=== PATIENT | male | born 1990 | race Caucasian/White ===

== ENCOUNTER 2023-09-09 19:48 | Emergency (ER) | payer MEDICAID, SELFPAY ==
[2023-09-09 19:47] VITALS: BP 135/81; PULSE 106; RESP 20; TEMP 36.6; O2SAT 95; BMI 39.8
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
[2023-09-09] MEDS: MORPHINE 4MG/ML SYRINGE 4 MG IV (19:57)
--- NOTE | 2023-09-09 19:58 | PC.NURSE ---
pt placed in traction splint per verbal order of ER MD, placed per ems and nursing staff. PMS positive and intact post application and pt notes marked pain relief.
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
--- NOTE | 2023-09-09 20:36 | PC.NURSE ---
Called report to raul REGAN at ED
--- NOTE | 2023-09-09 20:46 | PC.NURSE ---
glucose 121 upon arrival
[2023-09-09 20:51] VITALS: BP 135/79; PULSE 110; RESP 20; TEMP 36.7; O2SAT 94
== END 2023-09-09 20:54 | disposition other institution (70) ==
PROVIDERS: Emergency Provider Student in an Organized Health Care Education/Training Program
DX: S72.352A Displaced comminuted fracture of shaft of left femur, initial encounter for closed fracture (principal); S01.81XA Laceration without foreign body of other part of head, initial encounter; V49.50XA Passenger injured in collision with unspecified motor vehicles in traffic accident, initial encounter
CPT/HCPCS: 71045; 72170; 73551; 96374; 99291

== ENCOUNTER 2024-12-31 17:29 | Emergency (ER) | payer MEDICAID, SELFPAY ==
[2024-12-31 17:41] VITALS: BP 125/95; PULSE 109; O2SAT 99
[2024-12-31 17:44] VITALS: BP 125/95; PULSE 93; RESP 20; TEMP 37; O2SAT 97; BMI 43.6
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
[2024-12-31] MEDS: IBUPROFEN 600 MG TABLET PO (17:59)
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
[2024-12-31 18:24] LABS: Basophils % 0.2 % (0.1-2.0); Eosinophils # 0.2 Kmm3 (0.0-0.4); Eosinophils % 2.3 % (0.1-12.0); Hematocrit 43.1 % (42.0-52.0); Hemoglobin 14.1 g/dL (14.1-18.0); Immature Granulocytes # 0.03 10^3uL; Immature Granulocytes % 0.3 %; Lymphocytes # 2.2 K/mm3 (0.7-4.5); Lymphocytes % 22.7 % (10-50); Mean Corpuscular HGB Conc 32.7 g/dL (31.8-35.4); Mean Corpuscular Hemoglobin 30.1 pg (27.0-31.2); Mean Corpuscular Volume 92.1 fl (80-94); Monocytes # 1.2 K/mm3 (0.1-1.0); Monocytes % 12.2 % (1.7-9.3); Neutrophils # 6.2 K/mm3 (1.8-7.8); Neutrophils % 62.3 % (37.0-80.0); Nucleated Red Blood Cells # 0 10^3/uL; Nucleated Red Blood Cells % 0 %; Platelet Count 248 K/mm3 (142-424); Red Blood Count 4.68 M/mm3 (4.60-6.20); Red Cell Distribution Width 13.2 % (11.5-17.5); White Blood Count 9.9 K/mm3 (4.8-10.8)
[2024-12-31 18:46] LABS: Alanine Aminotransferase 35 U/L (12-78); Albumin Level 3.8 g/dl (3.5-5.0); Albumin/Globulin Ratio 1.6 (1.1-1.8); Alkaline Phosphatase 86 U/L (38-126); Anion Gap 10.1 mEq/L (5-15); Aspartate Amino Transferase 26 U/L (17-59); Bilirubin,Total 0.6 mg/dl (0.2-1.3); Blood Urea Nitrogen 8 mg/dl (9-20); Calcium 8.9 mg/dl (8.4-10.2); Carbon Dioxide 26 mmol/L (22.0-30.0); Chloride 103 mmol/L (98-107); Creatinine Clearance Estimated 171 mL/min (50-200); Estimated Glomerular Filt Rate 128 ml/min (>60); GFR (African American) 155 ML/MIN (>60); Globulin 2.4 g/dL (1.3-3.2); Glucose 95 mg/dl (74-100); Potassium 4.1 mmoL/L (3.5-5.1); Sodium 135 mmol/L (136-145); Total Protein,Serum 6.2 g/dl (6.3-8.2)
[2024-12-31] MEDS: SODIUM CHLORIDE 0.9% 10ML SYR (RAD ONLY) 10 ML IV (19:03)
[2024-12-31] MEDS: 0.9 % SODIUM CHLORIDE 50 ML VIAL 100 ML IV (19:03)
[2024-12-31] MEDS: IOPAMIDOL-370 (76%);100ML BOTTLE 120 ML IV (19:03)
[2024-12-31 19:07] LABS: HIV Combo NEGATIVE (Negative)
[2024-12-31 19:15] LABS: Hepatitis C Ab Qual. W/ RFX NEGATIVE (Negative)
[2024-12-31 19:31] VITALS: BP 133/74; PULSE 79; O2SAT 99
[2024-12-31 21:30] VITALS: PULSE 102; O2SAT 100
--- NOTE | 2024-12-31 21:36 | PC.NURSE ---
Spoke with transfer center to get an update. they have not got to our case just yet. Dr. Beck notified at this time.
[2024-12-31] MEDS: MORPHINE 4MG/ML SYRINGE 4 MG IV (21:46)
[2024-12-31] MEDS: ONDANSETRON 4MG/2ML VIAL 4 MG IV (21:46)
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
[2024-12-31 21:58] VITALS: BP 146/87; PULSE 98; O2SAT 98
--- NOTE | 2024-12-31 22:01 | PC.NURSE ---
Report given to Michelle REGAN at [facility]
[2024-12-31 22:05] VITALS: BP 146/87; PULSE 76; RESP 18; TEMP 36.7; O2SAT 98
--- NOTE | 2024-12-31 22:05 | PC.NURSE ---
Called EMS about transfer at this time.
== END 2024-12-31 22:59 | disposition short-term general hospital (02) ==
PROVIDERS: Physician Assistant; Emergency Provider Emergency Medicine
DX: S82.131A Displaced fracture of medial condyle of right tibia, initial encounter for closed fracture (principal); M79.605 Pain in left leg; Z96.7 Presence of other bone and tendon implants; V29.99XA Rider (driver) (passenger) of other motorcycle injured in unspecified traffic accident, initial encounter
CPT/HCPCS: 72170; 73552; 73562; 73590; 73706; 80053; 85025; 86803; 87389; 96374; 96375; 99285; J2270; J2405; Q9967

== ENCOUNTER 2025-01-15 18:23 | Emergency (ER) | payer MEDICAID, SELFPAY ==
[2025-01-15 18:43] VITALS: BP 121/70; PULSE 130; RESP 20; TEMP 37.1; O2SAT 97; BMI 42.3
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
--- NOTE | 2025-01-15 18:54 | XR_ITS ---
PROCEDURE INFORMATION: Exam: XR Left Tibia and Fibula Exam date and time: 01/15/2025 7:06 PM Age: 34 years old Clinical indication: Other: Postop infection; Additional info: Postop wound infection tibial plateau TECHNIQUE: Imaging protocol: Radiologic exam of the left tibia and fibula. Views: 2 views. COMPARISON: CT ANGIO LE LT 12/31/2024 7:02 PM FINDINGS: Bones/joints: Partially visualized antegrade intramedullary femoral karmen with 2 distal interlocking screws. Medial and lateral plate and screw fixation of the proximal tibia and tibial plateau, with minimally-displaced fracture lucencies in the proximal tibia and tibial plateau. Pin tract within the distal tibial diaphysis. Soft tissues: Increased density and swelling of the medial knee and medial proximal leg subcutaneous tissues, likely edema and/or cellulitis. No soft tissue gas or radiopaque foreign body. IMPRESSION: 1. Increased density and swelling of the medial knee and medial proximal leg subcutaneous tissues, likely edema and/or cellulitis. No soft tissue gas or radiopaque foreign body. 2. Medial and lateral plate and screw fixation of the proximal tibia and tibial plateau, with minimally-displaced fracture lucencies in the proximal tibia and tibial plateau.
[2025-01-15 19:00] VITALS: BP 118/77; PULSE 117; O2SAT 96
--- NOTE | 2025-01-15 19:12 | PC.NURSE ---
Called [facility] for a transfer to , said they would call back
[2025-01-15 19:13] LABS: Basophils % 0.2 % (0.1-2.0); Eosinophils # 0.1 Kmm3 (0.0-0.4); Eosinophils % 0.7 % (0.1-12.0); Hematocrit 42.3 % (42.0-52.0); Immature Granulocytes # 0.14 10^3uL; Immature Granulocytes % 0.7 %; Lymphocytes # 1.9 K/mm3 (0.7-4.5); Lymphocytes % 9.5 % (10-50); Mean Corpuscular HGB Conc 33.1 g/dL (31.8-35.4); Mean Corpuscular Hemoglobin 30.1 pg (27.0-31.2); Mean Platelet Volume 9.6 fl (7.4-10.4); Monocytes # 1.2 K/mm3 (0.1-1.0); Neutrophils # 16.6 K/mm3 (1.8-7.8); Neutrophils % 82.9 % (37.0-80.0); Nucleated Red Blood Cells # 0 10^3/uL; Nucleated Red Blood Cells % 0 %; Platelet Count 442 K/mm3 (142-424); Red Blood Count 4.65 M/mm3 (4.60-6.20); Red Cell Distribution Width 13.1 % (11.5-17.5); Red Cell Distribution Width-SD 43.8 fL
[2025-01-15 19:21] LABS: Lactic Acid 1.5 mmol/L (0.7-2.1)
[2025-01-15] MEDS: PIPERCILLIN/TAZO 3.375 GM in 0.9 % SODIUM CHLORIDE 50 ML IV (19:21)
[2025-01-15] MEDS: KETOROLAC 30MG/ML VIAL 15 MG IV (19:21)
[2025-01-15 19:22] LABS: Alanine Aminotransferase 61 U/L (12-78); Albumin Level 4.1 g/dl (3.5-5.0); Albumin/Globulin Ratio 1.3 (1.1-1.8); Alkaline Phosphatase 117 U/L (38-126); Anion Gap 12.7 mEq/L (5-15); Aspartate Amino Transferase 35 U/L (17-59); Bilirubin,Total 0.6 mg/dl (0.2-1.3); Blood Urea Nitrogen 14 mg/dl (9-20); Calcium 9.1 mg/dl (8.4-10.2); Carbon Dioxide 27 mmol/L (22.0-30.0); Chloride 98 mmol/L (98-107); Creatinine Clearance Estimated 171 mL/min (50-200); Estimated Glomerular Filt Rate 128 ml/min (>60); GFR (African American) 155 ML/MIN (>60); Globulin 3.2 g/dL (1.3-3.2); Glucose 143 mg/dl (74-100); Potassium 4.7 mmoL/L (3.5-5.1); Sodium 133 mmol/L (136-145); Total Protein,Serum 7.3 g/dl (6.3-8.2)
[2025-01-15] MEDS: ACETAMINOPHEN 500MG TAB 1000 MG PO (19:22)
[2025-01-15 19:23] LABS: White Blood Count 20.1 K/mm3 (4.8-10.8)
[2025-01-15 19:27] LABS: C-Reactive Protein 67.9 mg/L (0-4)
[2025-01-15 19:31] VITALS: BP 115/76; PULSE 121; O2SAT 97
[2025-01-15 19:41] LABS: Procalcitonin 0.107 ng/mL (0.0-2.0)
[2025-01-15 19:45] LABS: Erythrocyte Sedimentation Rate 17 mm/hr (0-15)
[2025-01-15] MEDS: VANCOMYCIN HCL 2,250 MG in 0.9 % SODIUM CHLORIDE 250 ML 125 MG IV (19:56)
--- NOTE | 2025-01-15 19:56 | PC.NURSE ---
Transport Ambulance called.
[2025-01-15 20:00] VITALS: BP 134/80; PULSE 118; O2SAT 97
[2025-01-15 20:15] VITALS: PULSE 107; O2SAT 97
[2025-01-15 20:21] VITALS: BP 118/74; PULSE 108; RESP 16; TEMP 38.5; O2SAT 98
== END 2025-01-15 20:23 | disposition short-term general hospital (02) ==
PROVIDERS: Physician Assistant; Emergency Provider Student in an Organized Health Care Education/Training Program
DX: L97.929 Non-pressure chronic ulcer of unspecified part of left lower leg with unspecified severity (principal); T81.49XA Infection following a procedure, other surgical site, initial encounter; F17.210 Nicotine dependence, cigarettes, uncomplicated
CPT/HCPCS: 73590; 80053; 83605; 84145; 85025; 85651; 86140; 87040; 96361; 96365; 96366; 96375; 99291; J1885; J2543; J3370; J7030; J7050

== ENCOUNTER 2025-01-27 10:46 | Outpatient (CLI) | payer MEDICAID, SELFPAY ==
--- OUTSIDE RECORDS SUMMARY | 2024-12-31 23:53 | XMS_ITS | Encounter Summary ---
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 AM EDT OPTIMAL INR RANGES FOR PATIENT ON ORAL ANTICOAGULANT THERAPY Prevention of venous thromboembolism INR 2.0 to 3.0 In patients with heart disease: Atrial fibrillation INR 2.0 to 3.0 Valvular heart disease INR 2.0 to 3.0 Tissue heart valves INR 2.0 to 3.0 Mechanical prosthetic valves INR 2.5 to 3.5 Prevention of recurrent ME INR 2.5 to 3.5 us Miguel Perera MD LAB BLOOD ORDERABLES Final Resu lt [facility] [address] [place] [address] * (ABNORMAL) CMP (01/01/2025 12:35 AM EDT) Glucose, Plasma 110(H) 74 - 99 mg/dL 01/01/2025 1:07 AM EDT [facility] BUN, Plasma 6(L) 7 - 21 mg/dL 01/01/2025 1:07 AM EDT [facility] Creatinine, Plasma 0.72 0.70 - 1.20 mg/dL 01/01/2025 1:07 AM EDT [facility] BUN/Creatinine Ratio 8 01/01/2025 1:07 AM EDT [facility] Sodium, Plasma 136 136 - 145 mmol/L 01/01/2025 1:07 AM EDT [facility] Potassium, Plasma 3.7 3.6 - 4.9 mmol/L 01/01/2025 1:07 AM EDT [facility] Chloride, Plasma 101 97 - 107 mmol/L 01/01/2025 1:07 AM EDT [facility] CO2, Plasma 24 22 - 29 mmol/L 01/01/2025 1:07 AM EDT [facility] Anion Gap 11 6 - 16 mmol/L 01/01/2025 1:07 AM EDT [facility] Total Calcium, Plasma 8.6(L) 8.9 - 10.2 mg/dL 01/01/2025 1:07 AM EDT [facility] Total Protein 6.7 6.3 - 7.9 g/dL 01/01/2025 1:07 AM EDT [facility] Albumin, Plasma 3.8 3.5 - 5.2 g/dL 01/01/2025 1:07 AM EDT [facility] AST, Plasma 17 10 - 50 U/L 01/01/2025 1:07 AM EDT [facility] ALT, Plasma 33 10 - 50 U/L 01/01/2025 1:07 AM EDT [facility] Alkaline Phosphatase, Plasma 98 40 - 115 U/L 01/01/2025 1:07 AM EDT [facility] Total Bilirubin, Plasma 0.4 0.2 - 1.1 mg/dL 01/01/2025 1:07 AM EDT [facility] eGFRcr 122.2 mL/min/1.7 3m*2 01/01/2025 1:07 AM EDT [facility] Comment:Reported eGFRcr in m L/min/1.73m2 is based the CKD-EPI 2020 equation that does not use a race coefficient. Blood Venous blood specimen / Unknown Venipuncture / Unknown 01/01/2025 12:35 AM EDT 01/01/2025 12:41 AM EDT us Miguel Perera MD LAB BLOOD ORDERABLES Final Resu lt [facility] [address] [place] [address] * (ABNORMAL) CBC w/diff (01/01/2025 12:35 AM EDT) WBC Count 9.24 3.70 - 10.30 10*3/uL LAB HEMATOLOGY METHOD 01/01/2025 12:45 AM EDT [facility] RBC Count 4.75 4.60 - 6.10 10*6/uL LAB HEMATOLOGY METHOD 01/01/2025 12:45 AM EDT [facility] HGB 14.2 13.7 - 17.5 g/dL LAB HEMATOLOGY METHOD 01/01/2025 12:45 AM EDT [facility] HCT 43.1 40.0 - 51.0 % LAB HEMATOLOGY METHOD 01/01/2025 12:45 AM EDT [facility] Platelet Count 229 155 - 369 10*3/uL LAB HEMATOLOGY METHOD 01/01/2025 12:45 AM EDT [facility] MCV 91 79 - 98 fL LAB HEMATOLOGY METHOD 01/01/2025 12:45 AM EDT [facility] MCH 29.9 26.0 - 32.0 pg LAB HEMATOLOGY METHOD 01/01/2025 12:45 AM EDT [facility] MCHC 32.9 30.7 - 35.5 g/dL LAB HEMATOLOGY METHOD 01/01/2025 12:45 AM EDT [facility] RDW 13.2 11.5 - 14.5 % LAB HEMATOLOGY METHOD 01/01/2025 12:45 AM EDT [facility] MPV 10.8 8.8 - 12.5 fL LAB HEMATOLOGY METHOD 01/01/2025 12:45 AM EDT [facility] nRBC 0.0 <=0.0 per 100 WBCs LAB HEMATOLOGY METHOD 01/01/2025 12:45 AM EDT [facility] Differential Type Automated LAB HEMATOLOGY METHOD 01/01/2025 12:45 AM EDT [facility] Neutrophils % 66 % LAB HEMATOLOGY METHOD 01/01/2025 12:45 AM EDT [facility] Lymphocytes % 21 % LAB HEMATOLOGY METHOD 01/01/2025 12:45 AM EDT [facility] Monocytes % 10 % LAB HEMATOLOGY METHOD 01/01/2025 12:45 AM EDT [facility] Eosinophils % 3 % LAB HEMATOLOGY METHOD 01/01/2025 12:45 AM EDT [facility] Basophils % 0 % LAB HEMATOLOGY METHOD 01/01/2025 12:45 AM EDT [facility] Immature Granulocytes % 0 % LAB HEMATOLOGY METHOD 01/01/2025 12:45 AM EDT [facility] Neutrophils Absolute 6.03 1.60 - 6.10 10*3/uL LAB HEMATOLOGY METHOD 01/01/2025 12:45 AM EDT [facility] Lymphocytes Absolute 1.95 1.20 - 3.90 10*3/uL LAB HEMATOLOGY METHOD 01/01/2025 12:45 AM EDT [facility] Monocytes Absolute 0.95(H) 0.30 - 0.90 10*3/uL LAB HEMATOLOGY METHOD 01/01/2025 12:45 AM EDT [facility] Eosinophils Absolute 0.25 0.00 - 0.50 10*3/uL LAB HEMATOLOGY METHOD 01/01/2025 12:45 AM EDT [facility] Basophils Absolute 0.03 0.00 - 0.10 10*3/uL LAB HEMATOLOGY METHOD 01/01/2025 12:45 AM EDT [facility] Immature Granulocytes Absolute 0.03 0.00 - 0.06 10*3/uL LAB HEMATOLOGY METHOD 01/01/2025 12:45 AM EDT [facility] Blood Venous blood specimen / Unknown Venipuncture / Unknown 01/01/2025 12:35 AM EDT 01/01/2025 12:41 AM EDT Narrative [facility] - 01/01/2025 12:45 AM EDT Therapeutic decision making should be based on absolute values, rather than percentages. us Miguel Perera MD LAB BLOOD ORDERABLES Final Resu lt Performing Organization Address [facility]/ZIP Co de Phone Number [facility] [address] [place] [address] * Light Green Top (01/01/2025 12:27 AM EDT) Extra Hold for add-ons 01/01/2025 3:02 AM EDT [facility] Comment:Auto resulted. Blood Venous blood specimen / Unknown 01/01/2025 12:27 AM EDT 01/01/2025 12:42 AM EDT us Miguel Perera MD LAB BLOOD ORDERABLES Final Resu lt Performing Organization Address City/[facility]/ZIP Co de Phone Number [facility] [address] [place] [address] * EKG now - STAT (adult) (01/01/2025 12:26 AM EDT) EKG DIAGNOSIS CLASS Normal MUSE ECG Ventricular Rate 81 BPM MUSE ECG Atrial Rate 81 BPM MUSE ECG WY Interval 118 ms MUSE ECG QRSD Interval 106 ms MUSE ECG QT Interval 372 ms MUSE ECG QTC Interval 432 ms MUSE ECG P Gill 55 degrees MUSE ECG R Gill 54 degrees MUSE ECG T Wave Gill 48 degrees MUSE ECG Diagnosis Normal sinus rhythm MUSE ECG Diagnosis Normal ECG MUSE ECG Diagnosis MUSE ECG Diagnosis Confirmed by Johnathan Black ([id number]) on 01/01/2025 9:03:10 AM MUSE ECG 01/01/2025 [...] needed, Starting on Mon01/01/25 at 0652, Until Mon01/02/25 at 1409, Routine, respiratory depression, every 2 [...] PRN, Starting on Mon01/01/25 at 0652, Until Nseha 01/02/25 at 1409, Routine, severe pain, pain [...] 0025, STAT 0037 (Given - Provider: Benedict Castillo RN)0042 (Override Pull - Provider: Benedict Castillo RN) acetaminophen (Tylenol) tablet 1,000 mg 1,000 mg, Oral, Every 6 hours, First dose on Mon01/01/25 at 0655, Until Discontinued, Routine 0711 (Given - Provider: Loreta Marvin RN)1119 (OCT Hold - Provider: Automatic Transfer Provider - Reason: Patient in procedure)1255 (Dose Auto Held - Provider: Automatic Transfer Provider)1342 (MAR Unhold - Provider: Naty Castellanos RN)1345 (Given - Provider: Naty Castellanos [...] 3 g, Intravenous, Once, 1 dose, On Mon01/02/25 at 1200, Routine 1200 (Canceled Entry - [...] Castillo RN)0042 (Override Pull - Provider: Benedict Castillo RN) nicotine (Nicoderm CQ) 21 MG/24HR patch 1 patch 1 patch, Transdermal, Daily, First dose on Mon01/01/25 at 0230, Until Discontinued, Routine 0218 (Medication Applied - Provider: Benedict Castillo, SHEREEN)111 (OCT Hold - Provider: Automatic Transfer Provider - Reason: Patient in procedure)1342 ([facility] Unhold - Provider: Naty Castellanos, SHEREEN) 022 (Medication Applied - Provider: Josefina Castaneda, SHEREEN) [...] Routine 0826 (Not Given - Provider: Loreta Marvin, SHEREEN - Reason: NPO)111 ([facility] Hold - Provider: Automatic Transfer Provider - Reason: Patient in procedure)134 ([facility] Unhold - Provider: Naty Castellanos, SHEREEN) 0800 (Given - Provider: Constance Castañeda, SHEREEN) Povidone-Iodine 5 % swab solution 1 Application (COMPLETED) Nasal, Once, 1 dose, On Mon01/01/25 at 0910, Routine 0918 (Given - Provider: Genoveva Branham, SHEREEN) senna-docusate (Hailey-Colace) 8.6-50 MG per tablet 1 tablet 1 tablet, Oral, 2 times daily, First dose on Mon01/01/25 at 0900, Until Discontinued, Routine 0822 (Given - Provider: Loreta Marvin, SHEREEN)111 ([facility] Hold - Provider: Automatic Transfer Provider - Reason: Patient in procedure)1342 ([facility] Unhold - Provider: Naty Castellanos, SHEREEN)2027 (Given - Provider: Josefina Castaneda, SHEREEN) 0800 (Given - Provider: Constance Castañeda, SHEREEN) sodium chloride 0.9 % flush 10 mL (CANCELED)(Linked Group 1) 10 mL, Intravenous, Every 12 hours, First dose on Mon01/01/25 at 0910, Until Discontinued, Routine, Holding - Preprocedure 0918 (Given - Provider: Genoveva Branham, SHEREEN)1119 ([facility] Hold - Provider: Automatic Transfer Provider - Reason: Patient in procedure)1342 ([facility] Unhold - Provider: Naty Castellanos RN) sodium chloride 0.9 % flush 10 mL(Linked Group 2) 10 mL, Intravenous, Every 12 hours, First dose on Mon01/01/25 at 0655, Until Discontinued, Routine 0712 (Given - Provider: Loreta Marvin, SHEREEN)1119 ([facility] Hold - Provider: Automatic Transfer Provider - Reason: Patient in procedure)1342 ([facility] Unhold - Provider: Naty Castellanos, SHEREEN)1805 (Given - Provider: Teri Mares, SHEREEN) 0638 (Given - Provider: Josefina Castaneda RN) PRN Medication Order 12/31/2024 01/01/2025 01/02/2025 bisacodyl (Dulcolax) suppository 10 mg 10 mg, Rectal, Daily PRN, Starting on Mon01/01/25 at 0650, Until Sneha 01/02/25 at 1409, Routine, constipation, if no bowel movement for 72 hours and no response to magnesium hydroxide 1119 ([facility] Hold - Provider: Automatic Transfer Provider - Reason: Patient in procedure)1342 ([facility] Unhold - Provider: Naty Castellanos, SHEREEN) fentaNYL [...] Naty Castellanos RN)1410 (Given - Provider: Naty Castellanos, SHEREEN)1804 (Given - Provider: Teri Mares RN) labetalol [...] Transfer Provider - Reason: Patient in procedure)1342 ([facility] Unhold - Provider: Naty Castellanos RN) naloxone [...] 10 1345 (Given - Provider: Naty Castellanos RN) oxyCODONE (Roxicodone) immediate release tablet 5 mg 5 mg, Oral, Every 4 hours PRN, Starting on Mon01/01/25 at 0652, Until Sneha 01/02/25 at 1409, Routine, moderate pain 0822 (Given - Provider: Loreta Marvin RN)1119 (OCT Hold - Provider: Automatic Transfer Provider - Reason: Patient in procedure)1342 ([facility] Unhold - Provider: Naty Castellanos RN)1804 (Given [...] Transfer Provider - Reason: Patient in procedure)1342 ([facility] Unhold - Provider: Naty Castellanos, SHEREEN) traMADol (Ultram) tablet 50 mg 50 mg, Oral, Every 6 hours PRN, Starting on Mon01/01/25 at 0652, Until Sneha 01/02/25 at 1409, Routine, severe pain, pain not responsive to non-opioid analgesics 1119 ([facility] Hold - Provider: Automatic Transfer Provider - Reason: Patient in procedure)1342 ([facility] Unhold - Provider: Naty Castellanos RN)1345 (Given - Provider: Naty Castellanos, SHEREEN)2028 (Given - Provider: Josefina Castaneda, SHEREEN) Linked [...] doses, Starting on Mon01/01/25 at 1241, Until 01/01/25 at 1601, Routine, Recovery (Phase I only), pain score of 6-8 out of 10 documented in this encounter Additional Health Concerns Assessment Noted Time A fall risk assessment has been complete d for the patient 10/04/2023 8:38 AM EST A Body Mass Index follow-up plan has been documented for the patient 01/02/2025 10:48 AM EDT documented as of this encounter Care Teams Prize Coordinator Relationship Specialty Start Date End Date Renetta Pardo, DOBIE MAN [address] [place] [address] [place] [address] PCP - General 09/09/23 documented as of this encounter
--- OUTSIDE RECORDS SUMMARY | 2025-01-01 10:30 | XMS_ITS | Encounter Summary ---
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 Result Performing Organization Address City/[facility]/ZIP Co de Phone Number [facility] [address] [place] [address] * CT Knee Left wo IV Contrast [...] signing this report, I, the attending physician, [email or web address] I have personally reviewed the images/data for the aboveexamination(s) and agree with the final edited report. Drafted by Richard Head MD on 01/01/2025 6:05 AM Final report signed by Jeff Georges MD on 01/01/2025 6:19 AM Lawrence Hayes MD IMG CT PROCEDURES Final Resul t * Lactate, venous (01/01/2025 4:02 AM EDT) Pathologist [facility] Lactate, Venous, Whole Blood 0.7 0.5 - 2.2 mmol/L LAB HEMATOLOGY METHOD 01/01/2025 4:11 AM EDT [facility] Blood Venous blood specimen / Unknown Venipuncture / Unknown 01/01/2025 4:02 AM EDT 01/01/2025 4:10 AM EDT Dwaine HoweM.Setek LAB BLOOD ORDERABLES Final Result [facility] [address] [place] [address] * ECG Adult (01/01/2025 2:34 AM EDT) Pathologist [facility] EKG DIAGNOSIS CLASS Normal MUSE ECG Ventricular Rate 85 BPM MUSE ECG Atrial Rate 85 BPM MUSE ECG WI Interval 122 ms MUSE ECG QRSD Interval 110 ms MUSE ECG QT Interval 368 ms MUSE ECG QTC Interval 437 ms MUSE ECG P [place] 64 degrees MUSE ECG R [place] 53 degrees MUSE ECG T Wave [place] 56 degrees MUSE ECG Diagnosis Normal sinus rhythm with sinus arrhythmia MUSE ECG Diagnosis Normal ECG MUSE ECG Diagnosis MUSE ECG Diagnosis Confirmed by Johnathan Black ([id number]) on 01/01/2025 9:03:38 AM MUSE ECG 01/01/2025 2:34 AM EDT 01/01/2025 9:03 AM EDT Dwaine Howeshivani DO ECG ORDERABLES Final Resul t MUSE ECG * Lactate, venous (01/01/2025 2:33 AM EDT) Lactate, Venous, Whole Blood 0.7 0.5 - 2.2 mmol/L LAB HEMATOLOGY METHOD 01/01/2025 2:45 AM EDT [facility] Blood Venous blood specimen / Unknown Venipuncture / Unknown 01/01/2025 2:33 AM EDT 01/01/2025 2:44 AM EDT [facility] Final Result [facility] [address] [place] [address] * Type and Screen (01/01/2025 2:33 AM EDT) Pathologist [facility] ABO/Rh A Positive 01/01/2025 2:27 AM EDT BLOOD BANK Antibody Screen Negative 01/01/2025 2:27 AM EDT BLOOD BANK Specimen Expiration 01/04/2025 23:59 01/01/2025 2:27 AM EDT BLOOD BANK Blood Venous blood specimen / Unknown Venipuncture / Unknown 01/01/2025 2:33 AM EDT 01/01/2025 2:37 AM EDT [facility] TEST ORDERAB LES Final Result Performing Organization Address [facility] de Phone Number BLOOD BANK [address] [place] [address], * Prothrombin Time/INR (01/01/2025 2:33 AM EDT) Prothrombin Time 13.8 12.0 - 14.3 sec LAB COAGULATION METHOD 01/01/2025 3:07 AM EDT [facility] INR 1.1 0.9 - 1.1 LAB COAGULATION METHOD 01/01/2025 3:07 AM EDT [facility] Blood Venous blood specimen / Unknown Venipuncture / Unknown 01/01/2025 2:33 AM EDT 01/01/2025 2:40 AM EDT Narrative [facility] - 01/01/2025 3:07 AM EDT OPTIMAL INR RANGES FOR PATIENT ON ORAL ANTICOAGULANT THERAPY Prevention of venous thromboembolism INR 2.0 to 3.0 In patients with heart disease: Atrial fibrillation INR 2.0 to 3.0 Valvular heart disease INR 2.0 to 3.0 Tissue heart valves INR 2.0 to 3.0 Mechanical prosthetic valves INR 2.5 to 3.5 Prevention of recurrent AR INR 2.5 to 3.5 Dwaine Das LAB BLOOD ORDERABLES Final Result [facility] [address] [place] [address] * (ABNORMAL) Basic Metabolic Panel, Plasma (01/01/2025 2:33 AM EDT) Glucose, Plasma 124(H) 74 - 99 mg/dL 01/01/2025 3:11 AM EDT [facility] BUN, Plasma 6(L) 7 - 21 mg/dL 01/01/2025 3:11 AM EDT [facility] Creatinine, Plasma 0.65(L) 0.70 - 1.20 mg/dL 01/01/2025 3:11 AM EDT [facility] BUN/Creatinine Ratio 9 01/01/2025 3:11 AM EDT [facility] Sodium, Plasma 136 136 - 145 mmol/L 01/01/2025 3:11 AM EDT [facility] Potassium, Plasma 3.7 3.6 - 4.9 mmol/L 01/01/2025 3:11 AM EDT [facility] Chloride, Plasma 103 97 - 107 mmol/L 01/01/2025 3:11 AM EDT [facility] CO2, Plasma 25 22 - 29 mmol/L 01/01/2025 3:11 AM EDT [facility] Anion Gap 8 6 - 16 mmol/L 01/01/2025 3:11 AM EDT [facility] Total Calcium, Plasma 8.7(L) 8.9 - 10.2 mg/dL 01/01/2025 3:11 AM EDT [facility] eGFRcr 126.0 mL/min/1.7 3m*2 01/01/2025 3:11 AM EDT [facility] Comment:Reported eGFRcr in m L/min/1.73m2 is based the CKD-EPI 2020 equation that does not use a race coefficient. Blood Venous blood specimen / Unknown Venipuncture / Unknown 01/01/2025 2:33 AM EDT 01/01/2025 2:44 AM EDT Dwaine Das LAB BLOOD ORDERABLES Final Result [facility] [address] [place] [address] * (ABNORMAL) CBC W/O Differential (01/01/2025 2:33 AM EDT) WBC Count 8.98 3.70 - 10.30 10*3/uL LAB HEMATOLOGY METHOD 01/01/2025 2:42 AM EDT [facility] RBC Count 4.56(L) 4.60 - 6.10 10*6/uL LAB HEMATOLOGY METHOD 01/01/2025 2:42 AM EDT [facility] HGB 13.6(L) 13.7 - 17.5 g/dL LAB HEMATOLOGY METHOD 01/01/2025 2:42 AM EDT [facility] HCT 41.2 40.0 - 51.0 % LAB HEMATOLOGY METHOD 01/01/2025 2:42 AM EDT [facility] Platelet Count 223 155 - 369 10*3/uL LAB HEMATOLOGY METHOD 01/01/2025 2:42 AM EDT [facility] MCV 90 79 - 98 fL LAB HEMATOLOGY METHOD 01/01/2025 2:42 AM EDT [facility] MCH 29.8 26.0 - 32.0 pg LAB HEMATOLOGY METHOD 01/01/2025 2:42 AM EDT [facility] MCHC 33.0 30.7 - 35.5 g/dL LAB HEMATOLOGY METHOD 01/01/2025 2:42 AM EDT [facility] RDW 13.2 11.5 - 14.5 % LAB HEMATOLOGY METHOD 01/01/2025 2:42 AM EDT [facility] MPV 10.5 8.8 - 12.5 fL LAB HEMATOLOGY METHOD 01/01/2025 2:42 AM EDT [facility] nRBC 0.0 <=0.0 per 100 WBCs LAB HEMATOLOGY METHOD 01/01/2025 2:42 AM EDT [facility] Blood Venous blood specimen / Unknown Venipuncture / Unknown 01/01/2025 2:33 AM EDT 01/01/2025 2:40 AM EDT Dwaine Das DO LAB BLOOD ORDERABLES Final Result [facility] [address] [place] [address] * XR Hip Left 2 or 3 [...] signing this report, I, the attending physician, [email or web address] I have personally reviewed the images/data for the aboveexamination(s) and agree with the final edited report. Drafted by Richard Head MD on 01/01/2025 2:10 AM Final report signed by Jeff Georges MD on 01/01/2025 2:47 AM Miguel Das MD IMG XR PROCEDURES Final Result * Creatine Kinase (CK), Total (01/01/2025 12:35 AM EDT) Creatine Kinase, Plasma 65 49 - 320 U/L 01/01/2025 2:56 AM EDT [facility] Blood Venous blood specimen / Unknown Venipuncture / Unknown 01/01/2025 12:35 AM EDT 01/01/2025 12:41 AM EDT Miguel Das MD LAB BLOOD ORDERABLES Final Resu lt [facility] [address] [place] [address] * ED HIV 1/2 Antibody/Antigen Screen w/Reflex to HIV 1/2 Differentiation (01/01/2025 12:35 AM EDT) HIV 1 & 2 Antibody/Antigen Screen Non Reactive Non Reactive 01/01/2025 1:33 AM EDT [facility] Comment:Screening for HIV 1 & 2 antibodies, and P24 antigen is NONREACTIVE. No confirmatory testing is required. Blood Venous blood specimen / Unknown Venipuncture / Unknown 01/01/2025 12:35 AM EDT 01/01/2025 12:52 AM EDT us Miguel Das MD LAB BLOOD ORDERABLES Final Resu lt Performing Organization Address City/[facility]/[place] [address] * Hepatitis C Antibody - ED (01/01/2025 12:35 AM EDT) Hepatitis C Antibody Negative Negative 01/01/2025 1:33 AM EDT [facility] Blood Venous blood specimen / Unknown Venipuncture / Unknown 01/01/2025 12:35 AM EDT 01/01/2025 12:52 AM EDT Result Tobias Das MD LAB BLOOD ORDERABLES Final Resu lt Performing Organization Address [facility] [place] [address] * PT-INR (01/01/2025 12:35 AM EDT) Prothrombin Time 14.1 12.0 - 14.3 sec 01/01/2025 1:00 AM EDT [facility] INR 1.1 0.9 - 1.1 01/01/2025 1:00 AM EDT [facility] Blood Venous blood specimen / Unknown Venipuncture / Unknown 01/01/2025 12:35 AM EDT 01/01/2025 12:41 AM EDT Narrative [facility] - 01/01/2025 1:00 AM EDT OPTIMAL INR RANGES FOR PATIENT ON ORAL ANTICOAGULANT THERAPY Prevention of venous thromboembolism INR 2.0 to 3.0 In patients with heart disease: Atrial fibrillation INR 2.0 to 3.0 Valvular heart disease INR 2.0 to 3.0 Tissue heart valves INR 2.0 to 3.0 Mechanical prosthetic valves INR 2.5 to 3.5 Prevention of recurrent AR INR 2.5 to 3.5 Result Tobias Das MD LAB BLOOD ORDERABLES Final Resu lt Performing Organization Address City/[facility]/ZIP Co de Phone Number [address] [address] * (ABNORMAL) CMP (01/01/2025 12:35 AM EDT) Glucose, Plasma 110(H) 74 - 99 mg/dL 01/01/2025 1:07 AM EDT [facility] BUN, Plasma 6(L) 7 - 21 mg/dL 01/01/2025 1:07 AM EDT [facility] Creatinine, Plasma 0.72 0.70 - 1.20 mg/dL 01/01/2025 1:07 AM EDT [facility] BUN/Creatinine Ratio 8 01/01/2025 1:07 AM EDT [facility] Sodium, Plasma 136 136 - 145 mmol/L 01/01/2025 1:07 AM EDT [facility] Potassium, Plasma 3.7 3.6 - 4.9 mmol/L 01/01/2025 1:07 AM EDT [facility] Chloride, Plasma 101 97 - 107 mmol/L 01/01/2025 1:07 AM EDT [facility] CO2, Plasma 24 22 - 29 mmol/L 01/01/2025 1:07 AM EDT [facility] Anion Gap 11 6 - 16 mmol/L 01/01/2025 1:07 AM EDT [facility] Total Calcium, Plasma 8.6(L) 8.9 - 10.2 mg/dL 01/01/2025 1:07 AM EDT [facility] Total Protein 6.7 6.3 - 7.9 g/dL 01/01/2025 1:07 AM EDT [facility] Albumin, Plasma 3.8 3.5 - 5.2 g/dL 01/01/2025 1:07 AM EDT [facility] AST, Plasma 17 10 - 50 U/L 01/01/2025 1:07 AM EDT [facility] ALT, Plasma 33 10 - 50 U/L 01/01/2025 1:07 AM EDT [facility] Alkaline Phosphatase, Plasma 98 40 - 115 U/L 01/01/2025 1:07 AM EDT [facility] Total Bilirubin, Plasma 0.4 0.2 - 1.1 mg/dL 01/01/2025 1:07 AM EDT [facility] eGFRcr 122.2 mL/min/1.7 3m*2 01/01/2025 1:07 AM EDT [facility] Comment:Reported eGFRcr in m L/min/1.73m2 is based the CKD-EPI 2020 equation that does not use a race coefficient. Blood Venous blood specimen / Unknown Venipuncture / Unknown 01/01/2025 12:35 AM EDT 01/01/2025 12:41 AM EDT us Miguel Das MD LAB BLOOD ORDERABLES Final Resu lt [facility] [address] [place] [address] * (ABNORMAL) CBC w/diff (01/01/2025 12:35 AM EDT) WBC Count 9.24 3.70 - 10.30 10*3/uL LAB HEMATOLOGY METHOD 01/01/2025 12:45 AM EDT [facility] RBC Count 4.75 4.60 - 6.10 10*6/uL LAB HEMATOLOGY METHOD 01/01/2025 12:45 AM EDT [facility] HGB 14.2 13.7 - 17.5 g/dL LAB HEMATOLOGY METHOD 01/01/2025 12:45 AM EDT [facility] HCT 43.1 40.0 - 51.0 % LAB HEMATOLOGY METHOD 01/01/2025 12:45 AM EDT [facility] Platelet Count 229 155 - 369 10*3/uL LAB HEMATOLOGY METHOD 01/01/2025 12:45 AM EDT [facility] MCV 91 79 - 98 fL LAB HEMATOLOGY METHOD 01/01/2025 12:45 AM EDT [facility] MCH 29.9 26.0 - 32.0 pg LAB HEMATOLOGY METHOD 01/01/2025 12:45 AM EDT [facility] MCHC 32.9 30.7 - 35.5 g/dL LAB HEMATOLOGY METHOD 01/01/2025 12:45 AM EDT [facility] RDW 13.2 11.5 - 14.5 % LAB HEMATOLOGY METHOD 01/01/2025 12:45 AM EDT [facility] MPV 10.8 8.8 - 12.5 fL LAB HEMATOLOGY METHOD 01/01/2025 12:45 AM EDT [facility] nRBC 0.0 <=0.0 per 100 WBCs LAB HEMATOLOGY METHOD 01/01/2025 12:45 AM EDT [facility] Differential Type Automated LAB HEMATOLOGY METHOD 01/01/2025 12:45 AM EDT [facility] Neutrophils % 66 % LAB HEMATOLOGY METHOD 01/01/2025 12:45 AM EDT [facility] Lymphocytes % 21 % LAB HEMATOLOGY METHOD 01/01/2025 12:45 AM EDT [facility] Monocytes % 10 % LAB HEMATOLOGY METHOD 01/01/2025 12:45 AM EDT [facility] Eosinophils % 3 % LAB HEMATOLOGY METHOD 01/01/2025 12:45 AM EDT [facility] Basophils % 0 % LAB HEMATOLOGY METHOD 01/01/2025 12:45 AM EDT [facility] Immature Granulocytes % 0 % LAB HEMATOLOGY METHOD 01/01/2025 12:45 AM EDT [facility] Neutrophils Absolute 6.03 1.60 - 6.10 10*3/uL LAB HEMATOLOGY METHOD 01/01/2025 12:45 AM EDT [facility] Lymphocytes Absolute 1.95 1.20 - 3.90 10*3/uL LAB HEMATOLOGY METHOD 01/01/2025 12:45 AM EDT [facility] Monocytes Absolute 0.95(H) 0.30 - 0.90 10*3/uL LAB HEMATOLOGY METHOD 01/01/2025 12:45 AM EDT [facility] Eosinophils Absolute 0.25 0.00 - 0.50 10*3/uL LAB HEMATOLOGY METHOD 01/01/2025 12:45 AM EDT [facility] Basophils Absolute 0.03 0.00 - 0.10 10*3/uL LAB HEMATOLOGY METHOD 01/01/2025 12:45 AM EDT [facility] Immature Granulocytes Absolute 0.03 0.00 - 0.06 10*3/uL LAB HEMATOLOGY METHOD 01/01/2025 12:45 AM EDT [facility] Blood Venous blood specimen / Unknown Venipuncture / Unknown 01/01/2025 12:35 AM EDT 01/01/2025 12:41 AM EDT Narrative [facility] - 01/01/2025 12:45 AM EDT Therapeutic decision making should be based on absolute values, rather than percentages. us Miguel Das MD LAB BLOOD ORDERABLES Final Resu lt Performing Organization Address [facility]/ZIP Co de Phone Number [facility] [address] [place] [address] * Light Green Top (01/01/2025 12:27 AM EDT) Extra Hold for add-ons 01/01/2025 3:02 AM EDT [facility] Comment:Auto resulted. Blood Venous blood specimen / Unknown 01/01/2025 12:27 AM EDT 01/01/2025 12:42 AM EDT us Miguel Das MD LAB BLOOD ORDERABLES Final Resu lt Performing Organization Address [facility] Co de Phone Number [facility] [address] [place] [address] * EKG now - STAT (adult) (01/01/2025 12:26 AM EDT) EKG DIAGNOSIS CLASS Normal MUSE ECG Ventricular Rate 81 BPM MUSE ECG Atrial Rate 81 BPM MUSE ECG WI Interval 118 ms MUSE ECG QRSD Interval 106 ms MUSE ECG QT Interval 372 ms MUSE ECG QTC Interval 432 ms MUSE ECG P [place] 55 degrees MUSE ECG R [place] 54 degrees MUSE ECG T Wave [place] 48 degrees MUSE ECG Diagnosis Normal sinus rhythm MUSE ECG Diagnosis Normal ECG MUSE ECG Diagnosis MUSE ECG Diagnosis Confirmed by Johnathan Black ([id number]) on 01/01/2025 9:03:10 AM MUSE ECG 01/01/2025 12:2 6 AM EDT 01/01/2025 9:03 AM EDT us Miguel Das MD ECG ORDERABLES Final Result Performing Organization Address [facility] Co de Phone Number MUSE ECG documented in this encounter Visit [...] Sneha 01/02/25 at 1409, Routine, mild pain Given 01/01/2025 [...] Discontinued, Routine, Holding - Preprocedure Given 01/01/2025 9:1 8 AM EDT 10 mL sodium chloride 0.9 [...] Castellanos RN)1804 (Given - Provider: Teri Mares, SHEREEN)2306 (Given - Provider: Josefina Castaneda RN) 0637 (Given - Provider: Josefina Castaneda RN)1255 [...] Routine 0218 (Medication Applied - Provider: Benedict Castillo RN)1119 (MAR Hold - Provider: Automatic Transfer Provider - Reason: Patient in procedure)1342 (OCT Unhold - Provider: Naty Castellanos RN) 0229 (Medication Applied - Provider: Josefina Castaneda RN) oxyCODONE (Roxicodone) immediate release tablet 5 mg (COMPLETED) 5 mg, Oral, Once, 1 dose, On Mon01/01/25 at 0025, STAT 0038 (Given - Provider: Benedict Castillo, SHEREEN)0042 (Override Pull - Provider: Benedict Castillo RN) polyethylene glycol (Miralax) packet 17 g 17 g, Oral, Daily, First dose on Mon01/01/25 at 0900, Until Discontinued, Routine 0826 (Not Given - Provider: Loreta Marvin RN - Reason: NPO)1119 (OCT Hold - Provider: Automatic Transfer Provider - Reason: Patient in procedure)1342 (OCT Unhold - Provider: Naty Castellanos, SHEREEN) 0800 (Given - Provider: Constance Castañeda, SHEREEN) Povidone-Iodine 5 % swab solution 1 Application (COMPLETED) Nasal, Once, 1 dose, On Mon01/01/25 at 0910, Routine 0918 (Given - Provider: Genoveva Branham RN) senna-docusate (Hailey-Colace) 8.6-50 MG per tablet 1 tablet 1 tablet, Oral, 2 times daily, First dose on Mon01/01/25 at 0900, Until Discontinued, Routine 0822 (Given - Provider: Loreta Marvin RN)1119 (OCT Hold - Provider: Automatic Transfer Provider - Reason: Patient in procedure)1342 ([facility] Unhold - Provider: Naty Castellanos, SHEREEN)2028 (Given - Provider: Josefina Castaneda RN) 0800 (Given - Provider: Constance Castañeda, SHEREEN) sodium chloride 0.9 % flush 10 mL (CANCELED)(Linked Group 1) 10 mL, Intravenous, Every 12 hours, First dose on Mon01/01/25 at 0910, Until Discontinued, Routine, Holding - Preprocedure 0918 (Given - Provider: Genoveva Branham RN)1119 (OCT Hold - Provider: Automatic Transfer Provider - Reason: Patient in procedure)1342 ([facility] Unhold - Provider: Naty Castellanos, SHEREEN) sodium chloride 0.9 % flush 10 mL(Linked Group 2) 10 mL, Intravenous, Every 12 hours, First dose on Mon01/01/25 at 0655, Until Discontinued, Routine 0712 (Given - Provider: Loreta Marvin, SHEREEN)1119 (OCT Hold - Provider: Automatic Transfer Provider - Reason: Patient in procedure)1342 (OCT Unhold - Provider: Naty Castellanos RN)1805 (Given - Provider: Teri Mares, SHEREEN) 0638 (Given - Provider: Josefina Castaneda, SHEREEN) PRN Medication Order 12/31/2024 01/01/2025 01/02/2025 bisacodyl (Dulcolax) suppository 10 mg 10 mg, Rectal, Daily PRN, Starting on Mon01/01/25 at 0650, Until Sneha 01/02/25 at 1409, Routine, constipation, if no bowel movement for 72 hours and no response to magnesium hydroxide 1119 (OCT Hold - Provider: Automatic Transfer Provider - Reason: Patient in procedure)1342 (OCT Unhold - Provider: Naty Castellanos RN) fentaNYL (Sublimaze) injection 50 mcg (COMPLETED) 50 mcg, Intravenous, Every 5 min PRN, 2 doses, Starting on Mon01/01/25 at 1241, Until 01/01/25 at 1415, Routine, Recovery (Phase I only), pain score of 5-8 out of 10 1410 (Given - Provider: Naty Castellanos RN)1415 (Given - Provider: Naty Castellanos RN) gabapentin (Neurontin) capsule 200 mg (COMPLETED) 200 mg, Oral, Once as needed, 1 dose, Starting on Mon01/01/25 at 1527, Until 01/01/25 at 1530, Routine, Recovery (Phase I only), neuropathic pain 1530 (Given - Provider: Naty Castellanos RN) HYDROmorphone (Dilaudid) injection 0.5 mg (COMPLETED) 0.5 mg, Intravenous, Every 10 min PRN, 2 doses, Starting on Mon01/01/25 at 1241, Until 01/01/25 at 1410, Routine, Recovery (Phase I only), pain score of 9-10 out of 10 1345 (Given - Provider: Naty Castellanos RN)1410 (Given - Provider: Naty Castellanos, SHEREEN) ibuprofen tablet 400 mg 400 mg, Oral, [...] 30 min PRN, 2 doses, Starting on 01/01/25 at 1406, Until 01/01/25 at 1601, Routine, Recovery (Phase I only), high blood pressure, SBP > 160, hold if HR < 65 1440 (Given - Provider: Naty Castellanos RN) magnesium hydroxide (Milk of Magnesia) 400 MG/5ML suspension 30 mL 30 mL, Oral, Daily PRN, Starting on 01/01/25 at 0650, Until Sneha 01/02/25 at 1409, Routine, constipation, if no bowel movement for 48 hours 1119 ([facility] Hold - Provider: Automatic Transfer Provider - Reason: Patient in procedure)1342 ([facility] Unhold - Provider: Naty Castellanos RN) naloxone (Narcan) injection 0.08 mg 0.08 mg, Intravenous, As needed, Starting on Mon01/01/25 at 0652, Until Sneha 01/02/25 at 1409, Routine, respiratory depression, every 2 minutes 1119 ([facility] Hold - Provider: Automatic Transfer Provider - Reason: Patient in procedure)1342 ([facility] Unhold - Provider: Naty Castellanos RN) oxyCODONE [...] Oral, Every 4 hours PRN, Starting on 01/01/25 at 0652, Until Sneha 01/02/25 at 1409, [...] (OCT Unhold - Provider: Naty Castellanos RN) traMADol [...] SHEREEN)202 (Given - Provider: Josefina Castaneda, SHEREEN) Linked [...] needed, Starting on Mon01/01/25 at 0909, Until 01/01/25 at 1601, Routine, Holding - Preprocedure, line [...] documented as of this encounter 

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
--- OUTSIDE RECORDS SUMMARY | 2025-01-15 21:32 | XMS_ITS | Encounter Summary ---
Author Organization Healthcare Address [address] [place] [address] Care Team Providers Care Learning Center Coordinator Name Role Phone Renetta Pardo APRN Primary Care Provider [phone] Reason for Visit * Reason Comments Post-op Problem * Auth/Cert (Routine) Specialty Diagnoses / Procedures Referred By Adalid t Referred To Contact Diagnoses Acute postoperative pain Cellulitis of leg, left Cellulitis of left lower extremity Sepsis following procedure, initial encounter ([facility]) recent LLE surgery @ now with cellulitis Sachin Garza MD [id number] [place] [address] Phone: tel: fax: [facility] [address] [place] [address] Phone: tel: Referral ID Status Reason Start Date Expiration Date Visits Re quested Visits Authorized [id number] 1 1 Encounter Details Date Type Department Care Team (Latest Contact Info) Description 01/15/2025 9:32 PM EDT - 01/22/2025 5:16 PM EDT Hospital Encounter [facility] In[facility] [address] [place] [address] Philippe Mann MD [address] [place] [address] Jeffrey Matute MD [address] [place] [address] Danny Ly MD [address] [place] [address] Sachin Garza MD [address] [place] [address] Cellulitis of leg, left (Primary Dx); Sepsis following procedure, initial encounter ([facility]); Cellulitis of left lower extremity; Acute [...] place to sleep or slept in a long-term (including now)? No 09/12/2023 Humiliation, Afraid, Rape, [...] any time in the past 12 m [facility], were you homeless or living in a long-term (including now)? No 01/17/2025 CAGE ASSESSMENT Answer [...] drink first t traci in the morning (EYE-BRIDGE REPAIRER) to steady your nerves or to get rid of a hangover? 0 09/10/2023 CAGE Questionnaire Score 0 024 Utilities Answer Date Recorded In the past 12 months has th e [employer], gas, oil, or water company threatened to [...] from the original note were not included. [address]5933 Flushing Your PICC Line at Home Your [...] soap and water, use an alcohol-based hand director of early childhood. The gel should have at least 60% [...] PICC. Last Reviewed Date: 2024 00:00:00 ?? 7480-1643 [employer]. All rights reserved. This information is not intended as a substitute for professional medical care. Always follow your healthcare professional's instructions. * [facility] - Leigh Rg RN - 01/22/2025 4:21 PM EDT Images from the original note were not included. 41960 Discharge Instructions: Changing the Dressing on Your [...] damage Last Reviewed Date: 2024 00:00:00 ?? 4013-5451 [employer]. All rights reserved. This information is not [...] the video go to this web address: [email or web address] Or, scan this QR code with your smart phone ?? [facility] * Leigh Muller RN - 01/22/2025 4:20 PM EDT Images from the original note were not included. 54827 Understanding Post Sepsis Syndrome (PSS) Sepsis is [...] infections Last Reviewed Date: 2022 00:00:00 ?? 7777-9334 [employer]. All rights reserved. This information is not intended as a substitute for professional medical care. Always follow your healthcare professional's instructions. * Rosaura RushDILLON - Leigh Rg RN - 01/22/2025 4:20 PM EDT Images from the original note were not included. 024693fu Buckle (Torus) Fracture of a Leg Your [...] you can dry it with a chair car driver on the cool setting. ? Put an [...] doctor Last Reviewed Date: 2024 00:00:00 ?? 3011-0012 [employer]. All rights reserved. This information is not intended as a substitute for professional medical care. Always follow your healthcare professional's instructions. * Rosaura RushDILLON - Leigh Rg RN - 01/22/2025 4:20 PM EDT Images from the original note were not included. 05362 Discharge Instructions for Cellulitis You have been [...] are in pain. Ask what kind of flxb-ykt-stuxsvq medicine you can take for pain. ? [...] Vomiting. Last Reviewed Date: 2024 00:00:00 ?? 2757-4934 [employer]. All rights reserved. This information is not intended as a substitute for professional medical care. Always follow your healthcare professional's instructions. * Discharge Summary - Mauricio Mondragon MD - 01/22/2025 4:16 PM EDT Hospitalization Admit Date/Time: 01/15/2025 9:32 PM Admitting Attending: Sachin Garza Discharge Date: 01/22/25 Discharge Attending Physician: Sachin Garza MD PCP name and Address: Renetta Pardo, TAR DISTRIBUTOR OPERATOR [address] [place] [address] [address] / [facility] [address] Referring provider name and address: Maldonado Luciano PA [address] [place] [address] [place] [address] Chief Concern, Brief History of Present Illness, and Hospital Course Patient arrived to [facility] 01[facility]25 with concern for [...] Your Medications These medications were sent to [facility] - [place], [place] - [address] [place], [facility] [address] DAPTOmycin injection These medications [facility] sent to [facility] [place], [place] - [address] [facility] [address] oxyCODONE 5 MG immediate release capsule Discharge Diagnosis Medical Problems Active and Resolved Hospital Problems Hospital Closed fracture of left tibial plateau Overview Addendum 09/16/2023 1:42 PM by Rolanda Adams APRN, KALYANI ORT consulted TROM in place WB per ORT 09/15: ORIF L tibial plateau fx Follow up with Dr. Nava on 10/04 * (Principal) Cellulitis of leg, left Sepsis following procedure ([facility]) Cellulitis of left lower extremity Post [...] Provider Department Center 01/27/2025 11:00 AM [facility] ORTHOPAED[facility] 02/03/2025 8:10 AM Lawrence Hayes MD [facility] 02/11/2025 1:00 PM Ary Santiago APRN [facility] [place] 03/03/2025 1:00 PM Ary Santiago APRN IDBCC[facility] [...] General: Spoke with: Patient, Family, and Bedside high frequency mill operator and Interventions: Assessed: Dressing Dressing Interventions: CDI [...] please contact the Orthopedic Transition Nurse at [phone] Monday through Monday 8:00 am to 2:30 pm. If you feel your concern is a medical emergency please call 911 immediately * Progress Notes - Anna Elam RN - 01/22/2025 9:28 AM EDT Case Management Discharge Note Ravin Ribeiro 34 y.o. male CSN: [id number] Admission: 01/15/2025 9:32 PM Primary Problem: Cellulitis of leg, left Primary Lift Mechanic: Primary Caregiver: Self Assistance Available at Discharge: Current Outpatient/Agency/Support Group: DME Availability of Care Givers (#Hours): 24 hours Family/Lift Mechanic(s) Willingness Assessed to care for patient at home: Yes Family/Lift Mechanic(s) Readiness Assessed to care for patient at [...] Community Agency(s): Patient's Choice of Community Agency(s): [facility] Patient/Family Anticipated Services at Transition: Patient/Family Anticipated Services at Transition: outpatient care DME/Equipment Needed after Discharge: Equipment Currently Used at Home: walker, rolling, commode chair, wheelchair, manual Equipment Needed After Discharge: walker, rolling, commode chair Readmission Within the Last 30 Days: Readmission Within the Last 30 Days: other (see comments) (cellulitis) Medicare Documentation: Medicare Second Notice?: No (pt has [place] medicaid) Follow-up: No follow-up provider specified. Discharge Transportation: Transportation Anticipated: family or friend will provide Transportation Home at Discharge: Family/Friend will Provide Has discharge transport been arranged?: No Follow Up Transport: Transportation Needed to Follow up Appoinments: Family/Friend will Provide Additional Comments: Per primary provider, pt is medically ready to discharge home with standard OPAT. PICC in place. [facility] and [facility]. First appointment is scheduled for 01/27 at 11 AM. Pt's family will be able to provide assistance and transportation. [employer] will complete teaching today and deliver IV ABX to bedside around 3 PM. Pt and S/O is aware and agreeable to discharge POC. [facility] [phone] Anna Elam RN * Progress Notes - [...] required Ayden Canseco MD PGY-1, Orthopaedic Surgery [facility] Orthopaedic Trauma Service Pager: [phone] Orthopaedic Recon/Spine/Foot and Ankle Service Pager: [phone] Cosigned by Lawrence Hayes MD at 01/22/2025 [...] required Red Mondragon MD Orthopaedic Surgery PGY-1 [facility] Orthopaedic Trauma Service Pager: [phone] Orthopaedic Recon/Spine/Foot and Ankle Service Pager: [phone] Personal Pager: [phone] Cosigned by Lawrence Hayes MD at 01/22/2025 1:06 PM EDT * Procedures - Norma Miranda RN - 01/21/2025 7:01 PM EDTAssociated Order(s): Insert PICC line Insert PICC line Date/Time: 01/21/2025 7:01 PM Performed by: Norma Miranda RN Authorized by: Sachin Garza MD [place] Protocol: Verbal consent obtained?: Yes Written consent [...] preference Patient position: Supine Catheter Lot #: [id number] Catheter line decorator: RxEyeC Solo Catheter placed: Single lumen Catheter size: [...] PACS. * Query Clarification Note - Bob Naav MD - 01/21/2025 5:34 PM EDT Physician [...] 01/21/2025 3:28 PM EDT Referrals sent to [facility] and for for possible home IV antibiotic infusion. There was no accepting companies in patient's area. CM spoke with patient and he is agreeable to either go to his local hospital [facility] or come to [facility] in [place] for his weekly PICC care/labs if needed. * Nursing Note - Camden Vital RN - 01/21/2025 1:45 PM EDT Orthopedic Transition Nurse Note General: Spoke with: Patient, Family, and Bedside high frequency mill operator and Interventions: Assessed: Dressing Dressing Interventions: CDI [...] please contact the Orthopedic Transition Nurse at [phone] Monday through Monday 8:00 am to 2:30 pm. If you feel your concern is a medical emergency please call 911 immediately * Steff Odell RN - 01/21/2025 11:57 AM EDT Images from the original note were not included. [id number] PICC Line Care PICC stands for peripherally [...] arm Last Reviewed Date: 2024 00:00:00 ?? 5449-7417 [employer]. All rights reserved. This information is not intended as a substitute for professional medical care. Always follow your healthcare professional's instructions. * Steff Odell RN - 01/21/2025 11:56 AM EDT Images from the original note were not included. [id number] * Steff Odell RN - 01/21/2025 11:56 AM EDT Images from the original note were not included. 54570 * Steff Odell RN - 01/21/2025 11:56 [...] your house or a medical facility. The case mgr/social secretary will setthat up based on your insurance. [...] or during weekends/[place] holidays, call the paging embossing unit operator at . Ask for the infectious disease fellow donor floor technician. Call the clinic if you have any [...] from the original note were not included. 32015 Flushing Your PICC Line at Home Your [...] soap and water, use an alcohol-based hand director of early childhood. The gel should have at least 60% [...] PICC. Last Reviewed Date: 2024 00:00:00 ?? 6266-0413 [employer]. All rights reserved. This information is not intended as a substitute for professional medical care. Always follow your healthcare professional's instructions. * [facility] - Steff Paz RN - 01/21/2025 11:56 AM EDT Images from the original note were not included. [id number] Daptomycin Injection Brand Name(s): Cubicin??, Cubicin RF??; [...] be awakened, immediately call emergency services at 172. What OTHER INFORMATION should I know? Keep [...] of all of the prescription and nonprescription (xjla-cce-axcqqhm) medicines you are taking, as well as [...] or pharmacist about specific clinical use. The [place] [employer] represents that the information provided hereunder was formulated with a reasonable standard of care, and in conformity with professional standards in the field. The [employer] [employer] makes no representations or warranties, express or implied, including, but not limited to, any implied warranty of merchantability and/or fitness for a particular purpose, with respect to such information and specifically disclaims all such warranties. Users are advised that decisions regarding drug therapy are complex medical decisions requiring the independent, informed decision of an appropriate health hearing care professional, and the information is provided for informational purposes only. The entire monograph for a drug should be reviewed for a thorough understanding of the drug's actions, uses and side effects. The [employer] [employer] does not endorse or recommend the use of any drug.The information is not a substitute for medical care. AHFS?? Patient Medication Information?. ?? Copyright, 2023. The [employer] [employer] Pharmacists??, [address], [address], [place], [place]. All Rights Reserved. Duplication for commercial use must be authorized by [facility]. Selected Revisions: July 28, 2019. AHFS?? Patient Medication Information?. ?? Copyright, 2024 * Rosaura Acosta - Steff Paz RN - 01/21/2025 11:56 AM EDT Images from the original note were not included. 00953 Discharge Instructions: Caring for Your Peripherally Inserted [...] damage. Last Reviewed Date: 2024 00:00:00 ?? 5873-8057 [employer]. All rights reserved. This information is not intended as a substitute for professional medical care. Always follow your healthcare professional's instructions. * [facility] - Steff Paz RN - 01/21/2025 11:56 AM EDT Images from the original note were not included. [address]5541 Central Line Infections You need a central [...] water. Or they use an alcohol-based hand director of early childhood containing at least 60% alcohol. ? Using [...] (warm or cold), and use alcohol-based hand director of early childhood with at least 60% alcohol as directed. To clean your hands well,follow the guidelines on this sheet. Visitors should wash their hands well when they arrive and when they leave. ? Make sure healthcare staff and your visitors clean their hands. They should use soap and clean, running water or an alcohol-based hand director of early childhood before and after checking the line. Don?t [...] good choice for cleaning your hands. The director of early childhood should have at least 60% alcohol. Note that some germs can't be killed by alcohol. Your healthcare team can answer any questions you have about when to use a hand director of early childhood, or when it?s better to wash with soap and water. Follow these steps: ? Spread the hand director of early childhood in the palm of one hand. (Check the package for specific guidelines.) ? Rub your hands together briskly. Clean the backs of your hands, the palms, between your fingers, and up your wrists. ? Rub until the director of early childhood is gone and your hands are completely [...] skin Last Reviewed Date: 2023 00:00:00 ?? 5914-6567 [employer]. All rights reserved. This information is not [...] Single Lumen PICC Patient Specific Outpatient Circumstances: [address] [place] [address] Family Support: Extended Emergency Contact Information Primary Emergency Contact: Hayley Buenrostro Address: [address] [place] [address] Mobile Relation: Significant Other Preferred language: Filipino Stencil Cutter Machine needed? No Secondary Emergency Contact: Jenny Buenrostro Address: [address] [place] [address] of [place] Mobile Relation: Mother Contact information: Ravin Ribeiro [phone] (home) Outpatient services (including home infusion, home health, facility referral: See recent [facility] case management/social work note for finalization of services ID follow up appointment: Future Appointments Date Time Provider Department Center 02/03/2025 8:10 AM Lawrence Hayes MD [facility] 02/11/2025 1:00 PM Ary Santiago APRN [facility] [place] 03/03/2025 1:00 PM Ary Santiago APRN IDBCCLX [...] via secure chat or staff messaging in [employer]. Patient and family will need to be [...] days prior to presentation. He presented to [facility] wherehe was febrile to 101.3F. [...] PA-C Division of Infectious Diseases Available on [employer] Chat History, assessment, and plan discussed with [...] labs to: ID OPAT Team Fax #: [phone] Appointments: Ary Santiago APRN on 02/11 at 1PM and 03/03 at 1PM [facility]: [address] [place] [address] (Select Option 3 for IV Antibiotic / PICC line related issues) For questions regarding OPAT prior to discharge, reach out to the OPAT team via [employer] Secure Chat (Group: OPAT Referral Team). For all questions regarding OPAT after discharge should be directed to the OPAT Team at (Select Option 3 for IV Antibiotics/PICC Issues) between 8am-5pm. After 5 pm, or during weekends/[place] holidays, please call the paging embossing unit operator at to reach the on-call ID [...] at 01/18/25 1133 [2] Allergies Allergen Reactions [place] Hives * Consults - Delma Ortiz - 01/21/2025 10:00 AM EDT Pastoral Care Note: Patient was appreciative of press technician's visit and expressed gratitude to the care team. he said family is on their way to him. Referral From: Career Technical Counselor Initiated Pastoral Care Provided For: Patient Patient Profile: Spiritual Assessment: Support Systems/ Spiritual Resources: Treasure, Sense of Peace, Trust, Gratitude Spiritual Needs: Emotional support, Spiritual ritual Spiritual Issues: Discharge Interventions: Pastoral Care Outcomes: Patient Outcomes: Appreciative of Career Technical Counselor Support, Expresses acceptance, Gratitude Cosigned by Macrina Dumont at 01/21/2025 6:24 PM EDT Associated attestation - Macrina Dumont - 01/21/2025 6:24 PM EDT This is to attest press technician internal affairs investigator chart note has been reviewed and okayed. [...] ambulate in room/hallway with family and staff design engineer while remains inpatient. Patient demonstrates no further [...] Prevent or Manage Infection Flowsheets (Taken 01/20/2025 6122) Infection Management: aseptic technique maintained Fever Reduction/Comfort [...] Agree with above assessment and evaluation from resident/LACE CUTTER. * Progress Notes - Anna Elam RN - 01/20/2025 10:48 AM EDT Case Management Adult Progress Note Ravin Ribeiro 34 y.o. male CSN: [id number] Admission: 01/15/2025 9:32 PM Primary Problem: Cellulitis of leg, left Anticipated Discharge Date: TBD Pt to OR today for repeat I&D on left knee. Pt has worsening NORMAN and team wants to repeat AM labs. Final ID recs and OPAT eval are pending. [facility]. Pt's medicaid may be a potential barrier to HH. CM will continue to assist with discharge POC. Anna Elam RN * Op Note - Bob Nava MD - 01/20/2025 10:26 AM EDT Operative Note Date: 01/20/25 Location: [place] [facility] Name: Ravin Ribeiro, : 1990, Diagnoses: Pre-op Diagnosis Closed fracture of left tibial plateau with routine healing, subsequent encounter Left proximal tibia (knee region) deep abscess Post-op Diagnosis Closed fracture of left tibial plateau with routine healing, subsequent encounter Left proximal tibia (knee region) deep abscess Procedure(s): Incision and drainage of left knee deep abscess Attending Surgeon(s): * Bob Nava - Primary Biogeographer(s): * Emely Giron MD - Resident - [...] days prior to presentation. He presented to [facility] wherehe was febrile to 101.3F. [...] PA-C Division of Infectious Diseases Available on [employer] Chat History, assessment, and plan discussed with [...] Gustavo Hightower MD [2] Allergies Allergen Reactions [place] Hives * Consults - Ricco Howard RN [...] required Ayden Canseco MD PGY-1, Orthopaedic Surgery [facility] Orthopaedic Trauma Service Pager: [phone] Orthopaedic Recon/Spine/Foot and Ankle Service Pager: [phone] Cosigned by Sachin Garza MD at 01/20/2025 4:55 PM EDT * Progress Notes - aJqueline Thompson PharmD - 01/19/2025 1:15 PM EDT [...] Course 1. Sepsis following procedure, initial encounter ([facility]) 2. Cellulitis of left lower extremity [...] admission Level of Mobility: Ambulatory- community Mobility Thornton: Independent gait without device (intermittne use of [...] Mobility Bed Mobility Exam: Scooting/Bridging Level of Thornton: Independent Bed Mobility Exam: Supine to Sit Level of Thornton: Independent Transfers Transfer Exam: Sit to stand Level of Thornton: Stand-by assist Physical/Nonphysical Assist: Verbal Cues Assistive Device: Walker, rolling Transfer Exam: Stand to Sit Level of Thornton: Stand-by assist Physical/Nonphysical Assist: Verbal Cues Assistive Device: Walker, rolling Toilet Transfer Level of Thornton: Stand-by assist Physical/Nonphysical Assist: Verbal Cues Type of Transfer: Ambulation, To toilet Assistive Device: Walker, rolling, Grab bar Functional Mobility Device: Rolling walker Assistance: Standby assist <Household distance, cuing for safety, pacing activity, RW management, and encouraged L LE WBAT-as permitted per chart (pt reports being used to NWB for pain management ELECTRICAL EQUIPMENT 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) Balance Postural Appearance Posture: Within Functional Limits [...] admission Level of Mobility: Ambulatory- community Mobility Thornton: Independent gait without device (intermittne use of [...] Mobility Bed Mobility Exam: Scooting/Bridging Level of Thornton: Independent Bed Mobility Exam: Supine to Sit Level of Thornton: Independent Transfers Transfer Exam: Sit to stand Level of Thornton: Stand-by assist Physical/Nonphysical Assist: Verbal Cues Assistive Device: Walker, rolling Transfer Exam: Stand to Sit Level of Thornton: Stand-by assist Physical/Nonphysical Assist: Verbal Cues Assistive [...] required Red Mondragon MD Orthopaedic Surgery PGY-1 [facility] Orthopaedic Trauma Service Pager: [phone] Orthopaedic Recon/Spine/Foot and Ankle Service Pager: [phone] Personal Pager: [phone] Cosigned by Ye Navarro MD at 01/21/2025 [...] Attending Surgeon(s): * Ye Navarro - Primary Biogeographer(s): * Harvey Swift MD - Resident - 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 high frequency mill operator and Interventions: Assessed: Wound 01/01/25 Surgical Open [...] please contact the Orthopedic Transition Nurse at [phone] Monday through Monday 8:00 am to 2:30 [...] ] Family [ ] Friend [ ] Stencil Cutter Machine [X] Medical records HISTORY OF PRESENT ILLNESS: [...] medial pretibial incision so he presented to [facility] for evaluation. He was febrile [...] on day of presentation. He lives in [place] with his , CONSTANZA, and 2 young [...] as needed for muscle spasms. 01/02/25 Suhail uDeñas MD multivitamin (Theragran-M) tablet Take 1 tablet [...] days prior to presentation. He presented to [facility] wherehe was febrile to 101.3F. [...] PA-C Division of Infectious Diseases Available on [employer] Chat History, assessment, and plan discussed with ID attending, Dr. Azucena Collado The following complex inpatient infectious disease services were performed today: Complex antimicrobial therapy counseling and treatment [1] History reviewed. No pertinent past medical history. [2] Past Surgical History: Procedure Laterality Date LEG SURGERY Left [3] Allergies Allergen Reactions [place] Hives [4] Current Facility-Administered Medications Medication Dose Route Frequency Provider Last Rate Last Admin acetaminophen (Tylenol) tablet 1,000 mg 1,000 mg Oral q6h CONE [facility] Tyrone Howard MD 1,000 mg at 01/17/25 [...] Note Ravin Ribeiro 34 y.o. male CSN: [id number] Admission: 01/15/2025 9:32 PM Primary Problem: Cellulitis of leg, left System Support Developer reviewed chart and spoke with patient to complete this Initial Case Management Assessment. PCP: Renetta Pardo APRN Emergency Contact: Extended Emergency Contact Information Primary Emergency Contact: Hayley Buenrostro Address: [address] [place] [address] Mobile Relation: Significant Other Preferred language: Filipino Stencil Cutter Machine needed? No Secondary Emergency Contact: Jenny Buenrostro Address: [address] [place] [address] Mobile Relation: Mother Insurance: Primary Visit Coverage Payer Plan Sponsor Code Group Number Group Name [facility] MEDICAID MOLINA [place] M[place] MEDICAID Primary Visit Coverage Subscriber Subscriber ID Subscriber Name Subscriber N Subscriber Address [id number] RAVIN RIBEIRO [id number] [place] [address] Patient information: Primary Caregiver: Self Support System: Immediate family Daily Living Activities: Functional Status: Independent Living Arrangements: Spouse/Significant other, Family Type of Residence: Private residence, Single Level [address] [place] [address] Current DME: Equipment Currently Used at Home: [...] Outpatient Dialysis Services: Living Will/Advance Directive/Power of Division Manager /Guardian: Have you reviewed your Advance Directive [...] Pt states he lives at home in [place] with his , MIL, and two small 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 Mitch Giron MD PGY-3, Orthopaedic Surgery [facility] Orthopaedic Trauma Service Pager: [phone] Orthopaedic Recon/Spine/Foot and Ankle Service Pager: [phone] Cosigned by Sachin Garza MD at 01/18/2025 [...] your wound. Based upon recent changes to [place] law related to prescribing opioid pain medications, [...] please contact the Orthopedic Transition Nurse at [phone] Monday through Monday 8:00 am to 2:30 [...] examinations Tabitha Howard MD PGY-2, Orthopaedic Surgery [facility] Cosigned by Sachin Garza MD [...] fracture WRadha Howard MD PGY-2, Orthopaedic Surgery [facility] Orthopaedic Trauma Service Pager: [phone] Orthopaedic Recon/Spine/Foot and Ankle Service Pager: [phone] [1] History reviewed. No pertinent past medical [...] 25 tablet 0 [4] Allergies Allergen Reactions [place] Hives Cosigned by Sachin Garza MD at [...] 01/16/25 0657 Sepsis following procedure, initial encounter ([facility]) Cellulitis of left lower extremity Acute [...] diagnosis was Sepsis following procedure, initial encounter ([facility]). Diagnoses of Cellulitis of left lower [...] Drug use: Never [5] Allergies Allergen Reactions [place] Hives Gus Vigil APRN 01/16/25 06 Cosigned [...] 01/16/25 0733 Sepsis following procedure, initial encounter ([facility]) Cellulitis of left lower extremity Acute postoperative pain Ultimately, this patient Was admitted (Admission) The primary encounter diagnosis was Sepsis following procedure, initial encounter ([facility]). Diagnoses of Cellulitis of left lower [...] 11:00 AM EDT Clinical Support [facility] Orthopaedic Surgery & Sports Medicine [address] [place] [address] 02/03/2025 8:10 AM EDT Office Visit [facility] Orthopaedic Surgery & Sports Medicine [address] [place] [address] Lawrence Hayes MD [address] [place] [address] 02/11/2025 1:00 PM EDT Office Visit [facility] [address] [place] [address] Ary Santiago, TAR DISTRIBUTOR OPERATOR [address] [facility] [address] [place] [address] 03/03/2025 1:00 PM EDT Office Visit [facility] [address] [place] [address] Ary Santiago, TAR DISTRIBUTOR OPERATOR [address] [facility] [address] [place] [address] Pending Results Name Type Priority [...] Stain Microbiology Routine 01/18/2025 3:28 PM EDT Anaerobic Culture Microbiology Routine Closed fracture of left tibial plateau with routine healing, subsequent encounter 01/20/2025 10:27 AM EDT Anaerobic Culture Microbiology Routine Closed fracture of left tibial plateau with routine healing, subsequent encounter 01/20/2025 10:30 AM EDT AFB Culture, Non Respiratory Source [...] healing, subsequent encounter 01/20/2025 10:30 AM EDT Anaerobic Culture Microbiology Routine Closed fracture of left tibial plateau with routine healing, subsequent encounter 01/20/2025 10:42 AM EDT Fungal Culture, Routine Microbiology Routine Closed fracture of left tibial plateau with routine healing, subsequent encounter 01/20/2025 10:42 AM EDT Scheduled Orders Name Type Priority Associated Diagnoses Orde r Schedule Bacteria, Broad range PCR (SO) Lab Routine Cellulitis of left lower extremity Release Upon Ordering for 1 Occurrences starting 01/18/2025 Fungal Culture, Routine Microbiology Routine Closed fracture of left tibial plateau with routine healing, subsequent encounter Release Upon Ordering for 1 Occurrences starting 01/20/2025 documented as of this encounter Procedures Procedure [...] (ABNORMAL) C-reactive protein (01/22/2025 5:04 AM EDT) [facility] CRP, Plasma 44.4(H) <=8.0 mg/L 01/22/2025 9:25 AM EDT [facility] Blood Venous blood specimen / Unknown Venipuncture / Unknown 01/22/2025 5:04 AM EDT 01/22/2025 5:31 AM EDT Narrative [facility] - 01/22/2025 9:25 AM EDT This CRP test is appropriate for assessment of infection, systemic inflammation and/or tissue injury. To assess cardiovascular disease risk order high sensitivity CRP (CRPH). us Michelle ZULUAGA LAB BLOOD ORDERABLES Final Res ult [facility] [address] [place] [address] * Lavender Top (01/22/2025 5:04 AM EDT) [facility] Extra Hold for add-ons 01/22/2025 8:02 AM EDT [facility] Comment:Auto resulted. Blood Venous blood specimen / Unknown 01/22/2025 5:04 AM EDT 01/22/2025 5:30 AM EDT us Sachin Garza MD LAB BLOOD ORDERABLES Final R esult [facility] [address] [place] [address] * (ABNORMAL) Basic metabolic panel (01/22/2025 5:04 AM EDT) [facility] Glucose, Plasma 91 74 - 99 mg/dL 01/22/2025 6:01 AM EDT [facility] BUN, Plasma 33(H) 7 - 21 mg/dL 01/22/2025 6:01 AM EDT [facility] Creatinine, Plasma 1.47(H) 0.70 - 1.20 mg/dL 01/22/2025 6:01 AM EDT [facility] BUN/Creatinine Ratio 22 01/22/2025 6:01 AM EDT [facility] Sodium, Plasma 137 136 - 145 mmol/L 01/22/2025 6:01 AM EDT [facility] Potassium, Plasma 5.3(H) 3.6 - 4.9 mmol/L 01/22/2025 6:01 AM EDT [facility] Chloride, Plasma 100 97 - 107 mmol/L 01/22/2025 6:01 AM EDT [facility] CO2, Plasma 28 22 - 29 mmol/L 01/22/2025 6:01 AM EDT [facility] Anion Gap 9 6 - 16 mmol/L 01/22/2025 6:01 AM EDT [facility] Total Calcium, Plasma 9.6 8.9 - 10.2 mg/dL 01/22/2025 6:01 AM EDT [facility] eGFRcr 63.4 mL/min/1.7 3m*2 01/22/2025 6:01 AM EDT [facility] Comment:Reported eGFRcr in m L/min/1.73m2 is based the CKD-EPI 2020 equation that does not use a race coefficient. Blood Venous blood specimen / Unknown Venipuncture / Unknown 01/22/2025 5:04 AM EDT 01/22/2025 5:31 AM EDT us Sachin Garza MD LAB BLOOD ORDERABLES Final R esult [facility] [address] [place] [address] * (ABNORMAL) CBC (01/21/2025 7:29 PM EDT) WBC Count 10.10 3.70 - 10.30 10*3/uL LAB HEMATOLOGY METHOD 01/21/2025 7:42 PM EDT [facility] RBC Count 3.82(L) 4.60 - 6.10 10*6/uL LAB HEMATOLOGY METHOD 01/21/2025 7:42 PM EDT [facility] HGB 11.5(L) 13.7 - 17.5 g/dL LAB HEMATOLOGY METHOD 01/21/2025 7:42 PM EDT [facility] HCT 35.2(L) 40.0 - 51.0 % LAB HEMATOLOGY METHOD 01/21/2025 7:42 PM EDT [facility] Platelet Count 446(H) 155 - 369 10*3/uL LAB HEMATOLOGY METHOD 01/21/2025 7:42 PM EDT [facility] MCV 92 79 - 98 fL LAB HEMATOLOGY METHOD 01/21/2025 7:42 PM EDT [facility] MCH 30.1 26.0 - 32.0 pg LAB HEMATOLOGY METHOD 01/21/2025 7:42 PM EDT [facility] MCHC 32.7 30.7 - 35.5 g/dL LAB HEMATOLOGY METHOD 01/21/2025 7:42 PM EDT [facility] RDW 13.1 11.5 - 14.5 % LAB HEMATOLOGY METHOD 01/21/2025 7:42 PM EDT [facility] MPV 9.1 8.8 - 12.5 fL LAB HEMATOLOGY METHOD 01/21/2025 7:42 PM EDT [facility] nRBC 0.0 <=0.0 per 100 WBCs LAB HEMATOLOGY METHOD 01/21/2025 7:42 PM EDT [facility] Blood Venous blood specimen / Unknown Venipuncture / Unknown 01/21/2025 7:29 PM EDT 01/21/2025 7:35 PM EDT us Sachin Garza MD LAB BLOOD ORDERABLES Final R esult [facility] [address] [place] [address] * (ABNORMAL) Basic metabolic panel (01/21/2025 7:29 PM EDT) Glucose, Plasma 122(H) 74 - 99 mg/dL 01/21/2025 8:03 PM EDT [facility] BUN, Plasma 31(H) 7 - 21 mg/dL 01/21/2025 8:03 PM EDT [facility] Creatinine, Plasma 1.64(H) 0.70 - 1.20 mg/dL 01/21/2025 8:03 PM EDT [facility] BUN/Creatinine Ratio 19 01/21/2025 8:03 PM EDT [facility] Sodium, Plasma 139 136 - 145 mmol/L 01/21/2025 8:03 PM EDT [facility] Potassium, Plasma 4.6 3.6 - 4.9 mmol/L 01/21/2025 8:03 PM EDT [facility] Chloride, Plasma 101 97 - 107 mmol/L 01/21/2025 8:03 PM EDT [facility] CO2, Plasma 26 22 - 29 mmol/L 01/21/2025 8:03 PM EDT [facility] Anion Gap 12 6 - 16 mmol/L 01/21/2025 8:03 PM EDT [facility] Total Calcium, Plasma 9.1 8.9 - 10.2 mg/dL 01/21/2025 8:03 PM EDT [facility] eGFRcr 55.6 mL/min/1.7 3m*2 01/21/2025 8:03 PM EDT [facility] Comment:Reported eGFRcr in m L/min/1.73m2 is based the CKD-EPI 2020 equation that does not use a race coefficient. Blood Venous blood specimen / Unknown Venipuncture / Unknown 01/21/2025 7:29 PM EDT 01/21/2025 7:35 PM EDT us Sachin Garza MD LAB BLOOD ORDERABLES Final R esult [facility] [address] [place] [address] * PICC SINGLE LUMEN (SMARTFORM LINK) (01/21/2025 7:01 PM EDT) Narrative Norma Miranda RN - 01/21/2025 7:01 PM EDT Norma Miranda RN 01/21/2025 7:19 PM Insert PICC line Date/Time: 01/21/2025 7:01 PM Performed by: Norma Miranda RN Authorized by: Sachin Garza MD [place] Protocol: Verbal consent obtained?: Yes Written consent [...] preference Patient position: Supine Catheter Lot #: [id number] Catheter line decorator: Bard PowerPICC Solo Catheter placed: Single lumen Catheter size: 4 Fr Catheter trimmed length: 52 Catheter threaded length: 52 Vein placed in: SVC Catheter cm indwellin Catheter cm outside: 52 Placement confirmed by: Amanda Huff DBA SecuRecovery 3CG technology Pre-procedure: Landmarks identified Ultrasound guidance: [...] at day 4 2024 7:15 AM EDT [facility] Gram Stain Result No polymorphonuclear leukocytes seen 01/25/2025 7:15 AM EDT [facility] Gram Stain Result No organisms seen 01/25/2025 7:15 AM EDT [facility] Swab Structure of left knee region / Unknown 01/20/2025 10:42 AM EDT 01/20/2025 11:25 AM EDT Comment:Pre-op diagnosis: Closed fracture of left tibial plateau with routine healing, subsequent encounter [S82.142D] Bob Nava MD LAB MICROBIOLOGY - GENERAL O RDERABLES Final Result Performing Organization Address City/[facility]/ZIP Co de Phone Number [facility] [address] [place] [address] * Tissue Culture and Gram Stain (01/20/2025 10:30 AM EDT) Culture No growth at day 4 2024 7:15 AM EDT [facility] Gram Stain Result No polymorphonuclear leukocytes seen 01/25/2025 7:15 AM EDT [facility] Gram Stain Result No organisms seen 01/25/2025 7:15 AM EDT [facility] Tissue Structure of left knee region / Unknown 01/20/2025 10:30 AM EDT 01/20/2025 11:23 AM EDT Comment:Pre-op diagnosis: Closed fracture of left tibial plateau with routine healing, subsequent encounter [S82.142D] us Bob Nava MD LAB MICROBIOLOGY - GENERAL O RDERABLES Final Result Performing Organization Address City/[facility]/ZIP Co de Phone Number [facility] [address] [place] [address] * Tissue Culture and Gram Stain (01/20/2025 10:27 AM EDT) Culture No growth at day 4 2024 7:15 AM EDT [facility] Gram Stain Result No organisms seen 01/25/2025 7:15 AM EDT [facility] Gram Stain Result No polymorphonuclear leukocytes seen 01/25/2025 7:15 AM EDT [facility] Tissue Structure of left knee region / Unknown 01/20/2025 10:27 AM EDT 01/20/2025 11:24 AM EDT Comment:Pre-op diagnosis: Closed fracture of left tibial plateau with routine healing, subsequent encounter [F52.142J] Bob Nava MD LAB MICROBIOLOGY - GENERAL O RDERABLES Final Result Performing Organization Address [facility]/ZIP Co de Phone Number [facility] [address] [place] [address] * (ABNORMAL) Creatine Kinase (CK), Total (01/20/2025 3:40 AM EDT) Creatine Kinase, Plasma 18(L) 49 - 320 U/L 01/21/2025 12:17 PM EDT [facility] Blood Venous blood specimen / Unknown Venipuncture / Unknown 01/20/2025 3:40 AM EDT 01/20/2025 3:57 AM EDT Sachin Garza MD LAB BLOOD ORDERABLES Final R esult Performing Organization Address [facility] Co de Phone Number [facility] [address] [place] [address] * Vancomycin, random (01/20/2025 3:40 AM EDT) Vancomycin, Random, Plasma 20.1 ug/mL 01/20/2025 4:51 AM EDT [facility] Blood Venous blood specimen / Unknown Venipuncture / Unknown 01/20/2025 3:40 AM EDT 01/20/2025 3:57 AM EDT Sachin Garza MD LAB BLOOD ORDERABLES Final R esult Performing Organization Address City/[facility] Co de Phone Number [facility] [address] [place] [address] * Protime-INR (01/20/2025 3:40 AM EDT) Prothrombin Time 13.5 12.0 - 14.3 sec LAB COAGULATION METHOD 01/20/2025 4:17 AM EDT [facility] INR 1.0 0.9 - 1.1 LAB COAGULATION METHOD 01/20/2025 4:17 AM EDT [facility] Blood Venous blood specimen / Unknown Venipuncture / Unknown 01/20/2025 3:40 AM EDT 01/20/2025 3:56 AM EDT Narrative [facility] - 01/20/2025 4:17 AM [...] of recurrent AR INR 2.5 to 3.5 us Sachin Garza MD LAB BLOOD ORDERABLES Final R esult [facility] [address] [place] [address] * (ABNORMAL) Basic metabolic panel (01/20/2025 3:40 AM EDT) Glucose, Plasma 87 74 - 99 mg/dL 01/20/2025 4:51 AM EDT [facility] BUN, Plasma 30(H) 7 - 21 mg/dL 01/20/2025 4:51 AM EDT [facility] Creatinine, Plasma 1.59(H) 0.70 - 1.20 mg/dL 01/20/2025 4:51 AM EDT [facility] BUN/Creatinine Ratio 19 01/20/2025 4:51 AM EDT [facility] Sodium, Plasma 142 136 - 145 mmol/L 01/20/2025 4:51 AM EDT [facility] Potassium, Plasma 4.7 3.6 - 4.9 mmol/L 01/20/2025 4:51 AM EDT [facility] Chloride, Plasma 104 97 - 107 mmol/L 01/20/2025 4:51 AM EDT [facility] CO2, Plasma 26 22 - 29 mmol/L 01/20/2025 4:51 AM EDT [facility] Anion Gap 12 6 - 16 mmol/L 01/20/2025 4:51 AM EDT [facility] Total Calcium, Plasma 8.9 8.9 - 10.2 mg/dL 01/20/2025 4:51 AM EDT [facility] eGFRcr 57.7 mL/min/1.7 3m*2 01/20/2025 4:51 AM EDT [facility] Comment:Reported eGFRcr in m L/min/1.73m2 is based the CKD-EPI 2020 equation that does not use a race coefficient. Blood Venous blood specimen / Unknown Venipuncture / Unknown 01/20/2025 3:40 AM EDT 01/20/2025 3:57 AM EDT us Sachin Garza MD LAB BLOOD ORDERABLES Final R esult [facility] [address] [place] [address] * (ABNORMAL) CBC W/O Differential (01/20/2025 3:40 AM EDT) WBC Count 8.11 3.70 - 10.30 10*3/uL LAB HEMATOLOGY METHOD 01/20/2025 4:04 AM EDT [facility] RBC Count 3.64(L) 4.60 - 6.10 10*6/uL LAB HEMATOLOGY METHOD 01/20/2025 4:04 AM EDT [facility] HGB 10.7(L) 13.7 - 17.5 g/dL LAB HEMATOLOGY METHOD 01/20/2025 4:04 AM EDT [facility] HCT 34.5(L) 40.0 - 51.0 % LAB HEMATOLOGY METHOD 01/20/2025 4:04 AM EDT [facility] Platelet Count 399(H) 155 - 369 10*3/uL LAB HEMATOLOGY METHOD 01/20/2025 4:04 AM EDT [facility] MCV 95 79 - 98 fL LAB HEMATOLOGY METHOD 01/20/2025 4:04 AM EDT [facility] MCH 29.4 26.0 - 32.0 pg LAB HEMATOLOGY METHOD 01/20/2025 4:04 AM EDT [facility] MCHC 31.0 30.7 - 35.5 g/dL LAB HEMATOLOGY METHOD 01/20/2025 4:04 AM EDT [facility] RDW 13.1 11.5 - 14.5 % LAB HEMATOLOGY METHOD 01/20/2025 4:04 AM EDT [facility] MPV 9.5 8.8 - 12.5 fL LAB HEMATOLOGY METHOD 01/20/2025 4:04 AM EDT [facility] nRBC 0.0 <=0.0 per 100 WBCs LAB HEMATOLOGY METHOD 01/20/2025 4:04 AM EDT [facility] Blood Venous blood specimen / Unknown Venipuncture / Unknown 01/20/2025 3:40 AM EDT 01/20/2025 3:56 AM EDT us Sachin Garza MD LAB BLOOD ORDERABLES Final R esult Performing Organization Address City/[facility]/ZIP Co de Phone Number [facility] [address] [place] [address] * Vancomycin, random (01/19/2025 11:48 AM EDT) Vancomycin, Random, Plasma 22.9 ug/mL 01/19/2025 1:05 PM EDT [facility] Blood Venous blood specimen / Unknown Venipuncture / Unknown 01/19/2025 11:48 AM EDT 01/19/2025 11:50 AM EDT us Sachin Garza MD LAB BLOOD ORDERABLES Final R esult [facility] [address] [place] [address] * (ABNORMAL) Basic Metabolic Panel, Plasma (01/18/2025 11:54 PM EDT) Glucose, Plasma 134(H) 74 - 99 mg/dL 01/19/2025 12:45 AM EDT [facility] BUN, Plasma 24(H) 7 - 21 mg/dL 01/19/2025 12:45 AM EDT [facility] Creatinine, Plasma 1.34(H) 0.70 - 1.20 mg/dL 01/19/2025 12:45 AM EDT [facility] BUN/Creatinine Ratio 18 01/19/2025 12:45 AM EDT [facility] Sodium, Plasma 137 136 - 145 mmol/L 01/19/2025 12:45 AM EDT [facility] Potassium, Plasma 4.7 3.6 - 4.9 mmol/L 01/19/2025 12:45 AM EDT [facility] Chloride, Plasma 100 97 - 107 mmol/L 01/19/2025 12:45 AM EDT [facility] CO2, Plasma 24 22 - 29 mmol/L 01/19/2025 12:45 AM EDT [facility] Anion Gap 13 6 - 16 mmol/L 01/19/2025 12:45 AM EDT [facility] Total Calcium, Plasma 9.3 8.9 - 10.2 mg/dL 01/19/2025 12:45 AM EDT [facility] eGFRcr 70.8 mL/min/1.7 3m*2 01/19/2025 12:45 AM EDT [facility] Comment:Reported eGFRcr in m L/min/1.73m2 is based the CKD-EPI 2020 equation that does not use a race coefficient. Blood Venous blood specimen / Unknown Venipuncture / Unknown 01/18/2025 11:54 PM EDT 01/19/2025 12:16 AM EDT Sachin Garza MD LAB BLOOD ORDERABLES Final R esult [facility] [address] [place] [address] * (ABNORMAL) CBC W/O Differential (01/18/2025 11:54 PM EDT) WBC Count 11.85(H) 3.70 - 10.30 10*3/uL LAB HEMATOLOGY METHOD 01/19/2025 12:20 AM EDT [facility] RBC Count 3.76(L) 4.60 - 6.10 10*6/uL LAB HEMATOLOGY METHOD 01/19/2025 12:20 AM EDT [facility] HGB 11.3(L) 13.7 - 17.5 g/dL LAB HEMATOLOGY METHOD 01/19/2025 12:20 AM EDT [facility] HCT 34.2(L) 40.0 - 51.0 % LAB HEMATOLOGY METHOD 01/19/2025 12:20 AM EDT [facility] Platelet Count 394(H) 155 - 369 10*3/uL LAB HEMATOLOGY METHOD 01/19/2025 12:20 AM EDT [facility] MCV 91 79 - 98 fL LAB HEMATOLOGY METHOD 01/19/2025 12:20 AM EDT [facility] MCH 30.1 26.0 - 32.0 pg LAB HEMATOLOGY METHOD 01/19/2025 12:20 AM EDT [facility] MCHC 33.0 30.7 - 35.5 g/dL LAB HEMATOLOGY METHOD 01/19/2025 12:20 AM EDT [facility] RDW 12.9 11.5 - 14.5 % LAB HEMATOLOGY METHOD 01/19/2025 12:20 AM EDT [facility] MPV 9.5 8.8 - 12.5 fL LAB HEMATOLOGY METHOD 01/19/2025 12:20 AM EDT [facility] nRBC 0.0 <=0.0 per 100 WBCs LAB HEMATOLOGY METHOD 01/19/2025 12:20 AM EDT [facility] Blood Venous blood specimen / Unknown Venipuncture / Unknown 01/18/2025 11:54 PM EDT 01/19/2025 12:13 AM EDT us Sachin Garza MD LAB BLOOD ORDERABLES Final R esult [facility] [address] [place] [address] * Anaerobic Culture (01/18/2025 3:28 PM EDT) Culture No anaerobes isolated 01/23/2025 7:50 AM EDT [facility] Joint Fluid Topography unknown / Unknown Non-blood Collection / Unknown 01/18/2025 3:28 PM EDT 01/18/2025 3:28 PM EDT us Sachin Garza MD LAB MICROBIOLOGY - GENERAL O RDERABLES Final Result Performing Organization Address [facility] Co de Phone Number [facility] [address] [place] [address] * (ABNORMAL) Body Fluid Culture and Gram Stain (01/18/2025 3:28 PM EDT) Culture Heavy Growth 01/20/2025 8:34 AM EDT [facility] Culture Methicillin-Resista nt Staphylococcus aureus(AA) 01/20/2025 8:34 AM EDT [facility] Comment: For susceptibility results refer to: - [facility]-[id number] The organism value for this result has been updated. These results have been appended to the previously preliminary verified report. Edited result: Previously reported as Staphylococcus aureus on 01/19/2025 at 0933 EDT. Staphylococcus aureus has been updated to reportable. Gram Stain Result Numerous Polymorphonuclear leukocytes 01/20/2025 8:34 AM EDT [facility] Gram Stain Result No organisms seen 01/20/2025 8:34 AM EDT [facility] Joint Fluid Topography unknown / Unknown Non-blood Collection / Unknown 01/18/2025 3:28 PM EDT 01/18/2025 3:28 PM EDT us Sachin Garza MD LAB MICROBIOLOGY - GENERAL O RDERABLES Final Result Performing Organization Address [facility] Co de Phone Number [facility] [address] [place] [address] * Body fluid, cytospin, pathologist interpretation (01/18/2025 3:01 PM EDT) Specimen Type Joint Fluid LAB HEMATOLOGY METHOD 01/20/2025 4:29 PM EDT [facility] Specimen Source, Body Fluid Knee, Left LAB HEMATOLOGY METHOD 01/20/2025 4:29 PM EDT [facility] Clinical Diagnosis, Body Fluid Left lower extremity cellulitis LAB HEMATOLOGY METHOD 01/20/2025 4:29 PM EDT [facility] Interpretation , Body Fluid Bloody specimen Acute and chronic inflammatory cells Correlation with microbiology studies recommended A resident was involved in the service. I attest I examined the relevant preparations for the specimens and confirmed the diagnosis or interpretation. 01/20/2025 4:29 PM EDT [facility] Pathologist Signature, Body Fluid 01/20/2025 4:29 PM EDT [facility] Comment:Reviewed by: Stephanie conti MD LAB CP ASR DISCLAIMER Yes 01/20/2025 4:29 PM EDT [facility] Joint Fluid Structure of left knee region / Unknown 01/18/2025 3:01 PM EDT 01/18/2025 3:28 PM EDT us Sachin Garza MD LAB BODY FLUIDS AND STOOLS O RDERABLES Final Result Performing Organization Address [facility] Co de Phone Number [facility] [address] [place] [address] * Joint Fluid Crystals (01/18/2025 3:01 PM EDT) Crystals, Joint Fluid No Crystals Seen No Crystals Present 01/18/2025 5:28 PM EDT [facility] Joint Fluid Structure of left knee region / Unknown 01/18/2025 3:01 PM EDT 01/18/2025 3:28 PM EDT us Sachin Garza MD LAB BODY FLUIDS AND STOOLS O RDERABLES Final Result Performing Organization Address City/[facility] Co de Phone Number [facility] [address] [place] [address] * (ABNORMAL) Body Fluid Cell Count w/ Diff (01/18/2025 3:01 PM EDT) Color, Body fluid Red LAB HEMATOLOGY METHOD 01/18/2025 11:05 PM EDT [facility] Appearance, Body fluid Cloudy(A) LAB HEMATOLOGY METHOD 01/18/2025 11:05 PM EDT [facility] Volume, Body fluid 3.5 cc LAB HEMATOLOGY METHOD 01/18/2025 11:05 PM EDT [facility] Fluid Container Specimen received in EDTA tube LAB HEMATOLOGY METHOD 01/18/2025 11:05 PM EDT [facility] Red Blood Cell Count, Body fluid 299,000 uL LAB HEMATOLOGY METHOD 01/18/2025 11:05 PM EDT [facility] Total Nucleated Cell Count, Body fluid 873 uL LAB HEMATOLOGY METHOD 01/18/2025 11:05 PM EDT [facility] Neutrophils %, Body fluid 17 % LAB HEMATOLOGY METHOD 01/18/2025 11:05 PM EDT [facility] Lymphocytes %, Body fluid 55 % LAB HEMATOLOGY METHOD 01/18/2025 11:05 PM EDT [facility] Monocytes/Macro phages %, Body fluid 27 % LAB HEMATOLOGY METHOD 01/18/2025 11:05 PM EDT [facility] Eosinophils %, Body fluid 1 % LAB HEMATOLOGY METHOD 01/18/2025 11:05 PM EDT [facility] Lining/Mesothel ial Cells %, Body fluid 0 % LAB HEMATOLOGY METHOD 01/18/2025 11:05 PM EDT [facility] Neutrophils Absolute (PMN), Body fluid 148 uL LAB HEMATOLOGY METHOD 01/18/2025 11:05 PM EDT [facility] Lymphocytes Absolute, Body fluid 480 uL LAB HEMATOLOGY METHOD 01/18/2025 11:05 PM EDT [facility] Monocytes/Macro phages Absolute, Body fluid 236 uL LAB HEMATOLOGY METHOD 01/18/2025 11:05 PM EDT [facility] Eosinophils Absolute, Body fluid 9 uL LAB HEMATOLOGY METHOD 01/18/2025 11:05 PM EDT [facility] Basophils Absolute, Body fluid 0 uL LAB HEMATOLOGY METHOD 01/18/2025 11:05 PM EDT [facility] Lining/Mesothel ial Cells Absolute, Body fluid 0 uL LAB HEMATOLOGY METHOD 01/18/2025 11:05 PM EDT [facility] Comment, Body fluid None LAB HEMATOLOGY METHOD 01/18/2025 11:05 PM EDT [facility] Comment:This is an appended report. These results have been appended to a previously preliminary verified report. Basophils %, Body fluid 0 % LAB HEMATOLOGY METHOD 01/18/2025 11:05 PM EDT [facility] Joint Fluid Structure of left knee region / Unknown 01/18/2025 3:01 PM EDT 01/18/2025 3:28 PM EDT us Sachin Garza MD LAB BODY FLUIDS AND STOOLS ORDERABLES NO SPECIMEN TYPE/SOURCE Final Result [facility] [address] [place] [address] * Body Fluid Culture and Gram Stain (01/18/2025 12:17 PM EDT) Culture No growth at day 4 2024 11:06 AM EDT [facility] Gram Stain Result No polymorphonuclear leukocytes seen 01/21/2025 11:06 AM EDT [facility] Gram Stain Result No organisms seen 01/21/2025 11:06 AM EDT [facility] Joint Fluid Synovial fluid specimen / Unknown Non-blood Collection / Unknown 01/18/2025 12:17 PM EDT 01/18/2025 3:24 PM EDT Comment:Pre-op diagnosis: Cellulitis of left lower extremity [L03.116] Dwaine Das DO LAB MICROBIOLOGY - GENERAL ORDERABLES Final Result Performing Organization Address City/[facility]/ZIP Co de Phone Number [facility] [address] [place] [address] * Joint Infection Panel by PCR (01/18/2025 12:17 PM EDT) Anaerococcus prevotii/vaginalis PCR Result Not Detected Not Detected 01/18/2025 5:28 PM EDT [facility] Clostridium perfringens PCR Result Not Detected Not Detected 01/18/2025 5:28 PM EDT [facility] Cutibacterium avidum/granulosum PCR Result Not Detected Not Detected 01/18/2025 5:28 PM EDT [facility] Enterococcus faecalis PCR Result Not Detected Not Detected 01/18/2025 5:28 PM EDT [facility] Enterococcus faecium PCR Result Not Detected Not Detected 01/18/2025 5:28 PM EDT [facility] Finegoldia magna PCR Result Not Detected Not Detected 01/18/2025 5:28 PM EDT [facility] Parvimonas micra PCR Result Not Detected Not Detected 01/18/2025 5:28 PM EDT [facility] Peptoniphilus PCR Result Not Detected Not Detected 01/18/2025 5:28 PM EDT [facility] Peptostreptococcus anaerobius PCR Result Not Detected Not Detected 01/18/2025 5:28 PM EDT [facility] Staphylococcus aureus PCR Result Not Detected Not Detected 01/18/2025 5:28 PM EDT [facility] Staphylococcus lugdunensis PCR Result Not Detected Not Detected 01/18/2025 5:28 PM EDT [facility] Streptococcus spp PCR Result Not Detected Not Detected 01/18/2025 5:28 PM EDT [facility] Streptococcus agalactiae PCR Result Not Detected Not Detected 01/18/2025 5:28 PM EDT [facility] Streptococcus pneumoniae PCR Result Not Detected Not Detected 01/18/2025 5:28 PM EDT [facility] Streptococcus pyogenes PCR Result Not Detected Not Detected 01/18/2025 5:28 PM EDT [facility] Bacteroides fragilis PCR Result Not Detected Not Detected 01/18/2025 5:28 PM EDT [facility] Citrobacter PCR Result Not Detected Not Detected 01/18/2025 5:28 PM EDT [facility] Enterobacter cloacae complex PCR Result Not Detected Not Detected 01/18/2025 5:28 PM EDT [facility] Escherichia coli PCR Result Not Detected Not Detected 01/18/2025 5:28 PM EDT [facility] Haemophilus influenzae PCR Result Not Detected Not Detected 01/18/2025 5:28 PM EDT [facility] Kingella kingae PCR Result Not Detected Not Detected 01/18/2025 5:28 PM EDT [facility] Klebsiella aerogenes PCR Result Not Detected Not Detected 01/18/2025 5:28 PM EDT [facility] Klebsiella pneumoniae group PCR Result Not Detected Not Detected 01/18/2025 5:28 PM EDT [facility] Morganella morganii PCR Result Not Detected Not Detected 01/18/2025 5:28 PM EDT [facility] Neisseria gonorrhoeae PCR Result Not Detected Not Detected 01/18/2025 5:28 PM EDT [facility] Proteus spp PCR Result Not Detected Not Detected 01/18/2025 5:28 PM EDT [facility] Pseudomonas aeruginosa PCR Result Not Detected Not Detected 01/18/2025 5:28 PM EDT [facility] Salmonella spp PCR Result Not Detected Not Detected 01/18/2025 5:28 PM EDT [facility] Serratia marcescens PCR Result Not Detected Not Detected 01/18/2025 5:28 PM EDT [facility] Nelda PCR Result Not Detected Not Detected 01/18/2025 5:28 PM EDT [facility] Nelda albicans PCR Result Not Detected Not Detected 01/18/2025 5:28 PM EDT [facility] CTXM PCR Result Not Detected Not Detected 01/18/2025 5:28 PM EDT [facility] IMP PCR Result Not Detected Not Detected 01/18/2025 5:28 PM EDT [facility] KPC PCR Result Not Detected Not Detected 01/18/2025 5:28 PM EDT [facility] mecA/C and MREJ (MRSA) PCR Result Not Detected Not Detected 01/18/2025 5:28 PM EDT [facility] NDM PCR Result Not Detected Not Detected 01/18/2025 5:28 PM EDT [facility] OXA-48-like PCR Result Not Detected Not Detected 01/18/2025 5:28 PM EDT [facility] Jarret/B PCR Result Not Detected Not Detected 01/18/2025 5:28 PM EDT [facility] VIM PCR Result Not Detected Not Detected 01/18/2025 5:28 PM EDT [facility] Joint Fluid Synovial fluid specimen / Unknown Non-blood Collection / Unknown 01/18/2025 12:17 PM EDT 01/18/2025 3:24 PM EDT Narrative [facility] - 01/18/2025 5:28 PM [...] MICROBIOLOGY - GENERAL O RDERABLES Final Result [facility] [address] [place] [address] * (ABNORMAL) Tissue Culture and Gram Stain (01/18/2025 10:00 AM EDT) Culture Heavy Growth 01/20/2025 8:34 AM EDT [facility] Culture Methicillin-Resista nt Staphylococcus aureus(AA) JOVANI 01/20/2025 8:34 AM EDT [facility] Comment: The organism value for this result has been updated. These results have been appended to the previously preliminary verified report. Edited result: Previously reported as Staphylococcus aureus on 01/19/2025 at 0914 EDT. Staphylococcus aureus has been updated to reportable. Gram Stain Result Numerous Polymorphonuclear leukocytes(A) 01/20/2025 8:34 AM EDT [facility] Gram Stain Result Rare Gram positive cocci in clusters(A) 01/20/2025 8:34 AM EDT [facility] Tissue Topography unknown / [...] Staphylococcus aureus Vancomycin JOVANI 1 ug/ml: [facility] MICRO[facility]OLOGY - GENERAL ORDERABLES Final Result [facility] [address] [place] [address] * Anaerobic Culture (01/18/2025 10:00 AM EDT) Culture No anaerobes isolated 01/23/2025 7:50 AM EDT [facility] Tissue Topography unknown / Unknown 01/18/2025 10:00 AM EDT 01/18/2025 3:26 PM EDT Comment:Pre-op diagnosis: Cellulitis of left lower extremity [L03.116] [employer] LAB MICROBIOLOGY - GENERAL ORDERABLES Final Result Performing Organization Address City/[facility]/ZIP Co de Phone Number [facility] [address] [place] [address] * Body fluid, cytospin, pathologist interpretation (01/18/2025 9:57 AM EDT) Specimen Type Cyst Fluid LAB HEMATOLOGY METHOD 01/20/2025 4:28 PM EDT [facility] Specimen Source, Body Fluid Other (specify site) LAB HEMATOLOGY METHOD 01/20/2025 4:28 PM EDT [facility] Clinical Diagnosis, Body Fluid Left lower extremity cyst fluid LAB HEMATOLOGY METHOD 01/20/2025 4:28 PM EDT [facility] Interpretation , Body Fluid No evidence of malignancy Bloody specimen Acute inflammatory cells Correlation with microbiology studies recommended A resident was involved in the service. I attest I examined the relevant preparations for the specimens and confirmed the diagnosis or interpretation. 01/20/2025 4:28 PM EDT [facility] Pathologist Signature, Body Fluid 01/20/2025 4:28 PM EDT [facility] Comment:Reviewed by: Stephanie conti MD LAB CP ASR DISCLAIMER Yes 01/20/2025 4:28 PM EDT [facility] Cyst Fluid Topography unknown / Unknown 01/18/2025 9:57 AM EDT 01/18/2025 3:19 PM EDT Dwaine Das DO LAB BODY FLUIDS AND STOOLS ORDERABLES Final Result [facility] [address] [place] [address] * (ABNORMAL) Body Fluid Cell Count w/ Diff (01/18/2025 9:57 AM EDT) Color, Body fluid Red LAB HEMATOLOGY METHOD 01/18/2025 7:13 PM EDT [facility] Appearance, Body fluid Cloudy(A) LAB HEMATOLOGY METHOD 01/18/2025 7:13 PM EDT [facility] Volume, Body fluid 10.0 cc LAB HEMATOLOGY METHOD 01/18/2025 7:13 PM EDT [facility] Fluid Container Specimen received in miscellaneous container LAB HEMATOLOGY METHOD 01/18/2025 7:13 PM EDT [facility] Red Blood Cell Count, Body fluid 240,000 uL LAB HEMATOLOGY METHOD 01/18/2025 7:13 PM EDT [facility] Comment:Clot present, may af fect results. Test performed by manual method. Total Nucleated Cell Count, Body fluid 83,500 uL LAB HEMATOLOGY METHOD 01/18/2025 7:13 PM EDT [facility] Comment:Clot present, may af fect results. Test performed by manual method. Neutrophils %, Body fluid 98 % LAB HEMATOLOGY METHOD 01/18/2025 7:13 PM EDT [facility] Lymphocytes %, Body fluid 2 % LAB HEMATOLOGY METHOD 01/18/2025 7:13 PM EDT [facility] Monocytes/Macr ophages %, Body fluid 0 % LAB HEMATOLOGY METHOD 01/18/2025 7:13 PM EDT [facility] Eosinophils %, Body fluid 0 % LAB HEMATOLOGY METHOD 01/18/2025 7:13 PM EDT [facility] Lining/Mesothe lial Cells %, Body fluid 0 % LAB HEMATOLOGY METHOD 01/18/2025 7:13 PM EDT [facility] Neutrophils Absolute (PMN), Body fluid 81,830 uL LAB HEMATOLOGY METHOD 01/18/2025 7:13 PM EDT [facility] Lymphocytes Absolute, Body fluid 1,670 uL LAB HEMATOLOGY METHOD 01/18/2025 7:13 PM EDT [facility] Monocytes/Macr ophages Absolute, Body fluid 0 uL LAB HEMATOLOGY METHOD 01/18/2025 7:13 PM EDT [facility] Eosinophils Absolute, Body fluid 0 uL LAB HEMATOLOGY METHOD 01/18/2025 7:13 PM EDT [facility] Basophils Absolute, Body fluid 0 uL LAB HEMATOLOGY METHOD 01/18/2025 7:13 PM EDT [facility] Lining/Mesothe lial Cells Absolute, Body fluid 0 uL LAB HEMATOLOGY METHOD 01/18/2025 7:13 PM EDT [facility] Comment, Body fluid Bacteria seen. LAB HEMATOLOGY METHOD 01/18/2025 7:13 PM EDT [facility] Basophils %, Body fluid 0 % LAB HEMATOLOGY METHOD 01/18/2025 7:13 PM EDT [facility] Cyst Fluid Topography unknown / Unknown 01/18/2025 9:57 AM EDT 01/18/2025 3:19 PM EDT Comment:Pre-op diagnosis: Cellulitis of left lower extremity [L03.116] Dwaine Das DO LAB BODY FLUIDS AND STOOLS ORDERABLES NO SPECIMEN TYPE/SOURCE Final Result [facility] [address] [place] [address] * (ABNORMAL) Body Fluid Culture and Gram Stain (01/18/2025 9:57 AM EDT) Culture Heavy Growth 01/20/2025 8:34 AM EDT [facility] Culture Methicillin-Resista nt Staphylococcus aureus(AA) 01/20/2025 8:34 AM EDT [facility] Comment: For susceptibility results refer to: - [id number] The organism value for this result has been updated. These results have been appended to the previously preliminary verified report. Edited result: Previously reported as Staphylococcus aureus on 01/19/2025 at 0916 EDT. Staphylococcus aureus has been updated to reportable. Gram Stain Result Numerous Polymorphonuclear leukocytes(A) 01/20/2025 8:34 AM EDT [facility] Gram Stain Result Moderate Gram positive cocci in clusters(A) 01/20/2025 8:34 AM EDT [facility] Cyst Fluid Topography unknown / Unknown 01/18/2025 9:57 AM EDT 01/18/2025 3:26 PM EDT Comment:Pre-op diagnosis: Cellulitis of left lower extremity [L03.116] Dwaine [facility]Love [facility] LAB MICROBIOLOGY - GENERAL ORDERABLES Final Result Performing Organization Address [facility] de Phone Number [facility] [address] [place] [address] * Anaerobic Culture (01/18/2025 9:57 AM EDT) Culture No anaerobes isolated 01/23/2025 7:50 AM EDT [facility] Cyst Fluid Topography unknown / Unknown 01/18/2025 9:57 AM EDT 01/18/2025 3:26 PM EDT Comment:Pre-op diagnosis: Cellulitis of left lower extremity [L03.116] Dwaine [employer] LAB MICROBIOLOGY - GENERAL ORDERABLES Final Result Performing Organization Address [facility] de Phone Number [facility] [address] [place] [address] * Methicillin Resistant Staphylococcus aureus (MRSA) by PCR (01/18/2025 7:43 AM EDT) Methicillin Resistant Staphylococcus aureus (MRSA) by PCR Not Detected Not Detected 01/18/2025 9:36 AM EDT [facility] Swab Both anterior nares / Unknown Non-blood Collection / Unknown 01/18/2025 7:43 AM EDT 01/18/2025 8:19 AM EDT Narrative [facility] - 01/18/2025 9:36 AM [...] MICROBIOLOGY - GENERAL O RDERABLES Final Result [facility] [address] [place] [address] * (ABNORMAL) Basic metabolic panel (01/18/2025 12:18 AM EDT) Pathologist [facility] Glucose, Plasma 105(H) 74 - 99 mg/dL 01/18/2025 1:30 AM EDT [facility] BUN, Plasma 14 7 - 21 mg/dL 01/18/2025 1:30 AM EDT [facility] Creatinine, Plasma 0.80 0.70 - 1.20 mg/dL 01/18/2025 1:30 AM EDT [facility] BUN/Creatinine Ratio 18 01/18/2025 1:30 AM EDT [facility] Sodium, Plasma 137 136 - 145 mmol/L 01/18/2025 1:30 AM EDT [facility] Potassium, Plasma 4.3 3.6 - 4.9 mmol/L 01/18/2025 1:30 AM EDT [facility] Chloride, Plasma 100 97 - 107 mmol/L 01/18/2025 1:30 AM EDT [facility] CO2, Plasma 26 22 - 29 mmol/L 01/18/2025 1:30 AM EDT [facility] Anion Gap 11 6 - 16 mmol/L 01/18/2025 1:30 AM EDT [facility] Total Calcium, Plasma 9.0 8.9 - 10.2 mg/dL 01/18/2025 1:30 AM EDT [facility] eGFRcr 118.4 mL/min/1.7 3m*2 01/18/2025 1:30 AM EDT [facility] Comment:Reported eGFRcr in m L/min/1.73m2 is based the CKD-EPI 2020 equation that does not use a race coefficient. Blood Venous blood specimen / Unknown Venipuncture / Unknown 01/18/2025 12:18 AM EDT 01/18/2025 12:27 AM EDT us Sachin Garza MD LAB BLOOD ORDERABLES Final R esult [facility] [address] [place] [address] * (ABNORMAL) CBC W/O Differential (01/18/2025 12:18 AM EDT) WBC Count 8.77 3.70 - 10.30 10*3/uL LAB HEMATOLOGY METHOD 01/18/2025 12:36 AM EDT [facility] RBC Count 3.94(L) 4.60 - 6.10 10*6/uL LAB HEMATOLOGY METHOD 01/18/2025 12:36 AM EDT [facility] HGB 11.7(L) 13.7 - 17.5 g/dL LAB HEMATOLOGY METHOD 01/18/2025 12:36 AM EDT [facility] HCT 37.1(L) 40.0 - 51.0 % LAB HEMATOLOGY METHOD 01/18/2025 12:36 AM EDT [facility] Platelet Count 347 155 - 369 10*3/uL LAB HEMATOLOGY METHOD 01/18/2025 12:36 AM EDT [facility] MCV 94 79 - 98 fL LAB HEMATOLOGY METHOD 01/18/2025 12:36 AM EDT [facility] MCH 29.7 26.0 - 32.0 pg LAB HEMATOLOGY METHOD 01/18/2025 12:36 AM EDT [facility] MCHC 31.5 30.7 - 35.5 g/dL LAB HEMATOLOGY METHOD 01/18/2025 12:36 AM EDT [facility] RDW 13.1 11.5 - 14.5 % LAB HEMATOLOGY METHOD 01/18/2025 12:36 AM EDT [facility] MPV 9.5 8.8 - 12.5 fL LAB HEMATOLOGY METHOD 01/18/2025 12:36 AM EDT [facility] nRBC 0.0 <=0.0 per 100 WBCs LAB HEMATOLOGY METHOD 01/18/2025 12:36 AM EDT [facility] Blood Venous blood specimen / Unknown Venipuncture / Unknown 01/18/2025 12:18 AM EDT 01/18/2025 12:29 AM EDT us Sachin Garza MD LAB BLOOD ORDERABLES Final R esult Performing Organization Address City/[facility] Co de Phone Number [facility] [address] [place] [address] * Vancomycin, Peak, Plasma Please draw ~2 hours after 1000 dose of vancomycin on Monday finishes infusing. Consider obtaining level via peripheral stick. If peripheral stick is not feasible, please ensure that line is flushed well prior to drawing l... (01/17/2025 2:03 PM EDT) Vancomycin, Peak, Plasma 22.0 20.0 - 40.0 ug/mL 01/17/2025 3:01 PM EDT [facility] Blood Venous blood specimen / Unknown Venipuncture / Unknown 01/17/2025 2:03 PM EDT 01/17/2025 2:32 PM EDT Narrative [facility] - 01/17/2025 3:01 PM EDT Therapeutic Peak level: 20-40ug/mL Supra-therapeutic Peak level: >40 ug/mL us Sachin Garza MD LAB BLOOD ORDERABLES Final R esult Performing Organization Address City/[facility]/ZIP Co de Phone Number [facility] [address] [place] [address] * Vancomycin, Trough, Plasma Please draw ~30 minutes prior to dose due at 1000 on Monday. Please do NOT hold dose awaiting level to return. Consider obtaining level via peripheral stick. If peripheral stick is not feasible, please ensure that line ... (01/17/2025 9:53 AM EDT) Vancomycin, Trough, Plasma 12.5 10.0 - 20.0 ug/mL 01/17/2025 10:24 AM EDT [facility] Blood Venous blood specimen / Unknown Venipuncture / Unknown 01/17/2025 9:53 AM EDT 01/17/2025 9:57 AM EDT Narrative [facility] - 01/17/2025 10:24 AM EDT Therapeutic Trough level: 10-20ug/mL Supra-therapeutic Trough level: >20 ug/mL Sachin Garza MD LAB BLOOD ORDERABLES Final R esult [facility] [address] [place] [address] * (ABNORMAL) Basic metabolic panel (01/17/2025 4:05 AM EDT) Glucose, Plasma 117(H) 74 - 99 mg/dL 01/17/2025 5:16 AM EDT [facility] BUN, Plasma 13 7 - 21 mg/dL 01/17/2025 5:16 AM EDT [facility] Creatinine, Plasma 0.75 0.70 - 1.20 mg/dL 01/17/2025 5:16 AM EDT [facility] BUN/Creatinine Ratio 17 01/17/2025 5:16 AM EDT [facility] Sodium, Plasma 135(L) 136 - 145 mmol/L 01/17/2025 5:16 AM EDT [facility] Potassium, Plasma 4.5 3.6 - 4.9 mmol/L 01/17/2025 5:16 AM EDT [facility] Chloride, Plasma 100 97 - 107 mmol/L 01/17/2025 5:16 AM EDT [facility] CO2, Plasma 25 22 - 29 mmol/L 01/17/2025 5:16 AM EDT [facility] Anion Gap 10 6 - 16 mmol/L 01/17/2025 5:16 AM EDT [facility] Total Calcium, Plasma 9.1 8.9 - 10.2 mg/dL 01/17/2025 5:16 AM EDT [facility] eGFRcr 120.7 mL/min/1.7 3m*2 01/17/2025 5:16 AM EDT [facility] Comment:Reported eGFRcr in m L/min/1.73m2 is based the CKD-EPI 2020 equation that does not use a race coefficient. Blood Venous blood specimen / Unknown Venipuncture / Unknown 01/17/2025 4:05 AM EDT 01/17/2025 4:35 AM EDT us Sachin Garza MD LAB BLOOD ORDERABLES Final R esult [facility] [address] [place] [address] * [place] Extremity Limited MSK or Soft [...] - 99 mg/dL 01/16/2025 5:15 AM EDT [facility] BUN, Plasma 12 7 - 21 mg/dL 01/16/2025 5:15 AM EDT [facility] Creatinine, Plasma 0.66(L) 0.70 - 1.20 mg/dL 01/16/2025 5:15 AM EDT [facility] BUN/Creatinine Ratio 18 01/16/2025 5:15 AM EDT [facility] Sodium, Plasma 136 136 - 145 mmol/L 01/16/2025 5:15 AM EDT [facility] Potassium, Plasma 4.5 3.6 - 4.9 mmol/L 01/16/2025 5:15 AM EDT [facility] Chloride, Plasma 100 97 - 107 mmol/L 01/16/2025 5:15 AM EDT [facility] CO2, Plasma 26 22 - 29 mmol/L 01/16/2025 5:15 AM EDT [facility] Anion Gap 10 6 - 16 mmol/L 01/16/2025 5:15 AM EDT [facility] Total Calcium, Plasma 8.8(L) 8.9 - 10.2 mg/dL 01/16/2025 5:15 AM EDT [facility] eGFRcr 125.4 mL/min/1.7 3m*2 01/16/2025 5:15 AM EDT [facility] Comment:Reported eGFRcr in m L/min/1.73m2 is based the CKD-EPI 2020 equation that does not use a race coefficient. Blood Venous blood specimen / Unknown Venipuncture / Unknown 01/16/2025 4:31 AM EDT 01/16/2025 4:46 AM EDT Jeffrey Matute MD LAB BLOOD ORDERABLES Final Re sult [facility] [address] [place] [address] * Prothrombin Time/INR (01/16/2025 4:31 AM EDT) Prothrombin Time 12.9 12.0 - 14.3 sec 01/16/2025 4:46 AM EDT [facility] INR 1.0 0.9 - 1.1 01/16/2025 4:46 AM EDT [facility] LAB Blood Venous blood specimen / Unknown Venipuncture / Unknown 01/16/2025 4:31 AM EDT 01/16/2025 4:33 AM EDT Narrative [facility] - 01/16/2025 4:46 AM [...] of recurrent AR INR 2.5 to 3.5 us Jeffrey Matute MD LAB BLOOD ORDERABLES Final Re sult [facility] [address] [place] [address] * (ABNORMAL) CBC W/O Differential (01/16/2025 4:31 AM EDT) WBC Count 17.78(H) 3.70 - 10.30 10*3/uL LAB HEMATOLOGY METHOD 01/16/2025 4:36 AM EDT [facility] RBC Count 4.14(L) 4.60 - 6.10 10*6/uL LAB HEMATOLOGY METHOD 01/16/2025 4:36 AM EDT [facility] HGB 12.4(L) 13.7 - 17.5 g/dL LAB HEMATOLOGY METHOD 01/16/2025 4:36 AM EDT [facility] HCT 37.6(L) 40.0 - 51.0 % LAB HEMATOLOGY METHOD 01/16/2025 4:36 AM EDT [facility] Platelet Count 359 155 - 369 10*3/uL LAB HEMATOLOGY METHOD 01/16/2025 4:36 AM EDT [facility] MCV 91 79 - 98 fL LAB HEMATOLOGY METHOD 01/16/2025 4:36 AM EDT [facility] MCH 30.0 26.0 - 32.0 pg LAB HEMATOLOGY METHOD 01/16/2025 4:36 AM EDT [facility] MCHC 33.0 30.7 - 35.5 g/dL LAB HEMATOLOGY METHOD 01/16/2025 4:36 AM EDT [facility] RDW 13.2 11.5 - 14.5 % LAB HEMATOLOGY METHOD 01/16/2025 4:36 AM EDT [facility] MPV 9.3 8.8 - 12.5 fL LAB HEMATOLOGY METHOD 01/16/2025 4:36 AM EDT [facility] nRBC 0.0 <=0.0 per 100 WBCs LAB HEMATOLOGY METHOD 01/16/2025 4:36 AM EDT [facility] Blood Venous blood specimen / Unknown Venipuncture / Unknown 01/16/2025 4:31 AM EDT 01/16/2025 4:33 AM EDT us Jeffrey Matute MD LAB BLOOD ORDERABLES Final Re sult [facility] [address] [place] [address] * CT Tibia Fibula Left w IV [...] at day 5 01/21/2025 2:02 AM EDT [facility] Blood Venous blood specimen / Unknown Venipuncture / Unknown 01/16/2025 12:24 AM EDT 01/16/2025 1:12 AM EDT Narrative [facility] - 01/21/2025 2:02 AM EDT Low blood volume submitted, results may be compromised Gus Vigil APRN LAB MICROBIOLOGY - GENER AL ORDERABLES Final Result [facility] [address] [place] [address] * XR Chest 1 View (01/15/2025 11:21 [...] MD on 01/15/2025 11:40 PM Gus Vigil TAR DISTRIBUTOR OPERATOR IMG XR PROCEDURES Final Result * XR [...] MD on 01/15/2025 11:40 PM Gus Rodger Niall TAR DISTRIBUTOR OPERATOR IMG XR PROCEDURES Final Result * Type [...] ORDERA BLES Final Result Performing Organization Address City/[facility]/ZIP Co de Phone Number BLOOD BANK [address] [place] [address], * ECG Adult (01/15/2025 10:46 PM EDT) EKG DIAGNOSIS CLASS Normal MUSE ECG Ventricular Rate 92 BPM MUSE ECG Atrial Rate 92 BPM MUSE ECG UT Interval 122 ms MUSE ECG QRSD Interval 102 ms MUSE ECG QT Interval 350 ms MUSE ECG QTC Interval 432 ms MUSE ECG P Deep Water 56 degrees MUSE ECG R Deep Water 44 degrees MUSE ECG T Wave Deep Water 57 degrees MUSE ECG Diagnosis Normal sinus [...] at day 5 01/20/2025 11:01 PM EDT [facility] Blood Structure of antecubital vein / Unknown Venipuncture / Unknown 01/15/2025 10:11 PM EDT 01/15/2025 10:19 PM EDT Narrative [facility] - 01/20/2025 11:01 PM EDT Low blood volume submitted, results may be compromised [facility] P [facility] InstituteN LAB MICROBIOLOGY - GENER AL ORDERABLES Final Result Performing Organization Address City/[facility]/ZIP Co de Phone Number [facility] [address] [place] [address] * (ABNORMAL) Sed rate, automated (01/15/2025 10:11 PM EDT) Sedimentation Rate 46(H) <15 mm/hr 2024 10:34 PM EDT [facility] Blood Venous blood specimen / Unknown Venipuncture / Unknown 01/15/2025 10:11 PM EDT 01/15/2025 10:12 PM EDT [facility] P Niall TAR DISTRIBUTOR OPERATOR LAB BLOOD ORDERABLES Fin al Result Performing Organization Address [facility] [place] [address] * (ABNORMAL) C-Reactive protein (01/15/2025 10:11 PM EDT) CRP, Plasma 91.9(H) <=8.0 mg/L 01/15/2025 10:32 PM EDT [facility] Blood Venous blood specimen / Unknown Venipuncture / Unknown 01/15/2025 10:11 PM EDT 01/15/2025 10:12 PM EDT Narrative [facility] - 01/15/2025 10:32 PM EDT This CRP test is appropriate for assessment of infection, systemic inflammation and/or tissue injury. To assess cardiovascular disease risk order high sensitivity CRP (CRPH). [facility] Niall TAR DISTRIBUTOR OPERATOR LAB BLOOD ORDERABLES Fin al Result Performing Organization Address City/[facility]/ZIP Co de Phone Number [facility] [address] [place] [address] * (ABNORMAL) Blood gas panel, venous (01/15/2025 10:11 PM EDT) pH, Venous 7.39 7.32 - 7.43 LAB HEMATOLOGY METHOD 01/15/2025 10:14 PM EDT [facility] pCO2, Venous 47 40 - 55 mmHg LAB HEMATOLOGY METHOD 01/15/2025 10:14 PM EDT [facility] pO2, Venous 34 25 - 40 mmHg LAB HEMATOLOGY METHOD 01/15/2025 10:14 PM EDT [facility] SO2, Measured, Venous 68 65 - 80 % LAB HEMATOLOGY METHOD 01/15/2025 10:14 PM EDT [facility] Base Excess, Venous 2.8 -2.0 - 3.0 mmol/L LAB HEMATOLOGY METHOD 01/15/2025 10:14 PM EDT [facility] Bicarbonate, Calculated, Venous 29(H) 22 - 26 mmol/L LAB HEMATOLOGY METHOD 01/15/2025 10:14 PM EDT [facility] Hematocrit, Whole Blood 40.4 40.0 - 51.0 % LAB HEMATOLOGY METHOD 01/15/2025 10:14 PM EDT [facility] Sodium, Whole Blood 135(L) 136 - 145 mmol/L LAB HEMATOLOGY METHOD 01/15/2025 10:14 PM EDT [facility] Potassium, Whole Blood 4.3 3.6 - 4.9 mmol/L LAB HEMATOLOGY METHOD 01/15/2025 10:14 PM EDT [facility] Chloride, Whole Blood 99 97 - 107 mmol/L LAB HEMATOLOGY METHOD 01/15/2025 10:14 PM EDT [facility] Glucose, Whole Blood 110(H) 74 - 99 mg/dL LAB HEMATOLOGY METHOD 01/15/2025 10:14 PM EDT [facility] Lactate, Venous, Whole Blood 1.1 0.5 - 2.2 mmol/L LAB HEMATOLOGY METHOD 01/15/2025 10:14 PM EDT [facility] Ionized Calcium, Whole Blood 4.6 4.6 - 5.1 mg/dL LAB HEMATOLOGY METHOD 01/15/2025 10:14 PM EDT [facility] Blood Venous blood specimen / Unknown Venipuncture / Unknown 01/15/2025 10:11 PM EDT 01/15/2025 10:12 PM EDT Gus Soares Niall YUN LAB BLOOD ORDERABLES Fin al Result [facility] [address] [place] [address] * (ABNORMAL) CMP (01/15/2025 10:11 PM EDT) Glucose, Plasma 116(H) 74 - 99 mg/dL 01/15/2025 10:32 PM EDT [facility] BUN, Plasma 14 7 - 21 mg/dL 01/15/2025 10:32 PM EDT [facility] Creatinine, Plasma 0.78 0.70 - 1.20 mg/dL 01/15/2025 10:32 PM EDT [facility] BUN/Creatinine Ratio 18 01/15/2025 10:32 PM EDT [facility] Sodium, Plasma 134(L) 136 - 145 mmol/L 01/15/2025 10:32 PM EDT [facility] Potassium, Plasma 4.6 3.6 - 4.9 mmol/L 01/15/2025 10:32 PM EDT [facility] Chloride, Plasma 97 97 - 107 mmol/L 01/15/2025 10:32 PM EDT [facility] CO2, Plasma 24 22 - 29 mmol/L 01/15/2025 10:32 PM EDT [facility] Anion Gap 13 6 - 16 mmol/L 01/15/2025 10:32 PM EDT [facility] Total Calcium, Plasma 8.7(L) 8.9 - 10.2 mg/dL 01/15/2025 10:32 PM EDT [facility] Total Protein 6.5 6.3 - 7.9 g/dL 01/15/2025 10:32 PM EDT [facility] Albumin, Plasma 3.7 3.5 - 5.2 g/dL 01/15/2025 10:32 PM EDT [facility] AST, Plasma 23 10 - 50 U/L 01/15/2025 10:32 PM EDT [facility] ALT, Plasma 52(H) 10 - 50 U/L 01/15/2025 10:32 PM EDT [facility] Alkaline Phosphatase, Plasma 124(H) 40 - 115 U/L 01/15/2025 10:32 PM EDT [facility] Total Bilirubin, Plasma 0.3 0.2 - 1.1 mg/dL 01/15/2025 10:32 PM EDT [facility] eGFRcr 119.3 mL/min/1.7 3m*2 01/15/2025 10:32 PM EDT [facility] Comment:Reported eGFRcr in m L/min/1.73m2 is based the CKD-EPI 2020 equation that does not use a race coefficient. Blood Venous blood specimen / Unknown Venipuncture / Unknown 01/15/2025 10:11 PM EDT 01/15/2025 10:12 PM EDT Gus Vigil TAR DISTRIBUTOR OPERATOR LAB BLOOD ORDERABLES Fin al Result [facility] [address] [place] [address] * PT-INR (01/15/2025 10:11 PM EDT) Prothrombin Time 12.5 12.0 - 14.3 sec 01/15/2025 10:28 PM EDT [facility] INR 1.0 0.9 - 1.1 01/15/2025 10:28 PM EDT [facility] Blood Venous blood specimen / Unknown Venipuncture / Unknown 01/15/2025 10:11 PM EDT 01/15/2025 10:12 PM EDT Narrative [facility] - 01/15/2025 10:28 PM [...] of recurrent AR INR 2.5 to 3.5 Gus Vigil APRN LAB BLOOD ORDERABLES Fin al Result [facility] [address] [place] [address] * (ABNORMAL) CBC w/diff (01/15/2025 10:11 PM EDT) WBC Count 19.24(H) 3.70 - 10.30 10*3/uL LAB HEMATOLOGY METHOD 01/15/2025 10:14 PM EDT [facility] RBC Count 4.33(L) 4.60 - 6.10 10*6/uL LAB HEMATOLOGY METHOD 01/15/2025 10:14 PM EDT [facility] HGB 13.0(L) 13.7 - 17.5 g/dL LAB HEMATOLOGY METHOD 01/15/2025 10:14 PM EDT [facility] HCT 39.3(L) 40.0 - 51.0 % LAB HEMATOLOGY METHOD 01/15/2025 10:14 PM EDT [facility] Platelet Count 383(H) 155 - 369 10*3/uL LAB HEMATOLOGY METHOD 01/15/2025 10:14 PM EDT [facility] MCV 91 79 - 98 fL LAB HEMATOLOGY METHOD 01/15/2025 10:14 PM EDT [facility] MCH 30.0 26.0 - 32.0 pg LAB HEMATOLOGY METHOD 01/15/2025 10:14 PM EDT [facility] MCHC 33.1 30.7 - 35.5 g/dL LAB HEMATOLOGY METHOD 01/15/2025 10:14 PM EDT [facility] RDW 13.2 11.5 - 14.5 % LAB HEMATOLOGY METHOD 01/15/2025 10:14 PM EDT [facility] MPV 9.2 8.8 - 12.5 fL LAB HEMATOLOGY METHOD 01/15/2025 10:14 PM EDT [facility] nRBC 0.0 <=0.0 per 100 WBCs LAB HEMATOLOGY METHOD 01/15/2025 10:14 PM EDT [facility] Differential Type Automated LAB HEMATOLOGY METHOD 01/15/2025 10:14 PM EDT [facility] Neutrophils % 78 % LAB HEMATOLOGY METHOD 01/15/2025 10:14 PM EDT [facility] Lymphocytes % 12 % LAB HEMATOLOGY METHOD 01/15/2025 10:14 PM EDT [facility] Monocytes % 8 % LAB HEMATOLOGY METHOD 01/15/2025 10:14 PM EDT [facility] Eosinophils % 1 % LAB HEMATOLOGY METHOD 01/15/2025 10:14 PM EDT [facility] Basophils % 0 % LAB HEMATOLOGY METHOD 01/15/2025 10:14 PM EDT [facility] Immature Granulocytes % 1 % LAB HEMATOLOGY METHOD 01/15/2025 10:14 PM EDT [facility] Neutrophils Absolute 15.11(H) 1.60 - 6.10 10*3/uL LAB HEMATOLOGY METHOD 01/15/2025 10:14 PM EDT [facility] Lymphocytes Absolute 2.34 1.20 - 3.90 10*3/uL LAB HEMATOLOGY METHOD 01/15/2025 10:14 PM EDT [facility] Monocytes Absolute 1.46(H) 0.30 - 0.90 10*3/uL LAB HEMATOLOGY METHOD 01/15/2025 10:14 PM EDT [facility] Eosinophils Absolute 0.13 0.00 - 0.50 10*3/uL LAB HEMATOLOGY METHOD 01/15/2025 10:14 PM EDT [facility] Basophils Absolute 0.06 0.00 - 0.10 10*3/uL LAB HEMATOLOGY METHOD 01/15/2025 10:14 PM EDT [facility] Immature Granulocytes Absolute 0.14(H) 0.00 - 0.06 10*3/uL LAB HEMATOLOGY METHOD 01/15/2025 10:14 PM EDT [facility] Blood Venous blood specimen / Unknown Venipuncture / Unknown 01/15/2025 10:11 PM EDT 01/15/2025 10:12 PM EDT [facility] - 01/15/2025 10:14 PM EDT Therapeutic decision making should be based on absolute values, rather than percentages. Gus Vigil APRN LAB BLOOD ORDERABLES Fin al Result [facility] [address] [place] [address] documented in this encounter Visit Diagnoses Diagnosis Cellulitis of leg, left- Primary Sepsis following procedure, initial encounter ([facility] Cellulitis of left lower extremity Acute postoperative pain Other acute postoperative pain Closed fracture of left tibial plateau with routine healing, subsequent encounter Cellulitis of leg, left Cellulitis of left lower extremity Sepsis following procedure ([facility]) Closed fracture of left tibial plateau documented in this encounter Admitting Diagnoses Diagnosis Cellulitis of leg, left Cellulitis of left lower extremity Sepsis following procedure ([facility]) Closed fracture of left tibial plateau [...] 8 hours, 3 doses, First dose on 01/20/25 at 2000, Last dose on Mon01/21/25 at [...] at 0753, Until 01/22/25 at 1922, Routine, mild pain Given 01/21/2025 [...] Every 6 hours scheduled, First dose on Mon01/16/25 at 0755, Until Discontinued, Routine 0004 (Given [...] procedure)121 (OCT Unhold - Provider: Automatic Transfer Provider)2001 (Given - Provider: Taryn Miranda RN) 900 (Given - Provider: Katalina Martinez RN)2106 (Given - Provider: Taryn Miranda RN) 0848 [...] Miranda RN) 900 (Given - Provider: Katalina Martinez RN)2107 (Given - Provider: Taryn Miranda RN) 0847 [...] shoulder) 09 (Medication Applied - Provider: Katalina Martinez RN) 0847 (Medication Applied - Provider: Leigh Rg RN) piperacillin-tazobact am (Zosyn) 4.5 g in sodium chloride 0.9% 100 mL IVPB (vial adapter required) (CANCELED) 4.5 g, Intravenous, Every 6 hours, First dose on Mon01/16/25 at 1300, Until Discontinued, Routine 0004 (New Bag - Provider: Taryn Miranda RN)0613 (New Bag - Provider: Taryn Mrianda RN)1556 (New Bag - Provider: Alem Witt [...] (OCT Unhold - Provider: Automatic Transfer Provider) 0901 (Not Given - Provider: Katalina Martinez RN [...] RN)2124 (Given - Provider: Taryn Miranda RN) 619 (Given - Provider: Taryn Miranda, RN) vancomycin in NS (Vancocin) IVPB 1,500 [...] Transfer Provider - Reason: Patient in procedure)121 ([facility] Unhold - Provider: Automatic Transfer Provider)1630 (Not Given - Provider: Alem Witt, SHEREEN - Reason: Patient/family refused)2002 (Given - Provider: Taryn Miranda RN) 431 (Given - Provider: Taryn Miranda RN)2107 (Given - Provider: Taryn Miranda RN) magnesium hydroxide (Milk of Magnesia) 400 MG/5ML suspension 30 mL 30 mL, Oral, Daily PRN, Starting on Sneha 01/16/25 at 0750, Until Mon01/22/25 at 1922, Routine, constipation, if no bowel movement for 48 hours 0924 (OCT Hold - Provider: Automatic Transfer Provider - Reason: Patient in procedure)1217 ([facility] Unhold - Provider: Automatic Transfer Provider) naloxone (Narcan) injection 0.08 mg 0.08 mg, Intravenous, As needed, Starting on Sneha 01/16/25 at 0753, Until Mon01/22/25 at 1922, Routine, respiratory depression, every 2 minutes 0924 ([facility] Hold - Provider: Automatic Transfer Provider - Reason: Patient in procedure)1217 ([facility] Unhold - Provider: Automatic Transfer Provider) ondansetron [...] Mon01/22/25 at 1922, Routine, nausea, vomiting 0924 ([facility] Hold - Provider: Automatic Transfer Provider - Reason: Patient in procedure)121 ([facility] Unhold - Provider: Automatic Transfer Provider) oxyCODONE (Roxicodone) immediate release tablet 10 mg (CANCELED)(Linked Group 3) 10 mg, Oral, Once as needed, 2 doses, Starting on 01/20/25 at 1047, Until Mon01/20/25 at 1217, Routine, Recovery (Phase I only), pain score of 6-8 out of 10 1136 (Given - Provider: Nanda Salas, SHEREEN) oxyCODONE (Roxicodone) immediate release tablet 5 mg (CANCELED) 5 mg, Oral, Every 4 hours PRN, Starting on Sneha 01/16/25 at 0753, Until Mon01/21/25 at 0847, Routine, moderate pain 0004 (Given - Provider: Taryn Miranda, RN)0411 (Given - Provider: Taryn Miranda RN)0924 ([facility] Hold - Provider: Automatic Transfer Provider - Reason: Patient in procedure)1217 ([facility] Unhold - Provider: Automatic Transfer Provider)1556 (Given - Provider: Alem Witt RN)2002 (Given - Provider: Taryn Miranda, RN) 002 (Given - Provider: Taryn Miranda, RN)0433 (Given - Provider: Taryn Miranda RN) oxyCODONE (Roxicodone) immediate release tablet 5 mg 5 mg, Oral, Every 6 hours PRN, Starting on Mon01/21/25 at 0847, Until Mon01/22/25 at 1922, Routine, severe pain 0903 (Given - Provider: Katalina Martinez, SHEREEN)1857 (Given - Provider: Katalina Martinez, RN)2320 (Given - Provider: Taryn Miranda, SHEREEN) 0501 (Given - Provider: Taryn Miranda RN)0924 [...] Transfer Provider - Reason: Patient in procedure)1217 ([facility] Unhold - Provider: Automatic Transfer Provider) 0926 [...] documented as of this encounter Care Teams Learning Center Coordinator Relationship Specialty Start Date End Date Renetta Pardo APRN [address] [place] [address] [place] [address] PCP - General 09/09/23 documented as of this encounter
--- OUTSIDE RECORDS SUMMARY | 2025-01-18 09:01 | XMS_ITS | Encounter Summary ---
Author Organization Healthcare Address [address] [place] [address] Care Team Providers Care Dry Kiln Operator Helper Name Role Phone Renetta Pardo APRN Primary Care Provider [phone] Reason for Visit * Reason Comments Post-op Problem * Auth/Cert (Routine) Specialty Diagnoses / Procedures Referred By Adalid t Referred To Contact Diagnoses Acute postoperative pain Cellulitis of leg, left Cellulitis of left lower extremity Sepsis following procedure, initial encounter ([facility]) recent LLE surgery @ now with cellulitis Sachin Garza MD [address] [address] Phone: tel: fax: PAV H Inpatient [address] [place] [address] Phone: tel: Referral ID Status Reason Start Date Expiration Date Visits Re quested Visits Authorized [id number] 1 1 Encounter Details Date Type Department Care Team (Late st Contact Info) Description 01/18/2025 9:01 AM EDT - 01/18/2025 11:06 AM EDT Surgery P[facility] A OPERATING ROOM [address] [place] [address] Ye Navarro MD [id number] [place] [address] INCISION AND DRAINAGE, LOWER EXTREMITY [...] place to sleep or slept in a chcf (including now)? No 09/12/2023 Humiliation, Afraid, Rape, [...] any time in the past 12 m [facility], were you homeless or living in a chcf (including now)? No 01/17/2025 CAGE ASSESSMENT Answer [...] drink first t traci in the morning (EYE-SPEECH CORRECTION ASSISTANT) to steady your nerves or to get rid of a hangover? 0 09/10/2023 CAGE Questionnaire Score 0 024 Utilities Answer Date Recorded In the past 12 months has th e efw-suhl, gas, oil, or water company threatened to [...] the video go to this web address: https://[email or web address] Or, scan this QR code with your smart phone ?? [facility] * Rosaura Chirinosr, Leigh Ybarra RN - 01/22/2025 4:21 PM EDT Images from the original note were not included. [address]11 Flushing Your PICC Line at Home Your [...] soap and water, use an alcohol-based hand bonding machine tender. The gel should have at least 60% [...] PICC. Last Reviewed Date: 2024 00:00:00 ?? 1016-4002 [employer]. All rights reserved. This information is not intended as a substitute for professional medical care. Always follow your healthcare professional's instructions. * [facility] Leigh Rg RN - 01/22/2025 4:21 PM EDT Images from the original note were not included. 16349 Discharge Instructions: Changing the Dressing on Your [...] damage Last Reviewed Date: 2024 00:00:00 ?? 5475-0199 [employer]. All rights reserved. This information is not [...] the video go to this web address: [email or web address] Or, scan this QR code with your smart phone ?? [facility] * Leigh Muller RN - 01/22/2025 4:20 PM EDT Images from the original note were not included. 84610 Understanding Post Sepsis Syndrome (PSS) Sepsis is [...] infections Last Reviewed Date: 2022 00:00:00 ?? 1145-1542 [employer]. All rights reserved. This information is not intended as a substitute for professional medical care. Always follow your healthcare professional's instructions. * [facility] Leigh Rg RN - 01/22/2025 4:20 PM EDT Images from the original note were not included. [id number] Buckle (Torus) Fracture of a Leg Your [...] wet, you can dry it with a business department chair on the cool setting. ? [...] doctor Last Reviewed Date: 2024 00:00:00 ?? 9677-7044 [employer]. All rights reserved. This information is not intended as a substitute for professional medical care. Always follow your healthcare professional's instructions. * Rosaura Eason - Leigh Rg RN - 01/22/2025 4:20 PM EDT Images from the original note were not included. 04791 Discharge Instructions for Cellulitis You have been [...] are in pain. Ask what kind of bvbc-lox-oltrzbi medicine you can take for pain. ? [...] Vomiting. Last Reviewed Date: 2024 00:00:00 ?? 3052-9192 [employer]. All rights reserved. This information is not intended as a substitute for professional medical care. Always follow your healthcare professional's instructions. * Discharge Summary - Mauricio Mondragon MD - 01/22/2025 4:16 PM EDT Hospitalization Admit Date/Time: 01/15/2025 9:32 PM Admitting Attending: Sachin Garza Discharge Date: 01/22/25 Discharge Attending Physician: Sachin Garza MD PCP name and Address: Renetta Pardo, NEEDLE POLISHER [address] [place] [address] [address] / [facility] [address] Referring provider name and address: Maldonado Luciano PA [address] [place] [address] [place] [address] Chief Concern, Brief History of Present Illness, and Hospital Course Patient arrived to [facility] on 01/15/25 with concern for surgical [...] medications were sent to [facility] -[place], [place] - [address], [facility] [address] DAPTOmycin injection These medications were sent to [facility] - [place], [place] - [address] [facility] [address] oxyCODONE 5 MG immediate release capsule Discharge [...] Sepsis following procedure ([facility]) Cellulitis of left lower [...] Time Provider Department Center 01/27/2025 11:00 AM [facility] ORTHOPAEDICS CHEMICAL ANALYST [facility] 02/03/2025 8:10 AM [...] General: Spoke with: Patient, Family, and Bedside trench digger helper and Interventions: Assessed: Dressing Dressing Interventions: CDI [...] please contact the Orthopedic Transition Nurse at [phone] Monday through Monday 8:00 am to 2:30 pm. If you feel your concern is a medical emergency please call 911 immediately * Progress Notes - Anna Elam RN - 01/22/2025 9:28 AM EDT Case Management Discharge Note Ravin Ribeiro 34 y.o. male CSN: [id number] Admission: 01/15/2025 9:32 PM Primary Problem: Cellulitis of leg, left Primary Taker Off Braker Machine: Primary Caregiver: Self Assistance Available at Discharge: Current Outpatient/Agency/Support Group: DME Availability of Care Givers (#Hours): 24 hours Family/Taker Off Braker Machine(s) Willingness Assessed to care for patient at home: Yes Family/Taker Off Braker Machine(s) Readiness Assessed to care for patient at [...] Community Agency(s): Patient's Choice of Community Agency(s): [facility] Patient/Family Anticipated Services at Transition: Patient/Family Anticipated Services at Transition: outpatient care DME/Equipment Needed after Discharge: Equipment Currently Used at Home: walker, rolling, commode chair, wheelchair, manual Equipment Needed After Discharge: walker, rolling, commode chair Readmission Within the Last 30 Days: Readmission Within the Last 30 Days: other (see comments) (cellulitis) Medicare Documentation: Medicare Second Notice?: No (pt has [place] medicaid) Follow-up: No follow-up provider specified. Discharge Transportation: Transportation Anticipated: family or friend will provide Transportation Home at Discharge: Family/Friend will Provide Has discharge transport been arranged?: No Follow Up Transport: Transportation Needed to Follow up Appoinments: Family/Friend will Provide Additional Comments: Per primary provider, pt is medically ready to discharge home with standard OPAT. PICC in place. Pt will follow up at [facility] for weekly PICC care and labs. First appointment is scheduled for 01/27 at 11 AM. Pt's family will be able to provide assistance and transportation. [facility] will complete teaching today and deliver IV ABX to bedside around 3 PM. Pt and S/O is aware and agreeable to discharge POC. [facility] [phone]-[phone] [phone] Anna Elam RN * Progress Notes - [...] required Ayden Canseco MD PGY-1, Orthopaedic Surgery [facility] Orthopaedic Trauma Service Pager: [phone] Orthopaedic Recon/Spine/Foot and Ankle Service Pager: [phone] Cosigned by Lawrence Hayes MD at 01/22/2025 [...] required Red Mondragon MD Orthopaedic Surgery PGY-1 [facility] Orthopaedic Trauma Service Pager: [phone] Orthopaedic Recon/Spine/Foot and Ankle Service Pager: [phone] Personal Pager: [phone] Cosigned by Lawrence Hayes MD at 01/22/2025 1:06 PM EDT * Procedures - Norma Miranda RN - 01/21/2025 7:01 PM EDTAssociated Order(s): Insert PICC line Insert PICC line Date/Time: 01/21/2025 7:01 PM Performed by: Norma Miranda RN Authorized by: Sachin Garza MD Victoria Protocol: Verbal consent obtained?: Yes Written consent [...] preference Patient position: Supine Catheter Lot #: [id number] Catheter tape maker: HelidyneC Solo Catheter placed: Single lumen Catheter size: 4 Fr Catheter trimmed length: 52 Catheter threaded length: 52 Vein placed in: SVC Catheter cm indwellin Catheter cm outside: 52 Placement confirmed by: KevenSimpleOrder 3CG technology Pre-procedure: Landmarks identified Ultrasound guidance: [...] 01/21/2025 3:28 PM EDT Referrals sent to [facility] and for for possible home IV antibiotic infusion. There was no accepting companies in patient's area. CM spoke with patient and he is agreeable to either go to his local hospital [facility] or come to [facility] in [place] for his weekly PICC care/labs if needed. * Nursing Note - Camden Vital RN - 01/21/2025 1:45 PM EDT Orthopedic Transition Nurse Note General: Spoke with: Patient, Family, and Bedside trench digger helper and Interventions: Assessed: Dressing Dressing Interventions: CDI [...] please contact the Orthopedic Transition Nurse at [phone] Monday through Monday 8:00 am to 2:30 pm. If you feel your concern is a medical emergency please call 911 immediately * Steff Odell RN - 01/21/2025 11:57 AM EDT Images from the original note were not included. [id number] PICC Line Care PICC stands for peripherally [...] arm Last Reviewed Date: 2024 00:00:00 ?? 7264-3732 [employer]. All rights reserved. This information is not intended as a substitute for professional medical care. Always follow your healthcare professional's instructions. * Steff Odell RN - 01/21/2025 11:56 AM EDT Images from the original note were not included. 92985 * Steff Odell RN - 01/21/2025 11:56 AM EDT Images from the original note were not included. 57139 * Steff Odell RN - 01/21/2025 11:56 [...] your house or a medical facility. The director case management/director of social media marketing will setthat up based on your insurance. [...] or during weekends/[place] holidays, call the paging stock crane operator at . Ask for the infectious disease fellow aviation metalsmith. Call the clinic if you have any [...] from the original note were not included. 95428 Flushing Your PICC Line at Home Your [...] soap and water, use an alcohol-based hand bonding machine tender. The gel should have at least 60% [...] PICC. Last Reviewed Date: 2024 00:00:00 ?? 4357-6841 [employer]. All rights reserved. This information is not intended as a substitute for professional medical care. Always follow your healthcare professional's instructions. * Rosaura [facility] - Steff Paz RN - 01/21/2025 11:56 AM EDT Images from the original note were not included. [id number] Daptomycin Injection Brand Name(s): Cubicin??, Cubicin RF??; [...] to the Food and Drug Administration's (FDA) MedGlad to Have Youtch Adverse Event Reporting program online (https://www.fda.gov/Safety/MedWatch) or by phone ( ). What should I do in case of OVERDOSE? In case of overdose, call the poison control helpline at . Information is also available online at https://www.poisonhelp.org/help. If the victim has collapsed, had a seizure, has trouble breathing, or can't be awakened, immediately call emergency services at 263. What OTHER INFORMATION should I know? Keep [...] of all of the prescription and nonprescription (pixr-anf-bwiltfn) medicines you are taking, as well as [...] or pharmacist about specific clinical use. The [place] [employer] represents that the information provided hereunder was formulated with a reasonable standard of care, and in conformity with professional standards in the field. The [place] [employer] makes no [...] drug's actions, uses and side effects. The [place] [employer] does not endorse or recommend the use of any drug.The information is not a substitute for medical care. AHFS?? Patient Medication Information?. ?? Copyright, 2023. The [place] [employer]-System Pharmacists??, [address], [address], [place], [place]. All Rights Reserved. Duplication for commercial use must be authorized by [facility]. Selected Revisions: July 28, 2019. AHFS?? Patient Medication Information?. ?? Copyright, 2024 * Rosaura Eason - Steff Paz RN - 01/21/2025 11:56 AM EDT Images from the original note were not included. 46872 Discharge Instructions: Caring for Your Peripherally Inserted [...] damage. Last Reviewed Date: 2024 00:00:00 ?? 1344-2007 [employer]. All rights reserved. This information is not intended as a substitute for professional medical care. Always follow your healthcare professional's instructions. * Rosaura [facility] - Steff Paz RN - 01/21/2025 11:56 AM EDT Images from the original note were not included. 80763 Central Line Infections You need a central [...] water. Or they use an alcohol-based hand bonding machine tender containing at least 60% alcohol. ? Using [...] (warm or cold), and use alcohol-based hand bonding machine tender with at least 60% alcohol as directed. To clean your hands well,follow the guidelines on this sheet. Visitors should wash their hands well when they arrive and when they leave. ? Make sure healthcare staff and your visitors clean their hands. They should use soap and clean, running water or an alcohol-based hand bonding machine tender before and after checking the line. Don?t [...] good choice for cleaning your hands. The bonding machine tender should have at least 60% alcohol. Note that some germs can't be killed by alcohol. Your healthcare team can answer any questions you have about when to use a hand bonding machine tender, or when it?s better to wash with soap and water. Follow these steps: ? Spread the hand bonding machine tender in the palm of one hand. (Check the package for specific guidelines.) ? Rub your hands together briskly. Clean the backs of your hands, the palms, between your fingers, and up your wrists. ? Rub until the bonding machine tender is gone and your hands are completely [...] skin Last Reviewed Date: 2023 00:00:00 ?? 4296-4045 [employer]. All rights reserved. This information is not [...] Single Lumen PICC Patient Specific Outpatient Circumstances: [address] [place] [address] Family Support: Extended Emergency Contact Information Primary Emergency Contact: Hayley Buenrostro Address: [address] [place] [address] Mobile Relation: Significant Other Preferred language: Mozambican Meat Grader needed? No Secondary Emergency Contact: Jenny Buenrostro Address: [address] [place] [address] Mobile Relation: Mother Contact information: Ravin Ribeiro [phone] (home) Outpatient services (including home infusion, home health, facility referral: See recent [place] case management/social work note for finalization of services ID follow up appointment: Future Appointments Date Time Provider Department Center 02/03/2025 8:10 AM Lawrence Hayes MD [facility] 02/11/2025 1:00 PM Ary Santiago [...] via secure chat or staff messaging in SnapLayout. Patient and family will need to be [...] days prior to presentation. He presented to [facility] wherehe was febrile to 101.3F. Upon transfer [...] PA-C Division of Infectious Diseases Available on SnapLayout Chat History, assessment, and plan discussed with [...] labs to: ID OPAT Team Fax #: [phone] Appointments: Ary Santiago APRN on 02/11 at 1PM and 03/03 at 1PM [facility]: [address] [place] [address] (Select Option 3 for IV Antibiotic / PICC line related issues) For questions regarding OPAT prior to discharge, reach out to the OPAT team via SnapLayout Secure Chat (Group: OPAT Referral Team). For all questions regarding OPAT after discharge should be directed to the OPAT Team at (Select Option 3 for IV Antibiotics/PICC Issues) between 8am-5pm. After 5 pm, or during weekends/[place] holidays, please call the paging stock crane operator at to reach the on-call ID [...] at 01/18/25 1133 [2] Allergies Allergen Reactions [place] Hives * Consults - Delma Ortiz - 01/21/2025 10:00 AM EDT Pastoral Care Note: Patient was appreciative of jd edwards consultant's visit and expressed gratitude to the care team. he said family is on their way to him. Referral From: Breakdown Worker Initiated Pastoral Care Provided For: Patient Patient Profile: Spiritual Assessment: Support Systems/ Spiritual Resources: Treasure, Sense of Peace, Trust, Gratitude Spiritual Needs: Emotional support, Spiritual ritual Spiritual Issues: Discharge Interventions: Pastoral Care Outcomes: Patient Outcomes: Appreciative of Breakdown Worker Support, Expresses acceptance, Gratitude Cosigned by Macrina Dumont at 01/21/2025 6:24 PM EDT Associated attestation - Macrina Dumont - 01/21/2025 6:24 PM EDT This is to attest jd edwards consultant corporate communications intern chart note has been reviewed and [...] ambulate in room/hallway with family and staffing and scheduling coordinator while remains inpatient. Patient demonstrates no further [...] Prevent or Manage Infection Flowsheets (Taken 01/20/2025 9174) Infection Management: aseptic technique maintained Fever Reduction/Comfort [...] Agree with above assessment and evaluation from resident/FORENSIC INVESTIGATOR. * Progress Notes - Anna Elam RN - 01/20/2025 10:48 AM EDT Case Management Adult Progress Note Ravin Ribeiro 34 y.o. male CSN: [id number] Admission: 01/15/2025 9:32 PM Primary Problem: Cellulitis of leg, left Anticipated Discharge Date: TBD Pt to OR today for repeat I&D on left knee. Pt has worsening NORMAN and team wants to repeat AM labs. Final ID recs and OPAT eval are pending. [facility]erral [facility] to [facility] and HH today. Pt's medicaid may be a potential barrier to HH. CM will continue to assist with discharge POC. Anna Elam RN * Op Note - Bob Nava MD - 01/20/2025 10:26 AM EDT Operative Note Date: 01/20/25 Location: [place] Name: Ravin Ribeiro, : 1990, Diagnoses: Pre-op Diagnosis Closed fracture of left tibial plateau with routine healing, subsequent encounter Left proximal tibia (knee region) deep abscess Post-op Diagnosis Closed fracture of left tibial plateau with routine healing, subsequent encounter Left proximal tibia (knee region) deep abscess Procedure(s): Incision and drainage of left knee deep abscess Attending Surgeon(s): * Bob Nava - Primary Rolloff Truck Driver(s): * Emely Giron MD - Resident - [...] days prior to presentation. He presented to [facility] wherehe was febrile to 101.3F. Upon transfer [...] PA-C Division of Infectious Diseases Available on SnapLayout Chat History, assessment, and plan discussed with [...] Gustavo Hightower MD [2] Allergies Allergen Reactions [place] Hives * Consults - Ricco Howard RN [...] required Ayden Canseco MD PGY-1, Orthopaedic Surgery [facility] Orthopaedic Trauma Service Pager: [phone] Orthopaedic Recon/Spine/Foot and Ankle Service Pager: [phone] Cosigned by Sachin Garza MD at 01/20/2025 [...] procedure, initial encounter ([facility]) 2. Cellulitis of left [...] admission Level of Mobility: Ambulatory- community Mobility Cob[place]: Independent gait without device (intermittne use of [...] Mobility Bed Mobility Exam: Scooting/Bridging Level of Coburn: Independent Bed Mobility Exam: Supine to Sit Level of Coburn: Independent Transfers Transfer Exam: Sit to stand Level of Coburn: Stand-by assist Physical/Nonphysical Assist: Verbal Cues Assistive Device: Walker, rolling Transfer Exam: Stand to Sit Level of Coburn: Stand-by assist Physical/Nonphysical Assist: Verbal Cues Assistive Device: Walker, rolling Toilet Transfer Level of Coburn: Stand-by assist Physical/Nonphysical Assist: Verbal Cues Type of Transfer: Ambulation, To toilet Assistive Device: Walker, rolling, Grab bar Functional Mobility Device: Rolling walker Assistance: Standby assist <Household distance, cuing for safety, pacing activity, RW management, and encouraged L LE WBAT-as permitted per chart (pt reports being used to NWB for pain management COURT REPORTER) Balance Postural Appearance Posture: Within Functional Limits [...] at 1:48 PM. * Progress Notes - Svitalna Tena - 01/19/2025 9:02 AM EDT Physical [...] admission Level of Mobility: Ambulatory- community Mobility Cob[place]: Independent gait without device (intermittne use of [...] Mobility Bed Mobility Exam: Scooting/Bridging Level of Coburn: Independent Bed Mobility Exam: Supine to Sit Level of Coburn: Independent Transfers Transfer Exam: Sit to stand Level of Coburn: Stand-by assist Physical/Nonphysical Assist: Verbal Cues Assistive Device: Walker, rolling Transfer Exam: Stand to Sit Level of Coburn: Stand-by assist Physical/Nonphysical Assist: Verbal Cues Assistive [...] 3-5 steps with a railing?: A little [facility] 6-Clicks Mobility Assessment Total : 23 [...] required Red Mondragon MD Orthopaedic Surgery PGY-1 [facility] Orthopaedic Trauma Service Pager: [phone] Orthopaedic Recon/Spine/Foot and Ankle Service Pager: [phone] Personal Pager: [phone] Cosigned by Ye Navarro MD at 01/21/2025 [...] Attending Surgeon(s): * Ye Navarro - Primary Rolloff Truck Driver(s): * Harvey Swift MD - Resident - 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 trench digger helper and Interventions: Assessed: Wound 01/01/25 Surgical Open Surgical Incision Pretibial Left;Proximal (Active) Wound Assessment Red 01/15/25 2150 Margins Well-defined edges;Attached edges 01/15/252149 Janeth-Wound Assessment Red 01/15/25 2150 Closure [place] 01/15/252149 Wound 01/01/25 Face Left;Upper (Active) Education: Education provided on: Pain protocol/management Plan of Care: Follow up with TBD. Op-Plan: Awaiting to see how patient responds to IV abx. Contact Card Given: no Comments: Team is waiting to see if patient improves on IV abx. Awaiting ID recs. For medical questions or concerns after discharge, please contact the Orthopedic Transition Nurse at [phone] Monday through Monday 8:00 am to 2:30 [...] ] Family [ ] Friend [ ] Meat Grader [X] Medical records HISTORY OF PRESENT ILLNESS: [...] medial pretibial incision so he presented to [facility] for evaluation. He was febrile to101.3F at [...] on day of presentation. He lives in [place] with his , CONSTANZA, and 2 young [...] days prior to presentation. He presented to [facility] wherehe was febrile to 101.3F. Upon transfer [...] PA-C Division of Infectious Diseases Available on SnapLayout Chat History, assessment, and plan discussed with ID attending, Dr. Azucena Collado The following complex inpatient infectious disease services were performed today: Complex antimicrobial therapy counseling and treatment [1] History reviewed. No pertinent past medical history. [2] Past Surgical History: Procedure Laterality Date LEG SURGERY Left [3] Allergies Allergen Reactions [place] Hives [4] Current Facility-Administered Medications Medication Dose [...] Note Ravin Ribeiro 34 y.o. male CSN: [id number] Admission: 01/15/2025 9:32 PM Primary Problem: Cellulitis of leg, left Control And Recovery Special Tactics reviewed chart and spoke with patient to complete this Initial Case Management Assessment. PCP: Renetta Pardo APRN Emergency Contact: Extended Emergency Contact Information Primary Emergency Contact: Hayley Buenrostro Address: [address] [place] [address] Mobile Relation: Significant Other Preferred language: Mozambican Meat Grader needed? No Secondary Emergency Contact: Jenny Buenrostro Address: [address] [place] [address] Mobile Relation: Mother Insurance: Primary Visit Coverage Payer Plan Sponsor Code Group Number Group Name PASSPORT MEDICAID MOLINA PASSPORT MOLINA MEDICAID Primary Visit Coverage Subscriber Subscriber ID Subscriber Name Subscriber N Subscriber Address [id number] RAVIN RIBEIRO [id number] [place] [address] Patient information: Primary Caregiver: Self Support System: Immediate family Daily Living Activities: Functional Status: Independent Living Arrangements: Spouse/Significant other, Family Type of Residence: Private residence, Single Level [address] [place] [address] Current DME: Equipment Currently Used at Home: [...] Outpatient Dialysis Services: Living Will/Advance Directive/Power of Construction Materials Tester /Guardian: Have you reviewed your Advance [...] Pt states he lives at home in [place] with his , MIL, and two small 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 Mitch Giron MD PGY-3, Orthopaedic Surgery [facility] Orthopaedic Trauma Service Pager: [phone] Orthopaedic Recon/Spine/Foot and Ankle Service Pager: [phone] Cosigned by Sachin Garza MD at 01/18/2025 [...] your wound. Based upon recent changes to [place] law related to prescribing opioid pain medications, [...] please contact the Orthopedic Transition Nurse at [phone] Monday through Monday 8:00 am to 2:30 [...] examinations Tabitha Howard MD PGY-2, Orthopaedic Surgery [facility] Cosigned by Sachin Garza MD at [...] fracture WRadha Howard MD PGY-2, Orthopaedic Surgery [facility] Orthopaedic Trauma Service Pager: [phone] Orthopaedic Recon/Spine/Foot and Ankle Service Pager: [phone] [1] History reviewed. No pertinent past medical [...] 25 tablet 0 [4] Allergies Allergen Reactions [place] Hives Cosigned by Sachin Garza MD at [...] procedure, initial encounter ([facility]) Cellulitis of left lower [...] procedure, initial encounter ([facility]). Diagnoses of Cellulitis of [...] Drug use: Never [5] Allergies Allergen Reactions [place] Hives Gus Vigil APRN 01/16/25 0657 Cosigned [...] procedure, initial encounter ([facility]) Cellulitis of left lower extremity Acute postoperative pain Ultimately, this patient Was admitted (Admission) The primary encounter diagnosis was Sepsis following procedure, initial encounter ([facility]). Diagnoses of Cellulitis of [...] Description 02/03/2025 8:10 AM EDT Office Visit [facility] Orthopaedic Surgery & Sports Medicine [address] [place] [address] Lawrence Hayes MD [address] [facility] [address] [place] [id number] 02/11/2025 1:00 PM EDT Office Visit [facility] [address] [place] [address] Ary Santiago, NEEDLE POLISHER [address] [facility] [address] [place] [address] 03/03/2025 1:00 PM EDT Office Visit [facility] [address] [place] [address] Ary Santiago, NEEDLE POLISHER [address] [address] Pending Results Name Type Priority Associated [...] left lower extremity ANAEROBIC CULTURE Routine 01/18/2025 9: 57 AM EDT Cellulitis of left lower extremity [...] ORDERABLES Final Res ult Performing Organization Address City/[facility]/ZIP Co de Phone Number [facility] [address] [place] [address] * Lavender Top (01/22/2025 5:04 AM EDT) Extra Hold for add-ons 01/22/2025 8:02 AM EDT [facility] Comment:Auto resulted. Blood Venous blood specimen / Unknown 01/22/2025 5:04 AM EDT 01/22/2025 5:30 AM EDT us Sachin Garza MD LAB BLOOD ORDERABLES Final R esult Performing Organization Address [facility]/ZIP Co de Phone Number [facility] [address] [place] [address] * (ABNORMAL) Basic metabolic panel (01/22/2025 5:04 [...] [facility] [address] [place] [address] * (ABNORMAL) CBC (01/21/2025 7:29 PM EDT) [...] [facility] [address] [place] [address] * (ABNORMAL) Basic metabolic panel (01/21/2025 7:29 [...] [facility] [address] [place] [address] * PICC SINGLE LUMEN (SMARTFORM LINK) (01/21/2025 7:01 PM EDT) Narrative Norma Miranda RN - 01/21/2025 7:01 PM EDT Norma Miranda RN 01/21/2025 7:19 PM Insert PICC line Date/Time: 01/21/2025 7:01 PM Performed by: Norma Miranda RN Authorized by: Sachin Garza MD Victoria Protocol: Verbal consent obtained?: Yes Written consent [...] preference Patient position: Supine Catheter Lot #: [id number] Catheter tape maker: [email or web address] Solo Catheter placed: Single lumen Catheter size: [...] tibial plateau with routine healing, subsequent encounter [S85.142D] us Bob Nava MD LAB MICROBIOLOGY - GENERAL O RDERABLES Final Result [facility] [address] [place] [address] * Tissue Culture and Gram Stain (01/20/2025 [...] O RDERABLES Final Result Performing Organization Address City/[facility]/ZIP Co de Phone Number [facility] [address] [place] [address] * Tissue Culture and Gram Stain (01/20/2025 [...] [facility] [address] [place] [address] * (ABNORMAL) Creatine Kinase (CK), Total (01/20/2025 3:40 AM EDT) Creatine Kinase, Plasma 18(L) 49 - 320 U/L 01/21/2025 12:17 PM EDT [facility] Blood Venous blood specimen / Unknown Venipuncture / Unknown 01/20/2025 3:40 AM EDT 01/20/2025 3:57 AM EDT Sachin Garza MD LAB BLOOD ORDERABLES Final R esult [facility] [address] [place] [address] * Vancomycin, random (01/20/2025 3:40 AM EDT) Pathologist [facility] Vancomycin, Random, Plasma 20.1 ug/mL 01/20/2025 4:51 AM EDT [facility] Blood Venous blood specimen / Unknown Venipuncture / Unknown 01/20/2025 3:40 AM EDT 01/20/2025 3:57 AM EDT Sachin Garza MD LAB BLOOD ORDERABLES Final R esult [facility] [address] [place] [address] * Protime-INR (01/20/2025 3:40 AM EDT) Pathologist [facility] Prothrombin Time 13.5 12.0 - 14.3 sec [...] INR 2.5 to 3.5 Prevention of recurrent TX INR 2.5 to 3.5 us Sachin Garza MD LAB BLOOD ORDERABLES Final R esult [facility] [address] [place] [address] * (ABNORMAL) Basic metabolic panel (01/20/2025 3:40 AM EDT) [facility] Glucose, Plasma 87 74 - 99 mg/dL [...] [facility] [address] [place] [address] * (ABNORMAL) CBC W/O Differential (01/20/2025 3:40 [...] ORDERABLES Final R esult Performing Organization Address City/[facility]/ZIP Co de Phone Number [facility] [address] [place] [address] * Vancomycin, random (01/19/2025 11:48 AM EDT) Vancomycin, Random, Plasma 22.9 ug/mL 01/19/2025 1:05 PM EDT [facility] Blood Venous blood specimen / Unknown Venipuncture / Unknown 01/19/2025 11:48 AM EDT 01/19/2025 11:50 AM EDT Sachin Garza MD LAB BLOOD ORDERABLES Final R esult [facility] [address] [place] [address] * (ABNORMAL) Basic Metabolic Panel, Plasma (01/18/2025 [...] [facility] [address] [place] [address] * (ABNORMAL) CBC W/O Differential (01/18/2025 11:54 [...] [facility] [address] [place] [address] * Anaerobic Culture (01/18/2025 3:28 PM EDT) Culture No anaerobes isolated 01/23/2025 7:50 AM EDT [facility] Joint Fluid Topography unknown / Unknown Non-blood Collection / Unknown 01/18/2025 3:28 PM EDT 01/18/2025 3:28 PM EDT us Sachin Garza MD LAB MICROBIOLOGY - GENERAL O RDERABLES Final Result [facility] [address] [place] [address] * (ABNORMAL) Body Fluid Culture and Gram Stain (01/18/2025 3:28 PM EDT) Culture Heavy Growth 01/20/2025 8:34 AM EDT [facility] Culture Methicillin-Resista nt Staphylococcus aureus(AA) 01/20/2025 8:34 AM EDT [facility] Comment: For susceptibility results refer to: - [id number] The organism value for this result has [...] [facility] [address] [place] [address] * Body fluid, cytospin, pathologist interpretation (01/18/2025 [...] Final Result Performing Organization Address [facility]/ZIP Co de Phone Number [facility] [address] [place] [address] * Joint Fluid Crystals (01/18/2025 3:01 PM EDT) Crystals, Joint Fluid No Crystals Seen No Crystals Present 01/18/2025 5:28 PM EDT [facility] Joint Fluid Structure of left knee region / Unknown 01/18/2025 3:01 PM EDT 01/18/2025 3:28 PM EDT us Sachin Garza MD LAB BODY FLUIDS AND STOOLS O RDERABLES Final Result Performing Organization Address [facility] Co de Phone Number [facility] [address] [place] [address] * (ABNORMAL) Body Fluid Cell Count w/ [...] [facility] [address] [place] [address] * Body Fluid Culture and Gram Stain [...] diagnosis: Cellulitis of left lower extremity [L03.116] Dwanie Yevtukh DO LAB MICROBIOLOGY - GENERAL ORDERABLES Final Result [facility] [address] [place] [address] * Joint Infection Panel by PCR (01/18/2025 [...] Detected Not Detected 01/18/2025 5:28 PM EDT [facility] Streptococcus spp PCR Result Not Detected Not Detected 01/18/2025 5:28 PM EDT [facility] Streptococcus agalactiae PCR Result Not Detected Not Detected 01/18/2025 5:28 PM EDT [facility] Streptococcus pneumoniae PCR Result Not Detected Not Detected 01/18/2025 5:28 PM EDT [facility] Streptococcus pyogenes PCR Result Not Detected Not Detected 01/18/2025 5:28 PM EDT [facility] Bacteroides fragilis PCR Result Not [...] Detected Not Detected 01/18/2025 5:28 PM EDT [facility] Neisseria gonorrhoeae PCR Result Not Detected Not Detected 01/18/2025 5:28 PM EDT [facility] Proteus spp PCR Result Not Detected Not Detected 01/18/2025 5:28 PM EDT [facility] Pseudomonas aeruginosa PCR Result Not Detected [...] [facility] [address] [place] [address] * (ABNORMAL) Tissue Culture and Gram Stain [...] ug/ml: Susceptible Methicillin-Resistant Staphylococcus aureus Trimethoprim/Sulfamethoxa zole OJVANI <=0.5/9.5 ug/ml: Susceptible Methicillin-Resistant Staphylococcus aureus Vancomycin JOVANI 1 ug/ml: Susceptible [facility] MICROBIOLOGY - GENERAL ORDERABLES Final Result Performing Organization Address [facility]/ZIP Co de Phone Number [facility] [address] [place] [address] * Anaerobic Culture (01/18/2025 10:00 AM EDT) Culture No anaerobes isolated 01/23/2025 7:50 AM EDT [facility] Tissue Topography unknown / Unknown 01/18/2025 10:00 AM EDT 01/18/2025 3:26 PM EDT Comment:Pre-op diagnosis: Cellulitis of left lower extremity [L03.116] [facility] MICROBIOLOGY - GENERAL ORDERABLES Final Result Performing Organization Address [facility] Co de Phone Number [facility] [address] [place] [address] * Body fluid, cytospin, pathologist interpretation (01/18/2025 [...] EDT 01/18/2025 3:19 PM EDT Dwaine Das LAB BODY FLUIDS AND STOOLS ORDERABLES Final Result [facility] [address] [place] [address] * (ABNORMAL) Body Fluid Cell Count w/ [...] [facility] [address] [place] [address] * (ABNORMAL) Body Fluid Culture and Gram Stain (01/18/2025 9:57 AM EDT) Culture Heavy Growth 01/20/2025 8:34 AM EDT [facility] Culture Methicillin-Resista nt Staphylococcus aureus(AA) 01/20/2025 8:34 AM EDT [facility] Comment: For susceptibility results refer to: - [id number] The organism value for this result has [...] Cellulitis of left lower extremity [L03.116] Dwaine [facility] LAB MICROBIOLOGY - GENERAL ORDERABLES Final Result Performing Organization Address City/[facility]/ZIP Co de Phone Number [facility] [address] [place] [address] * Anaerobic Culture (01/18/2025 9:57 AM EDT) Culture No anaerobes isolated 01/23/2025 7:50 AM EDT [facility] Cyst Fluid Topography unknown / Unknown 01/18/2025 9:57 AM EDT 01/18/2025 3:26 PM EDT Comment:Pre-op diagnosis: Cellulitis of left lower extremity [L03.116] [facility] LAB MICROBIOLOGY - GENERAL ORDERABLES Final Result Performing Organization Address City/[facility]/ZIP Co de Phone Number [facility] [address] [place] [address] * Methicillin Resistant Staphylococcus aureus (MRSA) by [...] [facility] [address] [place] [address] * (ABNORMAL) Basic metabolic panel (01/18/2025 12:18 [...] [facility] [address] [place] [address] * (ABNORMAL) CBC W/O Differential (01/18/2025 12:18 [...] R esult Performing Organization Address [facility] de Phone Number [facility] [address] [place] [address] * Vancomycin, Peak, Plasma Please draw ~2 [...] R esult Performing Organization Address [facility] de Phone Number [facility] [address] [place] [address] * Vancomycin, Trough, Plasma Please draw ~30 [...] [facility] [address] [place] [address] * (ABNORMAL) Basic metabolic panel (01/17/2025 4:05 [...] [facility] [address] [place] [address] * [place] Extremity Limited MSK or Soft [...] ORDERABLES Final Re sult Performing Organization Address City/State/[facility] Co de Phone Number [facility] [address] [place] [address] * Prothrombin Time/INR (01/16/2025 4:31 AM EDT) [...] INR 2.5 to 3.5 Prevention of recurrent TX INR 2.5 to 3.5 us Jeffrey Matute MD LAB BLOOD ORDERABLES Final Re sult [facility] [address] [place] [address] * (ABNORMAL) CBC W/O Differential (01/16/2025 4:31 [...] [facility] [address] [place] [address] * CT Tibia Fibula Left w IV [...] [facility] [address] [place] [address] * XR Chest 1 View (01/15/2025 11:21 [...] ORDERA BLES Final Result Performing Organization Address [facility] Co de Phone Number BLOOD BANK [address] [place] [address], [place] * ECG Adult (01/15/2025 10:46 PM EDT) EKG DIAGNOSIS CLASS Normal MUSE ECG Ventricular Rate 92 BPM MUSE ECG Atrial Rate 92 BPM MUSE ECG TN Interval 122 ms MUSE ECG QRSD Interval 102 ms MUSE ECG QT Interval 350 ms MUSE ECG QTC Interval 432 ms MUSE ECG P [place] 56 degrees MUSE ECG R [place] 44 degrees MUSE ECG T Wave [place] 57 degrees MUSE ECG Diagnosis Normal sinus rhythm MUSE ECG Diagnosis Normal ECG MUSE ECG Diagnosis MUSE ECG Diagnosis Confirmed by Richard Mccracken ([id number]) on 01/16/2025 8:55:10 PM MUSE ECG 01/15/2025 10:4 6 PM EDT 01/16/2025 8:55 PM EDT Ye Navarro MD ECG ORDERABLES Final Resu lt Performing Organization Address [facility] Co de Phone Number MUSE [...] AL ORDERABLES Final Result Performing Organization Address [facility]/ZIP Co de Phone Number [facility] [address] [place] [address] * (ABNORMAL) Sed rate, automated (01/15/2025 10:11 PM EDT) Pathologist [facility] Sedimentation Rate 46(H) <15 mm/hr 2024 10:34 PM EDT [facility] Blood Venous blood specimen / Unknown Venipuncture / Unknown 01/15/2025 10:11 PM EDT 01/15/2025 10:12 PM EDT [facility] BLOOD ORDERABLES Fin al Result Performing Organization Address [facility] Co de Phone Number [facility] [address] [place] [address] * (ABNORMAL) C-Reactive protein (01/15/2025 10:11 PM EDT) [facility] CRP, Plasma 91.9(H) <=8.0 mg/L 01/15/2025 [...] disease risk order high sensitivity CRP (CRPH). [facility] LAB BLOOD ORDERABLES Fin al Result Performing Organization Address City/[facility]/ZIP Co de Phone Number [facility] [address] [place] [address] * (ABNORMAL) Blood gas panel, venous (01/15/2025 [...] [facility] [address] [place] [address] * (ABNORMAL) CMP (01/15/2025 10:11 PM EDT) [facility] Signature Glucose, Plasma 116(H) 74 - 99 mg/dL [...] 10:11 PM EDT 01/15/2025 10:12 PM EDT [facility] BLOOD ORDERABLES Fin al Result Performing Organization Address City/[facility] Co de Phone Number [facility] [address] [place] [address] * PT-INR (01/15/2025 10:11 PM EDT) Prothrombin Time 12.5 12.0 - 14.3 sec 01/15/2025 10:28 PM EDT [facility] INR 1.0 0.9 - 1.1 01/15/2025 10:28 PM EDT [facility] Blood Venous blood specimen / Unknown Venipuncture [...] INR 2.5 to 3.5 Prevention of recurrent TX INR 2.5 to 3.5 [facility] NEEDLE POLISHER LAB BLOOD ORDERABLES Fin al Result Performing Organization Address City/[facility] Co de Phone Number [facility] [address] [place] [address] * (ABNORMAL) CBC w/diff (01/15/2025 10:11 PM [...] absolute values, rather than percentages. Gus Vigil NEEDLE POLISHER LAB BLOOD ORDERABLES Fin al Result [facility] [address] [place] [address] documented in this encounter Visit Diagnoses Diagnosis [...] 0900, Routine 0847 (New Bag - Provider: eLigh Rg RN) DAPTOmycin (Cubicin) 1,100 mg in [...] Taryn Miranda RN)2124 (Given - Provider: Taryn Miranda, SHEREEN) 06 (Given - Provider: Taryn Miranda RN) vancomycin in NS (Vancocin) IVPB 1,500 mg (COMPLETED) 1,500 mg, Intravenous, Once, 1 dose, On Mon01/20/25 at 1200, at 166.7 mL/hr, Routine 1400 (New Bag - Provider: Alem Witt SHEREEN) PRN Medication Order 01/20/2025 01/21/2025 01/22/2025 bisacodyl (Dulcolax) suppository 10 mg 10 mg, Rectal, Daily PRN, Starting on Sneha 01/16/25 at 0750, Until Mon01/22/25 at 1922, Routine, constipation, if no bowel movement for 72 hours and no response to magnesium hydroxide 0924 ([facility] Hold - Provider: Automatic Transfer Provider - Reason: Patient in procedure)1216 ([facility] Unhold - Provider: Automatic Transfer Provider) [...] 0411 (Given - Provider: Taryn Miranda RN)09 ([facility] Hold - Provider: Automatic Transfer Provider - Reason: Patient in procedure)1216 ([facility] Unhold - Provider: Automatic Transfer Provider)1630 [...] no bowel movement for 48 hours 0924 ([facility] Hold - Provider: Automatic Transfer Provider - Reason: Patient in procedure)121 ([facility] Unhold - Provider: Automatic Transfer Provider) [...] documented as of this encounter 

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
--- OUTSIDE RECORDS SUMMARY | 2025-01-20 09:49 | XMS_ITS | Encounter Summary ---
Author Organization Healthcare Address [address] [place] [address] Care Team Providers Care Mold Designer Name Role Phone Renetta Pardo APRN Primary Care Provider [phone] Reason for Visit * Auth/Cert (Routine) Specialty Diagnoses / Procedures Referred By Raymondac t Referred To Contact Diagnoses Acute postoperative pain Cellulitis of leg, left Cellulitis of left lower extremity Sepsis following procedure, initial encounter ([facility]) recent LLE surgery @ now with cellulitis Sachin Garza MD [address] [facility] [address] [place] [address] Phone: tel: fax: P[facility] H Inpatient [address] [place] [address] Phone: tel: Referral ID Status Reason Start Date Expiration Date Visits Re quested Visits Authorized [id number] 1 1 Encounter Details Date Type Department Care Team (Late st Contact Info) Description 01/20/2025 9:49 AM EDT Anesthesia Event [facility] A OPERATING ROOM [address] [place] [address] Filemon Matute MD [address] [place] [address] Gladis Tejada APRN [address] [place] [address] Anesthesia Record Procedure Summary Procedure Name Responsible Anesthesiologist Anesthesia Start Time Anesthesia Stop Time INCISION AND DRAINAGE, LOWER EXTREMITY (Left: Leg Lower) Filemon Matute MD 01/20/25 0949 01/20/25 1132 Events Date Time Event Comment 01/20/2025 0828 0949 In Room 0949 An Start The patient was reevaluated immediately before sedation and remains eligible for anesthesia plan. 0949 An Start Data 0955 An Induction The patient was reevaluated immediately before moderate or deep sedation use and before anesthesia induction. 0956 An Intubation 0957 Anesthesia Ready 1026 Proc Start 1107 Proc Fin 1121 An Extubation 1124 an stop data 1128 Out of Room 1132 Handoff to Receiving I compl eted my handoff to the receiving clinician during which we: 1. Identified the patient 2. Identified the responsible provider 3. Reviewed the pertinent medical history 4. Discussed the surgical course 5. Reviewed intra-op anesthesia management and issues during anesthesia 6. Set expectations for post-procedure period 7. Allowed opportunity for questions and acknowledgement of understanding. 1132 An Stop Meds Name Total fentaNYL (Sublimaze) injection 50 mcg/mL 100 mcg lidocaine PF (Xylocaine-MPF) 2% 100 mg propofol (Diprivan) injection 10 mg/mL 2 50 mg rocuronium (ZeMuron) injection 10 mg/mL 80 mg dexamethasone (Decadron) injection 4 mg/ mL 4 mg ePHEDrine injection prefilled syringe 5 mg/mL 10 mg phenylephrine (Evan-Synephrine) prefilled syringe 1 mg/10 mL 600 mcg ondansetron (Zofran) injection 2 mg/mL 4 mg dexmedetomidine (Precedex) injection 100 mcg/mL 16 mcg ceFAZolin (Ancef) injection 3 g 0 g lactated Ringer's infusion 500 mL * Agents No agents on file. * Blood No blood administrations on file. Lines, Drains, and Airways Type Details Placement Removal Wound 01/01/25; Surgical; Open Surg; Pretibial; Left, Proximal 01/01/25 0000 by Christiana Nolan RN Wound 01/01/25; 1611; (abrasion); Face; Left, Upper 01/01/25 1611 by Teri Mares RN Negative Pressure Wound Therapy 01/20/25; 1100; N; MD Beltran; Leg; Anterior, Left, Lower, Proximal 01/20/25 1100 by Shell Barney RN Peripheral IV Placement Date: 01/18/25; Placement Time: 0650; Catheter Size: 20 G; Orientation: Right; Location: Antecubital; Site Prep: Alcohol; Local Anesth: None; Inserted by: Kaleb REGAN; Insertion Attempts: 1; Removal Date: 01/21/25; Removal Time: 220; Removal Reason: Other (Comment) 01/18/25 0650 by Luisito Herr RN 01/21/25 2206 by Taryn Miranda RN Peripheral IV Placement Date: 01/18/25; Placement Time: 0913 (created via procedure documentation); Catheter Size: 18 G; Orientation: Left; Location: Forearm; Local Anesth: None; Technique: Anatomical landmarks; Inserted by: Mark Little MD; Insertion Attempts: 1; Removal Date: 01/21/25; Removal Time: 0430; Removal Reason: Leaking 01/18/25 0913 by Sterling Arriaga DO 01/21/25 0430 by Taryn Miranda RN Negative Pressure Wound Therapy 01/18/25; 1100; N; Dr. Recio; Yes; Leg; Anterior, Left, Lower, Proximal; 01/20/25; 1008; Per order 01/18/25 1100 by Silvia Andersen RN 01/20/25 1008 by Shell Barney RN ETT Placement Date: 01/20/25; Placement Time: 0956 (created via procedure documentation); Mask Ventilation: 1; Technique: Direct laryngoscopy; Type: ETT - single; Single Lumen Tube Size: 7.5 mm; Cuffed: Yes; Laryngoscope: Anna; Blade Size: 3; Location: Oral; Grade View: Grade IIa; Insertion Attempts: 1; Placement Verification: Auscultation, Capnometry; Airway Comments: Bilateral Breath Sounds, (+) ETCO2, Atraumatic, No change to dentition. Large tongue, cricoid pressure used to obtain view.; Placed by: Anesthesiologist; Removal Date: 01/20/25; Removal Time: 1121 01/20/25 0956 by Cooper Owen DO 01/20/25 1121 by Cooper Owen DO Peripheral IV Placement Date: 01/20/25; Placement Time: 1010 (created via procedure documentation); Catheter Size: 18 G; Orientation: Left; Location: Hand; Technique: Anatomical landmarks; Insertion Attempts: 1; Removal Date: 01/21/25; Removal Time: 0430; Removal Reason: Occluded 01/20/25 1010 by Cooper Owen, DO 01/21/25 0430 by Taryn Miranda RN Closed/Suction Drain 01/20/25; 1051; Lef t, Anterior; Knee; Accordion; 10 Fr.; Other (Comment) (per provider) 01/20/25 1051 by Shell Barney RN 01/22/25 0000 by Leigh Rg RN documented in this encounter Social History [...] place to sleep or slept in a fci (including now)? No 09/12/2023 Humiliation, Afraid, Rape, [...] [facility] you [facility] or living in a fci (including now)? No 01/17/2025 CAGE ASSESSMENT Answer [...] drink first t traci in the morning (EYE-VACUUM CLEANER REPAIR PERSON) to steady your nerves or to get rid of a hangover? 0 09/10/2023 CAGE Questionnaire Score 0 024 Utilities Answer Date Recorded In the past 12 months has th e [employer], [employer], oil, or water [employer] threatened to shut off services in your [...] Assessment Author No Risk Indicated 01/21/2025 8:00 AM EDT Katalina Valle RN * Question Answer Date of Assessment Author 1. Wish to be (Past 1 Month) No 01/21/2025 8:00 AM EDT Rachna Martinez RN 2. Non-Specific Active Suicidal Thoughts (Past 1 Month) No 01/21/2025 8:00 AM EDT Rachna Martinez RN 6. Suicidal Behavior (Lifetime) No 01/21/2025 8:00 AM EDT Rachna Martinez RN documented as of this encounter Miscellaneous Notes * Anesthesia Postprocedure Evaluation - Cooper Owen DO - 01/20/2025 11:33 AM EDT Patient: Panda Machado Anesthesia Type: general Vitals Value Taken Time BP 131/51 01/20/25 11:33 Temp 36.7 01/20/25 11:33 Pulse 92 01/20/25 11:31 Resp 13 01/20/25 11:31 SpO2 96 % 01/20/25 11:31 Vitals shown include unfiled device data. Anesthesia Post Evaluation Patient location during evaluation: PACU Patient participation: complete - patient participated Level of consciousness: awake Pain management: adequate (pain score 0-3) Airway patency: natural airway Cardiovascular status: acceptable and hemodynamically stable Respiratory status: acceptable and face mask Hydration status: acceptable Nausea/Vomiting: No No notable events documented. Cosigned by Filemon Matute MD at 01/20/2025 11:53 AM EDT Associated attestation - Filemon Matute MD - 01/20/2025 11:53 AM EDT I agree with the findings and care plan documented in the postprocedure evaluation note. * Anesthesia Procedure Notes - Cooper Owen DO - 01/20/2025 10:20 AM EDT Associated Order(s): Peripheral IV Peripheral IV Date/Time: 01/20/2025 10:10 AM Placement Needle size: 18 G Location: hand Site prep: alcohol Technique: anatomical landmarks Attempts: 1 Cosigned by Filemon Matute MD at 01/20/2025 10:25 AM EDT Associated attestation - Filemon Matute MD - 01/20/2025 10:25 AM EDT I was present during all critical and dover portions of the procedure(s) and immediately available [facility] services the entire duration. See resident note for details. * Anesthesia Procedure Notes - Cooper Owen DO - 01/20/2025 10:18 AM EDT Associated Order(s): Intubation Intubation Date/Time: 01/20/2025 9:56 AM Reason: elective Airway not difficult General Information and Staff Patient location during procedure: OR Anesthesiologist: Filemon Matute MD Resident: Cooper Owen DO Performed: Anesthesiologist Patient Condition Indications for airway management: anesthesia Patient position: sniffing Final Airway Details Final airway type: endotracheal airway Successful airway: ETT Cuffed: yes Successful intubation technique: direct laryngoscopy Adjuncts used in placement: intubating stylet Endotracheal tube insertion site: oral Blade: Anna Blade size: #3 ETT size (mm): 7.5 Cormack-Lehane Classification: grade IIa - partial view of glottis Placement verified by: chest auscultation and capnometry Measured from: teeth ETT to teeth (cm): 24 Ventilation between attempts: 2 hand mask Additional Comments Bilateral Breath Sounds, (+) ETCO2, Atraumatic, No change to dentition. Large tongue, cricoid pressure used to obtain view. Cosigned by Filemon Matute MD at 01/20/2025 10:25 AM EDT Associated attestation - Filemon Matute MD - 01/20/2025 10:25 AM EDT I was present during all critical and dover portions of the procedure(s) and [facility]. See resident note for details. * Anesthesia Preprocedure Evaluation - Filemon Matute MD - 01/20/2025 7:12 AM EDT Patient: Panda Machado Procedure Information Date/Time: 01/20/25 1020 Procedure: INCISION AND DRAINAGE, LOWER EXTREMITY (Left: Leg Lower) Location: [facility] / [facility] OR Surgeons: Ye Navarro MD HPI Panda Machado is a 34 y.o. male with PMHx of hiatal hernia, KAMRON, obesity, and recent LLE tibial ORIF presents with Cellulitis of leg, left Date Difficult Airway Blade Size ETT Size C-L Class Final Type Intubation Method 01/18/25 No 3 7.5 grade I - full view of glottis endotracheal airway direct laryngoscopy 01/01/25 No 4 7.5 grade I - full view of glottis endotracheal airway direct laryngoscopy 09/15/23 No 4 8.0 grade I - full view of glottis endotracheal airway direct laryngoscopy 09/10/23 No 3, 3 7.5, 7.5 grade I - full view of glottis, grade I - full view of glottis endotracheal airway, endotracheal airway direct laryngoscopy, direct laryngoscopy NPO STATUS Activity Level/METS Relevant Problems GI (+) Hiatal hernia SOCIAL HX Tobacco Use History[1] Social History Substance and Sexual Activity Alcohol Use Never Social History Substance and Sexual Activity Drug Use Never SURGICAL HX Surgical History[2] ALLERGIES Allergies[3] MEDICATIONS Scheduled Current Scheduled Medications[4] LABS Labs in last 18 hours CBC [...] ?? Bili ?? Alb ?? D.Bili ?? EKG, ECHO, Cath, Imaging, PFTs EKG Encounter Date: 01/15/25 ECG Adult Result Value EKG DIAGNOSIS CLASS Normal Ventricular Rate 92 Atrial Rate 92 [place] Interval 122 QRSD Interval 102 QT Interval 350 QTC Interval 432 P [place] 56 R [place] 44 T Wave [place] 57 Diagnosis Normal sinus rhythm Diagnosis Normal ECG Diagnosis Diagnosis Confirmed by Richard Mccracken ([id number]) on 01/16/2025 8:55:10 PM *Note: Due to a large number of results and/or encounters for the requested time period, some results have not been displayed. A complete set of results can be found in Results Review. ECHO No echocardiogram results found for the past 12 months CXR 01/15: Prominent cardiac silhouette, which may be secondary to technique. Unchanged mediastinal contours. Mild asymmetric elevation of the right hemidiaphragm. No pleural effusion. No airspace consolidation. No pneumothorax. No acute osseous abnormality. Body mass index is 40.67 kg/m??. Vitals: 01/20/25 0424 BP: (!) 143/95 Pulse: 86 Resp: 16 Temp: 36.7 ??C (98.1 ??F) SpO2: 99% ROS Anesthesia: history of [...] Hemoglobin 11.7 today Endocrine/Metabolic: Negative endocrine ROS. Physical Exam Airway Mallampati: II Mouth opening: normal TM distance: >3 FB Neck ROM: full Cardiovascular Rhythm: regular Rate: normal Dental - normal exam Pulmonary Breath sounds clear to auscultation Neurological Oriented: normal to time, normal to place and normal to person and oriented to person, place and time Skin - normal exam Musculoskeletal Extremities Anesthesia Plan ASA 3 Anesthesia technique(s) discussed with the patient/family: general Anesthesia plan agreed upon was: general Anesthetic plan and risks discussed with patient. Use of blood products discussed with patient who consented to blood products. Additional Equipment Requests [1] Social History Tobacco Use Smoking Status Every Day Current packs/day: 1.00 Average packs/day: 1 pack/day for 15.0 years (15.0 ttl pk-yrs) Types: Cigarettes Smokeless Tobacco Never [2] Past Surgical History: Procedure Laterality Date LEG SURGERY Left [3] Allergies Allergen Reactions [place] Hives [4] acetaminophen, 1,000 mg, Oral, q6h ALIYA enoxaparin, 60 mg, Subcutaneous, BID nicotine, 1 patch, Transdermal, Daily piperacillin-tazobactam, 4.5 g, Intravenous, q6h polyethylene glycol, 17 g, Oral, Daily senna-docusate, 1 tablet, Oral, Nightly Insert peripheral IV, , , Once AND Saline lock IV, , , Once AND sodium chloride, 10 mL, Intravenous, q12h AND sodium chloride, 10 mL, Intravenous, PRN vancomycin (Vancocin) intermittent dosing, 1 each, Intravenous, See admin instructions vancomycin, 1,500 mg, Intravenous, Once documented in this encounter Plan of Treatment Upcoming Encounters Date Type Department Care Team (Late st Contact Info) Description 01/27/2025 11:00 AM EDT Clinical Support [facility] [address] [place] [id number] 02/03/2025 8:10 AM EDT Office Visit [facility] [address] [place] [address] Lawrence Hayes MD [address] [place] [address] 02/11/2025 1:00 PM EDT Office Visit [facility] [address] [place] [address] Ary Santiago, RACK PRODUCTION WORKER [address] [facility] [address] [place] [address] 03/03/2025 1:00 PM EDT Office Visit [facility] [address] [place] [address] Ary Santiago, RACK PRODUCTION WORKER [address] [facility] [address] [place] [address] documented as of this encounter Procedures Procedure Name Priority Date/Time Associated Diagnosis Comments ANESTHESIA PERIPHERAL IV PLACEMENT Routine 01/20/2025 10:10 AM EDT PB ANESTHESIA PLACEHOLDER Routine 01/20/2025 9:56 AM EDT WI AN ELECTIVE ENDOTRACHEAL AIRWAY Routine 01/20/2025 9:56 AM EDT documented in this encounter Results * Peripheral IV (01/20/2025 10:10 AM EDT) Narrative Filemon Matute MD - 01/20/2025 10:10 AM EDT Filemon Matute MD 01/20/2025 10:25 AM Peripheral IV Date/Time: 01/20/2025 10:10 AM Placement Needle size: 18 G Location: hand Site prep: alcohol Technique: anatomical landmarks Attempts: 1 us Filemon Matute MD ANESTHESIA ORDERABLES Final Res ult * WI AN ELECTIVE ENDOTRACHEAL AIRWAY, PB ANESTHESIA PLACEHOLDER (01/20/2025 9:56 AM EDT) Narrative Filemon Matute MD - 01/20/2025 9:56 AM EDT Filemon Matute MD 01/20/2025 10:25 AM Intubation Date/Time: 01/20/2025 9:56 AM Reason: elective Airway not difficult General Information and Staff Patient location during procedure: OR Anesthesiologist: Filemon Matute MD Resident: Cooper Owen DO Performed: Anesthesiologist Patient Condition Indications for airway management: anesthesia Patient position: sniffing Final Airway Details Final airway type: endotracheal airway Successful airway: ETT Cuffed: yes Successful intubation technique: direct laryngoscopy Adjuncts used in placement: intubating stylet Endotracheal tube insertion site: oral Blade: Anna Blade size: #3 ETT size (mm): 7.5 Cormack-Lehane Classification: grade IIa - partial view of glottis Placement verified by: chest auscultation and capnometry Measured from: teeth ETT to teeth (cm): 24 Ventilation between attempts: 2 hand mask Additional Comments Bilateral Breath Sounds, (+) ETCO2, Atraumatic, No change to dentition. Large tongue, cricoid pressure used to obtain view. Filemon Matute MD ANESTHESIA ORDERABLES Final Res ult documented in this encounter Visit Diagnoses Not on filedocumented in this encounter Administered Medications Inactive Administered Medications - up to 3 most recent administrations Medication Order MAR Action Action Date Dose Rate Site dexamethasone (Decadron) injection Intravenous, As needed, Starting on Mon01/20/25 at 1021, Until Mon01/20/25 at 1132, Routine, Anesthesia Intraprocedure Given 01/20/2025 10:21 AM EDT 4 mg dexmedetomidine (Precedex) 100 MCG/ML concentrated solution Intravenous, As needed, Starting on Mon01/20/25 at 0955, Until Mon01/20/25 at 1132, Routine, Anesthesia Intraprocedure Given 01/20/2025 11:04 AM EDT 4 mcg Given 01/20/2025 10:56 AM EDT 4 mcg Given 01/20/2025 9:55 AM EDT 8 mcg ePHEDrine Sulfate (Akovaz) injection Intravenous, As needed, Starting on Mon01/20/25 at 1027, Until Mon01/20/25 at 1132, Routine, Anesthesia Intraprocedure Given 01/20/2025 10:27 AM EDT 10 mg fentaNYL (Sublimaze) injection Intravenous, As needed, Starting on Mon01/20/25 at 0955, Until Mon01/20/25 at 1132, Routine, Anesthesia Intraprocedure Given 01/20/2025 9:55 AM EDT 100 mcg lactated Ringer's infusion Intravenous, Continuous PRN, Starting on Mon01/20/25 at 0955, Until Mon01/20/25 at 1132, Routine New Bag 01/20/2025 9:55 AM EDT lidocaine PF (Xylocaine) 2 % injection Intravenous, As needed, Starting on Mon01/20/25 at 0955, Until Mon01/20/25 at 1132, Routine, Anesthesia Intraprocedure Given 01/20/2025 9:55 AM EDT 100 mg ondansetron (Zofran) injection Intravenous, As needed, Starting on Mon01/20/25 at 1037, Until Mon01/20/25 at 1132, Routine, Anesthesia Intraprocedure Given 01/20/2025 10:37 AM EDT 4 mg phenylephrine in NS (Evan-Synephrine) 100 mcg/mL prefilled syringe Intravenous, As needed, Starting on Mon01/20/25 at 1023, Until Mon01/20/25 at 1132, Routine, Anesthesia Intraprocedure Given 01/20/2025 10:29 AM EDT 200 mcg Given 01/20/2025 10:23 AM EDT 200 mcg Given 01/20/2025 10:16 AM EDT 200 mcg propofol (Diprivan) injection Intravenous, As needed, Starting on Mon01/20/25 at 0955, Until Mon01/20/25 at 1132, Routine, Anesthesia Intraprocedure Given 01/20/2025 9:56 AM EDT 50 mg Given 01/20/2025 9:55 AM EDT 200 mg rocuronium (ZeMuron) injection Intravenous, As needed, Starting on Mon01/20/25 at 0955, Until Mon01/20/25 at 1132, Routine, Anesthesia Intraprocedure Given 01/20/2025 9:55 AM EDT 80 mg documented in this encounter Additional Health Concerns Infection Onset Date Last Indicated Resolved Time 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
--- OUTSIDE RECORDS SUMMARY | 2025-01-20 09:52 | XMS_ITS | Encounter Summary ---
Author Organization Healthcare Address [address] [place] [address] Care Team Providers Care Adjunct Spanish Instructor Name Role Phone Renetta Pardo APRN Primary Care Provider [phone] Reason for Visit * Reason Comments Post-op Problem * Auth/Cert (Routine) Specialty Diagnoses / Procedures Referred By Adalid t Referred To Contact Diagnoses Acute postoperative pain Cellulitis of leg, left Cellulitis of left lower extremity Sepsis following procedure, initial encounter (CMS/[facility]) recent LLE surgery @ now with cellulitis Sachin Garza MD [address] [address] Phone: tel: fax: [facility] H Inpatient [address] [place] [address] Phone: tel: Referral ID Status Reason Start Date Expiration Date Visits Re quested Visits Authorized [id number] 1 1 Encounter Details Date Type Department Care Team (Late st Contact Info) Description 01/20/2025 9:52 AM EDT - 01/20/2025 11:57 AM EDT Surgery [facility] A OPERATING ROOM [address] [place] [address] Bob Nava MD [address] [place] [address] INCISION AND DRAINAGE, LOWER EXTREMITY [...] any time in the past 12 m [facility], were you homeless or living in a [...] drink first t traci in the morning (EYE-ARC WELDING MACHINE OPERATOR) to steady your nerves or to get rid of a hangover? 0 09/10/2023 CAGE Questionnaire Score 0 024 Utilities Answer Date Recorded In the past 12 months has th e Niche, gas, oil, or water company threatened to [...] per institution/faci lity policy. 1 each 01/22/2025 enoxaparin (Lovenox) 60 MG/0.6ML solution prefilled syringe [...] from the original note were not included. 28027 Flushing Your PICC Line at Home Your [...] soap and water, use an alcohol-based hand jewel stringer. The gel should have at least 60% [...] PICC. Last Reviewed Date: 2024 00:00:00 ?? 0186-0215 The [employer]. All rights reserved. This information is not intended as a substitute for professional medical care. Always follow your healthcare professional's instructions. * Rosaura RushDILLON - Leigh Rg RN - 01/22/2025 4:21 PM EDT Images from the original note were not included. 00066 Discharge Instructions: Changing the Dressing on Your [...] damage Last Reviewed Date: 2024 00:00:00 ?? 4730-7453 [employer]. All rights reserved. This information is not [...] the video go to this web address: [email or web address] Or, scan this QR code with your smart phone ?? [facility] * Rosaura Eason - Leigh Rg RN - 01/22/2025 4:20 PM EDT Images from the original note were not included. 57767 Understanding Post Sepsis Syndrome (PSS) Sepsis is [...] infections Last Reviewed Date: 2022 00:00:00 ?? [id number] [employer]. All rights reserved. This information is not intended as a substitute for professional medical care. Always follow your healthcare professional's instructions. * Rosaura RushDILLON - Leigh Rg RN - 01/22/2025 4:20 PM EDT Images from the original note were not included. [id number] Buckle (Torus) Fracture of a Leg Your [...] wet, you can dry it with a division chair on the cool setting. ? Put [...] doctor Last Reviewed Date: 2024 00:00:00 ?? 1057-1241 [employer]. All rights reserved. This information is not intended as a substitute for professional medical care. Always follow your healthcare professional's instructions. * Rosaura Eason - Leigh Rg RN - 01/22/2025 4:20 PM EDT Images from the original note were not included. 07901 Discharge Instructions for Cellulitis You have been [...] are in pain. Ask what kind of mbob-can-ovxrvxo medicine you can take for pain. ? [...] Vomiting. Last Reviewed Date: 2024 00:00:00 ?? 9444-1385 [employer]. All rights reserved. This information is not intended as a substitute for professional medical care. Always follow your healthcare professional's instructions. * Discharge Summary - Mauricio Mondragon MD - 01/22/2025 4:16 PM EDT Hospitalization Admit Date/Time: 01/15/2025 9:32 PM Admitting Attending: Sachin Garza Discharge Date: 01/22/25 Discharge Attending Physician: Sachin Garza MD PCP name and Address: Renetta Pardo, WIG STYLIST [address] [place] [address] [address] / [facility] [address] Referring provider name and address: Maldonado Luciano PA [address] [place] [address] Chief Concern, Brief History of Present Illness, [...] Your Medications These medications were sent to [facility] -[place], [place] - [address], [facility] [address] DAPTOmycin injection These medications were sent to [facility] - [place], [place] - [address] [facility] [address] oxyCODONE 5 MG immediate release capsule Discharge [...] Time Provider Department Center 01/27/2025 11:00 AM [facility] 02/03/2025 8:10 AM Lawrence Hayes MD [facility] 02/11/2025 1:00 PM Ary Santiago APRN IDBCCL[facility] [place] 03/03/2025 1:00 PM Ary Santiago APRN [facility] [place] Test Results Pending At Discharge Pending Labs [...] AM EDT * Nursing Note - Camden Viatl RN - 01/22/2025 12:00 PM EDT Orthopedic Transition Nurse Note General: Spoke with: Patient, Family, and Bedside weigher operator and Interventions: Assessed: Dressing Dressing Interventions: [...] please contact the Orthopedic Transition Nurse at [phone] Monday through Monday 8:00 am to 2:30 pm. If you feel your concern is a medical emergency please call 911 immediately * Progress Notes - Anna Elam RN - 01/22/2025 9:28 AM EDT Case Management Discharge Note Ravin Ribeiro 34 y.o. male CSN: [id number] Admission: 01/15/2025 9:32 PM Primary Problem: Cellulitis of leg, left Primary Assistant Operations Manager: Primary Caregiver: Self Assistance Available at Discharge: Current Outpatient/Agency/Support Group: DME Availability of Care Givers (#Hours): 24 hours Family/Assistant Operations Manager(s) Willingness Assessed to care for patient at home: Yes Family/Assistant Operations Manager(s) Readiness Assessed to care for patient at [...] Community Agency(s): Patient's Choice of Community Agency(s): [facility] Patient/Family Anticipated Services at Transition: Patient/Family [...] in place. Pt will follow up at [facility] for weekly PICC care and labs. First appointment is scheduled for 01/27 at 11 AM. Pt's family will be able to provide assistance and transportation. [employer] will complete teaching today and deliver IV ABX to bedside around 3 PM. Pt and S/O is aware and agreeable to discharge POC. [facility] [phone] [id number] Anna Elam RN * Progress Notes - [...] Ayden Canseco MD PGY-1, Orthopaedic Surgery [facility] Orthopaedic Trauma Service Pager: [phone] Orthopaedic Recon/Spine/Foot and Ankle Service Pager: [phone] Cosigned by Lawrence Hayes MD at 01/22/2025 [...] Red Mondragon MD Orthopaedic Surgery PGY-1 [facility] Orthopaedic Trauma Service Pager: [phone] Orthopaedic Recon/Spine/Foot and Ankle Service Pager: [phone] Personal Pager: [phone] Cosigned by Lawrence Hayes MD at 01/22/2025 1:06 PM EDT * Procedures - Norma Miranda RN - 01/21/2025 7:01 PM EDTAssociated Order(s): Insert PICC line Insert PICC line Date/Time: 01/21/2025 7:01 PM Performed by: Norma Miranda RN Authorized by: Sachin Garza MD [place] Protocol: Verbal consent obtained?: Yes Written consent [...] preference Patient position: Supine Catheter Lot #: [id number] Catheter gear room keeper: [employer] PowerPICC Solo Catheter placed: Single lumen Catheter [...] 01/21/2025 3:28 PM EDT Referrals sent to [facility] and for for possible home IV antibiotic infusion. There was no accepting companies in patient's area. CM spoke with patient and he is agreeable to either go to his local hospital [facility] or come to [facility] in [place] for his weekly PICC care/labs if needed. * Nursing Note - Camden Vital RN - 01/21/2025 1:45 PM EDT Orthopedic Transition Nurse Note General: Spoke with: Patient, Family, and Bedside weigher operator and Interventions: Assessed: Dressing Dressing Interventions: [...] please contact the Orthopedic Transition Nurse at [phone] Monday through Monday 8:00 am to 2:30 pm. If you feel your concern is a medical emergency please call 911 immediately * Steff Odell RN - 01/21/2025 11:57 AM EDT Images from the original note were not included. [id number] PICC Line Care PICC stands for peripherally [...] arm Last Reviewed Date: 2024 00:00:00 ?? 3888-0440 [employer]. All rights reserved. This information is not intended as a substitute for professional medical care. Always follow your healthcare professional's instructions. * Steff Odell RN - 01/21/2025 11:56 AM EDT Images from the original note were not included. [id number] * Steff Odell RN - 01/21/2025 11:56 AM EDT Images from the original note were not included. 50185 * Steff Odell RN - 01/21/2025 11:56 [...] your house or a medical facility. The upper caser/dialysis social worker will setthat up based on [...] or during weekends/[place] holidays, call the paging bandage wrapping machine operator at . Ask for the infectious disease fellow ruby on rails developer. Call the clinic if you have any [...] from the original note were not included. 97147 Flushing Your PICC Line at Home Your [...] soap and water, use an alcohol-based hand jewel stringer. The gel should have at least 60% [...] PICC. Last Reviewed Date: 2024 00:00:00 ?? 8750-2045 [employer]. All rights reserved. This information is not intended as a substitute for professional medical care. Always follow your healthcare professional's instructions. * [facility] - Steff Paz RN - 01/21/2025 11:56 AM EDT Images from the original note were not included. [id number] Daptomycin Injection Brand Name(s): Cubicin??, Cubicin RF??; [...] be awakened, immediately call emergency services at 061. What OTHER INFORMATION should I know? Keep [...] of all of the prescription and nonprescription (xfln-vnq-ouusyxm) medicines you are taking, as well as [...] or pharmacist about specific clinical use. The [employer] represents that the information provided hereunder was formulated with a reasonable standard of care, and in conformity with professional standards in the field. The [employer] makes no representations or warranties, express or implied, including, but not limited to, any implied warranty of merchantability and/or fitness for a particular purpose, with respect to such information and specifically disclaims all such warranties. Users are advised that decisions regarding drug therapy are complex medical decisions requiring the independent, informed decision of an appropriate health acute care assistant, and the information is provided for informational purposes only. The entire monograph for a drug should be reviewed for a thorough understanding of the drug's actions, uses and side effects. The [employer] does not endorse or recommend the use of any drug.The information is not a substitute for medical care. AHFS?? Patient Medication Information?. ?? Copyright, 2023. The [employer]??, [address], [address], [place], [place]. All Rights Reserved. Duplication for commercial use must be authorized by [facility]. Selected Revisions: July 28, 2019. AHFS?? Patient Medication Information?. ?? Copyright, 2024 * Rosaura OnIR - Steff Paz RN - 01/21/2025 11:56 AM EDT Images from the original note were not included. 48617 Discharge Instructions: Caring for Your Peripherally Inserted [...] damage. Last Reviewed Date: 2024 00:00:00 ?? 5303-5831 [employer]. All rights reserved. This information is not intended as a substitute for professional medical care. Always follow your healthcare professional's instructions. * Rosaura RushDILLON - Steff Paz RN - 01/21/2025 11:56 AM EDT Images from the original note were not included. 67345 Central Line Infections You need a central [...] water. Or they use an alcohol-based hand jewel stringer containing at least 60% alcohol. ? Using [...] (warm or cold), and use alcohol-based hand jewel stringer with at least 60% alcohol as directed. To clean your hands well,follow the guidelines on this sheet. Visitors should wash their hands well when they arrive and when they leave. ? Make sure healthcare staff and your visitors clean their hands. They should use soap and clean, running water or an alcohol-based hand jewel stringer before and after checking the line. Don?t [...] good choice for cleaning your hands. The jewel stringer should have at least 60% alcohol. Note that some germs can't be killed by alcohol. Your healthcare team can answer any questions you have about when to use a hand jewel stringer, or when it?s better to wash with soap and water. Follow these steps: ? Spread the hand jewel stringer in the palm of one hand. (Check the package for specific guidelines.) ? Rub your hands together briskly. Clean the backs of your hands, the palms, between your fingers, and up your wrists. ? Rub until the jewel stringer is gone and your hands are completely [...] skin Last Reviewed Date: 2023 00:00:00 ?? 5859-2104 The [employer]. All rights reserved. This information is not [...] Single Lumen PICC Patient Specific Outpatient Circumstances: [address] [place] [address] Family Support: Extended Emergency Contact Information Primary Emergency Contact: Hayley Buenrostro Address: [address] [place] [address] Mobile Relation: Significant Other Preferred language: Nicaraguan Tax Manager needed? No Secondary Emergency Contact: Jenny Buenrostro Address: [address] [place] [address] [place] Relation: Mother Contact information: Ravin Ribeiro [phone] (home) Outpatient services (including home infusion, home health, facility referral: See recent [facility] case management/social work note for finalization of services ID follow up appointment: Future Appointments Date Time Provider Department Center 02/03/2025 8:10 AM Lawrence Hayes MD [facility] 02/11/2025 1:00 PM Ary Santiago APRN IDBCCLX [place] 03/03/2025 1:00 PM Ary Santiago APRN [facility]CC[facility] [place] Patient Assessment I spoke with patient at [...] via secure chat or staff messaging in Pageflakes. Patient and family will need to be [...] days prior to presentation. He presented to [facility] wherehe was febrile to 101.3F. Upon [...] PA-C Division of Infectious Diseases Available on [employer] Chat History, assessment, and plan discussed with [...] labs to: ID OPAT Team Fax #: [phone] Appointments: Ary Santiago APRN on 02/11 at 1PM and 03/[address] [facility]: [address] [place] [address] (Select Option 3 for IV Antibiotic / PICC line related issues) For questions regarding OPAT prior to discharge, reach out to the OPAT team via Page[employer]akes Secure Chat (Group: OPAT Referral Team). For all questions regarding OPAT after discharge should be directed to the OPAT Team at (Select Option 3 for IV Antibiotics/PICC Issues) between 8am-5pm. After 5 pm, or during weekends/ holidays, please call the paging bandage wrapping machine operator at to reach the on-call [...] at 01/18/25 1133 [2] Allergies Allergen Reactions [place] Hives * Consults - Delma Ortiz - 01/21/2025 10:00 AM EDT Pastoral Care Note: Patient was appreciative of applied researcher's visit and expressed gratitude to the care team. he said family is on their way to him. Referral From: Development Geologist Initiated Pastoral Care Provided For: Patient Patient Profile: Spiritual Assessment: Support Systems/ Spiritual Resources: Treasure, Sense of Peace, Trust, Gratitude Spiritual Needs: Emotional support, Spiritual ritual Spiritual Issues: Discharge Interventions: Pastoral Care Outcomes: Patient Outcomes: Appreciative of Development Geologist Support, Expresses acceptance, Gratitude Cosigned by Macrina Dumont at 01/21/2025 6:24 PM EDT Associated attestation - Macrina Dumont - 01/21/2025 6:24 PM EDT This is to attest applied researcher risk management internship chart note has been reviewed and [...] Prevent or Manage Infection Flowsheets (Taken 01/20/2025 1411) Infection Management: aseptic technique maintained Fever Reduction/Comfort [...] Agree with above assessment and evaluation from resident/GOLD MINER. * Progress Notes - Anna Elam RN - 01/20/2025 10:48 AM EDT Case Management Adult Progress Note Ravin Ribeiro 34 y.o. male CSN: [id number] Admission: 01/15/2025 9:32 PM Primary Problem: Cellulitis of leg, left Anticipated Discharge Date: TBD Pt to OR today for repeat I&D on left knee. Pt has worsening NORMAN and team wants to repeat AM labs. Final ID recs and OPAT eval are pending. [facility]. Pt's medicaid may be a potential barrier to HH. CM will continue to assist with discharge POC. Anna Elam RN * Op Note - Bob Nava MD - 01/20/2025 10:26 AM EDT Operative Note Date: 01/20/25 Location: [place] OR Name: Ravin Ribeiro, : 1990, Diagnoses: Pre-op Diagnosis Closed fracture of left tibial plateau with routine healing, subsequent encounter Left proximal tibia (knee region) deep abscess Post-op Diagnosis Closed fracture of left tibial plateau with routine healing, subsequent encounter Left proximal tibia (knee region) deep abscess Procedure(s): Incision and drainage of left knee deep abscess Attending Surgeon(s): * Bob Nava - Primary Landscape Nurseryman(s): * Emely Giron MD - Resident - [...] days prior to presentation. He presented to [facility] wherehe was febrile to 101.3F. Upon [...] PA-C Division of Infectious Diseases Available on [facility] Chat History, assessment, and plan discussed with [...] Gustavo Hightower MD [2] Allergies Allergen Reactions [place] Hives * Consults - Ricco Howard RN [...] Ayden Canseco MD PGY-1, Orthopaedic Surgery [facility] Orthopaedic Trauma Service Pager: [phone] Orthopaedic Recon/Spine/Foot and Ankle Service Pager: [phone] Cosigned by Sachin Garza MD at 01/20/2025 [...] Sepsis following procedure, initial encounter ([facility]) 2. Cellulitis of left lower extremity 3. [...] admission Level of Mobility: Ambulatory- community Mobility [place]: Independent gait without device (intermittne use of [...] Mobility Bed Mobility Exam: Scooting/Bridging Level of [place]: Independent Bed Mobility Exam: Supine to Sit Level of [place]: Independent Transfers Transfer Exam: Sit to stand Level of [place]: Stand-by assist Physical/Nonphysical Assist: Verbal Cues Assistive Device: Walker, rolling Transfer Exam: Stand to Sit Level of [place]: Stand-by assist Physical/Nonphysical Assist: Verbal Cues Assistive Device: Walker, rolling Toilet Transfer Level of [place]: Stand-by assist Physical/Nonphysical Assist: Verbal Cues Type of Transfer: Ambulation, To toilet Assistive Device: Walker, rolling, Grab bar Functional Mobility Device: Rolling walker Assistance: Standby assist <Household distance, cuing for safety, pacing activity, RW management, and encouraged L LE WBAT-as permitted per chart (pt reports being used to NWB for pain management PSYCH ARNP) Balance Postural Appearance Posture: Within Functional Limits [...] admission Level of Mobility: Ambulatory- community Mobility [place]: Independent gait without device (intermittne use of [...] Mobility Bed Mobility Exam: Scooting/Bridging Level of [place]: Independent Bed Mobility Exam: Supine to Sit Level of [place]: Independent Transfers Transfer Exam: Sit to stand Level of [place]: Stand-by assist Physical/Nonphysical Assist: Verbal Cues Assistive Device: Walker, rolling Transfer Exam: Stand to Sit Level of [place]: Stand-by assist Physical/Nonphysical Assist: Verbal Cues Assistive [...] Assessments Standardized Assessments: AMPA 6-Clicks Mobility Assessment [facility] 6-Clicks Mobility Assessment Difficulty patient [...] 3-5 steps with a railing?: A little [facility] 6-Clicks Mobility Assessment Total : 23 [...] Cont IV abx per ID - Mild NOMRAN this AM, 1L LR MIVF - Marked [...] Red Mondragon MD Orthopaedic Surgery PGY-1 [facility] Orthopaedic Trauma Service Pager: [phone] Orthopaedic Recon/Spine/Foot and Ankle Service Pager: [phone] Personal Pager: [phone] Cosigned by Ye Navarro MD at 01/21/2025 [...] AM EDT Operative Note Date: 01/18/25 Location: [place] OR Name: Ravin Ribeiro, : 1990, Diagnoses: Pre-op Diagnosis Cellulitis of left lower extremity Post-op Diagnosis Cellulitis of left lower extremity Procedure(s): Irrigation and debridement of left medial tibial plateau deep abscess Attending Surgeon(s): * Ye Navarro - Primary Landscape Nurseryman(s): * Harvey Swift MD - Resident - 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 weigher operator and Interventions: Assessed: Wound 01/01/25 Surgical [...] please contact the Orthopedic Transition Nurse at [phone] Monday through Monday 8:00 am to 2:30 [...] ] Family [ ] Friend [ ] Tax Manager [X] Medical records HISTORY OF PRESENT [...] medial pretibial incision so he presented to [facility] for evaluation. He was febrile to101.3F [...] on day of presentation. He lives in [place] with his , CONSTANZA, and 2 young [...] days prior to presentation. He presented to [facility] wherehe was febrile to 101.3F. Upon [...] PA-C Division of Infectious Diseases Available on [employer]akes Chat History, assessment, and plan discussed with ID attending, Dr. Azucena Collado The following complex inpatient infectious disease services were performed today: Complex antimicrobial therapy counseling and treatment [1] History reviewed. No pertinent past medical history. [2] Past Surgical History: Procedure Laterality Date LEG SURGERY Left [3] Allergies Allergen Reactions [place] Hives [4] Current Facility-Administered Medications Medication Dose [...] Note Ravin Ribeiro 34 y.o. male CSN: [id number] Admission: 01/15/2025 9:32 PM Primary Problem: Cellulitis of leg, left Inspector Floor reviewed chart and spoke with patient to complete this Initial Case Management Assessment. PCP: Renetta Pardo APRN Emergency Contact: Extended Emergency Contact Information Primary Emergency Contact: Hayley Buenrostro Address: [address] [place] [address] Mobile Relation: Significant Other Preferred language: Nicaraguan Tax Manager needed? No Secondary Emergency Contact: Jenny Buenrostro Address: [address] [place] [address] Mobile Relation: Mother Insurance: Primary Visit Coverage Payer Plan Sponsor Code Group Number Group Name [employer] [place] [employer] Primary Visit Coverage Subscriber Subscriber ID Subscriber Name Subscriber N Subscriber Address [id number] RAVIN RIBEIRO [id number] [place] [address] Patient information: Primary Caregiver: Self Support System: Immediate family Daily Living Activities: Functional Status: Independent Living Arrangements: Spouse/Significant other, Family Type of Residence: Private residence, Single Level [address] [place] [address] Current DME: Equipment Currently Used at Home: [...] Outpatient Dialysis Services: Living Will/Advance Directive/Power of Convertible Power Shovel Operator /Guardian: Have you reviewed your Advance [...] Pt states he lives at home in [place] with his , MIL, and two small 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 weigher operator and Interventions: Assessed: Wound 01/01/25 Surgical [...] please contact the Orthopedic Transition Nurse at [phone] Monday through Monday 8:00 am to 2:30 [...] (excluding known injuries). ASSESSMENT AND PLAN Ravin Ribeior is a 34 y.o. male patient with L knee cellulitis s/p ORIF tibial plateau fx (01/01) -Plan for admission for IVAbx -No plan for OR currently. Will continue to perform serial exams. Mitch Giron MD PGY-3, Orthopaedic Surgery [facility] Orthopaedic Trauma Service Pager: [phone] Orthopaedic Recon/Spine/Foot and Ankle Service Pager: [phone] Cosigned by Sachin Garza MD at 01/18/2025 [...] your wound. Based upon recent changes to [place] law related to prescribing opioid pain medications, [...] please contact the Orthopedic Transition Nurse at [phone] Monday through Monday 8:00 am to 2:30 [...] Tabitha Howard MD PGY-2, Orthopaedic Surgery [facility] Cosigned by Sachin Garza MD [...] W. Shawn Howard MD PGY-2, Orthopaedic Surgery [facility] Orthopaedic Trauma Service Pager: [phone] Orthopaedic Recon/Spine/Foot and Ankle Service Pager: [phone] [1] History reviewed. No pertinent past medical [...] 25 tablet 0 [4] Allergies Allergen Reactions [place] [facility] Cosigned by Sachin Garza MD at [...] Sepsis following procedure, initial encounter ([facility]) Cellulitis of left lower extremity Acute postoperative [...] Sepsis following procedure, initial encounter ([facility]). Diagnoses of Cellulitis of left lower extremity [...] Drug use: Never [5] Allergies Allergen Reactions [place] Hives Gus Vigil APRN 01/16/25 0657 Cosigned [...] Sepsis following procedure, initial encounter ([facility]) Cellulitis of left lower extremity Acute postoperative pain Ultimately, this patient Was admitted (Admission) The primary encounter diagnosis was Sepsis following procedure, initial encounter ([facility]). Diagnoses of Cellulitis of left lower extremity [...] Description 01/27/2025 11:00 AM EDT Clinical Support [facility] Orthopaedic Surgery & Sports Medicine [address] [place] [address] 02/03/2025 8:10 AM EDT Office Visit [facility] Orthopaedic Surgery & Sports Medicine [address] [place] [address] Lawrence Hayes MD [address] [facility] [address] [place] [id number] 02/11/2025 1:00 PM EDT Office Visit [facility] [address] [place] [address] Ary Santiago, WIG STYLIST [address] [facility] [address] [place] [address] 03/03/2025 1:00 PM EDT Office Visit [facility] [address] [place] [address] Ary Santiago, WIG STYLIST [address] [facility] [address] [place] [address] Pending Results Name Type Priority [...] (ABNORMAL) C-reactive protein (01/22/2025 5:04 AM EDT) [facility] CRP, Plasma 44.4(H) <=8.0 mg/L 01/22/2025 9:25 AM EDT [facility] Blood Venous blood specimen / Unknown Venipuncture / Unknown 01/22/2025 5:04 AM EDT 01/22/2025 5:31 AM EDT Narrative [facility] - 01/22/2025 9:25 AM EDT This CRP test is appropriate for assessment of infection, systemic inflammation and/or tissue injury. To assess cardiovascular disease risk order high sensitivity CRP (CRPH). us Michelle ZULUAGA LAB BLOOD ORDERABLES Final Res ult Performing Organization Address City/[facility]/ZIP Co de Phone Number [facility] [address] [place] [address] * Lavender Top (01/22/2025 5:04 AM EDT) Extra Hold for add-ons 01/22/2025 8:02 AM EDT [facility] Comment:Auto resulted. Blood Venous blood specimen / Unknown 01/22/2025 5:04 AM EDT 01/22/2025 5:30 AM EDT us Sachin Garza MD LAB BLOOD ORDERABLES Final R esult Performing Organization Address [facility]/ZIP Co de Phone Number [facility] [address] [place] [address] * (ABNORMAL) Basic metabolic panel (01/22/2025 5:04 AM EDT) Glucose, Plasma 91 74 - 99 mg/dL 01/22/2025 6:01 AM EDT [facility] BUN, Plasma 33(H) 7 - 21 mg/dL 01/22/2025 6:01 AM EDT [facility] Creatinine, Plasma 1.47(H) 0.70 - 1.20 mg/dL 01/22/2025 6:01 AM EDT [facility] BUN/Creatinine Ratio 22 01/22/2025 6:01 AM EDT [facility] Sodium, Plasma 137 136 - 145 mmol/L 01/22/2025 6:01 AM EDT [facility] Potassium, Plasma 5.3(H) 3.6 - 4.9 mmol/L 01/22/2025 6:01 AM EDT [facility] Chloride, Plasma 100 97 - 107 mmol/L 01/22/2025 6:01 AM EDT [facility] CO2, Plasma 28 22 - 29 mmol/L 01/22/2025 6:01 AM EDT [facility] Anion Gap 9 6 - 16 mmol/L 01/22/2025 6:01 AM EDT [facility] Total Calcium, Plasma 9.6 8.9 - 10.2 mg/dL 01/22/2025 6:01 AM EDT [facility] eGFRcr 63.4 mL/min/1.7 3m*2 01/22/2025 6:01 AM EDT [facility] Comment:Reported eGFRcr in m L/min/1.73m2 is based the CKD-EPI 2020 equation that does not use a race coefficient. Blood Venous blood specimen / Unknown Venipuncture / Unknown 01/22/2025 5:04 AM EDT 01/22/2025 5:31 AM EDT us Sachin Garza MD LAB BLOOD ORDERABLES Final R esult [facility] [address] [place] [address] * (ABNORMAL) CBC (01/21/2025 7:29 PM EDT) WBC Count 10.10 3.70 - 10.30 10*3/uL LAB HEMATOLOGY METHOD 01/21/2025 7:42 PM EDT [facility] RBC Count 3.82(L) 4.60 - 6.10 10*6/uL LAB HEMATOLOGY METHOD 01/21/2025 7:42 PM EDT [facility] HGB 11.5(L) 13.7 - 17.5 g/dL LAB HEMATOLOGY METHOD 01/21/2025 7:42 PM EDT [facility] HCT 35.2(L) 40.0 - 51.0 % LAB HEMATOLOGY METHOD 01/21/2025 7:42 PM EDT [facility] Platelet Count 446(H) 155 - 369 10*3/uL LAB HEMATOLOGY METHOD 01/21/2025 7:42 PM EDT [facility] MCV 92 79 - 98 fL LAB HEMATOLOGY METHOD 01/21/2025 7:42 PM EDT [facility] MCH 30.1 26.0 - 32.0 pg LAB HEMATOLOGY METHOD 01/21/2025 7:42 PM EDT [facility] MCHC 32.7 30.7 - 35.5 g/dL LAB HEMATOLOGY METHOD 01/21/2025 7:42 PM EDT [facility] RDW 13.1 11.5 - 14.5 % LAB HEMATOLOGY METHOD 01/21/2025 7:42 PM EDT [facility] MPV 9.1 8.8 - 12.5 fL LAB HEMATOLOGY METHOD 01/21/2025 7:42 PM EDT [facility] nRBC 0.0 <=0.0 per 100 WBCs LAB HEMATOLOGY METHOD 01/21/2025 7:42 PM EDT [facility] Blood Venous blood specimen / Unknown Venipuncture / Unknown 01/21/2025 7:29 PM EDT 01/21/2025 7:35 PM EDT us Sachin Garza MD LAB BLOOD ORDERABLES Final R esult [facility] [address] [place] [address] * (ABNORMAL) Basic metabolic panel (01/21/2025 7:29 PM EDT) Glucose, Plasma 122(H) 74 - 99 mg/dL 01/21/2025 8:03 PM EDT [facility] BUN, Plasma 31(H) 7 - 21 mg/dL 01/21/2025 8:03 PM EDT [facility] Creatinine, Plasma 1.64(H) 0.70 - 1.20 mg/dL 01/21/2025 8:03 PM EDT [facility] BUN/Creatinine Ratio 19 01/21/2025 8:03 PM EDT [facility] Sodium, Plasma 139 136 - 145 mmol/L 01/21/2025 8:03 PM EDT [facility] Potassium, Plasma 4.6 3.6 - 4.9 mmol/L 01/21/2025 8:03 PM EDT [facility] Chloride, Plasma 101 97 - 107 mmol/L 01/21/2025 8:03 PM EDT [facility] CO2, Plasma 26 22 - 29 mmol/L 01/21/2025 8:03 PM EDT [facility] Anion Gap 12 6 - 16 mmol/L 01/21/2025 8:03 PM EDT [facility] Total Calcium, Plasma 9.1 8.9 - 10.2 mg/dL 01/21/2025 8:03 PM EDT [facility] eGFRcr 55.6 mL/min/1.7 3m*2 01/21/2025 8:03 PM EDT [facility] Comment:Reported eGFRcr in m L/min/1.73m2 is based the CKD-EPI 2020 equation that does not use a race coefficient. Blood Venous blood specimen / Unknown Venipuncture / Unknown 01/21/2025 7:29 PM EDT 01/21/2025 7:35 PM EDT us Sachin Garza MD LAB BLOOD ORDERABLES Final R esult [facility] [address] [place] [address] * PICC SINGLE LUMEN ([employer]) (01/21/2025 7:01 PM EDT) Narrative Norma Miranda RN - 01/21/2025 7:01 PM EDT Norma Miranda RN 01/21/2025 7:19 PM Insert PICC line Date/Time: 01/21/2025 7:01 PM Performed by: Norma Miranda RN Authorized by: Sachin Garza MD [place] Protocol: Verbal consent obtained?: Yes Written consent [...] preference Patient position: Supine Catheter Lot #: [id number] Catheter gear room keeper: [employer] PowerPICC Solo Catheter placed: Single lumen Catheter size: 4 Fr Catheter trimmed length: 52 Catheter threaded length: 52 Vein placed in: SVC Catheter cm indwellin Catheter cm outside: 52 Placement confirmed by: [employer] 3CG technology Pre-procedure: Landmarks identified Ultrasound guidance: [...] at day 4 2024 7:15 AM EDT [facility] Gram Stain Result No polymorphonuclear leukocytes seen 01/25/2025 7:15 AM EDT [facility] Gram Stain Result No organisms seen 01/25/2025 7:15 AM EDT [facility] Swab Structure of left knee region / Unknown 01/20/2025 10:42 AM EDT 01/20/2025 11:25 AM EDT Comment:Pre-op diagnosis: Closed fracture of left tibial plateau with routine healing, subsequent encounter [E54.411U] us Bob Nava MD LAB MICROBIOLOGY - GENERAL O RDERABLES Final Result [facility] [address] [place] [address] * Tissue Culture and Gram Stain (01/20/2025 10:30 AM EDT) Culture No growth at day 4 2024 7:15 AM EDT [facility] Gram Stain Result No polymorphonuclear leukocytes seen 01/25/2025 7:15 AM EDT [facility] Gram Stain Result No organisms seen 01/25/2025 7:15 AM EDT [facility] Tissue Structure of left knee region / Unknown 01/20/2025 10:30 AM EDT 01/20/2025 11:23 AM EDT Comment:Pre-op diagnosis: Closed fracture of left tibial plateau with routine healing, subsequent encounter [S82.142D] us Bob Nava MD LAB MICROBIOLOGY - GENERAL O RDERABLES Final Result Performing Organization Address City/[facility]/ZIP Co de Phone Number [facility] [address] [place] [address] * Tissue Culture and Gram Stain (01/20/2025 10:27 AM EDT) Culture No growth at day 4 2024 7:15 AM EDT [facility] Gram Stain Result No organisms seen 01/25/2025 7:15 AM EDT [facility] Gram Stain Result No polymorphonuclear leukocytes seen 01/25/2025 7:15 AM EDT [facility] Tissue Structure of left knee region / Unknown 01/20/2025 10:27 AM EDT 01/20/2025 11:24 AM EDT Comment:Pre-op diagnosis: Closed fracture of left tibial plateau with routine healing, subsequent encounter [S82.142D] us Bob Nava MD LAB MICROBIOLOGY - GENERAL O RDERABLES Final Result [facility] [address] [place] [address] * (ABNORMAL) Creatine Kinase (CK), Total (01/20/2025 3:40 AM EDT) [facility] Creatine Kinase, Plasma 18(L) 49 - 320 U/L 01/21/2025 12:17 PM EDT [facility] Blood Venous blood specimen / Unknown Venipuncture / Unknown 01/20/2025 3:40 AM EDT 01/20/2025 3:57 AM EDT Sachin Garza MD LAB BLOOD ORDERABLES Final R esult [facility] [address] [place] [address] * Vancomycin, random (01/20/2025 3:40 AM EDT) [facility] Vancomycin, Random, Plasma 20.1 ug/mL 01/20/2025 4:51 AM EDT [facility] Blood Venous blood specimen / Unknown Venipuncture / Unknown 01/20/2025 3:40 AM EDT 01/20/2025 3:57 AM EDT Sachin Garza MD LAB BLOOD ORDERABLES Final R esult [facility] [address] [place] [address] * Protime-INR (01/20/2025 3:40 AM EDT) [facility] Prothrombin Time 13.5 12.0 - 14.3 sec LAB COAGULATION METHOD 01/20/2025 4:17 AM EDT [facility] INR 1.0 0.9 - 1.1 LAB COAGULATION METHOD 01/20/2025 4:17 AM EDT [facility] Blood Venous blood specimen / Unknown Venipuncture / Unknown 01/20/2025 3:40 AM EDT 01/20/2025 3:56 AM EDT Narrative [facility] - 01/20/2025 4:17 AM [...] MD LAB BLOOD ORDERABLES Final R esult [facility] [address] [place] [address] * (ABNORMAL) Basic metabolic panel (01/20/2025 3:40 AM EDT) [facility] Glucose, Plasma 87 74 - 99 mg/dL 01/20/2025 4:51 AM EDT [facility] BUN, Plasma 30(H) 7 - 21 mg/dL 01/20/2025 4:51 AM EDT [facility] Creatinine, Plasma 1.59(H) 0.70 - 1.20 mg/dL 01/20/2025 4:51 AM EDT [facility] BUN/Creatinine Ratio 19 01/20/2025 4:51 AM EDT [facility] Sodium, Plasma 142 136 - 145 mmol/L 01/20/2025 4:51 AM EDT [facility] Potassium, Plasma 4.7 3.6 - 4.9 mmol/L 01/20/2025 4:51 AM EDT [facility] Chloride, Plasma 104 97 - 107 mmol/L 01/20/2025 4:51 AM EDT [facility] CO2, Plasma 26 22 - 29 mmol/L 01/20/2025 4:51 AM EDT [facility] Anion Gap 12 6 - 16 mmol/L 01/20/2025 4:51 AM EDT [facility] Total Calcium, Plasma 8.9 8.9 - 10.2 mg/dL 01/20/2025 4:51 AM EDT [facility] eGFRcr 57.7 mL/min/1.7 3m*2 01/20/2025 4:51 AM EDT [facility] Comment:Reported eGFRcr in m L/min/1.73m2 is based the CKD-EPI 2020 equation that does not use a race coefficient. Blood Venous blood specimen / Unknown Venipuncture / Unknown 01/20/2025 3:40 AM EDT 01/20/2025 3:57 AM EDT us Sachin Garza MD LAB BLOOD ORDERABLES Final R esult [facility] [address] [place] [address] * (ABNORMAL) CBC W/O Differential (01/20/2025 3:40 AM EDT) WBC Count 8.11 3.70 - 10.30 10*3/uL LAB HEMATOLOGY METHOD 01/20/2025 4:04 AM EDT [facility] RBC Count 3.64(L) 4.60 - 6.10 10*6/uL LAB HEMATOLOGY METHOD 01/20/2025 4:04 AM EDT [facility] HGB 10.7(L) 13.7 - 17.5 g/dL LAB HEMATOLOGY METHOD 01/20/2025 4:04 AM EDT [facility] HCT 34.5(L) 40.0 - 51.0 % LAB HEMATOLOGY METHOD 01/20/2025 4:04 AM EDT [facility] Platelet Count 399(H) 155 - 369 10*3/uL LAB HEMATOLOGY METHOD 01/20/2025 4:04 AM EDT [facility] MCV 95 79 - 98 fL LAB HEMATOLOGY METHOD 01/20/2025 4:04 AM EDT [facility] MCH 29.4 26.0 - 32.0 pg LAB HEMATOLOGY METHOD 01/20/2025 4:04 AM EDT [facility] MCHC 31.0 30.7 - 35.5 g/dL LAB HEMATOLOGY METHOD 01/20/2025 4:04 AM EDT [facility] RDW 13.1 11.5 - 14.5 % LAB HEMATOLOGY METHOD 01/20/2025 4:04 AM EDT [facility] MPV 9.5 8.8 - 12.5 fL LAB HEMATOLOGY METHOD 01/20/2025 4:04 AM EDT [facility] nRBC 0.0 <=0.0 per 100 WBCs LAB HEMATOLOGY METHOD 01/20/2025 4:04 AM EDT [facility] Blood Venous blood specimen / Unknown Venipuncture / Unknown 01/20/2025 3:40 AM EDT 01/20/2025 3:56 AM EDT Sachin Garza MD LAB BLOOD ORDERABLES Final R esult Performing Organization Address City/[facility]/ZIP Co de Phone Number [facility] [address] [place] [address] * Vancomycin, random (01/19/2025 11:48 AM EDT) Vancomycin, Random, Plasma 22.9 ug/mL 01/19/2025 1:05 PM EDT [facility] Blood Venous blood specimen / Unknown Venipuncture / Unknown 01/19/2025 11:48 AM EDT 01/19/2025 11:50 AM EDT Sachin Garza MD LAB BLOOD ORDERABLES Final R esult [facility] [address] [place] [address] * (ABNORMAL) Basic Metabolic Panel, Plasma (01/18/2025 11:54 PM EDT) Glucose, Plasma 134(H) 74 - 99 mg/dL 01/19/2025 12:45 AM EDT [facility] BUN, Plasma 24(H) 7 - 21 mg/dL 01/19/2025 12:45 AM EDT [facility] Creatinine, Plasma 1.34(H) 0.70 - 1.20 mg/dL 01/19/2025 12:45 AM EDT [facility] BUN/Creatinine Ratio 18 01/19/2025 12:45 AM EDT [facility] Sodium, Plasma 137 136 - 145 mmol/L 01/19/2025 12:45 AM EDT [facility] Potassium, Plasma 4.7 3.6 - 4.9 mmol/L 01/19/2025 12:45 AM EDT [facility] Chloride, Plasma 100 97 - 107 mmol/L 01/19/2025 12:45 AM EDT [facility] CO2, Plasma 24 22 - 29 mmol/L 01/19/2025 12:45 AM EDT [facility] Anion Gap 13 6 - 16 mmol/L 01/19/2025 12:45 AM EDT [facility] Total Calcium, Plasma 9.3 8.9 - 10.2 mg/dL 01/19/2025 12:45 AM EDT [facility] eGFRcr 70.8 mL/min/1.7 3m*2 01/19/2025 12:45 AM EDT [facility] Comment:Reported eGFRcr in m L/min/1.73m2 is based the CKD-EPI 2020 equation that does not use a race coefficient. Blood Venous blood specimen / Unknown Venipuncture / Unknown 01/18/2025 11:54 PM EDT 01/19/2025 12:16 AM EDT Sachin Garza MD LAB BLOOD ORDERABLES Final R esult [facility] [address] [place] [address] * (ABNORMAL) CBC W/O Differential (01/18/2025 11:54 PM EDT) WBC Count 11.85(H) 3.70 - 10.30 10*3/uL LAB HEMATOLOGY METHOD 01/19/2025 12:20 AM EDT [facility] RBC Count 3.76(L) 4.60 - 6.10 10*6/uL LAB HEMATOLOGY METHOD 01/19/2025 12:20 AM EDT [facility] HGB 11.3(L) 13.7 - 17.5 g/dL LAB HEMATOLOGY METHOD 01/19/2025 12:20 AM EDT [facility] HCT 34.2(L) 40.0 - 51.0 % LAB HEMATOLOGY METHOD 01/19/2025 12:20 AM EDT [facility] Platelet Count 394(H) 155 - 369 10*3/uL LAB HEMATOLOGY METHOD 01/19/2025 12:20 AM EDT [facility] MCV 91 79 - 98 fL LAB HEMATOLOGY METHOD 01/19/2025 12:20 AM EDT [facility] MCH 30.1 26.0 - 32.0 pg LAB HEMATOLOGY METHOD 01/19/2025 12:20 AM EDT [facility] MCHC 33.0 30.7 - 35.5 g/dL LAB HEMATOLOGY METHOD 01/19/2025 12:20 AM EDT [facility] RDW 12.9 11.5 - 14.5 % LAB HEMATOLOGY METHOD 01/19/2025 12:20 AM EDT [facility] MPV 9.5 8.8 - 12.5 fL LAB HEMATOLOGY METHOD 01/19/2025 12:20 AM EDT [facility] nRBC 0.0 <=0.0 per 100 WBCs LAB HEMATOLOGY METHOD 01/19/2025 12:20 AM EDT [facility] Blood Venous blood specimen / Unknown Venipuncture / Unknown 01/18/2025 11:54 PM EDT 01/19/2025 12:13 AM EDT us Sachin Garza MD LAB BLOOD ORDERABLES Final R esult [facility] [address] [place] [address] * Anaerobic Culture (01/18/2025 3:28 PM EDT) Culture No anaerobes isolated 01/23/2025 7:50 AM EDT [facility] Joint Fluid Topography unknown / Unknown Non-blood Collection / Unknown 01/18/2025 3:28 PM EDT 01/18/2025 3:28 PM EDT us Sachin Garza MD LAB MICROBIOLOGY - GENERAL O RDERABLES Final Result [facility] [address] [place] [address] * (ABNORMAL) Body Fluid Culture and Gram Stain (01/18/2025 3:28 PM EDT) Culture Heavy Growth 01/20/2025 8:34 AM EDT [facility] Culture Methicillin-Resista nt Staphylococcus aureus(AA) 01/20/2025 8:34 AM EDT [facility] Comment: For susceptibility results refer to: - [facility]-[id number] The organism value for this result has been updated. These results have been appended to the previously preliminary verified report. Edited result: Previously reported as Staphylococcus aureus on 01/19/2025 at 0933 EDT. Staphylococcus aureus has been updated to reportable. Gram Stain Result Numerous Polymorphonuclear leukocytes 01/20/2025 8:34 AM EDT [facility] Gram Stain Result No organisms seen 01/20/2025 8:34 AM EDT [facility] Joint Fluid Topography unknown / Unknown Non-blood Collection / Unknown 01/18/2025 3:28 PM EDT 01/18/2025 3:28 PM EDT us Sachin Garza MD LAB MICROBIOLOGY - GENERAL O RDERABLES Final Result [facility] [address] [place] [address] * Body fluid, cytospin, pathologist interpretation (01/18/2025 3:01 PM EDT) Specimen Type Joint Fluid LAB HEMATOLOGY METHOD 01/20/2025 4:29 PM EDT [facility] Specimen Source, Body Fluid Knee, Left LAB HEMATOLOGY METHOD 01/20/2025 4:29 PM EDT [facility] Clinical Diagnosis, Body Fluid Left lower extremity cellulitis LAB HEMATOLOGY METHOD 01/20/2025 4:29 PM EDT [facility] Interpretation , Body Fluid Bloody specimen Acute and chronic inflammatory cells Correlation with microbiology studies recommended A resident was involved in the service. I attest I examined the relevant preparations for the specimens and confirmed the diagnosis or interpretation. 01/20/2025 4:29 PM EDT [facility] Pathologist Signature, Body Fluid 01/20/2025 4:29 PM EDT [facility] Comment:Reviewed by: Stephanie conti MD LAB CP ASR DISCLAIMER Yes 01/20/2025 4:29 PM EDT [facility] Joint Fluid Structure of left knee region / Unknown 01/18/2025 3:01 PM EDT 01/18/2025 3:28 PM EDT us Sachin Garza MD LAB BODY FLUIDS AND STOOLS O RDERABLES Final Result Performing Organization Address [facility]/ZIP Co de Phone Number [facility] [address] [place] [address] * Joint Fluid Crystals (01/18/2025 3:01 PM EDT) Crystals, Joint Fluid No Crystals Seen No Crystals Present 01/18/2025 5:28 PM EDT [facility] Joint Fluid Structure of left knee region / Unknown 01/18/2025 3:01 PM EDT 01/18/2025 3:28 PM EDT us Sachin Garza MD LAB BODY FLUIDS AND STOOLS O RDERABLES Final Result Performing Organization Address [facility] Co de Phone Number [facility] [address] [place] [address] * (ABNORMAL) Body Fluid Cell Count w/ Diff (01/18/2025 3:01 PM EDT) Color, Body fluid Red LAB HEMATOLOGY METHOD 01/18/2025 11:05 PM EDT [facility] Appearance, Body fluid Cloudy(A) LAB HEMATOLOGY METHOD 01/18/2025 11:05 PM EDT [facility] Volume, Body fluid 3.5 cc LAB HEMATOLOGY METHOD 01/18/2025 11:05 PM EDT [facility] Fluid Container Specimen received in EDTA tube LAB HEMATOLOGY METHOD 01/18/2025 11:05 PM EDT [facility] Red Blood Cell Count, Body fluid 299,000 uL LAB HEMATOLOGY METHOD 01/18/2025 11:05 PM EDT [facility] Total Nucleated Cell Count, Body fluid 873 uL LAB HEMATOLOGY METHOD 01/18/2025 11:05 PM EDT [facility] Neutrophils %, Body fluid 17 % LAB HEMATOLOGY METHOD 01/18/2025 11:05 PM EDT [facility] Lymphocytes %, Body fluid 55 % LAB HEMATOLOGY METHOD 01/18/2025 11:05 PM EDT [facility] Monocytes/Macro phages %, Body fluid 27 % LAB HEMATOLOGY METHOD 01/18/2025 11:05 PM EDT [facility] Eosinophils %, Body fluid 1 % LAB HEMATOLOGY METHOD 01/18/2025 11:05 PM EDT [facility] Lining/[place] ial Cells %, Body fluid 0 % LAB HEMATOLOGY METHOD 01/18/2025 11:05 PM EDT [facility] Neutrophils Absolute (PMN), Body fluid 148 uL LAB HEMATOLOGY METHOD 01/18/2025 11:05 PM EDT [facility] Lymphocytes Absolute, Body fluid 480 uL LAB HEMATOLOGY METHOD 01/18/2025 11:05 PM EDT [facility] Monocytes/Macro phages Absolute, Body fluid 236 uL LAB HEMATOLOGY METHOD 01/18/2025 11:05 PM EDT [facility] Eosinophils Absolute, Body fluid 9 uL LAB HEMATOLOGY METHOD 01/18/2025 11:05 PM EDT [facility] Basophils Absolute, Body fluid 0 uL LAB HEMATOLOGY METHOD 01/18/2025 11:05 PM EDT [facility] Lining/Mesothel ial Cells Absolute, Body fluid 0 uL LAB HEMATOLOGY METHOD 01/18/2025 11:05 PM EDT [facility] Comment, Body fluid None LAB HEMATOLOGY METHOD 01/18/2025 11:05 PM EDT [facility] Comment:This is an appended report. These results have been appended to a previously preliminary verified report. Basophils %, Body fluid 0 % LAB HEMATOLOGY METHOD 01/18/2025 11:05 PM EDT [facility] Joint Fluid Structure of left knee region / Unknown 01/18/2025 3:01 PM EDT 01/18/2025 3:28 PM EDT us Sachin Garza MD LAB BODY FLUIDS AND STOOLS ORDERABLES NO SPECIMEN TYPE/SOURCE Final Result [facility] [address] [place] [address] * Body Fluid Culture and Gram Stain (01/18/2025 12:17 PM EDT) Culture No growth at day 4 2024 11:06 AM EDT [facility] Gram Stain Result No polymorphonuclear leukocytes seen 01/21/2025 11:06 AM EDT [facility] Gram Stain Result No organisms seen 01/21/2025 11:06 AM EDT [facility] Joint Fluid Synovial fluid specimen / Unknown Non-blood Collection / Unknown 01/18/2025 12:17 PM EDT 01/18/2025 3:24 PM EDT Comment:Pre-op diagnosis: Cellulitis of left lower extremity [L03.116] [facility] LAB MICROBIOLOGY - GENERAL ORDERABLES Final Result [facility] [address] [place] [address] * Joint Infection Panel by PCR (01/18/2025 12:17 PM EDT) Anaerococcus prevotii/vaginalis PCR Result Not Detected Not Detected 01/18/2025 5:28 PM EDT [facility] Clostridium perfringens PCR Result Not Detected Not Detected 01/18/2025 5:28 PM EDT [facility] Cutibacterium avidum/granulosum PCR Result Not Detected Not Detected 01/18/2025 5:28 PM EDT [facility] Enterococcus faecalis PCR Result Not Detected Not Detected 01/18/2025 5:28 PM EDT [facility] Enterococcus faecium PCR Result Not Detected Not Detected 01/18/2025 5:28 PM EDT [facility] Finegoldia magna PCR Result Not Detected Not Detected 01/18/2025 5:28 PM EDT [facility] Parvimonas micra PCR Result Not Detected Not Detected 01/18/2025 5:28 PM EDT [facility] Peptoniphilus PCR Result Not Detected Not Detected 01/18/2025 5:28 PM EDT [facility] Peptostreptococcus anaerobius PCR Result Not Detected Not Detected 01/18/2025 5:28 PM EDT [facility] Staphylococcus aureus PCR Result Not Detected Not Detected 01/18/2025 5:28 PM EDT [facility] Staphylococcus lugdunensis PCR Result Not Detected Not Detected 01/18/2025 5:28 PM EDT [facility] Streptococcus spp PCR Result Not Detected Not Detected 01/18/2025 5:28 PM EDT [facility] Streptococcus agalactiae PCR Result Not Detected Not Detected 01/18/2025 5:28 PM EDT [facility] Streptococcus pneumoniae PCR Result Not Detected Not Detected 01/18/2025 5:28 PM EDT [facility] Streptococcus pyogenes PCR Result Not Detected Not Detected 01/18/2025 5:28 PM EDT [facility] Bacteroides fragilis PCR Result Not Detected Not Detected 01/18/2025 5:28 PM EDT [facility] Citrobacter PCR Result Not Detected Not Detected 01/18/2025 5:28 PM EDT [facility] Enterobacter cloacae complex PCR Result Not Detected Not Detected 01/18/2025 5:28 PM EDT [facility] Escherichia coli PCR Result Not Detected Not Detected 01/18/2025 5:28 PM EDT [facility] Haemophilus influenzae PCR Result Not Detected Not Detected 01/18/2025 5:28 PM EDT [facility] Kingella kingae PCR Result Not Detected Not Detected 01/18/2025 5:28 PM EDT [facility] Klebsiella aerogenes PCR Result Not Detected Not Detected 01/18/2025 5:28 PM EDT [facility] Klebsiella pneumoniae group PCR Result Not Detected Not Detected 01/18/2025 5:28 PM EDT [facility] Morganella morganii PCR Result Not Detected Not Detected 01/18/2025 5:28 PM EDT [facility] Neisseria gonorrhoeae PCR Result Not Detected Not Detected 01/18/2025 5:28 PM EDT [facility] Proteus spp PCR Result Not Detected Not Detected 01/18/2025 5:28 PM EDT [facility] Pseudomonas aeruginosa PCR Result Not Detected Not Detected 01/18/2025 5:28 PM EDT [facility] Salmonella spp PCR Result Not Detected Not Detected 01/18/2025 5:28 PM EDT [facility] Serratia marcescens PCR Result Not Detected Not Detected 01/18/2025 5:28 PM EDT [facility] Nelda PCR Result Not Detected Not Detected 01/18/2025 5:28 PM EDT [facility] Nelda albicans PCR Result Not Detected Not Detected 01/18/2025 5:28 PM EDT [facility] CTXM PCR Result Not Detected Not Detected 01/18/2025 5:28 PM EDT [facility] IMP PCR Result Not Detected Not Detected 01/18/2025 5:28 PM EDT [facility] KPC PCR Result Not Detected Not Detected 01/18/2025 5:28 PM EDT [facility] mecA/C and MREJ (MRSA) PCR Result Not Detected Not Detected 01/18/2025 5:28 PM EDT [facility] NDM PCR Result Not Detected Not Detected 01/18/2025 5:28 PM EDT [facility] OXA-48-like PCR Result Not Detected Not Detected 01/18/2025 5:28 PM EDT [facility] Jarret/B PCR Result Not Detected Not Detected 01/18/2025 5:28 PM EDT [facility] VIM PCR Result Not Detected Not Detected 01/18/2025 5:28 PM EDT [facility] Joint Fluid Synovial fluid specimen / Unknown Non-blood Collection / Unknown 01/18/2025 12:17 PM EDT 01/18/2025 3:24 PM EDT Narrative [facility] - 01/18/2025 5:28 PM [...] MICROBIOLOGY - GENERAL O RDERABLES Final Result [facility] [address] [place] [address] * (ABNORMAL) Tissue Culture and Gram Stain (01/18/2025 10:00 AM EDT) Culture Heavy Growth 01/20/2025 8:34 AM EDT [facility] Culture Methicillin-Resista nt Staphylococcus aureus(AA) JOVANI 01/20/2025 8:34 AM EDT [facility] Comment: The organism value for this result has been updated. These results have been appended to the previously preliminary verified report. Edited result: Previously reported as Staphylococcus aureus on 01/19/2025 at 0914 EDT. Staphylococcus aureus has been updated to reportable. Gram Stain Result Numerous Polymorphonuclear leukocytes(A) 01/20/2025 8:34 AM EDT [facility] Gram Stain Result Rare Gram positive cocci in clusters(A) 01/20/2025 8:34 AM EDT [facility] Tissue Topography unknown / [...] aureus Vancomycin JOVANI 1 ug/ml: [facility] - GENERAL ORDERABLES Final Result Performing Organization Address City/[facility]/ZIP Co de Phone Number [facility] [address] [place] [address] * Anaerobic Culture (01/18/2025 10:00 AM EDT) Culture No anaerobes isolated 01/23/2025 7:50 AM EDT [facility] Tissue Topography unknown / Unknown 01/18/2025 10:00 AM EDT 01/18/2025 3:26 PM EDT Comment:Pre-op diagnosis: Cellulitis of left lower extremity [L03.116] [facility] - GENERAL ORDERABLES Final Result Performing Organization Address [facility] Co de Phone Number [facility] [address] [place] [address] * Body fluid, cytospin, pathologist interpretation (01/18/2025 9:57 AM EDT) Specimen Type Cyst Fluid LAB HEMATOLOGY METHOD 01/20/2025 4:28 PM EDT [facility] Specimen Source, Body Fluid Other (specify site) LAB HEMATOLOGY METHOD 01/20/2025 4:28 PM EDT [facility] Clinical Diagnosis, Body Fluid Left lower extremity cyst fluid LAB HEMATOLOGY METHOD 01/20/2025 4:28 PM EDT [facility] Interpretation , Body Fluid No evidence of malignancy Bloody specimen Acute inflammatory cells Correlation with microbiology studies recommended A resident was involved in the service. I attest I examined the relevant preparations for the specimens and confirmed the diagnosis or interpretation. 01/20/2025 4:28 PM EDT [facility] Pathologist Signature, Body Fluid 01/20/2025 4:28 PM EDT [facility] Comment:Reviewed by: Stephanie conti MD LAB CP ASR DISCLAIMER Yes 01/20/2025 4:28 PM EDT [facility] Cyst Fluid Topography unknown / Unknown 01/18/2025 9:57 AM EDT 01/18/2025 3:19 PM EDT Dwaine Das DO LAB BODY FLUIDS AND STOOLS ORDERABLES Final Result [facility] [address] [place] [address] * (ABNORMAL) Body Fluid Cell Count w/ Diff (01/18/2025 9:57 AM EDT) Color, Body fluid Red LAB HEMATOLOGY METHOD 01/18/2025 7:13 PM EDT [facility] Appearance, Body fluid Cloudy(A) LAB HEMATOLOGY METHOD 01/18/2025 7:13 PM EDT [facility] Volume, Body fluid 10.0 cc LAB HEMATOLOGY METHOD 01/18/2025 7:13 PM EDT [facility] Fluid Container Specimen received in miscellaneous container LAB HEMATOLOGY METHOD 01/18/2025 7:13 PM EDT [facility] Red Blood Cell Count, Body fluid 240,000 uL LAB HEMATOLOGY METHOD 01/18/2025 7:13 PM EDT [facility] Comment:Clot present, may af fect results. Test performed by manual method. Total Nucleated Cell Count, Body fluid 83,500 uL LAB HEMATOLOGY METHOD 01/18/2025 7:13 PM EDT [facility] Comment:Clot present, may af fect results. Test performed by manual method. Neutrophils %, Body fluid 98 % LAB HEMATOLOGY METHOD 01/18/2025 7:13 PM EDT [facility] Lymphocytes %, Body fluid 2 % LAB HEMATOLOGY METHOD 01/18/2025 7:13 PM EDT [facility] Monocytes/Macr ophages %, Body fluid 0 % LAB HEMATOLOGY METHOD 01/18/2025 7:13 PM EDT [facility] Eosinophils %, Body fluid 0 % LAB HEMATOLOGY METHOD 01/18/2025 7:13 PM EDT [facility] Lining/Mesothe lial Cells %, Body fluid 0 % LAB HEMATOLOGY METHOD 01/18/2025 7:13 PM EDT [facility] Neutrophils Absolute (PMN), Body fluid 81,830 uL LAB HEMATOLOGY METHOD 01/18/2025 7:13 PM EDT [facility] Lymphocytes Absolute, Body fluid 1,670 uL LAB HEMATOLOGY METHOD 01/18/2025 7:13 PM EDT [facility] Monocytes/Macr ophages Absolute, Body fluid 0 uL LAB HEMATOLOGY METHOD 01/18/2025 7:13 PM EDT [facility] Eosinophils Absolute, Body fluid 0 uL LAB HEMATOLOGY METHOD 01/18/2025 7:13 PM EDT [facility] Basophils Absolute, Body fluid 0 uL LAB HEMATOLOGY METHOD 01/18/2025 7:13 PM EDT [facility] Lining/Mesothe lial Cells Absolute, Body fluid 0 uL LAB HEMATOLOGY METHOD 01/18/2025 7:13 PM EDT [facility] Comment, Body fluid Bacteria seen. LAB HEMATOLOGY METHOD 01/18/2025 7:13 PM EDT [facility] Basophils %, Body fluid 0 % LAB HEMATOLOGY METHOD 01/18/2025 7:13 PM EDT [facility] Cyst Fluid Topography unknown / Unknown 01/18/2025 9:57 AM EDT 01/18/2025 3:19 PM EDT Comment:Pre-op diagnosis: Cellulitis of left lower extremity [L03.116] Dwaine Das DO LAB BODY FLUIDS AND STOOLS ORDERABLES NO SPECIMEN TYPE/SOURCE Final Result [facility] [address] [place] [place] [address] * (ABNORMAL) Body Fluid Culture and Gram Stain (01/18/2025 9:57 AM EDT) Culture Heavy Growth 01/20/2025 8:34 AM EDT [facility] Culture Methicillin-Resista nt Staphylococcus aureus(AA) 01/20/2025 8:34 AM EDT [facility] Comment: For susceptibility results refer to: - [id number] The organism value for this result has been updated. These results have been appended to the previously preliminary verified report. Edited result: Previously reported as Staphylococcus aureus on 01/19/2025 at 0916 EDT. Staphylococcus aureus has been updated to reportable. Gram Stain Result Numerous Polymorphonuclear leukocytes(A) 01/20/2025 8:34 AM EDT [facility] Gram Stain Result Moderate Gram positive cocci in clusters(A) 01/20/2025 8:34 AM EDT [facility] Cyst Fluid Topography unknown / Unknown 01/18/2025 9:57 AM EDT 01/18/2025 3:26 PM EDT Comment:Pre-op diagnosis: Cellulitis of left lower extremity [L03.116] [facility] - GENERAL ORDERABLES Final Result Performing Organization Address [facility] de Phone Number [facility] [address] [place] [address] * Anaerobic Culture (01/18/2025 9:57 AM EDT) Culture No anaerobes isolated 01/23/2025 7:50 AM EDT [facility] Cyst Fluid Topography unknown / Unknown 01/18/2025 9:57 AM EDT 01/18/2025 3:26 PM EDT Comment:Pre-op diagnosis: Cellulitis of left lower extremity [L03.116] [facility] LAB MICROBIOLOGY - GENERAL ORDERABLES Final Result Performing Organization Address City/[facility] Co de Phone Number [facility] [address] [place] [address] * Methicillin Resistant Staphylococcus aureus (MRSA) by PCR (01/18/2025 7:43 AM EDT) Methicillin Resistant Staphylococcus aureus (MRSA) by PCR Not Detected Not Detected 01/18/2025 9:36 AM EDT [facility] Swab Both anterior nares / Unknown Non-blood Collection / Unknown 01/18/2025 7:43 AM EDT 01/18/2025 8:19 AM EDT Narrative [facility] - 01/18/2025 9:36 AM [...] MICROBIOLOGY - GENERAL O RDERABLES Final Result [facility] [address] [place] [id number] * (ABNORMAL) Basic metabolic panel (01/18/2025 12:18 AM EDT) Glucose, Plasma 105(H) 74 - 99 mg/dL 01/18/2025 1:30 AM EDT [facility] BUN, Plasma 14 7 - 21 mg/dL 01/18/2025 1:30 AM EDT [facility] Creatinine, Plasma 0.80 0.70 - 1.20 mg/dL 01/18/2025 1:30 AM EDT [facility] BUN/Creatinine Ratio 18 01/18/2025 1:30 AM EDT [facility] Sodium, Plasma 137 136 - 145 mmol/L 01/18/2025 1:30 AM EDT [facility] Potassium, Plasma 4.3 3.6 - 4.9 mmol/L 01/18/2025 1:30 AM EDT [facility] Chloride, Plasma 100 97 - 107 mmol/L 01/18/2025 1:30 AM EDT [facility] CO2, Plasma 26 22 - 29 mmol/L 01/18/2025 1:30 AM EDT [facility] Anion Gap 11 6 - 16 mmol/L 01/18/2025 1:30 AM EDT [facility] Total Calcium, Plasma 9.0 8.9 - 10.2 mg/dL 01/18/2025 1:30 AM EDT [facility] eGFRcr 118.4 mL/min/1.7 3m*2 01/18/2025 1:30 AM EDT [facility] Comment:Reported eGFRcr in m L/min/1.73m2 is based the CKD-EPI 2020 equation that does not use a race coefficient. Blood Venous blood specimen / Unknown Venipuncture / Unknown 01/18/2025 12:18 AM EDT 01/18/2025 12:27 AM EDT us Sachin Garza MD LAB BLOOD ORDERABLES Final R esult [facility] [address] [place] [address] * (ABNORMAL) CBC W/O Differential (01/18/2025 12:18 AM EDT) WBC Count 8.77 3.70 - 10.30 10*3/uL LAB HEMATOLOGY METHOD 01/18/2025 12:36 AM EDT [facility] RBC Count 3.94(L) 4.60 - 6.10 10*6/uL LAB HEMATOLOGY METHOD 01/18/2025 12:36 AM EDT [facility] HGB 11.7(L) 13.7 - 17.5 g/dL LAB HEMATOLOGY METHOD 01/18/2025 12:36 AM EDT [facility] HCT 37.1(L) 40.0 - 51.0 % LAB HEMATOLOGY METHOD 01/18/2025 12:36 AM EDT [facility] Platelet Count 347 155 - 369 10*3/uL LAB HEMATOLOGY METHOD 01/18/2025 12:36 AM EDT [facility] MCV 94 79 - 98 fL LAB HEMATOLOGY METHOD 01/18/2025 12:36 AM EDT [facility] MCH 29.7 26.0 - 32.0 pg LAB HEMATOLOGY METHOD 01/18/2025 12:36 AM EDT [facility] MCHC 31.5 30.7 - 35.5 g/dL LAB HEMATOLOGY METHOD 01/18/2025 12:36 AM EDT [facility] RDW 13.1 11.5 - 14.5 % LAB HEMATOLOGY METHOD 01/18/2025 12:36 AM EDT [facility] MPV 9.5 8.8 - 12.5 fL LAB HEMATOLOGY METHOD 01/18/2025 12:36 AM EDT [facility] nRBC 0.0 <=0.0 per 100 WBCs LAB HEMATOLOGY METHOD 01/18/2025 12:36 AM EDT [facility] Blood Venous blood specimen / Unknown Venipuncture / Unknown 01/18/2025 12:18 AM EDT 01/18/2025 12:29 AM EDT Sachin Garza MD LAB BLOOD ORDERABLES Final R esult Performing Organization Address [facility] Co de Phone Number [facility] [address] [place] [address] * Vancomycin, Peak, Plasma Please draw ~2 hours after 1000 dose of vancomycin on Monday finishes infusing. Consider obtaining level via peripheral stick. If peripheral stick is not feasible, please ensure that line is flushed well prior to drawing l... (01/17/2025 2:03 PM EDT) Vancomycin, Peak, Plasma 22.0 20.0 - 40.0 ug/mL 01/17/2025 3:01 PM EDT [facility] Blood Venous blood specimen / Unknown Venipuncture / Unknown 01/17/2025 2:03 PM EDT 01/17/2025 2:32 PM EDT Narrative [facility] - 01/17/2025 3:01 PM EDT Therapeutic Peak level: 20-40ug/mL Supra-therapeutic Peak level: >40 ug/mL Sachin Garza MD LAB BLOOD ORDERABLES Final R esult Performing Organization Address [facility] Co de Phone Number [facility] [address] [place] [address] * Vancomycin, Trough, Plasma Please draw ~30 minutes prior to dose due at 1000 on Monday. Please do NOT hold dose awaiting level to return. Consider obtaining level via peripheral stick. If peripheral stick is not feasible, please ensure that line ... (01/17/2025 9:53 AM EDT) Vancomycin, Trough, Plasma 12.5 10.0 - 20.0 ug/mL 01/17/2025 10:24 AM EDT [facility] Blood Venous blood specimen / Unknown Venipuncture / Unknown 01/17/2025 9:53 AM EDT 01/17/2025 9:57 AM EDT Narrative [facility] - 01/17/2025 10:24 AM EDT Therapeutic Trough level: 10-20ug/mL Supra-therapeutic Trough level: >20 ug/mL us Sachin Garza MD LAB BLOOD ORDERABLES Final R esult [facility] [address] [place] [address] * (ABNORMAL) Basic metabolic panel (01/17/2025 4:05 AM EDT) Glucose, Plasma 117(H) 74 - 99 mg/dL 01/17/2025 5:16 AM EDT [facility] BUN, Plasma 13 7 - 21 mg/dL 01/17/2025 5:16 AM EDT [facility] Creatinine, Plasma 0.75 0.70 - 1.20 mg/dL 01/17/2025 5:16 AM EDT [facility] BUN/Creatinine Ratio 17 01/17/2025 5:16 AM EDT [facility] Sodium, Plasma 135(L) 136 - 145 mmol/L 01/17/2025 5:16 AM EDT [facility] Potassium, Plasma 4.5 3.6 - 4.9 mmol/L 01/17/2025 5:16 AM EDT [facility] Chloride, Plasma 100 97 - 107 mmol/L 01/17/2025 5:16 AM EDT [facility] CO2, Plasma 25 22 - 29 mmol/L 01/17/2025 5:16 AM EDT [facility] Anion Gap 10 6 - 16 mmol/L 01/17/2025 5:16 AM EDT [facility] Total Calcium, Plasma 9.1 8.9 - 10.2 mg/dL 01/17/2025 5:16 AM EDT [facility] eGFRcr 120.7 mL/min/1.7 3m*2 01/17/2025 5:16 AM EDT [facility] Comment:Reported eGFRcr in m L/min/1.73m2 is based the CKD-EPI 2020 equation that does not use a race coefficient. Blood Venous blood specimen / Unknown Venipuncture / Unknown 01/17/2025 4:05 AM EDT 01/17/2025 4:35 AM EDT us Sachin Garza MD LAB BLOOD ORDERABLES Final R esult [facility] [address] [place] [address] * [place] Extremity Limited MSK or Soft [...] - 99 mg/dL 01/16/2025 5:15 AM EDT [facility] BUN, Plasma 12 7 - 21 mg/dL 01/16/2025 5:15 AM EDT [facility] Creatinine, Plasma 0.66(L) 0.70 - 1.20 mg/dL 01/16/2025 5:15 AM EDT [facility] BUN/Creatinine Ratio 18 01/16/2025 5:15 AM EDT [facility] Sodium, Plasma 136 136 - 145 mmol/L 01/16/2025 5:15 AM EDT [facility] Potassium, Plasma 4.5 3.6 - 4.9 mmol/L 01/16/2025 5:15 AM EDT [facility] Chloride, Plasma 100 97 - 107 mmol/L 01/16/2025 5:15 AM EDT [facility] CO2, Plasma 26 22 - 29 mmol/L 01/16/2025 5:15 AM EDT [facility] Anion Gap 10 6 - 16 mmol/L 01/16/2025 5:15 AM EDT [facility] Total Calcium, Plasma 8.8(L) 8.9 - 10.2 mg/dL 01/16/2025 5:15 AM EDT [facility] eGFRcr 125.4 mL/min/1.7 3m*2 01/16/2025 5:15 AM EDT [facility] Comment:Reported eGFRcr in m L/min/1.73m2 is based the CKD-EPI 2020 equation that does not use a race coefficient. Blood Venous blood specimen / Unknown Venipuncture / Unknown 01/16/2025 4:31 AM EDT 01/16/2025 4:46 AM EDT us Jeffrey Matute MD LAB BLOOD ORDERABLES Final Re sult [facility] [address] [place] [address] * Prothrombin Time/INR (01/16/2025 4:31 AM EDT) Prothrombin Time 12.9 12.0 - 14.3 sec 01/16/2025 4:46 AM EDT [facility] INR 1.0 0.9 - 1.1 01/16/2025 4:46 AM EDT [facility] Blood Venous blood specimen / Unknown Venipuncture / Unknown 01/16/2025 4:31 AM EDT 01/16/2025 4:33 AM EDT Narrative [facility] - 01/16/2025 4:46 AM [...] MD LAB BLOOD ORDERABLES Final Re sult [facility] [address] [place] [address] * (ABNORMAL) CBC W/O Differential (01/16/2025 4:31 AM EDT) WBC Count 17.78(H) 3.70 - 10.30 10*3/uL LAB HEMATOLOGY METHOD 01/16/2025 4:36 AM EDT [facility] RBC Count 4.14(L) 4.60 - 6.10 10*6/uL LAB HEMATOLOGY METHOD 01/16/2025 4:36 AM EDT [facility] HGB 12.4(L) 13.7 - 17.5 g/dL LAB HEMATOLOGY METHOD 01/16/2025 4:36 AM EDT [facility] HCT 37.6(L) 40.0 - 51.0 % LAB HEMATOLOGY METHOD 01/16/2025 4:36 AM EDT [facility] Platelet Count 359 155 - 369 10*3/uL LAB HEMATOLOGY METHOD 01/16/2025 4:36 AM EDT [facility] MCV 91 79 - 98 fL LAB HEMATOLOGY METHOD 01/16/2025 4:36 AM EDT [facility] MCH 30.0 26.0 - 32.0 pg LAB HEMATOLOGY METHOD 01/16/2025 4:36 AM EDT [facility] MCHC 33.0 30.7 - 35.5 g/dL LAB HEMATOLOGY METHOD 01/16/2025 4:36 AM EDT [facility] RDW 13.2 11.5 - 14.5 % LAB HEMATOLOGY METHOD 01/16/2025 4:36 AM EDT [facility] MPV 9.3 8.8 - 12.5 fL LAB HEMATOLOGY METHOD 01/16/2025 4:36 AM EDT [facility] nRBC 0.0 <=0.0 per 100 WBCs LAB HEMATOLOGY METHOD 01/16/2025 4:36 AM EDT [facility] Blood Venous blood specimen / Unknown Venipuncture / Unknown 01/16/2025 4:31 AM EDT 01/16/2025 4:33 AM EDT us Jeffrey Matute MD LAB BLOOD ORDERABLES Final Re sult [facility] [address] [place] [address] * CT Tibia Fibula Left w IV [...] at day 5 01/21/2025 2:02 AM EDT [facility] Blood Venous blood specimen / Unknown Venipuncture / Unknown 01/16/2025 12:24 AM EDT 01/16/2025 1:12 AM EDT Narrative [facility] - 01/21/2025 2:02 AM EDT Low blood volume submitted, results may be compromised Gus Vigil APRN LAB MICROBIOLOGY - GENER AL ORDERABLES Final Result [facility] [address] [place] [address] * XR Chest 1 View (01/15/2025 11:21 [...] MD on 01/15/2025 11:40 PM Gus Vigil WIG STYLIST IMG XR PROCEDURES Final Result * XR [...] MD on 01/15/2025 11:40 PM Gus Vigil WIG STYLIST IMG XR PROCEDURES Final Result * Type [...] ORDERA BLES Final Result Performing Organization Address City/[facility]/ZIP Co de Phone Number BLOOD BANK [address] [place] [address], [place] * ECG Adult (01/15/2025 10:46 PM EDT) EKG DIAGNOSIS CLASS Normal MUSE ECG Ventricular Rate 92 BPM MUSE ECG Atrial Rate 92 BPM MUSE ECG VT Interval 122 ms MUSE ECG QRSD Interval 102 ms MUSE ECG QT Interval 350 ms MUSE ECG QTC Interval 432 ms MUSE ECG P [place] 56 degrees MUSE ECG R [place] 44 degrees MUSE ECG T Wave [place] 57 degrees MUSE ECG Diagnosis Normal sinus rhythm MUSE ECG Diagnosis Normal ECG MUSE ECG Diagnosis MUSE ECG Diagnosis Confirmed by Richard Mccracken ([id number]) on 01/16/2025 8:55:10 PM MUSE ECG 01/15/2025 10:4 6 PM EDT 01/16/2025 8:55 PM EDT Ye Navarro MD ECG ORDERABLES Final Resu lt Performing Organization Address City/[facility] Co de Phone Number MUSE ECG * Blood Culture (Aerobic/Anaerobet Set) (01/15/2025 10:11 PM EDT) Culture No growth at day 5 01/20/2025 11:01 PM EDT [facility] Blood Structure of antecubital vein / Unknown Venipuncture / Unknown 01/15/2025 10:11 PM EDT 01/15/2025 10:19 PM EDT Narrative [facility] - 01/20/2025 11:01 PM EDT Low blood volume submitted, results may be compromised Gus Vigil APRN LAB MICROBIOLOGY - GENER AL ORDERABLES Final Result Performing Organization Address City/[facility]/ZIP Co de Phone Number [facility] [address] [place] [address] * (ABNORMAL) Sed rate, automated (01/15/2025 10:11 PM EDT) Sedimentation Rate 46(H) <15 mm/hr 2024 10:34 PM EDT [facility] Blood Venous blood specimen / Unknown Venipuncture / Unknown 01/15/2025 10:11 PM EDT 01/15/2025 10:12 PM EDT [facility] [place]N LAB BLOOD ORDERABLES Fin al Result Performing Organization Address [facility] Co de Phone Number [facility] [address] [place] [address] * (ABNORMAL) C-Reactive protein (01/15/2025 10:11 PM EDT) [facility] CRP, Plasma 91.9(H) <=8.0 mg/L 01/15/2025 10:32 PM EDT [facility] Blood Venous blood specimen / Unknown Venipuncture / Unknown 01/15/2025 10:11 PM EDT 01/15/2025 10:12 PM EDT Narrative [facility] - 01/15/2025 10:32 PM EDT This CRP test is appropriate for assessment of infection, systemic inflammation and/or tissue injury. To assess cardiovascular disease risk order high sensitivity CRP (CRPH). Gus Vigil APRN LAB BLOOD ORDERABLES Fin al Result Performing Organization Address City/[facility]/ZIP Co de Phone Number [facility] [address] [place] [address] * (ABNORMAL) Blood gas panel, venous (01/15/2025 10:11 PM EDT) pH, Venous 7.39 7.32 - 7.43 LAB HEMATOLOGY METHOD 01/15/2025 10:14 PM EDT [facility] pCO2, Venous 47 40 - 55 mmHg LAB HEMATOLOGY METHOD 01/15/2025 10:14 PM EDT [facility] pO2, Venous 34 25 - 40 mmHg LAB HEMATOLOGY METHOD 01/15/2025 10:14 PM EDT [facility] SO2, Measured, Venous 68 65 - 80 % LAB HEMATOLOGY METHOD 01/15/2025 10:14 PM EDT [facility] Base Excess, Venous 2.8 -2.0 - 3.0 mmol/L LAB HEMATOLOGY METHOD 01/15/2025 10:14 PM EDT [facility] Bicarbonate, Calculated, Venous 29(H) 22 - 26 mmol/L LAB HEMATOLOGY METHOD 01/15/2025 10:14 PM EDT [facility] Hematocrit, Whole Blood 40.4 40.0 - 51.0 % LAB HEMATOLOGY METHOD 01/15/2025 10:14 PM EDT [facility] Sodium, Whole Blood 135(L) 136 - 145 mmol/L LAB HEMATOLOGY METHOD 01/15/2025 10:14 PM EDT [facility] Potassium, Whole Blood 4.3 3.6 - 4.9 mmol/L LAB HEMATOLOGY METHOD 01/15/2025 10:14 PM EDT [facility] Chloride, Whole Blood 99 97 - 107 mmol/L LAB HEMATOLOGY METHOD 01/15/2025 10:14 PM EDT [facility] Glucose, Whole Blood 110(H) 74 - 99 mg/dL LAB HEMATOLOGY METHOD 01/15/2025 10:14 PM EDT [facility] Lactate, Venous, Whole Blood 1.1 0.5 - 2.2 mmol/L LAB HEMATOLOGY METHOD 01/15/2025 10:14 PM EDT [facility] Ionized Calcium, Whole Blood 4.6 4.6 - 5.1 mg/dL LAB HEMATOLOGY METHOD 01/15/2025 10:14 PM EDT [facility] Blood Venous blood specimen / Unknown Venipuncture / Unknown 01/15/2025 10:11 PM EDT 01/15/2025 10:12 PM EDT us Gus Vgiil [employer] LAB BLOOD ORDERABLES Fin al Result [facility] [address] [place] [address] * (ABNORMAL) CMP (01/15/2025 10:11 PM EDT) Glucose, Plasma 116(H) 74 - 99 mg/dL 01/15/2025 10:32 PM EDT [facility] BUN, Plasma 14 7 - 21 mg/dL 01/15/2025 10:32 PM EDT [facility] Creatinine, Plasma 0.78 0.70 - 1.20 mg/dL 01/15/2025 10:32 PM EDT [facility] BUN/Creatinine Ratio 18 01/15/2025 10:32 PM EDT [facility] Sodium, Plasma 134(L) 136 - 145 mmol/L 01/15/2025 10:32 PM EDT [facility] Potassium, Plasma 4.6 3.6 - 4.9 mmol/L 01/15/2025 10:32 PM EDT [facility] Chloride, Plasma 97 97 - 107 mmol/L 01/15/2025 10:32 PM EDT [facility] CO2, Plasma 24 22 - 29 mmol/L 01/15/2025 10:32 PM EDT [facility] Anion Gap 13 6 - 16 mmol/L 01/15/2025 10:32 PM EDT [facility] Total Calcium, Plasma 8.7(L) 8.9 - 10.2 mg/dL 01/15/2025 10:32 PM EDT [facility] Total Protein 6.5 6.3 - 7.9 g/dL 01/15/2025 10:32 PM EDT [facility] Albumin, Plasma 3.7 3.5 - 5.2 g/dL 01/15/2025 10:32 PM EDT [facility] AST, Plasma 23 10 - 50 U/L 01/15/2025 10:32 PM EDT [facility] ALT, Plasma 52(H) 10 - 50 U/L 01/15/2025 10:32 PM EDT [facility] Alkaline Phosphatase, Plasma 124(H) 40 - 115 U/L 01/15/2025 10:32 PM EDT [facility] Total Bilirubin, Plasma 0.3 0.2 - 1.1 mg/dL 01/15/2025 10:32 PM EDT [facility] eGFRcr 119.3 mL/min/1.7 3m*2 01/15/2025 10:32 PM EDT [facility] Comment:Reported eGFRcr in m L/min/1.73m2 is based the CKD-EPI 2020 equation that does not use a race coefficient. Blood Venous blood specimen / Unknown Venipuncture / Unknown 01/15/2025 10:11 PM EDT 01/15/2025 10:12 PM EDT [facility] [place] [facility]N LAB BLOOD ORDERABLES Fin al Result Performing Organization Address City/[facility]/ZIP Co de Phone Number [facility] [address] [place] [address] * PT-INR (01/15/2025 10:11 PM EDT) Prothrombin Time 12.5 12.0 - 14.3 sec 01/15/2025 10:28 PM EDT [facility] INR 1.0 0.9 - 1.1 01/15/2025 10:28 PM EDT [facility] Blood Venous blood specimen / Unknown Venipuncture / Unknown 01/15/2025 10:11 PM EDT 01/15/2025 10:12 PM EDT Narrative [facility] - 01/15/2025 10:28 PM [...] of recurrent [place] INR 2.5 to 3.5 [facility] [place] Vigil [employer] LAB BLOOD ORDERABLES Fin al Result [facility] [address] [place] [address] * (ABNORMAL) CBC w/diff (01/15/2025 10:11 PM EDT) WBC Count 19.24(H) 3.70 - 10.30 10*3/uL LAB HEMATOLOGY METHOD 01/15/2025 10:14 PM EDT [facility] RBC Count 4.33(L) 4.60 - 6.10 10*6/uL LAB HEMATOLOGY METHOD 01/15/2025 10:14 PM EDT [facility] HGB 13.0(L) 13.7 - 17.5 g/dL LAB HEMATOLOGY METHOD 01/15/2025 10:14 PM EDT [facility] HCT 39.3(L) 40.0 - 51.0 % LAB HEMATOLOGY METHOD 01/15/2025 10:14 PM EDT [facility] Platelet Count 383(H) 155 - 369 10*3/uL LAB HEMATOLOGY METHOD 01/15/2025 10:14 PM EDT [facility] MCV 91 79 - 98 fL LAB HEMATOLOGY METHOD 01/15/2025 10:14 PM EDT [facility] MCH 30.0 26.0 - 32.0 pg LAB HEMATOLOGY METHOD 01/15/2025 10:14 PM EDT [facility] MCHC 33.1 30.7 - 35.5 g/dL LAB HEMATOLOGY METHOD 01/15/2025 10:14 PM EDT [facility] RDW 13.2 11.5 - 14.5 % LAB HEMATOLOGY METHOD 01/15/2025 10:14 PM EDT [facility] MPV 9.2 8.8 - 12.5 fL LAB HEMATOLOGY METHOD 01/15/2025 10:14 PM EDT [facility] nRBC 0.0 <=0.0 per 100 WBCs LAB HEMATOLOGY METHOD 01/15/2025 10:14 PM EDT [facility] Differential Type Automated LAB HEMATOLOGY METHOD 01/15/2025 10:14 PM EDT [facility] Neutrophils % 78 % LAB HEMATOLOGY METHOD 01/15/2025 10:14 PM EDT [facility] Lymphocytes % 12 % LAB HEMATOLOGY METHOD 01/15/2025 10:14 PM EDT [facility] Monocytes % 8 % LAB HEMATOLOGY METHOD 01/15/2025 10:14 PM EDT [facility] Eosinophils % 1 % LAB HEMATOLOGY METHOD 01/15/2025 10:14 PM EDT [facility] Basophils % 0 % LAB HEMATOLOGY METHOD 01/15/2025 10:14 PM EDT [facility] Immature Granulocytes % 1 % LAB HEMATOLOGY METHOD 01/15/2025 10:14 PM EDT [facility] Neutrophils Absolute 15.11(H) 1.60 - 6.10 10*3/uL LAB HEMATOLOGY METHOD 01/15/2025 10:14 PM EDT [facility] Lymphocytes Absolute 2.34 1.20 - 3.90 10*3/uL LAB HEMATOLOGY METHOD 01/15/2025 10:14 PM EDT [facility] Monocytes Absolute 1.46(H) 0.30 - 0.90 10*3/uL LAB HEMATOLOGY METHOD 01/15/2025 10:14 PM EDT [facility] Eosinophils Absolute 0.13 0.00 - 0.50 10*3/uL LAB HEMATOLOGY METHOD 01/15/2025 10:14 PM EDT [facility] Basophils Absolute 0.06 0.00 - 0.10 10*3/uL LAB HEMATOLOGY METHOD 01/15/2025 10:14 PM EDT [facility] Immature Granulocytes Absolute 0.14(H) 0.00 - 0.06 10*3/uL LAB HEMATOLOGY METHOD 01/15/2025 10:14 PM EDT [facility] Blood Venous blood specimen / Unknown Venipuncture / Unknown 01/15/2025 10:11 PM EDT 01/15/2025 10:12 PM EDT Narrative [facility] - 01/15/2025 10:14 PM EDT Therapeutic decision making should be based on absolute values, rather than percentages. Gus Vigil APRN LAB BLOOD ORDERABLES Fin al Result [facility] [address] [place] [address] documented in this encounter Visit Diagnoses Diagnosis [...] lower extremity Sepsis following procedure ([facility]) Closed fracture of left tibial plateau documented [...] Provider: Alem Witt RN - Comment: priority conflict)224 (New Bag - Provider: Taryn Miranda RN) 043 (New Bag - Provider: Taryn Miranda RN) [...] and no response to magnesium hydroxide 0924 ([facility] Hold - Provider: Automatic Transfer Provider - Reason: Patient in procedure)1216 ([facility] Unhold - Provider: Automatic Transfer [...] 0411 (Given - Provider: Taryn Miranda RN)923 ([facility] Hold - Provider: Automatic Transfer Provider - Reason: Patient in procedure)1216 ([facility] Unhold - Provider: Automatic Transfer [...] no bowel movement for 48 hours 0924 ([facility] Hold - Provider: Automatic Transfer Provider - Reason: Patient in procedure)121 ([facility] Unhold - Provider: Automatic Transfer [...] Provider - Reason: Patient in procedure)1217 ([facility] Unhold - Provider: Automatic Transfer [...] documented as of this encounter Care Teams Adjunct Spanish Instructor Relationship Specialty Start Date End Date Renetta Pardo APRN [address] [place] [address] [place] [address] PCP - General 09/09/23 documented as of this encounter
[2025-01-27 10:49] VITALS: BMI 42.3
--- OUTSIDE RECORDS SUMMARY | 2025-01-27 10:58 | XMS_ITS | Encounter Summary ---
Author Organization Healthcare Address [address] [place] [address] Care Team Providers Care Band Bias Machine Operator Name Role Phone EdvinCheloRenettagerald Dhaliwal APRN Primary Care Provider +1 -[phone] Encounter Details Date Type Department Care Team ([facility] st Contact Info) Description 12/31/2024 Orders Only External Location [address] [place] [address] Mitchell Mosley PA [address] [place], [place] [id number] Social History Tobacco Use Types Packs/Day Years Used Date Smoking Tobacco: Every Day Cigarettes 0.5 15 Smokeless Tobacco: Never Alcohol Use Standard [...] in a detention (including now)? 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 0 09/10/2023 CAGE Questionnaire Score 0 024 Utilities Answer Date Recorded In the past 12 months has th e [employer], gas, oil, or water company threatened to [...] Month) No 025 9:05 AM EDT Genoveva Branham, RN 2. Non-Specific Active Suici mike Thoughts (Past 1 Month) No 01/01/2025 9:05 AM EDT Genoveva Branham, RN 6. Suicidal Behavior (Lifetime) No 9:05 AM EDT Genoveva Branham, RN documented as of this encounter Plan of Treatment Upcoming Encounters Date Type Department Care Team (Late st Contact Info) Description 01/27/2025 11:00 AM EDT Clinical Support [facility] Medicine [address], [address] [place] [address] 02/03/2025 8:10 AM EDT Office Visit [facility] [address], 1[address] [place] [address] Lawrence Hayes MD [address] [place] [address] 02/11/2025 1:00 PM EDT Office Visit [address] [phone] Ary Santiago, RISK MANAGEMENT INTERN [address] [address] 03/03/2025 1:00 PM EDT Office Visit [address] [phone] Ary Santiago, RISK MANAGEMENT INTERN [address] [address] documented as of this encounter Procedures Procedure Name Priority Date/Time Associated Diagnosis Comments XR MSK OUTSIDE IMAGES 12/31/2024 5:54 PM EDT documented in this encounter Results * XR MSK OUTSIDE IMAGES (12/31/2024 5:54 PM EDT) Anatomical Region Laterality Modality Radiographic Patsy ging 12/31/2024 5:54 PM EDT Mitchell ZULUAGA IMG XR PROCEDURES Final Result documented in this encounter Visit Diagnoses Not on filedocumented in this encounter Additional Health Concerns Assessment Noted Time A fall risk assessment has been complete d for the patient 10/04/2023 8:38 AM EST A Body Mass Index follow-up plan has been documented for the patient 01/02/2025 10:48 AM EDT documented as of this encounter Care Teams Band Bias Machine Operator Relationship Specialty Start Date End Date Renetta Pardo, YUN [address] [place] [address] [place] [address] PCP - General 09/09/23 documented as of this encounter
--- OUTSIDE RECORDS SUMMARY | 2025-01-27 10:58 | XMS_ITS | Encounter Summary ---
Author Organization Healthcare Address [address] [place] [address] Care Team Providers Care Sports Management Internship Name Role Phone EdvinCheloRenettagerald Dhaliwal APRN Primary Care Provider +1 -[phone] Encounter Details Date Type Department Care Team ([facility] st Contact Info) Description 12/31/2024 Orders Only External Location [address] [place] [address] Mitchell Mosley PA [address] [place], [place] [id number] Social History Tobacco Use Types Packs/Day Years [...] a senior living (including now)? No 09/12/2023 CAGE ASSESSMENT Answer [...] drink first t traci in the morning (EYE-ASSISTANT PROFESSOR OF CRIMINAL JUSTICE) to steady your nerves or to get rid of a hangover? 0 09/10/2023 CAGE Questionnaire Score 0 024 Utilities Answer Date Recorded In the past 12 months has th e [employer], gas, oil, or water company threatened to [...] Description 01/27/2025 11:00 AM EDT Clinical Support [facility] Orthopaedic Surgery & Sports Medicine [address], 1st Floor [address] [place] [address] 02/03/2025 8:10 AM EDT Office Visit [facility] Orthopaedic Surgery & Sports [facility] [address], 1[address] Floor [address] [place] [address] Lawrence Hayes MD [address] [place] [address] 02/11/2025 1:00 PM EDT Office Visit [address] [phone] Ary Santiago, PIPELINE MAINTENANCE SUPERVISOR [address] [address] 03/03/2025 1:00 PM EDT Office Visit [address] [phone] Ary Santiago, PIPELINE MAINTENANCE SUPERVISOR [address] [address] documented as of this encounter Procedures Procedure [...] documented as of this encounter Care Teams Sports Management Internship Relationship Specialty Start Date End Date Renetta Pardo, YUN [address] [place] [address] [place] [address] PCP - General 09/09/23 documented as of this encounter
--- OUTSIDE RECORDS SUMMARY | 2025-01-27 10:59 | XMS_ITS | Encounter Summary ---
Author Organization Healthcare Address [address] [place] [id number] Care Team Providers Care Roll Contour Grinder Name Role Phone Renetta Pardo APRN Primary Care Provider +1 [phone] Encounter Details Date Type Department Care Team (Latest Contact Info) Description 01/20/2025 Travel Social History Tobacco Use Types Packs/Day Years [...] time in the past 12 m [facility], were you homeless or living in [...] drink first t traci in the morning (EYE-EQUIPMENT SALES SPECIALIST) to steady your nerves or to get [...] of Assessment Author No Risk Indicated 01/20/2025 8:00 PM EDT Taryn Miranda RN * Question Answer Date of Assessment Author 1. Wish to be (Past 1 Month) No 025 8:00 PM EDT Taryn Miranda, SHEREEN 2. Non-Specific Active Suici mike Thoughts (Past 1 Month) No 01/20/2025 8:00 PM EDT Forrest Miranda RN 6. Suicidal Behavior (Lifetime) No 8:00 PM EDT Taryn Miranda, SHEREEN documented as of this encounter Plan of Treatment Upcoming Encounters Date Type Department Care Team (Late st Contact Info) Description 01/27/2025 11:00 AM EDT Clinical Support [facility] Orthopaedic Surgery & Sports Medicine [address], 1st Floor [address] [place] [address] 02/03/2025 8:10 AM EDT Office Visit [facility] Orthopaedic Surgery & Sports Medicine [address], 1st Floor [address] [place] [address] Lawrence Hayes MD [address] [facility] [address] [place] [address] 02/11/2025 1:00 PM EDT Office Visit [facility] [address] [place] [address] Ary Santiago SUBSCRIPTION CREW LEADER 3101 [facility] 100 [place] [address] 03/03/2025 1:00 PM EDT Office Visit [facility] [address] [place] [address] Ary Santiago, SUBSCRIPTION CREW LEADER 3101 [facility] [address] [place] [address] documented as of this encounter Visit Diagnoses Not on filedocumented in this encounter Additional Health Concerns Infection Onset Date Last Indicated Resolved Time 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
--- OUTSIDE RECORDS SUMMARY | 2025-01-27 11:00 | XMS_ITS | Encounter Summary ---
Author Organization Healthcare Address [address] [place] [id number] Care Team Providers Care Chief Engineer Name Role Phone Renetta Pardo APRN Primary Care Provider [phone] [phone] Encounter Details Date Type Department Care Team ([facility] st Contact Info) Description 12/31/2024 Orders Only External Location [address] [place] [address] Provider, External Social History Tobacco Use Types Packs/Day Years [...] drink first t traci in the morning (EYE-DIE DRAWING CHECKER) to steady your nerves or to get [...] Branham RN documented as of this encounter Plan of Treatment Upcoming Encounters Date Type Department Care Team (Late st Contact Info) Description 01/27/2025 11:00 AM EDT Clinical Support [facility] Orthopaedic Surgery & Sports Medicine [address], 1st Floor [address] [place] [address] 02/03/2025 8:10 AM EDT Office Visit [facility] Orthopaedic Surgery & Sports Medicine [address], 1st Floor [address] [place] [address] Lawrence Hayes MD [address] [place] [address] 02/11/2025 1:00 PM EDT Office Visit [facility] [address] [place], [place] [phone] Ary Santiago, FAMILY SUPPORT SPECIALIST [address] [facility] [address] [place] 03/03/2025 1:00 PM EDT Office Visit [facility] [address] [place] [phone] Ary aSntiago, FAMILY SUPPORT SPECIALIST [address] [facility] [address] [place] [address] documented as of this encounter Procedures Procedure Name Priority Date/Time Associated Diagnosis Comments CT OUTSIDE IMAGES 12/31/2024 7:02 PM EDT documented in this encounter Results * CT OUTSIDE IMAGES (12/31/2024 7:02 PM EDT) Anatomical Region Laterality Modality Computed Tomogra phy 12/31/2024 7:02 PM EDT us External Provider IMG CT PROCEDURES Final Result documented in this encounter Visit Diagnoses Not on filedocumented in this encounter Additional Health Concerns Assessment Noted Time A fall risk assessment has been complete d for the patient 10/04/2023 8:38 AM EST A Body Mass Index follow-up plan has been documented for the patient 01/02/2025 10:48 AM EDT documented as of this encounter Care Teams Chief Engineer Relationship Specialty Start Date End Date Renetta Pardo APRN [address] [place] [address] [place] [address] PCP - General 09/09/23 documented as of this encounter
--- OUTSIDE RECORDS SUMMARY | 2025-01-27 11:00 | XMS_ITS | Encounter Summary ---
Author Organization Healthcare Address [address] [place] [address] Care Team Providers Care Cotton Bag Sewer Name Role Phone EdvinCheloRenettagerald Dhaliwal APRN Primary Care Provider [phone] [phone] Encounter Details Date Type Department Care Team ([facility] st Contact Info) Description 12/31/2024 Orders Only External Location [address] [place] [address] Mitchell Mosley PA [address] [place], [place] [id number] Social History Tobacco Use Types Packs/Day Years [...] a skilled nursing (including now)? No 09/12/2023 CAGE ASSESSMENT Answer [...] drink first t traci in the morning (EYE-PHARMACIST ASSISTANT) to steady your nerves or to get rid of a hangover? 0 09/10/2023 CAGE Questionnaire Score 0 024 Utilities Answer Date Recorded In the past 12 months has th e [employer], gas, oil, or water company threatened to [...] Description 01/27/2025 11:00 AM EDT Clinical Support [facility] Orthopaedic Surgery & Sports Medicine [address], 1st Floor [address] [place] [address] 02/03/2025 8:10 AM EDT Office Visit [facility] Orthopaedic Surgery & Sports [facility] [address], 1st Floor [address] [place] [address] Lawrence Hayes MD [address] [place] [address] 02/11/2025 1:00 PM EDT Office Visit [address] [phone] Ary Santiago, SENIOR SYSTEMS ANALYST [address] [address] 03/03/2025 1:00 PM EDT Office Visit [address] [phone] Ary Santiago, SENIOR SYSTEMS ANALYST [address] [address] documented as of this encounter Procedures Procedure [...] documented as of this encounter Care Teams Cotton Bag Sewer Relationship Specialty Start Date End Date Renetta Pardo, YUN [address] [place] [address] [place] [address] PCP - General 09/09/23 documented as of this encounter
--- OUTSIDE RECORDS SUMMARY | 2025-01-27 11:00 | XMS_ITS | Encounter Summary ---
Author Organization Healthcare Address [address] [place] [address] Care Team Providers Care Enzyme Chemist Name Role Phone EdvinCheloRenettagerald Dhaliwal APRN Primary Care Provider [phone] -[phone] Encounter Details Date Type Department Care Team ([facility] st Contact Info) Description 12/31/2024 Orders Only External Location [address] [place] [address] Mitchell Mosley PA [address] [place], [place] [id number] Social History Tobacco Use Types Packs/Day Years [...] place to sleep or slept in a half-way (including now)? No 09/12/2023 CAGE ASSESSMENT Answer [...] drink first t traci in the morning (EYE-CUTTING MACHINE OFFBEARER) to steady your nerves or to get rid of a hangover? 0 09/10/2023 CAGE Questionnaire Score 0 024 Utilities Answer Date Recorded In the past 12 months has th e [employer], gas, oil, or water company threatened to [...] Description 01/27/2025 11:00 AM EDT Clinical Support [facility] Orthopa[facility] Surgery & Sports Medicine [address], 1st Floor [address] [place] [address] 02/03/2025 8:10 AM EDT Office Visit [facility] Sports [facility] [address], 1st Floor [address] [place] [address] Lawrence Hayes MD [address] [place] [address] 02/11/2025 1:00 PM EDT Office Visit [address] [phone] Ary Santiago, PAVING RAMMER [address] [address] 03/03/2025 1:00 PM EDT Office Visit [address] [phone] Ary Santiago, PAVING RAMMER [address] [address] documented as of this encounter Procedures Procedure [...] documented as of this encounter Care Teams Enzyme Chemist Relationship Specialty Start Date End Date Renetta Pardo, YUN [address] [place] [address] [place] [address] PCP - General 09/09/23 documented as of this encounter
--- OUTSIDE RECORDS SUMMARY | 2025-01-27 11:00 | XMS_ITS | Encounter Summary ---
Author Organization Healthcare Address [address] [place] [address] Care Team Providers Care Director Government Name Role Phone Renetta Pardo APRN Primary Care Provider +1 -[phone] Encounter Details Date Type Department Care Team (Late st Contact Info) Description 01/23/2025 Clinical Support [facility] [address] [place] [address] Sonia Meyer, PharmD Social History Tobacco Use Types Packs/Day Years [...] any time in the past 12 m [facility], were you homeless or living in [...] drink first t traci in the morning (EYE-CARE COORDINATOR) to steady your nerves or to get rid of a hangover? 0 09/10/2023 CAGE Questionnaire Score 0 024 Utilities Answer Date Recorded In the past 12 months has e electric, gas, oil, or water company threatened to shut off services in your home? No 01/17/2025 Sex and Gender Information Value Date Recorded Sex Assigned at Male 09/10/2023 4:09 AM EST Legal Sex Male 7:58 PM EST Gender Identity Male 09/10/2023 4:09 AM EST Sexual Orientation Straight 09/10/2023 4: 09 AM EST documented as of this encounter Miscellaneous Notes * Progress Notes - Sonia Meyer PharmD - 01/23/2025 9:05 AM EDT Infectious Disease OPAT Follow-Up: [facility] Documentation Patient: Panda Machado : 1990 Patient Post Discharge Communication: Confirmation of IV Antimicrobials Home Health Services [facility], [facility]fusion [facility]; Comments ID / OPAT pharmacist called and spoke with chon Vega at [facility] to confirm orders for daptomycin 1100 mg IV every 24 hours until 03/03/25. Sonia Meyer PharmD, [facility] Clinical Pharmacist Infectious Diseases, OPAT Available via [employer] Secure Chat documented in this encounter Plan of Treatment Upcoming Encounters Date Type Department Care Team (Late st Contact Info) Description 01/27/2025 11:00 AM EDT Clinical Support [facility] Orthopaedic Surgery & Sports Medicine [address] 1st Floor [address] [place] [address] 02/03/2025 8:10 AM EDT Office Visit [facility] Orthopaedic Surgery & Sports Medicine [address], 1[address] [place] [address] Lawrence Hayes MD [address] [place] [address] 02/11/2025 1:00 PM EDT Office Visit [facility] [address] [place] [address] Ary Santiago, OUTBOUND SUPERVISOR 3101 [facility] 100 [place] [address] 03/03/2025 1:00 PM EDT Office Visit [facility] [address] [place] [address] Ary Santiago, OUTBOUND SUPERVISOR [address] [address] documented as of this encounter Visit Diagnoses Not on filedocumented in this encounter Additional Health Concerns Infection Onset Date Last Indicated Resolved Time 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
--- OUTSIDE RECORDS SUMMARY | 2025-01-27 11:00 | XMS_ITS | Encounter Summary ---
Author Organization Healthcare Address [address] [place] [address] Care Team Providers Care Program Support Clerk Name Role Phone EdvinCheloRenettagerald Dhaliwal APRN Primary Care Provider [phone] -[phone] Encounter Details Date Type Department Care Team (Late st Contact Info) Description 01/24/2025 Telephone [facility] Orthopaedic Surgery & Sports Medicine [address], 1st Floor [address] [place] [address] Camden Vital, PHYSICAL THERAPY TEACHER & ACUTE CARE SURG [employer] ADMIN Social History Tobacco Use Types Packs/Day Years [...] any time in the past 12 m [facility], were you homeless or living in [...] drink first t traci in the morning (EYE-PIPED BUTTONHOLE MACHINE OPERATOR) to steady your nerves or [...] as of this encounter Miscellaneous Notes * Telephone Encounter - Camden Vital, RN - 01/24/2025 11:34 AM EDT General call back performed. Significant other states patient's pain is controlled with current pain regimen. Significant other states Prevena is still in place and IV abx are going well. Significantother has all clinic numbers and f/u appointment info. No apparent issues at this time. documented in this encounter Plan of Treatment Upcoming Encounters Date Type Department Care Team (Late st Contact Info) Description 01/27/2025 11:00 AM EDT Clinical Support [facility] Orthopaedic Surgery & Sports Medicine [address], 1st Floor [address] [place] [address] 02/03/2025 8:10 AM EDT Office Visit [facility] Orthopaedic Surgery & Sports Medicine [address], 1st Floor [address] [place] [address] Lawrence Hayes MD [address] [facility] [address] [place] [address] 02/11/2025 1:00 PM EDT Office Visit [place] [address] [address] Ary Santiago, ATMOSPHERIC DRIER TENDER 3101 [facility] 100 [place] [address] 03/03/2025 1:00 PM EDT Office Visit [address] [address] Ary Santiago, ATMOSPHERIC DRIER TENDER [address] [address] documented as of this encounter [...] documented as of this encounter Care Teams Program Support Clerk Relationship Specialty Start Date End Date Renetta Pardo, ATMOSPHERIC DRIER TENDER [address] [place] [address] [place] [address] PCP - General 09/09/23 documented as of this encounter
--- OUTSIDE RECORDS SUMMARY | 2025-01-27 11:00 | XMS_ITS | Encounter Summary ---
Author Organization [facility] Address [address] [place] [id number] Care Team Providers Care Account Support Rep Name Role Phone Renetta Pardo APRN Primary Care Provider +1 -[phone] Encounter Details Date Type Department Care Team (Latest Contact Info) Description 01/01/2025 Travel Social History Tobacco Use Types Packs/Day [...] drink first t traci in the morning (EYE-CAR CLERK PULLMAN) to steady your nerves or to get [...] Author No Risk Indicated 01/01/2025 9:05 AM EDGenoveva Bradshaw RN * Question Answer Date of Assessment Author 1. Wish to be (Past 1 Month) No 025 9:05 AM Genoveva Burch RN 2. Non-Specific Active Suici mike Thoughts (Past 1 Month) No 01/01/2025 9:05 AM EDT Dials, Genoveva M, RN 6. Suicidal Behavior (Lifetime) No 9:05 AM EDT Genoveva Branham RN documented as of this encounter Plan of Treatment Upcoming Encounters Date Type Department Care Team (Late st Contact Info) Description 01/27/2025 11:00 AM EDT Clinical Support [facility] Orthopaedic Surgery & Sports Medicine [address], 1st Floor [address] [place] [address] 02/03/2025 8:10 AM EDT Office Visit [facility] Orthopaedic Surgery & Sports [facility] [address], 1st Floor [address] [place] [address] Lawrence Hayes MD [address] [facility] [address] [place] [address] 02/11/2025 1:00 PM EDT Office Visit [address] [phone] Ary Santiago, CONFECTIONERY DROPS MACHINE OPERATOR [address] [address] 03/03/2025 1:00 PM EDT Office Visit [address] [address] Ary Santiago, CONFECTIONERY DROPS MACHINE OPERATOR [address] [address] documented as of this encounter Visit Diagnoses Not on filedocumented in this encounter Additional Health Concerns Assessment Noted Time A fall risk assessment has been complete d for the patient 10/04/2023 8:38 AM EST A Body Mass Index follow-up plan has been documented for the patient 01/02/2025 10:48 AM EDT documented as of this encounter Care Teams Account Support Rep Relationship Specialty Start Date End Date Renetta Pardo, CONFECTIONERY DROPS MACHINE OPERATOR [address] [place] [address] [place] [address] PCP - General 09/09/23 documented as of this encounter
--- OUTSIDE RECORDS SUMMARY | 2025-01-27 11:00 | XMS_ITS | Encounter Summary ---
Author Organization Healthcare Address [address] [place] [address] Care Team Providers Care Production Control Coordinator Name Role Phone EdvinCheloRenettagerald Dhaliwal APRN Primary Care Provider [phone] Encounter Details Date Type Department Care Team (Late st Contact Info) Description 01/23/2025 Clinical Support [facility] [address] [place] [address] Gume Ibarra, PharmD [address] [place] [address] Social History Tobacco Use Types Packs/Day Years [...] place to sleep or slept in a [facility] (including now)? No 09/12/2023 Humiliation, Afraid, Rape, [...] any time in the past 12 m [facility], were you homeless or living in a m[facility] (including now)? No 01/17/2025 CAGE ASSESSMENT Answer [...] drink first t traci in the morning (EYE-FIRE EXTINGUISHER INSTALLER) to steady your nerves or to get [...] AM EST documented as of this encounter Plan of Treatment Upcoming Encounters Date Type Department Care Team (Late st Contact Info) Description 01/27/2025 11:00 AM EDT Clinical Support [facility] [address] [place] [address] 02/03/2025 8:10 AM EDT Office Visit [facility] [address] [place] [address] Lawrence Hayes MD [address] [place] [address] 02/11/2025 1:00 PM EDT Office Visit [facility] [address] [place] [address] Ary Santiago, PRESS SUPERVISOR [address] [facility] [address] [place] [address] 03/03/2025 1:00 PM EDT Office Visit [facility] [address] [place] [address] Ary Santiago, PRESS SUPERVISOR [address] [facility] [address] [place] [address] documented as of this encounter Visit Diagnoses [...] documented as of this encounter Care Teams Production Control Coordinator Relationship Specialty Start Date End Date Renetta Pardo, PRESS SUPERVISOR [address] [place] [address] Dr [address] [place] [address] PCP - General 09/09/23 documented as of this encounter
--- OUTSIDE RECORDS SUMMARY | 2025-01-27 11:00 | XMS_ITS | Clinical Summary ---
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 day 4 2024 7:15 AM EDT [facility] Gram Stain Result No polymorphonuclear leukocytes seen 01/25/2025 7:15 AM EDT [facility] Gram Stain Result No organisms seen 01/25/2025 7:15 AM EDT [facility] Tissue Structure of left knee region / Unknown 01/20/2025 10:30 AM EDT 01/20/2025 11:23 AM EDT Comment:Pre-op diagnosis: Closed fracture of left tibial plateau with routine healing, subsequent encounter [S82.142D] us Bob Nava MD LAB MICROBIOLOGY - GENERAL O RDERABLES Final Result Performing Organization Address City/[facility]/ZIP Co de Phone Number [facility] [address] [place] [address] * Peripheral IV (01/20/2025 10:10 AM EDT) Narrative Filemon Matute MD - 01/20/2025 10:10 AM EDT Filemon Matute MD 01/20/2025 10:25 AM Peripheral IV Date/Time: 01/20/2025 10:10 AM Placement Needle size: 18 G Location: hand Site prep: alcohol Technique: anatomical landmarks Attempts: 1 Filemon Matute MD ANESTHESIA ORDERABLES Final Res ult * IA AN ELECTIVE ENDOTRACHEAL AIRWAY, PB ANESTHESIA PLACEHOLDER [...] MD ANESTHESIA ORDERABLES Final Res ult * (ABNORMAL) Creatine Kinase (CK), Total (01/20/2025 3:40 AM EDT) Only the most recent of2 resultswithin the time period is included. Creatine Kinase, Plasma 18(L) 49 - 320 U/L 01/21/2025 12:17 PM EDT [facility] Blood Venous blood specimen / Unknown Venipuncture / Unknown 01/20/2025 3:40 AM EDT 01/20/2025 3:57 AM EDT Sachin Garza MD LAB BLOOD ORDERABLES Final R esult Performing Organization Address City/[facility]/ZIP Co de Phone Number [facility] [address] [place] [address] * Protime-INR (01/20/2025 3:40 AM EDT) Only the most recent of5 resultswithin the time period is included. Prothrombin Time 13.5 12.0 - 14.3 sec LAB COAGULATION METHOD 01/20/2025 4:17 AM EDT [facility] INR 1.0 0.9 - 1.1 LAB COAGULATION METHOD 01/20/2025 4:17 AM EDT [facility] Blood Venous blood specimen / Unknown Venipuncture / Unknown 01/20/2025 3:40 AM EDT 01/20/2025 3:56 AM EDT Narrative [facility] - 01/20/2025 4:17 AM [...] Final R esult Performing Organization Address City/[facility]/ZIP Co de Phone Number [facility] [address] [place] [address] * Vancomycin, random (01/20/2025 3:40 AM EDT) Only the most recent of2 resultswithin the time period is included. Vancomycin, Random, Plasma 20.1 ug/mL 01/20/2025 4:51 AM EDT [facility] Blood Venous blood specimen / Unknown Venipuncture / Unknown 01/20/2025 3:40 AM EDT 01/20/2025 3:57 AM EDT Sachin Garza MD LAB BLOOD ORDERABLES Final R esult Performing Organization Address [facility] Co de Phone Number [facility] [address] [place] [address] * (ABNORMAL) Body Fluid Culture and Gram Stain (01/18/2025 3:28 PM EDT) Only the most recent of3 resultswithin the time period is included. Culture Heavy Growth 01/20/2025 8:34 AM EDT [facility] Culture Methicillin-Resista nt Staphylococcus aureus(AA) 01/20/2025 8:34 AM EDT [facility] Comment: For susceptibility results refer to: - [id number] The organism value for this result has been updated. These results have been appended to the previously preliminary verified report. Edited result: Previously reported as Staphylococcus aureus on 01/19/2025 at 0933 EDT. Staphylococcus aureus has been updated to reportable. Gram Stain Result Numerous Polymorphonuclear leukocytes 01/20/2025 8:34 AM EDT [facility] Gram Stain Result No organisms seen 01/20/2025 8:34 AM EDT [facility] Joint Fluid Topography unknown / Unknown Non-blood Collection / Unknown 01/18/2025 3:28 PM EDT 01/18/2025 3:28 PM EDT Sachin Garza MD LAB MICROBIOLOGY - GENERAL O RDERABLES Final Result Performing Organization Address City/[facility] Co de Phone Number [facility] [address] [place] [address] * Anaerobic Culture (01/18/2025 3:28 PM EDT) Only the most recent of3 resultswithin the time period is included. Culture No anaerobes isolated 01/23/2025 7:50 AM EDT [facility] Joint Fluid Topography unknown / Unknown Non-blood Collection / Unknown 01/18/2025 3:28 PM EDT 01/18/2025 3:28 PM EDT us Sachin Garza MD LAB MICROBIOLOGY - GENERAL O RDERABLES Final Result [facility] [address] [place] [address] * (ABNORMAL) Body Fluid Cell Count w/ Diff (01/18/2025 3:01 PM EDT) Only the most recent of2 resultswithin the time period is included. Color, Body fluid Red LAB HEMATOLOGY METHOD 01/18/2025 11:05 PM EDT [facility] Appearance, Body fluid Cloudy(A) LAB HEMATOLOGY METHOD 01/18/2025 11:05 PM EDT [facility] Volume, Body fluid 3.5 cc LAB HEMATOLOGY METHOD 01/18/2025 11:05 PM EDT [facility] Fluid Container Specimen received in EDTA tube LAB HEMATOLOGY METHOD 01/18/2025 11:05 PM EDT [facility] Red Blood Cell Count, Body fluid 299,000 uL LAB HEMATOLOGY METHOD 01/18/2025 11:05 PM EDT [facility] Total Nucleated Cell Count, Body fluid 873 uL LAB HEMATOLOGY METHOD 01/18/2025 11:05 PM EDT [facility] Neutrophils %, Body fluid 17 % LAB HEMATOLOGY METHOD 01/18/2025 11:05 PM EDT [facility] Lymphocytes %, Body fluid 55 % LAB HEMATOLOGY METHOD 01/18/2025 11:05 PM EDT [facility] Monocytes/Macro phages %, Body fluid 27 % LAB HEMATOLOGY METHOD 01/18/2025 11:05 PM EDT [facility] Eosinophils %, Body fluid 1 % LAB HEMATOLOGY METHOD 01/18/2025 11:05 PM EDT [facility] Lining/Mesothel ial Cells %, Body fluid 0 % LAB HEMATOLOGY METHOD 01/18/2025 11:05 PM EDT [facility] Neutrophils Absolute (PMN), Body fluid 148 uL LAB HEMATOLOGY METHOD 01/18/2025 11:05 PM EDT [facility] Lymphocytes Absolute, Body fluid 480 uL LAB HEMATOLOGY METHOD 01/18/2025 11:05 PM EDT [facility] Monocytes/Macro phages Absolute, Body fluid 236 uL LAB HEMATOLOGY METHOD 01/18/2025 11:05 PM EDT [facility] Eosinophils Absolute, Body fluid 9 uL LAB HEMATOLOGY METHOD 01/18/2025 11:05 PM EDT [facility] Basophils Absolute, Body fluid 0 uL LAB HEMATOLOGY METHOD 01/18/2025 11:05 PM EDT [facility] Lining/Mesothel ial Cells Absolute, Body fluid 0 uL LAB HEMATOLOGY METHOD 01/18/2025 11:05 PM EDT [facility] Comment, Body fluid None LAB HEMATOLOGY METHOD 01/18/2025 11:05 PM EDT [facility] Comment:This is an appended report. These results have been appended to a previously preliminary verified report. Basophils %, Body fluid 0 % LAB HEMATOLOGY METHOD 01/18/2025 11:05 PM EDT [facility] Joint Fluid Structure of left knee region / Unknown 01/18/2025 3:01 PM EDT 01/18/2025 3:28 PM EDT Sachin Garza MD LAB BODY FLUIDS AND STOOLS ORDERABLES NO SPECIMEN TYPE/SOURCE Final Result [facility] [address] [place] [address] * Body fluid, cytospin, pathologist interpretation (01/18/2025 3:01 PM EDT) Only the most recent of2 resultswithin the time period is included. Specimen Type Joint Fluid LAB HEMATOLOGY METHOD 01/20/2025 4:29 PM EDT [facility] Specimen Source, Body Fluid Knee, Left LAB HEMATOLOGY METHOD 01/20/2025 4:29 PM EDT [facility] Clinical Diagnosis, Body Fluid Left lower extremity cellulitis LAB HEMATOLOGY METHOD 01/20/2025 4:29 PM EDT [facility] Interpretation , Body Fluid Bloody specimen Acute and chronic inflammatory cells Correlation with microbiology studies recommended A resident was involved in the service. I attest I examined the relevant preparations for the specimens and confirmed the diagnosis or interpretation. 01/20/2025 4:29 PM EDT [facility] Pathologist Signature, Body Fluid 01/20/2025 4:29 PM EDT [facility] Comment:Reviewed by: Stephanie conti MD LAB CP ASR DISCLAIMER Yes 01/20/2025 4:29 PM EDT [facility] Joint Fluid Structure of left knee region / Unknown 01/18/2025 3:01 PM EDT 01/18/2025 3:28 PM EDT us Sachin Garza MD LAB BODY FLUIDS AND STOOLS O RDERABLES Final Result Performing Organization Address City/[facility]/ZIP Co de Phone Number [facility] [address] [place] [address] * Joint Fluid Crystals (01/18/2025 3:01 PM EDT) Pathologist [facility] Crystals, Joint Fluid No Crystals Seen No Crystals Present 01/18/2025 5:28 PM EDT [facility] Joint Fluid Structure of left knee region / Unknown 01/18/2025 3:01 PM EDT 01/18/2025 3:28 PM EDT us Sachin Garza MD LAB BODY FLUIDS AND STOOLS O RDERABLES Final Result Performing Organization Address City/[facility] Co de Phone Number [facility] [address] [place] [address] * Joint Infection Panel by PCR (01/18/2025 12:17 PM EDT) Anaerococcus prevotii/vaginalis PCR Result Not Detected Not Detected 01/18/2025 5:28 PM EDT [facility] Clostridium perfringens PCR Result Not Detected Not Detected 01/18/2025 5:28 PM EDT [facility] Cutibacterium avidum/granulosum PCR Result Not Detected Not Detected 01/18/2025 5:28 PM EDT [facility] Enterococcus faecalis PCR Result Not Detected Not Detected 01/18/2025 5:28 PM EDT [facility] Enterococcus faecium PCR Result Not Detected Not Detected 01/18/2025 5:28 PM EDT [facility] Finegoldia magna PCR Result Not Detected Not Detected 01/18/2025 5:28 PM EDT [facility] Parvimonas micra PCR Result Not Detected Not Detected 01/18/2025 5:28 PM EDT [facility] Peptoniphilus PCR Result Not Detected Not Detected 01/18/2025 5:28 PM EDT [facility] Peptostreptococcus anaerobius PCR Result Not Detected Not Detected 01/18/2025 5:28 PM EDT [facility] Staphylococcus aureus PCR Result Not Detected Not Detected 01/18/2025 5:28 PM EDT [facility] Staphylococcus lugdunensis PCR Result Not Detected Not Detected 01/18/2025 5:28 PM EDT [facility] Streptococcus spp PCR Result Not Detected Not Detected 01/18/2025 5:28 PM EDT [facility] Streptococcus agalactiae PCR Result Not Detected Not Detected 01/18/2025 5:28 PM EDT [facility] Streptococcus pneumoniae PCR Result Not Detected Not Detected 01/18/2025 5:28 PM EDT [facility] Streptococcus pyogenes PCR Result Not Detected Not Detected 01/18/2025 5:28 PM EDT [facility] Bacteroides fragilis PCR Result Not Detected Not Detected 01/18/2025 5:28 PM EDT [facility] Citrobacter PCR Result Not Detected Not Detected 01/18/2025 5:28 PM EDT [facility] Enterobacter cloacae complex PCR Result Not Detected Not Detected 01/18/2025 5:28 PM EDT [facility] Escherichia coli PCR Result Not Detected Not Detected 01/18/2025 5:28 PM EDT [facility] Haemophilus influenzae PCR Result Not Detected Not Detected 01/18/2025 5:28 PM EDT [facility] Kingella kingae PCR Result Not Detected Not Detected 01/18/2025 5:28 PM EDT [facility] Klebsiella aerogenes PCR Result Not Detected Not Detected 01/18/2025 5:28 PM EDT [facility] Klebsiella pneumoniae group PCR Result Not Detected Not Detected 01/18/2025 5:28 PM EDT [facility] Morganella morganii PCR Result Not Detected Not Detected 01/18/2025 5:28 PM EDT [facility] Neisseria gonorrhoeae PCR Result Not Detected Not Detected 01/18/2025 5:28 PM EDT [facility] Proteus spp PCR Result Not Detected Not Detected 01/18/2025 5:28 PM EDT [facility] Pseudomonas aeruginosa PCR Result Not Detected Not Detected 01/18/2025 5:28 PM EDT [facility] Salmonella spp PCR Result Not Detected Not Detected 01/18/2025 5:28 PM EDT [facility] Serratia marcescens PCR Result Not Detected Not Detected 01/18/2025 5:28 PM EDT [facility] Nelda PCR Result Not Detected Not Detected 01/18/2025 5:28 PM EDT [facility] Nelda albicans PCR Result Not Detected Not Detected 01/18/2025 5:28 PM EDT [facility] CTXM PCR Result Not Detected Not Detected 01/18/2025 5:28 PM EDT [facility] IMP PCR Result Not Detected Not Detected 01/18/2025 5:28 PM EDT [facility] KPC PCR Result Not Detected Not Detected 01/18/2025 5:28 PM EDT [facility] mecA/C and MREJ (MRSA) PCR Result Not Detected Not Detected 01/18/2025 5:28 PM EDT [facility] NDM PCR Result Not Detected Not Detected 01/18/2025 5:28 PM EDT [facility] OXA-48-like PCR Result Not Detected Not Detected 01/18/2025 5:28 PM EDT [facility] Jarret/B PCR Result Not Detected Not Detected 01/18/2025 5:28 PM EDT [facility] VIM PCR Result Not Detected Not Detected 01/18/2025 5:28 PM EDT [facility] Joint Fluid Synovial fluid specimen / Unknown Non-blood Collection / Unknown 01/18/2025 12:17 PM EDT 01/18/2025 3:24 PM EDT [facility] - 01/18/2025 5:28 PM EDT [...] obtain isolates for antimicrobial susceptibility testing and [employer] Joint Infection Panel results should be used in conjunction with culture results for the determination of susceptibility or resistance. Sachin Garza MD LAB MICROBIOLOGY - GENERAL O RDERABLES Final Result Performing Organization Address City/State/[facility] Co de Phone Number [facility] [address] [place] [address] * IA AN ELECTIVE ENDOTRACHEAL AIRWAY, PB ANESTHESIA PLACEHOLDER [...] MD ANESTHESIA ORDERABLES Final Re sult * Methicillin Resistant Staphylococcus aureus (MRSA) by PCR (01/18/2025 7:43 AM EDT) Only the most recent of2 resultswithin the time period is included. Methicillin Resistant Staphylococcus aureus (MRSA) by PCR Not Detected Not Detected 01/18/2025 9:36 AM EDT [facility] Swab Both anterior nares / Unknown Non-blood Collection / Unknown 01/18/2025 7:43 AM EDT 01/18/2025 8:19 AM EDT Narrative [facility] - 01/18/2025 9:36 AM [...] MICROBIOLOGY - GENERAL O RDERABLES Final Result [facility] [address] [place] [address] * Vancomycin, Peak, Plasma Please draw ~2 hours after 1000 dose of vancomycin on Monday finishes infusing. Consider obtaining level via peripheral stick. If peripheral stick is not feasible, please ensure that line is flushed well prior to drawing l... (01/17/2025 2:03 PM EDT) Vancomycin, Peak, Plasma 22.0 20.0 - 40.0 ug/mL 01/17/2025 3:01 PM EDT [facility] Blood Venous blood specimen / Unknown Venipuncture / Unknown 01/17/2025 2:03 PM EDT 01/17/2025 2:32 PM EDT Narrative [facility] - 01/17/2025 3:01 PM EDT Therapeutic Peak level: 20-40ug/mL Supra-therapeutic Peak level: >40 ug/mL Sachin Garza MD LAB BLOOD ORDERABLES Final R esult Performing Organization Address [facility] Co de Phone Number [facility] [address] [place] [address] * Vancomycin, Trough, Plasma Please draw ~30 minutes prior to dose due at 1000 on Monday. Please do NOT hold dose awaiting level to return. Consider obtaining level via peripheral stick. If peripheral stick is not feasible, please ensure that line ... (01/17/2025 9:53 AM EDT) Vancomycin, Trough, Plasma 12.5 10.0 - 20.0 ug/mL 01/17/2025 10:24 AM EDT [facility] Blood Venous blood specimen / Unknown Venipuncture / Unknown 01/17/2025 9:53 AM EDT 01/17/2025 9:57 AM EDT Narrative [facility] - 01/17/2025 10:24 AM EDT Therapeutic Trough level: 10-20ug/mL Supra-therapeutic Trough level: >20 ug/mL Sachin Garza MD LAB BLOOD ORDERABLES Final R esult Performing Organization Address [facility] [place] [address] * [place] Extremity Limited MSK or Soft [...] David Jacobs MD on 01/16/2025 12:29 PM Sachin Garza MD IMG US PROCEDURES Final Resu lt * CT Tibia Fibula Left w IV [...] Martinez MD on 01/16/2025 2:31 AM Gus Tierney APRN IMG CT PROCEDURES Final Result * Blood Culture (Aerobic/Anaerobet Set) (01/16/2025 12:24 AM EDT) Only the most recent of2 resultswithin the time period is included. Culture No growth at day 5 01/21/2025 2:02 AM EDT [facility] Blood Venous blood specimen / Unknown Venipuncture / Unknown 01/16/2025 12:24 AM EDT 01/16/2025 1:12 AM EDT Narrative [facility] - 01/21/2025 2:02 AM EDT Low blood volume submitted, results may be compromised Gus Tierney APRN LAB MICROBIOLOGY - GENER AL ORDERABLES Final Result [facility] [address] [place] [address] * XR Chest 1 View (01/15/2025 11:21 PM EDT) Only the most recent of2 resultswithin the time period is included. Anatomical Region Laterality Modality Chest Computed Radiogr [...] XR PROCEDURES Final Re sult * XR Tibia Fibula Left 2+ Views (01/15/2025 11:21 PM EDT) Only the most recent of2 resultswithin the time period is included. Anatomical Region Laterality Modality Lower Extremities, Lower [...] Rogers MD on 01/15/2025 11:40 PM Gus Tierney TECHNICAL SUPPORT AGENT IMG XR PROCEDURES Final Result * XR Knee Left 3 Views (01/15/2025 11:21 PM EDT) Only the most recent of3 resultswithin the time period is included. Anatomical Region Laterality Modality Lower Extremities, Knee [...] Rogers MD on 01/15/2025 11:40 PM Gus Tierney TECHNICAL SUPPORT AGENT IMG XR PROCEDURES Final Result * Type and Screen (01/15/2025 10:51 PM EDT) Only the most recent of2 resultswithin the time period is included. ABO/Rh A Positive 01/15/2025 10:26 PM EDT [facility] Antibody Screen Negative 01/15/2025 10:26 PM EDT [facility] Specimen Expiration 01/18/2025 23:59 01/15/2025 10:26 PM EDT [facility] Blood Venous blood specimen / Unknown Venipuncture / Unknown 01/15/2025 10:51 PM EDT 01/15/2025 10:58 PM EDT us Ye Navarro MD LAB BLOOD BANK TEST ORDERA BLES Final Result Performing Organization Address City/[facility] Co de Phone Number BLOOD BANK [address] [place] [address], [place] * ECG Adult (01/15/2025 10:46 PM EDT) Only the most recent of3 resultswithin the time period is included. EKG DIAGNOSIS CLASS Normal MUSE ECG Ventricular Rate 92 BPM MUSE ECG Atrial Rate 92 BPM MUSE ECG IA Interval 122 ms MUSE ECG QRSD Interval 102 ms MUSE ECG QT Interval 350 ms MUSE ECG QTC Interval 432 ms MUSE ECG P [place] 56 degrees MUSE ECG R [place] 44 degrees MUSE ECG T Wave [place] 57 degrees MUSE ECG Diagnosis Normal sinus rhythm MUSE ECG Diagnosis Normal ECG MUSE ECG Diagnosis MUSE ECG Diagnosis Confirmed by Richadr Mccracken ([id number]) on 01/16/2025 8:55:10 PM MUSE ECG 01/15/2025 10:4 6 PM EDT 01/16/2025 8:55 PM EDT us Ye Navarro MD ECG ORDERABLES Final Resu lt MUSE ECG * (ABNORMAL) Sed rate, automated (01/15/2025 10:11 PM EDT) Sedimentation Rate 46(H) <15 mm/hr 2024 10:34 PM EDT [facility] Blood Venous blood specimen / Unknown Venipuncture / Unknown 01/15/2025 10:11 PM EDT 01/15/2025 10:12 PM EDT Gus Tierney APRN LAB BLOOD ORDERABLES Fin al Result [facility] [address] [place] [address] * (ABNORMAL) CBC w/diff (01/15/2025 10:11 PM EDT) Only the most recent of2 resultswithin the time period is included. WBC Count 19.24(H) 3.70 - 10.30 10*3/uL LAB HEMATOLOGY METHOD 01/15/2025 10:14 PM EDT [facility] RBC Count 4.33(L) 4.60 - 6.10 10*6/uL LAB HEMATOLOGY METHOD 01/15/2025 10:14 PM EDT [facility] HGB 13.0(L) 13.7 - 17.5 g/dL LAB HEMATOLOGY METHOD 01/15/2025 10:14 PM EDT [facility] HCT 39.3(L) 40.0 - 51.0 % LAB HEMATOLOGY METHOD 01/15/2025 10:14 PM EDT [facility] Platelet Count 383(H) 155 - 369 10*3/uL LAB HEMATOLOGY METHOD 01/15/2025 10:14 PM EDT [facility] MCV 91 79 - 98 fL LAB HEMATOLOGY METHOD 01/15/2025 10:14 PM EDT [facility] MCH 30.0 26.0 - 32.0 pg LAB HEMATOLOGY METHOD 01/15/2025 10:14 PM EDT [facility] MCHC 33.1 30.7 - 35.5 g/dL LAB HEMATOLOGY METHOD 01/15/2025 10:14 PM EDT [facility] RDW 13.2 11.5 - 14.5 % LAB HEMATOLOGY METHOD 01/15/2025 10:14 PM EDT [facility] MPV 9.2 8.8 - 12.5 fL LAB HEMATOLOGY METHOD 01/15/2025 10:14 PM EDT [facility] nRBC 0.0 <=0.0 per 100 WBCs LAB HEMATOLOGY METHOD 01/15/2025 10:14 PM EDT [facility] Differential Type Automated LAB HEMATOLOGY METHOD 01/15/2025 10:14 PM EDT [facility] Neutrophils % 78 % LAB HEMATOLOGY METHOD 01/15/2025 10:14 PM EDT [facility] Lymphocytes % 12 % LAB HEMATOLOGY METHOD 01/15/2025 10:14 PM EDT [facility] Monocytes % 8 % LAB HEMATOLOGY METHOD 01/15/2025 10:14 PM EDT [facility] Eosinophils % 1 % LAB HEMATOLOGY METHOD 01/15/2025 10:14 PM EDT [facility] Basophils % 0 % LAB HEMATOLOGY METHOD 01/15/2025 10:14 PM EDT [facility] Immature Granulocytes % 1 % LAB HEMATOLOGY METHOD 01/15/2025 10:14 PM EDT [facility] Neutrophils Absolute 15.11(H) 1.60 - 6.10 10*3/uL LAB HEMATOLOGY METHOD 01/15/2025 10:14 PM EDT [facility] Lymphocytes Absolute 2.34 1.20 - 3.90 10*3/uL LAB HEMATOLOGY METHOD 01/15/2025 10:14 PM EDT [facility] Monocytes Absolute 1.46(H) 0.30 - 0.90 10*3/uL LAB HEMATOLOGY METHOD 01/15/2025 10:14 PM EDT [facility] Eosinophils Absolute 0.13 0.00 - 0.50 10*3/uL LAB HEMATOLOGY METHOD 01/15/2025 10:14 PM EDT [facility] Basophils Absolute 0.06 0.00 - 0.10 10*3/uL LAB HEMATOLOGY METHOD 01/15/2025 10:14 PM EDT [facility] Immature Granulocytes Absolute 0.14(H) 0.00 - 0.06 10*3/uL LAB HEMATOLOGY METHOD 01/15/2025 10:14 PM EDT [facility] Blood Venous blood specimen / Unknown Venipuncture / Unknown 01/15/2025 10:11 PM EDT 01/15/2025 10:12 PM EDT Narrative [facility] - 01/15/2025 10:14 PM EDT Therapeutic decision making should be based on absolute values, rather than percentages. Gus Tierney APRN LAB BLOOD ORDERABLES Fin al Result [facility] [address] [place] [address] * (ABNORMAL) Blood gas panel, venous (01/15/2025 10:11 PM EDT) pH, Venous 7.39 7.32 - 7.43 LAB HEMATOLOGY METHOD 01/15/2025 10:14 PM EDT [facility] pCO2, Venous 47 40 - 55 mmHg LAB HEMATOLOGY METHOD 01/15/2025 10:14 PM EDT [facility] [facility] pO2, Venous 34 25 - 40 mmHg LAB HEMATOLOGY METHOD 01/15/2025 10:14 PM EDT [facility] SO2, Measured, Venous 68 65 - 80 % LAB HEMATOLOGY METHOD 01/15/2025 10:14 PM EDT [facility] Base Excess, Venous 2.8 -2.0 - 3.0 mmol/L LAB HEMATOLOGY METHOD 01/15/2025 10:14 PM EDT [facility] Bicarbonate, Calculated, Venous 29(H) 22 - 26 mmol/L LAB HEMATOLOGY METHOD 01/15/2025 10:14 PM EDT [facility] Hematocrit, Whole Blood 40.4 40.0 - 51.0 % LAB HEMATOLOGY METHOD 01/15/2025 10:14 PM EDT [facility] Sodium, Whole Blood 135(L) 136 - 145 mmol/L LAB HEMATOLOGY METHOD 01/15/2025 10:14 PM EDT [facility] Potassium, Whole Blood 4.3 3.6 - 4.9 mmol/L LAB HEMATOLOGY METHOD 01/15/2025 10:14 PM EDT [facility] Chloride, Whole Blood 99 97 - 107 mmol/L LAB HEMATOLOGY METHOD 01/15/2025 10:14 PM EDT [facility] Glucose, Whole Blood 110(H) 74 - 99 mg/dL LAB HEMATOLOGY METHOD 01/15/2025 10:14 PM EDT [facility] Lactate, Venous, Whole Blood 1.1 0.5 - 2.2 mmol/L LAB HEMATOLOGY METHOD 01/15/2025 10:14 PM EDT [facility] Ionized Calcium, Whole Blood 4.6 4.6 - 5.1 mg/dL LAB HEMATOLOGY METHOD 01/15/2025 10:14 PM EDT [facility] Blood Venous blood specimen / Unknown Venipuncture / Unknown 01/15/2025 10:11 PM EDT 01/15/2025 10:12 PM EDT Gus Tierney APRN LAB BLOOD ORDERABLES Fin al Result [facility] [address] [place] [address] * (ABNORMAL) CMP (01/15/2025 10:11 PM EDT) Only the most recent of2 resultswithin the time period is included. Glucose, Plasma 116(H) 74 - 99 mg/dL 01/15/2025 10:32 PM EDT [facility] BUN, Plasma 14 7 - 21 mg/dL 01/15/2025 10:32 PM EDT [facility] Creatinine, Plasma 0.78 0.70 - 1.20 mg/dL 01/15/2025 10:32 PM EDT [facility] BUN/Creatinine Ratio 18 01/15/2025 10:32 PM EDT [facility] Sodium, Plasma 134(L) 136 - 145 mmol/L 01/15/2025 10:32 PM EDT [facility] Potassium, Plasma 4.6 3.6 - 4.9 mmol/L 01/15/2025 10:32 PM EDT [facility] Chloride, Plasma 97 97 - 107 mmol/L 01/15/2025 10:32 PM EDT [facility] CO2, Plasma 24 22 - 29 mmol/L 01/15/2025 10:32 PM EDT [facility] Anion Gap 13 6 - 16 mmol/L 01/15/2025 10:32 PM EDT [facility] Total Calcium, Plasma 8.7(L) 8.9 - 10.2 mg/dL 01/15/2025 10:32 PM EDT [facility] Total Protein 6.5 6.3 - 7.9 g/dL 01/15/2025 10:32 PM EDT [facility] Albumin, Plasma 3.7 3.5 - 5.2 g/dL 01/15/2025 10:32 PM EDT [facility] AST, Plasma 23 10 - 50 U/L 01/15/2025 10:32 PM EDT [facility] ALT, Plasma 52(H) 10 - 50 U/L 01/15/2025 10:32 PM EDT [facility] Alkaline Phosphatase, Plasma 124(H) 40 - 115 U/L 01/15/2025 10:32 PM EDT [facility] Total Bilirubin, Plasma 0.3 0.2 - 1.1 mg/dL 01/15/2025 10:32 PM EDT [facility] eGFRcr 119.3 mL/min/1.7 3m*2 01/15/2025 10:32 PM EDT [facility] Comment:Reported eGFRcr in m L/min/1.73m2 is based the CKD-EPI 2020 equation that does not use a race coefficient. Blood Venous blood specimen / Unknown Venipuncture / Unknown 01/15/2025 10:11 PM EDT 01/15/2025 10:12 PM EDT us Gus Tierney APRN LAB BLOOD ORDERABLES Fin al Result [facility] [address] [place] [address] * Lactate, venous (01/02/2025 2:46 AM EDT) Only the most recent of4 resultswithin the time period is included. Lactate, Venous, Whole Blood 1.8 0.5 - 2.2 mmol/L LAB HEMATOLOGY METHOD 01/02/2025 2:55 AM EDT [facility] Blood Venous blood specimen / Unknown Venipuncture / Unknown 01/02/2025 2:46 AM EDT 01/02/2025 2:53 AM EDT us Lawrence Hayes MD LAB BLOOD ORDERABLES Final Re sult [facility] [address] [place] [address] * FL Less than 1 Hour Intraoperative (01/01/2025 12:51 PM EDT) Narrative IMAGING - 01/01/2025 12:53 PM EDT Images were obtained for surgical purposes. See Lawrence Hayes's surgical note in the patient's chart for the findings. Lawrence Hayes MD IMG FLUOROSCOPY PROCEDURES Fi nal Result IMAGING * IA AN ELECTIVE ENDOTRACHEAL AIRWAY, PB ANESTHESIA PLACEHOLDER (01/01/2025 11:28 AM EDT) Narrative Rubén Millan CRNA - 01/01/2025 11:28 AM EDT Rubén Millan CRNA 01/01/2025 11:31 AM Airway Date/Time: 01/01/2025 11:28 AM Reason: elective Airway not difficult General Information and Staff Patient location during procedure: OR MINE GEOLOGIST: Rubén Millan CRNA Performed: MINE GEOLOGIST Patient Condition Indications for airway management: anesthesia [...] Additional Comments Atraumatic. No change to dentition. Filemon Matute MD ANESTHESIA ORDERABLES Final Res ult * Hemoglobin A1c (01/01/2025 7:17 AM EDT) Hemoglobin A1c 5.6 <5.7 % 01/01/2025 8:29 AM EDT [facility] Blood Venous blood specimen / Unknown Venipuncture / Unknown 01/01/2025 7:17 AM EDT 01/01/2025 7:23 AM EDT Narrative [facility] - 01/01/2025 8:29 AM EDT HA1C Interpretive Data: Diagnosis of Diabetes: Diabetic > or = 6.5% Pre-diabetic 5.7 to 6.4% Non-diabetic < or = 5.6% Glycemic Targets for Type I and Type II Diabetics: Non- Adults <7.0% Adults <6.0% Children and Adolescents <7.5% Source: [place] [employer]. Standards of medical care in diabetes,2017. Diabetes Care.2017:40 (suppl 1):S1-S135. us Lawrence Hayes MD LAB BLOOD ORDERABLES Final Re sult [facility] [address] [place] [address] * CT Knee Left wo IV Contrast [...] IMG CT PROCEDURES Final Resul t * XR Ankle Left 3+ Views (01/01/2025 [...] Georges MD on 01/01/2025 2:47 AM us Kareem Perera MD IMG XR PROCEDURES Final Result [...] 01/01/2025 2:10 AM Final report signed by eJff Georges MD on 01/01/2025 2:47 AM Narrative [...] with the final edited report. Drafted by Rihcard Head MD on 01/01/2025 2:10 AM Final report signed by Jeff Georges MD on 01/01/2025 2:47 AM us Kareem Perera MD IMG XR PROCEDURES Final Result * XR Hip Left 2 or 3 [...] Jeff Georges MD on 01/01/2025 2:47 AM Kareem Perera MD IMG XR PROCEDURES Final Result * ED HIV 1/2 Antibody/Antigen Screen w/Reflex to HIV 1/2 Differentiation (01/01/2025 12:35 AM EDT) Pathologist [facility] HIV 1 & 2 Antibody/Antigen Screen Non Reactive Non Reactive 01/01/2025 1:33 AM EDT [facility] Comment:Screening for HIV 1 & 2 antibodies, and P24 antigen is NONREACTIVE. No confirmatory testing is required. Blood Venous blood specimen / Unknown Venipuncture / Unknown 01/01/2025 12:35 AM EDT 01/01/2025 12:52 AM EDT us Kareem Perera MD LAB BLOOD ORDERABLES Final Resu lt Performing Organization Address [facility]/ZIP Co de Phone Number [facility] [address] [place] [address] * Hepatitis C Antibody - ED (01/01/2025 12:35 AM EDT) Hepatitis C Antibody Negative Negative 01/01/2025 1:33 AM EDT [facility] Blood Venous blood specimen / Unknown Venipuncture / Unknown 01/01/2025 12:35 AM EDT 01/01/2025 12:52 AM EDT us Kareem Perera MD LAB BLOOD ORDERABLES Final Resu lt Performing Organization Address City/[facility]/ZIP Co de Phone Number [facility] [address] [place] [address] * Light Green Top (01/01/2025 12:27 AM EDT) Extra Hold for add-ons 01/01/2025 3:02 AM EDT [facility] Comment:Auto resulted. Blood Venous blood specimen / Unknown 01/01/2025 12:27 AM EDT 01/01/2025 12:42 AM EDT us Kareem Perera MD LAB BLOOD ORDERABLES Final Resu lt [facility] [address] [place] [address] * CT OUTSIDE IMAGES (12/31/2024 7:02 PM EDT) Anatomical Region Laterality Modality Computed Tomogra phy 12/31/2024 7:02 PM EDT External Provider IMG CT PROCEDURES Final Result * XR MSK OUTSIDE IMAGES (12/31/2024 5:54 PM EDT) Only the most recent of4 resultswithin the time period is included. Anatomical Region Laterality Modality Radiographic Patsy ging 12/31/2024 5:54 PM EDT Mitchell ZULUAGA IMG XR PROCEDURES Final Result from Last 3 Months Additional Health Concerns Infection Onset Date Last Indicated MRSA 01/18/2025 01/18/2025 Insurance [facility] Advance Directives * Full Code (Latest Code Status on File) Date Activated Date Inactivated Comments 01/16/2025 7:53 AM 01/22/2025 7:16 PM Question Answer Comments I have reviewed the capacity from the link above and, if needed, have updated to appropriate status: Yes * Full Code Date Activated Date Inactivated Comments 01/01/2025 6:52 AM 01/02/2025 2:14 PM Question Answer Comments I have reviewed the capacity from the link above and, if needed, have updated to appropriate status: Yes * Full Code Date Activated Date Inactivated Comments 09/10/2023 2:40 AM 09/16/2023 5:45 PM Question Answer Comments Patient has decision-making capacity? Yes Care Teams Drop Wire Hanger Relationship Specialty Start Date End Date Renetta Pardo, YUN [address] [place] [address] [place] [address] PCP - General 09/09/23
--- OUTSIDE RECORDS SUMMARY | 2025-01-27 11:01 | XMS_ITS | Encounter Summary ---
Author Organization [facility] Address [address] [id number] Care Team Providers Care Bullet Slug Casting Machine Operator Name Role Phone Renetta Pardo APRN Primary Care Provider [phone] Encounter Details Date Type Department Care Team (Latest Contact Info) Description 01/15/2025 Travel Social History Tobacco Use Types Packs/Day [...] in a prison (including now)? No 09/12/2023 CAGE ASSESSMENT Answer [...] drink first t traci in the morning (EYE-WIRE COATING MACHINE OPERATOR) to steady your nerves or [...] Date of Assessment Author No Risk Indicated 01/15/2025 9:42 PM Stephy Cronin * Question Answer Date of Assessment Author 1. Wish to be (Past 1 Month) No 025 9:42 PM Magnus Cronin 2. Non-Specific Active Suici mike Thoughts (Past 1 Month) No 01/15/2025 9:42 PM Magnus Cronin 6. Suicidal Behavior (Lifetime) No 9:42 PM EDT Magnus Hernandez documented as of this encounter Plan of Treatment Upcoming Encounters Date Type Department Care Team (Late st Contact Info) Description 02/03/2025 8:10 AM EDT Office Visit [facility] Orthopaedic Surgery & Sports Medicine [address] [place] [address] Lawrence Hayes MD [address] [place] [address] 02/11/2025 1:00 PM EDT Office Visit [facility] [address] [place] [address] Ary Santiago, BRANDS EDITOR [address] [facility] [address] [place] [address] 03/03/2025 1:00 PM EDT Office Visit [facility] [address] [place] [address] Ary Santiago, BRANDS EDITOR [address] [facility] [address] [place] [address] documented as of this encounter Visit Diagnoses Not on filedocumented in this encounter Additional Health Concerns Assessment Noted Time A fall risk assessment has been complete d for the patient 10/04/2023 8:38 AM EST A Body Mass Index follow-up plan has been documented for the patient 01/22/2025 4:22 PM EDT documented as of this encounter Care Teams Bullet Slug Casting Machine Operator Relationship Specialty Start Date End Date Renetta Pardo, BRANDS EDITOR [address] [place] [address] [address] [place] [address] PCP - General 09/09/23 documented as of this encounter
--- OUTSIDE RECORDS SUMMARY | 2025-01-27 11:01 | XMS_ITS | Encounter Summary ---
Author Organization Healthcare Address [address] [id number] Care Team Providers Care Animal Keeper Head Name Role Phone Renetta Pardo APRN Primary Care Provider [phone] Encounter Details Date Type Department Care Team (Latest Contact Info) Description 01/16/2025 Travel Social History Tobacco Use Types Packs/Day [...] time in the past 12 m [facility], were you homeless or living [...] drink first t traci in the morning (EYE-CONTACT LENS INSPECTOR) to steady your nerves or to [...] Date of Assessment Author No Risk Indicated 01/16/2025 9:09 PM EDT Hazel Clayton, RN * Question Answer Date of Assessment Author 1. Wish to be (Past 1 Month) No 025 9:09 PM EDT Grace Clayton, RN 2. Non-Specific Active Suici mike Thoughts (Past 1 Month) No 01/16/2025 9:09 PM EDT Grace Clayton, RN 6. Suicidal Behavior (Lifetime) No 9:09 PM EDT Grace Clayton, RN documented as of this encounter Plan of Treatment Upcoming Encounters Date Type Department Care Team (Late st Contact Info) Description 02/03/2025 8:10 AM EDT Office Visit [facility] Orthopaedic Surgery & Sports Medicine [address] [place] [address] Lawrence Hayes MD [address] [place] [address] 02/11/2025 1:00 PM EDT Office Visit [facility] [address] [place] [address] Ary Santiago APRN [address] [facility] [address] [place] [address] 03/03/2025 1:00 PM EDT Office Visit [facility] [address] [place] [address] Ary Santiago APRN [address] [facility] [place] [address] [place] [address] documented as of this encounter Visit Diagnoses Not on filedocumented in this encounter Additional Health Concerns Assessment Noted Time A fall risk assessment has been complete d for the patient 10/04/2023 8:38 AM EST A Body Mass Index follow-up plan has been documented for the patient 01/22/2025 4:22 PM EDT documented as of this encounter Care Teams Animal Keeper Head Relationship Specialty Start Date End Date Renetta Pardo, MOLD TECHNICIAN [address] [place] [address] Dr [address] [place] [address] PCP - General 09/09/23 documented as of this encounter
--- OUTSIDE RECORDS SUMMARY | 2025-01-27 11:01 | XMS_ITS | Encounter Summary ---
Author Organization Healthcare Address [address] [place] [address] Care Team Providers Care Hammer Driver Name Role Phone EdvinCheloRenettagerald Dhaliwal APRN Primary Care Provider [phone] Encounter Details Date Type Department Care Team (Late st Contact Info) Description 01/07/2025 Telephone [facility] Orthopaedic Surgery & Sports Medicine [address] [place] [address] Camden Vital, TAXI TRUCK DRIVER & ACUTE CARE SURG SVCS ADMIN Social [...] drink first t traci in the morning (EYE-PRESS CLIPPER) to steady your nerves or to get [...] Telephone Encounter - Camden Vital, RN - 01/07/2025 2:46 PM EDT General call back performed. Unable to contact. Not patient's number and the person is not with himright now. documented in this encounter Plan of Treatment Upcoming Encounters Date Type Department Care Team (Late st Contact Info) Description 02/03/2025 8:10 AM EDT Office Visit [facility] Orthopaedic Surgery & Sports Medicine [address] [place] [address] Lawrence Hayes MD [address] [place] [address] 02/11/2025 1:00 PM EDT Office Visit [facility] [address] [place] [address] Ary Santiago, HOSPITAL CORPSMAN [address] [facility] [address] [place] [address] 03/03/2025 1:00 PM EDT Office Visit [facility] [address] [place] [address] Ary Santiago, HOSPITAL CORPSMAN [address] [facility] [address] [place] [address] documented as of this encounter Visit Diagnoses Not on filedocumented in this encounter Additional Health Concerns Assessment Noted Time A fall risk assessment has been complete d for the patient 10/04/2023 8:38 AM EST A Body Mass Index follow-up plan has been documented for the patient 01/02/2025 10:48 AM EDT documented as of this encounter Care Teams Hammer Driver Relationship Specialty Start Date End Date Renetta Pardo, HOSPITAL CORPSMAN [address] [place] [address] Dr [address] [place] [address] PCP - General 09/09/23 documented as of this encounter
[2025-01-27 11:02] LABS: Basophils # 0.1 K/mm3 (0-0.2); Basophils % 0.7 % (0.1-2.0); Eosinophils # 0.3 Kmm3 (0.0-0.4); Eosinophils % 3.2 % (0.1-12.0); Hematocrit 37.3 % (42.0-52.0); Hemoglobin 11.9 g/dL (14.1-18.0); Immature Granulocytes # 0.22 10^3uL; Immature Granulocytes % 2.1 %; Lymphocytes # 2.7 K/mm3 (0.7-4.5); Lymphocytes % 25.4 % (10-50); Mean Corpuscular HGB Conc 31.9 g/dL (31.8-35.4); Mean Corpuscular Hemoglobin 29.7 pg (27.0-31.2); Mean Platelet Volume 9.1 fl (7.4-10.4); Monocytes # 0.7 K/mm3 (0.1-1.0); Neutrophils # 6.5 K/mm3 (1.8-7.8); Neutrophils % 61.6 % (37.0-80.0); Nucleated Red Blood Cells # 0 10^3/uL; Nucleated Red Blood Cells % 0 %; Platelet Count 480 K/mm3 (142-424); Red Blood Count 4.01 M/mm3 (4.60-6.20); Red Cell Distribution Width 12.8 % (11.5-17.5); Red Cell Distribution Width-SD 43.8 fL; White Blood Count 10.6 K/mm3 (4.8-10.8)
[2025-01-27 11:16] LABS: Albumin Level 3.9 g/dl (3.5-5.0)
[2025-01-27 11:18] LABS: Blood Urea Nitrogen 26 mg/dl (9-20); Creatinine Clearance Estimated 109 mL/min (50-200); Estimated Glomerular Filt Rate 76 ml/min (>60); GFR (African American) 92 ML/MIN (>60)
[2025-01-27 11:19] LABS: Alanine Aminotransferase 35 U/L (12-78); Alkaline Phosphatase 104 U/L (38-126); Aspartate Amino Transferase 28 U/L (17-59); Bilirubin,Direct 0.1 mg/dl (0.0-0.4); Bilirubin,Indirect 0.1 mg/dL (0.0-0.9); Bilirubin,Total 0.2 mg/dl (0.2-1.3); Creatine Kinase 46 U/L (55-170); Total Protein,Serum 6.9 g/dl (6.3-8.2)
== END 2025-01-27 11:10 | disposition home or self-care (01) ==
LOC: INF 10:47
PROVIDERS: Student in an Organized Health Care Education/Training Program; PCP Family Medicine; Visit Provider Physician Assistant
DX: L03.116 Cellulitis of left lower limb (principal); Z45.2 Encounter for adjustment and management of vascular access device
CPT/HCPCS: 36592; 80076; 82550; 82565; 84520; 85025; 96523

== ENCOUNTER 2025-02-03 10:36 | Outpatient (CLI) | payer MEDICAID, SELFPAY ==
--- OUTSIDE RECORDS SUMMARY | 2024-12-31 23:53 | XMS_ITS | Encounter Summary ---
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 [facility] Comment:Screening for HIV 1 & 2 antibodies, and P24 antigen is NONREACTIVE. No confirmatory testing is required. Blood Venous blood specimen / Unknown Venipuncture / Unknown 01/01/2025 12:35 AM EDT 01/01/2025 12:52 AM EDT us Miguel Perera MD LAB BLOOD ORDERABLES Final Resu lt Performing Organization Address [facility] Co de Phone Number [facility] [address] [place] [address] * Hepatitis C Antibody - ED (01/01/2025 12:35 AM EDT) Hepatitis C Antibody Negative Negative 01/01/2025 1:33 AM EDT [facility] Blood Venous blood specimen / Unknown Venipuncture / Unknown 01/01/2025 12:35 AM EDT 01/01/2025 12:52 AM EDT us Miguel Perera MD LAB BLOOD ORDERABLES Final Resu lt Performing Organization Address [facility]/ZIP Co de Phone Number [facility] [address] [place] [address] * PT-INR (01/01/2025 12:35 AM EDT) Prothrombin Time 14.1 12.0 - 14.3 sec 01/01/2025 1:00 AM EDT [facility] INR 1.1 0.9 - 1.1 01/01/2025 1:00 AM EDT [facility] Blood Venous blood specimen / Unknown Venipuncture / Unknown 01/01/2025 12:35 AM EDT 01/01/2025 12:41 AM EDT Narrative [facility] - 01/01/2025 1:00 AM EDT OPTIMAL INR RANGES FOR PATIENT ON ORAL ANTICOAGULANT THERAPY Prevention of venous thromboembolism INR 2.0 to 3.0 In patients with heart disease: Atrial fibrillation INR 2.0 to 3.0 Valvular heart disease INR 2.0 to 3.0 Tissue heart valves INR 2.0 to 3.0 Mechanical prosthetic valves INR 2.5 to 3.5 Prevention of recurrent CO INR 2.5 to 3.5 us Miguel Perera MD LAB BLOOD ORDERABLES Final Resu lt [facility] [address] [place] [address] * (ABNORMAL) CMP (01/01/2025 12:35 AM EDT) Glucose, Plasma 110(H) 74 - 99 mg/dL 01/01/2025 1:07 AM EDT [facility] BUN, Plasma 6(L) 7 - 21 mg/dL 01/01/2025 1:07 AM EDT [facility] Creatinine, Plasma 0.72 0.70 - 1.20 mg/dL 01/01/2025 1:07 AM EDT [facility] BUN/Creatinine Ratio 8 01/01/2025 1:07 AM EDT [facility] Sodium, Plasma 136 136 - 145 mmol/L 01/01/2025 1:07 AM EDT [facility] Potassium, Plasma 3.7 3.6 - 4.9 mmol/L 01/01/2025 1:07 AM EDT [facility] Chloride, Plasma 101 97 - 107 mmol/L 01/01/2025 1:07 AM EDT [facility] CO2, Plasma 24 22 - 29 mmol/L 01/01/2025 1:07 AM EDT [facility] Anion Gap 11 6 - 16 mmol/L 01/01/2025 1:07 AM EDT [facility] Total Calcium, Plasma 8.6(L) 8.9 - 10.2 mg/dL 01/01/2025 1:07 AM EDT [facility] Total Protein 6.7 6.3 - 7.9 g/dL 01/01/2025 1:07 AM EDT [facility] Albumin, Plasma 3.8 3.5 - 5.2 g/dL 01/01/2025 1:07 AM EDT [facility] AST, Plasma 17 10 - 50 U/L 01/01/2025 1:07 AM EDT [facility] ALT, Plasma 33 10 - 50 U/L 01/01/2025 1:07 AM EDT [facility] Alkaline Phosphatase, Plasma 98 40 - 115 U/L 01/01/2025 1:07 AM EDT [facility] Total Bilirubin, Plasma 0.4 0.2 - 1.1 mg/dL 01/01/2025 1:07 AM EDT [facility] eGFRcr 122.2 mL/min/1.7 3m*2 01/01/2025 1:07 AM EDT [facility] Comment:Reported eGFRcr in m L/min/1.73m2 is based the CKD-EPI 2020 equation that does not use a race coefficient. Blood Venous blood specimen / Unknown Venipuncture / Unknown 01/01/2025 12:35 AM EDT 01/01/2025 12:41 AM EDT us Miguel Perera MD LAB BLOOD ORDERABLES Final Resu lt [facility] [address] [place] [address] * (ABNORMAL) CBC w/diff (01/01/2025 12:35 AM EDT) WBC Count 9.24 3.70 - 10.30 10*3/uL LAB HEMATOLOGY METHOD 01/01/2025 12:45 AM EDT [facility] RBC Count 4.75 4.60 - 6.10 10*6/uL LAB HEMATOLOGY METHOD 01/01/2025 12:45 AM EDT [facility] HGB 14.2 13.7 - 17.5 g/dL LAB HEMATOLOGY METHOD 01/01/2025 12:45 AM EDT [facility] HCT 43.1 40.0 - 51.0 % LAB HEMATOLOGY METHOD 01/01/2025 12:45 AM EDT [facility] Platelet Count 229 155 - 369 10*3/uL LAB HEMATOLOGY METHOD 01/01/2025 12:45 AM EDT [facility] MCV 91 79 - 98 fL LAB HEMATOLOGY METHOD 01/01/2025 12:45 AM EDT [facility] MCH 29.9 26.0 - 32.0 pg LAB HEMATOLOGY METHOD 01/01/2025 12:45 AM EDT [facility] MCHC 32.9 30.7 - 35.5 g/dL LAB HEMATOLOGY METHOD 01/01/2025 12:45 AM EDT [facility] RDW 13.2 11.5 - 14.5 % LAB HEMATOLOGY METHOD 01/01/2025 12:45 AM EDT [facility] MPV 10.8 8.8 - 12.5 fL LAB HEMATOLOGY METHOD 01/01/2025 12:45 AM EDT [facility] nRBC 0.0 <=0.0 per 100 WBCs LAB HEMATOLOGY METHOD 01/01/2025 12:45 AM EDT [facility] Differential Type Automated LAB HEMATOLOGY METHOD 01/01/2025 12:45 AM EDT [facility] Neutrophils % 66 % LAB HEMATOLOGY METHOD 01/01/2025 12:45 AM EDT [facility] Lymphocytes % 21 % LAB HEMATOLOGY METHOD 01/01/2025 12:45 AM EDT [facility] Monocytes % 10 % LAB HEMATOLOGY METHOD 01/01/2025 12:45 AM EDT [facility] Eosinophils % 3 % LAB HEMATOLOGY METHOD 01/01/2025 12:45 AM EDT [facility] Basophils % 0 % LAB HEMATOLOGY METHOD 01/01/2025 12:45 AM EDT [facility] Immature Granulocytes % 0 % LAB HEMATOLOGY METHOD 01/01/2025 12:45 AM EDT [facility] Neutrophils Absolute 6.03 1.60 - 6.10 10*3/uL LAB HEMATOLOGY METHOD 01/01/2025 12:45 AM EDT [facility] Lymphocytes Absolute 1.95 1.20 - 3.90 10*3/uL LAB HEMATOLOGY METHOD 01/01/2025 12:45 AM EDT [facility] Monocytes Absolute 0.95(H) 0.30 - 0.90 10*3/uL LAB HEMATOLOGY METHOD 01/01/2025 12:45 AM EDT [facility] Eosinophils Absolute 0.25 0.00 - 0.50 10*3/uL LAB HEMATOLOGY METHOD 01/01/2025 12:45 AM EDT [facility] Basophils Absolute 0.03 0.00 - 0.10 10*3/uL LAB HEMATOLOGY METHOD 01/01/2025 12:45 AM EDT [facility] Immature Granulocytes Absolute 0.03 0.00 - 0.06 10*3/uL LAB HEMATOLOGY METHOD 01/01/2025 12:45 AM EDT [facility] Blood Venous blood specimen / Unknown Venipuncture / Unknown 01/01/2025 12:35 AM EDT 01/01/2025 12:41 AM EDT Narrative [facility] - 01/01/2025 12:45 AM EDT Therapeutic decision making should be based on absolute values, rather than percentages. us Miguel Perera MD LAB BLOOD ORDERABLES Final Resu lt Performing Organization Address [facility]/ZIP Co de Phone Number [facility] [address] [place] [address] * Light Green Top (01/01/2025 12:27 AM EDT) Extra Hold for add-ons 01/01/2025 3:02 AM EDT [facility] Comment:Auto resulted. Blood Venous blood specimen / Unknown 01/01/2025 12:27 AM EDT 01/01/2025 12:42 AM EDT us Miguel Perera MD LAB BLOOD ORDERABLES Final Resu lt [facility] [address] [place] [address] * EKG now - STAT (adult) (01/01/2025 12:26 AM EDT) EKG DIAGNOSIS CLASS Normal MUSE ECG Ventricular Rate 81 BPM MUSE ECG Atrial Rate 81 BPM MUSE ECG [place] Interval 118 ms MUSE ECG QRSD Interval 106 ms MUSE ECG QT Interval 372 ms MUSE ECG QTC Interval 432 ms MUSE ECG P [place] 55 degrees MUSE ECG R [place] 54 degrees MUSE ECG T Wave [place] 48 degrees MUSE ECG Diagnosis Normal sinus rhythm MUSE ECG Diagnosis Normal ECG MUSE ECG Diagnosis MUSE ECG Diagnosis Confirmed by Johnathan Black ([id number]) on 01/01/2025 9:03:10 AM MUSE ECG 01/01/2025 [...] 0918 (Given - Provider: Genoveva Branham, SHEREEN)1119 ([facility] Hold - Provider: Automatic Transfer Provider - Reason: Patient in procedure)1342 ([facility] Unhold - Provider: Naty Castellanos, SHEREEN) sodium chloride 0.9 % flush 10 mL(Linked Group 2) 10 mL, Intravenous, Every 12 hours, First dose on Mon01/01/25 at 0655, Until Discontinued, Routine 0712 (Given - Provider: Loreta Marvin, SHEREEN)1119 ([facility] Hold - Provider: Automatic Transfer Provider - Reason: Patient in procedure)1342 ([facility] Unhold - Provider: Naty Castellanos RN)1805 (Given - Provider: Teri Mares, SHEREEN) 0638 (Given - Provider: Josefina Castaneda, SHEREEN) PRN Medication Order 12/31/2024 01/01/2025 01/02/2025 bisacodyl (Dulcolax) suppository 10 mg 10 mg, Rectal, Daily PRN, Starting on Mon01/01/25 at 0650, Until Sneha 01/02/25 at 1409, Routine, constipation, if no bowel movement for 72 hours and no response to magnesium hydroxide 1119 ([facility] Hold - Provider: Automatic Transfer Provider - Reason: Patient in procedure)1342 ([facility] Unhold - Provider: Naty Castellanos, SHEREEN) [...] Transfer Provider - Reason: Patient in procedure)1342 ([facility] Unhold - Provider: Naty Castellanos, SHEREEN) [...] documented as of this encounter Care Teams Credit Processor Relationship Specialty Start Date End Date Renetta Pardo APRN [address] [place] [address] [place] [address] PCP - General 09/09/23 documented as of this encounter
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
--- OUTSIDE RECORDS SUMMARY | 2025-01-15 21:32 | XMS_ITS | Encounter Summary ---
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 Incision Pretibial Left;Proximal (Active) Wound Assessment Red 01/15/250 Margins Well-defined edges;Attached edges 01/15/252149 Janeth-Wound Assessment Red 01/15/25 215 Closure Martha 01/15/252149 Wound 01/01/25 Face Left;Upper (Active) Education: Education provided on: Pain protocol/management Plan of Care: Follow up with TBD. Op-Plan: Awaiting to see how patient responds to IV abx. Contact Card Given: no Comments: Team is waiting to see if patient improves on IV abx. Awaiting ID recs. 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 He was febrile to101.3F [...] on day of presentation. He lives in [place] with his , CONSTANZA, and 2 young [...] days prior to presentation. He presented to [facility] wherehe was febrile to 101.3F. Upon [...] PA-C Division of Infectious Diseases Available on P[employer] History, assessment, and plan discussed with ID attending, Dr. Azucena Collado The following complex inpatient infectious disease services were performed today: Complex antimicrobial therapy counseling and treatment [1] History reviewed. No pertinent past medical history. [2] Past Surgical History: Procedure Laterality Date LEG SURGERY Left [3] Allergies Allergen Reactions Manning Hives [4] Current Facility-Administered Medications Medication Dose Route Frequency Provider Last Rate Last Admin acetaminophen (Tylenol) tablet 1,000 mg 1,000 mg Oral q6h [facility] Tyrone Howard MD 1,000 mg at [...] Note Ravin Ribeiro 34 y.o. male CSN: [id number] Admission: 01/15/2025 9:32 PM Primary Problem: Cellulitis of leg, left Manager French reviewed chart and spoke with patient to complete this Initial Case Management Assessment. 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 No Secondary Emergency Contact: Jenny Buenrostro Address: [address] [place] [address] Mobile Relation: Mother Insurance: Primary Visit Coverage Payer Plan Sponsor Code Group Number Group Name [facility] MEDICAID MOLINA [employer] MOLINA MEDICAID Primary Visit Coverage Subscriber Subscriber ID Subscriber Name Subscriber N Subscriber Address [id number] RAVIN RIBEIRO [id number] [place] [address] Patient information: Primary Caregiver: Self Support System: Immediate family Daily Living Activities: Functional Status: Independent Living Arrangements: Spouse/Significant other, Family Type of Residence: Private residence, Single Level [address] [place] [address] Current DME: Equipment Currently Used at Home: [...] Outpatient Dialysis Services: Living Will/Advance Directive/Power of Can Vacuum Tester /Guardian: Have you reviewed your Advance Directive [...] Pt states he lives at home in [place] with his , MIL, and two small children. Pt states his and CONSTANZA can provide assistance and transportation to f/u [...] Lao, BELTRAN, LD * Progress Notes - Suhail Dueñas 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 normalizer and Interventions: Assessed: Wound 01/01/25 Surgical Open Surgical Incision Pretibial Left;Proximal (Active) Wound Assessment Red 01/15/25 2150 Margins Well-defined edges;Attached edges 01/15/25 2150 Janeth-Wound Assessment Red 01/15/25 2150 Closure [place] 01/15/25 2150 Wound 01/01/25 Face Left;Upper (Active) [...] please contact the Orthopedic Transition Nurse at [phone] Monday through Monday 8:00 am to 2:30 [...] tibial pulse, cap refill <2 sec, digits [facility] Orthopedic Surgery Tertiary Exam Completed 01/16/25 No [...] exams. Mitch Giron MD PGY-3, Orthopaedic Surgery [facility] Orthopaedic Trauma Service Pager: [phone] Orthopaedic Recon/Spine/Foot and Ankle Service Pager: [phone] Cosigned by Sachin Garza MD at 01/18/2025 12:16 AM EDT Associated attestation - Sachin Garza MD - 01/18/2025 12:16 AM EDT I discussed the case with the resident/fellow and agree with the findings and plan as documented. Sachin Garza MD Orthopaedic Trauma * Discharge Instr - Other Orders - Camden Vital, RN - 01/16/2025 10:28 AM EDT Do [...] wound. Based upon recent changes to [place] law related to prescribing opioid pain medications, [...] please contact the Orthopedic Transition Nurse at [phone] Monday through Monday 8:00 am to 2:30 [...] start broad spectrum IV abx Serial examinations Tabitha Howard MD PGY-2, Orthopaedic Surgery [facility] Cosigned by Sachin Garza MD at [...] spectrum IV abx - admit ORT fracture WRadha Howard MD PGY-2, Orthopaedic Surgery [facility] Orthopaedic Trauma Service Pager: [phone] Orthopaedic Recon/Spine/Foot and Ankle Service Pager: [phone] [1] History reviewed. No pertinent past medical [...] 25 tablet 0 [4] Allergies Allergen Reactions Manning Hives Cosigned by Sachin Garza MD at [...] this ED in conjunction with Dr. Mann. -OSH records were reviewed and used in this [...] Orders Ordered Status Ordering Provider 01/16/25 0651 Extremity Limited MSK or Soft Tissue Left; Knee; Anterior, Posterior, Medial Once Acknowledged EMELY GIRON 01/16/25 0043 CBC W/O Differential STAT Final result TYRONE HOWARD 01/16/25 0043 Prothrombin Time/INR STAT Final result TYRONE HOWARD 01/16/25 0043 Basic Metabolic Panel, Plasma STAT Final result TYRONE HOWARD Miguel 01/15/252224 STAT Canceled TYRONE HOWARD Miguel 01/15/252224 STAT Canceled TYRONE HOWARD Miguel 01/15/252224 STAT Canceled TYRONE HOWARD 01/15/25 222 NPO diet NPO except: Sips with meds Diet effective midnight Comments: To OR with Ortho Acknowledged TYRONE HOWARD Miguel 01/15/25 222 ECG Adult Once Comments: Preop Clearance Preliminary result TYRONE HOWARD Miguel 01/15/252224 XR Chest 1 View One time imaging Comments: Preop Clearance Final result TYRONE HOWARD Miguel 01/15/252224 Type and Screen Once Final result TYRONE HOWARD Miguel 01/15/252224 Once Canceled GUS VIGIL 01/15/252224 Consult to Orthopaedics Surgery Once Specialty: Orthopaedic Surgery Provider: (Not yet assigned) Completed GUS VIGIL 01/15/252224 CT Tibia Fibula Left w IV Contrast Once Final result GUS VIGIL P 01/15/252150 XR Tibia Fibula Left 2+ Views Once Final result GUS VIGIL P 01/15/252150 XR Knee Left 3 Views Once Final result GUS VIGIL P 01/15/252133 Blood gas panel, venous STAT Final result GUS VIGIL P 01/15/252133 C-Reactive protein STAT Final result GUS VIGIL 01/15/252133 Sed rate, automated STAT Final result GUS VIGIL P 01/15/252133 Blood Culture (Aerobic/Anaerobet Set) STAT Preliminary result GUS VIGIL P 01/15/252133 Blood Culture (Aerobic/Anaerobet Set) STAT Preliminary result GUS VIGIL P 01/15/252133 Saline lock IV Once Acknowledged GUS VIGIL P 01/15/252133 CBC w/diff STAT Final result GUS VIGIL P 01/15/252133 PT-INR STAT Final result GUS VIGIL P 01/15/252133 CMP STAT Final result GUS VIGIL Assessment: Clinical Impressions as of 01/16/25 0657 Sepsis following procedure, initial encounter ([facility]) Cellulitis of left lower extremity Acute postoperative [...] diagnosis was Sepsis following procedure, initial encounter ([facility]). Diagnoses of Cellulitis of left lower extremity [...] Drug use: Never [5] Allergies Allergen Reactions Manning Hives Gus Vigil APRN 01/16/25 06 Cosigned by Philippe Mann MD at 01/18/2025 [...] 01/16/2025 0733 Date/Time Order Dose Route Action 01/15/20253 EDT fentaNYL (Sublimaze) injection 50 mcg 50 [...] 01/16/25 0733 Sepsis following procedure, initial encounter ([facility]) Cellulitis of left lower extremity Acute postoperative pain Ultimately, this patient Was admitted (Admission) The primary encounter diagnosis was Sepsis following procedure, initial encounter ([facility]). Diagnoses of Cellulitis of left lower extremity [...] Description 02/11/2025 1:00 PM EDT Office Visit [facility] [address] [place] [address] Ary Santiago, FLIGHT COMMUNICATIONS SPECIALIST [address] [facility] [address] [place] [address] 02/17/2025 8:40 AM EDT Appointment [facility] Radiology [address] [place] [address] 02/17/2025 9:20 AM EDT Office Visit [facility] Orthopaedic Surgery & Sports Medicine [address] [place] [address] Lawrence Hayes MD [address] [place] [address] 03/03/2025 1:00 PM EDT Office Visit [facility] [address] [place] [address] Ary Santiago, FLIGHT COMMUNICATIONS SPECIALIST [address] [facility] [address] [place] [address] Pending Results Name Type Priority Associated Diagnoses Date /Time AFB Culture, Non Respiratory Source and Acid Fast Stain Microbiology Routine Cellulitis of left lower extremity 01/18/2025 9:57 AM EDT AFB Culture, Non Respiratory Source and Acid Fast Stain Microbiology Routine Cellulitis of left lower extremity 01/18/2025 10:00 AM EDT Fungal Culture, Tissue and SYEDA Microbiology Routine Cellulitis of left lower extremity 01/18/2025 10:00 AM EDT Fungal Culture, Sterile Body Fluid (NOT CSF) and SYEDA Microbiology Routine Cellulitis of left lower extremity 01/18/2025 9:57 AM EDT Fungal Culture, Sterile Body Fluid (NOT CSF) and SYEDA Microbiology Routine 01/18/2025 3:2 8 PM EDT AFB Culture, Non Respiratory Source [...] healing, subsequent encounter 01/20/2025 10:30 AM EDT Fungal Culture, Tissue and SYEDA Microbiology Routine Closed fracture of left tibial plateau with routine healing, subsequent encounter 01/20/2025 10:27 AM EDT Fungal Culture, Tissue and SYEDA Microbiology Routine Closed fracture of left tibial [...] 44.4(H) <=8.0 mg/L 01/22/2025 9:25 AM EDT [facility] Blood Venous blood specimen / Unknown Venipuncture / Unknown 01/22/2025 5:04 AM EDT 01/22/2025 5:31 AM EDT Narrative [facility] - 01/22/2025 9:25 AM EDT This CRP test is appropriate for assessment of infection, systemic inflammation and/or tissue injury. To assess cardiovascular disease risk order high sensitivity CRP (CRPH). us Michelle ZULUGAA LAB BLOOD ORDERABLES Final Res ult [facility] [address] [place] [address] * Lavender Top (01/22/2025 5:04 AM EDT) Pathologist [facility] Extra Hold for add-ons 01/22/2025 8:02 AM EDT [facility] Comment:Auto resulted. Blood Venous blood specimen / Unknown 01/22/2025 5:04 AM EDT 01/22/2025 5:30 AM EDT us Sachin Garza MD LAB BLOOD ORDERABLES Final R esult Performing Organization Address City/[facility]/ZIP Co de Phone Number [facility] [address] [place] [address] * (ABNORMAL) Basic metabolic panel (01/22/2025 5:04 AM EDT) Pathologist [facility] Glucose, Plasma 91 74 - 99 mg/dL 01/22/2025 6:01 AM EDT [facility] BUN, Plasma 33(H) 7 - 21 mg/dL 01/22/2025 6:01 AM EDT [facility] Creatinine, Plasma 1.47(H) 0.70 - 1.20 mg/dL 01/22/2025 6:01 AM EDT [facility] BUN/Creatinine Ratio 22 01/22/2025 6:01 AM EDT [facility] Sodium, Plasma 137 136 - 145 mmol/L 01/22/2025 6:01 AM EDT [facility] Potassium, Plasma 5.3(H) 3.6 - 4.9 mmol/L 01/22/2025 6:01 AM EDT [facility] Chloride, Plasma 100 97 - 107 mmol/L 01/22/2025 6:01 AM EDT [facility] CO2, Plasma 28 22 - 29 mmol/L 01/22/2025 6:01 AM EDT [facility] Anion Gap 9 6 - 16 mmol/L 01/22/2025 6:01 AM EDT [facility] Total Calcium, Plasma 9.6 8.9 - 10.2 mg/dL 01/22/2025 6:01 AM EDT [facility] eGFRcr 63.4 mL/min/1.7 3m*2 01/22/2025 6:01 AM EDT [facility] Comment:Reported eGFRcr in m L/min/1.73m2 is based the CKD-EPI 2020 equation that does not use a race coefficient. Blood Venous blood specimen / Unknown Venipuncture / Unknown 01/22/2025 5:04 AM EDT 01/22/2025 5:31 AM EDT us Sachin Garza MD LAB BLOOD ORDERABLES Final R esult [facility] [address] [place] [address] * (ABNORMAL) CBC (01/21/2025 7:29 PM EDT) WBC Count 10.10 3.70 - 10.30 10*3/uL LAB HEMATOLOGY METHOD 01/21/2025 7:42 PM EDT [facility] RBC Count 3.82(L) 4.60 - 6.10 10*6/uL LAB HEMATOLOGY METHOD 01/21/2025 7:42 PM EDT [facility] HGB 11.5(L) 13.7 - 17.5 g/dL LAB HEMATOLOGY METHOD 01/21/2025 7:42 PM EDT [facility] HCT 35.2(L) 40.0 - 51.0 % LAB HEMATOLOGY METHOD 01/21/2025 7:42 PM EDT [facility] Platelet Count 446(H) 155 - 369 10*3/uL LAB HEMATOLOGY METHOD 01/21/2025 7:42 PM EDT [facility] MCV 92 79 - 98 fL LAB HEMATOLOGY METHOD 01/21/2025 7:42 PM EDT [facility] MCH 30.1 26.0 - 32.0 pg LAB HEMATOLOGY METHOD 01/21/2025 7:42 PM EDT [facility] MCHC 32.7 30.7 - 35.5 g/dL LAB HEMATOLOGY METHOD 01/21/2025 7:42 PM EDT [facility] RDW 13.1 11.5 - 14.5 % LAB HEMATOLOGY METHOD 01/21/2025 7:42 PM EDT [facility] MPV 9.1 8.8 - 12.5 fL LAB HEMATOLOGY METHOD 01/21/2025 7:42 PM EDT [facility] nRBC 0.0 <=0.0 per 100 WBCs LAB HEMATOLOGY METHOD 01/21/2025 7:42 PM EDT [facility] Blood Venous blood specimen / Unknown Venipuncture / Unknown 01/21/2025 7:29 PM EDT 01/21/2025 7:35 PM EDT us Sachin Garza MD LAB BLOOD ORDERABLES Final R esult [facility] [address] [place] [address] * (ABNORMAL) Basic metabolic panel (01/21/2025 7:29 PM EDT) Glucose, Plasma 122(H) 74 - 99 mg/dL 01/21/2025 8:03 PM EDT [facility] BUN, Plasma 31(H) 7 - 21 mg/dL 01/21/2025 8:03 PM EDT [facility] Creatinine, Plasma 1.64(H) 0.70 - 1.20 mg/dL 01/21/2025 8:03 PM EDT [facility] BUN/Creatinine Ratio 19 01/21/2025 8:03 PM EDT [facility] Sodium, Plasma 139 136 - 145 mmol/L 01/21/2025 8:03 PM EDT [facility] Potassium, Plasma 4.6 3.6 - 4.9 mmol/L 01/21/2025 8:03 PM EDT [facility] Chloride, Plasma 101 97 - 107 mmol/L 01/21/2025 8:03 PM EDT [facility] CO2, Plasma 26 22 - 29 mmol/L 01/21/2025 8:03 PM EDT [facility] Anion Gap 12 6 - 16 mmol/L 01/21/2025 8:03 PM EDT [facility] Total Calcium, Plasma 9.1 8.9 - 10.2 mg/dL 01/21/2025 8:03 PM EDT [facility] eGFRcr 55.6 mL/min/1.7 3m*2 01/21/2025 8:03 PM EDT [facility] Comment:Reported eGFRcr in m L/min/1.73m2 is based the CKD-EPI 2020 equation that does not use a race coefficient. Blood Venous blood specimen / Unknown Venipuncture / Unknown 01/21/2025 7:29 PM EDT 01/21/2025 7:35 PM EDT Sachin Garza MD LAB BLOOD ORDERABLES Final R esult [facility] [address] [place] [address] * PICC SINGLE LUMEN (SMARTFORM LINK) (01/21/2025 7:01 PM EDT) Narrative Norma Miranda RN - 01/21/2025 7:01 PM EDT Norma Miranda RN 01/21/2025 7:19 PM Insert PICC line Date/Time: 01/21/2025 7:01 PM Performed by: Norma Miranda RN Authorized by: Sachin Garza MD [employer] Protocol: Verbal consent obtained?: Yes Written consent [...] preference Patient position: Supine Catheter Lot #: [id number] 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 helper: The Beauty TribeC Solo Catheter placed: Single lumen Catheter size: 4 Fr Catheter trimmed length: 52 Catheter threaded length: 52 Vein placed in: SVC Catheter cm indwellin Catheter cm outside: 52 Placement confirmed by: Trendrating 3CG technology Pre-procedure: Landmarks identified Ultrasound guidance: [...] at day 4 2024 7:15 AM EDT [facility] Gram Stain Result No polymorphonuclear leukocytes seen 01/25/2025 7:15 AM EDT [facility] Gram Stain Result No organisms seen 01/25/2025 7:15 AM EDT [facility] Swab Structure of left knee region / Unknown 01/20/2025 10:42 AM EDT 01/20/2025 11:25 AM EDT Comment:Pre-op diagnosis: Closed fracture of left tibial plateau with routine healing, subsequent encounter [S82.142D] us Bob Nava MD LAB MICROBIOLOGY - GENERAL O RDERABLES Final Result [facility] [address] [place] [address] * Fungal Culture, Routine (01/20/2025 10:42 AM EDT) Culture No Fungal Growth at 1 Week 01/28/2025 7:34 AM EDT [facility] Swab Structure of left knee region / Unknown 01/20/2025 10:42 AM EDT 01/20/2025 11:25 AM EDT Comment:Pre-op diagnosis: Closed fracture of left tibial plateau with routine healing, subsequent encounter [S82.142D] us Bob Nava MD LAB MICROBIOLOGY - GENERAL O RDERABLES Final Result Performing Organization Address City/[facility]/ZIP Co de Phone Number [facility] [address] [place] [address] * Anaerobic Culture (01/20/2025 10:42 AM EDT) Culture No growth at day 4 01/28/2025 7:09 AM EDT [facility] Swab Structure of left knee region / Unknown 01/20/2025 10:42 AM EDT 01/20/2025 11:25 AM EDT Comment:Pre-op diagnosis: Closed fracture of left tibial plateau with routine healing, subsequent encounter [S82.142D] us Bob Nava MD LAB MICROBIOLOGY - GENERAL O RDERABLES Final Result [facility] [address] [place] [address] * Tissue Culture and Gram Stain (01/20/2025 10:30 AM EDT) Culture No growth at day 4 2024 7:15 AM EDT [facility] Gram Stain Result No polymorphonuclear leukocytes seen 01/25/2025 7:15 AM EDT [facility] Gram Stain Result No organisms seen 01/25/2025 7:15 AM EDT [facility] Tissue Structure of left knee region / Unknown 01/20/2025 10:30 AM EDT 01/20/2025 11:23 AM EDT Comment:Pre-op diagnosis: Closed fracture of left tibial plateau with routine healing, subsequent encounter [S82.142D] us Bob Nava MD LAB MICROBIOLOGY - GENERAL O RDERABLES Final Result Performing Organization Address City/[facility]/ZIP Co de Phone Number [facility] [address] [place] [address] * Anaerobic Culture (01/20/2025 10:30 AM EDT) Culture No growth at day 4 01/28/2025 7:09 AM EDT [facility] Tissue Structure of left knee region / Unknown 01/20/2025 10:30 AM EDT 01/20/2025 11:23 AM EDT Comment:Pre-op diagnosis: Closed fracture of left tibial plateau with routine healing, subsequent encounter [S82.142D] us Bob Nava MD LAB MICROBIOLOGY - GENERAL O RDERABLES Final Result Performing Organization Address City/[facility]/ZIP Co de Phone Number [facility] [address] [place] [address] * Tissue Culture and Gram Stain (01/20/2025 10:27 AM EDT) Culture No growth at day 4 2024 7:15 AM EDT [facility] Gram Stain Result No organisms seen 01/25/2025 7:15 AM EDT [facility] Gram Stain Result No polymorphonuclear leukocytes seen 01/25/2025 7:15 AM EDT [facility] Tissue Structure of left knee region / Unknown 01/20/2025 10:27 AM EDT 01/20/2025 11:24 AM EDT Comment:Pre-op diagnosis: Closed fracture of left tibial plateau with routine healing, subsequent encounter [S82.142D] Bob Nava MD LAB MICROBIOLOGY - GENERAL O RDERABLES Final Result Performing Organization Address [facility] Co de Phone Number [facility] [address] [place] [address] * Anaerobic Culture (01/20/2025 10:27 AM EDT) Culture No growth at day 4 01/28/2025 7:09 AM EDT [facility] Tissue Structure of left knee region / Unknown 01/20/2025 10:27 AM EDT 01/20/2025 11:24 AM EDT Comment:Pre-op diagnosis: Closed fracture of left tibial plateau with routine healing, subsequent encounter [S82.142D] Bob Nava MD LAB MICROBIOLOGY - GENERAL O RDERABLES Final Result Performing Organization Address [facility] Co de Phone Number [facility] [address] [place] [address] * (ABNORMAL) Creatine Kinase (CK), Total (01/20/2025 3:40 AM EDT) Creatine Kinase, Plasma 18(L) 49 - 320 U/L 01/21/2025 12:17 PM EDT [facility] Blood Venous blood specimen / Unknown Venipuncture / Unknown 01/20/2025 3:40 AM EDT 01/20/2025 3:57 AM EDT Sachin Garza MD LAB BLOOD ORDERABLES Final R esult Performing Organization Address City/[facility]/ZIP Co de Phone Number [facility] [address] [place] [address] * Vancomycin, random (01/20/2025 3:40 AM EDT) Vancomycin, Random, Plasma 20.1 ug/mL 01/20/2025 4:51 AM EDT [facility] Blood Venous blood specimen / Unknown Venipuncture / Unknown 01/20/2025 3:40 AM EDT 01/20/2025 3:57 AM EDT us Sachin Garza MD LAB BLOOD ORDERABLES Final R esult Performing Organization Address City/[facility]/ZIP Co de Phone Number [facility] [address] [place] [address] * Protime-INR (01/20/2025 3:40 AM EDT) Prothrombin Time 13.5 12.0 - 14.3 sec LAB COAGULATION METHOD 01/20/2025 4:17 AM EDT [facility] INR 1.0 0.9 - 1.1 LAB COAGULATION METHOD 01/20/2025 4:17 AM EDT [facility] Blood Venous blood specimen / Unknown Venipuncture / Unknown 01/20/2025 3:40 AM EDT 01/20/2025 3:56 AM EDT Narrative [facility] - 01/20/2025 4:17 AM EDT OPTIMAL INR RANGES FOR PATIENT ON ORAL ANTICOAGULANT THERAPY Prevention of venous thromboembolism INR 2.0 to 3.0 In patients with heart disease: Atrial fibrillation INR 2.0 to 3.0 Valvular heart disease INR 2.0 to 3.0 Tissue heart valves INR 2.0 to 3.0 Mechanical prosthetic valves INR 2.5 to 3.5 Prevention of recurrent NH INR 2.5 to 3.5 us Sachin Garza MD LAB BLOOD ORDERABLES Final R esult Performing Organization Address City/[facility]/ZIP Co de Phone Number [facility] [address] [place] [address] * (ABNORMAL) Basic metabolic panel (01/20/2025 3:40 AM EDT) Glucose, Plasma 87 74 - 99 mg/dL 01/20/2025 4:51 AM EDT [facility] BUN, Plasma 30(H) 7 - 21 mg/dL 01/20/2025 4:51 AM EDT [facility] Creatinine, Plasma 1.59(H) 0.70 - 1.20 mg/dL 01/20/2025 4:51 AM EDT [facility] BUN/Creatinine Ratio 19 01/20/2025 4:51 AM EDT [facility] Sodium, Plasma 142 136 - 145 mmol/L 01/20/2025 4:51 AM EDT [facility] Potassium, Plasma 4.7 3.6 - 4.9 mmol/L 01/20/2025 4:51 AM EDT [facility] Chloride, Plasma 104 97 - 107 mmol/L 01/20/2025 4:51 AM EDT [facility] [facility] CO2, Plasma 26 22 - 29 mmol/L 01/20/2025 4:51 AM EDT [facility] Anion Gap 12 6 - 16 mmol/L 01/20/2025 4:51 AM EDT [facility] Total Calcium, Plasma 8.9 8.9 - 10.2 mg/dL 01/20/2025 4:51 AM EDT [facility] eGFRcr 57.7 mL/min/1.7 3m*2 01/20/2025 4:51 AM EDT [facility] Comment:Reported eGFRcr in m L/min/1.73m2 is based the CKD-EPI 2020 equation that does not use a race coefficient. Blood Venous blood specimen / Unknown Venipuncture / Unknown 01/20/2025 3:40 AM EDT 01/20/2025 3:57 AM EDT us Sachin Garza MD LAB BLOOD ORDERABLES Final R esult [facility] [address] [place] [address] * (ABNORMAL) CBC W/O Differential (01/20/2025 3:40 AM EDT) WBC Count 8.11 3.70 - 10.30 10*3/uL LAB HEMATOLOGY METHOD 01/20/2025 4:04 AM EDT [facility] RBC Count 3.64(L) 4.60 - 6.10 10*6/uL LAB HEMATOLOGY METHOD 01/20/2025 4:04 AM EDT [facility] HGB 10.7(L) 13.7 - 17.5 g/dL LAB HEMATOLOGY METHOD 01/20/2025 4:04 AM EDT [facility] HCT 34.5(L) 40.0 - 51.0 % LAB HEMATOLOGY METHOD 01/20/2025 4:04 AM EDT [facility] Platelet Count 399(H) 155 - 369 10*3/uL LAB HEMATOLOGY METHOD 01/20/2025 4:04 AM EDT [facility] MCV 95 79 - 98 fL LAB HEMATOLOGY METHOD 01/20/2025 4:04 AM EDT [facility] MCH 29.4 26.0 - 32.0 pg LAB HEMATOLOGY METHOD 01/20/2025 4:04 AM EDT [facility] MCHC 31.0 30.7 - 35.5 g/dL LAB HEMATOLOGY METHOD 01/20/2025 4:04 AM EDT [facility] RDW 13.1 11.5 - 14.5 % LAB HEMATOLOGY METHOD 01/20/2025 4:04 AM EDT [facility] MPV 9.5 8.8 - 12.5 fL LAB HEMATOLOGY METHOD 01/20/2025 4:04 AM EDT [facility] nRBC 0.0 <=0.0 per 100 WBCs LAB HEMATOLOGY METHOD 01/20/2025 4:04 AM EDT [facility] Blood Venous blood specimen / Unknown Venipuncture / Unknown 01/20/2025 3:40 AM EDT 01/20/2025 3:56 AM EDT us Sachin Garza MD LAB BLOOD ORDERABLES Final R esult [facility] [address] [place] [address] * Vancomycin, random (01/19/2025 11:48 AM EDT) Vancomycin, Random, Plasma 22.9 ug/mL 01/19/2025 1:05 PM EDT [facility] Blood Venous blood specimen / Unknown Venipuncture / Unknown 01/19/2025 11:48 AM EDT 01/19/2025 11:50 AM EDT Sachin Garza MD LAB BLOOD ORDERABLES Final R esult [facility] [address] [place] [address] * (ABNORMAL) Basic Metabolic Panel, Plasma (01/18/2025 11:54 PM EDT) Glucose, Plasma 134(H) 74 - 99 mg/dL 01/19/2025 12:45 AM EDT [facility] BUN, Plasma 24(H) 7 - 21 mg/dL 01/19/2025 12:45 AM EDT [facility] Creatinine, Plasma 1.34(H) 0.70 - 1.20 mg/dL 01/19/2025 12:45 AM EDT [facility] BUN/Creatinine Ratio 18 01/19/2025 12:45 AM EDT [facility] Sodium, Plasma 137 136 - 145 mmol/L 01/19/2025 12:45 AM EDT [facility] Potassium, Plasma 4.7 3.6 - 4.9 mmol/L 01/19/2025 12:45 AM EDT [facility] Chloride, Plasma 100 97 - 107 mmol/L 01/19/2025 12:45 AM EDT [facility] CO2, Plasma 24 22 - 29 mmol/L 01/19/2025 12:45 AM EDT [facility] Anion Gap 13 6 - 16 mmol/L 01/19/2025 12:45 AM EDT [facility] Total Calcium, Plasma 9.3 8.9 - 10.2 mg/dL 01/19/2025 12:45 AM EDT [facility] eGFRcr 70.8 mL/min/1.7 3m*2 01/19/2025 12:45 AM EDT [facility] Comment:Reported eGFRcr in m L/min/1.73m2 is based the CKD-EPI 2020 equation that does not use a race coefficient. Blood Venous blood specimen / Unknown Venipuncture / Unknown 01/18/2025 11:54 PM EDT 01/19/2025 12:16 AM EDT Sachin Garza MD LAB BLOOD ORDERABLES Final R esult [facility] [address] [place] [address] * (ABNORMAL) CBC W/O Differential (01/18/2025 11:54 PM EDT) WBC Count 11.85(H) 3.70 - 10.30 10*3/uL LAB HEMATOLOGY METHOD 01/19/2025 12:20 AM EDT [facility] RBC Count 3.76(L) 4.60 - 6.10 10*6/uL LAB HEMATOLOGY METHOD 01/19/2025 12:20 AM EDT [facility] HGB 11.3(L) 13.7 - 17.5 g/dL LAB HEMATOLOGY METHOD 01/19/2025 12:20 AM EDT [facility] HCT 34.2(L) 40.0 - 51.0 % LAB HEMATOLOGY METHOD 01/19/2025 12:20 AM EDT [facility] Platelet Count 394(H) 155 - 369 10*3/uL LAB HEMATOLOGY METHOD 01/19/2025 12:20 AM EDT [facility] MCV 91 79 - 98 fL LAB HEMATOLOGY METHOD 01/19/2025 12:20 AM EDT [facility] MCH 30.1 26.0 - 32.0 pg LAB HEMATOLOGY METHOD 01/19/2025 12:20 AM EDT [facility] MCHC 33.0 30.7 - 35.5 g/dL LAB HEMATOLOGY METHOD 01/19/2025 12:20 AM EDT [facility] RDW 12.9 11.5 - 14.5 % LAB HEMATOLOGY METHOD 01/19/2025 12:20 AM EDT [facility] MPV 9.5 8.8 - 12.5 fL LAB HEMATOLOGY METHOD 01/19/2025 12:20 AM EDT [facility] nRBC 0.0 <=0.0 per 100 WBCs LAB HEMATOLOGY METHOD 01/19/2025 12:20 AM EDT [facility] Blood Venous blood specimen / Unknown Venipuncture / Unknown 01/18/2025 11:54 PM EDT 01/19/2025 12:13 AM EDT us Sachin Garza MD LAB BLOOD ORDERABLES Final R esult Performing Organization Address [facility]/ZIP Co de Phone Number [facility] [address] [place] [address] * Anaerobic Culture (01/18/2025 3:28 PM EDT) Culture No anaerobes isolated 01/23/2025 7:50 AM EDT [facility] Joint Fluid Topography unknown / Unknown Non-blood Collection / Unknown 01/18/2025 3:28 PM EDT 01/18/2025 3:28 PM EDT us Sachin Garza MD LAB MICROBIOLOGY - GENERAL O RDERABLES Final Result Performing Organization Address [facility] de Phone Number [facility] [address] [place] [address] * (ABNORMAL) Body Fluid Culture and Gram Stain (01/18/2025 3:28 PM EDT) Culture Heavy Growth 01/20/2025 8:34 AM EDT [facility] Culture Methicillin-Resista nt Staphylococcus aureus(AA) 01/20/2025 8:34 AM EDT [facility] Comment: For susceptibility results refer to: - [id number] The organism value for this result has been updated. These results have been appended to the previously preliminary verified report. Edited result: Previously reported as Staphylococcus aureus on 01/19/2025 at 0933 EDT. Staphylococcus aureus has been updated to reportable. Gram Stain Result Numerous Polymorphonuclear leukocytes 01/20/2025 8:34 AM EDT [facility] Gram Stain Result No organisms seen 01/20/2025 8:34 AM EDT [facility] Joint Fluid Topography unknown / Unknown Non-blood Collection / Unknown 01/18/2025 3:28 PM EDT 01/18/2025 3:28 PM EDT us Sachin Garza MD LAB MICROBIOLOGY - GENERAL O RDERABLES Final Result Performing Organization Address [facility] Co de Phone Number [facility] [address] [place] [address] * Body fluid, cytospin, pathologist interpretation (01/18/2025 3:01 PM EDT) Specimen Type Joint Fluid LAB HEMATOLOGY METHOD 01/20/2025 4:29 PM EDT [facility] Specimen Source, Body Fluid Knee, Left LAB HEMATOLOGY METHOD 01/20/2025 4:29 PM EDT [facility] Clinical Diagnosis, Body Fluid Left lower extremity cellulitis LAB HEMATOLOGY METHOD 01/20/2025 4:29 PM EDT [facility] Interpretation , Body Fluid Bloody specimen Acute and chronic inflammatory cells Correlation with microbiology studies recommended A resident was involved in the service. I attest I examined the relevant preparations for the specimens and confirmed the diagnosis or interpretation. 01/20/2025 4:29 PM EDT [facility] Pathologist Signature, Body Fluid 01/20/2025 4:29 PM EDT [facility] Comment:Reviewed by: Stephanie conti MD LAB CP ASR DISCLAIMER Yes 01/20/2025 4:29 PM EDT [facility] Joint Fluid Structure of left knee region / Unknown 01/18/2025 3:01 PM EDT 01/18/2025 3:28 PM EDT us Sachin Garza MD LAB BODY FLUIDS AND STOOLS O RDERABLES Final Result Performing Organization Address City/[facility]/ZIP Co de Phone Number [facility] [address] [place] [address] * Joint Fluid Crystals (01/18/2025 3:01 PM EDT) Crystals, Joint Fluid No Crystals Seen No Crystals Present 01/18/2025 5:28 PM EDT [facility] Joint Fluid Structure of left knee region / Unknown 01/18/2025 3:01 PM EDT 01/18/2025 3:28 PM EDT us Sachin Garza MD LAB BODY FLUIDS AND STOOLS O RDERABLES Final Result Performing Organization Address City/[facility]/ZIP Co de Phone Number [facility] [address] [place] [address] * (ABNORMAL) Body Fluid Cell Count w/ Diff (01/18/2025 3:01 PM EDT) Color, Body fluid Red LAB HEMATOLOGY METHOD 01/18/2025 11:05 PM EDT [facility] Appearance, Body fluid Cloudy(A) LAB HEMATOLOGY METHOD 01/18/2025 11:05 PM EDT [facility] Volume, Body fluid 3.5 cc LAB HEMATOLOGY METHOD 01/18/2025 11:05 PM EDT [facility] Fluid Container Specimen received in EDTA tube LAB HEMATOLOGY METHOD 01/18/2025 11:05 PM EDT [facility] Red Blood Cell Count, Body fluid 299,000 uL LAB HEMATOLOGY METHOD 01/18/2025 11:05 PM EDT [facility] Total Nucleated Cell Count, Body fluid 873 uL LAB HEMATOLOGY METHOD 01/18/2025 11:05 PM EDT [facility] Neutrophils %, Body fluid 17 % LAB HEMATOLOGY METHOD 01/18/2025 11:05 PM EDT [facility] Lymphocytes %, Body fluid 55 % LAB HEMATOLOGY METHOD 01/18/2025 11:05 PM EDT [facility] Monocytes/Macro phages %, Body fluid 27 % LAB HEMATOLOGY METHOD 01/18/2025 11:05 PM EDT [facility] Eosinophils %, Body fluid 1 % LAB HEMATOLOGY METHOD 01/18/2025 11:05 PM EDT [facility] Lining/Mesothel ial Cells %, Body fluid 0 % LAB HEMATOLOGY METHOD 01/18/2025 11:05 PM EDT [facility] Neutrophils Absolute (PMN), Body fluid 148 uL LAB HEMATOLOGY METHOD 01/18/2025 11:05 PM EDT [facility] Lymphocytes Absolute, Body fluid 480 uL LAB HEMATOLOGY METHOD 01/18/2025 11:05 PM EDT [facility] Monocytes/Macro phages Absolute, Body fluid 236 uL LAB HEMATOLOGY METHOD 01/18/2025 11:05 PM EDT [facility] Eosinophils Absolute, Body fluid 9 uL LAB HEMATOLOGY METHOD 01/18/2025 11:05 PM EDT [facility] Basophils Absolute, Body fluid 0 uL LAB HEMATOLOGY METHOD 01/18/2025 11:05 PM EDT [facility] Lining/Mesothel ial Cells Absolute, Body fluid 0 uL LAB HEMATOLOGY METHOD 01/18/2025 11:05 PM EDT [facility] Comment, Body fluid None LAB HEMATOLOGY METHOD 01/18/2025 11:05 PM EDT [facility] Comment:This is an appended report. These results have been appended to a previously preliminary verified report. Basophils %, Body fluid 0 % LAB HEMATOLOGY METHOD 01/18/2025 11:05 PM EDT [facility] Joint Fluid Structure of left knee region / Unknown 01/18/2025 3:01 PM EDT 01/18/2025 3:28 PM EDT us Sachin Garza MD LAB BODY FLUIDS AND STOOLS ORDERABLES NO SPECIMEN TYPE/SOURCE Final Result Performing Organization Address [facility] Co de Phone Number [facility] [address] [place] [address] * Body Fluid Culture and Gram Stain (01/18/2025 12:17 PM EDT) Culture No growth at day 4 2024 11:06 AM EDT [facility] Gram Stain Result No polymorphonuclear leukocytes seen 01/21/2025 11:06 AM EDT [facility] Gram Stain Result No organisms seen 01/21/2025 11:06 AM EDT [facility] Joint Fluid Synovial fluid specimen / Unknown Non-blood Collection / Unknown 01/18/2025 12:17 PM EDT 01/18/2025 3:24 PM EDT Comment:Pre-op diagnosis: Cellulitis of left lower extremity [L03.116] us Dwaine Das DO LAB MICROBIOLOGY - GENERAL ORDERABLES Final Result [facility] [address] [place] [address] * Joint Infection Panel by PCR (01/18/2025 12:17 PM EDT) Anaerococcus prevotii/vaginalis PCR Result Not Detected Not Detected 01/18/2025 5:28 PM EDT [facility] Clostridium perfringens PCR Result Not Detected Not Detected 01/18/2025 5:28 PM EDT [facility] Cutibacterium avidum/granulosum PCR Result Not Detected Not Detected 01/18/2025 5:28 PM EDT [facility] Enterococcus faecalis PCR Result Not Detected Not Detected 01/18/2025 5:28 PM EDT [facility] Enterococcus faecium PCR Result Not Detected Not Detected 01/18/2025 5:28 PM EDT [facility] Finegoldia magna PCR Result Not Detected Not Detected 01/18/2025 5:28 PM EDT [facility] Parvimonas micra PCR Result Not Detected Not Detected 01/18/2025 5:28 PM EDT [facility] Peptoniphilus PCR Result Not Detected Not Detected 01/18/2025 5:28 PM EDT [facility] Peptostreptococcus anaerobius PCR Result Not Detected Not Detected 01/18/2025 5:28 PM EDT [facility] Staphylococcus aureus PCR Result Not Detected Not Detected 01/18/2025 5:28 PM EDT [facility] Staphylococcus lugdunensis PCR Result Not Detected Not Detected 01/18/2025 5:28 PM EDT [facility] Streptococcus spp PCR Result Not Detected Not Detected 01/18/2025 5:28 PM EDT [facility] Streptococcus agalactiae PCR Result Not Detected Not Detected 01/18/2025 5:28 PM EDT [facility] Streptococcus pneumoniae PCR Result Not Detected Not Detected 01/18/2025 5:28 PM EDT [facility] Streptococcus pyogenes PCR Result Not Detected Not Detected 01/18/2025 5:28 PM EDT [facility] Bacteroides fragilis PCR Result Not Detected Not Detected 01/18/2025 5:28 PM EDT [facility] Citrobacter PCR Result Not Detected Not Detected 01/18/2025 5:28 PM EDT [facility] Enterobacter cloacae complex PCR Result Not Detected Not Detected 01/18/2025 5:28 PM EDT [facility] Escherichia coli PCR Result Not Detected Not Detected 01/18/2025 5:28 PM EDT [facility] Haemophilus influenzae PCR Result Not Detected Not Detected 01/18/2025 5:28 PM EDT [facility] Kingella kingae PCR Result Not Detected Not Detected 01/18/2025 5:28 PM EDT [facility] Klebsiella aerogenes PCR Result Not Detected Not Detected 01/18/2025 5:28 PM EDT [facility] Klebsiella pneumoniae group PCR Result Not Detected Not Detected 01/18/2025 5:28 PM EDT [facility] Morganella morganii PCR Result Not Detected Not Detected 01/18/2025 5:28 PM EDT [facility] Neisseria gonorrhoeae PCR Result Not Detected Not Detected 01/18/2025 5:28 PM EDT [facility] Proteus spp PCR Result Not Detected Not Detected 01/18/2025 5:28 PM EDT [facility] Pseudomonas aeruginosa PCR Result Not Detected Not Detected 01/18/2025 5:28 PM EDT [facility] Salmonella spp PCR Result Not Detected Not Detected 01/18/2025 5:28 PM EDT [facility] Serratia marcescens PCR Result Not Detected Not Detected 01/18/2025 5:28 PM EDT [facility] Nelda PCR Result Not Detected Not Detected 01/18/2025 5:28 PM EDT [facility] Nelda albicans PCR Result Not Detected Not Detected 01/18/2025 5:28 PM EDT [facility] CTXM PCR Result Not Detected Not Detected 01/18/2025 5:28 PM EDT [facility] IMP PCR Result Not Detected Not Detected 01/18/2025 5:28 PM EDT [facility] KPC PCR Result Not Detected Not Detected 01/18/2025 5:28 PM EDT [facility] mecA/C and MREJ (MRSA) PCR Result Not Detected Not Detected 01/18/2025 5:28 PM EDT [facility] NDM PCR Result Not Detected Not Detected 01/18/2025 5:28 PM EDT [facility] OXA-48-like PCR Result Not Detected Not Detected 01/18/2025 5:28 PM EDT [facility] Jarret/B PCR Result Not Detected Not Detected 01/18/2025 5:28 PM EDT [facility] VIM PCR Result Not Detected Not Detected 01/18/2025 5:28 PM EDT [facility] Joint Fluid Synovial fluid specimen / Unknown Non-blood Collection / Unknown 01/18/2025 12:17 PM EDT 01/18/2025 3:24 PM EDT Narrative [facility] - 01/18/2025 5:28 PM EDT [...] for the determination of susceptibility or resistance. Sachin Garza MD LAB MICROBIOLOGY - GENERAL O RDERABLES Final Result [facility] [address] [place] [address] * (ABNORMAL) Tissue Culture and Gram Stain (01/18/2025 10:00 AM EDT) Culture Heavy Growth 01/20/2025 8:34 AM EDT [facility] Culture Methicillin-Resista nt Staphylococcus aureus(AA) JOVANI 01/20/2025 8:34 AM EDT [facility] Comment: The organism value for this result has been updated. These results have been appended to the previously preliminary verified report. Edited result: Previously reported as Staphylococcus aureus on 01/19/2025 at 0914 EDT. Staphylococcus aureus has been updated to reportable. Gram Stain Result Numerous Polymorphonuclear leukocytes(A) 01/20/2025 8:34 AM EDT [facility] Gram Stain Result Rare Gram positive cocci in clusters(A) 01/20/2025 8:34 AM EDT [facility] Tissue Topography unknown / Unknown [...] Staphylococcus aureus Vancomycin JOVANI 1 ug/ml: Susceptible [facility] LAB MICROBIOLOGY - GENERAL ORDERABLES Final Result [facility] [address] [place] [address] * Anaerobic Culture (01/18/2025 10:00 AM EDT) Culture No anaerobes isolated 01/23/2025 7:50 AM EDT [facility] Tissue Topography unknown / Unknown 01/18/2025 10:00 AM EDT 01/18/2025 3:26 PM EDT Comment:Pre-op diagnosis: Cellulitis of left lower extremity [L03.116] us Dwaine Das DO LAB MICROBIOLOGY - GENERAL ORDERABLES Final Result Performing Organization Address [facility] Co de Phone Number [facility] [address] [place] [address] * Body fluid, cytospin, pathologist interpretation (01/18/2025 9:57 AM EDT) Specimen Type Cyst Fluid LAB HEMATOLOGY METHOD 01/20/2025 4:28 PM EDT [facility] Specimen Source, Body Fluid Other (specify site) LAB HEMATOLOGY METHOD 01/20/2025 4:28 PM EDT [facility] Clinical Diagnosis, Body Fluid Left lower extremity cyst fluid LAB HEMATOLOGY METHOD 01/20/2025 4:28 PM EDT [facility] Interpretation , Body Fluid No evidence of malignancy Bloody specimen Acute inflammatory cells Correlation with microbiology studies recommended A resident was involved in the service. I attest I examined the relevant preparations for the specimens and confirmed the diagnosis or interpretation. 01/20/2025 4:28 PM EDT [facility] Pathologist Signature, Body Fluid 01/20/2025 4:28 PM EDT [facility] Comment:Reviewed by: Stephanie conti MD LAB CP ASR DISCLAIMER Yes 01/20/2025 4:28 PM EDT [facility] Cyst Fluid Topography unknown / Unknown 01/18/2025 9:57 AM EDT 01/18/2025 3:19 PM EDT us Dwaine Das DO LAB BODY FLUIDS AND STOOLS ORDERABLES Final Result Performing Organization Address City/[facility]/ZIP Co de Phone Number [facility] [address] [place] [address] * (ABNORMAL) Body Fluid Cell Count w/ Diff (01/18/2025 9:57 AM EDT) Color, Body fluid Red LAB HEMATOLOGY METHOD 01/18/2025 7:13 PM EDT [facility] Appearance, Body fluid Cloudy(A) LAB HEMATOLOGY METHOD 01/18/2025 7:13 PM EDT [facility] Volume, Body fluid 10.0 cc LAB HEMATOLOGY METHOD 01/18/2025 7:13 PM EDT [facility] Fluid Container Specimen received in miscellaneous container LAB HEMATOLOGY METHOD 01/18/2025 7:13 PM EDT [facility] Red Blood Cell Count, Body fluid 240,000 uL LAB HEMATOLOGY METHOD 01/18/2025 7:13 PM EDT [facility] Comment:Clot present, may af fect results. Test performed by manual method. Total Nucleated Cell Count, Body fluid 83,500 uL LAB HEMATOLOGY METHOD 01/18/2025 7:13 PM EDT [facility] Comment:Clot present, may af fect results. Test performed by manual method. Neutrophils %, Body fluid 98 % LAB HEMATOLOGY METHOD 01/18/2025 7:13 PM EDT [facility] Lymphocytes %, Body fluid 2 % LAB HEMATOLOGY METHOD 01/18/2025 7:13 PM EDT [facility] Monocytes/Macr ophages %, Body fluid 0 % LAB HEMATOLOGY METHOD 01/18/2025 7:13 PM EDT [facility] Eosinophils %, Body fluid 0 % LAB HEMATOLOGY METHOD 01/18/2025 7:13 PM EDT [facility] Lining/Mesothe lial Cells %, Body fluid 0 % LAB HEMATOLOGY METHOD 01/18/2025 7:13 PM EDT [facility] Neutrophils Absolute (PMN), Body fluid 81,830 uL LAB HEMATOLOGY METHOD 01/18/2025 7:13 PM EDT [facility] Lymphocytes Absolute, Body fluid 1,670 uL LAB HEMATOLOGY METHOD 01/18/2025 7:13 PM EDT [facility] Monocytes/Macr ophages Absolute, Body fluid 0 uL LAB HEMATOLOGY METHOD 01/18/2025 7:13 PM EDT [facility] Eosinophils Absolute, Body fluid 0 uL LAB HEMATOLOGY METHOD 01/18/2025 7:13 PM EDT [facility] Basophils Absolute, Body fluid 0 uL LAB HEMATOLOGY METHOD 01/18/2025 7:13 PM EDT [facility] Lining/Mesothe lial Cells Absolute, Body fluid 0 uL LAB HEMATOLOGY METHOD 01/18/2025 7:13 PM EDT [facility] Comment, Body fluid Bacteria seen. LAB HEMATOLOGY METHOD 01/18/2025 7:13 PM EDT [facility] Basophils %, Body fluid 0 % LAB HEMATOLOGY METHOD 01/18/2025 7:13 PM EDT [facility] Cyst Fluid Topography unknown / Unknown 01/18/2025 9:57 AM EDT 01/18/2025 3:19 PM EDT Comment:Pre-op diagnosis: Cellulitis of left lower extremity [L03.116] Dwaine Crow LAB BODY FLUIDS AND STOOLS ORDERABLES NO SPECIMEN TYPE/SOURCE Final Result Performing Organization Address City/[facility]/ZIP Co de Phone Number [facility] [address] [place] [address] * (ABNORMAL) Body Fluid Culture and Gram Stain (01/18/2025 9:57 AM EDT) Culture Heavy Growth 01/20/2025 8:34 AM EDT [facility] Culture Methicillin-Resista nt Staphylococcus aureus(AA) 01/20/2025 8:34 AM EDT [facility] Comment: For susceptibility results refer to: - [id number] The organism value for this result has been updated. These results have been appended to the previously preliminary verified report. Edited result: Previously reported as Staphylococcus aureus on 01/19/2025 at 0916 EDT. Staphylococcus aureus has been updated to reportable. Gram Stain Result Numerous Polymorphonuclear leukocytes(A) 01/20/2025 8:34 AM EDT [facility] Gram Stain Result Moderate Gram positive cocci in clusters(A) 01/20/2025 8:34 AM EDT [facility] Cyst Fluid Topography unknown / Unknown 01/18/2025 9:57 AM EDT 01/18/2025 3:26 PM EDT Comment:Pre-op diagnosis: Cellulitis of left lower extremity [L03.116] Dwaine Das DO LAB MICROBIOLOGY - GENERAL ORDERABLES Final Result Performing Organization Address City/[facility]/ZIP Co de Phone Number [facility] [address] [place] [address] * Anaerobic Culture (01/18/2025 9:57 AM EDT) Culture No anaerobes isolated 01/23/2025 7:50 AM EDT [facility] Cyst Fluid Topography unknown / Unknown 01/18/2025 9:57 AM EDT 01/18/2025 3:26 PM EDT Comment:Pre-op diagnosis: Cellulitis of left lower extremity [L03.116] Dwaine Das DO LAB MICROBIOLOGY - GENERAL ORDERABLES Final Result Performing Organization Address [facility] Co de Phone Number [facility] [address] [place] [address] * Methicillin Resistant Staphylococcus aureus (MRSA) by PCR (01/18/2025 7:43 AM EDT) [facility] Methicillin Resistant Staphylococcus aureus (MRSA) by PCR Not Detected Not Detected 01/18/2025 9:36 AM EDT [facility] Swab Both anterior nares / Unknown Non-blood Collection / Unknown 01/18/2025 7:43 AM EDT 01/18/2025 8:19 AM EDT Narrative [facility] - 01/18/2025 9:36 AM EDT [...] O RDERABLES Final Result Performing Organization Address [facility] de Phone Number [facility] [address] [place] [address] * (ABNORMAL) Basic metabolic panel (01/18/2025 12:18 AM EDT) [facility] Glucose, Plasma 105(H) 74 - 99 mg/dL 01/18/2025 1:30 AM EDT [facility] BUN, Plasma 14 7 - 21 mg/dL 01/18/2025 1:30 AM EDT [facility] Creatinine, Plasma 0.80 0.70 - 1.20 mg/dL 01/18/2025 1:30 AM EDT [facility] BUN/Creatinine Ratio 18 01/18/2025 1:30 AM EDT [facility] Sodium, Plasma 137 136 - 145 mmol/L 01/18/2025 1:30 AM EDT [facility] Potassium, Plasma 4.3 3.6 - 4.9 mmol/L 01/18/2025 1:30 AM EDT [facility] Chloride, Plasma 100 97 - 107 mmol/L 01/18/2025 1:30 AM EDT [facility] CO2, Plasma 26 22 - 29 mmol/L 01/18/2025 1:30 AM EDT [facility] Anion Gap 11 6 - 16 mmol/L 01/18/2025 1:30 AM EDT [facility] Total Calcium, Plasma 9.0 8.9 - 10.2 mg/dL 01/18/2025 1:30 AM EDT [facility] eGFRcr 118.4 mL/min/1.7 3m*2 01/18/2025 1:30 AM EDT [facility] Comment:Reported eGFRcr in m L/min/1.73m2 is based the CKD-EPI 2020 equation that does not use a race coefficient. Blood Venous blood specimen / Unknown Venipuncture / Unknown 01/18/2025 12:18 AM EDT 01/18/2025 12:27 AM EDT us Sachin Garza MD LAB BLOOD ORDERABLES Final R esult [facility] [address] [place] [address] * (ABNORMAL) CBC W/O Differential (01/18/2025 12:18 AM EDT) WBC Count 8.77 3.70 - 10.30 10*3/uL LAB HEMATOLOGY METHOD 01/18/2025 12:36 AM EDT [facility] RBC Count 3.94(L) 4.60 - 6.10 10*6/uL LAB HEMATOLOGY METHOD 01/18/2025 12:36 AM EDT [facility] HGB 11.7(L) 13.7 - 17.5 g/dL LAB HEMATOLOGY METHOD 01/18/2025 12:36 AM EDT [facility] HCT 37.1(L) 40.0 - 51.0 % LAB HEMATOLOGY METHOD 01/18/2025 12:36 AM EDT [facility] Platelet Count 347 155 - 369 10*3/uL LAB HEMATOLOGY METHOD 01/18/2025 12:36 AM EDT [facility] MCV 94 79 - 98 fL LAB HEMATOLOGY METHOD 01/18/2025 12:36 AM EDT [facility] MCH 29.7 26.0 - 32.0 pg LAB HEMATOLOGY METHOD 01/18/2025 12:36 AM EDT [facility] MCHC 31.5 30.7 - 35.5 g/dL LAB HEMATOLOGY METHOD 01/18/2025 12:36 AM EDT [facility] RDW 13.1 11.5 - 14.5 % LAB HEMATOLOGY METHOD 01/18/2025 12:36 AM EDT [facility] MPV 9.5 8.8 - 12.5 fL LAB HEMATOLOGY METHOD 01/18/2025 12:36 AM EDT [facility] nRBC 0.0 <=0.0 per 100 WBCs LAB HEMATOLOGY METHOD 01/18/2025 12:36 AM EDT [facility] Blood Venous blood specimen / Unknown Venipuncture / Unknown 01/18/2025 12:18 AM EDT 01/18/2025 12:29 AM EDT us Sachin Garza MD LAB BLOOD ORDERABLES Final R esult [facility] [address] [place] [address] * Vancomycin, Peak, Plasma Please draw ~2 hours after 1000 dose of vancomycin on Monday finishes infusing. Consider obtaining level via peripheral stick. If peripheral stick is not feasible, please ensure that line is flushed well prior to drawing l... (01/17/2025 2:03 PM EDT) Vancomycin, Peak, Plasma 22.0 20.0 - 40.0 ug/mL 01/17/2025 3:01 PM EDT [facility] Blood Venous blood specimen / Unknown Venipuncture / Unknown 01/17/2025 2:03 PM EDT 01/17/2025 2:32 PM EDT Narrative [facility] - 01/17/2025 3:01 PM EDT Therapeutic Peak level: 20-40ug/mL Supra-therapeutic Peak level: >40 ug/mL Sachin Garza MD LAB BLOOD ORDERABLES Final R esult Performing Organization Address [facility] Co de Phone Number [facility] [address] [place] [address] * Vancomycin, Trough, Plasma Please draw ~30 minutes prior to dose due at 1000 on Monday. Please do NOT hold dose awaiting level to return. Consider obtaining level via peripheral stick. If peripheral stick is not feasible, please ensure that line ... (01/17/2025 9:53 AM EDT) Vancomycin, Trough, Plasma 12.5 10.0 - 20.0 ug/mL 01/17/2025 10:24 AM EDT [facility] Blood Venous blood specimen / Unknown Venipuncture / Unknown 01/17/2025 9:53 AM EDT 01/17/2025 9:57 AM EDT Narrative [facility] - 01/17/2025 10:24 AM EDT Therapeutic Trough level: 10-20ug/mL Supra-therapeutic Trough level: >20 ug/mL Sachin Garza MD LAB BLOOD ORDERABLES Final R esult Performing Organization Address [facility] Co de Phone Number [facility] [address] [place] [address] * (ABNORMAL) Basic metabolic panel (01/17/2025 4:05 AM EDT) Glucose, Plasma 117(H) 74 - 99 mg/dL 01/17/2025 5:16 AM EDT [facility] BUN, Plasma 13 7 - 21 mg/dL 01/17/2025 5:16 AM EDT [facility] Creatinine, Plasma 0.75 0.70 - 1.20 mg/dL 01/17/2025 5:16 AM EDT [facility] BUN/Creatinine Ratio 17 01/17/2025 5:16 AM EDT [facility] Sodium, Plasma 135(L) 136 - 145 mmol/L 01/17/2025 5:16 AM EDT [facility] Potassium, Plasma 4.5 3.6 - 4.9 mmol/L 01/17/2025 5:16 AM EDT [facility] Chloride, Plasma 100 97 - 107 mmol/L 01/17/2025 5:16 AM EDT [facility] CO2, Plasma 25 22 - 29 mmol/L 01/17/2025 5:16 AM EDT [facility] Anion Gap 10 6 - 16 mmol/L 01/17/2025 5:16 AM EDT [facility] Total Calcium, Plasma 9.1 8.9 - 10.2 mg/dL 01/17/2025 5:16 AM EDT [facility] eGFRcr 120.7 mL/min/1.7 3m*2 01/17/2025 5:16 AM EDT [facility] Comment:Reported eGFRcr in m L/min/1.73m2 is based the CKD-EPI 2020 equation that does not use a race coefficient. Blood Venous blood specimen / Unknown Venipuncture / Unknown 01/17/2025 4:05 AM EDT 01/17/2025 4:35 AM EDT us Sachin Garza MD LAB BLOOD ORDERABLES Final R esult [facility] [address] [place] [address] * [place] Extremity Limited MSK or Soft [...] - 99 mg/dL 01/16/2025 5:15 AM EDT [facility] BUN, Plasma 12 7 - 21 mg/dL 01/16/2025 5:15 AM EDT [facility] Creatinine, Plasma 0.66(L) 0.70 - 1.20 mg/dL 01/16/2025 5:15 AM EDT [facility] BUN/Creatinine Ratio 18 01/16/2025 5:15 AM EDT [facility] Sodium, Plasma 136 136 - 145 mmol/L 01/16/2025 5:15 AM EDT [facility] Potassium, Plasma 4.5 3.6 - 4.9 mmol/L 01/16/2025 5:15 AM EDT [facility] Chloride, Plasma 100 97 - 107 mmol/L 01/16/2025 5:15 AM EDT [facility] CO2, Plasma 26 22 - 29 mmol/L 01/16/2025 5:15 AM EDT [facility] Anion Gap 10 6 - 16 mmol/L 01/16/2025 5:15 AM EDT [facility] Total Calcium, Plasma 8.8(L) 8.9 - 10.2 mg/dL 01/16/2025 5:15 AM EDT [facility] eGFRcr 125.4 mL/min/1.7 3m*2 01/16/2025 5:15 AM EDT [facility] Comment:Reported eGFRcr in m L/min/1.73m2 is based the CKD-EPI 2020 equation that does not use a race coefficient. Blood Venous blood specimen / Unknown Venipuncture / Unknown 01/16/2025 4:31 AM EDT 01/16/2025 4:46 AM EDT us Jeffrey Matute MD LAB BLOOD ORDERABLES Final Re sult [facility] [address] [place] [address] * Prothrombin Time/INR (01/16/2025 4:31 AM EDT) Prothrombin Time 12.9 12.0 - 14.3 sec 01/16/2025 4:46 AM EDT [facility] INR 1.0 0.9 - 1.1 01/16/2025 4:46 AM EDT [facility] Blood Venous blood specimen / Unknown Venipuncture / Unknown 01/16/2025 4:31 AM EDT 01/16/2025 4:33 AM EDT Narrative [facility] - 01/16/2025 4:46 AM EDT OPTIMAL INR RANGES FOR PATIENT ON ORAL ANTICOAGULANT THERAPY Prevention of venous thromboembolism INR 2.0 to 3.0 In patients with heart disease: Atrial fibrillation INR 2.0 to 3.0 Valvular heart disease INR 2.0 to 3.0 Tissue heart valves INR 2.0 to 3.0 Mechanical prosthetic valves INR 2.5 to 3.5 Prevention of recurrent NH INR 2.5 to 3.5 us Jeffrey Matute MD LAB BLOOD ORDERABLES Final Re sult [facility] [address] [place] [address] * (ABNORMAL) CBC W/O Differential (01/16/2025 4:31 AM EDT) WBC Count 17.78(H) 3.70 - 10.30 10*3/uL LAB HEMATOLOGY METHOD 01/16/2025 4:36 AM EDT [facility] RBC Count 4.14(L) 4.60 - 6.10 10*6/uL LAB HEMATOLOGY METHOD 01/16/2025 4:36 AM EDT [facility] HGB 12.4(L) 13.7 - 17.5 g/dL LAB HEMATOLOGY METHOD 01/16/2025 4:36 AM EDT [facility] HCT 37.6(L) 40.0 - 51.0 % LAB HEMATOLOGY METHOD 01/16/2025 4:36 AM EDT [facility] Platelet Count 359 155 - 369 10*3/uL LAB HEMATOLOGY METHOD 01/16/2025 4:36 AM EDT [facility] MCV 91 79 - 98 fL LAB HEMATOLOGY METHOD 01/16/2025 4:36 AM EDT [facility] MCH 30.0 26.0 - 32.0 pg LAB HEMATOLOGY METHOD 01/16/2025 4:36 AM EDT [facility] MCHC 33.0 30.7 - 35.5 g/dL LAB HEMATOLOGY METHOD 01/16/2025 4:36 AM EDT [facility] RDW 13.2 11.5 - 14.5 % LAB HEMATOLOGY METHOD 01/16/2025 4:36 AM EDT [facility] MPV 9.3 8.8 - 12.5 fL LAB HEMATOLOGY METHOD 01/16/2025 4:36 AM EDT [facility] nRBC 0.0 <=0.0 per 100 WBCs LAB HEMATOLOGY METHOD 01/16/2025 4:36 AM EDT [facility] Blood Venous blood specimen / Unknown Venipuncture / Unknown 01/16/2025 4:31 AM EDT 01/16/2025 4:33 AM EDT us Jeffrey Matute MD LAB BLOOD ORDERABLES Final Re sult [facility] [address] [place] [address] * CT Tibia Fibula Left w IV [...] at day 5 01/21/2025 2:02 AM EDT [facility] Blood Venous blood specimen / Unknown Venipuncture / Unknown 01/16/2025 12:24 AM EDT 01/16/2025 1:12 AM EDT Narrative [facility] - 01/21/2025 2:02 AM EDT Low blood volume submitted, results may be compromised Gus Vigil [employer]IST LAB MICROBIOLOGY - GENER AL ORDERABLES Final Result [facility] [address] [place] [address] * XR Chest 1 View (01/15/2025 11:21 [...] MD on 01/15/2025 11:40 PM Gus Vigil [employer] SPECIALIST IMG XR PROCEDURES Final Result * XR [...] MD on 01/15/2025 11:40 PM Gus Vigil [employer] COMM[employer]ICATION[employer] SPECIALIST IMG XR PROCEDURES Final Result * Type [...] ORDERA BLES Final Result BLOOD BANK [address] [place] [address], * ECG Adult (01/15/2025 10:46 PM EDT) EKG DIAGNOSIS CLASS Normal MUSE ECG Ventricular Rate 92 BPM MUSE ECG Atrial Rate 92 BPM MUSE ECG [place] Interval 122 ms MUSE ECG QRSD Interval 102 ms MUSE ECG QT Interval 350 ms MUSE ECG QTC Interval 432 ms MUSE ECG P [place] 56 degrees MUSE ECG R [place] 44 degrees MUSE ECG T Wave [place] 57 degrees MUSE ECG Diagnosis Normal sinus [...] at day 5 01/20/2025 11:01 PM EDT [facility] Blood Structure of antecubital vein / Unknown Venipuncture / Unknown 01/15/2025 10:11 PM EDT 01/15/2025 10:19 PM EDT Narrative [facility] - 01/20/2025 11:01 PM EDT Low blood volume submitted, results may be compromised Gus Vigil APRN LAB MICROBIOLOGY - GENER AL ORDERABLES Final Result Performing Organization Address [facility]/ZIP Co de Phone Number [facility] [address] [place] [address] * (ABNORMAL) Sed rate, automated (01/15/2025 10:11 PM EDT) Pathologist [facility] Sedimentation Rate 46(H) <15 mm/hr 2024 10:34 PM EDT [facility] Blood Venous blood specimen / Unknown Venipuncture / Unknown 01/15/2025 10:11 PM EDT 01/15/2025 10:12 PM EDT [facility] LAB BLOOD ORDERABLES Fin al Result Performing Organization Address City/[facility]/ZIP Co de Phone Number [facility] [address] [place] [address] * (ABNORMAL) C-Reactive protein (01/15/2025 10:11 PM EDT) CRP, Plasma 91.9(H) <=8.0 mg/L 01/15/2025 10:32 PM EDT [facility] Blood Venous blood specimen / Unknown Venipuncture / Unknown 01/15/2025 10:11 PM EDT 01/15/2025 10:12 PM EDT Narrative [facility] - 01/15/2025 10:32 PM EDT This CRP test is appropriate for assessment of infection, systemic inflammation and/or tissue injury. To assess cardiovascular disease risk order high sensitivity CRP (CRPH). Gus Vigil APRN LAB BLOOD ORDERABLES Fin al Result [facility] [address] [place] [address] * (ABNORMAL) Blood gas panel, venous (01/15/2025 10:11 PM EDT) pH, Venous 7.39 7.32 - 7.43 LAB HEMATOLOGY METHOD 01/15/2025 10:14 PM EDT [facility] pCO2, Venous 47 40 - 55 mmHg LAB HEMATOLOGY METHOD 01/15/2025 10:14 PM EDT [facility] pO2, Venous 34 25 - 40 mmHg LAB HEMATOLOGY METHOD 01/15/2025 10:14 PM EDT [facility] SO2, Measured, Venous 68 65 - 80 % LAB HEMATOLOGY METHOD 01/15/2025 10:14 PM EDT [facility] Base Excess, Venous 2.8 -2.0 - 3.0 mmol/L LAB HEMATOLOGY METHOD 01/15/2025 10:14 PM EDT [facility] Bicarbonate, Calculated, Venous 29(H) 22 - 26 mmol/L LAB HEMATOLOGY METHOD 01/15/2025 10:14 PM EDT [facility] Hematocrit, Whole Blood 40.4 40.0 - 51.0 % LAB HEMATOLOGY METHOD 01/15/2025 10:14 PM EDT [facility] Sodium, Whole Blood 135(L) 136 - 145 mmol/L LAB HEMATOLOGY METHOD 01/15/2025 10:14 PM EDT [facility] Potassium, Whole Blood 4.3 3.6 - 4.9 mmol/L LAB HEMATOLOGY METHOD 01/15/2025 10:14 PM EDT [facility] Chloride, Whole Blood 99 97 - 107 mmol/L LAB HEMATOLOGY METHOD 01/15/2025 10:14 PM EDT [facility] Glucose, Whole Blood 110(H) 74 - 99 mg/dL LAB HEMATOLOGY METHOD 01/15/2025 10:14 PM EDT [facility] Lactate, Venous, Whole Blood 1.1 0.5 - 2.2 mmol/L LAB HEMATOLOGY METHOD 01/15/2025 10:14 PM EDT [facility] Ionized Calcium, Whole Blood 4.6 4.6 - 5.1 mg/dL LAB HEMATOLOGY METHOD 01/15/2025 10:14 PM EDT [facility] Blood Venous blood specimen / Unknown Venipuncture / Unknown 01/15/2025 10:11 PM EDT 01/15/2025 10:12 PM EDT Gus Vigil [employer] SPECIALIST LAB BLOOD ORDERABLES Fin al Result [facility] [address] [place] [address] * (ABNORMAL) CMP (01/15/2025 10:11 PM EDT) Glucose, Plasma 116(H) 74 - 99 mg/dL 01/15/2025 10:32 PM EDT [facility] BUN, Plasma 14 7 - 21 mg/dL 01/15/2025 10:32 PM EDT [facility] Creatinine, Plasma 0.78 0.70 - 1.20 mg/dL 01/15/2025 10:32 PM EDT [facility] BUN/Creatinine Ratio 18 01/15/2025 10:32 PM EDT [facility] Sodium, Plasma 134(L) 136 - 145 mmol/L 01/15/2025 10:32 PM EDT [facility] Potassium, Plasma 4.6 3.6 - 4.9 mmol/L 01/15/2025 10:32 PM EDT [facility] Chloride, Plasma 97 97 - 107 mmol/L 01/15/2025 10:32 PM EDT [facility] CO2, Plasma 24 22 - 29 mmol/L 01/15/2025 10:32 PM EDT [facility] Anion Gap 13 6 - 16 mmol/L 01/15/2025 10:32 PM EDT [facility] Total Calcium, Plasma 8.7(L) 8.9 - 10.2 mg/dL 01/15/2025 10:32 PM EDT [facility] Total Protein 6.5 6.3 - 7.9 g/dL 01/15/2025 10:32 PM EDT [facility] Albumin, Plasma 3.7 3.5 - 5.2 g/dL 01/15/2025 10:32 PM EDT [facility] AST, Plasma 23 10 - 50 U/L 01/15/2025 10:32 PM EDT [facility] ALT, Plasma 52(H) 10 - 50 U/L 01/15/2025 10:32 PM EDT [facility] Alkaline Phosphatase, Plasma 124(H) 40 - 115 U/L 01/15/2025 10:32 PM EDT [facility] Total Bilirubin, Plasma 0.3 0.2 - 1.1 mg/dL 01/15/2025 10:32 PM EDT [facility] eGFRcr 119.3 mL/min/1.7 3m*2 01/15/2025 10:32 PM EDT [facility] Comment:Reported eGFRcr in m L/min/1.73m2 is based the CKD-EPI 2020 equation that does not use a race coefficient. Blood Venous blood specimen / Unknown Venipuncture / Unknown 01/15/2025 10:11 PM EDT 01/15/2025 10:12 PM EDT Gus Vigil [employer] SPECIALIST LAB BLOOD ORDERABLES Fin al Result [facility] [address] [place] [address] * PT-INR (01/15/2025 10:11 PM EDT) Prothrombin Time 12.5 12.0 - 14.3 sec 01/15/2025 10:28 PM EDT [facility] INR 1.0 0.9 - 1.1 01/15/2025 10:28 PM EDT [facility] Blood Venous blood specimen / Unknown Venipuncture / Unknown 01/15/2025 10:11 PM EDT 01/15/2025 10:12 PM EDT Narrative [facility] - 01/15/2025 10:28 PM EDT OPTIMAL INR RANGES FOR PATIENT ON ORAL ANTICOAGULANT THERAPY Prevention of venous thromboembolism INR 2.0 to 3.0 In patients with heart disease: Atrial fibrillation INR 2.0 to 3.0 Valvular heart disease INR 2.0 to 3.0 Tissue heart valves INR 2.0 to 3.0 Mechanical prosthetic valves INR 2.5 to 3.5 Prevention of recurrent NH INR 2.5 to 3.5 Gus Vigil APRN LAB BLOOD ORDERABLES Fin al Result [facility] [address] [place] [address] * (ABNORMAL) CBC w/diff (01/15/2025 10:11 PM EDT) WBC Count 19.24(H) 3.70 - 10.30 10*3/uL LAB HEMATOLOGY METHOD 01/15/2025 10:14 PM EDT [facility] RBC Count 4.33(L) 4.60 - 6.10 10*6/uL LAB HEMATOLOGY METHOD 01/15/2025 10:14 PM EDT [facility] HGB 13.0(L) 13.7 - 17.5 g/dL LAB HEMATOLOGY METHOD 01/15/2025 10:14 PM EDT [facility] HCT 39.3(L) 40.0 - 51.0 % LAB HEMATOLOGY METHOD 01/15/2025 10:14 PM EDT [facility] Platelet Count 383(H) 155 - 369 10*3/uL LAB HEMATOLOGY METHOD 01/15/2025 10:14 PM EDT [facility] MCV 91 79 - 98 fL LAB HEMATOLOGY METHOD 01/15/2025 10:14 PM EDT [facility] MCH 30.0 26.0 - 32.0 pg LAB HEMATOLOGY METHOD 01/15/2025 10:14 PM EDT [facility] MCHC 33.1 30.7 - 35.5 g/dL LAB HEMATOLOGY METHOD 01/15/2025 10:14 PM EDT [facility] RDW 13.2 11.5 - 14.5 % LAB HEMATOLOGY METHOD 01/15/2025 10:14 PM EDT [facility] MPV 9.2 8.8 - 12.5 fL LAB HEMATOLOGY METHOD 01/15/2025 10:14 PM EDT [facility] nRBC 0.0 <=0.0 per 100 WBCs LAB HEMATOLOGY METHOD 01/15/2025 10:14 PM EDT [facility] Differential Type Automated LAB HEMATOLOGY METHOD 01/15/2025 10:14 PM EDT [facility] Neutrophils % 78 % LAB HEMATOLOGY METHOD 01/15/2025 10:14 PM EDT [facility] Lymphocytes % 12 % LAB HEMATOLOGY METHOD 01/15/2025 10:14 PM EDT [facility] Monocytes % 8 % LAB HEMATOLOGY METHOD 01/15/2025 10:14 PM EDT [facility] Eosinophils % 1 % LAB HEMATOLOGY METHOD 01/15/2025 10:14 PM EDT [facility] Basophils % 0 % LAB HEMATOLOGY METHOD 01/15/2025 10:14 PM EDT [facility] Immature Granulocytes % 1 % LAB HEMATOLOGY METHOD 01/15/2025 10:14 PM EDT [facility] Neutrophils Absolute 15.11(H) 1.60 - 6.10 10*3/uL LAB HEMATOLOGY METHOD 01/15/2025 10:14 PM EDT [facility] Lymphocytes Absolute 2.34 1.20 - 3.90 10*3/uL LAB HEMATOLOGY METHOD 01/15/2025 10:14 PM EDT [facility] Monocytes Absolute 1.46(H) 0.30 - 0.90 10*3/uL LAB HEMATOLOGY METHOD 01/15/2025 10:14 PM EDT [facility] Eosinophils Absolute 0.13 0.00 - 0.50 10*3/uL LAB HEMATOLOGY METHOD 01/15/2025 10:14 PM EDT [facility] Basophils Absolute 0.06 0.00 - 0.10 10*3/uL LAB HEMATOLOGY METHOD 01/15/2025 10:14 PM EDT [facility] Immature Granulocytes Absolute 0.14(H) 0.00 - 0.06 10*3/uL LAB HEMATOLOGY METHOD 01/15/2025 10:14 PM EDT [facility] Blood Venous blood specimen / Unknown Venipuncture / Unknown 01/15/2025 10:11 PM EDT 01/15/2025 10:12 PM EDT Narrative [facility] - 01/15/2025 10:14 PM EDT Therapeutic decision making should be based on absolute values, rather than percentages. Gus Vigil APRN LAB BLOOD ORDERABLES Fin al Result [facility] [address] [place] [address] documented in this encounter Visit Diagnoses Diagnosis Cellulitis of leg, left- Primary Sepsis following procedure, initial encounter ([facility]) Cellulitis of left lower extremity Acute postoperative pain Other acute postoperative pain Closed fracture of left tibial plateau with routine healing, subsequent encounter Cellulitis of leg, left Cellulitis of left lower extremity Sepsis following procedure ([facility]) Closed fracture of left tibial plateau documented in this encounter Admitting Diagnoses Diagnosis Cellulitis of leg, left Cellulitis of left lower extremity Sepsis following procedure ([facility]) Closed fracture of left tibial plateau documented [...] 0.25 mg, Intravenous, Once, 1 dose, On Sneha 01/16/25 at 0445, STAT Given 01/16/2025 4:52 AM [...] Once in imaging, 1 dose, Starting on Sneha 01/16/25 at 0102, Until Sneha 01/16/25 at 0103, Routine, Imaging Protocol Orders Given 01/16/2025 1:03 AM EDT 100 mL lactated Ringer's infusion 75 mL/hr, Intravenous, Continuous, Starting on Sneha 01/16/25 at 0755, Until Mon01/17/25 at 0606, Routine [...] on Mon01/16/25 at 0755, Until Discontinued, Routine Given 01/22/2025 [...] Intravenous, Every 12 hours, First dose on Mon01/18/25 at 0930, Until Discontinued, Routine, Holding - [...] Provider: Automatic Transfer Provider)1853 (Given - Provider: Aelm Witt RN) 0021 (Given - Provider: Taryn Miranda RN)0617 (Given - Provider: Taryn Miranda RN)1221 (Given - Provider: Katailna Martinez, SHEREEN)1709 (Not Given - Provider: Katalina [...] 1011 (New Bag - Provider: Katalina Martinez, RN) enoxaparin (Lovenox) syringe 60 mg 60 mg, [...] Katalina Martinez, SHEREEN)2106 (Given - Provider: Taryn Miranda, SHEREEN) 0848 (Given - Provider: Leigh Rg, SHEREEN) mupirocin (Bactroban) 2 % ointment 1 Application Each Nostril, 2 times daily, 10 doses, First dose on Mon01/20/25 at 0945, Last dose on Mon01/24/25 at 2100, Routine 0924 (OCT Hold - Provider: Automatic Transfer Provider - Reason: Patient in procedure)0945 (Dose Auto Held - Provider: Automatic Transfer Provider)1217 (OCT Unhold - Provider: Automatic Transfer Provider)2002 (Given - Provider: Taryn Miranda RN) 900 (Given - Provider: Katalina Martinez, SHEREEN)2107 (Given - Provider: Taryn Miranda RN) 0847 (Given - Provider: Leigh Rg, SHEREEN) nicotine (Nicoderm CQ) 21 MG/24HR patch 1 patch 1 patch, Transdermal, Daily, First dose on Mon01/17/25 at 1215, Until Discontinued, Routine 0924 (OCT Hold - Provider: Automatic Transfer Provider - Reason: Patient in procedure)1217 (OCT Unhold - Provider: Automatic Transfer Provider)1603 (Medication Applied - Provider: Alem Witt RN - Comment: left shoulder) 0901 (Medication Applied - Provider: Katalina Martinez, SHEREEN) 0847 (Medication Applied - Provider: Leigh Rg RN) piperacillin-tazobact am (Zosyn) 4.5 g in sodium chloride 0.9% 100 mL IVPB (vial adapter required) (CANCELED) 4.5 g, Intravenous, Every 6 hours, First dose on Sneha 01/16/25 at 1300, Until Discontinued, Routine 0004 (New [...] Sneha 01/16/25 at 0900, Until Discontinued, Routine 0819 (Not Given - Provider: Alem Witt RN - Reason: Hold for condition: must add comment - Comment: patient had multiple bowel movements yesterday)09 (OCT Hold - Provider: Automatic Transfer Provider [...] procedure)1217 (OCT Unhold - Provider: Automatic Transfer Provider)2000 (Not Given - Provider: Taryn Miranda RN - Reason: Patient/family refused) 2124 (Not Given - Provider: Taryn Miranda RN - Reason: Patient/family refused) sodium chloride 0.9 % flush 10 mL(Linked Group 2) 10 mL, Intravenous, Every 12 hours, First dose on Sneha 01/16/25 at 0755, Until Discontinued, Routine 0650 (Given - Provider: Taryn Miranda RN)0924 (OCT Hold - Provider: Automatic Transfer Provider - Reason: Patient in procedure)121 (OCT Unhold - Provider: Automatic Transfer Provider)192 (Given - Provider: Taryn Miranda RN) 0650 (Given - Provider: Taryn Miranda RN)2125 (Given - Provider: Taryn Miranda RN) 0620 [...] hours and no response to magnesium hydroxide 09 (OCT Hold - Provider: Automatic Transfer Provider - Reason: Patient in procedure)1216 (OCT Unhold - Provider: Automatic Transfer Provider) HYDROmorphone (Dilaudid) injection 0.5 mg (CANCELED) 0.5 mg, Intravenous, Every 10 min PRN, 2 doses, Starting on Mon01/20/25 at 1047, Until Mon01/20/25 at 1217, Routine, Recovery (Phase I only), pain score of 9-10 out of 10 1136 (Given - Provider: Nanda Salas RN) ibuprofen tablet 400 mg 400 mg, Oral, Every 4 hours PRN, Starting on Sneha 01/16/25 at 0753, Until Mon01/22/25 at 1922, Routine, mild pain 0411 (Given - Provider: Taryn Miranda RN)0924 (OCT Hold - Provider: Automatic Transfer Provider - Reason: Patient in procedure)121 (OCT Unhold - Provider: Automatic Transfer Provider)1630 (Not Given - Provider: Alem Witt RN - Reason: Patient/family refused)2002 (Given - Provider: Taryn Miranda, RN) 431 (Given - Provider: Taryn Miranda, RN)2107 (Given - Provider: Taryn Miranda, RN) magnesium hydroxide (Milk of Magnesia) 400 MG/5ML suspension 30 mL 30 mL, Oral, Daily PRN, Starting on Sneha 01/16/25 at 0750, Until Mon01/22/25 at 1922, Routine, constipation, if no bowel movement for 48 hours 0924 ([facility] Hold - Provider: Automatic Transfer Provider - Reason: Patient in procedure)1216 ([facility] Unhold - Provider: Automatic Transfer Provider) naloxone (Narcan) injection 0.08 mg 0.08 mg, Intravenous, As needed, Starting on Sneha 01/16/25 at 0753, Until Mon01/22/25 at 1922, Routine, respiratory depression, every 2 minutes 0924 ([facility] Hold - Provider: Automatic Transfer Provider - Reason: Patient in procedure)1216 ([facility] Unhold - Provider: Automatic Transfer Provider) ondansetron (Zofran) injection 4 mg (COMPLETED) 4 mg, Intravenous, Once as needed, 1 dose, Starting on 01/20/25 at 1047, Until Mon01/20/25 at 1142, Routine, Recovery (Phase I only), nausea, vomiting 1142 (Given - Provider: Nanda Salas, RN) ondansetron ODT (Zofran-ODT) disintegrating tablet 4 mg 4 mg, Oral, Every 6 hours PRN, Starting on Sneha 01/16/25 at 0753, Until Mon01/22/25 at 1922, Routine, nausea, vomiting 0924 ([facility] Hold - Provider: Automatic Transfer Provider - Reason: Patient in procedure)121 ([facility] Unhold - Provider: Automatic Transfer Provider) oxyCODONE (Roxicodone) immediate release tablet 10 mg (CANCELED)(Linked Group 3) 10 mg, Oral, Once as needed, 2 doses, Starting on 01/20/25 at 1047, Until 01/20/25 at 1217, Routine, Recovery (Phase I only), pain score of 6-8 out of 10 1136 (Given - Provider: Nanda Salas RN) oxyCODONE (Roxicodone) immediate release tablet 5 [...] Oral, Every 6 hours PRN, Starting on e 01/21/25 at 0847, Until Mon01/22/25 at 1922, [...] documented as of this encounter Care Teams Larriman Helper Relationship Specialty Start Date End Date Renetta Pardo APRN [address] [place] [address] [address] [place] [address] PCP - General 09/09/23 documented as of this encounter
--- OUTSIDE RECORDS SUMMARY | 2025-01-18 09:01 | XMS_ITS | Encounter Summary ---
Author Organization Healthcare Address [address] [place] [address] Care Team Providers Care Skeet Operator Name Role Phone Renetta Pardo APRN Primary Care Provider [phone] Reason for Visit * Reason Comments Post-op Problem * Auth/Cert (Routine) Specialty Diagnoses / Procedures Referred By Adalid t Referred To Contact Diagnoses Acute postoperative pain Cellulitis of leg, left Cellulitis of left lower extremity Sepsis following procedure, initial encounter ([facility]) recent LLE surgery @ now with cellulitis Sachin Garza MD [address] [address] Phone: tel: fax: PAV H Inpatient [address] [place] [address] Phone: tel: Referral ID Status Reason Start Date Expiration Date Visits Re quested Visits Authorized [id number] 1 1 Encounter Details Date Type Department Care Team (Late st Contact Info) Description 01/18/2025 9:01 AM EDT - 01/18/2025 11:06 AM EDT Surgery PAV A OPERATING ROOM [address] [place] [address] Ye Navarro MD [id number] [place] [address] INCISION AND DRAINAGE, LOWER EXTREMITY [...] in the past 12 m [facility], were you homeless or [...] drink first t traci in the morning (EYE-CRIMINAL LEGAL ASSISTANT) to steady your nerves or to get rid of a hangover? 0 09/10/2023 CAGE Questionnaire Score 0 024 Utilities Answer Date Recorded In the past 12 months has th e [employer], gas, oil, or water company threatened to [...] the video go to this web address: https://[email or web address] Or, scan this QR code with your smart phone ?? [facility] * Rosaura Chirinosr, Leigh Ybarra RN - 01/22/2025 4:21 PM EDT Images from the original note were not included. 39246 Flushing Your PICC Line at Home Your [...] soap and water, use an alcohol-based hand convex grinder operator. The gel should have at least [...] PICC. Last Reviewed Date: 2024 00:00:00 ?? 9593-4189 [employer]. All rights reserved. This information is not intended as a substitute for professional medical care. Always follow your healthcare professional's instructions. * [facility] Leigh Rg RN - 01/22/2025 4:21 PM EDT Images from the original note were not included. [id number] Discharge Instructions: Changing the Dressing on Your [...] damage Last Reviewed Date: 2024 00:00:00 ?? 5786-6247 [employer]. All rights reserved. This information is not [...] the video go to this web address: [email or web address] Or, scan this QR code with your smart phone ?? [facility] * Leigh Muller RN - 01/22/2025 4:20 PM EDT Images from the original note were not included. 76332 Understanding Post Sepsis Syndrome (PSS) Sepsis is [...] infections Last Reviewed Date: 2022 00:00:00 ?? 6963-5813 [employer]. All rights reserved. This information is not intended as a substitute for professional medical care. Always follow your healthcare professional's instructions. * [facility] - Leigh Rg RN - 01/22/2025 4:20 PM EDT Images from the original note were not included. [id number] Buckle (Torus) Fracture of a Leg Your [...] wet, you can dry it with a hair colorist on the cool setting. ? Put an [...] doctor Last Reviewed Date: 2024 00:00:00 ?? 2915-9038 [employer]. All rights reserved. This information is not intended as a substitute for professional medical care. Always follow your healthcare professional's instructions. * Rosaura Eason - Leigh Rg RN - 01/22/2025 4:20 PM EDT Images from the original note were not included. 76608 Discharge Instructions for Cellulitis You have been [...] are in pain. Ask what kind of kgqx-gme-cvqwgml medicine you can take for pain. ? [...] Vomiting. Last Reviewed Date: 2024 00:00:00 ?? 3658-8523 [employer]. All rights reserved. This information is not intended as a substitute for professional medical care. Always follow your healthcare professional's instructions. * Discharge Summary - Mauricio Mondragon MD - 01/22/2025 4:16 PM EDT Hospitalization Admit Date/Time: 01/15/2025 9:32 PM Admitting Attending: Sachin Garza Discharge Date: 01/22/25 Discharge Attending Physician: Sachin Garza MD PCP name and Address: Renetta Pardo, CLOTHING ROOM SUPERVISOR [address] [place] [address] [address] / [facility] [address] Referring provider name and address: Maldonado Luciano PA [address] [place] [address] [place] [address] Chief Concern, Brief History of Present Illness, and Hospital Course Patient arrived to [facility] on 01/15/25 with concern for [...] medications were sent to [facility] -[place], [place] - [address], [facility] [address] DAPTOmycin injection These medications were sent to [facility] - [place], [place] - [address] [facility] [address] oxyCODONE 5 MG immediate release capsule Discharge Diagnosis Medical Problems Active and Resolved Hospital Problems Hospital Closed fracture of left tibial plateau Overview Addendum 09/16/2023 1:42 PM by Rolanda Adams APRN, DNP ORT consulted TROM in place WB per ORT 09/15: ORIF L tibial plateau fx Follow up with Dr. Nava on 10/04 * (Principal) Cellulitis of leg, left Sepsis following procedure ([facility]) Cellulitis of left lower extremity [...] Time Provider Department Center 01/27/2025 11:[address] [facility] ORTHOPAEDICS PHYSICAL OPTICS TEACHER [facility] 02/03/2025 8:10 AM Lawrence Hayes MD [facility] 02/11/2025 1:00 PM Ary Santiago [...] General: Spoke with: Patient, Family, and Bedside ross carrier driver and Interventions: Assessed: Dressing Dressing Interventions: CDI [...] please contact the Orthopedic Transition Nurse at [phone] Monday through Monday 8:00 am to 2:30 pm. If you feel your concern is a medical emergency please call 911 immediately * Progress Notes - Anna Elam RN - 01/22/2025 9:28 AM EDT Case Management Discharge Note Ravin Ribeiro 34 y.o. male CSN: [id number] Admission: 01/15/2025 9:32 PM Primary Problem: Cellulitis of leg, left Primary Senior Accounting Clerk: Primary Caregiver: Self Assistance Available at Discharge: Current Outpatient/Agency/Support Group: DME Availability of Care Givers (#Hours): 24 hours Family/Senior Accounting Clerk(s) Willingness Assessed to care for patient at home: Yes Family/Senior Accounting Clerk(s) Readiness Assessed to care for patient at [...] Community Agency(s): Patient's Choice of Community Agency(s): [facility] Patient/Family Anticipated Services at Transition: Patient/Family Anticipated Services at Transition: outpatient care DME/Equipment Needed after Discharge: Equipment Currently Used at Home: walker, rolling, commode chair, wheelchair, manual Equipment Needed After Discharge: walker, rolling, commode chair Readmission Within the Last 30 Days: Readmission Within the Last 30 Days: other (see comments) (cellulitis) Medicare Documentation: Medicare Second Notice?: No (pt has [place] medicaid) Follow-up: No follow-up provider specified. Discharge Transportation: Transportation Anticipated: family or friend will provide Transportation Home at Discharge: Family/Friend will Provide Has discharge transport been arranged?: No Follow Up Transport: Transportation Needed to Follow up Appoinments: Family/Friend will Provide Additional Comments: Per primary provider, pt is medically ready to discharge home with standard OPAT. PICC in place. Pt [facility] at [facility] for [facility] PICC care and labs. First appointment is scheduled for 01/27 at 11 AM. Pt's family will be able to provide assistance and transportation. [facility] will complete teaching today and deliver IV ABX to bedside around 3 PM. Pt and S/O is aware and agreeable to discharge POC. [facility] [phone] Anna Elam RN * Progress Notes - [...] required Ayden Canseco MD PGY-1, Orthopaedic Surgery [facility] Orthopaedic Trauma Service Pager: [phone] Orthopaedic Recon/Spine/Foot and Ankle Service Pager: [phone] Cosigned by Lawrence Hayes MD at 01/22/2025 [...] required Red Mondragon MD Orthopaedic Surgery PGY-1 [facility] Orthopaedic Trauma Service Pager: [phone] Orthopaedic Recon/Spine/Foot and Ankle Service Pager: [phone] Personal Pager: [phone] Cosigned by Lawrence Hayes MD at 01/22/2025 1:06 PM EDT * Procedures - Norma Miranda RN - 01/21/2025 7:01 PM EDTAssociated Order(s): Insert PICC line Insert PICC line Date/Time: 01/21/2025 7:01 PM Performed by: Norma Miranda RN Authorized by: Sachin Garza MD Asher Protocol: Verbal consent obtained?: Yes Written consent [...] preference Patient position: Supine Catheter Lot #: [id number] Catheter count team clerk: VeodiaC Solo Catheter placed: Single lumen Catheter size: 4 Fr Catheter trimmed length: 52 Catheter threaded length: 52 Vein placed in: SVC Catheter cm indwellin Catheter cm outside: 52 Placement confirmed by: Kevenhike 3CG technology Pre-procedure: Landmarks identified Ultrasound guidance: [...] 01/21/2025 3:28 PM EDT Referrals sent to [facility] and for for possible home IV antibiotic infusion. There was no accepting companies in patient's area. CM spoke with patient and he is agreeable to either go to his local hospital [facility] or come to [facility] in [place] for his weekly PICC care/labs if needed. * Nursing Note - Camden Vital RN - 01/21/2025 1:45 PM EDT Orthopedic Transition Nurse Note General: Spoke with: Patient, Family, and Bedside ross carrier driver and Interventions: Assessed: Dressing Dressing Interventions: CDI [...] please contact the Orthopedic Transition Nurse at [phone] Monday through Monday 8:00 am to 2:30 pm. If you feel your concern is a medical emergency please call 911 immediately * Steff Odell RN - 01/21/2025 11:57 AM EDT Images from the original note were not included. [id number] PICC Line Care PICC stands for peripherally [...] arm Last Reviewed Date: 2024 00:00:00 ?? 1182-5271 The [employer]. All rights reserved. This information is not intended as a substitute for professional medical care. Always follow your healthcare professional's instructions. * Steff Odell RN - 01/21/2025 11:56 AM EDT Images from the original note were not included. 73165 * Steff Odell RN - 01/21/2025 11:56 AM EDT Images from the original note were not included. 31836 * Steff Odell RN - 01/21/2025 11:56 [...] your house or a medical facility. The block and case maker/social work job titles will setthat up based on your insurance. [...] or during weekends/[place] holidays, call the paging tarring machine operator at . Ask for the infectious disease fellow hooker on. Call the clinic if you have any [...] from the original note were not included. 78357 Flushing Your PICC Line at Home Your [...] soap and water, use an alcohol-based hand convex grinder operator. The gel should have at least [...] PICC. Last Reviewed Date: 2024 00:00:00 ?? 6765-9674 The [employer]. All rights reserved. This information is not intended as a substitute for professional medical care. Always follow your healthcare professional's instructions. * Rosaura [facility] - Steff Paz RN - 01/21/2025 11:56 AM EDT Images from the original note were not included. [id number] Daptomycin Injection Brand Name(s): Cubicin??, Cubicin RF??; [...] to the Food and Drug Administration's (FDA) MedCausestch Adverse Event Reporting program online (https://www.fda.gov/Safety/MedWatch) or by phone ( ). What should I do in case of OVERDOSE? In case of overdose, call the poison control helpline at . Information is also available online at https://www.poisonhelp.org/help. If the victim has collapsed, had a seizure, has trouble breathing, or can't be awakened, immediately call emergency services at 582. What OTHER INFORMATION should I know? Keep [...] of all of the prescription and nonprescription (zktm-jda-nclmrbe) medicines you are taking, as well as [...] or pharmacist about specific clinical use. The [place] [employer] represents that the information provided hereunder was formulated with a reasonable standard of care, and in conformity with professional standards in the field. The [place] [employer] makes no representations or warranties, express or implied, including, but not limited to, any implied warranty of merchantability and/or fitness for a particular purpose, with respect to such information and specifically disclaims all such warranties. Users are advised that decisions regarding drug therapy are complex medical decisions requiring the independent, informed decision of an appropriate health home health care respiratory therapist, and the information is provided for informational purposes only. The entire monograph for a drug should be reviewed for a thorough understanding of the drug's actions, uses and side effects. The [place] [employer] does not endorse or recommend the use of any drug.The information is not a substitute for medical care. AHFS?? Patient Medication Information?. ?? Copyright, 2023. The [place] [employer]-System Pharmacists??, [address], [address], [place], [place]. All Rights Reserved. Duplication for commercial use must be authorized by [facility]. Selected Revisions: July 28, 2019. AHFS?? Patient Medication Information?. ?? Copyright, 2024 * Rosaura Eason - Steff Paz RN - 01/21/2025 11:56 AM EDT Images from the original note were not included. 07323 Discharge Instructions: Caring for Your Peripherally Inserted [...] damage. Last Reviewed Date: 2024 00:00:00 ?? 2251-0803 The [employer]. All rights reserved. This information is not intended as a substitute for professional medical care. Always follow your healthcare professional's instructions. * Rosaura [facility] - Steff Paz RN - 01/21/2025 11:56 AM EDT Images from the original note were not included. 91117 Central Line Infections You need a central [...] water. Or they use an alcohol-based hand convex grinder operator containing at least 60% alcohol. ? [...] (warm or cold), and use alcohol-based hand convex grinder operator with at least 60% alcohol as directed. To clean your hands well,follow the guidelines on this sheet. Visitors should wash their hands well when they arrive and when they leave. ? Make sure healthcare staff and your visitors clean their hands. They should use soap and clean, running water or an alcohol-based hand convex grinder operator before and after checking the line. [...] good choice for cleaning your hands. The convex grinder operator should have at least 60% alcohol. Note that some germs can't be killed by alcohol. Your healthcare team can answer any questions you have about when to use a hand convex grinder operator, or when it?s better to wash with soap and water. Follow these steps: ? Spread the hand convex grinder operator in the palm of one hand. (Check the package for specific guidelines.) ? Rub your hands together briskly. Clean the backs of your hands, the palms, between your fingers, and up your wrists. ? Rub until the convex grinder operator is gone and your hands are [...] skin Last Reviewed Date: 2023 00:00:00 ?? 4606-7069 The [employer]. All rights reserved. This information is not [...] Single Lumen PICC Patient Specific Outpatient Circumstances: [address] [place] [address] Family Support: Extended Emergency Contact Information Primary Emergency Contact: Hayley Buenrostro Address: [address] [place] [address] Mobile Relation: Significant Other Preferred language: [place] Game Moderator needed? No Secondary Emergency Contact: Jenny Buenrostro Address: [address] [place] [address] Mobile Relation: Mother Contact information: Ravin Ribeiro [phone] (home) Outpatient services (including home infusion, home health, facility referral: See recent [place] case management/social work note for finalization of services ID follow up appointment: Future Appointments Date Time Provider Department Center 02/03/2025 8:10 AM Lawrence Hayes MD [facility] 02/11/2025 1:00 PM Ary Santiago [...] via secure chat or staff messaging in VenueSpot. Patient and family will need to be [...] days prior to presentation. He presented to [facility] wherehe was febrile to 101.3F. [...] PA-C Division of Infectious Diseases Available on VenueSpot Chat History, assessment, and plan discussed with [...] labs to: ID OPAT Team Fax #: [phone] Appointments: Ary Santiago APRN on 02/11 at 1PM and 03/03 at 1PM [facility]: [address] [place] [address] (Select Option 3 for IV Antibiotic / PICC line related issues) For questions regarding OPAT prior to discharge, reach out to the OPAT team via VenueSpot Secure Chat (Group: OPAT Referral Team). For all questions regarding OPAT after discharge should be directed to the OPAT Team at (Select Option 3 for IV Antibiotics/PICC Issues) between 8am-5pm. After 5 pm, or during weekends/[place] holidays, please call the paging tarring machine operator at to reach the on-call [...] at 01/18/25 1133 [2] Allergies Allergen Reactions Norton Hives * Consults - Delma Ortiz - 01/21/2025 10:00 AM EDT Pastoral Care Note: Patient was appreciative of development rep's visit and expressed gratitude to the care team. he said family is on their way to him. Referral From: Director Of Investigations Initiated Pastoral Care Provided For: Patient Patient Profile: Spiritual Assessment: Support Systems/ Spiritual Resources: Treasure, Sense of Peace, Trust, Gratitude Spiritual Needs: Emotional support, Spiritual ritual Spiritual Issues: Discharge Interventions: Pastoral Care Outcomes: Patient Outcomes: Appreciative of Director Of Investigations Support, Expresses acceptance, Gratitude Cosigned by Macrina Dumont at 01/21/2025 6:24 PM EDT Associated attestation - Macrina Dumont - 01/21/2025 6:24 PM EDT This is to attest development rep summer intern chart note has been reviewed and [...] ambulate in room/hallway with family and staff rn while remains inpatient. Patient demonstrates no [...] Prevent or Manage Infection Flowsheets (Taken 01/20/2025 4575) Infection Management: aseptic technique maintained Fever Reduction/Comfort [...] Agree with above assessment and evaluation from resident/PROCESS SAFETY ENGINEERING TECHNOLOGIST. * Progress Notes - Anna Elam RN - 01/20/2025 10:48 AM EDT Case Management Adult Progress Note Ravin Ribeiro 34 y.o. male CSN: [id number] Admission: 01/15/2025 9:32 PM Primary Problem: Cellulitis of leg, left Anticipated Discharge Date: TBD Pt to OR today for repeat I&D on left knee. Pt has worsening NORMAN and team wants to repeat AM labs. Final ID recs and OPAT eval are pending. [facility]erral [facility] and HH today. Pt's medicaid may be a potential barrier to HH. CM will continue to assist with discharge POC. Anna Elam RN * Op Note - Bob Nava MD - 01/20/2025 10:26 AM EDT Operative Note Date: 01/20/25 Location: [facility] OR Name: Ravin Ribeiro, : 1990, Diagnoses: Pre-op Diagnosis Closed fracture of left tibial plateau with routine healing, subsequent encounter Left proximal tibia (knee region) deep abscess Post-op Diagnosis Closed fracture of left tibial plateau with routine healing, subsequent encounter Left proximal tibia (knee region) deep abscess Procedure(s): Incision and drainage of left knee deep abscess Attending Surgeon(s): * Bob Nava - Primary Computator(s): * Emely Giron MD - Resident - [...] days prior to presentation. He presented to [facility] wherehe was febrile to 101.3F. [...] PA-C Division of Infectious Diseases Available on VenueSpot Chat History, assessment, and plan discussed with [...] mg 60 mg Subcutaneous BID Gustavo Hightower MD60 mg at 01/19/252000 [Transfer Hold] ibuprofen tablet [...] Gustavo Hightower MD [2] Allergies Allergen Reactions Norton Hives * Consults - Ricco Howard RN [...] required Ayden Canseco MD PGY-1, Orthopaedic Surgery [facility] Orthopaedic Trauma Service Pager: [phone] Orthopaedic Recon/Spine/Foot and Ankle Service Pager: [phone] Cosigned by Sachin Garza MD at 01/20/2025 [...] Course 1. Sepsis following procedure, initial encounter ([facility]) 2. Cellulitis of left lower [...] admission Level of Mobility: Ambulatory- community Mobility [place]: Independent gait without device (intermittne use of [...] Mobility Bed Mobility Exam: Scooting/Bridging Level of [place]: Independent Bed Mobility Exam: Supine to Sit Level of [place]: Independent Transfers Transfer Exam: Sit to stand Level of [place]: Stand-by assist Physical/Nonphysical Assist: Verbal Cues Assistive Device: Walker, rolling Transfer Exam: Stand to Sit Level of [place]: Stand-by assist Physical/Nonphysical Assist: Verbal Cues Assistive Device: Walker, rolling Toilet Transfer Level of [place]: Stand-by assist Physical/Nonphysical Assist: Verbal Cues Type of Transfer: Ambulation, To toilet Assistive Device: Walker, rolling, Grab bar Functional Mobility Device: Rolling walker Assistance: Standby assist <Household distance, cuing for safety, pacing activity, RW management, and encouraged L LE WBAT-as permitted per chart (pt reports being used to NWB for pain management MOPHEAD SEWER) Balance Postural Appearance Posture: Within Functional Limits [...] admission Level of Mobility: Ambulatory- community Mobility [place]: Independent gait without device (intermittne use of [...] Mobility Bed Mobility Exam: Scooting/Bridging Level of [place]: Independent Bed Mobility Exam: Supine to Sit Level of [place]: Independent Transfers Transfer Exam: Sit to stand Level of [place]: Stand-by assist Physical/Nonphysical Assist: Verbal Cues Assistive Device: Walker, rolling Transfer Exam: Stand to Sit Level of [place]: Stand-by assist Physical/Nonphysical Assist: Verbal Cues Assistive [...] 3-5 steps with a railing?: A little [facility] 6-Clicks Mobility Assessment Total : 23 No [...] required Red Mondragon MD Orthopaedic Surgery PGY-1 [facility] Orthopaedic Trauma Service Pager: [phone] Orthopaedic Recon/Spine/Foot and Ankle Service Pager: [phone] Personal Pager: [phone] Cosigned by Ye Navarro MD at 01/21/2025 [...] Attending Surgeon(s): * Ye Navarro - Primary Computator(s): * Harvey Swift MD - Resident - [...] Suhail Dueñas MD * Progress Notes - eJannette Daly, PharmD - 01/17/2025 3:07 PM EDT 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 ross carrier driver and Interventions: Assessed: Wound 01/01/25 Surgical Open Surgical Incision Pretibial Left;Proximal (Active) Wound Assessment Red 01/15/25 2150 Margins Well-defined edges;Attached edges 01/15/252149 Janeth-Wound Assessment Red 01/15/25 2150 Closure Orange 01/15/252149 Wound 01/01/25 Face Left;Upper (Active) Education: Education provided on: Pain protocol/management Plan of Care: Follow up with TBD. Op-Plan: Awaiting to see how patient responds to IV abx. Contact Card Given: no Comments: Team is waiting to see if patient improves on IV abx. Awaiting ID recs. For medical questions or concerns after discharge, please contact the Orthopedic Transition Nurse at [phone] Monday through Monday 8:00 am to 2:30 [...] ] Family [ ] Friend [ ] Game Moderator [X] Medical records HISTORY OF PRESENT ILLNESS: [...] medial pretibial incision so he presented to [facility] for evaluation. He was febrile [...] on day of presentation. He lives in [place] with his , CONSTANZA, and 2 young [...] days prior to presentation. He presented to [facility] wherehe was febrile to 101.3F. [...] PA-C Division of Infectious Diseases Available on VenueSpot Chat History, assessment, and plan discussed with ID attending, Dr. Azucena Collado The following complex inpatient infectious disease services were performed today: Complex antimicrobial therapy counseling and treatment [1] History reviewed. No pertinent past medical history. [2] Past Surgical History: Procedure Laterality Date LEG SURGERY Left [3] Allergies Allergen Reactions Norton Hives [4] Current Facility-Administered Medications Medication Dose [...] Note Ravin Ribeiro 34 y.o. male CSN: [id number] Admission: 01/15/2025 9:32 PM Primary Problem: Cellulitis of leg, left Transcription Typist reviewed chart and spoke with patient to complete this Initial Case Management Assessment. PCP: Renetta Pardo APRN Emergency Contact: Extended Emergency Contact Information Primary Emergency Contact: Hayley Buenrostro Address: [address] [place] [address] Mobile Relation: Significant Other Preferred language: [place] Game Moderator needed? No Secondary Emergency Contact: Jenny Buenrostro Address: [address] [place] [address] Mobile Relation: Mother Insurance: Primary Visit Coverage Payer Plan Sponsor Code Group Number Group Name PAS[employer]ORT MEDICAID MOLINA PAS[employer]ORT MOLINA MEDICAID Primary Visit Coverage Subscriber Subscriber ID Subscriber Name Subscriber N Subscriber Address [id number] RAVIN RIBEIRO [id number] [place] [address] Patient information: Primary Caregiver: Self Support System: Immediate family Daily Living Activities: Functional Status: Independent Living Arrangements: Spouse/Significant other, Family Type of Residence: Private residence, Single Level [address] [place] [address] Current DME: Equipment Currently Used at Home: [...] Outpatient Dialysis Services: Living Will/Advance Directive/Power of Heel Packer /Guardian: Have you reviewed your Advance Directive [...] Pt states he lives at home in [place] with his , MIL, and two small 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 Mitch Giron MD PGY-3, Orthopaedic Surgery [facility] Orthopaedic Trauma Service Pager: [phone] Orthopaedic Recon/Spine/Foot and Ankle Service Pager: [phone] Cosigned by Sachin Garza MD at 01/18/2025 [...] your wound. Based upon recent changes to [place] law related to prescribing opioid pain medications, [...] please contact the Orthopedic Transition Nurse at [phone] Monday through Monday 8:00 am to 2:30 [...] examinations Tabitha Howard MD PGY-2, Orthopaedic Surgery [facility] Cosigned by Sachin Garza MD [...] fracture WRadha Howard MD PGY-2, Orthopaedic Surgery [facility] Orthopaedic Trauma Service Pager: [phone] Orthopaedic Recon/Spine/Foot and Ankle Service Pager: [phone] [1] History reviewed. No pertinent past medical [...] 25 tablet 0 [4] Allergies Allergen Reactions Norton Hives Cosigned by Sachin Garza MD at [...] 01/16/25 0657 Sepsis following procedure, initial encounter ([facility]) Cellulitis of left lower extremity [...] diagnosis was Sepsis following procedure, initial encounter ([facility]). Diagnoses of Cellulitis of left [...] Drug use: Never [5] Allergies Allergen Reactions Norton Hives Gus Vigil APRN 01/16/25 0657 Cosigned [...] a medial rim enhancing fluid collection concerning forabscess. Administered 2nd round of antibiotics Zosyn and [...] 01/16/25 0733 Sepsis following procedure, initial encounter ([facility]) Cellulitis of left lower extremity Acute postoperative pain Ultimately, this patient Was admitted (Admission) The primary encounter diagnosis was Sepsis following procedure, initial encounter ([facility]). Diagnoses of Cellulitis of left [...] Description 02/11/2025 1:00 PM EDT Office Visit [facility] [address] [place] [address] Ary Santiago, CLOTHING ROOM SUPERVISOR [address] [facility] [address] [place] [phone] 02/17/2025 8:40 AM EDT Appointment [facility] Radiology [address] [place] [address] 02/17/2025 9:20 AM EDT Office Visit [facility] Orthopaedic Surgery & Sports Medicine [address] [place] [address] Lawrence Hayes MD [address] [place] [address] 03/03/2025 1:00 PM EDT Office Visit [facility] [address] [place] [id number] Ary Santiago, CLOTHING ROOM SUPERVISOR [address] [facility] [address] [place] [address] Pending Results Name Type Priority Associated Diagnoses [...] (ABNORMAL) C-reactive protein (01/22/2025 5:04 AM EDT) [facility] CRP, Plasma 44.4(H) <=8.0 mg/L 01/22/2025 [...] ORDERABLES Final Res ult Performing Organization Address City/[facility]/ZIP Co de Phone Number [facility] [address] [place] [address] * Lavender Top (01/22/2025 5:04 AM EDT) Extra Hold for add-ons 01/22/2025 8:02 AM EDT [facility] Comment:Auto resulted. Blood Venous blood specimen / Unknown 01/22/2025 5:04 AM EDT 01/22/2025 5:30 AM EDT us Sachin Garza MD LAB BLOOD ORDERABLES Final R esult Performing Organization Address [facility] Co de Phone Number [facility] [address] [place] [address] * (ABNORMAL) Basic metabolic panel (01/22/2025 5:04 [...] [facility] [address] [place] [address] * (ABNORMAL) CBC (01/21/2025 7:29 PM EDT) [...] [facility] [address] [place] [address] * (ABNORMAL) Basic metabolic panel (01/21/2025 7:29 [...] [facility] [address] [place] [address] * PICC SINGLE LUMEN (SMARTFORM LINK) (01/21/2025 7:01 PM EDT) Narrative Norma Miranda RN - 01/21/2025 7:01 PM EDT Norma Miranda RN 01/21/2025 7:19 PM Insert PICC line Date/Time: 01/21/2025 7:01 PM Performed by: Norma Miranda RN Authorized by: Sachin Garza MD Asher Protocol: Verbal consent obtained?: Yes Written consent [...] preference Patient position: Supine Catheter Lot #: [id number] Catheter count team clerk: [email or web address] Solo Catheter placed: Single lumen Catheter size: [...] tibial plateau with routine healing, subsequent encounter [J70.474D] Bob Nava MD LAB MICROBIOLOGY - GENERAL O RDERABLES Final Result [facility] [address] [place] [address] * Fungal Culture, Routine (01/20/2025 10:42 AM [...] O RDERABLES Final Result Performing Organization Address [facility] Co de Phone Number [facility] [address] [place] [address] * Anaerobic Culture (01/20/2025 10:42 AM EDT) [...] O RDERABLES Final Result Performing Organization Address City/[facility] Co de Phone Number [facility] [address] [place] [address] * Tissue Culture and Gram Stain (01/20/2025 [...] [facility] [address] [place] [address] * Anaerobic Culture (01/20/2025 10:30 AM EDT) [...] O RDERABLES Final Result Performing Organization Address City/[facility] Co de Phone Number [facility] [address] [place] [address] * Tissue Culture and Gram Stain (01/20/2025 [...] O RDERABLES Final Result Performing Organization Address City/[facility]/ZIP Co de Phone Number [facility] [address] [place] [address] * Anaerobic Culture (01/20/2025 10:27 AM EDT) Culture No growth at day 4 01/28/2025 7:09 AM EDT [facility] Tissue Structure of left knee region / Unknown 01/20/2025 10:27 AM EDT 01/20/2025 11:24 AM EDT Comment:Pre-op diagnosis: Closed fracture of left tibial plateau with routine healing, subsequent encounter [S82.142D] us Bob Nava MD LAB MICROBIOLOGY - GENERAL O RDERABLES Final Result Performing Organization Address City/[facility]/[place] [address] * (ABNORMAL) Creatine Kinase (CK), Total (01/20/2025 3:40 AM EDT) Creatine Kinase, Plasma 18(L) 49 - 320 U/L 01/21/2025 12:17 PM EDT [facility] Blood Venous blood specimen / Unknown Venipuncture / Unknown 01/20/2025 3:40 AM EDT 01/20/2025 3:57 AM EDT Sachin Garza MD LAB BLOOD ORDERABLES Final R esult Performing Organization Address City/[facility]/[place] [address] * Vancomycin, random (01/20/2025 3:40 AM EDT) Vancomycin, Random, Plasma 20.1 ug/mL 01/20/2025 4:51 AM EDT [facility] Blood Venous blood specimen / Unknown Venipuncture / Unknown 01/20/2025 3:40 AM EDT 01/20/2025 3:57 AM EDT us Sachin Garza MD LAB BLOOD ORDERABLES Final R esult [facility] [address] [place] [address] * Protime-INR (01/20/2025 3:40 AM EDT) Prothrombin [...] INR 2.5 to 3.5 Prevention of recurrent LA INR 2.5 to 3.5 us Sachin Garza MD LAB BLOOD ORDERABLES Final R esult [facility] [address] [place] [address] * (ABNORMAL) Basic metabolic panel (01/20/2025 3:40 [...] [facility] [address] [place] [address] * (ABNORMAL) CBC W/O Differential (01/20/2025 3:40 [...] [facility] [address] [place] [address] * Vancomycin, random (01/19/2025 11:48 AM EDT) Vancomycin, Random, Plasma 22.9 ug/mL 01/19/2025 1:05 PM EDT [facility] Blood Venous blood specimen / Unknown Venipuncture / Unknown 01/19/2025 11:48 AM EDT 01/19/2025 11:50 AM EDT us Sachin Garza MD LAB BLOOD ORDERABLES Final R esult [facility] [address] [place] [address] * (ABNORMAL) Basic Metabolic Panel, Plasma (01/18/2025 [...] [facility] [address] [place] [address] * (ABNORMAL) CBC W/O Differential (01/18/2025 11:54 [...] [facility] [address] [place] [address] * Anaerobic Culture (01/18/2025 3:28 PM EDT) Culture No anaerobes isolated 01/23/2025 7:50 AM EDT [facility] Joint Fluid Topography unknown / Unknown Non-blood Collection / Unknown 01/18/2025 3:28 PM EDT 01/18/2025 3:28 PM EDT us Sachin Garza MD LAB MICROBIOLOGY - GENERAL O RDERABLES Final Result Performing Organization Address City/[facility]/ZIP Co de Phone Number [facility] [address] [place] [address] * (ABNORMAL) Body Fluid Culture and Gram Stain (01/18/2025 3:28 PM EDT) Culture Heavy Growth 01/20/2025 8:34 AM EDT [facility] Culture Methicillin-Resista nt Staphylococcus aureus(AA) 01/20/2025 8:34 AM EDT [facility] Comment: For susceptibility results refer to: - [id number] The organism value for this result has [...] O RDERABLES Final Result Performing Organization Address City/[facility]/ZIP Co de Phone Number [facility] [address] [place] [address] * Body fluid, cytospin, pathologist interpretation (01/18/2025 [...] O RDERABLES Final Result Performing Organization Address City/[facility]/ZIP Co de Phone Number [facility] [address] [place] [address] * Joint Fluid Crystals (01/18/2025 3:01 PM EDT) Crystals, Joint Fluid No Crystals Seen No Crystals Present 01/18/2025 5:28 PM EDT [facility] Joint Fluid Structure of left knee region / Unknown 01/18/2025 3:01 PM EDT 01/18/2025 3:28 PM EDT us Sachin Garza MD LAB BODY FLUIDS AND STOOLS O RDERABLES Final Result Performing Organization Address City/[facility]/ZIP Co de Phone Number [facility] [address] [place] [address] * (ABNORMAL) Body Fluid Cell Count w/ [...] [facility] Lymphocytes Absolute, Body fluid 480 uL [...] [facility] Comment, Body fluid None LAB HEMATOLOGY [...] SPECIMEN TYPE/SOURCE Final Result Performing Organization Address [facility]/ZIP Co de Phone Number [facility] [address] [place] [address] * Body Fluid Culture and Gram Stain [...] GENERAL ORDERABLES Final Result Performing Organization Address City/[facility]/ZIP Co de Phone Number [facility] [address] [place] [address] * Joint Infection Panel by PCR (01/18/2025 [...] 12:17 PM EDT 01/18/2025 3:24 PM EDT [facility] - 01/18/2025 5:28 PM EDT This [...] [facility] [address] [place] [address] * (ABNORMAL) Tissue Culture and Gram Stain [...] aureus Vancomycin JOVANI 1 ug/ml: Susceptible [facility] LAB MICROBIOLOGY - GENERAL ORDERABLES Final Result Performing Organization Address City/[facility] Co de Phone Number [facility] [address] [place] [address] * Anaerobic Culture (01/18/2025 10:00 AM EDT) Culture No anaerobes isolated 01/23/2025 7:50 AM EDT [facility] Tissue Topography unknown / Unknown 01/18/2025 10:00 AM EDT 01/18/2025 3:26 PM EDT Comment:Pre-op diagnosis: Cellulitis of left lower extremity [L03.116] [employer] LAB MICROBIOLOGY - GENERAL ORDERABLES Final Result Performing Organization Address City/[facility] Co de Phone Number [facility] [address] [place] [address] * Body fluid, cytospin, pathologist interpretation (01/18/2025 [...] [facility] [address] [place] [address] * (ABNORMAL) Body Fluid Cell Count w/ [...] SPECIMEN TYPE/SOURCE Final Result Performing Organization Address [facility] Co de Phone Number [facility] [address] [place] [address] * (ABNORMAL) Body Fluid Culture and Gram Stain (01/18/2025 9:57 AM EDT) Culture Heavy Growth 01/20/2025 8:34 AM EDT [facility] Culture Methicillin-Resista nt Staphylococcus aureus(AA) 01/20/2025 8:34 AM EDT [facility] Comment: For susceptibility results refer to: - [id number] The organism value for this result has [...] GENERAL ORDERABLES Final Result Performing Organization Address City/[facility]/ZIP Co de Phone Number [facility] [address] [place] [address] * Anaerobic Culture (01/18/2025 9:57 AM EDT) Culture No anaerobes isolated 01/23/2025 7:50 AM EDT [facility] Cyst Fluid Topography unknown / Unknown 01/18/2025 9:57 AM EDT 01/18/2025 3:26 PM EDT Comment:Pre-op diagnosis: Cellulitis of left lower extremity [L03.116] Dwaine Das DO LAB MICROBIOLOGY - GENERAL ORDERABLES Final Result Performing Organization Address [facility] Co de Phone Number [facility] [address] [place] [address] * Methicillin Resistant Staphylococcus aureus (MRSA) by [...] O RDERABLES Final Result Performing Organization Address [facility] de Phone Number [facility] [address] [place] [address] * (ABNORMAL) Basic metabolic panel (01/18/2025 12:18 AM EDT) Pathologist [facility] Glucose, Plasma 105(H) 74 - 99 mg/dL [...] [facility] [address] [place] [address] * (ABNORMAL) CBC W/O Differential (01/18/2025 12:18 [...] [facility] [address] [place] [address] * Vancomycin, Peak, Plasma Please draw ~2 hours after 1000 dose of vancomycin on Monday finishes infusing. Consider obtaining level via peripheral stick. If peripheral stick is not feasible, please ensure that line is flushed well prior to drawing l... (01/17/2025 2:03 PM EDT) Pathologist [facility] Vancomycin, Peak, Plasma 22.0 20.0 - 40.0 [...] ORDERABLES Final R esult Performing Organization Address [facility] Co de Phone Number [facility] [address] [place] [address] * Vancomycin, Trough, Plasma Please draw ~30 [...] Garza MD LAB BLOOD ORDERABLES Final R ult Performing Organization Address [facility] de Phone Number [facility] [address] [place] [address] * (ABNORMAL) Basic metabolic panel (01/17/2025 4:05 [...] [facility] [address] [place] [address] * [place] Extremity Limited MSK or Soft [...] [facility] [address] [place] [address] * Prothrombin Time/INR (01/16/2025 4:31 AM EDT) [...] INR 2.5 to 3.5 Prevention of recurrent LA INR 2.5 to 3.5 us Jeffrey Matute MD LAB BLOOD ORDERABLES Final Re sult [facility] [address] [place] [address] * (ABNORMAL) CBC W/O Differential (01/16/2025 4:31 [...] [facility] [address] [place] [address] * CT Tibia Fibula Left w IV [...] [facility] [address] [place] [address] * XR Chest 1 View (01/15/2025 11:21 [...] MD on 01/15/2025 11:40 PM Gus Vigil CLOTHING ROOM SUPERVISOR IMG XR PROCEDURES Final Result * XR [...] MD on 01/15/2025 11:40 PM Gus Rodger Vigil CLOTHING ROOM SUPERVISOR IMG XR PROCEDURES Final Result * Type [...] ORDERA BLES Final Result Performing Organization Address City/State/[facility] Co de Phone Number BLOOD BANK [address] [place] [address], * ECG Adult (01/15/2025 10:46 PM EDT) EKG DIAGNOSIS CLASS Normal MUSE ECG Ventricular Rate 92 BPM MUSE ECG Atrial Rate 92 BPM MUSE ECG IN Interval 122 ms MUSE ECG QRSD Interval 102 ms MUSE ECG QT Interval 350 ms MUSE ECG QTC Interval 432 ms MUSE ECG P [place] 56 degrees MUSE ECG R [place] 44 degrees MUSE ECG T Wave [place] 57 degrees MUSE ECG Diagnosis Normal sinus [...] may be compromised [facility] Vig[facility] APRN LAB MICROBIOLOGY - GENER AL ORDERABLES Final Result Performing Organization Address City/[facility]/ZIP Co de Phone Number [facility] [address] [place] [address] * (ABNORMAL) Sed rate, automated (01/15/2025 10:11 PM EDT) Sedimentation Rate 46(H) <15 mm/hr 2024 10:34 PM EDT [facility] Blood Venous blood specimen / Unknown Venipuncture / Unknown 01/15/2025 10:11 PM EDT 01/15/2025 10:12 PM EDT [facility] APRN LAB BLOOD ORDERABLES Fin al Result Performing Organization Address City/[facility]/ZIP Co de Phone Number [facility] [address] [place] [address] * (ABNORMAL) C-Reactive protein (01/15/2025 10:11 PM EDT) CRP, Plasma 91.9(H) <=8.0 mg/L 01/15/2025 10:32 PM EDT [facility] Blood Venous blood specimen / Unknown Venipuncture / Unknown 01/15/2025 10:11 PM EDT 01/15/2025 10:12 PM EDT Narrative [facility] - 01/15/2025 10:32 PM EDT This CRP test is appropriate for assessment of infection, systemic inflammation and/or tissue injury. To assess cardiovascular disease risk order high sensitivity CRP (CRPH). Gus P Niall CLOTHING ROOM SUPERVISOR LAB BLOOD ORDERABLES Fin al Result [facility] [address] [place] [address] * (ABNORMAL) Blood gas panel, venous (01/15/2025 [...] [facility] [address] [place] [address] * (ABNORMAL) CMP (01/15/2025 10:11 PM EDT) [...] EDT 01/15/2025 10:12 PM EDT Gus Vigil CLOTHING ROOM SUPERVISOR LAB BLOOD ORDERABLES Fin al Result [facility] [address] [place] [address] * PT-INR (01/15/2025 10:11 PM EDT) Prothrombin Time 12.5 12.0 - 14.3 sec 01/15/2025 10:28 PM EDT [facility] INR 1.0 0.9 - 1.1 01/15/2025 10:28 PM EDT [facility] [...] INR 2.5 to 3.5 Prevention of recurrent LA INR 2.5 to 3.5 Gus Vigil APRN LAB BLOOD ORDERABLES Fin al Result [facility] [address] [place] [address] * (ABNORMAL) CBC w/diff (01/15/2025 10:11 PM [...] [facility] [address] [place] [address] documented in this encounter Visit Diagnoses Diagnosis Cellulitis of leg, left- Primary Sepsis following procedure, initial encounter ([facility]) Cellulitis of left lower extremity Acute postoperative pain Other acute postoperative pain Closed fracture of left tibial plateau with routine healing, subsequent encounter Cellulitis of leg, left Cellulitis of left lower extremity Cellulitis of left lower extremity documented in this encounter Admitting Diagnoses Diagnosis Cellulitis of leg, left Cellulitis of left lower extremity Sepsis following procedure ([facility]) Closed fracture of left tibial [...] Miranda RN)[id number] (New Bag - Provider: Taryn Miranda, RN)1556 (New Bag - Provider: Alem Witt [...] procedure)1217 (OCT Unhold - Provider: Automatic Transfer Provider)1630 [...] (OCT Unhold - Provider: Automatic Transfer Provider) naloxone [...] CENTER Unhold - Provider: Automatic Transfer Provider) [email or web address] [...] documented as of this encounter Care Teams Skeet Operator Relationship Specialty Start Date End Date Renetta Pardo APRN [address] [place] [address] [place] [address] PCP - General 09/09/23 documented as of this encounter
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
--- OUTSIDE RECORDS SUMMARY | 2025-01-20 09:49 | XMS_ITS | Encounter Summary ---
Author Organization Healthcare Address [address] [place] [address] Care Team Providers Care Telecommunication Systems Designer Name Role Phone Renetta Pardo APRN Primary Care Provider [phone] [phone] Reason for Visit * Auth/Cert (Routine) Specialty Diagnoses / Procedures Referred By Raymondac t Referred To Contact Diagnoses Acute postoperative pain Cellulitis of leg, left Cellulitis of left lower extremity Sepsis following procedure, initial encounter ([facility]) recent LLE surgery @ now with cellulitis Sachin Garza MD [address] [facility] [address] [place] [address] Phone: tel: fax: PAV H Inpatient [address] [place] [address] Phone: tel: Referral ID Status Reason Start Date Expiration Date Visits Re quested Visits Authorized [id number] 1 1 Encounter Details Date Type Department Care Team (Late st Contact Info) Description 01/20/2025 9:49 AM EDT Anesthesia Event [facility]ATING RO[facility] [address] [place] [address] Filemon Matute MD [address] [place] [address] Gladis Tejada APRN [address] [place] [address] Anesthesia Record Procedure Summary Procedure [...] drink first t traci in the morning (EYE-LOADING DOCK HAND) to steady your nerves or to get rid of a hangover? 0 09/10/2023 CAGE Questionnaire Score 0 024 Utilities Answer Date Recorded In the past 12 months has th e [employer], oil, or water [employer] threatened to shut off services in your [...] portions of the procedure(s) and immediately available [facility] services the entire duration. See resident [...] portions of the procedure(s) and immediately [facility] the entire duration. See resident note for details. * Anesthesia Preprocedure Evaluation - Filemon Matute MD - 01/20/2025 7:12 AM EDT Patient: Panda Machado Procedure Information Date/Time: 01/20/25 1020 Procedure: INCISION AND DRAINAGE, LOWER EXTREMITY (Left: Leg Lower) Location: [facility] 1 / [place] Surgeons: Ye [...] Normal Ventricular Rate 92 Atrial Rate 92 [place] Interval 122 QRSD Interval 102 QT Interval 350 QTC Interval 432 P [place] 56 R [place] 44 T Wave [place] 57 Diagnosis Normal sinus rhythm Diagnosis Normal [...] LEG SURGERY Left [3] Allergies Allergen Reactions [place] Hives [4] acetaminophen, 1,000 mg, Oral, q6h [...] Description 02/11/2025 1:00 PM EDT Office Visit [address] [address] Ary Santiago, MEDICAL CLINIC MANAGER [address] [facility] [address] [place] [address] 02/17/2025 8:40 AM EDT Appointment [facility] Radiology [address], 1st [place] [address] 02/17/2025 9:20 AM EDT Office Visit [facility] Orthopaedic Surgery & Sports Medicine [address], 1[address] [place] [address] Lawrence Hayes MD [address] [place] [address] 03/03/2025 1:00 PM EDT Office Visit [facility] [address] [place] [address] Ary Santiago, MEDICAL CLINIC MANAGER [address] [facility] [address] [place] [address] documented as of this encounter Procedures Procedure Name Priority Date/Time Associated Diagnosis Comments ANESTHESIA PERIPHERAL IV PLACEMENT Routine 01/20/2025 10:10 AM EDT PB ANESTHESIA PLACEHOLDER Routine 01/20/2025 9:56 AM EDT MA AN ELECTIVE ENDOTRACHEAL AIRWAY Routine 01/20/2025 9:56 [...] MD ANESTHESIA ORDERABLES Final Res ult * [place] AN ELECTIVE ENDOTRACHEAL AIRWAY, PB [...] documented as of this encounter Care Teams Telecommunication Systems Designer Relationship Specialty Start Date End Date Renetta Pardo, MEDICAL CLINIC MANAGER [address] [place] [address] Dr [address] [place] [address] PCP - General 09/09/23 documented as of this encounter
--- OUTSIDE RECORDS SUMMARY | 2025-01-20 09:52 | XMS_ITS | Encounter Summary ---
Author Organization Healthcare Address [address] [place] [address] Care Team Providers Care Administrative Director Name Role Phone Renetta Pardo APRN Primary Care Provider [phone] Reason for Visit * Reason Comments Post-op Problem * Auth/Cert (Routine) Specialty Diagnoses / Procedures Referred By Adalid t Referred To Contact Diagnoses Acute postoperative pain Cellulitis of leg, left Cellulitis of left lower extremity Sepsis following procedure, initial encounter (CMS/[facility]) recent LLE surgery @ now with cellulitis Sachin Garza MD [address] [address] Phone: tel: fax: P[facility] H Inpatient [address] [place] [address] Phone: tel: Referral ID Status Reason Start Date Expiration Date Visits Re quested Visits Authorized [id number] 1 1 Encounter Details Date Type Department Care Team (Late st Contact Info) Description 01/20/2025 9:52 AM EDT - 01/20/2025 11:57 AM EDT Surgery [facility] A OPERATING ROOM [address] [place] [address] Bob Nava MD [id number] [place] [address] INCISION AND DRAINAGE, LOWER EXTREMITY [...] place to sleep or slept in a nursing home (including now)? No 09/12/2023 Humiliation, Afraid, [...] were you homeless or living in a nursing home (including now)? No 01/17/2025 CAGE ASSESSMENT [...] drink first t traci in the morning (EYE-PRINCIPAL ARCHITECTURAL FIRM) to steady your nerves or to get rid of a hangover? 0 09/10/2023 CAGE Questionnaire Score 0 024 Utilities Answer Date Recorded In the past 12 months has th e J[employer], gas, oil, or water company threatened to [...] from the original note were not included. 21994 Flushing Your PICC Line at Home Your [...] soap and water, use an alcohol-based hand geospatial information technologist. The gel should have at least 60% [...] PICC. Last Reviewed Date: 2024 00:00:00 ?? 7674-3978 [employer]. All rights reserved. This information is not intended as a substitute for professional medical care. Always follow your healthcare professional's instructions. * Rosaura RushDILLON - Leigh Rg RN - 01/22/2025 4:21 PM EDT Images from the original note were not included. 59758 Discharge Instructions: Changing the Dressing on Your [...] damage Last Reviewed Date: 2024 00:00:00 ?? 6715-3740 [employer]. All rights reserved. This information is not [...] the video go to this web address: [email or web address] Or, scan this QR code with your smart phone ?? [facility] * Rosaura Eason - Leigh Rg RN - 01/22/2025 4:20 PM EDT Images from the original note were not included. 71492 Understanding Post Sepsis Syndrome (PSS) Sepsis is [...] infections Last Reviewed Date: 2022 00:00:00 ?? 7206-8630 [employer]. All rights reserved. This information is not intended as a substitute for professional medical care. Always follow your healthcare professional's instructions. * Rosaura RushDILLON - Leigh Rg RN - 01/22/2025 4:20 PM EDT Images from the original note were not included. [id number] Buckle (Torus) Fracture of a Leg Your [...] wet, you can dry it with a repairer hairspring on the cool setting. ? Put an [...] doctor Last Reviewed Date: 2024 00:00:00 ?? 8021-3161 [employer]. All rights reserved. This information is not intended as a substitute for professional medical care. Always follow your healthcare professional's instructions. * Rosaura Eason - Leigh Rg RN - 01/22/2025 4:20 PM EDT Images from the original note were not included. 68129 Discharge Instructions for Cellulitis You have been [...] are in pain. Ask what kind of yssf-daj-cdadgmi medicine you can take for pain. ? [...] Vomiting. Last Reviewed Date: 2024 00:00:00 ?? 0606-9749 [employer]. All rights reserved. This information is not intended as a substitute for professional medical care. Always follow your healthcare professional's instructions. * Discharge Summary - Mauricio Mondragon MD - 01/22/2025 4:16 PM EDT Hospitalization Admit Date/Time: 01/15/2025 9:32 PM Admitting Attending: Sachin Garza Discharge Date: 01/22/25 Discharge Attending Physician: Sachin Garza MD PCP name and Address: Renetta Pardo, LUGGER [address] [place] [address] [address] / [facility] [address] Referring provider name and address: Maldonado Luciano PA [address] [facility] [address] [place] [address] Chief Concern, Brief History of Present Illness, [...] Your Medications These medications were sent to [facility], [place] - [address], [facility] [address] DAPTOmycin injection These medications were sent to [facility] - [place], [place] - [address] [facility] [address] oxyCODONE 5 MG immediate release capsule Discharge [...] Provider Department Center 01/27/2025 11:00 AM [facility] ORTHOPAEDICS LEG ASSEMBLER [facility] 02/03/2025 8:10 AM Lawrence Hayes MD ORTHCHKYC [facility] 02/11/2025 1:00 PM Ary Santiago APRN IDBCCLX [place] 03/03/2025 1:00 PM Ary Santiago APRN IDBCCLX [place] Test Results Pending At Discharge Pending Labs [...] Spoke with: Patient, Family, and Bedside cloth sander and Interventions: Assessed: Dressing Dressing Interventions: CDI [...] please contact the Orthopedic Transition Nurse at [phone] Monday through Monday 8:00 am to 2:30 pm. If you feel your concern is a medical emergency please call 911 immediately * Progress Notes - Anna Elam RN - 01/22/2025 9:28 AM EDT Case Management Discharge Note Ravin Ribeiro 34 y.o. male CSN: [id number] Admission: 01/15/2025 9:32 PM Primary Problem: Cellulitis of leg, left Primary Sound Cutter: Primary Caregiver: Self Assistance Available at Discharge: Current Outpatient/Agency/Support Group: DME Availability of Care Givers (#Hours): 24 hours Family/Sound Cutter(s) Willingness Assessed to care for patient at home: Yes Family/Sound Cutter(s) Readiness Assessed to care for patient at [...] Community Agency(s): Patient's Choice of Community Agency(s): [facility] Patient/Family Anticipated Services at Transition: Patient/Family [...] agreeable to discharge POC. [facility] [phone] [phone] Anna Elam RN * Progress Notes - [...] Ayden Canseco MD PGY-1, Orthopaedic Surgery [facility] Orthopaedic Trauma Service Pager: [phone] Orthopaedic Recon/Spine/Foot and Ankle Service Pager: [phone] Cosigned by Lawrence Hayes MD at 01/22/2025 [...] required Red Mondragon MD Orthopaedic Surgery PGY-1 [facility] Orthopaedic Trauma Service Pager: [phone] Orthopaedic Recon/Spine/Foot and Ankle Service Pager: [phone] Personal Pager: [phone] Cosigned by Lawrence Hayes MD at 01/22/2025 1:06 PM EDT * Procedures - Norma Miranda RN - 01/21/2025 7:01 PM EDTAssociated Order(s): Insert PICC line Insert PICC line Date/Time: 01/21/2025 7:01 PM Performed by: Norma Miranda RN Authorized by: Sachin Garza MD [place] Protocol: Verbal consent obtained?: Yes Written consent [...] preference Patient position: Supine Catheter Lot #: [id number] Catheter highway traffic control technician: [employer] PowerPICC Solo Catheter placed: Single lumen [...] 01/21/2025 3:28 PM EDT [facility] and for for possible home IV antibiotic infusion. There was no accepting companies in patient's area. CM spoke with patient and he is agreeable to either go to his local hospital [facility] or come to [facility] in [place] for his weekly PICC care/labs if needed. * Nursing Note - Camden Vital RN - 01/21/2025 1:45 PM EDT Orthopedic Transition Nurse Note General: Spoke with: Patient, Family, and Bedside cloth sander and Interventions: Assessed: Dressing Dressing Interventions: CDI [...] please contact the Orthopedic Transition Nurse at [phone] Monday through Monday 8:00 am to 2:30 pm. If you feel your concern is a medical emergency please call 911 immediately * Steff Odell RN - 01/21/2025 11:57 AM EDT Images from the original note were not included. [id number] PICC Line Care PICC stands for peripherally [...] arm Last Reviewed Date: 2024 00:00:00 ?? 4098-9741 [employer]. All rights reserved. This information is not intended as a substitute for professional medical care. Always follow your healthcare professional's instructions. * Steff Odell RN - 01/21/2025 11:56 AM EDT Images from the original note were not included. [id number] * Steff Odell RN - 01/21/2025 11:56 AM EDT Images from the original note were not included. [id number] * Steff Odell RN - 01/21/2025 11:56 [...] house or a medical facility. The case fitter/social worker palliative care will setthat up based on your [...] or during weekends/[place] holidays, call the paging dowel sander operator at . Ask for the infectious disease fellow fire prevention forester. Call the clinic if you have any [...] from the original note were not included. 13374 Flushing Your PICC Line at Home Your [...] soap and water, use an alcohol-based hand geospatial information technologist. The gel should have at least 60% [...] PICC. Last Reviewed Date: 2024 00:00:00 ?? 1176-2874 [employer]. All rights reserved. This information is not intended as a substitute for professional medical care. Always follow your healthcare professional's instructions. * [facility] - Steff Paz RN - 01/21/2025 11:56 AM EDT Images from the original note were not included. [id number] Daptomycin Injection Brand Name(s): Cubicin??, Cubicin RF??; [...] be awakened, immediately call emergency services at 681. What OTHER INFORMATION should I know? Keep [...] of all of the prescription and nonprescription (pgoc-bkg-nvowupl) medicines you are taking, as well as [...] or pharmacist about specific clinical use. The [place] [employer] represents that the information provided hereunder was formulated with a reasonable standard of care, and in conformity with professional standards in the field. The [place] [employer] makes no representations or warranties, express or implied, including, but not limited to, any implied warranty of merchantability and/or fitness for a particular purpose, with respect to such information and specifically disclaims all such warranties. Users are advised that decisions regarding drug therapy are complex medical decisions requiring the independent, informed decision of an appropriate health home care giver, and the information is provided for informational purposes only. The entire monograph for a drug should be reviewed for a thorough understanding of the drug's actions, uses and side effects. The [place] [employer] does not endorse or recommend the use of any drug.The information is not a substitute for medical care. AHFS?? Patient Medication Information?. ?? Copyright, 2023. The [place] [employer] Pharmacists??, [address] [facility], [address], [place], [place]. All Rights Reserved. Duplication for commercial use must be authorized by [facility]. Selected Revisions: July 28, 2019. AHFS?? Patient Medication Information?. ?? Copyright, 2024 * Rosaura OnIR - Steff Paz RN - 01/21/2025 11:56 AM EDT Images from the original note were not included. 43772 Discharge Instructions: Caring for Your Peripherally Inserted [...] damage. Last Reviewed Date: 2024 00:00:00 ?? 0456-9772 [employer]. All rights reserved. This information is not intended as a substitute for professional medical care. Always follow your healthcare professional's instructions. * Rosaura RushDILLON - Steff Paz RN - 01/21/2025 11:56 AM EDT Images from the original note were not included. 47577 Central Line Infections You need a central [...] water. Or they use an alcohol-based hand geospatial information technologist containing at least 60% alcohol. ? Using [...] (warm or cold), and use alcohol-based hand geospatial information technologist with at least 60% alcohol as directed. To clean your hands well,follow the guidelines on this sheet. Visitors should wash their hands well when they arrive and when they leave. ? Make sure healthcare staff and your visitors clean their hands. They should use soap and clean, running water or an alcohol-based hand geospatial information technologist before and after checking the line. Don?t [...] good choice for cleaning your hands. The geospatial information technologist should have at least 60% alcohol. Note that some germs can't be killed by alcohol. Your healthcare team can answer any questions you have about when to use a hand geospatial information technologist, or when it?s better to wash with soap and water. Follow these steps: ? Spread the hand geospatial information technologist in the palm of one hand. (Check the package for specific guidelines.) ? Rub your hands together briskly. Clean the backs of your hands, the palms, between your fingers, and up your wrists. ? Rub until the geospatial information technologist is gone and your hands are completely [...] skin Last Reviewed Date: 2023 00:00:00 ?? 3929-8633 [employer]. All rights reserved. This information is not [...] Lumen PICC Patient Specific Outpatient Circumstances: [address] [place] [address] Family Support: Extended Emergency Contact Information Primary Emergency Contact: Hayley Buenrostro Address: [address] [place] [address] Mobile Relation: Significant Other Preferred language: American Plate Drying Machine Tender needed? No Secondary Emergency Contact: Jenny Buenrostro Address: [address] [place] [address] [place] Relation: Mother Contact information: Ravin Ribeiro [phone] (home) Outpatient services (including home infusion, home health, facility referral: See recent [facility] case management/social work note for finalization of services ID follow up appointment: Future Appointments Date Time Provider Department Center 02/03/2025 8:10 AM Lawrence Hayes MD [facility] 02/11/2025 1:00 PM Ary Santiago APRN IDBCCLX [place] 03/03/2025 1:00 PM Ary Santiago APRN IDBCCLX [place] Patient Assessment I spoke with patient at [...] via secure chat or staff messaging in [employer]. Patient and family will need to [...] days prior to presentation. He presented to [facility] wherehe was febrile to 101.3F. Upon [...] PA-C Division of Infectious Diseases Available on [employer] Chat History, assessment, and plan discussed [...] labs to: ID OPAT Team Fax #: [phone] Appointments: Ary Santiago APRN on 02/11 at 1PM and 03/03 at 1PM [facility]: [address] [place] [address] (Select Option 3 for IV Antibiotic / PICC line related issues) For questions regarding OPAT prior to discharge, reach out to the OPAT team via [employer] Secure Chat (Group: OPAT Referral Team). For all questions regarding OPAT after discharge should be directed to the OPAT Team at (Select Option 3 for IV Antibiotics/PICC Issues) between 8am-5pm. After 5 pm, or during weekends/ holidays, please call the paging dowel sander operator at to reach the on-call ID [...] at 01/18/25 1133 [2] Allergies Allergen Reactions [place] Hives * Consults - Delma Ortiz - 01/21/2025 10:00 AM EDT Pastoral Care Note: Patient was appreciative of clinical review nurse's visit and expressed gratitude to the care team. he said family is on their way to him. Referral From: Ramp Agent Initiated Pastoral Care Provided For: Patient Patient Profile: Spiritual Assessment: Support Systems/ Spiritual Resources: Treasure, Sense of Peace, Trust, Gratitude Spiritual Needs: Emotional support, Spiritual ritual Spiritual Issues: Discharge Interventions: Pastoral Care Outcomes: Patient Outcomes: Appreciative of Ramp Agent Support, Expresses acceptance, Gratitude Cosigned by Macrina Dumont at 01/21/2025 6:24 PM EDT Associated attestation - Macrina Dumont - 01/21/2025 6:24 PM EDT This is to attest clinical review nurse nutrition intern chart note has been reviewed and okayed. * Care Plan - Katalian Martinez RN - 01/21/2025 9:56 AM EDT [...] in room/hallway with family and senior staff psychologist while remains inpatient. Patient demonstrates [...] Prevent or Manage Infection Flowsheets (Taken 01/20/2025 6546) Infection Management: aseptic technique maintained Fever Reduction/Comfort [...] Agree with above assessment and evaluation from resident/FORM SETTER. * Progress Notes - Anna Elam RN - 01/20/2025 10:48 AM EDT Case Management Adult Progress Note Ravin Ribeiro 34 y.o. male CSN: [id number] Admission: 01/15/2025 9:32 PM Primary Problem: Cellulitis of leg, left Anticipated Discharge Date: TBD Pt to OR today for repeat I&D on left knee. Pt has worsening NORMAN and team wants to repeat AM labs. Final ID recs and OPAT eval are pending. Referral sent to [facility] and HH today. Pt's medicaid may be a potential barrier to HH. CM will continue to assist with discharge POC. Anna Elam RN * Op Note - Bob Nava MD - 01/20/2025 10:26 AM EDT Operative Note Date: 01/20/25 Location: [facility] Name: Ravin Ribeiro, : 1990, Diagnoses: Pre-op Diagnosis Closed fracture of left tibial plateau with routine healing, subsequent encounter Left proximal tibia (knee region) deep abscess Post-op Diagnosis Closed fracture of left tibial plateau with routine healing, subsequent encounter Left proximal tibia (knee region) deep abscess Procedure(s): Incision and drainage of left knee deep abscess Attending Surgeon(s): * Bob Nava - Primary Plug Shaper Hand(s): * Emely Giron MD - Resident - [...] days prior to presentation. He presented to [facility] wherehe was febrile to 101.3F. Upon [...] PA-C Division of Infectious Diseases Available on [facility] Chat History, assessment, and plan discussed with [...] 10 mL 10 mL Intravenous PRN Filemon Mautte MD [Transfer Hold] traMADol (Ultram) tablet 50 mg 50 mg Oral q6h PRN Tyrone Howard MD 50 mg at 01/18/25 1133 [Transfer Hold] vancomycin (Vancocin) intermittent dosing 1 each 1 each Intravenous See admin instructions Mauricio Mondragon MD vancomycin in NS (Vancocin) IVPB 1,500 mg 1,500 mg Intravenous Once Gustavo Hightower MD [2] Allergies Allergen Reactions [place] Hives * Consults - Ricco Howard RN [...] Ayden Canseco MD PGY-1, Orthopaedic Surgery [facility] Orthopaedic Trauma Service Pager: [phone] Orthopaedic Recon/Spine/Foot and Ankle Service Pager: [phone] Cosigned by Sachin Garza MD at 01/20/2025 [...] Course 1. Sepsis following procedure, initial encounter ([facility]) 2. Cellulitis of [...] admission Level of Mobility: Ambulatory- community Mobility [place]: Independent gait without device (intermittne use of [...] Mobility Bed Mobility Exam: Scooting/Bridging Level of [place]: Independent Bed Mobility Exam: Supine to Sit Level of [place]: Independent Transfers Transfer Exam: Sit to stand Level of [place]: Stand-by assist Physical/Nonphysical Assist: Verbal Cues Assistive Device: Walker, rolling Transfer Exam: Stand to Sit Level of [place]: Stand-by assist Physical/Nonphysical Assist: Verbal Cues Assistive Device: Walker, rolling Toilet Transfer Level of [place]: Stand-by assist Physical/Nonphysical Assist: Verbal Cues Type of Transfer: Ambulation, To toilet Assistive Device: Walker, rolling, Grab bar Functional Mobility Device: Rolling walker Assistance: Standby assist <Household distance, cuing for safety, pacing activity, RW management, and encouraged L LE WBAT-as permitted per chart (pt reports being used to NWB for pain management STREET VENDOR) Balance Postural Appearance Posture: Within Functional Limits [...] admission Level of Mobility: Ambulatory- community Mobility [place]: Independent gait without device (intermittne use of [...] Mobility Bed Mobility Exam: Scooting/Bridging Level of [place]: Independent Bed Mobility Exam: Supine to Sit Level of [place]: Independent Transfers Transfer Exam: Sit to stand Level of [place]: Stand-by assist Physical/Nonphysical Assist: Verbal Cues Assistive Device: Walker, rolling Transfer Exam: Stand to Sit Level of [place]: Stand-by assist Physical/Nonphysical Assist: Verbal Cues Assistive [...] Assessments Standardized Assessments: AMPA 6-Clicks Mobility Assessment [facility] 6-Clicks Mobility Assessment Difficulty patient has [...] 3-5 steps with a railing?: A little [facility] 6-Clicks Mobility Assessment Total : 23 [...] required Red Mondragon MD Orthopaedic Surgery PGY-1 [facility] Orthopaedic Trauma Service Pager: [phone] Orthopaedic Recon/Spine/Foot and Ankle Service Pager: [phone] Personal Pager: [phone] Cosigned by Ye Navarro MD at 01/21/2025 [...] AM EDT Operative Note Date: 01/18/25 Location: [facility] Name: Ravin Ribeiro, : 1990, Diagnoses: Pre-op Diagnosis Cellulitis of left lower extremity Post-op Diagnosis Cellulitis of left lower extremity Procedure(s): Irrigation and debridement of left medial tibial plateau deep abscess Attending Surgeon(s): * Ye Navarro - Primary Plug Shaper Hand(s): * Harvey Swift MD - Resident - [...] General: Spoke with: Patient and Bedside cloth sander and Interventions: Assessed: Wound 01/01/25 Surgical Open [...] please contact the Orthopedic Transition Nurse at [phone] Monday through Monday 8:00 am to 2:30 [...] ] Family [ ] Friend [ ] Plate Drying Machine Tender [X] Medical records HISTORY OF PRESENT ILLNESS: [...] medial pretibial incision so he presented to [facility] for evaluation. He was febrile to101.3F [...] on day of presentation. He lives in [place] with his , CONSTANZA, and 2 young [...] days prior to presentation. He presented to [facility] wherehe was febrile to 101.3F. Upon [...] PA-C Division of Infectious Diseases Available on [employer] Chat History, assessment, and plan discussed with ID attending, Dr. Azucena Collado The following complex inpatient infectious disease services were performed today: Complex antimicrobial therapy counseling and treatment [1] History reviewed. No pertinent past medical history. [2] Past Surgical History: Procedure Laterality Date LEG SURGERY Left [3] Allergies Allergen Reactions [place] Hives [4] Current Facility-Administered Medications Medication Dose [...] flush 10 mL 10 mL Intravenous q12h yTrone Howard MD 10 mL at 01/16/252058 And [...] Note Ravin Ribeiro 34 y.o. male CSN: [id number] Admission: 01/15/2025 9:32 PM Primary Problem: Cellulitis of leg, left Mathematical Statistician reviewed chart and spoke with patient to complete this Initial Case Management Assessment. PCP: Renetta Pardo APRN Emergency Contact: Extended Emergency Contact Information Primary Emergency Contact: Hayley Buenrostro Address: [address] [place] [address] Mobile Relation: Significant Other Preferred language: American Plate Drying Machine Tender needed? No Secondary Emergency Contact: Jenny Buenrostro Address: [address] [place] [address] Mobile Relation: Mother Insurance: Primary Visit Coverage Payer Plan Sponsor Code Group Number Group Name [employer]ICAID M[place] [employer] [place]ID Primary Visit Coverage Subscriber Subscriber ID Subscriber Name Subscriber N Subscriber Address [id number] RAVIN RIBEIRO [id number] [place] [address] Patient information: Primary Caregiver: Self Support System: Immediate family Daily Living Activities: Functional Status: Independent Living Arrangements: Spouse/Significant other, Family Type of Residence: Private residence, Single Level [address] [place] [address] Current DME: Equipment Currently Used at Home: [...] Outpatient Dialysis Services: Living Will/Advance Directive/Power of Video Game Programmer /Guardian: Have you reviewed your Advance Directive [...] Pt states he lives at home in [place] with his , MIL, and two small [...] General: Spoke with: Patient and Bedside cloth sander and Interventions: Assessed: Wound 01/01/25 Surgical Open [...] please contact the Orthopedic Transition Nurse at [phone] Monday through Monday 8:00 am to 2:30 [...] exams. Mitch Giron MD PGY-3, Orthopaedic Surgery [facility] Orthopaedic Trauma Service Pager: [phone] Orthopaedic Recon/Spine/Foot and Ankle Service Pager: [phone] Cosigned by Sachin Garza MD at 01/18/2025 12:16 AM EDT Associated attestation - Sachin Garza MD - 01/18/2025 12:16 AM EDT I discussed the case with the resident/fellow and agree with the findings and plan as documented. Sachin Garza MD Orthopaedic Trauma * Discharge Instr - Other Orders - Camden Vital, HSEREEN - 01/16/2025 10:28 AM EDT Do not [...] your wound. Based upon recent changes to [place] law related to prescribing opioid pain medications, [...] please contact the Orthopedic Transition Nurse at [phone] Monday through Monday 8:00 am to 2:30 [...] examinations Tabitha Howard MD PGY-2, Orthopaedic Surgery [facility] Cosigned by Sachin Garza MD at [...] W. Shawn Howard MD PGY-2, Orthopaedic Surgery [facility] Orthopaedic Trauma Service Pager: [phone] Orthopaedic Recon/Spine/Foot and Ankle Service Pager: [phone] [1] History reviewed. No pertinent past medical [...] 25 tablet 0 [4] Allergies Allergen Reactions [place] Hives Cosigned by Sachin Garza MD at [...] 01/16/25 0657 Sepsis following procedure, initial encounter ([facility]) Cellulitis of left [...] diagnosis was Sepsis following procedure, initial encounter ([facility]). Diagnoses of Cellulitis [...] Drug use: Never [5] Allergies Allergen Reactions [place] Hives Gus Vigil APRN 01/16/25 0657 Cosigned [...] 01/16/25 0733 Sepsis following procedure, initial encounter ([facility]) Cellulitis of left lower extremity Acute postoperative pain Ultimately, this patient Was admitted (Admission) The primary encounter diagnosis was Sepsis following procedure, initial encounter ([facility]). Diagnoses of Cellulitis [...] Description 02/11/2025 1:00 PM EDT Office Visit [facility] [address] [place] [address] Ary Santiago, YUN [address] [facility] [address] [place] [address] 02/17/2025 8:40 AM EDT Appointment [facility] Radiology [address] [place] [address] 02/17/2025 9:20 AM EDT Office Visit [facility] Orthopaedic Surgery & Sports Medicine [address] [place] [address] Lawrence Hayes MD [address] [place] [address] 03/03/2025 1:00 PM EDT Office Visit [facility] [address] [facility] [place] [address] Ary Santiago, YUN [address] [facility] [address] [place] [address] Pending Results Name Type Priority [...] (ABNORMAL) C-reactive protein (01/22/2025 5:04 AM EDT) [facility] CRP, Plasma 44.4(H) <=8.0 mg/L 01/22/2025 9:25 AM EDT [facility] Blood Venous blood specimen / Unknown Venipuncture / Unknown 01/22/2025 5:04 AM EDT 01/22/2025 5:31 AM EDT Narrative [facility] - 01/22/2025 9:25 AM EDT This CRP test is appropriate for assessment of infection, systemic inflammation and/or tissue injury. To assess cardiovascular disease risk order high sensitivity CRP (CRPH). us Michelle ZULUAGA LAB BLOOD ORDERABLES Final Res ult Performing Organization Address [facility]/ZIP Co de Phone Number [facility] [address] [place] [address] * Lavender Top (01/22/2025 5:04 AM EDT) Extra Hold for add-ons 01/22/2025 8:02 AM EDT [facility] Comment:Auto resulted. Blood Venous blood specimen / Unknown 01/22/2025 5:04 AM EDT 01/22/2025 5:30 AM EDT us Sachin Garza MD LAB BLOOD ORDERABLES Final R esult Performing Organization Address [facility] Co de Phone Number [facility] [address] [place] [address] * (ABNORMAL) Basic metabolic panel (01/22/2025 5:04 AM EDT) Glucose, Plasma 91 74 - 99 mg/dL 01/22/2025 6:01 AM EDT [facility] BUN, Plasma 33(H) 7 - 21 mg/dL 01/22/2025 6:01 AM EDT [facility] Creatinine, Plasma 1.47(H) 0.70 - 1.20 mg/dL 01/22/2025 6:01 AM EDT [facility] BUN/Creatinine Ratio 22 01/22/2025 6:01 AM EDT [facility] Sodium, Plasma 137 136 - 145 mmol/L 01/22/2025 6:01 AM EDT [facility] Potassium, Plasma 5.3(H) 3.6 - 4.9 mmol/L 01/22/2025 6:01 AM EDT [facility] Chloride, Plasma 100 97 - 107 mmol/L 01/22/2025 6:01 AM EDT [facility] CO2, Plasma 28 22 - 29 mmol/L 01/22/2025 6:01 AM EDT [facility] Anion Gap 9 6 - 16 mmol/L 01/22/2025 6:01 AM EDT [facility] Total Calcium, Plasma 9.6 8.9 - 10.2 mg/dL 01/22/2025 6:01 AM EDT [facility] eGFRcr 63.4 mL/min/1.7 3m*2 01/22/2025 6:01 AM EDT [facility] Comment:Reported eGFRcr in m L/min/1.73m2 is based the CKD-EPI 2020 equation that does not use a race coefficient. Blood Venous blood specimen / Unknown Venipuncture / Unknown 01/22/2025 5:04 AM EDT 01/22/2025 5:31 AM EDT us Sachin Garza MD LAB BLOOD ORDERABLES Final R esult [facility] [address] [place] [address] * (ABNORMAL) CBC (01/21/2025 7:29 PM EDT) WBC Count 10.10 3.70 - 10.30 10*3/uL LAB HEMATOLOGY METHOD 01/21/2025 7:42 PM EDT [facility] RBC Count 3.82(L) 4.60 - 6.10 10*6/uL LAB HEMATOLOGY METHOD 01/21/2025 7:42 PM EDT [facility] HGB 11.5(L) 13.7 - 17.5 g/dL LAB HEMATOLOGY METHOD 01/21/2025 7:42 PM EDT [facility] HCT 35.2(L) 40.0 - 51.0 % LAB HEMATOLOGY METHOD 01/21/2025 7:42 PM EDT [facility] Platelet Count 446(H) 155 - 369 10*3/uL LAB HEMATOLOGY METHOD 01/21/2025 7:42 PM EDT [facility] MCV 92 79 - 98 fL LAB HEMATOLOGY METHOD 01/21/2025 7:42 PM EDT [facility] MCH 30.1 26.0 - 32.0 pg LAB HEMATOLOGY METHOD 01/21/2025 7:42 PM EDT [facility] MCHC 32.7 30.7 - 35.5 g/dL LAB HEMATOLOGY METHOD 01/21/2025 7:42 PM EDT [facility] RDW 13.1 11.5 - 14.5 % LAB HEMATOLOGY METHOD 01/21/2025 7:42 PM EDT [facility] MPV 9.1 8.8 - 12.5 fL LAB HEMATOLOGY METHOD 01/21/2025 7:42 PM EDT [facility] nRBC 0.0 <=0.0 per 100 WBCs LAB HEMATOLOGY METHOD 01/21/2025 7:42 PM EDT [facility] Blood Venous blood specimen / Unknown Venipuncture / Unknown 01/21/2025 7:29 PM EDT 01/21/2025 7:35 PM EDT us Sachin Garza MD LAB BLOOD ORDERABLES Final R esult [facility] [address] [place] [address] * (ABNORMAL) Basic metabolic panel (01/21/2025 7:29 PM EDT) Glucose, Plasma 122(H) 74 - 99 mg/dL 01/21/2025 8:03 PM EDT [facility] BUN, Plasma 31(H) 7 - 21 mg/dL 01/21/2025 8:03 PM EDT [facility] Creatinine, Plasma 1.64(H) 0.70 - 1.20 mg/dL 01/21/2025 8:03 PM EDT [facility] BUN/Creatinine Ratio 19 01/21/2025 8:03 PM EDT [facility] Sodium, Plasma 139 136 - 145 mmol/L 01/21/2025 8:03 PM EDT [facility] Potassium, Plasma 4.6 3.6 - 4.9 mmol/L 01/21/2025 8:03 PM EDT [facility] Chloride, Plasma 101 97 - 107 mmol/L 01/21/2025 8:03 PM EDT [facility] CO2, Plasma 26 22 - 29 mmol/L 01/21/2025 8:03 PM EDT [facility] Anion Gap 12 6 - 16 mmol/L 01/21/2025 8:03 PM EDT [facility] Total Calcium, Plasma 9.1 8.9 - 10.2 mg/dL 01/21/2025 8:03 PM EDT [facility] eGFRcr 55.6 mL/min/1.7 3m*2 01/21/2025 8:03 PM EDT [facility] Comment:Reported eGFRcr in m L/min/1.73m2 is based the CKD-EPI 2020 equation that does not use a race coefficient. Blood Venous blood specimen / Unknown Venipuncture / Unknown 01/21/2025 7:29 PM EDT 01/21/2025 7:35 PM EDT us Sachin Garza MD LAB BLOOD ORDERABLES Final R esult [facility] [address] [place] [address] * PICC SINGLE LUMEN (SMARTFORM LINK) (01/21/2025 7:01 PM EDT) Narrative Norma Miranda RN - 01/21/2025 7:01 PM EDT Norma Miranda RN 01/21/2025 7:19 PM Insert PICC line Date/Time: 01/21/2025 7:01 PM Performed by: Norma Miranda RN Authorized by: Sachni Garza MD [place] Protocol: Verbal consent obtained?: Yes Written consent [...] preference Patient position: Supine Catheter Lot #: [id number] Catheter highway traffic control technician: Bard PowerPICC Solo Catheter placed: Single lumen [...] at day 4 2024 7:15 AM EDT [facility] Gram Stain Result No polymorphonuclear leukocytes seen 01/25/2025 7:15 AM EDT [facility] Gram Stain Result No organisms seen 01/25/2025 7:15 AM EDT [facility] Swab Structure of left knee region / Unknown 01/20/2025 10:42 AM EDT 01/20/2025 11:25 AM EDT Comment:Pre-op diagnosis: Closed fracture of left tibial plateau with routine healing, subsequent encounter [Y14.130H] Bob Nava MD LAB MICROBIOLOGY - GENERAL O RDERABLES Final Result [facility] [address] [place] [address] * Fungal Culture, Routine (01/20/2025 10:42 AM EDT) Culture No Fungal Growth at 1 Week 01/28/2025 7:34 AM EDT [facility] Swab Structure of left knee region / Unknown 01/20/2025 10:42 AM EDT 01/20/2025 11:25 AM EDT Comment:Pre-op diagnosis: Closed fracture of left tibial plateau with routine healing, subsequent encounter [S82.142D] us Bob Nava MD LAB MICROBIOLOGY - GENERAL O RDERABLES Final Result Performing Organization Address [facility]/ZIP Co de Phone Number [facility] [address] [place] [address] * Anaerobic Culture (01/20/2025 10:42 AM EDT) Culture No growth at day 4 01/28/2025 7:09 AM EDT [facility] Swab Structure of left knee region / Unknown 01/20/2025 10:42 AM EDT 01/20/2025 11:25 AM EDT Comment:Pre-op diagnosis: Closed fracture of left tibial plateau with routine healing, subsequent encounter [S82.142D] us Bob Nava MD LAB MICROBIOLOGY - GENERAL O RDERABLES Final Result Performing Organization Address [facility] Co de Phone Number [facility] [address] [place] [address] * Tissue Culture and Gram Stain (01/20/2025 10:30 AM EDT) Culture No growth at day 4 2024 7:15 AM EDT [facility] Gram Stain Result No polymorphonuclear leukocytes seen 01/25/2025 7:15 AM EDT [facility] Gram Stain Result No organisms seen 01/25/2025 7:15 AM EDT [facility] Tissue Structure of left knee region / Unknown 01/20/2025 10:30 AM EDT 01/20/2025 11:23 AM EDT Comment:Pre-op diagnosis: Closed fracture of left tibial plateau with routine healing, subsequent encounter [S82.142D] us Bob Nava MD LAB MICROBIOLOGY - GENERAL O RDERABLES Final Result Performing Organization Address [facility]/ZIP Co de Phone Number [facility] [address] [place] [address] * Anaerobic Culture (01/20/2025 10:30 AM EDT) Culture No growth at day 4 01/28/2025 7:09 AM EDT [facility] Tissue Structure of left knee region / Unknown 01/20/2025 10:30 AM EDT 01/20/2025 11:23 AM EDT Comment:Pre-op diagnosis: Closed fracture of left tibial plateau with routine healing, subsequent encounter [S82.142D] us Bob Nava MD LAB MICROBIOLOGY - GENERAL O RDERABLES Final Result Performing Organization Address [facility] Co de Phone Number [facility] [address] [place] [address] * Tissue Culture and Gram Stain (01/20/2025 10:27 AM EDT) Culture No growth at day 4 2024 7:15 AM EDT [facility] Gram Stain Result No organisms seen 01/25/2025 7:15 AM EDT [facility] Gram Stain Result No polymorphonuclear leukocytes seen 01/25/2025 7:15 AM EDT [facility] Tissue Structure of left knee region / Unknown 01/20/2025 10:27 AM EDT 01/20/2025 11:24 AM EDT Comment:Pre-op diagnosis: Closed fracture of left tibial plateau with routine healing, subsequent encounter [S82.142D] us Bob Nava MD LAB MICROBIOLOGY - GENERAL O RDERABLES Final Result Performing Organization Address [facility]/ZIP Co de Phone Number [facility] [address] [place] [address] * Anaerobic Culture (01/20/2025 10:27 AM EDT) Culture No growth at day 4 01/28/2025 7:09 AM EDT [facility] Tissue Structure of left knee region / Unknown 01/20/2025 10:27 AM EDT 01/20/2025 11:24 AM EDT Comment:Pre-op diagnosis: Closed fracture of left tibial plateau with routine healing, subsequent encounter [S86.257J] us Bob Nava MD LAB MICROBIOLOGY - GENERAL O RDERABLES Final Result Performing Organization Address [facility]/ZIP Co de Phone Number [facility] [address] [place] [address] * (ABNORMAL) Creatine Kinase (CK), Total (01/20/2025 3:40 AM EDT) Creatine Kinase, Plasma 18(L) 49 - 320 U/L 01/21/2025 12:17 PM EDT [facility] Blood Venous blood specimen / Unknown Venipuncture / Unknown 01/20/2025 3:40 AM EDT 01/20/2025 3:57 AM EDT us Sachin Garza MD LAB BLOOD ORDERABLES Final R esult Performing Organization Address [facility] [place] [place] [address] * Vancomycin, random (01/20/2025 3:40 AM EDT) Vancomycin, Random, Plasma 20.1 ug/mL 01/20/2025 4:51 AM EDT [facility] Blood Venous blood specimen / Unknown Venipuncture / Unknown 01/20/2025 3:40 AM EDT 01/20/2025 3:57 AM EDT us Sachin Garza MD LAB BLOOD ORDERABLES Final R esult Performing Organization Address [facility] Co de Phone Number [facility] [address] [place] [address] * Protime-INR (01/20/2025 3:40 AM EDT) Prothrombin Time 13.5 12.0 - 14.3 sec LAB COAGULATION METHOD 01/20/2025 4:17 AM EDT [facility] INR 1.0 0.9 - 1.1 LAB COAGULATION METHOD 01/20/2025 4:17 AM EDT [facility] Blood Venous blood specimen / Unknown Venipuncture / Unknown 01/20/2025 3:40 AM EDT 01/20/2025 3:56 AM EDT Narrative [facility] - 01/20/2025 4:17 [...] recurrent [place] INR 2.5 to 3.5 us Sahcin Garza MD LAB BLOOD ORDERABLES Final R esult [facility] [address] [place] [address] * (ABNORMAL) Basic metabolic panel (01/20/2025 3:40 AM EDT) Pathologist [facility] Glucose, Plasma 87 74 - 99 mg/dL 01/20/2025 4:51 AM EDT [facility] BUN, Plasma 30(H) 7 - 21 mg/dL 01/20/2025 4:51 AM EDT [facility] Creatinine, Plasma 1.59(H) 0.70 - 1.20 mg/dL 01/20/2025 4:51 AM EDT [facility] BUN/Creatinine Ratio 19 01/20/2025 4:51 AM EDT [facility] Sodium, Plasma 142 136 - 145 mmol/L 01/20/2025 4:51 AM EDT [facility] Potassium, Plasma 4.7 3.6 - 4.9 mmol/L 01/20/2025 4:51 AM EDT [facility] Chloride, Plasma 104 97 - 107 mmol/L 01/20/2025 4:51 AM EDT [facility] CO2, Plasma 26 22 - 29 mmol/L 01/20/2025 4:51 AM EDT [facility] Anion Gap 12 6 - 16 mmol/L 01/20/2025 4:51 AM EDT [facility] Total Calcium, Plasma 8.9 8.9 - 10.2 mg/dL 01/20/2025 4:51 AM EDT [facility] eGFRcr 57.7 mL/min/1.7 3m*2 01/20/2025 4:51 AM EDT [facility] Comment:Reported eGFRcr in m L/min/1.73m2 is based the CKD-EPI 2020 equation that does not use a race coefficient. Blood Venous blood specimen / Unknown Venipuncture / Unknown 01/20/2025 3:40 AM EDT 01/20/2025 3:57 AM EDT us Sachin Garza MD LAB BLOOD ORDERABLES Final R esult [facility] [address] [place] [address] * (ABNORMAL) CBC W/O Differential (01/20/2025 3:40 AM EDT) WBC Count 8.11 3.70 - 10.30 10*3/uL LAB HEMATOLOGY METHOD 01/20/2025 4:04 AM EDT [facility] RBC Count 3.64(L) 4.60 - 6.10 10*6/uL LAB HEMATOLOGY METHOD 01/20/2025 4:04 AM EDT [facility] HGB 10.7(L) 13.7 - 17.5 g/dL LAB HEMATOLOGY METHOD 01/20/2025 4:04 AM EDT [facility] HCT 34.5(L) 40.0 - 51.0 % LAB HEMATOLOGY METHOD 01/20/2025 4:04 AM EDT [facility] Platelet Count 399(H) 155 - 369 10*3/uL LAB HEMATOLOGY METHOD 01/20/2025 4:04 AM EDT [facility] MCV 95 79 - 98 fL LAB HEMATOLOGY METHOD 01/20/2025 4:04 AM EDT [facility] MCH 29.4 26.0 - 32.0 pg LAB HEMATOLOGY METHOD 01/20/2025 4:04 AM EDT [facility] MCHC 31.0 30.7 - 35.5 g/dL LAB HEMATOLOGY METHOD 01/20/2025 4:04 AM EDT [facility] RDW 13.1 11.5 - 14.5 % LAB HEMATOLOGY METHOD 01/20/2025 4:04 AM EDT [facility] MPV 9.5 8.8 - 12.5 fL LAB HEMATOLOGY METHOD 01/20/2025 4:04 AM EDT [facility] nRBC 0.0 <=0.0 per 100 WBCs LAB HEMATOLOGY METHOD 01/20/2025 4:04 AM EDT [facility] Blood Venous blood specimen / Unknown Venipuncture / Unknown 01/20/2025 3:40 AM EDT 01/20/2025 3:56 AM EDT us Sachin Garza MD LAB BLOOD ORDERABLES Final R esult Performing Organization Address [facility]/ZIP Co de Phone Number [facility] [address] [place] [address] * Vancomycin, random (01/19/2025 11:48 AM EDT) Vancomycin, Random, Plasma 22.9 ug/mL 01/19/2025 1:05 PM EDT [facility] Blood Venous blood specimen / Unknown Venipuncture / Unknown 01/19/2025 11:48 AM EDT 01/19/2025 11:50 AM EDT us Sachin Garza MD LAB BLOOD ORDERABLES Final R esult [facility] [address] [place] [address] * (ABNORMAL) Basic Metabolic Panel, Plasma (01/18/2025 11:54 PM EDT) Glucose, Plasma 134(H) 74 - 99 mg/dL 01/19/2025 12:45 AM EDT [facility] BUN, Plasma 24(H) 7 - 21 mg/dL 01/19/2025 12:45 AM EDT [facility] Creatinine, Plasma 1.34(H) 0.70 - 1.20 mg/dL 01/19/2025 12:45 AM EDT [facility] BUN/Creatinine Ratio 18 01/19/2025 12:45 AM EDT [facility] Sodium, Plasma 137 136 - 145 mmol/L 01/19/2025 12:45 AM EDT [facility] Potassium, Plasma 4.7 3.6 - 4.9 mmol/L 01/19/2025 12:45 AM EDT [facility] Chloride, Plasma 100 97 - 107 mmol/L 01/19/2025 12:45 AM EDT [facility] CO2, Plasma 24 22 - 29 mmol/L 01/19/2025 12:45 AM EDT [facility] Anion Gap 13 6 - 16 mmol/L 01/19/2025 12:45 AM EDT [facility] Total Calcium, Plasma 9.3 8.9 - 10.2 mg/dL 01/19/2025 12:45 AM EDT [facility] eGFRcr 70.8 mL/min/1.7 3m*2 01/19/2025 12:45 AM EDT [facility] Comment:Reported eGFRcr in m L/min/1.73m2 is based the CKD-EPI 2020 equation that does not use a race coefficient. Blood Venous blood specimen / Unknown Venipuncture / Unknown 01/18/2025 11:54 PM EDT 01/19/2025 12:16 AM EDT us Sachin Garza MD LAB BLOOD ORDERABLES Final R esult [facility] [address] [place] [address] * (ABNORMAL) CBC W/O Differential (01/18/2025 11:54 PM EDT) WBC Count 11.85(H) 3.70 - 10.30 10*3/uL LAB HEMATOLOGY METHOD 01/19/2025 12:20 AM EDT [facility] RBC Count 3.76(L) 4.60 - 6.10 10*6/uL LAB HEMATOLOGY METHOD 01/19/2025 12:20 AM EDT [facility] HGB 11.3(L) 13.7 - 17.5 g/dL LAB HEMATOLOGY METHOD 01/19/2025 12:20 AM EDT [facility] HCT 34.2(L) 40.0 - 51.0 % LAB HEMATOLOGY METHOD 01/19/2025 12:20 AM EDT [facility] Platelet Count 394(H) 155 - 369 10*3/uL LAB HEMATOLOGY METHOD 01/19/2025 12:20 AM EDT [facility] MCV 91 79 - 98 fL LAB HEMATOLOGY METHOD 01/19/2025 12:20 AM EDT [facility] MCH 30.1 26.0 - 32.0 pg LAB HEMATOLOGY METHOD 01/19/2025 12:20 AM EDT [facility] MCHC 33.0 30.7 - 35.5 g/dL LAB HEMATOLOGY METHOD 01/19/2025 12:20 AM EDT [facility] RDW 12.9 11.5 - 14.5 % LAB HEMATOLOGY METHOD 01/19/2025 12:20 AM EDT [facility] MPV 9.5 8.8 - 12.5 fL LAB HEMATOLOGY METHOD 01/19/2025 12:20 AM EDT [facility] nRBC 0.0 <=0.0 per 100 WBCs LAB HEMATOLOGY METHOD 01/19/2025 12:20 AM EDT [facility] Blood Venous blood specimen / Unknown Venipuncture / Unknown 01/18/2025 11:54 PM EDT 01/19/2025 12:13 AM EDT us Sachin Garza MD LAB BLOOD ORDERABLES Final R esult [facility] [address] [place] [address] * Anaerobic Culture (01/18/2025 3:28 PM EDT) Culture No anaerobes isolated 01/23/2025 7:50 AM EDT [facility] Joint Fluid Topography unknown / Unknown Non-blood Collection / Unknown 01/18/2025 3:28 PM EDT 01/18/2025 3:28 PM EDT us Sachin Garza MD LAB MICROBIOLOGY - GENERAL O RDERABLES Final Result Performing Organization Address [facility] Co de Phone Number [facility] [address] [place] [address] * (ABNORMAL) Body Fluid Culture and Gram Stain (01/18/2025 3:28 PM EDT) Culture Heavy Growth 01/20/2025 8:34 AM EDT [facility] Culture Methicillin-Resista nt Staphylococcus aureus(AA) 01/20/2025 8:34 AM EDT [facility] Comment: For susceptibility results refer to: - [id number] The organism value for this result has been updated. These results have been appended to the previously preliminary verified report. Edited result: Previously reported as Staphylococcus aureus on 01/19/2025 at 0933 EDT. Staphylococcus aureus has been updated to reportable. Gram Stain Result Numerous Polymorphonuclear leukocytes 01/20/2025 8:34 AM EDT [facility] Gram Stain Result No organisms seen 01/20/2025 8:34 AM EDT [facility] Joint Fluid Topography unknown / Unknown Non-blood Collection / Unknown 01/18/2025 3:28 PM EDT 01/18/2025 3:28 PM EDT us Sachin Garza MD LAB MICROBIOLOGY - GENERAL O RDERABLES Final Result Performing Organization Address [facility] Co de Phone Number [facility] [address] [place] [address] * Body fluid, cytospin, pathologist interpretation (01/18/2025 3:01 PM EDT) Specimen Type Joint Fluid LAB HEMATOLOGY METHOD 01/20/2025 4:29 PM EDT [facility] Specimen Source, Body Fluid Knee, Left LAB HEMATOLOGY METHOD 01/20/2025 4:29 PM EDT [facility] Clinical Diagnosis, Body Fluid Left lower extremity cellulitis LAB HEMATOLOGY METHOD 01/20/2025 4:29 PM EDT [facility] Interpretation , Body Fluid Bloody specimen Acute and chronic inflammatory cells Correlation with microbiology studies recommended A resident was involved in the service. I attest I examined the relevant preparations for the specimens and confirmed the diagnosis or interpretation. 01/20/2025 4:29 PM EDT [facility] Pathologist Signature, Body Fluid 01/20/2025 4:29 PM EDT [facility] Comment:Reviewed by: Stephanie conti MD LAB CP ASR DISCLAIMER Yes 01/20/2025 4:29 PM EDT [facility] Joint Fluid Structure of left knee region / Unknown 01/18/2025 3:01 PM EDT 01/18/2025 3:28 PM EDT us Sachin Garza MD LAB BODY FLUIDS AND STOOLS O RDERABLES Final Result Performing Organization Address [facility] Co de Phone Number [facility] [address] [place] [address] * Joint Fluid Crystals (01/18/2025 3:01 PM EDT) Crystals, Joint Fluid No Crystals Seen No Crystals Present 01/18/2025 5:28 PM EDT [facility] Joint Fluid Structure of left knee region / Unknown 01/18/2025 3:01 PM EDT 01/18/2025 3:28 PM EDT us Sachin Garza MD LAB BODY FLUIDS AND STOOLS O RDERABLES Final Result Performing Organization Address [facility]/ZIP Co de Phone Number [facility] [address] [place] [address] * (ABNORMAL) Body Fluid Cell Count w/ Diff (01/18/2025 3:01 PM EDT) Color, Body fluid Red LAB HEMATOLOGY METHOD 01/18/2025 11:05 PM EDT [facility] Appearance, Body fluid Cloudy(A) LAB HEMATOLOGY METHOD 01/18/2025 11:05 PM EDT [facility] Volume, Body fluid 3.5 cc LAB HEMATOLOGY METHOD 01/18/2025 11:05 PM EDT [facility] Fluid Container Specimen received in EDTA tube LAB HEMATOLOGY METHOD 01/18/2025 11:05 PM EDT [facility] Red Blood Cell Count, Body fluid 299,000 uL LAB HEMATOLOGY METHOD 01/18/2025 11:05 PM EDT [facility] Total Nucleated Cell Count, Body fluid 873 uL LAB HEMATOLOGY METHOD 01/18/2025 11:05 PM EDT [facility] Neutrophils %, Body fluid 17 % LAB HEMATOLOGY METHOD 01/18/2025 11:05 PM EDT [facility] Lymphocytes %, Body fluid 55 % LAB HEMATOLOGY METHOD 01/18/2025 11:05 PM EDT [facility] Monocytes/Macro phages %, Body fluid 27 % LAB HEMATOLOGY METHOD 01/18/2025 11:05 PM EDT [facility] Eosinophils %, Body fluid 1 % LAB HEMATOLOGY METHOD 01/18/2025 11:05 PM EDT [facility] Lining/Mesothel ial Cells %, Body fluid 0 % LAB HEMATOLOGY METHOD 01/18/2025 11:05 PM EDT [facility] Neutrophils Absolute (PMN), Body fluid 148 uL LAB HEMATOLOGY METHOD 01/18/2025 11:05 PM EDT [facility] Lymphocytes Absolute, Body fluid 480 uL LAB HEMATOLOGY METHOD 01/18/2025 11:05 PM EDT [facility] Monocytes/Macro phages Absolute, Body fluid 236 uL LAB HEMATOLOGY METHOD 01/18/2025 11:05 PM EDT [facility] Eosinophils Absolute, Body fluid 9 uL LAB HEMATOLOGY METHOD 01/18/2025 11:05 PM EDT [facility] Basophils Absolute, Body fluid 0 uL LAB HEMATOLOGY METHOD 01/18/2025 11:05 PM EDT [facility] Lining/Mesothel ial Cells Absolute, Body fluid 0 uL LAB HEMATOLOGY METHOD 01/18/2025 11:05 PM EDT [facility] Comment, Body fluid None LAB HEMATOLOGY METHOD 01/18/2025 11:05 PM EDT [facility] Comment:This is an appended report. These results have been appended to a previously preliminary verified report. Basophils %, Body fluid 0 % LAB HEMATOLOGY METHOD 01/18/2025 11:05 PM EDT [facility] Joint Fluid Structure of left knee region / Unknown 01/18/2025 3:01 PM EDT 01/18/2025 3:28 PM EDT us Sachin Garza MD LAB BODY FLUIDS AND STOOLS ORDERABLES NO SPECIMEN TYPE/SOURCE Final Result Performing Organization Address [facility]/ZIP Co de Phone Number [facility] [address] [place] [address] * Body Fluid Culture and Gram Stain (01/18/2025 12:17 PM EDT) Culture No growth at day 4 2024 11:06 AM EDT [facility] Gram Stain Result No polymorphonuclear leukocytes seen 01/21/2025 11:06 AM EDT [facility] Gram Stain Result No organisms seen 01/21/2025 11:06 AM EDT [facility] Joint Fluid Synovial fluid specimen / Unknown Non-blood Collection / Unknown 01/18/2025 12:17 PM EDT 01/18/2025 3:24 PM EDT Comment:Pre-op diagnosis: Cellulitis of left lower extremity [L03.116] us Dwaine Das DO LAB MICROBIOLOGY - GENERAL ORDERABLES Final Result Performing Organization Address [facility]/ZIP Co de Phone Number [facility] [address] [place] [address] * Joint Infection Panel by PCR (01/18/2025 12:17 PM EDT) Anaerococcus prevotii/vaginalis PCR Result Not Detected Not Detected 01/18/2025 5:28 PM EDT [facility] Clostridium perfringens PCR Result Not Detected Not Detected 01/18/2025 5:28 PM EDT [facility] Cutibacterium avidum/granulosum PCR Result Not Detected Not Detected 01/18/2025 5:28 PM EDT [facility] Enterococcus faecalis PCR Result Not Detected Not Detected 01/18/2025 5:28 PM EDT [facility] Enterococcus faecium PCR Result Not Detected Not Detected 01/18/2025 5:28 PM EDT [facility] Finegoldia magna PCR Result Not Detected Not Detected 01/18/2025 5:28 PM EDT [facility] Parvimonas micra PCR Result Not Detected Not Detected 01/18/2025 5:28 PM EDT [facility] Peptoniphilus PCR Result Not Detected Not Detected 01/18/2025 5:28 PM EDT [facility] Peptostreptococcus anaerobius PCR Result Not Detected Not Detected 01/18/2025 5:28 PM EDT [facility] Staphylococcus aureus PCR Result Not Detected Not Detected 01/18/2025 5:28 PM EDT [facility] Staphylococcus lugdunensis PCR Result Not Detected Not Detected 01/18/2025 5:28 PM EDT [facility] Streptococcus spp PCR Result Not Detected Not Detected 01/18/2025 5:28 PM EDT [facility] Streptococcus agalactiae PCR Result Not Detected Not Detected 01/18/2025 5:28 PM EDT [facility] Streptococcus pneumoniae PCR Result Not Detected Not Detected 01/18/2025 5:28 PM EDT [facility] Streptococcus pyogenes PCR Result Not Detected Not Detected 01/18/2025 5:28 PM EDT [facility] Bacteroides fragilis PCR Result Not Detected Not Detected 01/18/2025 5:28 PM EDT [facility] Citrobacter PCR Result Not Detected Not Detected 01/18/2025 5:28 PM EDT [facility] Enterobacter cloacae complex PCR Result Not Detected Not Detected 01/18/2025 5:28 PM EDT [facility] Escherichia coli PCR Result Not Detected Not Detected 01/18/2025 5:28 PM EDT [facility] Haemophilus influenzae PCR Result Not Detected Not Detected 01/18/2025 5:28 PM EDT [facility] Kingella kingae PCR Result Not Detected Not Detected 01/18/2025 5:28 PM EDT [facility] Klebsiella aerogenes PCR Result Not Detected Not Detected 01/18/2025 5:28 PM EDT [facility] Klebsiella pneumoniae group PCR Result Not Detected Not Detected 01/18/2025 5:28 PM EDT [facility] Morganella morganii PCR Result Not Detected Not Detected 01/18/2025 5:28 PM EDT [facility] Neisseria gonorrhoeae PCR Result Not Detected Not Detected 01/18/2025 5:28 PM EDT [facility] Proteus spp PCR Result Not Detected Not Detected 01/18/2025 5:28 PM EDT [facility] Pseudomonas aeruginosa PCR Result Not Detected Not Detected 01/18/2025 5:28 PM EDT [facility] Salmonella spp PCR Result Not Detected Not Detected 01/18/2025 5:28 PM EDT [facility] Serratia marcescens PCR Result Not Detected Not Detected 01/18/2025 5:28 PM EDT [facility] Nelda PCR Result Not Detected Not Detected 01/18/2025 5:28 PM EDT [facility] Nelda albicans PCR Result Not Detected Not Detected 01/18/2025 5:28 PM EDT [facility] CTXM PCR Result Not Detected Not Detected 01/18/2025 5:28 PM EDT [facility] IMP PCR Result Not Detected Not Detected 01/18/2025 5:28 PM EDT [facility] KPC PCR Result Not Detected Not Detected 01/18/2025 5:28 PM EDT [facility] mecA/C and MREJ (MRSA) PCR Result Not Detected Not Detected 01/18/2025 5:28 PM EDT [facility] NDM PCR Result Not Detected Not Detected 01/18/2025 5:28 PM EDT [facility] OXA-48-like PCR Result Not Detected Not Detected 01/18/2025 5:28 PM EDT [facility] Jarret/B PCR Result Not Detected Not Detected 01/18/2025 5:28 PM EDT [facility] VIM PCR Result Not Detected Not Detected 01/18/2025 5:28 PM EDT [facility] Joint Fluid Synovial fluid specimen / Unknown Non-blood Collection / Unknown 01/18/2025 12:17 PM EDT 01/18/2025 3:24 PM EDT [facility] - 01/18/2025 5:28 PM EDT This [...] MICROBIOLOGY - GENERAL O RDERABLES Final Result [facility] [address] [place] [address] * (ABNORMAL) Tissue Culture and Gram Stain (01/18/2025 10:00 AM EDT) Culture Heavy Growth 01/20/2025 8:34 AM EDT [facility] Culture Methicillin-Resista nt Staphylococcus aureus(AA) JOVANI 01/20/2025 8:34 AM EDT [facility] Comment: The organism value for this result has been updated. These results have been appended to the previously preliminary verified report. Edited result: Previously reported as Staphylococcus aureus on 01/19/2025 at 0914 EDT. Staphylococcus aureus has been updated to reportable. Gram Stain Result Numerous Polymorphonuclear leukocytes(A) 01/20/2025 8:34 AM EDT [facility] Gram Stain Result Rare Gram positive cocci in clusters(A) 01/20/2025 8:34 AM EDT [facility] Tissue Topography unknown [...] aureus Vancomycin JOVANI 1 ug/ml: Susceptible Dwaine [employer] [facility] LAB MICROBIOLOGY - GENERAL ORDERABLES Final Result [facility] [address] [place] [address] * Anaerobic Culture (01/18/2025 10:00 AM EDT) Culture No anaerobes isolated 01/23/2025 7:50 AM EDT [facility] Tissue Topography unknown / Unknown 01/18/2025 10:00 AM EDT 01/18/2025 3:26 PM EDT Comment:Pre-op diagnosis: Cellulitis of left lower extremity [L03.116] [employer] [facility] LAB MICROBIOLOGY - GENERAL ORDERABLES Final Result [facility] [address] [place] [address] * Body fluid, cytospin, pathologist interpretation (01/18/2025 9:57 AM EDT) Specimen Type Cyst Fluid LAB HEMATOLOGY METHOD 01/20/2025 4:28 PM EDT [facility] Specimen Source, Body Fluid Other (specify site) LAB HEMATOLOGY METHOD 01/20/2025 4:28 PM EDT [facility] Clinical Diagnosis, Body Fluid Left lower extremity cyst fluid LAB HEMATOLOGY METHOD 01/20/2025 4:28 PM EDT [facility] Interpretation , Body Fluid No evidence of malignancy Bloody specimen Acute inflammatory cells Correlation with microbiology studies recommended A resident was involved in the service. I attest I examined the relevant preparations for the specimens and confirmed the diagnosis or interpretation. 01/20/2025 4:28 PM EDT [facility] Pathologist Signature, Body Fluid 01/20/2025 4:28 PM EDT [facility] Comment:Reviewed by: Stephanie conti MD LAB CP ASR DISCLAIMER Yes 01/20/2025 4:28 PM EDT [facility] Cyst Fluid Topography unknown / Unknown 01/18/2025 9:57 AM EDT 01/18/2025 3:19 PM EDT Dwaine Nicholsad[facility]iv[facility] LAB BODY FLUIDS AND STOOLS ORDERABLES Final Result [facility] [address] [place] [address] * (ABNORMAL) Body Fluid Cell Count w/ Diff (01/18/2025 9:57 AM EDT) Color, Body fluid Red LAB HEMATOLOGY METHOD 01/18/2025 7:13 PM EDT [facility] Appearance, Body fluid Cloudy(A) LAB HEMATOLOGY METHOD 01/18/2025 7:13 PM EDT [facility] Volume, Body fluid 10.0 cc LAB HEMATOLOGY METHOD 01/18/2025 7:13 PM EDT [facility] Fluid Container Specimen received in miscellaneous container LAB HEMATOLOGY METHOD 01/18/2025 7:13 PM EDT [facility] Red Blood Cell Count, Body fluid 240,000 uL LAB HEMATOLOGY METHOD 01/18/2025 7:13 PM EDT [facility] Comment:Clot present, may af fect results. Test performed by manual method. Total Nucleated Cell Count, Body fluid 83,500 uL LAB HEMATOLOGY METHOD 01/18/2025 7:13 PM EDT [facility] Comment:Clot present, may af fect results. Test performed by manual method. Neutrophils %, Body fluid 98 % LAB HEMATOLOGY METHOD 01/18/2025 7:13 PM EDT [facility] Lymphocytes %, Body fluid 2 % LAB HEMATOLOGY METHOD 01/18/2025 7:13 PM EDT [facility] Monocytes/Macr ophages %, Body fluid 0 % LAB HEMATOLOGY METHOD 01/18/2025 7:13 PM EDT [facility] Eosinophils %, Body fluid 0 % LAB HEMATOLOGY METHOD 01/18/2025 7:13 PM EDT [facility] Lining/Mesothe lial Cells %, Body fluid 0 % LAB HEMATOLOGY METHOD 01/18/2025 7:13 PM EDT [facility] Neutrophils Absolute (PMN), Body fluid 81,830 uL LAB HEMATOLOGY METHOD 01/18/2025 7:13 PM EDT [facility] Lymphocytes Absolute, Body fluid 1,670 uL LAB HEMATOLOGY METHOD 01/18/2025 7:13 PM EDT [facility] Monocytes/Macr ophages Absolute, Body fluid 0 uL LAB HEMATOLOGY METHOD 01/18/2025 7:13 PM EDT [facility] Eosinophils Absolute, Body fluid 0 uL LAB HEMATOLOGY METHOD 01/18/2025 7:13 PM EDT [facility] Basophils Absolute, Body fluid 0 uL LAB HEMATOLOGY METHOD 01/18/2025 7:13 PM EDT [facility] Lining/Mesothe lial Cells Absolute, Body fluid 0 uL LAB HEMATOLOGY METHOD 01/18/2025 7:13 PM EDT [facility] Comment, Body fluid Bacteria seen. LAB HEMATOLOGY METHOD 01/18/2025 7:13 PM EDT [facility] Basophils %, Body fluid 0 % LAB HEMATOLOGY METHOD 01/18/2025 7:13 PM EDT [facility] Cyst Fluid Topography unknown / Unknown 01/18/2025 9:57 AM EDT 01/18/2025 3:19 PM EDT Comment:Pre-op diagnosis: Cellulitis of left lower extremity [L03.116] Dwaine Das DO LAB BODY FLUIDS AND STOOLS ORDERABLES NO SPECIMEN TYPE/SOURCE Final Result Performing Organization Address [facility] Co de Phone Number [facility] [address] [place] [address] * (ABNORMAL) Body Fluid Culture and Gram Stain (01/18/2025 9:57 AM EDT) Culture Heavy Growth 01/20/2025 8:34 AM EDT [facility] Culture Methicillin-Resista nt Staphylococcus aureus(AA) 01/20/2025 8:34 AM EDT [facility] Comment: For susceptibility results refer to: - [id number] The organism value for this result has been updated. These results have been appended to the previously preliminary verified report. Edited result: Previously reported as Staphylococcus aureus on 01/19/2025 at 0916 EDT. Staphylococcus aureus has been updated to reportable. Gram Stain Result Numerous Polymorphonuclear leukocytes(A) 01/20/2025 8:34 AM EDT [facility] Gram Stain Result Moderate Gram positive cocci in clusters(A) 01/20/2025 8:34 AM EDT [facility] Cyst Fluid Topography unknown / Unknown 01/18/2025 9:57 AM EDT 01/18/2025 3:26 PM EDT Comment:Pre-op diagnosis: Cellulitis of left lower extremity [L03.116] [facility] LAB MICROBIOLOGY - GENERAL ORDERABLES Final Result Performing Organization Address [facility] Co de Phone Number [facility] [address] [place] [address] * Anaerobic Culture (01/18/2025 9:57 AM EDT) Culture No anaerobes isolated 01/23/2025 7:50 AM EDT [facility] Cyst Fluid Topography unknown / Unknown 01/18/2025 9:57 AM EDT 01/18/2025 3:26 PM EDT Comment:Pre-op diagnosis: Cellulitis of left lower extremity [L03.116] [facility] [employer] LAB MICROBIOLOGY - GENERAL ORDERABLES Final Result Performing Organization Address [facility]/ZIP Co de Phone Number [facility] [address] [place] [address] * Methicillin Resistant Staphylococcus aureus (MRSA) by PCR (01/18/2025 7:43 AM EDT) Pathologist [facility] Methicillin Resistant Staphylococcus aureus (MRSA) by PCR Not Detected Not Detected 01/18/2025 9:36 AM EDT [facility] Swab Both anterior nares / Unknown Non-blood Collection / Unknown 01/18/2025 7:43 AM EDT 01/18/2025 8:19 AM EDT Narrative [facility] - 01/18/2025 9:36 [...] RDERABLES Final Result Performing Organization Address [facility] Co de Phone Number [facility] [address] [place] [address] * (ABNORMAL) Basic metabolic panel (01/18/2025 12:18 AM EDT) Pathologist [facility] Glucose, Plasma 105(H) 74 - 99 mg/dL 01/18/2025 1:30 AM EDT [facility] BUN, Plasma 14 7 - 21 mg/dL 01/18/2025 1:30 AM EDT [facility] Creatinine, Plasma 0.80 0.70 - 1.20 mg/dL 01/18/2025 1:30 AM EDT [facility] BUN/Creatinine Ratio 18 01/18/2025 1:30 AM EDT [facility] Sodium, Plasma 137 136 - 145 mmol/L 01/18/2025 1:30 AM EDT [facility] Potassium, Plasma 4.3 3.6 - 4.9 mmol/L 01/18/2025 1:30 AM EDT [facility] Chloride, Plasma 100 97 - 107 mmol/L 01/18/2025 1:30 AM EDT [facility] CO2, Plasma 26 22 - 29 mmol/L 01/18/2025 1:30 AM EDT [facility] Anion Gap 11 6 - 16 mmol/L 01/18/2025 1:30 AM EDT [facility] Total Calcium, Plasma 9.0 8.9 - 10.2 mg/dL 01/18/2025 1:30 AM EDT [facility] eGFRcr 118.4 mL/min/1.7 3m*2 01/18/2025 1:30 AM EDT [facility] Comment:Reported eGFRcr in m L/min/1.73m2 is based the CKD-EPI 2020 equation that does not use a race coefficient. Blood Venous blood specimen / Unknown Venipuncture / Unknown 01/18/2025 12:18 AM EDT 01/18/2025 12:27 AM EDT us Sachin Garza MD LAB BLOOD ORDERABLES Final R esult [facility] [address] [place] [address] * (ABNORMAL) CBC W/O Differential (01/18/2025 12:18 AM EDT) WBC Count 8.77 3.70 - 10.30 10*3/uL LAB HEMATOLOGY METHOD 01/18/2025 12:36 AM EDT [facility] RBC Count 3.94(L) 4.60 - 6.10 10*6/uL LAB HEMATOLOGY METHOD 01/18/2025 12:36 AM EDT [facility] HGB 11.7(L) 13.7 - 17.5 g/dL LAB HEMATOLOGY METHOD 01/18/2025 12:36 AM EDT [facility] HCT 37.1(L) 40.0 - 51.0 % LAB HEMATOLOGY METHOD 01/18/2025 12:36 AM EDT [facility] Platelet Count 347 155 - 369 10*3/uL LAB HEMATOLOGY METHOD 01/18/2025 12:36 AM EDT [facility] MCV 94 79 - 98 fL LAB HEMATOLOGY METHOD 01/18/2025 12:36 AM EDT [facility] MCH 29.7 26.0 - 32.0 pg LAB HEMATOLOGY METHOD 01/18/2025 12:36 AM EDT [facility] MCHC 31.5 30.7 - 35.5 g/dL LAB HEMATOLOGY METHOD 01/18/2025 12:36 AM EDT [facility] RDW 13.1 11.5 - 14.5 % LAB HEMATOLOGY METHOD 01/18/2025 12:36 AM EDT [facility] MPV 9.5 8.8 - 12.5 fL LAB HEMATOLOGY METHOD 01/18/2025 12:36 AM EDT [facility] nRBC 0.0 <=0.0 per 100 WBCs LAB HEMATOLOGY METHOD 01/18/2025 12:36 AM EDT [facility] Blood Venous blood specimen / Unknown Venipuncture / Unknown 01/18/2025 12:18 AM EDT 01/18/2025 12:29 AM EDT us Sachin Garza MD LAB BLOOD ORDERABLES Final R esult [facility] [address] [place] [address] * Vancomycin, Peak, Plasma Please draw ~2 hours after 1000 dose of vancomycin on Monday finishes infusing. Consider obtaining level via peripheral stick. If peripheral stick is not feasible, please ensure that line is flushed well prior to drawing l... (01/17/2025 2:03 PM EDT) Vancomycin, Peak, Plasma 22.0 20.0 - 40.0 ug/mL 01/17/2025 3:01 PM EDT [facility] Blood Venous blood specimen / Unknown Venipuncture / Unknown 01/17/2025 2:03 PM EDT 01/17/2025 2:32 PM EDT Narrative [facility] - 01/17/2025 3:01 PM EDT Therapeutic Peak level: 20-40ug/mL Supra-therapeutic Peak level: >40 ug/mL us Sachin Garza MD LAB BLOOD ORDERABLES Final R esult Performing Organization Address [facility] Co de Phone Number [facility] [address] [place] [address] * Vancomycin, Trough, Plasma Please draw ~30 minutes prior to dose due at 1000 on Monday. Please do NOT hold dose awaiting level to return. Consider obtaining level via peripheral stick. If peripheral stick is not feasible, please ensure that line ... (01/17/2025 9:53 AM EDT) Vancomycin, Trough, Plasma 12.5 10.0 - 20.0 ug/mL 01/17/2025 10:24 AM EDT [facility] Blood Venous blood specimen / Unknown Venipuncture / Unknown 01/17/2025 9:53 AM EDT 01/17/2025 9:57 AM EDT Narrative [facility] - 01/17/2025 10:24 AM EDT Therapeutic Trough level: 10-20ug/mL Supra-therapeutic Trough level: >20 ug/mL Sachin Garza MD LAB BLOOD ORDERABLES Final R esult Performing Organization Address [facility] Co de Phone Number [facility] [address] [place] [address] * (ABNORMAL) Basic metabolic panel (01/17/2025 4:05 AM EDT) Glucose, Plasma 117(H) 74 - 99 mg/dL 01/17/2025 5:16 AM EDT [facility] BUN, Plasma 13 7 - 21 mg/dL 01/17/2025 5:16 AM EDT [facility] Creatinine, Plasma 0.75 0.70 - 1.20 mg/dL 01/17/2025 5:16 AM EDT [facility] BUN/Creatinine Ratio 17 01/17/2025 5:16 AM EDT [facility] Sodium, Plasma 135(L) 136 - 145 mmol/L 01/17/2025 5:16 AM EDT [facility] Potassium, Plasma 4.5 3.6 - 4.9 mmol/L 01/17/2025 5:16 AM EDT [facility] Chloride, Plasma 100 97 - 107 mmol/L 01/17/2025 5:16 AM EDT [facility] CO2, Plasma 25 22 - 29 mmol/L 01/17/2025 5:16 AM EDT [facility] Anion Gap 10 6 - 16 mmol/L 01/17/2025 5:16 AM EDT [facility] Total Calcium, Plasma 9.1 8.9 - 10.2 mg/dL 01/17/2025 5:16 AM EDT [facility] eGFRcr 120.7 mL/min/1.7 3m*2 01/17/2025 5:16 AM EDT [facility] Comment:Reported eGFRcr in m L/min/1.73m2 is based the CKD-EPI 2020 equation that does not use a race coefficient. Blood Venous blood specimen / Unknown Venipuncture / Unknown 01/17/2025 4:05 AM EDT 01/17/2025 4:35 AM EDT us Sachin Garza MD LAB BLOOD ORDERABLES Final R esult [facility] [address] [place] [address] * [place] Extremity Limited MSK or Soft [...] - 99 mg/dL 01/16/2025 5:15 AM EDT [facility] BUN, Plasma 12 7 - 21 mg/dL 01/16/2025 5:15 AM EDT [facility] Creatinine, Plasma 0.66(L) 0.70 - 1.20 mg/dL 01/16/2025 5:15 AM EDT [facility] BUN/Creatinine Ratio 18 01/16/2025 5:15 AM EDT [facility] Sodium, Plasma 136 136 - 145 mmol/L 01/16/2025 5:15 AM EDT [facility] Potassium, Plasma 4.5 3.6 - 4.9 mmol/L 01/16/2025 5:15 AM EDT [facility] Chloride, Plasma 100 97 - 107 mmol/L 01/16/2025 5:15 AM EDT [facility] CO2, Plasma 26 22 - 29 mmol/L 01/16/2025 5:15 AM EDT [facility] Anion Gap 10 6 - 16 mmol/L 01/16/2025 5:15 AM EDT [facility] Total Calcium, Plasma 8.8(L) 8.9 - 10.2 mg/dL 01/16/2025 5:15 AM EDT [facility] eGFRcr 125.4 mL/min/1.7 3m*2 01/16/2025 5:15 AM EDT [facility] Comment:Reported eGFRcr in m L/min/1.73m2 is based the CKD-EPI 2020 equation that does not use a race coefficient. Blood Venous blood specimen / Unknown Venipuncture / Unknown 01/16/2025 4:31 AM EDT 01/16/2025 4:46 AM EDT us Jeffrey Matute MD LAB BLOOD ORDERABLES Final Re sult [facility] [address] [place] [address] * Prothrombin Time/INR (01/16/2025 4:31 AM EDT) Prothrombin Time 12.9 12.0 - 14.3 sec 01/16/2025 4:46 AM EDT [facility] INR 1.0 0.9 - 1.1 01/16/2025 4:46 AM EDT [facility] Blood Venous blood specimen / Unknown Venipuncture / Unknown 01/16/2025 4:31 AM EDT 01/16/2025 4:33 AM EDT Narrative [facility] - 01/16/2025 4:46 AM EDT [...] MD LAB BLOOD ORDERABLES Final Re sult [facility] [address] [place] [address] * (ABNORMAL) CBC W/O Differential (01/16/2025 4:31 AM EDT) WBC Count 17.78(H) 3.70 - 10.30 10*3/uL LAB HEMATOLOGY METHOD 01/16/2025 4:36 AM EDT [facility] RBC Count 4.14(L) 4.60 - 6.10 10*6/uL LAB HEMATOLOGY METHOD 01/16/2025 4:36 AM EDT [facility] HGB 12.4(L) 13.7 - 17.5 g/dL LAB HEMATOLOGY METHOD 01/16/2025 4:36 AM EDT [facility] HCT 37.6(L) 40.0 - 51.0 % LAB HEMATOLOGY METHOD 01/16/2025 4:36 AM EDT [facility] Platelet Count 359 155 - 369 10*3/uL LAB HEMATOLOGY METHOD 01/16/2025 4:36 AM EDT [facility] MCV 91 79 - 98 fL LAB HEMATOLOGY METHOD 01/16/2025 4:36 AM EDT [facility] MCH 30.0 26.0 - 32.0 pg LAB HEMATOLOGY METHOD 01/16/2025 4:36 AM EDT [facility] MCHC 33.0 30.7 - 35.5 g/dL LAB HEMATOLOGY METHOD 01/16/2025 4:36 AM EDT [facility] RDW 13.2 11.5 - 14.5 % LAB HEMATOLOGY METHOD 01/16/2025 4:36 AM EDT [facility] MPV 9.3 8.8 - 12.5 fL LAB HEMATOLOGY METHOD 01/16/2025 4:36 AM EDT [facility] nRBC 0.0 <=0.0 per 100 WBCs LAB HEMATOLOGY METHOD 01/16/2025 4:36 AM EDT [facility] Blood Venous blood specimen / Unknown Venipuncture / Unknown 01/16/2025 4:31 AM EDT 01/16/2025 4:33 AM EDT us Jeffrey Matute MD LAB BLOOD ORDERABLES Final Re sult [facility] [address] [place] [address] * CT Tibia Fibula Left w IV [...] 01/16/2025 1:47 AM Final report signed by Tnio Martinez MD on 01/16/2025 2:31 AM Narrative [...] at day 5 01/21/2025 2:02 AM EDT [facility] Blood Venous blood specimen / Unknown Venipuncture / Unknown 01/16/2025 12:24 AM EDT 01/16/2025 1:12 AM EDT Narrative [facility] - 01/21/2025 2:02 AM EDT Low blood volume submitted, results may be compromised Gus Vigil APRN LAB MICROBIOLOGY - GENER AL ORDERABLES Final Result [facility] [address] [place] [address] * XR Chest 1 View (01/15/2025 11:21 [...] MD on 01/15/2025 11:40 PM Gus Vigil LUGGER IMG XR PROCEDURES Final Result * XR [...] on 01/15/2025 11:40 PM Gus Soares Niall LUGGER IMG XR PROCEDURES Final Result * Type [...] ORDERA BLES Final Result [facility] [address] [place] [address], * ECG Adult (01/15/2025 10:46 PM EDT) EKG DIAGNOSIS CLASS Normal MUSE ECG Ventricular Rate 92 BPM MUSE ECG Atrial Rate 92 BPM MUSE ECG DE Interval 122 ms MUSE ECG QRSD Interval 102 ms MUSE ECG QT Interval 350 ms MUSE ECG QTC Interval 432 ms MUSE ECG P [place] 56 degrees MUSE ECG R [place] 44 degrees MUSE ECG T Wave [place] 57 degrees MUSE ECG Diagnosis Normal sinus [...] at day 5 01/20/2025 11:01 PM EDT [facility] Blood Structure of antecubital vein / Unknown Venipuncture / Unknown 01/15/2025 10:11 PM EDT 01/15/2025 10:19 PM EDT Narrative [facility] - 01/20/2025 11:01 PM EDT Low blood volume submitted, results may be compromised [facility] APRN LAB MICROBIOLOGY - GENER AL ORDERABLES Final Result [facility] [address] [place] [address] * (ABNORMAL) Sed rate, automated (01/15/2025 10:11 PM EDT) Pathologist [facility] Sedimentation Rate 46(H) <15 mm/hr 2024 10:34 PM EDT [facility] Blood Venous blood specimen / Unknown Venipuncture / Unknown 01/15/2025 10:11 PM EDT 01/15/2025 10:12 PM EDT [facility] Niall LUGGER LAB BLOOD ORDERABLES Fin al Result Performing Organization Address City/[facility]/ZIP Co de Phone Number [facility] [address] [place] [address] * (ABNORMAL) C-Reactive protein (01/15/2025 10:11 PM EDT) CRP, Plasma 91.9(H) <=8.0 mg/L 01/15/2025 10:32 PM EDT [facility] Blood Venous blood specimen / Unknown Venipuncture / Unknown 01/15/2025 10:11 PM EDT 01/15/2025 10:12 PM EDT Narrative [facility] - 01/15/2025 10:32 PM EDT This CRP test is appropriate for assessment of infection, systemic inflammation and/or tissue injury. To assess cardiovascular disease risk order high sensitivity CRP (CRPH). Gus Vigil LUGGER LAB BLOOD ORDERABLES Fin al Result [facility] [address] [place] [address] * (ABNORMAL) Blood gas panel, venous (01/15/2025 10:11 PM EDT) pH, Venous 7.39 7.32 - 7.43 LAB HEMATOLOGY METHOD 01/15/2025 10:14 PM EDT [facility] pCO2, Venous 47 40 - 55 mmHg LAB HEMATOLOGY METHOD 01/15/2025 10:14 PM EDT [facility] pO2, Venous 34 25 - 40 mmHg LAB HEMATOLOGY METHOD 01/15/2025 10:14 PM EDT [facility] SO2, Measured, Venous 68 65 - 80 % LAB HEMATOLOGY METHOD 01/15/2025 10:14 PM EDT [facility] Base Excess, Venous 2.8 -2.0 - 3.0 mmol/L LAB HEMATOLOGY METHOD 01/15/2025 10:14 PM EDT [facility] Bicarbonate, Calculated, Venous 29(H) 22 - 26 mmol/L LAB HEMATOLOGY METHOD 01/15/2025 10:14 PM EDT [facility] Hematocrit, Whole Blood 40.4 40.0 - 51.0 % LAB HEMATOLOGY METHOD 01/15/2025 10:14 PM EDT [facility] Sodium, Whole Blood 135(L) 136 - 145 mmol/L LAB HEMATOLOGY METHOD 01/15/2025 10:14 PM EDT [facility] Potassium, Whole Blood 4.3 3.6 - 4.9 mmol/L LAB HEMATOLOGY METHOD 01/15/2025 10:14 PM EDT [facility] Chloride, Whole Blood 99 97 - 107 mmol/L LAB HEMATOLOGY METHOD 01/15/2025 10:14 PM EDT [facility] Glucose, Whole Blood 110(H) 74 - 99 mg/dL LAB HEMATOLOGY METHOD 01/15/2025 10:14 PM EDT [facility] Lactate, Venous, Whole Blood 1.1 0.5 - 2.2 mmol/L LAB HEMATOLOGY METHOD 01/15/2025 10:14 PM EDT [facility] Ionized Calcium, Whole Blood 4.6 4.6 - 5.1 mg/dL LAB HEMATOLOGY METHOD 01/15/2025 10:14 PM EDT [facility] Blood Venous blood specimen / Unknown Venipuncture / Unknown 01/15/2025 10:11 PM EDT 01/15/2025 10:12 PM EDT Gus Vigil APRN LAB BLOOD ORDERABLES Fin al Result [facility] [address] [place] [address] * (ABNORMAL) CMP (01/15/2025 10:11 PM EDT) Glucose, Plasma 116(H) 74 - 99 mg/dL 01/15/2025 10:32 PM EDT [facility] BUN, Plasma 14 7 - 21 mg/dL 01/15/2025 10:32 PM EDT [facility] Creatinine, Plasma 0.78 0.70 - 1.20 mg/dL 01/15/2025 10:32 PM EDT [facility] BUN/Creatinine Ratio 18 01/15/2025 10:32 PM EDT [facility] Sodium, Plasma 134(L) 136 - 145 mmol/L 01/15/2025 10:32 PM EDT [facility] Potassium, Plasma 4.6 3.6 - 4.9 mmol/L 01/15/2025 10:32 PM EDT [facility] Chloride, Plasma 97 97 - 107 mmol/L 01/15/2025 10:32 PM EDT [facility] CO2, Plasma 24 22 - 29 mmol/L 01/15/2025 10:32 PM EDT [facility] Anion Gap 13 6 - 16 mmol/L 01/15/2025 10:32 PM EDT [facility] Total Calcium, Plasma 8.7(L) 8.9 - 10.2 mg/dL 01/15/2025 10:32 PM EDT [facility] Total Protein 6.5 6.3 - 7.9 g/dL 01/15/2025 10:32 PM EDT [facility] Albumin, Plasma 3.7 3.5 - 5.2 g/dL 01/15/2025 10:32 PM EDT [facility] AST, Plasma 23 10 - 50 U/L 01/15/2025 10:32 PM EDT [facility] ALT, Plasma 52(H) 10 - 50 U/L 01/15/2025 10:32 PM EDT [facility] Alkaline Phosphatase, Plasma 124(H) 40 - 115 U/L 01/15/2025 10:32 PM EDT [facility] Total Bilirubin, Plasma 0.3 0.2 - 1.1 mg/dL 01/15/2025 10:32 PM EDT [facility] eGFRcr 119.3 mL/min/1.7 3m*2 01/15/2025 10:32 PM EDT [facility] Comment:Reported eGFRcr in m L/min/1.73m2 is based the CKD-EPI 2020 equation that does not use a race coefficient. Blood Venous blood specimen / Unknown Venipuncture / Unknown 01/15/2025 10:11 PM EDT 01/15/2025 10:12 PM EDT Gus Vigil LUGGER LAB BLOOD ORDERABLES Fin al Result [facility] [address] [place] [address] * PT-INR (01/15/2025 10:11 PM EDT) Prothrombin Time 12.5 12.0 - 14.3 sec 01/15/2025 10:28 PM EDT [facility] INR 1.0 0.9 - 1.1 01/15/2025 10:28 PM EDT [facility] Blood Venous blood specimen / Unknown Venipuncture / Unknown 01/15/2025 10:11 PM EDT 01/15/2025 10:12 PM EDT Narrative [facility] - 01/15/2025 10:28 [...] of recurrent [place] INR 2.5 to 3.5 Gus Vigil LUGGER LAB BLOOD ORDERABLES Fin al Result [facility] [address] [place] [address] * (ABNORMAL) CBC w/diff (01/15/2025 10:11 PM EDT) WBC Count 19.24(H) 3.70 - 10.30 10*3/uL LAB HEMATOLOGY METHOD 01/15/2025 10:14 PM EDT [facility] RBC Count 4.33(L) 4.60 - 6.10 10*6/uL LAB HEMATOLOGY METHOD 01/15/2025 10:14 PM EDT [facility] HGB 13.0(L) 13.7 - 17.5 g/dL LAB HEMATOLOGY METHOD 01/15/2025 10:14 PM EDT [facility] HCT 39.3(L) 40.0 - 51.0 % LAB HEMATOLOGY METHOD 01/15/2025 10:14 PM EDT [facility] Platelet Count 383(H) 155 - 369 10*3/uL LAB HEMATOLOGY METHOD 01/15/2025 10:14 PM EDT [facility] MCV 91 79 - 98 fL LAB HEMATOLOGY METHOD 01/15/2025 10:14 PM EDT [facility] MCH 30.0 26.0 - 32.0 pg LAB HEMATOLOGY METHOD 01/15/2025 10:14 PM EDT [facility] MCHC 33.1 30.7 - 35.5 g/dL LAB HEMATOLOGY METHOD 01/15/2025 10:14 PM EDT [facility] RDW 13.2 11.5 - 14.5 % LAB HEMATOLOGY METHOD 01/15/2025 10:14 PM EDT [facility] MPV 9.2 8.8 - 12.5 fL LAB HEMATOLOGY METHOD 01/15/2025 10:14 PM EDT [facility] nRBC 0.0 <=0.0 per 100 WBCs LAB HEMATOLOGY METHOD 01/15/2025 10:14 PM EDT [facility] Differential Type Automated LAB HEMATOLOGY METHOD 01/15/2025 10:14 PM EDT [facility] Neutrophils % 78 % LAB HEMATOLOGY METHOD 01/15/2025 10:14 PM EDT [facility] Lymphocytes % 12 % LAB HEMATOLOGY METHOD 01/15/2025 10:14 PM EDT [facility] Monocytes % 8 % LAB HEMATOLOGY METHOD 01/15/2025 10:14 PM EDT [facility] Eosinophils % 1 % LAB HEMATOLOGY METHOD 01/15/2025 10:14 PM EDT [facility] Basophils % 0 % LAB HEMATOLOGY METHOD 01/15/2025 10:14 PM EDT [facility] Immature Granulocytes % 1 % LAB HEMATOLOGY METHOD 01/15/2025 10:14 PM EDT [facility] Neutrophils Absolute 15.11(H) 1.60 - 6.10 10*3/uL LAB HEMATOLOGY METHOD 01/15/2025 10:14 PM EDT [facility] Lymphocytes Absolute 2.34 1.20 - 3.90 10*3/uL LAB HEMATOLOGY METHOD 01/15/2025 10:14 PM EDT [facility] Monocytes Absolute 1.46(H) 0.30 - 0.90 10*3/uL LAB HEMATOLOGY METHOD 01/15/2025 10:14 PM EDT [facility] Eosinophils Absolute 0.13 0.00 - 0.50 10*3/uL LAB HEMATOLOGY METHOD 01/15/2025 10:14 PM EDT [facility] Basophils Absolute 0.06 0.00 - 0.10 10*3/uL LAB HEMATOLOGY METHOD 01/15/2025 10:14 PM EDT [facility] Immature Granulocytes Absolute 0.14(H) 0.00 - 0.06 10*3/uL LAB HEMATOLOGY METHOD 01/15/2025 10:14 PM EDT [facility] Blood Venous blood specimen / Unknown Venipuncture / Unknown 01/15/2025 10:11 PM EDT 01/15/2025 10:12 PM EDT [facility] - 01/15/2025 10:14 PM EDT Therapeutic decision making should be based on absolute values, rather than percentages. Gus Vigil YUN LAB BLOOD ORDERABLES Buck al Result [facility] [address] [place] [address] documented in this encounter Visit Diagnoses Diagnosis Cellulitis of leg, left- Primary Sepsis following procedure, initial encounter ([facility]) Cellulitis of left lower extremity Acute postoperative pain Other acute postoperative pain Closed fracture of left tibial plateau with routine healing, subsequent encounter Cellulitis of leg, left Cellulitis of left lower extremity Sepsis following procedure ([facility]) Closed fracture of left tibial plateau Closed fracture of left tibial plateau with routine healing, subsequent encounter documented in this encounter Admitting Diagnoses Diagnosis Cellulitis of leg, left Cellulitis of left lower extremity Sepsis following procedure ([facility]) Closed fracture of [...] Routine 0820 (Not Given - Provider: Alem Witt, SHEREEN - Reason: Hold for condition: must add comment - Comment: patient going to OR today)0924 (OCT Hold - Provider: Automatic Transfer Provider - Reason: Patient in procedure)121 ([facility] Unhold - Provider: Automatic Transfer Provider)2001 (Given - Provider: Taryn Miranda RN) 900 (Given - Provider: Katalina Martinez, SHEREEN)2106 (Given - Provider: Taryn Miranda RN) 0848 (Given - Provider: Leigh Rg, SHEREEN) mupirocin (Bactroban) 2 % ointment 1 Application Each Nostril, 2 times daily, 10 doses, First dose on Mon01/20/25 at 0945, Last dose on Mon01/24/25 at 2100, Routine 0924 ([facility] Hold - Provider: Automatic Transfer Provider - Reason: Patient in procedure)0945 (Dose Auto Held - Provider: Automatic Transfer Provider)121 ([facility] Unhold - Provider: Automatic Transfer Provider)2002 (Given - Provider: Taryn Miranda RN) 900 (Given - Provider: Katalina Martinez, SHEREEN)2107 (Given - Provider: Taryn Miranda RN) 0847 (Given - Provider: Leigh Rg, SHEREEN) nicotine (Nicoderm CQ) 21 MG/24HR patch 1 patch 1 patch, Transdermal, Daily, First dose on Mon01/17/25 at 1215, Until Discontinued, Routine 0924 ([facility] Hold - Provider: Automatic Transfer Provider - Reason: Patient in procedure)121 ([facility] Unhold - Provider: Automatic Transfer Provider)1603 (Medication Applied - Provider: Alem Witt RN - Comment: left shoulder) 0901 (Medication Applied - Provider: Katalina Martinez RN) [...] procedure)1216 ([facility] Unhold - Provider: Automatic Transfer Provider)1630 [...] no bowel movement for 48 hours 0924 ([facility] Hold - Provider: Automatic Transfer Provider - Reason: Patient in procedure)1216 ([facility] Unhold - Provider: Automatic Transfer Provider) naloxone (Narcan) injection 0.08 mg 0.08 mg, Intravenous, As needed, Starting on Sneha 01/16/25 at 0753, Until Mon01/22/25 at 1922, Routine, respiratory depression, every 2 minutes 0924 ([facility] Hold - Provider: Automatic Transfer Provider - Reason: Patient in procedure)1216 ([facility] Unhold - Provider: Automatic Transfer Provider) [...] Mon01/22/25 at 1922, Routine, nausea, vomiting 0924 ([facility] Hold - Provider: Automatic Transfer Provider - Reason: Patient in procedure)121 ([facility] Unhold - Provider: Automatic Transfer Provider) [...] documented as of this encounter Care Teams Administrative Director Relationship Specialty Start Date End Date Renetta Pardo APRN [address] [place] [address] [place] [address] PCP - General 09/09/23 documented as of this encounter
--- OUTSIDE RECORDS SUMMARY | 2025-02-03 08:10 | XMS_ITS | Encounter Summary ---
Author Organization Healthcare Address [address] [place] [address] Care Team Providers Care Market Garden Worker Name Role Phone EdvinRenetta Madhuri MALCOLM Primary Care Provider +1 -[phone] Reason for Visit * Reason Comments Post-op Encounter Details Date Type Department Care Team (Late st Contact Info) Description 02/03/2025 8:10 AM EDT Office Visit [facility] Orthopaedic Surgery & Sports Medicine [address], 1[address] [place] [address] Lawrence Hayes MD [address] [place] [address] Closed fracture of left tibial [...] drink first t traci in the morning (EYE-BRONZE PLATER) to steady your nerves or to get rid of a hangover? 0 09/10/2023 CAGE Questionnaire Score 0 024 Utilities Answer Date Recorded In the past 12 months has th [employer], gas, oil, or water [employer] threatened to shut off services in your [...] 7:41 AM EDT documented in this encounter Plan of Treatment Upcoming Encounters Date Type Department Care Team (Late st Contact Info) Description 02/11/2025 1:00 PM EDT Office Visit [facility] [address] [place] [address] Ary Santiago, IT GENERALIST [address] [facility] [address] [place] [address] 02/17/2025 8:40 AM EDT Appointment [facility] Radiology [address], 1st [place] [address] 02/17/2025 9:20 AM EDT Office Visit [facility] Orthopaedic Surgery & Sports Medicine [address], 1[address] [place] [address] Lawrence Hayes MD [address] [place] [address] 03/03/2025 1:00 PM EDT Office Visit [facility] [address] [place] [address] Ary Santiago, IT GENERALIST [address] [facility] 100 [place] [address] Scheduled Orders Name Type Priority [...] documented as of this encounter Care Teams Market Garden Worker Relationship Specialty Start Date End Date Renetta Pardo, IT GENERALIST [address] [place] [address] Dr Garcia [address] [place] [address] PCP - General 09/09/23 documented as of this encounter
[2025-02-03 10:38] VITALS: BMI 42.7
[2025-02-03 10:47] LABS: Basophils # 0.1 K/mm3 (0-0.2); Basophils % 0.8 % (0.1-2.0); Eosinophils # 0.2 Kmm3 (0.0-0.4); Eosinophils % 2.1 % (0.1-12.0); Hematocrit 38.1 % (42.0-52.0); Hemoglobin 12.5 g/dL (14.1-18.0); Immature Granulocytes # 0.08 10^3uL; Immature Granulocytes % 0.8 %; Lymphocytes # 2.6 K/mm3 (0.7-4.5); Lymphocytes % 25.1 % (10-50); Mean Corpuscular HGB Conc 32.8 g/dL (31.8-35.4); Mean Corpuscular Hemoglobin 30.3 pg (27.0-31.2); Mean Corpuscular Volume 92.3 fl (80-94); Mean Platelet Volume 9.3 fl (7.4-10.4); Monocytes # 0.7 K/mm3 (0.1-1.0); Monocytes % 6.5 % (1.7-9.3); Neutrophils # 6.8 K/mm3 (1.8-7.8); Neutrophils % 64.7 % (37.0-80.0); Nucleated Red Blood Cells # 0 10^3/uL; Nucleated Red Blood Cells % 0 %; Platelet Count 374 K/mm3 (142-424); Red Blood Count 4.13 M/mm3 (4.60-6.20); Red Cell Distribution Width 12.8 % (11.5-17.5); Red Cell Distribution Width-SD 43.2 fL; White Blood Count 10.5 K/mm3 (4.8-10.8)
[2025-02-03 10:53] LABS: Albumin Level 4.1 g/dl (3.5-5.0)
[2025-02-03 10:55] LABS: Blood Urea Nitrogen 19 mg/dl (9-20); Creatinine Clearance Estimated 120 mL/min (50-200); Estimated Glomerular Filt Rate 85 ml/min (>60); GFR (African American) 103 ML/MIN (>60); Total Protein,Serum 7.5 g/dl (6.3-8.2)
[2025-02-03 10:56] LABS: Alanine Aminotransferase 44 U/L (12-78); Alkaline Phosphatase 114 U/L (38-126); Aspartate Amino Transferase 34 U/L (17-59); Bilirubin,Direct 0.1 mg/dl (0.0-0.4); Bilirubin,Indirect 0.1 mg/dL (0.0-0.9); Bilirubin,Total 0.2 mg/dl (0.2-1.3); Creatine Kinase 92 U/L (55-170)
[2025-02-03 11:02] VITALS: BP 145/63; PULSE 72; RESP 20; O2SAT 97
--- OUTSIDE RECORDS SUMMARY | 2025-02-03 11:09 | XMS_ITS | Encounter Summary ---
Author Organization Healthcare Address [address] [place] [address] Care Team Providers Care Forge Press Operator Name Role Phone EdvinCheloRenettagerald Dhaliwal APRN Primary Care Provider +1 -[phone] Encounter Details Date Type Department Care Team ([facility] st Contact Info) Description 12/31/2024 Orders Only External Location [address] [place] [address] Mitchell Mosley PA [address] [place], [place] [id number] Social History Tobacco Use Types Packs/Day Years [...] in a fci (including now)? No 09/12/2023 CAGE ASSESSMENT Answer [...] drink first t traci in the morning (EYE-DESTINATION IMAGINATION COORDINATOR) to steady your nerves or to get rid of a hangover? 0 09/10/2023 CAGE Questionnaire Score 0 024 Utilities Answer Date Recorded In the past 12 months has th e [employer], gas, oil, or water company threatened to [...] Description 02/11/2025 1:00 PM EDT Office Visit [facility] [address] [place] [address] Ary Santiago, YUN [address] [facility] 100 [place] [address] 02/17/2025 8:40 AM EDT Appointment [facility] Radiology [address], 1st [place] [address] 02/17/2025 9:20 AM EDT Office Visit [facility] Orthopaedic Surgery & Sports Medicine [address], 1[address] [place] [address] Lawrence Hayes MD [address] [place] [address] 03/03/2025 1:00 PM EDT Office Visit [address] [address] Ary Santiago, YUN [address] [facility] 100 [place] [address] documented as of this encounter [...] documented as of this encounter Care Teams Forge Press Operator Relationship Specialty Start Date End Date Renetta Pardo, YUN [address] [place] [address] [place] [address] PCP - General 09/09/23 documented as of this encounter
--- OUTSIDE RECORDS SUMMARY | 2025-02-03 11:09 | XMS_ITS | Encounter Summary ---
Author Organization Healthcare Address [address] [place] [address] Care Team Providers Care Systems Mechanic Name Role Phone EdvinCheloRenettagerald Dhaliwal APRN Primary Care Provider +1 -[phone] Encounter Details Date Type Department Care Team ([facility] st Contact Info) Description 12/31/2024 Orders Only External Location 800 [place] [address] Mitchell Mosley PA [address] [place], [place] [id number] Social History Tobacco Use Types Packs/Day Years [...] a nursing home (including now)? No 09/12/2023 CAGE ASSESSMENT [...] drink first t traci in the morning (EYE-MONOGRAM MAKER) to steady your nerves or to get rid of a hangover? 0 09/10/2023 CAGE Questionnaire Score 0 024 Utilities Answer Date Recorded In the past 12 months has th e [employer], gas, oil, or water company threatened to [...] Description 02/11/2025 1:00 PM EDT Office Visit [facility] [address] [place] [address] Ary Santiago, YUN 310 [facility] 100 [place] [address] 02/17/2025 8:40 AM EDT Appointment [facility] Radiology [address], 1st [place] [address] 02/17/2025 9:20 AM EDT Office Visit [facility] Orthopaedic Surgery & Sports Medicine [address], 1[address] Floor [address] [place] [address] Lawrence Hayes MD [address] [place] [address] 03/03/2025 1:00 PM EDT Office Visit [address] [address] Ary Santiago, YUN [address] [facility] 100 [place] [address] documented as of this encounter [...] documented as of this encounter Care Teams Systems Mechanic Relationship Specialty Start Date End Date Renetta Pardo, YUN [address] [place] [address] [place] [address] PCP - General 09/09/23 documented as of this encounter
--- OUTSIDE RECORDS SUMMARY | 2025-02-03 11:10 | XMS_ITS | Encounter Summary ---
Author Organization Healthcare Address [address] [place] [address] Care Team Providers Care Financial Compliance Officer Name Role Phone Renetta Pardo APRN Primary Care Provider +1 -[phone] Encounter Details Date Type Department Care Team (Late st Contact Info) Description 01/23/2025 Clinical Support [facility] [address] [place] [address] Sonia Meyer, PharmD Social History Tobacco Use [...] any time in the past [address] [facility], were you homeless or living [...] drink first t traci in the morning (EYE-EMBROIDERY FINISHER) to steady your nerves or to get rid of a hangover? 0 09/10/2023 CAGE Questionnaire Score 0 024 Utilities Answer Date Recorded In the past 12 months has [employer], gas, oil, or water company threatened [...] Confirmation of IV Antimicrobials [facility]; Comments ID / OPAT pharmacist called and spoke with chon Vega at [facility] to confirm orders for daptomycin 1100 mg IV every 24 hours until 03/03/25. Sonia Meyer PharmD, [facility] Clinical Pharmacist Infectious Diseases, OPAT Available via i[employer] Secure Chat documented in this encounter Plan of Treatment Upcoming Encounters Date Type Department Care Team (Late st Contact Info) Description 02/11/2025 1:00 PM EDT Office Visit [facility] [address] [place] [address] Ary Santiago, AUCTION CLERK [address] [facility] 100 [place] [address] 02/17/2025 8:[address] [facility] Radiology [address], 1st [place] [address] 02/17/2025 9:20 AM EDT Office [facility] Orthopaedic Surgery & Sports Medicine [address], 1[address] [place] [address] Lawrence Hayes MD [address] [place] [address] 03/03/2025 1:00 PM EDT Office Visit [facility] [address] [place] [address] Ary Santiago APRN [address] [facility] [address] [place] [address] documented as of this encounter [...] documented as of this encounter Care Teams Financial Compliance Officer Relationship Specialty Start Date End Date Renetta Pardo, AUCTION CLERK [address] [place] [address] Dr Garcia [address] [place] [address] PCP - General 09/09/23 documented as of this encounter
--- OUTSIDE RECORDS SUMMARY | 2025-02-03 11:10 | XMS_ITS | Encounter Summary ---
Author Organization Healthcare Address [address] [place] [address] Care Team Providers Care Dump Attendant Name Role Phone EdvinCheloRenettagerald Dhaliwal APRN Primary Care Provider +1 -[phone] Encounter Details Date Type Department Care Team (Late st Contact Info) Description 01/23/2025 Clinical Support [facility] [address] [place] [address] Gume Ibarra, PharmD [address] [place] [address] Social History Tobacco Use Types Packs/Day Years [...] any time in the past 12 m [facility], were you homeless or [...] drink first t traci in the morning (EYE-HEAVY DUTY CUSTODIAN) to steady your nerves or to get [...] Description 02/11/2025 1:00 PM EDT Office Visit [facility] [address] [place] [address] Ary Santiago, ELECTROLYTIC ETCHER [address] [facility] [address] [place] [address] 02/17/2025 8:40 AM EDT Appointment [facility] Radiology [address], 1st [place] [address] 02/17/2025 9:20 AM EDT Office Visit [facility] Orthopaedic Surgery & Sports Medicine [address], 1[address] [place] [address] Lawrence Hayes MD [address] [place] [address] 03/03/2025 1:00 PM EDT Office Visit [facility] [address] [place] [address] Ary Santiago, ELECTROLYTIC ETCHER [address] [facility] 100 [place] [address] documented as of this encounter Visit Diagnoses [...] documented as of this encounter Care Teams Dump Attendant Relationship Specialty Start Date End Date Renetta Pardo APRN [address] [place] [address] Dr Garcia [address] [place] [address] PCP - General 09/09/23 documented as of this encounter
--- OUTSIDE RECORDS SUMMARY | 2025-02-03 11:10 | XMS_ITS | Encounter Summary ---
Author Organization Healthcare Address [address] [place] [id number] Care Team Providers Care Mortgage Loan Counselor Name Role Phone Renetta Pardo APRN Primary Care Provider +1 -[phone] Encounter Details Date Type Department Care Team [...] time in the past 12 m [facility], were you homeless or living in a [...] Description 02/11/2025 1:00 PM EDT Office Visit [facility] [address] [place] [address] Ary Santiago, LPTA [address] [facility] [address] [place] [address] 02/17/2025 8:40 AM EDT Appointment [facility] Radiology [address], 1st [place] [address] 02/17/2025 9:20 AM EDT Office Visit [facility] Orthopaedic Surgery & Sports Medicine [address], 1[address] [place] [address] Lawrence Hayes MD [address] [place] [address] 03/03/2025 1:00 PM EDT Office Visit [facility] [address] [place] [address] Ary Santiago APRN [address] [facility] [address] [place] [address] documented as of this encounter [...] documented as of this encounter Care Teams Mortgage Loan Counselor Relationship Specialty Start Date End Date Renetta Pardo, LPTA [address] [place] [address] Dr Garcia [address] [place] [address] PCP - General 09/09/23 documented as of this encounter
--- OUTSIDE RECORDS SUMMARY | 2025-02-03 11:10 | XMS_ITS | Encounter Summary ---
Author Organization Healthcare Address [address] [place] [address] Care Team Providers Care Motion Picture Film Examiner Name Role Phone EdvinCheloRenettagerald Dhaliwal APRN Primary Care Provider [phone] Encounter Details Date Type Department Care Team (Late st Contact Info) Description 01/24/2025 Telephone [facility] Orthopaedic Surgery & Sports Medicine [address], [address] [place] [address] [place] [facility], [facility] RO[facility] SUR[facility] ADMIN Social [...] drink first t traci in the morning (EYE-HVAC MECHANIC) to steady your nerves or to [...] Description 02/11/2025 1:00 PM EDT Office Visit [facility] [address] [place] [address] Ary Santiago, MACHINE STUFFER AUTOMATIC [address] [facility] [address] [place] [address] 02/17/2025 8:40 AM EDT Appointment [facility] Radiology [address], [address] [place] [address] 02/17/2025 9:20 AM EDT Office Visit [facility] Orthopaedic Surgery & Sports Medicine [address], [address] [place] [address] Lawrence Hayes MD [address] [facility] [address] [place] [address] 03/03/2025 1:00 PM EDT Office Visit [facility] [address] [facility] [place] [address] Ary Santiago APRN [address] [facility] [address] [place] [address] documented as of this encounter [...] documented as of this encounter Care Teams Motion Picture Film Examiner Relationship Specialty Start Date End Date Renetta Pardo, MACHINE STUFFER AUTOMATIC [address] [place] [address] Dr [address] [place] [address] PCP - General 09/09/23 documented as of this encounter
--- OUTSIDE RECORDS SUMMARY | 2025-02-03 11:11 | XMS_ITS | Encounter Summary ---
Author Organization [facility] Address [address] [id number] Care Team Providers Care Sewer Name Role Phone Renetta Pardo APRN Primary Care Provider [phone] Encounter Details Date Type Department Care Team [...] drink first t traci in the morning (EYE-RETAIL CUSTODIAL ASSOCIATE) to steady your nerves or to get [...] Description 02/11/2025 1:00 PM EDT Office Visit [facility] [address] [place] [address] Ary Santiago, YUN [address] [facility] [address] [place] [address] 02/17/2025 8:40 AM EDT Appointment [facility] Radiology [address] [place] [address] 02/17/2025 9:20 AM EDT Office Visit [facility] Orthopaedic Surgery & Sports Medicine [address], [address] [place] [address] Lawrence Hayes MD [address] [place] [address] 03/03/2025 1:00 PM EDT Office Visit [facility] [address] [place] [address] Ary Santiago, YUN [address] [facility] [address] [place] [address] documented as of this encounter Visit Diagnoses Not on filedocumented in this encounter Additional Health Concerns Assessment Noted Time A fall risk assessment has been complete d for the patient 10/04/2023 8:38 AM EST A Body Mass Index follow-up plan has been documented for the patient 01/02/2025 10:48 AM EDT documented as of this encounter Care Teams Sewer Relationship Specialty Start Date End Date Renetta Pardo APRN [address] [place] [address] Dr [address] [place] [address] PCP - General 09/09/23 documented as of this encounter
--- OUTSIDE RECORDS SUMMARY | 2025-02-03 11:11 | XMS_ITS | Clinical Summary ---
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 chronic inflammatory cells Correlation with microbiology studies recommended A resident was involved in the service. I attest I examined the relevant preparations for the specimens and confirmed the diagnosis or interpretation. 01/20/2025 4:29 PM EDT [facility] Pathologist Signature, Body Fluid 01/20/2025 4:29 PM EDT [facility] Comment:Reviewed by: Stephanie conti MD LAB CP ASR DISCLAIMER Yes 01/20/2025 4:29 PM EDT [facility] Joint Fluid Structure of left knee region / Unknown 01/18/2025 3:01 PM EDT 01/18/2025 3:28 PM EDT us Sachin Garza MD LAB BODY FLUIDS AND STOOLS O RDERABLES Final Result Performing Organization Address [facility]/ZIP Co de Phone Number [facility] [address] [place] [address] * Joint Fluid Crystals (01/18/2025 3:01 PM EDT) Crystals, Joint Fluid No Crystals Seen No Crystals Present 01/18/2025 5:28 PM EDT [facility] Joint Fluid Structure of left knee region / Unknown 01/18/2025 3:01 PM EDT 01/18/2025 3:28 PM EDT us Sachin Garza MD LAB BODY FLUIDS AND STOOLS O RDERABLES Final Result [facility] [address] [place] [address] * Joint Infection Panel by PCR (01/18/2025 12:17 PM EDT) Anaerococcus prevotii/vaginalis PCR Result Not Detected Not Detected 01/18/2025 5:28 PM EDT [facility] Clostridium perfringens PCR Result Not Detected Not Detected 01/18/2025 5:28 PM EDT [facility] Cutibacterium avidum/granulosum PCR Result Not Detected Not Detected 01/18/2025 5:28 PM EDT [facility] Enterococcus faecalis PCR Result Not Detected Not Detected 01/18/2025 5:28 PM EDT [facility] Enterococcus faecium PCR Result Not Detected Not Detected 01/18/2025 5:28 PM EDT [facility] Finegoldia magna PCR Result Not Detected Not Detected 01/18/2025 5:28 PM EDT [facility] Parvimonas micra PCR Result Not Detected Not Detected 01/18/2025 5:28 PM EDT [facility] Peptoniphilus PCR Result Not Detected Not Detected 01/18/2025 5:28 PM EDT [facility] Peptostreptococcus anaerobius PCR Result Not Detected Not Detected 01/18/2025 5:28 PM EDT [facility] Staphylococcus aureus PCR Result Not Detected Not Detected 01/18/2025 5:28 PM EDT [facility] Staphylococcus lugdunensis PCR Result Not Detected Not Detected 01/18/2025 5:28 PM EDT [facility] Streptococcus spp PCR Result Not Detected Not Detected 01/18/2025 5:28 PM EDT [facility] Streptococcus agalactiae PCR Result Not Detected Not Detected 01/18/2025 5:28 PM EDT [facility] Streptococcus pneumoniae PCR Result Not Detected Not Detected 01/18/2025 5:28 PM EDT [facility] Streptococcus pyogenes PCR Result Not Detected Not Detected 01/18/2025 5:28 PM EDT [facility] Bacteroides fragilis PCR Result Not Detected Not Detected 01/18/2025 5:28 PM EDT [facility] Citrobacter PCR Result Not Detected Not Detected 01/18/2025 5:28 PM EDT [facility] Enterobacter cloacae complex PCR Result Not Detected Not Detected 01/18/2025 5:28 PM EDT [facility] Escherichia coli PCR Result Not Detected Not Detected 01/18/2025 5:28 PM EDT [facility] Haemophilus influenzae PCR Result Not Detected Not Detected 01/18/2025 5:28 PM EDT [facility] Kingella kingae PCR Result Not Detected Not Detected 01/18/2025 5:28 PM EDT [facility] Klebsiella aerogenes PCR Result Not Detected Not Detected 01/18/2025 5:28 PM EDT [facility] Klebsiella pneumoniae group PCR Result Not Detected Not Detected 01/18/2025 5:28 PM EDT [facility] Morganella morganii PCR Result Not Detected Not Detected 01/18/2025 5:28 PM EDT [facility] Neisseria gonorrhoeae PCR Result Not Detected Not Detected 01/18/2025 5:28 PM EDT [facility] Proteus spp PCR Result Not Detected Not Detected 01/18/2025 5:28 PM EDT [facility] Pseudomonas aeruginosa PCR Result Not Detected Not Detected 01/18/2025 5:28 PM EDT [facility] Salmonella spp PCR Result Not Detected Not Detected 01/18/2025 5:28 PM EDT [facility] Serratia marcescens PCR Result Not Detected Not Detected 01/18/2025 5:28 PM EDT [facility] Nelda PCR Result Not Detected Not Detected 01/18/2025 5:28 PM EDT [facility] Nelda albicans PCR Result Not Detected Not Detected 01/18/2025 5:28 PM EDT [facility] CTXM PCR Result Not Detected Not Detected 01/18/2025 5:28 PM EDT [facility] IMP PCR Result Not Detected Not Detected 01/18/2025 5:28 PM EDT [facility] KPC PCR Result Not Detected Not Detected 01/18/2025 5:28 PM EDT [facility] mecA/C and MREJ (MRSA) PCR Result Not Detected Not Detected 01/18/2025 5:28 PM EDT [facility] NDM PCR Result Not Detected Not Detected 01/18/2025 5:28 PM EDT [facility] OXA-48-like PCR Result Not Detected Not Detected 01/18/2025 5:28 PM EDT [facility] Jarret/B PCR Result Not Detected Not Detected 01/18/2025 5:28 PM EDT [facility] VIM PCR Result Not Detected Not Detected 01/18/2025 5:28 PM EDT [facility] Joint Fluid Synovial fluid specimen / Unknown Non-blood Collection / Unknown 01/18/2025 12:17 PM EDT 01/18/2025 3:24 PM EDT Narrative [facility] - 01/18/2025 5:28 PM EDT [...] MICROBIOLOGY - GENERAL O RDERABLES Final Result [facility] [address] [id number] * NV AN ELECTIVE ENDOTRACHEAL AIRWAY, PB ANESTHESIA PLACEHOLDER [...] Detected Not Detected 01/18/2025 9:36 AM EDT [facility] Swab Both anterior nares / Unknown Non-blood Collection / Unknown 01/18/2025 7:43 AM EDT 01/18/2025 8:19 AM EDT Narrative [facility] - 01/18/2025 9:36 AM EDT [...] MICROBIOLOGY - GENERAL O RDERABLES Final Result [facility] [address] [place] [address] * Vancomycin, Peak, Plasma Please draw ~2 hours after 1000 dose of vancomycin on Monday finishes infusing. Consider obtaining level via peripheral stick. If peripheral stick is not feasible, please ensure that line is flushed well prior to drawing l... (01/17/2025 2:03 PM EDT) Vancomycin, Peak, Plasma 22.0 20.0 - 40.0 ug/mL 01/17/2025 3:01 PM EDT [facility] Blood Venous blood specimen / Unknown Venipuncture / Unknown 01/17/2025 2:03 PM EDT 01/17/2025 2:32 PM EDT Narrative [facility] - 01/17/2025 3:01 PM EDT Therapeutic Peak level: 20-40ug/mL Supra-therapeutic Peak level: >40 ug/mL Sachin Garza MD LAB BLOOD ORDERABLES Final R esult Performing Organization Address [facility] Co de Phone Number [facility] [address] [place] [address] * Vancomycin, Trough, Plasma Please draw ~30 minutes prior to dose due at 1000 on Monday. Please do NOT hold dose awaiting level to return. Consider obtaining level via peripheral stick. If peripheral stick is not feasible, please ensure that line ... (01/17/2025 9:53 AM EDT) Vancomycin, Trough, Plasma 12.5 10.0 - 20.0 ug/mL 01/17/2025 10:24 AM EDT [facility] Blood Venous blood specimen / Unknown Venipuncture / Unknown 01/17/2025 9:53 AM EDT 01/17/2025 9:57 AM EDT Narrative [facility] - 01/17/2025 10:24 AM EDT Therapeutic Trough level: 10-20ug/mL Supra-therapeutic Trough level: >20 ug/mL Sachin Garza MD LAB BLOOD ORDERABLES Final R esult Performing Organization Address [facility] de Phone Number [facility] [address] [place] [address] * [place] Extremity Limited MSK or Soft [...] at day 5 01/21/2025 2:02 AM EDT [facility] Blood Venous blood specimen / Unknown Venipuncture / Unknown 01/16/2025 12:24 AM EDT 01/16/2025 1:12 AM EDT Narrative [facility] - 01/21/2025 2:02 AM EDT Low blood volume submitted, results may be compromised Gus Tierney APRN LAB MICROBIOLOGY - GENER AL ORDERABLES Final Result [facility] [address] [place] [address] * XR Chest 1 View (01/15/2025 11:21 [...] MD on 01/15/2025 11:40 PM Gus Tierney BLACK LEATHER TRIMMER IMG XR PROCEDURES Final Result * XR [...] MD on 01/15/2025 11:40 PM Gus Tierney BLACK LEATHER TRIMMER IMG XR PROCEDURES Final Result * Type [...] ORDERA BLES Final Result Performing Organization Address City/[facility]/ZIP Co de Phone Number [facility] [address] [place] [address], [place] * ECG Adult (01/15/2025 10:46 PM EDT) Only the most recent of3 resultswithin the time period is included. EKG DIAGNOSIS CLASS Normal MUSE ECG Ventricular Rate 92 BPM MUSE ECG Atrial Rate 92 BPM MUSE ECG NV Interval 122 ms MUSE ECG QRSD Interval 102 ms MUSE ECG QT Interval 350 ms MUSE ECG QTC Interval 432 ms MUSE ECG P Newcomb 56 degrees MUSE ECG R Newcomb 44 degrees MUSE ECG T Wave Newcomb 57 degrees MUSE ECG Diagnosis Normal sinus rhythm MUSE ECG Diagnosis Normal ECG MUSE ECG Diagnosis MUSE ECG Diagnosis Confirmed by Richard Mccracken ([id number]) on 01/16/2025 8:55:10 PM MUSE ECG 01/15/2025 10:4 6 PM EDT 01/16/2025 8:55 PM EDT Ye Navarro MD ECG ORDERABLES Final Resu lt Performing Organization Address [facility] Co de Phone Number MUSE ECG * (ABNORMAL) Sed rate, automated (01/15/2025 10:11 PM EDT) Sedimentation Rate 46(H) <15 mm/hr 2024 10:34 PM EDT [facility] Blood Venous blood specimen / Unknown Venipuncture / Unknown 01/15/2025 10:11 PM EDT 01/15/2025 10:12 PM EDT Gus Tierney APRN LAB BLOOD ORDERABLES Fin al Result Performing Organization Address City/[facility]/ZIP Co de Phone Number [facility] [address] [place] [address] * (ABNORMAL) Blood gas panel, venous (01/15/2025 10:11 PM EDT) pH, Venous 7.39 7.32 - 7.43 LAB HEMATOLOGY METHOD 01/15/2025 10:14 PM EDT [facility] pCO2, Venous 47 40 - 55 mmHg LAB HEMATOLOGY METHOD 01/15/2025 10:14 PM EDT [facility] pO2, Venous 34 25 - 40 mmHg LAB HEMATOLOGY METHOD 01/15/2025 10:14 PM EDT [facility] SO2, Measured, Venous 68 65 - 80 % LAB HEMATOLOGY METHOD 01/15/2025 10:14 PM EDT [facility] Base Excess, Venous 2.8 -2.0 - 3.0 mmol/L LAB HEMATOLOGY METHOD 01/15/2025 10:14 PM EDT [facility] Bicarbonate, Calculated, Venous 29(H) 22 - 26 mmol/L LAB HEMATOLOGY METHOD 01/15/2025 10:14 PM EDT [facility] Hematocrit, Whole Blood 40.4 40.0 - 51.0 % LAB HEMATOLOGY METHOD 01/15/2025 10:14 PM EDT [facility] Sodium, Whole Blood 135(L) 136 - 145 mmol/L LAB HEMATOLOGY METHOD 01/15/2025 10:14 PM EDT [facility] Potassium, Whole Blood 4.3 3.6 - 4.9 mmol/L LAB HEMATOLOGY METHOD 01/15/2025 10:14 PM EDT [facility] Chloride, Whole Blood 99 97 - 107 mmol/L LAB HEMATOLOGY METHOD 01/15/2025 10:14 PM EDT [facility] Glucose, Whole Blood 110(H) 74 - 99 mg/dL LAB HEMATOLOGY METHOD 01/15/2025 10:14 PM EDT [facility] Lactate, Venous, Whole Blood 1.1 0.5 - 2.2 mmol/L LAB HEMATOLOGY METHOD 01/15/2025 10:14 PM EDT [facility] Ionized Calcium, Whole Blood 4.6 4.6 - 5.1 mg/dL LAB HEMATOLOGY METHOD 01/15/2025 10:14 PM EDT [facility] Blood Venous blood specimen / Unknown Venipuncture / Unknown 01/15/2025 10:11 PM EDT 01/15/2025 10:12 PM EDT Gus Tierney BLACK LEATHER TRIMMER LAB BLOOD ORDERABLES Fin al Result [facility] [address] [place] [address] * (ABNORMAL) CMP (01/15/2025 10:11 PM EDT) Only the most recent of2 resultswithin the time period is included. Glucose, Plasma 116(H) 74 - 99 mg/dL 01/15/2025 10:32 PM EDT [facility] BUN, Plasma 14 7 - 21 mg/dL 01/15/2025 10:32 PM EDT [facility] Creatinine, Plasma 0.78 0.70 - 1.20 mg/dL 01/15/2025 10:32 PM EDT [facility] BUN/Creatinine Ratio 18 01/15/2025 10:32 PM EDT [facility] Sodium, Plasma 134(L) 136 - 145 mmol/L 01/15/2025 10:32 PM EDT [facility] Potassium, Plasma 4.6 3.6 - 4.9 mmol/L 01/15/2025 10:32 PM EDT [facility] Chloride, Plasma 97 97 - 107 mmol/L 01/15/2025 10:32 PM EDT [facility] CO2, Plasma 24 22 - 29 mmol/L 01/15/2025 10:32 PM EDT [facility] Anion Gap 13 6 - 16 mmol/L 01/15/2025 10:32 PM EDT [facility] Total Calcium, Plasma 8.7(L) 8.9 - 10.2 mg/dL 01/15/2025 10:32 PM EDT [facility] Total Protein 6.5 6.3 - 7.9 g/dL 01/15/2025 10:32 PM EDT [facility] Albumin, Plasma 3.7 3.5 - 5.2 g/dL 01/15/2025 10:32 PM EDT [facility] AST, Plasma 23 10 - 50 U/L 01/15/2025 10:32 PM EDT [facility] ALT, Plasma 52(H) 10 - 50 U/L 01/15/2025 10:32 PM EDT [facility] Alkaline Phosphatase, Plasma 124(H) 40 - 115 U/L 01/15/2025 10:32 PM EDT [facility] Total Bilirubin, Plasma 0.3 0.2 - 1.1 mg/dL 01/15/2025 10:32 PM EDT [facility] eGFRcr 119.3 mL/min/1.7 3m*2 01/15/2025 10:32 PM EDT [facility] Comment:Reported eGFRcr in m L/min/1.73m2 is based the CKD-EPI 2020 equation that does not use a race coefficient. Blood Venous blood specimen / Unknown Venipuncture / Unknown 01/15/2025 10:11 PM EDT 01/15/2025 10:12 PM EDT Gus Tierney APRN LAB BLOOD ORDERABLES Fin al Result Performing Organization Address City/[facility]/ZIP Co de Phone Number [facility] [address] [place] [address] * Lactate, venous (01/02/2025 2:46 AM EDT) [...] ORDERABLES Final Re sult Performing Organization Address City/[facility]/ZIP Co de Phone Number [facility] [address] [place] [address] * [place] Less than 1 Hour Intraoperative (01/01/2025 12:51 PM EDT) Narrative IMAGING - 01/01/2025 12:53 PM EDT Images were obtained for surgical purposes. See Lawrence Hayes's surgical note in the patient's chart for the findings. us Lawrence Hayes MD IMG FLUOROSCOPY PROCEDURES Fi nal Result IMAGING * NV AN ELECTIVE ENDOTRACHEAL AIRWAY, PB ANESTHESIA PLACEHOLDER (01/01/2025 11:28 AM EDT) Rubén Cooper CRNA - 01/01/2025 11:28 AM EDT Rubén Millan CRNA 01/01/2025 11:31 AM Airway Date/Time: 01/01/2025 11:28 AM Reason: elective Airway not difficult General Information and Staff Patient location during procedure: OR CASTING SUPERVISOR: Rubén Millan CRNA Performed: CASTING SUPERVISOR Patient Condition Indications for airway management: anesthesia [...] 7:17 AM EDT 01/01/2025 7:23 AM EDT [facility] - 01/01/2025 8:29 AM EDT HA1C Interpretive Data: Diagnosis of Diabetes: Diabetic > or = 6.5% Pre-diabetic 5.7 to 6.4% Non-diabetic < or = 5.6% Glycemic Targets for Type I and Type II Diabetics: Non- Adults <7.0% Adults <6.0% Children and Adolescents <7.5% Source: [place] [employer]. Standards of medical care in diabetes,2017. Diabetes Care.2017:40 (suppl 1):S1-S135. us Lawrence Hayes MD LAB BLOOD ORDERABLES Final Re sult [facility] [address] [place] [address] * CT Knee Left wo IV Contrast [...] Jeff Georges MD on 01/01/2025 2:47 AM Result Tobias Perera MD IMG XR PROCEDURES Final Result [...] EDT 01/01/2025 12:52 AM EDT Result Tobias Perera MD LAB BLOOD ORDERABLES Final Resu lt Performing Organization Address [facility] Co de Phone Number [facility] [address] [place] [address] * Hepatitis C Antibody - ED (01/01/2025 12:35 AM EDT) Hepatitis C Antibody Negative Negative 01/01/2025 1:33 AM EDT [facility] Blood Venous blood specimen / Unknown Venipuncture / Unknown 01/01/2025 12:35 AM EDT 01/01/2025 12:52 AM EDT us Kareem Perera MD LAB BLOOD ORDERABLES Final Resu lt [facility] [address] [place] [address] * Light Green Top (01/01/2025 12:27 AM EDT) Pathologist [facility] Extra Hold for add-ons 01/01/2025 3:02 AM EDT [facility] Comment:Auto resulted. Blood Venous blood specimen / Unknown 01/01/2025 12:27 AM EDT 01/01/2025 12:42 AM EDT Result Tobias Perera MD LAB BLOOD ORDERABLES Final Resu lt [facility] [address] [place] [address] * CT OUTSIDE IMAGES (12/31/2024 7:02 PM [...] Date Last Indicated MRSA 01/18/2025 01/18/2025 Insurance [employer] MEDICAID [place] Advance Directives * Full Code (Latest Code [...] Patient has decision-making capacity? Yes Care Teams Transition Lead Relationship Specialty Start Date End Date Renetta Pardo APRN [address] [place] [address] [place] [address] PCP - General 09/09/23
--- OUTSIDE RECORDS SUMMARY | 2025-02-03 11:11 | XMS_ITS | Encounter Summary ---
Author Organization Healthcare Address [address] [id number] Care Team Providers Care Community Health Advisor Name Role Phone Renetta Pardo APRN Primary Care Provider [phone] Encounter Details Date Type Department Care Team (Latest Contact Info) Description 01/27/2025 Travel Social History Tobacco Use Types Packs/Day [...] time in the past 12 m [facility], were you homeless or living [...] drink first t traci in the morning (EYE-WEIGH TANK OPERATOR) to steady your nerves or to [...] 02/11/2025 1:00 PM EDT Office Visit [facility] [address] [place] [phone] Ary Santiago, HAND SILVERING SUPERVISOR [address] [facility] [address] [place] [address] 02/17/2025 8:40 AM EDT Appointment [facility] Radiology [address] [place] [address] 02/17/2025 9:20 AM EDT Office Visit [facility] [address] [place] [address] Lawrence Hayes MD [address] [place] [phone] 03/03/2025 1:00 PM EDT Office Visit [facility] [address] [place] [address] Ary Santiago, HAND SILVERING SUPERVISOR [address] [facility] [address] [place] [address] documented as of this encounter [...] documented as of this encounter Care Teams Community Health Advisor Relationship Specialty Start Date End Date Renetta Pardo APRN [address] [place] [address] Dr [address] [place] [address] PCP - General 09/09/23 documented as of this encounter
--- OUTSIDE RECORDS SUMMARY | 2025-02-03 11:11 | XMS_ITS | Encounter Summary ---
Author Organization Healthcare Address [address] [place] [address] Care Team Providers Care Brand Communications Manager Name Role Phone EdvinCheloRenettagerald Dhaliwal APRN Primary Care Provider [phone] Encounter Details Date Type Department Care Team ([facility] st Contact Info) Description 12/31/2024 Orders Only External Location [address] [place] [address] Mitchell Mosley PA [address] [place], [place] [id number] Social History Tobacco Use Types Packs/Day Years [...] drink first t traci in the morning (EYE-FARMWORKER MACHINE) to steady your nerves or to get rid of a hangover? 0 09/10/2023 CAGE Questionnaire Score 0 024 Utilities Answer Date Recorded In the past 12 months has th e [employer], gas, oil, or water company threatened to [...] Description 02/11/2025 1:00 PM EDT Office Visit [facility] [address] [place] [phone] Ary Santiago, YUN [address] [facility] [address] [place] [address] 02/17/2025 8:40 AM EDT Appointment [facility] Radiology [address] [place] [phone] 02/17/2025 9:20 AM EDT Office Visit [facility] Orthopaedic Surgery & Sports Medicine [address] [place] [phone] Lawrence Hayes MD [address] [place] [phone] 03/03/2025 1:00 PM EDT Office Visit [address] [phone] Ary Santiago, YUN [address] [facility] [address] [place] [address] documented as of this encounter [...] documented as of this encounter Care Teams Brand Communications Manager Relationship Specialty Start Date End Date Renetta Pardo, YUN [address] [place] [address] [place] [address] PCP - General 09/09/23 documented as of this encounter
--- OUTSIDE RECORDS SUMMARY | 2025-02-03 11:11 | XMS_ITS | Encounter Summary ---
Author Organization Healthcare Address [address] [place] [address] Care Team Providers Care Cpc Coder Name Role Phone EdvinCheloRenettagerald Dhaliwal APRN Primary Care Provider +1 -[phone] Encounter Details Date Type Department Care Team ([facility] st Contact Info) Description 12/31/2024 Orders Only External Location [address] [place] [address] Mitchell Mosley PA [address] [place], [place] [id number] Social History Tobacco Use Types Packs/Day Years [...] drink first t traci in the morning (EYE-TEMPLATE REPRODUCTION TECHNICIAN) to steady your nerves or to get rid of a hangover? 0 09/10/2023 CAGE Questionnaire Score 0 024 Utilities Answer Date Recorded In the past 12 months has th e [employer], gas, oil, or water company threatened to [...] Description 02/11/2025 1:00 PM EDT Office Visit [facility] [address] [place] [address] Ary Santiago, YUN 310 [facility] 100 [place] [address] 02/17/2025 8:40 AM EDT Appointment [facility] Radiology [address], 1st [place] [address] 02/17/2025 9:20 AM EDT Office Visit [facility] Orthopaedic Surgery & Sports Medicine [address], 1[address] [place] [address] Lawrence Hayes MD [address] [place] [address] 03/03/2025 1:00 PM EDT Office Visit [address] [address] Ary Santiago, YUN 310 [facility] 100 [place] [address] documented as of this encounter [...] documented as of this encounter Care Teams Cpc Coder Relationship Specialty Start Date End Date Renetta Pardo, YUN [address] [place] [address] [place] [address] PCP - General 09/09/23 documented as of this encounter
--- OUTSIDE RECORDS SUMMARY | 2025-02-03 11:11 | XMS_ITS | Encounter Summary ---
Author Organization Healthcare Address [address] [place] [address] Care Team Providers Care Profiling Machine Setup Operator Name Role Phone EdvinCarissateetee Dhaliwal APRN Primary Care Provider +1 -[phone] Reason for Visit * Reason Onset Date Comments HCN - Patient Message 01/27/2025 Encounter Details Date Type Department Care Team (Late st Contact Info) Description 01/27/2025 Telephone [facility] Orthopaedic Surgery & Sports Medicine [address], 1[address] Floor [address] [place] [address] Lawrence Hayes MD [address] [place] [address] HCN - Patient Message Social History Tobacco Use Types Packs/Day Years [...] place to sleep or slept in a retirement (including now)? No 09/12/2023 Humiliation, Afraid, Rape, [...] any time in the past 12 m onths, were you homeless or living in a retirement (including now)? No 01/17/2025 CAGE ASSESSMENT Answer [...] drink first t traci in the morning (EYE-LEAD SOFTWARE QA ENGINEER) to steady your nerves or to get [...] encounter Miscellaneous Notes * Telephone Encounter - Raymond Lemos RN - 01/29/2025 9:37 AM EDT Called and told them to take the woundvac off but they already had and wrapped it up. Told them to keep it wrapped and fu with us on 02/03, and to update us with any changes. * Telephone Encounter - Roseanne Traylor - 01/27/2025 11:34 AM EDT Clinical Concern/Question Reason for Call: shanel, Patient is calling stating that she didn't know about his appt today and wer/s to next week. She would like to know if he is supposed to wear the wound vac device until next week or stop wear it. Please call to advise Best contact number: [phone] (mobile) Optimal time of day to reach caller: ANYTIME Additional comments/information from caller: None Note: Please do not reply to this message. Follow-up communication and further actions as a result of this message need to be communicated with the patient directly, if the patient is not active onMyChart. If the patient is active on MyChart, they will receive notification of the communication/outcome via MyChart. documented in this encounter Plan of Treatment Upcoming Encounters Date Type Department Care Team (Late st Contact Info) Description 02/11/2025 1:00 PM EDT Office Visit [address] [address] Ary Santiago APRN [address] [place] [address] [address] [place] [address] 02/17/2025 8:40 AM EDT Appointment [facility] Radiology [address], 1st [place] [address] 02/17/2025 9:20 AM EDT Office Visit [facility] Orthopaedic Surgery & Sports Medicine [address], 1[address] Floor [address] [place] [address] Lawrence Hayes MD [address] [place] [address] 03/03/2025 1:00 PM EDT Office Visit [address] [address] Ary Santiago APRN [address] [facility] [address] [place] [address] documented as of this encounter Visit Diagnoses [...] documented as of this encounter Care Teams Profiling Machine Setup Operator Relationship Specialty Start Date End Date Renetta Pardo, YUN [address] [place] [address] [place] [address] PCP - General 09/09/23 documented as of this encounter
--- OUTSIDE RECORDS SUMMARY | 2025-02-03 11:11 | XMS_ITS | Encounter Summary ---
Author Organization Healthcare Address [address] [place] [id number] Care Team Providers Care Park Superintendent Name Role Phone Renetta Pardo APRN Primary Care Provider +1 -[phone] Encounter Details Date Type Department Care Team (Latest Contact Info) Description 02/03/2025 Travel Social History Tobacco Use Types Packs/Day [...] any time in the past 12 m [facility], were you homeless or living [...] first t traci in the morning (EYE-MANAGER POWER) to steady your nerves or to get [...] Description 02/11/2025 1:00 PM EDT Office Visit [facility] [address] [place] [address] Ary Santiago, [place] SCRUB TECH 3101 [facility] [address] [place] [address] 02/17/2025 8:[address] [facility] Radiology [address], 1st [place] [address] 02/17/2025 9:20 AM EDT Office [facility] Orthopaedic Surgery & Sports Medicine [address], 1st Floor [address] [place] [address] Lawrence Hayes MD [address] [place] [address] 03/03/2025 1:00 PM EDT Office Visit [facility] [address] [place] [address] Ary Santiago, [place] SCRUB TECH 3101 [facility] [address] [place] [address] documented as of this encounter [...] documented as of this encounter Care Teams Park Superintendent Relationship Specialty Start Date End Date Renetta Pardo APRN [address] [place] [address] Dr Garcia [address] [place] [address] PCP - General 09/09/23 documented as of this encounter
--- OUTSIDE RECORDS SUMMARY | 2025-02-03 11:11 | XMS_ITS | Encounter Summary ---
Author Organization Healthcare Address [address] [id number] Care Team Providers Care Drilling Manager Name Role Phone Renetta Pardo APRN Primary Care Provider +1 -[phone] Encounter Details Date Type Department Care Team ([facility] st Contact Info) Description 12/31/2024 Orders Only External Location [address] [place] [address] Provider, External Social History Tobacco Use Types [...] drink first t traci in the morning (EYE-ADJUNCT INSTRUCTOR IN ECONOMICS) to steady your nerves or to get [...] Description 02/11/2025 1:00 PM EDT Office Visit [facility] [address] [place] [address] Ary Santiago, GREENHOUSE WORKER [address] [facility] [address] [place] [address] 02/17/2025 8:40 AM EDT Appointment [facility] Radiology [address], 1st [place] [address] 02/17/2025 9:20 AM EDT Office Visit [facility] Orthopaedic Surgery & Sports Medicine [address], 1[address] Floor [address] [place] [address] Lawrence Hayes MD [address] [place] [address] 03/03/2025 1:00 PM EDT Office Visit [facility] [address] [place], [place] [phone] Ary Santiago, GREENHOUSE WORKER [address] [facility] [address] [place] [address] documented as of this encounter [...] documented as of this encounter Care Teams Drilling Manager Relationship Specialty Start Date End Date Renetta Pardo, YUN [address] [place] [address] Dr Garcia [address] [place] [address] PCP - General 09/09/23 documented as of this encounter
--- OUTSIDE RECORDS SUMMARY | 2025-02-03 11:12 | XMS_ITS | Encounter Summary ---
Author Organization Healthcare Address [address] [id number] Care Team Providers Care Oversize Load Pilot Escort Name Role Phone Renetta Pardo APRN Primary Care Provider +1 -[phone] Encounter Details Date Type Department Care Team [...] any time in the past 12 m [facility], were you homeless or living [...] drink first t traci in the morning (EYE-REFUELING RAMP ATTENDANT) to steady your nerves or to get [...] Description 02/11/2025 1:00 PM EDT Office Visit [facility] [address] [place] [address] Ary Santiago, YUN [address] [facility] [address] [place] [address] 02/17/2025 8:40 AM EDT Appointment [facility] Radiology [address], 1st [place] [address] 02/17/2025 9:20 AM EDT Office Visit [facility] Orthopaedic Surgery & Sports Medicine [address], 1[address] Floor [address] [place] [address] Lawrence Hayes MD [address] [facility] [address] [place] [address] 03/03/2025 1:00 PM EDT Office Visit [facility] [address] [place] [address] Ary Santiago APRN 3101 [facility] [address] [place] [address] documented as of this encounter Visit Diagnoses Not on filedocumented in this encounter Additional Health Concerns Assessment Noted Time A fall risk assessment has been complete d for the patient 10/04/2023 8:38 AM EST A Body Mass Index follow-up plan has been documented for the patient 01/22/2025 4:22 PM EDT documented as of this encounter Care Teams Oversize Load Pilot Escort Relationship Specialty Start Date End Date Renetta Pardo APRN [address] [place] [address] Dr Garcia [address] [place] [address] PCP - General 09/09/23 documented as of this encounter
--- OUTSIDE RECORDS SUMMARY | 2025-02-03 11:12 | XMS_ITS | Encounter Summary ---
Author Organization Healthcare Address [address] [place] [address] Care Team Providers Care Portable Track Line Marker Name Role Phone EdvinCheloRenettagerald Dhaliwal APRN Primary Care Provider +1 -[phone] Encounter Details Date Type Department Care Team (Late st Contact Info) Description 01/07/2025 Telephone [facility] Orthopaedic Surgery & Sports Medicine [address], 1st Floor [address] [place] [address] Cam[place] Vital, METAL OFF BEARER & ACUTE CARE SURG SVCS ADMIN Social [...] in a usp (including now)? No 09/12/2023 CAGE ASSESSMENT Answer [...] drink first t traci in the morning (EYE-MARKETING SUPPORT ASSISTANT) to steady your nerves or to [...] Description 02/11/2025 1:00 PM EDT Office Visit [facility] [address] [place] [address] Ary Santiago, HUMAN SERVICES ASSISTANT 3101 [facility] 100 [place] [address] 02/17/2025 8:40 AM EDT Appointment [facility] Radiology [address], 1st [place] [address] 02/17/2025 9:20 AM EDT Office Visit [facility] Orthopaedic Surgery & Sports Medicine [address], 1st Floor [address] [place] [address] Lawrence Hayes MD [address] [facility] [address] [place] [address] 03/03/2025 1:00 PM EDT Office Visit [facility] [address] [place] [address] Ary Santiago, HUMAN SERVICES ASSISTANT 3101 [facility] 100 [place] [address] documented as of this encounter Visit Diagnoses Not on filedocumented in this encounter Additional Health Concerns Assessment Noted Time A fall risk assessment has been complete d for the patient 10/04/2023 8:38 AM EST A Body Mass Index follow-up plan has been documented for the patient 01/02/2025 10:48 AM EDT documented as of this encounter Care Teams Portable Track Line Marker Relationship Specialty Start Date End Date Renetta Pardo APRN [address] [place] [address] [place] [address] PCP - General 09/09/23 documented as of this encounter
--- OUTSIDE RECORDS SUMMARY | 2025-02-03 11:12 | XMS_ITS | Encounter Summary ---
Author Organization [facility] Address [address] [id number] Care Team Providers Care Porter Head Name Role Phone Renetta Pardo APRN Primary Care Provider +1 -[phone] Encounter Details Date Type Department Care Team [...] in a halfway (including now)? No 09/12/2023 CAGE ASSESSMENT Answer [...] drink first t traci in the morning (EYE-TALENT ACQUISITION RELATIONSHIP MANAGER) to steady your nerves or to [...] Suicidal Behavior (Lifetime) No 9:42 PM EDT Mary Magnus documented as of this encounter Plan of Treatment Upcoming Encounters Date Type Department Care Team (Late st Contact Info) Description 02/11/2025 1:00 PM EDT Office Visit [facility] [address] [place] [address] Ary Santiago, SENIOR CYBER INTELLIGENCE ANALYST 3101 [facility] 100 [place] [address] 02/17/2025 8:40 AM EDT Appointment [facility] Radiology [address], 1st [place] [address] 02/17/2025 9:20 AM EDT Office Visit [facility] Orthopaedic Surgery & Sports Medicine [address], 1st Floor [address] [place] [address] Lawrence Hayes MD [address] [place] [address] 03/03/2025 1:00 PM EDT Office Visit [facility] [address] [place] [address] Ary Santiago, SENIOR CYBER INTELLIGENCE ANALYST 3101 [facility] 100 [place] [address] documented as of this encounter Visit Diagnoses Not on filedocumented in this encounter Additional Health Concerns Assessment Noted Time A fall risk assessment has been complete d for the patient 10/04/2023 8:38 AM EST A Body Mass Index follow-up plan has been documented for the patient 01/22/2025 4:22 PM EDT documented as of this encounter Care Teams Porter Head Relationship Specialty Start Date End Date Renetta Pardo APRN [address] [place] [address] Dr [address] [place] [address] PCP - General 09/09/23 documented as of this encounter
== END 2025-02-03 23:59 | disposition home or self-care (01) ==
LOC: INF 10:37
PROVIDERS: Visit Provider Student in an Organized Health Care Education/Training Program
DX: L03.116 Cellulitis of left lower limb (principal); Z45.2 Encounter for adjustment and management of vascular access device
CPT/HCPCS: 36592; 80076; 82550; 82565; 84520; 85025; 96523

== ENCOUNTER 2025-02-10 14:07 | Outpatient (CLI) | payer MEDICAID, SELFPAY ==
--- OUTSIDE RECORDS SUMMARY | 2024-12-31 23:53 | XMS_ITS | Encounter Summary ---
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 entire needle into theskin and then press down on the syringe plunger to inject the drug. Hold onto the skin the entire time you give the shot. Do not rub the site after you give the shot. Are there OTHER USES for this medicine? This medication may be prescribed for other uses; ask your doctor or pharmacist for more information. What SPECIAL PRECAUTIONS should I follow? Before taking enoxaparin, ?? tell your doctor and pharmacist if you are allergic to enoxaparin, heparin, any other drugs, or pork products. ?? tell your doctor and pharmacist what prescription and nonprescription medications, vitamins, nutritional supplements, and herbal products you are taking or plan to take while receiving enoxaparin.Your doctor may need to change the doses of your medications or monitor you carefully for side effects. ?? the following nonprescription products may interact with enoxaparin: aspirin and nonsteroidal anti-inflammatory drugs (NSAIDs) such as ibuprofen (Advil, Motrin, others) and naproxen (Aleve, Naprosyn, others). Be sure to let your doctor and pharmacist know that you are taking these medications before you start receiving enoxaparin. Do not start any of these medications while receiving enoxaparin without discussing with your healthcare provider. ?? tell your doctor if you have an artificial heart valve and if you have or have ever had kidney disease, an infection in your heart, a stroke, a bleeding disorder, ulcers, or a low platelet count. ?? tell your doctor if you are , plan to become , or are breast- feeding. If you become while taking enoxaparin, call your doctor. ?? if you are having surgery, including dental surgery, tell the doctor or dentist that you are taking enoxaparin. What should I do IF I FORGET to take a dose? Inject the missed dose as soon as you remember it. However, if it is almost time for the next dose,skip the missed dose and continue your regular dosing schedule. Do not inject a double dose to makeup for a missed one. What SIDE EFFECTS can this medicine cause? If you experience any of the following symptoms or those listed in the IMPORTANT WARNING section, call your doctor immediately: ?? unusual bleeding or bruising ?? black or bloody stools ?? blood in urine ?? swollen ankles and/or feet If you experience a serious side effect, you or your doctor may send a report to the Food and Drug Administration's (FDA) MedWatch Adverse Event Reporting program online (https://www.fda.gov/Safety/MedWatch) or by phone ( ). What should I know about STORAGE and DISPOSAL of this medication? Keep this medication out of reach of children. Store the syringes at room temperature and away fromexcess heat and moisture (not in the bathroom). Do not use the syringe if it leaks or if the fluid is dark or contains particles. Unneeded medications should be disposed of in special ways to ensure that pets, children, and otherpeople cannot consume them. However, you should not flush this medication down the toilet. Instead,the best way to dispose of your medication is through a medicine take-back program. Talk to your pharmacist or contact your local garbage/recycling department to learn about take-back programs in your community. See the FDA's Safe Disposal of Medicines website (https://goo.gl/c4Rm4p) for more information if you do not have access to a take-back program. It is important to keep all medication out of sight and reach of children as many containers (such as weekly pill minders and those for eye drops, creams, patches, and inhalers) are not child-resistant and young children can open them easily. To protect young children from poisoning, always lock safety caps and immediately place the medication in a safe location - one that is up and away and out of their sight and reach. https://www.upandaway.org What should I do in case of OVERDOSE? In case of overdose, call the poison control helpline at . Information is also available online at https://www.poisonhelp.org/help. If the victim has collapsed, had a seizure, has trouble breathing, or can't be awakened, immediately call emergency services at 911. What OTHER INFORMATION should I know? Keep all appointments with your doctor and the laboratory. Your doctor will order certain lab teststo monitor your enoxaparin therapy. Enoxaparin prevents blood from clotting so it may take longer than usual for you to stop bleeding if you are cut or injured. Avoid activities that have a high risk of causing injury. Call your doctorif bleeding is unusual. Do not let anyone else use your medication. Your prescription is probably not refillable. It is important for you to keep a written list of all of the prescription and nonprescription (kqas-bve-dlugcpg) medicines you are taking, as well as any products such as vitamins, minerals, or otherdietary supplements. You should bring this list with you each time you visit a doctor or if you areadmitted to a hospital. It is also important information to carry with you in case of emergencies. This report on medications is for your information only, and is not considered individual patient advice. Because of the changing nature of drug information, please consult your physician or pharmacist about specific clinical use. The [employer] represents that the information provided hereunder was formulated with a reasonable standard of care, and in conformity with professional standards in the field. The [employer] makes no representations or warranties, express or implied, including, but not limited to, any implied warranty of merchantability and/or fitness for a particular purpose, with respect to such information and specifically disclaims all such warranties. Users are advised that decisions regarding drug therapy are complex medical decisions requiring the independent, informed decision of an appropriate health field care manager, and the information is provided for informational purposes only. The entire monograph for a drug should be reviewed for a thorough understanding of the drug's actions, uses and side effects. The [employer] does not endorse or recommend the use of any drug.The information is not a substitute for medical care. AHFS?? Patient Medication Information?. ?? Copyright, 2023. The [employer]??, [address], [address], [place], [place]. All Rights Reserved. Duplication for commercial use must be authorized by [facility]. Selected Revisions: March 02, 2024. AHFS?? Patient Medication Information?. ?? Copyright, 2024 * Rosaura RushFORMERLY [facility] - Constance Castañeda RN - 01/02/2025 10:46 AM EDT Images from the original note were not included. 217 Giving a Subcutaneous (Sub-Q) Enoxaparin (Lovenox) Injection (UK) Giving yourself a subcutaneous injection (also called a sub-Q injection) means inserting medicine into the fat just under your skin. The needle used for a sub- Q injection is very small and doesn?t cause much pain. Many medicines are given in this way. Enoxaparin (Lovenox) is a blood thinner used to prevent or treat blood clots. Why you take enoxaparin (Lovenox): Keep taking this medicine for this time period: Injections can be given once or twice a day. Your doctor has prescribed the amount and times to inject. The prescription will also say how long you need to take it. Amount per injection: Times each day: Preparing a Work Area ?? Put any pets in another room. ?? Wash your hands for 1 to 2 minutes with liquid soap. ?? Clean your area with soap and water. ?? Collect the following items: o Your medication o Alcohol wipes or swabs o A puncture-proof plastic container to dispose of your used needles and syringes. Use a sharps container or an empty laundry detergent bottle. ?? Wash your hands again. Selecting Your Injection Site ?? Inject this medicine in your abdomen at least 2 inches from the belly button. ?? Avoid areas that are red, swollen, or bruised. ?? Rotate your injection sites. Choose a site that is at least 2 inches away from your last injection site. ?? Sit or lie in a comfortable position. Preparing the Medicine ?? Check the medicine in the syringe for changes in color, debris, or cloudiness. ?? Don?t use the medicine if you notice anything different about the contents of the syringe. ?? Call your doctor or pharmacist if you question whether the medicine is safe to use. ?? Remove the syringe from its package. Don?t use the syringe if the package is already open or hasholes in it. Giving the Injection ?? Using an alcohol swab, clean the injection site. Make sure the cleaned area is about 2 inches indiameter. ?? Let the injection site dry. ?? Take the cap off the needle. ?? There is an air bubble in the syringe. If the air bubble is not at the top of the syringe near the plunger, flick the syringe with your other fingers. The air bubble should be injected last to help prevent skin irritation and make sure you receive all of the medicine. ?? Hold the syringe like a pencil. ?? With your other hand, place your thumb and forefinger on either side of the clean injection site. Pinch up about an inch of skin. ?? Insert the needle at a 90?? angle into the pinched-up skin. Do this quickly; it will hurt less. ?? Be sure to insert the needle with the bevel up and insert all the way to the end of the needle. This will help you inject the medicine correctly. ?? Keep the skin pinched up. ?? To inject the medicine , slowly push the plunger all the way down with your finger. After the Injection ?? Pull the needle from the skin and release the pinched-up skin. ?? Hold the alcohol swab on the injection site for a few seconds. Don?t rub the injection site. ?? If you see blood or clear fluid, press on the injection site with the gauze or cotton ball for 5to 8 minutes. Don?t rub while pressing. Apply a bandage if you wish. ?? Don?t recap the needle. ?? Put the empty syringe in the disposal container. Never put loose needles in the trash. ?? Call your local waste company or public health department to find out the proper way to dispose of used syringes. * Discharge Summary - Rubén Phelan DO - 01/02/2025 8:31 AM EDT Hospitalization Admit Date/Time: 12/31/2024 11:53 PM Admitting Attending: Lawrence Hayes Discharge Date: 01/02/25 Discharge Attending Physician: Lawrence Hayes MD PCP name and Address: Renetta Pardo [address] / [place] [address] Referring provider name and address: Tyrone Beck MD [address] [place] [address] Chief Concern, Brief History of Present Illness, and Hospital Course Panda Machado is a 34 y.o. male with a past medical history of left knee tibial plateau operative fixation on 09/15/[address] Nava , presented to [facility] complaining of left knee pain.Patient was subsequently admitted on 12/31/2024 for further evaluation, and treatment. On 12/31/2024 - 01/01/2025, the patient underwent ORIF L tibia plateau fx by Dr. Hayes. The procedure was toleratedwell with no intraoperative complications. The patient was successfully extubated post-operatively and taken to the PACU for immediate postoperative care per protocol. Patient subsequently recovered well on the floor. On the day of discharge, the patient was ambulating with appropriate weightbearing restrictions andwith adequate pain control, tolerating a regular diet, voiding adequately, and passing flatus and stool. Patient was discharged to home in stable condition without pending results. Follow-up appointments: - The patient will follow-up with Dr. Hayes in clinic on 01/21. Surgeries and Procedures Procedures performed in this encounter Procedures Case Request Operating Room: ORIF, FRACTURE, TIBIA, PLATEAU ORIF, FRACTURE, TIBIA, PLATEAU (Left) Medication List .. acetaminophen 500 MG tablet Commonly known as: Tylenol Take 2 tablets by mouth every 6 hours as needed for pain. enoxaparin 60 MG/0.6ML solution prefilled syringe Commonly known as: Lovenox Inject 0.6 mL under the skin 2 times a day for 53 doses. ibuprofen 400 MG tablet Take 1 tablet by mouth every 6 hours as needed for mild pain. Paul pack Take 1 packet by mouth 2 times a day. methocarbamol 750 MG tablet Commonly known as: Robaxin Take 1 tablet by mouth every 6 hours as needed for muscle spasms. multivitamin tablet Take 1 tablet by mouth 1 (one) time each day. naloxone 0.4 MG/ML injection Commonly known as: Narcan Infuse 0.2 mL into a venous catheter as needed for respiratory depression (every 2 minutes). oxyCODONE 5 MG immediate release tablet Commonly known as: Roxicodone Take 1 tablet by mouth every 6 hours as needed for moderate pain. senna-docusate 8.6-50 MG tablet Commonly known as: Hailey-Colace Take 1 tablet by mouth 2 times a day. traMADol 50 MG tablet Commonly known as: Ultram Take 1 tablet by mouth every 8 hours as needed for severe pain (pain not responsive to non-opioid analgesics). Where to Get Your Medications These medications were sent to [facility] - [place], [place] - [address], [facility] [id number] acetaminophen 500 MG tablet enoxaparin 60 MG/0.6ML solution prefilled syringe ibuprofen 400 MG tablet Paul pack methocarbamol 750 MG tablet naloxone 0.4 MG/ML injection oxyCODONE 5 MG immediate release tablet senna-docusate 8.6-50 MG tablet traMADol 50 MG tablet Discharge Diagnosis Medical Problems Active and Resolved Hospital Problems Hospital Closed fracture of lateral portion of left tibial plateau, initial encounter * (Principal) Closed fracture of lateral portion of left tibial plateau Post Discharge Instructions Diet: Regular Diet Activity: Remain non weight-bearing to the left lower extremity Wound/Incision Care: You may shower , No soaking or submerging wound in pool/tub/bath/body of wateruntil return to clinic for wound check , Do not remove martha/sutures without clinician approval ,and Call if any redness, swelling, foul-smelling or bloody drainage from the wound RYAN Wrap - RYAN wrap may be removed 72 hours following surgery, and then reapplied daily for swelling as needed, taking care not to remove the sterile OR dressing underneath. If they are becoming rolled up and are creating strictures or tourniquet like pressure areas, they can be removed earlier and re-wrapped as needed. Surgical Dressings - Surgical bandage should remain clean, dry, and intact and should not be removed until follow-up appointment. If bandage becomes wet, soiled, or falls off it may be replaced with a clean dry gauze or covaderm dressing as needed. Reasons to Call: Fevers > 100.4, persistent or worsening pain not controlled with oral medications, wound care issues Follow-up Instructions: Please keep scheduled follow-up Outpatient Follow-Up Future Appointments Date Time Provider Department Center 01/21/2025 8:30 AM Stella Brown APRN [facility] Test Results Pending At Discharge Pertinent Physical Exam At Time of Discharge Physical Exam Discharge Disposition/Condition Disposition: Home Condition: Stable (s/sx potential problems absent or manageable) I spent >30 minutes of patient care and instruction time in preparation for this discharge. Cosigned by Lawrence Hayes MD at 01/03/2025 7:55 AM EDT * Consults - Teri Lao - 01/02/2025 8:28 AM EDT Noted allergy to strawberries in nursing screen. Allergies noted in EMR and also in my dining. RD will continue to follow per protocol and remains available for consult as needed. Teri Lao, BELTRAN, LD * Progress Notes - Sole Zepeda - 01/02/2025 8:15 AM EDT Occupational Therapy Evaluation & Discharge Patient Name: Panda Machado Today's Date: 01/02/2025 OT Discharge Recommendations: Home with assistance Equipment Recommended: Patient owns appropriate equipment, None History Panda Machado is 34 y.o. male admitted 12/31/2024 for work-up of Closed fracture of lateral portion of left tibial plateau. Problem List Active Hospital Problems Diagnosis Date Noted Closed fracture of lateral portion of left tibial plateau, initial encounter 01/01/2025 Closed fracture of lateral portion of left tibial plateau 12/31/2024 Procedures 01/01/2025 Procedure(s): ORIF, FRACTURE, TIBIA, PLATEAU Past Medical History Patient has no past medical history on file. Past Surgical History Patient has a past surgical history that includes Leg Surgery (Left). Precautions Left Lower Extremity Weight Bearing Status: Non-Weight Bearing Medical Precautions: Fall precautions Subjective Pt reported, I feel pretty good about going home. I have been through this and been worse. Participants in Care Family/Caregiver Present: No Heel Packer: Not Applicable Presentation Oxygen Therapy: None (Room air) Lines and Tubes: Intravenous access Pre-Session: Supine Post-Session: Sitting in chair, Chair alarm, Lines intact, RN notified, Call light in reach Home Living/Set-up Lives With: Spouse, Family (x2 kids, and mother) Home Type: Apartment Home Adaptive Equipment: shower chair, Rolling walker, Wheelchair-manual, Bedside commode Home Layout: One level, Stairs to enter without rails Number of Stairs: 1 Bathroom: Tub/Shower: Tub/Shower combo Bathroom: Toilet: Standard (has bsc frame to place over toilet if needed) Bathroom: Accessibility: Accessible Home Living Comments: Patient lives with family, one step to enter to home. Prior Level of Function Receives Help From: No assist required prior to admission Level of Mobility: Ambulatory- community Mobility Major: Independent gait without device History of Falls: Yes ADL Performance: Independent Patient/Family Goals Statement Pt agreeable to OT evaluation. Objective Pain Pt with 2/10 pain to Bandar PANDEY RN aware, positioned for comfort at end of session. Delirium Screening Vera Agitation Sedation Scale (RASS): Alert and calm Confusion Assessment Method-ICU (CAM-ICU/PCAM-ICU) Feature 3: Altered Level of Consciousness: Negative Cognition Overall Cognitive Status: Within Functional Limits Arousal/Alertness: Appropriate responses to stimuli Mood/Behavior: Alert Orientation Level: Oriented X4 Single Step Commands: Consistently Method of Communication: Verbal Vision - Basic Assessment Current Vision: Intact Right Upper Extremity Examination RUE ROM Assessment RUE Assessment: Within Functional Limits Manual Muscle Testing - RUE: Within functional limits Sensation Light Touch: Right Upper Extremity: Intact Left Upper Extremity Examination LUE ROM Assessment LUE Assessment: Within Functional Limits Manual Muscle Testing - LUE: Within functional limits Sensation Light Touch: Left Upper Extremity: Intact Right Lower Extremity Examination RLE ROM Assessment RLE Assessment: Within Functional Limits Manual Muscle Testing - RLE: Within functional limits Sensation Light Touch: Right Lower Extremity: Intact Left Lower Extremity Examination LLE ROM Assessment LLE Assessment: (AROM decreased) Manual Muscle Testing: (Grossly 2+/5) Sensation Light Touch: Left Lower Extremity: Intact Bed Mobility Bed Mobility Exam: Rolling/Turning Level of Major: Modified independence Physical/Nonphysical Assist: Verbal Cues Assistive Device: Bed rails Bed Mobility Exam: Scooting/Bridging Level of Major: Modified independence Physical/Nonphysical Assist: Verbal Cues Assistive Device: Bed rails Bed Mobility Exam: Supine to Sit Level of Major: Modified Major Physical/Nonphysical Assist: Verbal Cues Assistive Device: Bed rails Bed Mobility Exam: Sit to Supine Level of Major: (Patient left OOBTC.) Transfers Transfer Exam: Sit to stand Level of Major: Modified independence Physical/Nonphysical Assist: Verbal Cues Assistive Device: Walker, rolling Transfer Exam: Stand to Sit Level of Major: Modified independence Physical/Nonphysical Assist: Verbal Cues Assistive Device: Walker, rolling Toilet Transfer Level of Major: Modified independence Physical/Nonphysical Assist: Verbal Cues Type of Transfer: Ambulation Assistive Device: Walker, rolling Balance Dynamic Standing Balance Dynamic Standing-Balance Support: Right upper extremity support, Left upper extremity support Dynamic Standing Level of Assistance: Supervision Participation in Functional Tasks: Distant supervision Self-Care Interventions Self Care/Home Management (ADLs) Time Entry: 8 Self-Care Interventions: Pt. participated in functional endurance tasks in preparation for high level ADL routines. Pt. completed supine>sit EOB Mod(I), followed by sit>stand from EOB Mod(I) with RW. Pt. completed navigation task to/from bathroom to complete ADL's in home environment Mod(I) with RW. Pt. tolerated task well with no safety concerns noted. Grooming Grooming Level of Assistance: Modified independent Grooming Where Assessed: Standing sinkside Grooming Interventions: Pt completed the following grooming tasks in standing at sink Mod(I) with RW: washing face, brushing teeth, washing hands, and brushing hair. Bathing UE Bathing Level of Assistance: Modified independent LE Bathing Level of Assistance: Modified independent Bathing: Where Assessed: Chair level Bathing Interventions: Pt completed sponge bathing seated in recliner Mod(I). UE Dressing UE Dressing Level of Assistance: Independent UE Dressing Where Assessed: Chair level Lower Extremity Dressing Pants Level of Assistance: Independent Sock Level of Assistance: Independent LE Dressing Where Assessed: Chair level Toileting Toileting Level of Assistance: Modified independent Where Assessed: Toilet Standardized Assessments [facility] 6-Click Daily Activities Help from Other: Don/Doff Regular Lower Body Clothings: None Help From Other: Bathing: None Help From Other: Toileting: None Help From Other: Don/Doff Upper Body Clothings: None Help From Other: Grooming: None Help From Other: Eating Meals: None [facility] 6 Click - Daily Activities Score: 24 Assessment Pt. with no skilled OT needs identified at this time. OT signing off. OT Findings: All appropriate OT goals met at this time. No skilled OT needs identified. OT signing off. Eval Complexity Occupational Profile: Brief history including review of medical/therapy records relating to presenting problem Clinical Decision Making: Low Overall Eval complexity: Low OT Recommendations Discharge Destination: Home with assistance Discharge Equipment: Patient owns appropriate equipment, None Plan Patient no longer demonstrates need for inpatient occupational therapy services. Patient to be discharged from occupational therapy. Written by Sole Zepeda on 01/02/25 * Progress Notes - Katalina Madison - 01/02/2025 8:14 AM EDT Physical Therapy Evaluation Patient Name: Panda Machado Today's Date: 01/02/2025 PT Discharge Recommendations: Home with assistance Equipment Recommended: Patient owns appropriate equipment Discharge Transportation Recommendations: Car History Panda Machado is 34 y.o. male admitted 12/31/2024 for work-up of Closed fracture of lateral portion of left tibial plateau. Problem List Active Hospital Problems Diagnosis Date Noted Closed fracture of lateral portion of left tibial plateau, initial encounter 01/01/2025 Closed fracture of lateral portion of left tibial plateau 12/31/2024 Procedures Procedure(s): ORIF, FRACTURE, TIBIA, PLATEAU Past Medical History Patient has no past medical history on file. Past Surgical History Patient has a past surgical history that includes Leg Surgery (Left). Precautions Mobility Protocol: General - Mobility Guidelines Extremity Precautions: Extremity Precautions Extremity: LLE Mobility Restrictions (LLE): Non-weight bear (NWB) Range of motion as tolerated Type of Brace (LLE): None Other mobility precautions: No other precautions required Medical Precautions: Fall precautions Subjective Patient agreeable to PT evaluation this date. Participants in Care Family/Caregiver Present: No Presentation Oxygen Therapy: None (Room air) Lines and Tubes: Intravenous access Pre-Session: Supine Post-Session: Sitting in chair, Chair alarm, Lines intact, RN notified, Call light in reach Home Living/Set-up Lives With: Spouse, Family (x2 kids, and mother) Home Type: Apartment Home Adaptive Equipment: shower chair, Rolling walker, Wheelchair-manual, Bedside commode Home Layout: One level, Stairs to enter without rails Number of Stairs: 1 Bathroom: Tub/Shower: Tub/Shower combo Bathroom: Toilet: Standard (has [facility] frame to place over toilet if needed) Bathroom: Accessibility: Accessible Home Living Comments: Patient lives with family, one step to enter to home. Prior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 lesion. There is no soft tissue fluid collectionor foreign body. Moderate suprapatellar knee joint effusion. IMPRESSION: Redemonstrated comminuted fracture of the left tibial plateau. Moderateleft suprapatellar knee joint effusion. CRITICAL RESULT: No. COMMUNICATION: Per this written report. Preliminary report signed by Richard Head MD on 01/01/2025 6:12 AM By electronically signing this report, I, the attending physician, attestthat I have personally reviewed the images/data for the aboveexamination(s) and agree with the final edited report. Drafted by Richard Head MD on 01/01/2025 6:05 AM Final report signed by Jeff Georges MD on 01/01/2025 6:19 AM us Lawrence Hayes MD IMG CT PROCEDURES Final Resul t * Lactate, venous (01/01/2025 4:02 AM EDT) [facility] Lactate, Venous, Whole Blood 0.7 0.5 - 2.2 mmol/L LAB HEMATOLOGY METHOD 01/01/2025 4:11 AM EDT [facility] Blood Venous blood specimen / Unknown Venipuncture / Unknown 01/01/2025 4:02 AM EDT 01/01/2025 4:10 AM EDT us Dwaine Das DO LAB BLOOD ORDERABLES Final Result [facility] [address] [place] [address] * ECG Adult (01/01/2025 2:34 AM EDT) Pathologist [facility] EKG DIAGNOSIS CLASS Normal MUSE ECG Ventricular Rate 85 BPM MUSE ECG Atrial Rate [address] Interval 122 ms MUSE ECG QRSD Interval 110 ms MUSE ECG QT Interval 368 ms MUSE ECG QTC Interval 437 ms MUSE ECG P Cushing 64 degrees MUSE ECG R Cushing 53 degrees MUSE ECG T Wave Cushing 56 degrees MUSE ECG Diagnosis Normal sinus rhythm with sinus arrhythmia MUSE ECG Diagnosis Normal ECG MUSE ECG Diagnosis MUSE ECG Diagnosis Confirmed by Johnathan Black ([id number]) on 01/01/2025 9:03:38 AM MUSE ECG 01/01/2025 2:34 AM EDT 01/01/2025 9:03 AM EDT Dwaine [employer] DO ECG ORDERABLES Final Resul t MUSE ECG * Lactate, venous (01/01/2025 2:33 AM EDT) Lactate, Venous, Whole Blood 0.7 0.5 - 2.2 mmol/L LAB HEMATOLOGY METHOD 01/01/2025 2:45 AM EDT [facility] Blood Venous blood specimen / Unknown Venipuncture / Unknown 01/01/2025 2:33 AM EDT 01/01/2025 2:44 AM EDT Dwaine [employer] LAB BLOOD ORDERABLES Final Result Performing Organization Address [facility] de Phone Number [facility] [address] [place] [address] * Type and Screen (01/01/2025 2:33 AM EDT) ABO/Rh A Positive 01/01/2025 2:27 AM EDT BLOOD BANK Antibody Screen Negative 01/01/2025 2:27 AM EDT BLOOD BANK Specimen Expiration 01/04/2025 23:59 01/01/2025 2:27 AM EDT BLOOD BANK Blood Venous blood specimen / Unknown Venipuncture / Unknown 01/01/2025 2:33 AM EDT 01/01/2025 2:37 AM EDT Dwaine [employer] LAB BLOOD BANK TEST ORDERAB LES Final Result Performing Organization Address [facility] Co de Phone Number BLOOD BANK [address] [place] [address], * Prothrombin Time/INR (01/01/2025 2:33 AM EDT) Prothrombin Time 13.8 12.0 - 14.3 sec LAB COAGULATION METHOD 01/01/2025 3:07 AM EDT [facility] INR 1.1 0.9 - 1.1 LAB COAGULATION METHOD 01/01/2025 3:07 AM EDT [facility] Blood Venous blood specimen / Unknown Venipuncture / Unknown 01/01/2025 2:33 AM EDT 01/01/2025 2:40 AM EDT Narrative [facility] - 01/01/2025 3:07 AM EDT OPTIMAL INR RANGES FOR PATIENT ON ORAL ANTICOAGULANT THERAPY Prevention of venous thromboembolism INR 2.0 to 3.0 In patients with heart disease: Atrial fibrillation INR 2.0 to 3.0 Valvular heart disease INR 2.0 to 3.0 Tissue heart valves INR 2.0 to 3.0 Mechanical prosthetic valves INR 2.5 to 3.5 Prevention of recurrent [place] INR 2.5 to 3.5 Dwaine Das DO LAB BLOOD ORDERABLES Final Result [facility] [address] [place] [address] * (ABNORMAL) Basic Metabolic Panel, Plasma (01/01/2025 2:33 AM EDT) Glucose, Plasma 124(H) 74 - 99 mg/dL 01/01/2025 3:11 AM EDT [facility] BUN, Plasma 6(L) 7 - 21 mg/dL 01/01/2025 3:11 AM EDT [facility] Creatinine, Plasma 0.65(L) 0.70 - 1.20 mg/dL 01/01/2025 3:11 AM EDT [facility] BUN/Creatinine Ratio 9 01/01/2025 3:11 AM EDT [facility] Sodium, Plasma 136 136 - 145 mmol/L 01/01/2025 3:11 AM EDT [facility] Potassium, Plasma 3.7 3.6 - 4.9 mmol/L 01/01/2025 3:11 AM EDT [facility] Chloride, Plasma 103 97 - 107 mmol/L 01/01/2025 3:11 AM EDT [facility] CO2, Plasma 25 22 - 29 mmol/L 01/01/2025 3:11 AM EDT [facility] Anion Gap 8 6 - 16 mmol/L 01/01/2025 3:11 AM EDT [facility] Total Calcium, Plasma 8.7(L) 8.9 - 10.2 mg/dL 01/01/2025 3:11 AM EDT [facility] eGFRcr 126.0 mL/min/1.7 3m*2 01/01/2025 3:11 AM EDT [facility] Comment:Reported eGFRcr in m L/min/1.73m2 is based the CKD-EPI 2020 equation that does not use a race coefficient. Blood Venous blood specimen / Unknown Venipuncture / Unknown 01/01/2025 2:33 AM EDT 01/01/2025 2:44 AM EDT Dwaine Das DO LAB BLOOD ORDERABLES Final Result [facility] [address] [place] [address] * (ABNORMAL) CBC W/O Differential (01/01/2025 2:33 AM EDT) WBC Count 8.98 3.70 - 10.30 10*3/uL LAB HEMATOLOGY METHOD 01/01/2025 2:42 AM EDT [facility] RBC Count 4.56(L) 4.60 - 6.10 10*6/uL LAB HEMATOLOGY METHOD 01/01/2025 2:42 AM EDT [facility] HGB 13.6(L) 13.7 - 17.5 g/dL LAB HEMATOLOGY METHOD 01/01/2025 2:42 AM EDT [facility] HCT 41.2 40.0 - 51.0 % LAB HEMATOLOGY METHOD 01/01/2025 2:42 AM EDT [facility] Platelet Count 223 155 - 369 10*3/uL LAB HEMATOLOGY METHOD 01/01/2025 2:42 AM EDT [facility] MCV 90 79 - 98 fL LAB HEMATOLOGY METHOD 01/01/2025 2:42 AM EDT [facility] MCH 29.8 26.0 - 32.0 pg LAB HEMATOLOGY METHOD 01/01/2025 2:42 AM EDT [facility] MCHC 33.0 30.7 - 35.5 g/dL LAB HEMATOLOGY METHOD 01/01/2025 2:42 AM EDT [facility] RDW 13.2 11.5 - 14.5 % LAB HEMATOLOGY METHOD 01/01/2025 2:42 AM EDT [facility] MPV 10.5 8.8 - 12.5 fL LAB HEMATOLOGY METHOD 01/01/2025 2:42 AM EDT [facility] nRBC 0.0 <=0.0 per 100 WBCs LAB HEMATOLOGY METHOD 01/01/2025 2:42 AM EDT [facility] Blood Venous blood specimen / Unknown Venipuncture / Unknown 01/01/2025 2:33 AM EDT 01/01/2025 2:40 AM EDT Dwaine [employer] LAB BLOOD ORDERABLES Final Result [facility] [address] [place] [address] * XR Hip Left 2 or 3 Views (01/01/2025 1:43 AM EDT) Anatomical Region Laterality Modality Lower Extremities, Hip Left Digital R adiography Impressions 01/01/2025 2:47 AM EDT Additional fracture of the proximal left tibia primarily involving the posterior aspect of the medial tibial plateau. CRITICAL RESULT: No. COMMUNICATION: Per this written report. Preliminary report signed by Richard Head MD on 01/01/2025 2:33 AM By electronically signing this report, I, the attending physician, attest that I have personally reviewed the images/data for the above examination(s) and agree with the final edited report. Drafted by Richard Head MD on 01/01/2025 2:10 AM Final report signed by Jeff Georges MD on 01/01/2025 2:47 AM Narrative 01/01/2025 2:47 AM EDT CLINICAL INDICATION: tibial plateau frx TECHNIQUE: XR TIBIA FIBULA LEFT 2+ VIEWS, XR KNEE LEFT 3 VIEWS, XR CHEST 1 VIEW, XR HIP LEFT 2 OR 3 VIEWS, XR FEMUR LEFT 2+ VIEWS, XR ANKLE LEFT 3+ VIEWS COMPARISON: Left lower extremity CT from 12/31/2024 Left tibia fibula and knee radiographs from 09/15/2023, left femur radiographs from 09/10/2023 chest radiograph 09/11/2023 FINDINGS: Chest: The mediastinal and cardiac contours are normal and stable. No consolidation, pleural effusion, pulmonary edema or pneumothorax. No acute osseous abnormality. Left hip: Postsurgical changes of left intramedullary nail. No acute fracture or malalignment. Left femur: Post surgical changes of left intramedullary nail. No acute fracture or malalignment. Interval increased callus formation/healing about the previous proximal femur fracture. Left knee: Redemonstrated are postsurgical changes of lateral plate and screw fixation with lateral tibial pins. There appears to be from early origin is fracture through the posterior aspect of the proximal left tibia reveal involving the medial tibial plateau. Moderate suprapatellar effusion. Soft tissue swelling about the soft tissues of the left knee. Left tib-fib: No acute fracture or malalignment in the distal tibia or fibula. Joint spaces are intact. Left ankle: No acute fracture or malalignment. The ankle mortise is symmetric. Diffuse soft tissue swelling about the lower extremity/ankle. Procedure Note Jeff Georges MD - 01/01/2025 CLINICAL INDICATION: tibial plateau frx TECHNIQUE: XR TIBIA FIBULA LEFT 2+ VIEWS, XR KNEE LEFT 3 VIEWS, XR CHEST 1 VIEW, XRHIP LEFT 2 OR 3 VIEWS, XR FEMUR LEFT 2+ VIEWS, XR ANKLE LEFT 3+ VIEWS COMPARISON: Left lower extremity CT from 12/31/2024 Left tibia fibula and kneeradiographs from 09/15/2023, left femur radiographs from 09/10/2023 chestradiograph 09/11/2023 FINDINGS: Chest: The mediastinal and cardiac contours are normal and stable. Noconsolidation, pleural effusion, pulmonary edema or pneumothorax. No acuteosseous abnormality. Left hip: Postsurgical changes of left intramedullary nail. No acute fracture ormalalignment. Left femur: Post surgical changes of left intramedullary nail. No acute fracture ormalalignment. Interval increased callus formation/healing about theprevious proximal femur fracture. Left knee: Redemonstrated are postsurgical changes of lateral plate and screwfixation with lateral tibial pins. There appears to be from early originis fracture through the posterior aspect of the proximal left tibia revealinvolving the medial tibial plateau. Moderate suprapatellar effusion. Softtissue swelling about the soft tissues of the left knee. Left tib-fib: No acute fracture or malalignment in the distal tibia or fibula. Jointspaces are intact. Left ankle: No acute fracture or malalignment. The ankle mortise is symmetric. Diffusesoft tissue swelling about the lower extremity/ankle. IMPRESSION: Additional fracture of the proximal left tibia primarily involving theposterior aspect of the medial tibial plateau. CRITICAL RESULT: No. COMMUNICATION: Per this written report. Preliminary report signed by Richard Head MD on 01/01/2025 2:33 AM By electronically signing this report, I, the attending physician, attestthat I have personally reviewed the images/data for the aboveexamination(s) and agree with the final edited report. Drafted by Richard Head MD on 01/01/2025 2:10 AM Final report signed by Jeff Georges MD on 01/01/2025 2:47 AM us Miguel Perera MD IMG XR PROCEDURES Final Result * XR Femur Left 2+ Views (01/01/2025 1:43 AM EDT) Anatomical Region Laterality Modality Lower Extremities, Femur Left Digital Radiography Impressions 01/01/2025 2:47 AM EDT Additional fracture of the proximal left tibia primarily involving the posterior aspect of the medial tibial plateau. CRITICAL RESULT: No. COMMUNICATION: Per this written report. Preliminary report signed by Richard Head MD on 01/01/2025 2:33 AM By electronically signing this report, I, the attending physician, attest that I have personally reviewed the images/data for the above examination(s) and agree with the final edited report. Drafted by Richard Head MD on 01/01/2025 2:10 AM Final report signed by Jeff Georges MD on 01/01/2025 2:47 AM Narrative 01/01/2025 2:47 AM EDT CLINICAL INDICATION: tibial plateau frx TECHNIQUE: XR TIBIA FIBULA LEFT 2+ VIEWS, XR KNEE LEFT 3 VIEWS, XR CHEST 1 VIEW, XR HIP LEFT 2 OR 3 VIEWS, XR FEMUR LEFT 2+ VIEWS, XR ANKLE LEFT 3+ VIEWS COMPARISON: Left lower extremity CT from 12/31/2024 Left tibia fibula and knee radiographs from 09/15/2023, left femur radiographs from 09/10/2023 chest radiograph 09/11/2023 FINDINGS: Chest: The mediastinal and cardiac contours are normal and stable. No consolidation, pleural effusion, pulmonary edema or pneumothorax. No acute osseous abnormality. Left hip: Postsurgical changes of left intramedullary nail. No acute fracture or malalignment. Left femur: Post surgical changes of left intramedullary nail. No acute fracture or malalignment. Interval increased callus formation/healing about the previous proximal femur fracture. Left knee: Redemonstrated are postsurgical changes of lateral plate and screw fixation with lateral tibial pins. There appears to be from early origin is fracture through the posterior aspect of the proximal left tibia reveal involving the medial tibial plateau. Moderate suprapatellar effusion. Soft tissue swelling about the soft tissues of the left knee. Left tib-fib: No acute fracture or malalignment in the distal tibia or fibula. Joint spaces are intact. Left ankle: No acute fracture or malalignment. The ankle mortise is symmetric. Diffuse soft tissue swelling about the lower extremity/ankle. Procedure Note Jeff Georges MD - 01/01/2025 CLINICAL INDICATION: tibial plateau frx TECHNIQUE: XR TIBIA FIBULA LEFT 2+ VIEWS, XR KNEE LEFT 3 VIEWS, XR CHEST 1 VIEW, XRHIP LEFT 2 OR 3 VIEWS, XR FEMUR LEFT 2+ VIEWS, XR ANKLE LEFT 3+ VIEWS COMPARISON: Left lower extremity CT from 12/31/2024 Left tibia fibula and kneeradiographs from 09/15/2023, left femur radiographs from 09/10/2023 chestradiograph 09/11/2023 FINDINGS: Chest: The mediastinal and cardiac contours are normal and stable. Noconsolidation, pleural effusion, pulmonary edema or pneumothorax. No acuteosseous abnormality. Left hip: Postsurgical changes of left intramedullary nail. No acute fracture ormalalignment. Left femur: Post surgical changes of left intramedullary nail. No acute fracture ormalalignment. Interval increased callus formation/healing about theprevious proximal femur fracture. Left knee: Redemonstrated are postsurgical changes of lateral plate and screwfixation with lateral tibial pins. There appears to be from early originis fracture through the posterior aspect of the proximal left tibia revealinvolving the medial tibial plateau. Moderate suprapatellar effusion. Softtissue swelling about the soft tissues of the left knee. Left tib-fib: No acute fracture or malalignment in the distal tibia or fibula. Jointspaces are intact. Left ankle: No acute fracture or malalignment. The ankle mortise is symmetric. Diffusesoft tissue swelling about the lower extremity/ankle. IMPRESSION: Additional fracture of the proximal left tibia primarily involving theposterior aspect of the medial tibial plateau. CRITICAL RESULT: No. COMMUNICATION: Per this written report. Preliminary report signed by Richard Head MD on 01/01/2025 2:33 AM By electronically signing this report, I, the attending physician, attestthat I have personally reviewed the images/data for the aboveexamination(s) and agree with the final edited report. Drafted by Richard Head MD on 01/01/2025 2:10 AM Final report signed by Jeff Georges MD on 01/01/2025 2:47 AM us Miguel Perera MD IMG XR PROCEDURES Final Result * XR Chest 1 View (01/01/2025 1:43 AM EDT) Anatomical Region Laterality Modality Chest Digital Radiogra phy Impressions 01/01/2025 2:47 AM EDT Additional fracture of the proximal left tibia primarily involving the posterior aspect of the medial tibial plateau. CRITICAL RESULT: No. COMMUNICATION: Per this written report. Preliminary report signed by Richard Head MD on 01/01/2025 2:33 AM By electronically signing this report, I, the attending physician, attest that I have personally reviewed the images/data for the above examination(s) and agree with the final edited report. Drafted by Richard Head MD on 01/01/2025 2:10 AM Final report signed by Jeff Georges MD on 01/01/2025 2:47 AM Narrative 01/01/2025 2:47 AM EDT CLINICAL INDICATION: tibial plateau frx TECHNIQUE: XR TIBIA FIBULA LEFT 2+ VIEWS, XR KNEE LEFT 3 VIEWS, XR CHEST 1 VIEW, XR HIP LEFT 2 OR 3 VIEWS, XR FEMUR LEFT 2+ VIEWS, XR ANKLE LEFT 3+ VIEWS COMPARISON: Left lower extremity CT from 12/31/2024 Left tibia fibula and knee radiographs from 09/15/2023, left femur radiographs from 09/10/2023 chest radiograph 09/11/2023 FINDINGS: Chest: The mediastinal and cardiac contours are normal and stable. No consolidation, pleural effusion, pulmonary edema or pneumothorax. No acute osseous abnormality. Left hip: Postsurgical changes of left intramedullary nail. No acute fracture or malalignment. Left femur: Post surgical changes of left intramedullary nail. No acute fracture or malalignment. Interval increased callus formation/healing about the previous proximal femur fracture. Left knee: Redemonstrated are postsurgical changes of lateral plate and screw fixation with lateral tibial pins. There appears to be from early origin is fracture through the posterior aspect of the proximal left tibia reveal involving the medial tibial plateau. Moderate suprapatellar effusion. Soft tissue swelling about the soft tissues of the left knee. Left tib-fib: No acute fracture or malalignment in the distal tibia or fibula. Joint spaces are intact. Left ankle: No acute fracture or malalignment. The ankle mortise is symmetric. Diffuse soft tissue swelling about the lower extremity/ankle. Procedure Note Jeff Georges MD - 01/01/2025 CLINICAL INDICATION: tibial plateau frx TECHNIQUE: XR TIBIA FIBULA LEFT 2+ VIEWS, XR KNEE LEFT 3 VIEWS, XR CHEST 1 VIEW, XRHIP LEFT 2 OR 3 VIEWS, XR FEMUR LEFT 2+ VIEWS, XR ANKLE LEFT 3+ VIEWS COMPARISON: Left lower extremity CT from 12/31/2024 Left tibia fibula and kneeradiographs from 09/15/2023, left femur radiographs from 09/10/2023 chestradiograph 09/11/2023 FINDINGS: Chest: The mediastinal and cardiac contours are normal and stable. Noconsolidation, pleural effusion, pulmonary edema or pneumothorax. No acuteosseous abnormality. Left hip: Postsurgical changes of left intramedullary nail. No acute fracture ormalalignment. Left femur: Post surgical changes of left intramedullary nail. No acute fracture ormalalignment. Interval increased callus formation/healing about theprevious proximal femur fracture. Left knee: Redemonstrated are postsurgical changes of lateral plate and screwfixation with lateral tibial pins. There appears to be from early originis fracture through the posterior aspect of the proximal left tibia revealinvolving the medial tibial plateau. Moderate suprapatellar effusion. Softtissue swelling about the soft tissues of the left knee. Left tib-fib: No acute fracture or malalignment in the distal tibia or fibula. Jointspaces are intact. Left ankle: No acute fracture or malalignment. The ankle mortise is symmetric. Diffusesoft tissue swelling about the lower extremity/ankle. IMPRESSION: Additional fracture of the proximal left tibia primarily involving theposterior aspect of the medial tibial plateau. CRITICAL RESULT: No. COMMUNICATION: Per this written report. Preliminary report signed by Richard Head MD on 01/01/2025 2:33 AM By electronically signing this report, I, the attending physician, attestthat I have personally reviewed the images/data for the aboveexamination(s) and agree with the final edited report. Drafted by Richard Head MD on 01/01/2025 2:10 AM Final report signed by Jeff Georges MD on 01/01/2025 2:47 AM us Miguel Perera MD IMG XR PROCEDURES Final Result * XR Ankle Left 3+ Views (01/01/2025 1:43 AM EDT) Anatomical Region Laterality Modality Lower Extremities, Ankle Left Digital Radiography Impressions 01/01/2025 2:47 AM EDT Additional fracture of the proximal left tibia primarily involving the posterior aspect of the medial tibial plateau. CRITICAL RESULT: No. COMMUNICATION: Per this written report. Preliminary report signed by Richard Head MD on 01/01/2025 2:33 AM By electronically signing this report, I, the attending physician, attest that I have personally reviewed the images/data for the above examination(s) and agree with the final edited report. Drafted by Richard Head MD on 01/01/2025 2:10 AM Final report signed by Jeff Georges MD on 01/01/2025 2:47 AM Narrative 01/01/2025 2:47 AM EDT CLINICAL INDICATION: tibial plateau frx TECHNIQUE: XR TIBIA FIBULA LEFT 2+ VIEWS, XR KNEE LEFT 3 VIEWS, XR CHEST 1 VIEW, XR HIP LEFT 2 OR 3 VIEWS, XR FEMUR LEFT 2+ VIEWS, XR ANKLE LEFT 3+ VIEWS COMPARISON: Left lower extremity CT from 12/31/2024 Left tibia fibula and knee radiographs from 09/15/2023, left femur radiographs from 09/10/2023 chest radiograph 09/11/2023 FINDINGS: Chest: The mediastinal and cardiac contours are normal and stable. No consolidation, pleural effusion, pulmonary edema or pneumothorax. No acute osseous abnormality. Left hip: Postsurgical changes of left intramedullary nail. No acute fracture or malalignment. Left femur: Post surgical changes of left intramedullary nail. No acute fracture or malalignment. Interval increased callus formation/healing about the previous proximal femur fracture. Left knee: Redemonstrated are postsurgical changes of lateral plate and screw fixation with lateral tibial pins. There appears to be from early origin is fracture through the posterior aspect of the proximal left tibia reveal involving the medial tibial plateau. Moderate suprapatellar effusion. Soft tissue swelling about the soft tissues of the left knee. Left tib-fib: No acute fracture or malalignment in the distal tibia or fibula. Joint spaces are intact. Left ankle: No acute fracture or malalignment. The ankle mortise is symmetric. Diffuse soft tissue swelling about the lower extremity/ankle. Procedure Note Jeff Georges MD - 01/01/2025 CLINICAL INDICATION: tibial plateau frx TECHNIQUE: XR TIBIA FIBULA LEFT 2+ VIEWS, XR KNEE LEFT 3 VIEWS, XR CHEST 1 VIEW, XRHIP LEFT 2 OR 3 VIEWS, XR FEMUR LEFT 2+ VIEWS, XR ANKLE LEFT 3+ VIEWS COMPARISON: Left lower extremity CT from 12/31/2024 Left tibia fibula and kneeradiographs from 09/15/2023, left femur radiographs from 09/10/2023 chestradiograph 09/11/2023 FINDINGS: Chest: The mediastinal and cardiac contours are normal and stable. Noconsolidation, pleural effusion, pulmonary edema or pneumothorax. No acuteosseous abnormality. Left hip: Postsurgical changes of left intramedullary nail. No acute fracture ormalalignment. Left femur: Post surgical changes of left intramedullary nail. No acute fracture ormalalignment. Interval increased callus formation/healing about theprevious proximal femur fracture. Left knee: Redemonstrated are postsurgical changes of lateral plate and screwfixation with lateral tibial pins. There appears to be from early originis fracture through the posterior aspect of the proximal left tibia revealinvolving the medial tibial plateau. Moderate suprapatellar effusion. Softtissue swelling about the soft tissues of the left knee. Left tib-fib: No acute fracture or malalignment in the distal tibia or fibula. Jointspaces are intact. Left ankle: No acute fracture or malalignment. The ankle mortise is symmetric. Diffusesoft tissue swelling about the lower extremity/ankle. IMPRESSION: Additional fracture of the proximal left tibia primarily involving theposterior aspect of the medial tibial plateau. CRITICAL RESULT: No. COMMUNICATION: Per this written report. Preliminary report signed by Richard Head MD on 01/01/2025 2:33 AM By electronically signing this report, I, the attending physician, attestthat I have personally reviewed the images/data for the aboveexamination(s) and agree with the final edited report. Drafted by Richard Head MD on 01/01/2025 2:10 AM Final report signed by Jeff Georges MD on 01/01/2025 2:47 AM us Miguel Perera MD IMG XR PROCEDURES Final Result * XR Tibia Fibula Left 2+ Views (01/01/2025 1:43 AM EDT) Anatomical Region Laterality Modality Lower Extremities, Lower Leg Left Dig ital Radiography Impressions 01/01/2025 2:47 AM EDT Additional fracture of the proximal left tibia primarily involving the posterior aspect of the medial tibial plateau. CRITICAL RESULT: No. COMMUNICATION: Per this written report. Preliminary report signed by Richard Head MD on 01/01/2025 2:33 AM By electronically signing this report, I, the attending physician, attest that I have personally reviewed the images/data for the above examination(s) and agree with the final edited report. Drafted by Richard Head MD on 01/01/2025 2:10 AM Final report signed by Jeff Georges MD on 01/01/2025 2:47 AM Narrative 01/01/2025 2:47 AM EDT CLINICAL INDICATION: tibial plateau frx TECHNIQUE: XR TIBIA FIBULA LEFT 2+ VIEWS, XR KNEE LEFT 3 VIEWS, XR CHEST 1 VIEW, XR HIP LEFT 2 OR 3 VIEWS, XR FEMUR LEFT 2+ VIEWS, XR ANKLE LEFT 3+ VIEWS COMPARISON: Left lower extremity CT from 12/31/2024 Left tibia fibula and knee radiographs from 09/15/2023, left femur radiographs from 09/10/2023 chest radiograph 09/11/2023 FINDINGS: Chest: The mediastinal and cardiac contours are normal and stable. No consolidation, pleural effusion, pulmonary edema or pneumothorax. No acute osseous abnormality. Left hip: Postsurgical changes of left intramedullary nail. No acute fracture or malalignment. Left femur: Post surgical changes of left intramedullary nail. No acute fracture or malalignment. Interval increased callus formation/healing about the previous proximal femur fracture. Left knee: Redemonstrated are postsurgical changes of lateral plate and screw fixation with lateral tibial pins. There appears to be from early origin is fracture through the posterior aspect of the proximal left tibia reveal involving the medial tibial plateau. Moderate suprapatellar effusion. Soft tissue swelling about the soft tissues of the left knee. Left tib-fib: No acute fracture or malalignment in the distal tibia or fibula. Joint spaces are intact. Left ankle: No acute fracture or malalignment. The ankle mortise is symmetric. Diffuse soft tissue swelling about the lower extremity/ankle. Procedure Note Jeff Georges MD - 01/01/2025 CLINICAL INDICATION: tibial plateau frx TECHNIQUE: XR TIBIA FIBULA LEFT 2+ VIEWS, XR KNEE LEFT 3 VIEWS, XR CHEST 1 VIEW, XRHIP LEFT 2 OR 3 VIEWS, XR FEMUR LEFT 2+ VIEWS, XR ANKLE LEFT 3+ VIEWS COMPARISON: Left lower extremity CT from 12/31/2024 Left tibia fibula and kneeradiographs from 09/15/2023, left femur radiographs from 09/10/2023 chestradiograph 09/11/2023 FINDINGS: Chest: The mediastinal and cardiac contours are normal and stable. Noconsolidation, pleural effusion, pulmonary edema or pneumothorax. No acuteosseous abnormality. Left hip: Postsurgical changes of left intramedullary nail. No acute fracture ormalalignment. Left femur: Post surgical changes of left intramedullary nail. No acute fracture ormalalignment. Interval increased callus formation/healing about theprevious proximal femur fracture. Left knee: Redemonstrated are postsurgical changes of lateral plate and screwfixation with lateral tibial pins. There appears to be from early originis fracture through the posterior aspect of the proximal left tibia revealinvolving the medial tibial plateau. Moderate suprapatellar effusion. Softtissue swelling about the soft tissues of the left knee. Left tib-fib: No acute fracture or malalignment in the distal tibia or fibula. Jointspaces are intact. Left ankle: No acute fracture or malalignment. The ankle mortise is symmetric. Diffusesoft tissue swelling about the lower extremity/ankle. IMPRESSION: Additional fracture of the proximal left tibia primarily involving theposterior aspect of the medial tibial plateau. CRITICAL RESULT: No. COMMUNICATION: Per this written report. Preliminary report signed by Richard Head MD on 01/01/2025 2:33 AM By electronically signing this report, I, the attending physician, attestthat I have personally reviewed the images/data for the aboveexamination(s) and agree with the final edited report. Drafted by Richard Head MD on 01/01/2025 2:10 AM Final report signed by Jeff Georges MD on 01/01/2025 2:47 AM us Miguel Perera MD IMG XR PROCEDURES Final Result * XR Knee Left 3 Views (01/01/2025 1:43 AM EDT) Anatomical Region Laterality Modality Lower Extremities, Knee Left Digital Radiography Impressions 01/01/2025 2:47 AM EDT Additional fracture of the proximal left tibia primarily involving the posterior aspect of the medial tibial plateau. CRITICAL RESULT: No. COMMUNICATION: Per this written report. Preliminary report signed by Richard Head MD on 01/01/2025 2:33 AM By electronically signing this report, I, the attending physician, attest that I have personally reviewed the images/data for the above examination(s) and agree with the final edited report. Drafted by Richard Head MD on 01/01/2025 2:10 AM Final report signed by Jeff Georges MD on 01/01/2025 2:47 AM Narrative 01/01/2025 2:47 AM EDT CLINICAL INDICATION: tibial plateau frx TECHNIQUE: XR TIBIA FIBULA LEFT 2+ VIEWS, XR KNEE LEFT 3 VIEWS, XR CHEST 1 VIEW, XR HIP LEFT 2 OR 3 VIEWS, XR FEMUR LEFT 2+ VIEWS, XR ANKLE LEFT 3+ VIEWS COMPARISON: Left lower extremity CT from 12/31/2024 Left tibia fibula and knee radiographs from 09/15/2023, left femur radiographs from 09/10/2023 chest radiograph 09/11/2023 FINDINGS: Chest: The mediastinal and cardiac contours are normal and stable. No consolidation, pleural effusion, pulmonary edema or pneumothorax. No acute osseous abnormality. Left hip: Postsurgical changes of left intramedullary nail. No acute fracture or malalignment. Left femur: Post surgical changes of left intramedullary nail. No acute fracture or malalignment. Interval increased callus formation/healing about the previous proximal femur fracture. Left knee: Redemonstrated are postsurgical changes of lateral plate and screw fixation with lateral tibial pins. There appears to be from early origin is fracture through the posterior aspect of the proximal left tibia reveal involving the medial tibial plateau. Moderate suprapatellar effusion. Soft tissue swelling about the soft tissues of the left knee. Left tib-fib: No acute fracture or malalignment in the distal tibia or fibula. Joint spaces are intact. Left ankle: No acute fracture or malalignment. The ankle mortise is symmetric. Diffuse soft tissue swelling about the lower extremity/ankle. Procedure Note Jeff Georges MD - 01/01/2025 CLINICAL INDICATION: tibial plateau frx TECHNIQUE: XR TIBIA FIBULA LEFT 2+ VIEWS, XR KNEE LEFT 3 VIEWS, XR CHEST 1 VIEW, XRHIP LEFT 2 OR 3 VIEWS, XR FEMUR LEFT 2+ VIEWS, XR ANKLE LEFT 3+ VIEWS COMPARISON: Left lower extremity CT from 12/31/2024 Left tibia fibula and kneeradiographs from 09/15/2023, left femur radiographs from 09/10/2023 chestradiograph 09/11/2023 FINDINGS: Chest: The mediastinal and cardiac contours are normal and stable. Noconsolidation, pleural effusion, pulmonary edema or pneumothorax. No acuteosseous abnormality. Left hip: Postsurgical changes of left intramedullary nail. No acute fracture ormalalignment. Left femur: Post surgical changes of left intramedullary nail. No acute fracture ormalalignment. Interval increased callus formation/healing about theprevious proximal femur fracture. Left knee: Redemonstrated are postsurgical changes of lateral plate and screwfixation with lateral tibial pins. There appears to be from early originis fracture through the posterior aspect of the proximal left tibia revealinvolving the medial tibial plateau. Moderate suprapatellar effusion. Softtissue swelling about the soft tissues of the left knee. Left tib-fib: No acute fracture or malalignment in the distal tibia or fibula. Jointspaces are intact. Left ankle: No acute fracture or malalignment. The ankle mortise is symmetric. Diffusesoft tissue swelling about the lower extremity/ankle. IMPRESSION: Additional fracture of the proximal left tibia primarily involving theposterior aspect of the medial tibial plateau. CRITICAL RESULT: No. COMMUNICATION: Per this written report. Preliminary report signed by Richard Head MD on 01/01/2025 2:33 AM By electronically signing this report, I, the attending physician, attestthat I have personally reviewed the images/data for the aboveexamination(s) and agree with the final edited report. Drafted by Richard Head MD on 01/01/2025 2:10 AM Final report signed by Jeff Georges MD on 01/01/2025 2:47 AM Miguel Perera MD IMG XR PROCEDURES Final Result * Creatine Kinase (CK), Total (01/01/2025 12:35 AM EDT) Creatine Kinase, Plasma 65 49 - 320 U/L 01/01/2025 2:56 AM EDT [facility] Blood Venous blood specimen / Unknown Venipuncture / Unknown 01/01/2025 12:35 AM EDT 01/01/2025 12:41 AM EDT Miguel Perera MD LAB BLOOD ORDERABLES Final Resu lt [facility] [address] [place] [address] * ED HIV 1/2 Antibody/Antigen Screen w/Reflex to HIV 1/2 Differentiation (01/01/2025 12:35 AM EDT) HIV 1 & 2 Antibody/Antigen Screen Non Reactive Non Reactive 01/01/2025 1:33 AM EDT [facility] Comment:Screening for HIV 1 & 2 antibodies, and P24 antigen is NONREACTIVE. No confirmatory testing is required. Blood Venous blood specimen / Unknown Venipuncture / Unknown 01/01/2025 12:35 AM EDT 01/01/2025 12:52 AM EDT us Miguel Perera MD LAB BLOOD ORDERABLES Final Resu lt Performing Organization Address [facility] Co de Phone Number [facility] [address] [place] [address] * Hepatitis C Antibody - ED (01/01/2025 12:35 AM EDT) Hepatitis C Antibody Negative Negative 01/01/2025 1:33 AM EDT [facility] Blood Venous blood specimen / Unknown Venipuncture / Unknown 01/01/2025 12:35 AM EDT 01/01/2025 12:52 AM EDT us Miguel Perera MD LAB BLOOD ORDERABLES Final Resu lt Performing Organization Address [facility]/ZIP Co de Phone Number [facility] [address] [place] [address] * PT-INR (01/01/2025 12:35 AM EDT) Prothrombin Time 14.1 12.0 - 14.3 sec 01/01/2025 1:00 AM EDT [facility] INR 1.1 0.9 - 1.1 01/01/2025 1:00 AM EDT [facility] Blood Venous blood specimen / Unknown Venipuncture / Unknown 01/01/2025 12:35 AM EDT 01/01/2025 12:41 AM EDT Narrative [facility] - 01/01/2025 1:00 AM EDT OPTIMAL INR RANGES FOR PATIENT ON ORAL ANTICOAGULANT THERAPY Prevention of venous thromboembolism INR 2.0 to 3.0 In patients with heart disease: Atrial fibrillation INR 2.0 to 3.0 Valvular heart disease INR 2.0 to 3.0 Tissue heart valves INR 2.0 to 3.0 Mechanical prosthetic valves INR 2.5 to 3.5 Prevention of recurrent [place] INR 2.5 to 3.5 us Miguel Perera MD LAB BLOOD ORDERABLES Final Resu lt [facility] [address] [place] [address] * (ABNORMAL) CMP (01/01/2025 12:35 AM EDT) Glucose, Plasma 110(H) 74 - 99 mg/dL 01/01/2025 1:07 AM EDT [facility] BUN, Plasma 6(L) 7 - 21 mg/dL 01/01/2025 1:07 AM EDT [facility] Creatinine, Plasma 0.72 0.70 - 1.20 mg/dL 01/01/2025 1:07 AM EDT [facility] BUN/Creatinine Ratio 8 01/01/2025 1:07 AM EDT [facility] Sodium, Plasma 136 136 - 145 mmol/L 01/01/2025 1:07 AM EDT [facility] Potassium, Plasma 3.7 3.6 - 4.9 mmol/L 01/01/2025 1:07 AM EDT [facility] Chloride, Plasma 101 97 - 107 mmol/L 01/01/2025 1:07 AM EDT [facility] CO2, Plasma 24 22 - 29 mmol/L 01/01/2025 1:07 AM EDT [facility] Anion Gap 11 6 - 16 mmol/L 01/01/2025 1:07 AM EDT [facility] Total Calcium, Plasma 8.6(L) 8.9 - 10.2 mg/dL 01/01/2025 1:07 AM EDT [facility] Total Protein 6.7 6.3 - 7.9 g/dL 01/01/2025 1:07 AM EDT [facility] Albumin, Plasma 3.8 3.5 - 5.2 g/dL 01/01/2025 1:07 AM EDT [facility] AST, Plasma 17 10 - 50 U/L 01/01/2025 1:07 AM EDT [facility] ALT, Plasma 33 10 - 50 U/L 01/01/2025 1:07 AM EDT [facility] Alkaline Phosphatase, Plasma 98 40 - 115 U/L 01/01/2025 1:07 AM EDT [facility] Total Bilirubin, Plasma 0.4 0.2 - 1.1 mg/dL 01/01/2025 1:07 AM EDT [facility] eGFRcr 122.2 mL/min/1.7 3m*2 01/01/2025 1:07 AM EDT [facility] Comment:Reported eGFRcr in m L/min/1.73m2 is based the CKD-EPI 2020 equation that does not use a race coefficient. Blood Venous blood specimen / Unknown Venipuncture / Unknown 01/01/2025 12:35 AM EDT 01/01/2025 12:41 AM EDT us Miguel Perera MD LAB BLOOD ORDERABLES Final Resu lt [facility] [address] [place] [address] * (ABNORMAL) CBC w/diff (01/01/2025 12:35 AM EDT) WBC Count 9.24 3.70 - 10.30 10*3/uL LAB HEMATOLOGY METHOD 01/01/2025 12:45 AM EDT [facility] RBC Count 4.75 4.60 - 6.10 10*6/uL LAB HEMATOLOGY METHOD 01/01/2025 12:45 AM EDT [facility] HGB 14.2 13.7 - 17.5 g/dL LAB HEMATOLOGY METHOD 01/01/2025 12:45 AM EDT [facility] HCT 43.1 40.0 - 51.0 % LAB HEMATOLOGY METHOD 01/01/2025 12:45 AM EDT [facility] Platelet Count 229 155 - 369 10*3/uL LAB HEMATOLOGY METHOD 01/01/2025 12:45 AM EDT [facility] MCV 91 79 - 98 fL LAB HEMATOLOGY METHOD 01/01/2025 12:45 AM EDT [facility] MCH 29.9 26.0 - 32.0 pg LAB HEMATOLOGY METHOD 01/01/2025 12:45 AM EDT [facility] MCHC 32.9 30.7 - 35.5 g/dL LAB HEMATOLOGY METHOD 01/01/2025 12:45 AM EDT [facility] RDW 13.2 11.5 - 14.5 % LAB HEMATOLOGY METHOD 01/01/2025 12:45 AM EDT [facility] MPV 10.8 8.8 - 12.5 fL LAB HEMATOLOGY METHOD 01/01/2025 12:45 AM EDT [facility] nRBC 0.0 <=0.0 per 100 WBCs LAB HEMATOLOGY METHOD 01/01/2025 12:45 AM EDT [facility] Differential Type Automated LAB HEMATOLOGY METHOD 01/01/2025 12:45 AM EDT [facility] Neutrophils % 66 % LAB HEMATOLOGY METHOD 01/01/2025 12:45 AM EDT [facility] Lymphocytes % 21 % LAB HEMATOLOGY METHOD 01/01/2025 12:45 AM EDT [facility] Monocytes % 10 % LAB HEMATOLOGY METHOD 01/01/2025 12:45 AM EDT [facility] Eosinophils % 3 % LAB HEMATOLOGY METHOD 01/01/2025 12:45 AM EDT [facility] Basophils % 0 % LAB HEMATOLOGY METHOD 01/01/2025 12:45 AM EDT [facility] Immature Granulocytes % 0 % LAB HEMATOLOGY METHOD 01/01/2025 12:45 AM EDT [facility] Neutrophils Absolute 6.03 1.60 - 6.10 10*3/uL LAB HEMATOLOGY METHOD 01/01/2025 12:45 AM EDT [facility] Lymphocytes Absolute 1.95 1.20 - 3.90 10*3/uL LAB HEMATOLOGY METHOD 01/01/2025 12:45 AM EDT [facility] Monocytes Absolute 0.95(H) 0.30 - 0.90 10*3/uL LAB HEMATOLOGY METHOD 01/01/2025 12:45 AM EDT [facility] Eosinophils Absolute 0.25 0.00 - 0.50 10*3/uL LAB HEMATOLOGY METHOD 01/01/2025 12:45 AM EDT [facility] Basophils Absolute 0.03 0.00 - 0.10 10*3/uL LAB HEMATOLOGY METHOD 01/01/2025 12:45 AM EDT [facility] Immature Granulocytes Absolute 0.03 0.00 - 0.06 10*3/uL LAB HEMATOLOGY METHOD 01/01/2025 12:45 AM EDT [facility] Blood Venous blood specimen / Unknown Venipuncture / Unknown 01/01/2025 12:35 AM EDT 01/01/2025 12:41 AM EDT Narrative [facility] - 01/01/2025 12:45 AM EDT Therapeutic decision making should be based on absolute values, rather than percentages. us Miguel Perera MD LAB BLOOD ORDERABLES Final Resu lt Performing Organization Address [facility]/ZIP Co de Phone Number [facility] [address] [place] [address] * Light Green Top (01/01/2025 12:27 AM EDT) Extra Hold for add-ons 01/01/2025 3:02 AM EDT [facility] Comment:Auto resulted. Blood Venous blood specimen / Unknown 01/01/2025 12:27 AM EDT 01/01/2025 12:42 AM EDT us Miguel Perera MD LAB BLOOD ORDERABLES Final Resu lt [facility] [address] [place] [address] * EKG now - STAT (adult) (01/01/2025 12:26 AM EDT) EKG DIAGNOSIS CLASS Normal MUSE ECG Ventricular Rate 81 BPM MUSE ECG Atrial Rate [address] Interval 118 ms MUSE ECG QRSD Interval 106 ms MUSE ECG QT Interval 372 ms MUSE ECG QTC Interval 432 ms MUSE ECG P Cushing 55 degrees MUSE ECG R C[place] 54 degrees MUSE ECG T Wave C[place] 48 degrees MUSE ECG Diagnosis Normal sinus rhythm MUSE ECG Diagnosis Normal ECG MUSE ECG Diagnosis MUSE ECG Diagnosis Confirmed by Johnathan Black ([id number]) on 01/01/2025 9:03:10 AM MUSE ECG 01/01/2025 12:2 6 AM EDT 01/01/2025 9:03 AM EDT us Miguel Perera MD ECG ORDERABLES Final Result MUSE ECG documented in this encounter Visit Diagnoses Diagnosis Closed fracture of lateral portion of left tibial plateau, initial encounter Closed fracture of lateral portion of left tibial plateau, initial encounter documented in this encounter Admitting Diagnoses Diagnosis Closed fracture of lateral portion of left tibial plateau Closed fracture of lateral portion of left tibial plateau, initial encounter documented in this encounter Administered Medications Inactive Administered Medications - up to 3 most recent administrations Medication Order MAR Action Action Date Dose Rate Site acetaminophen (Tylenol) tablet 1,000 mg 1,000 mg, Oral, Once, 1 dose, On Mon01/01/25 at 0025, STAT Given 01/01/2025 12:37 AM EDT 1,000 mg acetaminophen (Tylenol) tablet 1,000 mg 1,000 mg, Oral, Every 6 hours, First dose on Mon01/01/25 at 0655, Until Discontinued, Routine Given 01/02/2025 6:37 AM EDT 1,000 mg Given 01/01/2025 11:06 PM EDT 1,000 mg Given 01/01/2025 6:04 PM EDT 1,000 mg bisacodyl (Dulcolax) suppository 10 mg 10 mg, Rectal, Daily PRN, Starting on Mon01/01/25 at 0650, Until Sneha 01/02/25 at 1409, Routine, constipation, if no bowel movement for 72 hours and no response to magnesium hydroxide ceFAZolin (Ancef) injection 2 g 2 g, Intravenous, Every 8 hours, 3 doses, First dose on Mon01/01/25 at 1945, Last dose on Sneha 01/02/25 at 1145, Routine, Recovery(Phase II-Outpatient)/On Unit(Inpatient) Given 01/02/2025 2:46 AM EDT 2 g Given 01/01/2025 8:27 PM EDT 2 g enoxaparin (Lovenox) syringe 60 mg 60 mg, Subcutaneous, 2 times daily, 54 doses, First dose (after last modification) on Mon01/02/25 at 0945, Last dose on Mon01/28/25 at 2100, Routine Given 01/02/2025 9:03 AM EDT 60 mg Right Lower Abdomen fentaNYL (Sublimaze) injection 50 mcg 50 mcg, Intravenous, Every 5 min PRN, 2 doses, Starting on Mon01/01/25 at 1241, Until Mon01/01/25 at 1415, Routine, Recovery (Phase I only), pain score of 5-8 out of 10 Given 01/01/2025 2:15 PM EDT 50 mcg Given 01/01/2025 2:10 PM EDT 50 mcg gabapentin (Neurontin) capsule 200 mg 200 mg, Oral, Once as needed, 1 dose, Starting on Mon01/01/25 at 1527, Until Mon01/01/25 at 1530, Routine, Recovery (Phase I only), neuropathic pain Given 01/01/2025 3:30 PM EDT 200 mg HYDROmorphone (Dilaudid) injection 0.5 mg 0.5 mg, Intravenous, Every 10 min PRN, 2 doses, Starting on Mon01/01/25 at 1241, Until Mon01/01/25 at 1410, Routine, Recovery (Phase I only), pain score of 9-10 out of 10 Given 01/01/2025 2:10 PM EDT 0.5 mg Given 01/01/2025 1:45 PM EDT 0.5 mg ibuprofen tablet 400 mg 400 mg, Oral, Every 4 hours PRN, Starting on Mon01/01/25 at 0652, Until Mon01/02/25 at 1409, Routine, mild pain Given 01/01/2025 6:04 PM EDT 400 mg Given 01/01/2025 2:10 PM EDT 400 mg ibuprofen tablet 600 mg 600 mg, Oral, Once, 1 dose, On Mon01/01/25 at 0025, STAT Given 01/01/2025 12:38 AM EDT 600 mg labetalol (Normodyne,Trandate) injection 10 mg 10 mg, Intravenous, Every 30 min PRN, 2 doses, Starting on Mon01/01/25 at 1406, Until Mon01/01/25 at 1601, Routine, Recovery (Phase I only), high blood pressure, SBP > 160, hold if HR < 65 Given 01/01/2025 2:40 PM EDT 10 mg magnesium hydroxide (Milk of Magnesia) 400 MG/5ML suspension 30 mL 30 mL, Oral, Daily PRN, Starting on Mon01/01/25 at 0650, Until Sneha 01/02/25 at 1409, Routine, constipation, if no bowel movement for 48 hours naloxone (Narcan) injection 0.08 mg 0.08 mg, Intravenous, As needed, Starting on Mon01/01/25 at 0652, Until Sneha 01/02/25 at 1409, Routine, respiratory depression, every 2 minutes nicotine (Nicoderm CQ) 21 MG/24HR patch 1 patch 1 patch, Transdermal, Daily, First dose on Mon01/01/25 at 0230, Until Discontinued, Routine Medication Applied 01/02/2025 2:29 AM EDT 1 patch Right Arm Medication Applied 01/01/2025 2:18 AM EDT 1 patch Right Arm oxyCODONE (Roxicodone) immediate release tablet 10 mg 10 mg, Oral, Once as needed, 2 doses, Starting on Mon01/01/25 at 1241, Until Mon01/01/25 at 1601, Routine, Recovery (Phase I only), pain score of 6-8 out of 10 Given 01/01/2025 1:45 PM EDT 10 mg oxyCODONE (Roxicodone) immediate release tablet 5 mg 5 mg, Oral, Once, 1 dose, On Mon01/01/25 at 0025, STAT Given 01/01/2025 12:38 AM EDT 5 mg oxyCODONE (Roxicodone) immediate release tablet 5 mg 5 mg, Oral, Every 4 hours PRN, Starting on Mon01/01/25 at 0652, Until Mon01/02/25 at 1409, Routine, moderate pain Given 01/02/2025 6:37 AM EDT 5 mg Given 01/01/2025 11:05 PM EDT 5 mg Given 01/01/2025 6:04 PM EDT 5 mg polyethylene glycol (Miralax) packet 17 g 17 g, Oral, Daily, First dose on Mon01/01/25 at 0900, Until Discontinued, Routine Given 01/02/2025 8:00 AM EDT 17 g Povidone-Iodine 5 % swab solution 1 Application Nasal, Once, 1 dose, On Mon01/01/25 at 0910, Routine Given 01/01/2025 9:18 AM EDT 1 Application senna-docusate (Hailey-Colace) 8.6-50 MG per tablet 1 tablet 1 tablet, Oral, 2 times daily, First dose on Mon01/01/25 at 0900, Until Discontinued, Routine Given 01/02/2025 8:00 AM EDT 1 tablet Given 01/01/2025 8:28 PM EDT 1 tablet Given 01/01/2025 8:22 AM EDT 1 tablet sodium chloride 0.9 % flush 10 mL 10 mL, Intravenous, Every 12 hours, First dose on Mon01/01/25 at 0910, Until Discontinued, Routine, Holding - Preprocedure Given 01/01/2025 9:18 AM EDT 10 mL sodium chloride 0.9 % flush 10 mL 10 mL, Intravenous, Every 12 hours, First dose on Mon01/01/25 at 0655, Until Discontinued, Routine Given 01/02/2025 6:38 AM EDT 10 mL Given 01/01/2025 6:05 PM EDT 10 mL Given 01/01/2025 7:12 AM EDT 10 mL sodium chloride 0.9 % flush 10 mL 10 mL, Intravenous, As needed, Starting on Mon01/01/25 at 0650, Until Sneha 01/02/25 at 1409, Routine, line care traMADol (Ultram) tablet 50 mg 50 mg, Oral, Every 6 hours PRN, Starting on Mon01/01/25 at 0652, Until Sneha 01/02/25 at 1409, Routine, severe pain, pain not responsive to non-opioid analgesics Given 01/01/2025 8:28 PM EDT 50 mg Given 01/01/2025 1:45 PM EDT 50 mg documented in this encounter Active and Recently Administered Medications Times are shown in EDT. Scheduled Medication Order 12/31/2024 01/01/2025 01/02/2025 acetaminophen (Tylenol) tablet 1,000 mg (COMPLETED) 1,000 mg, Oral, Once, 1 dose, On Mon01/01/25 at 0025, STAT 0037 (Given - Provider: Benedict Castillo, SHEREEN)0042 (Override Pull - Provider: Benedict Castillo RN) acetaminophen (Tylenol) tablet 1,000 mg 1,000 mg, Oral, Every 6 hours, First dose on Mon01/01/25 at 0655, Until Discontinued, Routine 0711 (Given - Provider: Loreta Marvin RN)1119 (OCT Hold - Provider: Automatic Transfer Provider - Reason: Patient in procedure)1255 (Dose Auto Held - Provider: Automatic Transfer Provider)1342 (MAR Unhold - Provider: Naty Castellanos, SHEREEN)1345 (Given - Provider: Naty Castellanos, SHEREEN)1804 (Given - Provider: Teri Mares RN)2306 (Given - Provider: Josefina Castaneda, SHEREEN) 0637 (Given - Provider: Josefina Castaneda RN)1255 (Canceled Entry - Provider: Automatic Discharge Provider - Comment: Automatically canceled at discontinue of medication order) ceFAZolin (Ancef) injection 2 g (CANCELED) 2 g, Intravenous, Every 8 hours, 3 doses, First dose on Mon01/01/25 at 1945, Last dose on Mon01/02/25 at 1145, Routine, Recovery(Phase II-Outpatient)/On Unit(Inpatient) 2026 (Given - Provider: Josefina Castaneda RN) 0246 (Given - Provider: Josefina Castaneda RN) ceFAZolin (Ancef) injection 3 g 3 g, Intravenous, Once, 1 dose, On Sneha 01/02/25 at 1200, Routine 1200 (Canceled Entry - Provider: Automatic Discharge Provider - Comment: Automatically canceled at discontinue of medication order) enoxaparin (Lovenox) syringe 60 mg 60 mg, Subcutaneous, 2 times daily, 54 doses, First dose (after last modification) on Sneha 01/02/25 at 0945, Last dose on Mon01/28/25 at 2100, Routine 0903 (Given - Provid er: Constance Castañeda RN) ibuprofen tablet 600 mg (COMPLETED) 600 mg, Oral, Once, 1 dose, On Mon01/01/25 at 0025, STAT 0038 (Given - Provider: Benedict Castillo, SHEREEN)0042 (Override Pull - Provider: Benedict Castillo, SHEREEN) nicotine (Nicoderm CQ) 21 MG/24HR patch 1 patch 1 patch, Transdermal, Daily, First dose on Mon01/01/25 at 0230, Until Discontinued, Routine 0218 (Medication Applied - Provider: Benedict Castillo, SHEREEN)1119 (OCT Hold - Provider: Automatic Transfer Provider - Reason: Patient in procedure)1342 (OCT Unhold - Provider: Naty Castellanos RN) 0229 (Medication Applied - Provider: Josefina Castaneda, SHEREEN) oxyCODONE (Roxicodone) immediate release tablet 5 mg (COMPLETED) 5 mg, Oral, Once, 1 dose, On Mon01/01/25 at 0025, STAT 0038 (Given - Provider: Benedict Castillo RN)0042 (Override Pull - Provider: Benedict Castillo, SHEREEN) polyethylene glycol (Miralax) packet 17 g 17 g, Oral, Daily, First dose on Mon01/01/25 at 0900, Until Discontinued, Routine 0826 (Not Given - Provider: Loreta Marvin RN - Reason: NPO)1119 (OCT Hold - Provider: Automatic Transfer Provider - Reason: Patient in procedure)1342 (OCT Unhold - Provider: Naty Castellanos RN) 0800 (Given - Provider: Constance Castañeda, SHEREEN) Povidone-Iodine 5 % swab solution 1 Application (COMPLETED) Nasal, Once, 1 dose, On Mon01/01/25 at 0910, Routine 0918 (Given - Provider: Genoveva Branham, SHEREEN) senna-docusate (Hailey-Colace) 8.6-50 MG per tablet 1 tablet 1 tablet, Oral, 2 times daily, First dose on Mon01/01/25 at 0900, Until Discontinued, Routine 0822 (Given - Provider: Loreta Marvin RN)1119 (OCT Hold - Provider: Automatic Transfer Provider - Reason: Patient in procedure)1342 (OCT Unhold - Provider: Naty Castellanos, SHEREEN)202 (Given - Provider: Josefina Castaneda, SHEREEN) 0800 (Given - Provider: Constance Castañeda RN) sodium chloride 0.9 % flush 10 mL (CANCELED)(Linked Group 1) 10 mL, Intravenous, Every 12 hours, First dose on Mon01/01/25 at 0910, Until Discontinued, Routine, Holding - Preprocedure 0918 (Given - Provider: Genoveva Branham, SHEREEN)1119 ([facility] Hold - Provider: Automatic Transfer Provider - Reason: Patient in procedure)1342 ([facility] Unhold - Provider: Naty Castellanos, SHEREEN) sodium chloride 0.9 % flush 10 mL(Linked Group 2) 10 mL, Intravenous, Every 12 hours, First dose on Mon01/01/25 at 0655, Until Discontinued, Routine 0712 (Given - Provider: Loreta Marvin, SHEREEN)1119 ([facility] Hold - Provider: Automatic Transfer Provider - Reason: Patient in procedure)1342 ([facility] Unhold - Provider: Naty Castellanos RN)1805 (Given - Provider: Teri Mares, SHEREEN) 0638 (Given - Provider: Josefina Castaneda, SHEREEN) PRN Medication Order 12/31/2024 01/01/2025 01/02/2025 bisacodyl (Dulcolax) suppository 10 mg 10 mg, Rectal, Daily PRN, Starting on Mon01/01/25 at 0650, Until Sneha 01/02/25 at 1409, Routine, constipation, if no bowel movement for 72 hours and no response to magnesium hydroxide 1119 ([facility] Hold - Provider: Automatic Transfer Provider - Reason: Patient in procedure)1342 ([facility] Unhold - Provider: Naty Castellanos, SHEREEN) fentaNYL (Sublimaze) injection 50 mcg (COMPLETED) 50 mcg, Intravenous, Every 5 min PRN, 2 doses, Starting on Mon01/01/25 at 1241, Until Mon01/01/25 at 1415, Routine, Recovery (Phase I only), pain score of 5-8 out of 10 1410 (Given - Provider: Naty Castellanos, SHEREEN)1415 (Given - Provider: Naty Castellanos, SHEREEN) gabapentin (Neurontin) capsule 200 mg (COMPLETED) 200 mg, Oral, Once as needed, 1 dose, Starting on Mon01/01/25 at 1527, Until Mon01/01/25 at 1530, Routine, Recovery (Phase I only), neuropathic pain 1530 (Given - Provider: Naty Castellanos, SHEREEN) HYDROmorphone (Dilaudid) injection 0.5 mg (COMPLETED) 0.5 mg, Intravenous, Every 10 min PRN, 2 doses, Starting on Mon01/01/25 at 1241, Until Mon01/01/25 at 1410, Routine, Recovery (Phase I only), pain score of 9-10 out of 10 1345 (Given - Provider: Naty Castellanos RN)1410 (Given - Provider: Naty Castellanos RN) ibuprofen tablet 400 mg 400 mg, Oral, Every 4 hours PRN, Starting on Mon01/01/25 at 0652, Until Sneha 01/02/25 at 1409, Routine, mild pain 1119 (OCT Hold - Provider: Automatic Transfer Provider - Reason: Patient in procedure)1342 (MAR Unhold - Provider: Naty Castellanos RN)1410 (Given - Provider: Naty Castellanos RN)1804 (Given - Provider: Teri Mares RN) labetalol (Normodyne,Trandate) injection 10 mg (CANCELED)(Linked Group 3) 10 mg, Intravenous, Every 30 min PRN, 2 doses, Starting on Mon01/01/25 at 1406, Until Mon01/01/25 at 1601, Routine, Recovery (Phase I only), high blood pressure, SBP > 160, hold if HR < 65 1440 (Given - Provider: Naty Castellanos RN) magnesium hydroxide (Milk of Magnesia) 400 MG/5ML suspension 30 mL 30 mL, Oral, Daily PRN, Starting on Mon01/01/25 at 0650, Until Sneha 01/02/25 at 1409, Routine, constipation, if no bowel movement for 48 hours 1119 (OCT Hold - Provider: Automatic Transfer Provider - Reason: Patient in procedure)1342 (MAR Unhold - Provider: Naty Castellanos RN) naloxone (Narcan) injection 0.08 mg 0.08 mg, Intravenous, As needed, Starting on Mon01/01/25 at 0652, Until Sneha 01/02/25 at 1409, Routine, respiratory depression, every 2 minutes 1119 (OCT Hold - Provider: Automatic Transfer Provider - Reason: Patient in procedure)1342 (MAR Unhold - Provider: Naty Castellanos RN) oxyCODONE (Roxicodone) immediate release tablet 10 mg (CANCELED)(Linked Group 4) 10 mg, Oral, Once as needed, 2 doses, Starting on Mon01/01/25 at 1241, Until Mon01/01/25 at 1601, Routine, Recovery (Phase I only), pain score of 6-8 out of 10 1345 (Given - Provider: Naty Castellanos, SHEREEN) oxyCODONE (Roxicodone) immediate release tablet 5 mg 5 mg, Oral, Every 4 hours PRN, Starting on Mon01/01/25 at 0652, Until Sneha 01/02/25 at 1409, Routine, moderate pain 0822 (Given - Provider: Loreta Marvin, SHEREEN)1119 (OCT Hold - Provider: Automatic Transfer Provider - Reason: Patient in procedure)1342 (OCT Unhold - Provider: Naty Castellanos RN)1804 (Given - Provider: Teri Mares, SHEREEN)2305 (Given - Provider: Josefina Castaneda, SHEREEN) 0637 (Given - Provider: Josefina Castaneda, SHEREEN) sodium chloride 0.9 % flush 10 mL(Linked Group 2) 10 mL, Intravenous, As needed, Starting on Mon01/01/25 at 0650, Until Sneha 01/02/25 at 1409, Routine, line care 1119 (OCT Hold - Provider: Automatic Transfer Provider - Reason: Patient in procedure)1342 ([facility] Unhold - Provider: Naty Castellanos, SHEREEN) traMADol (Ultram) tablet 50 mg 50 mg, Oral, Every 6 hours PRN, Starting on Mon01/01/25 at 0652, Until Sneha 01/02/25 at 1409, Routine, severe pain, pain not responsive to non-opioid analgesics 1119 (OCT Hold - Provider: Automatic Transfer Provider - Reason: Patient in procedure)1342 (OCT Unhold - Provider: Naty Castellanos, SHEREEN)1345 (Given - Provider: Naty Castellanos, SHEREEN)202 (Given - Provider: Josefina Castaneda RN) Linked Groups Order Group 1: Insert peripheral IV (CANCELED) Once, On Mon01/01/25 at 0909, For 1 occurrence, Holding - Preprocedure And Saline lock IV (CANCELED) Once, On Mon01/01/25 at 0909, For 1 occurrence, Holding - Preprocedure And sodium chloride 0.9 % flush 10 mL (CANCELED)Jump to med 10 mL, Intravenous, Every 12 hours, First dose on Mon01/01/25 at 0910, Until Discontinued, Routine, Holding - Preprocedure And sodium chloride 0.9 % flush 10 mL (CANCELED) 10 mL, Intravenous, As needed, Starting on Mon01/01/25 at 0909, Until Mon01/01/25 at 1601, Routine, Holding - Preprocedure, line care Group 2: Insert peripheral IV (COMPLETED) Once, On Mon01/01/25 at 0651, For 1 occurrence And Saline lock IV (COMPLETED) Once, On Mon01/01/25 at 0651, For 1 occurrence And sodium chloride 0.9 % flush 10 mLJump to med 10 mL, Intravenous, Every 12 hours, First dose on Mon01/01/25 at 0655, Until Discontinued, Routine And sodium chloride 0.9 % flush 10 mLJump to med 10 mL, Intravenous, As needed, Starting on Mon01/01/25 at 0650, Until Sneha 01/02/25 at 1409, Routine, line care Group 3: labetalol (Normodyne,Trandate) injection 10 mg (CANCELED)Jump to med 10 mg, Intravenous, Every 30 min PRN, 2 doses, Starting on Mon01/01/25 at 1406, Until Mon01/01/25 at 1601, Routine, Recovery (Phase I only), high blood pressure, SBP > 160, hold if HR < 65 Or labetalol (Normodyne,Trandate) injection 20 mg (CANCELED) 20 mg, Intravenous, Every 30 min PRN, 2 doses, Starting on Mon01/01/25 at 1406, Until Mon01/01/25 at 1601, Routine, Recovery (Phase I only), high blood pressure, SBP > 160, hold if HR < 65 Group 4: oxyCODONE (Roxicodone) immediate release tablet 5 mg (CANCELED) 5 mg, Oral, Once as needed, 2 doses, Starting on Mon01/01/25 at 1241, Until Mon01/01/25 at 1601, Routine, Recovery (Phase I only), pain score of 3-5 out of 10 Or oxyCODONE (Roxicodone) immediate release tablet 10 mg (CANCELED)Jump to med 10 mg, Oral, Once as needed, 2 doses, Starting on Mon01/01/25 at 1241, Until Mon01/01/25 at 1601, Routine, Recovery (Phase I only), pain score of 6-8 out of 10 documented in this encounter Additional Health Concerns Assessment Noted Time A fall risk assessment has been complete d for the patient 10/04/2023 8:38 AM EST A Body Mass Index follow-up plan has been documented for the patient 01/02/2025 10:48 AM EDT documented as of this encounter Care Teams Welfare Adviser Relationship Specialty Start Date End Date Renetta Pardo APRN [address] [place] [address] [place] [address] PCP - General 09/09/23 documented as of this encounter
--- OUTSIDE RECORDS SUMMARY | 2025-01-01 10:30 | XMS_ITS | Encounter Summary ---
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 INR 2.0 to 3.0 Valvular heart disease INR 2.0 to 3.0 Tissue heart valves INR 2.0 to 3.0 Mechanical prosthetic valves INR 2.5 to 3.5 Prevention of recurrent DE INR 2.5 to 3.5 Result Tobias Das MD LAB BLOOD ORDERABLES Final Resu lt Performing Organization Address City/[facility] [address]/[place] [address] * (ABNORMAL) CMP (01/01/2025 12:35 AM EDT) Glucose, Plasma 110(H) 74 - 99 mg/dL 01/01/2025 1:07 AM EDT [facility] BUN, Plasma 6(L) 7 - 21 mg/dL 01/01/2025 1:07 AM EDT [facility] Creatinine, Plasma 0.72 0.70 - 1.20 mg/dL 01/01/2025 1:07 AM EDT [facility] BUN/Creatinine Ratio 8 01/01/2025 1:07 AM EDT [facility] Sodium, Plasma 136 136 - 145 mmol/L 01/01/2025 1:07 AM EDT [facility] Potassium, Plasma 3.7 3.6 - 4.9 mmol/L 01/01/2025 1:07 AM EDT [facility] Chloride, Plasma 101 97 - 107 mmol/L 01/01/2025 1:07 AM EDT [facility] CO2, Plasma 24 22 - 29 mmol/L 01/01/2025 1:07 AM EDT [facility] Anion Gap 11 6 - 16 mmol/L 01/01/2025 1:07 AM EDT [facility] Total Calcium, Plasma 8.6(L) 8.9 - 10.2 mg/dL 01/01/2025 1:07 AM EDT [facility] Total Protein 6.7 6.3 - 7.9 g/dL 01/01/2025 1:07 AM EDT [facility] Albumin, Plasma 3.8 3.5 - 5.2 g/dL 01/01/2025 1:07 AM EDT [facility] AST, Plasma 17 10 - 50 U/L 01/01/2025 1:07 AM EDT [facility] ALT, Plasma 33 10 - 50 U/L 01/01/2025 1:07 AM EDT [facility] Alkaline Phosphatase, Plasma 98 40 - 115 U/L 01/01/2025 1:07 AM EDT [facility] Total Bilirubin, Plasma 0.4 0.2 - 1.1 mg/dL 01/01/2025 1:07 AM EDT [facility] eGFRcr 122.2 mL/min/1.7 3m*2 01/01/2025 1:07 AM EDT [facility] Comment:Reported eGFRcr in m L/min/1.73m2 is based the CKD-EPI 2020 equation that does not use a race coefficient. Blood Venous blood specimen / Unknown Venipuncture / Unknown 01/01/2025 12:35 AM EDT 01/01/2025 12:41 AM EDT us Miguel Das MD LAB BLOOD ORDERABLES Final Resu lt [facility] [address] [place] [address] * (ABNORMAL) CBC w/diff (01/01/2025 12:35 AM EDT) WBC Count 9.24 3.70 - 10.30 10*3/uL LAB HEMATOLOGY METHOD 01/01/2025 12:45 AM EDT [facility] RBC Count 4.75 4.60 - 6.10 10*6/uL LAB HEMATOLOGY METHOD 01/01/2025 12:45 AM EDT [facility] HGB 14.2 13.7 - 17.5 g/dL LAB HEMATOLOGY METHOD 01/01/2025 12:45 AM EDT [facility] HCT 43.1 40.0 - 51.0 % LAB HEMATOLOGY METHOD 01/01/2025 12:45 AM EDT [facility] Platelet Count 229 155 - 369 10*3/uL LAB HEMATOLOGY METHOD 01/01/2025 12:45 AM EDT [facility] MCV 91 79 - 98 fL LAB HEMATOLOGY METHOD 01/01/2025 12:45 AM EDT [facility] MCH 29.9 26.0 - 32.0 pg LAB HEMATOLOGY METHOD 01/01/2025 12:45 AM EDT [facility] MCHC 32.9 30.7 - 35.5 g/dL LAB HEMATOLOGY METHOD 01/01/2025 12:45 AM EDT [facility] RDW 13.2 11.5 - 14.5 % LAB HEMATOLOGY METHOD 01/01/2025 12:45 AM EDT [facility] MPV 10.8 8.8 - 12.5 fL LAB HEMATOLOGY METHOD 01/01/2025 12:45 AM EDT [facility] nRBC 0.0 <=0.0 per 100 WBCs LAB HEMATOLOGY METHOD 01/01/2025 12:45 AM EDT [facility] Differential Type Automated LAB HEMATOLOGY METHOD 01/01/2025 12:45 AM EDT [facility] Neutrophils % 66 % LAB HEMATOLOGY METHOD 01/01/2025 12:45 AM EDT [facility] Lymphocytes % 21 % LAB HEMATOLOGY METHOD 01/01/2025 12:45 AM EDT [facility] Monocytes % 10 % LAB HEMATOLOGY METHOD 01/01/2025 12:45 AM EDT [facility] Eosinophils % 3 % LAB HEMATOLOGY METHOD 01/01/2025 12:45 AM EDT [facility] Basophils % 0 % LAB HEMATOLOGY METHOD 01/01/2025 12:45 AM EDT [facility] Immature Granulocytes % 0 % LAB HEMATOLOGY METHOD 01/01/2025 12:45 AM EDT [facility] Neutrophils Absolute 6.03 1.60 - 6.10 10*3/uL LAB HEMATOLOGY METHOD 01/01/2025 12:45 AM EDT [facility] Lymphocytes Absolute 1.95 1.20 - 3.90 10*3/uL LAB HEMATOLOGY METHOD 01/01/2025 12:45 AM EDT [facility] Monocytes Absolute 0.95(H) 0.30 - 0.90 10*3/uL LAB HEMATOLOGY METHOD 01/01/2025 12:45 AM EDT [facility] Eosinophils Absolute 0.25 0.00 - 0.50 10*3/uL LAB HEMATOLOGY METHOD 01/01/2025 12:45 AM EDT [facility] Basophils Absolute 0.03 0.00 - 0.10 10*3/uL LAB HEMATOLOGY METHOD 01/01/2025 12:45 AM EDT [facility] Immature Granulocytes Absolute 0.03 0.00 - 0.06 10*3/uL LAB HEMATOLOGY METHOD 01/01/2025 12:45 AM EDT [facility] Blood Venous blood specimen / Unknown Venipuncture / Unknown 01/01/2025 12:35 AM EDT 01/01/2025 12:41 AM EDT Narrative [facility] - 01/01/2025 12:45 AM EDT Therapeutic decision making should be based on absolute values, rather than percentages. us Miguel Das MD LAB BLOOD ORDERABLES Final Resu lt Performing Organization Address [facility] [address]/ZIP Co de Phone Number [facility] [address] [place] [address] * Light Green Top (01/01/2025 12:27 AM EDT) Extra Hold for add-ons 01/01/2025 3:[address] [facility] Comment:Auto resulted. Blood Venous blood specimen / Unknown 01/01/2025 12:27 AM EDT 01/01/2025 12:42 AM EDT us Miguel Das MD LAB BLOOD ORDERABLES Final Resu lt Performing Organization Address [facility] Co de Phone Number [facility] [address] [place] [address] * EKG now - STAT (adult) (01/01/2025 12:26 AM EDT) EKG DIAGNOSIS CLASS Normal MUSE ECG Ventricular Rate 81 BPM MUSE ECG Atrial Rate 81 BPM MUSE ECG CA Interval 118 ms MUSE ECG QRSD Interval 106 ms MUSE ECG QT Interval 372 ms MUSE ECG QTC Interval 432 ms MUSE ECG P [place] 55 degrees MUSE ECG R [place] 54 degrees MUSE ECG T Wave [place] 48 degrees MUSE ECG Diagnosis Normal sinus rhythm MUSE ECG Diagnosis Normal ECG MUSE ECG Diagnosis MUSE ECG Diagnosis Confirmed by Johnathan Black ([id number]) on 01/01/2025 9:03:10 AM MUSE ECG 01/01/2025 12:2 6 AM EDT 01/01/2025 9:03 AM EDT us Miguel Das MD ECG ORDERABLES Final Result Performing Organization Address [facility] [address]/[facility] Co de Phone Number MUSE ECG [...] Transfer Provider - Reason: Patient in procedure)1342 ([facility] Unhold - Provider: Naty aCstellanos, SHEREEN)202 (Given - Provider: Josefina Castaneda RN) 0800 (Given - Provider: Constance Castañeda, SHEREEN) sodium chloride 0.9 % flush 10 mL (CANCELED)(Linked Group 1) 10 mL, Intravenous, Every 12 hours, First dose on Mon01/01/25 at 0910, Until Discontinued, Routine, Holding - Preprocedure 0918 (Given - Provider: Genoveva Branham RN)1119 ([facility] Hold - Provider: Automatic Transfer Provider - Reason: Patient in procedure)1342 ([facility] Unhold - Provider: Naty Castellanos RN) sodium [...] 01/02/25 at 1409, Routine, mild pain 1119 ([facility] Hold - Provider: Automatic Transfer [...] Transfer Provider - Reason: Patient in procedure)1342 ([facility] Unhold - Provider: Naty Castellanos RN) naloxone (Narcan) injection 0.08 mg 0.08 mg, Intravenous, As needed, Starting on Mon01/01/25 at 0652, Until Sneha 01/02/25 at 1409, Routine, respiratory depression, every 2 minutes 1119 ([facility] Hold - Provider: Automatic Transfer Provider - Reason: Patient in procedure)1342 ([facility] Unhold - Provider: Naty Castellanos [...] Transfer Provider - Reason: Patient in procedure)1342 ([facility] Unhold - Provider: Naty Castellanos RN)1345 [...] documented as of this encounter Care Teams [employer] Relationship Specialty Start Date End Date Renetta Pardo, YUN [address] [place] [address] [place] [address] PCP - General 09/09/23 documented as of this encounter
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
--- OUTSIDE RECORDS SUMMARY | 2025-01-15 21:32 | XMS_ITS | Encounter Summary ---
Author Organization Healthcare Address [address] [place] [address] Care Team Providers Care Oil Sales And Service Rep Name Role Phone Renetta Pardo APRN Primary Care Provider [phone] Reason for Visit * Reason Comments Post-op Problem * Auth/Cert (Routine) Specialty Diagnoses / Procedures Referred By Adalid t Referred To Contact Diagnoses Acute postoperative pain Cellulitis of leg, left Cellulitis of left lower extremity Sepsis following procedure, initial encounter ([facility]) recent LLE surgery @ now with cellulitis Sachin Garza MD [id number] [place] [address] Phone: tel: fax: [facility] [address] [place] [address] Phone: tel: Referral ID Status Reason Start Date Expiration Date Visits Re quested Visits Authorized [id number] 1 1 Encounter Details Date Type Department Care Team (Latest Contact Info) Description 01/15/2025 9:32 PM EDT - 01/22/2025 5:16 PM EDT Hospital Encounter [facility] [address] [place] [address] Philippe Mann MD [address] [place] [address] Jeffrey Matute MD [address] [place] [address] Danny Ly MD [address] [place] [address] Sachin Garza MD [address] [place] [address] Cellulitis of leg, left (Primary Dx); Sepsis following procedure, initial encounter ([facility]); Cellulitis of left lower extremity; Acute [...] place to sleep or slept in a halfway (including now)? No 09/12/2023 Humiliation, Afraid, Rape, [...] any time in the past 12 m [facility], were you homeless or living in a halfway (including now)? No 01/17/2025 CAGE ASSESSMENT Answer [...] drink first t traci in the morning ([employer]) to steady your nerves or to get rid of a hangover? 0 09/10/2023 CAGE Questionnaire Score 0 024 Utilities Answer Date Recorded In the past 12 months has th e De[employer], gas, oil, or water company threatened to [...] from the original note were not included. [address]108 Flushing Your PICC Line at Home Your [...] soap and water, use an alcohol-based hand deck steward. The gel should have at least 60% [...] PICC. Last Reviewed Date: 2024 00:00:00 ?? 6125-5825 [employer]. All rights reserved. This information is not intended as a substitute for professional medical care. Always follow your healthcare professional's instructions. * Rosaura RushFORMERLY [facility] - Leigh Rg RN - 01/22/2025 4:21 PM EDT Images from the original note were not included. 84243 Discharge Instructions: Changing the Dressing on Your [...] damage Last Reviewed Date: 2024 00:00:00 ?? 1240-4912 [employer]. All rights reserved. This information is not [...] the video go to this web address: [email or web address], scan this QR code with your smart phone ?? [employer] * Leigh Muller RN - 01/22/2025 4:20 PM EDT Images from the original note were not included. 46453 Understanding Post Sepsis Syndrome (PSS) Sepsis is [...] infections Last Reviewed Date: 2022 00:00:00 ?? 7231-2734 [employer]. All rights reserved. This information is not intended as a substitute for professional medical care. Always follow your healthcare professional's instructions. * Rosaura RushDILLON - Leigh Rg RN - 01/22/2025 4:20 PM EDT Images from the original note were not included. 200801tu Buckle (Torus) Fracture of a Leg Your [...] wet, you can dry it with a dental chair assembler on the cool setting. ? Put an [...] doctor Last Reviewed Date: 2024 00:00:00 ?? 4228-4548 [employer]. All rights reserved. This information is not intended as a substitute for professional medical care. Always follow your healthcare professional's instructions. * Rosaura RushDILLON - Leigh Rg RN - 01/22/2025 4:20 PM EDT Images from the original note were not included. 50825 Discharge Instructions for Cellulitis You have been [...] are in pain. Ask what kind of fmts-fyq-msqwxuh medicine you can take for pain. ? [...] Vomiting. Last Reviewed Date: 2024 00:00:00 ?? 1242-2455 [employer]. All rights reserved. This information is not intended as a substitute for professional medical care. Always follow your healthcare professional's instructions. * Discharge Summary - Mauricio Mondragon MD - 01/22/2025 4:16 PM EDT Hospitalization Admit Date/Time: 01/15/2025 9:32 PM Admitting Attending: Sachin Garza Discharge Date: 01/22/25 Discharge Attending Physician: Sachin Garza MD PCP name and Address: Renetta Pardo, BALE STACKER [address] [place] [address] [address] / [facility] [address] Referring provider name and address: Maldonado Luciano PA [address] [place] [address] [place] [address] Chief Concern, Brief History of Present Illness, and Hospital Course Patient arrived to [facility] on 01/15[facility]25 with concern for surgical [...] Your Medications These medications were sent to [facility] - [place], [place] - [address] [place], [facility] [address] DAPTOmycin injection These medications were sent to [facility] [place], [place] - [address] [facility] [address] oxyCODONE 5 MG immediate release capsule Discharge Diagnosis Medical Problems Active and Resolved Hospital Problems Hospital Closed fracture of left tibial plateau Overview Addendum 09/16/2023 1:42 PM by Rolanda Adams APRN, KALYANI ORT consulted TROM in place WB per ORT 09/15: ORIF L tibial plateau fx Follow up with Dr. Nava on 10/04 * (Principal) Cellulitis of leg, left Sepsis following procedure ([facility]) Cellulitis of left lower extremity Post [...] Time Provider Department Center 01/27/2025 11:[address] [facility] ORTHOPAEDICS ELECTRICIAN HELPER [facility] 02/03/2025 8:10 AM Lawrence Hayes MD [facility] 02/11/2025 1:00 PM Ary Santiago APRN [facility] [place] 03/03/2025 1:00 PM Ary Santiago APRN [facility]CCLX [...] General: Spoke with: Patient, Family, and Bedside nurse consultant and Interventions: Assessed: Dressing Dressing Interventions: CDI [...] please contact the Orthopedic Transition Nurse at [phone] Monday through Monday 8:00 am to 2:30 pm. If you feel your concern is a medical emergency please call 911 immediately * Progress Notes - Anna Elam RN - 01/22/2025 9:28 AM EDT Case Management Discharge Note Ravin Ribeiro 34 y.o. male CSN: [id number] Admission: 01/15/2025 9:32 PM Primary Problem: Cellulitis of leg, left Primary Home Advisor: Primary Caregiver: Self Assistance Available at Discharge: Current Outpatient/Agency/Support Group: DME Availability of Care Givers (#Hours): 24 hours Family/Home Advisor(s) Willingness Assessed to care for patient at home: Yes Family/Home Advisor(s) Readiness Assessed to care for patient at [...] Community Agency(s): Patient's Choice of Community Agency(s): [facility] Patient/Family Anticipated Services at Transition: Patient/Family Anticipated Services at Transition: outpatient care DME/Equipment Needed after Discharge: Equipment Currently Used at Home: walker, rolling, commode chair, wheelchair, manual Equipment Needed After Discharge: walker, rolling, commode chair Readmission Within the Last 30 Days: Readmission Within the Last 30 Days: other (see comments) (cellulitis) Medicare Documentation: Medicare Second Notice?: No (pt [place]) Follow-up: No follow-up provider specified. Discharge Transportation: Transportation Anticipated: family or friend will provide Transportation Home at Discharge: Family/Friend will Provide Has discharge transport been arranged?: No Follow Up Transport: Transportation Needed to Follow up Appoinments: Family/Friend will Provide Additional Comments: Per primary provider, pt is medically ready to discharge home with standard OPAT. PICC in place. Pt will follow up at [facility] for weekly PICC care and labs. First appointment is scheduled for 01/27 at 11 AM. Pt's family will be able to provide assistance and transportation. [employer] will complete teaching today and deliver IV ABX to bedside around 3 PM. Pt and S/O is aware and agreeable to discharge POC. [facility] [phone] Anna Elam RN * Progress Notes - [...] required Ayden Canseco MD PGY-1, Orthopaedic Surgery [facility] Orthopaedic Trauma Service Pager: [phone] Orthopaedic Recon/Spine/Foot and Ankle Service Pager: [phone] Cosigned by Lawrence Hayes MD at 01/22/2025 [...] required Red Mondragon MD Orthopaedic Surgery PGY-1 [facility] Orthopaedic Trauma Service Pager: [phone] Orthopaedic Recon/Spine/Foot and Ankle Service Pager: [phone] Personal Pager: [phone] Cosigned by Lawrence Hayes MD at 01/22/2025 1:06 PM EDT * Procedures - Norma Miranda RN - 01/21/2025 7:01 PM EDTAssociated Order(s): Insert PICC line Insert PICC line Date/Time: 01/21/2025 7:01 PM Performed by: Norma Miranda RN Authorized by: Sachin Garza MD [place] Protocol: Verbal consent obtained?: Yes Written consent [...] preference Patient position: Supine Catheter Lot #: [id number] Catheter sea captain: EnevateC Solo Catheter placed: Single lumen Catheter size: [...] 01/21/2025 3:28 PM EDT Referrals sent to [facility] and for for possible home IV antibiotic infusion. There was no accepting companies in patient's area. CM spoke with patient and he is agreeable to either go to his local hospital [facility] or come to [facility] in [place] for his weekly PICC care/labs if needed. * Nursing Note - Camden Vital RN - 01/21/2025 1:45 PM EDT Orthopedic Transition Nurse Note General: Spoke with: Patient, Family, and Bedside nurse consultant and Interventions: Assessed: Dressing Dressing Interventions: CDI [...] please contact the Orthopedic Transition Nurse at [phone] Monday through Monday 8:00 am to 2:30 pm. If you feel your concern is a medical emergency please call 911 immediately * Steff Odell RN - 01/21/2025 11:57 AM EDT Images from the original note were not included. [id number] PICC Line Care PICC stands for peripherally [...] arm Last Reviewed Date: 2024 00:00:00 ?? 9271-2488 [employer]. All rights reserved. This information is not intended as a substitute for professional medical care. Always follow your healthcare professional's instructions. * Steff Odell RN - 01/21/2025 11:56 AM EDT Images from the original note were not included. [id number] * Steff Odell RN - 01/21/2025 11:56 AM EDT Images from the original note were not included. [id number] * Steff Odell RN - 01/21/2025 11:56 [...] your house or a medical facility. The rn case mgr/psychosocial rehabilitation counselor will setthat up based on your insurance. [...] or during weekends/[place] holidays, call the paging oil well fishing tool operator at . Ask for the infectious disease fellow post tensioning ironworker helper. Call the clinic if you have any [...] from the original note were not included. 44328 Flushing Your PICC Line at Home Your [...] soap and water, use an alcohol-based hand deck steward. The gel should have at least 60% [...] PICC. Last Reviewed Date: 2024 00:00:00 ?? 1333-1666 [employer]. All rights reserved. This information is not intended as a substitute for professional medical care. Always follow your healthcare professional's instructions. * Rosaura RushFORMERLY [facility] - Steff Paz RN - 01/21/2025 11:56 AM EDT Images from the original note were not included. [id number] Daptomycin Injection Brand Name(s): Cubicin??, Cubicin RF??; [...] be awakened, immediately call emergency services at 749. What OTHER INFORMATION should I know? Keep [...] of all of the prescription and nonprescription (mgmm-hdo-olzkhng) medicines you are taking, as well as [...] or pharmacist about specific clinical use. The [place] [employer] represents that the information provided hereunder was formulated with a reasonable standard of care, and in conformity with professional standards in the field. The [place] [employer] makes no representations or warranties, express or implied, including, but not limited to, any implied warranty of merchantability and/or fitness for a particular purpose, with respect to such information and specifically disclaims all such warranties. Users are advised that decisions regarding drug therapy are complex medical decisions requiring the independent, informed decision of an appropriate health healthcare administration intern, and the information is provided for informational purposes only. The entire monograph for a drug should be reviewed for a thorough understanding of the drug's actions, uses and side effects. The [place] [employer] does not endorse or recommend the use of any drug.The information is not a substitute for medical care. AHFS?? Patient Medication Information?. ?? Copyright, 2023. The [place] [employer]-System Pharmacists??, [address], [address], [place], [place]. All Rights Reserved. Duplication for commercial use must be authorized by [facility]. Selected Revisions: July 28, 2019. AHFS?? Patient Medication Information?. ?? Copyright, 2024 * Rosaura Acosta - Steff Paz RN - 01/21/2025 11:56 AM EDT Images from the original note were not included. 60286 Discharge Instructions: Caring for Your Peripherally Inserted [...] damage. Last Reviewed Date: 2024 00:00:00 ?? 4242-0732 [employer]. All rights reserved. This information is not intended as a substitute for professional medical care. Always follow your healthcare professional's instructions. * Rosaura OnFORMERLY [facility] - tSeff Paz RN - 01/21/2025 11:56 AM EDT Images from the original note were not included. 78005 Central Line Infections You need a central [...] water. Or they use an alcohol-based hand deck steward containing at least 60% alcohol. ? Using [...] (warm or cold), and use alcohol-based hand deck steward with at least 60% alcohol as directed. To clean your hands well,follow the guidelines on this sheet. Visitors should wash their hands well when they arrive and when they leave. ? Make sure healthcare staff and your visitors clean their hands. They should use soap and clean, running water or an alcohol-based hand deck steward before and after checking the line. Don?t [...] good choice for cleaning your hands. The deck steward should have at least 60% alcohol. Note that some germs can't be killed by alcohol. Your healthcare team can answer any questions you have about when to use a hand deck steward, or when it?s better to wash with soap and water. Follow these steps: ? Spread the hand deck steward in the palm of one hand. (Check the package for specific guidelines.) ? Rub your hands together briskly. Clean the backs of your hands, the palms, between your fingers, and up your wrists. ? Rub until the deck steward is gone and your hands are completely [...] skin Last Reviewed Date: 2023 00:00:00 ?? 2209-8106 [employer]. All rights reserved. This information is not [...] Single Lumen PICC Patient Specific Outpatient Circumstances: [address] [place] [address] Family Support: Extended Emergency Contact Information Primary Emergency Contact: Hayley Buenrostro Address: [address] [place] [address] Mobile Relation: Significant Other Preferred language: Samoan Pretzel Twister needed? No Secondary Emergency Contact: Jenny Buenrostro Address: [address] [place] [address] of [place] Mobile Relation: Mother Contact information: Ravin Ribeiro [phone] (home) Outpatient services (including home infusion, home health, facility referral: See recent [facility] case management/social work note for finalization of services ID follow up appointment: Future Appointments Date Time Provider Department Center 02/03/2025 8:10 AM Lawrence Hayes MD [facility] 02/11/2025 1:00 PM Ary Santiago APRN [facility] [place] 03/03/2025 1:00 PM Ary Santiago APRN IDBCCLX [...] via secure chat or staff messaging in [employer]. Patient and family will need to be [...] days prior to presentation. He presented to [facility] wherehe was febrile to 101.3F. Upon [...] PA-C Division of Infectious Diseases Available on [employer] Chat History, assessment, and plan discussed with [...] labs to: ID OPAT Team Fax #: [phone] Appointments: Ary Santiago APRN on 02/11 at 1PM and 03/03 at 1PM [facility]): [address] [place] [address] (Select Option 3 for IV Antibiotic / PICC line related issues) For questions regarding OPAT prior to discharge, reach out to the OPAT team via [employer] Secure Chat (Group: OPAT Referral Team). For all questions regarding OPAT after discharge should be directed to the OPAT Team at (Select Option 3 for IV Antibiotics/PICC Issues) between 8am-5pm. After 5 pm, or during weekends/[place] holidays, please call the paging oil well fishing tool operator at to reach the on-call ID [...] at 01/18/25 1133 [2] Allergies Allergen Reactions [place] Hives * Consults - Delma Ortiz - 01/21/2025 10:00 AM EDT Pastoral Care Note: Patient was appreciative of cable spooler's visit and expressed gratitude to the care team. he said family is on their way to him. Referral From: Stage Electrician Helper Initiated Pastoral Care Provided For: Patient Patient Profile: Spiritual Assessment: Support Systems/ Spiritual Resources: Treasure, Sense of Peace, Trust, Gratitude Spiritual Needs: Emotional support, Spiritual ritual Spiritual Issues: Discharge Interventions: Pastoral Care Outcomes: Patient Outcomes: Appreciative of Stage Electrician Helper Support, Expresses acceptance, Gratitude Cosigned by Macrina Dumont at 01/21/2025 6:24 PM EDT Associated attestation - Macrina Dumont - 01/21/2025 6:24 PM EDT This is to attest cable spooler international marketing executive chart note has been reviewed and okayed. [...] to ambulate in room/hallway with family and staffing rn while remains inpatient. Patient demonstrates no further [...] Prevent or Manage Infection Flowsheets (Taken 01/20/2025 2141) Infection Management: aseptic technique maintained Fever Reduction/Comfort [...] Agree with above assessment and evaluation from resident/CAN PATCHER. * Progress Notes - Anna Elam RN - 01/20/2025 10:48 AM EDT Case Management Adult Progress Note Ravin Ribeiro 34 y.o. male CSN: [id number] Admission: 01/15/2025 9:32 PM Primary Problem: Cellulitis of leg, left Anticipated Discharge Date: TBD Pt to OR today for repeat I&D on left knee. Pt has worsening NORMAN and team wants to repeat AM labs. Final ID recs and OPAT eval are pending. Referral sent to [facility] and HH today. Pt's medicaid may be a potential barrier to HH. CM will continue to assist with discharge POC. Anna Elam RN * Op Note - Bob Nava MD - 01/20/2025 10:26 AM EDT Operative Note Date: 01/20/25 Location: [facility] Name: Ravin Ribeiro, : 1990, Diagnoses: Pre-op Diagnosis Closed fracture of left tibial plateau with routine healing, subsequent encounter Left proximal tibia (knee region) deep abscess Post-op Diagnosis Closed fracture of left tibial plateau with routine healing, subsequent encounter Left proximal tibia (knee region) deep abscess Procedure(s): Incision and drainage of left knee deep abscess Attending Surgeon(s): * Bob Nava - Primary Change Control Coordinator(s): * Emely Giron MD - Resident - [...] days prior to presentation. He presented to [facility] wherehe was febrile to 101.3F. Upon [...] PA-C Division of Infectious Diseases Available on [employer] Chat History, assessment, and plan discussed with [...] Gustavo Hightower MD [2] Allergies Allergen Reactions [place] Hives * Consults - Ricco Howard RN [...] required Ayden Canseco MD PGY-1, Orthopaedic Surgery [facility] Orthopaedic Trauma Service Pager: [phone] Orthopaedic Recon/Spine/Foot and Ankle Service Pager: [phone] Cosigned by Sachin Garza MD at 01/20/2025 [...] Course 1. Sepsis following procedure, initial encounter ([facility]) 2. Cellulitis of left lower extremity [...] admission Level of Mobility: Ambulatory- community Mobility [place]: Independent gait without device (intermittne use of [...] Mobility Bed Mobility Exam: Scooting/Bridging Level of [place]: Independent Bed Mobility Exam: Supine to Sit Level of [place]: Independent Transfers Transfer Exam: Sit to stand Level of [place]: Stand-by assist Physical/Nonphysical Assist: Verbal Cues Assistive Device: Walker, rolling Transfer Exam: Stand to Sit Level of [place]: Stand-by assist Physical/Nonphysical Assist: Verbal Cues Assistive Device: Walker, rolling Toilet Transfer Level of [place]: Stand-by assist Physical/Nonphysical Assist: Verbal Cues Type of Transfer: Ambulation, To toilet Assistive Device: Walker, rolling, Grab bar Functional Mobility Device: Rolling walker Assistance: Standby assist <Household distance, cuing for safety, pacing activity, RW management, and encouraged L LE WBAT-as permitted per chart (pt reports being used to NWB for pain management RFID STRATEGIST) Balance Postural Appearance Posture: Within Functional Limits [...] admission Level of Mobility: Ambulatory- community Mobility [place]: Independent gait without device (intermittne use of [...] Mobility Bed Mobility Exam: Scooting/Bridging Level of [place]: Independent Bed Mobility Exam: Supine to Sit Level of [place]: Independent Transfers Transfer Exam: Sit to stand Level of [place]: Stand-by assist Physical/Nonphysical Assist: Verbal Cues Assistive Device: Walker, rolling Transfer Exam: Stand to Sit Level of [place]: Stand-by assist Physical/Nonphysical Assist: Verbal Cues Assistive [...] required Red Mondragon MD Orthopaedic Surgery PGY-1 [facility] Orthopaedic Trauma Service Pager: [phone] Orthopaedic Recon/Spine/Foot and Ankle Service Pager: [phone] Personal Pager: [phone] Cosigned by Ye Navarro MD at 01/21/2025 [...] Attending Surgeon(s): * Ye Navarro - Primary Change Control Coordinator(s): * Harvey Swift MD - Resident - 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 nurse consultant and Interventions: Assessed: Wound 01/01/25 Surgical Open [...] please contact the Orthopedic Transition Nurse at [phone] Monday through Monday 8:00 am to 2:30 [...] ] Family [ ] Friend [ ] Pretzel Twister [X] Medical records HISTORY OF PRESENT ILLNESS: [...] medial pretibial incision so he presented to [facility] for evaluation. He was febrile to101.3F [...] on day of presentation. He lives in [place] with his , OCNSTANZA, and 2 young children. He smokes 1 [...] days prior to presentation. He presented to [facility] wherehe was febrile to 101.3F. Upon [...] PA-C Division of Infectious Diseases Available on [employer] Chat History, assessment, and plan discussed with ID attending, Dr. Azucena Collado The following complex inpatient infectious disease services were performed today: Complex antimicrobial therapy counseling and treatment [1] History reviewed. No pertinent past medical history. [2] Past Surgical History: Procedure Laterality Date LEG SURGERY Left [3] Allergies Allergen Reactions [place] Hives [4] Current Facility-Administered Medications Medication Dose Route Frequency Provider Last Rate Last Admin acetaminophen (Tylenol) tablet 1,000 mg 1,000 mg Oral q6h [facility] Tyrone Howard MD 1,000 mg at [...] Note Ravin Ribeiro 34 y.o. male CSN: [id number] Admission: 01/15/2025 9:32 PM Primary Problem: Cellulitis of leg, left Ambulatory Care Nurse reviewed chart and spoke with patient to complete this Initial Case Management Assessment. PCP: Renetta Pardo APRN Emergency Contact: Extended Emergency Contact Information Primary Emergency Contact: Hayley Buenrostro Address: [address] [place] [address] Mobile Relation: Significant Other Preferred language: Samoan Pretzel Twister needed? No Secondary Emergency Contact: Jenny Buenrostro Address: [address] [place] [address] Mobile Relation: Mother Insurance: Primary Visit Coverage Payer Plan Sponsor Code Group Number Group Name [facility] MEDICAID [place] [employer] [place] MEDICAID Primary Visit Coverage Subscriber Subscriber ID Subscriber Name Subscriber N Subscriber Address [id number] RAVIN RIBEIRO [id number] [place] [address] Patient information: Primary Caregiver: Self Support System: Immediate family Daily Living Activities: Functional Status: Independent Living Arrangements: Spouse/Significant other, Family Type of Residence: Private residence, Single Level [address] [place] [address] Current DME: Equipment Currently Used at Home: [...] Outpatient Dialysis Services: Living Will/Advance Directive/Power of Coal Cutter /Guardian: Have you reviewed your Advance Directive [...] Pt states he lives at home in [place] with his , MIL, and two small 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 nurse consultant and Interventions: Assessed: Wound 01/01/25 Surgical Open Surgical Incision Pretibial Left;Proximal (Active) Wound Assessment Red 01/15/25 2150 Margins Well-defined edges;Attached edges 01/15/25 2150 Janeth-Wound Assessment Red 01/15/25 2150 Closure [place] 01/15/25 2150 Wound 01/01/25 Face Left;Upper (Active) [...] please contact the Orthopedic Transition Nurse at [phone] Monday through Monday 8:00 am to 2:30 [...] cap refill <2 sec, digits [facility] Orthopedic Surgery Tertiary Exam Completed 01/16/25 No [...] exams. Mitch Giron MD PGY-3, Orthopaedic Surgery [facility] Orthopaedic Trauma Service Pager: [phone] Orthopaedic Recon/Spine/Foot and Ankle Service Pager: [phone] Cosigned by Sachin Garza MD at 01/18/2025 [...] your wound. Based upon recent changes to [place] law related to prescribing opioid pain medications, [...] please contact the Orthopedic Transition Nurse at [phone] Monday through Monday 8:00 am to 2:30 [...] examinations Tabitha Howard MD PGY-2, Orthopaedic Surgery [facility] Cosigned by Sachin Garza MD [...] fracture WRadha Howard MD PGY-2, Orthopaedic Surgery [facility] Orthopaedic Trauma Service Pager: [phone] Orthopaedic Recon/Spine/Foot and Ankle Service Pager: [phone] [1] History reviewed. No pertinent past medical [...] 25 tablet 0 [4] Allergies Allergen Reactions [place] Hives Cosigned by Sachin Garza MD at [...] 01/16/25 0657 Sepsis following procedure, initial encounter ([facility]) Cellulitis of left lower extremity Acute [...] diagnosis was Sepsis following procedure, initial encounter ([facility]). Diagnoses of Cellulitis of left lower [...] Drug use: Never [5] Allergies Allergen Reactions [place] Hives Gus Vigil APRN 01/16/25 06 Cosigned [...] 01/16/25 0733 Sepsis following procedure, initial encounter ([facility]) Cellulitis of left lower extremity Acute postoperative pain Ultimately, this patient Was admitted (Admission) The primary encounter diagnosis was Sepsis following procedure, initial encounter ([facility]). Diagnoses of Cellulitis of left lower extremity and Acute postoperative pain were also pertinent to this visit.. Patient believed to require admission for the listed diagnoses. The Orthopedic surgery service was consulted for admission and was agreeable to admit to Acute Floor (Med/Surg). ED Prescriptions None Disposition Admit - [facility] Pettit Cosigned by Jeffrey Matute MD at [...] EDT Office Visit [facility] [address] [place] [address] Ary Santiago, BALE STACKER [address] [facility] [address] [place] [phone] 02/17/2025 8:40 AM EDT Appointment [facility] Radiology [address] [place] [address] 02/17/2025 9:20 AM EDT Office Visit [facility] Orthopaedic Surgery & Sports Medicine [address] [place] [address] Lawrence Hayes MD [address] [place] [address] 03/03/2025 1:00 PM EDT Office Visit [facility] [address] [place] [address] Ary Santiago, BALE STACKER [address] [facility] [address] [place] [phone] Pending Results Name Type Priority Associated Diagnoses [...] (ABNORMAL) C-reactive protein (01/22/2025 5:04 AM EDT) [facility] CRP, Plasma 44.4(H) <=8.0 mg/L 01/22/2025 9:[address] [facility] Blood Venous blood specimen / Unknown Venipuncture / Unknown 01/22/2025 5:04 AM EDT 01/22/2025 5:[address] [facility] - 01/22/2025 9:25 AM EDT This CRP test is appropriate for assessment of infection, systemic inflammation and/or tissue injury. To assess cardiovascular disease risk order high sensitivity CRP (CRPH). us Michelle ZULUAGA LAB BLOOD ORDERABLES Final Res ult Performing Organization Address City/[facility]/ZIP Co de Phone Number [facility] [address] [place] [address] * Lavender Top (01/22/2025 5:04 AM EDT) Extra Hold for add-ons 01/22/2025 8:[address] [facility] Comment:Auto resulted. Blood Venous blood specimen / Unknown 01/22/2025 5:04 AM EDT 01/22/2025 5:30 AM EDT us Sachin Garza MD LAB BLOOD ORDERABLES Final R esult Performing Organization Address [facility]/ZIP Co de Phone Number [facility] [address] [place] [address] * (ABNORMAL) Basic metabolic panel (01/22/2025 5:04 AM EDT) Glucose, Plasma 91 74 - 99 mg/dL 01/22/2025 6:[address] [facility] BUN, Plasma 33(H) 7 - 21 mg/dL 01/22/2025 6:[address] [facility] Creatinine, Plasma 1.47(H) 0.70 - 1.20 mg/dL 01/22/2025 6:[address] [facility] BUN/Creatinine Ratio 22 01/22/2025 6:[address] [facility] Sodium, Plasma 137 136 - 145 mmol/L 01/22/2025 6:[address] [facility] Potassium, Plasma 5.3(H) 3.6 - 4.9 mmol/L 01/22/2025 6:[address] [facility] Chloride, Plasma 100 97 - 107 mmol/L 01/22/2025 6:[address] [facility] CO2, Plasma 28 22 - 29 mmol/L 01/22/2025 6:[address] [facility] Anion Gap 9 6 - 16 mmol/L 01/22/2025 6:[address] [facility] Total Calcium, Plasma 9.6 8.9 - 10.2 mg/dL 01/22/2025 6:[address] [facility] eGFRcr 63.4 mL/min/1.7 3m*2 01/22/2025 6:[address] [facility] Comment:Reported eGFRcr in m L/min/1.73m2 is based the CKD-EPI 2020 equation that does not use a race coefficient. Blood Venous blood specimen / Unknown Venipuncture / Unknown 01/22/2025 5:04 AM EDT 01/22/2025 5:31 AM EDT us Sachin Garza MD LAB BLOOD ORDERABLES Final R esult [facility] [address] [place] [address] * (ABNORMAL) CBC (01/21/2025 7:29 PM EDT) WBC Count 10.10 3.70 - 10.30 10*3/uL LAB HEMATOLOGY METHOD 01/21/2025 7:[address] [facility] RBC Count 3.82(L) 4.60 - 6.10 10*6/uL LAB HEMATOLOGY METHOD 01/21/2025 7:[address] [facility] HGB 11.5(L) 13.7 - 17.5 g/dL LAB HEMATOLOGY METHOD 01/21/2025 7:[address] [facility] HCT 35.2(L) 40.0 - 51.0 % LAB HEMATOLOGY METHOD 01/21/2025 7:[address] [facility] Platelet Count 446(H) 155 - 369 10*3/uL LAB HEMATOLOGY METHOD 01/21/2025 7:[address] [facility] MCV 92 79 - 98 fL LAB HEMATOLOGY METHOD 01/21/2025 7:[address] [facility] MCH 30.1 26.0 - 32.0 pg LAB HEMATOLOGY METHOD 01/21/2025 7:[address] [facility] MCHC 32.7 30.7 - 35.5 g/dL LAB HEMATOLOGY METHOD 01/21/2025 7:[address] [facility] RDW 13.1 11.5 - 14.5 % LAB HEMATOLOGY METHOD 01/21/2025 7:[address] [facility] MPV 9.1 8.8 - 12.5 fL LAB HEMATOLOGY METHOD 01/21/2025 7:[address] [facility] nRBC 0.0 <=0.0 per 100 WBCs LAB HEMATOLOGY METHOD 01/21/2025 7:[address] [facility] Blood Venous blood specimen / Unknown Venipuncture / Unknown 01/21/2025 7:29 PM EDT 01/21/2025 7:35 PM EDT us Sachin Garza MD LAB BLOOD ORDERABLES Final R esult [facility] [address] [place] [address] * (ABNORMAL) Basic metabolic panel (01/21/2025 7:29 PM EDT) Glucose, Plasma 122(H) 74 - 99 mg/dL 01/21/2025 8:[address] [facility] BUN, Plasma 31(H) 7 - 21 mg/dL 01/21/2025 8:[address] [facility] Creatinine, Plasma 1.64(H) 0.70 - 1.20 mg/dL 01/21/2025 8:[address] [facility] BUN/Creatinine Ratio 19 01/21/2025 8:[address] [facility] Sodium, Plasma 139 136 - 145 mmol/L 01/21/2025 8:[address] [facility] Potassium, Plasma 4.6 3.6 - 4.9 mmol/L 01/21/2025 8:[address] [facility] Chloride, Plasma 101 97 - 107 mmol/L 01/21/2025 8:[address] [facility] CO2, Plasma 26 22 - 29 mmol/L 01/21/2025 8:[address] [facility] Anion Gap 12 6 - 16 mmol/L 01/21/2025 8:[address] [facility] Total Calcium, Plasma 9.1 8.9 - 10.2 mg/dL 01/21/2025 8:[address] [facility] eGFRcr 55.6 mL/min/1.7 3m*2 01/21/2025 8:[address] [facility] Comment:Reported eGFRcr in m L/min/1.73m2 is based the CKD-EPI 2020 equation that does not use a race coefficient. Blood Venous blood specimen / Unknown Venipuncture / Unknown 01/21/2025 7:29 PM EDT 01/21/2025 7:35 PM EDT us Sachin Garza MD LAB BLOOD ORDERABLES Final R esult [facility] [address] [place] [address] * PICC SINGLE LUMEN (SMARTFORM LINK) (01/21/2025 7:01 PM EDT) Narrative Norma Miranda RN - 01/21/2025 7:01 PM EDT Norma Miranda RN 01/21/2025 7:19 PM Insert PICC line Date/Time: 01/21/2025 7:01 PM Performed by: Norma Miranda RN Authorized by: Sachin Garza MD [place] Protocol: Verbal consent obtained?: Yes Written consent [...] preference Patient position: Supine Catheter Lot #: [id number] Catheter sea captain: EnevateC Solo Catheter placed: Single lumen Catheter size: [...] at day 4 2024 7:[address] [facility] Gram Stain Result No polymorphonuclear leukocytes seen 01/25/2025 7:[address] [facility] Gram Stain Result No organisms seen 01/25/2025 7:[address] [facility] Swab Structure of left knee region / Unknown 01/20/2025 10:42 AM EDT 01/20/2025 11:25 AM EDT Comment:Pre-op diagnosis: Closed fracture of left tibial plateau with routine healing, subsequent encounter [S82.142D] us Bob Nava MD LAB MICROBIOLOGY - GENERAL O RDERABLES Final Result Performing Organization Address City/[facility]/ZIP Co de Phone Number [facility] [address] [place] [address] * Fungal Culture, Routine (01/20/2025 10:42 AM EDT) Culture No Fungal Growth at 1 Week 01/28/2025 7:[address] [facility] Swab Structure of left knee region / Unknown 01/20/2025 10:42 AM EDT 01/20/2025 11:25 AM EDT Comment:Pre-op diagnosis: Closed fracture of left tibial plateau with routine healing, subsequent encounter [S82.142D] us Bob Nava MD LAB MICROBIOLOGY - GENERAL O RDERABLES Final Result Performing Organization Address [facility] Co de Phone Number [facility] [address] [place] [address] * Anaerobic Culture (01/20/2025 10:42 AM EDT) Culture No growth at day 4 01/28/2025 7:09 AM EDT [facility] Swab Structure of left knee region / Unknown 01/20/2025 10:42 AM EDT 01/20/2025 11:25 AM EDT Comment:Pre-op diagnosis: Closed fracture of left tibial plateau with routine healing, subsequent encounter [S82.142D] us Bob Nava MD LAB MICROBIOLOGY - GENERAL O RDERABLES Final Result [facility] [address] [place] [address] * Tissue Culture and Gram Stain (01/20/2025 10:30 AM EDT) Culture No growth at day 4 2024 7:[address] [facility] Gram Stain Result No polymorphonuclear leukocytes seen 01/25/2025 7:[address] [facility] Gram Stain Result No organisms seen 01/25/2025 7:[address] [facility] Tissue Structure of left knee region / Unknown 01/20/2025 10:30 AM EDT 01/20/2025 11:23 AM EDT Comment:Pre-op diagnosis: Closed fracture of left tibial plateau with routine healing, subsequent encounter [S82.142D] us Bob Nava MD LAB MICROBIOLOGY - GENERAL O RDERABLES Final Result Performing Organization Address [facility] Co de Phone Number [facility] [address] [place] [address] * Anaerobic Culture (01/20/2025 10:30 AM EDT) Culture No growth at day 4 01/28/2025 7:[address] [facility] Tissue Structure of left knee region / Unknown 01/20/2025 10:30 AM EDT 01/20/2025 11:23 AM EDT Comment:Pre-op diagnosis: Closed fracture of left tibial plateau with routine healing, subsequent encounter [S82.142D] us Bob Nava MD LAB MICROBIOLOGY - GENERAL O RDERABLES Final Result Performing Organization Address City/[facility] Co de Phone Number [facility] [address] [place] [address] * Tissue Culture and Gram Stain (01/20/2025 10:27 AM EDT) Culture No growth at day 4 2024 7:[address] [facility] Gram Stain Result No organisms seen 01/25/2025 7:[address] [facility] Gram Stain Result No polymorphonuclear leukocytes seen 01/25/2025 7:[address] [facility] Tissue Structure of left knee region / Unknown 01/20/2025 10:27 AM EDT 01/20/2025 11:24 AM EDT Comment:Pre-op diagnosis: Closed fracture of left tibial plateau with routine healing, subsequent encounter [S82.142D] us Bob Nava MD LAB MICROBIOLOGY - GENERAL O RDERABLES Final Result Performing Organization Address [facility] Co de Phone Number [facility] [address] [place] [address] * Anaerobic Culture (01/20/2025 10:27 AM EDT) Culture No growth at day 4 01/28/2025 7:[address] [facility] Tissue Structure of left knee region / Unknown 01/20/2025 10:27 AM EDT 01/20/2025 11:24 AM EDT Comment:Pre-op diagnosis: Closed fracture of left tibial plateau with routine healing, subsequent encounter [S82.142D] us Bob Nava MD LAB MICROBIOLOGY - GENERAL O RDERABLES Final Result Performing Organization Address [facility] [place] [address] * (ABNORMAL) Creatine Kinase (CK), Total (01/20/2025 3:40 AM EDT) Creatine Kinase, Plasma 18(L) 49 - 320 U/L 01/21/2025 12:[address] [facility] Blood Venous blood specimen / Unknown Venipuncture / Unknown 01/20/2025 3:40 AM EDT 01/20/2025 3:57 AM EDT us Sachin Garza MD LAB BLOOD ORDERABLES Final R esult Performing Organization Address [facility]/ZIP Co de Phone Number [facility] [address] [place] [address] * Vancomycin, random (01/20/2025 3:40 AM EDT) Vancomycin, Random, Plasma 20.1 ug/mL 01/20/2025 4:[address] [facility] Blood Venous blood specimen / Unknown Venipuncture / Unknown 01/20/2025 3:40 AM EDT 01/20/2025 3:57 AM EDT us Sachin Garza MD LAB BLOOD ORDERABLES Final R esult Performing Organization Address [facility] Co de Phone Number [facility] [address] [place] [address] * Protime-INR (01/20/2025 3:40 AM EDT) Prothrombin Time 13.5 12.0 - 14.3 sec LAB COAGULATION METHOD 01/20/2025 4:[address] [facility] INR 1.0 0.9 - 1.1 LAB COAGULATION METHOD 01/20/2025 4:[address] [facility] Blood Venous blood specimen / Unknown Venipuncture / Unknown 01/20/2025 3:40 AM EDT 01/20/2025 3:[address] [facility] - 01/20/2025 4:17 AM EDT OPTIMAL INR RANGES FOR PATIENT ON ORAL ANTICOAGULANT THERAPY Prevention of venous thromboembolism INR 2.0 to 3.0 In patients with heart disease: Atrial fibrillation INR 2.0 to 3.0 Valvular heart disease INR 2.0 to 3.0 Tissue heart valves INR 2.0 to 3.0 Mechanical prosthetic valves INR 2.5 to 3.5 Prevention of recurrent [place] INR 2.5 to 3.5 us Sachin Garza MD LAB BLOOD ORDERABLES Final R [facility] Performing Organization Address [facility] Co de Phone Number [facility] [address] [place] [address] * (ABNORMAL) Basic metabolic panel (01/20/2025 3:40 AM EDT) Glucose, Plasma 87 74 - 99 mg/dL 01/20/2025 4:[address] [facility] BUN, Plasma 30(H) 7 - 21 mg/dL 01/20/2025 4:[address] [facility] Creatinine, Plasma 1.59(H) 0.70 - 1.20 mg/dL 01/20/2025 4:[address] [facility] BUN/Creatinine Ratio 19 01/20/2025 4:[address] [facility] Sodium, Plasma 142 136 - 145 mmol/L 01/20/2025 4:[address] [facility] Potassium, Plasma 4.7 3.6 - 4.9 mmol/L 01/20/2025 4:[address] [facility] Chloride, Plasma 104 97 - 107 mmol/L 01/20/2025 4:[address] [facility] CO2, Plasma 26 22 - 29 mmol/L 01/20/2025 4:[address] [facility] Anion Gap 12 6 - 16 mmol/L 01/20/2025 4:[address] [facility] Total Calcium, Plasma 8.9 8.9 - 10.2 mg/dL 01/20/2025 4:[address] [facility] eGFRcr 57.7 mL/min/1.7 3m*2 01/20/2025 4:[address] [facility] Comment:Reported eGFRcr in m L/min/1.73m2 is based the CKD-EPI 2020 equation that does not use a race coefficient. Blood Venous blood specimen / Unknown Venipuncture / Unknown 01/20/2025 3:40 AM EDT 01/20/2025 3:57 AM EDT us Sachin Garza MD LAB BLOOD ORDERABLES Final R esult [facility] [address] [place] [address] * (ABNORMAL) CBC W/O Differential (01/20/2025 3:40 AM EDT) WBC Count 8.11 3.70 - 10.30 10*3/uL LAB HEMATOLOGY METHOD 01/20/2025 4:[address] [facility] RBC Count 3.64(L) 4.60 - 6.10 10*6/uL LAB HEMATOLOGY METHOD 01/20/2025 4:[address] [facility] HGB 10.7(L) 13.7 - 17.5 g/dL LAB HEMATOLOGY METHOD 01/20/2025 4:[address] [facility] HCT 34.5(L) 40.0 - 51.0 % LAB HEMATOLOGY METHOD 01/20/2025 4:[address] [facility] Platelet Count 399(H) 155 - 369 10*3/uL LAB HEMATOLOGY METHOD 01/20/2025 4:[address] [facility] MCV 95 79 - 98 fL LAB HEMATOLOGY METHOD 01/20/2025 4:[address] [facility] MCH 29.4 26.0 - 32.0 pg LAB HEMATOLOGY METHOD 01/20/2025 4:[address] [facility] MCHC 31.0 30.7 - 35.5 g/dL LAB HEMATOLOGY METHOD 01/20/2025 4:[address] [facility] RDW 13.1 11.5 - 14.5 % LAB HEMATOLOGY METHOD 01/20/2025 4:[address] [facility] MPV 9.5 8.8 - 12.5 fL LAB HEMATOLOGY METHOD 01/20/2025 4:[address] [facility] nRBC 0.0 <=0.0 per 100 WBCs LAB HEMATOLOGY METHOD 01/20/2025 4:[address] [facility] Blood Venous blood specimen / Unknown Venipuncture / Unknown 01/20/2025 3:40 AM EDT 01/20/2025 3:56 AM EDT us Sachin Garza MD LAB BLOOD ORDERABLES Final R esult [facility] [address] [place] [address] * Vancomycin, random (01/19/2025 11:48 AM EDT) Vancomycin, Random, Plasma 22.9 ug/mL 01/19/2025 1:[address] [facility] Blood Venous blood specimen / Unknown Venipuncture / Unknown 01/19/2025 11:48 AM EDT 01/19/2025 11:50 AM EDT us Sachin Garza MD LAB BLOOD ORDERABLES Final R esult [facility] [address] [place] [address] * (ABNORMAL) Basic Metabolic Panel, Plasma (01/18/2025 11:54 PM EDT) Glucose, Plasma 134(H) 74 - 99 mg/dL 01/19/2025 12:[address] [facility] BUN, Plasma 24(H) 7 - 21 mg/dL 01/19/2025 12:[address] [facility] Creatinine, Plasma 1.34(H) 0.70 - 1.20 mg/dL 01/19/2025 12:[address] [facility] BUN/Creatinine Ratio 18 01/19/2025 12:[address] [facility] Sodium, Plasma 137 136 - 145 mmol/L 01/19/2025 12:[address] [facility] Potassium, Plasma 4.7 3.6 - 4.9 mmol/L 01/19/2025 12:[address] [facility] Chloride, Plasma 100 97 - 107 mmol/L 01/19/2025 12:[address] [facility] CO2, Plasma 24 22 - 29 mmol/L 01/19/2025 12:[address] [facility] Anion Gap 13 6 - 16 mmol/L 01/19/2025 12:[address] [facility] Total Calcium, Plasma 9.3 8.9 - 10.2 mg/dL 01/19/2025 12:[address] [facility] eGFRcr 70.8 mL/min/1.7 3m*2 01/19/2025 12:[address] [facility] Comment:Reported eGFRcr in m L/min/1.73m2 is based the CKD-EPI 2020 equation that does not use a race coefficient. Blood Venous blood specimen / Unknown Venipuncture / Unknown 01/18/2025 11:54 PM EDT 01/19/2025 12:16 AM EDT us Sachin Garza MD LAB BLOOD ORDERABLES Final R esult [facility] [address] [place] [address] * (ABNORMAL) CBC W/O Differential (01/18/2025 11:54 PM EDT) WBC Count 11.85(H) 3.70 - 10.30 10*3/uL LAB HEMATOLOGY METHOD 01/19/2025 12:[address] [facility] RBC Count 3.76(L) 4.60 - 6.10 10*6/uL LAB HEMATOLOGY METHOD 01/19/2025 12:[address] [facility] HGB 11.3(L) 13.7 - 17.5 g/dL LAB HEMATOLOGY METHOD 01/19/2025 12:[address] [facility] HCT 34.2(L) 40.0 - 51.0 % LAB HEMATOLOGY METHOD 01/19/2025 12:[address] [facility] Platelet Count 394(H) 155 - 369 10*3/uL LAB HEMATOLOGY METHOD 01/19/2025 12:[address] [facility] MCV 91 79 - 98 fL LAB HEMATOLOGY METHOD 01/19/2025 12:[address] [facility] MCH 30.1 26.0 - 32.0 pg LAB HEMATOLOGY METHOD 01/19/2025 12:[address] [facility] MCHC 33.0 30.7 - 35.5 g/dL LAB HEMATOLOGY METHOD 01/19/2025 12:[address] [facility] RDW 12.9 11.5 - 14.5 % LAB HEMATOLOGY METHOD 01/19/2025 12:[address] [facility] MPV 9.5 8.8 - 12.5 fL LAB HEMATOLOGY METHOD 01/19/2025 12:[address] [facility] nRBC 0.0 <=0.0 per 100 WBCs LAB HEMATOLOGY METHOD 01/19/2025 12:[address] [facility] Blood Venous blood specimen / Unknown Venipuncture / Unknown 01/18/2025 11:54 PM EDT 01/19/2025 12:13 AM EDT us Sachin Garza MD LAB BLOOD ORDERABLES Final R esult [facility] [address] [place] [address] * Fungal Culture, Sterile Body Fluid (NOT CSF) and SYEDA (01/18/2025 3:28 PM EDT) Culture No Fungal Growth at 3 Weeks 02/10/2025 8:[address] [facility] SYEDA No fungal elements seen 02/10/2025 8:[address] [facility] Joint Fluid Topography unknown / Unknown Non-blood Collection / Unknown 01/18/2025 3:28 PM EDT 01/18/2025 3:28 PM EDT Sachin Garza MD LAB MICROBIOLOGY - GENERAL O RDERABLES Final Result Performing Organization Address City/[facility]/ZIP Co de Phone Number [facility] [address] [place] [address] * Anaerobic Culture (01/18/2025 3:28 PM EDT) Culture No anaerobes isolated 01/23/2025 7:[address] [facility] Joint Fluid Topography unknown / Unknown Non-blood Collection / Unknown 01/18/2025 3:28 PM EDT 01/18/2025 3:28 PM EDT Sachin Garza MD LAB MICROBIOLOGY - GENERAL O RDERABLES Final Result Performing Organization Address City/[facility]/ZIP Co de Phone Number [facility] [address] [place] [address] * (ABNORMAL) Body Fluid Culture and Gram Stain (01/18/2025 3:28 PM EDT) Culture Heavy Growth 01/20/2025 8:[address] [facility] Culture Methicillin-Resista nt Staphylococcus aureus(AA) 01/20/2025 8:[address] [facility] Comment: For susceptibility results refer to: - [id number] The organism value for this result has been updated. These results have been appended to the previously preliminary verified report. Edited result: Previously reported as Staphylococcus aureus on 01/19/2025 at 0933 EDT. Staphylococcus aureus has been updated to reportable. Gram Stain Result Numerous Polymorphonuclear leukocytes 01/20/2025 8:[address] [facility] Gram Stain Result No organisms seen 01/20/2025 8:[address] [facility] Joint Fluid Topography unknown / Unknown Non-blood Collection / Unknown 01/18/2025 3:28 PM EDT 01/18/2025 3:28 PM EDT us Sachin Garza MD LAB MICROBIOLOGY - GENERAL O RDERABLES Final Result Performing Organization Address City/[facility] Co de Phone Number [facility] [address] [place] [address] * Body fluid, cytospin, pathologist interpretation (01/18/2025 3:01 PM EDT) Specimen Type Joint Fluid LAB HEMATOLOGY METHOD 01/20/2025 4:[address] [facility] Specimen Source, Body Fluid Knee, Left LAB HEMATOLOGY METHOD 01/20/2025 4:[address] [facility] Clinical Diagnosis, Body Fluid Left lower extremity cellulitis LAB HEMATOLOGY METHOD 01/20/2025 4:[address] [facility] Interpretation , Body Fluid Bloody specimen Acute and chronic inflammatory cells Correlation with microbiology studies recommended A resident was involved in the service. I attest I examined the relevant preparations for the specimens and confirmed the diagnosis or interpretation. 01/20/2025 4:[address] [facility] Pathologist Signature, Body Fluid 01/20/2025 4:[address] [facility] Comment:Reviewed by: Stephanie conti MD LAB CP ASR DISCLAIMER Yes 01/20/2025 4:[address] [facility] Joint Fluid Structure of left knee region / Unknown 01/18/2025 3:01 PM EDT 01/18/2025 3:28 PM EDT us Sachin Garza MD LAB BODY FLUIDS AND STOOLS O RDERABLES Final Result Performing Organization Address [facility]/ZIP Co de Phone Number [facility] [address] [place] [address] * Joint Fluid Crystals (01/18/2025 3:01 PM EDT) Crystals, Joint Fluid No Crystals Seen No Crystals Present 01/18/2025 5:[address] [facility] Joint Fluid Structure of left knee region / Unknown 01/18/2025 3:01 PM EDT 01/18/2025 3:28 PM EDT us Sachin Garza MD LAB BODY FLUIDS AND STOOLS O RDERABLES Final Result [facility] [address] [place] [address] * (ABNORMAL) Body Fluid Cell Count w/ Diff (01/18/2025 3:01 PM EDT) Color, Body fluid Red LAB HEMATOLOGY METHOD 01/18/2025 11:[address] [facility] Appearance, Body fluid Cloudy(A) LAB HEMATOLOGY METHOD 01/18/2025 11:[address] [facility] Volume, Body fluid 3.5 cc LAB HEMATOLOGY METHOD 01/18/2025 11:[address] [facility] Fluid Container Specimen received in EDTA tube LAB HEMATOLOGY METHOD 01/18/2025 11:[address] [facility] Red Blood Cell Count, Body fluid 299,000 uL LAB HEMATOLOGY METHOD 01/18/2025 11:[address] [facility] Total Nucleated Cell Count, Body fluid 873 uL LAB HEMATOLOGY METHOD 01/18/2025 11:[address] [facility] Neutrophils %, Body fluid 17 % LAB HEMATOLOGY METHOD 01/18/2025 11:[address] [facility] Lymphocytes %, Body fluid 55 % LAB HEMATOLOGY METHOD 01/18/2025 11:[address] [facility] Monocytes/Macro phages %, Body fluid 27 % LAB HEMATOLOGY METHOD 01/18/2025 11:[address] [facility] Eosinophils %, Body fluid 1 % LAB HEMATOLOGY METHOD 01/18/2025 11:[address] [facility] Lining/Mesothel ial Cells %, Body fluid 0 % LAB HEMATOLOGY METHOD 01/18/2025 11:[address] [facility] Neutrophils Absolute (PMN), Body fluid 148 uL LAB HEMATOLOGY METHOD 01/18/2025 11:[address] [facility] Lymphocytes Absolute, Body fluid 480 uL LAB HEMATOLOGY METHOD 01/18/2025 11:[address] [facility] Monocytes/Macro phages Absolute, Body fluid 236 uL LAB HEMATOLOGY METHOD 01/18/2025 11:[address] [facility] Eosinophils Absolute, Body fluid 9 uL LAB HEMATOLOGY METHOD 01/18/2025 11:[address] [facility] Basophils Absolute, Body fluid 0 uL LAB HEMATOLOGY METHOD 01/18/2025 11:[address] [facility] Lining/Mesothel ial Cells Absolute, Body fluid 0 uL LAB HEMATOLOGY METHOD 01/18/2025 11:[address] [facility] Comment, Body fluid None LAB HEMATOLOGY METHOD 01/18/2025 11:[address] [facility] Comment:This is an appended report. These results have been appended to a previously preliminary verified report. Basophils %, Body fluid 0 % LAB HEMATOLOGY METHOD 01/18/2025 11:[address] [facility] Joint Fluid Structure of left knee region / Unknown 01/18/2025 3:01 PM EDT 01/18/2025 3:28 PM EDT Sachin Garza MD LAB BODY FLUIDS AND STOOLS ORDERABLES NO SPECIMEN TYPE/SOURCE Final Result [facility] [address] [place] [address] * Body Fluid Culture and Gram Stain (01/18/2025 12:17 PM EDT) Culture No growth at day 4 2024 11:[address] [facility] Gram Stain Result No polymorphonuclear leukocytes seen 01/21/2025 11:[address] [facility] Gram Stain Result No organisms seen 01/21/2025 11:[address] [facility] Joint Fluid Synovial fluid specimen / Unknown Non-blood Collection / Unknown 01/18/2025 12:17 PM EDT 01/18/2025 3:24 PM EDT Comment:Pre-op diagnosis: Cellulitis of left lower extremity [L03.116] Dwaine Das DO LAB MICROBIOLOGY - GENERAL ORDERABLES Final Result [facility] [address] [place] [address] * Joint Infection Panel by PCR (01/18/2025 12:17 PM EDT) Anaerococcus prevotii/vaginalis PCR Result Not Detected Not Detected 01/18/2025 5:[address] [facility] Clostridium perfringens PCR Result Not Detected Not Detected 01/18/2025 5:[address] [facility] Cutibacterium avidum/granulosum PCR Result Not Detected Not Detected 01/18/2025 5:[address] [facility] Enterococcus faecalis PCR Result Not Detected Not Detected 01/18/2025 5:[address] [facility] Enterococcus faecium PCR Result Not Detected Not Detected 01/18/2025 5:[address] [facility] Finegoldia magna PCR Result Not Detected Not Detected 01/18/2025 5:[address] [facility] Parvimonas micra PCR Result Not Detected Not Detected 01/18/2025 5:[address] [facility] Peptoniphilus PCR Result Not Detected Not Detected 01/18/2025 5:[address] [facility] Peptostreptococcus anaerobius PCR Result Not Detected Not Detected 01/18/2025 5:[address] [facility] Staphylococcus aureus PCR Result Not Detected Not Detected 01/18/2025 5:[address] [facility] Staphylococcus lugdunensis PCR Result Not Detected Not Detected 01/18/2025 5:[address] [facility] Streptococcus spp PCR Result Not Detected Not Detected 01/18/2025 5:[address] [facility] Streptococcus agalactiae PCR Result Not Detected Not Detected 01/18/2025 5:[address] [facility] Streptococcus pneumoniae PCR Result Not Detected Not Detected 01/18/2025 5:[address] [facility] Streptococcus pyogenes PCR Result Not Detected Not Detected 01/18/2025 5:28 PM EDT [facility] Bacteroides fragilis PCR Result Not Detected Not Detected 01/18/2025 5:28 PM EDT [facility] Citrobacter PCR Result Not Detected Not Detected 01/18/2025 5:[address] [facility] Enterobacter cloacae complex PCR Result Not Detected Not Detected 01/18/2025 5:[address] [facility] Escherichia coli PCR Result Not Detected Not Detected 01/18/2025 5:[address] [facility] Haemophilus influenzae PCR Result Not Detected Not Detected 01/18/2025 5:[address] [facility] Kingella kingae PCR Result Not Detected Not Detected 01/18/2025 5:[address] [facility] Klebsiella aerogenes PCR Result Not Detected Not Detected 01/18/2025 5:[address] [facility] Klebsiella pneumoniae group PCR Result Not Detected Not Detected 01/18/2025 5:[address] [facility] Morganella morganii PCR Result Not Detected Not Detected 01/18/2025 5:[address] [facility] Neisseria gonorrhoeae PCR Result Not Detected Not Detected 01/18/2025 5:[address] [facility] Proteus spp PCR Result Not Detected Not Detected 01/18/2025 5:[address] [facility] Pseudomonas aeruginosa PCR Result Not Detected Not Detected 01/18/2025 5:[address] [facility] Salmonella spp PCR Result Not Detected Not Detected 01/18/2025 5:[address] [facility] Serratia marcescens PCR Result Not Detected Not Detected 01/18/2025 5:[address] [facility] Nelda PCR Result Not Detected Not Detected 01/18/2025 5:[address] [facility] Nelda albicans PCR Result Not Detected Not Detected 01/18/2025 5:[address] [facility] CTXM PCR Result Not Detected Not Detected 01/18/2025 5:[address] [facility] IMP PCR Result Not Detected Not Detected 01/18/2025 5:[address] [facility] KPC PCR Result Not Detected Not Detected 01/18/2025 5:[address] [facility] mecA/C and MREJ (MRSA) PCR Result Not Detected Not Detected 01/18/2025 5:[address] [facility] NDM PCR Result Not Detected Not Detected 01/18/2025 5:[address] [facility] OXA-48-like PCR Result Not Detected Not Detected 01/18/2025 5:[address] [facility] Jarret/B PCR Result Not Detected Not Detected 01/18/2025 5:[address] [facility] VIM PCR Result Not Detected Not Detected 01/18/2025 5:[address] [facility] Joint Fluid Synovial fluid specimen / Unknown Non-blood Collection / Unknown 01/18/2025 12:17 PM EDT 01/18/2025 3:[address] [facility] - 01/18/2025 5:28 PM EDT [...] obtain isolates for antimicrobial susceptibility testing and [employer] Joint Infection Panel results should be used in conjunction with culture results for the determination of susceptibility or resistance. us Sachin Garza MD LAB MICROBIOLOGY - GENERAL O RDERABLES Final Result [facility] [address] [place] [address] * (ABNORMAL) Tissue Culture and Gram Stain (01/18/2025 10:00 AM EDT) Culture Heavy Growth 01/20/2025 8:[address] [facility] Culture Methicillin-Resista nt Staphylococcus aureus(AA) JOVANI 01/20/2025 8:[address] [facility] Comment: The organism value for this result has been updated. These results have been appended to the previously preliminary verified report. Edited result: Previously reported as Staphylococcus aureus on 01/19/2025 at 0914 EDT. Staphylococcus aureus has been updated to reportable. Gram Stain Result Numerous Polymorphonuclear leukocytes(A) 01/20/2025 8:[address] [facility] Gram Stain Result Rare Gram positive cocci in clusters(A) 01/20/2025 8:[address] [facility] Tissue Topography unknown / Unknown [...] aureus Vancomycin JOVANI 1 ug/ml: Sus[facility] - GENERAL ORDERABLES Final Result Performing Organization Address City/[facility]/ZIP Co de Phone Number [facility] [address] [place] [address] * Anaerobic Culture (01/18/2025 10:00 AM EDT) Culture No anaerobes isolated 01/23/2025 7:[address] [facility] Tissue Topography unknown / Unknown 01/18/2025 10:00 AM EDT 01/18/2025 3:26 PM EDT Comment:Pre-op diagnosis: Cellulitis of left lower extremity [L03.116] [facility] MI[facility]OLOGY - GENERAL ORDERABLES Final Result Performing Organization Address City/[facility] Co de Phone Number [facility] [address] [place] [address] * Body fluid, cytospin, pathologist interpretation (01/18/2025 9:57 AM EDT) Specimen Type Cyst Fluid LAB HEMATOLOGY METHOD 01/20/2025 4:[address] [facility] Specimen Source, Body Fluid Other (specify site) LAB HEMATOLOGY METHOD 01/20/2025 4:[address] [facility] Clinical Diagnosis, Body Fluid Left lower extremity cyst fluid LAB HEMATOLOGY METHOD 01/20/2025 4:[address] [facility] Interpretation , Body Fluid No evidence of malignancy Bloody specimen Acute inflammatory cells Correlation with microbiology studies recommended A resident was involved in the service. I attest I examined the relevant preparations for the specimens and confirmed the diagnosis or interpretation. 01/20/2025 4:[address] [facility] Pathologist Signature, Body Fluid 01/20/2025 4:[address] [facility] Comment:Reviewed by: Stephanie conti MD LAB CP ASR DISCLAIMER Yes 01/20/2025 4:[address] [facility] Cyst Fluid Topography unknown / Unknown 01/18/2025 9:57 AM EDT 01/18/2025 3:19 PM EDT Dwaine Das DO LAB BODY FLUIDS AND STOOLS ORDERABLES Final Result [facility] [address] [place] [address] * (ABNORMAL) Body Fluid Cell Count w/ Diff (01/18/2025 9:57 AM EDT) Color, Body fluid Red LAB HEMATOLOGY METHOD 01/18/2025 7:[address] [facility] Appearance, Body fluid Cloudy(A) LAB HEMATOLOGY METHOD 01/18/2025 7:[address] [facility] Volume, Body fluid 10.0 cc LAB HEMATOLOGY METHOD 01/18/2025 7:[address] [facility] Fluid Container Specimen received in miscellaneous container LAB HEMATOLOGY METHOD 01/18/2025 7:[address] [facility] Red Blood Cell Count, Body fluid 240,000 uL LAB HEMATOLOGY METHOD 01/18/2025 7:[address] [facility] Comment:Clot present, may af fect results. Test performed by manual method. Total Nucleated Cell Count, Body fluid 83,500 uL LAB HEMATOLOGY METHOD 01/18/2025 7:[address] [facility] Comment:Clot present, may af fect results. Test performed by manual method. Neutrophils %, Body fluid 98 % LAB HEMATOLOGY METHOD 01/18/2025 7:[address] [facility] Lymphocytes %, Body fluid 2 % LAB HEMATOLOGY METHOD 01/18/2025 7:[address] [facility] Monocytes/Macr ophages %, Body fluid 0 % LAB HEMATOLOGY METHOD 01/18/2025 7:[address] [facility] Eosinophils %, Body fluid 0 % LAB HEMATOLOGY METHOD 01/18/2025 7:[address] [facility] Lining/Mesothe lial Cells %, Body fluid 0 % LAB HEMATOLOGY METHOD 01/18/2025 7:[address] [facility] Neutrophils Absolute (PMN), Body fluid 81,830 uL LAB HEMATOLOGY METHOD 01/18/2025 7:[address] [facility] Lymphocytes Absolute, Body fluid 1,670 uL LAB HEMATOLOGY METHOD 01/18/2025 7:[address] [facility] Monocytes/Macr ophages Absolute, Body fluid 0 uL LAB HEMATOLOGY METHOD 01/18/2025 7:[address] [facility] Eosinophils Absolute, Body fluid 0 uL LAB HEMATOLOGY METHOD 01/18/2025 7:[address] [facility] Basophils Absolute, Body fluid 0 uL LAB HEMATOLOGY METHOD 01/18/2025 7:[address] [facility] Lining/Mesothe lial Cells Absolute, Body fluid 0 uL LAB HEMATOLOGY METHOD 01/18/2025 7:[address] [facility] Comment, Body fluid Bacteria seen. LAB HEMATOLOGY METHOD 01/18/2025 7:[address] [facility] Basophils %, Body fluid 0 % LAB HEMATOLOGY METHOD 01/18/2025 7:[address] [facility] Cyst Fluid Topography unknown / Unknown 01/18/2025 9:57 AM EDT 01/18/2025 3:19 PM EDT Comment:Pre-op diagnosis: Cellulitis of left lower extremity [L03.116] us Dwaine Das DO LAB BODY FLUIDS AND STOOLS ORDERABLES NO SPECIMEN TYPE/SOURCE Final Result [facility] [address] [place] [address] * Fungal Culture, Sterile Body Fluid (NOT CSF) and SYEDA (01/18/2025 9:57 AM EDT) Culture No Fungal Growth at 3 Weeks 02/10/2025 8:[address] [facility] SYEDA No fungal elements seen 02/10/2025 8:[address] [facility] Cyst Fluid Topography unknown / Unknown 01/18/2025 9:57 AM EDT 01/18/2025 3:26 PM EDT Comment:Pre-op diagnosis: Cellulitis of left lower extremity [L03.116] Dwaine Iterableadele LAB MICROBIOLOGY - GENERAL ORDERABLES Final Result [facility] [address] [place] [address] * (ABNORMAL) Body Fluid Culture and Gram Stain (01/18/2025 9:57 AM EDT) Culture Heavy Growth 01/20/2025 8:[address] [facility] Culture Methicillin-Resista nt Staphylococcus aureus(AA) 01/20/2025 8:[address] [facility] Comment: For susceptibility results refer to: - [id number] The organism value for this result has been updated. These results have been appended to the previously preliminary verified report. Edited result: Previously reported as Staphylococcus aureus on 01/19/2025 at 0916 EDT. Staphylococcus aureus has been updated to reportable. Gram Stain Result Numerous Polymorphonuclear leukocytes(A) 01/20/2025 8:[address] [facility] Gram Stain Result Moderate Gram positive cocci in clusters(A) 01/20/2025 8:[address] [facility] Cyst Fluid Topography unknown / Unknown 01/18/2025 9:57 AM EDT 01/18/2025 3:26 PM EDT Comment:Pre-op diagnosis: Cellulitis of left lower extremity [L03.116] Dwaine Crow LAB MICROBIOLOGY - GENERAL ORDERABLES Final Result Performing Organization Address City/[facility]/ZIP Co de Phone Number [facility] [address] [place] [address] * Anaerobic Culture (01/18/2025 9:57 AM EDT) Culture No anaerobes isolated 01/23/2025 7:[address] [facility] Cyst Fluid Topography unknown / Unknown 01/18/2025 9:57 AM EDT 01/18/2025 3:26 PM EDT Comment:Pre-op diagnosis: Cellulitis of left lower extremity [L03.116] Dwaine Iterableadele LAB MICROBIOLOGY - GENERAL ORDERABLES Final Result [facility] [address] [place] [address] * Methicillin Resistant Staphylococcus aureus (MRSA) by PCR (01/18/2025 7:43 AM EDT) Methicillin Resistant Staphylococcus aureus (MRSA) by PCR Not Detected Not Detected 01/18/2025 9:[address] [facility] Swab Both anterior nares / Unknown Non-blood Collection / Unknown 01/18/2025 7:43 AM EDT 01/18/2025 8:[address] [facility] - 01/18/2025 9:36 AM EDT [...] MICROBIOLOGY - GENERAL O RDERABLES Final Result [facility] [address] [place] [address] * (ABNORMAL) Basic metabolic panel (01/18/2025 12:18 AM EDT) Glucose, Plasma 105(H) 74 - 99 mg/dL 01/18/2025 1:[address] [facility] BUN, Plasma 14 7 - 21 mg/dL 01/18/2025 1:[address] [facility] Creatinine, Plasma 0.80 0.70 - 1.20 mg/dL 01/18/2025 1:[address] [facility] BUN/Creatinine Ratio 18 01/18/2025 1:[address] [facility] Sodium, Plasma 137 136 - 145 mmol/L 01/18/2025 1:[address] [facility] Potassium, Plasma 4.3 3.6 - 4.9 mmol/L 01/18/2025 1:[address] [facility] Chloride, Plasma 100 97 - 107 mmol/L 01/18/2025 1:[address] [facility] CO2, Plasma 26 22 - 29 mmol/L 01/18/2025 1:[address] [facility] Anion Gap 11 6 - 16 mmol/L 01/18/2025 1:[address] [facility] Total Calcium, Plasma 9.0 8.9 - 10.2 mg/dL 01/18/2025 1:[address] [facility] eGFRcr 118.4 mL/min/1.7 3m*2 01/18/2025 1:[address] [facility] Comment:Reported eGFRcr in m L/min/1.73m2 is based the CKD-EPI 2020 equation that does not use a race coefficient. Blood Venous blood specimen / Unknown Venipuncture / Unknown 01/18/2025 12:18 AM EDT 01/18/2025 12:27 AM EDT us Sachin Garza MD LAB BLOOD ORDERABLES Final R esult [facility] [address] [place] [address] * (ABNORMAL) CBC W/O Differential (01/18/2025 12:18 AM EDT) WBC Count 8.77 3.70 - 10.30 10*3/uL LAB HEMATOLOGY METHOD 01/18/2025 12:[address] [facility] RBC Count 3.94(L) 4.60 - 6.10 10*6/uL LAB HEMATOLOGY METHOD 01/18/2025 12:[address] [facility] HGB 11.7(L) 13.7 - 17.5 g/dL LAB HEMATOLOGY METHOD 01/18/2025 12:[address] [facility] HCT 37.1(L) 40.0 - 51.0 % LAB HEMATOLOGY METHOD 01/18/2025 12:[address] [facility] Platelet Count 347 155 - 369 10*3/uL LAB HEMATOLOGY METHOD 01/18/2025 12:[address] [facility] MCV 94 79 - 98 fL LAB HEMATOLOGY METHOD 01/18/2025 12:[address] [facility] MCH 29.7 26.0 - 32.0 pg LAB HEMATOLOGY METHOD 01/18/2025 12:[address] [facility] MCHC 31.5 30.7 - 35.5 g/dL LAB HEMATOLOGY METHOD 01/18/2025 12:[address] [facility] RDW 13.1 11.5 - 14.5 % LAB HEMATOLOGY METHOD 01/18/2025 12:[address] [facility] MPV 9.5 8.8 - 12.5 fL LAB HEMATOLOGY METHOD 01/18/2025 12:[address] [facility] nRBC 0.0 <=0.0 per 100 WBCs LAB HEMATOLOGY METHOD 01/18/2025 12:[address] [facility] Blood Venous blood specimen / Unknown Venipuncture / Unknown 01/18/2025 12:18 AM EDT 01/18/2025 12:29 AM EDT us Sachin Garza MD LAB BLOOD ORDERABLES Final R esult Performing Organization Address [facility] Co de Phone Number [facility] [address] [place] [address] * Vancomycin, Peak, Plasma Please draw ~2 hours after 1000 dose of vancomycin on Monday finishes infusing. Consider obtaining level via peripheral stick. If peripheral stick is not feasible, please ensure that line is flushed well prior to drawing l... (01/17/2025 2:03 PM EDT) [facility] Vancomycin, Peak, Plasma 22.0 20.0 - 40.0 ug/mL 01/17/2025 3:[address] [facility] Blood Venous blood specimen / Unknown Venipuncture / Unknown 01/17/2025 2:03 PM EDT 01/17/2025 2:[address] [facility] - 01/17/2025 3:01 PM EDT Therapeutic Peak level: 20-40ug/mL Supra-therapeutic Peak level: >40 ug/mL us Sachin Garza MD LAB BLOOD ORDERABLES Final R esult Performing Organization Address [facility] Co de Phone Number [facility] [address] [place] [address] * Vancomycin, Trough, Plasma Please draw ~30 minutes prior to dose due at 1000 on Monday. Please do NOT hold dose awaiting level to return. Consider obtaining level via peripheral stick. If peripheral stick is not feasible, please ensure that line ... (01/17/2025 9:53 AM EDT) Vancomycin, Trough, Plasma 12.5 10.0 - 20.0 ug/mL 01/17/2025 10:[address] [facility] Blood Venous blood specimen / Unknown Venipuncture / Unknown 01/17/2025 9:53 AM EDT 01/17/2025 9:[address] [facility] - 01/17/2025 10:24 AM EDT Therapeutic Trough level: 10-20ug/mL Supra-therapeutic Trough level: >20 ug/mL us Sachin Garza MD LAB BLOOD ORDERABLES Final R esult [facility] [address] [place] [address] * (ABNORMAL) Basic metabolic panel (01/17/2025 4:05 AM EDT) Glucose, Plasma 117(H) 74 - 99 mg/dL 01/17/2025 5:[address] [facility] BUN, Plasma 13 7 - 21 mg/dL 01/17/2025 5:[address] [facility] Creatinine, Plasma 0.75 0.70 - 1.20 mg/dL 01/17/2025 5:[address] [facility] BUN/Creatinine Ratio 17 01/17/2025 5:[address] [facility] Sodium, Plasma 135(L) 136 - 145 mmol/L 01/17/2025 5:[address] [facility] Potassium, Plasma 4.5 3.6 - 4.9 mmol/L 01/17/2025 5:[address] [facility] Chloride, Plasma 100 97 - 107 mmol/L 01/17/2025 5:[address] [facility] CO2, Plasma 25 22 - 29 mmol/L 01/17/2025 5:[address] [facility] Anion Gap 10 6 - 16 mmol/L 01/17/2025 5:[address] [facility] Total Calcium, Plasma 9.1 8.9 - 10.2 mg/dL 01/17/2025 5:[address] [facility] eGFRcr 120.7 mL/min/1.7 3m*2 01/17/2025 5:[address] [facility] Comment:Reported eGFRcr in m L/min/1.73m2 is based the CKD-EPI 2020 equation that does not use a race coefficient. Blood Venous blood specimen / Unknown Venipuncture / Unknown 01/17/2025 4:05 AM EDT 01/17/2025 4:35 AM EDT us Sachin Garza MD LAB BLOOD ORDERABLES Final R esult [facility] [address] [place] [address] * [place] Extremity Limited MSK or Soft [...] - 99 mg/dL 01/16/2025 5:[address] [facility] BUN, Plasma 12 7 - 21 mg/dL 01/16/2025 5:[address] [facility] Creatinine, Plasma 0.66(L) 0.70 - 1.20 mg/dL 01/16/2025 5:[address] [facility] BUN/Creatinine Ratio 18 01/16/2025 5:[address] [facility] Sodium, Plasma 136 136 - 145 mmol/L 01/16/2025 5:[address] [facility] Potassium, Plasma 4.5 3.6 - 4.9 mmol/L 01/16/2025 5:[address] [facility] Chloride, Plasma 100 97 - 107 mmol/L 01/16/2025 5:[address] [facility] CO2, Plasma 26 22 - 29 mmol/L 01/16/2025 5:[address] [facility] Anion Gap 10 6 - 16 mmol/L 01/16/2025 5:[address] [facility] Total Calcium, Plasma 8.8(L) 8.9 - 10.2 mg/dL 01/16/2025 5:[address] [facility] eGFRcr 125.4 mL/min/1.7 3m*2 01/16/2025 5:[address] [facility] Comment:Reported eGFRcr in m L/min/1.73m2 is based the CKD-EPI 2020 equation that does not use a race coefficient. Blood Venous blood specimen / Unknown Venipuncture / Unknown 01/16/2025 4:31 AM EDT 01/16/2025 4:46 AM EDT Jeffrey Matute MD LAB BLOOD ORDERABLES Final Re sult [facility] [address] [place] [address] * Prothrombin Time/INR (01/16/2025 4:31 AM EDT) Prothrombin Time 12.9 12.0 - 14.3 sec 01/16/2025 4:[address] [facility] INR 1.0 0.9 - 1.1 01/16/2025 4:[address] [facility] Blood Venous blood specimen / Unknown Venipuncture / Unknown 01/16/2025 4:31 AM EDT 01/16/2025 4:[address] [facility] - 01/16/2025 4:46 AM EDT OPTIMAL INR RANGES FOR PATIENT ON ORAL ANTICOAGULANT THERAPY Prevention of venous thromboembolism INR 2.0 to 3.0 In patients with heart disease: Atrial fibrillation INR 2.0 to 3.0 Valvular heart disease INR 2.0 to 3.0 Tissue heart valves INR 2.0 to 3.0 Mechanical prosthetic valves INR 2.5 to 3.5 Prevention of recurrent [place] INR 2.5 to 3.5 Jeffrey Matute MD LAB BLOOD ORDERABLES Final Re sult [facility] [address] [place] [address] * (ABNORMAL) CBC W/O Differential (01/16/2025 4:31 AM EDT) [facility] Signature WBC Count 17.78(H) 3.70 - 10.30 10*3/uL LAB HEMATOLOGY METHOD 01/16/2025 4:[address] [facility] RBC Count 4.14(L) 4.60 - 6.10 10*6/uL LAB HEMATOLOGY METHOD 01/16/2025 4:[address] [facility] HGB 12.4(L) 13.7 - 17.5 g/dL LAB HEMATOLOGY METHOD 01/16/2025 4:[address] [facility] HCT 37.6(L) 40.0 - 51.0 % LAB HEMATOLOGY METHOD 01/16/2025 4:[address] [facility] Platelet Count 359 155 - 369 10*3/uL LAB HEMATOLOGY METHOD 01/16/2025 4:[address] [facility] MCV 91 79 - 98 fL LAB HEMATOLOGY METHOD 01/16/2025 4:[address] [facility] MCH 30.0 26.0 - 32.0 pg LAB HEMATOLOGY METHOD 01/16/2025 4:[address] [facility] MCHC 33.0 30.7 - 35.5 g/dL LAB HEMATOLOGY METHOD 01/16/2025 4:[address] [facility] RDW 13.2 11.5 - 14.5 % LAB HEMATOLOGY METHOD 01/16/2025 4:[address] [facility] MPV 9.3 8.8 - 12.5 fL LAB HEMATOLOGY METHOD 01/16/2025 4:[address] [facility] nRBC 0.0 <=0.0 per 100 WBCs LAB HEMATOLOGY METHOD 01/16/2025 4:[address] [facility] Blood Venous blood specimen / Unknown Venipuncture / Unknown 01/16/2025 4:31 AM EDT 01/16/2025 4:33 AM EDT us Jeffrey Matute MD LAB BLOOD ORDERABLES Final Re sult [facility] [address] [place] [address] * CT Tibia Fibula Left w IV [...] at day 5 01/21/2025 2:[address] [facility] Blood Venous blood specimen / Unknown Venipuncture / Unknown 01/16/2025 12:24 AM EDT 01/16/2025 1:[address] [facility] - 01/21/2025 2:02 AM EDT Low blood volume submitted, results may be compromised Gus Vigil APRN LAB MICROBIOLOGY - GENER AL ORDERABLES Final Result [facility] [address] [place] [address] * XR Chest 1 View (01/15/2025 11:21 [...] MD on 01/15/2025 11:40 PM Gus Vigil [employer] IMG XR PROCEDURES Final Result * XR [...] MD on 01/15/2025 11:40 PM Gus Vigil [employer] IMG XR PROCEDURES Final Result * Type [...] ORDERA BLES Final Result Performing Organization Address City/[facility]/ZIP Co de Phone Number BLOOD BANK [address] [place] [address], * ECG Adult (01/15/2025 10:46 PM EDT) Pathologist [facility] EKG DIAGNOSIS CLASS Normal MUSE ECG Ventricular Rate 92 BPM MUSE ECG Atrial Rate 92 BPM MUSE ECG ID Interval 122 ms MUSE ECG QRSD Interval 102 ms MUSE ECG QT Interval 350 ms MUSE ECG QTC Interval 432 ms MUSE ECG P [place] 56 degrees MUSE ECG R [place] 44 degrees MUSE ECG T Wave [place] 57 degrees MUSE ECG Diagnosis Normal sinus rhythm MUSE ECG Diagnosis Normal ECG MUSE ECG Diagnosis MUSE ECG Diagnosis Confirmed by Richard Mccracken ([id number]) on 01/16/2025 8:55:10 PM MUSE ECG 01/15/2025 10:4 6 PM EDT 01/16/2025 8:55 PM EDT us Ye Navarro MD ECG ORDERABLES Final Resu lt MUSE ECG * Blood Culture (Aerobic/Anaerobet Set) (01/15/2025 10:11 PM EDT) Culture No growth at day 5 01/20/2025 11:[address] [facility] Blood Structure of antecubital vein / Unknown Venipuncture / Unknown 01/15/2025 10:11 PM EDT 01/15/2025 10:[address] [facility] - 01/20/2025 11:01 PM EDT Low blood volume submitted, results may be compromised [facility] LAB MICROBIOLOGY - GENER AL ORDERABLES Final Result [facility] [address] [place] [address] * (ABNORMAL) Sed rate, automated (01/15/2025 10:11 PM EDT) Sedimentation Rate 46(H) <15 mm/hr 2024 10:34 PM EDT [facility] Blood Venous blood specimen / Unknown Venipuncture / Unknown 01/15/2025 10:11 PM EDT 01/15/2025 10:12 PM EDT [facility] LAB BLOOD ORDERABLES Fin al Result Performing Organization Address City/[facility] [place] [address] * (ABNORMAL) C-Reactive protein (01/15/2025 10:11 PM EDT) CRP, Plasma 91.9(H) <=8.0 mg/L 01/15/2025 10:[address] [facility] Blood Venous blood specimen / Unknown Venipuncture / Unknown 01/15/2025 10:11 PM EDT 01/15/2025 10:[address] [facility] - 01/15/2025 10:32 PM EDT This CRP test is appropriate for assessment of infection, systemic inflammation and/or tissue injury. To assess cardiovascular disease risk order high sensitivity CRP (CRPH). [facility] LAB BLOOD ORDERABLES Fin al Result [facility] [address] [place] [address] * (ABNORMAL) Blood gas panel, venous (01/15/2025 10:11 PM EDT) pH, Venous 7.39 7.32 - 7.43 LAB HEMATOLOGY METHOD 01/15/2025 10:[address] [facility] pCO2, Venous 47 40 - 55 mmHg LAB HEMATOLOGY METHOD 01/15/2025 10:[address] [facility] pO2, Venous 34 25 - 40 mmHg LAB HEMATOLOGY METHOD 01/15/2025 10:[address] [facility] SO2, Measured, Venous 68 65 - 80 % LAB HEMATOLOGY METHOD 01/15/2025 10:[address] [facility] Base Excess, Venous 2.8 -2.0 - 3.0 mmol/L LAB HEMATOLOGY METHOD 01/15/2025 10:[address] [facility] Bicarbonate, Calculated, Venous 29(H) 22 - 26 mmol/L LAB HEMATOLOGY METHOD 01/15/2025 10:[address] [facility] Hematocrit, Whole Blood 40.4 40.0 - 51.0 % LAB HEMATOLOGY METHOD 01/15/2025 10:[address] [facility] Sodium, Whole Blood 135(L) 136 - 145 mmol/L LAB HEMATOLOGY METHOD 01/15/2025 10:[address] [facility] Potassium, Whole Blood 4.3 3.6 - 4.9 mmol/L LAB HEMATOLOGY METHOD 01/15/2025 10:[address] [facility] Chloride, Whole Blood 99 97 - 107 mmol/L LAB HEMATOLOGY METHOD 01/15/2025 10:[address] [facility] Glucose, Whole Blood 110(H) 74 - 99 mg/dL LAB HEMATOLOGY METHOD 01/15/2025 10:[address] [facility] Lactate, Venous, Whole Blood 1.1 0.5 - 2.2 mmol/L LAB HEMATOLOGY METHOD 01/15/2025 10:[address] [facility] Ionized Calcium, Whole Blood 4.6 4.6 - 5.1 mg/dL LAB HEMATOLOGY METHOD 01/15/2025 10:[address] [facility] Blood Venous blood specimen / Unknown Venipuncture / Unknown 01/15/2025 10:11 PM EDT 01/15/2025 10:12 PM EDT Gus Vigil APRN LAB BLOOD ORDERABLES Fin al Result [facility] [address] [place] [address] * (ABNORMAL) CMP (01/15/2025 10:11 PM EDT) Pathologist [facility] Glucose, Plasma 116(H) 74 - 99 mg/dL 01/15/2025 10:[address] [facility] BUN, Plasma 14 7 - 21 mg/dL 01/15/2025 10:[address] [facility] Creatinine, Plasma 0.78 0.70 - 1.20 mg/dL 01/15/2025 10:[address] [facility] BUN/Creatinine Ratio 18 01/15/2025 10:[address] [facility] Sodium, Plasma 134(L) 136 - 145 mmol/L 01/15/2025 10:[address] [facility] Potassium, Plasma 4.6 3.6 - 4.9 mmol/L 01/15/2025 10:[address] [facility] Chloride, Plasma 97 97 - 107 mmol/L 01/15/2025 10:[address] [facility] CO2, Plasma 24 22 - 29 mmol/L 01/15/2025 10:[address] [facility] Anion Gap 13 6 - 16 mmol/L 01/15/2025 10:[address] [facility] Total Calcium, Plasma 8.7(L) 8.9 - 10.2 mg/dL 01/15/2025 10:[address] [facility] Total Protein 6.5 6.3 - 7.9 g/dL 01/15/2025 10:[address] [facility] Albumin, Plasma 3.7 3.5 - 5.2 g/dL 01/15/2025 10:[address] [facility] AST, Plasma 23 10 - 50 U/L 01/15/2025 10:[address] [facility] ALT, Plasma 52(H) 10 - 50 U/L 01/15/2025 10:[address] [facility] Alkaline Phosphatase, Plasma 124(H) 40 - 115 U/L 01/15/2025 10:[address] [facility] Total Bilirubin, Plasma 0.3 0.2 - 1.1 mg/dL 01/15/2025 10:[address] [facility] eGFRcr 119.3 mL/min/1.7 3m*2 01/15/2025 10:[address] [facility] Comment:Reported eGFRcr in m L/min/1.73m2 is based the CKD-EPI 2020 equation that does not use a race coefficient. Blood Venous blood specimen / Unknown Venipuncture / Unknown 01/15/2025 10:11 PM EDT 01/15/2025 10:12 PM EDT Gus Vigil [employer] LAB BLOOD ORDERABLES Fin al Result [facility] [address] [place] [address] * PT-INR (01/15/2025 10:11 PM EDT) Prothrombin Time 12.5 12.0 - 14.3 sec 01/15/2025 10:[address] [facility] INR 1.0 0.9 - 1.1 01/15/2025 10:[address] [facility] Blood Venous blood specimen / Unknown Venipuncture / Unknown 01/15/2025 10:11 PM EDT 01/15/2025 10:[address] [facility] - 01/15/2025 10:28 PM EDT OPTIMAL INR RANGES FOR PATIENT ON ORAL ANTICOAGULANT THERAPY Prevention of venous thromboembolism INR 2.0 to 3.0 In patients with heart disease: Atrial fibrillation INR 2.0 to 3.0 Valvular heart disease INR 2.0 to 3.0 Tissue heart valves INR 2.0 to 3.0 Mechanical prosthetic valves INR 2.5 to 3.5 Prevention of recurrent [place] INR 2.5 to 3.5 us Gus Vigil [employer] LAB BLOOD ORDERABLES Fin al Result [facility] [address] [place] [address] * (ABNORMAL) CBC w/diff (01/15/2025 10:11 PM EDT) WBC Count 19.24(H) 3.70 - 10.30 10*3/uL LAB HEMATOLOGY METHOD 01/15/2025 10:[address] [facility] RBC Count 4.33(L) 4.60 - 6.10 10*6/uL LAB HEMATOLOGY METHOD 01/15/2025 10:[address] [facility] HGB 13.0(L) 13.7 - 17.5 g/dL LAB HEMATOLOGY METHOD 01/15/2025 10:[address] [facility] HCT 39.3(L) 40.0 - 51.0 % LAB HEMATOLOGY METHOD 01/15/2025 10:[address] [facility] Platelet Count 383(H) 155 - 369 10*3/uL LAB HEMATOLOGY METHOD 01/15/2025 10:[address] [facility] MCV 91 79 - 98 fL LAB HEMATOLOGY METHOD 01/15/2025 10:[address] [facility] MCH 30.0 26.0 - 32.0 pg LAB HEMATOLOGY METHOD 01/15/2025 10:[address] [facility] MCHC 33.1 30.7 - 35.5 g/dL LAB HEMATOLOGY METHOD 01/15/2025 10:[address] [facility] RDW 13.2 11.5 - 14.5 % LAB HEMATOLOGY METHOD 01/15/2025 10:[address] [facility] MPV 9.2 8.8 - 12.5 fL LAB HEMATOLOGY METHOD 01/15/2025 10:[address] [facility] nRBC 0.0 <=0.0 per 100 WBCs LAB HEMATOLOGY METHOD 01/15/2025 10:[address] [facility] Differential Type Automated LAB HEMATOLOGY METHOD 01/15/2025 10:[address] [facility] Neutrophils % 78 % LAB HEMATOLOGY METHOD 01/15/2025 10:[address] [facility] Lymphocytes % 12 % LAB HEMATOLOGY METHOD 01/15/2025 10:[address] [facility] Monocytes % 8 % LAB HEMATOLOGY METHOD 01/15/2025 10:[address] [facility] Eosinophils % 1 % LAB HEMATOLOGY METHOD 01/15/2025 10:[address] [facility] Basophils % 0 % LAB HEMATOLOGY METHOD 01/15/2025 10:[address] [facility] Immature Granulocytes % 1 % LAB HEMATOLOGY METHOD 01/15/2025 10:[address] [facility] Neutrophils Absolute 15.11(H) 1.60 - 6.10 10*3/uL LAB HEMATOLOGY METHOD 01/15/2025 10:[address] [facility] Lymphocytes Absolute 2.34 1.20 - 3.90 10*3/uL LAB HEMATOLOGY METHOD 01/15/2025 10:[address] [facility] Monocytes Absolute 1.46(H) 0.30 - 0.90 10*3/uL LAB HEMATOLOGY METHOD 01/15/2025 10:[address] [facility] Eosinophils Absolute 0.13 0.00 - 0.50 10*3/uL LAB HEMATOLOGY METHOD 01/15/2025 10:[address] [facility] Basophils Absolute 0.06 0.00 - 0.10 10*3/uL LAB HEMATOLOGY METHOD 01/15/2025 10:[address] [facility] Immature Granulocytes Absolute 0.14(H) 0.00 - 0.06 10*3/uL LAB HEMATOLOGY METHOD 01/15/2025 10:[address] [facility] Blood Venous blood specimen / Unknown Venipuncture / Unknown 01/15/2025 10:11 PM EDT 01/15/2025 10:[address] [facility] - 01/15/2025 10:14 PM EDT Therapeutic decision making should be based on absolute values, rather than percentages. us Gus Vigil APRN LAB BLOOD ORDERABLES Fin al Result [facility] [address] [place] [address] documented in this encounter Visit Diagnoses Diagnosis Cellulitis of leg, left- Primary Sepsis following procedure, initial encounter ([facility]) Cellulitis of left lower extremity Acute postoperative pain Other acute postoperative pain Closed fracture of left tibial plateau with routine healing, subsequent encounter Cellulitis of leg, left Cellulitis of left lower extremity Sepsis following procedure ([facility]) Closed fracture of left tibial plateau documented in this encounter Admitting Diagnoses Diagnosis Cellulitis of leg, left Cellulitis of left lower extremity Sepsis following procedure ([facility]) Closed fracture of left tibial plateau [...] 2,500 mg, Intravenous, Once, 1 dose, On Mon01/16/25 at 0725, at 228 mL/hr, STAT Given 01/16/2025 9:43 AM EDT 2,500 mg 228 mL/hr vancomycin in NS (Vancocin) IVPB 1,500 mg 1,500 mg, Intravenous, Every 8 hours, First dose on Mon01/16/25 at 1800, Until Discontinued, at 166.7 mL/hr, [...] Martinez, SHEREEN)1709 (Not Given - Provider: Katalina Martinez RN [...] comment - Comment: patient going to OR today)09 (OCT Hold - Provider: Automatic Transfer Provider - Reason: Patient in procedure)121 (OCT Unhold - Provider: Automatic Transfer Provider)2001 (Given - Provider: Taryn Miranda RN) 900 (Given - Provider: Katalina Martinez RN)2106 (Given - Provider: Taryn Miranda RN) 0848 (Given - Provider: Leigh Rg, SHEREEN) mupirocin (Bactroban) 2 % ointment 1 Application Each Nostril, 2 times daily, 10 doses, First dose on Mon01/20/25 at 0945, Last dose on Mon01/24/25 at 2100, Routine 0924 (OCT Hold - Provider: Automatic Transfer Provider - Reason: Patient in procedure)0945 (Dose Auto Held - Provider: Automatic Transfer Provider)121 ([facility] Unhold - Provider: Automatic Transfer Provider)2002 (Given [...] Transfer Provider - Reason: Patient in procedure)121 ([facility] Unhold - Provider: Automatic Transfer Provider)1603 (Medication [...] Routine 0650 (Given - Provider: Taryn Miranda RN)923 (OCT Hold - Provider: Automatic Transfer Provider - Reason: Patient in procedure)1216 (OCT Unhold - Provider: Automatic Transfer Provider)1927 (Given - Provider: Taryn Miranda RN) 0650 (Given - Provider: Taryn Miranda RN)2124 (Given - Provider: Taryn Miranda RN) 06 (Given - Provider: Taryn Miranda SHEREEN) vancomycin in NS (Vancocin) IVPB 1,500 mg [...] Transfer Provider - Reason: Patient in procedure)121 (MAR Unhold - Provider: Automatic Transfer Provider)1630 (Not Given - Provider: Alem Witt, SHEREEN - Reason: Patient/family refused)2002 (Given - Provider: Taryn Miranda, SHEREEN) 043 (Given - Provider: Taryn Miranda, SHEREEN)2107 (Given - Provider: Taryn Miranda RN) magnesium hydroxide (Milk of Magnesia) 400 MG/5ML suspension 30 mL 30 mL, Oral, Daily PRN, Starting on Sneha 01/16/25 at 0750, Until Mon01/22/25 at 1922, Routine, constipation, if no bowel movement for 48 hours 0924 (OCT Hold - Provider: Automatic Transfer Provider - Reason: Patient in procedure)1217 ([facility] Unhold - Provider: Automatic Transfer Provider) naloxone (Narcan) injection 0.08 mg 0.08 mg, Intravenous, As needed, Starting on Sneha 01/16/25 at 0753, Until Mon01/22/25 at 1922, Routine, respiratory depression, every 2 minutes 0924 ([facility] Hold - Provider: Automatic Transfer Provider - Reason: Patient in procedure)1217 ([facility] Unhold - Provider: Automatic Transfer [...] Mon01/22/25 at 1922, Routine, nausea, vomiting 0924 ([facility] Hold - Provider: Automatic Transfer Provider - Reason: Patient in procedure)1217 ([facility] Unhold - Provider: Automatic Transfer [...] RN)0411 (Given - Provider: Taryn Miranda RN)0924 ([facility] Hold - Provider: Automatic Transfer Provider - Reason: Patient in procedure)1217 ([facility] Unhold - Provider: Automatic Transfer Provider)1556 (Given - Provider: lAem Witt RN)2002 (Given - Provider: Taryn Miranda RN) 002 (Given - Provider: Taryn Miranda RN)043 (Given - Provider: Taryn Miranda RN) oxyCODONE (Roxicodone) immediate release tablet 5 mg 5 mg, Oral, Every 6 hours PRN, Starting on Mon01/21/25 at 0847, Until Mon01/22/25 at 1922, Routine, severe pain 0903 (Given - Provider: Katalina Martinez RN)1857 (Given - Provider: Katalina Martinez RN)2320 (Given [...] documented as of this encounter Care Teams [employer] Relationship Specialty Start Date End Date Renetta Pardo APRN [address] [place] [address] [place] [address] PCP - General 09/09/23 documented as of this encounter
--- OUTSIDE RECORDS SUMMARY | 2025-01-18 09:01 | XMS_ITS | Encounter Summary ---
Author Organization Healthcare Address [address] [place] [address] Care Team Providers Care Basket Operator Name Role Phone Renetta Pardo APRN Primary Care Provider [phone] Reason for Visit * Reason Comments Post-op Problem * Auth/Cert (Routine) Specialty Diagnoses / Procedures Referred By Adalid t Referred To Contact Diagnoses Acute postoperative pain Cellulitis of leg, left Cellulitis of left lower extremity Sepsis following procedure, initial encounter ([facility] recent LLE surgery @ now with cellulitis Sachin Garza MD [address] [address] Phone: tel: fax: [facility] H Inpatient [address] [place] [address] Phone: tel: Referral ID Status Reason Start Date Expiration Date Visits Re quested Visits Authorized [id number] 1 1 Encounter Details Date Type Department Care Team (Late st Contact Info) Description 01/18/2025 9:01 AM EDT - 01/18/2025 11:06 AM EDT Surgery [facility] A OPERATING ROOM [address] [place] [address] Ye Navarro MD [id number] [place] [address] INCISION AND DRAINAGE, LOWER EXTREMITY Surgery Details Date/Time Status Location OR Service Patient Class Case Class Case Type Trauma Case? 01/18/2025 9:01 AM Posted [facility] OR 11 Orthopedic Surgery Inpatient T-Timed: to be done within 24 hours Panel 1 Procedure LRB Anes Op Region Wound Class Comments INCISION AND DRAINAGE, LOWER EXTREMITY Left Choice Leg Lower Class IV/ Dirty or Infected supine, berch w/ ext, cystotubing, cx cups, soft tissue set, curettes, 6L NS Surgeon Surgeon Role Service Panel Ye Navarro MD Primary Orthopedic Surger y 1 Harvey Swift MD Resident - Assisting 1 Special Needs supine, berch w/ ext, cystotubing, cx cups, soft tissue set, curettes, 6L NS documented in this encounter Social History Tobacco [...] in a jail (including now)? No 09/12/2023 Humiliation, Afraid, Rape, [...] were you homeless or living in a jail (including now)? 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 0 09/10/2023 CAGE Questionnaire Score 0 024 Utilities Answer Date Recorded In the past 12 months has th e [employer], gas, oil, or water company threatened to [...] Sign Reading Time Taken Comments Blood Pressure 113/70 01/18/2025 8:43 AM EDT Pulse 92 01/18/2025 8:43 AM EDT Temperature 37.4 C (99.3 F) 01/18/2025 8:43 AM EDT Respiratory Rate 18 01/18/2025 8:43 AM EDT Oxygen Saturation 93% 01/18/2025 8:45 AM EDT Inhaled Oxygen Concentration - - Weight 148 kg (325 lb 6.4 oz) 01/15/2025 9:33 PM EDT Height 190.5 cm (6' 3 ) 01/15/2025 9:33 PM EDT Body Mass Index 40.67 01/15/2025 9:33 PM EDT documented in this encounter Functional Status * Calculated C-SSRS Risk Score (Lifetime/Recent) Answer Date of Assessment Author No Risk Indicated 01/18/2025 8:00 AM EDT Umu Fu RN * Question Answer Date of Assessment Author 1. Wish to be (Past 1 Month) No 025 8:00 AM EDT Umu Bangura RN 2. Non-Specific Active Suici mike Thoughts (Past 1 Month) No 01/18/2025 8:00 AM EDT Denise Bangura RN 6. Suicidal Behavior (Lifetime) No 8:00 AM EDT Umu Bangura RN documented as of this encounter Medications [...] of this encounter Miscellaneous Notes * Rosaura Eason - Leigh Rg RN - 01/22/2025 4:21 [...] the video go to this web address: [email or web address] Or, scan this QR code with your smart phone ?? [facility] * Rosaura Chirinosr, Leigh Ybarra RN - 01/22/2025 4:21 PM EDT Images from the original note were not included. 21482 Flushing Your PICC Line at Home Your [...] soap and water, use an alcohol-based hand learning operations specialist. The gel should have at least 60% [...] PICC. Last Reviewed Date: 2024 00:00:00 ?? [id number] [employer]. All rights reserved. This information is not intended as a substitute for professional medical care. Always follow your healthcare professional's instructions. * [facility] Leigh Rg [facility] - 01/22/2025 4:21 PM EDT Images from the original note were not included. 395[address] Discharge Instructions: Changing the Dressing on Your [...] damage Last Reviewed Date: 2024 00:00:00 ?? [id number] [employer]. All rights reserved. This information is not [...] the video go to this web address: [email or web address] Or, scan this QR code with your smart phone ?? [facility] * Leigh Muller RN - 01/22/2025 4:20 PM EDT Images from the original note were not included. 96253 Understanding Post Sepsis Syndrome (PSS) Sepsis is [...] infections Last Reviewed Date: 2022 00:00:00 ?? 3390-3220 [employer]. All rights reserved. This information is not intended as a substitute for professional medical care. Always follow your healthcare professional's instructions. * [facility] - Leigh Rg RN - 01/22/2025 4:20 PM EDT Images from the original note were not included. [id number] Buckle (Torus) Fracture of a Leg Your [...] wet, you can dry it with a psychology department chair on the cool setting. ? [...] doctor Last Reviewed Date: 2024 00:00:00 ?? 6397-8560 [employer]. All rights reserved. This information is not intended as a substitute for professional medical care. Always follow your healthcare professional's instructions. * Rosaura Eason - Leigh Rg RN - 01/22/2025 4:20 PM EDT Images from the original note were not included. 58438 Discharge Instructions for Cellulitis You have been [...] are in pain. Ask what kind of yiwz-gav-xnuvgyi medicine you can take for pain. ? [...] Vomiting. Last Reviewed Date: 2024 00:00:00 ?? 3040-0634 [employer]. All rights reserved. This information is not intended as a substitute for professional medical care. Always follow your healthcare professional's instructions. * Discharge Summary - Mauricio Mondragon MD - 01/22/2025 4:16 PM EDT Hospitalization Admit Date/Time: 01/15/2025 9:32 PM Admitting Attending: Sachin Garza Discharge Date: 01/22/25 Discharge Attending Physician: Sachin Garza MD PCP name and Address: Renetta Pardo, WELDER TECH [address] [place] [address] [address] / [facility] [address] Referring provider name and address: Maldonado Luciano PA [address] [place] [address] [place] [address] Chief Concern, Brief History of Present Illness, and Hospital Course Patient arrived to [facility] on 01[facility]15[facility]25 with concern for [...] medications were sent to [facility] -[place], [place] - [address], [facility] [address] DAPTOmycin injection These medications were sent to [facility] - [place], [place] - [address] [facility] [address] oxyCODONE 5 MG immediate release capsule Discharge Diagnosis Medical Problems Active and Resolved Hospital Problems Hospital Closed fracture of left tibial plateau Overview Addendum 09/16/2023 1:42 PM by Rolanda Adams APRN, DNP ORT consulted TROM in place WB per ORT 09/15: ORIF L tibial plateau fx Follow up with Dr. Nava on 10/04 * (Principal) Cellulitis of leg, left Sepsis following procedure ([facility]) Cellulitis of left lower [...] follow up in orthopaedic trauma clinic on 6/23 - Call the office with any questions or concerns Outpatient Follow-Up Future Appointments Date Time Provider Department Center 01/27/2025 11:00 AM [facility] ORTHOPAEDICS [facility] 02/03/2025 8:10 AM Lawrence Hayes MD [facility] 02/11/2025 1:00 PM Ary Santiago APRN [...] General: Spoke with: Patient, Family, and Bedside loan closer and Interventions: Assessed: Dressing Dressing Interventions: CDI [...] please contact the Orthopedic Transition Nurse at [phone] Monday through Monday 8:00 am to 2:30 pm. If you feel your concern is a medical emergency please call 911 immediately * Progress Notes - Anna Elam RN - 01/22/2025 9:28 AM EDT Case Management Discharge Note Ravin Ribeiro 34 y.o. male CSN: [id number] Admission: 01/15/2025 9:32 PM Primary Problem: Cellulitis of leg, left Primary Paper Rewinder Operator: Primary Caregiver: Self Assistance Available at Discharge: Current Outpatient/Agency/Support Group: DME Availability of Care Givers (#Hours): 24 hours Family/Paper Rewinder Operator(s) Willingness Assessed to care for patient at home: Yes Family/Paper Rewinder Operator(s) Readiness Assessed to care for patient [...] Community Agency(s): Patient's Choice of Community Agency(s): [facility] Patient/Family Anticipated Services at Transition: Patient/Family Anticipated Services at Transition: outpatient care DME/Equipment Needed after Discharge: Equipment Currently Used at Home: walker, rolling, commode chair, wheelchair, manual Equipment Needed After Discharge: walker, rolling, commode chair Readmission Within the Last 30 Days: Readmission Within the Last 30 Days: other (see comments) (cellulitis) Medicare Documentation: Medicare Second Notice?: No (pt [place]icaid) Follow-up: No follow-up provider specified. Discharge Transportation: Transportation Anticipated: family or friend will provide Transportation Home at Discharge: Family/Friend will Provide Has discharge transport been arranged?: No Follow Up Transport: Transportation Needed to Follow up Appoinments: Family/Friend will Provide Additional Comments: Per primary provider, pt is medically ready to discharge home with standard OPAT. PICC in place. Pt will follow up at [facility] for weekly PICC care and labs. First appointment is scheduled for 01/27 at 11 AM. Pt's family will be able to provide assistance and transportation. [facility] will complete teaching today and deliver IV ABX to bedside around 3 PM. Pt and S/O is aware and agreeable to discharge POC. [facility] [phone] [phone] Anna Elam RN * Progress Notes - [...] Canseco MD PGY-1, Orthopaedic Surgery [facility] Pager: [phone] Orthopaedic Recon/Spine/Foot and Ankle Service Pager: [phone] Cosigned by Lawrence Hayes MD at 01/22/2025 [...] outpatient antibiotic therapy team. Objective: Vitals: 01/21/25 191 BP: 135/86 Pulse: 83 Resp: Temp: 36.7 [...] required Red Mondragon MD Orthopaedic Surgery PGY-1 [facility] Pager: [phone] Orthopaedic Recon/Spine/Foot and Ankle Service Pager: [phone] Personal Pager: [phone] Cosigned by Lawrence Hayes MD at 01/22/2025 1:06 PM EDT * Procedures - Norma Miranda RN - 01/21/2025 7:01 PM EDTAssociated Order(s): Insert PICC line Insert PICC line Date/Time: 01/21/2025 7:01 PM Performed by: Norma Miranda RN Authorized by: Sachin Garza MD Vevay Protocol: Verbal consent obtained?: Yes Written consent [...] preference Patient position: Supine Catheter Lot #: [id number] Catheter fruit coordinator: [id number] Solo Catheter placed: Single lumen Catheter size: 4 Fr Catheter trimmed length: 52 Catheter threaded length: 52 Vein placed in: SVC Catheter cm indwellin Catheter cm outside: 52 Placement confirmed by: [employer] 3CG technology Pre-procedure: Landmarks identified Ultrasound guidance: [...] 01/21/2025 3:28 PM EDT Referrals sent to [facility] and for for possible home IV antibiotic infusion. There was no accepting companies in patient's area. CM spoke with patient and he is agreeable to either go to his local hospital [facility] or come to [facility] in [place] for his weekly PICC care/labs if needed. * Nursing Note - Camden Vital RN - 01/21/2025 1:45 PM EDT Orthopedic Transition Nurse Note General: Spoke with: Patient, Family, and Bedside loan closer and Interventions: Assessed: Dressing Dressing Interventions: CDI [...] please contact the Orthopedic Transition Nurse at [phone] Monday through Monday 8:00 am to 2:30 pm. If you feel your concern is a medical emergency please call 911 immediately * Steff Odell RN - 01/21/2025 11:57 AM EDT Images from the original note were not included. [id number] PICC Line Care PICC stands for peripherally [...] arm Last Reviewed Date: 2024 00:00:00 ?? [id number] [employer]. All rights reserved. This information is not intended as a substitute for professional medical care. Always follow your healthcare professional's instructions. * Steff Odell RN - 01/21/2025 11:56 AM EDT Images from the original note were not included. [id number] * Steff Odell RN - 01/21/2025 11:56 AM EDT Images from the original note were not included. [id number] * Steff Odell RN - 01/21/2025 11:56 [...] your house or a medical facility. The counter caser/certified social workers in health care will setthat up based on your insurance. [...] or during weekends/[place] holidays, call the paging cold saw operator at . Ask for the infectious disease fellow health and nutrition specialist. Call the clinic if you have any [...] from the original note were not included. 09697 Flushing Your PICC Line at Home Your [...] soap and water, use an alcohol-based hand learning operations specialist. The gel should have at least 60% [...] PICC. Last Reviewed Date: 2024 00:00:00 ?? 7608-6625 [employer]. All rights reserved. This information is not intended as a substitute for professional medical care. Always follow your healthcare professional's instructions. * [facility] - Steff Paz RN - 01/21/2025 11:56 AM EDT Images from the original note were not included. [id number] Daptomycin Injection Brand Name(s): Cubicin??, Cubicin RF??; [...] injected into a vein by a doctor ornmendoza. It is usually given once a day. [...] to the Food and Drug Administration's (FDA) MedAn[employer]atch Adverse Event Reporting program online (https://www.fda.gov/Safety/MedWatch) or by phone ( ). What should I do in case of OVERDOSE? In case of overdose, call the poison control helpline at . Information is also available online at https://www.poisonhelp.org/help. If the victim has collapsed, had a seizure, has trouble breathing, or can't be awakened, immediately call emergency services at 874. What OTHER INFORMATION should I know? Keep [...] of all of the prescription and nonprescription (gevt-ibs-hgctlit) medicines you are taking, as well as [...] or pharmacist about specific clinical use. The [employer] represents that the information provided hereunder was formulated with a reasonable standard of care, and in conformity with professional standards in the field. The [employer] makes no representations or warranties, express or implied, including, but not limited to, any implied warranty of merchantability and/or fitness for a particular purpose, with respect to such information and specifically disclaims all such warranties. Users are advised that decisions regarding drug therapy are complex medical decisions requiring the independent, informed decision of an appropriate health ostomy care nurse, and the information is provided for informational purposes only. The entire monograph for a drug should be reviewed for a thorough understanding of the drug's actions, uses and side effects. The [employer] does not endorse or recommend the use of any drug.The information is not a substitute for medical care. AHFS?? Patient Medication Information?. ?? Copyright, 2023. The [employer] Pharmac[employer]??, [address], [address], [place], [place]. All Rights Reserved. Duplication for commercial use must be authorized by [facility]. Selected Revisions: July 28, 2019. AHFS?? Patient Medication Information?. ?? Copyright, 2024 * Rosaura Eason - Steff Paz RN - 01/21/2025 11:56 AM EDT Images from the original note were not included. [id number] Discharge Instructions: Caring for Your Peripherally Inserted [...] damage. Last Reviewed Date: 2024 00:00:00 ?? 5329-2691 [employer]. All rights reserved. This information is not intended as a substitute for professional medical care. Always follow your healthcare professional's instructions. * [facility] - Steff Paz RN - 01/21/2025 11:56 AM EDT Images from the original note were not included. 10151 Central Line Infections You need a central [...] water. Or they use an alcohol-based hand learning operations specialist containing at least 60% alcohol. ? Using [...] (warm or cold), and use alcohol-based hand learning operations specialist with at least 60% alcohol as directed. To clean your hands well,follow the guidelines on this sheet. Visitors should wash their hands well when they arrive and when they leave. ? Make sure healthcare staff and your visitors clean their hands. They should use soap and clean, running water or an alcohol-based hand learning operations specialist before and after checking the line. Don?t [...] good choice for cleaning your hands. The learning operations specialist should have at least 60% alcohol. Note that some germs can't be killed by alcohol. Your healthcare team can answer any questions you have about when to use a hand learning operations specialist, or when it?s better to wash with soap and water. Follow these steps: ? Spread the hand learning operations specialist in the palm of one hand. (Check the package for specific guidelines.) ? Rub your hands together briskly. Clean the backs of your hands, the palms, between your fingers, and up your wrists. ? Rub until the learning operations specialist is gone and your hands are completely [...] skin Last Reviewed Date: 2023 00:00:00 ?? 6642-5173 [employer]. All rights reserved. This information is not [...] Single Lumen PICC Patient Specific Outpatient Circumstances: [address] [place] [address] Family Support: Extended Emergency Contact Information Primary Emergency Contact: Hayley Buenrostro Address: [address] [place] [address] [place] Relation: Significant Other Preferred language: Albanian Drying Tumbler Operator needed? No Secondary Emergency Contact: Jenny Buenrostro Address: [address] [place] [address] [place] Relation: Mother Contact information: Ravin Ribeiro [phone] (home) Outpatient services (including home infusion, home health, facility referral: See recent [place] case management/social work note for finalization of services ID follow up appointment: Future Appointments Date Time Provider Department Center 02/03/2025 8:10 AM Lawrence Hayes MD [facility] 02/11/2025 1:00 PM Ary Santiago APRN [...] via secure chat or staff messaging in [employer]. Patient and family will need to [...] days prior to presentation. He presented to [facility] wherehe was febrile to 101.3F. Upon [...] PA-C Division of Infectious Diseases Available on [employer] Chat History, assessment, and plan discussed [...] labs to: ID OPAT Team Fax #: [phone] Appointments: Ary Santiago APRN on 02/11 at 1PM and 03/03 at 1PM [facility]: [address] [place] [address] (Select Option 3 for IV Antibiotic / PICC line related issues) For questions regarding OPAT prior to discharge, reach out to the OPAT team via [employer] Secure Chat (Group: OPAT Referral Team). For all questions regarding OPAT after discharge should be directed to the OPAT Team at (Select Option 3 for IV Antibiotics/PICC Issues) between 8am-5pm. After 5 pm, or during weekends/[place] holidays, please call the paging cold saw operator at to reach the on-call ID [...] at 01/18/25 1133 [2] Allergies Allergen Reactions [place] Hives * Consults - Delma Ortiz - 01/21/2025 10:00 AM EDT Pastoral Care Note: Patient was appreciative of mortgage specialist's visit and expressed gratitude to the care team. he said family is on their way to him. Referral From: Apparel Pattern Maker Initiated Pastoral Care Provided For: Patient Patient Profile: Spiritual Assessment: Support Systems/ Spiritual Resources: Treasure, Sense of Peace, Trust, Gratitude Spiritual Needs: Emotional support, Spiritual ritual Spiritual Issues: Discharge Interventions: Pastoral Care Outcomes: Patient Outcomes: Appreciative of Apparel Pattern Maker Support, Expresses acceptance, Gratitude Cosigned by Macrnia Dumont at 01/21/2025 6:24 PM EDT Associated attestation - Macrina Dumont - 01/21/2025 6:24 PM EDT This is to attest mortgage specialist internet sales representative chart note has been reviewed and okayed. [...] ambulate in room/hallway with family and staff cytotechnologist while remains inpatient. Patient demonstrates no further [...] Prevent or Manage Infection Flowsheets (Taken 01/20/2025 0095) Infection Management: aseptic technique maintained Fever Reduction/Comfort [...] Agree with above assessment and evaluation from resident/GROUP ART SUPERVISOR. * Progress Notes - Anna Elam RN - 01/20/2025 10:48 AM EDT Case Management Adult Progress Note Ravin Ribeiro 34 y.o. male CSN: [id number] Admission: 01/15/2025 9:32 PM Primary Problem: Cellulitis of leg, left Anticipated Discharge Date: TBD Pt to OR today for repeat I&D on left knee. Pt has worsening NORMAN and team wants to repeat AM labs. Final ID recs and OPAT eval are pending. [facility] Pt's medicaid may be a potential barrier to HH. CM will continue to assist with discharge POC. Anna Elam RN * Op Note - Bob Nava MD - 01/20/2025 10:26 AM EDT Operative Note Date: 01/20/25 Location: [facility] OR Name: Ravin Ribeiro, : 1990, Diagnoses: Pre-op Diagnosis Closed fracture of left tibial plateau with routine healing, subsequent encounter Left proximal tibia (knee region) deep abscess Post-op Diagnosis Closed fracture of left tibial plateau with routine healing, subsequent encounter Left proximal tibia (knee region) deep abscess Procedure(s): Incision and drainage of left knee deep abscess Attending Surgeon(s): * Bob Nava - Primary Hand Mixer(s): * Emely Giron MD - Resident - [...] days prior to presentation. He presented to [facility] wherehe was febrile to 101.3F. Upon [...] PA-C Division of Infectious Diseases Available on [employer] Chat History, assessment, and plan discussed with ID attending, Dr. Madhuri Collado The following complex inpatient infectious disease services were performed today: Complex antimicrobial therapy counseling and treatment [1] Current Facility-Administered Medications Medication Dose Route Frequency Provider Last Rate Last Admin [Transfer Hold] acetaminophen (Tylenol) tablet 1,000 mg 1,000 mg Oral q6h ALIYA Tyrone Howadr MD1,000 mg at 01/20/25 0614 [Transfer Hold] [...] Gustavo Hightower MD [2] Allergies Allergen Reactions [place]lothian Hives * Consults - Ricco Howard RN [...] Canseco MD PGY-1, Orthopaedic Surgery [facility]opa[facility] Service Pager: [phone] Orthopaedic Recon/Spine/Foot and Ankle Service Pager: [phone] Cosigned by Sachin Garza MD at 01/20/2025 [...] Course 1. Sepsis following procedure, initial encounter ([facility]) 2. Cellulitis of left [...] admission Level of Mobility: Ambulatory- community Mobility Almond: Independent gait without device (intermittne use of [...] Mobility Bed Mobility Exam: Scooting/Bridging Level of Almond: Independent Bed Mobility Exam: Supine to Sit Level of Almond: Independent Transfers Transfer Exam: Sit to stand Level of Almond: Stand-by assist Physical/Nonphysical Assist: Verbal Cues Assistive Device: Walker, rolling Transfer Exam: Stand to Sit Level of Almond: Stand-by assist Physical/Nonphysical Assist: Verbal Cues Assistive Device: Walker, rolling Toilet Transfer Level of Almond: Stand-by assist Physical/Nonphysical Assist: Verbal Cues Type of Transfer: Ambulation, To toilet Assistive Device: Walker, rolling, Grab bar Functional Mobility Device: Rolling walker Assistance: Standby assist <Household distance, cuing for safety, pacing activity, RW management, and encouraged L LE WBAT-as permitted per chart (pt reports being used to [facility] 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 management 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) Balance Postural Appearance Posture: Within Functional Limits [...] admission Level of Mobility: Ambulatory- community Mobility Almond: Independent gait without device (intermittne use of [...] Mobility Bed Mobility Exam: Scooting/Bridging Level of Almond: Independent Bed Mobility Exam: Supine to Sit Level of Almond: Independent Transfers Transfer Exam: Sit to stand Level of Almond: Stand-by assist Physical/Nonphysical Assist: Verbal Cues Assistive Device: Walker, rolling Transfer Exam: Stand to Sit Level of Almond: Stand-by assist Physical/Nonphysical Assist: Verbal Cues Assistive [...] 3-5 steps with a railing?: A little [facility] 6-Clicks Mobility Assessment Total : 23 [...] fx (01/01) s/p I&D (01/18) Edited by: Mauircio Mondragon MD at 01/19/2025 0515 SSI: H/H [...] required Red Mondragon MD Orthopaedic Surgery PGY-1 [facility]opa[facility] Tra[facility] Service Pager: [phone] Orthopaedic Recon/Spine/Foot and Ankle Service Pager: [phone] Personal Pager: [phone] Cosigned by Ye Navarro MD at 01/21/2025 [...] Attending Surgeon(s): * Ye Navarro - Primary Hand Mixer(s): * Hravey Swift MD - Resident - Assisting Anesthesia: [...] this will make NPO @ [place]. Repeat exam67 AM with possible OR. Suhail Dueñas MD 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 loan closer and Interventions: Assessed: Wound 01/01/25 Surgical Open Surgical Incision Pretibial Left;Proximal (Active) Wound Assessment Red 01/15/25 2150 Margins Well-defined edges;Attached edges 01/15/252149 Janeth-Wound Assessment Red 01/15/25 2150 Closure [place] 01/15/252149 Wound 01/01/25 Face Left;Upper (Active) Education: Education provided on: Pain protocol/management Plan of Care: Follow up with TBD. Op-Plan: Awaiting to see how patient responds to IV abx. Contact Card Given: no Comments: Team is waiting to see if patient improves on IV abx. Awaiting ID recs. 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 He was febrile to101.3F [...] on day of presentation. He lives in [place] with his , CONSTANZA, and 2 young [...] time each day. 09/17/23 Rolanda Adams APRN, KALYANI naloxone (Narcan) 4 mg/0.1 mL nasal spray [...] specificity due to marked streak and beam Bertrnad artifact. Hardware internal fixation with proximal tibia [...] days prior to presentation. [facility] presented to [facility] wherehe was febrile to 101.3F. Upon [...] PA-C Division of Infectious Diseases Available on [employer] Chat History, assessment, and plan discussed with ID attending, Dr. Azucena Collado The following complex inpatient infectious disease services were performed today: Complex antimicrobial therapy counseling and treatment [1] History reviewed. No pertinent past medical history. [2] Past Surgical History: Procedure Laterality Date LEG SURGERY Left [3] Allergies Allergen Reactions Midlothian Hives [4] Current Facility-Administered Medications Medication Dose [...] 0.08 mg 0.08 mg Intravenous PRN Tyrone Hwoard MD nicotine (Nicoderm CQ) 21 MG/24HR patch [...] Note Ravin Ribeiro 34 y.o. male CSN: [id number] Admission: 01/15/2025 9:32 PM Primary Problem: Cellulitis of leg, left Solar Sales Consultant reviewed chart and spoke with patient to complete this Initial Case Management Assessment. 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 No Secondary Emergency Contact: Jenny Buenrostro Address: [address] [place] [address] Mobile Relation: Mother Insurance: Primary Visit Coverage Payer Plan Sponsor Code Group Number Group Name [employer]ICAID [place] [employer]ORT [place] MEDICAID Primary Visit Coverage Subscriber Subscriber ID Subscriber Name Subscriber N Subscriber Address [id number] RAVIN RIBEIRO [id number] [place] [address] Patient information: Primary Caregiver: Self Support System: Immediate family Daily Living Activities: Functional Status: Independent Living Arrangements: Spouse/Significant other, Family Type of Residence: Private residence, Single Level [address] [place] [address] Current DME: Equipment Currently Used at Home: [...] Outpatient Dialysis Services: Living Will/Advance Directive/Power of Electric Wirer /Guardian: Have you reviewed your Advance Directive [...] Pt states he lives at home in [place] with his , MIL, and two small 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 loan closer and Interventions: Assessed: Wound 01/01/25 Surgical Open Surgical Incision Pretibial Left;Proximal (Active) Wound Assessment Red 01/15/25 2150 Margins Well-defined edges;Attached edges 01/15/250 Janeth-Wound Assessment Red 01/15/25 2150 Closure [place] 01/15/25 2150 Wound 01/01/25 Face Left;Upper (Active) [...] please contact the Orthopedic Transition Nurse at [phone] Monday through Monday 8:00 am to 2:30 [...] tibial pulse, cap refill <2 sec, digits P Orthopedic Surgery Tertiary Exam Completed 01/16/25 No [...] exams. Mitch Giron MD PGY-3, Orthopaedic Surgery [facility] Tra[facility] Service Pager: [phone] Orthopaedic Recon/Spine/Foot and Ankle Service Pager: [phone] Cosigned by Sachin Garza MD at 01/18/2025 [...] please contact the Orthopedic Transition Nurse at [phone] Monday through Monday 8:00 am to 2:30 pm. If you feel your concern is a medical emergency please call 911 immediately. * Pharmacy note - Jeannette Daly PharmD - 01/16/2025 10:09 AM EDT Pharmacokinetic [...] examinations Tabitha Howard MD PGY-2, Orthopaedic Surgery [facility] Cosigned by Sachin Garza MD at 01/16/2025 [...] fracture WRadha Howard MD PGY-2, Orthopaedic Surgery [facility] Trauma Service Pager: [phone] Orthopaedic Recon/Spine/Foot and Ankle Service Pager: [phone] [1] History reviewed. No pertinent past medical [...] 25 tablet 0 [4] Allergies Allergen Reactions Midlothian Hives Cosigned by Sachin Garza MD at [...] Posterior, Medial Once Acknowledged EMELY GIRON 01/16/25 004 CBC W/O Differential STAT Final result TYRONE HOWARD 01/16/25 004 Prothrombin Time/INR STAT Final result TYRONE HOWARD 01/16/25 0043 Basic Metabolic Panel, Plasma STAT Final result TYRONE HOWARD 01/15/252224 STAT Canceled TYRONE HOWARD Miguel 01/15/252224 STAT Canceled TYRONE HOWARD 01/15/252224 STAT Canceled TYRONE HOWARD 01/15/252224 NPO diet NPO except: Sips with meds Diet effective midnight Comments: To OR with Ortho Acknowledged TYRONE HOWARD Miguel 01/15/25 222 ECG Adult Once Comments: Preop Clearance Preliminary result TYRONE HOWARD Miguel 01/15/252224 XR Chest 1 View One time imaging Comments: Preop Clearance Final result TYRONE HOWARD Miguel 01/15/252224 Type and Screen Once Final result TYRONE HOWARD Miguel 01/15/252224 Once Canceled GUS VIGIL P 01/15/252224 [...] PT-INR STAT Final result GUS VIGIL P 01/15/25 213 CMP STAT Final result GUS VIGIL Assessment: Clinical Impressions as of 01/16/25 0657 Sepsis following procedure, initial encounter ([facility] Cellulitis of left lower [...] diagnosis was Sepsis following procedure, initial encounter ([facility]). Diagnoses of Cellulitis of [...] Drug use: Never [5] Allergies Allergen Reactions Midlothian Hives Gus Vigil APRN 01/16/25 0657 Cosigned by Philippe Mann MD at 01/18/2025 8:50 AM EDT Associated attestation - Philippe Mann MD - 01/18/2025 8:50 AM EDT I attest to being involved in more than half the total time in patient care. * ED Triage Notes - Magnus Hernandez - 01/15/2025 9:21 PM EDT Pt transferred from OSH for cellulitis to LLE s/p recent tibial surgery on 12/31. Pt had surgery to same area on 09/15/23 and re-injured area. Pt has vancomycin infusion on arrival. AAOX4, GCS 15. C/O leg pain 5/10. * Progress Notes - Hayden Weiss, ZNA - 01/15/2025 9:21 PM EDT Images from [...] is a 34 y.o. male with relevant PMH tibial plateau fracture initially repaired September 2023 [...] 01/16/2025 0733 Date/Time Order Dose Route Action 01/15/20252212 EDT fentaNYL (Sublimaze) injection 50 mcg 50 [...] 01/16/25 0733 Sepsis following procedure, initial encounter ([facility]) Cellulitis of left lower extremity Acute postoperative pain Ultimately, this patient Was admitted (Admission) The primary encounter diagnosis was Sepsis following procedure, initial encounter ([facility]). Diagnoses of Cellulitis of [...] Description 02/11/2025 1:00 PM EDT Office Visit [facility] [address] [place] [address] Ary Santiago, WELDER TECH [address] [facility] [address] [place] [phone] 02/17/2025 8:40 AM EDT Appointment [facility] Radiology [address] [place] [phone] 02/17/2025 9:20 AM EDT Office Visit [facility] Orthopaedic Surgery & Sports Medicine [address] [place] [address] Lawrence Hayes MD [address] [place] [address] 03/03/2025 1:00 PM EDT Office Visit [facility] [address] [place] [phone] Ary Santiago, WELDER TECH [address] [facility] [address] [place] [address] Pending Results Name Type Priority Associated Diagnoses [...] tibial plateau with routine healing, subsequent encounter CREATINE KINASE, TOTAL, PLASMA Routine 01/20/2025 3:40 [...] (ABNORMAL) C-reactive protein (01/22/2025 5:04 AM EDT) [facility] CRP, Plasma 44.4(H) <=8.0 mg/L 01/22/2025 9:25 AM EDT [facility] Blood Venous blood specimen / Unknown Venipuncture / Unknown 01/22/2025 5:04 AM EDT 01/22/2025 5:31 AM EDT Narrative [facility] - 01/22/2025 9:25 AM EDT This CRP test is appropriate for assessment of infection, systemic inflammation and/or tissue injury. To assess cardiovascular disease risk order high sensitivity CRP (CRPH). us Michelle ZULUAGA LAB BLOOD ORDERABLES Final Res ult Performing Organization Address [facility]/ZIP Co de Phone Number [facility] [address] [place] [address] * Lavender Top (01/22/2025 5:04 AM EDT) Extra Hold for add-ons 01/22/2025 8:02 AM EDT [facility] Comment:Auto resulted. Blood Venous blood specimen / Unknown 01/22/2025 5:04 AM EDT 01/22/2025 5:30 AM EDT us Sachin Garza MD LAB BLOOD ORDERABLES Final R esult Performing Organization Address [facility] Co de Phone Number [facility] [address] [place] [address] * (ABNORMAL) Basic metabolic panel (01/22/2025 5:04 AM EDT) Glucose, Plasma 91 74 - 99 mg/dL 01/22/2025 6:01 AM EDT [facility] BUN, Plasma 33(H) 7 - 21 mg/dL 01/22/2025 6:01 AM EDT [facility] Creatinine, Plasma 1.47(H) 0.70 - 1.20 mg/dL 01/22/2025 6:01 AM EDT [facility] BUN/Creatinine Ratio 22 01/22/2025 6:01 AM EDT [facility] Sodium, Plasma 137 136 - 145 mmol/L 01/22/2025 6:01 AM EDT [facility] Potassium, Plasma 5.3(H) 3.6 - 4.9 mmol/L 01/22/2025 6:01 AM EDT [facility] Chloride, Plasma 100 97 - 107 mmol/L 01/22/2025 6:01 AM EDT [facility] CO2, Plasma 28 22 - 29 mmol/L 01/22/2025 6:01 AM EDT [facility] Anion Gap 9 6 - 16 mmol/L 01/22/2025 6:01 AM EDT [facility] Total Calcium, Plasma 9.6 8.9 - 10.2 mg/dL 01/22/2025 6:01 AM EDT [facility] eGFRcr 63.4 mL/min/1.7 3m*2 01/22/2025 6:01 AM EDT [facility] Comment:Reported eGFRcr in m L/min/1.73m2 is based the CKD-EPI 2020 equation that does not use a race coefficient. Blood Venous blood specimen / Unknown Venipuncture / Unknown 01/22/2025 5:04 AM EDT 01/22/2025 5:31 AM EDT us Sachin Garza MD LAB BLOOD ORDERABLES Final R esult [facility] [address] [place] [address] * (ABNORMAL) CBC (01/21/2025 7:29 PM EDT) WBC Count 10.10 3.70 - 10.30 10*3/uL LAB HEMATOLOGY METHOD 01/21/2025 7:42 PM EDT [facility] RBC Count 3.82(L) 4.60 - 6.10 10*6/uL LAB HEMATOLOGY METHOD 01/21/2025 7:42 PM EDT [facility] HGB 11.5(L) 13.7 - 17.5 g/dL LAB HEMATOLOGY METHOD 01/21/2025 7:42 PM EDT [facility] HCT 35.2(L) 40.0 - 51.0 % LAB HEMATOLOGY METHOD 01/21/2025 7:42 PM EDT [facility] Platelet Count 446(H) 155 - 369 10*3/uL LAB HEMATOLOGY METHOD 01/21/2025 7:42 PM EDT [facility] MCV 92 79 - 98 fL LAB HEMATOLOGY METHOD 01/21/2025 7:42 PM EDT [facility] MCH 30.1 26.0 - 32.0 pg LAB HEMATOLOGY METHOD 01/21/2025 7:42 PM EDT [facility] MCHC 32.7 30.7 - 35.5 g/dL LAB HEMATOLOGY METHOD 01/21/2025 7:42 PM EDT [facility] RDW 13.1 11.5 - 14.5 % LAB HEMATOLOGY METHOD 01/21/2025 7:42 PM EDT [facility] MPV 9.1 8.8 - 12.5 fL LAB HEMATOLOGY METHOD 01/21/2025 7:42 PM EDT [facility] nRBC 0.0 <=0.0 per 100 WBCs LAB HEMATOLOGY METHOD 01/21/2025 7:42 PM EDT [facility] Blood Venous blood specimen / Unknown Venipuncture / Unknown 01/21/2025 7:29 PM EDT 01/21/2025 7:35 PM EDT us Sacihn Garza MD LAB BLOOD ORDERABLES Final R esult [facility] [address] [place] [id number] * (ABNORMAL) Basic metabolic panel (01/21/2025 7:29 PM EDT) Glucose, Plasma 122(H) 74 - 99 mg/dL 01/21/2025 8:03 PM EDT [facility] BUN, Plasma 31(H) 7 - 21 mg/dL 01/21/2025 8:03 PM EDT [facility] Creatinine, Plasma 1.64(H) 0.70 - 1.20 mg/dL 01/21/2025 8:03 PM EDT [facility] BUN/Creatinine Ratio 19 01/21/2025 8:03 PM EDT [facility] Sodium, Plasma 139 136 - 145 mmol/L 01/21/2025 8:03 PM EDT [facility] Potassium, Plasma 4.6 3.6 - 4.9 mmol/L 01/21/2025 8:03 PM EDT [facility] Chloride, Plasma 101 97 - 107 mmol/L 01/21/2025 8:03 PM EDT [facility] CO2, Plasma 26 22 - 29 mmol/L 01/21/2025 8:03 PM EDT [facility] Anion Gap 12 6 - 16 mmol/L 01/21/2025 8:03 PM EDT [facility] Total Calcium, Plasma 9.1 8.9 - 10.2 mg/dL 01/21/2025 8:03 PM EDT [facility] eGFRcr 55.6 mL/min/1.7 3m*2 01/21/2025 8:03 PM EDT [facility] Comment:Reported eGFRcr in m L/min/1.73m2 is based the CKD-EPI 2020 equation that does not use a race coefficient. Blood Venous blood specimen / Unknown Venipuncture / Unknown 01/21/2025 7:29 PM EDT 01/21/2025 7:35 PM EDT Sachin Garza MD LAB BLOOD ORDERABLES Final R esult Performing Organization Address City/State/[facility] Co de Phone Number [facility] [address] [place] [address] * PICC SINGLE LUMEN (SMARTFORM LINK) (01/21/2025 7:01 PM EDT) Narrative Norma Miranda RN - 01/21/2025 7:01 PM EDT Norma Miranda RN 01/21/2025 7:19 PM Insert PICC line Date/Time: 01/21/2025 7:01 PM Performed by: Norma Miranda RN Authorized by: Sachin Garza MD Vevay Protocol: Verbal consent obtained?: Yes Written consent [...] preference Patient position: Supine Catheter Lot #: [id number] Catheter fruit coordinator: Bard PowerPICC Solo Catheter placed: Single lumen [...] at day 4 2024 7:15 AM EDT [facility] Gram Stain Result No polymorphonuclear leukocytes seen 01/25/2025 7:15 AM EDT [facility] Gram Stain Result No organisms seen 01/25/2025 7:15 AM EDT [facility] Swab Structure of left knee region / Unknown 01/20/2025 10:42 AM EDT 01/20/2025 11:25 AM EDT Comment:Pre-op diagnosis: Closed fracture of left tibial plateau with routine healing, subsequent encounter [A20.479G] Bob Nava MD LAB MICROBIOLOGY - GENERAL O RDERABLES Final Result [facility] [address] [place] [address] * Fungal Culture, Routine (01/20/2025 10:42 AM EDT) Culture No Fungal Growth at 1 Week 01/28/2025 7:34 AM EDT [facility] Swab Structure of left knee region / Unknown 01/20/2025 10:42 AM EDT 01/20/2025 11:25 AM EDT Comment:Pre-op diagnosis: Closed fracture of left tibial plateau with routine healing, subsequent encounter [S82.142D] us Bob Nava MD LAB MICROBIOLOGY - GENERAL O RDERABLES Final Result Performing Organization Address City/[facility]/ZIP Co de Phone Number [facility] [address] [place] [address] * Anaerobic Culture (01/20/2025 10:42 AM EDT) Culture No growth at day 4 01/28/2025 7:09 AM EDT [facility] Swab Structure of left knee region / Unknown 01/20/2025 10:42 AM EDT 01/20/2025 11:25 AM EDT Comment:Pre-op diagnosis: Closed fracture of left tibial plateau with routine healing, subsequent encounter [S82.142D] us Bob Nava MD LAB MICROBIOLOGY - GENERAL O RDERABLES Final Result Performing Organization Address City/[facility]/ZIP Co de Phone Number [facility] [address] [place] [address] * Tissue Culture and Gram Stain (01/20/2025 10:30 AM EDT) Culture No growth at day 4 2024 7:15 AM EDT [facility] Gram Stain Result No polymorphonuclear leukocytes seen 01/25/2025 7:15 AM EDT [facility] Gram Stain Result No organisms seen 01/25/2025 7:15 AM EDT [facility] Tissue Structure of left knee region / Unknown 01/20/2025 10:30 AM EDT 01/20/2025 11:23 AM EDT Comment:Pre-op diagnosis: Closed fracture of left tibial plateau with routine healing, subsequent encounter [S82.142D] us Bob Nava MD LAB MICROBIOLOGY - GENERAL O RDERABLES Final Result Performing Organization Address City/[facility] Co de Phone Number [facility] [address] [place] [address] * Anaerobic Culture (01/20/2025 10:30 AM EDT) Culture No growth at day 4 01/28/2025 7:09 AM EDT [facility] Tissue Structure of left knee region / Unknown 01/20/2025 10:30 AM EDT 01/20/2025 11:23 AM EDT Comment:Pre-op diagnosis: Closed fracture of left tibial plateau with routine healing, subsequent encounter [S82.142D] us Bob Nava MD LAB MICROBIOLOGY - GENERAL O RDERABLES Final Result Performing Organization Address [facility] Co de Phone Number [facility] [address] [place] [address] * Tissue Culture and Gram Stain (01/20/2025 10:27 AM EDT) Culture No growth at day 4 2024 7:15 AM EDT [facility] Gram Stain Result No organisms seen 01/25/2025 7:15 AM EDT [facility] Gram Stain Result No polymorphonuclear leukocytes seen 01/25/2025 7:15 AM EDT [facility] Tissue Structure of left knee region / Unknown 01/20/2025 10:27 AM EDT 01/20/2025 11:24 AM EDT Comment:Pre-op diagnosis: Closed fracture of left tibial plateau with routine healing, subsequent encounter [S82.142D] us Bob Nava MD LAB MICROBIOLOGY - GENERAL O RDERABLES Final Result Performing Organization Address City/[facility] Co de Phone Number [facility] [address] [place] [address] * Anaerobic Culture (01/20/2025 10:27 AM EDT) Culture No growth at day 4 01/28/2025 7:09 AM EDT [facility] Tissue Structure of left knee region / Unknown 01/20/2025 10:27 AM EDT 01/20/2025 11:24 AM EDT Comment:Pre-op diagnosis: Closed fracture of left tibial plateau with routine healing, subsequent encounter [K33.845F] Bob Nava MD LAB MICROBIOLOGY - GENERAL O RDERABLES Final Result Performing Organization Address City/[facility]/ZIP Co de Phone Number [facility] [address] [place] [address] * (ABNORMAL) Creatine Kinase (CK), Total (01/20/2025 3:40 AM EDT) [facility] Creatine Kinase, Plasma 18(L) 49 - 320 U/L 01/21/2025 12:17 PM EDT [facility] Blood Venous blood specimen / Unknown Venipuncture / Unknown 01/20/2025 3:40 AM EDT 01/20/2025 3:57 AM EDT Sachin Garza MD LAB BLOOD ORDERABLES Final R esult Performing Organization Address [facility] [place] [address] * Vancomycin, random (01/20/2025 3:40 AM EDT) [facility] Vancomycin, Random, Plasma 20.1 ug/mL 01/20/2025 4:51 AM EDT [facility] Blood Venous blood specimen / Unknown Venipuncture / Unknown 01/20/2025 3:40 AM EDT 01/20/2025 3:57 AM EDT Sachin Garza MD LAB BLOOD ORDERABLES Final R esult Performing Organization Address City/[facility]/ZIP Co de Phone Number [facility] [address] [place] [address] * Protime-INR (01/20/2025 3:40 AM EDT) [facility] Prothrombin Time 13.5 12.0 - 14.3 sec LAB COAGULATION METHOD 01/20/2025 4:17 AM EDT [facility] INR 1.0 0.9 - 1.1 LAB COAGULATION METHOD 01/20/2025 4:17 AM EDT [facility] Blood Venous blood specimen / Unknown Venipuncture / Unknown 01/20/2025 3:40 AM EDT 01/20/2025 3:56 AM EDT Narrative [facility] - 01/20/2025 4:17 AM EDT OPTIMAL INR RANGES FOR PATIENT ON ORAL ANTICOAGULANT THERAPY Prevention of venous thromboembolism INR 2.0 to 3.0 In patients with heart disease: Atrial fibrillation INR 2.0 to 3.0 Valvular heart disease INR 2.0 to 3.0 Tissue heart valves INR 2.0 to 3.0 Mechanical prosthetic valves INR 2.5 to 3.5 Prevention of recurrent FL INR 2.5 to 3.5 Sachin Garza MD LAB BLOOD ORDERABLES Final R esult [facility] [address] [place] [address] * (ABNORMAL) Basic metabolic panel (01/20/2025 3:40 AM EDT) [facility] Glucose, Plasma 87 74 - 99 mg/dL 01/20/2025 4:51 AM EDT [facility] BUN, Plasma 30(H) 7 - 21 mg/dL 01/20/2025 4:51 AM EDT [facility] Creatinine, Plasma 1.59(H) 0.70 - 1.20 mg/dL 01/20/2025 4:51 AM EDT [facility] BUN/Creatinine Ratio 19 01/20/2025 4:51 AM EDT [facility] Sodium, Plasma 142 136 - 145 mmol/L 01/20/2025 4:51 AM EDT [facility] Potassium, Plasma 4.7 3.6 - 4.9 mmol/L 01/20/2025 4:51 AM EDT [facility] Chloride, Plasma 104 97 - 107 mmol/L 01/20/2025 4:51 AM EDT [facility] CO2, Plasma 26 22 - 29 mmol/L 01/20/2025 4:51 AM EDT [facility] Anion Gap 12 6 - 16 mmol/L 01/20/2025 4:51 AM EDT [facility] Total Calcium, Plasma 8.9 8.9 - 10.2 mg/dL 01/20/2025 4:51 AM EDT [facility] eGFRcr 57.7 mL/min/1.7 3m*2 01/20/2025 4:51 AM EDT [facility] Comment:Reported eGFRcr in m L/min/1.73m2 is based the CKD-EPI 2020 equation that does not use a race coefficient. Blood Venous blood specimen / Unknown Venipuncture / Unknown 01/20/2025 3:40 AM EDT 01/20/2025 3:57 AM EDT us Sachin Garza MD LAB BLOOD ORDERABLES Final R esult [facility] [address] [place] [address] * (ABNORMAL) CBC W/O Differential (01/20/2025 3:40 AM EDT) WBC Count 8.11 3.70 - 10.30 10*3/uL LAB HEMATOLOGY METHOD 01/20/2025 4:04 AM EDT [facility] RBC Count 3.64(L) 4.60 - 6.10 10*6/uL LAB HEMATOLOGY METHOD 01/20/2025 4:04 AM EDT [facility] HGB 10.7(L) 13.7 - 17.5 g/dL LAB HEMATOLOGY METHOD 01/20/2025 4:04 AM EDT [facility] HCT 34.5(L) 40.0 - 51.0 % LAB HEMATOLOGY METHOD 01/20/2025 4:04 AM EDT [facility] Platelet Count 399(H) 155 - 369 10*3/uL LAB HEMATOLOGY METHOD 01/20/2025 4:04 AM EDT [facility] MCV 95 79 - 98 fL LAB HEMATOLOGY METHOD 01/20/2025 4:04 AM EDT [facility] MCH 29.4 26.0 - 32.0 pg LAB HEMATOLOGY METHOD 01/20/2025 4:04 AM EDT [facility] MCHC 31.0 30.7 - 35.5 g/dL LAB HEMATOLOGY METHOD 01/20/2025 4:04 AM EDT [facility] RDW 13.1 11.5 - 14.5 % LAB HEMATOLOGY METHOD 01/20/2025 4:04 AM EDT [facility] MPV 9.5 8.8 - 12.5 fL LAB HEMATOLOGY METHOD 01/20/2025 4:04 AM EDT [facility] nRBC 0.0 <=0.0 per 100 WBCs LAB HEMATOLOGY METHOD 01/20/2025 4:04 AM EDT [facility] Blood Venous blood specimen / Unknown Venipuncture / Unknown 01/20/2025 3:40 AM EDT 01/20/2025 3:56 AM EDT us Sachin Garza MD LAB BLOOD ORDERABLES Final R esult Performing Organization Address City/[facility]/ZIP Co de Phone Number [facility] [address] [place] [address] * Vancomycin, random (01/19/2025 11:48 AM EDT) Vancomycin, Random, Plasma 22.9 ug/mL 01/19/2025 1:05 PM EDT [facility] Blood Venous blood specimen / Unknown Venipuncture / Unknown 01/19/2025 11:48 AM EDT 01/19/2025 11:50 AM EDT us Sachin Garza MD LAB BLOOD ORDERABLES Final R esult [facility] [address] [place] [address] * (ABNORMAL) Basic Metabolic Panel, Plasma (01/18/2025 11:54 PM EDT) Glucose, Plasma 134(H) 74 - 99 mg/dL 01/19/2025 12:45 AM EDT [facility] BUN, Plasma 24(H) 7 - 21 mg/dL 01/19/2025 12:45 AM EDT [facility] Creatinine, Plasma 1.34(H) 0.70 - 1.20 mg/dL 01/19/2025 12:45 AM EDT [facility] BUN/Creatinine Ratio 18 01/19/2025 12:45 AM EDT [facility] Sodium, Plasma 137 136 - 145 mmol/L 01/19/2025 12:45 AM EDT [facility] Potassium, Plasma 4.7 3.6 - 4.9 mmol/L 01/19/2025 12:45 AM EDT [facility] Chloride, Plasma 100 97 - 107 mmol/L 01/19/2025 12:45 AM EDT [facility] CO2, Plasma 24 22 - 29 mmol/L 01/19/2025 12:45 AM EDT [facility] Anion Gap 13 6 - 16 mmol/L 01/19/2025 12:45 AM EDT [facility] Total Calcium, Plasma 9.3 8.9 - 10.2 mg/dL 01/19/2025 12:45 AM EDT [facility] eGFRcr 70.8 mL/min/1.7 3m*2 01/19/2025 12:45 AM EDT [facility] Comment:Reported eGFRcr in m L/min/1.73m2 is based the CKD-EPI 2020 equation that does not use a race coefficient. Blood Venous blood specimen / Unknown Venipuncture / Unknown 01/18/2025 11:54 PM EDT 01/19/2025 12:16 AM EDT us Sachin Garza MD LAB BLOOD ORDERABLES Final R esult [facility] [address] [place] [address] * (ABNORMAL) CBC W/O Differential (01/18/2025 11:54 PM EDT) WBC Count 11.85(H) 3.70 - 10.30 10*3/uL LAB HEMATOLOGY METHOD 01/19/2025 12:20 AM EDT [facility] RBC Count 3.76(L) 4.60 - 6.10 10*6/uL LAB HEMATOLOGY METHOD 01/19/2025 12:20 AM EDT [facility] HGB 11.3(L) 13.7 - 17.5 g/dL LAB HEMATOLOGY METHOD 01/19/2025 12:20 AM EDT [facility] HCT 34.2(L) 40.0 - 51.0 % LAB HEMATOLOGY METHOD 01/19/2025 12:20 AM EDT [facility] Platelet Count 394(H) 155 - 369 10*3/uL LAB HEMATOLOGY METHOD 01/19/2025 12:20 AM EDT [facility] MCV 91 79 - 98 fL LAB HEMATOLOGY METHOD 01/19/2025 12:20 AM EDT [facility] MCH 30.1 26.0 - 32.0 pg LAB HEMATOLOGY METHOD 01/19/2025 12:20 AM EDT [facility] MCHC 33.0 30.7 - 35.5 g/dL LAB HEMATOLOGY METHOD 01/19/2025 12:20 AM EDT [facility] RDW 12.9 11.5 - 14.5 % LAB HEMATOLOGY METHOD 01/19/2025 12:20 AM EDT [facility] MPV 9.5 8.8 - 12.5 fL LAB HEMATOLOGY METHOD 01/19/2025 12:20 AM EDT [facility] nRBC 0.0 <=0.0 per 100 WBCs LAB HEMATOLOGY METHOD 01/19/2025 12:20 AM EDT [facility] Blood Venous blood specimen / Unknown Venipuncture / Unknown 01/18/2025 11:54 PM EDT 01/19/2025 12:13 AM EDT us Sachin Garza MD LAB BLOOD ORDERABLES Final R esult [facility] [address] [place] [address] * Fungal Culture, Sterile Body Fluid (NOT CSF) and SYEDA (01/18/2025 3:28 PM EDT) Culture No Fungal Growth at 3 Weeks 02/10/2025 8:37 AM EDT [facility] SYEDA No fungal elements seen 02/10/2025 8:37 AM EDT [facility] Joint Fluid Topography unknown / Unknown Non-blood Collection / Unknown 01/18/2025 3:28 PM EDT 01/18/2025 3:28 PM EDT Sachin Garza MD LAB MICROBIOLOGY - GENERAL O RDERABLES Final Result Performing Organization Address City/[facility]/ZIP Co de Phone Number [facility] [address] [place] [address] * Anaerobic Culture (01/18/2025 3:28 PM EDT) Culture No anaerobes isolated 01/23/2025 7:50 AM EDT [facility] Joint Fluid Topography unknown / Unknown Non-blood Collection / Unknown 01/18/2025 3:28 PM EDT 01/18/2025 3:28 PM EDT us Sachin Garza MD LAB MICROBIOLOGY - GENERAL O RDERABLES Final Result Performing Organization Address City/[facility] Co de Phone Number [facility] [address] [place] [address] * (ABNORMAL) Body Fluid Culture and Gram Stain (01/18/2025 3:28 PM EDT) Culture Heavy Growth 01/20/2025 8:34 AM EDT [facility] Culture Methicillin-Resista nt Staphylococcus aureus(AA) 01/20/2025 8:34 AM EDT [facility] Comment: For susceptibility results refer to: - [id number] The organism value for this result has been updated. These results have been appended to the previously preliminary verified report. Edited result: Previously reported as Staphylococcus aureus on 01/19/2025 at 0933 EDT. Staphylococcus aureus has been updated to reportable. Gram Stain Result Numerous Polymorphonuclear leukocytes 01/20/2025 8:34 AM EDT [facility] Gram Stain Result No organisms seen 01/20/2025 8:34 AM EDT [facility] Joint Fluid Topography unknown / Unknown Non-blood Collection / Unknown 01/18/2025 3:28 PM EDT 01/18/2025 3:28 PM EDT us Sachin Garza MD LAB MICROBIOLOGY - GENERAL O RDERABLES Final Result Performing Organization Address [facility] Co de Phone Number [facility] [address] [place] [address] * Body fluid, cytospin, pathologist interpretation (01/18/2025 3:01 PM EDT) Specimen Type Joint Fluid LAB HEMATOLOGY METHOD 01/20/2025 4:29 PM EDT [facility] Specimen Source, Body Fluid Knee, Left LAB HEMATOLOGY METHOD 01/20/2025 4:29 PM EDT [facility] Clinical Diagnosis, Body Fluid Left lower extremity cellulitis LAB HEMATOLOGY METHOD 01/20/2025 4:29 PM EDT [facility] Interpretation , Body Fluid Bloody specimen Acute and chronic inflammatory cells Correlation with microbiology studies recommended A resident was involved in the service. I attest I examined the relevant preparations for the specimens and confirmed the diagnosis or interpretation. 01/20/2025 4:29 PM EDT [facility] Pathologist Signature, Body Fluid 01/20/2025 4:29 PM EDT [facility] Comment:Reviewed by: Stephanie conti MD LAB CP ASR DISCLAIMER Yes 01/20/2025 4:29 PM EDT [facility] Joint Fluid Structure of left knee region / Unknown 01/18/2025 3:01 PM EDT 01/18/2025 3:28 PM EDT us Sachin Garza MD LAB BODY FLUIDS AND STOOLS O RDERABLES Final Result Performing Organization Address City/[facility]/ZIP Co de Phone Number [facility] [address] [place] [address] * Joint Fluid Crystals (01/18/2025 3:01 PM EDT) Crystals, Joint Fluid No Crystals Seen No Crystals Present 01/18/2025 5:28 PM EDT [facility] Joint Fluid Structure of left knee region / Unknown 01/18/2025 3:01 PM EDT 01/18/2025 3:28 PM EDT us Sachin Garza MD LAB BODY FLUIDS AND STOOLS O RDERABLES Final Result [facility] [address] [place] [address] * (ABNORMAL) Body Fluid Cell Count w/ Diff (01/18/2025 3:01 PM EDT) Color, Body fluid Red LAB HEMATOLOGY METHOD 01/18/2025 11:05 PM EDT [facility] Appearance, Body fluid Cloudy(A) LAB HEMATOLOGY METHOD 01/18/2025 11:05 PM EDT [facility] Volume, Body fluid 3.5 cc LAB HEMATOLOGY METHOD 01/18/2025 11:05 PM EDT [facility] Fluid Container Specimen received in EDTA tube LAB HEMATOLOGY METHOD 01/18/2025 11:05 PM EDT [facility] Red Blood Cell Count, Body fluid 299,000 uL LAB HEMATOLOGY METHOD 01/18/2025 11:05 PM EDT [facility] Total Nucleated Cell Count, Body fluid 873 uL LAB HEMATOLOGY METHOD 01/18/2025 11:05 PM EDT [facility] Neutrophils %, Body fluid 17 % LAB HEMATOLOGY METHOD 01/18/2025 11:05 PM EDT [facility] Lymphocytes %, Body fluid 55 % LAB HEMATOLOGY METHOD 01/18/2025 11:05 PM EDT [facility] Monocytes/Macro phages %, Body fluid 27 % LAB HEMATOLOGY METHOD 01/18/2025 11:05 PM EDT [facility] Eosinophils %, Body fluid 1 % LAB HEMATOLOGY METHOD 01/18/2025 11:05 PM EDT [facility] Lining/Mesothel ial Cells %, Body fluid 0 % LAB HEMATOLOGY METHOD 01/18/2025 11:05 PM EDT [facility] Neutrophils Absolute (PMN), Body fluid 148 uL LAB HEMATOLOGY METHOD 01/18/2025 11:05 PM EDT [facility] Lymphocytes Absolute, Body fluid 480 uL LAB HEMATOLOGY METHOD 01/18/2025 11:05 PM EDT [facility] Monocytes/Macro phages Absolute, Body fluid 236 uL LAB HEMATOLOGY METHOD 01/18/2025 11:05 PM EDT [facility] Eosinophils Absolute, Body fluid 9 uL LAB HEMATOLOGY METHOD 01/18/2025 11:05 PM EDT [facility] Basophils Absolute, Body fluid 0 uL LAB HEMATOLOGY METHOD 01/18/2025 11:05 PM EDT [facility] Lining/Mesothel ial Cells Absolute, Body fluid 0 uL LAB HEMATOLOGY METHOD 01/18/2025 11:05 PM EDT [facility] Comment, Body fluid None LAB HEMATOLOGY METHOD 01/18/2025 11:05 PM EDT [facility] Comment:This is an appended report. These results have been appended to a previously preliminary verified report. Basophils %, Body fluid 0 % LAB HEMATOLOGY METHOD 01/18/2025 11:05 PM EDT [facility] Joint Fluid Structure of left knee region / Unknown 01/18/2025 3:01 PM EDT 01/18/2025 3:28 PM EDT us Sachin Garza MD LAB BODY FLUIDS AND STOOLS ORDERABLES NO SPECIMEN TYPE/SOURCE Final Result [facility] [address] [place] [address] * Body Fluid Culture and Gram Stain (01/18/2025 12:17 PM EDT) Culture No growth at day 4 2024 11:06 AM EDT [facility] Gram Stain Result No polymorphonuclear leukocytes seen 01/21/2025 11:06 AM EDT [facility] Gram Stain Result No organisms seen 01/21/2025 11:06 AM EDT [facility] Joint Fluid Synovial fluid specimen / Unknown Non-blood Collection / Unknown 01/18/2025 12:17 PM EDT 01/18/2025 3:24 PM EDT Comment:Pre-op diagnosis: Cellulitis of left lower extremity [L03.116] us Dwaine Das DO LAB MICROBIOLOGY - GENERAL ORDERABLES Final Result [facility] [address] [place] [address] * Joint Infection Panel by PCR (01/18/2025 12:17 PM EDT) Anaerococcus prevotii/vaginalis PCR Result Not Detected Not Detected 01/18/2025 5:28 PM EDT [facility] Clostridium perfringens PCR Result Not Detected Not Detected 01/18/2025 5:28 PM EDT [facility] Cutibacterium avidum/granulosum PCR Result Not Detected Not Detected 01/18/2025 5:28 PM EDT [facility] Enterococcus faecalis PCR Result Not Detected Not Detected 01/18/2025 5:28 PM EDT [facility] Enterococcus faecium PCR Result Not Detected Not Detected 01/18/2025 5:28 PM EDT [facility] Finegoldia magna PCR Result Not Detected Not Detected 01/18/2025 5:28 PM EDT [facility] Parvimonas micra PCR Result Not Detected Not Detected 01/18/2025 5:28 PM EDT [facility] Peptoniphilus PCR Result Not Detected Not Detected 01/18/2025 5:28 PM EDT [facility] Peptostreptococcus anaerobius PCR Result Not Detected Not Detected 01/18/2025 5:28 PM EDT [facility] Staphylococcus aureus PCR Result Not Detected Not Detected 01/18/2025 5:28 PM EDT [facility] Staphylococcus lugdunensis PCR Result Not Detected Not Detected 01/18/2025 5:28 PM EDT [facility] Streptococcus spp PCR Result Not Detected Not Detected 01/18/2025 5:28 PM EDT [facility] Streptococcus agalactiae PCR Result Not Detected Not Detected 01/18/2025 5:28 PM EDT [facility] Streptococcus pneumoniae PCR Result Not Detected Not Detected 01/18/2025 5:28 PM EDT [facility] Streptococcus pyogenes PCR Result Not Detected Not Detected 01/18/2025 5:28 PM EDT [facility] Bacteroides fragilis PCR Result Not Detected Not Detected 01/18/2025 5:28 PM EDT [facility] Citrobacter PCR Result Not Detected Not Detected 01/18/2025 5:28 PM EDT [facility] Enterobacter cloacae complex PCR Result Not Detected Not Detected 01/18/2025 5:28 PM EDT [facility] Escherichia coli PCR Result Not Detected Not Detected 01/18/2025 5:28 PM EDT [facility] Haemophilus influenzae PCR Result Not Detected Not Detected 01/18/2025 5:28 PM EDT [facility] Kingella kingae PCR Result Not Detected Not Detected 01/18/2025 5:28 PM EDT [facility] Klebsiella aerogenes PCR Result Not Detected Not Detected 01/18/2025 5:28 PM EDT [facility] Klebsiella pneumoniae group PCR Result Not Detected Not Detected 01/18/2025 5:28 PM EDT [facility] Morganella morganii PCR Result Not Detected Not Detected 01/18/2025 5:28 PM EDT [facility] Neisseria gonorrhoeae PCR Result Not Detected Not Detected 01/18/2025 5:28 PM EDT [facility] Proteus spp PCR Result Not Detected Not Detected 01/18/2025 5:28 PM EDT [facility] Pseudomonas aeruginosa PCR Result Not Detected Not Detected 01/18/2025 5:28 PM EDT [facility] Salmonella spp PCR Result Not Detected Not Detected 01/18/2025 5:28 PM EDT [facility] Serratia marcescens PCR Result Not Detected Not Detected 01/18/2025 5:28 PM EDT [facility] Nelda PCR Result Not Detected Not Detected 01/18/2025 5:28 PM EDT [facility] Nelda albicans PCR Result Not Detected Not Detected 01/18/2025 5:28 PM EDT [facility] CTXM PCR Result Not Detected Not Detected 01/18/2025 5:28 PM EDT [facility] IMP PCR Result Not Detected Not Detected 01/18/2025 5:28 PM EDT [facility] KPC PCR Result Not Detected Not Detected 01/18/2025 5:28 PM EDT [facility] mecA/C and MREJ (MRSA) PCR Result Not Detected Not Detected 01/18/2025 5:28 PM EDT [facility] NDM PCR Result Not Detected Not Detected 01/18/2025 5:28 PM EDT [facility] OXA-48-like PCR Result Not Detected Not Detected 01/18/2025 5:28 PM EDT [facility] Jarret/B PCR Result Not Detected Not Detected 01/18/2025 5:28 PM EDT [facility] VIM PCR Result Not Detected Not Detected 01/18/2025 5:28 PM EDT [facility] Joint Fluid Synovial fluid specimen / Unknown Non-blood Collection / Unknown 01/18/2025 12:17 PM EDT 01/18/2025 3:24 PM EDT Narrative [facility] - 01/18/2025 5:28 PM EDT [...] MICROBIOLOGY - GENERAL O RDERABLES Final Result [facility] [address] [place] [address] * (ABNORMAL) Tissue Culture and Gram Stain (01/18/2025 10:00 AM EDT) Culture Heavy Growth 01/20/2025 8:34 AM EDT [facility] Culture Methicillin-Resista nt Staphylococcus aureus(AA) JOVANI 01/20/2025 8:34 AM EDT [facility] Comment: The organism value for this result has been updated. These results have been appended to the previously preliminary verified report. Edited result: Previously reported as Staphylococcus aureus on 01/19/2025 at 0914 EDT. Staphylococcus aureus has been updated to reportable. Gram Stain Result Numerous Polymorphonuclear leukocytes(A) 01/20/2025 8:34 AM EDT [facility] Gram Stain Result Rare Gram positive cocci in clusters(A) 01/20/2025 8:34 AM EDT [facility] Tissue Topography unknown / Unknown [...] aureus Vancomycin JOVANI 1 ug/ml: Susceptible Dwaine Das DO LAB MICROBIOLOGY - GENERAL ORDERABLES Final Result [facility] [address] [place] [address] * Anaerobic Culture (01/18/2025 10:00 AM EDT) Culture No anaerobes isolated 01/23/2025 7:50 AM EDT [facility] Tissue Topography unknown / Unknown 01/18/2025 10:00 AM EDT 01/18/2025 3:26 PM EDT Comment:Pre-op diagnosis: Cellulitis of left lower extremity [L03.116] us Dwaine Das DO LAB MICROBIOLOGY - GENERAL ORDERABLES Final Result Performing Organization Address City/[facility]/ZIP Co de Phone Number [facility] [address] [place] [address] * Body fluid, cytospin, pathologist interpretation (01/18/2025 9:57 AM EDT) Specimen Type Cyst Fluid LAB HEMATOLOGY METHOD 01/20/2025 4:28 PM EDT [facility] Specimen Source, Body Fluid Other (specify site) LAB HEMATOLOGY METHOD 01/20/2025 4:28 PM EDT [facility] Clinical Diagnosis, Body Fluid Left lower extremity cyst fluid LAB HEMATOLOGY METHOD 01/20/2025 4:28 PM EDT [facility] Interpretation , Body Fluid No evidence of malignancy Bloody specimen Acute inflammatory cells Correlation with microbiology studies recommended A resident was involved in the service. I attest I examined the relevant preparations for the specimens and confirmed the diagnosis or interpretation. 01/20/2025 4:28 PM EDT [facility] Pathologist Signature, Body Fluid 01/20/2025 4:28 PM EDT [facility] Comment:Reviewed by: Stephanie conti MD LAB CP ASR DISCLAIMER Yes 01/20/2025 4:28 PM EDT [facility] Cyst Fluid Topography unknown / Unknown 01/18/2025 9:57 AM EDT 01/18/2025 3:19 PM EDT us Dwaine Das DO LAB BODY FLUIDS AND STOOLS ORDERABLES Final Result Performing Organization Address City/[facility]/ZIP Co de Phone Number [facility] [address] [place] [address] * (ABNORMAL) Body Fluid Cell Count w/ Diff (01/18/2025 9:57 AM EDT) Color, Body fluid Red LAB HEMATOLOGY METHOD 01/18/2025 7:13 PM EDT [facility] Appearance, Body fluid Cloudy(A) LAB HEMATOLOGY METHOD 01/18/2025 7:13 PM EDT [facility] Volume, Body fluid 10.0 cc LAB HEMATOLOGY METHOD 01/18/2025 7:13 PM EDT [facility] Fluid Container Specimen received in miscellaneous container LAB HEMATOLOGY METHOD 01/18/2025 7:13 PM EDT [facility] Red Blood Cell Count, Body fluid 240,000 uL LAB HEMATOLOGY METHOD 01/18/2025 7:13 PM EDT [facility] Comment:Clot present, may af fect results. Test performed by manual method. Total Nucleated Cell Count, Body fluid 83,500 uL LAB HEMATOLOGY METHOD 01/18/2025 7:13 PM EDT [facility] Comment:Clot present, may af fect results. Test performed by manual method. Neutrophils %, Body fluid 98 % LAB HEMATOLOGY METHOD 01/18/2025 7:13 PM EDT [facility] Lymphocytes %, Body fluid 2 % LAB HEMATOLOGY METHOD 01/18/2025 7:13 PM EDT [facility] Monocytes/Macr ophages %, Body fluid 0 % LAB HEMATOLOGY METHOD 01/18/2025 7:13 PM EDT [facility] Eosinophils %, Body fluid 0 % LAB HEMATOLOGY METHOD 01/18/2025 7:13 PM EDT [facility] Lining/Mesothe lial Cells %, Body fluid 0 % LAB HEMATOLOGY METHOD 01/18/2025 7:13 PM EDT [facility] Neutrophils Absolute (PMN), Body fluid 81,830 uL LAB HEMATOLOGY METHOD 01/18/2025 7:13 PM EDT [facility] Lymphocytes Absolute, Body fluid 1,670 uL LAB HEMATOLOGY METHOD 01/18/2025 7:13 PM EDT [facility] Monocytes/Macr ophages Absolute, Body fluid 0 uL LAB HEMATOLOGY METHOD 01/18/2025 7:13 PM EDT [facility] Eosinophils Absolute, Body fluid 0 uL LAB HEMATOLOGY METHOD 01/18/2025 7:13 PM EDT [facility] Basophils Absolute, Body fluid 0 uL LAB HEMATOLOGY METHOD 01/18/2025 7:13 PM EDT [facility] Lining/Mesothe lial Cells Absolute, Body fluid 0 uL LAB HEMATOLOGY METHOD 01/18/2025 7:13 PM EDT [facility] Comment, Body fluid Bacteria seen. LAB HEMATOLOGY METHOD 01/18/2025 7:13 PM EDT [facility] Basophils %, Body fluid 0 % LAB HEMATOLOGY METHOD 01/18/2025 7:13 PM EDT [facility] Cyst Fluid Topography unknown / Unknown 01/18/2025 9:57 AM EDT 01/18/2025 3:19 PM EDT Comment:Pre-op diagnosis: Cellulitis of left lower extremity [L03.116] us Dwaine Das DO LAB BODY FLUIDS AND STOOLS ORDERABLES NO SPECIMEN TYPE/SOURCE Final Result Performing Organization Address City/[facility]/ZIP Co de Phone Number [facility] [address] [place] [address] * Fungal Culture, Sterile Body Fluid (NOT CSF) and SYEDA (01/18/2025 9:57 AM EDT) Culture No Fungal Growth at 3 Weeks 02/10/2025 8:37 AM EDT [facility] SYEDA No fungal elements seen 02/10/2025 8:37 AM EDT [facility] Cyst Fluid Topography unknown / Unknown 01/18/2025 9:57 AM EDT 01/18/2025 3:26 PM EDT Comment:Pre-op diagnosis: Cellulitis of left lower extremity [L03.116] us Dwaine [email or web address] LAB MICROBIOLOGY - GENERAL ORDERABLES Final Result [facility] [address] [place] [address] * (ABNORMAL) Body Fluid Culture and Gram Stain (01/18/2025 9:57 AM EDT) Culture Heavy Growth 01/20/2025 8:34 AM EDT [facility] Culture Methicillin-Resista nt Staphylococcus aureus(AA) 01/20/2025 8:34 AM EDT [facility] Comment: For susceptibility results refer to: - [id number] The organism value for this result has been updated. These results have been appended to the previously preliminary verified report. Edited result: Previously reported as Staphylococcus aureus on 01/19/2025 at 0916 EDT. Staphylococcus aureus has been updated to reportable. Gram Stain Result Numerous Polymorphonuclear leukocytes(A) 01/20/2025 8:34 AM EDT [facility] Gram Stain Result Moderate Gram positive cocci in clusters(A) 01/20/2025 8:34 AM EDT [facility] Cyst Fluid Topography unknown / Unknown 01/18/2025 9:57 AM EDT 01/18/2025 3:26 PM EDT Comment:Pre-op diagnosis: Cellulitis of left lower extremity [L03.116] [email or web address] LAB MICROBIOLOGY - GENERAL ORDERABLES Final Result Performing Organization Address City/[facility] Co de Phone Number [facility] [address] [place] [address] * Anaerobic Culture (01/18/2025 9:57 AM EDT) Culture No anaerobes isolated 01/23/2025 7:50 AM EDT [facility] Cyst Fluid Topography unknown / Unknown 01/18/2025 9:57 AM EDT 01/18/2025 3:26 PM EDT Comment:Pre-op diagnosis: Cellulitis of left lower extremity [L03.116] [facility] MICROBIOLOGY - GENERAL ORDERABLES Final Result [facility] [address] [place] [address] * Methicillin Resistant Staphylococcus aureus (MRSA) by PCR (01/18/2025 7:43 AM EDT) Methicillin Resistant Staphylococcus aureus (MRSA) by PCR Not Detected Not Detected 01/18/2025 9:36 AM EDT [facility] Swab Both anterior nares / Unknown Non-blood Collection / Unknown 01/18/2025 7:43 AM EDT 01/18/2025 8:19 AM EDT Narrative [facility] - 01/18/2025 9:36 AM EDT [...] MICROBIOLOGY - GENERAL O RDERABLES Final Result [facility] [address] [place] [address] * (ABNORMAL) Basic metabolic panel (01/18/2025 12:18 AM EDT) Glucose, Plasma 105(H) 74 - 99 mg/dL 01/18/2025 1:30 AM EDT [facility] BUN, Plasma 14 7 - 21 mg/dL 01/18/2025 1:30 AM EDT [facility] Creatinine, Plasma 0.80 0.70 - 1.20 mg/dL 01/18/2025 1:30 AM EDT [facility] BUN/Creatinine Ratio 18 01/18/2025 1:30 AM EDT [facility] Sodium, Plasma 137 136 - 145 mmol/L 01/18/2025 1:30 AM EDT [facility] Potassium, Plasma 4.3 3.6 - 4.9 mmol/L 01/18/2025 1:30 AM EDT [facility] Chloride, Plasma 100 97 - 107 mmol/L 01/18/2025 1:30 AM EDT [facility] CO2, Plasma 26 22 - 29 mmol/L 01/18/2025 1:30 AM EDT [facility] Anion Gap 11 6 - 16 mmol/L 01/18/2025 1:30 AM EDT [facility] Total Calcium, Plasma 9.0 8.9 - 10.2 mg/dL 01/18/2025 1:30 AM EDT [facility] eGFRcr 118.4 mL/min/1.7 3m*2 01/18/2025 1:30 AM EDT [facility] Comment:Reported eGFRcr in m L/min/1.73m2 is based the CKD-EPI 2020 equation that does not use a race coefficient. Blood Venous blood specimen / Unknown Venipuncture / Unknown 01/18/2025 12:18 AM EDT 01/18/2025 12:27 AM EDT us Sachin Garza MD LAB BLOOD ORDERABLES Final R esult [facility] [address] [place] [address] * (ABNORMAL) CBC W/O Differential (01/18/2025 12:18 AM EDT) WBC Count 8.77 3.70 - 10.30 10*3/uL LAB HEMATOLOGY METHOD 01/18/2025 12:36 AM EDT [facility] RBC Count 3.94(L) 4.60 - 6.10 10*6/uL LAB HEMATOLOGY METHOD 01/18/2025 12:36 AM EDT [facility] HGB 11.7(L) 13.7 - 17.5 g/dL LAB HEMATOLOGY METHOD 01/18/2025 12:36 AM EDT [facility] HCT 37.1(L) 40.0 - 51.0 % LAB HEMATOLOGY METHOD 01/18/2025 12:36 AM EDT [facility] Platelet Count 347 155 - 369 10*3/uL LAB HEMATOLOGY METHOD 01/18/2025 12:36 AM EDT [facility] MCV 94 79 - 98 fL LAB HEMATOLOGY METHOD 01/18/2025 12:36 AM EDT [facility] MCH 29.7 26.0 - 32.0 pg LAB HEMATOLOGY METHOD 01/18/2025 12:36 AM EDT [facility] MCHC 31.5 30.7 - 35.5 g/dL LAB HEMATOLOGY METHOD 01/18/2025 12:36 AM EDT [facility] RDW 13.1 11.5 - 14.5 % LAB HEMATOLOGY METHOD 01/18/2025 12:36 AM EDT [facility] MPV 9.5 8.8 - 12.5 fL LAB HEMATOLOGY METHOD 01/18/2025 12:36 AM EDT [facility] nRBC 0.0 <=0.0 per 100 WBCs LAB HEMATOLOGY METHOD 01/18/2025 12:36 AM EDT [facility] Blood Venous blood specimen / Unknown Venipuncture / Unknown 01/18/2025 12:18 AM EDT 01/18/2025 12:29 AM EDT us Sachin Garza MD LAB BLOOD ORDERABLES Final R esult [facility] [address] [place] [address] * Vancomycin, Peak, Plasma Please draw ~2 hours after 1000 dose of vancomycin on Monday finishes infusing. Consider obtaining level via peripheral stick. If peripheral stick is not feasible, please ensure that line is flushed well prior to drawing l... (01/17/2025 2:03 PM EDT) [facility] Vancomycin, Peak, Plasma 22.0 20.0 - 40.0 ug/mL 01/17/2025 3:01 PM EDT [facility] Blood Venous blood specimen / Unknown Venipuncture / Unknown 01/17/2025 2:03 PM EDT 01/17/2025 2:32 PM EDT Narrative [facility] - 01/17/2025 3:01 PM EDT Therapeutic Peak level: 20-40ug/mL Supra-therapeutic Peak level: >40 ug/mL us Sachin Garza MD LAB BLOOD ORDERABLES Final R esult [facility] [address] [place] [address] * Vancomycin, Trough, Plasma Please draw ~30 minutes prior to dose due at 1000 on Monday. Please do NOT hold dose awaiting level to return. Consider obtaining level via peripheral stick. If peripheral stick is not feasible, please ensure that line ... (01/17/2025 9:53 AM EDT) Vancomycin, Trough, Plasma 12.5 10.0 - 20.0 ug/mL 01/17/2025 10:24 AM EDT [facility] Blood Venous blood specimen / Unknown Venipuncture / Unknown 01/17/2025 9:53 AM EDT 01/17/2025 9:57 AM EDT Narrative [facility] - 01/17/2025 10:24 AM EDT Therapeutic Trough level: 10-20ug/mL Supra-therapeutic Trough level: >20 ug/mL us Sachin Garza MD LAB BLOOD ORDERABLES Final R esult [facility] [address] [place] [address] * (ABNORMAL) Basic metabolic panel (01/17/2025 4:05 AM EDT) Glucose, Plasma 117(H) 74 - 99 mg/dL 01/17/2025 5:16 AM EDT [facility] BUN, Plasma 13 7 - 21 mg/dL 01/17/2025 5:16 AM EDT [facility] Creatinine, Plasma 0.75 0.70 - 1.20 mg/dL 01/17/2025 5:16 AM EDT [facility] BUN/Creatinine Ratio 17 01/17/2025 5:16 AM EDT [facility] Sodium, Plasma 135(L) 136 - 145 mmol/L 01/17/2025 5:16 AM EDT [facility] Potassium, Plasma 4.5 3.6 - 4.9 mmol/L 01/17/2025 5:16 AM EDT [facility] Chloride, Plasma 100 97 - 107 mmol/L 01/17/2025 5:16 AM EDT [facility] CO2, Plasma 25 22 - 29 mmol/L 01/17/2025 5:16 AM EDT [facility] Anion Gap 10 6 - 16 mmol/L 01/17/2025 5:16 AM EDT [facility] Total Calcium, Plasma 9.1 8.9 - 10.2 mg/dL 01/17/2025 5:16 AM EDT [facility] eGFRcr 120.7 mL/min/1.7 3m*2 01/17/2025 5:16 AM EDT [facility] Comment:Reported eGFRcr in m L/min/1.73m2 is based the CKD-EPI 2020 equation that does not use a race coefficient. Blood Venous blood specimen / Unknown Venipuncture / Unknown 01/17/2025 4:05 AM EDT 01/17/2025 4:35 AM EDT us Sachin Garza MD LAB BLOOD ORDERABLES Final R esult [facility] [address] [place] [address] * [place] Extremity Limited MSK or Soft [...] signing this report, I, the attending physician, [email or web address] I have personally reviewed the images/data for [...] - 99 mg/dL 01/16/2025 5:15 AM EDT [facility] BUN, Plasma 12 7 - 21 mg/dL 01/16/2025 5:15 AM EDT [facility] Creatinine, Plasma 0.66(L) 0.70 - 1.20 mg/dL 01/16/2025 5:15 AM EDT [facility] BUN/Creatinine Ratio 18 01/16/2025 5:15 AM EDT [facility] Sodium, Plasma 136 136 - 145 mmol/L 01/16/2025 5:15 AM EDT [facility] Potassium, Plasma 4.5 3.6 - 4.9 mmol/L 01/16/2025 5:15 AM EDT [facility] Chloride, Plasma 100 97 - 107 mmol/L 01/16/2025 5:15 AM EDT [facility] CO2, Plasma 26 22 - 29 mmol/L 01/16/2025 5:15 AM EDT [facility] Anion Gap 10 6 - 16 mmol/L 01/16/2025 5:15 AM EDT [facility] Total Calcium, Plasma 8.8(L) 8.9 - 10.2 mg/dL 01/16/2025 5:15 AM EDT [facility] eGFRcr 125.4 mL/min/1.7 3m*2 01/16/2025 5:15 AM EDT [facility] Comment:Reported eGFRcr in m L/min/1.73m2 is based the CKD-EPI 2020 equation that does not use a race coefficient. Blood Venous blood specimen / Unknown Venipuncture / Unknown 01/16/2025 4:31 AM EDT 01/16/2025 4:46 AM EDT Jeffrey Matute MD LAB BLOOD ORDERABLES Final Re sult [facility] [address] [place] [address] * Prothrombin Time/INR (01/16/2025 4:31 AM EDT) Prothrombin Time 12.9 12.0 - 14.3 sec 01/16/2025 4:46 AM EDT [facility] INR 1.0 0.9 - 1.1 01/16/2025 4:46 AM EDT [facility] Blood Venous blood specimen / Unknown Venipuncture / Unknown 01/16/2025 4:31 AM EDT 01/16/2025 4:33 AM EDT Narrative [facility] - 01/16/2025 4:46 AM EDT OPTIMAL INR RANGES FOR PATIENT ON ORAL ANTICOAGULANT THERAPY Prevention of venous thromboembolism INR 2.0 to 3.0 In patients with heart disease: Atrial fibrillation INR 2.0 to 3.0 Valvular heart disease INR 2.0 to 3.0 Tissue heart valves INR 2.0 to 3.0 Mechanical prosthetic valves INR 2.5 to 3.5 Prevention of recurrent FL INR 2.5 to 3.5 us Jeffrey Matute MD LAB BLOOD ORDERABLES Final Re sult [facility] [address] [place] [address] * (ABNORMAL) CBC W/O Differential (01/16/2025 4:31 AM EDT) WBC Count 17.78(H) 3.70 - 10.30 10*3/uL LAB HEMATOLOGY METHOD 01/16/2025 4:36 AM EDT [facility] RBC Count 4.14(L) 4.60 - 6.10 10*6/uL LAB HEMATOLOGY METHOD 01/16/2025 4:36 AM EDT [facility] HGB 12.4(L) 13.7 - 17.5 g/dL LAB HEMATOLOGY METHOD 01/16/2025 4:36 AM EDT [facility] HCT 37.6(L) 40.0 - 51.0 % LAB HEMATOLOGY METHOD 01/16/2025 4:36 AM EDT [facility] Platelet Count 359 155 - 369 10*3/uL LAB HEMATOLOGY METHOD 01/16/2025 4:36 AM EDT [facility] MCV 91 79 - 98 fL LAB HEMATOLOGY METHOD 01/16/2025 4:36 AM EDT [facility] MCH 30.0 26.0 - 32.0 pg LAB HEMATOLOGY METHOD 01/16/2025 4:36 AM EDT [facility] MCHC 33.0 30.7 - 35.5 g/dL LAB HEMATOLOGY METHOD 01/16/2025 4:36 AM EDT [facility] RDW 13.2 11.5 - 14.5 % LAB HEMATOLOGY METHOD 01/16/2025 4:36 AM EDT [facility] MPV 9.3 8.8 - 12.5 fL LAB HEMATOLOGY METHOD 01/16/2025 4:36 AM EDT [facility] nRBC 0.0 <=0.0 per 100 WBCs LAB HEMATOLOGY METHOD 01/16/2025 4:36 AM EDT [facility] Blood Venous blood specimen / Unknown Venipuncture / Unknown 01/16/2025 4:31 AM EDT 01/16/2025 4:33 AM EDT us Jeffrey Matute MD LAB BLOOD ORDERABLES Final Re sult [facility] [address] [place] [address] * CT Tibia Fibula Left w IV [...] at day 5 01/21/2025 2:02 AM EDT [facility] Blood Venous blood specimen / Unknown Venipuncture / Unknown 01/16/2025 12:24 AM EDT 01/16/2025 1:12 AM EDT Narrative [facility] - 01/21/2025 2:02 AM EDT Low blood volume submitted, results may be compromised Gus Vigil APRN LAB MICROBIOLOGY - GENER AL ORDERABLES Final Result [facility] [address] [place] [address] * XR Chest 1 View (01/15/2025 11:21 [...] Rogers MD on 01/15/2025 11:40 PM us Gus Vigil WELDER TECH IMG XR PROCEDURES Final Result * XR [...] MD on 01/15/2025 11:40 PM Gus Vigil WELDER TECH IMG XR PROCEDURES Final Result * Type [...] ORDERA BLES Final Result Performing Organization Address City/[facility] Co de Phone Number BLOOD BANK [address] [place] [address], [place] * ECG Adult (01/15/2025 10:46 PM EDT) EKG DIAGNOSIS CLASS Normal MUSE ECG Ventricular Rate 92 BPM MUSE ECG Atrial Rate 92 BPM MUSE ECG IL Interval 122 ms MUSE ECG QRSD Interval 102 ms MUSE ECG QT Interval 350 ms MUSE ECG QTC Interval 432 ms MUSE ECG P Savage 56 degrees MUSE ECG R Savage 44 degrees MUSE ECG T Wave Savage 57 degrees MUSE ECG Diagnosis Normal sinus rhythm MUSE ECG Diagnosis Normal ECG MUSE ECG Diagnosis MUSE ECG Diagnosis Confirmed by Richard Mccracken ([id number]) on 01/16/2025 8:55:10 PM MUSE ECG 01/15/2025 10:4 6 PM EDT 01/16/2025 8:55 PM EDT Ye Navarro MD ECG ORDERABLES Final Resu lt Performing Organization Address City/[facility]/ZIP Co de Phone Number MUSE ECG * Blood Culture (Aerobic/Anaerobet Set) (01/15/2025 10:11 PM EDT) Culture No growth at day 5 01/20/2025 11:01 PM EDT [facility] Blood Structure of antecubital vein / Unknown Venipuncture / Unknown 01/15/2025 10:11 PM EDT 01/15/2025 10:19 PM EDT Narrative [facility] - 01/20/2025 11:01 PM EDT Low blood volume submitted, results may be compromised [facility] Rodger Vigil WELDER TECH LAB MICROBIOLOGY - GENER AL ORDERABLES Final Result Performing Organization Address City/[facility]/ZIP Co de Phone Number [facility] [address] [place] [address] * (ABNORMAL) Sed rate, automated (01/15/2025 10:11 PM EDT) Sedimentation Rate 46(H) <15 mm/hr 2024 10:34 PM EDT [facility] Blood Venous blood specimen / Unknown Venipuncture / Unknown 01/15/2025 10:11 PM EDT 01/15/2025 10:12 PM EDT [facility] BLOOD ORDERABLES Fin al Result Performing Organization Address [facility] Co de Phone Number [facility] [address] [place] [address] * (ABNORMAL) C-Reactive protein (01/15/2025 10:11 PM EDT) CRP, Plasma 91.9(H) <=8.0 mg/L 01/15/2025 10:32 PM EDT [facility] Blood Venous blood specimen / Unknown Venipuncture / Unknown 01/15/2025 10:11 PM EDT 01/15/2025 10:12 PM EDT Narrative [facility] - 01/15/2025 10:32 PM EDT This CRP test is appropriate for assessment of infection, systemic inflammation and/or tissue injury. To assess cardiovascular disease risk order high sensitivity CRP (CRPH). [facility] [place]ger Vigil WELDER TECH LAB BLOOD ORDERABLES Fin al Result Performing Organization Address City/[facility]/ZIP Co de Phone Number [facility] [address] [place] [address] * (ABNORMAL) Blood gas panel, venous (01/15/2025 10:11 PM EDT) pH, Venous 7.39 7.32 - 7.43 LAB HEMATOLOGY METHOD 01/15/2025 10:14 PM EDT [facility] pCO2, Venous 47 40 - 55 mmHg LAB HEMATOLOGY METHOD 01/15/2025 10:14 PM EDT [facility] pO2, Venous 34 25 - 40 mmHg LAB HEMATOLOGY METHOD 01/15/2025 10:14 PM EDT [facility] SO2, Measured, Venous 68 65 - 80 % LAB HEMATOLOGY METHOD 01/15/2025 10:14 PM EDT [facility] Base Excess, Venous 2.8 -2.0 - 3.0 mmol/L LAB HEMATOLOGY METHOD 01/15/2025 10:14 PM EDT [facility] Bicarbonate, Calculated, Venous 29(H) 22 - 26 mmol/L LAB HEMATOLOGY METHOD 01/15/2025 10:14 PM EDT [facility] Hematocrit, Whole Blood 40.4 40.0 - 51.0 % LAB HEMATOLOGY METHOD 01/15/2025 10:14 PM EDT [facility] Sodium, Whole Blood 135(L) 136 - 145 mmol/L LAB HEMATOLOGY METHOD 01/15/2025 10:14 PM EDT [facility] Potassium, Whole Blood 4.3 3.6 - 4.9 mmol/L LAB HEMATOLOGY METHOD 01/15/2025 10:14 PM EDT [facility] Chloride, Whole Blood 99 97 - 107 mmol/L LAB HEMATOLOGY METHOD 01/15/2025 10:14 PM EDT [facility] Glucose, Whole Blood 110(H) 74 - 99 mg/dL LAB HEMATOLOGY METHOD 01/15/2025 10:14 PM EDT [facility] Lactate, Venous, Whole Blood 1.1 0.5 - 2.2 mmol/L LAB HEMATOLOGY METHOD 01/15/2025 10:14 PM EDT [facility] Ionized Calcium, Whole Blood 4.6 4.6 - 5.1 mg/dL LAB HEMATOLOGY METHOD 01/15/2025 10:14 PM EDT [facility] Blood Venous blood specimen / Unknown Venipuncture / Unknown 01/15/2025 10:11 PM EDT 01/15/2025 10:12 PM EDT Gus Vigil APRN LAB BLOOD ORDERABLES Fin al Result [facility] [address] [place] [address] * (ABNORMAL) CMP (01/15/2025 10:11 PM EDT) Glucose, Plasma 116(H) 74 - 99 mg/dL 01/15/2025 10:32 PM EDT [facility] BUN, Plasma 14 7 - 21 mg/dL 01/15/2025 10:32 PM EDT [facility] Creatinine, Plasma 0.78 0.70 - 1.20 mg/dL 01/15/2025 10:32 PM EDT [facility] BUN/Creatinine Ratio 18 01/15/2025 10:32 PM EDT [facility] Sodium, Plasma 134(L) 136 - 145 mmol/L 01/15/2025 10:32 PM EDT [facility] Potassium, Plasma 4.6 3.6 - 4.9 mmol/L 01/15/2025 10:32 PM EDT [facility] Chloride, Plasma 97 97 - 107 mmol/L 01/15/2025 10:32 PM EDT [facility] CO2, Plasma 24 22 - 29 mmol/L 01/15/2025 10:32 PM EDT [facility] Anion Gap 13 6 - 16 mmol/L 01/15/2025 10:32 PM EDT [facility] Total Calcium, Plasma 8.7(L) 8.9 - 10.2 mg/dL 01/15/2025 10:32 PM EDT [facility] Total Protein 6.5 6.3 - 7.9 g/dL 01/15/2025 10:32 PM EDT [facility] Albumin, Plasma 3.7 3.5 - 5.2 g/dL 01/15/2025 10:32 PM EDT [facility] AST, Plasma 23 10 - 50 U/L 01/15/2025 10:32 PM EDT [facility] ALT, Plasma 52(H) 10 - 50 U/L 01/15/2025 10:32 PM EDT [facility] Alkaline Phosphatase, Plasma 124(H) 40 - 115 U/L 01/15/2025 10:32 PM EDT [facility] Total Bilirubin, Plasma 0.3 0.2 - 1.1 mg/dL 01/15/2025 10:32 PM EDT [facility] eGFRcr 119.3 mL/min/1.7 3m*2 01/15/2025 10:32 PM EDT [facility] Comment:Reported eGFRcr in m L/min/1.73m2 is based the CKD-EPI 2020 equation that does not use a race coefficient. Blood Venous blood specimen / Unknown Venipuncture / Unknown 01/15/2025 10:11 PM EDT 01/15/2025 10:12 PM EDT [facility] APRN LAB BLOOD ORDERABLES Fin al Result Performing Organization Address City/[facility] Co de Phone Number [facility] [address] [place] [address] * PT-INR (01/15/2025 10:11 PM EDT) Prothrombin Time 12.5 12.0 - 14.3 sec 01/15/2025 10:28 PM EDT [facility] INR 1.0 0.9 - 1.1 01/15/2025 10:28 PM EDT [facility] Blood Venous blood specimen / Unknown Venipuncture / Unknown 01/15/2025 10:11 PM EDT 01/15/2025 10:12 PM EDT Narrative [facility] - 01/15/2025 10:28 PM EDT OPTIMAL INR RANGES FOR PATIENT ON ORAL ANTICOAGULANT THERAPY Prevention of venous thromboembolism INR 2.0 to 3.0 In patients with heart disease: Atrial fibrillation INR 2.0 to 3.0 Valvular heart disease INR 2.0 to 3.0 Tissue heart valves INR 2.0 to 3.0 Mechanical prosthetic valves INR 2.5 to 3.5 Prevention of recurrent FL INR 2.5 to 3.5 [facility] APRN LAB BLOOD ORDERABLES Fin al Result Performing Organization Address City/[facility]/ZIP Co de Phone Number [facility] [address] [place] [address] * (ABNORMAL) CBC w/diff (01/15/2025 10:11 PM EDT) WBC Count 19.24(H) 3.70 - 10.30 10*3/uL LAB HEMATOLOGY METHOD 01/15/2025 10:14 PM EDT [facility] RBC Count 4.33(L) 4.60 - 6.10 10*6/uL LAB HEMATOLOGY METHOD 01/15/2025 10:14 PM EDT [facility] HGB 13.0(L) 13.7 - 17.5 g/dL LAB HEMATOLOGY METHOD 01/15/2025 10:14 PM EDT [facility] HCT 39.3(L) 40.0 - 51.0 % LAB HEMATOLOGY METHOD 01/15/2025 10:14 PM EDT [facility] Platelet Count 383(H) 155 - 369 10*3/uL LAB HEMATOLOGY METHOD 01/15/2025 10:14 PM EDT [facility] MCV 91 79 - 98 fL LAB HEMATOLOGY METHOD 01/15/2025 10:14 PM EDT [facility] MCH 30.0 26.0 - 32.0 pg LAB HEMATOLOGY METHOD 01/15/2025 10:14 PM EDT [facility] MCHC 33.1 30.7 - 35.5 g/dL LAB HEMATOLOGY METHOD 01/15/2025 10:14 PM EDT [facility] RDW 13.2 11.5 - 14.5 % LAB HEMATOLOGY METHOD 01/15/2025 10:14 PM EDT [facility] MPV 9.2 8.8 - 12.5 fL LAB HEMATOLOGY METHOD 01/15/2025 10:14 PM EDT [facility] nRBC 0.0 <=0.0 per 100 WBCs LAB HEMATOLOGY METHOD 01/15/2025 10:14 PM EDT [facility] Differential Type Automated LAB HEMATOLOGY METHOD 01/15/2025 10:14 PM EDT [facility] Neutrophils % 78 % LAB HEMATOLOGY METHOD 01/15/2025 10:14 PM EDT [facility] Lymphocytes % 12 % LAB HEMATOLOGY METHOD 01/15/2025 10:14 PM EDT [facility] Monocytes % 8 % LAB HEMATOLOGY METHOD 01/15/2025 10:14 PM EDT [facility] Eosinophils % 1 % LAB HEMATOLOGY METHOD 01/15/2025 10:14 PM EDT [facility] Basophils % 0 % LAB HEMATOLOGY METHOD 01/15/2025 10:14 PM EDT [facility] Immature Granulocytes % 1 % LAB HEMATOLOGY METHOD 01/15/2025 10:14 PM EDT [facility] Neutrophils Absolute 15.11(H) 1.60 - 6.10 10*3/uL LAB HEMATOLOGY METHOD 01/15/2025 10:14 PM EDT [facility] Lymphocytes Absolute 2.34 1.20 - 3.90 10*3/uL LAB HEMATOLOGY METHOD 01/15/2025 10:14 PM EDT [facility] Monocytes Absolute 1.46(H) 0.30 - 0.90 10*3/uL LAB HEMATOLOGY METHOD 01/15/2025 10:14 PM EDT [facility] Eosinophils Absolute 0.13 0.00 - 0.50 10*3/uL LAB HEMATOLOGY METHOD 01/15/2025 10:14 PM EDT [facility] Basophils Absolute 0.06 0.00 - 0.10 10*3/uL LAB HEMATOLOGY METHOD 01/15/2025 10:14 PM EDT [facility] Immature Granulocytes Absolute 0.14(H) 0.00 - 0.06 10*3/uL LAB HEMATOLOGY METHOD 01/15/2025 10:14 PM EDT [facility] Blood Venous blood specimen / Unknown Venipuncture / Unknown 01/15/2025 10:11 PM EDT 01/15/2025 10:12 PM EDT Narrative [facility] - 01/15/2025 10:14 PM EDT Therapeutic decision making should be based on absolute values, rather than percentages. us Gus Vigil APRN LAB BLOOD ORDERABLES Fin al Result [facility] [address] [place] [address] documented in this encounter Visit Diagnoses Diagnosis Cellulitis of leg, left- Primary Sepsis following procedure, initial encounter ([facility]) Cellulitis of left lower extremity Acute postoperative pain Other acute postoperative pain Closed fracture of left tibial plateau with routine healing, subsequent encounter Cellulitis of leg, left Cellulitis of left lower extremity Cellulitis of left lower extremity documented in this encounter Admitting Diagnoses Diagnosis Cellulitis of leg, left Cellulitis of left lower extremity Sepsis following procedure ([facility]) Closed fracture of left [...] 10 mg, Rectal, Daily PRN, Starting on Mon01/16/25 at 0750, Until Mon01/22/25 at 1922, Routine, constipation, if no bowel movement for 72 hours and no response to magnesium hydroxide DAPTOmycin (Cubicin) 1,100 mg in sodium chloride 0.9 % 100 mL IVPB 1,100 mg, Intravenous, Every 24 hours, First dose (after last modification) on Mon01/22/25 at 2100, Until Discontinued, Routine enoxaparin (Lovenox) syringe 60 mg 60 mg, Subcutaneous, 2 times daily, First dose on Mon01/16/25 at 0900, Until Discontinued, Routine Given 01/22/2025 8:48 AM EDT 60 mg Left Upper Abdomen Given 01/21/2025 9:07 PM EDT 60 mg Le ft Lower Abdomen Given 01/21/2025 9:01 AM EDT 60 mg Le ft Lower Abdomen ibuprofen tablet 400 mg 400 mg, Oral, Every 4 hours PRN, Starting on Mon01/16/25 at 0753, Until Mon01/22/25 at 1922, Routine, mild pain Given 01/21/2025 9:08 PM EDT 400 mg Given 01/21/2025 4:32 AM EDT 400 mg Given 01/20/2025 8:03 PM EDT 400 mg magnesium hydroxide (Milk of Magnesia) 400 [...] Routine Given 01/22/2025 8:47 AM EDT 1 Ap plication Given 01/21/2025 9:08 PM EDT 1 Application [...] 4:03 PM EDT 1 patch Other ondansetron ODT (Zofran-ODT) disintegrating tablet 4 mg 4 mg, Oral, Every 6 hours PRN, Starting on Mon01/16/25 at 0753, Until Mon01/22/25 at 1922, Routine, nausea, vomiting oxyCODONE (Roxicodone) immediate release tablet 5 mg 5 mg, Oral, Every 6 hours PRN, Starting on Mon01/21/25 at 0847, Until Mon01/22/25 at 1922, Routine, severe pain Given 01/22/2025 5:01 AM EDT 5 mg Given 01/21/2025 11:20 PM EDT 5 mg Given 01/21/2025 6:57 PM EDT 5 mg polyethylene glycol (Miralax) [...] Mon01/22/25 at 1922, Routine, line care sodium hypochlorite (Dakin's (QUARTER-Strength)) external solution As needed, Starting on 01/18/25 at 1100, Until 01/18/25 at 1515, Routine Given 01/18/2025 11:00 AM EDT 1 Application Ot her traMADol (Ultram) tablet 50 mg 50 mg, Oral, Every 6 hours PRN, Starting on Sneha 01/16/25 at 0753, Until Mon01/22/25 at 1922, Routine, severe pain, pain not responsive to non-opioid analgesics Given 01/22/2025 9:26 AM EDT 50 mg Given 01/18/2025 11:33 AM EDT 50 mg Given 01/16/2025 12:26 PM EDT 50 mg documented in this [...] Transfer Provider - Reason: Patient in procedure)1217 ([facility] Unhold - Provider: Automatic Transfer Provider)2001 (Given [...] Auto Held - Provider: Automatic Transfer Provider)121 ([facility] Unhold - Provider: Automatic Transfer Provider)2002 (Given - Provider: Taryn Miranda RN) 900 (Given - Provider: Katalina Martinez, SHEREEN)2107 (Given - Provider: Taryn Miranda RN) 0847 (Given - Provider: Leigh Rg RN) nicotine (Nicoderm CQ) 21 MG/24HR patch 1 patch 1 patch, Transdermal, Daily, First dose on Mon01/17/25 at 1215, Until Discontinued, Routine 0924 ([facility] Hold - Provider: Automatic Transfer Provider - Reason: Patient in procedure)121 ([facility] Unhold - Provider: Automatic [...] Katalina Martinez RN - Reason: Patient/family refused) 08 (Not Given - Provider: Leigh Rg RN [...] and no response to magnesium hydroxide 0924 ([facility] Hold - Provider: Automatic Transfer Provider - Reason: Patient in procedure)121 ([facility] Unhold - Provider: Automatic Transfer Provider) HYDROmorphone [...] 0411 (Given - Provider: Taryn Miranda RN)09 ([facility] Hold - Provider: Automatic Transfer Provider - Reason: Patient in procedure)121 ([facility] Unhold - Provider: Automatic Transfer Provider)1630 (Not Given - Provider: Alem Witt, SHEREEN - Reason: Patient/family refused)2002 (Given - Provider: Taryn Miranda RN) 043 (Given - Provider: Taryn Miranda RN)2107 (Given - Provider: Taryn Miranda RN) magnesium hydroxide (Milk of Magnesia) 400 MG/5ML suspension 30 mL 30 mL, Oral, Daily PRN, Starting on Sneha 01/16/25 at 0750, Until Mon01/22/25 at 1922, Routine, constipation, if no bowel movement for 48 hours 0924 ([facility] Hold - Provider: Automatic Transfer Provider - Reason: Patient in procedure)121 ([facility] Unhold - Provider: Automatic Transfer Provider) naloxone (Narcan) injection 0.08 mg 0.08 mg, Intravenous, As needed, Starting on Sneha 01/16/25 at 0753, Until Mon01/22/25 at 1922, Routine, respiratory depression, every 2 minutes 0924 ([facility] Hold - Provider: Automatic Transfer Provider - Reason: Patient in procedure)121 ([facility] Unhold - Provider: Automatic [...] Transfer Provider - Reason: Patient in procedure)1216 ([facility] Unhold - Provider: Automatic [...] RN)0411 (Given - Provider: Taryn Miranda RN)0924 ([facility] Hold - Provider: Automatic Transfer Provider - Reason: Patient in procedure)1217 ([facility] Unhold - Provider: Automatic [...] pain 0903 (Given - Provider: Katalina Martinez, RN)1857 (Given - Provider: Katalina Martinez, RN)2320 (Given - Provider: Taryn Miranda RN) 0501 (Given - Provider: Taryn Miradna RN)0924 (Not Given - Provider: Leigh Rg RN - Reason: Order parameters not met) sodium chloride 0.9 % flush 10 mL(Linked Group 2) 10 mL, Intravenous, As needed, Starting on Sneha 01/16/25 at 0750, Until Mon01/22/25 at 1922, Routine, line care 0924 ([facility] Hold - Provider: Automatic Transfer Provider - Reason: Patient in procedure)1217 ([facility] Unhold - Provider: Automatic Transfer Provider) traMADol (Ultram) tablet 50 mg 50 mg, Oral, Every 6 hours PRN, Starting on Sneha 01/16/25 at 0753, Until Mon01/22/25 at 1922, Routine, severe pain, pain not responsive to non-opioid analgesics 0924 ([facility] Hold - Provider: Automatic Transfer Provider [...] 2: Insert peripheral IV (CANCELED) Once, On Mon01/16/25 at 0751, For 1 occurrence And Saline [...] documented as of this encounter Care 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
--- OUTSIDE RECORDS SUMMARY | 2025-01-18 09:04 | XMS_ITS | Encounter Summary ---
Author Organization Healthcare Address [address] [place] [address] Care Team Providers Care Screw Machine Setter Name Role Phone Renetta Pardo APRN Primary Care Provider [phone] [phone] Reason for Visit * Auth/Cert (Routine) Specialty Diagnoses / Procedures Referred By Contac t Referred To Contact Diagnoses Acute postoperative pain Cellulitis of leg, left Cellulitis of left lower extremity Sepsis following procedure, initial encounter ([facility]) recent LLE surgery @ now with cellulitis Sachin Garza MD [address] [facility] [address] [place] [address] Phone: tel: fax: PAV H Inpatient [address] [place] [address] Phone: tel: Referral ID Status Reason Start Date Expiration Date Visits Re quested Visits Authorized [id number] 1 1 Encounter Details Date Type Department Care Team (Late st Contact Info) Description 01/18/2025 9:04 AM EDT Anesthesia Event PAV A OPERATING ROOM [address] [place] [address] Mark Little MD [address] [place] [address] [place] Arriaga, 800 [place], [place] [phone] Anesthesia Record Procedure Summary Procedure Name Responsible [...] any time in the past 12 m [facility], were you homeless or living in [...] drink first t traci in the morning (EYE-ROLLER SKATES ASSEMBLER) to steady your nerves or to get [...] soft tissue set, curettes, 6L NS [facility] [place] [facility] Surgeons: Ye Navarro MD 35 M [...] Description 02/11/2025 1:00 PM EDT Office Visit [facility] [address] [place] [address] Ary Santiago, CONSERVATION EDUCATOR [address] [facility] [address] [place] [address] 02/17/2025 8:40 AM EDT Appointment [facility] Radiology [address] 1st [place] [address] 02/17/2025 9:20 AM EDT Office Visit [facility] Orthopaedic Surgery & Sports Medicine [address], 1[address] [place] [address] [place] Hayes MD [address] [place] [address] 03/03/2025 1:00 PM EDT Office Visit [facility] [address] [place] [address] Ary Santiago, CONSERVATION EDUCATOR [address] [facility] [address] [place] [address] documented as of this encounter Procedures Procedure Name Priority Date/Time Associated Diagnosis Comments PB ANESTHESIA PLACEHOLDER Routine 01/18/2025 9:14 AM EDT [place] AN ELECTIVE ENDOTRACHEAL AIRWAY Routine 01/18/2025 9:14 AM EDT ANESTHESIA PERIPHERAL IV PLACEMENT Routine 01/18/2025 9:13 AM EDT documented in this encounter Results * [place] AN ELECTIVE ENDOTRACHEAL AIRWAY, PB ANESTHESIA PLACEHOLDER [...] documented as of this encounter Care Teams Screw Machine Setter Relationship Specialty Start Date End Date Renetta Pardo APRN [address] [place] [address] [place] [address] PCP - General 09/09/23 documented as of this encounter
--- OUTSIDE RECORDS SUMMARY | 2025-01-20 09:49 | XMS_ITS | Encounter Summary ---
Author Organization Healthcare Address [address] [place] [address] Care Team Providers Care Data Integration Developer Name Role Phone Renetta Pardo APRN Primary Care Provider +1 [phone] Reason for Visit * Auth/Cert (Routine) Specialty Diagnoses / Procedures Referred By Raymondac t Referred To Contact Diagnoses Acute postoperative pain Cellulitis of leg, left Cellulitis of left lower extremity Sepsis following procedure, initial encounter ([facility]) recent LLE surgery @ now with cellulitis Sachin Garza MD [address] [facility] [address] [place] [address] Phone: tel: fax: PAV H Inpatient [address] [place] [address] Phone: tel: Referral ID Status Reason Start Date Expiration Date Visits Re quested Visits Authorized [id number] 1 1 Encounter Details Date Type Department Care Team (Late st Contact Info) Description 01/20/2025 9:49 AM EDT Anesthesia Event [facility] RO[facility] [address] [place] [address] Filemon Matute MD [address] [place] [address] Gladis Tejada APRN [address] [place] [address] Anesthesia Record Procedure Summary Procedure [...] any time in the past 12 m [facility], were you homeless or [...] Have you had a drink first t trcai in the morning (EYE-PARTS CLASSIFIER) to steady your nerves or to get rid of a hangover? 0 09/10/2023 CAGE Questionnaire Score 0 024 Utilities Answer Date Recorded In the past 12 months has th e [employer], [employer], oil, or water [employer] threatened to shut off services in your [...] portions of the procedure(s) and immediately available [facility] services the entire duration. See [...] portions of the procedure(s) and immediately [facility] the [facility] duration. See resident note for details. * Anesthesia Preprocedure Evaluation - Filemon Matute MD - 01/20/2025 7:12 AM EDT Patient: Panda Machado Procedure Information Date/Time: 01/20/25 1020 Procedure: INCISION AND DRAINAGE, LOWER EXTREMITY (Left: Leg Lower) Location: [facility] 1 / [place] Surgeons: Ye [...] Normal Ventricular Rate 92 Atrial Rate 92 SC Interval 122 QRSD Interval 102 QT Interval 350 QTC Interval 432 P [place] 56 R [place] 44 T Wave [place] 57 Diagnosis Normal sinus rhythm Diagnosis Normal [...] LEG SURGERY Left [3] Allergies Allergen Reactions [place] Hives [4] acetaminophen, 1,000 mg, Oral, q6h [...] Description 02/11/2025 1:00 PM EDT Office Visit [address] [address] Ary Santiago, PLEATER HAND [address] [facility] [address] [place] [address] 02/17/2025 8:40 AM EDT Appointment [facility] Radiology [address], 1[address] [place] [address] 02/17/2025 9:20 AM EDT Office Visit [facility] Orthopaedic Surgery & Sports Medicine [address], 1[address] [place] [address] Lawrence Hayes MD [address] [place] [address] 03/03/2025 1:00 PM EDT Office Visit [facility] [address] [place] [address] Ary Santiago, PLEATER HAND [address] [facility] [address] [place] [address] documented as of this encounter Procedures Procedure Name Priority Date/Time Associated Diagnosis Comments ANESTHESIA PERIPHERAL IV PLACEMENT Routine 01/20/2025 10:10 AM EDT PB ANESTHESIA PLACEHOLDER Routine 01/20/2025 9:56 AM EDT SC AN ELECTIVE ENDOTRACHEAL AIRWAY Routine 01/20/2025 9:56 [...] MD ANESTHESIA ORDERABLES Final Res ult * [place] AN ELECTIVE ENDOTRACHEAL AIRWAY, PB ANESTHESIA PLACEHOLDER [...] needed, Starting on Mon01/20/25 at 0955, Until 01/20/25 at 1132, Routine, Anesthesia Intraprocedure Given 01/20/2025 [...] documented as of this encounter Care Teams Data Integration Developer Relationship Specialty Start Date End Date Renetta Pardo, PLEATER HAND [address] [place] [address] Dr Garcia [address] [place] [address] PCP - General 09/09/23 documented as of this encounter
--- OUTSIDE RECORDS SUMMARY | 2025-01-20 09:52 | XMS_ITS | Encounter Summary ---
Author Organization Healthcare Address [address] [place] [address] Care Team Providers Care Railroad Purchasing Agent Name Role Phone Renetta Pardo APRN Primary Care Provider [phone] Reason for Visit * Reason Comments Post-op Problem * Auth/Cert (Routine) Specialty Diagnoses / Procedures Referred By Adalid t Referred To Contact Diagnoses Acute postoperative pain Cellulitis of leg, left Cellulitis of left lower extremity Sepsis following procedure, initial encounter (CMS/[facility]) recent LLE surgery @ now with cellulitis Sachin Garza MD [address] [address] Phone: tel: fax: PAV H Inpatient [address] [place] [address] Phone: tel: Referral ID Status Reason Start Date Expiration Date Visits Re quested Visits Authorized [id number] 1 1 Encounter Details Date Type Department Care Team (Late st Contact Info) Description 01/20/2025 9:52 AM EDT - 01/20/2025 11:57 AM EDT Surgery PAV A OPERATING ROOM [address] [place] [address] Bob Nava MD [id number] [place] [address] INCISION AND DRAINAGE, LOWER EXTREMITY Surgery Details Date/Time Status Location OR Service Patient Class Case Class Case Type Trauma Case? 01/20/2025 9:52 AM Posted [facility] OR PAVA OR 05 Orthopedic Surgery Inpatient E-Electi ve [...] any time in the past 12 m [facility], were you homeless or living [...] drink first t traci in the morning (EYE-COMMERCIAL REPORTER) to steady your nerves or to get rid of a hangover? 0 09/10/2023 CAGE Questionnaire Score 0 024 Utilities Answer Date Recorded In the past 12 months has th e [employer], gas, oil, or water company threatened to [...] from the original note were not included. 40309 Flushing Your PICC Line at Home Your [...] soap and water, use an alcohol-based hand coastal tug mate. The gel should have at least 60% [...] PICC. Last Reviewed Date: 2024 00:00:00 ?? 5234-1401 [employer]. All rights reserved. This information is not intended as a substitute for professional medical care. Always follow your healthcare professional's instructions. * Rosaura RushDILLON - Leigh Rg RN - 01/22/2025 4:21 PM EDT Images from the original note were not included. 40605 Discharge Instructions: Changing the Dressing on Your [...] damage Last Reviewed Date: 2024 00:00:00 ?? 8844-1852 [employer]. All rights reserved. This information is not [...] the video go to this web address: [email or web address] Or, scan this QR code with your smart phone ?? [facility] * Rosaura Eason - Leigh Rg RN - 01/22/2025 4:20 PM EDT Images from the original note were not included. 87406 Understanding Post Sepsis Syndrome (PSS) Sepsis is [...] infections Last Reviewed Date: 2022 00:00:00 ?? 1160-9137 [employer]. All rights reserved. This information is not intended as a substitute for professional medical care. Always follow your healthcare professional's instructions. * Rosaura RushDILLON - Leigh Rg RN - 01/22/2025 4:20 PM EDT Images from the original note were not included. [id number] Buckle (Torus) Fracture of a Leg Your [...] you can dry it with a hair blender on the cool setting. ? Put an [...] doctor Last Reviewed Date: 2024 00:00:00 ?? 3513-1021 The [employer]. All rights reserved. This information is not intended as a substitute for professional medical care. Always follow your healthcare professional's instructions. * Rosaura Eason - Leigh Rg RN - 01/22/2025 4:20 PM EDT Images from the original note were not included. 15170 Discharge Instructions for Cellulitis You have been [...] are in pain. Ask what kind of helu-ntf-koyuqhb medicine you can take for pain. ? [...] Vomiting. Last Reviewed Date: 2024 00:00:00 ?? 1977-1919 The [employer]. All rights reserved. This information is not intended as a substitute for professional medical care. Always follow your healthcare professional's instructions. * Discharge Summary - Mauricio Mondragon MD - 01/22/2025 4:16 PM EDT Hospitalization Admit Date/Time: 01/15/2025 9:32 PM Admitting Attending: Sachin Garza Discharge Date: 01/22/25 Discharge Attending Physician: Sachin Garza MD PCP name and Address: Renetta Pardo, BOOKKEEPERS SUPERVISOR [address] [place] [address] [address] / [facility] [address] Referring provider name and address: Maldonado Luciano PA [address] [facility] [address] [place] [address] Chief Concern, Brief History of Present Illness, and Hospital Course Patient arrived to [facility] on 01/15/25 with concern for [...] Your Medications These medications were sent to [facility] -[place], [place] - [address], [facility] [address] DAPTOmycin injection These medications were sent to [facility] - [place], [place] - [address] [facility] [address] oxyCODONE 5 MG immediate release capsule Discharge Diagnosis Medical Problems Active and Resolved Hospital Problems Hospital Closed fracture of left tibial plateau Overview Addendum 09/16/2023 1:42 PM by Rolanda Adams APRN, DNP ORT consulted TROM in place WB per ORT 09/15: ORIF L tibial plateau fx Follow up with Dr. Nava on 10/04 * (Principal) Cellulitis of leg, left Sepsis following procedure (CMS/HCC) Cellulitis of left lower extremity Post Discharge [...] 01/27/2025 11:00 AM [facility] ORTHOPAEDICS CAD TECHNICIAN [facility] 02/03/2025 8:10 AM Lawrence Hayes MD [facility] 02/11/2025 1:00 PM Ary Santiago APRN IDBCCLX [place] 03/03/2025 1:00 PM Ary Santiago APRN IDBCCLX [place] Test Results Pending At Discharge Pending Labs [...] General: Spoke with: Patient, Family, and Bedside stove tender and Interventions: Assessed: Dressing Dressing Interventions: CDI [...] please contact the Orthopedic Transition Nurse at [phone] Monday through Monday 8:00 am to 2:30 pm. If you feel your concern is a medical emergency please call 911 immediately * Progress Notes - Anna Elam RN - 01/22/2025 9:28 AM EDT Case Management Discharge Note Ravin Ribeiro 34 y.o. male CSN: [id number] Admission: 01/15/2025 9:32 PM Primary Problem: Cellulitis of leg, left Primary Pyrometer Temperature Regulator: Primary Caregiver: Self Assistance Available at Discharge: Current Outpatient/Agency/Support Group: DME Availability of Care Givers (#Hours): 24 hours Family/Pyrometer Temperature Regulator(s) Willingness Assessed to care for patient at home: Yes Family/Pyrometer Temperature Regulator(s) Readiness Assessed to care for patient at [...] Community Agency(s): Patient's Choice of Community Agency(s): [facility] Patient/Family Anticipated Services at Transition: [...] agreeable to discharge POC. [facility] [phone] Anna Elam RN * Progress Notes - [...] required Ayden Canseco MD PGY-1, Orthopaedic Surgery [facility] Orthopaedic Trauma Service Pager: [phone] Orthopaedic Recon/Spine/Foot and Ankle Service Pager: [phone] Cosigned by Lawrence Hayes MD at 01/22/2025 [...] required Red Mondragon MD Orthopaedic Surgery PGY-1 [facility] Orthopaedic Trauma Service Pager: [phone] Orthopaedic Recon/Spine/Foot and Ankle Service Pager: [phone] Personal Pager: [phone] Cosigned by Lawrence Hayes MD at 01/22/2025 1:06 PM EDT * Procedures - Norma Miranda RN - 01/21/2025 7:01 PM EDTAssociated Order(s): Insert PICC line Insert PICC line Date/Time: 01/21/2025 7:01 PM Performed by: Norma Miranda RN Authorized by: Sachin Garza MD [place]ter Protocol: Verbal consent obtained?: Yes Written consent [...] preference Patient position: Supine Catheter Lot #: [id number] Catheter housing manager: SportSetter PowerPICC Solo Catheter placed: Single lumen Catheter [...] 01/21/2025 3:28 PM EDT [facility] and for for possible home IV antibiotic infusion. There was no accepting companies in patient's area. CM spoke with patient and he is agreeable to either go to his local hospital [facility] or come to [facility] in [place] for his weekly PICC care/labs if needed. * Nursing Note - Camden Vital RN - 01/21/2025 1:45 PM EDT Orthopedic Transition Nurse Note General: Spoke with: Patient, Family, and Bedside stove tender and Interventions: Assessed: Dressing Dressing Interventions: CDI and Prevena dressing in place. Negative Pressure Wound Therapy Leg Anterior;Left;Lower;Proximal (Active) Dressing Type Black foam 01/21/25799 Dressing Status Clean;Dry;Intact 01/21/25 08 Cycle On 01/21/25 08 Output (mL) 0 mL 01/20/25 1600 Wound 01/01/25 Surgical Open Surgical Incision Pretibial Left;Proximal (Active) Wound Assessment Unable to assess 01/21/25799 Margins Unable to assess 01/20/25 1130 Janeth-Wound [...] please contact the Orthopedic Transition Nurse at [phone] Monday through Monday 8:00 am to 2:30 pm. If you feel your concern is a medical emergency please call 911 immediately * Steff Odell RN - 01/21/2025 11:57 AM EDT Images from the original note were not included. [id number] PICC Line Care PICC stands for peripherally [...] arm Last Reviewed Date: 2024 00:00:00 ?? 1770-2065 The [employer]. All rights reserved. This information is not intended as a substitute for professional medical care. Always follow your healthcare professional's instructions. * Steff Odell RN - 01/21/2025 11:56 AM EDT Images from the original note were not included. 97789 * Steff Odell RN - 01/21/2025 11:56 AM EDT Images from the original note were not included. 32190 * Steff Odell RN - 01/21/2025 11:56 [...] house or a medical facility. The case finishing machine adjuster/licensed social worker will setthat up based on [...] or during weekends/[place] holidays, call the paging high pressure operator at . Ask for the infectious disease fellow avionics integration engineer. Call the clinic if you have any of these: ? Fevers greater than 100.5??F ? An allergic reaction, such as rash ? Nausea, vomiting, or diarrhea ? New or returning redness near the IV line ? Redness, pain, swelling, or pus around the IV line * Anthonyjose de jesus Jenaro - Steff Paz, RN - 01/21/2025 11:56 AM EDT Images from the original note were not included. 66148 Flushing Your PICC Line at Home Your [...] soap and water, use an alcohol-based hand coastal tug mate. The gel should have at least 60% [...] PICC. Last Reviewed Date: 2024 00:00:00 ?? 3779-4868 The [employer]. All rights reserved. This information is not intended as a substitute for professional medical care. Always follow your healthcare professional's instructions. * Rosaura RushCOMMUNITY HEALTH - Steff Paz RN - 01/21/2025 11:56 AM EDT Images from the original note were not included. [id number] Daptomycin Injection Brand Name(s): Cubicin??, Cubicin RF??; [...] be awakened, immediately call emergency services at 551. What OTHER INFORMATION should I know? Keep [...] of all of the prescription and nonprescription (rbze-dha-zltuydc) medicines you are taking, as well as [...] independent, informed decision of an appropriate health daytime caregiver, and the information is provided for informational [...] The [employer] [employer]-System Pharmacists??, [address] [facility], [address], [place], [place]. All Rights Reserved. Duplication for commercial use must be authorized by [facility]. Selected Revisions: July 28, 2019. AHFS?? Patient Medication Information?. ?? Copyright, 2024 * Rosaura OnIR - Steff Paz RN - 01/21/2025 11:56 AM EDT Images from the original note were not included. 34100 Discharge Instructions: Caring for Your Peripherally Inserted [...] damage. Last Reviewed Date: 2024 00:00:00 ?? 3550-2603 The [employer]. All rights reserved. This information is not intended as a substitute for professional medical care. Always follow your healthcare professional's instructions. * Rosaura RsuhDILLON - Steff Paz RN - 01/21/2025 11:56 AM EDT Images from the original note were not included. 37585 Central Line Infections You need a central [...] water. Or they use an alcohol-based hand coastal tug mate containing at least 60% alcohol. ? Using [...] (warm or cold), and use alcohol-based hand coastal tug mate with at least 60% alcohol as directed. To clean your hands well,follow the guidelines on this sheet. Visitors should wash their hands well when they arrive and when they leave. ? Make sure healthcare staff and your visitors clean their hands. They should use soap and clean, running water or an alcohol-based hand coastal tug mate before and after checking the line. Don?t [...] good choice for cleaning your hands. The coastal tug mate should have at least 60% alcohol. Note that some germs can't be killed by alcohol. Your healthcare team can answer any questions you have about when to use a hand coastal tug mate, or when it?s better to wash with soap and water. Follow these steps: ? Spread the hand coastal tug mate in the palm of one hand. (Check the package for specific guidelines.) ? Rub your hands together briskly. Clean the backs of your hands, the palms, between your fingers, and up your wrists. ? Rub until the coastal tug mate is gone and your hands are completely [...] skin Last Reviewed Date: 2023 00:00:00 ?? 3895-5749 The [employer]. All rights reserved. This information is not [...] Single Lumen PICC Patient Specific Outpatient Circumstances: [address] [place] [address] Family Support: Extended Emergency Contact Information Primary Emergency Contact: Hayley Buenrostro Address: [address] [place] [address] Mobile Relation: Significant Other Preferred language: Moldovan Bathhouse Attendant needed? No Secondary Emergency Contact: Jenny Buenrostro Address: [address] [place] [address] [place] Mobile Relation: Mother Contact information: Ravin Ribeiro [phone] (home) Outpatient services (including home infusion, home health, facility referral: See recent [facility] case management/social work note for finalization of services ID follow up appointment: Future Appointments Date Time Provider Department Center 02/03/2025 8:10 AM Lawrence Hayes MD [facility] 02/11/2025 1:00 PM Ary Santiago APRN IDBCCLX [place] 03/03/2025 1:00 PM Ary Santiago APRN IDBCCLX [place] Patient Assessment I spoke with patient at [...] via secure chat or staff messaging in [employer]. Patient and family will need to be [...] days prior to presentation. He presented to [facility] wherehe was febrile to 101.3F. [...] PA-C Division of Infectious Diseases Available on [employer] Chat History, assessment, and plan discussed with [...] labs to: ID OPAT Team Fax #: [phone] Appointments: Ary Santiago APRN on 02/11 at 1PM and 03/03 at 1PM [facility] [address] [place] [address] (Select Option 3 for IV Antibiotic / PICC line related issues) For questions regarding OPAT prior to discharge, reach out to the OPAT team via [employer] Secure Chat (Group: OPAT Referral Team). For all questions regarding OPAT after discharge should be directed to the OPAT Team at (Select Option 3 for IV Antibiotics/PICC Issues) between 8am-5pm. After 5 pm, or during weekends/ holidays, please call the paging high pressure operator at to reach the on-call ID [...] Daily Gustavo Hightower MD1 patch at 01/21/25 09 ondansetron ODT (Zofran-ODT) [...] at 01/18/25 1133 [2] Allergies Allergen Reactions Portage Hives * Consults - Delma Ortiz - 01/21/2025 10:00 AM EDT Pastoral Care Note: Patient was appreciative of welder production line gas's visit and expressed gratitude to the care team. he said family is on their way to him. Referral From: Phlebotomist Initiated Pastoral Care Provided For: Patient Patient Profile: Spiritual Assessment: Support Systems/ Spiritual Resources: Treasure, Sense of Peace, Trust, Gratitude Spiritual Needs: Emotional support, Spiritual ritual Spiritual Issues: Discharge Interventions: Pastoral Care Outcomes: Patient Outcomes: Appreciative of Phlebotomist Support, Expresses acceptance, Gratitude Cosigned by Macrina Dumont at 01/21/2025 6:24 PM EDT Associated attestation - Macrina Dumont - 01/21/2025 6:24 PM EDT This is to attest welder production line gas record label internship chart note has been reviewed and [...] to ambulate in room/hallway with family and administrative staff supervisor while remains inpatient. Patient demonstrates no further [...] Prevent or Manage Infection Flowsheets (Taken 01/20/2025 7565) Infection Management: aseptic technique maintained Fever Reduction/Comfort [...] Agree with above assessment and evaluation from resident/JACQUARD LOOM HEDDLES TIER. * Progress Notes - Anna Elam RN - 01/20/2025 10:48 AM EDT Case Management Adult Progress Note Ravin Ribeiro 34 y.o. male CSN: [id number] Admission: 01/15/2025 9:32 PM Primary Problem: Cellulitis of leg, left Anticipated Discharge Date: TBD Pt to OR today for repeat I&D on left knee. Pt has worsening NORMAN and team wants to repeat AM labs. Final ID recs and OPAT eval are pending. Referral sent to [facility] and HH today. Pt's medicaid may be a potential barrier to HH. CM will continue to assist with discharge POC. Anna Elam RN * Op Note - Bob Nava MD - 01/20/2025 10:26 AM EDT Operative Note Date: 01/20/25 Location: [facility] Name: Ravin Ribeiro, : 1990, Diagnoses: Pre-op Diagnosis Closed fracture of left tibial plateau with routine healing, subsequent encounter Left proximal tibia (knee region) deep abscess Post-op Diagnosis Closed fracture of left tibial plateau with routine healing, subsequent encounter Left proximal tibia (knee region) deep abscess Procedure(s): Incision and drainage of left knee deep abscess Attending Surgeon(s): * Bob Nava - Primary Business School Dean(s): * Emely Giron MD - Resident - [...] days prior to presentation. He presented to [facility] wherehe was febrile to 101.3F. [...] PA-C Division of Infectious Diseases Available on [facility] Chat History, assessment, and plan discussed with [...] Gustavo Hightower MD [2] Allergies Allergen Reactions Portage Hives * Consults - Ricco Howard RN [...] required Ayden Canseco MD PGY-1, Orthopaedic Surgery [facility] Orthopaedic Trauma Service Pager: [phone] Orthopaedic Recon/Spine/Foot and Ankle Service Pager: [phone] Cosigned by Sachin Garza MD at 01/20/2025 [...] encounter ([facility]) 2. Cellulitis of left lower [...] admission Level of Mobility: Ambulatory- community Mobility Coolidge: Independent gait without device (intermittne use of [...] Mobility Bed Mobility Exam: Scooting/Bridging Level of Coolidge: Independent Bed Mobility Exam: Supine to Sit Level of Coolidge: Independent Transfers Transfer Exam: Sit to stand Level of Coolidge: Stand-by assist Physical/Nonphysical Assist: Verbal Cues Assistive Device: Walker, rolling Transfer Exam: Stand to Sit Level of Coolidge: Stand-by assist Physical/Nonphysical Assist: Verbal Cues Assistive Device: Walker, rolling Toilet Transfer Level of Coolidge: Stand-by assist Physical/Nonphysical Assist: Verbal Cues Type of Transfer: Ambulation, To toilet Assistive Device: Walker, rolling, Grab bar Functional Mobility Device: Rolling walker Assistance: Standby assist <Household distance, cuing for safety, pacing activity, RW management, and encouraged L LE WBAT-as permitted per chart (pt reports being used to NWB for pain management DRIER TENDER) Balance Postural Appearance Posture: Within Functional Limits [...] admission Level of Mobility: Ambulatory- community Mobility Coolidge: Independent gait without device (intermittne use of [...] Mobility Bed Mobility Exam: Scooting/Bridging Level of Coolidge: Independent Bed Mobility Exam: Supine to Sit Level of Coolidge: Independent Transfers Transfer Exam: Sit to stand Level of Coolidge: Stand-by assist Physical/Nonphysical Assist: Verbal Cues Assistive Device: Walker, rolling Transfer Exam: Stand to Sit Level of Coolidge: Stand-by assist Physical/Nonphysical Assist: Verbal Cues Assistive [...] Assessments Standardized Assessments: AMPA 6-Clicks Mobility Assessment [facility] 6-Clicks Mobility Assessment Difficulty patient has [...] required Red Mondragon MD Orthopaedic Surgery PGY-1 [facility] Orthopaedic Trauma Service Pager: [phone] Orthopaedic Recon/Spine/Foot and Ankle Service Pager: [phone] Personal Pager: [phone] Cosigned by Ye Navarro MD at 01/21/2025 [...] AM EDT Operative Note Date: 01/18/25 Location: [facility] Name: Ravin Ribeiro, : 1990, Diagnoses: Pre-op Diagnosis Cellulitis of left lower extremity Post-op Diagnosis Cellulitis of left lower extremity Procedure(s): Irrigation and debridement of left medial tibial plateau deep abscess Attending Surgeon(s): * Ye Navarro - Primary Business School Dean(s): * Harvey Swift MD - Resident - [...] this will make NPO @ [place]. Repeat exam/7 AM with possible OR. Suhail Dueñas MD * Progress Notes - Jeannette Daly PharmD - 01/17/2025 3:07 PM EDT Pharmacokinetic 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 stove tender and Interventions: Assessed: Wound 01/01/25 Surgical Open Surgical Incision Pretibial Left;Proximal (Active) Wound Assessment Red 01/15/25 215 Margins Well-defined edges;Attached edges 01/15/252149 Janeth-Wound Assessment Red 01/15/25 215 Closure [place] 01/15/252149 Wound 01/01/25 Face Left;Upper (Active) Education: Education provided on: Pain protocol/management Plan of Care: Follow up with TBD. Op-Plan: Awaiting to see how patient responds to IV abx. Contact Card Given: no Comments: Team is waiting to see if patient improves on IV abx. Awaiting ID recs. For medical questions or concerns after discharge, please contact the Orthopedic Transition Nurse at [phone] Monday through Monday 8:00 am to 2:30 [...] ] Family [ ] Friend [ ] Bathhouse Attendant [X] Medical records HISTORY OF PRESENT ILLNESS: [...] medial pretibial incision so he presented to [facility] for evaluation. He was febrile [...] on day of presentation. He lives in [place] with his , CONSTANZA, and 2 young [...] days prior to presentation. He presented to [facility] wherehe was febrile to 101.3F. [...] PA-C Division of Infectious Diseases Available on [employer] Chat History, assessment, and plan discussed with ID attending, Dr. Azucena Collado The following complex inpatient infectious disease services were performed today: Complex antimicrobial therapy counseling and treatment [1] History reviewed. No pertinent past medical history. [2] Past Surgical History: Procedure Laterality Date LEG SURGERY Left [3] Allergies Allergen Reactions Portage Hives [4] Current Facility-Administered Medications Medication Dose [...] Note Ravin Ribeiro 34 y.o. male CSN: [id number] Admission: 01/15/2025 9:32 PM Primary Problem: Cellulitis of leg, left Casino Operations Supervisor reviewed chart and spoke with patient to complete this Initial Case Management Assessment. PCP: Renetta Pardo APRN Emergency Contact: Extended Emergency Contact Information Primary Emergency Contact: Hayley Buenrostro Address: [address] [place] [address] Mobile Relation: Significant Other Preferred language: Moldovan Bathhouse Attendant needed? No Secondary Emergency Contact: Jenny Buenrostro Address: [address] [place] [address] Mobile Relation: Mother Insurance: Primary Visit Coverage Payer Plan Sponsor Code Group Number Group Name [employer]ICA[employer] MOLINA [employer]ICAID Primary Visit Coverage Subscriber Subscriber ID Subscriber Name Subscriber N Subscriber Address [id number] RAVIN RIBEIRO [id number] [place] [address] Patient information: Primary Caregiver: Self Support System: Immediate family Daily Living Activities: Functional Status: Independent Living Arrangements: Spouse/Significant other, Family Type of Residence: Private residence, Single Level [address] [place] [address] Current DME: Equipment Currently Used at Home: [...] Outpatient Dialysis Services: Living Will/Advance Directive/Power of Slackline Operator /Guardian: Have you reviewed your Advance Directive [...] Pt states he lives at home in [place] with his , MIL, and two small 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 stove tender and Interventions: Assessed: Wound 01/01/25 Surgical Open Surgical Incision Pretibial Left;Proximal (Active) Wound Assessment Red 01/15/250 Margins Well-defined edges;Attached edges 01/15/252149 Janeth-Wound Assessment Red 01/15/25 2150 Closure Martha 01/15/252149 Wound 01/01/25 Face Left;Upper [...] please contact the Orthopedic Transition Nurse at [phone] Monday through Monday 8:00 am to 2:30 [...] exams. Mitch Giron MD PGY-3, Orthopaedic Surgery [facility] Orthopaedic Trauma Service Pager: [phone] Orthopaedic Recon/Spine/Foot and Ankle Service Pager: [phone] Cosigned by Sachin Garza MD at 01/18/2025 [...] your wound. Based upon recent changes to [place] law related to prescribing opioid pain medications, [...] please contact the Orthopedic Transition Nurse at [phone] Monday through Monday 8:00 am to 2:30 [...] examinations Tabitha Howard MD PGY-2, Orthopaedic Surgery [facility] Cosigned by Sachin Garza MD at [...] W. Shawn Howard MD PGY-2, Orthopaedic Surgery [facility] Orthopaedic Trauma Service Pager: [phone] Orthopaedic Recon/Spine/Foot and Ankle Service Pager: [phone] [1] History reviewed. No pertinent past medical [...] 25 tablet 0 [4] Allergies Allergen Reactions [place] Hives Cosigned by Sachin Garza MD at [...] workup as below was ordered reviewed by . CBC showed significant leukocytosisat 19k. Blood cultures [...] Time/INR STAT Final result TYRONE HOWARD 01/16/25 004 Basic Metabolic Panel, Plasma STAT Final result [...] 01/15/252224 Type and Screen Once Final result LEE TYRONE Miguel 01/15/252224 Once Canceled GUS VIGIL P [...] 01/15/252133 Sed rate, automated STAT Final result UGS VIGIL P 01/15/252133 Blood Culture (Aerobic/Anaerobet Set) STAT Preliminary result GUS VIGIL P 01/15/252133 Blood Culture (Aerobic/Anaerobet Set) STAT Preliminary result GUS VIGIL P 01/15/252133 Saline lock IV Once Acknowledged GUS VIGIL P 01/15/252133 CBC w/diff STAT Final result GUS VIGIL P 01/15/252133 PT-INR STAT Final result GUS VIGIL P 01/15/252133 CMP STAT Final result GUS VIGIL P Assessment: Clinical Impressions as of 01/16/25 0657 Sepsis following procedure, initial encounter ([facility]) Cellulitis of left lower extremity [...] encounter ([facility]). Diagnoses of Cellulitis of left [...] Drug use: Never [5] Allergies Allergen Reactions [place] Hives Gus Vigil APRN 01/16/25 0657 Cosigned [...] arrival. AAOX4, GCS 15. C/O leg pain 12/21. * Progress Notes - Hayden Weiss PA [...] injection 50 mcg 50 mcg Intravenous Given 01/15/20252212 EDT ondansetron (Zofran) injection 4 mg 4 [...] encounter ([facility]) Cellulitis of left lower extremity Acute postoperative pain Ultimately, this patient Was admitted (Admission) The primary encounter diagnosis was Sepsis following procedure, initial encounter ([facility]). Diagnoses of Cellulitis of left [...] Description 02/11/2025 1:00 PM EDT Office Visit [facility] [address] [place] [address] Ary Santiago, YUN [address] [facility] [place] [address] [place] [address] 02/17/2025 8:40 AM EDT Appointment [facility] Radiology [address] [place] [address] 02/17/2025 9:20 AM EDT Office Visit [facility] Orthopaedic Surgery & Sports Medicine [address] [place] [address] Lawrence Hayes MD [address] [place] [address] 03/03/2025 1:00 PM EDT Office Visit [facility] [address] [facility] [place] [address] Ary Santiago, YUN [address] [facility] [address] [place] [address] Pending Results Name Type Priority [...] (ABNORMAL) C-reactive protein (01/22/2025 5:04 AM EDT) [facility] CRP, Plasma 44.4(H) <=8.0 mg/L 01/22/2025 9:25 AM EDT [facility] Blood Venous blood specimen / Unknown Venipuncture / Unknown 01/22/2025 5:04 AM EDT 01/22/2025 5:31 AM EDT Narrative [facility] - 01/22/2025 9:25 AM EDT This CRP test is appropriate for assessment of infection, systemic inflammation and/or tissue injury. To assess cardiovascular disease risk order high sensitivity CRP (CRPH). us Michelle ZULUAGA LAB BLOOD ORDERABLES Final Res ult [facility] [address] [place] [address] * Lavender Top (01/22/2025 5:04 AM EDT) Extra Hold for add-ons 01/22/2025 8:02 AM EDT [facility] Comment:Auto resulted. Blood Venous blood specimen / Unknown 01/22/2025 5:04 AM EDT 01/22/2025 5:30 AM EDT us Sachin Garza MD LAB BLOOD ORDERABLES Final R esult Performing Organization Address [facility]/ZIP Co de Phone Number [facility] [address] [place] [address] * (ABNORMAL) Basic metabolic panel (01/22/2025 5:04 AM EDT) Glucose, Plasma 91 74 - 99 mg/dL 01/22/2025 6:01 AM EDT [facility] BUN, Plasma 33(H) 7 - 21 mg/dL 01/22/2025 6:01 AM EDT [facility] Creatinine, Plasma 1.47(H) 0.70 - 1.20 mg/dL 01/22/2025 6:01 AM EDT [facility] BUN/Creatinine Ratio 22 01/22/2025 6:01 AM EDT [facility] Sodium, Plasma 137 136 - 145 mmol/L 01/22/2025 6:01 AM EDT [facility] Potassium, Plasma 5.3(H) 3.6 - 4.9 mmol/L 01/22/2025 6:01 AM EDT [facility] Chloride, Plasma 100 97 - 107 mmol/L 01/22/2025 6:01 AM EDT [facility] CO2, Plasma 28 22 - 29 mmol/L 01/22/2025 6:01 AM EDT [facility] Anion Gap 9 6 - 16 mmol/L 01/22/2025 6:01 AM EDT [facility] Total Calcium, Plasma 9.6 8.9 - 10.2 mg/dL 01/22/2025 6:01 AM EDT [facility] eGFRcr 63.4 mL/min/1.7 3m*2 01/22/2025 6:01 AM EDT [facility] Comment:Reported eGFRcr in m L/min/1.73m2 is based the CKD-EPI 2020 equation that does not use a race coefficient. Blood Venous blood specimen / Unknown Venipuncture / Unknown 01/22/2025 5:04 AM EDT 01/22/2025 5:31 AM EDT us Sachin Garza MD LAB BLOOD ORDERABLES Final R esult [facility] [address] [place] [address] * (ABNORMAL) CBC (01/21/2025 7:29 PM EDT) WBC Count 10.10 3.70 - 10.30 10*3/uL LAB HEMATOLOGY METHOD 01/21/2025 7:42 PM EDT [facility] RBC Count 3.82(L) 4.60 - 6.10 10*6/uL LAB HEMATOLOGY METHOD 01/21/2025 7:42 PM EDT [facility] HGB 11.5(L) 13.7 - 17.5 g/dL LAB HEMATOLOGY METHOD 01/21/2025 7:42 PM EDT [facility] HCT 35.2(L) 40.0 - 51.0 % LAB HEMATOLOGY METHOD 01/21/2025 7:42 PM EDT [facility] Platelet Count 446(H) 155 - 369 10*3/uL LAB HEMATOLOGY METHOD 01/21/2025 7:42 PM EDT [facility] MCV 92 79 - 98 fL LAB HEMATOLOGY METHOD 01/21/2025 7:42 PM EDT [facility] MCH 30.1 26.0 - 32.0 pg LAB HEMATOLOGY METHOD 01/21/2025 7:42 PM EDT [facility] MCHC 32.7 30.7 - 35.5 g/dL LAB HEMATOLOGY METHOD 01/21/2025 7:42 PM EDT [facility] RDW 13.1 11.5 - 14.5 % LAB HEMATOLOGY METHOD 01/21/2025 7:42 PM EDT [facility] MPV 9.1 8.8 - 12.5 fL LAB HEMATOLOGY METHOD 01/21/2025 7:42 PM EDT [facility] nRBC 0.0 <=0.0 per 100 WBCs LAB HEMATOLOGY METHOD 01/21/2025 7:42 PM EDT [facility] Blood Venous blood specimen / Unknown Venipuncture / Unknown 01/21/2025 7:29 PM EDT 01/21/2025 7:35 PM EDT us Sachin Garza MD LAB BLOOD ORDERABLES Final R esult [facility] [address] [place] [address] * (ABNORMAL) Basic metabolic panel (01/21/2025 7:29 PM EDT) Glucose, Plasma 122(H) 74 - 99 mg/dL 01/21/2025 8:03 PM EDT [facility] BUN, Plasma 31(H) 7 - 21 mg/dL 01/21/2025 8:03 PM EDT [facility] Creatinine, Plasma 1.64(H) 0.70 - 1.20 mg/dL 01/21/2025 8:03 PM EDT [facility] BUN/Creatinine Ratio 19 01/21/2025 8:03 PM EDT [facility] Sodium, Plasma 139 136 - 145 mmol/L 01/21/2025 8:03 PM EDT [facility] Potassium, Plasma 4.6 3.6 - 4.9 mmol/L 01/21/2025 8:03 PM EDT [facility] Chloride, Plasma 101 97 - 107 mmol/L 01/21/2025 8:03 PM EDT [facility] CO2, Plasma 26 22 - 29 mmol/L 01/21/2025 8:03 PM EDT [facility] Anion Gap 12 6 - 16 mmol/L 01/21/2025 8:03 PM EDT [facility] Total Calcium, Plasma 9.1 8.9 - 10.2 mg/dL 01/21/2025 8:03 PM EDT [facility] eGFRcr 55.6 mL/min/1.7 3m*2 01/21/2025 8:03 PM EDT [facility] Comment:Reported eGFRcr in m L/min/1.73m2 is based the CKD-EPI 2020 equation that does not use a race coefficient. Blood Venous blood specimen / Unknown Venipuncture / Unknown 01/21/2025 7:29 PM EDT 01/21/2025 7:35 PM EDT us Sachin Garza MD LAB BLOOD ORDERABLES Final R esult [facility] [address] [place] [address] * PICC SINGLE LUMEN (SMARTFORM LINK) (01/21/2025 7:01 PM EDT) Narrative Norma Miranda RN - 01/21/2025 7:01 PM EDT Norma Miranda RN 01/21/2025 7:19 PM Insert PICC line Date/Time: 01/21/2025 7:01 PM Performed by: Norma Miranda RN Authorized by: Sachin Garza MD Dexter Protocol: Verbal consent obtained?: Yes Written consent [...] preference Patient position: Supine Catheter Lot #: [id number] Catheter housing manager: Bard PowerPICC Solo Catheter placed: Single [...] at day 4 2024 7:15 AM EDT [facility] Gram Stain Result No polymorphonuclear leukocytes seen 01/25/2025 7:15 AM EDT [facility] Gram Stain Result No organisms seen 01/25/2025 7:15 AM EDT [facility] Swab Structure of left knee region / Unknown 01/20/2025 10:42 AM EDT 01/20/2025 11:25 AM EDT Comment:Pre-op diagnosis: Closed fracture of left tibial plateau with routine healing, subsequent encounter [S80.566Z] us Bob Nava MD LAB MICROBIOLOGY - GENERAL O RDERABLES Final Result [facility] [address] [place] [address] * Fungal Culture, Routine (01/20/2025 10:42 AM EDT) Culture No Fungal Growth at 1 Week 01/28/2025 7:34 AM EDT [facility] Swab Structure of left knee region / Unknown 01/20/2025 10:42 AM EDT 01/20/2025 11:25 AM EDT Comment:Pre-op diagnosis: Closed fracture of left tibial plateau with routine healing, subsequent encounter [S82.142D] us Bob Nava MD LAB MICROBIOLOGY - GENERAL O RDERABLES Final Result Performing Organization Address City/[facility] Co de Phone Number [facility] [address] [place] [address] * Anaerobic Culture (01/20/2025 10:42 AM EDT) Culture No growth at day 4 01/28/2025 7:09 AM EDT [facility] Swab Structure of left knee region / Unknown 01/20/2025 10:42 AM EDT 01/20/2025 11:25 AM EDT Comment:Pre-op diagnosis: Closed fracture of left tibial plateau with routine healing, subsequent encounter [S82.142D] us Bob Nava MD LAB MICROBIOLOGY - GENERAL O RDERABLES Final Result Performing Organization Address [facility] Co de Phone Number [facility] [address] [place] [address] * Tissue Culture and Gram Stain (01/20/2025 10:30 AM EDT) Culture No growth at day 4 2024 7:15 AM EDT [facility] Gram Stain Result No polymorphonuclear leukocytes seen 01/25/2025 7:15 AM EDT [facility] Gram Stain Result No organisms seen 01/25/2025 7:15 AM EDT [facility] Tissue Structure of left knee region / Unknown 01/20/2025 10:30 AM EDT 01/20/2025 11:23 AM EDT Comment:Pre-op diagnosis: Closed fracture of left tibial plateau with routine healing, subsequent encounter [S82.142D] us Bob Nava MD LAB MICROBIOLOGY - GENERAL O RDERABLES Final Result [facility] [address] [place] [address] * Anaerobic Culture (01/20/2025 10:30 AM EDT) Culture No growth at day 4 01/28/2025 7:09 AM EDT [facility] Tissue Structure of left knee region / Unknown 01/20/2025 10:30 AM EDT 01/20/2025 11:23 AM EDT Comment:Pre-op diagnosis: Closed fracture of left tibial plateau with routine healing, subsequent encounter [S82.142D] us Bob Nava MD LAB MICROBIOLOGY - GENERAL O RDERABLES Final Result Performing Organization Address [facility] Co de Phone Number [facility] [address] [place] [address] * Tissue Culture and Gram Stain (01/20/2025 10:27 AM EDT) Culture No growth at day 4 2024 7:15 AM EDT [facility] Gram Stain Result No organisms seen 01/25/2025 7:15 AM EDT [facility] Gram Stain Result No polymorphonuclear leukocytes seen 01/25/2025 7:15 AM EDT [facility] Tissue Structure of left knee region / Unknown 01/20/2025 10:27 AM EDT 01/20/2025 11:24 AM EDT Comment:Pre-op diagnosis: Closed fracture of left tibial plateau with routine healing, subsequent encounter [S82.142D] us Bob Nava MD LAB MICROBIOLOGY - GENERAL O RDERABLES Final Result Performing Organization Address City/[facility]/ZIP Co de Phone Number [facility] [address] [place] [address] * Anaerobic Culture (01/20/2025 10:27 AM EDT) Culture No growth at day 4 01/28/2025 7:09 AM EDT [facility] Tissue Structure of left knee region / Unknown 01/20/2025 10:27 AM EDT 01/20/2025 11:24 AM EDT Comment:Pre-op diagnosis: Closed fracture of left tibial plateau with routine healing, subsequent encounter [S82.142J] Bob Nava MD LAB MICROBIOLOGY - GENERAL O RDERABLES Final Result Performing Organization Address [facility] Co de Phone Number [facility] [address] [place] [address] * (ABNORMAL) Creatine Kinase (CK), Total (01/20/2025 3:40 AM EDT) Creatine Kinase, Plasma 18(L) 49 - 320 U/L 01/21/2025 12:17 PM EDT [facility] Blood Venous blood specimen / Unknown Venipuncture / Unknown 01/20/2025 3:40 AM EDT 01/20/2025 3:57 AM EDT Sachin Garza MD LAB BLOOD ORDERABLES Final R esult Performing Organization Address [facility] Co de Phone Number [facility] [address] [place] [address] * Vancomycin, random (01/20/2025 3:40 AM EDT) Pathologist [facility] Vancomycin, Random, Plasma 20.1 ug/mL 01/20/2025 4:51 AM EDT [facility] Blood Venous blood specimen / Unknown Venipuncture / Unknown 01/20/2025 3:40 AM EDT 01/20/2025 3:57 AM EDT Sachin Garza MD LAB BLOOD ORDERABLES Final R esult Performing Organization Address City/[facility] Co de Phone Number [facility] [address] [place] [address] * Protime-INR (01/20/2025 3:40 AM EDT) Prothrombin Time 13.5 12.0 - 14.3 sec LAB COAGULATION METHOD 01/20/2025 4:17 AM EDT [facility] INR 1.0 0.9 - 1.1 LAB COAGULATION METHOD 01/20/2025 4:17 AM EDT [facility] Blood Venous blood specimen / Unknown Venipuncture / Unknown 01/20/2025 3:40 AM EDT 01/20/2025 3:56 AM EDT Narrative [facility] - 01/20/2025 4:17 AM EDT OPTIMAL INR RANGES FOR PATIENT ON ORAL ANTICOAGULANT THERAPY Prevention of venous thromboembolism INR 2.0 to 3.0 In patients with heart disease: Atrial fibrillation INR 2.0 to 3.0 Valvular heart disease INR 2.0 to 3.0 Tissue heart valves INR 2.0 to 3.0 Mechanical prosthetic valves INR 2.5 to 3.5 Prevention of recurrent CA INR 2.5 to 3.5 us Sachin Garza MD LAB BLOOD ORDERABLES Final R esult [facility] [address] [place] [address] * (ABNORMAL) Basic metabolic panel (01/20/2025 3:40 AM EDT) Pathologist [facility] Glucose, Plasma 87 74 - 99 mg/dL 01/20/2025 4:51 AM EDT [facility] BUN, Plasma 30(H) 7 - 21 mg/dL 01/20/2025 4:51 AM EDT [facility] Creatinine, Plasma 1.59(H) 0.70 - 1.20 mg/dL 01/20/2025 4:51 AM EDT [facility] BUN/Creatinine Ratio 19 01/20/2025 4:51 AM EDT [facility] Sodium, Plasma 142 136 - 145 mmol/L 01/20/2025 4:51 AM EDT [facility] Potassium, Plasma 4.7 3.6 - 4.9 mmol/L 01/20/2025 4:51 AM EDT [facility] Chloride, Plasma 104 97 - 107 mmol/L 01/20/2025 4:51 AM EDT [facility] CO2, Plasma 26 22 - 29 mmol/L 01/20/2025 4:51 AM EDT [facility] Anion Gap 12 6 - 16 mmol/L 01/20/2025 4:51 AM EDT [facility] Total Calcium, Plasma 8.9 8.9 - 10.2 mg/dL 01/20/2025 4:51 AM EDT [facility] eGFRcr 57.7 mL/min/1.7 3m*2 01/20/2025 4:51 AM EDT [facility] Comment:Reported eGFRcr in m L/min/1.73m2 is based the CKD-EPI 2020 equation that does not use a race coefficient. Blood Venous blood specimen / Unknown Venipuncture / Unknown 01/20/2025 3:40 AM EDT 01/20/2025 3:57 AM EDT us Sachin Garza MD LAB BLOOD ORDERABLES Final R esult [facility] [address] [place] [address] * (ABNORMAL) CBC W/O Differential (01/20/2025 3:40 AM EDT) WBC Count 8.11 3.70 - 10.30 10*3/uL LAB HEMATOLOGY METHOD 01/20/2025 4:04 AM EDT [facility] RBC Count 3.64(L) 4.60 - 6.10 10*6/uL LAB HEMATOLOGY METHOD 01/20/2025 4:04 AM EDT [facility] HGB 10.7(L) 13.7 - 17.5 g/dL LAB HEMATOLOGY METHOD 01/20/2025 4:04 AM EDT [facility] HCT 34.5(L) 40.0 - 51.0 % LAB HEMATOLOGY METHOD 01/20/2025 4:04 AM EDT [facility] Platelet Count 399(H) 155 - 369 10*3/uL LAB HEMATOLOGY METHOD 01/20/2025 4:04 AM EDT [facility] MCV 95 79 - 98 fL LAB HEMATOLOGY METHOD 01/20/2025 4:04 AM EDT [facility] MCH 29.4 26.0 - 32.0 pg LAB HEMATOLOGY METHOD 01/20/2025 4:04 AM EDT [facility] MCHC 31.0 30.7 - 35.5 g/dL LAB HEMATOLOGY METHOD 01/20/2025 4:04 AM EDT [facility] RDW 13.1 11.5 - 14.5 % LAB HEMATOLOGY METHOD 01/20/2025 4:04 AM EDT [facility] MPV 9.5 8.8 - 12.5 fL LAB HEMATOLOGY METHOD 01/20/2025 4:04 AM EDT [facility] nRBC 0.0 <=0.0 per 100 WBCs LAB HEMATOLOGY METHOD 01/20/2025 4:04 AM EDT [facility] Blood Venous blood specimen / Unknown Venipuncture / Unknown 01/20/2025 3:40 AM EDT 01/20/2025 3:56 AM EDT Sachin Garza MD LAB BLOOD ORDERABLES Final R esult Performing Organization Address City/[facility]/ZIP Co de Phone Number [facility] [address] [place] [address] * Vancomycin, random (01/19/2025 11:48 AM EDT) Vancomycin, Random, Plasma 22.9 ug/mL 01/19/2025 1:05 PM EDT [facility] Blood Venous blood specimen / Unknown Venipuncture / Unknown 01/19/2025 11:48 AM EDT 01/19/2025 11:50 AM EDT us Sachin Garza MD LAB BLOOD ORDERABLES Final R esult Performing Organization Address City/[facility]/ZIP Co de Phone Number [facility] [address] [place] [address] * (ABNORMAL) Basic Metabolic Panel, Plasma (01/18/2025 11:54 PM EDT) Glucose, Plasma 134(H) 74 - 99 mg/dL 01/19/2025 12:45 AM EDT [facility] BUN, Plasma 24(H) 7 - 21 mg/dL 01/19/2025 12:45 AM EDT [facility] Creatinine, Plasma 1.34(H) 0.70 - 1.20 mg/dL 01/19/2025 12:45 AM EDT [facility] BUN/Creatinine Ratio 18 01/19/2025 12:45 AM EDT [facility] Sodium, Plasma 137 136 - 145 mmol/L 01/19/2025 12:45 AM EDT [facility] Potassium, Plasma 4.7 3.6 - 4.9 mmol/L 01/19/2025 12:45 AM EDT [facility] Chloride, Plasma 100 97 - 107 mmol/L 01/19/2025 12:45 AM EDT [facility] CO2, Plasma 24 22 - 29 mmol/L 01/19/2025 12:45 AM EDT [facility] Anion Gap 13 6 - 16 mmol/L 01/19/2025 12:45 AM EDT [facility] Total Calcium, Plasma 9.3 8.9 - 10.2 mg/dL 01/19/2025 12:45 AM EDT [facility] eGFRcr 70.8 mL/min/1.7 3m*2 01/19/2025 12:45 AM EDT [facility] Comment:Reported eGFRcr in m L/min/1.73m2 is based the CKD-EPI 2020 equation that does not use a race coefficient. Blood Venous blood specimen / Unknown Venipuncture / Unknown 01/18/2025 11:54 PM EDT 01/19/2025 12:16 AM EDT us Sachin Garza MD LAB BLOOD ORDERABLES Final R esult [facility] [address] [place] [address] * (ABNORMAL) CBC W/O Differential (01/18/2025 11:54 PM EDT) WBC Count 11.85(H) 3.70 - 10.30 10*3/uL LAB HEMATOLOGY METHOD 01/19/2025 12:20 AM EDT [facility] RBC Count 3.76(L) 4.60 - 6.10 10*6/uL LAB HEMATOLOGY METHOD 01/19/2025 12:20 AM EDT [facility] HGB 11.3(L) 13.7 - 17.5 g/dL LAB HEMATOLOGY METHOD 01/19/2025 12:20 AM EDT [facility] HCT 34.2(L) 40.0 - 51.0 % LAB HEMATOLOGY METHOD 01/19/2025 12:20 AM EDT [facility] Platelet Count 394(H) 155 - 369 10*3/uL LAB HEMATOLOGY METHOD 01/19/2025 12:20 AM EDT [facility] MCV 91 79 - 98 fL LAB HEMATOLOGY METHOD 01/19/2025 12:20 AM EDT [facility] MCH 30.1 26.0 - 32.0 pg LAB HEMATOLOGY METHOD 01/19/2025 12:20 AM EDT [facility] MCHC 33.0 30.7 - 35.5 g/dL LAB HEMATOLOGY METHOD 01/19/2025 12:20 AM EDT [facility] RDW 12.9 11.5 - 14.5 % LAB HEMATOLOGY METHOD 01/19/2025 12:20 AM EDT [facility] MPV 9.5 8.8 - 12.5 fL LAB HEMATOLOGY METHOD 01/19/2025 12:20 AM EDT [facility] nRBC 0.0 <=0.0 per 100 WBCs LAB HEMATOLOGY METHOD 01/19/2025 12:20 AM EDT [facility] Blood Venous blood specimen / Unknown Venipuncture / Unknown 01/18/2025 11:54 PM EDT 01/19/2025 12:13 AM EDT us Sachin Garza MD LAB BLOOD ORDERABLES Final R esult [facility] [address] [place] [address] * Fungal Culture, Sterile Body Fluid (NOT CSF) and SYEDA (01/18/2025 3:28 PM EDT) Culture No Fungal Growth at 3 Weeks 02/10/2025 8:37 AM EDT [facility] SYEDA No fungal elements seen 02/10/2025 8:37 AM EDT [facility] Joint Fluid Topography unknown / Unknown Non-blood Collection / Unknown 01/18/2025 3:28 PM EDT 01/18/2025 3:28 PM EDT us Sachin Garza MD LAB MICROBIOLOGY - GENERAL O RDERABLES Final Result Performing Organization Address City/[facility]/ZIP Co de Phone Number [facility] [address] [place] [address] * Anaerobic Culture (01/18/2025 3:28 PM EDT) Culture No anaerobes isolated 01/23/2025 7:50 AM EDT [facility] Joint Fluid Topography unknown / Unknown Non-blood Collection / Unknown 01/18/2025 3:28 PM EDT 01/18/2025 3:28 PM EDT us Sachin Garza MD LAB MICROBIOLOGY - GENERAL O RDERABLES Final Result Performing Organization Address [facility] Co de Phone Number [facility] [address] [place] [address] * (ABNORMAL) Body Fluid Culture and Gram Stain (01/18/2025 3:28 PM EDT) Culture Heavy Growth 01/20/2025 8:34 AM EDT [facility] Culture Methicillin-Resista nt Staphylococcus aureus(AA) 01/20/2025 8:34 AM EDT [facility] Comment: For susceptibility results refer to: - [id number] The organism value for this result has been updated. These results have been appended to the previously preliminary verified report. Edited result: Previously reported as Staphylococcus aureus on 01/19/2025 at 0933 EDT. Staphylococcus aureus has been updated to reportable. Gram Stain Result Numerous Polymorphonuclear leukocytes 01/20/2025 8:34 AM EDT [facility] Gram Stain Result No organisms seen 01/20/2025 8:34 AM EDT [facility] Joint Fluid Topography unknown / Unknown Non-blood Collection / Unknown 01/18/2025 3:28 PM EDT 01/18/2025 3:28 PM EDT us Sachin Garza MD LAB MICROBIOLOGY - GENERAL O RDERABLES Final Result Performing Organization Address [facility] Co de Phone Number [facility] [address] [place] [address] * Body fluid, cytospin, pathologist interpretation (01/18/2025 3:01 PM EDT) Specimen Type Joint Fluid LAB HEMATOLOGY METHOD 01/20/2025 4:29 PM EDT [facility] Specimen Source, Body Fluid Knee, Left LAB HEMATOLOGY METHOD 01/20/2025 4:29 PM EDT [facility] Clinical Diagnosis, Body Fluid Left lower extremity cellulitis LAB HEMATOLOGY METHOD 01/20/2025 4:29 PM EDT [facility] Interpretation , Body Fluid Bloody specimen Acute and chronic inflammatory cells Correlation with microbiology studies recommended A resident was involved in the service. I attest I examined the relevant preparations for the specimens and confirmed the diagnosis or interpretation. 01/20/2025 4:29 PM EDT [facility] Pathologist Signature, Body Fluid 01/20/2025 4:29 PM EDT [facility] Comment:Reviewed by: Stephanie conti MD LAB CP ASR DISCLAIMER Yes 01/20/2025 4:29 PM EDT [facility] Joint Fluid Structure of left knee region / Unknown 01/18/2025 3:01 PM EDT 01/18/2025 3:28 PM EDT us Sachin Garza MD LAB BODY FLUIDS AND STOOLS O RDERABLES Final Result Performing Organization Address [facility]/ZIP Co de Phone Number [facility] [address] [place] [address] * Joint Fluid Crystals (01/18/2025 3:01 PM EDT) Crystals, Joint Fluid No Crystals Seen No Crystals Present 01/18/2025 5:28 PM EDT [facility] Joint Fluid Structure of left knee region / Unknown 01/18/2025 3:01 PM EDT 01/18/2025 3:28 PM EDT us Sachin Garza MD LAB BODY FLUIDS AND STOOLS O RDERABLES Final Result [facility] [address] [place] [address] * (ABNORMAL) Body Fluid Cell Count w/ Diff (01/18/2025 3:01 PM EDT) Color, Body fluid Red LAB HEMATOLOGY METHOD 01/18/2025 11:05 PM EDT [facility] Appearance, Body fluid Cloudy(A) LAB HEMATOLOGY METHOD 01/18/2025 11:05 PM EDT [facility] Volume, Body fluid 3.5 cc LAB HEMATOLOGY METHOD 01/18/2025 11:05 PM EDT [facility] Fluid Container Specimen received in EDTA tube LAB HEMATOLOGY METHOD 01/18/2025 11:05 PM EDT [facility] Red Blood Cell Count, Body fluid 299,000 uL LAB HEMATOLOGY METHOD 01/18/2025 11:05 PM EDT [facility] Total Nucleated Cell Count, Body fluid 873 uL LAB HEMATOLOGY METHOD 01/18/2025 11:05 PM EDT [facility] Neutrophils %, Body fluid 17 % LAB HEMATOLOGY METHOD 01/18/2025 11:05 PM EDT [facility] Lymphocytes %, Body fluid 55 % LAB HEMATOLOGY METHOD 01/18/2025 11:05 PM EDT [facility] Monocytes/Macro phages %, Body fluid 27 % LAB HEMATOLOGY METHOD 01/18/2025 11:05 PM EDT [facility] Eosinophils %, Body fluid 1 % LAB HEMATOLOGY METHOD 01/18/2025 11:05 PM EDT [facility] Lining/Mesothel ial Cells %, Body fluid 0 % LAB HEMATOLOGY METHOD 01/18/2025 11:05 PM EDT [facility] Neutrophils Absolute (PMN), Body fluid 148 uL LAB HEMATOLOGY METHOD 01/18/2025 11:05 PM EDT [facility] Lymphocytes Absolute, Body fluid 480 uL LAB HEMATOLOGY METHOD 01/18/2025 11:05 PM EDT [facility] Monocytes/Macro phages Absolute, Body fluid 236 uL LAB HEMATOLOGY METHOD 01/18/2025 11:05 PM EDT [facility] Eosinophils Absolute, Body fluid 9 uL LAB HEMATOLOGY METHOD 01/18/2025 11:05 PM EDT [facility] Basophils Absolute, Body fluid 0 uL LAB HEMATOLOGY METHOD 01/18/2025 11:05 PM EDT [facility] Lining/Mesothel ial Cells Absolute, Body fluid 0 uL LAB HEMATOLOGY METHOD 01/18/2025 11:05 PM EDT [facility] Comment, Body fluid None LAB HEMATOLOGY METHOD 01/18/2025 11:05 PM EDT [facility] Comment:This is an appended report. These results have been appended to a previously preliminary verified report. Basophils %, Body fluid 0 % LAB HEMATOLOGY METHOD 01/18/2025 11:05 PM EDT [facility] Joint Fluid Structure of left knee region / Unknown 01/18/2025 3:01 PM EDT 01/18/2025 3:28 PM EDT us Sachin Garza MD LAB BODY FLUIDS AND STOOLS ORDERABLES NO SPECIMEN TYPE/SOURCE Final Result Performing Organization Address City/[facility] Co de Phone Number [facility] [address] [place] [address] * Body Fluid Culture and Gram Stain (01/18/2025 12:17 PM EDT) Culture No growth at day 4 2024 11:06 AM EDT [facility] Gram Stain Result No polymorphonuclear leukocytes seen 01/21/2025 11:06 AM EDT [facility] Gram Stain Result No organisms seen 01/21/2025 11:06 AM EDT [facility] Joint Fluid Synovial fluid specimen / Unknown Non-blood Collection / Unknown 01/18/2025 12:17 PM EDT 01/18/2025 3:24 PM EDT Comment:Pre-op diagnosis: Cellulitis of left lower extremity [L03.116] us Dwaine Das DO LAB MICROBIOLOGY - GENERAL ORDERABLES Final Result Performing Organization Address City/[facility]/ZIP Co de Phone Number [facility] [address] [place] [address] * Joint Infection Panel by PCR (01/18/2025 12:17 PM EDT) Anaerococcus prevotii/vaginalis PCR Result Not Detected Not Detected 01/18/2025 5:28 PM EDT [facility] Clostridium perfringens PCR Result Not Detected Not Detected 01/18/2025 5:28 PM EDT [facility] Cutibacterium avidum/granulosum PCR Result Not Detected Not Detected 01/18/2025 5:28 PM EDT [facility] Enterococcus faecalis PCR Result Not Detected Not Detected 01/18/2025 5:28 PM EDT [facility] Enterococcus faecium PCR Result Not Detected Not Detected 01/18/2025 5:28 PM EDT [facility] Finegoldia magna PCR Result Not Detected Not Detected 01/18/2025 5:28 PM EDT [facility] Parvimonas micra PCR Result Not Detected Not Detected 01/18/2025 5:28 PM EDT [facility] Peptoniphilus PCR Result Not Detected Not Detected 01/18/2025 5:28 PM EDT [facility] Peptostreptococcus anaerobius PCR Result Not Detected Not Detected 01/18/2025 5:28 PM EDT [facility] Staphylococcus aureus PCR Result Not Detected Not Detected 01/18/2025 5:28 PM EDT [facility] Staphylococcus lugdunensis PCR Result Not Detected Not Detected 01/18/2025 5:28 PM EDT [facility] Streptococcus spp PCR Result Not Detected Not Detected 01/18/2025 5:28 PM EDT [facility] Streptococcus agalactiae PCR Result Not Detected Not Detected 01/18/2025 5:28 PM EDT [facility] Streptococcus pneumoniae PCR Result Not Detected Not Detected 01/18/2025 5:28 PM EDT [facility] Streptococcus pyogenes PCR Result Not Detected Not Detected 01/18/2025 5:28 PM EDT [facility] Bacteroides fragilis PCR Result Not Detected Not Detected 01/18/2025 5:28 PM EDT [facility] Citrobacter PCR Result Not Detected Not Detected 01/18/2025 5:28 PM EDT [facility] Enterobacter cloacae complex PCR Result Not Detected Not Detected 01/18/2025 5:28 PM EDT [facility] Escherichia coli PCR Result Not Detected Not Detected 01/18/2025 5:28 PM EDT [facility] Haemophilus influenzae PCR Result Not Detected Not Detected 01/18/2025 5:28 PM EDT [facility] Kingella kingae PCR Result Not Detected Not Detected 01/18/2025 5:28 PM EDT [facility] Klebsiella aerogenes PCR Result Not Detected Not Detected 01/18/2025 5:28 PM EDT [facility] Klebsiella pneumoniae group PCR Result Not Detected Not Detected 01/18/2025 5:28 PM EDT [facility] Morganella morganii PCR Result Not Detected Not Detected 01/18/2025 5:28 PM EDT [facility] Neisseria gonorrhoeae PCR Result Not Detected Not Detected 01/18/2025 5:28 PM EDT [facility] Proteus spp PCR Result Not Detected Not Detected 01/18/2025 5:28 PM EDT [facility] Pseudomonas aeruginosa PCR Result Not Detected Not Detected 01/18/2025 5:28 PM EDT [facility] Salmonella spp PCR Result Not Detected Not Detected 01/18/2025 5:28 PM EDT [facility] Serratia marcescens PCR Result Not Detected Not Detected 01/18/2025 5:28 PM EDT [facility] Nelda PCR Result Not Detected Not Detected 01/18/2025 5:28 PM EDT [facility] Nelda albicans PCR Result Not Detected Not Detected 01/18/2025 5:28 PM EDT [facility] CTXM PCR Result Not Detected Not Detected 01/18/2025 5:28 PM EDT [facility] IMP PCR Result Not Detected Not Detected 01/18/2025 5:28 PM EDT [facility] KPC PCR Result Not Detected Not Detected 01/18/2025 5:28 PM EDT [facility] mecA/C and MREJ (MRSA) PCR Result Not Detected Not Detected 01/18/2025 5:28 PM EDT [facility] NDM PCR Result Not Detected Not Detected 01/18/2025 5:28 PM EDT [facility] OXA-48-like PCR Result Not Detected Not Detected 01/18/2025 5:28 PM EDT [facility] Jarret/B PCR Result Not Detected Not Detected 01/18/2025 5:28 PM EDT [facility] VIM PCR Result Not Detected Not Detected 01/18/2025 5:28 PM EDT [facility] Joint Fluid Synovial fluid specimen / Unknown Non-blood Collection / Unknown 01/18/2025 12:17 PM EDT 01/18/2025 3:24 PM EDT Narrative [facility] - 01/18/2025 5:28 PM EDT This [...] MICROBIOLOGY - GENERAL O RDERABLES Final Result [facility] [address] [place] [address] * (ABNORMAL) Tissue Culture and Gram Stain (01/18/2025 10:00 AM EDT) Culture Heavy Growth 01/20/2025 8:34 AM EDT [facility] Culture Methicillin-Resista nt Staphylococcus aureus(AA) JOVANI 01/20/2025 8:34 AM EDT [facility] Comment: The organism value for this result has been updated. These results have been appended to the previously preliminary verified report. Edited result: Previously reported as Staphylococcus aureus on 01/19/2025 at 0914 EDT. Staphylococcus aureus has been updated to reportable. Gram Stain Result Numerous Polymorphonuclear leukocytes(A) 01/20/2025 8:34 AM EDT [facility] Gram Stain Result Rare Gram positive cocci in clusters(A) 01/20/2025 8:34 AM EDT [facility] Tissue Topography unknown / Unknown 01/18/2025 [...] LAB MICROBIOLOGY - GENERAL ORDERABLES Final Result [facility] [address] [place] [address] * Anaerobic Culture (01/18/2025 10:00 AM EDT) Culture No anaerobes isolated 01/23/2025 7:50 AM EDT [facility] Tissue Topography unknown / Unknown 01/18/2025 10:00 AM EDT 01/18/2025 3:26 PM EDT Comment:Pre-op diagnosis: Cellulitis of left lower extremity [L03.116] us Dwaine Das DO LAB MICROBIOLOGY - GENERAL ORDERABLES Final Result Performing Organization Address City/[facility]/ZIP Co de Phone Number [facility] [address] [place] [address] * Body fluid, cytospin, pathologist interpretation (01/18/2025 9:57 AM EDT) Specimen Type Cyst Fluid LAB HEMATOLOGY METHOD 01/20/2025 4:28 PM EDT [facility] Specimen Source, Body Fluid Other (specify site) LAB HEMATOLOGY METHOD 01/20/2025 4:28 PM EDT [facility] Clinical Diagnosis, Body Fluid Left lower extremity cyst fluid LAB HEMATOLOGY METHOD 01/20/2025 4:28 PM EDT [facility] Interpretation , Body Fluid No evidence of malignancy Bloody specimen Acute inflammatory cells Correlation with microbiology studies recommended A resident was involved in the service. I attest I examined the relevant preparations for the specimens and confirmed the diagnosis or interpretation. 01/20/2025 4:28 PM EDT [facility] Pathologist Signature, Body Fluid 01/20/2025 4:28 PM EDT [facility] Comment:Reviewed by: Stephanie conti MD LAB CP ASR DISCLAIMER Yes 01/20/2025 4:28 PM EDT [facility] Cyst Fluid Topography unknown / Unknown 01/18/2025 9:57 AM EDT 01/18/2025 3:19 PM EDT us Dwaine Das DO LAB BODY FLUIDS AND STOOLS ORDERABLES Final Result Performing Organization Address City/[facility]/ZIP Co de Phone Number [facility] [address] [place] [address] * (ABNORMAL) Body Fluid Cell Count w/ Diff (01/18/2025 9:57 AM EDT) Color, Body fluid Red LAB HEMATOLOGY METHOD 01/18/2025 7:13 PM EDT [facility] Appearance, Body fluid Cloudy(A) LAB HEMATOLOGY METHOD 01/18/2025 7:13 PM EDT [facility] Volume, Body fluid 10.0 cc LAB HEMATOLOGY METHOD 01/18/2025 7:13 PM EDT [facility] Fluid Container Specimen received in miscellaneous container LAB HEMATOLOGY METHOD 01/18/2025 7:13 PM EDT [facility] Red Blood Cell Count, Body fluid 240,000 uL LAB HEMATOLOGY METHOD 01/18/2025 7:13 PM EDT [facility] Comment:Clot present, may af fect results. Test performed by manual method. Total Nucleated Cell Count, Body fluid 83,500 uL LAB HEMATOLOGY METHOD 01/18/2025 7:13 PM EDT [facility] Comment:Clot present, may af fect results. Test performed by manual method. Neutrophils %, Body fluid 98 % LAB HEMATOLOGY METHOD 01/18/2025 7:13 PM EDT [facility] Lymphocytes %, Body fluid 2 % LAB HEMATOLOGY METHOD 01/18/2025 7:13 PM EDT [facility] Monocytes/Macr ophages %, Body fluid 0 % LAB HEMATOLOGY METHOD 01/18/2025 7:13 PM EDT [facility] Eosinophils %, Body fluid 0 % LAB HEMATOLOGY METHOD 01/18/2025 7:13 PM EDT [facility] Lining/Mesothe lial Cells %, Body fluid 0 % LAB HEMATOLOGY METHOD 01/18/2025 7:13 PM EDT [facility] Neutrophils Absolute (PMN), Body fluid 81,830 uL LAB HEMATOLOGY METHOD 01/18/2025 7:13 PM EDT [facility] Lymphocytes Absolute, Body fluid 1,670 uL LAB HEMATOLOGY METHOD 01/18/2025 7:13 PM EDT [facility] Monocytes/Macr ophages Absolute, Body fluid 0 uL LAB HEMATOLOGY METHOD 01/18/2025 7:13 PM EDT [facility] Eosinophils Absolute, Body fluid 0 uL LAB HEMATOLOGY METHOD 01/18/2025 7:13 PM EDT [facility] Basophils Absolute, Body fluid 0 uL LAB HEMATOLOGY METHOD 01/18/2025 7:13 PM EDT [facility] Lining/Mesothe lial Cells Absolute, Body fluid 0 uL LAB HEMATOLOGY METHOD 01/18/2025 7:13 PM EDT [facility] Comment, Body fluid Bacteria seen. LAB HEMATOLOGY METHOD 01/18/2025 7:13 PM EDT [facility] Basophils %, Body fluid 0 % LAB HEMATOLOGY METHOD 01/18/2025 7:13 PM EDT [facility] Cyst Fluid Topography unknown / Unknown 01/18/2025 9:57 AM EDT 01/18/2025 3:19 PM EDT Comment:Pre-op diagnosis: Cellulitis of left lower extremity [L03.116] Dwaine Crow LAB BODY FLUIDS AND STOOLS ORDERABLES NO SPECIMEN TYPE/SOURCE Final Result Performing Organization Address [facility] Co de Phone Number [facility] [address] [place] [address] * Fungal Culture, Sterile Body Fluid (NOT CSF) and SYEDA (01/18/2025 9:57 AM EDT) Culture No Fungal Growth at 3 Weeks 02/10/2025 8:37 AM EDT [facility] SYEDA No fungal elements seen 02/10/2025 8:37 AM EDT [facility] Cyst Fluid Topography unknown / Unknown 01/18/2025 9:57 AM EDT 01/18/2025 3:26 PM EDT Comment:Pre-op diagnosis: Cellulitis of left lower extremity [L03.116] Dwaine Das DO LAB MICROBIOLOGY - GENERAL ORDERABLES Final Result Performing Organization Address [facility]/ZIP Co de Phone Number [facility] [address] [place] [address] * (ABNORMAL) Body Fluid Culture and Gram Stain (01/18/2025 9:57 AM EDT) Culture Heavy Growth 01/20/2025 8:34 AM EDT [facility] Culture Methicillin-Resista nt Staphylococcus aureus(AA) 01/20/2025 8:34 AM EDT [facility] Comment: For susceptibility results refer to: - [id number] The organism value for this result has been updated. These results have been appended to the previously preliminary verified report. Edited result: Previously reported as Staphylococcus aureus on 01/19/2025 at 0916 EDT. Staphylococcus aureus has been updated to reportable. Gram Stain Result Numerous Polymorphonuclear leukocytes(A) 01/20/2025 8:34 AM EDT [facility] Gram Stain Result Moderate Gram positive cocci in clusters(A) 01/20/2025 8:34 AM EDT [facility] Cyst Fluid Topography unknown / Unknown 01/18/2025 9:57 AM EDT 01/18/2025 3:26 PM EDT Comment:Pre-op diagnosis: Cellulitis of left lower extremity [L03.116] [facility] MICROBIOLOGY - GENERAL ORDERABLES Final Result Performing Organization Address City/[facility] de Phone Number [facility] [address] [place] [address] * Anaerobic Culture (01/18/2025 9:57 AM EDT) Culture No anaerobes isolated 01/23/2025 7:50 AM EDT [facility] Cyst Fluid Topography unknown / Unknown 01/18/2025 9:57 AM EDT 01/18/2025 3:26 PM EDT Comment:Pre-op diagnosis: Cellulitis of left lower extremity [L03.116] [facility] MICROBIOLOGY - GENERAL ORDERABLES Final Result Performing Organization Address City/[facility]/ZIP Co de Phone Number [facility] [address] [place] [address] * Methicillin Resistant Staphylococcus aureus (MRSA) by PCR (01/18/2025 7:43 AM EDT) Methicillin Resistant Staphylococcus aureus (MRSA) by PCR Not Detected Not Detected 01/18/2025 9:36 AM EDT [facility] Swab Both anterior nares / Unknown Non-blood Collection / Unknown 01/18/2025 7:43 AM EDT 01/18/2025 8:19 AM EDT Narrative [facility] - 01/18/2025 9:36 AM EDT This [...] MICROBIOLOGY - GENERAL O RDERABLES Final Result [facility] [address] [place] [address] * (ABNORMAL) Basic metabolic panel (01/18/2025 12:18 AM EDT) Glucose, Plasma 105(H) 74 - 99 mg/dL 01/18/2025 1:30 AM EDT [facility] BUN, Plasma 14 7 - 21 mg/dL 01/18/2025 1:30 AM EDT [facility] Creatinine, Plasma 0.80 0.70 - 1.20 mg/dL 01/18/2025 1:30 AM EDT [facility] BUN/Creatinine Ratio 18 01/18/2025 1:30 AM EDT [facility] Sodium, Plasma 137 136 - 145 mmol/L 01/18/2025 1:30 AM EDT [facility] Potassium, Plasma 4.3 3.6 - 4.9 mmol/L 01/18/2025 1:30 AM EDT [facility] Chloride, Plasma 100 97 - 107 mmol/L 01/18/2025 1:30 AM EDT [facility] CO2, Plasma 26 22 - 29 mmol/L 01/18/2025 1:30 AM EDT [facility] Anion Gap 11 6 - 16 mmol/L 01/18/2025 1:30 AM EDT [facility] Total Calcium, Plasma 9.0 8.9 - 10.2 mg/dL 01/18/2025 1:30 AM EDT [facility] eGFRcr 118.4 mL/min/1.7 3m*2 01/18/2025 1:30 AM EDT [facility] Comment:Reported eGFRcr in m L/min/1.73m2 is based the CKD-EPI 2020 equation that does not use a race coefficient. Blood Venous blood specimen / Unknown Venipuncture / Unknown 01/18/2025 12:18 AM EDT 01/18/2025 12:27 AM EDT us Sachin Garza MD LAB BLOOD ORDERABLES Final R esult [facility] [address] [place] [address] * (ABNORMAL) CBC W/O Differential (01/18/2025 12:18 AM EDT) WBC Count 8.77 3.70 - 10.30 10*3/uL LAB HEMATOLOGY METHOD 01/18/2025 12:36 AM EDT [facility] RBC Count 3.94(L) 4.60 - 6.10 10*6/uL LAB HEMATOLOGY METHOD 01/18/2025 12:36 AM EDT [facility] HGB 11.7(L) 13.7 - 17.5 g/dL LAB HEMATOLOGY METHOD 01/18/2025 12:36 AM EDT [facility] HCT 37.1(L) 40.0 - 51.0 % LAB HEMATOLOGY METHOD 01/18/2025 12:36 AM EDT [facility] Platelet Count 347 155 - 369 10*3/uL LAB HEMATOLOGY METHOD 01/18/2025 12:36 AM EDT [facility] MCV 94 79 - 98 fL LAB HEMATOLOGY METHOD 01/18/2025 12:36 AM EDT [facility] MCH 29.7 26.0 - 32.0 pg LAB HEMATOLOGY METHOD 01/18/2025 12:36 AM EDT [facility] MCHC 31.5 30.7 - 35.5 g/dL LAB HEMATOLOGY METHOD 01/18/2025 12:36 AM EDT [facility] RDW 13.1 11.5 - 14.5 % LAB HEMATOLOGY METHOD 01/18/2025 12:36 AM EDT [facility] MPV 9.5 8.8 - 12.5 fL LAB HEMATOLOGY METHOD 01/18/2025 12:36 AM EDT [facility] nRBC 0.0 <=0.0 per 100 WBCs LAB HEMATOLOGY METHOD 01/18/2025 12:36 AM EDT [facility] Blood Venous blood specimen / Unknown Venipuncture / Unknown 01/18/2025 12:18 AM EDT 01/18/2025 12:29 AM EDT Sachin Garza MD LAB BLOOD ORDERABLES Final R esult Performing Organization Address [facility] Co de Phone Number [facility] [address] [place] [address] * Vancomycin, Peak, Plasma Please draw ~2 hours after 1000 dose of vancomycin on Monday finishes infusing. Consider obtaining level via peripheral stick. If peripheral stick is not feasible, please ensure that line is flushed well prior to drawing l... (01/17/2025 2:03 PM EDT) Vancomycin, Peak, Plasma 22.0 20.0 - 40.0 ug/mL 01/17/2025 3:01 PM EDT [facility] Blood Venous blood specimen / Unknown Venipuncture / Unknown 01/17/2025 2:03 PM EDT 01/17/2025 2:32 PM EDT Narrative [facility] - 01/17/2025 3:01 PM EDT Therapeutic Peak level: 20-40ug/mL Supra-therapeutic Peak level: >40 ug/mL Sachin Garza MD LAB BLOOD ORDERABLES Final R esult Performing Organization Address [facility] de Phone Number [facility] [address] [place] [address] * Vancomycin, Trough, Plasma Please draw ~30 minutes prior to dose due at 1000 on Monday. Please do NOT hold dose awaiting level to return. Consider obtaining level via peripheral stick. If peripheral stick is not feasible, please ensure that line ... (01/17/2025 9:53 AM EDT) Vancomycin, Trough, Plasma 12.5 10.0 - 20.0 ug/mL 01/17/2025 10:24 AM EDT [facility] Blood Venous blood specimen / Unknown Venipuncture / Unknown 01/17/2025 9:53 AM EDT 01/17/2025 9:57 AM EDT Narrative [facility] - 01/17/2025 10:24 AM EDT Therapeutic Trough level: 10-20ug/mL Supra-therapeutic Trough level: >20 ug/mL us Sachin Garza MD LAB BLOOD ORDERABLES Final R esult [facility] [address] [place] [address] * (ABNORMAL) Basic metabolic panel (01/17/2025 4:05 AM EDT) Glucose, Plasma 117(H) 74 - 99 mg/dL 01/17/2025 5:16 AM EDT [facility] BUN, Plasma 13 7 - 21 mg/dL 01/17/2025 5:16 AM EDT [facility] Creatinine, Plasma 0.75 0.70 - 1.20 mg/dL 01/17/2025 5:16 AM EDT [facility] BUN/Creatinine Ratio 17 01/17/2025 5:16 AM EDT [facility] Sodium, Plasma 135(L) 136 - 145 mmol/L 01/17/2025 5:16 AM EDT [facility] Potassium, Plasma 4.5 3.6 - 4.9 mmol/L 01/17/2025 5:16 AM EDT [facility] Chloride, Plasma 100 97 - 107 mmol/L 01/17/2025 5:16 AM EDT [facility] CO2, Plasma 25 22 - 29 mmol/L 01/17/2025 5:16 AM EDT [facility] Anion Gap 10 6 - 16 mmol/L 01/17/2025 5:16 AM EDT [facility] Total Calcium, Plasma 9.1 8.9 - 10.2 mg/dL 01/17/2025 5:16 AM EDT [facility] eGFRcr 120.7 mL/min/1.7 3m*2 01/17/2025 5:16 AM EDT [facility] Comment:Reported eGFRcr in m L/min/1.73m2 is based the CKD-EPI 2020 equation that does not use a race coefficient. Blood Venous blood specimen / Unknown Venipuncture / Unknown 01/17/2025 4:05 AM EDT 01/17/2025 4:35 AM EDT us Sachin Garza MD LAB BLOOD ORDERABLES Final R esult [facility] [address] [place] [address] * [place] Extremity Limited MSK or Soft [...] - 99 mg/dL 01/16/2025 5:15 AM EDT [facility] BUN, Plasma 12 7 - 21 mg/dL 01/16/2025 5:15 AM EDT [facility] Creatinine, Plasma 0.66(L) 0.70 - 1.20 mg/dL 01/16/2025 5:15 AM EDT [facility] BUN/Creatinine Ratio 18 01/16/2025 5:15 AM EDT [facility] Sodium, Plasma 136 136 - 145 mmol/L 01/16/2025 5:15 AM EDT [facility] Potassium, Plasma 4.5 3.6 - 4.9 mmol/L 01/16/2025 5:15 AM EDT [facility] Chloride, Plasma 100 97 - 107 mmol/L 01/16/2025 5:15 AM EDT [facility] CO2, Plasma 26 22 - 29 mmol/L 01/16/2025 5:15 AM EDT [facility] Anion Gap 10 6 - 16 mmol/L 01/16/2025 5:15 AM EDT [facility] Total Calcium, Plasma 8.8(L) 8.9 - 10.2 mg/dL 01/16/2025 5:15 AM EDT [facility] eGFRcr 125.4 mL/min/1.7 3m*2 01/16/2025 5:15 AM EDT [facility] Comment:Reported eGFRcr in m L/min/1.73m2 is based the CKD-EPI 2020 equation that does not use a race coefficient. Blood Venous blood specimen / Unknown Venipuncture / Unknown 01/16/2025 4:31 AM EDT 01/16/2025 4:46 AM EDT us Jeffrey Matute MD LAB BLOOD ORDERABLES Final Re sult Performing Organization Address City/[facility]/ZIP Co de Phone Number [facility] [address] [place] [address] * Prothrombin Time/INR (01/16/2025 4:31 AM EDT) Prothrombin Time 12.9 12.0 - 14.3 sec 01/16/2025 4:46 AM EDT [facility] INR 1.0 0.9 - 1.1 01/16/2025 4:46 AM EDT [facility] Blood Venous blood specimen / Unknown Venipuncture / Unknown 01/16/2025 4:31 AM EDT 01/16/2025 4:33 AM EDT Narrative [facility] - 01/16/2025 4:46 AM EDT OPTIMAL INR RANGES FOR PATIENT ON ORAL ANTICOAGULANT THERAPY Prevention of venous thromboembolism INR 2.0 to 3.0 In patients with heart disease: Atrial fibrillation INR 2.0 to 3.0 Valvular heart disease INR 2.0 to 3.0 Tissue heart valves INR 2.0 to 3.0 Mechanical prosthetic valves INR 2.5 to 3.5 Prevention of recurrent CA INR 2.5 to 3.5 us Jeffrey Matute MD LAB BLOOD ORDERABLES Final Re sult [facility] [address] [place] [address] * (ABNORMAL) CBC W/O Differential (01/16/2025 4:31 AM EDT) WBC Count 17.78(H) 3.70 - 10.30 10*3/uL LAB HEMATOLOGY METHOD 01/16/2025 4:36 AM EDT [facility] RBC Count 4.14(L) 4.60 - 6.10 10*6/uL LAB HEMATOLOGY METHOD 01/16/2025 4:36 AM EDT [facility] HGB 12.4(L) 13.7 - 17.5 g/dL LAB HEMATOLOGY METHOD 01/16/2025 4:36 AM EDT [facility] HCT 37.6(L) 40.0 - 51.0 % LAB HEMATOLOGY METHOD 01/16/2025 4:36 AM EDT [facility] Platelet Count 359 155 - 369 10*3/uL LAB HEMATOLOGY METHOD 01/16/2025 4:36 AM EDT [facility] MCV 91 79 - 98 fL LAB HEMATOLOGY METHOD 01/16/2025 4:36 AM EDT [facility] MCH 30.0 26.0 - 32.0 pg LAB HEMATOLOGY METHOD 01/16/2025 4:36 AM EDT [facility] MCHC 33.0 30.7 - 35.5 g/dL LAB HEMATOLOGY METHOD 01/16/2025 4:36 AM EDT [facility] RDW 13.2 11.5 - 14.5 % LAB HEMATOLOGY METHOD 01/16/2025 4:36 AM EDT [facility] MPV 9.3 8.8 - 12.5 fL LAB HEMATOLOGY METHOD 01/16/2025 4:36 AM EDT [facility] nRBC 0.0 <=0.0 per 100 WBCs LAB HEMATOLOGY METHOD 01/16/2025 4:36 AM EDT [facility] Blood Venous blood specimen / Unknown Venipuncture / Unknown 01/16/2025 4:31 AM EDT 01/16/2025 4:33 AM EDT us Jeffrey Matute MD LAB BLOOD ORDERABLES Final Re sult [facility] [address] [place] [address] * CT Tibia Fibula Left w IV [...] at day 5 01/21/2025 2:02 AM EDT [facility] Blood Venous blood specimen / Unknown Venipuncture / Unknown 01/16/2025 12:24 AM EDT 01/16/2025 1:12 AM EDT Narrative [facility] - 01/21/2025 2:02 AM EDT Low blood volume submitted, results may be compromised Gus Vigil APRN LAB MICROBIOLOGY - GENER AL ORDERABLES Final Result [facility] [address] [place] [address] * XR Chest 1 View (01/15/2025 11:21 [...] MD on 01/15/2025 11:40 PM Gus Vigil [employer]KEEP[employer] SUPERVISOR IMG XR PROCEDURES Final Result * [...] osseous abnormality. Left knee/tib-fib: Partially visualized intramedullary akrmen and screw fixation of the femur,no evidence [...] MD on 01/15/2025 11:40 PM Gus Vigil [employer] SUPERVISOR IMG XR PROCEDURES Final Result * [...] ORDERA BLES Final Result Performing Organization Address City/[facility]/ZIP Co de Phone Number BLOOD BANK [address] [place] [address], [place] * ECG Adult (01/15/2025 10:46 PM EDT) EKG DIAGNOSIS CLASS Normal MUSE ECG Ventricular Rate 92 BPM MUSE ECG Atrial Rate 92 BPM MUSE ECG NC Interval 122 ms MUSE ECG QRSD Interval 102 ms MUSE ECG QT Interval 350 ms MUSE ECG QTC Interval 432 ms MUSE ECG P [place] 56 degrees MUSE ECG R [place] 44 degrees MUSE ECG T Wave [place] 57 degrees MUSE ECG Diagnosis Normal sinus rhythm MUSE ECG Diagnosis Normal ECG MUSE ECG Diagnosis MUSE ECG Diagnosis Confirmed by Richard Mccracken ([id number]) on 01/16/2025 8:55:10 PM MUSE ECG 01/15/2025 10:4 6 PM EDT 01/16/2025 8:55 PM EDT Ye Navarro MD ECG ORDERABLES Final Resu lt Performing Organization Address [facility] Co de Phone Number MUSE ECG * Blood Culture (Aerobic/Anaerobet Set) (01/15/2025 10:11 PM EDT) Culture No growth at day 5 01/20/2025 11:01 PM EDT [facility] Blood Structure of antecubital vein / Unknown Venipuncture / Unknown 01/15/2025 10:11 PM EDT 01/15/2025 10:19 PM EDT Narrative [facility] - 01/20/2025 11:01 PM EDT Low blood volume submitted, results may be compromised Gus Vigil APRN LAB MICROBIOLOGY - GENER AL ORDERABLES Final Result [facility] [address] [place] [address] * (ABNORMAL) Sed rate, automated (01/15/2025 10:11 PM EDT) Pathologist [facility] Sedimentation Rate 46(H) <15 mm/hr 2024 10:34 PM EDT [facility] Blood Venous blood specimen / Unknown Venipuncture / Unknown 01/15/2025 10:11 PM EDT 01/15/2025 10:12 PM EDT [facility] [place]ial[place] BOOKKEEPERS SUPERVISOR LAB BLOOD ORDERABLES Fin al Result Performing Organization Address [facility] Co de Phone Number [facility] [address] [place] [address] * (ABNORMAL) C-Reactive protein (01/15/2025 10:11 PM EDT) [facility] CRP, Plasma 91.9(H) <=8.0 mg/L 01/15/2025 10:32 PM EDT [facility] Blood Venous blood specimen / Unknown Venipuncture / Unknown 01/15/2025 10:11 PM EDT 01/15/2025 10:12 PM EDT Narrative [facility] - 01/15/2025 10:32 PM EDT This CRP test is appropriate for assessment of infection, systemic inflammation and/or tissue injury. To assess cardiovascular disease risk order high sensitivity CRP (CRPH). [facility] [place] Niall [employer]KEEPERS SUPERVISOR LAB BLOOD ORDERABLES Fin al Result Performing Organization Address City/[facility]/ZIP Co de Phone Number [facility] [address] [place] [address] * (ABNORMAL) Blood gas panel, venous (01/15/2025 10:11 PM EDT) pH, Venous 7.39 7.32 - 7.43 LAB HEMATOLOGY METHOD 01/15/2025 10:14 PM EDT [facility] pCO2, Venous 47 40 - 55 mmHg LAB HEMATOLOGY METHOD 01/15/2025 10:14 PM EDT [facility] pO2, Venous 34 25 - 40 mmHg LAB HEMATOLOGY METHOD 01/15/2025 10:14 PM EDT [facility] SO2, Measured, Venous 68 65 - 80 % LAB HEMATOLOGY METHOD 01/15/2025 10:14 PM EDT [facility] Base Excess, Venous 2.8 -2.0 - 3.0 mmol/L LAB HEMATOLOGY METHOD 01/15/2025 10:14 PM EDT [facility] Bicarbonate, Calculated, Venous 29(H) 22 - 26 mmol/L LAB HEMATOLOGY METHOD 01/15/2025 10:14 PM EDT [facility] Hematocrit, Whole Blood 40.4 40.0 - 51.0 % LAB HEMATOLOGY METHOD 01/15/2025 10:14 PM EDT [facility] Sodium, Whole Blood 135(L) 136 - 145 mmol/L LAB HEMATOLOGY METHOD 01/15/2025 10:14 PM EDT [facility] Potassium, Whole Blood 4.3 3.6 - 4.9 mmol/L LAB HEMATOLOGY METHOD 01/15/2025 10:14 PM EDT [facility] Chloride, Whole Blood 99 97 - 107 mmol/L LAB HEMATOLOGY METHOD 01/15/2025 10:14 PM EDT [facility] Glucose, Whole Blood 110(H) 74 - 99 mg/dL LAB HEMATOLOGY METHOD 01/15/2025 10:14 PM EDT [facility] Lactate, Venous, Whole Blood 1.1 0.5 - 2.2 mmol/L LAB HEMATOLOGY METHOD 01/15/2025 10:14 PM EDT [facility] Ionized Calcium, Whole Blood 4.6 4.6 - 5.1 mg/dL LAB HEMATOLOGY METHOD 01/15/2025 10:14 PM EDT [facility] Blood Venous blood specimen / Unknown Venipuncture / Unknown 01/15/2025 10:11 PM EDT 01/15/2025 10:12 PM EDT us Gus Vigil APRN LAB BLOOD ORDERABLES Fin al Result [facility] [address] [place] [address] * (ABNORMAL) CMP (01/15/2025 10:11 PM EDT) [facility] Glucose, Plasma 116(H) 74 - 99 mg/dL 01/15/2025 10:32 PM EDT [facility] BUN, Plasma 14 7 - 21 mg/dL 01/15/2025 10:32 PM EDT [facility] Creatinine, Plasma 0.78 0.70 - 1.20 mg/dL 01/15/2025 10:32 PM EDT [facility] BUN/Creatinine Ratio 18 01/15/2025 10:32 PM EDT [facility] Sodium, Plasma 134(L) 136 - 145 mmol/L 01/15/2025 10:32 PM EDT [facility] Potassium, Plasma 4.6 3.6 - 4.9 mmol/L 01/15/2025 10:32 PM EDT [facility] Chloride, Plasma 97 97 - 107 mmol/L 01/15/2025 10:32 PM EDT [facility] CO2, Plasma 24 22 - 29 mmol/L 01/15/2025 10:32 PM EDT [facility] Anion Gap 13 6 - 16 mmol/L 01/15/2025 10:32 PM EDT [facility] Total Calcium, Plasma 8.7(L) 8.9 - 10.2 mg/dL 01/15/2025 10:32 PM EDT [facility] Total Protein 6.5 6.3 - 7.9 g/dL 01/15/2025 10:32 PM EDT [facility] Albumin, Plasma 3.7 3.5 - 5.2 g/dL 01/15/2025 10:32 PM EDT [facility] AST, Plasma 23 10 - 50 U/L 01/15/2025 10:32 PM EDT [facility] ALT, Plasma 52(H) 10 - 50 U/L 01/15/2025 10:32 PM EDT [facility] Alkaline Phosphatase, Plasma 124(H) 40 - 115 U/L 01/15/2025 10:32 PM EDT [facility] Total Bilirubin, Plasma 0.3 0.2 - 1.1 mg/dL 01/15/2025 10:32 PM EDT [facility] eGFRcr 119.3 mL/min/1.7 3m*2 01/15/2025 10:32 PM EDT [facility] Comment:Reported eGFRcr in m L/min/1.73m2 is based the CKD-EPI 2020 equation that does not use a race coefficient. Blood Venous blood specimen / Unknown Venipuncture / Unknown 01/15/2025 10:11 PM EDT 01/15/2025 10:12 PM EDT [facility]Ad[facility] AvistaN LAB BLOOD ORDERABLES Fin al Result Performing Organization Address City/[facility] Co de Phone Number [facility] [address] [place] [address] * PT-INR (01/15/2025 10:11 PM EDT) Prothrombin Time 12.5 12.0 - 14.3 sec 01/15/2025 10:28 PM EDT [facility] INR 1.0 0.9 - 1.1 01/15/2025 10:28 PM EDT [facility] Blood Venous blood specimen / Unknown Venipuncture / Unknown 01/15/2025 10:11 PM EDT 01/15/2025 10:12 PM EDT Narrative [facility] - 01/15/2025 10:28 PM EDT OPTIMAL INR RANGES FOR PATIENT ON ORAL ANTICOAGULANT THERAPY Prevention of venous thromboembolism INR 2.0 to 3.0 In patients with heart disease: Atrial fibrillation INR 2.0 to 3.0 Valvular heart disease INR 2.0 to 3.0 Tissue heart valves INR 2.0 to 3.0 Mechanical prosthetic valves INR 2.5 to 3.5 Prevention of recurrent CA INR 2.5 to 3.5 [facility] Vigil APRN LAB BLOOD ORDERABLES Fin al Result Performing Organization Address [facility] Co de Phone Number [facility] [address] [place] [address] * (ABNORMAL) CBC w/diff (01/15/2025 10:11 PM EDT) WBC Count 19.24(H) 3.70 - 10.30 10*3/uL LAB HEMATOLOGY METHOD 01/15/2025 10:14 PM EDT [facility] RBC Count 4.33(L) 4.60 - 6.10 10*6/uL LAB HEMATOLOGY METHOD 01/15/2025 10:14 PM EDT [facility] HGB 13.0(L) 13.7 - 17.5 g/dL LAB HEMATOLOGY METHOD 01/15/2025 10:14 PM EDT [facility] HCT 39.3(L) 40.0 - 51.0 % LAB HEMATOLOGY METHOD 01/15/2025 10:14 PM EDT [facility] Platelet Count 383(H) 155 - 369 10*3/uL LAB HEMATOLOGY METHOD 01/15/2025 10:14 PM EDT [facility] MCV 91 79 - 98 fL LAB HEMATOLOGY METHOD 01/15/2025 10:14 PM EDT [facility] MCH 30.0 26.0 - 32.0 pg LAB HEMATOLOGY METHOD 01/15/2025 10:14 PM EDT [facility] MCHC 33.1 30.7 - 35.5 g/dL LAB HEMATOLOGY METHOD 01/15/2025 10:14 PM EDT [facility] RDW 13.2 11.5 - 14.5 % LAB HEMATOLOGY METHOD 01/15/2025 10:14 PM EDT [facility] MPV 9.2 8.8 - 12.5 fL LAB HEMATOLOGY METHOD 01/15/2025 10:14 PM EDT [facility] nRBC 0.0 <=0.0 per 100 WBCs LAB HEMATOLOGY METHOD 01/15/2025 10:14 PM EDT [facility] Differential Type Automated LAB HEMATOLOGY METHOD 01/15/2025 10:14 PM EDT [facility] Neutrophils % 78 % LAB HEMATOLOGY METHOD 01/15/2025 10:14 PM EDT [facility] Lymphocytes % 12 % LAB HEMATOLOGY METHOD 01/15/2025 10:14 PM EDT [facility] Monocytes % 8 % LAB HEMATOLOGY METHOD 01/15/2025 10:14 PM EDT [facility] Eosinophils % 1 % LAB HEMATOLOGY METHOD 01/15/2025 10:14 PM EDT [facility] Basophils % 0 % LAB HEMATOLOGY METHOD 01/15/2025 10:14 PM EDT [facility] Immature Granulocytes % 1 % LAB HEMATOLOGY METHOD 01/15/2025 10:14 PM EDT [facility] Neutrophils Absolute 15.11(H) 1.60 - 6.10 10*3/uL LAB HEMATOLOGY METHOD 01/15/2025 10:14 PM EDT [facility] Lymphocytes Absolute 2.34 1.20 - 3.90 10*3/uL LAB HEMATOLOGY METHOD 01/15/2025 10:14 PM EDT [facility] Monocytes Absolute 1.46(H) 0.30 - 0.90 10*3/uL LAB HEMATOLOGY METHOD 01/15/2025 10:14 PM EDT [facility] Eosinophils Absolute 0.13 0.00 - 0.50 10*3/uL LAB HEMATOLOGY METHOD 01/15/2025 10:14 PM EDT [facility] Basophils Absolute 0.06 0.00 - 0.10 10*3/uL LAB HEMATOLOGY METHOD 01/15/2025 10:14 PM EDT [facility] Immature Granulocytes Absolute 0.14(H) 0.00 - 0.06 10*3/uL LAB HEMATOLOGY METHOD 01/15/2025 10:14 PM EDT [facility] Blood Venous blood specimen / Unknown Venipuncture / Unknown 01/15/2025 10:11 PM EDT 01/15/2025 10:12 PM EDT Narrative [facility] - 01/15/2025 10:14 PM EDT Therapeutic decision making should be based on absolute values, rather than percentages. Gus Vigil APRN LAB BLOOD ORDERABLES Fin al Result [facility] [address] [place] [address] documented in this encounter Visit Diagnoses Diagnosis Cellulitis of leg, left- Primary Sepsis following procedure, initial encounter ([facility]) Cellulitis of left lower extremity Acute postoperative pain Other acute postoperative pain Closed fracture of left tibial plateau with routine healing, subsequent encounter Cellulitis of leg, left Cellulitis of left lower extremity Sepsis following procedure (CMS/HCC) Closed fracture of left tibial plateau Closed fracture of left tibial plateau with routine healing, subsequent encounter documented in this encounter Admitting Diagnoses Diagnosis Cellulitis of leg, left Cellulitis of left lower extremity Sepsis following procedure ([facility]) Closed fracture of left tibial [...] and no response to magnesium hydroxide 09 ([facility] Hold - Provider: Automatic Transfer Provider - Reason: Patient in procedure)1216 ([facility] Unhold - Provider: Automatic Transfer Provider) HYDROmorphone [...] 0411 (Given - Provider: Taryn Miranda RN)09 ([facility] Hold - Provider: Automatic Transfer Provider - Reason: Patient in procedure)1216 ([facility] Unhold - Provider: Automatic Transfer Provider)1630 (Not Given - Provider: Alem Witt, RN - Reason: Patient/family refused)2002 (Given - Provider: Taryn Miranda RN) 431 (Given - Provider: Taryn Miranda RN)2107 (Given - Provider: Taryn Miranda RN) magnesium hydroxide (Milk of Magnesia) 400 MG/5ML suspension 30 mL 30 mL, Oral, Daily PRN, Starting on Sneha 01/16/25 at 0750, Until Mon01/22/25 at 1922, Routine, constipation, if no bowel movement for 48 hours 0924 ([facility] Hold - Provider: Automatic Transfer Provider - Reason: Patient in procedure)121 ([facility] Unhold - Provider: Automatic Transfer Provider) [...] Oral, Every 6 hours PRN, Starting on Tu01/21/25 at 0847, Until Mon01/22/25 at 1922, Routine, [...] documented as of this encounter 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
--- OUTSIDE RECORDS SUMMARY | 2025-02-03 08:10 | XMS_ITS | Encounter Summary ---
Author Organization Healthcare Address [address] [place] [address] Care Team Providers Care Pit Furnace Operator Name Role Phone EdvinRenetta Madhuri MALCOLM Primary Care Provider +1 -[phone] Reason for Visit * Reason Comments Post-op Encounter Details Date Type Department Care Team (Late st Contact Info) Description 02/03/2025 8:10 AM EDT Office Visit [facility] Orthopaedic Surgery & Sports Medicine [address], 1[address] [place] [address] Lawrence Hayes MD [address] [place] [address] Closed fracture of left tibial [...] drink first t traci in the morning (EYE-SUB ACUTE CARE NURSE) to steady your nerves or to get rid of a hangover? 0 09/10/2023 CAGE Questionnaire Score 0 024 Utilities Answer Date Recorded In the past 12 months has th [employer], gas, oil, or water [employer] threatened to shut off services in your [...] Orthopaedic Surgery and Sports Medicine Consult Pager: [phone] Service Pager: [phone] Cosigned by Lawrence Hayes MD at 02/03/2025 [...] Description 02/11/2025 1:00 PM EDT Office Visit [facility] [address] [place], [place] [phone] Ary Santiago, FERRULER [address] [facility] [address] [place] [address] 02/17/2025 8:[address] [facility] Radiology [address], 1[address] [place] [address] 02/17/2025 9:20 AM EDT Office Visit [facility] Orthopaedic Surgery & Sports Medicine [address], 1[address] [place] [address] Lawrence Hayes MD [address] [place] [address] 03/03/2025 1:00 PM EDT Office Visit [facility] [address] [place], [place] [phone] Ary Santiago, FERRULER [address] [facility] [address] [place] [address] Scheduled Orders Name Type Priority Associated Diagnoses Orde r Schedule XR Knee Left 3 Views Imaging Routine Closed fracture of left tibial plateau, initial encounter 1 Occurrences starting 02/03/2025 until 08/07/2026 documented as of this encounter Visit Diagnoses Diagnosis Closed fracture of left tibial plateau, initial encounter- Primary documented in this encounter Additional Health Concerns Infection Onset Date Last Indicated Resolved Time MRSA 01/18/2025 01/18/2025 Assessment Noted Time A fall risk assessment has been complete d for the patient 10/04/2023 8:38 AM EST A Body Mass Index follow-up plan has been documented for the patient 02/03/2025 1:06 PM EDT documented as of this encounter Care Teams Pit Furnace Operator Relationship Specialty Start Date End Date Renetta Pardo APRN [address] [place] [address] Dr Garcia [address] [place] [address] PCP - General 09/09/23 documented as of this encounter
--- OUTSIDE RECORDS SUMMARY | 2025-02-10 14:16 | XMS_ITS | Encounter Summary ---
Author Organization Healthcare Address [address] [id number] Care Team Providers Care Passenger Service Supervisor Name Role Phone Renetta Pardo APRN Primary Care Provider +1 -[phone] Encounter Details Date Type Department Care Team [...] time in the past 12 m [facility], were you homeless or living in [...] drink first t traci in the morning (EYE-STREET RAILWAY LINE INSTALLER) to steady your nerves or to [...] Description 02/11/2025 1:00 PM EDT Office Visit [facility] [address] [place] [address] Ary Santiago, MARKETING INFORMATION MANAGER [address] [facility] [address] [place] [address] 02/17/2025 8:[address] [facility] Radiology [address], 1st [place] [address] 02/17/2025 9:20 AM EDT Office Visit [facility] Orthopaedic Surgery & Sports Medicine [address], 1[address] Floor [address] [place] [address] Lawrence Hayes MD [address] [place] [address] 03/03/2025 1:00 PM EDT Office Visit [facility] [address] [place] [address] Ary Santiago APRN 3101 [facility] [address] [place] [address] documented as of this encounter [...] documented as of this encounter Care Teams Passenger Service Supervisor Relationship Specialty Start Date End Date Renetta Pardo, MARKETING INFORMATION MANAGER [address] [place] [address] Dr Garcia [address] [place] [address] PCP - General 09/09/23 documented as of this encounter
--- OUTSIDE RECORDS SUMMARY | 2025-02-10 14:16 | XMS_ITS | Encounter Summary ---
Author Organization Healthcare Address [address] [place] [address] Care Team Providers Care Glass Rolling Machine Operator Name Role Phone EdvinCheloRenettagerald Dhaliwal APRN Primary Care Provider +1 -[phone] Encounter Details Date Type Department Care Team (Late st Contact Info) Description 12/31/2024 Orders Only External Location [address] [place] [address] Mitchell Mosley PA [address] [place], [place] [id number] Social History Tobacco Use Types Packs/Day Years [...] drink first t traci in the morning (EYE-ORNAMENTAL IRON WORKER HELPER) to steady your nerves or to [...] No 025 9:05 AM EDT Genoveva Branham, SHEREEN 2. Non-Specific Active Suici mike Thoughts (Past 1 Month) No 01/01/2025 9:05 AM EDT Genoveva Branham, SHEREEN 6. Suicidal Behavior (Lifetime) No 9:05 AM EDT Genoveva Branham RN documented as of this encounter Plan of Treatment Upcoming Encounters Date Type Department Care Team (Late st Contact Info) Description 02/11/2025 1:00 PM EDT Office Visit [facility] [address] [place] [address] Ary Santiago, YUN 3101 [facility] [address] [place] [address] 02/17/2025 8:40 AM EDT Appointment [facility] Radiology [address], 1st [place] [address] 02/17/2025 9:20 AM EDT Office Visit [facility] Orthopaedic Surgery & Sports Medicine [address], 1[address] Floor [address] [place] [address] Lawrence Hayes MD [address] [place] [address] 03/03/2025 1:00 PM EDT Office Visit [address] [address] Ary Santiago APRN [address]01 [facility] [address] [place] [address] documented as of this encounter [...] documented as of this encounter Care Teams Glass Rolling Machine Operator Relationship Specialty Start Date End Date Renetta Pardo APRN [address] [place] [address] [place] [address] PCP - General 09/09/23 documented as of this encounter
--- OUTSIDE RECORDS SUMMARY | 2025-02-10 14:16 | XMS_ITS | Encounter Summary ---
Author Organization Healthcare Address [address] [place] [address] Care Team Providers Care Harmonic Analyst Name Role Phone EdvinCheloRenettagerald Dhaliwal APRN Primary Care Provider +1 -[phone] Encounter Details Date Type Department Care Team (Late st Contact Info) Description 12/31/2024 Orders Only External Location [address] [place] [address] Mitchell Mosley PA [address] [place], [place] [id number] Social History Tobacco Use Types Packs/Day Years [...] in a retirement (including now)? No 09/12/2023 CAGE ASSESSMENT Answer [...] first t traci in the morning (EYE-DIRECTOR FIXED INCOME) to steady your nerves or to get [...] Description 02/11/2025 1:00 PM EDT Office Visit [facility] [address] [place] [address] Ary Santiago, YUN 3101 [facility] [address] [place] [address] 02/17/2025 8:40 AM EDT Appointment [facility] Radiology [address], 1st [place] [address] 02/17/2025 9:20 AM EDT Office Visit [facility] Orthopaedic Surgery & Sports Medicine [address], 1[address] Floor [address] [place] [address] Lawrence Hayes MD [address] [place] [address] 03/03/2025 1:00 PM EDT Office Visit [address] [address] Ary Santiago APRN 3101 [facility] [address] [place] [address] documented as of this encounter [...] documented as of this encounter Care Teams Harmonic Analyst Relationship Specialty Start Date End Date Renetta Pardo APRN [address] [place] [address] [place] [address] PCP - General 09/09/23 documented as of this encounter
--- OUTSIDE RECORDS SUMMARY | 2025-02-10 14:17 | XMS_ITS | Encounter Summary ---
Author Organization [facility] Address [address] [id number] Care Team Providers Care Agronomy Manager Name Role Phone Edvin Renetta Dhaliwal APRN Primary Care Provider +1 -[phone] Encounter Details Date Type Department Care Team [...] drink first t traci in the morning (EYE-ENTERPRISE APPLICATION ANALYST) to steady your nerves or to get [...] Description 02/11/2025 1:00 PM EDT Office Visit [facility] [address] [place] [address] Ary Sanitago, YUN 310 [facility] 100 [place] [address] 02/17/2025 8:40 AM EDT Appointment [facility] Radiology [address], 1st [place] [address] 02/17/2025 9:20 AM EDT Office Visit [facility] Orthopaedic Surgery & Sports Medicine [address], 1[address] Floor [address] [place] [address] Lawrence Hayes MD [address] [place] [address] 03/03/2025 1:00 PM EDT Office Visit [facility] [address] [place] [address] Ary Santiago, YUN [address] [facility] [address] [place] [address] documented as of this encounter Visit Diagnoses Not on filedocumented in this encounter Additional Health Concerns Assessment Noted Time A fall risk assessment has been complete d for the patient 10/04/2023 8:38 AM EST A Body Mass Index follow-up plan has been documented for the patient 01/02/2025 10:48 AM EDT documented as of this encounter Care Teams Agronomy Manager Relationship Specialty Start Date End Date Renetta Pardo APRN [address] [place] [address] Dr [address] [place] [address] PCP - General 09/09/23 documented as of this encounter
--- OUTSIDE RECORDS SUMMARY | 2025-02-10 14:17 | XMS_ITS | Encounter Summary ---
Author Organization Healthcare Address [address] [place] [address] Care Team Providers Care Advance Scout Name Role Phone EdvinCheloRenettagerald Dhaliwal APRN Primary Care Provider +1 -[phone] Encounter Details Date Type Department Care Team (Late st Contact Info) Description 12/31/2024 Orders Only External Location [address] [place] [address] Mitchell Mosley PA [address] [place], [place] [id number] Social History Tobacco Use Types Packs/Day Years [...] drink first t traci in the morning (EYE-CRYPTOGRAPHIC MACHINE OPERATOR) to steady your nerves or [...] EDT Office Visit [facility] [address] [place] [address] Ary Santiago, YUN [address] [facility] [address] [place] [address] 02/17/2025 8:40 AM EDT Appointment [facility] Radiology [address], 1st [place] [address] 02/17/2025 9:20 AM EDT Office Visit [facility] Orthopaedic Surgery & Sports Medicine [address], [address] [place] [address] Lawrence Hayes MD [address] [place] [address] 03/03/2025 1:00 PM EDT Office Visit [address] [address] Ary Santiago APRN [address]01 [facility] [address] [place] [address] documented as of this encounter [...] documented as of this encounter Care Teams Advance Scout Relationship Specialty Start Date End Date Renetta Pardo APRN [address] [place] [address] [place] [address] PCP - General 09/09/23 documented as of this encounter
--- OUTSIDE RECORDS SUMMARY | 2025-02-10 14:17 | XMS_ITS | Encounter Summary ---
Author Organization Healthcare Address [address] [place] [address] Care Team Providers Care Stock Dealer Name Role Phone EdvinCarissateetee Dhaliwal APRN Primary Care Provider [phone] Reason for Visit * Reason Onset Date Comments HCN - Patient Message 01/27/2025 Encounter Details Date Type Department Care Team (Late st Contact Info) Description 01/27/[address] [facility] Orthopaedic Surgery & Sports Medicine [address] [place] [address] Lawrence Hayes MD [address] [place] [address] HCN - Patient Message Social [...] drink first t traci in the morning (EYE-GAMING DEALER) to steady your nerves or to get [...] Please call to advise Best contact number: [phone] (mobile) Optimal time of day to reach [...] Description 02/11/2025 1:00 PM EDT Office Visit [address] [address] Ary Santiago APRN [address] [place] [address] [address] [place] [address] 02/17/2025 8:[address] [facility] Radiology [address] [place] [address] 02/17/2025 9:20 AM EDT Office Visit [facility] Orthopaedic Surgery & Sports Medicine [address] [place] [address] Lawrence Hayes MD [address] [place] [address] 03/03/2025 1:00 PM EDT Office Visit [address] [address] Ary Santiago APRN [address] [facility] [address] [place] [address] documented as of this encounter Visit Diagnoses [...] as of this encounter Care Teams Stock Dealer Relationship Specialty Start Date End Date Renetta Pardo, YUN [address] [place] [address] [place] [address] PCP - General 09/09/23 documented as of this encounter
--- OUTSIDE RECORDS SUMMARY | 2025-02-10 14:17 | XMS_ITS | Encounter Summary ---
Author Organization Healthcare Address [address] [place] [address] Care Team Providers Care Assistant Speech Language Pathologist Name Role Phone EdvinCheloRenettagerald Dhaliwal APRN Primary Care Provider [phone] Encounter Details Date Type Department Care Team (Late st Contact Info) Description 01/23/[address] [facility] [address] [place] [address] Gume Ibarra, PharmD [address] [place] [address] Social History Tobacco Use Types Packs/Day Years [...] drink first t traci in the morning (EYE-UPKEEP MECHANIC) to steady your nerves or to [...] 02/11/2025 1:00 PM EDT Office Visit [facility] [address] [place] [address] Ary Santiago, NURSING UNIT MANAGER [address] [facility] [address] [place] [address] 02/17/2025 8:[address] [facility] Radiology [address] [place] [address] 02/17/2025 9:20 AM EDT Office Visit [facility] Orthopaedic Surgery & Sports Medicine [address] [place] [address] Lawrence Hayes MD [address] [place] [address] 03/03/2025 1:00 PM EDT Office Visit [facility] [address] [place] [address] Ary Santiago, NURSING UNIT MANAGER [address] [facility] [address] [place] [address] documented as of this encounter Visit Diagnoses [...] documented as of this encounter Care Teams Assistant Speech Language Pathologist Relationship Specialty Start Date End Date Renetta Pardo APRN [address] [place] [address] Dr [address] [place] [address] PCP - General 09/09/23 documented as of this encounter
--- OUTSIDE RECORDS SUMMARY | 2025-02-10 14:17 | XMS_ITS | Encounter Summary ---
Author Organization Healthcare Address [address] [place] [address] Care Team Providers Care Pole Cutter Name Role Phone EdvinCheloRenettagerald Dhaliwal APRN Primary Care Provider [phone] Encounter Details Date Type Department Care Team (Late st Contact Info) Description 01/24/2025 Telephone [facility] Orthopaedic Surgery & Sports Medicine [address] [place] [address] Camden Vital, ENTERPRISE RESOURCE PLANNING CONSULTANT & ACUTE CARE SURG [facility] ADMIN Social [...] any time in the past 12 m [facility], were you homeless or [...] drink first t traci in the morning (EYE-MINE CAR REPAIRER) to steady your nerves or to [...] 02/11/2025 1:00 PM EDT Office Visit [facility] [address] [place] [address] Ary Santiago, BEAD CUTTER [address] [facility] [address] [place] [address] 02/17/2025 8:40 AM EDT Appointment [facility] Radiology [address] 1[address] [place] [address] 02/17/2025 9:20 AM EDT Office Visit [facility] Orthopaedic Surgery & Sports Medicine [address] [place] [address] Lawrence Hayes MD [address] [facility] [address] [place] [address] 03/03/2025 1:00 PM EDT Office Visit [facility] [address] [facility] [place] [address] Ary Santiago APRN [address] [facility] [address] [place] [address] documented as of this [...] documented as of this encounter Care Teams Pole Cutter Relationship Specialty Start Date End Date Renetta Pardo, BEAD CUTTER [address] [place] [address] [address] [place] [address] PCP - General 09/09/23 documented as of this encounter
--- OUTSIDE RECORDS SUMMARY | 2025-02-10 14:17 | XMS_ITS | Encounter Summary ---
Author Organization Healthcare Address [address] [place] [address] Care Team Providers Care Logging Supervisor Name Role Phone Renetta Pardo APRN Primary Care Provider [phone] Encounter Details Date Type Department Care Team (Late st Contact Info) Description 01/23/2025 Clinical Support [facility] [address] [place] [address] Sonia Meyer, PharmD Social History Tobacco Use [...] a group home (including now)? No 09/12/2023 Humiliation, Afraid, [...] any time in the past 12 m [facility], were you homeless or living in a group home (including now)? No 01/17/2025 CAGE ASSESSMENT [...] drink first t traci in the morning (EYE-PASSENGER CAR INSPECTOR) to steady your nerves or to get rid of a hangover? 0 09/10/2023 CAGE Questionnaire Score 0 024 Utilities Answer Date Recorded In the past 12 months has [employer] electric, gas, oil, or water company threatened [...] Confirmation of IV Antimicrobials Home Health Services [facility], [facility]; Comments ID / OPAT pharmacist called and spoke with chon Vega at [facility] to confirm orders for daptomycin 1100 mg IV every 24 hours until 03/03/25. Sonia Meyer PharmD, [facility] Clinical Pharmacist Infectious Diseases, OPAT Available via [employer] Secure Chat documented in this encounter Plan of Treatment Upcoming Encounters Date Type Department Care Team (Late st Contact Info) Description 02/11/2025 1:00 PM EDT Office Visit [facility] [address] [place] [address] Ary Santiago, MIXING HOUSE OPERATOR [address] [facility] [address] [place] [address] 02/17/2025 8:40 AM EDT Appointment [facility] Radiology [address] [place] [address] 02/17/2025 9:20 AM EDT Office Visit [facility] Orthopaedic Surgery & Sports Medicine [address] [place] [address] Lawrence Hayes MD [address] [place] [address] 03/03/2025 1:00 PM EDT Office Visit [facility] [address] [place] [address] Ary Santiago APRN [address] [facility] [address] [place] [address] documented as of this encounter [...] documented as of this encounter Care Teams Logging Supervisor Relationship Specialty Start Date End Date Renetta Pardo, MIXING HOUSE OPERATOR [address] [place] [address] Dr [address] [place] [address] PCP - General 09/09/23 documented as of this encounter
--- OUTSIDE RECORDS SUMMARY | 2025-02-10 14:17 | XMS_ITS | Clinical Summary ---
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 STOOLS ORDERABLES NO SPECIMEN TYPE/SOURCE Final Result Performing Organization Address [facility] Co de Phone Number [facility] [address] [place] [address] * Body fluid, cytospin, pathologist interpretation (01/18/2025 3:01 PM EDT) Only the most recent of2 resultswithin the time period is included. Specimen Type Joint Fluid LAB HEMATOLOGY METHOD 01/20/2025 4:29 PM EDT [facility] Specimen Source, Body Fluid Knee, Left LAB HEMATOLOGY METHOD 01/20/2025 4:29 PM EDT [facility] Clinical Diagnosis, Body Fluid Left lower extremity cellulitis LAB HEMATOLOGY METHOD 01/20/2025 4:29 PM EDT [facility] Interpretation , Body Fluid Bloody specimen Acute and chronic inflammatory cells Correlation with microbiology studies recommended A resident was involved in the service. I attest I examined the relevant preparations for the specimens and confirmed the diagnosis or interpretation. 01/20/2025 4:29 PM EDT [facility] Pathologist Signature, Body Fluid 01/20/2025 4:29 PM EDT [facility] Comment:Reviewed by: Stephanie conti MD LAB CP ASR DISCLAIMER Yes 01/20/2025 4:29 PM EDT [facility] Joint Fluid Structure of left knee region / Unknown 01/18/2025 3:01 PM EDT 01/18/2025 3:28 PM EDT us Sachin Garza MD LAB BODY FLUIDS AND STOOLS O RDERABLES Final Result [facility] [address] [place] [address] * Joint Fluid Crystals (01/18/2025 3:01 PM EDT) Crystals, Joint Fluid No Crystals Seen No Crystals Present 01/18/2025 5:28 PM EDT [facility] Joint Fluid Structure of left knee region / Unknown 01/18/2025 3:01 PM EDT 01/18/2025 3:28 PM EDT us Sachin Garza MD LAB BODY FLUIDS AND STOOLS O RDERABLES Final Result [facility] [address] [place] [address] * Joint Infection Panel by PCR (01/18/2025 12:17 PM EDT) Anaerococcus prevotii/vaginalis PCR Result Not Detected Not Detected 01/18/2025 5:28 PM EDT [facility] Clostridium perfringens PCR Result Not Detected Not Detected 01/18/2025 5:28 PM EDT [facility] Cutibacterium avidum/granulosum PCR Result Not Detected Not Detected 01/18/2025 5:28 PM EDT [facility] Enterococcus faecalis PCR Result Not Detected Not Detected 01/18/2025 5:28 PM EDT [facility] Enterococcus faecium PCR Result Not Detected Not Detected 01/18/2025 5:28 PM EDT [facility] Finegoldia magna PCR Result Not Detected Not Detected 01/18/2025 5:28 PM EDT [facility] Parvimonas micra PCR Result Not Detected Not Detected 01/18/2025 5:28 PM EDT [facility] Peptoniphilus PCR Result Not Detected Not Detected 01/18/2025 5:28 PM EDT [facility] Peptostreptococcus anaerobius PCR Result Not Detected Not Detected 01/18/2025 5:28 PM EDT [facility] Staphylococcus aureus PCR Result Not Detected Not Detected 01/18/2025 5:28 PM EDT [facility] Staphylococcus lugdunensis PCR Result Not Detected Not Detected 01/18/2025 5:28 PM EDT [facility] Streptococcus spp PCR Result Not Detected Not Detected 01/18/2025 5:28 PM EDT [facility] Streptococcus agalactiae PCR Result Not Detected Not Detected 01/18/2025 5:28 PM EDT [facility] Streptococcus pneumoniae PCR Result Not Detected Not Detected 01/18/2025 5:28 PM EDT [facility] Streptococcus pyogenes PCR Result Not Detected Not Detected 01/18/2025 5:28 PM EDT [facility] Bacteroides fragilis PCR Result Not Detected Not Detected 01/18/2025 5:28 PM EDT [facility] Citrobacter PCR Result Not Detected Not Detected 01/18/2025 5:28 PM EDT [facility] Enterobacter cloacae complex PCR Result Not Detected Not Detected 01/18/2025 5:28 PM EDT [facility] Escherichia coli PCR Result Not Detected Not Detected 01/18/2025 5:28 PM EDT [facility] Haemophilus influenzae PCR Result Not Detected Not Detected 01/18/2025 5:28 PM EDT [facility] Kingella kingae PCR Result Not Detected Not Detected 01/18/2025 5:28 PM EDT [facility] Klebsiella aerogenes PCR Result Not Detected Not Detected 01/18/2025 5:28 PM EDT [facility] Klebsiella pneumoniae group PCR Result Not Detected Not Detected 01/18/2025 5:28 PM EDT [facility] Morganella morganii PCR Result Not Detected Not Detected 01/18/2025 5:28 PM EDT [facility] Neisseria gonorrhoeae PCR Result Not Detected Not Detected 01/18/2025 5:28 PM EDT [facility] Proteus spp PCR Result Not Detected Not Detected 01/18/2025 5:28 PM EDT [facility] Pseudomonas aeruginosa PCR Result Not Detected Not Detected 01/18/2025 5:28 PM EDT [facility] Salmonella spp PCR Result Not Detected Not Detected 01/18/2025 5:28 PM EDT [facility] Serratia marcescens PCR Result Not Detected Not Detected 01/18/2025 5:28 PM EDT [facility] Nelda PCR Result Not Detected Not Detected 01/18/2025 5:28 PM EDT [facility] Nelda albicans PCR Result Not Detected Not Detected 01/18/2025 5:28 PM EDT [facility] CTXM PCR Result Not Detected Not Detected 01/18/2025 5:28 PM EDT [facility] IMP PCR Result Not Detected Not Detected 01/18/2025 5:28 PM EDT [facility] KPC PCR Result Not Detected Not Detected 01/18/2025 5:28 PM EDT [facility] mecA/C and MREJ (MRSA) PCR Result Not Detected Not Detected 01/18/2025 5:28 PM EDT [facility] NDM PCR Result Not Detected Not Detected 01/18/2025 5:28 PM EDT [facility] OXA-48-like PCR Result Not Detected Not Detected 01/18/2025 5:28 PM EDT [facility] Jarret/B PCR Result Not Detected Not Detected 01/18/2025 5:28 PM EDT [facility] VIM PCR Result Not Detected Not Detected 01/18/2025 5:28 PM EDT [facility] Joint Fluid Synovial fluid specimen / Unknown Non-blood Collection / Unknown 01/18/2025 12:17 PM EDT 01/18/2025 3:24 PM EDT Narrative [facility] - 01/18/2025 5:28 PM EDT [...] MICROBIOLOGY - GENERAL O RDERABLES Final Result [facility] [address] [place] [address] * VT AN ELECTIVE ENDOTRACHEAL AIRWAY, PB ANESTHESIA PLACEHOLDER [...] Detected Not Detected 01/18/2025 9:36 AM EDT [facility] Swab Both anterior nares / Unknown Non-blood Collection / Unknown 01/18/2025 7:43 AM EDT 01/18/2025 8:19 AM EDT Narrative [facility] - 01/18/2025 9:36 AM EDT [...] O RDERABLES Final Result Performing Organization Address [facility] [place] [address] * Vancomycin, Peak, Plasma Please draw ~2 hours after 1000 dose of vancomycin on Monday finishes infusing. Consider obtaining level via peripheral stick. If peripheral stick is not feasible, please ensure that line is flushed well prior to drawing l... (01/17/2025 2:03 PM EDT) Vancomycin, Peak, Plasma 22.0 20.0 - 40.0 ug/mL 01/17/2025 3:01 PM EDT [facility] Blood Venous blood specimen / Unknown Venipuncture / Unknown 01/17/2025 2:03 PM EDT 01/17/2025 2:32 PM EDT Narrative [facility] - 01/17/2025 3:01 PM EDT Therapeutic Peak level: 20-40ug/mL Supra-therapeutic Peak level: >40 ug/mL us Sachin Garza MD LAB BLOOD ORDERABLES Final R esult Performing Organization Address [facility] Co de Phone Number [facility] [address] [place] [address] * Vancomycin, Trough, Plasma Please draw ~30 minutes prior to dose due at 1000 on Monday. Please do NOT hold dose awaiting level to return. Consider obtaining level via peripheral stick. If peripheral stick is not feasible, please ensure that line ... (01/17/2025 9:53 AM EDT) Vancomycin, Trough, Plasma 12.5 10.0 - 20.0 ug/mL 01/17/2025 10:24 AM EDT [facility] Blood Venous blood specimen / Unknown Venipuncture / Unknown 01/17/2025 9:53 AM EDT 01/17/2025 9:57 AM EDT Narrative [facility] - 01/17/2025 10:24 AM EDT Therapeutic Trough level: 10-20ug/mL Supra-therapeutic Trough level: >20 ug/mL us Sachin Garza MD LAB BLOOD ORDERABLES Final R esult [facility] [address] [place] [address] * [place] Extremity Limited MSK or Soft [...] at day 5 01/21/2025 2:02 AM EDT [facility] Blood Venous blood specimen / Unknown Venipuncture / Unknown 01/16/2025 12:24 AM EDT 01/16/2025 1:12 AM EDT Narrative [facility] - 01/21/2025 2:02 AM EDT Low blood volume submitted, results may be compromised Gus Tierney APRN LAB MICROBIOLOGY - GENER AL ORDERABLES Final Result [facility] [address] [place] [address] * XR Chest 1 View (01/15/2025 11:21 [...] MD on 01/15/2025 11:40 PM Gus Tierney LABORATORY ENGINEER IMG XR PROCEDURES Final Result * XR [...] MD on 01/15/2025 11:40 PM Gus Tierney LABORATORY ENGINEER IMG XR PROCEDURES Final Result * Type [...] ORDERA BLES Final Result [facility] B[facility] [address] [place] [address], * ECG Adult (01/15/2025 10:46 PM EDT) Only the most recent of3 resultswithin the time period is included. EKG DIAGNOSIS CLASS Normal MUSE ECG Ventricular Rate 92 BPM MUSE ECG Atrial Rate 92 BPM MUSE ECG VT Interval 122 ms MUSE ECG QRSD Interval 102 ms MUSE ECG QT Interval 350 ms MUSE ECG QTC Interval 432 ms MUSE ECG P Payette 56 degrees MUSE ECG R Payette 44 degrees MUSE ECG T Wave Payette 57 degrees MUSE ECG Diagnosis Normal sinus rhythm MUSE ECG Diagnosis Normal ECG MUSE ECG Diagnosis MUSE ECG Diagnosis Confirmed by Richard Mccracken ([id number]) on 01/16/2025 8:55:10 PM MUSE ECG 01/15/2025 10:4 6 PM EDT 01/16/2025 8:55 PM EDT Ye Navarro MD ECG ORDERABLES Final Resu lt MUSE ECG * (ABNORMAL) Sed rate, automated (01/15/2025 10:11 PM EDT) Pathologist [facility] Sedimentation Rate 46(H) <15 mm/hr 2024 10:34 PM EDT [facility] Blood Venous blood specimen / Unknown Venipuncture / Unknown 01/15/2025 10:11 PM EDT 01/15/2025 10:12 PM EDT Gus Tierney APRN LAB BLOOD ORDERABLES Fin al Result [facility] [address] [place] [address] * (ABNORMAL) Blood gas panel, venous (01/15/2025 10:11 PM EDT) pH, Venous 7.39 7.32 - 7.43 LAB HEMATOLOGY METHOD 01/15/2025 10:14 PM EDT [facility] pCO2, Venous 47 40 - 55 mmHg LAB HEMATOLOGY METHOD 01/15/2025 10:14 PM EDT [facility] pO2, Venous 34 25 - 40 mmHg LAB HEMATOLOGY METHOD 01/15/2025 10:14 PM EDT [facility] SO2, Measured, Venous 68 65 - 80 % LAB HEMATOLOGY METHOD 01/15/2025 10:14 PM EDT [facility] Base Excess, Venous 2.8 -2.0 - 3.0 mmol/L LAB HEMATOLOGY METHOD 01/15/2025 10:14 PM EDT [facility] Bicarbonate, Calculated, Venous 29(H) 22 - 26 mmol/L LAB HEMATOLOGY METHOD 01/15/2025 10:14 PM EDT [facility] Hematocrit, Whole Blood 40.4 40.0 - 51.0 % LAB HEMATOLOGY METHOD 01/15/2025 10:14 PM EDT [facility] Sodium, Whole Blood 135(L) 136 - 145 mmol/L LAB HEMATOLOGY METHOD 01/15/2025 10:14 PM EDT [facility] Potassium, Whole Blood 4.3 3.6 - 4.9 mmol/L LAB HEMATOLOGY METHOD 01/15/2025 10:14 PM EDT [facility] Chloride, Whole Blood 99 97 - 107 mmol/L LAB HEMATOLOGY METHOD 01/15/2025 10:14 PM EDT [facility] Glucose, Whole Blood 110(H) 74 - 99 mg/dL LAB HEMATOLOGY METHOD 01/15/2025 10:14 PM EDT [facility] Lactate, Venous, Whole Blood 1.1 0.5 - 2.2 mmol/L LAB HEMATOLOGY METHOD 01/15/2025 10:14 PM EDT [facility] Ionized Calcium, Whole Blood 4.6 4.6 - 5.1 mg/dL LAB HEMATOLOGY METHOD 01/15/2025 10:14 PM EDT [facility] Blood Venous blood specimen / Unknown Venipuncture / Unknown 01/15/2025 10:11 PM EDT 01/15/2025 10:12 PM EDT Gus Tierney APRN LAB BLOOD ORDERABLES Fin al Result [facility] [address] [place] [address] * (ABNORMAL) CMP (01/15/2025 10:11 PM EDT) Only the most recent of2 resultswithin the time period is included. Glucose, Plasma 116(H) 74 - 99 mg/dL 01/15/2025 10:32 PM EDT [facility] BUN, Plasma 14 7 - 21 mg/dL 01/15/2025 10:32 PM EDT [facility] Creatinine, Plasma 0.78 0.70 - 1.20 mg/dL 01/15/2025 10:32 PM EDT [facility] BUN/Creatinine Ratio 18 01/15/2025 10:32 PM EDT [facility] Sodium, Plasma 134(L) 136 - 145 mmol/L 01/15/2025 10:32 PM EDT [facility] Potassium, Plasma 4.6 3.6 - 4.9 mmol/L 01/15/2025 10:32 PM EDT [facility] Chloride, Plasma 97 97 - 107 mmol/L 01/15/2025 10:32 PM EDT [facility] CO2, Plasma 24 22 - 29 mmol/L 01/15/2025 10:32 PM EDT [facility] Anion Gap 13 6 - 16 mmol/L 01/15/2025 10:32 PM EDT [facility] Total Calcium, Plasma 8.7(L) 8.9 - 10.2 mg/dL 01/15/2025 10:32 PM EDT [facility] Total Protein 6.5 6.3 - 7.9 g/dL 01/15/2025 10:32 PM EDT [facility] Albumin, Plasma 3.7 3.5 - 5.2 g/dL 01/15/2025 10:32 PM EDT [facility] AST, Plasma 23 10 - 50 U/L 01/15/2025 10:32 PM EDT [facility] ALT, Plasma 52(H) 10 - 50 U/L 01/15/2025 10:32 PM EDT [facility] Alkaline Phosphatase, Plasma 124(H) 40 - 115 U/L 01/15/2025 10:32 PM EDT [facility] Total Bilirubin, Plasma 0.3 0.2 - 1.1 mg/dL 01/15/2025 10:32 PM EDT [facility] eGFRcr 119.3 mL/min/1.7 3m*2 01/15/2025 10:32 PM EDT [facility] Comment:Reported eGFRcr in m L/min/1.73m2 is based the CKD-EPI 2020 equation that does not use a race coefficient. Blood Venous blood specimen / Unknown Venipuncture / Unknown 01/15/2025 10:11 PM EDT 01/15/2025 10:12 PM EDT Gus Tierney APRN LAB BLOOD ORDERABLES Fin al Result Performing Organization Address [facility] Co de Phone Number [facility] [address] [place] [address] * Lactate, venous (01/02/2025 2:46 AM EDT) Only the most recent of4 resultswithin the time period is included. Lactate, Venous, Whole Blood 1.8 0.5 - 2.2 mmol/L LAB HEMATOLOGY METHOD 01/02/2025 2:55 AM EDT [facility] Blood Venous blood specimen / Unknown Venipuncture / Unknown 01/02/2025 2:46 AM EDT 01/02/2025 2:53 AM EDT Lawrence Hayes MD LAB BLOOD ORDERABLES Final Re sult Performing Organization Address [facility] de Phone Number [facility] [address] [place] [address] * FL Less than 1 Hour Intraoperative (01/01/2025 12:51 PM EDT) Narrative IMAGING - 01/01/2025 12:53 PM EDT Images were obtained for surgical purposes. See Lawrence Hayes's surgical note in the patient's chart for the findings. us Lawrence Hayes MD IMG FLUOROSCOPY PROCEDURES Fi nal Result Performing Organization Address [facility] de Phone Number IMAGING * VT AN ELECTIVE ENDOTRACHEAL AIRWAY, PB ANESTHESIA PLACEHOLDER (01/01/2025 11:28 AM EDT) Narrative Rubén Millan CRNA - 01/01/2025 11:28 AM EDT Rubén Millan CRNA 01/01/2025 11:31 AM Airway Date/Time: 01/01/2025 11:28 AM Reason: elective Airway not difficult General Information and Staff Patient location during procedure: OR ENGINEERING PRODUCTION WORKER: Rubén Millan CRNA Performed: ENGINEERING PRODUCTION WORKER Patient Condition Indications for airway management: anesthesia [...] 5.6 <5.7 % 01/01/2025 8:29 AM EDT [facility] Blood Venous blood specimen / Unknown Venipuncture / Unknown 01/01/2025 7:17 AM EDT 01/01/2025 7:23 AM EDT Narrative [facility] - 01/01/2025 8:29 AM EDT HA1C Interpretive Data: Diagnosis of Diabetes: Diabetic > or = 6.5% Pre-diabetic 5.7 to 6.4% Non-diabetic < or = 5.6% Glycemic Targets for Type I and Type II Diabetics: Non- Adults <7.0% Adults <6.0% Children and Adolescents <7.5% Source: [place] [employer]. Standards of medical care in diabetes,2017. Diabetes Care.2017:40 (suppl 1):S1-S135. us Lawrence Hayes MD LAB BLOOD ORDERABLES Final Re sult [facility] [address] [place] [address] * CT Knee Left wo IV Contrast [...] Reactive Non Reactive 01/01/2025 1:33 AM EDT [facility] Comment:Screening for HIV 1 & 2 antibodies, and P24 antigen is NONREACTIVE. No confirmatory testing is required. Blood Venous blood specimen / Unknown Venipuncture / Unknown 01/01/2025 12:35 AM EDT 01/01/2025 12:52 AM EDT us Kareem Perera MD LAB BLOOD ORDERABLES Final Resu lt Performing Organization Address [facility]/[place] [address] * Hepatitis C Antibody - ED (01/01/2025 12:35 AM EDT) Hepatitis C Antibody Negative Negative 01/01/2025 1:33 AM EDT [facility] Blood Venous blood specimen / Unknown Venipuncture / Unknown 01/01/2025 12:35 AM EDT 01/01/2025 12:52 AM EDT us Kareem Perera MD LAB BLOOD ORDERABLES Final Resu lt Performing Organization Address [facility] Co de Phone Number [facility] [address] [place] [address] * Light Green Top (01/01/2025 12:27 AM EDT) Extra Hold for add-ons 01/01/2025 3:02 AM EDT [facility] Comment:Auto resulted. Blood Venous blood specimen / Unknown 01/01/2025 12:27 AM EDT 01/01/2025 12:42 AM EDT us Kareem Perera MD LAB BLOOD ORDERABLES Final Resu lt Performing Organization Address [facility] [place] [address] * CT OUTSIDE IMAGES (12/31/2024 7:02 PM [...] Date Last Indicated MRSA 01/18/2025 01/18/2025 Insurance Advance Directives * Full Code (Latest Code [...] Patient has decision-making capacity? Yes Care Teams Prior Authorization Nurse Relationship Specialty Start Date End Date Renetta Pardo APRN [address] [place] [address] [place] [address] PCP - General 09/09/23
--- OUTSIDE RECORDS SUMMARY | 2025-02-10 14:17 | XMS_ITS | Encounter Summary ---
Author Organization Healthcare Address [address] [id number] Care Team Providers Care Account Relationship Manager Name Role Phone Renetta Pardo APRN Primary Care Provider [phone] Encounter Details Date Type Department Care Team [...] any time in the past 12 m [facility], were you homeless or living [...] drink first t traci in the morning (EYE-THERMAL INTELLIGENCE ANALYST) to steady your nerves or to [...] Description 02/11/2025 1:00 PM EDT Office Visit [facility] [address] [place] [phone] Ary Santiago, WOOL HAT FLANGER [address] [facility] [address] [place] [address] 02/17/2025 8:40 AM EDT Appointment [facility] Radiology [address] [place] [address] 02/17/2025 9:20 AM EDT Office Visit [facility] Orthopaedic Surgery & Sports Medicine [address] [place] [address] Lawrence Hayes MD [address] [place] [phone] 03/03/2025 1:00 PM EDT Office Visit [facility] [address] [place] [address] Ary Santiago, WOOL HAT FLANGER [address] [facility] [address] [place] [address] documented as of this encounter [...] as of this encounter Care Teams Account Relationship Manager Relationship Specialty Start Date End Date Renetta Pardo APRN [address] [place] [address] Dr [address] [place] [address] PCP - General 09/09/23 documented as of this encounter
--- OUTSIDE RECORDS SUMMARY | 2025-02-10 14:17 | XMS_ITS | Encounter Summary ---
Author Organization Healthcare Address [address] [id number] Care Team Providers Care Direct Service Professional Name Role Phone Renetta Pardo APRN Primary Care Provider [phone] Encounter Details Date Type Department Care Team ([facility] st Contact Info) Description 12/31/2024 Orders Only External Location [address] [place] [address] Provider, External Social History Tobacco Use Types [...] first t traci in the morning (EYE-FIRE CAPTAIN MARINE) to steady your nerves or to get [...] EDT Office Visit [facility] [address] [place] [address] Ary Santiago, DUSTLESS OPERATOR [address] [facility] [address] [place] [address] 02/17/2025 8:40 AM EDT Appointment [facility] Radiology [address] [place] [phone] 02/17/2025 9:20 AM EDT Office Visit [facility] Orthopaedic Surgery & Sports Medicine [address] [place] [address] Lawrence Hayes MD [address] [place] [address] 03/03/2025 1:00 PM EDT Office Visit [facility] [address] [place], [place] [phone] Ary Santiago, DUSTLESS OPERATOR [address] [facility] [address] [place] [address] documented as of this encounter [...] documented as of this encounter Care Teams Direct Service Professional Relationship Specialty Start Date End Date Renetta Pardo, YUN [address] [place] [address] Dr [address] [place] [address] PCP - General 09/09/23 documented as of this encounter
--- OUTSIDE RECORDS SUMMARY | 2025-02-10 14:17 | XMS_ITS | Encounter Summary ---
Author Organization Healthcare Address [address] [place] [address] Care Team Providers Care Fashion Coordinator Name Role Phone EdvinCheloRenettagerald Dhaliwal APRN Primary Care Provider [phone] Encounter Details Date Type Department Care Team (Late st Contact Info) Description 12/31/2024 Orders Only External Location [address] [place] [address] Mitchell Mosley PA [address] [place], [place] [id number] Social History Tobacco Use Types Packs/Day Years [...] a senior care (including now)? No 09/12/2023 CAGE ASSESSMENT Answer [...] drink first t traci in the morning (EYE-DRIVING TEACHER) to steady your nerves or to get [...] PM EDT Office Visit [facility] [address] [place] [address] Ary Santiago, YUN [address] [facility] [address] [place] [address] 02/17/2025 8:40 AM EDT Appointment [facility] Radiology [address], 1st [place] [address] 02/17/2025 9:20 AM EDT Office Visit [facility] Orthopaedic Surgery & Sports Medicine [address], 1[address] [place] [address] Lawrence Hayes MD [address] [place] [address] 03/03/2025 1:00 PM EDT Office Visit [address] [address] Ary Santiago APRN [address] [facility] [address] [place] [address] documented as of this encounter [...] documented as of this encounter Care Teams Fashion Coordinator Relationship Specialty Start Date End Date Renetta Pardo APRN [address] [place] [address] [place] [address] PCP - General 09/09/23 documented as of this encounter
--- OUTSIDE RECORDS SUMMARY | 2025-02-10 14:17 | XMS_ITS | Encounter Summary ---
Author Organization Healthcare Address [address] [id number] Care Team Providers Care Patch Washer Name Role Phone Renetta Pardo APRN Primary Care Provider [phone] Encounter Details Date Type Department Care Team [...] in a half-way (including now)? No 09/12/2023 Humiliation, Afraid, Rape, [...] any time in the past 12 m [facility], were you homeless or living in a half-way (including now)? No 01/17/2025 CAGE ASSESSMENT Answer [...] drink first t traci in the morning (EYE-TRAVEL COUNSELOR AUTOMOBILE CLUB) to steady your nerves or to get [...] Description 02/11/2025 1:00 PM EDT Office Visit [facility] [address] [place] [address] Ary Santiago, CORONER TRANSPORT TECHNICIAN [address] [facility] [address] [place] [address] 02/17/2025 8:40 AM EDT Appointment [facility] Radiology [address], 1st [place] [address] 02/17/2025 9:20 AM EDT Office Visit [facility] Orthopaedic Surgery & Sports Medicine [address], 1[address] [place] [address] Lawrence Hayes MD [address] [place] [address] 03/03/2025 1:00 PM EDT Office Visit [facility] [address] [place] [address] Ary Santiago, CORONER TRANSPORT TECHNICIAN [address] [facility] [address] [place] [address] documented as of this encounter [...] documented as of this encounter Care Teams Patch Washer Relationship Specialty Start Date End Date Renetta Pardo APRN [address] [place] [address] Dr [address] [place] [address] PCP - General 09/09/23 documented as of this encounter
--- OUTSIDE RECORDS SUMMARY | 2025-02-10 14:18 | XMS_ITS | Encounter Summary ---
Author Organization Healthcare Address [address] [id number] Care Team Providers Care Cad Technician Name Role Phone Renetta Pardo APRN Primary Care Provider [phone] Encounter Details Date Type Department Care Team [...] any time in the past 12 m [facility], were you homeless or living [...] drink first t traci in the morning (EYE-HOSIERY BAGGER) to steady your nerves or to get [...] Office Visit [facility] [address] [place] [address] Ary Santiago, YUN [address] [facility] [address] [place] [address] 02/17/2025 8:40 AM EDT Appointment [facility] Radiology [address], 1st [place] [address] 02/17/2025 9:20 AM EDT Office Visit [facility] Orthopaedic Surgery & Sports Medicine [address], 1[address] [place] [address] Lawrence Hayes MD [address] [facility] [address] [place] [address] 03/03/2025 1:00 PM EDT Office Visit [facility] [address] [place] [address] Ary Santiago APRN [address] [facility] [address] [place] [address] documented as of this encounter Visit Diagnoses Not on filedocumented in this encounter Additional Health Concerns Assessment Noted Time A fall risk assessment has been complete d for the patient 10/04/2023 8:38 AM EST A Body Mass Index follow-up plan has been documented for the patient 01/22/2025 4:22 PM EDT documented as of this encounter Care Teams Cad Technician Relationship Specialty Start Date End Date Renetta Pardo APRN [address] [place] [address] Dr [address] [place] [address] PCP - General 09/09/23 documented as of this encounter
--- OUTSIDE RECORDS SUMMARY | 2025-02-10 14:18 | XMS_ITS | Encounter Summary ---
Author Organization Healthcare Address [address] [place] [address] Care Team Providers Care Visiting Nurse Name Role Phone EdvinCheloRenettagerald Dhaliwal APRN Primary Care Provider [phone] Encounter Details Date Type Department Care Team (Late st Contact Info) Description 01/07/2025 Telephone [facility] Orthopaedic Surgery & Sports Medicine [address], 1[address] [place] [address] Camden Vital, SHOTBLAST EQUIPMENT OPERATOR & ACUTE CARE SURG SV[employer] ADMIN Social [...] in a mcfp (including now)? No 09/12/2023 CAGE ASSESSMENT Answer [...] drink first t traci in the morning (EYE-BULLET LUBRICANT MIXER) to steady your nerves or to get [...] Description 02/11/2025 1:00 PM EDT Office Visit [facility] [address] [place] [address] Ary Santiago, PRIMARY CARE NURSE PRACTITIONER 3101 [facility] [address] [place] [address] 02/17/2025 8:40 AM EDT Appointment [facility] Radiology [address], 1st [place] [address] 02/17/2025 9:20 AM EDT Office Visit [facility] Orthopaedic Surgery & Sports Medicine [address], [address] [place] [address] Lawrence Hayes MD [address] [facility] [address] [place] [address] 03/03/2025 1:00 PM EDT Office Visit [facility] [address] [place] [address] Ary Santiago, PRIMARY CARE NURSE PRACTITIONER [address]01 [facility] [address] [place] [address] documented as of this encounter Visit Diagnoses Not on filedocumented in this encounter Additional Health Concerns Assessment Noted Time A fall risk assessment has been complete d for the patient 10/04/2023 8:38 AM EST A Body Mass Index follow-up plan has been documented for the patient 01/02/2025 10:48 AM EDT documented as of this encounter Care Teams Visiting Nurse Relationship Specialty Start Date End Date Renetta Pardo APRN [address] [place] [address] [place] [address] PCP - General 09/09/23 documented as of this encounter
--- OUTSIDE RECORDS SUMMARY | 2025-02-10 14:18 | XMS_ITS | Encounter Summary ---
Author Organization [facility] Address [address] [id number] Care Team Providers Care Assignment Manager Name Role Phone Renetta Pardo APRN Primary Care Provider [phone] Encounter Details Date Type Department Care Team [...] in a mcc (including now)? No 09/12/2023 CAGE ASSESSMENT Answer [...] drink first t traci in the morning (EYE-BODY TECHNICIAN) to steady your nerves or to [...] Description 02/11/2025 1:00 PM EDT Office Visit [facility] [address] [place] [address] Ary Santiago, TECHNICAL PROJECT MANAGER 3101 [facility] [address] [place] [address] 02/17/2025 8:40 AM EDT Appointment [facility] Radiology [address], 1st [place] [address] 02/17/2025 9:20 AM EDT Office Visit [facility] Orthopaedic Surgery & Sports Medicine [address], [address] [place] [address] Lawrence Hayes MD [address] [place] [address] 03/03/2025 1:00 PM EDT Office Visit [facility] [address] [place] [address] Ary Santiago, TECHNICAL PROJECT MANAGER 3101 [facility] [address] [place] [address] documented as of this encounter Visit Diagnoses Not on filedocumented in this encounter Additional Health Concerns Assessment Noted Time A fall risk assessment has been complete d for the patient 10/04/2023 8:38 AM EST A Body Mass Index follow-up plan has been documented for the patient 01/22/2025 4:22 PM EDT documented as of this encounter Care Teams Assignment Manager Relationship Specialty Start Date End Date Renetta Pardo APRN [address] [place] [address] Dr [address] [place] [address] PCP - General 09/09/23 documented as of this encounter
[2025-02-10 14:27] LABS: Basophils # 0.1 K/mm3 (0-0.2); Basophils % 0.7 % (0.1-2.0); Eosinophils # 0.5 Kmm3 (0.0-0.4); Eosinophils % 7.2 % (0.1-12.0); Hemoglobin 11.8 g/dL (14.1-18.0); Immature Granulocytes # 0.03 10^3uL; Immature Granulocytes % 0.4 %; Lymphocytes # 2.1 K/mm3 (0.7-4.5); Lymphocytes % 28.8 % (10-50); Mean Corpuscular HGB Conc 32.8 g/dL (31.8-35.4); Mean Corpuscular Hemoglobin 29.9 pg (27.0-31.2); Mean Corpuscular Volume 91.1 fl (80-94); Mean Platelet Volume 9.6 fl (7.4-10.4); Monocytes # 0.6 K/mm3 (0.1-1.0); Neutrophils % 54.9 % (37.0-80.0); Nucleated Red Blood Cells # 0 10^3/uL; Nucleated Red Blood Cells % 0 %; Platelet Count 303 K/mm3 (142-424); Red Blood Count 3.95 M/mm3 (4.60-6.20); Red Cell Distribution Width-SD 43.2 fL; White Blood Count 7.2 K/mm3 (4.8-10.8)
[2025-02-10 14:33] LABS: Albumin Level 4.2 g/dl (3.5-5.0)
[2025-02-10 14:36] LABS: Alanine Aminotransferase 28 U/L (12-78); Aspartate Amino Transferase 25 U/L (17-59); Bilirubin,Direct 0.2 mg/dl (0.0-0.4); Bilirubin,Total 0.2 mg/dl (0.2-1.3); Blood Urea Nitrogen 21 mg/dl (9-20); Estimated Glomerular Filt Rate 85 ml/min (>60); GFR (African American) 103 ML/MIN (>60); Total Protein,Serum 7.3 g/dl (6.3-8.2)
[2025-02-10 14:37] LABS: Alkaline Phosphatase 95 U/L (38-126); Creatine Kinase 130 U/L (55-170)
== END 2025-02-10 14:25 | disposition home or self-care (01) ==
LOC: INF 14:14
PROVIDERS: Visit Provider Student in an Organized Health Care Education/Training Program
DX: L03.116 Cellulitis of left lower limb (principal)
CPT/HCPCS: 36592; 80076; 82550; 82565; 84520; 85025

== ENCOUNTER 2025-02-18 12:24 | Outpatient (CLI) | payer MEDICAID, SELFPAY ==
--- OUTSIDE RECORDS SUMMARY | 2024-12-31 23:53 | XMS_ITS | Encounter Summary ---
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 (01/01/2025 2:33 AM EDT) ABO/Rh A Positive 01/01/2025 2:27 AM EDT BLOOD BANK Antibody Screen Negative 01/01/2025 2:27 AM EDT BLOOD BANK Specimen Expiration 01/04/2025 23:59 01/01/2025 2:27 AM EDT BLOOD BANK Blood Venous blood specimen / Unknown Venipuncture / Unknown 01/01/2025 2:33 AM EDT 01/01/2025 2:37 AM EDT Dwaine Das [facility] BLOOD BANK TEST ORDERAB LES Final Result Performing Organization Address [facility] Co de Phone Number BLOOD BANK [address] [place] [address], * Prothrombin Time/INR (01/01/2025 2:33 AM EDT) Prothrombin Time 13.8 12.0 - 14.3 sec LAB COAGULATION METHOD 01/01/2025 3:07 AM EDT [facility] INR 1.1 0.9 - 1.1 LAB COAGULATION METHOD 01/01/2025 3:07 AM EDT [facility] Blood Venous blood specimen / Unknown Venipuncture / Unknown 01/01/2025 2:33 AM EDT 01/01/2025 2:40 AM EDT Narrative [facility] - 01/01/2025 3:07 AM EDT OPTIMAL INR RANGES FOR PATIENT ON ORAL ANTICOAGULANT THERAPY Prevention of venous thromboembolism INR 2.0 to 3.0 In patients with heart disease: Atrial fibrillation INR 2.0 to 3.0 Valvular heart disease INR 2.0 to 3.0 Tissue heart valves INR 2.0 to 3.0 Mechanical prosthetic valves INR 2.5 to 3.5 Prevention of recurrent [place] INR 2.5 to 3.5 [facility]LES Final Result Performing Organization Address City/[facility]/ZIP Co de Phone Number [facility] [address] [place] [address] * (ABNORMAL) Basic Metabolic Panel, Plasma (01/01/2025 2:33 AM EDT) Glucose, Plasma 124(H) 74 - 99 mg/dL 01/01/2025 3:11 AM EDT [facility] BUN, Plasma 6(L) 7 - 21 mg/dL 01/01/2025 3:11 AM EDT [facility] Creatinine, Plasma 0.65(L) 0.70 - 1.20 mg/dL 01/01/2025 3:11 AM EDT [facility] BUN/Creatinine Ratio 9 01/01/2025 3:11 AM EDT [facility] Sodium, Plasma 136 136 - 145 mmol/L 01/01/2025 3:11 AM EDT [facility] Potassium, Plasma 3.7 3.6 - 4.9 mmol/L 01/01/2025 3:11 AM EDT [facility] Chloride, Plasma 103 97 - 107 mmol/L 01/01/2025 3:11 AM EDT [facility] CO2, Plasma 25 22 - 29 mmol/L 01/01/2025 3:11 AM EDT [facility] Anion Gap 8 6 - 16 mmol/L 01/01/2025 3:11 AM EDT [facility] Total Calcium, Plasma 8.7(L) 8.9 - 10.2 mg/dL 01/01/2025 3:11 AM EDT [facility] eGFRcr 126.0 mL/min/1.7 3m*2 01/01/2025 3:11 AM EDT [facility] Comment:Reported eGFRcr in m L/min/1.73m2 is based the CKD-EPI 2020 equation that does not use a race coefficient. Blood Venous blood specimen / Unknown Venipuncture / Unknown 01/01/2025 2:33 AM EDT 01/01/2025 2:44 AM EDT Dwaine Das DO LAB BLOOD ORDERABLES Final Result [facility] [address] [place] [address] * (ABNORMAL) CBC W/O Differential (01/01/2025 2:33 AM EDT) WBC Count 8.98 3.70 - 10.30 10*3/uL LAB HEMATOLOGY METHOD 01/01/2025 2:42 AM EDT [facility] RBC Count 4.56(L) 4.60 - 6.10 10*6/uL LAB HEMATOLOGY METHOD 01/01/2025 2:42 AM EDT [facility] HGB 13.6(L) 13.7 - 17.5 g/dL LAB HEMATOLOGY METHOD 01/01/2025 2:42 AM EDT [facility] HCT 41.2 40.0 - 51.0 % LAB HEMATOLOGY METHOD 01/01/2025 2:42 AM EDT [facility] Platelet Count 223 155 - 369 10*3/uL LAB HEMATOLOGY METHOD 01/01/2025 2:42 AM EDT [facility] MCV 90 79 - 98 fL LAB HEMATOLOGY METHOD 01/01/2025 2:42 AM EDT [facility] MCH 29.8 26.0 - 32.0 pg LAB HEMATOLOGY METHOD 01/01/2025 2:42 AM EDT [facility] MCHC 33.0 30.7 - 35.5 g/dL LAB HEMATOLOGY METHOD 01/01/2025 2:42 AM EDT [facility] RDW 13.2 11.5 - 14.5 % LAB HEMATOLOGY METHOD 01/01/2025 2:42 AM EDT [facility] MPV 10.5 8.8 - 12.5 fL LAB HEMATOLOGY METHOD 01/01/2025 2:42 AM EDT [facility] nRBC 0.0 <=0.0 per 100 WBCs LAB HEMATOLOGY METHOD 01/01/2025 2:42 AM EDT [facility] Blood Venous blood specimen / Unknown Venipuncture / Unknown 01/01/2025 2:33 AM EDT 01/01/2025 2:40 AM EDT Dwaine Crowshivani LAB BLOOD ORDERABLES Final Result [facility] [address] [place] [address] * XR Hip Left 2 or 3 [...] MD on 01/01/2025 2:47 AM us Miguel Das MD IMG XR PROCEDURES Final Result * [...] MD on 01/01/2025 2:47 AM us Miguel Das MD IMG XR PROCEDURES Final Result * [...] the final edited report. Drafted by Richard eHad MD on 01/01/2025 2:10 AM Final report [...] MD on 01/01/2025 2:47 AM us Miguel Das MD IMG XR PROCEDURES Final Result * [...] MD on 01/01/2025 2:47 AM us Miguel Das MD IMG XR PROCEDURES Final Result * [...] MD on 01/01/2025 2:47 AM us Miguel Das MD IMG XR PROCEDURES Final Result * [...] MD on 01/01/2025 2:47 AM us Miguel Das MD IMG XR PROCEDURES Final Result * Creatine Kinase (CK), Total (01/01/2025 12:35 AM EDT) Creatine Kinase, Plasma 65 49 - 320 U/L 01/01/2025 2:56 AM EDT [facility] Blood Venous blood specimen / Unknown Venipuncture / Unknown 01/01/2025 12:35 AM EDT 01/01/2025 12:41 AM EDT us Miguel Das MD LAB BLOOD ORDERABLES Final Resu lt Performing Organization Address [facility]/ZIP Co de Phone Number [facility] [address] [place] [address] * ED HIV 1/2 Antibody/Antigen Screen w/Reflex to HIV 1/2 Differentiation (01/01/2025 12:35 AM EDT) HIV 1 & 2 Antibody/Antigen Screen Non Reactive Non Reactive 01/01/2025 1:33 AM EDT [facility] Comment:Screening for HIV 1 & 2 antibodies, and P24 antigen is NONREACTIVE. No confirmatory testing is required. Blood Venous blood specimen / Unknown Venipuncture / Unknown 01/01/2025 12:35 AM EDT 01/01/2025 12:52 AM EDT us Miguel Das MD LAB BLOOD ORDERABLES Final Resu lt Performing Organization Address [facility] [place] [address] * Hepatitis C Antibody - ED (01/01/2025 12:35 AM EDT) Hepatitis C Antibody Negative Negative 01/01/2025 1:33 AM EDT [facility] Blood Venous blood specimen / Unknown Venipuncture / Unknown 01/01/2025 12:35 AM EDT 01/01/2025 12:52 AM EDT us Miguel Das MD LAB BLOOD ORDERABLES Final Resu lt Performing Organization Address [facility]/ZIP Co de Phone Number [facility] [address] [place] [address] * PT-INR (01/01/2025 12:35 AM EDT) Prothrombin Time 14.1 12.0 - 14.3 sec 01/01/2025 1:00 AM EDT [facility] INR 1.1 0.9 - 1.1 01/01/2025 1:00 AM EDT [facility] Blood Venous blood specimen / Unknown Venipuncture / Unknown 01/01/2025 12:35 AM EDT 01/01/2025 12:41 AM EDT Narrative [facility] - 01/01/2025 1:00 AM EDT OPTIMAL INR RANGES FOR PATIENT ON ORAL ANTICOAGULANT THERAPY Prevention of venous thromboembolism INR 2.0 to 3.0 In patients with heart disease: Atrial fibrillation INR 2.0 to 3.0 Valvular heart disease INR 2.0 to 3.0 Tissue heart valves INR 2.0 to 3.0 Mechanical prosthetic valves INR 2.5 to 3.5 Prevention of recurrent [place] INR 2.5 to 3.5 us Miguel Das MD LAB BLOOD ORDERABLES Final Resu lt [facility] [address] [place] [address] * (ABNORMAL) CMP (01/01/2025 12:35 AM EDT) Pathologist [facility] Glucose, Plasma 110(H) 74 - 99 mg/dL 01/01/2025 1:07 AM EDT [facility] BUN, Plasma 6(L) 7 - 21 mg/dL 01/01/2025 1:07 AM EDT [facility] Creatinine, Plasma 0.72 0.70 - 1.20 mg/dL 01/01/2025 1:07 AM EDT [facility] BUN/Creatinine Ratio 8 01/01/2025 1:07 AM EDT [facility] Sodium, Plasma 136 136 - 145 mmol/L 01/01/2025 1:07 AM EDT [facility] Potassium, Plasma 3.7 3.6 - 4.9 mmol/L 01/01/2025 1:07 AM EDT [facility] Chloride, Plasma 101 97 - 107 mmol/L 01/01/2025 1:07 AM EDT [facility] CO2, Plasma 24 22 - 29 mmol/L 01/01/2025 1:07 AM EDT [facility] Anion Gap 11 6 - 16 mmol/L 01/01/2025 1:07 AM EDT [facility] Total Calcium, Plasma 8.6(L) 8.9 - 10.2 mg/dL 01/01/2025 1:07 AM EDT [facility] Total Protein 6.7 6.3 - 7.9 g/dL 01/01/2025 1:07 AM EDT [facility] Albumin, Plasma 3.8 3.5 - 5.2 g/dL 01/01/2025 1:07 AM EDT [facility] AST, Plasma 17 10 - 50 U/L 01/01/2025 1:07 AM EDT [facility] ALT, Plasma 33 10 - 50 U/L 01/01/2025 1:07 AM EDT [facility] Alkaline Phosphatase, Plasma 98 40 - 115 U/L 01/01/2025 1:07 AM EDT [facility] Total Bilirubin, Plasma 0.4 0.2 - 1.1 mg/dL 01/01/2025 1:07 AM EDT [facility] eGFRcr 122.2 mL/min/1.7 3m*2 01/01/2025 1:07 AM EDT [facility] Comment:Reported eGFRcr in m L/min/1.73m2 is based the CKD-EPI 2020 equation that does not use a race coefficient. Blood Venous blood specimen / Unknown Venipuncture / Unknown 01/01/2025 12:35 AM EDT 01/01/2025 12:41 AM EDT us Miguel Das MD LAB BLOOD ORDERABLES Final Resu lt [facility] [address] [place] [address] * (ABNORMAL) CBC w/diff (01/01/2025 12:35 AM EDT) WBC Count 9.24 3.70 - 10.30 10*3/uL LAB HEMATOLOGY METHOD 01/01/2025 12:45 AM EDT [facility] RBC Count 4.75 4.60 - 6.10 10*6/uL LAB HEMATOLOGY METHOD 01/01/2025 12:45 AM EDT [facility] HGB 14.2 13.7 - 17.5 g/dL LAB HEMATOLOGY METHOD 01/01/2025 12:45 AM EDT [facility] HCT 43.1 40.0 - 51.0 % LAB HEMATOLOGY METHOD 01/01/2025 12:45 AM EDT [facility] Platelet Count 229 155 - 369 10*3/uL LAB HEMATOLOGY METHOD 01/01/2025 12:45 AM EDT [facility] MCV 91 79 - 98 fL LAB HEMATOLOGY METHOD 01/01/2025 12:45 AM EDT [facility] MCH 29.9 26.0 - 32.0 pg LAB HEMATOLOGY METHOD 01/01/2025 12:45 AM EDT [facility] MCHC 32.9 30.7 - 35.5 g/dL LAB HEMATOLOGY METHOD 01/01/2025 12:45 AM EDT [facility] RDW 13.2 11.5 - 14.5 % LAB HEMATOLOGY METHOD 01/01/2025 12:45 AM EDT [facility] MPV 10.8 8.8 - 12.5 fL LAB HEMATOLOGY METHOD 01/01/2025 12:45 AM EDT [facility] nRBC 0.0 <=0.0 per 100 WBCs LAB HEMATOLOGY METHOD 01/01/2025 12:45 AM EDT [facility] Differential Type Automated LAB HEMATOLOGY METHOD 01/01/2025 12:45 AM EDT [facility] Neutrophils % 66 % LAB HEMATOLOGY METHOD 01/01/2025 12:45 AM EDT [facility] Lymphocytes % 21 % LAB HEMATOLOGY METHOD 01/01/2025 12:45 AM EDT [facility] Monocytes % 10 % LAB HEMATOLOGY METHOD 01/01/2025 12:45 AM EDT [facility] Eosinophils % 3 % LAB HEMATOLOGY METHOD 01/01/2025 12:45 AM EDT [facility] Basophils % 0 % LAB HEMATOLOGY METHOD 01/01/2025 12:45 AM EDT [facility] Immature Granulocytes % 0 % LAB HEMATOLOGY METHOD 01/01/2025 12:45 AM EDT [facility] Neutrophils Absolute 6.03 1.60 - 6.10 10*3/uL LAB HEMATOLOGY METHOD 01/01/2025 12:45 AM EDT [facility] Lymphocytes Absolute 1.95 1.20 - 3.90 10*3/uL LAB HEMATOLOGY METHOD 01/01/2025 12:45 AM EDT [facility] Monocytes Absolute 0.95(H) 0.30 - 0.90 10*3/uL LAB HEMATOLOGY METHOD 01/01/2025 12:45 AM EDT [facility] Eosinophils Absolute 0.25 0.00 - 0.50 10*3/uL LAB HEMATOLOGY METHOD 01/01/2025 12:45 AM EDT [facility] Basophils Absolute 0.03 0.00 - 0.10 10*3/uL LAB HEMATOLOGY METHOD 01/01/2025 12:45 AM EDT [facility] Immature Granulocytes Absolute 0.03 0.00 - 0.06 10*3/uL LAB HEMATOLOGY METHOD 01/01/2025 12:45 AM EDT [facility] Blood Venous blood specimen / Unknown Venipuncture / Unknown 01/01/2025 12:35 AM EDT 01/01/2025 12:41 AM EDT Narrative [facility] - 01/01/2025 12:45 AM EDT Therapeutic decision making should be based on absolute values, rather than percentages. us Miguel Das MD LAB BLOOD ORDERABLES Final Resu lt Performing Organization Address [facility]/ZIP Co de Phone Number [facility] [address] [place] [address] * Light Green Top (01/01/2025 12:27 AM EDT) Extra Hold for add-ons 01/01/2025 3:02 AM EDT [facility] Comment:Auto resulted. Blood Venous blood specimen / Unknown 01/01/2025 12:27 AM EDT 01/01/2025 12:42 AM EDT us Miguel Das MD LAB BLOOD ORDERABLES Final Resu lt Performing Organization Address City/[facility]/ZIP Co de Phone Number [facility] [address] [place] [address] * EKG now - STAT (adult) (01/01/2025 12:26 AM EDT) EKG DIAGNOSIS CLASS Normal MUSE ECG Ventricular Rate 81 BPM MUSE ECG Atrial Rate 81 BPM MUSE ECG IA Interval 118 ms MUSE ECG QRSD Interval 106 ms MUSE ECG QT Interval 372 ms MUSE ECG QTC Interval 432 ms MUSE ECG P Garwood 55 degrees MUSE ECG R [place] 54 degrees MUSE ECG T Wave [place] 48 degrees MUSE ECG Diagnosis Normal sinus rhythm MUSE ECG Diagnosis Normal ECG MUSE ECG Diagnosis MUSE ECG Diagnosis Confirmed by Johnathan Black ([id number]) on 01/01/2025 9:03:10 AM MUSE ECG 01/01/2025 12:2 6 AM EDT 01/01/2025 9:03 AM EDT us Miguel Das MD ECG ORDERABLES Final Result MUSE ECG documented in this encounter Visit Diagnoses Diagnosis Closed fracture of lateral portion of left tibial plateau, initial encounter Closed fracture of lateral portion of left tibial plateau, initial encounter Tibial plateau fracture, left, closed, initial encounter Surgical site infection documented in this encounter Admitting Diagnoses Diagnosis [...] Starting on Mon01/01/25 at 0650, Until Sneha 22/25 at 1409, Routine, constipation, if no bowel movement for 72 hours and no response to magnesium hydroxide ceFAZolin (Ancef) injection 2 g 2 g, Intravenous, Every 8 hours, 3 doses, First dose on Mon01/01/25 at 1945, Last dose on Mon01/02/25 at 1145, Routine, Recovery(Phase II-Outpatient)/On Unit(Inpatient) Given [...] PRN, Starting on Mon01/01/25 at 0650, Until Mon01/02/25 at 1409, Routine, constipation, if no bowel [...] Sneha 01/02/25 at 1409, Routine, moderate pain Given 01/02/2025 [...] (Override Pull - Provider: Benedict Castillo, SHEREEN) acetaminophen (Tylenol) tablet 1,000 mg 1,000 mg, Oral, Every 6 hours, First dose on Mon01/01/25 at 0655, Until Discontinued, Routine 0711 (Given - Provider: Loreta Marvin, SHEREEN)1119 (MAR Hold - Provider: Automatic Transfer Provider - Reason: Patient in procedure)1255 (Dose Auto Held - Provider: Automatic Transfer Provider)1342 (MAR Unhold - Provider: aNty Castellanos RN)1345 (Given - Provider: Naty Castellanos RN)1804 (Given - Provider: Teri Mares RN)2306 (Given [...] 01/02/25 at 1145, Routine, Recovery(Phase II-Outpatient)/On Unit(Inpatient) 2026 [...] RN) 0229 (Medication Applied - Provider: Josefina Castaneda RN) oxyCODONE (Roxicodone) immediate release tablet 5 mg [...] (MAR Unhold - Provider: Naty Castellanos RN) 0800 [...] Transfer Provider - Reason: Patient in procedure)1342 ([facility] Unhold - Provider: Naty Castellanos, RN)202 (Given - Provider: Josefina Castaneda, RN) 0800 (Given - Provider: Constance Castañeda, SHEREEN) sodium chloride 0.9 % flush 10 mL (CANCELED)(Linked Group 1) 10 mL, Intravenous, Every 12 hours, First dose on Mon01/01/25 at 0910, Until Discontinued, Routine, Holding - Preprocedure 0918 (Given - Provider: Genoveva Branham RN)1119 (OCT Hold - Provider: Automatic Transfer Provider - Reason: Patient in procedure)1342 ([facility] Unhold - Provider: Naty Castellanos, SHEREEN) sodium chloride 0.9 % flush 10 mL(Linked Group 2) 10 mL, Intravenous, Every 12 hours, First dose on Mon01/01/25 at 0655, Until Discontinued, Routine 0712 (Given - Provider: Loreta Marvin, SHEREEN)1119 ([facility] Hold - Provider: Automatic Transfer Provider - Reason: Patient in procedure)1342 ([facility] Unhold - Provider: Naty Castellanos, SHEREEN)1805 (Given - Provider: Teri Mares, SHEREEN) 0638 (Given - Provider: Josefina Castaneda, SHEREEN) PRN Medication Order 12/31/2024 01/01/2025 01/02/2025 bisacodyl (Dulcolax) suppository 10 mg 10 mg, Rectal, Daily PRN, Starting on Mon01/01/25 at 0650, Until Sneha 01/02/25 at 1409, Routine, constipation, if no bowel movement for 72 hours and no response to magnesium hydroxide 111 (OCT Hold - Provider: Automatic Transfer Provider - Reason: Patient in procedure)1342 ([facility] Unhold - Provider: Naty Castellanos, SHEREEN) fentaNYL (Sublimaze) injection 50 mcg (COMPLETED) 50 mcg, Intravenous, Every 5 min PRN, 2 doses, Starting on Mon01/01/25 at 1241, Until Mon01/01/25 at 1415, Routine, Recovery (Phase I only), pain score of 5-8 out of 10 1410 (Given - Provider: Naty Castellanos RN)1415 (Given - Provider: Naty Castellanos RN) gabapentin (Neurontin) capsule 200 mg (COMPLETED) 200 mg, Oral, Once as needed, 1 dose, Starting on Mon01/01/25 at 1527, Until Mon01/01/25 at 1530, Routine, Recovery (Phase I only), neuropathic pain 1530 (Given - Provider: Naty Castellanos RN) HYDROmorphone (Dilaudid) injection 0.5 mg (COMPLETED) 0.5 [...] 01/02/25 at 1409, Routine, mild pain 1119 (MAR Hold - Provider: Automatic Transfer Provider - [...] no bowel movement for 48 hours 1119 (MAR Hold - Provider: Automatic Transfer Provider - Reason: Patient in procedure)1342 (MAR Unhold - Provider: Naty Castellanos, SHEREEN) naloxone (Narcan) injection 0.08 mg 0.08 mg, Intravenous, As needed, Starting on Mon01/01/25 at 0652, Until Sneha 01/02/25 at 1409, Routine, respiratory depression, every 2 minutes 1119 (OCT Hold - Provider: Automatic Transfer Provider - Reason: Patient in procedure)1342 ([facility] Unhold - Provider: Naty Castellanos, SHEREEN) oxyCODONE (Roxicodone) immediate release tablet 10 mg [...] 0822 (Given - Provider: Loreta Marvin, SHEREEN)1119 ([facility] Hold - Provider: Automatic Transfer Provider - Reason: Patient in procedure)1342 ([facility] Unhold - Provider: Naty Castellanos RN)1804 (Given [...] Transfer Provider - Reason: Patient in procedure)1342 ([facility] Unhold - Provider: Naty Castellanos RN) traMADol (Ultram) tablet 50 mg 50 mg, Oral, Every 6 hours PRN, Starting on Mon01/01/25 at 0652, Until Sneha 01/02/25 at 1409, Routine, severe pain, pain not responsive to non-opioid analgesics 1119 (OCT Hold - Provider: Automatic Transfer Provider - Reason: Patient in procedure)1342 (MAR Unhold - Provider: Naty Castellanos, RN)1345 (Given - Provider: Naty Castellanos, RN)2027 (Given - Provider: Josefina Castaneda, SHEREEN) Linked Groups Order Group 1: Insert peripheral [...] documented as of this encounter Care Teams Information Delivery Analyst Relationship Specialty Start Date End Date Renetta Pardo APRN [address] [place] [address] [place] [address] PCP - General 09/09/23 02/16/25 documented as of this encounter
--- OUTSIDE RECORDS SUMMARY | 2025-01-01 10:30 | XMS_ITS | Encounter Summary ---
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 EDT [facility] RDW 13.2 11.5 - 14.5 % LAB HEMATOLOGY METHOD 01/01/2025 2:42 AM EDT [facility] MPV 10.5 8.8 - 12.5 fL LAB HEMATOLOGY METHOD 01/01/2025 2:42 AM EDT [facility] nRBC 0.0 <=0.0 per 100 WBCs LAB HEMATOLOGY METHOD 01/01/2025 2:42 AM EDT [facility] Blood Venous blood specimen / Unknown Venipuncture / Unknown 01/01/2025 2:33 AM EDT 01/01/2025 2:40 AM EDT Dwaine Das DO LAB BLOOD ORDERABLES Final Result Performing Organization Address City/State/[facility] Co de Phone Number [facility] [address] [place] [address] * XR Hip Left 2 or 3 [...] - 320 U/L 01/01/2025 2:56 AM EDT [facility] Blood Venous blood specimen / Unknown Venipuncture / Unknown 01/01/2025 12:35 AM EDT 01/01/2025 12:41 AM EDT us Miguel Das MD LAB BLOOD ORDERABLES Final Resu lt [facility] [address] [place] [address] * ED HIV 1/2 Antibody/Antigen Screen w/Reflex to HIV 1/2 Differentiation (01/01/2025 12:35 AM EDT) Pathologist [facility] HIV 1 & 2 Antibody/Antigen Screen Non Reactive Non Reactive 01/01/2025 1:33 AM EDT [facility] Comment:Screening for HIV 1 & 2 antibodies, and P24 antigen is NONREACTIVE. No confirmatory testing is required. Blood Venous blood specimen / Unknown Venipuncture / Unknown 01/01/2025 12:35 AM EDT 01/01/2025 12:52 AM EDT us Miguel Das MD LAB BLOOD ORDERABLES Final Resu lt Performing Organization Address [facility]/ZIP Co de Phone Number [facility] [address] [place] [address] * Hepatitis C Antibody - ED (01/01/2025 12:35 AM EDT) Pathologist [facility] Hepatitis C Antibody Negative Negative 01/01/2025 1:33 AM EDT [facility] Blood Venous blood specimen / Unknown Venipuncture / Unknown 01/01/2025 12:35 AM EDT 01/01/2025 12:52 AM EDT us Miguel Das MD LAB BLOOD ORDERABLES Final Resu lt Performing Organization Address [facility] [place] [address] * PT-INR (01/01/2025 12:35 AM EDT) [facility] Prothrombin Time 14.1 12.0 - 14.3 sec 01/01/2025 1:00 AM EDT [facility] INR 1.1 0.9 - 1.1 01/01/2025 1:00 AM EDT [facility] Blood Venous blood specimen / Unknown Venipuncture / Unknown 01/01/2025 12:35 AM EDT 01/01/2025 12:41 AM EDT Narrative [facility] - 01/01/2025 1:00 AM EDT OPTIMAL INR RANGES FOR PATIENT ON ORAL ANTICOAGULANT THERAPY Prevention of venous thromboembolism INR 2.0 to 3.0 In patients with heart disease: Atrial fibrillation INR 2.0 to 3.0 Valvular heart disease INR 2.0 to 3.0 Tissue heart valves INR 2.0 to 3.0 Mechanical prosthetic valves INR 2.5 to 3.5 Prevention of recurrent SD INR 2.5 to 3.5 us Miguel Das MD LAB BLOOD ORDERABLES Final Resu lt [facility] [address] [place] [address] * (ABNORMAL) CMP (01/01/2025 12:35 AM EDT) Glucose, Plasma 110(H) 74 - 99 mg/dL 01/01/2025 1:07 AM EDT [facility] BUN, Plasma 6(L) 7 - 21 mg/dL 01/01/2025 1:07 AM EDT [facility] Creatinine, Plasma 0.72 0.70 - 1.20 mg/dL 01/01/2025 1:07 AM EDT [facility] BUN/Creatinine Ratio 8 01/01/2025 1:07 AM EDT [facility] Sodium, Plasma 136 136 - 145 mmol/L 01/01/2025 1:07 AM EDT [facility] Potassium, Plasma 3.7 3.6 - 4.9 mmol/L 01/01/2025 1:07 AM EDT [facility] Chloride, Plasma 101 97 - 107 mmol/L 01/01/2025 1:07 AM EDT [facility] CO2, Plasma 24 22 - 29 mmol/L 01/01/2025 1:07 AM EDT [facility] Anion Gap 11 6 - 16 mmol/L 01/01/2025 1:07 AM EDT [facility] Total Calcium, Plasma 8.6(L) 8.9 - 10.2 mg/dL 01/01/2025 1:07 AM EDT [facility] Total Protein 6.7 6.3 - 7.9 g/dL 01/01/2025 1:07 AM EDT [facility] Albumin, Plasma 3.8 3.5 - 5.2 g/dL 01/01/2025 1:07 AM EDT [facility] AST, Plasma 17 10 - 50 U/L 01/01/2025 1:07 AM EDT [facility] ALT, Plasma 33 10 - 50 U/L 01/01/2025 1:07 AM EDT [facility] Alkaline Phosphatase, Plasma 98 40 - 115 U/L 01/01/2025 1:07 AM EDT [facility] Total Bilirubin, Plasma 0.4 0.2 - 1.1 mg/dL 01/01/2025 1:07 AM EDT [facility] eGFRcr 122.2 mL/min/1.7 3m*2 01/01/2025 1:07 AM EDT [facility] Comment:Reported eGFRcr in m L/min/1.73m2 is based the CKD-EPI 2020 equation that does not use a race coefficient. Blood Venous blood specimen / Unknown Venipuncture / Unknown 01/01/2025 12:35 AM EDT 01/01/2025 12:41 AM EDT us Miguel Das MD LAB BLOOD ORDERABLES Final Resu lt [facility] [address] [place] [address] * (ABNORMAL) CBC w/diff (01/01/2025 12:35 AM EDT) WBC Count 9.24 3.70 - 10.30 10*3/uL LAB HEMATOLOGY METHOD 01/01/2025 12:45 AM EDT [facility] RBC Count 4.75 4.60 - 6.10 10*6/uL LAB HEMATOLOGY METHOD 01/01/2025 12:45 AM EDT [facility] HGB 14.2 13.7 - 17.5 g/dL LAB HEMATOLOGY METHOD 01/01/2025 12:45 AM EDT [facility] HCT 43.1 40.0 - 51.0 % LAB HEMATOLOGY METHOD 01/01/2025 12:45 AM EDT [facility] Platelet Count 229 155 - 369 10*3/uL LAB HEMATOLOGY METHOD 01/01/2025 12:45 AM EDT [facility] MCV 91 79 - 98 fL LAB HEMATOLOGY METHOD 01/01/2025 12:45 AM EDT [facility] MCH 29.9 26.0 - 32.0 pg LAB HEMATOLOGY METHOD 01/01/2025 12:45 AM EDT [facility] MCHC 32.9 30.7 - 35.5 g/dL LAB HEMATOLOGY METHOD 01/01/2025 12:45 AM EDT [facility] RDW 13.2 11.5 - 14.5 % LAB HEMATOLOGY METHOD 01/01/2025 12:45 AM EDT [facility] MPV 10.8 8.8 - 12.5 fL LAB HEMATOLOGY METHOD 01/01/2025 12:45 AM EDT [facility] nRBC 0.0 <=0.0 per 100 WBCs LAB HEMATOLOGY METHOD 01/01/2025 12:45 AM EDT [facility] Differential Type Automated LAB HEMATOLOGY METHOD 01/01/2025 12:45 AM EDT [facility] Neutrophils % 66 % LAB HEMATOLOGY METHOD 01/01/2025 12:45 AM EDT [facility] Lymphocytes % 21 % LAB HEMATOLOGY METHOD 01/01/2025 12:45 AM EDT [facility] Monocytes % 10 % LAB HEMATOLOGY METHOD 01/01/2025 12:45 AM EDT [facility] Eosinophils % 3 % LAB HEMATOLOGY METHOD 01/01/2025 12:45 AM EDT [facility] Basophils % 0 % LAB HEMATOLOGY METHOD 01/01/2025 12:45 AM EDT [facility] Immature Granulocytes % 0 % LAB HEMATOLOGY METHOD 01/01/2025 12:45 AM EDT [facility] Neutrophils Absolute 6.03 1.60 - 6.10 10*3/uL LAB HEMATOLOGY METHOD 01/01/2025 12:45 AM EDT [facility] Lymphocytes Absolute 1.95 1.20 - 3.90 10*3/uL LAB HEMATOLOGY METHOD 01/01/2025 12:45 AM EDT [facility] Monocytes Absolute 0.95(H) 0.30 - 0.90 10*3/uL LAB HEMATOLOGY METHOD 01/01/2025 12:45 AM EDT [facility] Eosinophils Absolute 0.25 0.00 - 0.50 10*3/uL LAB HEMATOLOGY METHOD 01/01/2025 12:45 AM EDT [facility] Basophils Absolute 0.03 0.00 - 0.10 10*3/uL LAB HEMATOLOGY METHOD 01/01/2025 12:45 AM EDT [facility] Immature Granulocytes Absolute 0.03 0.00 - 0.06 10*3/uL LAB HEMATOLOGY METHOD 01/01/2025 12:45 AM EDT [facility] Blood Venous blood specimen / Unknown Venipuncture / Unknown 01/01/2025 12:35 AM EDT 01/01/2025 12:41 AM EDT Narrative [facility] - 01/01/2025 12:45 AM EDT Therapeutic decision making should be based on absolute values, rather than percentages. us Miguel Das MD LAB BLOOD ORDERABLES Final Resu lt Performing Organization Address [facility]/ZIP Co de Phone Number [facility] [address] [place] [address] * Light Green Top (01/01/2025 12:27 AM EDT) Extra Hold for add-ons 01/01/2025 3:02 AM EDT [facility] Comment:Auto resulted. Blood Venous blood specimen / Unknown 01/01/2025 12:27 AM EDT 01/01/2025 12:42 AM EDT us Miguel Das MD LAB BLOOD ORDERABLES Final Resu lt Performing Organization Address City/[facility]/ZIP Co de Phone Number [facility] [address] [place] [address] * EKG now - STAT (adult) (01/01/2025 12:26 AM EDT) EKG DIAGNOSIS CLASS Normal MUSE ECG Ventricular Rate 81 BPM MUSE ECG Atrial Rate 81 BPM MUSE ECG NM Interval 118 ms MUSE ECG QRSD Interval 106 ms MUSE ECG QT Interval 372 ms MUSE ECG QTC Interval 432 ms MUSE ECG P [place] 55 degrees MUSE ECG R [place] 54 degrees MUSE ECG T Wave [place] 48 degrees MUSE ECG Diagnosis Normal sinus [...] Teri Mares, SHEREEN)2306 (Given - Provider: Josefina Castaneda, SHEREEN) 0637 [...] Transfer Provider - Reason: Patient in procedure)1342 ([facility] Unhold - Provider: Naty Castellanos, SHEREEN) 022 [...] - Provider: Loreta Marvin RN - Reason: NPO)111 (OCT Hold - Provider: Automatic Transfer Provider - Reason: Patient in procedure)134 ([facility] Unhold - Provider: Naty Castellanos, SHEREEN) 0800 [...] 0822 (Given - Provider: Loreta Marvin, SHEREEN)111 ([facility] Hold - Provider: Automatic Transfer Provider - Reason: Patient in procedure)1342 ([facility] Unhold - Provider: Naty Castellanos, SHEREEN)202 (Given - Provider: Josefina Castaneda, SHEREEN) 0800 (Given - Provider: Constance Castañeda, SHEREEN) sodium chloride 0.9 % flush 10 mL (CANCELED)(Linked Group 1) 10 mL, Intravenous, Every 12 hours, First dose on Mon01/01/25 at 0910, Until Discontinued, Routine, Holding - Preprocedure 0918 (Given - Provider: Genoveva Branham, RN)1119 (OCT Hold - Provider: Automatic Transfer Provider - Reason: Patient in procedure)1342 ([facility] Unhold - Provider: Naty Castellanos, SHEREEN) sodium chloride 0.9 % flush 10 mL(Linked Group 2) 10 mL, Intravenous, Every 12 hours, First dose on Mon01/01/25 at 0655, Until Discontinued, Routine 0712 (Given - Provider: Loreta Marvin, SHEREEN)1119 (OCT Hold - Provider: Automatic Transfer Provider - Reason: Patient in procedure)1342 ([facility] Unhold - Provider: Naty Castellanos, SHEREEN)1805 (Given - Provider: Teri Mares, SHEREEN) 0638 (Given - Provider: Josefina Castaneda RN) PRN Medication Order 12/31/2024 01/01/2025 01/02/2025 bisacodyl (Dulcolax) suppository 10 mg 10 mg, Rectal, Daily PRN, Starting on Mon01/01/25 at 0650, Until Sneha 01/02/25 at 1409, Routine, constipation, if no bowel movement for 72 hours and no response to magnesium hydroxide 1119 ([facility] Hold - Provider: Automatic Transfer Provider - Reason: Patient in procedure)1342 ([facility] Unhold - Provider: Naty Castellanos, SHEREEN) fentaNYL [...] < 65 1440 (Given - Provider: Naty Castellanos, SHEREEN) magnesium hydroxide (Milk of Magnesia) 400 MG/5ML suspension 30 mL 30 mL, Oral, Daily PRN, Starting on Mon01/01/25 at 0650, Until Sneha 01/02/25 at 1409, Routine, constipation, if no bowel movement for 48 hours 1119 (OCT Hold - Provider: Automatic Transfer Provider - Reason: Patient in procedure)1342 ([facility] Unhold - Provider: Naty Castellanos RN) naloxone (Narcan) injection 0.08 mg 0.08 mg, Intravenous, As needed, Starting on Mon01/01/25 at 0652, Until Sneha 01/02/25 at 1409, Routine, respiratory depression, every 2 minutes 1119 (OCT Hold - Provider: Automatic Transfer Provider - Reason: Patient in procedure)1342 ([facility] Unhold - Provider: Naty Castellanos RN) [...] Transfer Provider - Reason: Patient in procedure)1342 ([facility] Unhold - Provider: Naty Castellanos, SHEREEN)1804 (Given - Provider: Teri Mares, SHEREEN)2305 (Given - Provider: Josefina Castaneda, SHEREEN) 0637 (Given - Provider: Josefina Castaneda, SHEREEN) sodium chloride 0.9 % flush 10 mL(Linked Group 2) 10 mL, Intravenous, As needed, Starting on Mon01/01/25 at 0650, Until Sneha 01/02/25 at 1409, Routine, line care 1119 ([facility] Hold - Provider: Automatic Transfer Provider - Reason: Patient in procedure)1342 ([facility] Unhold - Provider: Naty Castellanos RN) traMADol (Ultram) tablet 50 mg 50 mg, Oral, Every 6 hours PRN, Starting on Mon01/01/25 at 0652, Until Sneha 01/02/25 at 1409, Routine, severe pain, pain not responsive to non-opioid analgesics 1119 ([facility] Hold - Provider: Automatic Transfer Provider - Reason: Patient in procedure)1342 ([facility] Unhold - Provider: Naty Castellanos RN)1345 (Given [...] documented as of this encounter Care Teams Publicity Person Relationship Specialty Start Date End Date Renetta Pardo APRN [address] [place] [address] [place] [address] PCP - General 09/09/23 02/16/25 documented as of this encounter
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
--- OUTSIDE RECORDS SUMMARY | 2025-01-15 21:32 | XMS_ITS | Encounter Summary ---
Author Organization Healthcare Address [address] [place] [address] Care Team Providers Care Truck Guard Name Role Phone Renetta Pardo APRN Primary Care Provider [phone] Reason for Visit * Reason Comments Post-op Problem * Auth/Cert (Routine) Specialty Diagnoses / Procedures Referred By Adalid t Referred To Contact Diagnoses Acute postoperative pain Cellulitis of leg, left Cellulitis of left lower extremity Sepsis following procedure, initial encounter ([facility]) recent LLE surgery @ now with cellulitis Sachin Garza MD [id number] [place] [address] Phone: tel: fax: [facility] [address] [place] [address] Phone: tel: Referral ID Status Reason Start Date Expiration Date Visits Re quested Visits Authorized [id number] 1 1 Encounter Details Date Type Department Care Team (Latest Contact Info) Description 01/15/2025 9:32 PM EDT - 01/22/2025 5:16 PM EDT Hospital Encounter [facility] In[facility] [address] [place] [address] Philippe Mann MD [address] [place] [address] Jeffrey Matute MD [address] [place] [facility] [address] Danny Ly MD [address] [place] [address] Sachin Garza MD [address] [facility] [address] [place] [address] Cellulitis of leg, left (Primary Dx); Sepsis following procedure, initial encounter ([facility]); Cellulitis of left lower extremity; Acute [...] place to sleep or slept in a detention (including now)? No 09/12/2023 Humiliation, Afraid, Rape, [...] any time in the past [facility], were you homeless or living in a detention (including now)? No 01/17/2025 CAGE ASSESSMENT Answer [...] first t traci in the morning (EYE-DIRECTOR OF PROGRAM MANAGEMENT) to steady your nerves or to get rid of a hangover? 0 09/10/2023 CAGE Questionnaire Score 0 024 Utilities Answer Date Recorded In the past 12 months has th e [employer], gas, oil, or water company threatened to [...] (Lifetime) No 8:00 PM EDT Taryn Miranda, SHEREEN documented as of this encounter Medications at Time of Discharge acetaminophen (Tylenol) 500 MG tablet Take 2 tablets by mouth every 6 hours as needed for pain. 100 tablet 01/02/2025 DAPTOmycin (Cubicin) injectionIndicati ons:Cellulitis of leg, left Infuse 22 mL into a venous catheter 1 (one) time each day at the same time over 3 minutes. Inpatient/[place] specific directions only. Mix and deliver per institution/faci lity policy. 1 each 01/22/2025 5 ibuprofen 400 MG tablet Take 1 [...] if symptoms continue 2 each 2 01/02/2025 6 Nutritional Supplements (Paul) pack Take 1 packet by mouth 2 times a day. 30 each 01/02/2025 oxyCODONE (Oxy-IR) 5 MG immediate release capsuleIndication s:Acute Pain Take 1 capsule by mouth every 6 hours as needed for severe pain. 25 capsule 01/22/2025 senna-docusate (Janeth-Colace) 8.6-50 MG tablet Take 1 tablet by mouth 2 times a day. 28 tablet 01/02/2025 enoxaparin (Lovenox) 60 MG/0.6ML solution prefilled syringe Inject 0.6 mL under the skin 2 times a day for 53 doses. 31.8 mL 01/02/2025 5 documented as of this encounter [...] the video go to this web address: https://bit.[email or web address] Or, scan this QR code with your smart phone ?? [facility] * [facility] Leigh Rg RN - 01/22/2025 4:21 PM EDT Images from the original note were not included. 62146 Flushing Your PICC Line at Home Your [...] soap and water, use an alcohol-based hand bottle packing machine cleaner. The gel should have at least 60% [...] Put the syringe into a special container ([employer] container). When to contact your doctor Contact [...] PICC. Last Reviewed Date: 2024 00:00:00 ?? 2233-2883 [employer]. All rights reserved. This information is not intended as a substitute for professional medical care. Always follow your healthcare professional's instructions. * Rosaura OnIR - Leigh Rg RN - 01/22/2025 4:21 PM EDT Images from the original note were not included. 02588 Discharge Instructions: Changing the Dressing on Your [...] damage Last Reviewed Date: 2024 00:00:00 ?? 4838-6212 [employer]. All rights reserved. This information is not [...] the video go to this web address: [email or web address], scan this QR code with your smart phone ?? [facility] * Leigh Muller RN - 01/22/2025 4:20 PM EDT Images from the original note were not included. 55419 Understanding Post Sepsis Syndrome (PSS) Sepsis is [...] infections Last Reviewed Date: 2022 00:00:00 ?? 9916-5353 [employer]. All rights reserved. This information is not intended as a substitute for professional medical care. Always follow your healthcare professional's instructions. * [facility] Leigh Rg RN - 01/22/2025 4:20 PM EDT Images from the original note were not included. [id number] Buckle (Torus) Fracture of a Leg Your [...] wet, you can dry it with a electronics technology department chair on the cool setting. ? Put an [...] doctor Last Reviewed Date: 2024 00:00:00 ?? 1189-6941 [employer]. All rights reserved. This information is not intended as a substitute for professional medical care. Always follow your healthcare professional's instructions. * Rosaura Rush[facility] - Leigh Rg RN - 01/22/2025 4:20 PM EDT Images from the original note were not included. 25602 Discharge Instructions for Cellulitis You have been [...] are in pain. Ask what kind of qavw-nyb-bcsrejw medicine you can take for pain. ? [...] Vomiting. Last Reviewed Date: 2024 00:00:00 ?? 4667-9238 [employer]. All rights reserved. This information is not intended as a substitute for professional medical care. Always follow your healthcare professional's instructions. * Discharge Summary - Mauricio Mondragon MD - 01/22/2025 4:16 PM EDT Hospitalization Admit Date/Time: 01/15/2025 9:32 PM Admitting Attending: Sachin Garza Discharge Date: 01/22/25 Discharge Attending Physician: Sachin Garza MD PCP name and Address: Renetta Pardo, [address] Kang [address] / [facility] [address] Referring provider name and address: Maldonado Luciano PA [address] [place] [address] [place] [address] Chief Concern, Brief History of Present Illness, and Hospital Course Patient arrived to [facility] on 01/15/25 with concern for surgical site [...] for pain. DAPTOmycin injection Commonly known as: Camden Infuse 22 mL into a venous catheter [...] medications were sent to [facility] - [place], [place] - [address], [facility] [address] DAPTOmycin injection These medications were sent to [facility] [place], [place] - [address] [facility] [address] oxyCODONE 5 MG immediate release capsule Discharge Diagnosis Medical Problems Active and Resolved Hospital Problems Hospital Closed fracture of left tibial plateau Overview Addendum 09/16/2023 1:42 PM by Rolanda Adams APRN, KALYANI ORT consulted TROM in place WB per ORT 09/15: ORIF L tibial plateau fx Follow up with Dr. Nava on 10/04 * (Principal) Cellulitis of leg, left Sepsis following procedure ([facility]) Cellulitis of left lower extremity Post [...] Time Provider Department Center 01/27/2025 11:00 AM [facility] ORTHOPAEDICS MAXILLOFACIAL SURGEON [facility] 02/03/2025 8:10 AM Lawrence Hayes MD [facility] 02/11/2025 1:00 PM Ary Santiago APRN [facility] [place] 03/03/2025 1:00 PM Ary Santiago APRN [facility] [place] Test Results Pending At Discharge Pending Labs [...] General: Spoke with: Patient, Family, and Bedside hair blender and Interventions: Assessed: Dressing Dressing Interventions: CDI and Prevena dressing in place. Negative Pressure Wound Therapy Leg Anterior;Left;Lower;Proximal (Active) Dressing Type Black foam 01/21/25 08 Dressing Status Clean;Dry;Intact 01/21/25 0800 Cycle On [...] please contact the Orthopedic Transition Nurse at [phone] Monday through Monday 8:00 am to 2:30 pm. If you feel your concern is a medical emergency please call 911 immediately * Progress Notes - Anna Elam RN - 01/22/2025 9:28 AM EDT Case Management Discharge Note Ravin Ribeiro 34 y.o. male CSN: [id number] Admission: 01/15/2025 9:32 PM Primary Problem: Cellulitis of leg, left Primary Personal Clothing Laundry Aide: Primary Caregiver: Self Assistance Available at Discharge: Current Outpatient/Agency/Support Group: DME Availability of Care Givers (#Hours): 24 hours Family/Personal Clothing Laundry Aide(s) Willingness Assessed to care for patient at home: Yes Family/Personal Clothing Laundry Aide(s) Readiness Assessed to care for patient at [...] Community Agency(s): Patient's Choice of Community Agency(s): [facility] Patient/Family Anticipated Services at Transition: Patient/Family Anticipated Services at Transition: outpatient care DME/Equipment Needed after Discharge: Equipment Currently Used at Home: walker, rolling, commode chair, wheelchair, manual Equipment Needed After Discharge: walker, rolling, commode chair Readmission Within the Last 30 Days: Readmission Within the Last 30 Days: other (see comments) (cellulitis) Medicare Documentation: Medicare Second Notice?: No (pt has [place] medicaid) Follow-up: No follow-up provider specified. Discharge Transportation: Transportation Anticipated: family or friend will provide Transportation Home at Discharge: Family/Friend will Provide Has discharge transport been arranged?: No Follow Up Transport: Transportation Needed to Follow up Appoinments: Family/Friend will Provide Additional Comments: Per primary provider, pt is medically ready to discharge home with standard OPAT. PICC in place. Pt will follow up at [facility] for weekly PICC care and labs. First appointment is scheduled for 01/27 at 11 AM. Pt's family will be able to provide assistance and transportation. [facility] will complete teaching today and deliver IV ABX to bedside around 3 PM. Pt and S/O is aware and agreeable to discharge POC. [facility] [phone] Anna Elam RN * Progress Notes - [...] [facility] Orth[facility] Service Pager: [phone] Orthopaedic Recon/Spine/Foot and Ankle Service Pager: [phone] Cosigned by Lawrence Hayes MD at 01/22/2025 [...] required Red Mondragon MD Orthopaedic Surgery PGY-1 [facility] Orthopaedic Trauma Service Pager: [phone] Orthopaedic Recon/Spine/Foot and Ankle Service Pager: [phone] Personal Pager: [phone] Cosigned by Lawrence Hayes MD at 01/22/2025 1:06 PM EDT * Procedures - Norma Miranda RN - 01/21/2025 7:01 PM EDTAssociated Order(s): Insert PICC line Insert PICC line Date/Time: 01/21/2025 7:01 PM Performed by: Norma Miranda RN Authorized by: Sachin Garza MD [place] Protocol: Verbal consent obtained?: Yes Written consent [...] preference Patient position: Supine Catheter Lot #: [id number] 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 PowerPICC Solo Catheter placed: Single lumen Catheter [...] 01/21/2025 3:28 PM EDT Referrals sent to [facility] and for for possible home IV antibiotic infusion. There was no accepting companies in patient's area. CM spoke with patient and he is agreeable to either go to his local hospital [facility] or come to [facility] [place] for his weekly PICC care/labs if needed. * Nursing Note - Camden Vital RN - 01/21/2025 1:45 PM EDT Orthopedic Transition Nurse Note General: Spoke with: Patient, Family, and Bedside hair blender and Interventions: Assessed: Dressing Dressing Interventions: CDI and Prevena dressing in place. Negative Pressure Wound Therapy Leg Anterior;Left;Lower;Proximal (Active) Dressing Type Black foam 01/21/25 08 Dressing Status Clean;Dry;Intact 01/21/25 0800 Cycle On [...] please contact the Orthopedic Transition Nurse at [phone] Monday through Monday 8:00 am to 2:30 pm. If you feel your concern is a medical emergency please call 911 immediately * Rosaura Eason - Steff Paz RN - 01/21/2025 11:57 AM EDT Images from the original note were not included. [id number] PICC Line Care PICC stands for peripherally [...] arm Last Reviewed Date: 2024 00:00:00 ?? 3695-2449 [employer]. All rights reserved. This information is not intended as a substitute for professional medical care. Always follow your healthcare professional's instructions. * Steff Odell RN - 01/21/2025 11:56 AM EDT Images from the original note were not included. [id number] * Steff Odell RN - 01/21/2025 11:56 AM EDT Images from the original note were not included. [id number] * Steff Odell RN - 01/21/2025 11:56 [...] your house or a medical facility. The rehabilitation caseworker/hospital social worker will setthat up based on your insurance. [...] or during weekends/[place] holidays, call the paging gradall operator at . Ask for the infectious disease fellow bus info consultant. Call the clinic if you have any of these: ? Fevers greater than 100.5??F ? An allergic reaction, such as rash ? Nausea, vomiting, or diarrhea ? New or returning redness near the IV line ? Redness, pain, swelling, or pus around the IV line * Rosaura OnIR - Steff Paz RN - 01/21/2025 11:56 AM EDT Images from the original note were not included. 70758 Flushing Your PICC Line at Home Your [...] soap and water, use an alcohol-based hand bottle packing machine cleaner. The gel should have at least 60% [...] PICC. Last Reviewed Date: 2024 00:00:00 ?? 9729-3230 [employer]. All rights reserved. This information is not intended as a substitute for professional medical care. Always follow your healthcare professional's instructions. * [facility] - Steff Paz RN - 01/21/2025 11:56 AM EDT Images from the original note were not included. [id number] Daptomycin Injection Brand Name(s): Cubicin??, Cubicin RF??; [...] be awakened, immediately call emergency services at 414. What OTHER INFORMATION should I know? Keep [...] of all of the prescription and nonprescription (mjea-xnm-iwbnaxw) medicines you are taking, as well as [...] or pharmacist about specific clinical use. The [place] [employer] represents that the information provided hereunder was formulated with a reasonable standard of care, and in conformity with professional standards in the field. The [place] [employer] makes no representations or warranties, express or implied, including, but not limited to, any implied warranty of merchantability and/or fitness for a particular purpose, with respect to such information and specifically disclaims all such warranties. Users are advised that decisions regarding drug therapy are complex medical decisions requiring the independent, informed decision of an appropriate health director of career resources, and the information is provided for informational purposes only. The entire monograph for a drug should be reviewed for a thorough understanding of the drug's actions, uses and side effects. The [place] [employer] does not endorse or recommend the use of any drug.The information is not a substitute for medical care. AHFS?? Patient Medication Information?. ?? Copyright, 2023. The [place] [employer]??, [address], [address], [place], [place]. All Rights Reserved. Duplication for commercial use must be authorized by [facility]. Selected Revisions: July 28, 2019. AHFS?? Patient Medication Information?. ?? Copyright, 2024 * [facility] - Steff Paz RN - 01/21/2025 11:56 AM EDT Images from the original note were not included. 43164 Discharge Instructions: Caring for Your Peripherally Inserted [...] damage. Last Reviewed Date: 2024 00:00:00 ?? 8196-4210 [employer]. All rights reserved. This information is not intended as a substitute for professional medical care. Always follow your healthcare professional's instructions. * [facility] - Steff Paz RN - 01/21/2025 11:56 AM EDT Images from the original note were not included. 62023 Central Line Infections You need a central [...] water. Or they use an alcohol-based hand bottle packing machine cleaner containing at least 60% alcohol. ? Using [...] (warm or cold), and use alcohol-based hand bottle packing machine cleaner with at least 60% alcohol as directed. To clean your hands well,follow the guidelines on this sheet. Visitors should wash their hands well when they arrive and when they leave. ? Make sure healthcare staff and your visitors clean their hands. They should use soap and clean, running water or an alcohol-based hand bottle packing machine cleaner before and after checking the line. Don?t [...] good choice for cleaning your hands. The bottle packing machine cleaner should have at least 60% alcohol. Note that some germs can't be killed by alcohol. Your healthcare team can answer any questions you have about when to use a hand bottle packing machine cleaner, or when it?s better to wash with soap and water. Follow these steps: ? Spread the hand bottle packing machine cleaner in the palm of one hand. (Check the package for specific guidelines.) ? Rub your hands together briskly. Clean the backs of your hands, the palms, between your fingers, and up your wrists. ? Rub until the bottle packing machine cleaner is gone and your hands are completely [...] skin Last Reviewed Date: 2023 00:00:00 ?? 3852-2534 The [employer]. All rights reserved. This information is not [...] Single Lumen PICC Patient Specific Outpatient Circumstances: [address] [place] [id number] Family Support: Extended Emergency Contact Information Primary Emergency Contact: Hayley Buenrostro Address: [address] [place] [address] [place] Relation: Significant Other Preferred language: Estonian Truck Service Manager needed? No Secondary Emergency Contact: Jenny Buenrostro Address: [address] [place] [address] [place] [address] [place] Relation: Mother Contact information: Ravin Ribeiro [phone] (home) Outpatient services (including home infusion, home health, facility referral: See recent [place] case management/social work note for finalization of services ID follow up appointment: Future Appointments Date Time Provider Department Center 02/03/2025 8:10 AM Lawrence Hayes MD [facility] 02/11/2025 1:00 PM Ary Santiago APRN [...] via secure chat or staff messaging in [employer]. Patient and family will need to be [...] days prior to presentation. He presented to [facility] wherehe was febrile to 101.3F. Upon [...] PA-C Division of Infectious Diseases Available on [employer] Chat History, assessment, and plan discussed with [...] labs to: ID OPAT Team Fax #: [phone] Appointments: Ary Santiago APRN on 02/11 at 1PM and 03/03 at 1PM [facility]: [address] [place] [address] (Select Option 3 for IV Antibiotic / PICC line related issues) For questions regarding OPAT prior to discharge, reach out to the OPAT team via [employer] Secure Chat (Group: OPAT Referral Team). For all questions regarding OPAT after discharge should be directed to the OPAT Team at (Select Option 3 for IV Antibiotics/PICC Issues) between 8am-5pm. After 5 pm, or during weekends/[place] holidays, please call the paging gradall operator at to reach the on-call ID [...] 3 g 3 g Intravenous q8h Emely Giorn MD 3 g at 01/21/25 0432 [START [...] Gustavo Hightower MD 60 mg at 01/21/25 09 ibuprofen tablet 400 mg 400 mg Oral q4h PRN Tyrone Howard MD 400 mg at 01/21/25 0432 magnesium hydroxide (Milk of Magnesia) 400 MG/5ML suspension 30 mL 30 mL Oral Daily PRN Tyrone Howard MD mupirocin (Bactroban) 2 % ointment 1 Application 1 Application Each Nostril BID Gustavo Hightower MD 1 Application at 01/21/25 09 naloxone (Narcan) injection 0.08 mg 0.08 mg Intravenous PRN Tyrone Howard MD nicotine (Nicoderm CQ) 21 MG/24HR patch 1 patch 1 patch Transdermal Daily Gustavo Hightower MD 1 patch at 01/21/25 0901 ondansetron ODT (Zofran-ODT) [...] at 01/18/25 1133 [2] Allergies Allergen Reactions Erwinna Hives * Consults - Delma Ortiz - 01/21/2025 10:00 AM EDT Pastoral Care Note: Patient was appreciative of structural shop helper's visit and expressed gratitude to the care team. he said family is on their way to him. Referral From: Marketing Operations Manager Initiated Pastoral Care Provided For: Patient Patient Profile: Spiritual Assessment: Support Systems/ Spiritual Resources: Treasure, Sense of Peace, Trust, Gratitude Spiritual Needs: Emotional support, Spiritual ritual Spiritual Issues: Discharge Interventions: Pastoral Care Outcomes: Patient Outcomes: Appreciative of Marketing Operations Manager Support, Expresses acceptance, Gratitude Cosigned by Macrina Dumont at 01/21/2025 6:24 PM EDT Associated attestation - Macrina Dumont - 01/21/2025 6:24 PM EDT This is to attest structural shop helper international logistics analyst chart note has been reviewed and okayed. [...] to ambulate in room/hallway with family and staff forester while remains inpatient. Patient demonstrates no further [...] Prevent or Manage Infection Flowsheets (Taken 01/20/2025 7905) Infection Management: aseptic technique maintained Fever Reduction/Comfort [...] Agree with above assessment and evaluation from resident/SET UP / OPERATOR. * Progress Notes - Anna Elam RN - 01/20/2025 10:48 AM EDT Case Management Adult Progress Note Ravin Ribeiro 34 y.o. male CSN: [id number] Admission: 01/15/2025 9:32 PM Primary Problem: Cellulitis of leg, left Anticipated Discharge Date: TBD Pt to OR today for repeat I&D on left knee. Pt has worsening NORMAN and team wants to repeat AM labs. Final ID recs and OPAT eval are pending. [facility] and HH today. Pt's medicaid may be a potential barrier to HH. CM will continue to assist with discharge POC. Anna Elam RN * Op Note - Bob Nava MD - 01/20/2025 10:26 AM EDT Operative Note Date: 01/20/25 Location: [place] Name: Ravin Ribeiro, : 1990, Diagnoses: Pre-op Diagnosis Closed fracture of left tibial plateau with routine healing, subsequent encounter Left proximal tibia (knee region) deep abscess Post-op Diagnosis Closed fracture of left tibial plateau with routine healing, subsequent encounter Left proximal tibia (knee region) deep abscess Procedure(s): Incision and drainage of left knee deep abscess Attending Surgeon(s): * Bob Nava - Primary Home Specialist(s): * Emely Giron MD - Resident - [...] - 01/20/2025 * Pharmacy note - Jeannette Daly PharmD - 01/20/2025 9:59 AM EDT Pharmacokinetic [...] days prior to presentation. He presented to [facility] wherehe was febrile to 101.3F. Upon [...] PA-C Division of Infectious Diseases Available on [employer] Chat History, assessment, and plan discussed with ID attending, Dr. Madhuri Collado The following complex inpatient infectious disease services were performed today: Complex antimicrobial therapy counseling and treatment [1] Current Facility-Administered Medications Medication Dose Route Frequency Provider Last Rate Last Admin [Transfer Hold] acetaminophen (Tylenol) tablet 1,000 mg 1,000 mg Oral q6h ALIYA Tyrone Howard MD1,000 mg at 01/20/25 0614 [Transfer Hold] bisacodyl (Dulcolax) suppository 10 mg [...] Gustavo Hightower MD [2] Allergies Allergen Reactions Erwinna Hives * Consults - Ricco Howard RN [...] [facility] Pager: [phone] Orthopaedic Recon/Spine/Foot and Ankle Service Pager: [phone] Cosigned by Sachin Garza MD at 01/20/2025 4:55 PM EDT * Progress Notes - Jaqueline Thompson PharmD - 01/19/2025 1:15 PM EDT Pharmacokinetic [...] PM * Progress Notes - Oma Zamora - 01/19/2025 9:03 AM EDT Occupational Therapy Evaluation Patient Name: Ravin Ribeiro Today's Date: 01/19/2025 OT Discharge Recommendations: Home with assistance Equipment Recommended: Patient owns appropriate equipment History Ravin Ribeiro is 34 y.o. male admitted 01/15/2025 for work-up of Cellulitis of leg, left. Hospital Course 1. Sepsis following procedure, initial encounter ([facility]) 2. Cellulitis of left lower extremity [...] admission Level of Mobility: Ambulatory- community Mobility [place]: Independent gait without device (intermittne use of [...] Mobility Bed Mobility Exam: Scooting/Bridging Level of [place]: Independent Bed Mobility Exam: Supine to Sit Level of [place]: Independent Transfers Transfer Exam: Sit to stand Level of [place]: Stand-by assist Physical/Nonphysical Assist: Verbal Cues Assistive Device: Walker, rolling Transfer Exam: Stand to Sit Level of [place]: Stand-by assist Physical/Nonphysical Assist: Verbal Cues Assistive Device: Walker, rolling Toilet Transfer Level of 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 male admitted 01/15/2025 for [...] admission Level of Mobility: Ambulatory- community Mobility [place]: Independent gait without device (intermittne use of [...] Mobility Bed Mobility Exam: Scooting/Bridging Level of [place]: Independent Bed Mobility Exam: Supine to Sit Level of [place]: Independent Transfers Transfer Exam: Sit to stand Level of [place]: Stand-by assist Physical/Nonphysical Assist: Verbal Cues Assistive Device: Walker, rolling Transfer Exam: Stand to Sit Level of [place]: Stand-by assist Physical/Nonphysical Assist: Verbal Cues Assistive [...] Assessments Standardized Assessments: AMPA 6-Clicks Mobility Assessment [facility] 6-Clicks Mobility Assessment Difficulty patient has [...] 3-5 steps with a railing?: A little [facility] 6-Clicks Mobility Assessment Total : 23 No [...] required Red Mondragon MD Orthopaedic Surgery PGY-1 [facility] Orthopaedic Trauma Service Pager: [phone] Orthopaedic Recon/Spine/Foot and Ankle Service Pager: [phone] Personal Pager: [phone] Cosigned by Ye Navarro MD at 01/21/2025 7:48 AM EDT * Care Plan - Umu Bangura, RN - 01/18/2025 1:33 PM EDT Problem: [...] AM EDT Operative Note Date: 01/18/25 Location: [facility] OR Name: Ravin Ribeiro, : 1990, Diagnoses: Pre-op Diagnosis Cellulitis of left lower extremity Post-op Diagnosis Cellulitis of left lower extremity Procedure(s): Irrigation and debridement of left medial tibial plateau deep abscess Attending Surgeon(s): * Ye Navarro - Primary Home Specialist(s): * Harvey Swift MD - Resident - [...] well as other factors in accordance with University policy. The left lower extremity was then [...] 3:05 PM * Nursing Note - Camden Vital RN - 01/17/2025 1:15 PM EDT Orthopedic Transition Nurse Note General: Spoke with: Patient and Bedside hair blender and Interventions: Assessed: Wound 01/01/25 Surgical Open Surgical Incision Pretibial Left;Proximal (Active) Wound Assessment Red 01/15/25 2150 Margins Well-defined edges;Attached edges 01/15/252149 Janeth-Wound Assessment Red 01/15/25 2150 Closure [place] 01/15/252149 Wound 01/01/25 Face Left;Upper (Active) Education: Education provided on: Pain protocol/management Plan of Care: Follow up with TBD. Op-Plan: Awaiting to see how patient responds to IV abx. Contact Card Given: no Comments: Team is waiting to see if patient improves on IV abx. Awaiting ID recs. 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 He was febrile to101.3F [...] on day of presentation. He lives in [place] with his , CONSTANZA, and 2 young [...] days prior to presentation. He presented to [facility] wherehe was febrile to 101.3F. Upon [...] PA-C Division of Infectious Diseases Available on [employer] History, assessment, and plan discussed with ID attending, Dr. Azucena Collado The following complex inpatient infectious disease services were performed today: Complex antimicrobial therapy counseling and treatment [1] History reviewed. No pertinent past medical history. [2] Past Surgical History: Procedure Laterality Date LEG SURGERY Left [3] Allergies Allergen Reactions Erwinna Hives [4] Current Facility-Administered Medications Medication Dose Route Frequency Provider Last Rate Last Admin acetaminophen (Tylenol) tablet 1,000 mg 1,000 mg Oral q6h [facility] Tyrone Howard MD 1,000 mg at 01/17/25 [...] 50 mg 50 mg Oral q6h PRN Tyrnoe Howard MD 50 mg at 01/16/25 1226 [...] Note Ravin Ribeiro 34 y.o. male CSN: [id number] Admission: 01/15/2025 9:32 PM Primary Problem: Cellulitis of leg, left Counter Waiter reviewed chart and spoke with patient to complete this Initial Case Management Assessment. 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 No Secondary Emergency Contact: Jenny Buenrostro Address: [address] [place] [address] Mobile Relation: Mother Insurance: Primary Visit Coverage Payer Plan Sponsor Code Group Number Group Name [employer] [place] [employer] [place] Primary Visit Coverage Subscriber Subscriber ID Subscriber Name Subscriber N Subscriber Address [id number] RAVIN RIBEIRO [id number] [place] [address] Patient information: Primary Caregiver: Self Support System: Immediate family Daily Living Activities: Functional Status: Independent Living Arrangements: Spouse/Significant other, Family Type of Residence: Private residence, Single Level [address] [place] [address] Current DME: Equipment Currently Used at Home: [...] Outpatient Dialysis Services: Living Will/Advance Directive/Power of Fashion Supervisor /Guardian: Have you reviewed your Advance Directive [...] Pt states he lives at home in [place] with his , CONSTANZA, and two small [...] Lao RD, LD * Progress Notes - Suhail Dueñas MD [...] plans IV antibiotics ID consult today Suhail Dueñas MD Cosigned by Lawrence Hayes MD at 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 hair blender and Interventions: Assessed: Wound 01/01/25 Surgical Open Surgical Incision Pretibial Left;Proximal (Active) Wound Assessment Red 01/15/25 2150 Margins Well-defined edges;Attached edges 01/15/25 2150 Janeth-Wound Assessment Red 01/15/25 2150 Closure [place] 01/15/25 2150 Wound 01/01/25 Face Left;Upper (Active) [...] please contact the Orthopedic Transition Nurse at [phone] Monday through Monday 8:00 am to 2:30 pm. If you feel your concern is a medical emergency please call 911 immediately. * Progress Notes - Emely Giron MD - 01/16/2025 12:40 PM EDT ORTHOPAEDIC SURGERY PROGRESS NOTE 01/16/25 SUBJECTIVE No acute events overnight. No n/v/f/c. [...] tibial pulse, cap refill <2 sec, digits [facility][1] Orthopedic Surgery Tertiary Exam Completed 01/16/25 No [...] exams. Mitch Giron MD PGY-3, Orthopaedic Surgery [facility] Orthopaedic Trauma Service Pager: [phone] Orthopaedic Recon/Spine/Foot and Ankle Service Pager: [phone] Cosigned by Sachin Garza MD at 01/18/2025 12:16 AM EDT Associated attestation - Sachin Garza MD - 01/18/2025 12:16 AM EDT I discussed the case with the resident/fellow and agree with the findings and plan as documented. Sachin Garza MD Orthopaedic Trauma * Discharge Instr - Other Orders - Camden Vital, SHEREEN - 01/16/2025 10:28 AM EDT Do not [...] your wound. Based upon recent changes to [place] law related to prescribing opioid pain medications, [...] please contact the Orthopedic Transition Nurse at [phone] Monday through Monday 8:00 am to 2:30 pm. If you feel your concern is a medical emergency please call 911 immediately. * Pharmacy note - Jeannette Daly, PharmD - 01/16/2025 10:09 AM EDT Pharmacokinetic Consult [...] examinations WRadha Howard MD PGY-2, Orthopaedic Surgery [facility] Cosigned by Sachin Garza MD at 01/16/2025 [...] spectrum IV abx - admit ORT fracture W. Shawn Howard MD PGY-2, Orthopaedic Surgery [facility] Orthopaedic Trauma Service Pager: [phone] Orthopaedic Recon/Spine/Foot and Ankle Service Pager: [phone] [1] History reviewed. No pertinent past medical [...] 25 tablet 0 [4] Allergies Allergen Reactions Erwinna Hives Cosigned by Sachin Garza MD at [...] with findings as noted per their reports. [facility] was consulted early on in this [...] Anterior, Posterior, Medial Once Acknowledged EMELY GIRON 01/16/25 0043 CBC W/O Differential STAT Final result TYRONE HOWARD 01/16/25 0043 Prothrombin Time/INR STAT Final result TYRONE HOWARD 01/16/25 0043 Basic Metabolic Panel, Plasma STAT Final result TYRONE HOWARD 01/15/252224 STAT Canceled TYRONE HOWARD 01/15/252224 STAT Canceled TYRONE HOWARD 01/15/252224 STAT Canceled TYRONE HOWRAD 01/15/25 222 NPO diet NPO except: Sips with meds Diet effective midnight Comments: To OR with Ortho Acknowledged TYRONE HOWARD 01/15/25 2225 ECG Adult Once Comments: Preop Clearance Preliminary result TYRONE HOWARD 01/15/252224 XR Chest 1 View One time imaging Comments: Preop Clearance Final result TYRONE HOWARD 01/15/252224 Type and Screen Once Final result TYRONE HOWARD 01/15/252224 Once Canceled GUS VIGIL P 01/15/252224 Consult to Orthopaedics Surgery Once Specialty: Orthopaedic Surgery Provider: (Not yet assigned) Completed GUS VIGIL P 01/15/252224 CT Tibia Fibula Left w IV Contrast Once Final result GUS VIGIL P 01/15/25 215 XR Tibia Fibula Left 2+ Views Once Final result GUS VIGIL P 01/15/25 215 XR Knee Left 3 Views Once Final result GUS VIGIL P 01/15/252133 Blood gas panel, venous STAT Final result GUS VIGIL P 01/15/252133 C-Reactive protein STAT Final result GUS VIGIL P 01/15/25 213 Sed rate, automated STAT Final result GUS VIGIL P 01/15/252133 Blood Culture (Aerobic/Anaerobet Set) STAT Preliminary result GUS VIGIL P 01/15/252133 Blood Culture (Aerobic/Anaerobet Set) STAT Preliminary result GUS VIGIL P 01/15/252133 Saline lock IV Once Acknowledged GUS VIGIL P 01/15/252133 CBC w/diff STAT Final result GUS VIGIL P 01/15/252133 PT-INR STAT Final result GUS VIGIL P 06/12/06 2133 CMP STAT Final result GUS VIGIL Assessment: Clinical Impressions as of 01/16/25 0657 Sepsis following procedure, initial encounter ([facility]) Cellulitis of left lower extremity Acute [...] diagnosis was Sepsis following procedure, initial encounter ([facility]). Diagnoses of Cellulitis of left lower [...] Drug use: Never [5] Allergies Allergen Reactions Erwinna Hives Gus Vigil APRN 01/16/25 0657 Cosigned by Philippe Mann MD at 01/18/2025 [...] pain 5/10. * Progress Notes - Hayden Weiss, ZAN - 01/15/2025 9:21 PM EDT Images from the original note were not included. ED TRANSFER OF CARE NOTE Transferring provider: René Birch Transferring attending: Dr. Giovani MEEHAN Time: 06:45 I received sign-out and accepted [...] on 01/01/[address] Hayes who presented tothe ED for evaluation of surrounding the surgical [...] surgery team Service. ED Medication Administration from 01/15/2025 1921 to 01/16/2025 0733 Date/Time Order Dose Route [...] 01/16/25 0733 Sepsis following procedure, initial encounter ([facility]) Cellulitis of left lower extremity Acute postoperative pain Ultimately, this patient Was admitted (Admission) The primary encounter diagnosis was Sepsis following procedure, initial encounter ([facility]). Diagnoses of Cellulitis of left lower [...] Hospital Encounter [facility] [address] [place] [address] Lawrence Hayes MD [id number] [place] [address] 02/21/2025 12:20 PM EDT - 02/21/2025 2:15 PM EDT Surgery [facility] [address] [place] [address] Lawrence Hayes MD [address] [facility] [address] [place] [address] INCISION AND DRAINAGE, LOWER EXTREMITY [79231 (CPT )] 03/03/2025 1:00 PM EDT Office Visit [facility] [place] [address] [place] [id number] Ary Santiago, SPA MANAGER [address] [facility] [address] [place] [address] 2025 7:50 AM EDT Office Visit [facility] Orthopaedic Surgery & Sports Medicine [address] [place] [address] Stella Brown, SPA MANAGER [address] [facility] [address] [place] [address] Pending Results Name Type Priority Associated Diagnoses Date /Time AFB Culture, Non Respiratory Source and Acid Fast Stain Microbiology Routine Cellulitis of left lower extremity 01/18/2025 9:57 AM EDT AFB Culture, Non Respiratory Source and Acid Fast Stain Microbiology Routine Cellulitis of left lower extremity 01/18/2025 10:00 AM EDT AFB Culture, Non Respiratory Source and Acid Fast Stain Microbiology Routine 01/18/2025 3:28 PM EDT AFB Culture, Non Respiratory Source and Acid Fast Stain Microbiology Routine Closed fracture of left tibial plateau with routine healing, subsequent encounter 01/20/2025 10:27 AM EDT AFB Culture, Non Respiratory Source and Acid Fast Stain Microbiology Routine Closed fracture of left tibial plateau with routine healing, subsequent encounter 01/20/2025 10:30 AM EDT Scheduled Orders Name Type Priority Associated Diagnoses Orde r Schedule Bacteria, Broad range PCR (SO) Lab Routine Cellulitis of left lower extremity Release Upon Ordering for 1 Occurrences starting 01/18/2025 Scheduled Procedures Name Priority Associated Diagnoses Date/Ti [...] (ABNORMAL) C-reactive protein (01/22/2025 5:04 AM EDT) Pathologist [facility] CRP, Plasma 44.4(H) <=8.0 mg/L 01/22/2025 9:25 AM EDT [facility] Blood Venous blood specimen / Unknown Venipuncture / Unknown 01/22/2025 5:04 AM EDT 01/22/2025 5:31 AM EDT Narrative [facility] - 01/22/2025 9:25 AM EDT This CRP test is appropriate for assessment of infection, systemic inflammation and/or tissue injury. To assess cardiovascular disease risk order high sensitivity CRP (CRPH). us Michelle ZULUAGA LAB BLOOD ORDERABLES Final Res ult Performing Organization Address City/[facility]/ZIP Co de Phone Number [facility] [address] [place] [address] * Lavender Top (01/22/2025 5:04 AM EDT) Pathologist [facility] Extra Hold for add-ons 01/22/2025 8:02 AM EDT [facility] Comment:Auto resulted. Blood Venous blood specimen / Unknown 01/22/2025 5:04 AM EDT 01/22/2025 5:30 AM EDT us Sachin Garza MD LAB BLOOD ORDERABLES Final R esult Performing Organization Address City/[facility]/ZIP Co de Phone Number [facility] [address] [place] [address] * (ABNORMAL) Basic metabolic panel (01/22/2025 5:04 AM EDT) [facility] Glucose, Plasma 91 74 - 99 mg/dL 01/22/2025 6:01 AM EDT [facility] BUN, Plasma 33(H) 7 - 21 mg/dL 01/22/2025 6:01 AM EDT [facility] Creatinine, Plasma 1.47(H) 0.70 - 1.20 mg/dL 01/22/2025 6:01 AM EDT [facility] BUN/Creatinine Ratio 22 01/22/2025 6:01 AM EDT [facility] Sodium, Plasma 137 136 - 145 mmol/L 01/22/2025 6:01 AM EDT [facility] Potassium, Plasma 5.3(H) 3.6 - 4.9 mmol/L 01/22/2025 6:01 AM EDT [facility] Chloride, Plasma 100 97 - 107 mmol/L 01/22/2025 6:01 AM EDT [facility] CO2, Plasma 28 22 - 29 mmol/L 01/22/2025 6:01 AM EDT [facility] Anion Gap 9 6 - 16 mmol/L 01/22/2025 6:01 AM EDT [facility] Total Calcium, Plasma 9.6 8.9 - 10.2 mg/dL 01/22/2025 6:01 AM EDT [facility] eGFRcr 63.4 mL/min/1.7 3m*2 01/22/2025 6:01 AM EDT [facility] Comment:Reported eGFRcr in m L/min/1.73m2 is based the CKD-EPI 2020 equation that does not use a race coefficient. Blood Venous blood specimen / Unknown Venipuncture / Unknown 01/22/2025 5:04 AM EDT 01/22/2025 5:31 AM EDT us Sachin Garza MD LAB BLOOD ORDERABLES Final R esult [facility] [address] [place] [address] * (ABNORMAL) CBC (01/21/2025 7:29 PM EDT) WBC Count 10.10 3.70 - 10.30 10*3/uL LAB HEMATOLOGY METHOD 01/21/2025 7:42 PM EDT [facility] RBC Count 3.82(L) 4.60 - 6.10 10*6/uL LAB HEMATOLOGY METHOD 01/21/2025 7:42 PM EDT [facility] HGB 11.5(L) 13.7 - 17.5 g/dL LAB HEMATOLOGY METHOD 01/21/2025 7:42 PM EDT [facility] HCT 35.2(L) 40.0 - 51.0 % LAB HEMATOLOGY METHOD 01/21/2025 7:42 PM EDT [facility] Platelet Count 446(H) 155 - 369 10*3/uL LAB HEMATOLOGY METHOD 01/21/2025 7:42 PM EDT [facility] MCV 92 79 - 98 fL LAB HEMATOLOGY METHOD 01/21/2025 7:42 PM EDT [facility] MCH 30.1 26.0 - 32.0 pg LAB HEMATOLOGY METHOD 01/21/2025 7:42 PM EDT [facility] MCHC 32.7 30.7 - 35.5 g/dL LAB HEMATOLOGY METHOD 01/21/2025 7:42 PM EDT [facility] RDW 13.1 11.5 - 14.5 % LAB HEMATOLOGY METHOD 01/21/2025 7:42 PM EDT [facility] MPV 9.1 8.8 - 12.5 fL LAB HEMATOLOGY METHOD 01/21/2025 7:42 PM EDT [facility] nRBC 0.0 <=0.0 per 100 WBCs LAB HEMATOLOGY METHOD 01/21/2025 7:42 PM EDT [facility] Blood Venous blood specimen / Unknown Venipuncture / Unknown 01/21/2025 7:29 PM EDT 01/21/2025 7:35 PM EDT us Sachin Garza MD LAB BLOOD ORDERABLES Final R esult [facility] [address] [place] [address] * (ABNORMAL) Basic metabolic panel (01/21/2025 7:29 PM EDT) Glucose, Plasma 122(H) 74 - 99 mg/dL 01/21/2025 8:03 PM EDT [facility] BUN, Plasma 31(H) 7 - 21 mg/dL 01/21/2025 8:03 PM EDT [facility] Creatinine, Plasma 1.64(H) 0.70 - 1.20 mg/dL 01/21/2025 8:03 PM EDT [facility] BUN/Creatinine Ratio 19 01/21/2025 8:03 PM EDT [facility] Sodium, Plasma 139 136 - 145 mmol/L 01/21/2025 8:03 PM EDT [facility] Potassium, Plasma 4.6 3.6 - 4.9 mmol/L 01/21/2025 8:03 PM EDT [facility] Chloride, Plasma 101 97 - 107 mmol/L 01/21/2025 8:03 PM EDT [facility] CO2, Plasma 26 22 - 29 mmol/L 01/21/2025 8:03 PM EDT [facility] Anion Gap 12 6 - 16 mmol/L 01/21/2025 8:03 PM EDT [facility] Total Calcium, Plasma 9.1 8.9 - 10.2 mg/dL 01/21/2025 8:03 PM EDT [facility] eGFRcr 55.6 mL/min/1.7 3m*2 01/21/2025 8:03 PM EDT [facility] Comment:Reported eGFRcr in m L/min/1.73m2 is based the CKD-EPI 2020 equation that does not use a race coefficient. Blood Venous blood specimen / Unknown Venipuncture / Unknown 01/21/2025 7:29 PM EDT 01/21/2025 7:35 PM EDT us Sachin Garza MD LAB BLOOD ORDERABLES Final R esult [facility] [address] [place] [address] * PICC SINGLE LUMEN (SMARTFORM LINK) (01/21/2025 7:01 PM EDT) Narrative Norma Miranda RN - 01/21/2025 7:01 PM EDT Norma Miranda RN 01/21/2025 7:19 PM Insert PICC line Date/Time: 01/21/2025 7:01 PM Performed by: Norma Miranda RN Authorized by: Sachin Garza MD [facility] Protocol: Verbal consent obtained?: Yes Written consent [...] preference Patient position: Supine Catheter Lot #: [id number] 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 PowerPICC Solo Catheter placed: Single lumen Catheter size: 4 Fr Catheter trimmed length: 52 Catheter threaded length: 52 Vein placed in: SVC Catheter cm indwellin Catheter cm outside: 52 Placement confirmed by: Ini3 Digital 3CG technology Pre-procedure: Landmarks identified Ultrasound guidance: [...] ultrasound and/or 3CG images sent to PACS. Sachin Garza MD IV THERAPY ORDERABLES Final Result * Abscess Culture and Gram Stain (01/20/2025 10:42 AM EDT) Culture No growth at day 4 2024 7:15 AM EDT [facility] Gram Stain Result No polymorphonuclear leukocytes seen 01/25/2025 7:15 AM EDT [facility] Gram Stain Result No organisms seen 01/25/2025 7:15 AM EDT [facility] Swab Structure of left knee region / Unknown 01/20/2025 10:42 AM EDT 01/20/2025 11:25 AM EDT Comment:Pre-op diagnosis: Closed fracture of left tibial plateau with routine healing, subsequent encounter [S82.142D] us Bob Nava MD LAB MICROBIOLOGY - GENERAL O RDERABLES Final Result Performing Organization Address City/[facility]/ZIP Co de Phone Number [facility] [address] [place] [address] * Fungal Culture, Routine (01/20/2025 10:42 AM EDT) Culture No Fungal Growth at 1 Week 01/28/2025 7:34 AM EDT [facility] Swab Structure of left knee region / Unknown 01/20/2025 10:42 AM EDT 01/20/2025 11:25 AM EDT Comment:Pre-op diagnosis: Closed fracture of left tibial plateau with routine healing, subsequent encounter [S82.142D] us Bob Nava MD LAB MICROBIOLOGY - GENERAL O RDERABLES Final Result Performing Organization Address City/[facility] Co de Phone Number [facility] [address] [place] [address] * Anaerobic Culture (01/20/2025 10:42 AM EDT) Culture No growth at day 4 01/28/2025 7:09 AM EDT [facility] Swab Structure of left knee region / Unknown 01/20/2025 10:42 AM EDT 01/20/2025 11:25 AM EDT Comment:Pre-op diagnosis: Closed fracture of left tibial plateau with routine healing, subsequent encounter [S82.142D] us Bob Nava MD LAB MICROBIOLOGY - GENERAL O RDERABLES Final Result Performing Organization Address City/[facility]/ZIP Co de Phone Number [facility] [address] [place] [address] * Fungal Culture, Tissue and SYEDA (01/20/2025 10:30 AM EDT) Culture Reading Mycological 4 Weeks No Fungal Growth at 4 Weeks 02/18/2025 6:03 AM EDT [facility] SYEDA No fungal elements seen 02/18/2025 6:03 AM EDT [facility] Tissue Structure of left knee region / Unknown 01/20/2025 10:30 AM EDT 01/20/2025 11:23 AM EDT Comment:Pre-op diagnosis: Closed fracture of left tibial plateau with routine healing, subsequent encounter [S82.142D] Bob Nava MD LAB MICROBIOLOGY - GENERAL O RDERABLES Final Result Performing Organization Address City/[facility]/ZIP Co de Phone Number [facility] [address] [place] [address] * Tissue Culture and Gram Stain (01/20/2025 10:30 AM EDT) Culture No growth at day 4 2024 7:15 AM EDT [facility] Gram Stain Result No polymorphonuclear leukocytes seen 01/25/2025 7:15 AM EDT [facility] Gram Stain Result No organisms seen 01/25/2025 7:15 AM EDT [facility] Tissue Structure of left knee region / Unknown 01/20/2025 10:30 AM EDT 01/20/2025 11:23 AM EDT Comment:Pre-op diagnosis: Closed fracture of left tibial plateau with routine healing, subsequent encounter [S82.142D] us Bob Nava MD LAB MICROBIOLOGY - GENERAL O RDERABLES Final Result Performing Organization Address City/[facility]/ZIP Co de Phone Number [facility] [address] [place] [address] * Anaerobic Culture (01/20/2025 10:30 AM EDT) Culture No growth at day 4 01/28/2025 7:09 AM EDT [facility] Tissue Structure of left knee region / Unknown 01/20/2025 10:30 AM EDT 01/20/2025 11:23 AM EDT Comment:Pre-op diagnosis: Closed fracture of left tibial plateau with routine healing, subsequent encounter [S82.142D] us Bob Nava MD LAB MICROBIOLOGY - GENERAL O RDERABLES Final Result Performing Organization Address City/[facility]/ZIP Co de Phone Number [facility] [address] [place] [address] * Fungal Culture, Tissue and SYEDA (01/20/2025 10:27 AM EDT) Culture Reading Mycological 4 Weeks No Fungal Growth at 4 Weeks 02/18/2025 6:03 AM EDT [facility] SYEDA No fungal elements seen 02/18/2025 6:03 AM EDT [facility] Tissue Structure of left knee region / Unknown 01/20/2025 10:27 AM EDT 01/20/2025 11:24 AM EDT Comment:Pre-op diagnosis: Closed fracture of left tibial plateau with routine healing, subsequent encounter [S82.142D] us Bob Nava MD LAB MICROBIOLOGY - GENERAL O RDERABLES Final Result Performing Organization Address [facility] Co de Phone Number [facility] [address] [place] [address] * Tissue Culture and Gram Stain (01/20/2025 10:27 AM EDT) Culture No growth at day 4 2024 7:15 AM EDT [facility] Gram Stain Result No organisms seen 01/25/2025 7:15 AM EDT [facility] Gram Stain Result No polymorphonuclear leukocytes seen 01/25/2025 7:15 AM EDT [facility] Tissue Structure of left knee region / Unknown 01/20/2025 10:27 AM EDT 01/20/2025 11:24 AM EDT Comment:Pre-op diagnosis: Closed fracture of left tibial plateau with routine healing, subsequent encounter [S82.142D] us Bob Nava MD LAB MICROBIOLOGY - GENERAL O RDERABLES Final Result Performing Organization Address City/[facility]/ZIP Co de Phone Number [facility] [address] [place] [address] * Anaerobic Culture (01/20/2025 10:27 AM EDT) Culture No growth at day 4 01/28/2025 7:09 AM EDT [facility] Tissue Structure of left knee region / Unknown 01/20/2025 10:27 AM EDT 01/20/2025 11:24 AM EDT Comment:Pre-op diagnosis: Closed fracture of left tibial plateau with routine healing, subsequent encounter [S82.142D] us Bob Nava MD LAB MICROBIOLOGY - GENERAL O RDERABLES Final Result Performing Organization Address City/[facility]/[place] [address] * (ABNORMAL) Creatine Kinase (CK), Total (01/20/2025 3:40 AM EDT) Creatine Kinase, Plasma 18(L) 49 - 320 U/L 01/21/2025 12:17 PM EDT [facility] Blood Venous blood specimen / Unknown Venipuncture / Unknown 01/20/2025 3:40 AM EDT 01/20/2025 3:57 AM EDT Sachin Garza MD LAB BLOOD ORDERABLES Final R esult Performing Organization Address City/[facility]/[place] [address] * Vancomycin, random (01/20/2025 3:40 AM EDT) Vancomycin, Random, Plasma 20.1 ug/mL 01/20/2025 4:51 AM EDT [facility] Blood Venous blood specimen / Unknown Venipuncture / Unknown 01/20/2025 3:40 AM EDT 01/20/2025 3:57 AM EDT Sachin Garza MD LAB BLOOD ORDERABLES Final R esult Performing Organization Address City/[facility]/ZIP Co de Phone Number [facility] [address] [place] [address] * Protime-INR (01/20/2025 3:40 AM EDT) Prothrombin Time 13.5 12.0 - 14.3 sec LAB COAGULATION METHOD 01/20/2025 4:17 AM EDT [facility] INR 1.0 0.9 - 1.1 LAB COAGULATION METHOD 01/20/2025 4:17 AM EDT [facility] Blood Venous blood specimen / Unknown Venipuncture / Unknown 01/20/2025 3:40 AM EDT 01/20/2025 3:56 AM EDT Narrative [facility] - 01/20/2025 4:17 AM EDT OPTIMAL INR RANGES FOR PATIENT ON ORAL ANTICOAGULANT THERAPY Prevention of venous thromboembolism INR 2.0 to 3.0 In patients with heart disease: Atrial fibrillation INR 2.0 to 3.0 Valvular heart disease INR 2.0 to 3.0 Tissue heart valves INR 2.0 to 3.0 Mechanical prosthetic valves INR 2.5 to 3.5 Prevention of recurrent IN INR 2.5 to 3.5 us Sachin Garza MD LAB BLOOD ORDERABLES Final R esult [facility] [address] [place] [address] * (ABNORMAL) Basic metabolic panel (01/20/2025 3:40 AM EDT) Pathologist [facility] Glucose, Plasma 87 74 - 99 mg/dL 01/20/2025 4:51 AM EDT [facility] BUN, Plasma 30(H) 7 - 21 mg/dL 01/20/2025 4:51 AM EDT [facility] Creatinine, Plasma 1.59(H) 0.70 - 1.20 mg/dL 01/20/2025 4:51 AM EDT [facility] BUN/Creatinine Ratio 19 01/20/2025 4:51 AM EDT [facility] Sodium, Plasma 142 136 - 145 mmol/L 01/20/2025 4:51 AM EDT [facility] Potassium, Plasma 4.7 3.6 - 4.9 mmol/L 01/20/2025 4:51 AM EDT [facility] Chloride, Plasma 104 97 - 107 mmol/L 01/20/2025 4:51 AM EDT [facility] CO2, Plasma 26 22 - 29 mmol/L 01/20/2025 4:51 AM EDT [facility] Anion Gap 12 6 - 16 mmol/L 01/20/2025 4:51 AM EDT [facility] Total Calcium, Plasma 8.9 8.9 - 10.2 mg/dL 01/20/2025 4:51 AM EDT [facility] eGFRcr 57.7 mL/min/1.7 3m*2 01/20/2025 4:51 AM EDT [facility] Comment:Reported eGFRcr in m L/min/1.73m2 is based the CKD-EPI 2020 equation that does not use a race coefficient. Blood Venous blood specimen / Unknown Venipuncture / Unknown 01/20/2025 3:40 AM EDT 01/20/2025 3:57 AM EDT Sachin Garza MD LAB BLOOD ORDERABLES Final R esult [facility] [address] [place] [address] * (ABNORMAL) CBC W/O Differential (01/20/2025 3:40 AM EDT) WBC Count 8.11 3.70 - 10.30 10*3/uL LAB HEMATOLOGY METHOD 01/20/2025 4:04 AM EDT [facility] RBC Count 3.64(L) 4.60 - 6.10 10*6/uL LAB HEMATOLOGY METHOD 01/20/2025 4:04 AM EDT [facility] HGB 10.7(L) 13.7 - 17.5 g/dL LAB HEMATOLOGY METHOD 01/20/2025 4:04 AM EDT [facility] HCT 34.5(L) 40.0 - 51.0 % LAB HEMATOLOGY METHOD 01/20/2025 4:04 AM EDT [facility] Platelet Count 399(H) 155 - 369 10*3/uL LAB HEMATOLOGY METHOD 01/20/2025 4:04 AM EDT [facility] MCV 95 79 - 98 fL LAB HEMATOLOGY METHOD 01/20/2025 4:04 AM EDT [facility] MCH 29.4 26.0 - 32.0 pg LAB HEMATOLOGY METHOD 01/20/2025 4:04 AM EDT [facility] MCHC 31.0 30.7 - 35.5 g/dL LAB HEMATOLOGY METHOD 01/20/2025 4:04 AM EDT [facility] RDW 13.1 11.5 - 14.5 % LAB HEMATOLOGY METHOD 01/20/2025 4:04 AM EDT [facility] MPV 9.5 8.8 - 12.5 fL LAB HEMATOLOGY METHOD 01/20/2025 4:04 AM EDT [facility] nRBC 0.0 <=0.0 per 100 WBCs LAB HEMATOLOGY METHOD 01/20/2025 4:04 AM EDT [facility] Blood Venous blood specimen / Unknown Venipuncture / Unknown 01/20/2025 3:40 AM EDT 01/20/2025 3:56 AM EDT us Sachin Garza MD LAB BLOOD ORDERABLES Final R esult Performing Organization Address City/[facility]/ZIP Co de Phone Number [facility] [address] [place] [address] * Vancomycin, random (01/19/2025 11:48 AM EDT) Vancomycin, Random, Plasma 22.9 ug/mL 01/19/2025 1:05 PM EDT [facility] Blood Venous blood specimen / Unknown Venipuncture / Unknown 01/19/2025 11:48 AM EDT 01/19/2025 11:50 AM EDT us Sachin Garza MD LAB BLOOD ORDERABLES Final R esult [facility] [address] [place] [address] * (ABNORMAL) Basic Metabolic Panel, Plasma (01/18/2025 11:54 PM EDT) Glucose, Plasma 134(H) 74 - 99 mg/dL 01/19/2025 12:45 AM EDT [facility] BUN, Plasma 24(H) 7 - 21 mg/dL 01/19/2025 12:45 AM EDT [facility] Creatinine, Plasma 1.34(H) 0.70 - 1.20 mg/dL 01/19/2025 12:45 AM EDT [facility] BUN/Creatinine Ratio 18 01/19/2025 12:45 AM EDT [facility] Sodium, Plasma 137 136 - 145 mmol/L 01/19/2025 12:45 AM EDT [facility] Potassium, Plasma 4.7 3.6 - 4.9 mmol/L 01/19/2025 12:45 AM EDT [facility] Chloride, Plasma 100 97 - 107 mmol/L 01/19/2025 12:45 AM EDT [facility] CO2, Plasma 24 22 - 29 mmol/L 01/19/2025 12:45 AM EDT [facility] Anion Gap 13 6 - 16 mmol/L 01/19/2025 12:45 AM EDT [facility] Total Calcium, Plasma 9.3 8.9 - 10.2 mg/dL 01/19/2025 12:45 AM EDT [facility] eGFRcr 70.8 mL/min/1.7 3m*2 01/19/2025 12:45 AM EDT [facility] Comment:Reported eGFRcr in m L/min/1.73m2 is based the CKD-EPI 2020 equation that does not use a race coefficient. Blood Venous blood specimen / Unknown Venipuncture / Unknown 01/18/2025 11:54 PM EDT 01/19/2025 12:16 AM EDT us Sachin Garza MD LAB BLOOD ORDERABLES Final R esult [facility] [address] [place] [address] * (ABNORMAL) CBC W/O Differential (01/18/2025 11:54 PM EDT) WBC Count 11.85(H) 3.70 - 10.30 10*3/uL LAB HEMATOLOGY METHOD 01/19/2025 12:20 AM EDT [facility] RBC Count 3.76(L) 4.60 - 6.10 10*6/uL LAB HEMATOLOGY METHOD 01/19/2025 12:20 AM EDT [facility] HGB 11.3(L) 13.7 - 17.5 g/dL LAB HEMATOLOGY METHOD 01/19/2025 12:20 AM EDT [facility] HCT 34.2(L) 40.0 - 51.0 % LAB HEMATOLOGY METHOD 01/19/2025 12:20 AM EDT [facility] Platelet Count 394(H) 155 - 369 10*3/uL LAB HEMATOLOGY METHOD 01/19/2025 12:20 AM EDT [facility] MCV 91 79 - 98 fL LAB HEMATOLOGY METHOD 01/19/2025 12:20 AM EDT [facility] MCH 30.1 26.0 - 32.0 pg LAB HEMATOLOGY METHOD 01/19/2025 12:20 AM EDT [facility] MCHC 33.0 30.7 - 35.5 g/dL LAB HEMATOLOGY METHOD 01/19/2025 12:20 AM EDT [facility] RDW 12.9 11.5 - 14.5 % LAB HEMATOLOGY METHOD 01/19/2025 12:20 AM EDT [facility] MPV 9.5 8.8 - 12.5 fL LAB HEMATOLOGY METHOD 01/19/2025 12:20 AM EDT [facility] nRBC 0.0 <=0.0 per 100 WBCs LAB HEMATOLOGY METHOD 01/19/2025 12:20 AM EDT [facility] Blood Venous blood specimen / Unknown Venipuncture / Unknown 01/18/2025 11:54 PM EDT 01/19/2025 12:13 AM EDT us Sachin Garza MD LAB BLOOD ORDERABLES Final R esult [facility] [address] [place] [address] * Fungal Culture, Sterile Body Fluid (NOT CSF) and SYEDA (01/18/2025 3:28 PM EDT) Culture No Fungal Growth at 3 Weeks 02/10/2025 8:37 AM EDT [facility] SYEDA No fungal elements seen 02/10/2025 8:37 AM EDT [facility] Joint Fluid Topography unknown / Unknown Non-blood Collection / Unknown 01/18/2025 3:28 PM EDT 01/18/2025 3:28 PM EDT Sachin Garza MD LAB MICROBIOLOGY - GENERAL O RDERABLES Final Result Performing Organization Address [facility]/ZIP Co de Phone Number [facility] [address] [place] [address] * Anaerobic Culture (01/18/2025 3:28 PM EDT) Culture No anaerobes isolated 01/23/2025 7:50 AM EDT [facility] Joint Fluid Topography unknown / Unknown Non-blood Collection / Unknown 01/18/2025 3:28 PM EDT 01/18/2025 3:28 PM EDT Sachin Garza MD LAB MICROBIOLOGY - GENERAL O RDERABLES Final Result Performing Organization Address [facility] de Phone Number [facility] [address] [place] [address] * (ABNORMAL) Body Fluid Culture and Gram Stain (01/18/2025 3:28 PM EDT) Culture Heavy Growth 01/20/2025 8:34 AM EDT [facility] Culture Methicillin-Resista nt Staphylococcus aureus(AA) 01/20/2025 8:34 AM EDT [facility] Comment: For susceptibility results refer to: - [id number] The organism value for this result has been updated. These results have been appended to the previously preliminary verified report. Edited result: Previously reported as Staphylococcus aureus on 01/19/2025 at 0933 EDT. Staphylococcus aureus has been updated to reportable. Gram Stain Result Numerous Polymorphonuclear leukocytes 01/20/2025 8:34 AM EDT [facility] Gram Stain Result No organisms seen 01/20/2025 8:34 AM EDT [facility] Joint Fluid Topography unknown / Unknown Non-blood Collection / Unknown 01/18/2025 3:28 PM EDT 01/18/2025 3:28 PM EDT us Sachin Garza MD LAB MICROBIOLOGY - GENERAL O RDERABLES Final Result Performing Organization Address City/[facility]/ZIP Co de Phone Number [facility] [address] [place] [address] * Body fluid, cytospin, pathologist interpretation (01/18/2025 3:01 PM EDT) Specimen Type Joint Fluid LAB HEMATOLOGY METHOD 01/20/2025 4:29 PM EDT [facility] Specimen Source, Body Fluid Knee, Left LAB HEMATOLOGY METHOD 01/20/2025 4:29 PM EDT [facility] Clinical Diagnosis, Body Fluid Left lower extremity cellulitis LAB HEMATOLOGY METHOD 01/20/2025 4:29 PM EDT [facility] Interpretation , Body Fluid Bloody specimen Acute and chronic inflammatory cells Correlation with microbiology studies recommended A resident was involved in the service. I attest I examined the relevant preparations for the specimens and confirmed the diagnosis or interpretation. 01/20/2025 4:29 PM EDT [facility] Pathologist Signature, Body Fluid 01/20/2025 4:29 PM EDT [facility] Comment:Reviewed by: Stephanie conti MD LAB CP ASR DISCLAIMER Yes 01/20/2025 4:29 PM EDT [facility] Joint Fluid Structure of left knee region / Unknown 01/18/2025 3:01 PM EDT 01/18/2025 3:28 PM EDT us Sachin Garza MD LAB BODY FLUIDS AND STOOLS O RDERABLES Final Result Performing Organization Address City/[facility]/ZIP Co de Phone Number [facility] [address] [place] [address] * Joint Fluid Crystals (01/18/2025 3:01 PM EDT) Crystals, Joint Fluid No Crystals Seen No Crystals Present 01/18/2025 5:28 PM EDT [facility] Joint Fluid Structure of left knee region / Unknown 01/18/2025 3:01 PM EDT 01/18/2025 3:28 PM EDT us Sachin Garza MD LAB BODY FLUIDS AND STOOLS O RDERABLES Final Result [facility] [address] [place] [address] * (ABNORMAL) Body Fluid Cell Count w/ Diff (01/18/2025 3:01 PM EDT) Color, Body fluid Red LAB HEMATOLOGY METHOD 01/18/2025 11:05 PM EDT [facility] Appearance, Body fluid Cloudy(A) LAB HEMATOLOGY METHOD 01/18/2025 11:05 PM EDT [facility] Volume, Body fluid 3.5 cc LAB HEMATOLOGY METHOD 01/18/2025 11:05 PM EDT [facility] Fluid Container Specimen received in EDTA tube LAB HEMATOLOGY METHOD 01/18/2025 11:05 PM EDT [facility] Red Blood Cell Count, Body fluid 299,000 uL LAB HEMATOLOGY METHOD 01/18/2025 11:05 PM EDT [facility] Total Nucleated Cell Count, Body fluid 873 uL LAB HEMATOLOGY METHOD 01/18/2025 11:05 PM EDT [facility] Neutrophils %, Body fluid 17 % LAB HEMATOLOGY METHOD 01/18/2025 11:05 PM EDT [facility] Lymphocytes %, Body fluid 55 % LAB HEMATOLOGY METHOD 01/18/2025 11:05 PM EDT [facility] Monocytes/Macro phages %, Body fluid 27 % LAB HEMATOLOGY METHOD 01/18/2025 11:05 PM EDT [facility] Eosinophils %, Body fluid 1 % LAB HEMATOLOGY METHOD 01/18/2025 11:05 PM EDT [facility] Lining/Mesothel ial Cells %, Body fluid 0 % LAB HEMATOLOGY METHOD 01/18/2025 11:05 PM EDT [facility] Neutrophils Absolute (PMN), Body fluid 148 uL LAB HEMATOLOGY METHOD 01/18/2025 11:05 PM EDT [facility] Lymphocytes Absolute, Body fluid 480 uL LAB HEMATOLOGY METHOD 01/18/2025 11:05 PM EDT [facility] Monocytes/Macro phages Absolute, Body fluid 236 uL LAB HEMATOLOGY METHOD 01/18/2025 11:05 PM EDT [facility] Eosinophils Absolute, Body fluid 9 uL LAB HEMATOLOGY METHOD 01/18/2025 11:05 PM EDT [facility] Basophils Absolute, Body fluid 0 uL LAB HEMATOLOGY METHOD 01/18/2025 11:05 PM EDT [facility] Lining/Mesothel ial Cells Absolute, Body fluid 0 uL LAB HEMATOLOGY METHOD 01/18/2025 11:05 PM EDT [facility] Comment, Body fluid None LAB HEMATOLOGY METHOD 01/18/2025 11:05 PM EDT [facility] Comment:This is an appended report. These results have been appended to a previously preliminary verified report. Basophils %, Body fluid 0 % LAB HEMATOLOGY METHOD 01/18/2025 11:05 PM EDT [facility] Joint Fluid Structure of left knee region / Unknown 01/18/2025 3:01 PM EDT 01/18/2025 3:28 PM EDT us Sachin Garza MD LAB BODY FLUIDS AND STOOLS ORDERABLES NO SPECIMEN TYPE/SOURCE Final Result [facility] [address] [place] [address] * Body Fluid Culture and Gram Stain (01/18/2025 12:17 PM EDT) Culture No growth at day 4 2024 11:06 AM EDT [facility] Gram Stain Result No polymorphonuclear leukocytes seen 01/21/2025 11:06 AM EDT [facility] Gram Stain Result No organisms seen 01/21/2025 11:06 AM EDT [facility] Joint Fluid Synovial fluid specimen / Unknown Non-blood Collection / Unknown 01/18/2025 12:17 PM EDT 01/18/2025 3:24 PM EDT Comment:Pre-op diagnosis: Cellulitis of left lower extremity [L03.116] us Dwaine Yevtukh DO LAB MICROBIOLOGY - GENERAL ORDERABLES Final Result [facility] [address] [place] [address] * Joint Infection Panel by PCR (01/18/2025 12:17 PM EDT) Anaerococcus prevotii/vaginalis PCR Result Not Detected Not Detected 01/18/2025 5:28 PM EDT [facility] Clostridium perfringens PCR Result Not Detected Not Detected 01/18/2025 5:28 PM EDT [facility] Cutibacterium avidum/granulosum PCR Result Not Detected Not Detected 01/18/2025 5:28 PM EDT [facility] Enterococcus faecalis PCR Result Not Detected Not Detected 01/18/2025 5:28 PM EDT [facility] Enterococcus faecium PCR Result Not Detected Not Detected 01/18/2025 5:28 PM EDT [facility] Finegoldia magna PCR Result Not Detected Not Detected 01/18/2025 5:28 PM EDT [facility] Parvimonas micra PCR Result Not Detected Not Detected 01/18/2025 5:28 PM EDT [facility] Peptoniphilus PCR Result Not Detected Not Detected 01/18/2025 5:28 PM EDT [facility] Peptostreptococcus anaerobius PCR Result Not Detected Not Detected 01/18/2025 5:28 PM EDT [facility] Staphylococcus aureus PCR Result Not Detected Not Detected 01/18/2025 5:28 PM EDT [facility] Staphylococcus lugdunensis PCR Result Not Detected Not Detected 01/18/2025 5:28 PM EDT [facility] Streptococcus spp PCR Result Not Detected Not Detected 01/18/2025 5:28 PM EDT [facility] Streptococcus agalactiae PCR Result Not Detected Not Detected 01/18/2025 5:28 PM EDT [facility] Streptococcus pneumoniae PCR Result Not Detected Not Detected 01/18/2025 5:28 PM EDT [facility] Streptococcus pyogenes PCR Result Not Detected Not Detected 01/18/2025 5:28 PM EDT [facility] Bacteroides fragilis PCR Result Not Detected Not Detected 01/18/2025 5:28 PM EDT [facility] Citrobacter PCR Result Not Detected Not Detected 01/18/2025 5:28 PM EDT [facility] Enterobacter cloacae complex PCR Result Not Detected Not Detected 01/18/2025 5:28 PM EDT [facility] Escherichia coli PCR Result Not Detected Not Detected 01/18/2025 5:28 PM EDT [facility] Haemophilus influenzae PCR Result Not Detected Not Detected 01/18/2025 5:28 PM EDT [facility] Kingella kingae PCR Result Not Detected Not Detected 01/18/2025 5:28 PM EDT [facility] Klebsiella aerogenes PCR Result Not Detected Not Detected 01/18/2025 5:28 PM EDT [facility] Klebsiella pneumoniae group PCR Result Not Detected Not Detected 01/18/2025 5:28 PM EDT [facility] Morganella morganii PCR Result Not Detected Not Detected 01/18/2025 5:28 PM EDT [facility] Neisseria gonorrhoeae PCR Result Not Detected Not Detected 01/18/2025 5:28 PM EDT [facility] Proteus spp PCR Result Not Detected Not Detected 01/18/2025 5:28 PM EDT [facility] Pseudomonas aeruginosa PCR Result Not Detected Not Detected 01/18/2025 5:28 PM EDT [facility] [facility] Salmonella spp PCR Result Not Detected Not Detected 01/18/2025 5:28 PM EDT [facility] Serratia marcescens PCR Result Not Detected Not Detected 01/18/2025 5:28 PM EDT [facility] Nelda PCR Result Not Detected Not Detected 01/18/2025 5:28 PM EDT [facility] Nelda albicans PCR Result Not Detected Not Detected 01/18/2025 5:28 PM EDT [facility] CTXM PCR Result Not Detected Not Detected 01/18/2025 5:28 PM EDT [facility] IMP PCR Result Not Detected Not Detected 01/18/2025 5:28 PM EDT [facility] KPC PCR Result Not Detected Not Detected 01/18/2025 5:28 PM EDT [facility] mecA/C and MREJ (MRSA) PCR Result Not Detected Not Detected 01/18/2025 5:28 PM EDT [facility] NDM PCR Result Not Detected Not Detected 01/18/2025 5:28 PM EDT [facility] OXA-48-like PCR Result Not Detected Not Detected 01/18/2025 5:28 PM EDT [facility] Jarret/B PCR Result Not Detected Not Detected 01/18/2025 5:28 PM EDT [facility] VIM PCR Result Not Detected Not Detected 01/18/2025 5:28 PM EDT [facility] Joint Fluid Synovial fluid specimen / Unknown Non-blood Collection / Unknown 01/18/2025 12:17 PM EDT 01/18/2025 3:24 PM EDT Narrative [facility] - 01/18/2025 5:28 PM EDT This [...] spp. Pseudomonas aeruginosa, Salmonella spp., Serratia marcescens, Nelda, Nelda albicans and CTX-M, IMP, KPC, mecA/C [...] MICROBIOLOGY - GENERAL O RDERABLES Final Result [facility] [address] [place] [address] * Fungal Culture, Tissue and SYEDA (01/18/2025 10:00 AM EDT) Culture Reading Mycological 4 Weeks No Fungal Growth at 4 Weeks 02/16/2025 8:50 AM EDT [facility] SYEDA No fungal elements seen 02/16/2025 8:50 AM EDT [facility] Tissue Topography unknown / Unknown 01/18/2025 10:00 AM EDT 01/18/2025 3:26 PM EDT Comment:Pre-op diagnosis: Cellulitis of left lower extremity [L03.116] [facility] LAB MICROBIOLOGY - GENERAL ORDERABLES Final Result Performing Organization Address [facility] de Phone Number [facility] [address] [place] [address] * (ABNORMAL) Tissue Culture and Gram Stain (01/18/2025 10:00 AM EDT) Culture Heavy Growth 01/20/2025 8:34 AM EDT [facility] Culture Methicillin-Resista nt Staphylococcus aureus(AA) JOVANI 01/20/2025 8:34 AM EDT [facility] Comment: The organism value for this result has been updated. These results have been appended to the previously preliminary verified report. Edited result: Previously reported as Staphylococcus aureus on 01/19/2025 at 0914 EDT. Staphylococcus aureus has been updated to reportable. Gram Stain Result Numerous Polymorphonuclear leukocytes(A) 01/20/2025 8:34 AM EDT [facility] Gram Stain Result Rare Gram positive cocci in clusters(A) 01/20/2025 8:34 AM EDT [facility] Tissue Topography unknown / Unknown 01/18/2025 [...] Staphylococcus aureus Vancomycin JOVANI 1 ug/ml: Susceptible [facility] MICROBIOLOGY - GENERAL ORDERABLES Final Result Performing Organization Address City/[facility]/ZIP Co de Phone Number [facility] [address] [place] [address] * Anaerobic Culture (01/18/2025 10:00 AM EDT) Culture No anaerobes isolated 01/23/2025 7:50 AM EDT [facility] Tissue Topography unknown / Unknown 01/18/2025 10:00 AM EDT 01/18/2025 3:26 PM EDT Comment:Pre-op diagnosis: Cellulitis of left lower extremity [L03.116] [facility] LAB MICROBIOLOGY - GENERAL ORDERABLES Final Result Performing Organization Address City/[facility]/ZIP Co de Phone Number [facility] [address] [place] [address] * Body fluid, cytospin, pathologist interpretation (01/18/2025 9:57 AM EDT) Specimen Type Cyst Fluid LAB HEMATOLOGY METHOD 01/20/2025 4:28 PM EDT [facility] Specimen Source, Body Fluid Other (specify site) LAB HEMATOLOGY METHOD 01/20/2025 4:28 PM EDT [facility] Clinical Diagnosis, Body Fluid Left lower extremity cyst fluid LAB HEMATOLOGY METHOD 01/20/2025 4:28 PM EDT [facility] Interpretation , Body Fluid No evidence of malignancy Bloody specimen Acute inflammatory cells Correlation with microbiology studies recommended A resident was involved in the service. I attest I examined the relevant preparations for the specimens and confirmed the diagnosis or interpretation. 01/20/2025 4:28 PM EDT [facility] Pathologist Signature, Body Fluid 01/20/2025 4:28 PM EDT [facility] Comment:Reviewed by: Stephanie conti MD LAB CP ASR DISCLAIMER Yes 01/20/2025 4:28 PM EDT [facility] Cyst Fluid Topography unknown / Unknown 01/18/2025 9:57 AM EDT 01/18/2025 3:19 PM EDT Dwaine Simonead[facility]hiv[facility] LAB BODY FLUIDS AND STOOLS ORDERABLES Final Result [facility] [address] [place] [address] * (ABNORMAL) Body Fluid Cell Count w/ Diff (01/18/2025 9:57 AM EDT) Color, Body fluid Red LAB HEMATOLOGY METHOD 01/18/2025 7:13 PM EDT [facility] Appearance, Body fluid Cloudy(A) LAB HEMATOLOGY METHOD 01/18/2025 7:13 PM EDT [facility] Volume, Body fluid 10.0 cc LAB HEMATOLOGY METHOD 01/18/2025 7:13 PM EDT [facility] Fluid Container Specimen received in miscellaneous container LAB HEMATOLOGY METHOD 01/18/2025 7:13 PM EDT [facility] Red Blood Cell Count, Body fluid 240,000 uL LAB HEMATOLOGY METHOD 01/18/2025 7:13 PM EDT [facility] Comment:Clot present, may af fect results. Test performed by manual method. Total Nucleated Cell Count, Body fluid 83,500 uL LAB HEMATOLOGY METHOD 01/18/2025 7:13 PM EDT [facility] Comment:Clot present, may af fect results. Test performed by manual method. Neutrophils %, Body fluid 98 % LAB HEMATOLOGY METHOD 01/18/2025 7:13 PM EDT [facility] Lymphocytes %, Body fluid 2 % LAB HEMATOLOGY METHOD 01/18/2025 7:13 PM EDT [facility] Monocytes/Macr ophages %, Body fluid 0 % LAB HEMATOLOGY METHOD 01/18/2025 7:13 PM EDT [facility] Eosinophils %, Body fluid 0 % LAB HEMATOLOGY METHOD 01/18/2025 7:13 PM EDT [facility] Lining/[place]es[place] lial Cells %, Body fluid 0 % LAB HEMATOLOGY METHOD 01/18/2025 7:13 PM EDT [facility] Neutrophils Absolute (PMN), Body fluid 81,830 uL LAB HEMATOLOGY METHOD 01/18/2025 7:13 PM EDT [facility] Lymphocytes Absolute, Body fluid 1,670 uL LAB HEMATOLOGY METHOD 01/18/2025 7:13 PM EDT [facility] Monocytes/Macr ophages Absolute, Body fluid 0 uL LAB HEMATOLOGY METHOD 01/18/2025 7:13 PM EDT [facility] Eosinophils Absolute, Body fluid 0 uL LAB HEMATOLOGY METHOD 01/18/2025 7:13 PM EDT [facility] Basophils Absolute, Body fluid 0 uL LAB HEMATOLOGY METHOD 01/18/2025 7:13 PM EDT [facility] Lining/Mesothe lial Cells Absolute, Body fluid 0 uL LAB HEMATOLOGY METHOD 01/18/2025 7:13 PM EDT [facility] Comment, Body fluid Bacteria seen. LAB HEMATOLOGY METHOD 01/18/2025 7:13 PM EDT [facility] Basophils %, Body fluid 0 % LAB HEMATOLOGY METHOD 01/18/2025 7:13 PM EDT [facility] Cyst Fluid Topography unknown / Unknown 01/18/2025 9:57 AM EDT 01/18/2025 3:19 PM EDT Comment:Pre-op diagnosis: Cellulitis of left lower extremity [L03.116] Dwaine Das DO LAB BODY FLUIDS AND STOOLS ORDERABLES NO SPECIMEN TYPE/SOURCE Final Result [facility] [address] [place] [address] * Fungal Culture, Sterile Body Fluid (NOT CSF) and SYEDA (01/18/2025 9:57 AM EDT) Culture No Fungal Growth at 3 Weeks 02/10/2025 8:37 AM EDT [facility] SYEDA No fungal elements seen 02/10/2025 8:37 AM EDT [facility] Cyst Fluid Topography unknown / Unknown 01/18/2025 9:57 AM EDT 01/18/2025 3:26 PM EDT Comment:Pre-op diagnosis: Cellulitis of left lower extremity [L03.116] [facility] MICROBIOLOGY - GENERAL ORDERABLES Final Result Performing Organization Address City/[facility] Co de Phone Number [facility] [address] [place] [address] * (ABNORMAL) Body Fluid Culture and Gram Stain (01/18/2025 9:57 AM EDT) Culture Heavy Growth 01/20/2025 8:34 AM EDT [facility] Culture Methicillin-Resista nt Staphylococcus aureus(AA) 01/20/2025 8:34 AM EDT [facility] Comment: For susceptibility results refer to: - [id number] The organism value for this result has been updated. These results have been appended to the previously preliminary verified report. Edited result: Previously reported as Staphylococcus aureus on 01/19/2025 at 0916 EDT. Staphylococcus aureus has been updated to reportable. Gram Stain Result Numerous Polymorphonuclear leukocytes(A) 01/20/2025 8:34 AM EDT [facility] Gram Stain Result Moderate Gram positive cocci in clusters(A) 01/20/2025 8:34 AM EDT [facility] Cyst Fluid Topography unknown / Unknown 01/18/2025 9:57 AM EDT 01/18/2025 3:26 PM EDT Comment:Pre-op diagnosis: Cellulitis of left lower extremity [L03.116] [facility] MICROBIOLOGY - GENERAL ORDERABLES Final Result Performing Organization Address City/[facility]/ZIP Co de Phone Number [facility] [address] [place] [address] * Anaerobic Culture (01/18/2025 9:57 AM EDT) Pathologist [facility] Culture No anaerobes isolated 01/23/2025 7:50 AM EDT [facility] Cyst Fluid Topography unknown / Unknown 01/18/2025 9:57 AM EDT 01/18/2025 3:26 PM EDT Comment:Pre-op diagnosis: Cellulitis of left lower extremity [L03.116] Dwaine Das DO LAB MICROBIOLOGY - GENERAL ORDERABLES Final Result Performing Organization Address [facility]/ZIP Co de Phone Number [facility] [address] [place] [address] * Methicillin Resistant Staphylococcus aureus (MRSA) by PCR (01/18/2025 7:43 AM EDT) [facility] Methicillin Resistant Staphylococcus aureus (MRSA) by PCR Not Detected Not Detected 01/18/2025 9:36 AM EDT [facility] Swab Both anterior nares / Unknown Non-blood Collection / Unknown 01/18/2025 7:43 AM EDT 01/18/2025 8:19 AM EDT Narrative [facility] - 01/18/2025 9:36 AM EDT This test is FDA approved for use with nares swab specimens using the eSwabs. This test is used for clinical purposes. It should not be regarded as investigational or for research. This laboratory is certified under the Clinical Laboratory improvement Amendments of 1988 (CLIA-88 as qualified to perform high complexity clinical laboratory testing. Sachin Garza MD LAB MICROBIOLOGY - GENERAL O RDERABLES Final Result Performing Organization Address City/[facility]/ZIP Co de Phone Number [facility] [address] [place] [address] * (ABNORMAL) Basic metabolic panel (01/18/2025 12:18 AM EDT) Pathologist [facility] Glucose, Plasma 105(H) 74 - 99 mg/dL 01/18/2025 1:30 AM EDT [facility] BUN, Plasma 14 7 - 21 mg/dL 01/18/2025 1:30 AM EDT [facility] Creatinine, Plasma 0.80 0.70 - 1.20 mg/dL 01/18/2025 1:30 AM EDT [facility] BUN/Creatinine Ratio 18 01/18/2025 1:30 AM EDT [facility] Sodium, Plasma 137 136 - 145 mmol/L 01/18/2025 1:30 AM EDT [facility] Potassium, Plasma 4.3 3.6 - 4.9 mmol/L 01/18/2025 1:30 AM EDT [facility] Chloride, Plasma 100 97 - 107 mmol/L 01/18/2025 1:30 AM EDT [facility] CO2, Plasma 26 22 - 29 mmol/L 01/18/2025 1:30 AM EDT [facility] Anion Gap 11 6 - 16 mmol/L 01/18/2025 1:30 AM EDT [facility] Total Calcium, Plasma 9.0 8.9 - 10.2 mg/dL 01/18/2025 1:30 AM EDT [facility] eGFRcr 118.4 mL/min/1.7 3m*2 01/18/2025 1:30 AM EDT [facility] Comment:Reported eGFRcr in m L/min/1.73m2 is based the CKD-EPI 2020 equation that does not use a race coefficient. Blood Venous blood specimen / Unknown Venipuncture / Unknown 01/18/2025 12:18 AM EDT 01/18/2025 12:27 AM EDT us Sachin Garza MD LAB BLOOD ORDERABLES Final R esult [facility] [address] [place] [address] * (ABNORMAL) CBC W/O Differential (01/18/2025 12:18 AM EDT) WBC Count 8.77 3.70 - 10.30 10*3/uL LAB HEMATOLOGY METHOD 01/18/2025 12:36 AM EDT [facility] RBC Count 3.94(L) 4.60 - 6.10 10*6/uL LAB HEMATOLOGY METHOD 01/18/2025 12:36 AM EDT [facility] HGB 11.7(L) 13.7 - 17.5 g/dL LAB HEMATOLOGY METHOD 01/18/2025 12:36 AM EDT [facility] HCT 37.1(L) 40.0 - 51.0 % LAB HEMATOLOGY METHOD 01/18/2025 12:36 AM EDT [facility] Platelet Count 347 155 - 369 10*3/uL LAB HEMATOLOGY METHOD 01/18/2025 12:36 AM EDT [facility] MCV 94 79 - 98 fL LAB HEMATOLOGY METHOD 01/18/2025 12:36 AM EDT [facility] MCH 29.7 26.0 - 32.0 pg LAB HEMATOLOGY METHOD 01/18/2025 12:36 AM EDT [facility] MCHC 31.5 30.7 - 35.5 g/dL LAB HEMATOLOGY METHOD 01/18/2025 12:36 AM EDT [facility] RDW 13.1 11.5 - 14.5 % LAB HEMATOLOGY METHOD 01/18/2025 12:36 AM EDT [facility] MPV 9.5 8.8 - 12.5 fL LAB HEMATOLOGY METHOD 01/18/2025 12:36 AM EDT [facility] nRBC 0.0 <=0.0 per 100 WBCs LAB HEMATOLOGY METHOD 01/18/2025 12:36 AM EDT [facility] Blood Venous blood specimen / Unknown Venipuncture / Unknown 01/18/2025 12:18 AM EDT 01/18/2025 12:29 AM EDT us Sachin Garza MD LAB BLOOD ORDERABLES Final R esult [facility] [address] [place] [address] * Vancomycin, Peak, Plasma Please draw ~2 hours after 1000 dose of vancomycin on Monday finishes infusing. Consider obtaining level via peripheral stick. If peripheral stick is not feasible, please ensure that line is flushed well prior to drawing l... (01/17/2025 2:03 PM EDT) Vancomycin, Peak, Plasma 22.0 20.0 - 40.0 ug/mL 01/17/2025 3:01 PM EDT [facility] Blood Venous blood specimen / Unknown Venipuncture / Unknown 01/17/2025 2:03 PM EDT 01/17/2025 2:32 PM EDT Narrative [facility] - 01/17/2025 3:01 PM EDT Therapeutic Peak level: 20-40ug/mL Supra-therapeutic Peak level: >40 ug/mL Sachin Garza MD LAB BLOOD ORDERABLES Final R esult Performing Organization Address [facility]/ZIP Co de Phone Number [facility] [address] [place] [address] * Vancomycin, Trough, Plasma Please draw ~30 minutes prior to dose due at 1000 on Monday. Please do NOT hold dose awaiting level to return. Consider obtaining level via peripheral stick. If peripheral stick is not feasible, please ensure that line ... (01/17/2025 9:53 AM EDT) Vancomycin, Trough, Plasma 12.5 10.0 - 20.0 ug/mL 01/17/2025 10:24 AM EDT [facility] Blood Venous blood specimen / Unknown Venipuncture / Unknown 01/17/2025 9:53 AM EDT 01/17/2025 9:57 AM EDT Narrative [facility] - 01/17/2025 10:24 AM EDT Therapeutic Trough level: 10-20ug/mL Supra-therapeutic Trough level: >20 ug/mL us Sachin Garza MD LAB BLOOD ORDERABLES Final R esult [facility] [address] [place] [address] * (ABNORMAL) Basic metabolic panel (01/17/2025 4:05 AM EDT) Glucose, Plasma 117(H) 74 - 99 mg/dL 01/17/2025 5:16 AM EDT [facility] BUN, Plasma 13 7 - 21 mg/dL 01/17/2025 5:16 AM EDT [facility] Creatinine, Plasma 0.75 0.70 - 1.20 mg/dL 01/17/2025 5:16 AM EDT [facility] BUN/Creatinine Ratio 17 01/17/2025 5:16 AM EDT [facility] Sodium, Plasma 135(L) 136 - 145 mmol/L 01/17/2025 5:16 AM EDT [facility] Potassium, Plasma 4.5 3.6 - 4.9 mmol/L 01/17/2025 5:16 AM EDT [facility] Chloride, Plasma 100 97 - 107 mmol/L 01/17/2025 5:16 AM EDT [facility] CO2, Plasma 25 22 - 29 mmol/L 01/17/2025 5:16 AM EDT [facility] Anion Gap 10 6 - 16 mmol/L 01/17/2025 5:16 AM EDT [facility] Total Calcium, Plasma 9.1 8.9 - 10.2 mg/dL 01/17/2025 5:16 AM EDT [facility] eGFRcr 120.7 mL/min/1.7 3m*2 01/17/2025 5:16 AM EDT [facility] Comment:Reported eGFRcr in m L/min/1.73m2 is based the CKD-EPI 2020 equation that does not use a race coefficient. Blood Venous blood specimen / Unknown Venipuncture / Unknown 01/17/2025 4:05 AM EDT 01/17/2025 4:35 AM EDT us Sachin Garza MD LAB BLOOD ORDERABLES Final R esult [facility] [address] [place] [address] * [place] Extremity Limited MSK or Soft [...] - 99 mg/dL 01/16/2025 5:15 AM EDT [facility] BUN, Plasma 12 7 - 21 mg/dL 01/16/2025 5:15 AM EDT [facility] Creatinine, Plasma 0.66(L) 0.70 - 1.20 mg/dL 01/16/2025 5:15 AM EDT [facility] BUN/Creatinine Ratio 18 01/16/2025 5:15 AM EDT [facility] Sodium, Plasma 136 136 - 145 mmol/L 01/16/2025 5:15 AM EDT [facility] Potassium, Plasma 4.5 3.6 - 4.9 mmol/L 01/16/2025 5:15 AM EDT [facility] Chloride, Plasma 100 97 - 107 mmol/L 01/16/2025 5:15 AM EDT [facility] CO2, Plasma 26 22 - 29 mmol/L 01/16/2025 5:15 AM EDT [facility] Anion Gap 10 6 - 16 mmol/L 01/16/2025 5:15 AM EDT [facility] Total Calcium, Plasma 8.8(L) 8.9 - 10.2 mg/dL 01/16/2025 5:15 AM EDT [facility] eGFRcr 125.4 mL/min/1.7 3m*2 01/16/2025 5:15 AM EDT [facility] Comment:Reported eGFRcr in m L/min/1.73m2 is based the CKD-EPI 2020 equation that does not use a race coefficient. Blood Venous blood specimen / Unknown Venipuncture / Unknown 01/16/2025 4:31 AM EDT 01/16/2025 4:46 AM EDT us Jeffrey Matute MD LAB BLOOD ORDERABLES Final Re sult [facility] [address] [place] [address] * Prothrombin Time/INR (01/16/2025 4:31 AM EDT) Prothrombin Time 12.9 12.0 - 14.3 sec 01/16/2025 4:46 AM EDT [facility] INR 1.0 0.9 - 1.1 01/16/2025 4:46 AM EDT [facility] Blood Venous blood specimen / Unknown Venipuncture / Unknown 01/16/2025 4:31 AM EDT 01/16/2025 4:33 AM EDT [facility] - 01/16/2025 4:46 AM EDT OPTIMAL INR RANGES FOR PATIENT ON ORAL ANTICOAGULANT THERAPY Prevention of venous thromboembolism INR 2.0 to 3.0 In patients with heart disease: Atrial fibrillation INR 2.0 to 3.0 Valvular heart disease INR 2.0 to 3.0 Tissue heart valves INR 2.0 to 3.0 Mechanical prosthetic valves INR 2.5 to 3.5 Prevention of recurrent IN INR 2.5 to 3.5 us Jeffrey Matute MD LAB BLOOD ORDERABLES Final Re sult [facility] [address] [place] [address] * (ABNORMAL) CBC W/O Differential (01/16/2025 4:31 AM EDT) WBC Count 17.78(H) 3.70 - 10.30 10*3/uL LAB HEMATOLOGY METHOD 01/16/2025 4:36 AM EDT [facility] RBC Count 4.14(L) 4.60 - 6.10 10*6/uL LAB HEMATOLOGY METHOD 01/16/2025 4:36 AM EDT [facility] HGB 12.4(L) 13.7 - 17.5 g/dL LAB HEMATOLOGY METHOD 01/16/2025 4:36 AM EDT [facility] HCT 37.6(L) 40.0 - 51.0 % LAB HEMATOLOGY METHOD 01/16/2025 4:36 AM EDT [facility] Platelet Count 359 155 - 369 10*3/uL LAB HEMATOLOGY METHOD 01/16/2025 4:36 AM EDT [facility] MCV 91 79 - 98 fL LAB HEMATOLOGY METHOD 01/16/2025 4:36 AM EDT [facility] MCH 30.0 26.0 - 32.0 pg LAB HEMATOLOGY METHOD 01/16/2025 4:36 AM EDT [facility] MCHC 33.0 30.7 - 35.5 g/dL LAB HEMATOLOGY METHOD 01/16/2025 4:36 AM EDT [facility] RDW 13.2 11.5 - 14.5 % LAB HEMATOLOGY METHOD 01/16/2025 4:36 AM EDT [facility] MPV 9.3 8.8 - 12.5 fL LAB HEMATOLOGY METHOD 01/16/2025 4:36 AM EDT [facility] nRBC 0.0 <=0.0 per 100 WBCs LAB HEMATOLOGY METHOD 01/16/2025 4:36 AM EDT [facility] Blood Venous blood specimen / Unknown Venipuncture / Unknown 01/16/2025 4:31 AM EDT 01/16/2025 4:33 AM EDT us Jeffrey Matute MD LAB BLOOD ORDERABLES Final Re sult [facility] [address] [place] [address] * CT Tibia Fibula Left w IV [...] MD on 01/16/2025 2:31 AM Gus Vigil [facility] IM CT PROCEDURES Final Result * Blood Culture (Aerobic/Anaerobet Set) (01/16/2025 12:24 AM EDT) Culture No growth at day 5 01/21/2025 2:02 AM EDT [facility] Blood Venous blood specimen / Unknown Venipuncture / Unknown 01/16/2025 12:24 AM EDT 01/16/2025 1:12 AM EDT Narrative [facility] - 01/21/2025 2:02 AM EDT Low blood volume submitted, results may be compromised Gus Vigil SPA MANAGER LAB MICROBIOLOGY - GENER AL ORDERABLES Final Result [facility] [address] [place] [address] * XR Chest 1 View (01/15/2025 11:21 [...] Rogers MD on 01/15/2025 11:40 PM Gus Rodger Evansen SPA MANAGER IMG XR PROCEDURES Final Result * XR [...] MD on 01/15/2025 11:40 PM Gus Vigil SPA MANAGER IMG XR PROCEDURES Final Result * Type [...] BLOOD BANK TEST ORDERA BLES Final Result BLOOD BANK [address] [place] [address], * ECG Adult (01/15/2025 10:46 PM EDT) EKG DIAGNOSIS CLASS Normal MUSE ECG Ventricular Rate 92 BPM MUSE ECG Atrial Rate 92 BPM MUSE ECG AL Interval 122 ms MUSE ECG QRSD Interval 102 ms MUSE ECG QT Interval 350 ms MUSE ECG QTC Interval 432 ms MUSE ECG P [place] 56 degrees MUSE ECG R [place] 44 degrees MUSE ECG T Wave [place] 57 degrees MUSE ECG Diagnosis Normal sinus rhythm MUSE ECG Diagnosis Normal ECG MUSE ECG Diagnosis MUSE ECG Diagnosis Confirmed by Richard Mccracken ([id number]) on 01/16/2025 8:55:10 PM MUSE ECG 01/15/2025 10:4 6 PM EDT 01/16/2025 8:55 PM EDT Ye Navarro MD ECG ORDERABLES Final Resu lt MUSE ECG * Blood Culture (Aerobic/Anaerobet Set) (01/15/2025 10:11 PM EDT) Culture No growth at day 5 01/20/2025 11:01 PM EDT [facility] Blood Structure of antecubital vein / Unknown Venipuncture / Unknown 01/15/2025 10:11 PM EDT 01/15/2025 10:19 PM EDT Narrative [facility] - 01/20/2025 11:01 PM EDT Low blood volume submitted, results may be compromised Gus Vigil APRN LAB MICROBIOLOGY - GENER AL ORDERABLES Final Result [facility] [address] [place] [address] * (ABNORMAL) Sed rate, automated (01/15/2025 10:11 PM EDT) Sedimentation Rate 46(H) <15 mm/hr 2024 10:34 PM EDT [facility] Blood Venous blood specimen / Unknown Venipuncture / Unknown 01/15/2025 10:11 PM EDT 01/15/2025 10:12 PM EDT [facility] LAB BLOOD ORDERABLES Fin al Result [facility] [address] [place] [address] * (ABNORMAL) C-Reactive protein (01/15/2025 10:11 PM EDT) CRP, Plasma 91.9(H) <=8.0 mg/L 01/15/2025 10:32 PM EDT [facility] Blood Venous blood specimen / Unknown Venipuncture / Unknown 01/15/2025 10:11 PM EDT 01/15/2025 10:12 PM EDT Narrative [facility] - 01/15/2025 10:32 PM EDT This CRP test is appropriate for assessment of infection, systemic inflammation and/or tissue injury. To assess cardiovascular disease risk order high sensitivity CRP (CRPH). us Gus Vigil APRN LAB BLOOD ORDERABLES Fin al Result [facility] [address] [place] [address] * (ABNORMAL) Blood gas panel, venous (01/15/2025 10:11 PM EDT) pH, Venous 7.39 7.32 - 7.43 LAB HEMATOLOGY METHOD 01/15/2025 10:14 PM EDT [facility] pCO2, Venous 47 40 - 55 mmHg LAB HEMATOLOGY METHOD 01/15/2025 10:14 PM EDT [facility] pO2, Venous 34 25 - 40 mmHg LAB HEMATOLOGY METHOD 01/15/2025 10:14 PM EDT [facility] SO2, Measured, Venous 68 65 - 80 % LAB HEMATOLOGY METHOD 01/15/2025 10:14 PM EDT [facility] Base Excess, Venous 2.8 -2.0 - 3.0 mmol/L LAB HEMATOLOGY METHOD 01/15/2025 10:14 PM EDT [facility] Bicarbonate, Calculated, Venous 29(H) 22 - 26 mmol/L LAB HEMATOLOGY METHOD 01/15/2025 10:14 PM EDT [facility] Hematocrit, Whole Blood 40.4 40.0 - 51.0 % LAB HEMATOLOGY METHOD 01/15/2025 10:14 PM EDT [facility] Sodium, Whole Blood 135(L) 136 - 145 mmol/L LAB HEMATOLOGY METHOD 01/15/2025 10:14 PM EDT [facility] Potassium, Whole Blood 4.3 3.6 - 4.9 mmol/L LAB HEMATOLOGY METHOD 01/15/2025 10:14 PM EDT [facility] Chloride, Whole Blood 99 97 - 107 mmol/L LAB HEMATOLOGY METHOD 01/15/2025 10:14 PM EDT [facility] Glucose, Whole Blood 110(H) 74 - 99 mg/dL LAB HEMATOLOGY METHOD 01/15/2025 10:14 PM EDT [facility] Lactate, Venous, Whole Blood 1.1 0.5 - 2.2 mmol/L LAB HEMATOLOGY METHOD 01/15/2025 10:14 PM EDT [facility] Ionized Calcium, Whole Blood 4.6 4.6 - 5.1 mg/dL LAB HEMATOLOGY METHOD 01/15/2025 10:14 PM EDT [facility] Blood Venous blood specimen / Unknown Venipuncture / Unknown 01/15/2025 10:11 PM EDT 01/15/2025 10:12 PM EDT Gus Vigil APRN LAB BLOOD ORDERABLES Fin al Result Performing Organization Address City/State/[facility] Co de Phone Number [facility] [address] [place] [address] * (ABNORMAL) CMP (01/15/2025 10:11 PM EDT) Glucose, Plasma 116(H) 74 - 99 mg/dL 01/15/2025 10:32 PM EDT [facility] BUN, Plasma 14 7 - 21 mg/dL 01/15/2025 10:32 PM EDT [facility] Creatinine, Plasma 0.78 0.70 - 1.20 mg/dL 01/15/2025 10:32 PM EDT [facility] BUN/Creatinine Ratio 18 01/15/2025 10:32 PM EDT [facility] Sodium, Plasma 134(L) 136 - 145 mmol/L 01/15/2025 10:32 PM EDT [facility] Potassium, Plasma 4.6 3.6 - 4.9 mmol/L 01/15/2025 10:32 PM EDT [facility] Chloride, Plasma 97 97 - 107 mmol/L 01/15/2025 10:32 PM EDT [facility] CO2, Plasma 24 22 - 29 mmol/L 01/15/2025 10:32 PM EDT [facility] Anion Gap 13 6 - 16 mmol/L 01/15/2025 10:32 PM EDT [facility] Total Calcium, Plasma 8.7(L) 8.9 - 10.2 mg/dL 01/15/2025 10:32 PM EDT [facility] Total Protein 6.5 6.3 - 7.9 g/dL 01/15/2025 10:32 PM EDT [facility] Albumin, Plasma 3.7 3.5 - 5.2 g/dL 01/15/2025 10:32 PM EDT [facility] AST, Plasma 23 10 - 50 U/L 01/15/2025 10:32 PM EDT [facility] ALT, Plasma 52(H) 10 - 50 U/L 01/15/2025 10:32 PM EDT [facility] Alkaline Phosphatase, Plasma 124(H) 40 - 115 U/L 01/15/2025 10:32 PM EDT [facility] Total Bilirubin, Plasma 0.3 0.2 - 1.1 mg/dL 01/15/2025 10:32 PM EDT [facility] eGFRcr 119.3 mL/min/1.7 3m*2 01/15/2025 10:32 PM EDT [facility] Comment:Reported eGFRcr in m L/min/1.73m2 is based the CKD-EPI 2020 equation that does not use a race coefficient. Blood Venous blood specimen / Unknown Venipuncture / Unknown 01/15/2025 10:11 PM EDT 01/15/2025 10:12 PM EDT us Gus Vigil SPA MANAGER LAB BLOOD ORDERABLES Fin al Result [facility] [address] [place] [address] * PT-INR (01/15/2025 10:11 PM EDT) Prothrombin Time 12.5 12.0 - 14.3 sec 01/15/2025 10:28 PM EDT [facility] INR 1.0 0.9 - 1.1 01/15/2025 10:28 PM EDT [facility] Blood Venous blood specimen / Unknown Venipuncture / Unknown 01/15/2025 10:11 PM EDT 01/15/2025 10:12 PM EDT Narrative [facility] - 01/15/2025 10:28 PM EDT OPTIMAL INR RANGES FOR PATIENT ON ORAL ANTICOAGULANT THERAPY Prevention of venous thromboembolism INR 2.0 to 3.0 In patients with heart disease: Atrial fibrillation INR 2.0 to 3.0 Valvular heart disease INR 2.0 to 3.0 Tissue heart valves INR 2.0 to 3.0 Mechanical prosthetic valves INR 2.5 to 3.5 Prevention of recurrent IN INR 2.5 to 3.5 Gus Vigil APRN LAB BLOOD ORDERABLES Fin al Result [facility] [address] [place] [address] * (ABNORMAL) CBC w/diff (01/15/2025 10:11 PM EDT) Pathologist [facility] WBC Count 19.24(H) 3.70 - 10.30 10*3/uL LAB HEMATOLOGY METHOD 01/15/2025 10:14 PM EDT [facility] RBC Count 4.33(L) 4.60 - 6.10 10*6/uL LAB HEMATOLOGY METHOD 01/15/2025 10:14 PM EDT [facility] HGB 13.0(L) 13.7 - 17.5 g/dL LAB HEMATOLOGY METHOD 01/15/2025 10:14 PM EDT [facility] HCT 39.3(L) 40.0 - 51.0 % LAB HEMATOLOGY METHOD 01/15/2025 10:14 PM EDT [facility] Platelet Count 383(H) 155 - 369 10*3/uL LAB HEMATOLOGY METHOD 01/15/2025 10:14 PM EDT [facility] MCV 91 79 - 98 fL LAB HEMATOLOGY METHOD 01/15/2025 10:14 PM EDT [facility] MCH 30.0 26.0 - 32.0 pg LAB HEMATOLOGY METHOD 01/15/2025 10:14 PM EDT [facility] MCHC 33.1 30.7 - 35.5 g/dL LAB HEMATOLOGY METHOD 01/15/2025 10:14 PM EDT [facility] RDW 13.2 11.5 - 14.5 % LAB HEMATOLOGY METHOD 01/15/2025 10:14 PM EDT [facility] MPV 9.2 8.8 - 12.5 fL LAB HEMATOLOGY METHOD 01/15/2025 10:14 PM EDT [facility] nRBC 0.0 <=0.0 per 100 WBCs LAB HEMATOLOGY METHOD 01/15/2025 10:14 PM EDT [facility] Differential Type Automated LAB HEMATOLOGY METHOD 01/15/2025 10:14 PM EDT [facility] Neutrophils % 78 % LAB HEMATOLOGY METHOD 01/15/2025 10:14 PM EDT [facility] Lymphocytes % 12 % LAB HEMATOLOGY METHOD 01/15/2025 10:14 PM EDT [facility] Monocytes % 8 % LAB HEMATOLOGY METHOD 01/15/2025 10:14 PM EDT [facility] Eosinophils % 1 % LAB HEMATOLOGY METHOD 01/15/2025 10:14 PM EDT [facility] Basophils % 0 % LAB HEMATOLOGY METHOD 01/15/2025 10:14 PM EDT [facility] Immature Granulocytes % 1 % LAB HEMATOLOGY METHOD 01/15/2025 10:14 PM EDT [facility] Neutrophils Absolute 15.11(H) 1.60 - 6.10 10*3/uL LAB HEMATOLOGY METHOD 01/15/2025 10:14 PM EDT [facility] Lymphocytes Absolute 2.34 1.20 - 3.90 10*3/uL LAB HEMATOLOGY METHOD 01/15/2025 10:14 PM EDT [facility] Monocytes Absolute 1.46(H) 0.30 - 0.90 10*3/uL LAB HEMATOLOGY METHOD 01/15/2025 10:14 PM EDT [facility] Eosinophils Absolute 0.13 0.00 - 0.50 10*3/uL LAB HEMATOLOGY METHOD 01/15/2025 10:14 PM EDT [facility] Basophils Absolute 0.06 0.00 - 0.10 10*3/uL LAB HEMATOLOGY METHOD 01/15/2025 10:14 PM EDT [facility] Immature Granulocytes Absolute 0.14(H) 0.00 - 0.06 10*3/uL LAB HEMATOLOGY METHOD 01/15/2025 10:14 PM EDT [facility] Blood Venous blood specimen / Unknown Venipuncture / Unknown 01/15/2025 10:11 PM EDT 01/15/2025 10:12 PM EDT Narrative [facility] - 01/15/2025 10:14 PM EDT Therapeutic decision making should be based on absolute values, rather than percentages. Gus Vigil APRN LAB BLOOD ORDERABLES [facility] al Result [facility] [address] [place] [address] documented in this encounter Visit Diagnoses Diagnosis Cellulitis of leg, left- Primary Sepsis following procedure, initial encounter ([facility]) Cellulitis of left lower extremity Acute postoperative pain Other acute postoperative pain Closed fracture of left tibial plateau with routine healing, subsequent encounter Cellulitis of leg, left Cellulitis of left lower extremity Sepsis following procedure ([facility]) Closed fracture of left tibial plateau Tibial plateau fracture, left, closed, initial encounter Surgical site infection documented in this encounter Admitting Diagnoses Diagnosis Cellulitis of leg, left Cellulitis of left lower extremity Sepsis following procedure ([facility]) Closed fracture of left tibial plateau [...] Starting on Sneha 01/16/25 at 0750, Until 01/22/25 at 1922, Routine, constipation, if no bowel [...] Subcutaneous, 2 times daily, First dose on Sneha 01/16/25 at 0900, Until Discontinued, Routine Given 01/22/2025 [...] 4.5 g, Intravenous, Once, 1 dose, On Sneha 01/16/25 at 0725, STAT New Bag 01/16/2025 7:40 [...] 17 g, Oral, Daily, First dose on Sneha 01/16/25 at 0900, Until Discontinued, Routine Given 01/17/2025 8:37 AM EDT 17 g senna-docusate (Janeth-Colace) 8.6-50 MG per tablet 1 tablet 1 tablet, Oral, 2 times daily, First dose on [facility] 01/16/25 at 0900, Until Discontinued, Routine Given 01/18/2025 8:21 PM EDT 1 tablet Given 01/17/2025 8:30 PM EDT 1 tablet Given 01/17/2025 8:37 AM EDT 1 tablet senna-docusate (Janeth-Colace) 8.6-50 MG per tablet 1 tablet 1 tablet, Oral, Nightly, First dose (after last modification) on Mon01/20/25 at 2100, Until Discontinued, Routine sodium chloride [...] Intravenous, Every 12 hours, First dose on [facility] 01/18/25 at 0930, Until Discontinued, Routine, Holding [...] Mon01/20/25 at 1200, at 166.7 mL/hr, Routine New [...] RN)0614 (Given - Provider: Taryn Miranda RN)0924 (OCT Hold - Provider: Automatic Transfer Provider - Reason: Patient in procedure)1200 (Dose Auto Held - Provider: Automatic Transfer Provider)1217 (OCT Unhold - Provider: Automatic Transfer Provider)1853 (Given - Provider: Alem Witt RN) 0021 (Given - Provider: Taryn Miranda RN)0617 (Given - Provider: Taryn Miranda RN)1221 (Given - Provider: Katalina Martinez RN)1709 (Not Given - Provider: Katalina Martinez RN - Reason: Hold for condition: must [...] Taryn Miranda RN)1221 (Given - Provider: Katalina Martinez RN) DAPTOmycin (Cubicin) 1,100 mg in sodium [...] procedure)1217 (OCT Unhold - Provider: Automatic Transfer Provider)2001 (Given - Provider: Taryn Miranda RN) 900 (Given - Provider: Katalina Martinez, SHEREEN)2106 (Given [...] Provider)2002 (Given - Provider: Taryn Miranda RN) 900 (Given - Provider: Katalina Martinez, SHEREEN)210 (Given - Provider: Taryn Miranda RN) 0847 [...] Alem Witt RN - Comment: left shoulder) 09 (Medication Applied - Provider: Katalina Martinez, SHEREEN) [...] Provider) 09 (Not Given - Provider: Katalina Martinez, SHEREEN - Reason: Patient/family refused) 0847 (Not Given [...] Sneha 01/16/25 at 0755, Until Discontinued, Routine 0650 (Given - Provider: Taryn Miranda, RN)0924 (OCT Hold - Provider: Automatic Transfer Provider - Reason: Patient in procedure)121 (OCT Unhold - Provider: Automatic Transfer Provider)1927 (Given - Provider: Taryn Miranda RN) 0650 (Given - Provider: Taryn Miranda RN)2124 (Given - Provider: Taryn Miranda RN) 0620 (Given - Provider: Taryn Miranda RN) vancomycin in NS (Vancocin) IVPB 1,500 mg (COMPLETED) 1,500 mg, Intravenous, Once, 1 dose, On Mon01/20/25 at 1200, at 166.7 mL/hr, Routine 1400 (New Bag - Provider: Alem Witt RN) PRN Medication Order 01/20/2025 01/21/2025 01/22/2025 bisacodyl (Dulcolax) suppository 10 mg 10 mg, Rectal, Daily PRN, Starting on Sneha 01/16/25 at 0750, Until Mon01/22/25 at 1922, Routine, constipation, if no bowel movement for 72 hours and no response to magnesium hydroxide 0924 (OCT Hold - Provider: Automatic Transfer Provider - Reason: Patient in procedure)121 (OCT Unhold - Provider: Automatic Transfer Provider) HYDROmorphone (Dilaudid) injection 0.5 mg (CANCELED) 0.5 mg, Intravenous, Every 10 min PRN, 2 doses, Starting on 01/20/25 at 1047, Until Mon01/20/25 at 1217, Routine, Recovery (Phase I only), pain score of 9-10 out of 10 1136 (Given - Provider: Nanda Salas, SHEREEN) ibuprofen tablet 400 mg 400 mg, Oral, Every 4 hours PRN, Starting on Sneha 01/16/25 at 0753, Until Mon01/22/25 at 1922, Routine, mild pain 0411 (Given - Provider: Taryn Miranda RN)09 ([facility] Hold - Provider: Automatic Transfer Provider - Reason: Patient in procedure)1216 ([facility] Unhold - Provider: Automatic Transfer Provider)163 (Not Given - Provider: Alem Witt RN - Reason: Patient/family refused)2002 (Given - Provider: Taryn Miranda RN) 431 (Given - Provider: Taryn Miranda, RN)2107 (Given - Provider: Taryn Miranda RN) magnesium hydroxide (Milk of Magnesia) 400 MG/5ML suspension 30 mL 30 mL, Oral, Daily PRN, Starting on Sneha 01/16/25 at 0750, Until Mon01/22/25 at 1922, Routine, constipation, if no bowel movement for 48 hours 923 ([facility] Hold - Provider: Automatic Transfer Provider - Reason: Patient in procedure)1216 ([facility] Unhold - Provider: Automatic Transfer Provider) naloxone (Narcan) injection 0.08 mg 0.08 mg, Intravenous, As needed, Starting on Sneha 01/16/25 at 0753, Until Mon01/22/25 at 1922, Routine, respiratory depression, every 2 minutes 09 ([facility] Hold - Provider: Automatic Transfer Provider - Reason: Patient in procedure)1216 ([facility] Unhold - Provider: Automatic Transfer Provider) ondansetron (Zofran) injection 4 mg (COMPLETED) 4 mg, Intravenous, Once as needed, 1 dose, Starting on 01/20/25 at 1047, Until Mon01/20/25 at 1142, Routine, Recovery (Phase I only), nausea, vomiting 114 (Given - Provider: Nanda Salas RN) ondansetron ODT (Zofran-ODT) disintegrating tablet 4 mg 4 mg, Oral, Every 6 hours PRN, Starting on Sneha 01/16/25 at 0753, Until Mon01/22/25 at 1922, Routine, nausea, vomiting 09 ([facility] Hold - Provider: Automatic Transfer Provider - Reason: Patient in procedure)1216 ([facility] Unhold - Provider: Automatic Transfer Provider) oxyCODONE [...] Starting on Sneha 01/16/25 at 0753, Until 01/21/25 at 0847, Routine, moderate pain 0004 (Given [...] Oral, Every 6 hours PRN, Starting on 01/21/25 at 0847, Until Mon01/22/25 at 1922, Routine, severe pain 0903 (Given - Provider: Katalina Martinez, SHEREEN)1857 (Given - Provider: Katalina Martinez, SHEREEN)2320 (Given - Provider: Taryn Miranda RN) 0501 [...] procedure)1217 (MAR Unhold - Provider: Automatic Transfer Provider) 0926 [...] And Saline lock IV (CANCELED) Once, On Mon01/16/25 at 0751, For 1 occurrence And sodium chloride 0.9 % flush 10 mLJump to med 10 mL, Intravenous, Every 12 hours, First dose on Mon01/16/25 at 0755, Until Discontinued, Routine And sodium chloride 0.9 % flush 10 mLJump to med 10 mL, Intravenous, As needed, Starting on Mon01/16/25 at 0750, Until Mon01/22/25 [...] documented as of this encounter Care Teams Truck Guard Relationship Specialty Start Date End Date Renetta Pardo, SPA MANAGER [address] [place] [address] [place] [address] PCP - General 09/09/23 02/16/25 documented as of this encounter
--- OUTSIDE RECORDS SUMMARY | 2025-01-18 09:01 | XMS_ITS | Encounter Summary ---
Author Organization Healthcare Address [address] [place] [address] Care Team Providers Care Color Consultant Name Role Phone Renetta Pardo APRN Primary Care Provider [phone] Reason for Visit * Reason Comments Post-op Problem * Auth/Cert (Routine) Specialty Diagnoses / Procedures Referred By Adalid t Referred To Contact Diagnoses Acute postoperative pain Cellulitis of leg, left Cellulitis of left lower extremity Sepsis following procedure, initial encounter ([facility]) recent LLE surgery @ now with cellulitis Sachin Garza MD [address] [address] Phone: tel: fax: PAV H Inpatient [address] [place] [address] Phone: tel: Referral ID Status Reason Start Date Expiration Date Visits Re quested Visits Authorized [id number] 1 1 Encounter Details Date Type Department Care Team (Late st Contact Info) Description 01/18/2025 9:01 AM EDT - 01/18/2025 11:06 AM EDT Surgery P[facility] A OPERATING ROOM [address] [place] [id number] Ye Navarro MD [address] [address] INCISION AND DRAINAGE, LOWER EXTREMITY [...] any time in the past 12 m [facility], were you homeless or living in [...] drink first t traci in the morning (EYE-HEADER MACHINE OPERATOR) to steady your nerves or to get rid of a hangover? 0 09/10/2023 CAGE Questionnaire Score 0 024 Utilities Answer Date Recorded In the past 12 months has th e [employer] [facility], gas, oil, or water company threatened to [...] from the original note were not included. [address]506 Flushing Your PICC Line at Home Your [...] soap and water, use an alcohol-based hand electric organ assembler and checker. The gel should have at least 60% [...] PICC. Last Reviewed Date: 2024 00:00:00 ?? 4977-5803 [employer]. All rights reserved. This information is not intended as a substitute for professional medical care. Always follow your healthcare professional's instructions. * [facility] - Leigh Rg RN - 01/22/2025 4:21 PM EDT Images from the original note were not included. 48367 Discharge Instructions: Changing the Dressing on Your [...] damage Last Reviewed Date: 2024 00:00:00 ?? 0093-6151 [employer]. All rights reserved. This information is not [...] the video go to this web address: [email or web address] Or, scan this QR code with your smart phone ?? [facility] * Leigh Muller RN - 01/22/2025 4:20 PM EDT Images from the original note were not included. 72677 Understanding Post Sepsis Syndrome (PSS) Sepsis is [...] infections Last Reviewed Date: 2022 00:00:00 ?? 4944-1103 [employer]. All rights reserved. This information is not intended as a substitute for professional medical care. Always follow your healthcare professional's instructions. * Rosaura [facility] - Leigh Rg RN - 01/22/2025 4:20 PM EDT Images from the original note were not included. [id number] Buckle (Torus) Fracture of a Leg Your [...] wet, you can dry it with a social sciences department chair on the cool setting. ? [...] doctor Last Reviewed Date: 2024 00:00:00 ?? 1805-8345 [employer]. All rights reserved. This information is not intended as a substitute for professional medical care. Always follow your healthcare professional's instructions. * Rosaura [facility] - Leigh Rg RN - 01/22/2025 4:20 PM EDT Images from the original note were not included. 89542 Discharge Instructions for Cellulitis You have been [...] are in pain. Ask what kind of lrtb-gjs-hdzzuox medicine you can take for pain. ? [...] Vomiting. Last Reviewed Date: 2024 00:00:00 ?? 8556-6321 [employer]. All rights reserved. This information is not intended as a substitute for professional medical care. Always follow your healthcare professional's instructions. * Discharge Summary - Mauricio Mondragon MD - 01/22/2025 4:16 PM EDT Hospitalization Admit Date/Time: 01/15/2025 9:32 PM Admitting Attending: Sachin Garza Discharge Date: 01/22/25 Discharge Attending Physician: Sachin Garza MD PCP name and Address: Renetta Pardo, CHILD DEVELOPMENT INSTRUCTOR [address] [place] [address] [address] / [facility] [address] Referring provider name and address: Maldonado Luciano PA [address] [place] [address] [place] [address] Chief Concern, Brief History of Present Illness, and Hospital Course Patient arrived to [facility] on 01/15/25 with concern for surgical site [...] Your Medications These medications were sent to [facility], [place] - [address] [place], [facility] [address] DAPTOmycin injection These medications were sent to [facility] - [place], [place] - [address] [facility] [address] oxyCODONE 5 MG immediate release capsule Discharge Diagnosis Medical Problems Active and Resolved Hospital Problems Hospital Closed fracture of left tibial plateau Overview Addendum 09/16/2023 1:42 PM by Rolanda Adams APRN, KALYANI ORT consulted TROM in place WB per ORT 09/15: ORIF L tibial plateau fx Follow up with Dr. Nava on 10/04 * (Principal) Cellulitis of leg, left Sepsis following procedure ([facility]) Cellulitis of left lower extremity [...] Time Provider Department Center 01/27/2025 11:00 AM [facility] ORTHOPAEDICS SUIT ATTENDANT [facility] 02/03/2025 8:10 AM Lawrence Hayes MD [facility] 02/11/2025 1:00 PM Ary Santiago APRN [facility] [place] 03/03/2025 1:00 PM Ary Santiago APRN IDBCCLX [...] General: Spoke with: Patient, Family, and Bedside tag press operator and Interventions: Assessed: Dressing Dressing Interventions: [...] please contact the Orthopedic Transition Nurse at [phone] Monday through Monday 8:00 am to 2:30 pm. If you feel your concern is a medical emergency please call 911 immediately * Progress Notes - Papa, Anna L, RN - 01/22/2025 9:28 AM EDT Case Management Discharge Note Ravin Ribeiro 34 y.o. male CSN: [id number] Admission: 01/15/2025 9:32 PM Primary Problem: Cellulitis of leg, left Primary Ship'S Carpenter: Primary Caregiver: Self Assistance Available at Discharge: Current Outpatient/Agency/Support Group: DME Availability of Care Givers (#Hours): 24 hours Family/Ship'S Carpenter(s) Willingness Assessed to care for patient at home: Yes Family/Ship'S Carpenter(s) Readiness Assessed to care for patient at [...] Community Agency(s): Patient's Choice of Community Agency(s): [facility] Patient/Family Anticipated Services at Transition: [...] Pt will follow up at [facility] for weekly PICC care and labs. First appointment is scheduled for 01/27 at 11 AM. Pt's family will be able to provide assistance and transportation. [employer] will complete teaching today and deliver IV ABX to bedside around 3 PM. Pt and S/O is aware and agreeable to discharge POC. [facility] [phone] [phone] Anna Elam RN * Progress Notes - [...] required Ayden Canseco MD PGY-1, Orthopaedic Surgery [facility] Orthopaedic Trauma Service Pager: [phone] Orthopaedic Recon/Spine/Foot and Ankle Service Pager: [phone] Cosigned by Lawrence Hayes MD at 01/22/2025 [...] required Red Mondragon MD Orthopaedic Surgery PGY-1 [facility] Orthopaedic Trauma Service Pager: [phone] Orthopaedic Recon/Spine/Foot and Ankle Service Pager: [phone] Personal Pager: [phone] Cosigned by Lawrence Hayes MD at 01/22/2025 1:06 PM EDT * Procedures - Norma Miranda RN - 01/21/2025 7:01 PM EDTAssociated Order(s): Insert PICC line Insert PICC line Date/Time: 01/21/2025 7:01 PM Performed by: Norma Miranda RN Authorized by: Sachin Garza MD [place] Protocol: Verbal consent obtained?: Yes Written consent [...] preference Patient position: Supine Catheter Lot #: [id number] Catheter superintendent marine: OYE! PowerPICC Solo Catheter placed: Single lumen Catheter [...] 01/21/2025 3:28 PM EDT Referrals sent to [facility] and for HH for possible home IV antibiotic infusion. There was no accepting companies in patient's area. CM spoke with patient and he is agreeable to either go to his local hospital [facility] or come to [facility] in [place] for his weekly PICC care/labs if needed. * Nursing Note - Camden Vital RN - 01/21/2025 1:45 PM EDT Orthopedic Transition Nurse Note General: Spoke with: Patient, Family, and Bedside tag press operator and Interventions: Assessed: Dressing Dressing Interventions: [...] please contact the Orthopedic Transition Nurse at [phone] Monday through Monday 8:00 am to 2:30 pm. If you feel your concern is a medical emergency please call 911 immediately * Steff Odell RN - 01/21/2025 11:57 AM EDT Images from the original note were not included. [id number] PICC Line Care PICC stands for peripherally [...] arm Last Reviewed Date: 2024 00:00:00 ?? 9620-8852 [employer]. All rights reserved. This information is not intended as a substitute for professional medical care. Always follow your healthcare professional's instructions. * Steff Odell RN - 01/21/2025 11:56 AM EDT Images from the original note were not included. 604[address] * Steff Odell RN - 01/21/2025 11:56 AM EDT Images from the original note were not included. [address]1030 * Steff Odell RN - 01/21/2025 11:56 [...] your house or a medical facility. The heel caser/social work nurse will setthat up based on your insurance. [...] or during weekends/[place] holidays, call the paging seed cleaner operator at . Ask for the infectious disease fellow consumer loan processor. Call the clinic if you have any of these: ? Fevers greater than 100.5??F ? An allergic reaction, such as rash ? Nausea, vomiting, or diarrhea ? New or returning redness near the IV line ? Redness, pain, swelling, or pus around the IV line * Rosaura Paz, Steff Soares RN - 01/21/2025 11:56 AM EDT Images from the original note were not included. 26982 Flushing Your PICC Line at Home Your [...] soap and water, use an alcohol-based hand electric organ assembler and checker. The gel should have at least 60% [...] PICC. Last Reviewed Date: 2024 00:00:00 ?? 3162-5119 [employer]. All rights reserved. This information is not intended as a substitute for professional medical care. Always follow your healthcare professional's instructions. * Rosaura [facility] - Steff Paz RN - 01/21/2025 11:56 AM EDT Images from the original note were not included. [id number] Daptomycin Injection Brand Name(s): Cubicin??, Cubicin RF??; [...] be awakened, immediately call emergency services at 259. What OTHER INFORMATION should I know? Keep [...] of all of the prescription and nonprescription (jkuz-njg-ziyiyvz) medicines you are taking, as well as [...] or pharmacist about specific clinical use. The [place] [employer] represents that the information provided hereunder was formulated with a reasonable standard of care, and in conformity with professional standards in the field. The [place] [employer] makes no representations or warranties, express or implied, including, but not limited to, any implied warranty of merchantability and/or fitness for a particular purpose, with respect to such information and specifically disclaims all such warranties. Users are advised that decisions regarding drug therapy are complex medical decisions requiring the independent, informed decision of an appropriate health manager managed care, and the information is provided for informational purposes only. The entire monograph for a drug should be reviewed for a thorough understanding of the drug's actions, uses and side effects. The [place] [employer] does not endorse or recommend the use of any drug.The information is not a substitute for medical care. AHFS?? Patient Medication Information?. ?? Copyright, 2023. The [place] [employer]-System Pharmacists??, [address], [address], [place], [place]. All Rights Reserved. Duplication for commercial use must be authorized by [facility]. Selected Revisions: July 28, 2019. AHFS?? Patient Medication Information?. ?? Copyright, 2024 * [facility] - Steff Paz RN - 01/21/2025 11:56 AM EDT Images from the original note were not included. [address]448 Discharge Instructions: Caring for Your Peripherally Inserted [...] damage. Last Reviewed Date: 2024 00:00:00 ?? 7831-7510 [employer]. All rights reserved. This information is not intended as a substitute for professional medical care. Always follow your healthcare professional's instructions. * Rosaura [facility] - Steff Paz RN - 01/21/2025 11:56 AM EDT Images from the original note were not included. 61508 Central Line Infections You need a central [...] water. Or they use an alcohol-based hand electric organ assembler and checker containing at least 60% alcohol. ? Using [...] (warm or cold), and use alcohol-based hand electric organ assembler and checker with at least 60% alcohol as directed. To clean your hands well,follow the guidelines on this sheet. Visitors should wash their hands well when they arrive and when they leave. ? Make sure healthcare staff and your visitors clean their hands. They should use soap and clean, running water or an alcohol-based hand electric organ assembler and checker before and after checking the line. Don?t [...] good choice for cleaning your hands. The electric organ assembler and checker should have at least 60% alcohol. Note that some germs can't be killed by alcohol. Your healthcare team can answer any questions you have about when to use a hand electric organ assembler and checker, or when it?s better to wash with soap and water. Follow these steps: ? Spread the hand electric organ assembler and checker in the palm of one hand. (Check the package for specific guidelines.) ? Rub your hands together briskly. Clean the backs of your hands, the palms, between your fingers, and up your wrists. ? Rub until the electric organ assembler and checker is gone and your hands are completely [...] skin Last Reviewed Date: 2023 00:00:00 ?? 5873-4050 [employer]. All rights reserved. This information is not [...] Lumen PICC Patient Specific Outpatient Circumstances: [address] [place], [place] [address] [address] Family Support: Extended Emergency Contact Information Primary Emergency Contact: Hayley Buenrostro Address: [address] [place] [address] [place] Relation: Significant Other Preferred language: Cape Verdean Sales Service Route Manager needed? No Secondary Emergency Contact: Jenny Buenrostro Address: [address] [place] [address] [place] Relation: Mother Contact information: Ravin Ribeiro [phone] (home) Outpatient services (including home infusion, home health, facility referral: See recent [facility] case management/social work note for finalization of services ID follow up appointment: Future Appointments Date Time Provider Department Center 02/03/2025 8:10 AM Lawrence Hayes MD [facility] 02/11/2025 1:00 PM Ary Santiago APRN IDBCCLX [...] via secure chat or staff messaging in [employer]. Patient and family will need to be educated by the infusion company before being discharged home. This note is not the final recommendation from the infectious diseases team, please refer to the mostrecent note for this information. Steff Paz, RN 01/21/2025 * Progress Notes - Michelle [...] days prior to presentation. He presented to [facility] wherehe was febrile to 101.3F. [...] PA-C Division of Infectious Diseases Available on [employer] Chat History, assessment, and plan discussed with [...] labs to: ID OPAT Team Fax #: [phone] Appointments: Ary Santiago APRN on 02/11 at 1PM and 03/03 at 1PM [facility]: [address] [place] [address] (Select Option 3 for IV Antibiotic / PICC line related issues) For questions regarding OPAT prior to discharge, reach out to the OPAT team via [employer] Secure Chat (Group: OPAT Referral Team). For all questions regarding OPAT after discharge should be directed to the OPAT Team at (Select Option 3 for IV Antibiotics/PICC Issues) between 8am-5pm. After 5 pm, or during weekends/[place] holidays, please call the paging seed cleaner operator at to reach the on-call ID [...] at 01/18/25 1133 [2] Allergies Allergen Reactions Meddybemps Hives * Consults - Delma Ortiz - 01/21/2025 10:00 AM EDT Pastoral Care Note: Patient was appreciative of clerical aide's visit and expressed gratitude to the care team. he said family is on their way to him. Referral From: Machine Container Washer Initiated Pastoral Care Provided For: Patient Patient Profile: Spiritual Assessment: Support Systems/ Spiritual Resources: Treasure, Sense of Peace, Trust, Gratitude Spiritual Needs: Emotional support, Spiritual ritual Spiritual Issues: Discharge Interventions: Pastoral Care Outcomes: Patient Outcomes: Appreciative of Machine Container Washer Support, Expresses acceptance, Gratitude Cosigned by Macrina Dumont at 01/21/2025 6:24 PM EDT Associated attestation - Macrina Dumont - 01/21/2025 6:24 PM EDT This is to attest clerical aide business intern chart note has been reviewed and [...] to ambulate in room/hallway with family and executive staff assistant while remains inpatient. Patient demonstrates no further [...] Prevent or Manage Infection Flowsheets (Taken 01/20/2025 8714) Infection Management: aseptic technique maintained Fever Reduction/Comfort [...] Agree with above assessment and evaluation from resident/TEST MAN. * Progress Notes - Anna Elam RN - 01/20/2025 10:48 AM EDT Case Management Adult Progress Note Ravin Ribeiro 34 y.o. male CSN: [id number] Admission: 01/15/2025 9:32 PM Primary Problem: Cellulitis of leg, left Anticipated Discharge Date: TBD Pt to OR today for repeat I&D on left knee. Pt has worsening NORMAN and team wants to repeat AM labs. Final ID recs and OPAT eval are pending. [facility]. Pt's medicaid may be a potential barrier to HH. CM will continue to assist with discharge POC. Anna Elam RN * Op Note - Bob Nava MD - 01/20/2025 10:26 AM EDT Operative Note Date: 01/20/25 Location: [facility] Name: Ravin Ribeiro, : 1990, Diagnoses: Pre-op Diagnosis Closed fracture of left tibial plateau with routine healing, subsequent encounter Left proximal tibia (knee region) deep abscess Post-op Diagnosis Closed fracture of left tibial plateau with routine healing, subsequent encounter Left proximal tibia (knee region) deep abscess Procedure(s): Incision and drainage of left knee deep abscess Attending Surgeon(s): * Bob Nava - Primary Machine Leather Trimmer(s): * Emely Giron MD - Resident - [...] days prior to presentation. He presented to [facility] wherehe was febrile to 101.3F. [...] tibial plateau fx X 2 s/p ORIF (2/2/24, 01/01/25) History of proximal left femur fx [...] PA-C Division of Infectious Diseases Available on [employer] Chat History, assessment, and plan discussed with [...] Gustavo Hightower MD [2] Allergies Allergen Reactions Meddybemps Hives * Consults - Ricco Howard RN [...] required Ayden Canseco MD PGY-1, Orthopaedic Surgery [facility] Orthopaedic Trauma Service Pager: [phone] Orthopaedic Recon/Spine/Foot and Ankle Service Pager: [phone] Cosigned by Sachin Garza MD at 01/20/2025 [...] Course 1. Sepsis following procedure, initial encounter ([facility]) 2. Cellulitis of left lower [...] admission Level of Mobility: Ambulatory- community Mobility Bent: Independent gait without device (intermittne use of [...] Mobility Bed Mobility Exam: Scooting/Bridging Level of Bent: Independent Bed Mobility Exam: Supine to Sit Level of Bent: Independent Transfers Transfer Exam: Sit to stand Level of Bent: Stand-by assist Physical/Nonphysical Assist: Verbal Cues Assistive Device: Walker, rolling Transfer Exam: Stand to Sit Level of Bent: Stand-by assist Physical/Nonphysical Assist: Verbal Cues Assistive Device: Walker, rolling Toilet Transfer Level of Bent: Stand-by assist Physical/Nonphysical Assist: Verbal Cues Type of Transfer: Ambulation, To toilet Assistive Device: Walker, rolling, Grab bar Functional Mobility Device: Rolling walker Assistance: Standby assist <Household distance, cuing for safety, pacing activity, RW management, and encouraged L LE WBAT-as permitted per chart (pt reports being used to NWB for pain management SOFTWARE TESTER) Balance Postural Appearance Posture: Within Functional Limits [...] admission Level of Mobility: Ambulatory- community Mobility Bent: Independent gait without device (intermittne use of [...] Mobility Bed Mobility Exam: Scooting/Bridging Level of Bent: Independent Bed Mobility Exam: Supine to Sit Level of Bent: Independent Transfers Transfer Exam: Sit to stand Level of Bent: Stand-by assist Physical/Nonphysical Assist: Verbal Cues Assistive Device: Walker, rolling Transfer Exam: Stand to Sit Level of Bent: Stand-by assist Physical/Nonphysical Assist: Verbal Cues Assistive [...] 3-5 steps with a railing?: A little [facility] 6-Clicks Mobility Assessment Total : 23 [...] Vanc/Zosyn, OR Cx: PMN (01/19) Edited by: aMuricio Mondragon MD at 01/19/2025 0801 - DVT [...] required Red Mondragon MD Orthopaedic Surgery PGY-1 [facility] Orthopaedic Trauma Service Pager: [phone] Orthopaedic Recon/Spine/Foot and Ankle Service Pager: [phone] Personal Pager: [phone] Cosigned by Ye Navarro MD at 01/21/2025 [...] Attending Surgeon(s): * Ye Navarro - Primary Machine Leather Trimmer(s): * Harvey Swift MD - Resident - 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 tag press operator and Interventions: Assessed: Wound 01/01/25 Surgical Open Surgical Incision Pretibial Left;Proximal (Active) Wound Assessment Red 01/15/252149 Margins Well-defined edges;Attached edges 01/15/252149 Janeth-Wound Assessment [...] please contact the Orthopedic Transition Nurse at [phone] Monday through Monday 8:00 am to 2:30 [...] ] Family [ ] Friend [ ] Sales Service Route Manager [X] Medical records HISTORY OF PRESENT [...] medial pretibial incision so he presented to [facility] for evaluation. He was febrile [...] on day of presentation. He lives in [place] with his , CONSTANZA, and 2 young [...] days prior to presentation. He presented to [facility] wherehe was febrile to 101.3F. [...] PA-C Division of Infectious Diseases Available on [employer] Chat History, assessment, and plan discussed with ID attending, Dr. Azucena Collado The following complex inpatient infectious disease services were performed today: Complex antimicrobial therapy counseling and treatment [1] History reviewed. No pertinent past medical history. [2] Past Surgical History: Procedure Laterality Date LEG SURGERY Left [3] Allergies Allergen Reactions Meddybemps Hives [4] Current Facility-Administered Medications Medication Dose Route Frequency Provider Last Rate Last Admin acetaminophen (Tylenol) tablet 1,000 mg 1,000 mg Oral q6h [facility] Tyrone Howard MD 1,000 mg at [...] Note Ravin Ribeiro 34 y.o. male CSN: [id number] Admission: 01/15/2025 9:32 PM Primary Problem: Cellulitis of leg, left Trading Specialist reviewed chart and spoke with patient to complete this Initial Case Management Assessment. PCP: Renetta Pardo APRN Emergency Contact: Extended Emergency Contact Information Primary Emergency Contact: Hayley Buenrostro Address: [address] [place] [address] Mobile Relation: Significant Other Preferred language: Cape Verdean Sales Service Route Manager needed? No Secondary Emergency Contact: Jenny Buenrostro Address: [address] [place] [address] Mobile Relation: Mother Insurance: Primary Visit Coverage Payer Plan Sponsor Code Group Number Group Name PAS[employer] MEDICAID MOLINA PASSPORT MOLINA MEDICAID Primary Visit Coverage Subscriber Subscriber ID Subscriber Name Subscriber N Subscriber Address [id number] RAVIN RIBEIRO [id number] [place] [address] Patient information: Primary Caregiver: Self Support System: Immediate family Daily Living Activities: Functional Status: Independent Living Arrangements: Spouse/Significant other, Family Type of Residence: Private residence, Single Level [address] [place] [address] Current DME: Equipment Currently Used at Home: [...] Outpatient Dialysis Services: Living Will/Advance Directive/Power of Supervisor [place] [employer] /Guardian: Have you reviewed your Advance Directive [...] Pt states he lives at home in [place] with his , CONSTANZA, and two small children. Pt states his and CONSTANZA can provide assistance and transportation to f/u appointments. Pt has all necessary DME from previous hospitalization. CM will continue to follow. Kinabrittany Benitez * Consults - Teri Lao - 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 tag press operator and Interventions: Assessed: Wound 01/01/25 Surgical Open Surgical Incision Pretibial Left;Proximal (Active) Wound Assessment Red 01/15/25 2150 Margins Well-defined edges;Attached edges 01/15/25 2150 Janeth-Wound Assessment Red 01/15/25 2150 Closure Martha 01/15/250 Wound 01/01/25 Face Left;Upper (Active) Education: Education [...] please contact the Orthopedic Transition Nurse at [phone] Monday through Monday 8:00 am to 2:30 [...] tibial pulse, cap refill <2 sec, digits [facility] Orthopedic Surgery Tertiary Exam Completed 01/16/25 [...] exams. Mitch Giron MD PGY-3, Orthopaedic Surgery [facility] Orthopaedic Trauma Service Pager: [phone] Orthopaedic Recon/Spine/Foot and Ankle Service Pager: [phone] Cosigned by Sachin Garza MD at 01/18/2025 [...] please contact the Orthopedic Transition Nurse at [phone] Monday through Monday 8:00 am to 2:30 [...] broad spectrum IV abx Serial examinations WRadha Hwoard MD PGY-2, Orthopaedic Surgery [facility] Cosigned by Sachin Garza MD at [...] fracture WRadha Howard MD PGY-2, Orthopaedic Surgery [facility] Orthopaedic Trauma Service Pager: [phone] Orthopaedic Recon/Spine/Foot and Ankle Service Pager: [phone] [1] History reviewed. No pertinent past medical [...] 25 tablet 0 [4] Allergies Allergen Reactions Meddybemps Hives Cosigned by Sachin Garza MD at [...] Trauma * ED Provider Notes - Gus Vigil, YUN - 01/15/2025 9:21 PM EDT Images from [...] with Ortho Acknowledged TYRONE HOWARD Miguel 01/15/25 2225 ECG Adult Once Comments: Preop Clearance Preliminary result TYRONE HOWARD Miguel 01/15/25 222 XR Chest 1 View One time imaging Comments: Preop Clearance Final result TYRONE HOWARD Miguel 01/15/25 222 Type and Screen Once [...] venous STAT Final result GUS VIGIL P 01/15/25 213 C-Reactive protein STAT Final result GUS VIGIL P 01/15/25 213 Sed rate, automated STAT Final result GUS VIGIL P 01/15/252133 Blood Culture (Aerobic/Anaerobet Set) STAT Preliminary result GUS IVGIL P 01/15/252133 Blood Culture (Aerobic/Anaerobet Set) STAT Preliminary result GUS VIGIL P 01/15/252133 Saline lock IV Once Acknowledged GUS VIGIL P 01/15/252133 CBC w/diff STAT Final result GUS VIGIL P 01/15/252133 PT-INR STAT Final result GUS VIGIL P 01/15/25 213 CMP STAT Final result GUS VIGIL Assessment: Clinical Impressions as of 01/16/25 0657 Sepsis following procedure, initial encounter ([facility]) Cellulitis of left lower extremity [...] diagnosis was Sepsis following procedure, initial encounter ([facility]). Diagnoses of Cellulitis of left [...] Drug use: Never [5] Allergies Allergen Reactions Meddybemps Hives Gus Vigil APRN 01/16/25 0657 Cosigned [...] 01/16/25 0733 Sepsis following procedure, initial encounter ([facility]) Cellulitis of left lower extremity Acute postoperative pain Ultimately, this patient Was admitted (Admission) The primary encounter diagnosis was Sepsis following procedure, initial encounter ([facility]). Diagnoses of Cellulitis of left [...] Hospital Encounter [facility] [address] [place] [address] Lawrence Hayes MD [address] [facility] [address] [place] [address] 02/21/2025 12:20 PM EDT - 02/21/2025 2:15 PM EDT Surgery [facility] [address] [place] [address] Lawrence Hayes MD [address] [facility] [address] [place] [address] INCISION AND DRAINAGE, LOWER EXTREMITY [13855 (CPT )] 03/03/2025 1:00 PM EDT Office Visit [facility] [address] [place] [address] Ary Santiago, CHILD DEVELOPMENT INSTRUCTOR [address] [facility] [address] [place] [address] 2025 7:50 AM EDT Office Visit [facility] Orthopaedic Surgery & Sports Medicine [address] [place] [address] Stella Brown, CHILD DEVELOPMENT INSTRUCTOR [address] [facility] [address] [place] [address] Pending Results Name Type Priority [...] 44.4(H) <=8.0 mg/L 01/22/2025 9:25 AM EDT [facility] Blood Venous blood specimen / Unknown Venipuncture / Unknown 01/22/2025 5:04 AM EDT 01/22/2025 5:31 AM EDT Narrative [facility] - 01/22/2025 9:25 AM EDT This CRP test is appropriate for assessment of infection, systemic inflammation and/or tissue injury. To assess cardiovascular disease risk order high sensitivity CRP (CRPH). us Michelle ZULUAGA LAB BLOOD ORDERABLES Final Res ult Performing Organization Address City/[facility]/ZIP Co de Phone Number [facility] [address] [place] [address] * Lavender Top (01/22/2025 5:04 AM EDT) Extra Hold for add-ons 01/22/2025 8:02 AM EDT [facility] Comment:Auto resulted. Blood Venous blood specimen / Unknown 01/22/2025 5:04 AM EDT 01/22/2025 5:30 AM EDT us Sachin Garza MD LAB BLOOD ORDERABLES Final R esult Performing Organization Address [facility] Co de Phone Number [facility] [address] [place] [address] * (ABNORMAL) Basic metabolic panel (01/22/2025 5:04 AM EDT) Glucose, Plasma 91 74 - 99 mg/dL 01/22/2025 6:01 AM EDT [facility] BUN, Plasma 33(H) 7 - 21 mg/dL 01/22/2025 6:01 AM EDT [facility] Creatinine, Plasma 1.47(H) 0.70 - 1.20 mg/dL 01/22/2025 6:01 AM EDT [facility] BUN/Creatinine Ratio 22 01/22/2025 6:01 AM EDT [facility] Sodium, Plasma 137 136 - 145 mmol/L 01/22/2025 6:01 AM EDT [facility] Potassium, Plasma 5.3(H) 3.6 - 4.9 mmol/L 01/22/2025 6:01 AM EDT [facility] Chloride, Plasma 100 97 - 107 mmol/L 01/22/2025 6:01 AM EDT [facility] CO2, Plasma 28 22 - 29 mmol/L 01/22/2025 6:01 AM EDT [facility] Anion Gap 9 6 - 16 mmol/L 01/22/2025 6:01 AM EDT [facility] Total Calcium, Plasma 9.6 8.9 - 10.2 mg/dL 01/22/2025 6:01 AM EDT [facility] eGFRcr 63.4 mL/min/1.7 3m*2 01/22/2025 6:01 AM EDT [facility] Comment:Reported eGFRcr in m L/min/1.73m2 is based the CKD-EPI 2020 equation that does not use a race coefficient. Blood Venous blood specimen / Unknown Venipuncture / Unknown 01/22/2025 5:04 AM EDT 01/22/2025 5:31 AM EDT us Sachin Garza MD LAB BLOOD ORDERABLES Final R esult [facility] [address] [place] [address] * (ABNORMAL) CBC (01/21/2025 7:29 PM EDT) WBC Count 10.10 3.70 - 10.30 10*3/uL LAB HEMATOLOGY METHOD 01/21/2025 7:42 PM EDT [facility] RBC Count 3.82(L) 4.60 - 6.10 10*6/uL LAB HEMATOLOGY METHOD 01/21/2025 7:42 PM EDT [facility] HGB 11.5(L) 13.7 - 17.5 g/dL LAB HEMATOLOGY METHOD 01/21/2025 7:42 PM EDT [facility] HCT 35.2(L) 40.0 - 51.0 % LAB HEMATOLOGY METHOD 01/21/2025 7:42 PM EDT [facility] Platelet Count 446(H) 155 - 369 10*3/uL LAB HEMATOLOGY METHOD 01/21/2025 7:42 PM EDT [facility] MCV 92 79 - 98 fL LAB HEMATOLOGY METHOD 01/21/2025 7:42 PM EDT [facility] MCH 30.1 26.0 - 32.0 pg LAB HEMATOLOGY METHOD 01/21/2025 7:42 PM EDT [facility] MCHC 32.7 30.7 - 35.5 g/dL LAB HEMATOLOGY METHOD 01/21/2025 7:42 PM EDT [facility] RDW 13.1 11.5 - 14.5 % LAB HEMATOLOGY METHOD 01/21/2025 7:42 PM EDT [facility] MPV 9.1 8.8 - 12.5 fL LAB HEMATOLOGY METHOD 01/21/2025 7:42 PM EDT [facility] nRBC 0.0 <=0.0 per 100 WBCs LAB HEMATOLOGY METHOD 01/21/2025 7:42 PM EDT [facility] Blood Venous blood specimen / Unknown Venipuncture / Unknown 01/21/2025 7:29 PM EDT 01/21/2025 7:35 PM EDT us Sachin Garza MD LAB BLOOD ORDERABLES Final R esult [facility] [address] [place] [address] * (ABNORMAL) Basic metabolic panel (01/21/2025 7:29 PM EDT) Glucose, Plasma 122(H) 74 - 99 mg/dL 01/21/2025 8:03 PM EDT [facility] BUN, Plasma 31(H) 7 - 21 mg/dL 01/21/2025 8:03 PM EDT [facility] Creatinine, Plasma 1.64(H) 0.70 - 1.20 mg/dL 01/21/2025 8:03 PM EDT [facility] BUN/Creatinine Ratio 19 01/21/2025 8:03 PM EDT [facility] Sodium, Plasma 139 136 - 145 mmol/L 01/21/2025 8:03 PM EDT [facility] Potassium, Plasma 4.6 3.6 - 4.9 mmol/L 01/21/2025 8:03 PM EDT [facility] Chloride, Plasma 101 97 - 107 mmol/L 01/21/2025 8:03 PM EDT [facility] CO2, Plasma 26 22 - 29 mmol/L 01/21/2025 8:03 PM EDT [facility] Anion Gap 12 6 - 16 mmol/L 01/21/2025 8:03 PM EDT [facility] Total Calcium, Plasma 9.1 8.9 - 10.2 mg/dL 01/21/2025 8:03 PM EDT [facility] eGFRcr 55.6 mL/min/1.7 3m*2 01/21/2025 8:03 PM EDT [facility] Comment:Reported eGFRcr in m L/min/1.73m2 is based the CKD-EPI 2020 equation that does not use a race coefficient. Blood Venous blood specimen / Unknown Venipuncture / Unknown 01/21/2025 7:29 PM EDT 01/21/2025 7:35 PM EDT us Sachin Garza MD LAB BLOOD ORDERABLES Final R esult [facility] [address] [place] [address] * PICC SINGLE LUMEN (SMARTFORM LINK) (01/21/2025 7:01 PM EDT) Narrative Norma Miranda RN - 01/21/2025 7:01 PM EDT Norma Miranda RN 01/21/2025 7:19 PM Insert PICC line Date/Time: 01/21/2025 7:01 PM Performed by: Norma Miranda RN Authorized by: Sachin Garza MD [place] Protocol: Verbal consent obtained?: Yes Written consent [...] preference Patient position: Supine Catheter Lot #: [id number] Catheter superintendent marine: OYE! PowerPICC Solo Catheter placed: Single lumen Catheter [...] at day 4 2024 7:15 AM EDT [facility] Gram Stain Result No polymorphonuclear leukocytes seen 01/25/2025 7:15 AM EDT [facility] Gram Stain Result No organisms seen 01/25/2025 7:15 AM EDT [facility] Swab Structure of left knee region / Unknown 01/20/2025 10:42 AM EDT 01/20/2025 11:25 AM EDT Comment:Pre-op diagnosis: Closed fracture of left tibial plateau with routine healing, subsequent encounter [I43.324M] Bob Nava MD LAB MICROBIOLOGY - GENERAL O RDERABLES Final Result Performing Organization Address City/[facility] Co de Phone Number [facility] [address] [place] [address] * Fungal Culture, Routine (01/20/2025 10:42 AM EDT) Culture No Fungal Growth at 1 Week 01/28/2025 7:34 AM EDT [facility] Swab Structure of left knee region / Unknown 01/20/2025 10:42 AM EDT 01/20/2025 11:25 AM EDT Comment:Pre-op diagnosis: Closed fracture of left tibial plateau with routine healing, subsequent encounter [S82.142D] Bob Nava MD LAB MICROBIOLOGY - GENERAL O RDERABLES Final Result Performing Organization Address [facility] Co de Phone Number [facility] [address] [place] [address] * Anaerobic Culture (01/20/2025 10:42 AM EDT) Culture No growth at day 4 01/28/2025 7:09 AM EDT [facility] Swab Structure of left knee region / Unknown 01/20/2025 10:42 AM EDT 01/20/2025 11:25 AM EDT Comment:Pre-op diagnosis: Closed fracture of left tibial plateau with routine healing, subsequent encounter [S82.142D] us Bob Nava MD LAB MICROBIOLOGY - GENERAL O RDERABLES Final Result Performing Organization Address City/[facility] Co de Phone Number [facility] [address] [place] [address] * Fungal Culture, Tissue and SYDEA (01/20/2025 10:30 AM EDT) Culture Reading Mycological 4 Weeks No Fungal Growth at 4 Weeks 02/18/2025 6:03 AM EDT [facility] SYEDA No fungal elements seen 02/18/2025 6:03 AM EDT [facility] Tissue Structure of left knee region / Unknown 01/20/2025 10:30 AM EDT 01/20/2025 11:23 AM EDT Comment:Pre-op diagnosis: Closed fracture of left tibial plateau with routine healing, subsequent encounter [S82.142D] us Bob Nava MD LAB MICROBIOLOGY - GENERAL O RDERABLES Final Result Performing Organization Address City/[facility]/ZIP Co de Phone Number [facility] [address] [place] [address] * Tissue Culture and Gram Stain (01/20/2025 10:30 AM EDT) Culture No growth at day 4 2024 7:15 AM EDT [facility] Gram Stain Result No polymorphonuclear leukocytes seen 01/25/2025 7:15 AM EDT [facility] Gram Stain Result No organisms seen 01/25/2025 7:15 AM EDT [facility] Tissue Structure of left knee region / Unknown 01/20/2025 10:30 AM EDT 01/20/2025 11:23 AM EDT Comment:Pre-op diagnosis: Closed fracture of left tibial plateau with routine healing, subsequent encounter [S82.142D] us Bob Nava MD LAB MICROBIOLOGY - GENERAL O RDERABLES Final Result Performing Organization Address [facility] Co de Phone Number [facility] [address] [place] [address] * Anaerobic Culture (01/20/2025 10:30 AM EDT) Culture No growth at day 4 01/28/2025 7:09 AM EDT [facility] Tissue Structure of left knee region / Unknown 01/20/2025 10:30 AM EDT 01/20/2025 11:23 AM EDT Comment:Pre-op diagnosis: Closed fracture of left tibial plateau with routine healing, subsequent encounter [S82.142D] us Bob Nava MD LAB MICROBIOLOGY - GENERAL O RDERABLES Final Result Performing Organization Address City/[facility] Co de Phone Number [facility] [address] [place] [address] * Fungal Culture, Tissue and SYEDA (01/20/2025 10:27 AM EDT) Culture Reading Mycological 4 Weeks No Fungal Growth at 4 Weeks 02/18/2025 6:03 AM EDT [facility] SYEDA No fungal elements seen 02/18/2025 6:03 AM EDT [facility] Tissue Structure of left knee region / Unknown 01/20/2025 10:27 AM EDT 01/20/2025 11:24 AM EDT Comment:Pre-op diagnosis: Closed fracture of left tibial plateau with routine healing, subsequent encounter [S82.142D] us Bob Nava MD LAB MICROBIOLOGY - GENERAL O RDERABLES Final Result [facility] [address] [place] [address] * Tissue Culture and Gram Stain (01/20/2025 10:27 AM EDT) Culture No growth at day 4 2024 7:15 AM EDT [facility] Gram Stain Result No organisms seen 01/25/2025 7:15 AM EDT [facility] Gram Stain Result No polymorphonuclear leukocytes seen 01/25/2025 7:15 AM EDT [facility] Tissue Structure of left knee region / Unknown 01/20/2025 10:27 AM EDT 01/20/2025 11:24 AM EDT Comment:Pre-op diagnosis: Closed fracture of left tibial plateau with routine healing, subsequent encounter [S82.142D] us Bob Nava MD LAB MICROBIOLOGY - GENERAL O RDERABLES Final Result [facility] [address] [place] [address] * Anaerobic Culture (01/20/2025 10:27 AM EDT) Culture No growth at day 4 01/28/2025 7:09 AM EDT [facility] Tissue Structure of left knee region / Unknown 01/20/2025 10:27 AM EDT 01/20/2025 11:24 AM EDT Comment:Pre-op diagnosis: Closed fracture of left tibial plateau with routine healing, subsequent encounter [S82.142W] Bob Nava MD LAB MICROBIOLOGY - GENERAL O RDERABLES Final Result Performing Organization Address [facility]/ZIP Co de Phone Number [facility] [address] [address] * (ABNORMAL) Creatine Kinase (CK), Total (01/20/2025 3:40 AM EDT) Creatine Kinase, Plasma 18(L) 49 - 320 U/L 01/21/2025 12:17 PM EDT [facility] Blood Venous blood specimen / Unknown Venipuncture / Unknown 01/20/2025 3:40 AM EDT 01/20/2025 3:57 AM EDT Sachin Garza MD LAB BLOOD ORDERABLES Final R esult Performing Organization Address [facility] Co de Phone Number [facility] [address] [place] [address] * Vancomycin, random (01/20/2025 3:40 AM EDT) Pathologist [facility] Vancomycin, Random, Plasma 20.1 ug/mL 01/20/2025 4:51 AM EDT [facility] Blood Venous blood specimen / Unknown Venipuncture / Unknown 01/20/2025 3:40 AM EDT 01/20/2025 3:57 AM EDT Sachin Garza MD LAB BLOOD ORDERABLES Final R esult Performing Organization Address City/[facility] Co de Phone Number [facility] [address] [place] [address] * Protime-INR (01/20/2025 3:40 AM EDT) [facility] Prothrombin Time 13.5 12.0 - 14.3 sec LAB COAGULATION METHOD 01/20/2025 4:17 AM EDT [facility] INR 1.0 0.9 - 1.1 LAB COAGULATION METHOD 01/20/2025 4:17 AM EDT [facility] Blood Venous blood specimen / Unknown Venipuncture / Unknown 01/20/2025 3:40 AM EDT 01/20/2025 3:56 AM EDT Narrative [facility] - 01/20/2025 4:17 AM EDT OPTIMAL INR RANGES FOR PATIENT ON ORAL ANTICOAGULANT THERAPY Prevention of venous thromboembolism INR 2.0 to 3.0 In patients with heart disease: Atrial fibrillation INR 2.0 to 3.0 Valvular heart disease INR 2.0 to 3.0 Tissue heart valves INR 2.0 to 3.0 Mechanical prosthetic valves INR 2.5 to 3.5 Prevention of recurrent NV INR 2.5 to 3.5 us Sachin Garza MD LAB BLOOD ORDERABLES Final R esult [facility] [address] [place] [address] * (ABNORMAL) Basic metabolic panel (01/20/2025 3:40 AM EDT) Glucose, Plasma 87 74 - 99 mg/dL 01/20/2025 4:51 AM EDT [facility] BUN, Plasma 30(H) 7 - 21 mg/dL 01/20/2025 4:51 AM EDT [facility] Creatinine, Plasma 1.59(H) 0.70 - 1.20 mg/dL 01/20/2025 4:51 AM EDT [facility] BUN/Creatinine Ratio 19 01/20/2025 4:51 AM EDT [facility] Sodium, Plasma 142 136 - 145 mmol/L 01/20/2025 4:51 AM EDT [facility] Potassium, Plasma 4.7 3.6 - 4.9 mmol/L 01/20/2025 4:51 AM EDT [facility] Chloride, Plasma 104 97 - 107 mmol/L 01/20/2025 4:51 AM EDT [facility] CO2, Plasma 26 22 - 29 mmol/L 01/20/2025 4:51 AM EDT [facility] Anion Gap 12 6 - 16 mmol/L 01/20/2025 4:51 AM EDT [facility] Total Calcium, Plasma 8.9 8.9 - 10.2 mg/dL 01/20/2025 4:51 AM EDT [facility] eGFRcr 57.7 mL/min/1.7 3m*2 01/20/2025 4:51 AM EDT [facility] Comment:Reported eGFRcr in m L/min/1.73m2 is based the CKD-EPI 2020 equation that does not use a race coefficient. Blood Venous blood specimen / Unknown Venipuncture / Unknown 01/20/2025 3:40 AM EDT 01/20/2025 3:57 AM EDT us Sachin Garza MD LAB BLOOD ORDERABLES Final R esult [facility] [address] [place] [address] * (ABNORMAL) CBC W/O Differential (01/20/2025 3:40 AM EDT) WBC Count 8.11 3.70 - 10.30 10*3/uL LAB HEMATOLOGY METHOD 01/20/2025 4:04 AM EDT [facility] RBC Count 3.64(L) 4.60 - 6.10 10*6/uL LAB HEMATOLOGY METHOD 01/20/2025 4:04 AM EDT [facility] HGB 10.7(L) 13.7 - 17.5 g/dL LAB HEMATOLOGY METHOD 01/20/2025 4:04 AM EDT [facility] HCT 34.5(L) 40.0 - 51.0 % LAB HEMATOLOGY METHOD 01/20/2025 4:04 AM EDT [facility] Platelet Count 399(H) 155 - 369 10*3/uL LAB HEMATOLOGY METHOD 01/20/2025 4:04 AM EDT [facility] MCV 95 79 - 98 fL LAB HEMATOLOGY METHOD 01/20/2025 4:04 AM EDT [facility] MCH 29.4 26.0 - 32.0 pg LAB HEMATOLOGY METHOD 01/20/2025 4:04 AM EDT [facility] MCHC 31.0 30.7 - 35.5 g/dL LAB HEMATOLOGY METHOD 01/20/2025 4:04 AM EDT [facility] RDW 13.1 11.5 - 14.5 % LAB HEMATOLOGY METHOD 01/20/2025 4:04 AM EDT [facility] MPV 9.5 8.8 - 12.5 fL LAB HEMATOLOGY METHOD 01/20/2025 4:04 AM EDT [facility] nRBC 0.0 <=0.0 per 100 WBCs LAB HEMATOLOGY METHOD 01/20/2025 4:04 AM EDT [facility] Blood Venous blood specimen / Unknown Venipuncture / Unknown 01/20/2025 3:40 AM EDT 01/20/2025 3:56 AM EDT us Sachin Garza MD LAB BLOOD ORDERABLES Final R esult Performing Organization Address City/[facility]/ZIP Co de Phone Number [facility] [address] [place] [address] * Vancomycin, random (01/19/2025 11:48 AM EDT) Vancomycin, Random, Plasma 22.9 ug/mL 01/19/2025 1:05 PM EDT [facility] Blood Venous blood specimen / Unknown Venipuncture / Unknown 01/19/2025 11:48 AM EDT 01/19/2025 11:50 AM EDT us Sachin Garza MD LAB BLOOD ORDERABLES Final R esult [facility] [address] [place] [address] * (ABNORMAL) Basic Metabolic Panel, Plasma (01/18/2025 11:54 PM EDT) Glucose, Plasma 134(H) 74 - 99 mg/dL 01/19/2025 12:45 AM EDT [facility] BUN, Plasma 24(H) 7 - 21 mg/dL 01/19/2025 12:45 AM EDT [facility] Creatinine, Plasma 1.34(H) 0.70 - 1.20 mg/dL 01/19/2025 12:45 AM EDT [facility] BUN/Creatinine Ratio 18 01/19/2025 12:45 AM EDT [facility] Sodium, Plasma 137 136 - 145 mmol/L 01/19/2025 12:45 AM EDT [facility] Potassium, Plasma 4.7 3.6 - 4.9 mmol/L 01/19/2025 12:45 AM EDT [facility] Chloride, Plasma 100 97 - 107 mmol/L 01/19/2025 12:45 AM EDT [facility] CO2, Plasma 24 22 - 29 mmol/L 01/19/2025 12:45 AM EDT [facility] Anion Gap 13 6 - 16 mmol/L 01/19/2025 12:45 AM [facility] Total Calcium, Plasma 9.3 8.9 - 10.2 mg/dL 01/19/2025 12:45 AM [facility] eGFRcr 70.8 mL/min/1.7 3m*2 01/19/2025 12:45 AM [facility] Comment:Reported eGFRcr in m L/min/1.73m2 is based the CKD-EPI 2020 equation that does not use a race coefficient. Blood Venous blood specimen / Unknown Venipuncture / Unknown 01/18/2025 11:54 PM [facility] 01/19/2025 12:16 AM [facility] Sachin Garza MD LAB BLOOD ORDERABLES Final R esult [facility] [address] [place] [address] * (ABNORMAL) CBC W/O Differential (01/18/2025 11:54 PM EDT) WBC Count 11.85(H) 3.70 - 10.30 10*3/uL LAB HEMATOLOGY METHOD 01/19/2025 12:20 AM EDT [facility] RBC Count 3.76(L) 4.60 - 6.10 10*6/uL LAB HEMATOLOGY METHOD 01/19/2025 12:20 AM EDT [facility] HGB 11.3(L) 13.7 - 17.5 g/dL LAB HEMATOLOGY METHOD 01/19/2025 12:20 AM EDT [facility] HCT 34.2(L) 40.0 - 51.0 % LAB HEMATOLOGY METHOD 01/19/2025 12:20 AM EDT [facility] Platelet Count 394(H) 155 - 369 10*3/uL LAB HEMATOLOGY METHOD 01/19/2025 12:20 AM EDT [facility] MCV 91 79 - 98 fL LAB HEMATOLOGY METHOD 01/19/2025 12:20 AM EDT [facility] MCH 30.1 26.0 - 32.0 pg LAB HEMATOLOGY METHOD 01/19/2025 12:20 AM EDT [facility] MCHC 33.0 30.7 - 35.5 g/dL LAB HEMATOLOGY METHOD 01/19/2025 12:20 AM EDT [facility] RDW 12.9 11.5 - 14.5 % LAB HEMATOLOGY METHOD 01/19/2025 12:20 AM EDT [facility] MPV 9.5 8.8 - 12.5 fL LAB HEMATOLOGY METHOD 01/19/2025 12:20 AM EDT [facility] nRBC 0.0 <=0.0 per 100 WBCs LAB HEMATOLOGY METHOD 01/19/2025 12:20 AM EDT [facility] Blood Venous blood specimen / Unknown Venipuncture / Unknown 01/18/2025 11:54 PM EDT 01/19/2025 12:13 AM EDT us Sachin Garza MD LAB BLOOD ORDERABLES Final R esult [facility] [address] [place] [address] * Fungal Culture, Sterile Body Fluid (NOT CSF) and SYEDA (01/18/2025 3:28 PM EDT) Culture No Fungal Growth at 3 Weeks 02/10/2025 8:37 AM EDT [facility] SYEDA No fungal elements seen 02/10/2025 8:37 AM EDT [facility] Joint Fluid Topography unknown / Unknown Non-blood Collection / Unknown 01/18/2025 3:28 PM EDT 01/18/2025 3:28 PM EDT us Sachin Garza MD LAB MICROBIOLOGY - GENERAL O RDERABLES Final Result Performing Organization Address [facility]/ZIP Co de Phone Number [facility] [address] [place] [address] * Anaerobic Culture (01/18/2025 3:28 PM EDT) Culture No anaerobes isolated 01/23/2025 7:50 AM EDT [facility] Joint Fluid Topography unknown / Unknown Non-blood Collection / Unknown 01/18/2025 3:28 PM EDT 01/18/2025 3:28 PM EDT us Sachin Garza MD LAB MICROBIOLOGY - GENERAL O RDERABLES Final Result Performing Organization Address [facility] Co de Phone Number [facility] [address] [place] [address] * (ABNORMAL) Body Fluid Culture and Gram Stain (01/18/2025 3:28 PM EDT) Culture Heavy Growth 01/20/2025 8:34 AM EDT [facility] Culture Methicillin-Resista nt Staphylococcus aureus(AA) 01/20/2025 8:34 AM EDT [facility] Comment: For susceptibility results refer to: - [id number] The organism value for this result has been updated. These results have been appended to the previously preliminary verified report. Edited result: Previously reported as Staphylococcus aureus on 01/19/2025 at 0933 EDT. Staphylococcus aureus has been updated to reportable. Gram Stain Result Numerous Polymorphonuclear leukocytes 01/20/2025 8:34 AM EDT [facility] Gram Stain Result No organisms seen 01/20/2025 8:34 AM EDT [facility] Joint Fluid Topography unknown / Unknown Non-blood Collection / Unknown 01/18/2025 3:28 PM EDT 01/18/2025 3:28 PM EDT us Sachin Garza MD LAB MICROBIOLOGY - GENERAL O RDERABLES Final Result Performing Organization Address [facility] Co de Phone Number [facility] [address] [place] [address] * Body fluid, cytospin, pathologist interpretation (01/18/2025 3:01 PM EDT) Specimen Type Joint Fluid LAB HEMATOLOGY METHOD 01/20/2025 4:29 PM EDT [facility] Specimen Source, Body Fluid Knee, Left LAB HEMATOLOGY METHOD 01/20/2025 4:29 PM EDT [facility] Clinical Diagnosis, Body Fluid Left lower extremity cellulitis LAB HEMATOLOGY METHOD 01/20/2025 4:29 PM EDT [facility] Interpretation , Body Fluid Bloody specimen Acute and chronic inflammatory cells Correlation with microbiology studies recommended A resident was involved in the service. I attest I examined the relevant preparations for the specimens and confirmed the diagnosis or interpretation. 01/20/2025 4:29 PM EDT [facility] Pathologist Signature, Body Fluid 01/20/2025 4:29 PM EDT [facility] Comment:Reviewed by: Stephanie conti MD LAB CP ASR DISCLAIMER Yes 01/20/2025 4:29 PM EDT [facility] Joint Fluid Structure of left knee region / Unknown 01/18/2025 3:01 PM EDT 01/18/2025 3:28 PM EDT us Sachin Garza MD LAB BODY FLUIDS AND STOOLS O RDERABLES Final Result Performing Organization Address City/[facility]/ZIP Co de Phone Number [facility] [address] [place] [address] * Joint Fluid Crystals (01/18/2025 3:01 PM EDT) Crystals, Joint Fluid No Crystals Seen No Crystals Present 01/18/2025 5:28 PM EDT [facility] Joint Fluid Structure of left knee region / Unknown 01/18/2025 3:01 PM EDT 01/18/2025 3:28 PM EDT us Sachin Garza MD LAB BODY FLUIDS AND STOOLS O RDERABLES Final Result [facility] [address] [place] [address] * (ABNORMAL) Body Fluid Cell Count w/ Diff (01/18/2025 3:01 PM EDT) Color, Body fluid Red LAB HEMATOLOGY METHOD 01/18/2025 11:05 PM EDT [facility] Appearance, Body fluid Cloudy(A) LAB HEMATOLOGY METHOD 01/18/2025 11:05 PM EDT [facility] Volume, Body fluid 3.5 cc LAB HEMATOLOGY METHOD 01/18/2025 11:05 PM EDT [facility] Fluid Container Specimen received in EDTA tube LAB HEMATOLOGY METHOD 01/18/2025 11:05 PM EDT [facility] Red Blood Cell Count, Body fluid 299,000 uL LAB HEMATOLOGY METHOD 01/18/2025 11:05 PM EDT [facility] Total Nucleated Cell Count, Body fluid 873 uL LAB HEMATOLOGY METHOD 01/18/2025 11:05 PM EDT [facility] Neutrophils %, Body fluid 17 % LAB HEMATOLOGY METHOD 01/18/2025 11:05 PM EDT [facility] Lymphocytes %, Body fluid 55 % LAB HEMATOLOGY METHOD 01/18/2025 11:05 PM EDT [facility] Monocytes/Macro phages %, Body fluid 27 % LAB HEMATOLOGY METHOD 01/18/2025 11:05 PM EDT [facility] Eosinophils %, Body fluid 1 % LAB HEMATOLOGY METHOD 01/18/2025 11:05 PM EDT [facility] Lining/Mesothel ial Cells %, Body fluid 0 % LAB HEMATOLOGY METHOD 01/18/2025 11:05 PM EDT [facility] Neutrophils Absolute (PMN), Body fluid 148 uL LAB HEMATOLOGY METHOD 01/18/2025 11:05 PM EDT [facility] Lymphocytes Absolute, Body fluid 480 uL LAB HEMATOLOGY METHOD 01/18/2025 11:05 PM EDT [facility] Monocytes/Macro phages Absolute, Body fluid 236 uL LAB HEMATOLOGY METHOD 01/18/2025 11:05 PM EDT [facility] Eosinophils Absolute, Body fluid 9 uL LAB HEMATOLOGY METHOD 01/18/2025 11:05 PM EDT [facility] Basophils Absolute, Body fluid 0 uL LAB HEMATOLOGY METHOD 01/18/2025 11:05 PM EDT [facility] Lining/Mesothel ial Cells Absolute, Body fluid 0 uL LAB HEMATOLOGY METHOD 01/18/2025 11:05 PM EDT [facility] Comment, Body fluid None LAB HEMATOLOGY METHOD 01/18/2025 11:05 PM EDT [facility] Comment:This is an appended report. These results have been appended to a previously preliminary verified report. Basophils %, Body fluid 0 % LAB HEMATOLOGY METHOD 01/18/2025 11:05 PM EDT [facility] Joint Fluid Structure of left knee region / Unknown 01/18/2025 3:01 PM EDT 01/18/2025 3:28 PM EDT us Sachin Garza MD LAB BODY FLUIDS AND STOOLS ORDERABLES NO SPECIMEN TYPE/SOURCE Final Result Performing Organization Address City/[facility]/ZIP Co de Phone Number [facility] [address] [place] [address] * Body Fluid Culture and Gram Stain (01/18/2025 12:17 PM EDT) Culture No growth at day 4 2024 11:06 AM EDT [facility] Gram Stain Result No polymorphonuclear leukocytes seen 01/21/2025 11:06 AM EDT [facility] Gram Stain Result No organisms seen 01/21/2025 11:06 AM EDT [facility] Joint Fluid Synovial fluid specimen / Unknown Non-blood Collection / Unknown 01/18/2025 12:17 PM EDT 01/18/2025 3:24 PM EDT Comment:Pre-op diagnosis: Cellulitis of left lower extremity [L03.116] us Dawine Das DO LAB MICROBIOLOGY - GENERAL ORDERABLES Final Result Performing Organization Address City/[facility]/ZIP Co de Phone Number [facility] [address] [place] [address] * Joint Infection Panel by PCR (01/18/2025 12:17 PM EDT) Anaerococcus prevotii/vaginalis PCR Result Not Detected Not Detected 01/18/2025 5:28 PM EDT [facility] Clostridium perfringens PCR Result Not Detected Not Detected 01/18/2025 5:28 PM EDT [facility] Cutibacterium avidum/granulosum PCR Result Not Detected Not Detected 01/18/2025 5:28 PM EDT [facility] Enterococcus faecalis PCR Result Not Detected Not Detected 01/18/2025 5:28 PM EDT [facility] Enterococcus faecium PCR Result Not Detected Not Detected 01/18/2025 5:28 PM EDT [facility] Finegoldia magna PCR Result Not Detected Not Detected 01/18/2025 5:28 PM EDT [facility] Parvimonas micra PCR Result Not Detected Not Detected 01/18/2025 5:28 PM EDT [facility] Peptoniphilus PCR Result Not Detected Not Detected 01/18/2025 5:28 PM EDT [facility] Peptostreptococcus anaerobius PCR Result Not Detected Not Detected 01/18/2025 5:28 PM EDT [facility] Staphylococcus aureus PCR Result Not Detected Not Detected 01/18/2025 5:28 PM EDT [facility] Staphylococcus lugdunensis PCR Result Not Detected Not Detected 01/18/2025 5:28 PM EDT [facility] Streptococcus spp PCR Result Not Detected Not Detected 01/18/2025 5:28 PM EDT [facility] Streptococcus agalactiae PCR Result Not Detected Not Detected 01/18/2025 5:28 PM EDT [facility] Streptococcus pneumoniae PCR Result Not Detected Not Detected 01/18/2025 5:28 PM EDT [facility] Streptococcus pyogenes PCR Result Not Detected Not Detected 01/18/2025 5:28 PM EDT [facility] Bacteroides fragilis PCR Result Not Detected Not Detected 01/18/2025 5:28 PM EDT [facility] Citrobacter PCR Result Not Detected Not Detected 01/18/2025 5:28 PM EDT [facility] Enterobacter cloacae complex PCR Result Not Detected Not Detected 01/18/2025 5:28 PM EDT [facility] Escherichia coli PCR Result Not Detected Not Detected 01/18/2025 5:28 PM EDT [facility] Haemophilus influenzae PCR Result Not Detected Not Detected 01/18/2025 5:28 PM EDT [facility] Kingella kingae PCR Result Not Detected Not Detected 01/18/2025 5:28 PM EDT [facility] Klebsiella aerogenes PCR Result Not Detected Not Detected 01/18/2025 5:28 PM EDT [facility] Klebsiella pneumoniae group PCR Result Not Detected Not Detected 01/18/2025 5:28 PM EDT [facility] Morganella morganii PCR Result Not Detected Not Detected 01/18/2025 5:28 PM EDT [facility] Neisseria gonorrhoeae PCR Result Not Detected Not Detected 01/18/2025 5:28 PM EDT [facility] Proteus spp PCR Result Not Detected Not Detected 01/18/2025 5:28 PM EDT [facility] Pseudomonas aeruginosa PCR Result Not Detected Not Detected 01/18/2025 5:28 PM EDT [facility] Salmonella spp PCR Result Not Detected Not Detected 01/18/2025 5:28 PM EDT [facility] Serratia marcescens PCR Result Not Detected Not Detected 01/18/2025 5:28 PM EDT [facility] Nelda PCR Result Not Detected Not Detected 01/18/2025 5:28 PM EDT [facility] Nelda albicans PCR Result Not Detected Not Detected 01/18/2025 5:28 PM EDT [facility] CTXM PCR Result Not Detected Not Detected 01/18/2025 5:28 PM EDT [facility] IMP PCR Result Not Detected Not Detected 01/18/2025 5:28 PM EDT [facility] KPC PCR Result Not Detected Not Detected 01/18/2025 5:28 PM EDT [facility] mecA/C and MREJ (MRSA) PCR Result Not Detected Not Detected 01/18/2025 5:28 PM EDT [facility] NDM PCR Result Not Detected Not Detected 01/18/2025 5:28 PM EDT [facility] OXA-48-like PCR Result Not Detected Not Detected 01/18/2025 5:28 PM EDT [facility] Jarret/B PCR Result Not Detected Not Detected 01/18/2025 5:28 PM EDT [facility] VIM PCR Result Not Detected Not Detected 01/18/2025 5:28 PM EDT [facility] Joint Fluid Synovial fluid specimen / Unknown Non-blood Collection / Unknown 01/18/2025 12:17 PM EDT 01/18/2025 3:24 PM EDT Narrative [facility] - 01/18/2025 5:28 PM EDT [...] MICROBIOLOGY - GENERAL O RDERABLES Final Result [facility] [address] [place] [address] * Fungal Culture, Tissue and SYEDA (01/18/2025 10:00 AM EDT) Culture Reading Mycological 4 Weeks No Fungal Growth at 4 Weeks 02/16/2025 8:50 AM EDT [facility] SYEDA No fungal elements seen 02/16/2025 8:50 AM EDT [facility] Tissue Topography unknown / Unknown 01/18/2025 10:00 AM EDT 01/18/2025 3:26 PM EDT Comment:Pre-op diagnosis: Cellulitis of left lower extremity [L03.116] Dwaine Nicholsvtukshivani DO LAB MICROBIOLOGY - GENERAL ORDERABLES Final Result [facility] [address] [place] [address] * (ABNORMAL) Tissue Culture and Gram Stain (01/18/2025 10:00 AM EDT) Culture Heavy Growth 01/20/2025 8:34 AM EDT [facility] Culture Methicillin-Resista nt Staphylococcus aureus(AA) JOVANI 01/20/2025 8:34 AM EDT [facility] Comment: The organism value for this result has been updated. These results have been appended to the previously preliminary verified report. Edited result: Previously reported as Staphylococcus aureus on 01/19/2025 at 0914 EDT. Staphylococcus aureus has been updated to reportable. Gram Stain Result Numerous Polymorphonuclear leukocytes(A) 01/20/2025 8:34 AM EDT [facility] Gram Stain Result Rare Gram positive cocci in clusters(A) 01/20/2025 8:34 AM EDT [facility] Tissue Topography unknown / Unknown [...] aureus Vancomycin JOVANI 1 ug/ml: Susceptible [facility] MICROBIOLOGY - GENERAL ORDERABLES Final Result Performing Organization Address [facility] Co de Phone Number [facility] [address] [place] [address] * Anaerobic Culture (01/18/2025 10:00 AM EDT) Culture No anaerobes isolated 01/23/2025 7:50 AM EDT [facility] Tissue Topography unknown / Unknown 01/18/2025 10:00 AM EDT 01/18/2025 3:26 PM EDT Comment:Pre-op diagnosis: Cellulitis of left lower extremity [L03.116] Dwaine HoweThe [facility] MICROBIOLOGY - GENERAL ORDERABLES Final Result Performing Organization Address [facility] de Phone Number [facility] [address] [address] * Body fluid, cytospin, pathologist interpretation (01/18/2025 9:57 AM EDT) Specimen Type Cyst Fluid LAB HEMATOLOGY METHOD 01/20/2025 4:28 PM EDT [facility] Specimen Source, Body Fluid Other (specify site) LAB HEMATOLOGY METHOD 01/20/2025 4:28 PM EDT [facility] Clinical Diagnosis, Body Fluid Left lower extremity cyst fluid LAB HEMATOLOGY METHOD 01/20/2025 4:28 PM EDT [facility] Interpretation , Body Fluid No evidence of malignancy Bloody specimen Acute inflammatory cells Correlation with microbiology studies recommended A resident was involved in the service. I attest I examined the relevant preparations for the specimens and confirmed the diagnosis or interpretation. 01/20/2025 4:28 PM EDT [facility] Pathologist Signature, Body Fluid 01/20/2025 4:28 PM EDT [facility] Comment:Reviewed by: Stephanie conti MD LAB CP ASR DISCLAIMER Yes 01/20/2025 4:28 PM EDT [facility] Cyst Fluid Topography unknown / Unknown 01/18/2025 9:57 AM EDT 01/18/2025 3:19 PM EDT Dwaine Nicholsamandadarya LAB BODY FLUIDS AND STOOLS ORDERABLES Final Result [facility] [address] [place] [address] * (ABNORMAL) Body Fluid Cell Count w/ Diff (01/18/2025 9:57 AM EDT) Color, Body fluid Red LAB HEMATOLOGY METHOD 01/18/2025 7:13 PM EDT [facility] Appearance, Body fluid Cloudy(A) LAB HEMATOLOGY METHOD 01/18/2025 7:13 PM EDT [facility] Volume, Body fluid 10.0 cc LAB HEMATOLOGY METHOD 01/18/2025 7:13 PM EDT [facility] Fluid Container Specimen received in miscellaneous container LAB HEMATOLOGY METHOD 01/18/2025 7:13 PM EDT [facility] Red Blood Cell Count, Body fluid 240,000 uL LAB HEMATOLOGY METHOD 01/18/2025 7:13 PM EDT [facility] Comment:Clot present, may af fect results. Test performed by manual method. Total Nucleated Cell Count, Body fluid 83,500 uL LAB HEMATOLOGY METHOD 01/18/2025 7:13 PM EDT [facility] Comment:Clot present, may af fect results. Test performed by manual method. Neutrophils %, Body fluid 98 % LAB HEMATOLOGY METHOD 01/18/2025 7:13 PM EDT [facility] Lymphocytes %, Body fluid 2 % LAB HEMATOLOGY METHOD 01/18/2025 7:13 PM EDT [facility] Monocytes/Macr ophages %, Body fluid 0 % LAB HEMATOLOGY METHOD 01/18/2025 7:13 PM EDT [facility] Eosinophils %, Body fluid 0 % LAB HEMATOLOGY METHOD 01/18/2025 7:13 PM EDT [facility] Lining/Mesothe lial Cells %, Body fluid 0 % LAB HEMATOLOGY METHOD 01/18/2025 7:13 PM EDT [facility] Neutrophils Absolute (PMN), Body fluid 81,830 uL LAB HEMATOLOGY METHOD 01/18/2025 7:13 PM EDT [facility] Lymphocytes Absolute, Body fluid 1,670 uL LAB HEMATOLOGY METHOD 01/18/2025 7:13 PM EDT [facility] Monocytes/Macr ophages Absolute, Body fluid 0 uL LAB HEMATOLOGY METHOD 01/18/2025 7:13 PM EDT [facility] Eosinophils Absolute, Body fluid 0 uL LAB HEMATOLOGY METHOD 01/18/2025 7:13 PM EDT [facility] Basophils Absolute, Body fluid 0 uL LAB HEMATOLOGY METHOD 01/18/2025 7:13 PM EDT [facility] Lining/Mesothe lial Cells Absolute, Body fluid 0 uL LAB HEMATOLOGY METHOD 01/18/2025 7:13 PM EDT [facility] Comment, Body fluid Bacteria seen. LAB HEMATOLOGY METHOD 01/18/2025 7:13 PM EDT [facility] Basophils %, Body fluid 0 % LAB HEMATOLOGY METHOD 01/18/2025 7:13 PM EDT [facility] Cyst Fluid Topography unknown / Unknown 01/18/2025 9:57 AM EDT 01/18/2025 3:19 PM EDT Comment:Pre-op diagnosis: Cellulitis of left lower extremity [L03.116] Dwaine Das DO LAB BODY FLUIDS AND STOOLS ORDERABLES NO SPECIMEN TYPE/SOURCE Final Result [facility] [address] [place] [address] * Fungal Culture, Sterile Body Fluid (NOT CSF) and SYEDA (01/18/2025 9:57 AM EDT) Culture No Fungal Growth at 3 Weeks 02/10/2025 8:37 AM EDT [facility] SYEDA No fungal elements seen 02/10/2025 8:37 AM EDT [facility] Cyst Fluid Topography unknown / Unknown 01/18/2025 9:57 AM EDT 01/18/2025 3:26 PM EDT Comment:Pre-op diagnosis: Cellulitis of left lower extremity [L03.116] Dwaine Das LAB MICROBIOLOGY - GENERAL ORDERABLES Final Result Performing Organization Address [facility] de Phone Number [facility] [address] [place] [address] * (ABNORMAL) Body Fluid Culture and Gram Stain (01/18/2025 9:57 AM EDT) Culture Heavy Growth 01/20/2025 8:34 AM EDT [facility] Culture Methicillin-Resista nt Staphylococcus aureus(AA) 01/20/2025 8:34 AM EDT [facility] Comment: For susceptibility results refer to: - [id number] The organism value for this result has been updated. These results have been appended to the previously preliminary verified report. Edited result: Previously reported as Staphylococcus aureus on 01/19/2025 at 0916 EDT. Staphylococcus aureus has been updated to reportable. Gram Stain Result Numerous Polymorphonuclear leukocytes(A) 01/20/2025 8:34 AM EDT [facility] Gram Stain Result Moderate Gram positive cocci in clusters(A) 01/20/2025 8:34 AM EDT [facility] Cyst Fluid Topography unknown / Unknown 01/18/2025 9:57 AM EDT 01/18/2025 3:26 PM EDT Comment:Pre-op diagnosis: Cellulitis of left lower extremity [L03.116] us Dwaine Das DO LAB MICROBIOLOGY - GENERAL ORDERABLES Final Result Performing Organization Address City/[facility]/ZIP Co de Phone Number [facility] [address] [place] [address] * Anaerobic Culture (01/18/2025 9:57 AM EDT) Culture No anaerobes isolated 01/23/2025 7:50 AM EDT [facility] Cyst Fluid Topography unknown / Unknown 01/18/2025 9:57 AM EDT 01/18/2025 3:26 PM EDT Comment:Pre-op diagnosis: Cellulitis of left lower extremity [L03.116] Dwaine Das DO LAB MICROBIOLOGY - GENERAL ORDERABLES Final Result Performing Organization Address [facility] Co de Phone Number [facility] [address] [place] [address] * Methicillin Resistant Staphylococcus aureus (MRSA) by PCR (01/18/2025 7:43 AM EDT) Methicillin Resistant Staphylococcus aureus (MRSA) by PCR Not Detected Not Detected 01/18/2025 9:36 AM EDT [facility] Swab Both anterior nares / Unknown Non-blood Collection / Unknown 01/18/2025 7:43 AM EDT 01/18/2025 8:19 AM EDT Narrative [facility] - 01/18/2025 9:36 AM EDT [...] O RDERABLES Final Result Performing Organization Address [facility] Corporation de Phone Number [facility] [address] [place] [address] * (ABNORMAL) Basic metabolic panel (01/18/2025 12:18 AM EDT) Glucose, Plasma 105(H) 74 - 99 mg/dL 01/18/2025 1:30 AM EDT [facility] BUN, Plasma 14 7 - 21 mg/dL 01/18/2025 1:30 AM EDT [facility] Creatinine, Plasma 0.80 0.70 - 1.20 mg/dL 01/18/2025 1:30 AM EDT [facility] BUN/Creatinine Ratio 18 01/18/2025 1:30 AM EDT [facility] Sodium, Plasma 137 136 - 145 mmol/L 01/18/2025 1:30 AM EDT [facility] Potassium, Plasma 4.3 3.6 - 4.9 mmol/L 01/18/2025 1:30 AM EDT [facility] Chloride, Plasma 100 97 - 107 mmol/L 01/18/2025 1:30 AM EDT [facility] CO2, Plasma 26 22 - 29 mmol/L 01/18/2025 1:30 AM EDT [facility] Anion Gap 11 6 - 16 mmol/L 01/18/2025 1:30 AM EDT [facility] Total Calcium, Plasma 9.0 8.9 - 10.2 mg/dL 01/18/2025 1:30 AM EDT [facility] eGFRcr 118.4 mL/min/1.7 3m*2 01/18/2025 1:30 AM EDT [facility] Comment:Reported eGFRcr in m L/min/1.73m2 is based the CKD-EPI 2020 equation that does not use a race coefficient. Blood Venous blood specimen / Unknown Venipuncture / Unknown 01/18/2025 12:18 AM EDT 01/18/2025 12:27 AM EDT us Sachin Garza MD LAB BLOOD ORDERABLES Final R esult [facility] [address] [place] [address] * (ABNORMAL) CBC W/O Differential (01/18/2025 12:18 AM EDT) WBC Count 8.77 3.70 - 10.30 10*3/uL LAB HEMATOLOGY METHOD 01/18/2025 12:36 AM EDT [facility] RBC Count 3.94(L) 4.60 - 6.10 10*6/uL LAB HEMATOLOGY METHOD 01/18/2025 12:36 AM EDT [facility] HGB 11.7(L) 13.7 - 17.5 g/dL LAB HEMATOLOGY METHOD 01/18/2025 12:36 AM EDT [facility] HCT 37.1(L) 40.0 - 51.0 % LAB HEMATOLOGY METHOD 01/18/2025 12:36 AM EDT [facility] Platelet Count 347 155 - 369 10*3/uL LAB HEMATOLOGY METHOD 01/18/2025 12:36 AM EDT [facility] MCV 94 79 - 98 fL LAB HEMATOLOGY METHOD 01/18/2025 12:36 AM EDT [facility] MCH 29.7 26.0 - 32.0 pg LAB HEMATOLOGY METHOD 01/18/2025 12:36 AM EDT [facility] MCHC 31.5 30.7 - 35.5 g/dL LAB HEMATOLOGY METHOD 01/18/2025 12:36 AM EDT [facility] RDW 13.1 11.5 - 14.5 % LAB HEMATOLOGY METHOD 01/18/2025 12:36 AM EDT [facility] MPV 9.5 8.8 - 12.5 fL LAB HEMATOLOGY METHOD 01/18/2025 12:36 AM EDT [facility] nRBC 0.0 <=0.0 per 100 WBCs LAB HEMATOLOGY METHOD 01/18/2025 12:36 AM EDT [facility] Blood Venous blood specimen / Unknown Venipuncture / Unknown 01/18/2025 12:18 AM EDT 01/18/2025 12:29 AM EDT Sachin Garza MD LAB BLOOD ORDERABLES Final R esult [facility] [address] [place] [address] * Vancomycin, Peak, Plasma Please draw ~2 hours after 1000 dose of vancomycin on Monday finishes infusing. Consider obtaining level via peripheral stick. If peripheral stick is not feasible, please ensure that line is flushed well prior to drawing l... (01/17/2025 2:03 PM EDT) Vancomycin, Peak, Plasma 22.0 20.0 - 40.0 ug/mL 01/17/2025 3:01 PM EDT [facility] Blood Venous blood specimen / Unknown Venipuncture / Unknown 01/17/2025 2:03 PM EDT 01/17/2025 2:32 PM EDT Narrative [facility] - 01/17/2025 3:01 PM EDT Therapeutic Peak level: 20-40ug/mL Supra-therapeutic Peak level: >40 ug/mL Sachin Garza MD LAB BLOOD ORDERABLES Final R esult Performing Organization Address [facility] Phone Number [facility] [address] [place] [address] * Vancomycin, Trough, Plasma Please draw ~30 minutes prior to dose due at 1000 on Monday. Please do NOT hold dose awaiting level to return. Consider obtaining level via peripheral stick. If peripheral stick is not feasible, please ensure that line ... (01/17/2025 9:53 AM EDT) Vancomycin, Trough, Plasma 12.5 10.0 - 20.0 ug/mL 01/17/2025 10:24 AM EDT [facility] Blood Venous blood specimen / Unknown Venipuncture / Unknown 01/17/2025 9:53 AM EDT 01/17/2025 9:57 AM EDT [facility] - 01/17/2025 10:24 AM EDT Therapeutic Trough level: 10-20ug/mL Supra-therapeutic Trough level: >20 ug/mL Sachin Garza MD LAB BLOOD ORDERABLES Final R esult Performing Organization Address [facility] Phone Number [facility] [address] [place] [address] * (ABNORMAL) Basic metabolic panel (01/17/2025 4:05 AM EDT) Glucose, Plasma 117(H) 74 - 99 mg/dL 01/17/2025 5:16 AM EDT [facility] BUN, Plasma 13 7 - 21 mg/dL 01/17/2025 5:16 AM EDT [facility] Creatinine, Plasma 0.75 0.70 - 1.20 mg/dL 01/17/2025 5:16 AM EDT [facility] BUN/Creatinine Ratio 17 01/17/2025 5:16 AM EDT [facility] Sodium, Plasma 135(L) 136 - 145 mmol/L 01/17/2025 5:16 AM EDT [facility] Potassium, Plasma 4.5 3.6 - 4.9 mmol/L 01/17/2025 5:16 AM EDT [facility] Chloride, Plasma 100 97 - 107 mmol/L 01/17/2025 5:16 AM EDT [facility] CO2, Plasma 25 22 - 29 mmol/L 01/17/2025 5:16 AM EDT [facility] Anion Gap 10 6 - 16 mmol/L 01/17/2025 5:16 AM EDT [facility] Total Calcium, Plasma 9.1 8.9 - 10.2 mg/dL 01/17/2025 5:16 AM EDT [facility] eGFRcr 120.7 mL/min/1.7 3m*2 01/17/2025 5:16 AM EDT [facility] Comment:Reported eGFRcr in m L/min/1.73m2 is based the CKD-EPI 2020 equation that does not use a race coefficient. Blood Venous blood specimen / Unknown Venipuncture / Unknown 01/17/2025 4:05 AM EDT 01/17/2025 4:35 AM EDT us Sachin Garza MD LAB BLOOD ORDERABLES Final R esult [facility] [address] [place] [address] * [place] Extremity Limited MSK or Soft [...] - 99 mg/dL 01/16/2025 5:15 AM EDT [facility] BUN, Plasma 12 7 - 21 mg/dL 01/16/2025 5:15 AM EDT [facility] Creatinine, Plasma 0.66(L) 0.70 - 1.20 mg/dL 01/16/2025 5:15 AM EDT [facility] BUN/Creatinine Ratio 18 01/16/2025 5:15 AM EDT [facility] Sodium, Plasma 136 136 - 145 mmol/L 01/16/2025 5:15 AM EDT [facility] Potassium, Plasma 4.5 3.6 - 4.9 mmol/L 01/16/2025 5:15 AM EDT [facility] Chloride, Plasma 100 97 - 107 mmol/L 01/16/2025 5:15 AM EDT [facility] CO2, Plasma 26 22 - 29 mmol/L 01/16/2025 5:15 AM EDT [facility] Anion Gap 10 6 - 16 mmol/L 01/16/2025 5:15 AM EDT [facility] Total Calcium, Plasma 8.8(L) 8.9 - 10.2 mg/dL 01/16/2025 5:15 AM EDT [facility] eGFRcr 125.4 mL/min/1.7 3m*2 01/16/2025 5:15 AM EDT [facility] Comment:Reported eGFRcr in m L/min/1.73m2 is based the CKD-EPI 2020 equation that does not use a race coefficient. Blood Venous blood specimen / Unknown Venipuncture / Unknown 01/16/2025 4:31 AM EDT 01/16/2025 4:46 AM EDT us Jeffrey Matute MD LAB BLOOD ORDERABLES Final Re sult [facility] [address] [place] [address] * Prothrombin Time/INR (01/16/2025 4:31 AM EDT) Prothrombin Time 12.9 12.0 - 14.3 sec 01/16/2025 4:46 AM EDT [facility] INR 1.0 0.9 - 1.1 01/16/2025 4:46 AM EDT [facility] Blood Venous blood specimen / Unknown Venipuncture / Unknown 01/16/2025 4:31 AM EDT 01/16/2025 4:33 AM EDT Narrative [facility] - 01/16/2025 4:46 AM EDT OPTIMAL INR RANGES FOR PATIENT ON ORAL ANTICOAGULANT THERAPY Prevention of venous thromboembolism INR 2.0 to 3.0 In patients with heart disease: Atrial fibrillation INR 2.0 to 3.0 Valvular heart disease INR 2.0 to 3.0 Tissue heart valves INR 2.0 to 3.0 Mechanical prosthetic valves INR 2.5 to 3.5 Prevention of recurrent NV INR 2.5 to 3.5 us Jeffrey Matute MD LAB BLOOD ORDERABLES Final Re sult [facility] [address] [place] [address] * (ABNORMAL) CBC W/O Differential (01/16/2025 4:31 AM EDT) WBC Count 17.78(H) 3.70 - 10.30 10*3/uL LAB HEMATOLOGY METHOD 01/16/2025 4:36 AM EDT [facility] RBC Count 4.14(L) 4.60 - 6.10 10*6/uL LAB HEMATOLOGY METHOD 01/16/2025 4:36 AM EDT [facility] HGB 12.4(L) 13.7 - 17.5 g/dL LAB HEMATOLOGY METHOD 01/16/2025 4:36 AM EDT [facility] HCT 37.6(L) 40.0 - 51.0 % LAB HEMATOLOGY METHOD 01/16/2025 4:36 AM EDT [facility] Platelet Count 359 155 - 369 10*3/uL LAB HEMATOLOGY METHOD 01/16/2025 4:36 AM EDT [facility] MCV 91 79 - 98 fL LAB HEMATOLOGY METHOD 01/16/2025 4:36 AM EDT [facility] MCH 30.0 26.0 - 32.0 pg LAB HEMATOLOGY METHOD 01/16/2025 4:36 AM EDT [facility] MCHC 33.0 30.7 - 35.5 g/dL LAB HEMATOLOGY METHOD 01/16/2025 4:36 AM EDT [facility] RDW 13.2 11.5 - 14.5 % LAB HEMATOLOGY METHOD 01/16/2025 4:36 AM EDT [facility] MPV 9.3 8.8 - 12.5 fL LAB HEMATOLOGY METHOD 01/16/2025 4:36 AM EDT [facility] nRBC 0.0 <=0.0 per 100 WBCs LAB HEMATOLOGY METHOD 01/16/2025 4:36 AM EDT [facility] Blood Venous blood specimen / Unknown Venipuncture / Unknown 01/16/2025 4:31 AM EDT 01/16/2025 4:33 AM EDT us Jeffrey Matute MD LAB BLOOD ORDERABLES Final Re sult [facility] [address] [place] [address] * CT Tibia Fibula Left w IV [...] MD on 01/16/2025 2:31 AM Gus Vigil CHILD DEVELOPMENT INSTRUCTOR IMG CT PROCEDURES Final Result * Blood Culture (Aerobic/Anaerobet Set) (01/16/2025 12:24 AM EDT) Culture No growth at day 5 01/21/2025 2:02 AM EDT [facility] Blood Venous blood specimen / Unknown Venipuncture / Unknown 01/16/2025 12:24 AM EDT 01/16/2025 1:12 AM EDT Narrative [facility] - 01/21/2025 2:02 AM EDT Low blood volume submitted, results may be compromised Gus Vigil CHILD DEVELOPMENT INSTRUCTOR LAB MICROBIOLOGY - GENER AL ORDERABLES Final Result [facility] [address] [place] [address] * XR Chest 1 View (01/15/2025 11:21 [...] MD on 01/15/2025 11:40 PM Gus Vigil CHILD DEVELOPMENT INSTRUCTOR IMG XR PROCEDURES Final Result * XR [...] MD on 01/15/2025 11:40 PM Gus Vigil CHILD DEVELOPMENT INSTRUCTOR IMG XR PROCEDURES Final Result * Type [...] ORDERA BLES Final Result BLOOD BANK [address] [place] [address], * ECG Adult (01/15/2025 10:46 PM EDT) EKG DIAGNOSIS CLASS Normal MUSE ECG Ventricular Rate 92 BPM MUSE ECG Atrial Rate 92 BPM MUSE ECG TX Interval 122 ms MUSE ECG QRSD Interval 102 ms MUSE ECG QT Interval 350 ms MUSE ECG QTC Interval 432 ms MUSE ECG P [place] 56 degrees MUSE ECG R [place] 44 degrees MUSE ECG T Wave [place] 57 degrees MUSE ECG Diagnosis Normal sinus [...] at day 5 01/20/2025 11:01 PM EDT [facility] Blood Structure of antecubital vein / Unknown Venipuncture / Unknown 01/15/2025 10:11 PM EDT 01/15/2025 10:19 PM EDT Narrative [facility] - 01/20/2025 11:01 PM EDT Low blood volume submitted, results may be compromised Gus Vigil APRN LAB MICROBIOLOGY - GENER AL ORDERABLES Final Result Performing Organization Address [facility]/ZIP Co de Phone Number [facility] [address] [place] [address] * (ABNORMAL) Sed rate, automated (01/15/2025 10:11 PM EDT) Sedimentation Rate 46(H) <15 mm/hr 2024 10:34 PM EDT [facility] Blood Venous blood specimen / Unknown Venipuncture / Unknown 01/15/2025 10:11 PM EDT 01/15/2025 10:12 PM [facility]T [facility] LAB BLOOD ORDERABLES Fin al Result Performing Organization Address City/[facility]/ZIP Co de Phone Number [facility] [address] [place] [address] * (ABNORMAL) C-Reactive protein (01/15/2025 10:11 PM EDT) CRP, Plasma 91.9(H) <=8.0 mg/L 01/15/2025 10:32 PM EDT [facility] Blood Venous blood specimen / Unknown Venipuncture / Unknown 01/15/2025 10:11 PM EDT 01/15/2025 10:12 PM EDT Narrative [facility] - 01/15/2025 10:32 PM EDT This CRP test is appropriate for assessment of infection, systemic inflammation and/or tissue injury. To assess cardiovascular disease risk order high sensitivity CRP (CRPH). Gus Rodger Evansen YUN LAB BLOOD ORDERABLES Fin al Result [facility] [address] [place] [address] * (ABNORMAL) Blood gas panel, venous (01/15/2025 10:11 PM EDT) pH, Venous 7.39 7.32 - 7.43 LAB HEMATOLOGY METHOD 01/15/2025 10:14 PM EDT [facility] pCO2, Venous 47 40 - 55 mmHg LAB HEMATOLOGY METHOD 01/15/2025 10:14 PM EDT [facility] pO2, Venous 34 25 - 40 mmHg LAB HEMATOLOGY METHOD 01/15/2025 10:14 PM EDT [facility] SO2, Measured, Venous 68 65 - 80 % LAB HEMATOLOGY METHOD 01/15/2025 10:14 PM EDT [facility] Base Excess, Venous 2.8 -2.0 - 3.0 mmol/L LAB HEMATOLOGY METHOD 01/15/2025 10:14 PM EDT [facility] Bicarbonate, Calculated, Venous 29(H) 22 - 26 mmol/L LAB HEMATOLOGY METHOD 01/15/2025 10:14 PM EDT [facility] Hematocrit, Whole Blood 40.4 40.0 - 51.0 % LAB HEMATOLOGY METHOD 01/15/2025 10:14 PM EDT [facility] Sodium, Whole Blood 135(L) 136 - 145 mmol/L LAB HEMATOLOGY METHOD 01/15/2025 10:14 PM EDT [facility] Potassium, Whole Blood 4.3 3.6 - 4.9 mmol/L LAB HEMATOLOGY METHOD 01/15/2025 10:14 PM EDT [facility] Chloride, Whole Blood 99 97 - 107 mmol/L LAB HEMATOLOGY METHOD 01/15/2025 10:14 PM EDT [facility] Glucose, Whole Blood 110(H) 74 - 99 mg/dL LAB HEMATOLOGY METHOD 01/15/2025 10:14 PM EDT [facility] Lactate, Venous, Whole Blood 1.1 0.5 - 2.2 mmol/L LAB HEMATOLOGY METHOD 01/15/2025 10:14 PM EDT [facility] Ionized Calcium, Whole Blood 4.6 4.6 - 5.1 mg/dL LAB HEMATOLOGY METHOD 01/15/2025 10:14 PM EDT [facility] Blood Venous blood specimen / Unknown Venipuncture / Unknown 01/15/2025 10:11 PM EDT 01/15/2025 10:12 PM EDT us Gus Vigil APRN LAB BLOOD ORDERABLES Fin al Result [facility] [address] [place] [address] * (ABNORMAL) CMP (01/15/2025 10:11 PM EDT) Glucose, Plasma 116(H) 74 - 99 mg/dL 01/15/2025 10:32 PM EDT [facility] BUN, Plasma 14 7 - 21 mg/dL 01/15/2025 10:32 PM EDT [facility] Creatinine, Plasma 0.78 0.70 - 1.20 mg/dL 01/15/2025 10:32 PM EDT [facility] BUN/Creatinine Ratio 18 01/15/2025 10:32 PM EDT [facility] Sodium, Plasma 134(L) 136 - 145 mmol/L 01/15/2025 10:32 PM EDT [facility] Potassium, Plasma 4.6 3.6 - 4.9 mmol/L 01/15/2025 10:32 PM EDT [facility] Chloride, Plasma 97 97 - 107 mmol/L 01/15/2025 10:32 PM EDT [facility] CO2, Plasma 24 22 - 29 mmol/L 01/15/2025 10:32 PM EDT [facility] Anion Gap 13 6 - 16 mmol/L 01/15/2025 10:32 PM EDT [facility] Total Calcium, Plasma 8.7(L) 8.9 - 10.2 mg/dL 01/15/2025 10:32 PM EDT [facility] Total Protein 6.5 6.3 - 7.9 g/dL 01/15/2025 10:32 PM EDT [facility] Albumin, Plasma 3.7 3.5 - 5.2 g/dL 01/15/2025 10:32 PM EDT [facility] AST, Plasma 23 10 - 50 U/L 01/15/2025 10:32 PM EDT [facility] ALT, Plasma 52(H) 10 - 50 U/L 01/15/2025 10:32 PM EDT [facility] Alkaline Phosphatase, Plasma 124(H) 40 - 115 U/L 01/15/2025 10:32 PM EDT [facility] Total Bilirubin, Plasma 0.3 0.2 - 1.1 mg/dL 01/15/2025 10:32 PM EDT [facility] eGFRcr 119.3 mL/min/1.7 3m*2 01/15/2025 10:32 PM EDT [facility] Comment:Reported eGFRcr in m L/min/1.73m2 is based the CKD-EPI 2020 equation that does not use a race coefficient. Blood Venous blood specimen / Unknown Venipuncture / Unknown 01/15/2025 10:11 PM EDT 01/15/2025 10:12 PM EDT Gus Vigil CHILD DEVELOPMENT INSTRUCTOR LAB BLOOD ORDERABLES Fin al Result [facility] [address] [place] [address] * PT-INR (01/15/2025 10:11 PM EDT) Prothrombin Time 12.5 12.0 - 14.3 sec 01/15/2025 10:28 PM EDT [facility] INR 1.0 0.9 - 1.1 01/15/2025 10:28 PM EDT [facility] Blood Venous blood specimen / Unknown Venipuncture / Unknown 01/15/2025 10:11 PM EDT 01/15/2025 10:12 PM EDT Narrative [facility] - 01/15/2025 10:28 PM EDT OPTIMAL INR RANGES FOR PATIENT ON ORAL ANTICOAGULANT THERAPY Prevention of venous thromboembolism INR 2.0 to 3.0 In patients with heart disease: Atrial fibrillation INR 2.0 to 3.0 Valvular heart disease INR 2.0 to 3.0 Tissue heart valves INR 2.0 to 3.0 Mechanical prosthetic valves INR 2.5 to 3.5 Prevention of recurrent NV INR 2.5 to 3.5 Gus Vigil APRN LAB BLOOD ORDERABLES Fin al Result [facility] [address] [place] [address] * (ABNORMAL) CBC w/diff (01/15/2025 10:11 PM EDT) [facility] WBC Count 19.24(H) 3.70 - 10.30 10*3/uL LAB HEMATOLOGY METHOD 01/15/2025 10:14 PM EDT [facility] RBC Count 4.33(L) 4.60 - 6.10 10*6/uL LAB HEMATOLOGY METHOD 01/15/2025 10:14 PM EDT [facility] HGB 13.0(L) 13.7 - 17.5 g/dL LAB HEMATOLOGY METHOD 01/15/2025 10:14 PM EDT [facility] HCT 39.3(L) 40.0 - 51.0 % LAB HEMATOLOGY METHOD 01/15/2025 10:14 PM EDT [facility] Platelet Count 383(H) 155 - 369 10*3/uL LAB HEMATOLOGY METHOD 01/15/2025 10:14 PM EDT [facility] MCV 91 79 - 98 fL LAB HEMATOLOGY METHOD 01/15/2025 10:14 PM EDT [facility] MCH 30.0 26.0 - 32.0 pg LAB HEMATOLOGY METHOD 01/15/2025 10:14 PM EDT [facility] MCHC 33.1 30.7 - 35.5 g/dL LAB HEMATOLOGY METHOD 01/15/2025 10:14 PM EDT [facility] RDW 13.2 11.5 - 14.5 % LAB HEMATOLOGY METHOD 01/15/2025 10:14 PM EDT [facility] MPV 9.2 8.8 - 12.5 fL LAB HEMATOLOGY METHOD 01/15/2025 10:14 PM EDT [facility] nRBC 0.0 <=0.0 per 100 WBCs LAB HEMATOLOGY METHOD 01/15/2025 10:14 PM EDT [facility] Differential Type Automated LAB HEMATOLOGY METHOD 01/15/2025 10:14 PM EDT [facility] Neutrophils % 78 % LAB HEMATOLOGY METHOD 01/15/2025 10:14 PM EDT [facility] Lymphocytes % 12 % LAB HEMATOLOGY METHOD 01/15/2025 10:14 PM EDT [facility] Monocytes % 8 % LAB HEMATOLOGY METHOD 01/15/2025 10:14 PM EDT [facility] Eosinophils % 1 % LAB HEMATOLOGY METHOD 01/15/2025 10:14 PM EDT [facility] Basophils % 0 % LAB HEMATOLOGY METHOD 01/15/2025 10:14 PM EDT [facility] Immature Granulocytes % 1 % LAB HEMATOLOGY METHOD 01/15/2025 10:14 PM EDT [facility] Neutrophils Absolute 15.11(H) 1.60 - 6.10 10*3/uL LAB HEMATOLOGY METHOD 01/15/2025 10:14 PM EDT [facility] Lymphocytes Absolute 2.34 1.20 - 3.90 10*3/uL LAB HEMATOLOGY METHOD 01/15/2025 10:14 PM EDT [facility] Monocytes Absolute 1.46(H) 0.30 - 0.90 10*3/uL LAB HEMATOLOGY METHOD 01/15/2025 10:14 PM EDT [facility] Eosinophils Absolute 0.13 0.00 - 0.50 10*3/uL LAB HEMATOLOGY METHOD 01/15/2025 10:14 PM EDT [facility] Basophils Absolute 0.06 0.00 - 0.10 10*3/uL LAB HEMATOLOGY METHOD 01/15/2025 10:14 PM EDT [facility] Immature Granulocytes Absolute 0.14(H) 0.00 - 0.06 10*3/uL LAB HEMATOLOGY METHOD 01/15/2025 10:14 PM EDT [facility] Blood Venous blood specimen / Unknown Venipuncture / Unknown 01/15/2025 10:11 PM EDT 01/15/2025 10:12 PM EDT Narrative [facility] - 01/15/2025 10:14 PM EDT Therapeutic decision making should be based on absolute values, rather than percentages. Gus Vigil [employer] LAB BLOOD ORDERABLES Fin matt Result [facility] [address] [place] [address] documented in this encounter Visit Diagnoses Diagnosis Cellulitis of leg, left- Primary Sepsis following procedure, initial encounter ([facility]) Cellulitis of left lower extremity Acute postoperative pain Other acute postoperative pain Closed fracture of left tibial plateau with routine healing, subsequent encounter Cellulitis of leg, left Cellulitis of left lower extremity Cellulitis of left lower extremity Tibial plateau fracture, left, closed, initial encounter Surgical site infection documented in this encounter Admitting Diagnoses Diagnosis Cellulitis of leg, left Cellulitis of left lower extremity Sepsis following procedure ([facility]) Closed fracture of left tibial [...] Transfer Provider - Reason: Patient in procedure)121 ([employer] [facility] Unhold - Provider: Automatic Transfer Provider)192 (Given - Provider: Taryn Miranda RN) 0650 (Given - Provider: Taryn Miranda RN)212 (Given - Provider: Taryn Miranda RN) 0620 [...] Transfer Provider - Reason: Patient in procedure)121 ([facility] Unhold - Provider: Automatic Transfer Provider)1630 (Not [...] no bowel movement for 48 hours 0924 ([facility] Hold - Provider: Automatic Transfer Provider - Reason: Patient in procedure)1216 ([facility] Unhold - Provider: Automatic Transfer Provider) naloxone (Narcan) injection 0.08 mg 0.08 mg, Intravenous, As needed, Starting on Sneha 01/16/25 at 0753, Until Mon01/22/25 at 1922, Routine, respiratory depression, every 2 minutes 0924 ([facility] Hold - Provider: Automatic Transfer Provider - Reason: Patient in procedure)121 ([employer] [facility] Unhold - Provider: Automatic Transfer Provider) ondansetron (Zofran) injection 4 mg (COMPLETED) 4 mg, Intravenous, Once as needed, 1 dose, Starting on 01/20/25 at 1047, Until Mon01/20/25 at 1142, Routine, Recovery (Phase I only), nausea, vomiting 1142 (Given - Provider: Nanda Salas, SHEREEN) ondansetron ODT (Zofran-ODT) disintegrating tablet 4 mg 4 mg, Oral, Every 6 hours PRN, Starting on Sneha 01/16/25 at 0753, Until Mon01/22/25 at 1922, Routine, nausea, vomiting 0924 ([facility] Hold - Provider: Automatic Transfer Provider - Reason: Patient in procedure)121 ([facility] Unhold - Provider: Automatic Transfer Provider) [email or web address] [...] documented as of this encounter Care Teams Color Consultant Relationship Specialty Start Date End Date Renetta Pardo APRN [address] [place] [address] [address] [place] [address] PCP - General 09/09/23 02/16/25 documented as of this encounter
--- OUTSIDE RECORDS SUMMARY | 2025-01-18 09:04 | XMS_ITS | Encounter Summary ---
Author Organization Healthcare Address [address] [place] [address] Care Team Providers Care Erp Analyst Name Role Phone Renetta Pardo APRN Primary Care Provider [phone] [phone] Reason for Visit * Auth/Cert (Routine) Specialty Diagnoses / Procedures Referred By Adalid t Referred To Contact Diagnoses Acute postoperative pain Cellulitis of leg, left Cellulitis of left lower extremity Sepsis following procedure, initial encounter ([facility]) recent LLE surgery @ now with cellulitis Sachin Garza MD [address] [facility] [address] [place] [address] Phone: tel: fax: PAV H Inpatient [address] [place] [address] Phone: tel: Referral ID Status Reason Start Date Expiration Date Visits Re quested Visits Authorized [id number] 1 1 Encounter Details Date Type Department Care Team (Late st Contact Info) Description 01/18/2025 9:04 AM EDT Anesthesia Event PAV A OPERATING ROOM [address] [place] [address] Mark Little MD [address] [place] [address] [place] Arriaga, [address] [place] [phone] Anesthesia Record Procedure Summary Procedure Name Responsible [...] place to sleep or slept in a senior living (including now)? No 09/12/2023 Humiliation, Afraid, Rape, [...] any time in the past 12 m [facility], were you homeless or living in a senior living (including now)? No 01/17/2025 CAGE ASSESSMENT Answer [...] drink first t traci in the morning (EYE-CASE AIDE) to steady your nerves or to get [...] portions of the procedure(s) and immediately available [facility] services the entire duration. See [...] portions of the procedure(s) and immediately available [facility] services the entire duration. See resident note for details. * Anesthesia Preprocedure Evaluation - [place] Arriaga DO - 01/18/2025 8:18 AM EDT Patient: Panda Machado Procedure Information Date/Time: 01/18/25900 Procedure: INCISION AND DRAINAGE, LOWER EXTREMITY (Left: Leg Lower) - supine, berch w/ ext, cystotubing, cx cups, soft tissue set, curettes, 6L NS [facility] / [place] OR Surgeons: Ye Navarro MD 35 M [...] Hospital Encounter PAV A OPERATING ROOM [address] [place] [address] [place] Hayes MD [address] [facility] [address] [place] [address] 02/21/2025 12:20 PM EDT - 02/21/2025 2:15 PM EDT Surgery PAV A OPERATING ROOM [address] [place] [address] [place] Hayes MD [address] [place] [address] INCISION AND DRAINAGE, LOWER EXTREMITY [37301 (CPT )] 03/03/2025 1:00 PM EDT Office Visit [facility] [address] [facility] [place] [address] Ary Santiago, PASTE UP COPY CAMERA OPERATOR [address] [facility] [address] [place] [address] 2025 7:50 AM EDT Office Visit [facility] Orthopaedic Surgery & Sports Medicine [address] [place] [address] Stella Brown, PASTE UP COPY CAMERA OPERATOR [address] [place] [address] Scheduled Procedures Name Priority Associated Diagnoses Date/Ti me INCISION AND DRAINAGE, LOWER EXTREMITY Tibial plateau fracture, left, closed, initial encounter Surgical site infection 02/21/2025 12:20 PM EDT documented as of this encounter Procedures Procedure Name Priority Date/Time Associated Diagnosis Comments PB ANESTHESIA PLACEHOLDER Routine 01/18/2025 9:14 AM EDT [place] AN ELECTIVE ENDOTRACHEAL AIRWAY Routine 01/18/2025 9:14 AM EDT ANESTHESIA PERIPHERAL IV PLACEMENT Routine 01/18/2025 9:13 AM EDT documented in this encounter Results * [place] AN ELECTIVE ENDOTRACHEAL AIRWAY, PB ANESTHESIA PLACEHOLDER [...] * Peripheral IV (01/18/2025 9:13 AM EDT) Narrative Mark Little MD - 01/18/2025 9:13 AM EDT Mark [...] on 01/18/25 at 0901, Until 01/18/25 at 112, Routine, Anesthesia Intraprocedure Given 01/18/2025 9:01 AM EDT 2 mg ondansetron (Zofran) injection Intravenous, As needed, Starting on 01/18/25 at 0939, Until 01/18/25 at 112, Routine, Anesthesia Intraprocedure Given 01/18/2025 9:39 AM [...] documented as of this encounter Care Teams Erp Analyst Relationship Specialty Start Date End Date Renetta Pardo APRN [address] [place] [address] [place] [address] PCP - General 09/09/23 02/16/25 documented as of this encounter
--- OUTSIDE RECORDS SUMMARY | 2025-01-20 09:49 | XMS_ITS | Encounter Summary ---
Author Organization Healthcare Address [address] [place] [place] [address] Care Team Providers Care Regulatory Compliance Engineer Name Role Phone Renetta Pardo APRN Primary Care Provider +1 [phone] Reason for Visit * Auth/Cert (Routine) Specialty Diagnoses / Procedures Referred By Adalid t Referred To Contact Diagnoses Acute postoperative pain Cellulitis of leg, left Cellulitis of left lower extremity Sepsis following procedure, initial encounter (CMS/[facility]) recent LLE surgery @ now with cellulitis Sachin Garza MD [address] [place] [address] Phone: tel: fax: P[facility] H Inpatient [address] [place] [address] Phone: tel: Referral ID Status Reason Start Date Expiration Date Visits Re quested Visits Authorized [id number] 1 1 Encounter Details Date Type Department Care Team (Late st Contact Info) Description 01/20/2025 9:49 AM EDT Anesthesia Event [facility] [address] [place] [address] Filemon Matute MD [address] [place] [address] Gladis Tejada APRN [address] [place] [address] [phone] (work) Anesthesia Record Procedure Summary Procedure Name [...] place to sleep or slept in a assisted (including now)? No 09/12/2023 Humiliation, Afraid, Rape, [...] any time in the past 12 m [facility], were you homeless or living in a assisted (including now)? No 01/17/2025 CAGE ASSESSMENT Answer [...] drink first t traci in the morning (EYE-I&C TECHNICIAN) to steady your nerves or to get rid of a hangover? 0 09/10/2023 CAGE Questionnaire Score 0 024 Utilities Answer Date Recorded In the past 12 months has th e electric, gas, oil, or water [employer] threatened to shut off services in your [...] portions of the procedure(s) and immediately available [facility] services the entire duration. See [...] portions of the procedure(s) and immediately available [facility] services the entire duration. See resident note for details. * Anesthesia Preprocedure Evaluation - Filemon Matute MD - 01/20/2025 7:12 AM EDT Patient: Panda Machado Procedure Information Date/Time: 01/20/25 1020 Procedure: INCISION AND DRAINAGE, LOWER EXTREMITY (Left: Leg Lower) Location: [facility] 1 / [place] Surgeons: Ye Navarro MD [facility] Panda Machado is a 34 [...] Normal Ventricular Rate 92 Atrial Rate 92 [place] Interval 122 QRSD Interval 102 QT Interval 350 QTC Interval 432 P [place] 56 R [place] 44 T Wave [place] 57 Diagnosis Normal sinus rhythm Diagnosis Normal [...] LEG SURGERY Left [3] Allergies Allergen Reactions [place] Hives [4] acetaminophen, 1,000 mg, Oral, q6h [...] EDT Hospital Encounter [facility] [address] [place] [phone] Lawrence Hayes MD [address] [place] [address] 02/21/2025 12:20 PM EDT - 02/21/2025 2:15 PM EDT Surgery [facility] [address] [place] [address] Lawrence Hayes MD [address] [facility] [address] [place] [address] INCISION AND DRAINAGE, LOWER EXTREMITY [28259 (CPT )] 03/03/2025 1:00 PM EDT Office Visit [facility] [address] [place] [id number] Ary Santiago, BARBER INSTRUCTOR [address] [facility] [address] [place] [address] 2025 7:50 AM EDT Office Visit [facility] Orthopaedic Surgery & Sports Medicine [address], [address] [place] [address] Stella Brown, BARBER INSTRUCTOR [address] [place] [address] Scheduled Procedures Name Priority Associated Diagnoses Date/Ti me INCISION AND DRAINAGE, LOWER EXTREMITY Tibial plateau fracture, left, closed, initial encounter Surgical site infection 02/21/2025 12:20 PM EDT documented as of this encounter Procedures Procedure Name Priority Date/Time Associated Diagnosis Comments ANESTHESIA PERIPHERAL IV PLACEMENT Routine 01/20/2025 10:10 AM EDT PB ANESTHESIA PLACEHOLDER Routine 01/20/2025 9:56 AM EDT MN AN ELECTIVE ENDOTRACHEAL AIRWAY Routine 01/20/2025 9:56 AM EDT documented in this encounter Results * Peripheral IV (01/20/2025 10:10 AM EDT) Narrative Filemon Matute MD - 01/20/2025 10:10 AM EDT Filemon Matute MD 01/20/2025 10:25 AM Peripheral IV Date/Time: 01/20/2025 10:10 AM Placement Needle size: 18 G Location: hand Site prep: alcohol Technique: anatomical landmarks Attempts: 1 Filemon Matute MD ANESTHESIA ORDERABLES Final Res ult * MN AN ELECTIVE ENDOTRACHEAL AIRWAY, PB [...] documented as of this encounter Care Teams Regulatory Compliance Engineer Relationship Specialty Start Date End Date Renetta Pardo APRN [address] [place] [address] Dr Garcia [address] [place] [address] PCP - General 09/09/23 02/16/25 documented as of this encounter
--- OUTSIDE RECORDS SUMMARY | 2025-01-20 09:52 | XMS_ITS | Encounter Summary ---
Author Organization Healthcare Address [address] [place] [address] Care Team Providers Care Gis Administrator Name Role Phone Renetta Pardo APRN Primary Care Provider [phone] Reason for Visit * Reason Comments Post-op Problem * Auth/Cert (Routine) Specialty Diagnoses / Procedures Referred By Adalid t Referred To Contact Diagnoses Acute postoperative pain Cellulitis of leg, left Cellulitis of left lower extremity Sepsis following procedure, initial encounter ([facility]) recent LLE surgery @ now with cellulitis Sachin Garza MD [address] [address] Phone: tel: fax: [facility] H Inpatient [address] [place] [address] Phone: tel: Referral ID Status Reason Start Date Expiration Date Visits Re quested Visits Authorized [id number] 1 1 Encounter Details Date Type Department Care Team (Late st Contact Info) Description 01/20/2025 9:52 AM EDT - 01/20/2025 11:57 AM EDT Surgery [facility] A OPERATING ROOM [address] [place] [address] Bob Nava MD [id number] [place] [address] INCISION AND DRAINAGE, LOWER EXTREMITY Surgery Details Date/Time Status Location OR Service Patient Class Case Class Case Type Trauma Case? 01/20/2025 9:52 AM Posted [facility] OR [facility]UMANA OR 05 Orthopedic Surgery Inpatient E-Electi ve Panel 1 Procedure LRB Anes Op Region Wound Class Comments INCISION AND DRAINAGE, LOWER EXTREMITY Left General L eg Lower Surgeon Surgeon Role Service Panel Bob Nava MD Primary Orthopedic Surgery 1 Emely Giron MD Resident - Assisting 1 Special Needs [...] first t traci in the morning (EYE-FISHERIES INSPECTOR) to steady your nerves or to get [...] Sign Reading Time Taken Comments Blood Pressure 112/77 01/20/2025 11:45 AM EDT Pulse 90 01/20/2025 11:45 AM EDT Temperature 36.7 C (98.1 F) 01/20/2025 11:30 AM EDT Respiratory Rate 11 01/20/2025 11:45 AM EDT Oxygen Saturation 98% 01/20/2025 11:45 AM EDT Inhaled Oxygen Concentration - - Weight 148 kg (325 lb 6.4 oz) 01/15/2025 9:33 PM EDT Height 190.5 cm (6' 3 ) 01/15/2025 9:33 PM EDT Body Mass Index 40.67 01/15/2025 9:33 PM EDT documented in this encounter Functional Status * Calculated C-SSRS Risk Score (Lifetime/Recent) Answer Date of Assessment Author No Risk Indicated 01/20/2025 9:26 AM EDT Razia Brambila RN * Question Answer Date of Assessment Author 1. Wish to be (Past 1 Month) No 025 9:26 AM EDT Razia Brambila RN 2. Non-Specific Active Suici mike Thoughts (Past 1 Month) No 01/20/2025 9:26 AM EDT Judy Brambila RN 6. Suicidal Behavior (Lifetime) No 9:26 AM EDT Razia Brambila RN documented as of this encounter Medications [...] per institution/faci lity policy. 1 each 01/22/2025 ibuprofen 400 MG tablet Take 1 tablet [...] Network * Leigh Muller RN - 01/22/2025 4:21 PM EDT Images from the original note were not included. 30441 Flushing Your PICC Line at Home Your [...] soap and water, use an alcohol-based hand production support supervisor. The gel should have at least 60% [...] PICC. Last Reviewed Date: 2024 00:00:00 ?? 6176-9712 [employer]. All rights reserved. This information is not intended as a substitute for professional medical care. Always follow your healthcare professional's instructions. * Rosaura [facility] - Leigh Rg RN - 01/22/2025 4:21 PM EDT Images from the original note were not included. 62256 Discharge Instructions: Changing the Dressing on Your [...] damage Last Reviewed Date: 2024 00:00:00 ?? 8980-6777 [employer]. All rights reserved. This information is not [...] the video go to this web address: [email or web address] Or, scan this QR code with your smart phone ?? [facility] * Rosaura [facility] - Leigh Rg RN - 01/22/2025 4:20 PM EDT Images from the original note were not included. 92141 Understanding Post Sepsis Syndrome (PSS) Sepsis is [...] infections Last Reviewed Date: 2022 00:00:00 ?? 7364-1110 [employer]. All rights reserved. This information is not intended as a substitute for professional medical care. Always follow your healthcare professional's instructions. * Rosaura Eason - Leigh Rg RN - 01/22/2025 4:20 PM EDT Images from the original note were not included. [id number] Buckle (Torus) Fracture of a Leg Your [...] you can dry it with a hair clipper power on the cool setting. ? Put an [...] doctor Last Reviewed Date: 2024 00:00:00 ?? 1303-6578 [employer]. All rights reserved. This information is not intended as a substitute for professional medical care. Always follow your healthcare professional's instructions. * Rosaura [facility] - Leigh Rg RN - 01/22/2025 4:20 PM EDT Images from the original note were not included. 52621 Discharge Instructions for Cellulitis You have been [...] are in pain. Ask what kind of slkg-een-hclsxmy medicine you can take for pain. ? [...] Vomiting. Last Reviewed Date: 2024 00:00:00 ?? 4866-6347 [employer]. All rights reserved. This information is not intended as a substitute for professional medical care. Always follow your healthcare professional's instructions. * Discharge Summary - Mauricio Mondragon MD - 01/22/2025 4:16 PM EDT Hospitalization Admit Date/Time: 01/15/2025 9:32 PM Admitting Attending: Sachin Garza Discharge Date: 01/22/25 Discharge Attending Physician: Sachin Garza MD PCP name and Address: Renetta Pardo CERTIFIED COURT/MEDICAL INTERPRETER [address] [place] [address] Dr [id number] Referring provider name and address: Maldonado Luciano PA [address] [place], [place] [address]y [address] [place] [address] Chief Concern, Brief History of Present Illness, and Hospital Course Patient arrived to [facility] on 01/15/25 with concern for [...] medications were sent to [facility] -[place], [place] - [address], [facility] [address] DAPTOmycin injection These medications were sent to [facility] - [place], [place] - [address] [facility] [address] oxyCODONE 5 MG immediate release capsule Discharge Diagnosis Medical Problems Active and Resolved Hospital Problems Hospital Closed fracture of left tibial plateau Overview Addendum 09/16/2023 1:42 PM by Rolanda Adams APRN, KALYANI ORT consulted TROM in place WB per ORT 09/15: ORIF L tibial plateau fx Follow up with Dr. Nava on 10/04 * (Principal) Cellulitis of leg, left Sepsis following procedure ([facility]) Cellulitis of left lower extremity [...] Time Provider Department Center 01/27/2025 11:00 AM [facility] TURN MACHINE OPERATOR [facility] 02/03/2025 8:10 AM Lawrence Hayes MD [facility] 02/11/2025 1:00 PM Ary Santiago APRN [facility] [place] 03/03/2025 1:00 PM Ary Santiago APRN [facility] [place] Test Results Pending At Discharge Pending Labs [...] AM EDT * Nursing Note - Camden Vital RN - 01/22/2025 12:00 PM EDT Orthopedic Transition Nurse Note General: Spoke with: Patient, Family, and Bedside legal operations manager and Interventions: Assessed: Dressing Dressing Interventions: CDI [...] assess 01/21/25 08 Closure Unable to assess 01/21/25799 Drainage Amount [...] please contact the Orthopedic Transition Nurse at [phone] Monday through Monday 8:00 am to 2:30 pm. If you feel your concern is a medical emergency please call 911 immediately * Progress Notes - Anna Elam RN - 01/22/2025 9:28 AM EDT Case Management Discharge Note Ravin Ribeiro 34 y.o. male CSN: [id number] Admission: 01/15/2025 9:32 PM Primary Problem: Cellulitis of leg, left Primary Consulting Utility Forester: Primary Caregiver: Self Assistance Available at Discharge: Current Outpatient/Agency/Support Group: DME Availability of Care Givers (#Hours): 24 hours Family/Consulting Utility Forester(s) Willingness Assessed to care for patient at home: Yes Family/Consulting Utility Forester(s) Readiness Assessed to care for patient [...] Choice of Community Agency(s): [facility] Patient/Family Anticipated Services at Transition: Patient/Family Anticipated Services at Transition: outpatient care DME/Equipment Needed after Discharge: Equipment Currently Used at Home: walker, rolling, commode chair, wheelchair, manual Equipment Needed After Discharge: walker, rolling, commode chair Readmission Within the Last 30 Days: Readmission Within the Last 30 Days: other (see comments) (cellulitis) Medicare Documentation: Medicare Second Notice?: No (pt has [place] medicaid) Follow-up: No follow-up provider specified. Discharge Transportation: Transportation Anticipated: family or friend will provide Transportation Home at Discharge: Family/Friend will Provide Has discharge transport been arranged?: No Follow Up Transport: Transportation Needed to Follow up Appoinments: Family/Friend will Provide Additional Comments: Per primary provider, pt is medically ready to discharge home with standard OPAT. PICC in place. Pt will follow up at [facility] for weekly PICC care and labs. First appointment is scheduled for 01/27 at 11 AM. Pt's family will be able to provide assistance and transportation. [facility] will complete teaching today and deliver IV ABX to bedside around 3 PM. Pt and S/O is aware and agreeable to discharge POC. [facility] [phone] Anna Elam RN * Progress Notes - [...] Canseco MD PGY-1, Orthopaedic Surgery [facility] Pager: [phone] Orthopaedic Recon/Spine/Foot and Ankle Service Pager: [phone] Cosigned by Lawrence Hayes MD at 01/22/2025 [...] Mondragon MD Orthopaedic Surgery PGY-1 [facility] Pager: [phone] Orthopaedic Recon/Spine/Foot and Ankle Service Pager: [phone] Personal Pager: [phone] Cosigned by Lawrence Hayes MD at 01/22/2025 1:06 PM EDT * Procedures - Norma Miranda RN - 01/21/2025 7:01 PM EDTAssociated Order(s): Insert PICC line Insert PICC line Date/Time: 01/21/2025 7:01 PM Performed by: Norma Miranda RN Authorized by: Sachin Garza MD Riley Protocol: Verbal consent obtained?: Yes Written consent [...] preference Patient position: Supine Catheter Lot #: [id number] Catheter regional business development manager: [employer] PowerPICC Solo Catheter placed: Single lumen Catheter [...] medical record. * Progress Notes - Kina Gillis RN - 01/21/2025 3:28 PM EDT [facility] and for for possible home IV antibiotic infusion. There was no accepting HH companies in patient's area. CM spoke with patient and he is agreeable to either go to his local hospital [facility] or come to [facility] in [place] for his weekly PICC care/labs if needed. * Nursing Note - Camden Vital RN - 01/21/2025 1:45 PM EDT Orthopedic Transition Nurse Note General: Spoke with: Patient, Family, and Bedside legal operations manager and Interventions: Assessed: Dressing Dressing Interventions: CDI [...] 0800 Dressing Status Open to air 01/21/25 08 [...] please contact the Orthopedic Transition Nurse at [phone] Monday through Monday 8:00 am to 2:30 pm. If you feel your concern is a medical emergency please call 911 immediately * Steff Odell RN - 01/21/2025 11:57 AM EDT Images from the original note were not included. [id number] PICC Line Care PICC stands for peripherally [...] arm Last Reviewed Date: 2024 00:00:00 ?? 0439-6800 [employer]. All rights reserved. This information is not intended as a substitute for professional medical care. Always follow your healthcare professional's instructions. * Steff Odell RN - 01/21/2025 11:56 AM EDT Images from the original note were not included. [id number] * Steff Odell RN - 01/21/2025 11:56 AM EDT Images from the original note were not included. [id number] * Steff Odell RN - 01/21/2025 11:56 [...] your house or a medical facility. The caseworker intake/social science professor will setthat up based on your insurance. [...] or during weekends/[place] holidays, call the paging waste water operator at . Ask for the infectious disease fellow loss prevention agent. Call the clinic if you have any of these: ? Fevers greater than 100.5??F ? An allergic reaction, such as rash ? Nausea, vomiting, or diarrhea ? New or returning redness near the IV line ? Redness, pain, swelling, or pus around the IV line * Rosaura RushDILLON - Steff Paz RN - 01/21/2025 11:56 AM EDT Images from the original note were not included. 93862 Flushing Your PICC Line at Home Your [...] soap and water, use an alcohol-based hand production support supervisor. The gel should have at least 60% [...] PICC. Last Reviewed Date: 2024 00:00:00 ?? 7548-9664 [employer]. All rights reserved. This information is not intended as a substitute for professional medical care. Always follow your healthcare professional's instructions. * Anthonyjose de jesus Victor ManuelDILLON - Steff Paz RN - 01/21/2025 11:56 AM EDT Images from the original note were not included. [id number] Daptomycin Injection Brand Name(s): Cubicin??, Cubicin RF??; [...] be awakened, immediately call emergency services at 261. What OTHER INFORMATION should I know? Keep [...] of all of the prescription and nonprescription (rtfl-uht-xagyspn) medicines you are taking, as well as [...] or pharmacist about specific clinical use. The [place] [employer] represents that the information provided hereunder was formulated with a reasonable standard of care, and in conformity with professional standards in the field. The [place] [employer] makes no [...] drug's actions, uses and side effects. The [place] [employer] does not endorse or recommend the use of any drug.The information is not a substitute for medical care. AHFS?? Patient Medication Information?. ?? Copyright, 2023. The [place] [employer]-System Pharmacists??, [address], [address], [place], [place]. All Rights Reserved. Duplication for commercial use must be authorized by [facility]. Selected Revisions: July 28, 2019. AHFS?? Patient Medication Information?. ?? Copyright, 2024 * [facility] - Steff Paz RN - 01/21/2025 11:56 AM EDT Images from the original note were not included. 60402 Discharge Instructions: Caring for Your Peripherally Inserted [...] damage. Last Reviewed Date: 2024 00:00:00 ?? 1432-8576 The [employer]. All rights reserved. This information is not intended as a substitute for professional medical care. Always follow your healthcare professional's instructions. * Anthonyjose de jesus RushDILLON - Steff Paz RN - 01/21/2025 11:56 AM EDT Images from the original note were not included. 89467 Central Line Infections You need a central [...] water. Or they use an alcohol-based hand production support supervisor containing at least 60% alcohol. ? Using [...] (warm or cold), and use alcohol-based hand production support supervisor with at least 60% alcohol as directed. To clean your hands well,follow the guidelines on this sheet. Visitors should wash their hands well when they arrive and when they leave. ? Make sure healthcare staff and your visitors clean their hands. They should use soap and clean, running water or an alcohol-based hand production support supervisor before and after checking the line. Don?t [...] good choice for cleaning your hands. The production support supervisor should have at least 60% alcohol. Note that some germs can't be killed by alcohol. Your healthcare team can answer any questions you have about when to use a hand production support supervisor, or when it?s better to wash with soap and water. Follow these steps: ? Spread the hand production support supervisor in the palm of one hand. (Check the package for specific guidelines.) ? Rub your hands together briskly. Clean the backs of your hands, the palms, between your fingers, and up your wrists. ? Rub until the production support supervisor is gone and your hands are completely [...] skin Last Reviewed Date: 2023 00:00:00 ?? 2666-3723 The [employer]. All rights reserved. This information is not [...] Single Lumen PICC Patient Specific Outpatient Circumstances: [address] [place] [address] Family Support: Extended Emergency Contact Information Primary Emergency Contact: Hayley Buenrostro Address: [address] [place] [address] Mobile Relation: Significant Other Preferred language: [place] Family Readiness Support Assistant needed? No Secondary Emergency Contact: Jenny Buenrostro Address: [address] [place] [address] [place] Relation: Mother Contact information: Ravin Ribeiro [phone] (home) Outpatient services (including home infusion, home health, facility referral: See recent [facility] case management/social work note for finalization of services ID follow up appointment: Future Appointments Date Time Provider Department Center 02/03/2025 8:10 AM [address] MD [address] [...] via secure chat or staff messaging in [facility]. Patient and family will need to be [...] presentation. He presented to [facility] wherehe was febrile to 101.3F. Upon [...] PA-C Division of Infectious Diseases Available on [employer] Chat History, assessment, and plan discussed with [...] labs to: ID OPAT Team Fax #: [phone] Appointments: Ary Santiago APRN on 02/11 at 1PM and 03/03 at 1PM [facility]: [address] [place] [address] (Select Option 3 for IV Antibiotic / PICC line related issues) For questions regarding OPAT prior to discharge, reach out to the OPAT team via [employer] Secure Chat (Group: OPAT Referral Team). For all questions regarding OPAT after discharge should be directed to the OPAT Team at (Select Option 3 for IV Antibiotics/PICC Issues) between 8am-5pm. After 5 pm, or during weekends/ holidays, please call the paging waste water operator at to reach the on-call ID [...] Tyrone Howard MD 1,000 mg at 01/21/25 06 bisacodyl (Dulcolax) suppository 10 mg 10 mg [...] Gustavo Hightower MD 1 patch at 01/21/25 09 ondansetron ODT (Zofran-ODT) disintegrating tablet 4 mg [...] at 01/18/25 1133 [2] Allergies Allergen Reactions [place] Hives * Consults - Delma Ortiz - 01/21/2025 10:00 AM EDT Pastoral Care Note: Patient was appreciative of maintenance data analyst's visit and expressed gratitude to the care team. he said family is on their way to him. Referral From: Account Support Manager Initiated Pastoral Care Provided For: Patient Patient Profile: Spiritual Assessment: Support Systems/ Spiritual Resources: Treasure, Sense of Peace, Trust, Gratitude Spiritual Needs: Emotional support, Spiritual ritual Spiritual Issues: Discharge Interventions: Pastoral Care Outcomes: Patient Outcomes: Appreciative of Account Support Manager Support, Expresses acceptance, Gratitude Cosigned by Macrina Dumont at 01/21/2025 6:24 PM EDT Associated attestation - Macrina Dumont - 01/21/2025 6:24 PM EDT This is to attest maintenance data analyst internship chart note has been reviewed and okayed. [...] to ambulate in room/hallway with family and medical staff director while remains inpatient. Patient demonstrates no further [...] Prevent or Manage Infection Flowsheets (Taken 01/20/2025 1646) Infection Management: aseptic technique maintained Fever Reduction/Comfort [...] Agree with above assessment and evaluation from resident/GAUGER CHIEF DELIVERY. * Progress Notes - Anna Elam RN - 01/20/2025 10:48 AM EDT Case Management Adult Progress Note Ravin Ribeiro 34 y.o. male CSN: [id number] Admission: 01/15/2025 9:32 PM Primary Problem: Cellulitis of leg, left Anticipated Discharge Date: TBD Pt to OR today for repeat I&D on left knee. Pt has worsening NORMAN and team wants to repeat AM labs. Final ID recs and OPAT eval are pending. Referral sent to [facility] and HH today. Pt's medicaid may be a potential barrier to HH. CM will continue to assist with discharge POC. Anna Elam RN * Op Note - Bob Nava MD - 01/20/2025 10:26 AM EDT Operative Note Date: 01/20/25 Location: [facility] OR Name: Ravin Ribeiro, : 1990, Diagnoses: Pre-op Diagnosis Closed fracture of left tibial plateau with routine healing, subsequent encounter Left proximal tibia (knee region) deep abscess Post-op Diagnosis Closed fracture of left tibial plateau with routine healing, subsequent encounter Left proximal tibia (knee region) deep abscess Procedure(s): Incision and drainage of left knee deep abscess Attending Surgeon(s): * Bob Nava - Primary Gift Manager(s): * Emely Giron MD - Resident - [...] presentation. He presented to [facility] was febrile to 101.3F. Upon [...] PA-C Division of Infectious Diseases Available on [employer] Chat History, assessment, and plan discussed with [...] Gustavo Hightower MD [2] Allergies Allergen Reactions [place] Hives * Consults - Ricco Howard RN [...] Canseco MD PGY-1, Orthopaedic Surgery [facility] Pager: [phone] Orthopaedic Recon/Spine/Foot and Ankle Service Pager: [phone] Cosigned by Sachin Garza MD at 01/20/2025 [...] labs on 01/20. Pharmacy will continue to followJaqueline PharmD 01/19/2025 1:14 PM * Progress Notes - Oma Zamora - 01/19/2025 9:03 AM EDT Occupational Therapy Evaluation Patient Name: Ravin Ribeiro Today's Date: 01/19/2025 OT Discharge Recommendations: Home with assistance Equipment Recommended: Patient owns appropriate equipment History Ravin Ribeiro is 34 y.o. male admitted 01/15/2025 for work-up of Cellulitis of leg, left. Hospital Course 1. Sepsis following procedure, initial encounter ([facility]) 2. Cellulitis of left lower [...] admission Level of Mobility: Ambulatory- community Mobility [place]: Independent gait without device (intermittne use of [...] Mobility Bed Mobility Exam: Scooting/Bridging Level of [place]: Independent Bed Mobility Exam: Supine to Sit Level of [place]: Independent Transfers Transfer Exam: Sit to stand Level of [place]: Stand-by assist Physical/Nonphysical Assist: Verbal Cues Assistive Device: Walker, rolling Transfer Exam: Stand to Sit Level of [place]: Stand-by assist Physical/Nonphysical Assist: Verbal Cues Assistive Device: Walker, rolling Toilet Transfer Level of [place]: Stand-by assist Physical/Nonphysical Assist: Verbal Cues Type of Transfer: Ambulation, To toilet Assistive Device: Walker, rolling, Grab bar Functional Mobility Device: Rolling walker Assistance: Standby assist <Household distance, cuing for safety, pacing activity, RW management, and encouraged L LE WBAT-as permitted per chart (pt reports being used to [facility] for pain management FILM COATER) Balance Postural Appearance Posture: Within Functional Limits [...] admission Level of Mobility: Ambulatory- community Mobility [place]: Independent gait without device (intermittne use of [...] Mobility Bed Mobility Exam: Scooting/Bridging Level of [place]: Independent Bed Mobility Exam: Supine to Sit Level of [place]: Independent Transfers Transfer Exam: Sit to stand Level of [place]: Stand-by assist Physical/Nonphysical Assist: Verbal Cues Assistive Device: Walker, rolling Transfer Exam: Stand to Sit Level of [place]: Stand-by assist Physical/Nonphysical Assist: Verbal Cues Assistive [...] . Standardized Assessments Standardized Assessments Standardized Assessments: [facility] 6-Clicks Mobility Assessment [facility] 6-Clicks Mobility Assessment Difficulty patient has turning [...] 3-5 steps with a railing?: A little [facility] 6-Clicks Mobility Assessment Total : 23 [...] Mondragon MD Orthopaedic Surgery PGY-1 [facility] Pager: [phone] Orthopaedic Recon/Spine/Foot and Ankle Service Pager: [phone] Personal Pager: [phone] Cosigned by Ye Navarro MD at 01/21/2025 [...] AM EDT Operative Note Date: 01/18/25 Location: [facility] OR Name: Ravin Ribeiro, : 1990, Diagnoses: Pre-op Diagnosis Cellulitis of left lower extremity Post-op Diagnosis Cellulitis of left lower extremity Procedure(s): Irrigation and debridement of left medial tibial plateau deep abscess Attending Surgeon(s): * Ye Navarro - Primary Gift Manager(s): * Harvey Swift MD - Resident - [...] this will make NPO @ [place]. Repeat exam01/18 AM with possible OR. Suhail Dueñas MD * Progress Notes - Jeannette Daly, RomaineD - 01/17/2025 3:07 PM EDT Pharmacokinetic Consult [...] General: Spoke with: Patient and Bedside legal operations manager and Interventions: Assessed: Wound 01/01/25 Surgical Open Surgical Incision Pretibial Left;Proximal (Active) Wound Assessment Red 01/15/25 215 Margins Well-defined edges;Attached edges 01/15/252149 Janeth-Wound Assessment [...] please contact the Orthopedic Transition Nurse at [phone] Monday through Monday 8:00 am to 2:30 [...] ] Family [ ] Friend [ ] Family Readiness Support Assistant [X] Medical records HISTORY OF PRESENT ILLNESS: [...] so he presented to [facility] for evaluation. He was febrile to101.3F [...] on day of presentation. He lives in [place] with his , CONSTANZA, and 2 young [...] by mouth 2 times a day. 01/02/25 Suhial Dueñas MD traMADol (Ultram) 50 MG tablet [...] presentation. He presented to [facility] wherehe was febrile to 101.3F. Upon [...] PA-C Division of Infectious Diseases Available on [employer] Chat History, assessment, and plan discussed with ID attending, Dr. Azucena Collado The following complex inpatient infectious disease services were performed today: Complex antimicrobial therapy counseling and treatment [1] History reviewed. No pertinent past medical history. [2] Past Surgical History: Procedure Laterality Date LEG SURGERY Left [3] Allergies Allergen Reactions [place] Hives [4] Current Facility-Administered Medications Medication Dose [...] Note Ravin Ribeiro 34 y.o. male CSN: [id number] Admission: 01/15/2025 9:32 PM Primary Problem: Cellulitis of leg, left Director [employer] reviewed chart and spoke with patient to complete this Initial Case Management Assessment. PCP: Renetta Pardo APRN Emergency Contact: Extended Emergency Contact Information Primary Emergency Contact: Hayley Buenrostro Address: [address] [place] [address] Mobile Relation: Significant Other Preferred language: [place] Islander Family Readiness Support Assistant needed? No Secondary Emergency Contact: Jenny Buenrostro Address: [address] [place] [address] Mobile Relation: Mother Insurance: Primary Visit Coverage Payer Plan Sponsor Code Group Number Group Name [employer]ICA[employer] VELAZQUEZ [employer]OLINA MEDICAID Primary Visit Coverage Subscriber Subscriber ID Subscriber Name Subscriber N Subscriber Address [id number] RAVIN RIBEIRO [id number] [place] [address] Patient information: Primary Caregiver: Self Support System: Immediate family Daily Living Activities: Functional Status: Independent Living Arrangements: Spouse/Significant other, Family Type of Residence: Private residence, Single Level [address] [place] [address] Current DME: Equipment Currently Used at Home: [...] Outpatient Dialysis Services: Living Will/Advance Directive/Power of Education Coordinator /Guardian: Have you reviewed your Advance Directive [...] Pt states he lives at home in [place] with his , MIL, and two small [...] General: Spoke with: Patient and Bedside legal operations manager and Interventions: Assessed: Wound 01/01/25 Surgical Open Surgical Incision Pretibial Left;Proximal (Active) Wound Assessment Red 01/15/25 2150 Margins Well-defined edges;Attached edges 01/15/252149 Janeth-Wound Assessment Red 01/15/25 2150 Closure [place] 01/15/252149 Wound 01/01/25 Face Left;Upper (Active) Education: [...] please contact the Orthopedic Transition Nurse at [phone] Monday through Monday 8:00 am to 2:30 [...] tibial pulse, cap refill <2 sec, digits [facility] Orthopedic Surgery Tertiary Exam Completed 01/16/25 No [...] Giron MD PGY-3, Orthopaedic Surgery [facility] Orthopaedic Trauma Service Pager: [phone] Orthopaedic Recon/Spine/Foot and Ankle Service Pager: [phone] Cosigned by Sachin Garza MD at 01/18/2025 [...] your wound. Based upon recent changes to [place] law related to prescribing opioid pain medications, [...] please contact the Orthopedic Transition Nurse at [phone] Monday through Monday 8:00 am to 2:30 [...] Howard MD PGY-2, Orthopaedic Surgery [facility] Cosigned by Sachin Garza MD at 01/16/2025 [...] Howard MD PGY-2, Orthopaedic Surgery [facility] Orthopaedic Trauma Service Pager: [phone] Orthopaedic Recon/Spine/Foot and Ankle Service Pager: [phone] [1] History reviewed. No pertinent past medical [...] 25 tablet 0 [4] Allergies Allergen Reactions [place] Hives Cosigned by Sachin Garza MD at [...] Panel, Plasma STAT Final result TYRONE HOWARD 01/15/25 2225 STAT Canceled TYRONE HOWARD 01/15/252224 STAT Canceled TYRONE HOWARD Miguel 01/15/252224 STAT Canceled TYRONE HOWARD Miguel 01/15/252224 NPO diet NPO except: Sips with [...] lock IV Once Acknowledged GUS VIGIL P 01/15/25 213 CBC w/diff STAT Final result GUS VIGIL P 01/15/252133 PT-INR STAT Final result GUS VIGIL P 01/15/25 213 CMP STAT Final result GUS VIGIL P Assessment: Clinical Impressions as of 01/16/25 0657 Sepsis following procedure, initial encounter ([facility]) Cellulitis of left lower extremity [...] diagnosis was Sepsis following procedure, initial encounter ([facility]). Diagnoses of Cellulitis of left [...] Drug use: Never [5] Allergies Allergen Reactions [place] Hives Gus Vigil APRN 01/16/25 0657 Cosigned [...] 01/16/25 0733 Sepsis following procedure, initial encounter ([facility]) Cellulitis of left lower extremity Acute postoperative pain Ultimately, this patient Was admitted (Admission) The primary encounter diagnosis was Sepsis following procedure, initial encounter ([facility]). Diagnoses of Cellulitis of left [...] Hospital Encounter [facility] [address] [place] [address] Lawrence Hayes MD [address] [place] [address] 02/21/2025 12:20 PM EDT - 02/21/2025 2:15 PM EDT Surgery [facility] [address] [place] [address] Lawrence Hayes MD [address] [place] [address] INCISION AND DRAINAGE, LOWER EXTREMITY [55755 (CPT )] 03/03/2025 1:00 PM EDT Office Visit [facility] [address] [facility] [place] [address] Ary Santiago, CERTIFIED COURT/MEDICAL INTERPRETER [address] [place] [address] 2025 7:50 AM EDT Office Visit [facility] Orth[facility] Surgery [facility] Medicine [address] [place] [address] Stella Brown, CERTIFIED COURT/MEDICAL INTERPRETER [address] [place] [address] Pending Results Name Type Priority [...] AM EDT Cellulitis of left lower extremity 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 [...] (ABNORMAL) C-reactive protein (01/22/2025 5:04 AM EDT) [facility] CRP, Plasma 44.4(H) <=8.0 mg/L 01/22/2025 9:25 [...] ORDERABLES Final Res ult Performing Organization Address [facility]/ZIP Co de Phone Number [facility] [address] [place] [address] * Lavender Top (01/22/2025 5:04 AM EDT) Extra Hold for add-ons 01/22/2025 8:02 AM EDT [facility] Comment:Auto resulted. Blood Venous blood specimen / Unknown 01/22/2025 5:04 AM EDT 01/22/2025 5:30 AM EDT us Sachin Garza MD LAB BLOOD ORDERABLES Final R esult Performing Organization Address [facility]/ZIP Co de Phone Number [facility] [address] [place] [address] * (ABNORMAL) Basic metabolic panel (01/22/2025 5:04 [...] R esult [facility] [address] [place] [address] * (ABNORMAL) CBC (01/21/2025 7:29 PM EDT) [...] R esult [facility] [address] [place] [address] * (ABNORMAL) Basic metabolic panel (01/21/2025 7:29 [...] R esult [facility] [address] [place] [address] * PICC SINGLE LUMEN (SMARTFORM LINK) (01/21/2025 7:01 PM EDT) Narrative Norma Miranda RN - 01/21/2025 7:01 PM EDT Norma Miranda RN 01/21/2025 7:19 PM Insert PICC line Date/Time: 01/21/2025 7:01 PM Performed by: Norma Miranda RN Authorized by: Sachin Garza MD Riley Protocol: Verbal consent obtained?: Yes Written consent [...] preference Patient position: Supine Catheter Lot #: [id number] Catheter regional business development manager: Bard PowerPICC Solo Catheter placed: Single lumen [...] ultrasound and/or 3CG images sent to PACS. us Sachin Garza MD IV THERAPY ORDERABLES Final [...] tibial plateau with routine healing, subsequent encounter [L06.815J] us Bob Nava MD LAB MICROBIOLOGY - GENERAL O RDERABLES Final Result [facility] [address] [place] [address] * Fungal Culture, Routine (01/20/2025 10:42 AM [...] Organization Address City/[facility]/ZIP Co de Phone Number [facility] [address] [place] [address] * Anaerobic Culture (01/20/2025 10:42 AM EDT) [...] Organization Address City/[facility]/ZIP Co de Phone Number [facility] [address] [place] [address] * Fungal Culture, Tissue and SYEDA (01/20/2025 10:30 AM EDT) Culture Reading Mycological 4 Weeks No Fungal Growth at 4 Weeks 02/18/2025 6:03 AM EDT [facility] SYEDA No fungal elements seen 02/18/2025 6:03 AM EDT [facility] Tissue Structure of left knee region / Unknown 01/20/2025 10:30 AM EDT 01/20/2025 11:23 AM EDT Comment:Pre-op diagnosis: Closed fracture of left tibial plateau with routine healing, subsequent encounter [S82.142D] us Bob Nava MD LAB MICROBIOLOGY - GENERAL O RDERABLES Final Result [facility] [address] [place] [address] * Tissue Culture and Gram Stain (01/20/2025 [...] Organization Address City/[facility] Co de Phone Number [facility] [address] [place] [address] * Anaerobic Culture (01/20/2025 10:30 AM EDT) Culture No growth at day 4 01/28/2025 7:09 AM EDT [facility] Tissue Structure of left knee region / Unknown 01/20/2025 10:30 AM EDT 01/20/2025 11:23 AM EDT Comment:Pre-op diagnosis: Closed fracture of left tibial plateau with routine healing, subsequent encounter [S82.142D] us Bob Nava MD LAB MICROBIOLOGY - GENERAL O RDERABLES Final Result Performing Organization Address City/[facility]/ZIP Co de Phone Number [facility] [address] [place] [address] * Fungal Culture, Tissue and SYEDA (01/20/2025 10:27 AM EDT) Culture Reading Mycological 4 Weeks No Fungal Growth at 4 Weeks 02/18/2025 6:03 AM EDT [facility] SYEDA No fungal elements seen 02/18/2025 6:03 AM EDT [facility] Tissue Structure of left knee region / Unknown 01/20/2025 10:27 AM EDT 01/20/2025 11:24 AM EDT Comment:Pre-op diagnosis: Closed fracture of left tibial plateau with routine healing, subsequent encounter [S82.142D] Bob Nava MD LAB MICROBIOLOGY - GENERAL O RDERABLES Final Result Performing Organization Address City/[facility]/ZIP Co de Phone Number [facility] [address] [place] [address] * Tissue Culture and Gram Stain (01/20/2025 [...] Organization Address City/[facility]/ZIP Co de Phone Number [facility] [address] [place] [address] * Anaerobic Culture (01/20/2025 10:27 AM EDT) Culture No growth at day 4 01/28/2025 7:09 AM EDT [facility] Tissue Structure of left knee region / Unknown 01/20/2025 10:27 AM EDT 01/20/2025 11:24 AM EDT Comment:Pre-op diagnosis: Closed fracture of left tibial plateau with routine healing, subsequent encounter [E90.579K] us Bob Nava MD LAB MICROBIOLOGY - GENERAL O RDERABLES Final Result Performing Organization Address [facility]/ZIP Co de Phone Number [facility] [address] [place] [address] * (ABNORMAL) Creatine Kinase (CK), Total (01/20/2025 3:40 AM EDT) Creatine Kinase, Plasma 18(L) 49 - 320 U/L 01/21/2025 12:17 PM EDT [facility] Blood Venous blood specimen / Unknown Venipuncture / Unknown 01/20/2025 3:40 AM EDT 01/20/2025 3:57 AM EDT us Sachin Garza MD LAB BLOOD ORDERABLES Final R esult Performing Organization Address [facility] Co de Phone Number [facility] [address] [place] [address] * Vancomycin, random (01/20/2025 3:40 AM EDT) Vancomycin, Random, Plasma 20.1 ug/mL 01/20/2025 4:51 AM EDT [facility] Blood Venous blood specimen / Unknown Venipuncture / Unknown 01/20/2025 3:40 AM EDT 01/20/2025 3:57 AM EDT Sachin Garza MD LAB BLOOD ORDERABLES Final R esult Performing Organization Address City/[facility]/ZIP Co de Phone Number [facility] [address] [place] [address] * Protime-INR (01/20/2025 3:40 AM EDT) Prothrombin [...] INR 2.5 to 3.5 Prevention of recurrent [place] INR 2.5 to 3.5 us Sachin Garza MD LAB BLOOD ORDERABLES Final R esult [facility] [address] [place] [address] * (ABNORMAL) Basic metabolic panel (01/20/2025 3:40 [...] R esult [facility] [address] [place] [address] * (ABNORMAL) CBC W/O Differential (01/20/2025 3:40 [...] Organization Address City/[facility]/ZIP Co de Phone Number [facility] [address] [place] [address] * Vancomycin, random (01/19/2025 11:48 AM EDT) Vancomycin, Random, Plasma 22.9 ug/mL 01/19/2025 1:05 PM EDT [facility] Blood Venous blood specimen / Unknown Venipuncture / Unknown 01/19/2025 11:48 AM EDT 01/19/2025 11:50 AM EDT Sachin Garza MD LAB BLOOD ORDERABLES Final R esult Performing Organization Address City/[facility]/ZIP Co de Phone Number [facility] [address] [place] [address] * (ABNORMAL) Basic Metabolic Panel, Plasma (01/18/2025 [...] R esult [facility] [address] [place] [address] * (ABNORMAL) CBC W/O Differential (01/18/2025 11:54 [...] R esult [facility] [address] [place] [address] * Fungal Culture, Sterile Body Fluid (NOT [...] Organization Address City/[facility]/ZIP Co de Phone Number [facility] [address] [place] [address] * Anaerobic Culture (01/18/2025 3:28 PM EDT) Culture No anaerobes isolated 01/23/2025 7:50 AM EDT [facility] Joint Fluid Topography unknown / Unknown Non-blood Collection / Unknown 01/18/2025 3:28 PM EDT 01/18/2025 3:28 PM EDT Sachin Garza MD LAB MICROBIOLOGY - GENERAL O RDERABLES Final Result Performing Organization Address [facility] Co de Phone Number [facility] [address] [place] [address] * (ABNORMAL) Body Fluid Culture and Gram Stain (01/18/2025 3:28 PM EDT) Culture Heavy Growth 01/20/2025 8:34 AM EDT [facility] Culture Methicillin-Resista nt Staphylococcus aureus(AA) 01/20/2025 8:34 AM EDT [facility] Comment: For susceptibility results refer to: - [id number] The organism value for this result has [...] Organization Address City/[facility]/ZIP Co de Phone Number [facility] [address] [place] [address] * Body fluid, cytospin, pathologist interpretation (01/18/2025 [...] Organization Address City/[facility]/ZIP Co de Phone Number [facility] [address] [place] [address] * Joint Fluid Crystals (01/18/2025 3:01 PM EDT) Crystals, Joint Fluid No Crystals Seen No Crystals Present 01/18/2025 5:28 PM EDT [facility] Joint Fluid Structure of left knee region / Unknown 01/18/2025 3:01 PM EDT 01/18/2025 3:28 PM EDT us Sachin Garza MD LAB BODY FLUIDS AND STOOLS O RDERABLES Final Result Performing Organization Address City/[facility]/ZIP Co de Phone Number [facility] [address] [place] [address] * (ABNORMAL) Body Fluid Cell Count w/ Diff (01/18/2025 3:01 PM EDT) Color, Body fluid Red LAB HEMATOLOGY METHOD 01/18/2025 11:05 PM EDT [facility] Appearance, Body fluid Cloudy(A) LAB HEMATOLOGY METHOD 01/18/2025 11:05 PM EDT [facility] Volume, Body fluid 3.5 [...] LAB HEMATOLOGY METHOD 01/18/2025 11:05 PM EDT [facility] Neutrophils Absolute (PMN), Body [...] Organization Address City/[facility]/ZIP Co de Phone Number [facility] [address] [place] [address] * Body Fluid Culture and Gram Stain [...] Organization Address City/[facility]/ZIP Co de Phone Number [facility] [address] [place] [address] * Joint Infection Panel by PCR (01/18/2025 [...] 5:28 PM EDT [facility] Escherichia coli PCR Result Not [...] Final Result [facility] [address] [place] [address] * Fungal Culture, Tissue and SYEDA (01/18/2025 10:00 AM EDT) Culture Reading Mycological 4 Weeks No Fungal Growth at 4 Weeks 02/16/2025 8:50 AM EDT [facility] SYEDA No fungal elements seen 02/16/2025 8:50 AM EDT [facility] Tissue Topography unknown / Unknown 01/18/2025 10:00 AM EDT 01/18/2025 3:26 PM EDT Comment:Pre-op diagnosis: Cellulitis of left lower extremity [L03.116] Dwaine Das DO LAB MICROBIOLOGY - GENERAL ORDERABLES Final Result [facility] [address] [place] [address] * (ABNORMAL) Tissue Culture and Gram Stain [...] aureus Vancomycin JOVANI 1 ug/ml: Susceptible Dwaine [email or web address] [facility] LAB MICROBIOLOGY - GENERAL ORDERABLES Final Result Performing Organization Address [facility]/ZIP Co de Phone Number [facility] [address] [place] [address] * Anaerobic Culture (01/18/2025 10:00 AM EDT) Culture No anaerobes isolated 01/23/2025 7:50 AM EDT [facility] Tissue Topography unknown / Unknown 01/18/2025 10:00 AM EDT 01/18/2025 3:26 PM EDT Comment:Pre-op diagnosis: Cellulitis of left lower extremity [L03.116] Dwaine NicholsJol[facility] LAB MICROBIOLOGY - GENERAL ORDERABLES Final Result Performing Organization Address [facility] Co de Phone Number [facility] [address] [place] [address] * Body fluid, cytospin, pathologist interpretation (01/18/2025 [...] BODY FLUIDS AND STOOLS ORDERABLES Final Result [facility] [address] [place] [address] * (ABNORMAL) Body Fluid Cell Count w/ [...] SPECIMEN TYPE/SOURCE Final Result Performing Organization Address City/State/[facility] Co de Phone Number [facility] [address] [place] [address] * Fungal Culture, Sterile Body Fluid (NOT [...] Cellulitis of left lower extremity [L03.116] Dwaine Nicholsadeleshivani [facility] LAB MICROBIOLOGY - GENERAL ORDERABLES Final Result Performing Organization Address [facility] de Phone Number [facility] [address] [place] [address] * (ABNORMAL) Body Fluid Culture and Gram Stain (01/18/2025 9:57 AM EDT) Culture Heavy Growth 01/20/2025 8:34 AM EDT [facility] Culture Methicillin-Resista nt Staphylococcus aureus(AA) 01/20/2025 8:34 AM EDT [facility] Comment: For susceptibility results refer to: - [id number] The organism value for this result has [...] Cellulitis of left lower extremity [L03.116] Dwaine Nicholsadeleshivani LAB MICROBIOLOGY - GENERAL ORDERABLES Final Result Performing Organization Address [facility] Co de Phone Number [facility] [address] [place] [address] * Anaerobic Culture (01/18/2025 9:57 AM EDT) Culture No anaerobes isolated 01/23/2025 7:50 AM EDT [facility] Cyst Fluid Topography unknown / Unknown 01/18/2025 9:57 AM EDT 01/18/2025 3:26 PM EDT Comment:Pre-op diagnosis: Cellulitis of left lower extremity [L03.116] Dwaine Das DO LAB MICROBIOLOGY - GENERAL ORDERABLES Final Result [facility] [address] [place] [address] * Methicillin Resistant Staphylococcus aureus (MRSA) by [...] Organization Address City/[facility] Co de Phone Number [facility] [address] [place] [address] * (ABNORMAL) Basic metabolic panel (01/18/2025 12:18 [...] 12:18 AM EDT 01/18/2025 12:27 AM EDT Sachin Garza MD LAB BLOOD ORDERABLES Final R esult [facility] [address] [place] [address] * (ABNORMAL) CBC W/O Differential (01/18/2025 12:18 [...] R esult [facility] [address] [place] [address] * Vancomycin, Peak, Plasma Please draw ~2 [...] ORDERABLES Final R esult Performing Organization Address [facility] Co de Phone Number [facility] [address] [place] [address] * Vancomycin, Trough, Plasma Please draw ~30 minutes prior to dose due at 1000 on Monday. Please do NOT hold dose awaiting level to return. Consider obtaining level via peripheral stick. If peripheral stick is not feasible, please ensure that line ... (01/17/2025 9:53 AM EDT) Pathologist [facility] Vancomycin, Trough, Plasma 12.5 10.0 - 20.0 [...] ORDERABLES Final R esult Performing Organization Address [facility] Co de Phone Number [facility] [address] [place] [address] * (ABNORMAL) Basic metabolic panel (01/17/2025 4:05 [...] R esult [facility] [address] [place] [address] * [place] Extremity Limited MSK or Soft [...] Re sult [facility] [address] [place] [address] * Prothrombin Time/INR (01/16/2025 4:31 AM EDT) [...] INR 2.5 to 3.5 Prevention of recurrent [place] INR 2.5 to 3.5 us Jeffrey Matute MD LAB BLOOD ORDERABLES Final Re sult [facility] [address] [place] [address] * (ABNORMAL) CBC W/O Differential (01/16/2025 4:31 [...] sult [facility] [address] [place] [address] * CT Tibia Fibula Left w IV [...] Final Result [facility] [address] [place] [address] * XR Chest 1 View (01/15/2025 11:21 [...] MD on 01/15/2025 11:40 PM Gus Vigil CERTIFIED COURT/MEDICAL INTERPRETER IMG XR PROCEDURES Final Result * XR [...] Rogers MD on 01/15/2025 11:40 PM Gus Soares Niall CERTIFIED COURT/MEDICAL INTERPRETER IMG XR PROCEDURES Final Result * Type [...] ORDERA BLES Final Result Performing Organization Address City/[facility]/ZIP Co de Phone Number [facility] [address] [place] [address], [place] * ECG Adult (01/15/2025 10:46 PM EDT) EKG DIAGNOSIS CLASS Normal MUSE ECG Ventricular Rate 92 BPM MUSE ECG Atrial Rate 92 BPM MUSE ECG AL Interval 122 ms MUSE ECG QRSD Interval 102 ms MUSE ECG QT Interval 350 ms MUSE ECG QTC Interval 432 ms MUSE ECG P [place] 56 degrees MUSE ECG R [place] 44 degrees MUSE ECG T Wave [place] 57 degrees MUSE ECG Diagnosis Normal sinus rhythm MUSE ECG Diagnosis Normal ECG MUSE ECG Diagnosis MUSE ECG Diagnosis Confirmed by Richard Mccrakcen ([id number]) on 01/16/2025 8:55:10 PM MUSE ECG [...] AL ORDERABLES Final Result Performing Organization Address City/[facility]/ZIP Co de Phone Number [facility] [address] [place] [address] * (ABNORMAL) Sed rate, automated (01/15/2025 10:11 PM EDT) Sedimentation Rate 46(H) <15 mm/hr 2024 10:34 PM EDT [facility] Blood Venous blood specimen / Unknown Venipuncture / Unknown 01/15/2025 10:11 PM EDT 01/15/2025 10:12 PM EDT [facility]ERT[facility]/MEDICAL INTERPRETER LAB BLOOD ORDERABLES Fin al Result Performing Organization Address City/[facility]/ZIP Co de Phone Number [facility] [address] [place] [address] * (ABNORMAL) C-Reactive protein (01/15/2025 10:11 PM [...] Result [facility] [address] [place] [address] * (ABNORMAL) Blood gas panel, venous (01/15/2025 [...] al Result [facility] [address] [place] [address] * (ABNORMAL) CMP (01/15/2025 10:11 PM EDT) [...] al Result [facility] [address] [place] [address] * PT-INR (01/15/2025 10:11 PM EDT) Prothrombin Time 12.5 12.0 - 14.3 sec 01/15/2025 10:28 PM EDT [facility] INR 1.0 0.9 - 1.1 01/15/2025 10:28 PM EDT [facility] Blood [...] INR 2.5 to 3.5 Prevention of recurrent MT INR 2.5 to 3.[address]/MEDICAL INTERPRETER LAB BLOOD ORDERABLES Fin al Result [facility] [address] [place] [address] * (ABNORMAL) CBC w/diff (01/15/2025 10:11 PM EDT) [facility] WBC Count 19.24(H) 3.70 - 10.30 10*3/uL [...] absolute values, rather than percentages. Gus Vigil CERTIFIED COURT/MEDICAL INTERPRETER LAB BLOOD ORDERABLES Fin al Result [facility] [address] [place] [address] documented in this encounter Visit Diagnoses Diagnosis Cellulitis of leg, left- Primary Sepsis following procedure, initial encounter ([facility]) Cellulitis of left lower extremity Acute postoperative pain Other acute postoperative pain Closed fracture of left tibial plateau with routine healing, subsequent encounter Cellulitis of leg, left Cellulitis of left lower extremity Sepsis following procedure ([facility]) Closed fracture of left tibial plateau Closed fracture of left tibial plateau with routine healing, subsequent encounter Tibial plateau fracture, left, closed, initial encounter Surgical site infection documented in this encounter Admitting Diagnoses Diagnosis Cellulitis of leg, left Cellulitis of left lower extremity Sepsis following procedure ([facility]) Closed fracture of left tibial [...] Until Mon01/22/25 at 1922, Routine, line care traMADol (Ultram) tablet 50 mg 50 mg, Oral, Every 6 hours PRN, Starting on Mon01/16/25 at 0753, Until Mon01/22/25 at 1922, Routine, severe pain, pain not responsive to non-opioid analgesics Given 01/22/2025 9:26 AM EDT 50 mg Given 01/18/2025 11:33 AM EDT 50 mg Given 01/16/2025 12:26 PM EDT 50 mg vancomycin (Vancocin) vial for injection As needed, Starting on Mon01/20/25 at 1048, Until Mon01/20/25 at 1128, Routine, Intraprocedure Given 01/20/2025 10:48 AM EDT 1 g documented in this encounter Active and Recently [...] - Comment: patient going to OR today)09 ([facility] Hold - Provider: Automatic Transfer Provider - Reason: Patient in procedure)1216 ([facility] Unhold - Provider: Automatic Transfer Provider)2001 (Given - Provider: Taryn Miranda RN) 900 (Given - Provider: Katalina Martinez RN)2106 (Given - Provider: Taryn Miranda RN) 0848 (Given - Provider: Leigh Rg, SHEREEN) mupirocin (Bactroban) 2 % ointment 1 Application Each Nostril, 2 times daily, 10 doses, First dose on Mon01/20/25 at 0945, Last dose on Mon01/24/25 at 2100, Routine 0924 ([facility] Hold - Provider: Automatic Transfer Provider - Reason: Patient in procedure)0945 (Dose Auto Held - Provider: Automatic Transfer Provider)1216 ([facility] Unhold - Provider: Automatic Transfer Provider)2002 (Given - Provider: Taryn Miranda RN) 900 (Given - Provider: Katalina Martinez, SHEREEN)2107 (Given - Provider: Taryn Miranda RN) 0847 (Given - Provider: Leigh gR, SHEREEN) nicotine (Nicoderm CQ) 21 MG/24HR patch 1 patch 1 patch, Transdermal, Daily, First dose on Mon01/17/25 at 1215, Until Discontinued, Routine 0924 ([facility] Hold - Provider: Automatic Transfer Provider - Reason: Patient in procedure)121 ([facility] Unhold - Provider: Automatic Transfer Provider)1603 (Medication [...] no bowel movement for 48 hours 09 ([facility] Hold - Provider: Automatic Transfer Provider - Reason: Patient in procedure)1216 ([facility] Unhold - Provider: Automatic Transfer Provider) naloxone (Narcan) injection 0.08 mg 0.08 mg, Intravenous, As needed, Starting on Sneha 01/16/25 at 0753, Until Mon01/22/25 at 1922, Routine, respiratory depression, every 2 minutes 0924 ([facility] Hold - Provider: Automatic Transfer Provider - Reason: Patient in procedure)1216 ([facility] Unhold - Provider: Automatic Transfer Provider) ondansetron [...] Mon01/22/25 at 1922, Routine, nausea, vomiting 0924 ([facility] Hold - Provider: Automatic Transfer Provider - Reason: Patient in procedure)1216 ([facility] Unhold - Provider: Automatic Transfer Provider) oxyCODONE [...] for injection (CANCELED) As needed, Starting on 01/20/25 at 1048, Until Mon01/20/25 at 1128, Routine, [...] documented as of this encounter Care Teams Gis Administrator Relationship Specialty Start Date End Date Renetta Pardo APRN [address] [place] [address] [place] [address] PCP - General 09/09/23 02/16/25 documented as of this encounter
--- OUTSIDE RECORDS SUMMARY | 2025-02-03 08:10 | XMS_ITS | Encounter Summary ---
Author Organization Healthcare Address [address] [place] [address] Care Team Providers Care Maintenance Electrician Name Role Phone Renetta Pardo APRN Primary Care Provider +1 -[phone] Reason for Visit * Reason Comments Post-op Encounter Details Date Type Department Care Team (Late st Contact Info) Description 02/03/2025 8:10 AM EDT Office Visit [facility] Orthopaedic Surgery & Sports Medicine [address], 1[address] [place] [address] Lawrence Hayes MD [address] [place] [address] Closed fracture of left tibial [...] in a longterm (including now)? No 09/12/2023 Humiliation, Afraid, Rape, [...] were you homeless or living in a longterm (including now)? No 01/17/2025 CAGE ASSESSMENT Answer [...] drink first t traci in the morning (EYE-FORKLIFT MECHANIC) to steady your nerves or to get [...] Orthopaedic Surgery and Sports Medicine Consult Pager: [phone] Service Pager: [phone] Cosigned by Lawrence Hayes MD at 02/03/2025 [...] Hospital Encounter [facility] O[facility]ATING RO[facility] [address] [place] [address] Lawrence Hayes MD [address] [facility] [address] [place] [address] 02/21/2025 12:20 PM EDT - 02/21/2025 2:15 PM EDT Surgery [facility]PERATING ROOM [address] [place] [address] Lawrence Hayes MD [address] [facility] [address] [place] [address] INCISION AND DRAINAGE, LOWER EXTREMITY [96288 (CPT )] 03/03/2025 1:00 PM EDT Office Visit [facility] [address] [place] [address] Ary Santiago, HARMONIC ANALYST [address] [facility] [address] [place] [address] 2025 7:50 AM EDT Office Visit [facility] Orthopaedic Surgery & Sports Medicine [address], 1[address] [place] [address] Stella Brown, HARMONIC ANALYST [address] [place] [address] Scheduled Procedures Name Priority Associated Diagnoses Date/Ti me INCISION AND DRAINAGE, LOWER EXTREMITY Tibial plateau fracture, left, closed, initial encounter Surgical site infection 02/21/2025 12:20 PM EDT documented as of this encounter Results * [...] fracture of left tibial plateau, initial encounter Tibial plateau fracture, left, closed, initial encounter Surgical site infection documented in this encounter Additional Health Concerns Infection Onset Date Last Indicated Resolved Time 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
--- OUTSIDE RECORDS SUMMARY | 2025-02-17 08:40 | XMS_ITS | Encounter Summary ---
Author Organization Healthcare Address [address] [place] [address] Care Team Providers Care Tail End Rider Name Role Phone Blaine Nava MD Primary Care Provider [phone] Encounter Details Date Type Department Care Team (Latest Contact Info) Description 02/17/2025 8:40 AM EDT - 02/17/2025 1:27 PM EDT Hospital Encounter [facility]iology [address], 1st [place] [address] Closed fracture of left tibial plateau, initial encounter Discharge Disposition: Home or Self Care [...] drink first t traci in the morning (EYE-REHABILITATION THERAPY TECHNICIAN) to steady your nerves or to get rid of a hangover? 0 09/10/2023 CAGE Questionnaire Score 0 024 Utilities Answer Date Recorded In the past 12 months has e [employer] [place] [employer], gas, oil, or water streamOnce threatened to shut off services in your home? No 01/17/2025 Sex and Gender Information Value Date Recorded Sex Assigned at Male 09/10/2023 4:09 AM EST Legal Sex Male 7:58 PM EST Gender Identity Male 09/10/2023 4:09 AM EST Sexual Orientation Straight 09/10/2023 4: 09 AM EST documented as of this encounter Medications at [...] continue 2 each 2 01/02/2025 Nutritional Supplements (Apul) pack Take 1 packet by mouth 2 times a day. 30 each 01/02/2025 oxyCODONE (Oxy-IR) 5 MG immediate release capsuleIndication s:Acute Pain Take 1 capsule by mouth every 6 hours as needed for severe pain. 25 capsule 01/22/2025 senna-docusate (Janeth-Colace) 8.6-50 MG tablet Take 1 tablet by mouth 2 times a day. 28 tablet 01/02/2025 documented as of this encounter Plan of Treatment Upcoming Encounters Date Type Department Care Team (Latest Contact Info) Description 02/21/2025 12:20 PM EDT Hospital Encounter [facility] [address] [place] [address] Lawrence Hayes MD [address] [place] [address] 02/21/2025 12:20 PM EDT - 02/21/2025 2:15 PM EDT Surgery [facility] [address] [place] [address] Lawrence Hayes MD [address] [facility] [address] [place] [address] INCISION AND DRAINAGE, LOWER EXTREMITY [69860 (CPT )] 03/03/2025 1:00 PM EDT Office Visit [facility] [address] [place] [address] Ary Santiago, BRIM BUSTER [address]01 [facility] [address] [place] [address] 2025 7:50 AM EDT Office Visit [facility] Orthopaedic Surgery & Sports Medicine [address], [address] [place] [address] Stella Brown, BRIM BUSTER [address] [facility] [address] [place] [address] Scheduled Procedures Name Priority Associated Diagnoses Date/Ti me INCISION AND DRAINAGE, LOWER EXTREMITY Tibial plateau fracture, left, closed, initial encounter Surgical site infection 02/21/2025 12:20 PM EDT documented as of this encounter Goals Goal Patient Goal Type Associated Problems Recent Progress Patient-Stated? Author Autogenerat ed Goal Care Plan Autogenerated Problem No Stella Brown, BRIM BUSTER documented as of this encounter Procedures Procedure Name Priority Date/Time Associated Diagnosis Comments XR KNEE LEFT 3 VIEWS Routine 02/17/2025 9:29 AM EDT Closed fracture of left tibial plateau, initial encounter documented in this encounter Results * XR Knee Left [...] Maldonado Remy MD on 02/17/2025 9:53 AM Nidhi ZULUAGA IMG XR PROCEDURES Final Resu lt documented in this encounter Visit Diagnoses Diagnosis Closed fracture of left tibial plateau, initial encounter Tibial plateau fracture, left, closed, initial encounter Surgical site infection Tibial plateau fracture, left, closed, initial encounter Surgical site infection documented in this encounter Additional Health Concerns Active Problems Noted Date Diagnosed Date Autogenerated Problem 02/17/2025 Infection 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
--- OUTSIDE RECORDS SUMMARY | 2025-02-17 09:20 | XMS_ITS | Encounter Summary ---
Author Organization Healthcare Address [address] [place] [address] Care Team Providers Care Composition Weatherboard Installer Name Role Phone Blaine Nava MD Primary Care Provider [phone] Reason for Referral * Imaging (Urgent) - Closed Specialty Diagnoses / Procedures Referred By Adalid wills Referred To Contact Radiology Diagnoses Tibial plateau fracture, left, closed, initial encounter Procedures CT Knee Left wo IV Contrast Stella Lobo APRN [address] [facility] [address] [place] [address] Phone: tel: fax: Referral ID Status Reason Start Date Expiration Date Visits Re quested Visits Authorized [id number] Closed 02/17/2025 08/19/2026 1 1 Reason for Visit * Reason Comments Post-op Encounter Details Date Type Department Care Team (Late st Contact Info) Description 02/17/2025 9:20 AM EDT [facility] Visit [facility] [address], [address] [place] [address] Lawrence Hayes MD [address] [place] [address] Tibial plateau fracture, left, closed, [...] any time in the past 12 m [facility], were you homeless or living in [...] drink first t traci in the morning (EYE-ESCORT PATIENTS) to steady your nerves or to get [...] Hospital Encounter [facility] [address] [place] [address] Lawrence Hayes MD [id number] [place] [address] 02/21/2025 12:20 PM EDT - 02/21/2025 2:15 PM EDT Surgery [facility] [address] [place] [address] Lawrence Hayes MD [address] [facility] [place] [address] INCISION AND DRAINAGE, LOWER EXTREMITY [33850 (CPT )] 03/03/2025 1:00 PM EDT Office Visit [facility] [address] [place] [address] Ary Santiago, ARTS THERAPIST [address] [facility] [address] [place] [address] 2025 7:50 AM EDT Office Visit [facility] [address], [address] [place] [address] Stella Lobo, ARTS THERAPIST [address] [facility] [address] [place] [address] Scheduled Procedures Name Priority Associated Diagnoses Date/Ti me INCISION AND DRAINAGE, LOWER EXTREMITY Tibial plateau fracture, left, closed, initial encounter Surgical site infection 02/21/2025 12:20 PM EDT documented as of this encounter Goals Goal Patient Goal Type Associated Problems Recent Progress Patient-Stated? Author Autogenerat ed Goal Care Plan Autogenerated Problem No Stella Lobo, ARTS THERAPIST documented as of this encounter Results * [...] C-Reactive Protein, Plasma (02/17/2025 11:00 AM EDT) Pathologist [facility] [place] CRP, Plasma 12.7(H) <=8.0 mg/L 02/17/2025 12:40 PM EDT [facility] Blood Venous blood specimen / Unknown Venipuncture / Unknown 02/17/2025 11:00 AM EDT 02/17/2025 11:00 AM EDT Narrative [facility] - 02/17/2025 12:40 PM EDT This CRP test is appropriate for assessment of infection, systemic inflammation and/or tissue injury. To assess cardiovascular disease risk order high sensitivity CRP (CRPH). us Stella Lobo APRN LAB BLOOD ORDERABLES Final Result [facility] [address] [place] [address] * (ABNORMAL) Sedimentation Rate, Automated (02/17/2025 11:00 AM EDT) Pathologist [facility] [place] Sedimentation Rate 20(H) <15 mm/hr 2024 12:47 PM EDT [facility] Blood Venous blood specimen / Unknown Venipuncture / Unknown 02/17/2025 11:00 AM EDT 02/17/2025 11:00 AM EDT us Stella N Lobo ARTS THERAPIST LAB BLOOD ORDERABLES Final Result [facility] [address] [place] [address] * (ABNORMAL) Comprehensive metabolic panel (02/17/2025 11:00 AM EDT) Glucose, Plasma 94 74 - 99 mg/dL 02/17/2025 12:40 PM EDT [facility] BUN, Plasma 13 7 - 21 mg/dL 02/17/2025 12:40 PM EDT [facility] Creatinine, Plasma 0.85 0.70 - 1.20 mg/dL 02/17/2025 12:40 PM EDT [facility] BUN/Creatinine Ratio 15 02/17/2025 12:40 PM EDT [facility] Sodium, Plasma 137 136 - 145 mmol/L 02/17/2025 12:40 PM EDT [facility] Potassium, Plasma 4.6 3.6 - 4.9 mmol/L 02/17/2025 12:40 PM EDT [facility] Chloride, Plasma 101 97 - 107 mmol/L 02/17/2025 12:40 PM EDT [facility] CO2, Plasma 25 22 - 29 mmol/L 02/17/2025 12:40 PM EDT [facility] Anion Gap 11 6 - 16 mmol/L 02/17/2025 12:40 PM EDT [facility] Total Calcium, Plasma 9.3 8.9 - 10.2 mg/dL 02/17/2025 12:40 PM EDT [facility] Total Protein 7.1 6.3 - 7.9 g/dL 02/17/2025 12:40 PM EDT [facility] Albumin, Plasma 4.2 3.5 - 5.2 g/dL 02/17/2025 12:40 PM EDT [facility] AST, Plasma 16 10 - 50 U/L 02/17/2025 12:40 PM EDT [facility] ALT, Plasma 28 10 - 50 U/L 02/17/2025 12:40 PM EDT [facility] Alkaline Phosphatase, Plasma 117(H) 40 - 115 U/L 02/17/2025 12:40 PM EDT [facility] Total Bilirubin, Plasma <0.2(L) 0.2 - 1.1 mg/dL 02/17/2025 12:40 PM EDT [facility] eGFRcr 116.2 mL/min/1.7 3m*2 02/17/2025 12:40 PM EDT [facility] Comment:Reported eGFRcr in m L/min/1.73m2 is based the CKD-EPI 2020 equation that does not use a race coefficient. Blood Venous blood specimen / Unknown Venipuncture / Unknown 02/17/2025 11:00 AM EDT 02/17/2025 11:00 AM EDT us Stella Lobo ARTS THERAPIST LAB BLOOD ORDERABLES Final Result [facility] [address] [place] [address] * (ABNORMAL) CBC with Differential (02/17/2025 11:00 AM EDT) WBC Count 7.61 3.70 - 10.30 10*3/uL LAB HEMATOLOGY METHOD 02/17/2025 12:23 PM EDT [facility] RBC Count 4.26(L) 4.60 - 6.10 10*6/uL LAB HEMATOLOGY METHOD 02/17/2025 12:23 PM EDT [facility] HGB 12.5(L) 13.7 - 17.5 g/dL LAB HEMATOLOGY METHOD 02/17/2025 12:23 PM EDT [facility] HCT 39.1(L) 40.0 - 51.0 % LAB HEMATOLOGY METHOD 02/17/2025 12:23 PM EDT [facility] Platelet Count 330 155 - 369 10*3/uL LAB HEMATOLOGY METHOD 02/17/2025 12:23 PM EDT [facility] MCV 92 79 - 98 fL LAB HEMATOLOGY METHOD 02/17/2025 12:23 PM EDT [facility] MCH 29.3 26.0 - 32.0 pg LAB HEMATOLOGY METHOD 02/17/2025 12:23 PM EDT [facility] MCHC 32.0 30.7 - 35.5 g/dL LAB HEMATOLOGY METHOD 02/17/2025 12:23 PM EDT [facility] RDW 13.0 11.5 - 14.5 % LAB HEMATOLOGY METHOD 02/17/2025 12:23 PM EDT [facility] MPV 9.7 8.8 - 12.5 fL LAB HEMATOLOGY METHOD 02/17/2025 12:23 PM EDT [facility] nRBC 0.0 <=0.0 per 100 WBCs LAB HEMATOLOGY METHOD 02/17/2025 12:23 PM EDT [facility] Differential Type Automated LAB HEMATOLOGY METHOD 02/17/2025 12:23 PM EDT [facility] Neutrophils % 52 % LAB HEMATOLOGY METHOD 02/17/2025 12:23 PM EDT [facility] Lymphocytes % 33 % LAB HEMATOLOGY METHOD 02/17/2025 12:23 PM EDT [facility] Monocytes % 8 % LAB HEMATOLOGY METHOD 02/17/2025 12:23 PM EDT [facility] Eosinophils % 5 % LAB HEMATOLOGY METHOD 02/17/2025 12:23 PM EDT [facility] Basophils % 1 % LAB HEMATOLOGY METHOD 02/17/2025 12:23 PM EDT [facility] Immature Granulocytes % 1 % LAB HEMATOLOGY METHOD 02/17/2025 12:23 PM EDT [facility] Neutrophils Absolute 4.07 1.60 - 6.10 10*3/uL LAB HEMATOLOGY METHOD 02/17/2025 12:23 PM EDT [facility] Lymphocytes Absolute 2.50 1.20 - 3.90 10*3/uL LAB HEMATOLOGY METHOD 02/17/2025 12:23 PM EDT [facility] Monocytes Absolute 0.59 0.30 - 0.90 10*3/uL LAB HEMATOLOGY METHOD 02/17/2025 12:23 PM EDT [facility] Eosinophils Absolute 0.36 0.00 - 0.50 10*3/uL LAB HEMATOLOGY METHOD 02/17/2025 12:23 PM EDT [facility] Basophils Absolute 0.05 0.00 - 0.10 10*3/uL LAB HEMATOLOGY METHOD 02/17/2025 12:23 PM EDT [facility] Immature Granulocytes Absolute 0.04 0.00 - 0.06 10*3/uL LAB HEMATOLOGY METHOD 02/17/2025 12:23 PM EDT [facility] Blood Venous blood specimen / Unknown Venipuncture / Unknown 02/17/2025 11:00 AM EDT 02/17/2025 11:00 AM EDT Narrative [facility] - 02/17/2025 12:23 PM EDT Therapeutic decision making should be based on absolute values, rather than percentages. us Stella Lobo ARTS THERAPIST LAB BLOOD ORDERABLES Final Result [facility] [address] [place] [address] documented in this encounter Visit Diagnoses Diagnosis Tibial plateau fracture, left, closed, initial encounter- Primary Surgical site infection Tibial plateau fracture, left, closed, initial encounter Tibial plateau fracture, left, closed, [...] documented as of this encounter Care Teams Composition Weatherboard Installer Relationship Specialty Start Date End Date Blaine Nava MD [address] [place] [address] #1 #1 [place] [id number] PCP - General 02/17/25 documented as of this encounter
--- OUTSIDE RECORDS SUMMARY | 2025-02-17 13:28 | XMS_ITS | Encounter Summary ---
Author Organization Healthcare Address [address] [place] [address] Care Team Providers Care Direct Mail Clerk Name Role Phone Blaine Nava MD Primary Care Provider [phone] Reason for Referral * Imaging (Urgent) - Closed Specialty Diagnoses / Procedures Referred By Contac t Referred To Contact Radiology Diagnoses Tibial plateau fracture, left, closed, initial encounter Procedures CT Knee Left wo IV Contrast Stella Brown APRN [address] [place] [address] Phone: tel: fax: Referral ID Status Reason Start Date Expiration Date Visits Re quested Visits Authorized [id number] Closed 02/17/2025 08/19/2026 1 1 Reason for Visit * Imaging (Urgent) - Closed Specialty Diagnoses / Procedures Referred By Contac t Referred To Contact Radiology Diagnoses Tibial plateau fracture, left, closed, initial encounter Procedures CT Knee Left wo IV Contrast Stella Brown APRN [address] [place] [address] Phone: tel: fax: Referral ID Status Reason Start Date Expiration Date Visits Re quested Visits Authorized [id number] Closed 02/17/2025 08/19/2026 1 1 Encounter Details Date Type Department Care Team (Latest Contact Info) Description 02/17/2025 1:28 PM EDT - 02/17/2025 11:59 PM EDT Hospital Encounter [facility] [address] [place] [address] Tibial plateau fracture, left, closed, [...] any time in the past 12 m [facility], were you homeless or [...] drink first t traci in the morning (EYE-OCEANOLOGY TEACHER) to steady your nerves or to [...] Encounter [facility] [address] [place] [address] Lawrence Hayes MD [address] [facility] [address] [place] [address] 02/21/2025 12:20 PM EDT - 02/21/2025 2:15 PM EDT Surgery [facility] [address] [place] [address] Lawrence Hayes MD [address] [place] [address] INCISION AND DRAINAGE, LOWER EXTREMITY [68835 (CPT )] 03/03/2025 1:00 PM EDT Office Visit [facility] [address] [facility] [place] [address] Ary Santiago, DOG SHOW JUDGE [address] [facility] [address] [place] [address] 2025 7:50 AM EDT Office Visit [facility] [address] [place] [address] Stella Brown, DOG SHOW JUDGE [address] [place] [address] Scheduled Procedures Name Priority Associated Diagnoses Date/Ti me INCISION AND DRAINAGE, LOWER EXTREMITY Tibial plateau fracture, left, closed, initial encounter Surgical site infection 02/21/2025 12:20 PM EDT documented as of this encounter Goals Goal Patient Goal Type Associated Problems Recent Progress Patient-Stated? Author Autogenerat ed Goal Care Plan Autogenerated Problem No Stella Brown, DOG SHOW JUDGE documented as of this encounter Procedures Procedure [...] on 02/17/2025 2:39 PM us Stella Brown DOG SHOW JUDGE IMG CT PROCEDURES Final Re sult documented [...] as of this encounter Care Teams Direct Mail Clerk Relationship Specialty Start Date End Date Blaine Nava MD [address] [place] [address] #1 #1 JOHN Miller [address] PCP - General 02/17/25 documented as of this encounter
--- OUTSIDE RECORDS SUMMARY | 2025-02-18 12:26 | XMS_ITS | Encounter Summary ---
Author Organization [facility] Address [address] [place] [address] Care Team Providers Care Print Inspector Name Role Phone Renetta Pardo APRN Primary Care Provider [phone] Encounter Details Date Type Department Care Team (Late st Contact Info) Description 12/31/2024 Orders Only External Location [address] [place] [address] Mitchell Mosley PA [address] [place] [address] Social History Tobacco Use Types Packs/Day Years [...] in a fpc (including now)? No 09/12/2023 CAGE ASSESSMENT Answer [...] drink first t traci in the morning (EYE-MARBLE SUPERVISOR) to steady your nerves or to get rid of a hangover? 0 09/10/2023 CAGE Questionnaire Score 0 024 Utilities Answer Date Recorded In the past 12 months has th e [employer], gas, oil, or water company threatened [...] Hospital Encounter [facility] [address] [place] [address] Lawrence Hayes MD [address] [facility] [address] [place] [address] 02/21/2025 12:20 PM EDT - 02/21/2025 2:15 PM EDT Surgery [facility] OPERATING ROOM [address] [place] [address] Lawrence Hayes MD [address] [facility] [address] [place] [address] INCISION AND DRAINAGE, LOWER EXTREMITY [63910 (CPT )] 03/03/2025 1:00 PM EDT Office Visit [facility] [address] [place] [address] Ary Santiago, POTASH FLAKER [address] [facility] [address] [place] [address] 2025 7:50 AM EDT Office Visit [facility] Orthopaedic Surgery & Sports Medicine [address] 1[address] [place] [address] Stella Brown, POTASH FLAKER [address] [place] [address] Scheduled Procedures Name Priority Associated [...] documented as of this encounter Care Teams Print Inspector Relationship Specialty Start Date End Date Renetta Pardo APRN [address] [place] [address] [place] [address] PCP - General 09/09/23 02/16/25 documented as of this encounter
--- OUTSIDE RECORDS SUMMARY | 2025-02-18 12:26 | XMS_ITS | Encounter Summary ---
Author Organization [facility] Address [address] [place] [address] Care Team Providers Care Site Damage Prevention Technician Name Role Phone Renetta Pardo APRN Primary Care Provider [phone] Encounter Details Date Type Department Care Team (Late st Contact Info) Description 12/31/2024 Orders Only External Location [address] [place] [address] Mitchell Mosley PA [address] [place] [address] Social History [...] drink first t traci in the morning (EYE-CASTING ROOM HELPER) to steady your nerves or to get rid of a hangover? 0 09/10/2023 CAGE Questionnaire Score 0 024 Utilities Answer Date Recorded In the past 12 months has th e [employer], gas, oil, or water company threatened to [...] Hospital Encounter [facility] ROOM [address] [place] [address] Lawrence Hayes MD [address] [facility] [address] [place] [address] 02/21/2025 12:20 PM EDT - 02/21/2025 2:15 PM EDT Surgery PAV A OPERATING ROOM [address] [place] [address] Lawrence Hayes MD [address] [facility] [address] [place] [address] INCISION AND DRAINAGE, LOWER EXTREMITY [54626 (CPT )] 03/03/2025 1:00 PM EDT Office Visit [facility] [address] [place] [address] Ary Santiago, BUSINESS SUPPORT ASSOCIATE [address] [facility] [address] [place] [address] 2025 7:50 AM EDT Office Visit [facility] Orthopaedic Surgery & Sports Medicine [address] 1[address] [place] [address] Stella Brown, BUSINESS SUPPORT ASSOCIATE [address] [place] [address] Scheduled Procedures Name Priority Associated [...] documented as of this encounter Care Teams Site Damage Prevention Technician Relationship Specialty Start Date End Date Renetta Pardo APRN [address] [place] [address] [place] [address] PCP - General 09/09/23 02/16/25 documented as of this encounter
--- OUTSIDE RECORDS SUMMARY | 2025-02-18 12:28 | XMS_ITS | Encounter Summary ---
Author Organization Healthcare Address [address] [place] [id number] Care Team Providers Care Wallcovering Texturer Name Role Phone Renetta Pardo APRN Primary Care Provider [phone] Encounter Details Date Type Department Care Team (Late st Contact Info) Description 01/23/2025 Clinical Support [facility] [address] [place] [address] Gume Ibarra, PharmD [address] [place] [address] Social History Tobacco Use Types Packs/Day Years [...] drink first t traci in the morning (EYE-ENDODONTIST) to steady your nerves or to get rid of a hangover? 0 09/10/2023 CAGE Questionnaire Score 0 024 Utilities Answer Date Recorded In the past 12 months has e [employer], gas, oil, or water [employer] threatened to shut off services in your [...] Hospital Encounter [facility] RO[facility] [address] [place] [address] Lawrence Hayes MD [address] [address] 02/21/2025 12:20 PM EDT - 02/21/2025 2:15 PM EDT Surgery [facility] OPERATING ROOM [address] [place] [address] Lawrence Hayes MD [address] [place] [address] INCISION AND DRAINAGE, LOWER EXTREMITY [37891 (CPT )] 03/03/2025 1:00 PM EDT Office Visit [facility] [address] [place] [address] Ary Santiago, QUICKBOOKS BOOKKEEPER [address] [facility] [address] [place] [address] 2025 7:50 AM EDT Office Visit [facility] Orthopaedic Surgery & Sports Medicine [address], 1[address] [place] [address] Stella Brown, QUICKBOOKS BOOKKEEPER [address] [place] [address] Scheduled Procedures Name Priority Associated Diagnoses Date/Ti me INCISION AND DRAINAGE, LOWER EXTREMITY Tibial plateau fracture, left, closed, initial encounter Surgical site infection 02/21/2025 12:20 PM EDT documented as of this encounter Visit Diagnoses [...] documented as of this encounter Care Teams Wallcovering Texturer Relationship Specialty Start Date End Date Renetta Pardo, QUICKBOOKS BOOKKEEPER [address] [place] [address] Dr [address] [place] [address] PCP - General 09/09/23 02/16/25 documented as of this encounter
--- OUTSIDE RECORDS SUMMARY | 2025-02-18 12:28 | XMS_ITS | Clinical Summary ---
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 diagnosis: Closed fracture of left tibial plateau with routine healing, subsequent encounter [S82.142D] us Bob Nava MD LAB MICROBIOLOGY - GENERAL O RDERABLES Final Result Performing Organization Address [facility] [place] [address] * Anaerobic Culture (01/20/2025 10:42 AM EDT) Only the most recent of6 resultswithin the time period is included. Culture No growth at day 4 01/28/2025 7:09 AM EDT [facility] Swab Structure of left knee region / Unknown 01/20/2025 10:42 AM EDT 01/20/2025 11:25 AM EDT Comment:Pre-op diagnosis: Closed fracture of left tibial plateau with routine healing, subsequent encounter [S82.142D] us Bob Nava MD LAB MICROBIOLOGY - GENERAL O RDERABLES Final Result Performing Organization Address City/[facility] [place] [address] * Fungal Culture, Tissue and SYEDA (01/20/2025 10:30 AM EDT) Only the most recent of3 resultswithin the time period is included. Culture Reading Mycological 4 Weeks No Fungal Growth at 4 Weeks 02/18/2025 6:03 AM EDT [facility] SYEDA No fungal elements seen 02/18/2025 6:03 AM EDT [facility] Tissue Structure of left knee region / Unknown 01/20/2025 10:30 AM EDT 01/20/2025 11:23 AM EDT Comment:Pre-op diagnosis: Closed fracture of left tibial plateau with routine healing, subsequent encounter [S82.142D] us Bob Nava MD LAB MICROBIOLOGY - GENERAL O RDERABLES Final Result Performing Organization Address [facility] Co de Phone Number [facility] [address] [place] [address] * Tissue Culture and Gram Stain (01/20/2025 10:30 AM EDT) Only the most recent of3 resultswithin the time period is included. Culture No growth at day 4 2024 7:15 AM EDT [facility] Gram Stain Result No polymorphonuclear leukocytes seen 01/25/2025 7:15 AM EDT [facility] Gram Stain Result No organisms seen 01/25/2025 7:15 AM EDT [facility] Tissue Structure of left knee region / Unknown 01/20/2025 10:30 AM EDT 01/20/2025 11:23 AM EDT Comment:Pre-op diagnosis: Closed fracture of left tibial plateau with routine healing, subsequent encounter [S82.142D] us Bob Nava MD LAB MICROBIOLOGY - GENERAL O RDERABLES Final Result Performing Organization Address [facility] Co de Phone Number [facility] [address] [place] [address] * Peripheral IV (01/20/2025 10:10 AM EDT) Narrative Filemon Matute MD - 01/20/2025 10:10 AM EDT Filemon Matute MD 01/20/2025 10:25 AM Peripheral IV Date/Time: 01/20/2025 10:10 AM Placement Needle size: 18 G Location: hand Site prep: alcohol Technique: anatomical landmarks Attempts: 1 us Filemon Matute MD ANESTHESIA ORDERABLES Final Res ult * [place] AN ELECTIVE ENDOTRACHEAL AIRWAY, PB ANESTHESIA PLACEHOLDER [...] - 320 U/L 01/21/2025 12:17 PM EDT [facility] Blood Venous blood specimen / Unknown Venipuncture / Unknown 01/20/2025 3:40 AM EDT 01/20/2025 3:57 AM EDT Sachin Garza MD LAB BLOOD ORDERABLES Final R esult [facility] [address] [place] [address] * Protime-INR (01/20/2025 3:40 AM EDT) Only the most recent of5 resultswithin the time period is included. Pathologist [facility] Prothrombin Time 13.5 12.0 - 14.3 sec LAB COAGULATION METHOD 01/20/2025 4:17 AM EDT [facility] INR 1.0 0.9 - 1.1 LAB COAGULATION METHOD 01/20/2025 4:17 AM EDT [facility] Blood Venous blood specimen / Unknown Venipuncture / Unknown 01/20/2025 3:40 AM EDT 01/20/2025 3:56 AM EDT Narrative [facility] - 01/20/2025 4:17 AM EDT OPTIMAL INR RANGES FOR PATIENT ON ORAL ANTICOAGULANT THERAPY Prevention of venous thromboembolism INR 2.0 to 3.0 In patients with heart disease: Atrial fibrillation INR 2.0 to 3.0 Valvular heart disease INR 2.0 to 3.0 Tissue heart valves INR 2.0 to 3.0 Mechanical prosthetic valves INR 2.5 to 3.5 Prevention of recurrent AL INR 2.5 to 3.5 Sachin Garza MD LAB BLOOD [place] [address] * Vancomycin, random (01/20/2025 3:40 AM EDT) Only the most recent of2 resultswithin the time period is included. Pathologist [facility] Vancomycin, Random, Plasma 20.1 ug/mL 01/20/2025 4:51 AM EDT [facility] Blood Venous blood specimen / Unknown Venipuncture / Unknown 01/20/2025 3:40 AM EDT 01/20/2025 3:57 AM EDT us Sachin Garza MD LAB BLOOD ORDERABLES Final R esult [facility] [address] [place] [address] * Fungal Culture, Sterile Body Fluid (NOT CSF) and SYEDA (01/18/2025 3:28 PM EDT) Only the most recent of2 resultswithin the time period is included. Culture No Fungal Growth at 3 Weeks 02/10/2025 8:37 AM EDT [facility] SYEDA No fungal elements seen 02/10/2025 8:37 AM EDT [facility] Joint Fluid Topography unknown / Unknown Non-blood Collection / Unknown 01/18/2025 3:28 PM EDT 01/18/2025 3:28 PM EDT us Sachin Garza MD LAB MICROBIOLOGY - GENERAL O RDERAYASMINE Final Result Performing Organization Address City/[facility]/ZIP Co de Phone Number [facility] [address] [place] [address] * (ABNORMAL) Body Fluid Culture and Gram Stain (01/18/2025 3:28 PM EDT) Only the most recent of3 resultswithin the time period is included. Culture Heavy Growth 01/20/2025 8:34 AM EDT [facility] Culture Methicillin-Resista nt Staphylococcus aureus(AA) 01/20/2025 8:34 AM EDT [facility] Comment: For susceptibility results refer to: - [id number] The organism value for this result has been updated. These results have been appended to the previously preliminary verified report. Edited result: Previously reported as Staphylococcus aureus on 01/19/2025 at 0933 EDT. Staphylococcus aureus has been updated to reportable. Gram Stain Result Numerous Polymorphonuclear leukocytes 01/20/2025 8:34 AM EDT [facility] Gram Stain Result No organisms seen 01/20/2025 8:34 AM EDT [facility] Joint Fluid Topography unknown / Unknown Non-blood Collection / Unknown 01/18/2025 3:28 PM EDT 01/18/2025 3:28 PM EDT us Sachin Garza MD LAB MICROBIOLOGY - GENERAL O RDERABLES Final Result [facility] [address] [place] [address] * (ABNORMAL) Body Fluid Cell Count w/ Diff (01/18/2025 3:01 PM EDT) Only the most recent of2 resultswithin the time period is included. Color, Body fluid Red LAB HEMATOLOGY METHOD 01/18/2025 11:05 PM EDT [facility] Appearance, Body fluid Cloudy(A) LAB HEMATOLOGY METHOD 01/18/2025 11:05 PM EDT [facility] Volume, Body fluid 3.5 cc LAB HEMATOLOGY METHOD 01/18/2025 11:05 PM EDT [facility] Fluid Container Specimen received in EDTA tube LAB HEMATOLOGY METHOD 01/18/2025 11:05 PM EDT [facility] Red Blood Cell Count, Body fluid 299,000 uL LAB HEMATOLOGY METHOD 01/18/2025 11:05 PM EDT [facility] Total Nucleated Cell Count, Body fluid 873 uL LAB HEMATOLOGY METHOD 01/18/2025 11:05 PM EDT [facility] Neutrophils %, Body fluid 17 % LAB HEMATOLOGY METHOD 01/18/2025 11:05 PM EDT [facility] Lymphocytes %, Body fluid 55 % LAB HEMATOLOGY METHOD 01/18/2025 11:05 PM EDT [facility] Monocytes/Macro phages %, Body fluid 27 % LAB HEMATOLOGY METHOD 01/18/2025 11:05 PM EDT [facility] Eosinophils %, Body fluid 1 % LAB HEMATOLOGY METHOD 01/18/2025 11:05 PM EDT [facility] Lining/Mesothel ial Cells %, Body fluid 0 % LAB HEMATOLOGY METHOD 01/18/2025 11:05 PM EDT [facility] Neutrophils Absolute (PMN), Body fluid 148 uL LAB HEMATOLOGY METHOD 01/18/2025 11:05 PM EDT [facility] Lymphocytes Absolute, Body fluid 480 uL LAB HEMATOLOGY METHOD 01/18/2025 11:05 PM EDT [facility] Monocytes/Macro phages Absolute, Body fluid 236 uL LAB HEMATOLOGY METHOD 01/18/2025 11:05 PM EDT [facility] Eosinophils Absolute, Body fluid 9 uL LAB HEMATOLOGY METHOD 01/18/2025 11:05 PM EDT [facility] Basophils Absolute, Body fluid 0 uL LAB HEMATOLOGY METHOD 01/18/2025 11:05 PM EDT [facility] Lining/Mesothel ial Cells Absolute, Body fluid 0 uL LAB HEMATOLOGY METHOD 01/18/2025 11:05 PM EDT [facility] Comment, Body fluid None LAB HEMATOLOGY METHOD 01/18/2025 11:05 PM EDT [facility] Comment:This is an appended report. These results have been appended to a previously preliminary verified report. Basophils %, Body fluid 0 % LAB HEMATOLOGY METHOD 01/18/2025 11:05 PM EDT [facility] Joint Fluid Structure of left knee region / Unknown 01/18/2025 3:01 PM EDT 01/18/2025 3:28 PM EDT Sachin Garza MD LAB BODY FLUIDS AND STOOLS ORDERABLES NO SPECIMEN TYPE/SOURCE Final Result [facility] [address] [place] [address] * Body fluid, cytospin, pathologist interpretation (01/18/2025 3:01 PM EDT) Only the most recent of2 resultswithin the time period is included. Specimen Type Joint Fluid LAB HEMATOLOGY METHOD 01/20/2025 4:29 PM EDT [facility] Specimen Source, Body Fluid Knee, Left LAB HEMATOLOGY METHOD 01/20/2025 4:29 PM EDT [facility] Clinical Diagnosis, Body Fluid Left lower extremity cellulitis LAB HEMATOLOGY METHOD 01/20/2025 4:29 PM EDT [facility] Interpretation , Body Fluid Bloody specimen Acute and chronic inflammatory cells Correlation with microbiology studies recommended A resident was involved in the service. I attest I examined the relevant preparations for the specimens and confirmed the diagnosis or interpretation. 01/20/2025 4:29 PM EDT [facility] Pathologist Signature, Body Fluid 01/20/2025 4:29 PM EDT [facility] Comment:Reviewed by: Stephanie conti MD LAB CP ASR DISCLAIMER Yes 01/20/2025 4:29 PM EDT [facility] Joint Fluid Structure of left knee region / Unknown 01/18/2025 3:01 PM EDT 01/18/2025 3:28 PM EDT us Sachin Garza MD LAB BODY FLUIDS AND STOOLS O RDERABLES Final Result Performing Organization Address City/[facility]/ZIP Co de Phone Number [facility] [address] [place] [address] * Joint Fluid Crystals (01/18/2025 3:01 PM EDT) Crystals, Joint Fluid No Crystals Seen No Crystals Present 01/18/2025 5:28 PM EDT [facility] Joint Fluid Structure of left knee region / Unknown 01/18/2025 3:01 PM EDT 01/18/2025 3:28 PM EDT us Sachin Garza MD LAB BODY FLUIDS AND STOOLS O RDERABLES Final Result Performing Organization Address [facility] Co de Phone Number [facility] [address] [place] [address] * Joint Infection Panel by PCR (01/18/2025 12:17 PM EDT) Pathologist [facility] Anaerococcus prevotii/vaginalis PCR Result Not Detected Not Detected 01/18/2025 5:28 PM EDT [facility] Clostridium perfringens PCR Result Not Detected Not Detected 01/18/2025 5:28 PM EDT [facility] Cutibacterium avidum/granulosum PCR Result Not Detected Not Detected 01/18/2025 5:28 PM EDT [facility] Enterococcus faecalis PCR Result Not Detected Not Detected 01/18/2025 5:28 PM EDT [facility] Enterococcus faecium PCR Result Not Detected Not Detected 01/18/2025 5:28 PM EDT [facility] Finegoldia magna PCR Result Not Detected Not Detected 01/18/2025 5:28 PM EDT [facility] Parvimonas micra PCR Result Not Detected Not Detected 01/18/2025 5:28 PM EDT [facility] Peptoniphilus PCR Result Not Detected Not Detected 01/18/2025 5:28 PM EDT [facility] Peptostreptococcus anaerobius PCR Result Not Detected Not Detected 01/18/2025 5:28 PM EDT [facility] Staphylococcus aureus PCR Result Not Detected Not Detected 01/18/2025 5:28 PM EDT [facility] Staphylococcus lugdunensis PCR Result Not Detected Not Detected 01/18/2025 5:28 PM EDT [facility] Streptococcus spp PCR Result Not Detected Not Detected 01/18/2025 5:28 PM EDT [facility] Streptococcus agalactiae PCR Result Not Detected Not Detected 01/18/2025 5:28 PM EDT [facility] Streptococcus pneumoniae PCR Result Not Detected Not Detected 01/18/2025 5:28 PM EDT [facility] Streptococcus pyogenes PCR Result Not Detected Not Detected 01/18/2025 5:28 PM EDT [facility] Bacteroides fragilis PCR Result Not Detected Not Detected 01/18/2025 5:28 PM EDT [facility] Citrobacter PCR Result Not Detected Not Detected 01/18/2025 5:28 PM EDT [facility] Enterobacter cloacae complex PCR Result Not Detected Not Detected 01/18/2025 5:28 PM EDT [facility] Escherichia coli PCR Result Not Detected Not Detected 01/18/2025 5:28 PM EDT [facility] Haemophilus influenzae PCR Result Not Detected Not Detected 01/18/2025 5:28 PM EDT [facility] Kingella kingae PCR Result Not Detected Not Detected 01/18/2025 5:28 PM EDT [facility] Klebsiella aerogenes PCR Result Not Detected Not Detected 01/18/2025 5:28 PM EDT [facility] Klebsiella pneumoniae group PCR Result Not Detected Not Detected 01/18/2025 5:28 PM EDT [facility] Morganella morganii PCR Result Not Detected Not Detected 01/18/2025 5:28 PM EDT [facility] Neisseria gonorrhoeae PCR Result Not Detected Not Detected 01/18/2025 5:28 PM EDT [facility] Proteus spp PCR Result Not Detected Not Detected 01/18/2025 5:28 PM EDT [facility] Pseudomonas aeruginosa PCR Result Not Detected Not Detected 01/18/2025 5:28 PM EDT [facility] Salmonella spp PCR Result Not Detected Not Detected 01/18/2025 5:28 PM EDT [facility] Serratia marcescens PCR Result Not Detected Not Detected 01/18/2025 5:28 PM EDT [facility] Nelda PCR Result Not Detected Not Detected 01/18/2025 5:28 PM EDT [facility] Nelda albicans PCR Result Not Detected Not Detected 01/18/2025 5:28 PM EDT [facility] CTXM PCR Result Not Detected Not Detected 01/18/2025 5:28 PM EDT [facility] IMP PCR Result Not Detected Not Detected 01/18/2025 5:28 PM EDT [facility] KPC PCR Result Not Detected Not Detected 01/18/2025 5:28 PM EDT [facility] mecA/C and MREJ (MRSA) PCR Result Not Detected Not Detected 01/18/2025 5:28 PM EDT [facility] NDM PCR Result Not Detected Not Detected 01/18/2025 5:28 PM EDT [facility] OXA-48-like PCR Result Not Detected Not Detected 01/18/2025 5:28 PM EDT [facility] Jarret/B PCR Result Not Detected Not Detected 01/18/2025 5:28 PM EDT [facility] VIM PCR Result Not Detected Not Detected 01/18/2025 5:28 PM EDT [facility] Joint Fluid Synovial fluid specimen / Unknown Non-blood Collection / Unknown 01/18/2025 12:17 PM EDT 01/18/2025 3:24 PM EDT Narrative [facility] - 01/18/2025 5:28 PM EDT [...] RDERABLES Final Result Performing Organization Address City/State/[facility] Co de Phone Number [facility] [address] [place] [address] * [place] AN ELECTIVE ENDOTRACHEAL AIRWAY, PB ANESTHESIA PLACEHOLDER [...] Detected Not Detected 01/18/2025 9:36 AM EDT [facility] Swab Both anterior nares / Unknown Non-blood Collection / Unknown 01/18/2025 7:43 AM EDT 01/18/2025 8:19 AM EDT Narrative [facility] - 01/18/2025 9:36 AM EDT [...] MICROBIOLOGY - GENERAL O RDERABLES Final Result [facility] [address] [place] [address] * Vancomycin, Peak, Plasma Please draw ~2 hours after 1000 dose of vancomycin on Monday finishes infusing. Consider obtaining level via peripheral stick. If peripheral stick is not feasible, please ensure that line is flushed well prior to drawing l... (01/17/2025 2:03 PM EDT) Vancomycin, Peak, Plasma 22.0 20.0 - 40.0 ug/mL 01/17/2025 3:01 PM EDT [facility] Blood Venous blood specimen / Unknown Venipuncture / Unknown 01/17/2025 2:03 PM EDT 01/17/2025 2:32 PM EDT Narrative [facility] - 01/17/2025 3:01 PM EDT Therapeutic Peak level: 20-40ug/mL Supra-therapeutic Peak level: >40 ug/mL Sachin Garza MD LAB BLOOD ORDERABLES Final R esult Performing Organization Address [facility]/ZIP Co de Phone Number [facility] [address] [place] [address] * Vancomycin, Trough, Plasma Please draw ~30 minutes prior to dose due at 1000 on Monday. Please do NOT hold dose awaiting level to return. Consider obtaining level via peripheral stick. If peripheral stick is not feasible, please ensure that line ... (01/17/2025 9:53 AM EDT) [facility] Vancomycin, Trough, Plasma 12.5 10.0 - 20.0 ug/mL 01/17/2025 10:24 AM EDT [facility] Blood Venous blood specimen / Unknown Venipuncture / Unknown 01/17/2025 9:53 AM EDT 01/17/2025 9:57 AM EDT Narrative [facility] - 01/17/2025 10:24 AM EDT Therapeutic Trough level: 10-20ug/mL Supra-therapeutic Trough level: >20 ug/mL Sachin Garza MD LAB BLOOD ORDERABLES Final R esult Performing Organization Address [facility]/ZIP Co de Phone Number [facility] [address] [place] [address] * [place] Extremity Limited MSK or Soft [...] at day 5 01/21/2025 2:02 AM EDT [facility] Blood Venous blood specimen / Unknown Venipuncture / Unknown 01/16/2025 12:24 AM EDT 01/16/2025 1:12 AM EDT Narrative [facility] - 01/21/2025 2:02 AM EDT Low blood volume submitted, results may be compromised Gus Tierney APRN LAB MICROBIOLOGY - GENER AL ORDERABLES Final Result [facility] [address] [place] [address] * XR Chest 1 View (01/15/2025 11:21 [...] MD on 01/15/2025 11:40 PM Gus Tierney APRN IMG XR PROCEDURES Final Result * [...] ORDERA BLES Final Result [facility] B[facility] [address] [place] [address], [place] * ECG Adult (01/15/2025 10:46 PM EDT) Only the most recent of3 resultswithin the time period is included. EKG DIAGNOSIS CLASS Normal MUSE ECG Ventricular Rate 92 BPM MUSE ECG Atrial Rate 92 BPM MUSE ECG OH Interval 122 ms MUSE ECG QRSD Interval 102 ms MUSE ECG QT Interval 350 ms MUSE ECG QTC Interval 432 ms MUSE ECG [address] [facility] 56 degrees MUSE ECG R [facility] 44 degrees MUSE ECG T Wave [facility] 57 degrees MUSE ECG Diagnosis Normal sinus rhythm MUSE ECG Diagnosis Normal ECG MUSE ECG Diagnosis MUSE ECG Diagnosis Confirmed by Richard Mccracken ([id number]) on 01/16/2025 8:55:10 PM MUSE ECG 01/15/2025 10:4 6 PM EDT 01/16/2025 8:55 PM EDT Ye Navarro MD ECG ORDERABLES Final Resu lt MUSE ECG * (ABNORMAL) Blood gas panel, venous (01/15/2025 10:11 PM EDT) pH, Venous 7.39 7.32 - 7.43 LAB HEMATOLOGY METHOD 01/15/2025 10:14 PM EDT [facility] pCO2, Venous 47 40 - 55 mmHg LAB HEMATOLOGY METHOD 01/15/2025 10:14 PM EDT [facility] pO2, Venous 34 25 - 40 mmHg LAB HEMATOLOGY METHOD 01/15/2025 10:14 PM EDT [facility] SO2, Measured, Venous 68 65 - 80 % LAB HEMATOLOGY METHOD 01/15/2025 10:14 PM EDT [facility] Base Excess, Venous 2.8 -2.0 - 3.0 mmol/L LAB HEMATOLOGY METHOD 01/15/2025 10:14 PM EDT [facility] Bicarbonate, Calculated, Venous 29(H) 22 - 26 mmol/L LAB HEMATOLOGY METHOD 01/15/2025 10:14 PM EDT [facility] Hematocrit, Whole Blood 40.4 40.0 - 51.0 % LAB HEMATOLOGY METHOD 01/15/2025 10:14 PM EDT [facility] Sodium, Whole Blood 135(L) 136 - 145 mmol/L LAB HEMATOLOGY METHOD 01/15/2025 10:14 PM EDT [facility] Potassium, Whole Blood 4.3 3.6 - 4.9 mmol/L LAB HEMATOLOGY METHOD 01/15/2025 10:14 PM EDT [facility] Chloride, Whole Blood 99 97 - 107 mmol/L LAB HEMATOLOGY METHOD 01/15/2025 10:14 PM EDT [facility] Glucose, Whole Blood 110(H) 74 - 99 mg/dL LAB HEMATOLOGY METHOD 01/15/2025 10:14 PM EDT [facility] Lactate, Venous, Whole Blood 1.1 0.5 - 2.2 mmol/L LAB HEMATOLOGY METHOD 01/15/2025 10:14 PM EDT [facility] Ionized Calcium, Whole Blood 4.6 4.6 - 5.1 mg/dL LAB HEMATOLOGY METHOD 01/15/2025 10:14 PM EDT [facility] Blood Venous blood specimen / Unknown Venipuncture / Unknown 01/15/2025 10:11 PM EDT 01/15/2025 10:12 PM EDT Gus Tierney APRN LAB BLOOD ORDERABLES Fin al Result [facility] [address] [place] [address] * Lactate, venous (01/02/2025 2:46 AM EDT) Only the most recent of4 resultswithin the time period is included. Lactate, Venous, Whole Blood 1.8 0.5 - 2.2 mmol/L LAB HEMATOLOGY METHOD 01/02/2025 2:55 AM EDT [facility] Blood Venous blood specimen / Unknown Venipuncture / Unknown 01/02/2025 2:46 AM EDT 01/02/2025 2:53 AM EDT Lawrence Hayes MD LAB BLOOD ORDERABLES Final Re sult Performing Organization Address City/[facility] Co de Phone Number [facility] [address] [place] [address] * FL Less than 1 Hour Intraoperative (01/01/2025 12:51 PM EDT) Narrative IMAGING - 01/01/2025 12:53 PM EDT Images were obtained for surgical purposes. See Lawrence Hayes's surgical note in the patient's chart for the findings. Lawrence Hayes MD IMG FLUOROSCOPY PROCEDURES Fi nal Result Performing Organization Address [facility] Co de Phone Number IMAGING * OH AN ELECTIVE ENDOTRACHEAL AIRWAY, PB ANESTHESIA PLACEHOLDER (01/01/2025 11:28 AM EDT) Narrative Rubén Millan CRNA - 01/01/2025 11:28 AM EDT Rubén Millan CRNA 01/01/2025 11:31 AM Airway Date/Time: 01/01/2025 11:28 AM Reason: elective Airway not difficult General Information and Staff Patient location during procedure: [place] MEDICAL DATA ENTRY CLERK: Rubén Millan CRNA Performed: MEDICAL DATA ENTRY CLERK Patient Condition Indications for airway management: anesthesia [...] 5.6 <5.7 % 01/01/2025 8:29 AM EDT [facility] Blood Venous blood specimen / Unknown Venipuncture / Unknown 01/01/2025 7:17 AM EDT 01/01/2025 7:23 AM EDT Narrative [facility] - 01/01/2025 8:29 AM EDT HA1C Interpretive Data: Diagnosis of Diabetes: Diabetic > or = 6.5% Pre-diabetic 5.7 to 6.4% Non-diabetic < or = 5.6% Glycemic Targets for Type I and Type II Diabetics: Non- Adults <7.0% Adults <6.0% Children and Adolescents <7.5% Source: [place] [employer]. Standards of medical care in diabetes,2017. Diabetes Care.2017:40 (suppl 1):S1-S135. us Lawrence Hayes MD LAB BLOOD ORDERABLES Final Re sult [facility] [address] [place] [address] * XR Ankle Left 3+ Views (01/01/2025 [...] Reactive Non Reactive 01/01/2025 1:33 AM EDT [facility] Comment:Screening for HIV 1 & 2 antibodies, and P24 antigen is NONREACTIVE. No confirmatory testing is required. Blood Venous blood specimen / Unknown Venipuncture / Unknown 01/01/2025 12:35 AM EDT 01/01/2025 12:52 AM EDT us Kareem Perera MD LAB BLOOD ORDERABLES Final Resu lt [facility] [address] [place] [address] * Hepatitis C Antibody - ED (01/01/2025 12:35 AM EDT) Hepatitis C Antibody Negative Negative 01/01/2025 1:33 AM EDT [facility] Blood Venous blood specimen / Unknown Venipuncture / Unknown 01/01/2025 12:35 AM EDT 01/01/2025 12:52 AM EDT us Kareem Perera MD LAB BLOOD [place] [address] * Light Green Top (01/01/2025 12:27 AM EDT) Pathologist [facility] Extra Hold for add-ons 01/01/2025 3:02 AM EDT [facility] Comment:Auto resulted. Blood Venous blood specimen / Unknown 01/01/2025 12:27 AM EDT 01/01/2025 12:42 AM EDT us Kareem Perera MD LAB BLOOD ORDERABLES Final Resu lt Performing Organization Address City/[facility]/[place] [address] * CT OUTSIDE IMAGES (12/31/2024 7:02 PM EDT) Anatomical Region Laterality Modality Computed Tomogra phy 12/31/2024 7:02 PM EDT us External Provider IMG CT PROCEDURES Final Result * XR MSK OUTSIDE IMAGES (12/31/2024 5:54 PM EDT) Only the most recent of4 resultswithin the time period is included. Anatomical Region Laterality Modality Radiographic Patsy ging 12/31/2024 5:54 PM EDT us Mitchell ZULUAGA IMG XR PROCEDURES Final Result from Last 3 Months Additional Health Concerns Active Problems Noted Date Diagnosed Date Autogenerated Problem 02/17/2025 Infection Onset Date Last Indicated MRSA 01/18/2025 01/18/2025 Insurance PASSPORT MEDICAID [id number] Advance Directives * Full Code [...] Patient has decision-making capacity? 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
--- OUTSIDE RECORDS SUMMARY | 2025-02-18 12:28 | XMS_ITS | Encounter Summary ---
Author Organization Healthcare Address [address] [place] [address] Care Team Providers Care Health Physicist Name Role Phone Renetta Pardo APRN Primary Care Provider +1 -[phone] Encounter Details Date Type Department Care Team [...] any time in the past 12 m [facility], were you homeless or living [...] drink first t traci in the morning (EYE-SAND MILLER) to steady your nerves or to get [...] Author No Risk Indicated 01/20/2025 8:00 PM EDTaryn Ventura RN * Question Answer Date of Assessment Author 1. Wish to be (Past 1 Month) No 025 8:00 PM BREANNAT Taryn Miranda, SHEREEN 2. Non-Specific Active Suici mike Thoughts (Past 1 Month) No 01/20/2025 8:00 PM EDT Forrest Miranda RN 6. Suicidal Behavior (Lifetime) No 8:00 PM Taryn Baeza, RN documented as of this encounter Plan of Treatment Upcoming Encounters Date Type Department Care Team (Latest Contact Info) Description 02/21/2025 12:20 PM EDT Hospital Encounter [facility] [address] [place] [address] Lawrence Hayes MD [address] [address] 02/21/2025 12:20 PM EDT - 02/21/2025 2:15 PM EDT Surgery [facility] [address] [place] [address] Lawrence Hayes MD [address] [phone] INCISION AND DRAINAGE, LOWER EXTREMITY [98046 (CPT )] 03/03/2025 1:00 PM EDT Office Visit [facility] [address] [facility] [place] [address] Ary Santiago, SALES ASSOCIATE FISHING [address] [facility] [address] [place] [address] 2025 7:50 AM EDT Office Visit [facility] Orthopaedic Surgery & Sports Medicine [address], 1st Floor [address] [place] [address] Stella Brown, SALES ASSOCIATE FISHING [address] [place] [address] Scheduled Procedures Name Priority Associated [...] as of this encounter Care Teams Health Physicist Relationship Specialty Start Date End Date Renetta Pardo, SALES ASSOCIATE FISHING [address] [place] [address] [address] [place] [address] PCP - General 09/09/23 02/16/25 documented as of this encounter
--- OUTSIDE RECORDS SUMMARY | 2025-02-18 12:28 | XMS_ITS | Encounter Summary ---
Author Organization Healthcare Address [address] [place] [address] Care Team Providers Care Plaster Pattern Caster Name Role Phone Renetta Pardo APRN Primary Care Provider +1 [phone] Encounter Details Date Type Department Care Team (Late st Contact Info) Description 01/24/2025 Telephone [facility] Orthopaedic Surgery & Sports Medicine [address], 1st Floor [address] [place] [address] Camden Vital, PARKS AND RECREATION WORKER & ACUTE CARE SURG SVCS ADMIN Social [...] drink first t traci in the morning (EYE-REAL ESTATE AGENT/BROKER) to steady your nerves or to get rid of a hangover? 0 09/10/2023 CAGE Questionnaire Score 0 024 Utilities Answer Date Recorded In the past 12 months has th e [employer], gas, oil, or water [employer] threatened to shut off services in your [...] Hospital Encounter [facility] [address] [place] [address] Lawrence Hayes MD [address] [place] [address] 02/21/2025 12:20 PM EDT - 02/21/2025 2:15 PM EDT Surgery [facility] RO[facility] [address] [place] [address] Lawrence Hayes MD [address] [place] [address] INCISION AND DRAINAGE, LOWER EXTREMITY [35969 (CPT )] 03/03/2025 1:00 PM EDT Office Visit [facility] [address] [place] [address] Ary Santiago, OYSTER PREPARER [address] [facility] [address] [place] [address] 2025 7:50 AM EDT Office Visit [facility] Orthopaedic Surgery & Sports Medicine [address], 1st Floor [address] [place] [address] Stella Brown, OYSTER PREPARER [address] [place] [address] Scheduled Procedures Name Priority Associated [...] documented as of this encounter Care Teams Plaster Pattern Caster Relationship Specialty Start Date End Date Renetta Pardo, OYSTER PREPARER [address] [place] [address] [address] [place] [address] PCP - General 09/09/23 02/16/25 documented as of this encounter
--- OUTSIDE RECORDS SUMMARY | 2025-02-18 12:28 | XMS_ITS | Encounter Summary ---
Author Organization Healthcare Address [address] [place] [address] Care Team Providers Care Candle Wrapper Name Role Phone Renetta Pardo APRN Primary Care Provider [phone] [phone] Encounter Details Date Type Department Care Team (Late st Contact Info) Description 01/23/2025 Clinical Support [facility] [address] [place] [address] Sonia Meyer, PharmD Social History Tobacco Use [...] time in the past 12 m [facility], were you homeless or living in [...] drink first t traci in the morning (EYE-INDUCTION MACHINE SETTER) to steady your nerves or to get [...] Discharge Communication: Confirmation of IV Antimicrobials Home [facility], Infusion [facility]; Comments ID / OPAT pharmacist called and spoke with chon Vega at [facility] to confirm orders for daptomycin 1100 mg IV every 24 hours until 03/03/25. Sonia Meyer PharmD, [facility] Clinical Pharmacist Infectious Diseases, OPAT Available via [employer] Secure Chat documented in this encounter Plan of Treatment Upcoming Encounters Date Type Department Care Team (Latest Contact Info) Description 02/21/2025 12:20 PM EDT Hospital Encounter [facility] [address] [place] [address] Lawrence [facility] [address] [facility] [address] [place] [address] 02/21/2025 12:20 PM EDT - 02/21/2025 2:15 PM EDT Surgery [facility] RO[facility] [address] [place] [address] Lawrence [facility] MD [address] [facility] [address] [place] [address] INCISION AND DRAINAGE, LOWER EXTREMITY [45454 (CPT )] 03/03/2025 1:00 PM EDT Office Visit [facility] [address] [place] [address] Ary Santiago, RESIDENTIAL ENERGY AUDITOR [address] [facility] [address] [place] [address] 2025 7:50 AM EDT Office Visit [facility] Orthopaedic Surgery & Sports Medicine [address], 1st Floor [address] [place] [address] Stella Brown, RESIDENTIAL ENERGY AUDITOR [address] [facility] [address] [place] [address] Scheduled Procedures Name Priority Associated [...] documented as of this encounter Care Teams Candle Wrapper Relationship Specialty Start Date End Date Renetta Pardo, RESIDENTIAL ENERGY AUDITOR [address] [place] [address] [address] [place] [address] PCP - General 09/09/23 02/16/25 documented as of this encounter
--- OUTSIDE RECORDS SUMMARY | 2025-02-18 12:29 | XMS_ITS | Encounter Summary ---
Author Organization Healthcare Address [address] [place] [address] Care Team Providers Care Healthcare Corporate Account Director Name Role Phone Renetta Pardo APRN Primary Care Provider +1 [phone] Encounter Details Date Type Department Care Team [...] in the past 12 m [facility], were you homeless or living in [...] drink first t traci in the morning (EYE-FIELD MAP TECHNICIAN) to steady your nerves or to [...] Hospital Encounter [facility]ATING ROOM [address] [place] [address] Lawrence Hayes MD [address] [place] [address] 02/21/2025 12:20 PM EDT - 02/21/2025 2:15 PM EDT Surgery [facility]PERATING ROOM [address] [place] [address] Lawrence Hayes MD [address] [place] [address] INCISION AND DRAINAGE, LOWER EXTREMITY [15632 (CPT )] 03/03/2025 1:00 PM EDT Office Visit [facility] [address] [facility] [place] [address] Ary Santiago, HATCHERY ATTENDANT [address] [facility] [address] [place] [address] 2025 7:50 AM EDT Office Visit [facility] Orthopaedic Surgery & Sports Medicine [address], 1st Floor [address] [place] [address] Stella Brown, HATCHERY ATTENDANT [address] [place] [address] Scheduled Procedures Name Priority Associated [...] documented as of this encounter Care Teams Healthcare Corporate Account Director Relationship Specialty Start Date End Date Renetta Pardo, HATCHERY ATTENDANT [address] [place] [address] [address] [place] [address] PCP - General 09/09/23 02/16/25 documented as of this encounter
--- OUTSIDE RECORDS SUMMARY | 2025-02-18 12:29 | XMS_ITS | Encounter Summary ---
Author Organization [facility] Address [address] [place] [address] Care Team Providers Care Wallpaper Consultant Name Role Phone Renetta Pardo APRN Primary Care Provider +1 [phone] Encounter Details Date Type Department Care Team (Late st Contact Info) Description 12/31/2024 Orders Only External Location [address] [place] [address] Provider, External Social History Tobacco Use Types [...] in a assisted (including now)? No 09/12/2023 CAGE ASSESSMENT Answer [...] drink first t traci in the morning (EYE-AIR TRAFFIC SYSTEMS TECHNICIAN) to steady your nerves or to [...] 1 Month) No 025 9:05 AM EDT Dials, Genoveva M, RN 2. Non-Specific Active Suici mike Thoughts (Past 1 Month) No 01/01/2025 9:05 AM EDT Genoveva Branham, RN 6. Suicidal Behavior (Lifetime) No 9:05 AM EDT Genoveva Branham RN documented as of this encounter Plan of Treatment Upcoming Encounters Date Type Department Care Team (Latest Contact Info) Description 02/21/2025 12:20 PM EDT Hospital Encounter [facility]ATING ROOM [address] [place] [address] Lawrence Hayes MD [id number] [place] [address] 02/21/2025 12:20 PM EDT - 02/21/2025 2:15 PM EDT Surgery [facility] A OPERATING ROOM [address] [place] [address] Lawrence Hayes MD [id number] [place] [address] INCISION AND DRAINAGE, LOWER EXTREMITY [98229 (CPT )] 03/03/2025 1:00 PM EDT Office Visit [facility] [address] [place] [address] Ary Santiago, PASSPORT SUPPORT ASSOCIATE [address] [facility] [address] [place] [address] 2025 7:50 AM EDT Office Visit [facility] Orthopaedic Surgery & Sports Medicine [address], 1st Floor [address] [place] [address] Stella Brown, PASSPORT SUPPORT ASSOCIATE [address] [facility] [address] [place] [address] Scheduled Procedures Name Priority Associated [...] documented as of this encounter Care Teams Wallpaper Consultant Relationship Specialty Start Date End Date Renetta Pardo APRN [address] [place] [address] [place] [address] PCP - General 09/09/23 02/16/25 documented as of this encounter
--- OUTSIDE RECORDS SUMMARY | 2025-02-18 12:29 | XMS_ITS | Encounter Summary ---
Author Organization Healthcare Address [address] [place] [address] Care Team Providers Care Client Service Representative Name Role Phone Renetta Pardo APRN Primary Care Provider [phone] [phone] Encounter Details Date Type Department Care Team [...] any time in the past 12 m [facility], were you homeless or living in [...] drink first t traci in the morning (EYE-SENIOR JAVA PROGRAMMER ANALYST) to steady your nerves or to [...] Hospital Encounter [facility] A OPERATING ROOM [address] [address] Lawrence Hayes MD [address] [place] [address] 02/21/2025 12:20 PM EDT - 02/21/2025 2:15 PM EDT Surgery [facility] A OPERATING ROOM [address] [address] Lawrence Hayes MD [id number] [place] [address] INCISION AND DRAINAGE, LOWER EXTREMITY [21616 (CPT )] 03/03/2025 1:00 PM EDT Office Visit [facility] [address] [place] [address] Ary Santiago APRN [address] [facility] 100 [place] [address] 2025 7:50 AM EDT Office Visit [facility] Orthopaedic Surgery & Sports Medicine [address], 1st Floor [address] [place] [address] Stella Brown, FIELD EDUCATION DIRECTOR [address] [place] [address] Scheduled Procedures Name Priority Associated [...] documented as of this encounter Care Teams Client Service Representative Relationship Specialty Start Date End Date Renetta Pardo, FIELD EDUCATION DIRECTOR [address] [place] [address] [address] [place] [address] PCP - General 09/09/23 02/16/25 documented as of this encounter
--- OUTSIDE RECORDS SUMMARY | 2025-02-18 12:29 | XMS_ITS | Encounter Summary ---
Author Organization [facility] Address [address] [place] [address] Care Team Providers Care Roof Cement And Paint Maker Helper Name Role Phone Blaine Nava MD Primary Care Provider [phone] Encounter Details Date Type Department Care Team (Latest Contact Info) Description 02/17/2025 Travel Social History Tobacco Use Types Packs/Day [...] any time in the past 12 m [facility], were you homeless or living in [...] drink first t traci in the morning (EYE-MANUFACTURING WEAVER) to steady your nerves or to get [...] Hospital Encounter PAV A OPERATING ROOM [address] [place] [address] Lawrence Hayes MD [id number] [place] [address] 02/21/2025 12:20 PM EDT - 02/21/2025 2:15 PM EDT Surgery PAV A OPERATING ROOM [address] [address] Lawrence Hayes MD [id number] [place] [address] INCISION AND DRAINAGE, LOWER EXTREMITY [75041 (CPT )] 03/03/2025 1:00 PM EDT Office Visit [facility] [address] [place] [address] Ary Santiago APRN [address] [facility] 100 [place] [address] 2025 7:50 AM EDT Office Visit [facility] Orthopaedic Surgery & Sports Medicine [address], 1st Floor [address] [place] [address] Stella Brown, WOOL GRADER [address] [place] [address] Scheduled Procedures Name Priority Associated Diagnoses Date/Ti me INCISION AND DRAINAGE, LOWER EXTREMITY Tibial plateau fracture, left, closed, initial encounter Surgical site infection 02/21/2025 12:20 PM EDT documented as of this encounter Goals Goal Patient Goal Type Associated Problems Recent Progress Patient-Stated? Author Autogenerat ed Goal Care Plan Autogenerated Problem No Stella Brown, WOOL GRADER documented as of this encounter Visit Diagnoses Not on filedocumented in this encounter Additional Health Concerns Active [...] documented as of this encounter Care Teams Roof Cement And Paint Maker Helper Relationship Specialty Start Date End Date Blaine Nava MD [address] [place] [address] #1 #1 Angela [place] [address] PCP - General 02/17/25 documented as of this encounter
--- OUTSIDE RECORDS SUMMARY | 2025-02-18 12:29 | XMS_ITS | Encounter Summary ---
Author Organization [facility] Address [address] [place] [address] Care Team Providers Care Comb Capper Name Role Phone Renetta Pardo APRN Primary Care Provider [phone] Encounter Details Date Type Department Care Team (Late st Contact Info) Description 01/07/2025 Telephone [facility] Orthopaedic Surgery & Sports Medicine [address], 1st Floor [address] [place] [address] Cam[place] Vital, COMPUTER TECHNOLOGY INSTRUCTOR & ACUTE CARE SURG SVCS ADMIN Social [...] drink first t traci in the morning (EYE-LAP CHECKER) to steady your nerves or to [...] Hospital Encounter PAV A OPERATING ROOM [address] [place] [address] Lawrence Hayes MD [address] [facility] [address] [place] [address] 02/21/2025 12:20 PM EDT - 02/21/2025 2:15 PM EDT Surgery PAV A OPERATING ROOM [address] [place] [address] Lawrence Hayes MD [address] [place] [address] INCISION AND DRAINAGE, LOWER EXTREMITY [00777 (CPT )] 03/03/2025 1:00 PM EDT Office Visit [facility] [address] [place] [address] Ary Santiago, MANAGER HUMAN RESOURCES [address] [facility] [address] [place] [address] 2025 7:50 AM EDT Office Visit [facility] Orthopaedic Surgery & Sports Medicine [address], 1st Floor [address] [place] [address] Stella Brown, MANAGER HUMAN RESOURCES [address] [place] [address] Scheduled Procedures Name Priority Associated [...] documented as of this encounter Care Teams Comb Capper Relationship Specialty Start Date End Date Renetta Pardo APRN [address] [place] [address] [place] [address] PCP - General 09/09/23 02/16/25 documented as of this encounter
--- OUTSIDE RECORDS SUMMARY | 2025-02-18 12:29 | XMS_ITS | Encounter Summary ---
Author Organization [facility] Address [address] [place] [address] Care Team Providers Care Load Manager Name Role Phone Renetta Pardo APRN Primary Care Provider [phone] [phone] Encounter Details Date Type Department Care Team (Late st Contact Info) Description 12/31/2024 Orders Only External Location [address] [place] [address] Mitchell Mosley PA [address] [place] [address] Social History Tobacco Use Types Packs/Day [...] drink first t traci in the morning (EYE-BUSINESS PLANNING DIRECTOR) to steady your nerves or to get rid of a hangover? 0 09/10/2023 CAGE Questionnaire Score 0 024 Utilities Answer Date Recorded In the past 12 months has th e [employer], gas, oil, or water company threatened to [...] Hospital Encounter PAV A OPERATING ROOM [address] [place] [address] Lawrence Hayes MD [address] [facility] [address] [place] [address] 02/21/2025 12:20 PM EDT - 02/21/2025 2:15 PM EDT Surgery PAV A OPERATING ROOM [address] [place] [address] Lawrence Hayes MD [address] [facility] [address] [place] [address] INCISION AND DRAINAGE, LOWER EXTREMITY [01527 (CPT )] 03/03/2025 1:00 PM EDT Office Visit [facility] [address] [place] [address] Ary Santiago, RESIDENCE LEASING AGENT [address] [facility] [address] [place] [address] 2025 7:50 AM EDT Office Visit [facility] Orthopaedic Surgery & Sports Medicine [address], 1st Floor [address] [place] [address] Stella Brown, RESIDENCE LEASING AGENT [address] [place] [address] Scheduled Procedures Name Priority Associated [...] documented as of this encounter Care Teams Load Manager Relationship Specialty Start Date End Date Renetta Pardo APRN [address] [place] [address] [place] [address] PCP - General 09/09/23 02/16/25 documented as of this encounter
--- OUTSIDE RECORDS SUMMARY | 2025-02-18 12:29 | XMS_ITS | Encounter Summary ---
Author Organization [facility] Address [address] [place] [address] Care Team Providers Care Physician/Allergy/Immunology Name Role Phone Renetta Pardo APRN Primary Care Provider [phone] Encounter Details Date Type Department Care Team (Late st Contact Info) Description 12/31/2024 Orders Only External Location [address] [place] [address] Mitchell Mosley PA [address] [place] [address] Social History Tobacco Use Types Packs/Day [...] drink first t traci in the morning (EYE-ASPHALT PATCHER) to steady your nerves or to get rid of a hangover? 0 09/10/2023 CAGE Questionnaire Score 0 024 Utilities Answer Date Recorded In the past 12 months has th e [employer], gas, oil, or water company threatened to [...] Hospital Encounter [facility] A OPERATING ROOM [address] [place] [address] Lawrence Hayes MD [address] [facility] [address] [place] [address] 02/21/2025 12:20 PM EDT - 02/21/2025 2:15 PM EDT Surgery [facility] A OPERATING ROOM [address] [place] [address] Lawrence Hayes MD [address] [facility] [address] [place] [address] INCISION AND DRAINAGE, LOWER EXTREMITY [48611 (CPT )] 03/03/2025 1:00 PM EDT Office Visit [facility] [address] [place] [address] Ary Santiago, STONE BREAKER [address] [facility] [address] [place] [address] 2025 7:50 AM EDT Office Visit [facility] Orthopaedic Surgery & Sports Medicine [address], 1[address] [place] [address] Stella Brown, STONE BREAKER [address] [place] [address] Scheduled Procedures Name Priority Associated [...] documented as of this encounter Care Teams Physician/Allergy/Immunology Relationship Specialty Start Date End Date Renetta Pardo APRN [address] [place] [address] [place] [address] PCP - General 09/09/23 02/16/25 documented as of this encounter
--- OUTSIDE RECORDS SUMMARY | 2025-02-18 12:29 | XMS_ITS | Encounter Summary ---
Author Organization [facility] Address [address] [place] [address] Care Team Providers Care Prefitter Name Role Phone Renetta Pardo APRN Primary Care Provider [phone] Encounter Details Date Type Department Care Team [...] in a custodial (including now)? No 09/12/2023 CAGE ASSESSMENT Answer [...] first t traci in the morning (EYE-TEMPLATE CLERK) to steady your nerves or to [...] 1 Month) No 01/01/2025 9:05 AM EDT Dialdavid, Genoveva M, RN 6. Suicidal Behavior (Lifetime) No 9:05 AM EDT Genoveva Branham RN documented as of this encounter Plan of Treatment Upcoming Encounters Date Type Department Care Team (Latest Contact Info) Description 02/21/2025 12:20 PM EDT Hospital Encounter P[facility] A OPERATING ROOM [address] [place] [address] Lawrence Hayes MD [address] [facility] [address] [place] [address] 02/21/2025 12:20 PM EDT - 02/21/2025 2:15 PM EDT Surgery [facility] A OPERATING ROOM [address] [place] [address] Lawrence Hayes MD [id number] [place] [address] INCISION AND DRAINAGE, LOWER EXTREMITY [68258 (CPT )] 03/03/2025 1:00 PM EDT Office Visit [facility] [address] [place] [address] Ary Santiago, CLEANER AND TRIMMER [address] [facility] [place] [address] [place] [address] 2025 7:50 AM EDT Office Visit [facility] Orthopaedic Surgery & Sports Medicine [address], 1[address] [place] [address] Stella Brown, CLEANER AND TRIMMER [address] [facility] [address] [place] [address] Scheduled Procedures Name Priority Associated [...] documented as of this encounter Care Teams Prefitter Relationship Specialty Start Date End Date Renetta Pardo APRN [address] [place] [address] [place] [address] PCP - General 09/09/23 02/16/25 documented as of this encounter
--- OUTSIDE RECORDS SUMMARY | 2025-02-18 12:29 | XMS_ITS | Encounter Summary ---
Author Organization [facility] Address [address] [place] [address] Care Team Providers Care What Job Titles Mean Name Role Phone Renetta Pardo APRN Primary Care Provider [phone] Encounter Details Date Type Department Care Team [...] a long term (including now)? No 09/12/2023 CAGE ASSESSMENT Answer [...] drink first t traci in the morning (EYE-STEWARD/STEWARDESS ROOM) to steady your nerves or to get [...] Hospital Encounter PAV A OPERATING ROOM [address] [place] [address] Lawrence Hayes MD [address] [facility] [address] [place] [address] 02/21/2025 12:20 PM EDT - 02/21/2025 2:15 PM EDT Surgery PAV A OPERATING ROOM [address] [place] [address] Lawrence Hayes MD [address] [facility] [address] [place] [address] INCISION AND DRAINAGE, LOWER EXTREMITY [60938 (CPT )] 03/03/2025 1:00 PM EDT Office Visit [facility] [address] [place] [address] Ary Santiago, BUSHEL GIRL [address] [facility] [address] [place] [address] 2025 7:50 AM EDT Office Visit [facility] Orthopaedic Surgery & Sports Medicine [address], 1[address] [place] [address] Stella Brown, BUSHEL GIRL [address] [facility] [address] [place] [address] Scheduled Procedures Name Priority Associated [...] documented as of this encounter Care Teams What Job Titles Mean Relationship Specialty Start Date End Date Renetta Pardo APRN [address] [place] [address] [place] [address] PCP - General 09/09/23 02/16/25 documented as of this encounter
--- OUTSIDE RECORDS SUMMARY | 2025-02-18 12:29 | XMS_ITS | Encounter Summary ---
Author Organization [facility] Address [address] [place] [address] Care Team Providers Care Employment Training Specialist Name Role Phone Renetta Pardo APRN Primary Care Provider [phone] Blaine Nava MD Primary Care Provider [phone] Reason for Visit * Reason Onset Date Comments HCN - Patient Message 01/27/2025 Encounter Details Date Type Department Care Team (Late st Contact Info) Description 01/27/[address] [facility] Orthopaedic Surgery & Sports Medicine [address], 1st [address] [place] [address] Lawrence Hayes MD [address] [place] [address] HCN - Patient Message Social [...] any time in the past 12 m [facility], were you homeless or living in [...] first t traci in the morning (EYE-COMMERCIAL PAINTER) to steady your nerves or to get [...] Please call to advise Best contact number: [phone] (mobile) Optimal time of day to reach [...] Hospital Encounter PAV A OPERATING ROOM [address] [place] [address] Lawrence Hayes MD [address] [facility] [address] [place] [address] 02/21/2025 12:20 PM EDT - 02/21/2025 2:15 PM EDT Surgery PAV A OPERATING ROOM [address] [place] [address] Lawrence Hayes MD [id number] [place] [address] INCISION AND DRAINAGE, LOWER EXTREMITY [43203 (CPT )] 03/03/2025 1:00 PM EDT Office Visit [facility] [address] [place] [address] Ary Santiago, MANAGER INFUSION [address] [facility] [address] [place] [address] 2025 7:50 AM EDT Office Visit [facility] Orthopaedic Surgery & Sports Medicine [address], 1[address] [place] [address] Stella Brown, MANAGER INFUSION [address] [place] [address] Scheduled Procedures Name Priority Associated [...] documented as of this encounter Care Teams Employment Training Specialist Relationship Specialty Start Date End Date Renetta Pardo APRN [address] [place] [address] [place] [address] PCP - General 09/09/23 02/16/25 Blaine Nava MD [address] [place] [address] [address] [place] [address] PCP - General 02/17/25 documented as of this encounter
--- OUTSIDE RECORDS SUMMARY | 2025-02-18 12:29 | XMS_ITS | Encounter Summary ---
Author Organization [facility] Address [address] 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 [address] [place] [address] Ary Santiago APRN [address] [facility] [address] [place] [address] 2025 7:50 AM EDT Office Visit [facility] Orthopaedic Surgery & Sports Medicine [address], 1[address] [place] [address] Stella Brown, PLATING FOREMAN [address] [place] [address] Scheduled Procedures Name Priority Associated [...] documented as of this encounter Care Teams Elastic Yarn Twister Relationship Specialty Start Date End Date Renetta Pardo, PLATING FOREMAN [address] [place] [address] Dr [address] [place] [address] PCP - General 09/09/23 02/16/25 documented as of this encounter
[2025-02-18 12:33] VITALS: BMI 42.3
[2025-02-18 12:59] LABS: Hematocrit 36.7 % (42.0-52.0); Hemoglobin 12.0 g/dL (14.1-18.0); Immature Granulocytes % 0.5 %; Mean Corpuscular HGB Conc 32.7 g/dL (31.8-35.4); Mean Corpuscular Hemoglobin 30.1 pg (27.0-31.2); Mean Corpuscular Volume 92.0 fl (80-94); Nucleated Red Blood Cells % 0 %; Platelet Count 291 K/mm3 (142-424); Red Blood Count 3.99 M/mm3 (4.60-6.20); Red Cell Distribution Width-SD 43.4 fL; White Blood Count 8.2 K/mm3 (4.8-10.8)
[2025-02-18 13:12] LABS: Alanine Aminotransferase 27 U/L (12-78); Albumin Level 4.0 g/dl (3.5-5.0); Alkaline Phosphatase 96 U/L (38-126); Aspartate Amino Transferase 25 U/L (17-59); Bilirubin,Direct 0.2 mg/dl (0.0-0.4); Bilirubin,Indirect 0.0 mg/dL (0.0-0.9); Bilirubin,Total 0.2 mg/dl (0.2-1.3); Bilirubin,Unconjugated 0.0 mg/dL (0.0-1.1); Blood Urea Nitrogen 12 mg/dl (9-20); Creatine Kinase 65 U/L (55-170); Creatinine Clearance Estimated 133 mL/min (50-200); Creatinine,Serum 0.90 mg/dl (0.66-1.25); Estimated Glomerular Filt Rate 96 ml/min (>60); GFR (African American) 116 ML/MIN (>60); Total Protein,Serum 6.7 g/dl (6.3-8.2)
[2025-02-18 14:36] LABS: C-Reactive Protein 13.5 mg/L (0-4)
== END 2025-02-18 12:45 | disposition home or self-care (01) ==
LOC: INF 12:25
PROVIDERS: Internal Medicine Infectious Disease; Visit Provider Student in an Organized Health Care Education/Training Program
DX: L03.116 Cellulitis of left lower limb (principal)
CPT/HCPCS: 36592; 80076; 82550; 82565; 84520; 85025; 86140; 96523

== ENCOUNTER 2025-03-06 13:56 | Outpatient (CLI) | payer MEDICAID, SELFPAY ==
--- OUTSIDE RECORDS SUMMARY | 2025-01-15 21:32 | XMS_ITS | Encounter Summary ---
Author Organization Healthcare Address [address] [place] [address] Care Team Providers Care Jazz Singer Name Role Phone Renetta Pardo APRN Primary Care Provider [phone] Reason for Visit * Reason Comments Post-op Problem * Auth/Cert (Routine) Specialty Diagnoses / Procedures Referred By Adalid t Referred To Contact Diagnoses Acute postoperative pain Cellulitis of leg, left Cellulitis of left lower extremity Sepsis following procedure, initial encounter ([facility]) recent LLE surgery @ now with cellulitis Sachin Garza MD [id number] [place] [address] Phone: tel: fax: [facility] [address] [place] [address] Phone: tel: Referral ID Status Reason Start Date Expiration Date Visits Re quested Visits Authorized [id number] 1 1 Encounter Details Date Type Department Care Team (Latest Contact Info) Description 01/15/2025 9:32 PM EDT - 01/22/2025 5:16 PM EDT Hospital Encounter [facility] [address] [place] [address] Philippe Mann MD [address] [place] [address] Jeffrey Matute MD [address] [place] [address] Danny Ly MD [address] [place] [address] Sachin Garza MD [address] [facility] [address] [place] [address] Cellulitis of leg, left (Primary Dx); Sepsis following procedure, initial encounter ([facility]); Cellulitis of left lower extremity; Acute [...] place to sleep or slept in a [place] facility (including now)? No 09/12/2023 Humiliation, Afraid, Rape, [...] any time in the past 12 m [facility], were you homeless or living in a [place] facility (including now)? No 01/17/2025 CAGE ASSESSMENT Answer [...] drink first t traci in the morning (EYE-CLOTH PICKER) to steady your nerves or to get rid of a hangover? 0 09/10/2023 CAGE Questionnaire Score 0 024 Utilities Answer Date Recorded In the past 12 months has th e Spime, gas, oil, or water company threatened to [...] the video go to this web address: [email or web address] Or, scan this QR code with your smart phone ?? [facility] * Rosaura [facility] - Leigh Rg RN - 01/22/2025 4:21 PM EDT Images from the original note were not included. 01421 Flushing Your PICC Line at Home Your [...] soap and water, use an alcohol-based hand pony cylinder press operator. The gel should have at least 60% [...] PICC. Last Reviewed Date: 2024 00:00:00 ?? 3285-7765 [employer]. All rights reserved. This information is not intended as a substitute for professional medical care. Always follow your healthcare professional's instructions. * Rosaura OnFH[facility] - Leigh Rg RN - 01/22/2025 4:21 PM EDT Images from the original note were not included. 30069 Discharge Instructions: Changing the Dressing on Your [...] damage Last Reviewed Date: 2024 00:00:00 ?? 4381-7897 [employer]. All rights reserved. This information is not [...] the video go to this web address: [email or web address] Or, scan this QR code with your smart phone ?? [employer] [facility] [facility] * Leigh Muller RN - 01/22/2025 4:20 PM EDT Images from the original note were not included. 33830 Understanding Post Sepsis Syndrome (PSS) Sepsis is [...] infections Last Reviewed Date: 2022 00:00:00 ?? 6575-7976 [employer]. All rights reserved. This information is not intended as a substitute for professional medical care. Always follow your healthcare professional's instructions. * Rosaura OnIR - Leigh Rg RN - 01/22/2025 4:20 PM EDT Images from the original note were not included. 006992ua Buckle (Torus) Fracture of a Leg Your [...] wet, you can dry it with a biology department chair on the cool setting. ? [...] doctor Last Reviewed Date: 2024 00:00:00 ?? 7449-5662 [employer]. All rights reserved. This information is not intended as a substitute for professional medical care. Always follow your healthcare professional's instructions. * [facility] Leigh Rg RN - 01/22/2025 4:20 PM EDT Images from the original note were not included. 16832 Discharge Instructions for Cellulitis You have been [...] are in pain. Ask what kind of brly-xnj-jzbiufo medicine you can take for pain. ? [...] Vomiting. Last Reviewed Date: 2024 00:00:00 ?? 9844-2285 [employer]. All rights reserved. This information is not intended as a substitute for professional medical care. Always follow your healthcare professional's instructions. * Discharge Summary - Mauricio Mondragon MD - 01/22/2025 4:16 PM EDT Hospitalization Admit Date/Time: 01/15/2025 9:32 PM Admitting Attending: Sachin Garza Discharge Date: 01/22/25 Discharge Attending Physician: Sachin Garza MD PCP name and Address: Renetta Pardo, [address] [place] / [facility] [address] Referring provider name and address: Maldonado Luciano PA [address] [place] [address] [place] [address] Chief Concern, Brief History of Present Illness, [...] medications were sent to [facility] -[place], [place] - [address], [facility] [address] DAPTOmycin injection These medications were sent to [facility] - [place], [place] - [address] [facility] [address] oxyCODONE 5 MG immediate release capsule Discharge Diagnosis Medical Problems Active and Resolved Hospital Problems Hospital Closed fracture of left tibial plateau Overview Addendum 09/16/2023 1:42 PM by Rolanda Adams APRN, KALYANI ORT consulted TROM in place WB per ORT 09/15: ORIF L tibial plateau fx Follow up with Dr. Nava on 10/04 * (Principal) Cellulitis of leg, left Sepsis following procedure ([facility]) Cellulitis of left lower extremity Post [...] Department Center 01/27/2025 11:00 AM [facility] MICROFABRICATION ENGINEER MANAGER [facility] 02/03/2025 8:10 AM Lawrence Hayes MD [facility] 02/11/2025 1:00 PM Ary Santiago APRN IDBCCLX [place] 03/03/2025 1:00 PM Ary Santiago APRN IDBCCLX [place] Test Results Pending At Discharge Pending Labs [...] General: Spoke with: Patient, Family, and Bedside repacker and Interventions: Assessed: Dressing Dressing Interventions: CDI [...] please contact the Orthopedic Transition Nurse at [phone] Monday through Monday 8:00 am to 2:30 pm. If you feel your concern is a medical emergency please call 911 immediately * Progress Notes - Anna Elam RN - 01/22/2025 9:28 AM EDT Case Management Discharge Note Ravin Ribeiro 34 y.o. male CSN: [id number] Admission: 01/15/2025 9:32 PM Primary Problem: Cellulitis of leg, left Primary Rn Surgery Icu: Primary Caregiver: Self Assistance Available at Discharge: Current Outpatient/Agency/Support Group: DME Availability of Care Givers (#Hours): 24 hours Family/Rn Surgery Icu(s) Willingness Assessed to care for patient at home: Yes Family/Rn Surgery Icu(s) Readiness Assessed to care for patient at [...] Community Agency(s): Patient's Choice of Community Agency(s): [facility] Patient/Family Anticipated Services at Transition: Patient/Family [...] in place. Pt will follow up at [facility] for weekly PICC care and labs. First appointment is scheduled for 01/27 at 11 AM. Pt's family will be able to provide assistance and transportation. [facility] will complete teaching today and deliver IV ABX to bedside around 3 PM. Pt and S/O is aware and agreeable to discharge POC. Renzo [facility] [phone] Anna Elam RN * Progress Notes - [...] required Ayden Canseco MD PGY-1, Orthopaedic Surgery [facility] Orthopaedic Trauma Service Pager: [phone] Orthopaedic Recon/Spine/Foot and Ankle Service Pager: [phone] Cosigned by Lawrence Hayes MD at 01/22/2025 [...] required Red Mondragon MD Orthopaedic Surgery PGY-1 [facility] Orthopaedic Trauma Service Pager: [phone] Orthopaedic Recon/Spine/Foot and Ankle Service Pager: [phone] Personal Pager: [phone] Cosigned by Lawrence Hayes MD at 01/22/2025 1:06 PM EDT * Procedures - Norma Miranda RN - 01/21/2025 7:01 PM EDTAssociated Order(s): Insert PICC line Insert PICC line Date/Time: 01/21/2025 7:01 PM Performed by: Norma Miranda RN Authorized by: Sachin Garza MD [place] Protocol: Verbal consent obtained?: Yes Written consent [...] preference Patient position: Supine Catheter Lot #: [id number] Catheter paper goods machine operator: Optichron PowerPICC Solo Catheter placed: Single lumen Catheter [...] 01/21/2025 3:28 PM EDT Referrals sent to [facility] and for for possible home IV antibiotic infusion. There was no accepting companies in patient's area. CM spoke with patient and he is agreeable to either go to his local hospital [facility] or come to [facility] in [place] for his weekly PICC care/labs if needed. * Nursing Note - Camden Vital, RN - 01/21/2025 1:45 PM EDT Orthopedic Transition Nurse Note General: Spoke with: Patient, Family, and Bedside repacker and Interventions: Assessed: Dressing Dressing Interventions: CDI [...] please contact the Orthopedic Transition Nurse at [phone] Monday through Monday 8:00 am to 2:30 pm. If you feel your concern is a medical emergency please call 911 immediately * Steff Odell RN - 01/21/2025 11:57 AM EDT Images from the original note were not included. [id number] PICC Line Care PICC stands for peripherally [...] arm Last Reviewed Date: 2024 00:00:00 ?? 1354-1915 The [employer]. All rights reserved. This information is not intended as a substitute for professional medical care. Always follow your healthcare professional's instructions. * Steff Odell RN - 01/21/2025 11:56 AM EDT Images from the original note were not included. 61610 * Steff Odell RN - 01/21/2025 11:56 AM EDT Images from the original note were not included. 03102 * Steff Odell RN - 01/21/2025 11:56 [...] your house or a medical facility. The window caser/rn social work will setthat up based on your insurance. [...] or during weekends/[place] holidays, call the paging thermal surfacing machine operator at . Ask for the infectious disease fellow personalized living assistant. Call the clinic if you have any [...] from the original note were not included. 37310 Flushing Your PICC Line at Home Your [...] soap and water, use an alcohol-based hand pony cylinder press operator. The gel should have at least 60% [...] Put the syringe into a special container (durchblicker.ats container). When to contact your doctor Contact [...] PICC. Last Reviewed Date: 2024 00:00:00 ?? 0352-9773 [employer]. All rights reserved. This information is not intended as a substitute for professional medical care. Always follow your healthcare professional's instructions. * [facility] - Steff Paz RN - 01/21/2025 11:56 AM EDT Images from the original note were not included. [id number] Daptomycin Injection Brand Name(s): Cubicin??, Cubicin RF??; [...] of all of the prescription and nonprescription (qjsq-asy-sdfeevi) medicines you are taking, as well as [...] or pharmacist about specific clinical use. The [place] [employer] represents that the information provided hereunder was formulated with a reasonable standard of care, and in conformity with professional standards in the field. The [place] [employer] makes no representations or warranties, express or implied, including, but not limited to, any implied warranty of merchantability and/or fitness for a particular purpose, with respect to such information and specifically disclaims all such warranties. Users are advised that decisions regarding drug therapy are complex medical decisions requiring the independent, informed decision of an appropriate health child care assistant, and the information is provided for informational purposes only. The entire monograph for a drug should be reviewed for a thorough understanding of the drug's actions, uses and side effects. The [place] [employer] does not endorse or recommend the use of any drug.The information is not a substitute for medical care. AHFS?? Patient Medication Information?. ?? Copyright, 2023. The [place] [employer]-System Pharmacists??, [address], [address], [place], [place]. All Rights Reserved. Duplication for commercial use must be authorized by [facility]. Selected Revisions: July 28, 2019. AHFS?? Patient Medication Information?. ?? Copyright, 2024 * Rosaura [facility] - Steff Paz RN - 01/21/2025 11:56 AM EDT Images from the original note were not included. 67182 Discharge Instructions: Caring for Your Peripherally Inserted [...] damage. Last Reviewed Date: 2024 00:00:00 ?? 6710-4519 The [employer]. All rights reserved. This information is not intended as a substitute for professional medical care. Always follow your healthcare professional's instructions. * Rosaura On[facility] - Steff Paz RN - 01/21/2025 11:56 AM EDT Images from the original note were not included. 08249 Central Line Infections You need a central [...] water. Or they use an alcohol-based hand pony cylinder press operator containing at least 60% alcohol. ? Using [...] (warm or cold), and use alcohol-based hand pony cylinder press operator with at least 60% alcohol as directed. To clean your hands well,follow the guidelines on this sheet. Visitors should wash their hands well when they arrive and when they leave. ? Make sure healthcare staff and your visitors clean their hands. They should use soap and clean, running water or an alcohol-based hand pony cylinder press operator before and after checking the line. Don?t [...] good choice for cleaning your hands. The pony cylinder press operator should have at least 60% alcohol. Note that some germs can't be killed by alcohol. Your healthcare team can answer any questions you have about when to use a hand pony cylinder press operator, or when it?s better to wash with soap and water. Follow these steps: ? Spread the hand pony cylinder press operator in the palm of one hand. (Check the package for specific guidelines.) ? Rub your hands together briskly. Clean the backs of your hands, the palms, between your fingers, and up your wrists. ? Rub until the pony cylinder press operator is gone and your hands are completely [...] skin Last Reviewed Date: 2023 00:00:00 ?? 3964-4634 The [employer]. All rights reserved. This information is not [...] Single Lumen PICC Patient Specific Outpatient Circumstances: [address] [place] [address] Family Support: Extended Emergency Contact Information Primary Emergency Contact: Hayley Buenrostro Address: [address] [place] [address] Mobile Relation: Significant Other Preferred language: Qatari Android Software Engineer needed? No Secondary Emergency Contact: Jenny Buenrostro Address: [place] [address] [place] Relation: Mother Contact information: Ravin Ribeiro [phone] (home) Outpatient services (including home infusion, home health, facility referral: See recent [place] case management/social work note for finalization of services ID follow up appointment: Future Appointments Date Time Provider Department Center 02/03/2025 8:10 AM Lawrence Hayes MD [facility] 02/11/2025 1:00 PM Ary Santiago APRN IDBCCLX [...] via secure chat or staff messaging in [employer]. Patient and family will need to be [...] days prior to presentation. He presented to [facility] wherehe was febrile to 101.3F. Upon [...] PA-C Division of Infectious Diseases Available on [employer] Chat History, assessment, and plan discussed with [...] labs to: ID OPAT Team Fax #: [phone] Appointments: Ary Santiago APRN on 02/11 at 1PM and 03/03 at 1PM [facility] [address] [place] [address] (Select Option 3 for IV Antibiotic / PICC line related issues) For questions regarding OPAT prior to discharge, reach out to the OPAT team via [employer] Secure Chat (Group: OPAT Referral Team). For all questions regarding OPAT after discharge should be directed to the OPAT Team at (Select Option 3 for IV Antibiotics/PICC Issues) between 8am-5pm. After 5 pm, or during weekends/[place] holidays, please call the paging thermal surfacing machine operator at to reach the on-call [...] at 01/18/25 1133 [2] Allergies Allergen Reactions [place] Hives * Consults - Delma Ortiz - 01/21/2025 10:00 AM EDT Pastoral Care Note: Patient was appreciative of manager payer's visit and expressed gratitude to the care team. he said family is on their way to him. Referral From: Special Programs Director Initiated Pastoral Care Provided For: Patient Patient Profile: Spiritual Assessment: Support Systems/ Spiritual Resources: Treasure, Sense of Peace, Trust, Gratitude Spiritual Needs: Emotional support, Spiritual ritual Spiritual Issues: Discharge Interventions: Pastoral Care Outcomes: Patient Outcomes: Appreciative of Special Programs Director Support, Expresses acceptance, Gratitude Cosigned by Macrina Dumont at 01/21/2025 6:24 PM EDT Associated attestation - Macrina Dumont - 01/21/2025 6:24 PM EDT This is to attest manager payer consumer insights intern chart note has been reviewed and [...] to ambulate in room/hallway with family and senior staff specialized employment while remains inpatient. Patient demonstrates no further [...] Prevent or Manage Infection Flowsheets (Taken 01/20/2025 6158) Infection Management: aseptic technique maintained Fever Reduction/Comfort [...] Agree with above assessment and evaluation from resident/ACCESS MANAGER. * Progress Notes - Anna Elam RN - 01/20/2025 10:48 AM EDT Case Management Adult Progress Note Ravin Ribeiro 34 y.o. male CSN: [id number] Admission: 01/15/2025 9:32 PM Primary Problem: Cellulitis of leg, left Anticipated Discharge Date: TBD Pt to OR today for repeat I&D on left knee. Pt has worsening NORMAN and team wants to repeat AM labs. Final ID recs and OPAT eval are pending. Referral sent to [facility] and HH today. Pt's medicaid may be a potential barrier to HH. CM will continue to assist with discharge POC. Anna Elam RN * Op Note - Bob Nava MD - 01/20/2025 10:26 AM EDT Operative Note Date: 01/20/25 Location: [place] OR Name: Ravin Ribeiro, : 1990, [...] Attending Surgeon(s): * Bob Nava - Primary Thermal Cutting Tracer Machine Operator(s): * Emely Giron MD - Resident - [...] days prior to presentation. He presented to [facility] wherehe was febrile to 101.3F. Upon [...] PA-C Division of Infectious Diseases Available on [employer] Chat History, assessment, and plan discussed with [...] Gustavo Hightower MD [2] Allergies Allergen Reactions [place] Hives * Consults - Ricco Howard RN [...] required Ayden Canseco MD PGY-1, Orthopaedic Surgery [facility] Orthopaedic Trauma Service Pager: [phone] Orthopaedic Recon/Spine/Foot and Ankle Service Pager: [phone] Cosigned by Sachin Garza MD at 01/20/2025 [...] PM * Progress Notes - Oma Zamora aMdhuri - 01/19/2025 9:03 AM EDT Occupational Therapy Evaluation Patient Name: Ravin Ribeiro Today's Date: 01/19/2025 OT Discharge Recommendations: Home with assistance Equipment Recommended: Patient owns appropriate equipment History Ravin Ribeiro is 34 y.o. male admitted 01/15/2025 for work-up of Cellulitis of leg, left. Hospital Course 1. Sepsis following procedure, initial encounter ([facility]) 2. Cellulitis of left lower extremity [...] admission Level of Mobility: Ambulatory- community Mobility [place]: Independent gait without device (intermittne use of [...] Mobility Bed Mobility Exam: Scooting/Bridging Level of [place]: Independent Bed Mobility Exam: Supine to Sit Level of [place]: Independent Transfers Transfer Exam: Sit to stand Level of [place]: Stand-by assist Physical/Nonphysical Assist: Verbal Cues Assistive Device: Walker, rolling Transfer Exam: Stand to Sit Level of [place]: Stand-by assist Physical/Nonphysical Assist: Verbal Cues Assistive Device: Walker, rolling Toilet Transfer Level of [place]: Stand-by assist Physical/Nonphysical Assist: Verbal Cues Type of Transfer: Ambulation, To toilet Assistive Device: Walker, rolling, Grab bar Functional Mobility Device: Rolling walker Assistance: Standby assist <Household distance, cuing for safety, pacing activity, RW management, and encouraged L LE WBAT-as permitted per chart (pt reports being used to NWB for pain management MANAGER ORGANIZATIONAL) Balance Postural Appearance Posture: Within Functional Limits [...] admission Level of Mobility: Ambulatory- community Mobility [place]: Independent gait without device (intermittne use of [...] Mobility Bed Mobility Exam: Scooting/Bridging Level of [place]: Independent Bed Mobility Exam: Supine to Sit Level of [place]: Independent Transfers Transfer Exam: Sit to stand Level of [place]: Stand-by assist Physical/Nonphysical Assist: Verbal Cues Assistive Device: Walker, rolling Transfer Exam: Stand to Sit Level of [place]: Stand-by assist Physical/Nonphysical Assist: Verbal Cues Assistive [...] 3-5 steps with a railing?: A little [facility] 6-Clicks Mobility Assessment Total : 23 No [...] required Red Mondragon MD Orthopaedic Surgery PGY-1 [facility] Orthopaedic Trauma Service Pager: [phone] Orthopaedic Recon/Spine/Foot and Ankle Service Pager: [phone] Personal Pager: [phone] Cosigned by Ye Navarro MD at 01/21/2025 [...] AM EDT Operative Note Date: 01/18/25 Location: [place] OR Name: Ravin Ribeiro, : 1990, Diagnoses: Pre-op Diagnosis Cellulitis of left lower extremity Post-op Diagnosis Cellulitis of left lower extremity Procedure(s): Irrigation and debridement of left medial tibial plateau deep abscess Attending Surgeon(s): * Ye Navarro - Primary Thermal Cutting Tracer Machine Operator(s): * Harvey Swift MD - Resident - [...] well as other factors in accordance with [place] policy. The left lower extremity was then 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 repacker and Interventions: Assessed: Wound 01/01/25 Surgical Open Surgical Incision Pretibial Left;Proximal (Active) Wound Assessment Red 01/15/250 Margins Well-defined edges;Attached edges 01/15/252149 Janeth-Wound Assessment Red 01/15/25 2150 Closure Hungry Horse 01/15/252149 Wound 01/01/25 Face Left;Upper (Active) Education: Education provided on: Pain protocol/management Plan of Care: Follow up with TBD. Op-Plan: Awaiting to see how patient responds to IV abx. Contact Card Given: no Comments: Team is waiting to see if patient improves on IV abx. Awaiting ID recs. For medical questions or concerns after discharge, please contact the Orthopedic Transition Nurse at [phone] Monday through Monday 8:00 am to 2:30 [...] ] Family [ ] Friend [ ] Android Software Engineer [X] Medical records HISTORY OF PRESENT ILLNESS: [...] medial pretibial incision so he presented to [facility] for evaluation. He was febrile to101.3F [...] on day of presentation. He lives in [place] with his , CONSTANZA, and 2 young [...] days prior to presentation. He presented to [facility] wherehe was febrile to 101.3F. Upon [...] PA-C Division of Infectious Diseases Available on [employer] Chat History, assessment, and plan discussed with ID attending, Dr. Azucena Collado The following complex inpatient infectious disease services were performed today: Complex antimicrobial therapy counseling and treatment [1] History reviewed. No pertinent past medical history. [2] Past Surgical History: Procedure Laterality Date LEG SURGERY Left [3] Allergies Allergen Reactions [place] Hives [4] Current Facility-Administered Medications Medication Dose [...] Note Ravin Ribeiro 34 y.o. male CSN: [id number] Admission: 01/15/2025 9:32 PM Primary Problem: Cellulitis of leg, left Manager Transfer reviewed chart and spoke with patient to complete this Initial Case Management Assessment. PCP: Renetta Pardo APRN Emergency Contact: Extended Emergency Contact Information Primary Emergency Contact: Hayley Buenrostro Address: [address] [place] [address] Mobile Relation: Significant Other Preferred language: Qatari Android Software Engineer needed? No Secondary Emergency Contact: Jenny Buenrostro Address: [address] [place] [address] Mobile Relation: Mother Insurance: Primary Visit Coverage Payer Plan Sponsor Code Group Number Group Name [employer]ICA[employer] MOLINA [employer] MEDICAID Primary Visit Coverage Subscriber Subscriber ID Subscriber Name Subscriber N Subscriber Address [id number] RAVIN RIBEIRO [id number] [place] [address] Patient information: Primary Caregiver: Self Support System: Immediate family Daily Living Activities: Functional Status: Independent Living Arrangements: Spouse/Significant other, Family Type of Residence: Private residence, Single Level [address] [place] [address] Current DME: Equipment Currently Used at Home: [...] Outpatient Dialysis Services: Living Will/Advance Directive/Power of Aircraft Power 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 /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: Have you reviewed your Advance Directive [...] Pt states he lives at home in [place] with his , CONSTANZA, and two small 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 repacker and Interventions: Assessed: Wound 01/01/25 Surgical Open Surgical Incision Pretibial Left;Proximal (Active) Wound Assessment Red 01/15/25 2150 Margins Well-defined edges;Attached edges 01/15/25 2150 Janeth-Wound Assessment Red 01/15/25 2150 Closure Hungry Horse 01/15/25 2150 Wound 01/01/25 Face Left;Upper (Active) [...] please contact the Orthopedic Transition Nurse at [phone] Monday through Monday 8:00 am to 2:30 [...] tibial pulse, cap refill <2 sec, digits [facility] Orthopedic Surgery Tertiary Exam Completed 01/16/25 [...] exams. Mitch Giron MD PGY-3, Orthopaedic Surgery [facility] Orthopaedic Trauma Service Pager: [phone] Orthopaedic Recon/Spine/Foot and Ankle Service Pager: [phone] Cosigned by Sachin Garza MD at 01/18/2025 [...] please contact the Orthopedic Transition Nurse at [phone] Monday through Monday 8:00 am to 2:30 [...] examinations WRadha Howard MD PGY-2, Orthopaedic Surgery [facility] Cosigned by Sachin Garza MD [...] fracture Tabitha Howard MD PGY-2, Orthopaedic Surgery [facility] Orthopaedic Trauma Service Pager: [phone] Orthopaedic Recon/Spine/Foot and Ankle Service Pager: [phone] [...] 25 tablet 0 [4] Allergies Allergen Reactions [place] Hives Cosigned by Sachin Garza MD at [...] Anterior, Posterior, Medial Once Acknowledged EMELY GIRON Banadr 01/16/25 0043 CBC W/O Differential STAT Final [...] 01/16/25 06 Sepsis following procedure, initial encounter ([facility]) Cellulitis of left lower extremity Acute [...] diagnosis was Sepsis following procedure, initial encounter ([facility]). Diagnoses of Cellulitis of left lower [...] Drug use: Never [5] Allergies Allergen Reactions [place] Hives Gus Vigil APRN 01/16/25656 Cosigned by [...] 01/16/25 0733 Sepsis following procedure, initial encounter ([facility]) Cellulitis of left lower extremity Acute postoperative pain Ultimately, this patient Was admitted (Admission) The primary encounter diagnosis was Sepsis following procedure, initial encounter ([facility]). Diagnoses of Cellulitis of left lower [...] Description 2025 7:50 AM EDT Office Visit [facility] Orthopaedic Surgery & Sports Medicine [address] [place] [address] Stella Brown, PROGRAM SERVICES ASSISTANT [address] [place] [address] 2025 10:30 AM EDT Office Visit [facility] [address] [place] [address] Santiago Collado MD [address] [place] [address] [address] [place] [address] 03/27/2025 9:30 AM EDT Office Visit [address] [address] Santiago Collado MD [address] [place] [address] [address] [place] [address] Scheduled Orders Name Type Priority [...] 44.4(H) <=8.0 mg/L 01/22/2025 9:25 AM EDT [facility] Blood Venous blood specimen / Unknown Venipuncture / Unknown 01/22/2025 5:04 AM EDT 01/22/2025 5:31 AM EDT Narrative [facility] - 01/22/2025 9:25 AM EDT This CRP test is appropriate for assessment of infection, systemic inflammation and/or tissue injury. To assess cardiovascular disease risk order high sensitivity CRP (CRPH). us Michelle ZULUAGA LAB BLOOD ORDERABLES Final Res ult [facility] [address] [place] [address] * Lavender Top (01/22/2025 5:04 AM EDT) Extra Hold for add-ons 01/22/2025 8:02 AM EDT [facility] Comment:Auto resulted. Blood Venous blood specimen / Unknown 01/22/2025 5:04 AM EDT 01/22/2025 5:30 AM EDT us Sachin Garza MD LAB BLOOD ORDERABLES Final R esult [facility] [address] [place] [address] * (ABNORMAL) Basic metabolic panel (01/22/2025 5:04 AM EDT) Glucose, Plasma 91 74 - 99 mg/dL 01/22/2025 6:01 AM EDT [facility] BUN, Plasma 33(H) 7 - 21 mg/dL 01/22/2025 6:01 AM EDT [facility] Creatinine, Plasma 1.47(H) 0.70 - 1.20 mg/dL 01/22/2025 6:01 AM EDT [facility] BUN/Creatinine Ratio 22 01/22/2025 6:01 AM EDT [facility] Sodium, Plasma 137 136 - 145 mmol/L 01/22/2025 6:01 AM EDT [facility] Potassium, Plasma 5.3(H) 3.6 - 4.9 mmol/L 01/22/2025 6:01 AM EDT [facility] Chloride, Plasma 100 97 - 107 mmol/L 01/22/2025 6:01 AM EDT [facility] CO2, Plasma 28 22 - 29 mmol/L 01/22/2025 6:01 AM EDT [facility] Anion Gap 9 6 - 16 mmol/L 01/22/2025 6:01 AM EDT [facility] Total Calcium, Plasma 9.6 8.9 - 10.2 mg/dL 01/22/2025 6:01 AM EDT [facility] eGFRcr 63.4 mL/min/1.7 3m*2 01/22/2025 6:01 AM EDT [facility] Comment:Reported eGFRcr in m L/min/1.73m2 is based the CKD-EPI 2020 equation that does not use a race coefficient. Blood Venous blood specimen / Unknown Venipuncture / Unknown 01/22/2025 5:04 AM EDT 01/22/2025 5:31 AM EDT us Sachin Garza MD LAB BLOOD ORDERABLES Final R esult [facility] [address] [place] [address] * (ABNORMAL) CBC (01/21/2025 7:29 PM EDT) WBC Count 10.10 3.70 - 10.30 10*3/uL LAB HEMATOLOGY METHOD 01/21/2025 7:42 PM EDT [facility] RBC Count 3.82(L) 4.60 - 6.10 10*6/uL LAB HEMATOLOGY METHOD 01/21/2025 7:42 PM EDT [facility] HGB 11.5(L) 13.7 - 17.5 g/dL LAB HEMATOLOGY METHOD 01/21/2025 7:42 PM EDT [facility] HCT 35.2(L) 40.0 - 51.0 % LAB HEMATOLOGY METHOD 01/21/2025 7:42 PM EDT [facility] Platelet Count 446(H) 155 - 369 10*3/uL LAB HEMATOLOGY METHOD 01/21/2025 7:42 PM EDT [facility] MCV 92 79 - 98 fL LAB HEMATOLOGY METHOD 01/21/2025 7:42 PM EDT [facility] MCH 30.1 26.0 - 32.0 pg LAB HEMATOLOGY METHOD 01/21/2025 7:42 PM EDT [facility] MCHC 32.7 30.7 - 35.5 g/dL LAB HEMATOLOGY METHOD 01/21/2025 7:42 PM EDT [facility] RDW 13.1 11.5 - 14.5 % LAB HEMATOLOGY METHOD 01/21/2025 7:42 PM EDT [facility] MPV 9.1 8.8 - 12.5 fL LAB HEMATOLOGY METHOD 01/21/2025 7:42 PM EDT [facility] nRBC 0.0 <=0.0 per 100 WBCs LAB HEMATOLOGY METHOD 01/21/2025 7:42 PM EDT [facility] Blood Venous blood specimen / Unknown Venipuncture / Unknown 01/21/2025 7:29 PM EDT 01/21/2025 7:35 PM EDT us Sachin Garza MD LAB BLOOD ORDERABLES Final R esult [facility] [address] [place] [address] * (ABNORMAL) Basic metabolic panel (01/21/2025 7:29 PM EDT) Glucose, Plasma 122(H) 74 - 99 mg/dL 01/21/2025 8:03 PM EDT [facility] BUN, Plasma 31(H) 7 - 21 mg/dL 01/21/2025 8:03 PM EDT [facility] Creatinine, Plasma 1.64(H) 0.70 - 1.20 mg/dL 01/21/2025 8:03 PM EDT [facility] BUN/Creatinine Ratio 19 01/21/2025 8:03 PM EDT [facility] Sodium, Plasma 139 136 - 145 mmol/L 01/21/2025 8:03 PM EDT [facility] Potassium, Plasma 4.6 3.6 - 4.9 mmol/L 01/21/2025 8:03 PM EDT [facility] Chloride, Plasma 101 97 - 107 mmol/L 01/21/2025 8:03 PM EDT [facility] CO2, Plasma 26 22 - 29 mmol/L 01/21/2025 8:03 PM EDT [facility] Anion Gap 12 6 - 16 mmol/L 01/21/2025 8:03 PM EDT [facility] Total Calcium, Plasma 9.1 8.9 - 10.2 mg/dL 01/21/2025 8:03 PM EDT [facility] eGFRcr 55.6 mL/min/1.7 3m*2 01/21/2025 8:03 PM EDT [facility] Comment:Reported eGFRcr in m L/min/1.73m2 is based the CKD-EPI 2020 equation that does not use a race coefficient. Blood Venous blood specimen / Unknown Venipuncture / Unknown 01/21/2025 7:29 PM EDT 01/21/2025 7:35 PM EDT Sachin Garza MD LAB BLOOD ORDERABLES Final R esult [facility] [address] [place] [address] * PICC SINGLE LUMEN (SMARTFORM LINK) (01/21/2025 7:01 PM EDT) Narrative Norma Miranda RN - 01/21/2025 7:01 PM EDT Norma Miranda RN 01/21/2025 7:19 PM Insert PICC line Date/Time: 01/21/2025 7:01 PM Performed by: Norma Miranda RN Authorized by: Sachin Garza MD [place] Protocol: Verbal consent obtained?: Yes Written consent [...] preference Patient position: Supine Catheter Lot #: [id number] Catheter paper goods machine operator: Bard PowerPICC Solo Catheter placed: Single lumen [...] at day 4 2024 7:15 AM EDT [facility] Gram Stain Result No polymorphonuclear leukocytes seen 01/25/2025 7:15 AM EDT [facility] Gram Stain Result No organisms seen 01/25/2025 7:15 AM EDT [facility] Swab Structure of left knee region / Unknown 01/20/2025 10:42 AM EDT 01/20/2025 11:25 AM EDT Comment:Pre-op diagnosis: Closed fracture of left tibial plateau with routine healing, subsequent encounter [S82.142D] Bob Nava MD LAB MICROBIOLOGY - GENERAL O RDERABLES Final Result [facility] [address] [place] [address] * Fungal Culture, Routine (01/20/2025 10:42 AM EDT) Culture No Fungal Growth at 1 Week 01/28/2025 7:34 AM EDT [facility] Swab Structure of left knee region / Unknown 01/20/2025 10:42 AM EDT 01/20/2025 11:25 AM EDT Comment:Pre-op diagnosis: Closed fracture of left tibial plateau with routine healing, subsequent encounter [S82.142D] us Bob Nava MD LAB MICROBIOLOGY - GENERAL O RDERABLES Final Result Performing Organization Address [facility] Co de Phone Number [facility] [address] [place] [address] * Anaerobic Culture (01/20/2025 10:42 AM EDT) Culture No growth at day 4 01/28/2025 7:09 AM EDT [facility] Swab Structure of left knee region / Unknown 01/20/2025 10:42 AM EDT 01/20/2025 11:25 AM EDT Comment:Pre-op diagnosis: Closed fracture of left tibial plateau with routine healing, subsequent encounter [S82.142D] us Bob Nava MD LAB MICROBIOLOGY - GENERAL O RDERABLES Final Result Performing Organization Address [facility] [place] [address] * Fungal Culture, Tissue and SYEDA (01/20/2025 10:30 AM EDT) Culture Reading Mycological 4 Weeks No Fungal Growth at 4 Weeks 02/18/2025 6:03 AM EDT [facility] SYEDA No fungal elements seen 02/18/2025 6:03 AM EDT [facility] Tissue Structure of left knee region / Unknown 01/20/2025 10:30 AM EDT 01/20/2025 11:23 AM EDT Comment:Pre-op diagnosis: Closed fracture of left tibial plateau with routine healing, subsequent encounter [S82.142D] us Bob Nava MD LAB MICROBIOLOGY - GENERAL O RDERABLES Final Result Performing Organization Address [facility] Co de Phone Number [facility] [address] [place] [address] * AFB Culture, Non Respiratory Source and Acid Fast Stain (01/20/2025 10:30 AM EDT) AFB Culture No Mycobacterial Growth at 6 Weeks 03/04/2025 4:02 PM EDT [facility] Acid Fast Stain No acid fast bacilli seen 03/04/2025 4:02 PM EDT [facility] Tissue Structure of left knee region / Unknown 01/20/2025 10:30 AM EDT 01/20/2025 11:23 AM EDT Comment:Pre-op diagnosis: Closed fracture of left tibial plateau with routine healing, subsequent encounter [S82.142D] Bob Nava MD LAB MICROBIOLOGY - GENERAL O RDERABLES Final Result Performing Organization Address City/[facility] Co de Phone Number [facility] [address] [place] [address] * Tissue Culture and Gram Stain (01/20/2025 10:30 AM EDT) Culture No growth at day 4 2024 7:15 AM EDT [facility] Gram Stain Result No polymorphonuclear leukocytes seen 01/25/2025 7:15 AM EDT [facility] Gram Stain Result No organisms seen 01/25/2025 7:15 AM EDT [facility] Tissue Structure of left knee region / Unknown 01/20/2025 10:30 AM EDT 01/20/2025 11:23 AM EDT Comment:Pre-op diagnosis: Closed fracture of left tibial plateau with routine healing, subsequent encounter [S82.142D] Bob Nava MD LAB MICROBIOLOGY - GENERAL O RDERABLES Final Result Performing Organization Address City/[facility]/ZIP Co de Phone Number [facility] [address] [place] [address] * Anaerobic Culture (01/20/2025 10:30 AM EDT) Culture No growth at day 4 01/28/2025 7:09 AM EDT [facility] Tissue Structure of left knee region / Unknown 01/20/2025 10:30 AM EDT 01/20/2025 11:23 AM EDT Comment:Pre-op diagnosis: Closed fracture of left tibial plateau with routine healing, subsequent encounter [S82.142D] us Bob Nava MD LAB MICROBIOLOGY - GENERAL O RDERABLES Final Result Performing Organization Address City/[facility]/ZIP Co de Phone Number [facility] [address] [place] [address] * Fungal Culture, Tissue and SYEDA (01/20/2025 10:27 AM EDT) Culture Reading Mycological 4 Weeks No Fungal Growth at 4 Weeks 02/18/2025 6:03 AM EDT [facility] SYEDA No fungal elements seen 02/18/2025 6:03 AM EDT [facility] Tissue Structure of left knee region / Unknown 01/20/2025 10:27 AM EDT 01/20/2025 11:24 AM EDT Comment:Pre-op diagnosis: Closed fracture of left tibial plateau with routine healing, subsequent encounter [S82.142D] us Bob Nava MD LAB MICROBIOLOGY - GENERAL O RDERABLES Final Result Performing Organization Address [facility] Co de Phone Number [facility] [address] [place] [address] * AFB Culture, Non Respiratory Source and Acid Fast Stain (01/20/2025 10:27 AM EDT) AFB Culture No Mycobacterial Growth at 6 Weeks 03/04/2025 4:15 PM EDT [facility] Acid Fast Stain No acid fast bacilli seen 03/04/2025 4:15 PM EDT [facility] Tissue Structure of left knee region / Unknown 01/20/2025 10:27 AM EDT 01/20/2025 11:24 AM EDT Comment:Pre-op diagnosis: Closed fracture of left tibial plateau with routine healing, subsequent encounter [S82.142D] us Bob Nava MD LAB MICROBIOLOGY - GENERAL O RDERABLES Final Result Performing Organization Address City/[facility]/ZIP Co de Phone Number [facility] [address] [place] [address] * Tissue Culture and Gram Stain (01/20/2025 10:27 AM EDT) Culture No growth at day 4 2024 7:15 AM EDT [facility] Gram Stain Result No organisms seen 01/25/2025 7:15 AM EDT [facility] Gram Stain Result No polymorphonuclear leukocytes seen 01/25/2025 7:15 AM EDT [facility] Tissue Structure of left knee region / Unknown 01/20/2025 10:27 AM EDT 01/20/2025 11:24 AM EDT Comment:Pre-op diagnosis: Closed fracture of left tibial plateau with routine healing, subsequent encounter [S82.142D] us Bob Nava MD LAB MICROBIOLOGY - GENERAL O RDERABLES Final Result Performing Organization Address City/[facility] Co de Phone Number [facility] [address] [place] [address] * Anaerobic Culture (01/20/2025 10:27 AM EDT) Culture No growth at day 4 01/28/2025 7:09 AM EDT [facility] Tissue Structure of left knee region / Unknown 01/20/2025 10:27 AM EDT 01/20/2025 11:24 AM EDT Comment:Pre-op diagnosis: Closed fracture of left tibial plateau with routine healing, subsequent encounter [S82.142D] us Bob Nava MD LAB MICROBIOLOGY - GENERAL O RDERABLES Final Result Performing Organization Address City/[facility]/ZIP Co de Phone Number [facility] [address] [place] [address] * (ABNORMAL) Creatine Kinase (CK), Total (01/20/2025 3:40 AM EDT) Creatine Kinase, Plasma 18(L) 49 - 320 U/L 01/21/2025 12:17 PM EDT [facility] Blood Venous blood specimen / Unknown Venipuncture / Unknown 01/20/2025 3:40 AM EDT 01/20/2025 3:57 AM EDT us Sachin Garza MD LAB BLOOD ORDERABLES Final R esult [facility] [address] [place] [address] * Vancomycin, random (01/20/2025 3:40 AM EDT) Vancomycin, Random, Plasma 20.1 ug/mL 01/20/2025 4:51 AM EDT [facility] Blood Venous blood specimen / Unknown Venipuncture / Unknown 01/20/2025 3:40 AM EDT 01/20/2025 3:57 AM EDT Sachin Garza MD LAB BLOOD ORDERABLES Final R esult Performing Organization Address [facility]/[place] [address] * Protime-INR (01/20/2025 3:40 AM EDT) Prothrombin Time 13.5 12.0 - 14.3 sec LAB COAGULATION METHOD 01/20/2025 4:17 AM EDT [facility] INR 1.0 0.9 - 1.1 LAB COAGULATION METHOD 01/20/2025 4:17 AM EDT [facility] Blood Venous blood specimen / Unknown Venipuncture / Unknown 01/20/2025 3:40 AM EDT 01/20/2025 3:56 AM EDT Narrative [facility] - 01/20/2025 4:17 AM EDT OPTIMAL INR RANGES FOR PATIENT ON ORAL ANTICOAGULANT THERAPY Prevention of venous thromboembolism INR 2.0 to 3.0 In patients with heart disease: Atrial fibrillation INR 2.0 to 3.0 Valvular heart disease INR 2.0 to 3.0 Tissue heart valves INR 2.0 to 3.0 Mechanical prosthetic valves INR 2.5 to 3.5 Prevention of recurrent NC INR 2.5 to 3.5 Sachin Garza MD LAB BLOOD ORDERABLES Final R esult Performing Organization Address City/[facility]/ZIP Co de Phone Number [facility] [address] [place] [address] * (ABNORMAL) Basic metabolic panel (01/20/2025 3:40 AM EDT) Glucose, Plasma 87 74 - 99 mg/dL 01/20/2025 4:51 AM EDT [facility] BUN, Plasma 30(H) 7 - 21 mg/dL 01/20/2025 4:51 AM EDT [facility] Creatinine, Plasma 1.59(H) 0.70 - 1.20 mg/dL 01/20/2025 4:51 AM EDT [facility] BUN/Creatinine Ratio 19 01/20/2025 4:51 AM EDT [facility] Sodium, Plasma 142 136 - 145 mmol/L 01/20/2025 4:51 AM EDT [facility] Potassium, Plasma 4.7 3.6 - 4.9 mmol/L 01/20/2025 4:51 AM EDT [facility] Chloride, Plasma 104 97 - 107 mmol/L 01/20/2025 4:51 AM EDT [facility] CO2, Plasma 26 22 - 29 mmol/L 01/20/2025 4:51 AM EDT [facility] Anion Gap 12 6 - 16 mmol/L 01/20/2025 4:51 AM EDT [facility] Total Calcium, Plasma 8.9 8.9 - 10.2 mg/dL 01/20/2025 4:51 AM EDT [facility] eGFRcr 57.7 mL/min/1.7 3m*2 01/20/2025 4:51 AM EDT [facility] Comment:Reported eGFRcr in m L/min/1.73m2 is based the CKD-EPI 2020 equation that does not use a race coefficient. Blood Venous blood specimen / Unknown Venipuncture / Unknown 01/20/2025 3:40 AM EDT 01/20/2025 3:57 AM EDT us Sachin Garza MD LAB BLOOD ORDERABLES Final R esult [facility] [address] [place] [address] * (ABNORMAL) CBC W/O Differential (01/20/2025 3:40 AM EDT) WBC Count 8.11 3.70 - 10.30 10*3/uL LAB HEMATOLOGY METHOD 01/20/2025 4:04 AM EDT [facility] RBC Count 3.64(L) 4.60 - 6.10 10*6/uL LAB HEMATOLOGY METHOD 01/20/2025 4:04 AM EDT [facility] HGB 10.7(L) 13.7 - 17.5 g/dL LAB HEMATOLOGY METHOD 01/20/2025 4:04 AM EDT [facility] HCT 34.5(L) 40.0 - 51.0 % LAB HEMATOLOGY METHOD 01/20/2025 4:04 AM EDT [facility] Platelet Count 399(H) 155 - 369 10*3/uL LAB HEMATOLOGY METHOD 01/20/2025 4:04 AM EDT [facility] MCV 95 79 - 98 fL LAB HEMATOLOGY METHOD 01/20/2025 4:04 AM EDT [facility] MCH 29.4 26.0 - 32.0 pg LAB HEMATOLOGY METHOD 01/20/2025 4:04 AM EDT [facility] MCHC 31.0 30.7 - 35.5 g/dL LAB HEMATOLOGY METHOD 01/20/2025 4:04 AM EDT [facility] RDW 13.1 11.5 - 14.5 % LAB HEMATOLOGY METHOD 01/20/2025 4:04 AM EDT [facility] MPV 9.5 8.8 - 12.5 fL LAB HEMATOLOGY METHOD 01/20/2025 4:04 AM EDT [facility] nRBC 0.0 <=0.0 per 100 WBCs LAB HEMATOLOGY METHOD 01/20/2025 4:04 AM EDT [facility] Blood Venous blood specimen / Unknown Venipuncture / Unknown 01/20/2025 3:40 AM EDT 01/20/2025 3:56 AM EDT us Sachin Garza MD LAB BLOOD ORDERABLES Final R esult [facility] [address] [place] [address] * Vancomycin, random (01/19/2025 11:48 AM EDT) Vancomycin, Random, Plasma 22.9 ug/mL 01/19/2025 1:05 PM EDT [facility] Blood Venous blood specimen / Unknown Venipuncture / Unknown 01/19/2025 11:48 AM EDT 01/19/2025 11:50 AM EDT Sachin Garza MD LAB BLOOD ORDERABLES Final R esult [facility] [address] [place] [address] * (ABNORMAL) Basic Metabolic Panel, Plasma (01/18/2025 11:54 PM EDT) Glucose, Plasma 134(H) 74 - 99 mg/dL 01/19/2025 12:45 AM EDT [facility] BUN, Plasma 24(H) 7 - 21 mg/dL 01/19/2025 12:45 AM EDT [facility] Creatinine, Plasma 1.34(H) 0.70 - 1.20 mg/dL 01/19/2025 12:45 AM EDT [facility] BUN/Creatinine Ratio 18 01/19/2025 12:45 AM EDT [facility] Sodium, Plasma 137 136 - 145 mmol/L 01/19/2025 12:45 AM EDT [facility] Potassium, Plasma 4.7 3.6 - 4.9 mmol/L 01/19/2025 12:45 AM EDT [facility] Chloride, Plasma 100 97 - 107 mmol/L 01/19/2025 12:45 AM EDT [facility] CO2, Plasma 24 22 - 29 mmol/L 01/19/2025 12:45 AM EDT [facility] Anion Gap 13 6 - 16 mmol/L 01/19/2025 12:45 AM EDT [facility] Total Calcium, Plasma 9.3 8.9 - 10.2 mg/dL 01/19/2025 12:45 AM EDT [facility] eGFRcr 70.8 mL/min/1.7 3m*2 01/19/2025 12:45 AM EDT [facility] Comment:Reported eGFRcr in m L/min/1.73m2 is based the CKD-EPI 2020 equation that does not use a race coefficient. Blood Venous blood specimen / Unknown Venipuncture / Unknown 01/18/2025 11:54 PM EDT 01/19/2025 12:16 AM EDT us Sachin Garza MD LAB BLOOD ORDERABLES Final R esult [facility] [address] [place] [address] * (ABNORMAL) CBC W/O Differential (01/18/2025 11:54 PM EDT) WBC Count 11.85(H) 3.70 - 10.30 10*3/uL LAB HEMATOLOGY METHOD 01/19/2025 12:20 AM EDT [facility] RBC Count 3.76(L) 4.60 - 6.10 10*6/uL LAB HEMATOLOGY METHOD 01/19/2025 12:20 AM EDT [facility] HGB 11.3(L) 13.7 - 17.5 g/dL LAB HEMATOLOGY METHOD 01/19/2025 12:20 AM EDT [facility] [facility] HCT 34.2(L) 40.0 - 51.0 % LAB HEMATOLOGY METHOD 01/19/2025 12:20 AM EDT [facility] Platelet Count 394(H) 155 - 369 10*3/uL LAB HEMATOLOGY METHOD 01/19/2025 12:20 AM EDT [facility] MCV 91 79 - 98 fL LAB HEMATOLOGY METHOD 01/19/2025 12:20 AM EDT [facility] MCH 30.1 26.0 - 32.0 pg LAB HEMATOLOGY METHOD 01/19/2025 12:20 AM EDT [facility] MCHC 33.0 30.7 - 35.5 g/dL LAB HEMATOLOGY METHOD 01/19/2025 12:20 AM EDT [facility] RDW 12.9 11.5 - 14.5 % LAB HEMATOLOGY METHOD 01/19/2025 12:20 AM EDT [facility] MPV 9.5 8.8 - 12.5 fL LAB HEMATOLOGY METHOD 01/19/2025 12:20 AM EDT [facility] nRBC 0.0 <=0.0 per 100 WBCs LAB HEMATOLOGY METHOD 01/19/2025 12:20 AM EDT [facility] Blood Venous blood specimen / Unknown Venipuncture / Unknown 01/18/2025 11:54 PM EDT 01/19/2025 12:13 AM EDT us Sachin Garza MD LAB BLOOD ORDERABLES Final R esult Performing Organization Address City/[facility]/ZIP Co de Phone Number [facility] [address] [place] [address] * AFB Culture, Non Respiratory Source and Acid Fast Stain (01/18/2025 3:28 PM EDT) AFB Culture No Mycobacterial Growth at 6 Weeks 03/02/2025 8:42 AM EDT [facility] Acid Fast Stain No acid fast bacilli seen 03/02/2025 8:42 AM EDT [facility] Joint Fluid Topography unknown / Unknown Non-blood Collection / Unknown 01/18/2025 3:28 PM EDT 01/18/2025 3:28 PM EDT us Sachin Garza MD LAB MICROBIOLOGY - GENERAL O RDERABLES Final Result Performing Organization Address City/[facility]/ZIP Co de Phone Number [facility] [address] [place] [address] * Fungal Culture, Sterile Body Fluid (NOT CSF) and SYEDA (01/18/2025 3:28 PM EDT) Culture No Fungal Growth at 3 Weeks 02/10/2025 8:37 AM EDT [facility] SYEDA No fungal elements seen 02/10/2025 8:37 AM EDT [facility] Joint Fluid Topography unknown / Unknown Non-blood Collection / Unknown 01/18/2025 3:28 PM EDT 01/18/2025 3:28 PM EDT us Sachin Garza MD LAB MICROBIOLOGY - GENERAL O RDERABLES Final Result Performing Organization Address City/[facility]/ZIP Co de Phone Number [facility] [address] [place] [address] * Anaerobic Culture (01/18/2025 3:28 PM EDT) Culture No anaerobes isolated 01/23/2025 7:50 AM EDT [facility] Joint Fluid Topography unknown / Unknown Non-blood Collection / Unknown 01/18/2025 3:28 PM EDT 01/18/2025 3:28 PM EDT Sachin Garza MD LAB MICROBIOLOGY - GENERAL O RDERABLES Final Result Performing Organization Address [facility] de Phone Number [facility] [address] [place] [address] * (ABNORMAL) Body Fluid Culture and Gram Stain (01/18/2025 3:28 PM EDT) Culture Heavy Growth 01/20/2025 8:34 AM EDT [facility] Culture Methicillin-Resista nt Staphylococcus aureus(AA) 01/20/2025 8:34 AM EDT [facility] Comment: For susceptibility results refer to: - [id number] The organism value for this result has been updated. These results have been appended to the previously preliminary verified report. Edited result: Previously reported as Staphylococcus aureus on 01/19/2025 at 0933 EDT. Staphylococcus aureus has been updated to reportable. Gram Stain Result Numerous Polymorphonuclear leukocytes 01/20/2025 8:34 AM EDT [facility] Gram Stain Result No organisms seen 01/20/2025 8:34 AM EDT [facility] Joint Fluid Topography unknown / Unknown Non-blood Collection / Unknown 01/18/2025 3:28 PM EDT 01/18/2025 3:28 PM EDT Sachin Garza MD LAB MICROBIOLOGY - GENERAL O RDERABLES Final Result Performing Organization Address City/[facility]/ZIP Co de Phone Number [facility] [address] [place] [address] * Body fluid, cytospin, pathologist interpretation (01/18/2025 3:01 PM EDT) Specimen Type Joint Fluid LAB HEMATOLOGY METHOD 01/20/2025 4:29 PM EDT [facility] Specimen Source, Body Fluid Knee, Left LAB HEMATOLOGY METHOD 01/20/2025 4:29 PM EDT [facility] Clinical Diagnosis, Body Fluid Left lower extremity cellulitis LAB HEMATOLOGY METHOD 01/20/2025 4:29 PM EDT [facility] Interpretation , Body Fluid Bloody specimen Acute and chronic inflammatory cells Correlation with microbiology studies recommended A resident was involved in the service. I attest I examined the relevant preparations for the specimens and confirmed the diagnosis or interpretation. 01/20/2025 4:29 PM EDT [facility] Pathologist Signature, Body Fluid 01/20/2025 4:29 PM EDT [facility] Comment:Reviewed by: Stephanie conti MD LAB CP ASR DISCLAIMER Yes 01/20/2025 4:29 PM EDT [facility] Joint Fluid Structure of left knee region / Unknown 01/18/2025 3:01 PM EDT 01/18/2025 3:28 PM EDT us Sachin Garza MD LAB BODY FLUIDS AND STOOLS O RDERABLES Final Result Performing Organization Address [facility]/ZIP Co de Phone Number [facility] [address] [place] [address] * Joint Fluid Crystals (01/18/2025 3:01 PM EDT) Crystals, Joint Fluid No Crystals Seen No Crystals Present 01/18/2025 5:28 PM EDT [facility] Joint Fluid Structure of left knee region / Unknown 01/18/2025 3:01 PM EDT 01/18/2025 3:28 PM EDT us Sachin Garza MD LAB BODY FLUIDS AND STOOLS O RDERABLES Final Result [facility] [address] [place] [address] * (ABNORMAL) Body Fluid Cell Count w/ Diff (01/18/2025 3:01 PM EDT) Color, Body fluid Red LAB HEMATOLOGY METHOD 01/18/2025 11:05 PM EDT [facility] Appearance, Body fluid Cloudy(A) LAB HEMATOLOGY METHOD 01/18/2025 11:05 PM EDT [facility] Volume, Body fluid 3.5 cc LAB HEMATOLOGY METHOD 01/18/2025 11:05 PM EDT [facility] Fluid Container Specimen received in EDTA tube LAB HEMATOLOGY METHOD 01/18/2025 11:05 PM EDT [facility] Red Blood Cell Count, Body fluid 299,000 uL LAB HEMATOLOGY METHOD 01/18/2025 11:05 PM EDT [facility] Total Nucleated Cell Count, Body fluid 873 uL LAB HEMATOLOGY METHOD 01/18/2025 11:05 PM EDT [facility] Neutrophils %, Body fluid 17 % LAB HEMATOLOGY METHOD 01/18/2025 11:05 PM EDT [facility] Lymphocytes %, Body fluid 55 % LAB HEMATOLOGY METHOD 01/18/2025 11:05 PM EDT [facility] Monocytes/Macro phages %, Body fluid 27 % LAB HEMATOLOGY METHOD 01/18/2025 11:05 PM EDT [facility] Eosinophils %, Body fluid 1 % LAB HEMATOLOGY METHOD 01/18/2025 11:05 PM EDT [facility] Lining/Mesothel ial Cells %, Body fluid 0 % LAB HEMATOLOGY METHOD 01/18/2025 11:05 PM EDT [facility] Neutrophils Absolute (PMN), Body fluid 148 uL LAB HEMATOLOGY METHOD 01/18/2025 11:05 PM EDT [facility] Lymphocytes Absolute, Body fluid 480 uL LAB HEMATOLOGY METHOD 01/18/2025 11:05 PM EDT [facility] Monocytes/Macro phages Absolute, Body fluid 236 uL LAB HEMATOLOGY METHOD 01/18/2025 11:05 PM EDT [facility] Eosinophils Absolute, Body fluid 9 uL LAB HEMATOLOGY METHOD 01/18/2025 11:05 PM EDT [facility] Basophils Absolute, Body fluid 0 uL LAB HEMATOLOGY METHOD 01/18/2025 11:05 PM EDT [facility] Lining/Mesothel ial Cells Absolute, Body fluid 0 uL LAB HEMATOLOGY METHOD 01/18/2025 11:05 PM EDT [facility] Comment, Body fluid None LAB HEMATOLOGY METHOD 01/18/2025 11:05 PM EDT [facility] Comment:This is an appended report. These results have been appended to a previously preliminary verified report. Basophils %, Body fluid 0 % LAB HEMATOLOGY METHOD 01/18/2025 11:05 PM EDT [facility] Joint Fluid Structure of left knee region / Unknown 01/18/2025 3:01 PM EDT 01/18/2025 3:28 PM EDT us Sachin Garza MD LAB BODY FLUIDS AND STOOLS ORDERABLES NO SPECIMEN TYPE/SOURCE Final Result Performing Organization Address [facility]/ZIP Co de Phone Number [facility] [address] [place] [address] * Body Fluid Culture and Gram Stain (01/18/2025 12:17 PM EDT) Culture No growth at day 4 2024 11:06 AM EDT [facility] Gram Stain Result No polymorphonuclear leukocytes seen 01/21/2025 11:06 AM EDT [facility] Gram Stain Result No organisms seen 01/21/2025 11:06 AM EDT [facility] Joint Fluid Synovial fluid specimen / Unknown Non-blood Collection / Unknown 01/18/2025 12:17 PM EDT 01/18/2025 3:24 PM EDT Comment:Pre-op diagnosis: Cellulitis of left lower extremity [L03.116] us Dwaine Das DO LAB MICROBIOLOGY - GENERAL ORDERABLES Final Result Performing Organization Address City/[facility]/ZIP Co de Phone Number [facility] [address] [place] [address] * Joint Infection Panel by PCR (01/18/2025 12:17 PM EDT) Anaerococcus prevotii/vaginalis PCR Result Not Detected Not Detected 01/18/2025 5:28 PM EDT [facility] Clostridium perfringens PCR Result Not Detected Not Detected 01/18/2025 5:28 PM EDT [facility] Cutibacterium avidum/granulosum PCR Result Not Detected Not Detected 01/18/2025 5:28 PM EDT [facility] Enterococcus faecalis PCR Result Not Detected Not Detected 01/18/2025 5:28 PM EDT [facility] Enterococcus faecium PCR Result Not Detected Not Detected 01/18/2025 5:28 PM EDT [facility] Finegoldia magna PCR Result Not Detected Not Detected 01/18/2025 5:28 PM EDT [facility] Parvimonas micra PCR Result Not Detected Not Detected 01/18/2025 5:28 PM EDT [facility] Peptoniphilus PCR Result Not Detected Not Detected 01/18/2025 5:28 PM EDT [facility] Peptostreptococcus anaerobius PCR Result Not Detected Not Detected 01/18/2025 5:28 PM EDT [facility] Staphylococcus aureus PCR Result Not Detected Not Detected 01/18/2025 5:28 PM EDT [facility] Staphylococcus lugdunensis PCR Result Not Detected Not Detected 01/18/2025 5:28 PM EDT [facility] Streptococcus spp PCR Result Not Detected Not Detected 01/18/2025 5:28 PM EDT [facility] Streptococcus agalactiae PCR Result Not Detected Not Detected 01/18/2025 5:28 PM EDT [facility] Streptococcus pneumoniae PCR Result Not Detected Not Detected 01/18/2025 5:28 PM EDT [facility] Streptococcus pyogenes PCR Result Not Detected Not Detected 01/18/2025 5:28 PM EDT [facility] Bacteroides fragilis PCR Result Not Detected Not Detected 01/18/2025 5:28 PM EDT [facility] Citrobacter PCR Result Not Detected Not Detected 01/18/2025 5:28 PM EDT [facility] Enterobacter cloacae complex PCR Result Not Detected Not Detected 01/18/2025 5:28 PM EDT [facility] Escherichia coli PCR Result Not Detected Not Detected 01/18/2025 5:28 PM EDT [facility] Haemophilus influenzae PCR Result Not Detected Not Detected 01/18/2025 5:28 PM EDT [facility] Kingella kingae PCR Result Not Detected Not Detected 01/18/2025 5:28 PM EDT [facility] Klebsiella aerogenes PCR Result Not Detected Not Detected 01/18/2025 5:28 PM EDT [facility] Klebsiella pneumoniae group PCR Result Not Detected Not Detected 01/18/2025 5:28 PM EDT [facility] Morganella morganii PCR Result Not Detected Not Detected 01/18/2025 5:28 PM EDT [facility] Neisseria gonorrhoeae PCR Result Not Detected Not Detected 01/18/2025 5:28 PM EDT [facility] Proteus spp PCR Result Not Detected Not Detected 01/18/2025 5:28 PM EDT [facility] Pseudomonas aeruginosa PCR Result Not Detected Not Detected 01/18/2025 5:28 PM EDT [facility] Salmonella spp PCR Result Not Detected Not Detected 01/18/2025 5:28 PM EDT [facility] Serratia marcescens PCR Result Not Detected Not Detected 01/18/2025 5:28 PM EDT [facility] Nelda PCR Result Not Detected Not Detected 01/18/2025 5:28 PM EDT [facility] Nelda albicans PCR Result Not Detected Not Detected 01/18/2025 5:28 PM EDT [facility] CTXM PCR Result Not Detected Not Detected 01/18/2025 5:28 PM EDT [facility] IMP PCR Result Not Detected Not Detected 01/18/2025 5:28 PM EDT [facility] KPC PCR Result Not Detected Not Detected 01/18/2025 5:28 PM EDT [facility] mecA/C and MREJ (MRSA) PCR Result Not Detected Not Detected 01/18/2025 5:28 PM EDT [facility] NDM PCR Result Not Detected Not Detected 01/18/2025 5:28 PM EDT [facility] OXA-48-like PCR Result Not Detected Not Detected 01/18/2025 5:28 PM EDT [facility] Jarret/B PCR Result Not Detected Not Detected 01/18/2025 5:28 PM EDT [facility] VIM PCR Result Not Detected Not Detected 01/18/2025 5:28 PM EDT [facility] Joint Fluid Synovial fluid specimen / Unknown Non-blood Collection / Unknown 01/18/2025 12:17 PM EDT 01/18/2025 3:24 PM EDT Narrative [facility] - 01/18/2025 5:28 PM EDT [...] Pseudomonas aeruginosa, Salmonella spp., Serratia marcescens, Nelda, Nedla albicans and CTX-M, IMP, KPC, mecA/C and [...] MICROBIOLOGY - GENERAL O RDERABLES Final Result [facility] [address] [place] [address] * Fungal Culture, Tissue and SYEDA (01/18/2025 10:00 AM EDT) Culture Reading Mycological 4 Weeks No Fungal Growth at 4 Weeks 02/16/2025 8:50 AM EDT [facility] SYEDA No fungal elements seen 02/16/2025 8:50 AM EDT [facility] Tissue Topography unknown / Unknown 01/18/2025 10:00 AM EDT 01/18/2025 3:26 PM EDT Comment:Pre-op diagnosis: Cellulitis of left lower extremity [L03.116] [facility] - GENERAL ORDERABLES Final Result Performing Organization Address [facility] Co de Phone Number [facility] [address] [place] [address] * AFB Culture, Non Respiratory Source and Acid Fast Stain (01/18/2025 10:00 AM EDT) AFB Culture No Mycobacterial Growth at 6 Weeks 03/02/2025 8:38 AM EDT [facility] Acid Fast Stain No acid fast bacilli seen 03/02/2025 8:38 AM EDT [facility] Tissue Topography unknown / Unknown 01/18/2025 10:00 AM EDT 01/18/2025 3:26 PM EDT Comment:Pre-op diagnosis: Cellulitis of left lower extremity [L03.116] [facility]CRO[facility] - GENERAL ORDERABLES Final Result Performing Organization Address [facility] de Phone Number [facility] [address] [place] [address] * (ABNORMAL) Tissue Culture and Gram Stain (01/18/2025 10:00 AM EDT) Culture Heavy Growth 01/20/2025 8:34 AM EDT [facility] Culture Methicillin-Resista nt Staphylococcus aureus(AA) JOVANI 01/20/2025 8:34 AM EDT [facility] Comment: The organism value for this result has been updated. These results have been appended to the previously preliminary verified report. Edited result: Previously reported as Staphylococcus aureus on 01/19/2025 at 0914 EDT. Staphylococcus aureus has been updated to reportable. Gram Stain Result Numerous Polymorphonuclear leukocytes(A) 01/20/2025 8:34 AM EDT [facility] Gram Stain Result Rare Gram positive cocci in clusters(A) 01/20/2025 8:34 AM EDT [facility] Tissue Topography unknown / Unknown [...] aureus Vancomycin JOVANI 1 ug/ml: Susceptible Dwaine [employer] LAB MICROBIOLOGY - GENERAL ORDERABLES Final Result Performing Organization Address City/[facility] Co de Phone Number [facility] [address] [place] [address] * Anaerobic Culture (01/18/2025 10:00 AM EDT) Culture No anaerobes isolated 01/23/2025 7:50 AM EDT [facility] Tissue Topography unknown / Unknown 01/18/2025 10:00 AM EDT 01/18/2025 3:26 PM EDT Comment:Pre-op diagnosis: Cellulitis of left lower extremity [L03.116] [employer] [address] LAB MICROBIOLOGY - GENERAL ORDERABLES Final Result Performing Organization Address City/[facility] Co de Phone Number [facility] [address] [place] [address] * Body fluid, cytospin, pathologist interpretation (01/18/2025 9:57 AM EDT) Specimen Type Cyst Fluid LAB HEMATOLOGY METHOD 01/20/2025 4:28 PM EDT [facility] Specimen Source, Body Fluid Other (specify site) LAB HEMATOLOGY METHOD 01/20/2025 4:28 PM EDT [facility] Clinical Diagnosis, Body Fluid Left lower extremity cyst fluid LAB HEMATOLOGY METHOD 01/20/2025 4:28 PM EDT [facility] Interpretation , Body Fluid No evidence of malignancy Bloody specimen Acute inflammatory cells Correlation with microbiology studies recommended A resident was involved in the service. I attest I examined the relevant preparations for the specimens and confirmed the diagnosis or interpretation. 01/20/2025 4:28 PM EDT [facility] Pathologist Signature, Body Fluid 01/20/2025 4:28 PM EDT [facility] Comment:Reviewed by: Stephanie conti MD LAB CP ASR DISCLAIMER Yes 01/20/2025 4:28 PM EDT [facility] Cyst Fluid Topography unknown / Unknown 01/18/2025 9:57 AM EDT 01/18/2025 3:19 PM EDT Dwaine Das DO LAB BODY FLUIDS AND STOOLS ORDERABLES Final Result [facility] [address] [place] [address] * (ABNORMAL) Body Fluid Cell Count w/ Diff (01/18/2025 9:57 AM EDT) Color, Body fluid Red LAB HEMATOLOGY METHOD 01/18/2025 7:13 PM EDT [facility] Appearance, Body fluid Cloudy(A) LAB HEMATOLOGY METHOD 01/18/2025 7:13 PM EDT [facility] Volume, Body fluid 10.0 cc LAB HEMATOLOGY METHOD 01/18/2025 7:13 PM EDT [facility] Fluid Container Specimen received in miscellaneous container LAB HEMATOLOGY METHOD 01/18/2025 7:13 PM EDT [facility] Red Blood Cell Count, Body fluid 240,000 uL LAB HEMATOLOGY METHOD 01/18/2025 7:13 PM EDT [facility] Comment:Clot present, may af fect results. Test performed by manual method. Total Nucleated Cell Count, Body fluid 83,500 uL LAB HEMATOLOGY METHOD 01/18/2025 7:13 PM EDT [facility] Comment:Clot present, may af fect results. Test performed by manual method. Neutrophils %, Body fluid 98 % LAB HEMATOLOGY METHOD 01/18/2025 7:13 PM EDT [facility] Lymphocytes %, Body fluid 2 % LAB HEMATOLOGY METHOD 01/18/2025 7:13 PM EDT [facility] Monocytes/Macr ophages %, Body fluid 0 % LAB HEMATOLOGY METHOD 01/18/2025 7:13 PM EDT [facility] Eosinophils %, Body fluid 0 % LAB HEMATOLOGY METHOD 01/18/2025 7:13 PM EDT [facility] Lining/Mesothe lial Cells %, Body fluid 0 % LAB HEMATOLOGY METHOD 01/18/2025 7:13 PM EDT [facility] Neutrophils Absolute (PMN), Body fluid 81,830 uL LAB HEMATOLOGY METHOD 01/18/2025 7:13 PM EDT [facility] Lymphocytes Absolute, Body fluid 1,670 uL LAB HEMATOLOGY METHOD 01/18/2025 7:13 PM EDT [facility] Monocytes/Macr ophages Absolute, Body fluid 0 uL LAB HEMATOLOGY METHOD 01/18/2025 7:13 PM EDT [facility] Eosinophils Absolute, Body fluid 0 uL LAB HEMATOLOGY METHOD 01/18/2025 7:13 PM EDT [facility] Basophils Absolute, Body fluid 0 uL LAB HEMATOLOGY METHOD 01/18/2025 7:13 PM EDT [facility] Lining/Mesothe lial Cells Absolute, Body fluid 0 uL LAB HEMATOLOGY METHOD 01/18/2025 7:13 PM EDT [facility] Comment, Body fluid Bacteria seen. LAB HEMATOLOGY METHOD 01/18/2025 7:13 PM EDT [facility] Basophils %, Body fluid 0 % LAB HEMATOLOGY METHOD 01/18/2025 7:13 PM EDT [facility] Cyst Fluid Topography unknown / Unknown 01/18/2025 9:57 AM EDT 01/18/2025 3:19 PM EDT Comment:Pre-op diagnosis: Cellulitis of left lower extremity [L03.116] Result [facility] Dwaine Simoneadeleshivani LAB BODY FLUIDS AND STOOLS ORDERABLES NO SPECIMEN TYPE/SOURCE Final Result [facility] [address] [place] [address] * Fungal Culture, Sterile Body Fluid (NOT CSF) and SYEDA (01/18/2025 9:57 AM EDT) Culture No Fungal Growth at 3 Weeks 02/10/2025 8:37 AM EDT [facility] SYEDA No fungal elements seen 02/10/2025 8:37 AM EDT [facility] Cyst Fluid Topography unknown / Unknown 01/18/2025 9:57 AM EDT 01/18/2025 3:26 PM EDT Comment:Pre-op diagnosis: Cellulitis of left lower extremity [L03.116] Dwaine Simoneadeleshivani LAB MICROBIOLOGY - GENERAL ORDERABLES Final Result Performing Organization Address [facility]/ZIP Co de Phone Number [facility] [address] [place] [address] * AFB Culture, Non Respiratory Source and Acid Fast Stain (01/18/2025 9:57 AM EDT) AFB Culture No Mycobacterial Growth at 6 Weeks 03/02/2025 8:43 AM EDT [facility] Acid Fast Stain No acid fast bacilli seen 03/02/2025 8:43 AM EDT [facility] Cyst Fluid Topography unknown / Unknown 01/18/2025 9:57 AM EDT 01/18/2025 3:26 PM EDT Comment:Pre-op diagnosis: Cellulitis of left lower extremity [L03.116] Result [facility] Dwaine Nicholsadeleshivani LAB MICROBIOLOGY - GENERAL ORDERABLES Final Result Performing Organization Address City/[facility]/ZIP Co de Phone Number [facility] [address] [place] [address] * (ABNORMAL) Body Fluid Culture and Gram Stain (01/18/2025 9:57 AM EDT) Culture Heavy Growth 01/20/2025 8:34 AM EDT [facility] Culture Methicillin-Resista nt Staphylococcus aureus(AA) 01/20/2025 8:34 AM EDT [facility] Comment: For susceptibility results refer to: - [id number] The organism value for this result has been updated. These results have been appended to the previously preliminary verified report. Edited result: Previously reported as Staphylococcus aureus on 01/19/2025 at 0916 EDT. Staphylococcus aureus has been updated to reportable. Gram Stain Result Numerous Polymorphonuclear leukocytes(A) 01/20/2025 8:34 AM EDT [facility] Gram Stain Result Moderate Gram positive cocci in clusters(A) 01/20/2025 8:34 AM EDT [facility] Cyst Fluid Topography unknown / Unknown 01/18/2025 9:57 AM EDT 01/18/2025 3:26 PM EDT Comment:Pre-op diagnosis: Cellulitis of left lower extremity [L03.116] [employer] LAB MICROBIOLOGY - GENERAL ORDERABLES Final Result Performing Organization Address City/[facility]/ZIP Co de Phone Number [facility] [address] [place] [address] * Anaerobic Culture (01/18/2025 9:57 AM EDT) [facility] Culture No anaerobes isolated 01/23/2025 7:50 AM EDT [facility] Cyst Fluid Topography unknown / Unknown 01/18/2025 9:57 AM EDT 01/18/2025 3:26 PM EDT Comment:Pre-op diagnosis: Cellulitis of left lower extremity [L03.116] [facility] LAB MICROBIOLOGY - GENERAL ORDERABLES Final Result [facility] [address] [place] [address] * Methicillin Resistant Staphylococcus aureus (MRSA) by PCR (01/18/2025 7:43 AM EDT) Methicillin Resistant Staphylococcus aureus (MRSA) by PCR Not Detected Not Detected 01/18/2025 9:36 AM EDT [facility] Swab Both anterior nares / Unknown Non-blood Collection / Unknown 01/18/2025 7:43 AM EDT 01/18/2025 8:19 AM EDT Narrative [facility] - 01/18/2025 9:36 AM EDT [...] MICROBIOLOGY - GENERAL O RDERABLES Final Result [facility] [address] [place] [address] * (ABNORMAL) Basic metabolic panel (01/18/2025 12:18 AM EDT) Glucose, Plasma 105(H) 74 - 99 mg/dL 01/18/2025 1:30 AM EDT [facility] BUN, Plasma 14 7 - 21 mg/dL 01/18/2025 1:30 AM EDT [facility] Creatinine, Plasma 0.80 0.70 - 1.20 mg/dL 01/18/2025 1:30 AM EDT [facility] BUN/Creatinine Ratio 18 01/18/2025 1:30 AM EDT [facility] Sodium, Plasma 137 136 - 145 mmol/L 01/18/2025 1:30 AM EDT [facility] Potassium, Plasma 4.3 3.6 - 4.9 mmol/L 01/18/2025 1:30 AM EDT [facility] Chloride, Plasma 100 97 - 107 mmol/L 01/18/2025 1:30 AM EDT [facility] CO2, Plasma 26 22 - 29 mmol/L 01/18/2025 1:30 AM EDT [facility] Anion Gap 11 6 - 16 mmol/L 01/18/2025 1:30 AM EDT [facility] Total Calcium, Plasma 9.0 8.9 - 10.2 mg/dL 01/18/2025 1:30 AM EDT [facility] eGFRcr 118.4 mL/min/1.7 3m*2 01/18/2025 1:30 AM EDT [facility] Comment:Reported eGFRcr in m L/min/1.73m2 is based the CKD-EPI 2020 equation that does not use a race coefficient. Blood Venous blood specimen / Unknown Venipuncture / Unknown 01/18/2025 12:18 AM EDT 01/18/2025 12:27 AM EDT us Sachin Garza MD LAB BLOOD ORDERABLES Final R esult [facility] [address] [place] [address] * (ABNORMAL) CBC W/O Differential (01/18/2025 12:18 AM EDT) WBC Count 8.77 3.70 - 10.30 10*3/uL LAB HEMATOLOGY METHOD 01/18/2025 12:36 AM EDT [facility] RBC Count 3.94(L) 4.60 - 6.10 10*6/uL LAB HEMATOLOGY METHOD 01/18/2025 12:36 AM EDT [facility] HGB 11.7(L) 13.7 - 17.5 g/dL LAB HEMATOLOGY METHOD 01/18/2025 12:36 AM EDT [facility] HCT 37.1(L) 40.0 - 51.0 % LAB HEMATOLOGY METHOD 01/18/2025 12:36 AM EDT [facility] Platelet Count 347 155 - 369 10*3/uL LAB HEMATOLOGY METHOD 01/18/2025 12:36 AM EDT [facility] MCV 94 79 - 98 fL LAB HEMATOLOGY METHOD 01/18/2025 12:36 AM EDT [facility] MCH 29.7 26.0 - 32.0 pg LAB HEMATOLOGY METHOD 01/18/2025 12:36 AM EDT [facility] MCHC 31.5 30.7 - 35.5 g/dL LAB HEMATOLOGY METHOD 01/18/2025 12:36 AM EDT [facility] RDW 13.1 11.5 - 14.5 % LAB HEMATOLOGY METHOD 01/18/2025 12:36 AM EDT [facility] MPV 9.5 8.8 - 12.5 fL LAB HEMATOLOGY METHOD 01/18/2025 12:36 AM EDT [facility] nRBC 0.0 <=0.0 per 100 WBCs LAB HEMATOLOGY METHOD 01/18/2025 12:36 AM EDT [facility] Blood Venous blood specimen / Unknown Venipuncture / Unknown 01/18/2025 12:18 AM EDT 01/18/2025 12:29 AM EDT us Sachin Garza MD LAB BLOOD ORDERABLES Final R esult Performing Organization Address [facility] Co de Phone Number [facility] [address] [place] [address] * Vancomycin, Peak, Plasma Please draw ~2 hours after 1000 dose of vancomycin on Monday finishes infusing. Consider obtaining level via peripheral stick. If peripheral stick is not feasible, please ensure that line is flushed well prior to drawing l... (01/17/2025 2:03 PM EDT) [facility] Vancomycin, Peak, Plasma 22.0 20.0 - 40.0 ug/mL 01/17/2025 3:01 PM EDT [facility] Blood Venous blood specimen / Unknown Venipuncture / Unknown 01/17/2025 2:03 PM EDT 01/17/2025 2:32 PM EDT Narrative [facility] - 01/17/2025 3:01 PM EDT Therapeutic Peak level: 20-40ug/mL Supra-therapeutic Peak level: >40 ug/mL us Sachin Garza MD LAB BLOOD ORDERABLES Final R esult Performing Organization Address City/[facility]/ZIP Co de Phone Number [facility] [address] [place] [address] * Vancomycin, Trough, Plasma Please draw ~30 minutes prior to dose due at 1000 on Monday. Please do NOT hold dose awaiting level to return. Consider obtaining level via peripheral stick. If peripheral stick is not feasible, please ensure that line ... (01/17/2025 9:53 AM EDT) Vancomycin, Trough, Plasma 12.5 10.0 - 20.0 ug/mL 01/17/2025 10:24 AM EDT [facility] Blood Venous blood specimen / Unknown Venipuncture / Unknown 01/17/2025 9:53 AM EDT 01/17/2025 9:57 AM EDT Narrative [facility] - 01/17/2025 10:24 AM EDT Therapeutic Trough level: 10-20ug/mL Supra-therapeutic Trough level: >20 ug/mL us Sachin Garza MD LAB BLOOD ORDERABLES Final R esult [facility] [address] [place] [address] * (ABNORMAL) Basic metabolic panel (01/17/2025 4:05 AM EDT) Pathologist [facility] Glucose, Plasma 117(H) 74 - 99 mg/dL 01/17/2025 5:16 AM EDT [facility] BUN, Plasma 13 7 - 21 mg/dL 01/17/2025 5:16 AM EDT [facility] Creatinine, Plasma 0.75 0.70 - 1.20 mg/dL 01/17/2025 5:16 AM EDT [facility] BUN/Creatinine Ratio 17 01/17/2025 5:16 AM EDT [facility] Sodium, Plasma 135(L) 136 - 145 mmol/L 01/17/2025 5:16 AM EDT [facility] Potassium, Plasma 4.5 3.6 - 4.9 mmol/L 01/17/2025 5:16 AM EDT [facility] Chloride, Plasma 100 97 - 107 mmol/L 01/17/2025 5:16 AM EDT [facility] CO2, Plasma 25 22 - 29 mmol/L 01/17/2025 5:16 AM EDT [facility] Anion Gap 10 6 - 16 mmol/L 01/17/2025 5:16 AM EDT [facility] Total Calcium, Plasma 9.1 8.9 - 10.2 mg/dL 01/17/2025 5:16 AM EDT [facility] eGFRcr 120.7 mL/min/1.7 3m*2 01/17/2025 5:16 AM EDT [facility] Comment:Reported eGFRcr in m L/min/1.73m2 is based the CKD-EPI 2020 equation that does not use a race coefficient. Blood Venous blood specimen / Unknown Venipuncture / Unknown 01/17/2025 4:05 AM EDT 01/17/2025 4:35 AM EDT us Sachin Garza MD LAB BLOOD ORDERABLES Final R esult [facility] [address] [place] [address] * [place] Extremity Limited MSK or Soft [...] - 99 mg/dL 01/16/2025 5:15 AM EDT [facility] BUN, Plasma 12 7 - 21 mg/dL 01/16/2025 5:15 AM EDT [facility] Creatinine, Plasma 0.66(L) 0.70 - 1.20 mg/dL 01/16/2025 5:15 AM EDT [facility] BUN/Creatinine Ratio 18 01/16/2025 5:15 AM EDT [facility] Sodium, Plasma 136 136 - 145 mmol/L 01/16/2025 5:15 AM EDT [facility] Potassium, Plasma 4.5 3.6 - 4.9 mmol/L 01/16/2025 5:15 AM EDT [facility] Chloride, Plasma 100 97 - 107 mmol/L 01/16/2025 5:15 AM EDT [facility] CO2, Plasma 26 22 - 29 mmol/L 01/16/2025 5:15 AM EDT [facility] Anion Gap 10 6 - 16 mmol/L 01/16/2025 5:15 AM EDT [facility] Total Calcium, Plasma 8.8(L) 8.9 - 10.2 mg/dL 01/16/2025 5:15 AM EDT [facility] eGFRcr 125.4 mL/min/1.7 3m*2 01/16/2025 5:15 AM EDT [facility] Comment:Reported eGFRcr in m L/min/1.73m2 is based the CKD-EPI 2020 equation that does not use a race coefficient. Blood Venous blood specimen / Unknown Venipuncture / Unknown 01/16/2025 4:31 AM EDT 01/16/2025 4:46 AM EDT us Jeffrey Matute MD LAB BLOOD ORDERABLES Final Re sult [facility] [address] [place] [address] * Prothrombin Time/INR (01/16/2025 4:31 AM EDT) Prothrombin Time 12.9 12.0 - 14.3 sec 01/16/2025 4:46 AM EDT [facility] INR 1.0 0.9 - 1.1 01/16/2025 4:46 AM EDT [facility] Blood Venous blood specimen / Unknown Venipuncture / Unknown 01/16/2025 4:31 AM EDT 01/16/2025 4:33 AM EDT Narrative [facility] - 01/16/2025 4:46 AM EDT OPTIMAL INR RANGES FOR PATIENT ON ORAL ANTICOAGULANT THERAPY Prevention of venous thromboembolism INR 2.0 to 3.0 In patients with heart disease: Atrial fibrillation INR 2.0 to 3.0 Valvular heart disease INR 2.0 to 3.0 Tissue heart valves INR 2.0 to 3.0 Mechanical prosthetic valves INR 2.5 to 3.5 Prevention of recurrent NC INR 2.5 to 3.5 us Jeffrey Matute MD LAB BLOOD ORDERABLES Final Re sult [facility] [address] [place] [address] * (ABNORMAL) CBC W/O Differential (01/16/2025 4:31 AM EDT) WBC Count 17.78(H) 3.70 - 10.30 10*3/uL LAB HEMATOLOGY METHOD 01/16/2025 4:36 AM EDT [facility] RBC Count 4.14(L) 4.60 - 6.10 10*6/uL LAB HEMATOLOGY METHOD 01/16/2025 4:36 AM EDT [facility] HGB 12.4(L) 13.7 - 17.5 g/dL LAB HEMATOLOGY METHOD 01/16/2025 4:36 AM EDT [facility] HCT 37.6(L) 40.0 - 51.0 % LAB HEMATOLOGY METHOD 01/16/2025 4:36 AM EDT [facility] Platelet Count 359 155 - 369 10*3/uL LAB HEMATOLOGY METHOD 01/16/2025 4:36 AM EDT [facility] MCV 91 79 - 98 fL LAB HEMATOLOGY METHOD 01/16/2025 4:36 AM EDT [facility] MCH 30.0 26.0 - 32.0 pg LAB HEMATOLOGY METHOD 01/16/2025 4:36 AM EDT [facility] MCHC 33.0 30.7 - 35.5 g/dL LAB HEMATOLOGY METHOD 01/16/2025 4:36 AM EDT [facility] RDW 13.2 11.5 - 14.5 % LAB HEMATOLOGY METHOD 01/16/2025 4:36 AM EDT [facility] MPV 9.3 8.8 - 12.5 fL LAB HEMATOLOGY METHOD 01/16/2025 4:36 AM EDT [facility] nRBC 0.0 <=0.0 per 100 WBCs LAB HEMATOLOGY METHOD 01/16/2025 4:36 AM EDT [facility] Blood Venous blood specimen / Unknown Venipuncture / Unknown 01/16/2025 4:31 AM EDT 01/16/2025 4:33 AM EDT us Jeffrey Matute MD LAB BLOOD ORDERABLES Final Re sult [facility] [address] [place] [address] * CT Tibia Fibula Left w IV [...] at day 5 01/21/2025 2:02 AM EDT [facility] Blood Venous blood specimen / Unknown Venipuncture / Unknown 01/16/2025 12:24 AM EDT 01/16/2025 1:12 AM EDT Narrative [facility] - 01/21/2025 2:02 AM EDT Low blood volume submitted, results may be compromised Gus Vigil APRN LAB MICROBIOLOGY - GENER AL ORDERABLES Final Result [facility] [address] [place] [address] * XR Chest 1 View (01/15/2025 11:21 [...] MD on 01/15/2025 11:40 PM Gus Vigil PROGRAM SERVICES ASSISTANT IMG XR PROCEDURES Final Result * Type [...] ORDERA BLES Final Result Performing Organization Address City/[facility]/ZIP Co de Phone Number BLOOD BANK [address] [place] [address], [place] * ECG Adult (01/15/2025 10:46 PM EDT) EKG DIAGNOSIS CLASS Normal MUSE ECG Ventricular Rate 92 BPM MUSE ECG Atrial Rate 92 BPM MUSE ECG OH Interval 122 ms MUSE ECG QRSD Interval 102 ms MUSE ECG QT Interval 350 ms MUSE ECG QTC Interval 432 ms MUSE ECG P Howard 56 degrees MUSE ECG R Howard 44 degrees MUSE ECG T Wave Howard 57 degrees MUSE ECG Diagnosis Normal sinus [...] at day 5 01/20/2025 11:01 PM EDT [facility] Blood Structure of antecubital vein / Unknown Venipuncture / Unknown 01/15/2025 10:11 PM EDT 01/15/2025 10:19 PM EDT Narrative [facility] - 01/20/2025 11:01 PM EDT Low blood volume submitted, results may be compromised [facility] [place] Yaritza PROGRAM SERVICES ASSISTANT LAB MICROBIOLOGY - GENER AL ORDERABLES Final Result Performing Organization Address City/[facility]/ZIP Co de Phone Number [facility] [address] [place] [address] * (ABNORMAL) Sed rate, automated (01/15/2025 10:11 PM EDT) Sedimentation Rate 46(H) <15 mm/hr 2024 10:34 PM EDT [facility] Blood Venous blood specimen / Unknown Venipuncture / Unknown 01/15/2025 10:11 PM EDT 01/15/2025 10:12 PM EDT [facility] [place] [facility] BLOOD ORDERABLES Fin al Result Performing Organization Address [facility] Co de Phone Number [facility] [address] [place] [address] * (ABNORMAL) C-Reactive protein (01/15/2025 10:11 PM EDT) Pathologist [facility] CRP, Plasma 91.9(H) <=8.0 mg/L 01/15/2025 10:32 PM EDT [facility] Blood Venous blood specimen / Unknown Venipuncture / Unknown 01/15/2025 10:11 PM EDT 01/15/2025 10:12 PM EDT Narrative [facility] - 01/15/2025 10:32 PM EDT This CRP test is appropriate for assessment of infection, systemic inflammation and/or tissue injury. To assess cardiovascular disease risk order high sensitivity CRP (CRPH). [facility] [place] [facility] BLOOD ORDERABLES Fin al Result Performing Organization Address City/[facility]/ZIP Co de Phone Number [facility] [address] [place] [address] * (ABNORMAL) Blood gas panel, venous (01/15/2025 10:11 PM EDT) [facility] pH, Venous 7.39 7.32 - 7.43 LAB HEMATOLOGY METHOD 01/15/2025 10:14 PM EDT [facility] pCO2, Venous 47 40 - 55 mmHg LAB HEMATOLOGY METHOD 01/15/2025 10:14 PM EDT [facility] pO2, Venous 34 25 - 40 mmHg LAB HEMATOLOGY METHOD 01/15/2025 10:14 PM EDT [facility] SO2, Measured, Venous 68 65 - 80 % LAB HEMATOLOGY METHOD 01/15/2025 10:14 PM EDT [facility] Base Excess, Venous 2.8 -2.0 - 3.0 mmol/L LAB HEMATOLOGY METHOD 01/15/2025 10:14 PM EDT [facility] Bicarbonate, Calculated, Venous 29(H) 22 - 26 mmol/L LAB HEMATOLOGY METHOD 01/15/2025 10:14 PM EDT [facility] Hematocrit, Whole Blood 40.4 40.0 - 51.0 % LAB HEMATOLOGY METHOD 01/15/2025 10:14 PM EDT [facility] Sodium, Whole Blood 135(L) 136 - 145 mmol/L LAB HEMATOLOGY METHOD 01/15/2025 10:14 PM EDT [facility] Potassium, Whole Blood 4.3 3.6 - 4.9 mmol/L LAB HEMATOLOGY METHOD 01/15/2025 10:14 PM EDT [facility] Chloride, Whole Blood 99 97 - 107 mmol/L LAB HEMATOLOGY METHOD 01/15/2025 10:14 PM EDT [facility] Glucose, Whole Blood 110(H) 74 - 99 mg/dL LAB HEMATOLOGY METHOD 01/15/2025 10:14 PM EDT [facility] Lactate, Venous, Whole Blood 1.1 0.5 - 2.2 mmol/L LAB HEMATOLOGY METHOD 01/15/2025 10:14 PM EDT [facility] Ionized Calcium, Whole Blood 4.6 4.6 - 5.1 mg/dL LAB HEMATOLOGY METHOD 01/15/2025 10:14 PM EDT [facility] Blood Venous blood specimen / Unknown Venipuncture / Unknown 01/15/2025 10:11 PM EDT 01/15/2025 10:12 PM EDT us Gus Soares Yaritza PROGRAM SERVICES ASSISTANT LAB BLOOD ORDERABLES Fin al Result [facility] [address] [place] [address] * (ABNORMAL) CMP (01/15/2025 10:11 PM EDT) Glucose, Plasma 116(H) 74 - 99 mg/dL 01/15/2025 10:32 PM EDT [facility] BUN, Plasma 14 7 - 21 mg/dL 01/15/2025 10:32 PM EDT [facility] Creatinine, Plasma 0.78 0.70 - 1.20 mg/dL 01/15/2025 10:32 PM EDT [facility] BUN/Creatinine Ratio 18 01/15/2025 10:32 PM EDT [facility] Sodium, Plasma 134(L) 136 - 145 mmol/L 01/15/2025 10:32 PM EDT [facility] Potassium, Plasma 4.6 3.6 - 4.9 mmol/L 01/15/2025 10:32 PM EDT [facility] Chloride, Plasma 97 97 - 107 mmol/L 01/15/2025 10:32 PM EDT [facility] CO2, Plasma 24 22 - 29 mmol/L 01/15/2025 10:32 PM EDT [facility] Anion Gap 13 6 - 16 mmol/L 01/15/2025 10:32 PM EDT [facility] Total Calcium, Plasma 8.7(L) 8.9 - 10.2 mg/dL 01/15/2025 10:32 PM EDT [facility] Total Protein 6.5 6.3 - 7.9 g/dL 01/15/2025 10:32 PM EDT [facility] Albumin, Plasma 3.7 3.5 - 5.2 g/dL 01/15/2025 10:32 PM EDT [facility] AST, Plasma 23 10 - 50 U/L 01/15/2025 10:32 PM EDT [facility] ALT, Plasma 52(H) 10 - 50 U/L 01/15/2025 10:32 PM EDT [facility] Alkaline Phosphatase, Plasma 124(H) 40 - 115 U/L 01/15/2025 10:32 PM EDT [facility] Total Bilirubin, Plasma 0.3 0.2 - 1.1 mg/dL 01/15/2025 10:32 PM EDT [facility] eGFRcr 119.3 mL/min/1.7 3m*2 01/15/2025 10:32 PM EDT [facility] Comment:Reported eGFRcr in m L/min/1.73m2 is based the CKD-EPI 2020 equation that does not use a race coefficient. Blood Venous blood specimen / Unknown Venipuncture / Unknown 01/15/2025 10:11 PM EDT 01/15/2025 10:12 PM EDT Gus Vigil APRN LAB BLOOD ORDERABLES Fin al Result Performing Organization Address City/[facility]/ZIP Co de Phone Number [facility] [address] [place] [address] * PT-INR (01/15/2025 10:11 PM EDT) Pathologist [facility] Prothrombin Time 12.5 12.0 - 14.3 sec 01/15/2025 10:28 PM EDT [facility] INR 1.0 0.9 - 1.1 01/15/2025 10:28 PM EDT [facility] Blood Venous blood specimen / Unknown Venipuncture / Unknown 01/15/2025 10:11 PM EDT 01/15/2025 10:12 PM EDT Narrative [facility] - 01/15/2025 10:28 PM EDT OPTIMAL INR RANGES FOR PATIENT ON ORAL ANTICOAGULANT THERAPY Prevention of venous thromboembolism INR 2.0 to 3.0 In patients with heart disease: Atrial fibrillation INR 2.0 to 3.0 Valvular heart disease INR 2.0 to 3.0 Tissue heart valves INR 2.0 to 3.0 Mechanical prosthetic valves INR 2.5 to 3.5 Prevention of recurrent NC INR 2.5 to 3.5 [facility] [facility] [facility] LAB BLOOD ORDERABLES Fin al Result [facility] [address] [place] [address] * (ABNORMAL) CBC w/diff (01/15/2025 10:11 PM EDT) WBC Count 19.24(H) 3.70 - 10.30 10*3/uL LAB HEMATOLOGY METHOD 01/15/2025 10:14 PM EDT [facility] RBC Count 4.33(L) 4.60 - 6.10 10*6/uL LAB HEMATOLOGY METHOD 01/15/2025 10:14 PM EDT [facility] HGB 13.0(L) 13.7 - 17.5 g/dL LAB HEMATOLOGY METHOD 01/15/2025 10:14 PM EDT [facility] HCT 39.3(L) 40.0 - 51.0 % LAB HEMATOLOGY METHOD 01/15/2025 10:14 PM EDT [facility] Platelet Count 383(H) 155 - 369 10*3/uL LAB HEMATOLOGY METHOD 01/15/2025 10:14 PM EDT [facility] MCV 91 79 - 98 fL LAB HEMATOLOGY METHOD 01/15/2025 10:14 PM EDT [facility] MCH 30.0 26.0 - 32.0 pg LAB HEMATOLOGY METHOD 01/15/2025 10:14 PM EDT [facility] MCHC 33.1 30.7 - 35.5 g/dL LAB HEMATOLOGY METHOD 01/15/2025 10:14 PM EDT [facility] RDW 13.2 11.5 - 14.5 % LAB HEMATOLOGY METHOD 01/15/2025 10:14 PM EDT [facility] MPV 9.2 8.8 - 12.5 fL LAB HEMATOLOGY METHOD 01/15/2025 10:14 PM EDT [facility] nRBC 0.0 <=0.0 per 100 WBCs LAB HEMATOLOGY METHOD 01/15/2025 10:14 PM EDT [facility] Differential Type Automated LAB HEMATOLOGY METHOD 01/15/2025 10:14 PM EDT [facility] Neutrophils % 78 % LAB HEMATOLOGY METHOD 01/15/2025 10:14 PM EDT [facility] Lymphocytes % 12 % LAB HEMATOLOGY METHOD 01/15/2025 10:14 PM EDT [facility] Monocytes % 8 % LAB HEMATOLOGY METHOD 01/15/2025 10:14 PM EDT [facility] Eosinophils % 1 % LAB HEMATOLOGY METHOD 01/15/2025 10:14 PM EDT [facility] Basophils % 0 % LAB HEMATOLOGY METHOD 01/15/2025 10:14 PM EDT [facility] Immature Granulocytes % 1 % LAB HEMATOLOGY METHOD 01/15/2025 10:14 PM EDT [facility] Neutrophils Absolute 15.11(H) 1.60 - 6.10 10*3/uL LAB HEMATOLOGY METHOD 01/15/2025 10:14 PM EDT [facility] Lymphocytes Absolute 2.34 1.20 - 3.90 10*3/uL LAB HEMATOLOGY METHOD 01/15/2025 10:14 PM EDT [facility] Monocytes Absolute 1.46(H) 0.30 - 0.90 10*3/uL LAB HEMATOLOGY METHOD 01/15/2025 10:14 PM EDT [facility] Eosinophils Absolute 0.13 0.00 - 0.50 10*3/uL LAB HEMATOLOGY METHOD 01/15/2025 10:14 PM EDT [facility] Basophils Absolute 0.06 0.00 - 0.10 10*3/uL LAB HEMATOLOGY METHOD 01/15/2025 10:14 PM EDT [facility] Immature Granulocytes Absolute 0.14(H) 0.00 - 0.06 10*3/uL LAB HEMATOLOGY METHOD 01/15/2025 10:14 PM EDT [facility] Blood Venous blood specimen / Unknown Venipuncture / Unknown 01/15/2025 10:11 PM EDT 01/15/2025 10:12 PM EDT Narrative [facility] - 01/15/2025 10:14 PM EDT Therapeutic decision making should be based on absolute values, rather than percentages. us Gus Vigil APRN LAB BLOOD ORDERABLES Fin al Result [facility] [address] [place] [address] documented in this encounter Visit Diagnoses Diagnosis Cellulitis of leg, left- Primary Sepsis following procedure, initial encounter ([facility]) Cellulitis of left lower extremity Acute postoperative pain Other acute postoperative pain Closed fracture of left tibial plateau with routine healing, subsequent encounter Cellulitis of leg, left Cellulitis of left lower extremity Sepsis following procedure ([facility]) Closed fracture of left tibial plateau documented in this encounter Admitting Diagnoses Diagnosis Cellulitis of leg, left Cellulitis of left lower extremity Sepsis following procedure ([facility]) Closed fracture of left tibial plateau [...] Patient/family refused) 0847 (Not Given - Provider: Legih Rg RN - Reason: Patient/family refused) senna-docusate [...] and no response to magnesium hydroxide 0924 ([facility] Hold - Provider: Automatic Transfer Provider - Reason: Patient in procedure)121 ([facility] Unhold - Provider: Automatic Transfer Provider) HYDROmorphone [...] 0411 (Given - Provider: Taryn Miranda RN)09 ([facility] Hold - Provider: Automatic Transfer Provider - Reason: Patient in procedure)121 ([facility] Unhold - Provider: Automatic Transfer Provider)1630 (Not [...] no bowel movement for 48 hours 0924 ([facility] Hold - Provider: Automatic Transfer Provider - Reason: Patient in procedure)121 ([facility] Unhold - Provider: Automatic Transfer Provider) naloxone [...] documented as of this encounter Care Teams Jazz Singer Relationship Specialty Start Date End Date Renetta Pardo APRN [address] [place] [address] [place] [address] PCP - General 09/09/23 02/16/25 documented as of this encounter
--- OUTSIDE RECORDS SUMMARY | 2025-01-18 09:01 | XMS_ITS | Encounter Summary ---
Author Organization Healthcare Address [address] [place] [address] Care Team Providers Care Technology Instructor Name Role Phone Renetta Pardo APRN Primary Care Provider [phone] Reason for Visit * Reason Comments Post-op Problem * Auth/Cert (Routine) Specialty Diagnoses / Procedures Referred By Adalid t Referred To Contact Diagnoses Acute postoperative pain Cellulitis of leg, left Cellulitis of left lower extremity Sepsis following procedure, initial encounter ([facility]) recent LLE surgery @ now with cellulitis Sachin Garza MD [address] [address] Phone: tel: fax: P[facility] H Inpatient [address] [place] [address] Phone: tel: Referral ID Status Reason Start Date Expiration Date Visits Re quested Visits Authorized [id number] 1 1 Encounter Details Date Type Department Care Team (Late st Contact Info) Description 01/18/2025 9:01 AM EDT - 01/18/2025 11:06 AM EDT Surgery [facility] A OPERATING ROOM [address] [place] [id number] Ye Navarro MD [address] [address] INCISION AND DRAINAGE, LOWER EXTREMITY [...] any time in the past 12 m [facility], were you homeless or living in [...] first t traci in the morning ([employer]) to steady your nerves or to get rid of a hangover? 0 09/10/2023 CAGE Questionnaire Score 0 024 Utilities Answer Date Recorded In the past 12 months has th e [employer], gas, oil, or water company threatened to [...] the video go to this web address: [email or web address] Or, scan this QR code with your smart phone ?? [facility] * Rosaura OnFHIR - Leigh Rg RN - 01/22/2025 4:21 PM EDT Images from the original note were not included. 40608 Flushing Your PICC Line at Home Your [...] soap and water, use an alcohol-based hand trimming machine operator. The gel should have at least [...] PICC. Last Reviewed Date: 2024 00:00:00 ?? [id number] [employer]. All rights reserved. This information is not intended as a substitute for professional medical care. Always follow your healthcare professional's instructions. * Rosaura OnIR - Leigh Rg RN - 01/22/2025 4:21 PM EDT Images from the original note were not included. 79662 Discharge Instructions: Changing the Dressing on Your [...] damage Last Reviewed Date: 2024 00:00:00 ?? [id number] [employer]. All rights reserved. This information is not [...] the video go to this web address: [email or web address] Or, scan this QR code with your smart phone ?? [facility] * Leigh Muller RN - 01/22/2025 4:20 PM EDT Images from the original note were not included. 16149 Understanding Post Sepsis Syndrome (PSS) Sepsis is [...] infections Last Reviewed Date: 2022 00:00:00 ?? 8875-7939 [employer]. All rights reserved. This information is not intended as a substitute for professional medical care. Always follow your healthcare professional's instructions. * Rosaura OnFHIR - Leigh Rg RN - 01/22/2025 4:20 PM EDT Images from the original note were not included. [id number] Buckle (Torus) Fracture of a Leg Your [...] you can dry it with a chair inspector and leveler on the cool setting. ? Put an [...] doctor Last Reviewed Date: 2024 00:00:00 ?? 7658-9769 [employer]. All rights reserved. This information is not intended as a substitute for professional medical care. Always follow your healthcare professional's instructions. * Rosaura [facility] - Leigh Rg RN - 01/22/2025 4:20 PM EDT Images from the original note were not included. 41038 Discharge Instructions for Cellulitis You have been [...] are in pain. Ask what kind of fuvn-gav-efvpspn medicine you can take for pain. ? [...] Vomiting. Last Reviewed Date: 2024 00:00:00 ?? 5317-5657 [employer]. All rights reserved. This information is not intended as a substitute for professional medical care. Always follow your healthcare professional's instructions. * Discharge Summary - Mauricio Mondragon MD - 01/22/2025 4:16 PM EDT Hospitalization Admit Date/Time: 01/15/2025 9:32 PM Admitting Attending: Sachin Garza Discharge Date: 01/22/25 Discharge Attending Physician: Sachin Garza MD PCP name and Address: Renetta Pardo APRN [address] [place] [address] Dr Silverman / [facility] [address] Referring provider name and address: Maldonado Luciano PA [address] [place] [address] [place] [address] Chief Concern, Brief History of Present Illness, and Hospital Course Patient arrived to [facility] on 01[facility]15[facility]25 with concern for surgical [...] medications were sent to [facility] -[place], [place] - [address], [facility] [address] DAPTOmycin injection These medications were sent to [facility] - [place], [place] - [address] [facility] [address] oxyCODONE 5 MG immediate release capsule Discharge Diagnosis Medical Problems Active and Resolved Hospital Problems Hospital Closed fracture of left tibial plateau Overview Addendum 09/16/2023 1:42 PM by Rolanda Adams APRN, KALYANI ORT consulted TROM in place WB per ORT 09/15: ORIF L tibial plateau fx Follow up with Dr. Nava on 10/04 * (Principal) Cellulitis of leg, left Sepsis following procedure ([facility]) Cellulitis of left lower extremity Post Discharge [...] Time Provider Department Center 01/27/2025 11:00 AM [facility] ORTHOPAEDICS MAINTENANCE SERVICE DISPATCHER [facility] 02/03/2025 8:10 AM Lawrence Hayes MD [facility] 02/11/2025 1:00 PM Ary Santiago APRN [facility] [place] 03/03/2025 1:00 PM Ary Santiago APRN [facility] [place] Test Results Pending At Discharge Pending Labs [...] General: Spoke with: Patient, Family, and Bedside shaft headman and Interventions: Assessed: Dressing Dressing Interventions: CDI [...] please contact the Orthopedic Transition Nurse at [phone] Monday through Monday 8:00 am to 2:30 pm. If you feel your concern is a medical emergency please call 911 immediately * Progress Notes - Anna Elam RN - 01/22/2025 9:28 AM EDT Case Management Discharge Note Ravin Ribeiro 34 y.o. male CSN: [id number] Admission: 01/15/2025 9:32 PM Primary Problem: Cellulitis of leg, left Primary Shank Taper: Primary Caregiver: Self Assistance Available at Discharge: Current Outpatient/Agency/Support Group: DME Availability of Care Givers (#Hours): 24 hours Family/Shank Taper(s) Willingness Assessed to care for patient at home: Yes Family/Shank Taper(s) Readiness Assessed to care for patient at [...] Community Agency(s): Patient's Choice of Community Agency(s): [facility] Patient/Family Anticipated Services at Transition: Patient/Family [...] in place. Pt will follow up at [facility] for weekly PICC care and labs. First appointment is scheduled for 01/27 at 11 AM. Pt's family will be able to provide assistance and transportation. [facility] will complete teaching today and deliver IV ABX to bedside around 3 PM. Pt and S/O is aware and agreeable to discharge POC. [facility] [phone] [phone] Anna Elam RN * Progress Notes - [...] required Ayden Canseco MD PGY-1, Orthopaedic Surgery [facility] Orthopaedic Trauma Service Pager: [phone] Orthopaedic Recon/Spine/Foot and Ankle Service Pager: [phone] Cosigned by Lawrence Hayes MD at 01/22/2025 [...] required Red Mondragon MD Orthopaedic Surgery PGY-1 [facility] Orthopaedic Trauma Service Pager: [phone] Orthopaedic Recon/Spine/Foot and Ankle Service Pager: [phone] Personal Pager: [phone] Cosigned by Lawrence Hayes MD at 01/22/2025 1:06 PM EDT * Procedures - Norma Miranda RN - 01/21/2025 7:01 PM EDTAssociated Order(s): Insert PICC line Insert PICC line Date/Time: 01/21/2025 7:01 PM Performed by: Norma Miranda RN Authorized by: Sachin Garza MD [place] Protocol: Verbal consent obtained?: Yes Written consent [...] preference Patient position: Supine Catheter Lot #: [id number] Catheter movie critic: [employer] Solo Catheter placed: Single lumen Catheter size: [...] 01/21/2025 3:28 PM EDT Referrals sent to [facility] and for for possible home IV antibiotic infusion. There was no accepting companies in patient's area. CM spoke with patient and he is agreeable to either go to his local hospital [facility] or come to [facility] in [place] for his weekly PICC care/labs if needed. * Nursing Note - Camden Vital, RN - 01/21/2025 1:45 PM EDT Orthopedic Transition Nurse Note General: Spoke with: Patient, Family, and Bedside shaft headman and Interventions: Assessed: Dressing Dressing Interventions: CDI [...] please contact the Orthopedic Transition Nurse at [phone] Monday through Monday 8:00 am to 2:30 pm. If you feel your concern is a medical emergency please call 911 immediately * Steff Odell RN - 01/21/2025 11:57 AM EDT Images from the original note were not included. [id number] PICC Line Care PICC stands for peripherally [...] arm Last Reviewed Date: 2024 00:00:00 ?? [id number] [employer]. All rights reserved. This information is not intended as a substitute for professional medical care. Always follow your healthcare professional's instructions. * Steff Odell RN - 01/21/2025 11:56 AM EDT Images from the original note were not included. [id number] * Steff Odell RN - 01/21/2025 11:56 AM EDT Images from the original note were not included. 18772 * Steff Odell RN - 01/21/2025 11:56 [...] your house or a medical facility. The classification case manager/social studies department chair will setthat up based on your insurance. [...] or during weekends/[place] holidays, call the paging dishtank operator at . Ask for the infectious disease fellow service control operator. Call the clinic if you have any [...] from the original note were not included. 34935 Flushing Your PICC Line at Home Your [...] soap and water, use an alcohol-based hand trimming machine operator. The gel should have at least [...] PICC. Last Reviewed Date: 2024 00:00:00 ?? 3015-5632 [employer]. All rights reserved. This information is not intended as a substitute for professional medical care. Always follow your healthcare professional's instructions. * Rosaura OnDILLON - Steff Paz RN - 01/21/2025 11:56 AM EDT Images from the original note were not included. [id number] Daptomycin Injection Brand Name(s): Cubicin??, Cubicin RF??; [...] be awakened, immediately call emergency services at 881. What OTHER INFORMATION should I know? Keep [...] of all of the prescription and nonprescription (fqtv-hqx-cyjqjfv) medicines you are taking, as well as [...] or pharmacist about specific clinical use. The [employer] represents that the information provided hereunder was formulated with a reasonable standard of care, and in conformity with professional standards in the field. The [employer] makes no representations or warranties, express or implied, including, but not limited to, any implied warranty of merchantability and/or fitness for a particular purpose, with respect to such information and specifically disclaims all such warranties. Users are advised that decisions regarding drug therapy are complex medical decisions requiring the independent, informed decision of an appropriate health rn progressive care unit, and the information is provided for informational purposes only. The entire monograph for a drug should be reviewed for a thorough understanding of the drug's actions, uses and side effects. The [employer] does not endorse or recommend the use of any drug.The information is not a substitute for medical care. AHFS?? Patient Medication Information?. ?? Copyright, 2023. The [employer]??, [address], [address], [place], [place]. All Rights Reserved. Duplication for commercial use must be authorized by [facility]. Selected Revisions: July 28, 2019. AHFS?? Patient Medication Information?. ?? Copyright, 2024 * Anthonyjose de jesus [facility] - Steff Paz RN - 01/21/2025 11:56 AM EDT Images from the original note were not included. 68745 Discharge Instructions: Caring for Your Peripherally Inserted [...] damage. Last Reviewed Date: 2024 00:00:00 ?? 0399-5233 [employer]. All rights reserved. This information is not intended as a substitute for professional medical care. Always follow your healthcare professional's instructions. * Rosaura OnFHIR - Steff Paz RN - 01/21/2025 11:56 AM EDT Images from the original note were not included. 90672 Central Line Infections You need a central [...] water. Or they use an alcohol-based hand trimming machine operator containing at least 60% alcohol. ? [...] (warm or cold), and use alcohol-based hand trimming machine operator with at least 60% alcohol as directed. To clean your hands well,follow the guidelines on this sheet. Visitors should wash their hands well when they arrive and when they leave. ? Make sure healthcare staff and your visitors clean their hands. They should use soap and clean, running water or an alcohol-based hand trimming machine operator before and after checking the line. [...] good choice for cleaning your hands. The trimming machine operator should have at least 60% alcohol. Note that some germs can't be killed by alcohol. Your healthcare team can answer any questions you have about when to use a hand trimming machine operator, or when it?s better to wash with soap and water. Follow these steps: ? Spread the hand trimming machine operator in the palm of one hand. (Check the package for specific guidelines.) ? Rub your hands together briskly. Clean the backs of your hands, the palms, between your fingers, and up your wrists. ? Rub until the trimming machine operator is gone and your hands are [...] skin Last Reviewed Date: 2023 00:00:00 ?? 5487-0809 [employer]. All rights reserved. This information is not [...] Single Lumen PICC Patient Specific Outpatient Circumstances: [address] [place] [address] Family Support: Extended Emergency Contact Information Primary Emergency Contact: Hayley Buenrostro Address: [address] [place] [address] Mobile Relation: Significant Other Preferred language: Chadian Cinder Worker needed? No Secondary Emergency Contact: Jenny Buenrostro Address: [place] [address] [place] Relation: Mother Contact information: Ravin Ribeiro [phone] (home) Outpatient services (including home infusion, home health, facility referral: See recent [facility] case management/social work note for finalization of services ID follow up appointment: Future Appointments Date Time Provider Department Center 02/03/2025 8:10 AM Lawrence Hayes MD [facility] 02/11/2025 1:00 PM Ary Santiago APRN [...] via secure chat or staff messaging in Domee. Patient and family will need to be educated by the infusion company before being discharged home. This note is not the final recommendation from the infectious diseases team, please refer to the mostrecent note for this information. Steff aPz, SHEREEN 01/21/2025 * Progress Notes - Michelle [...] days prior to presentation. He presented to [facility] wherehe was febrile to 101.3F. Upon [...] PA-C Division of Infectious Diseases Available on Domee Chat History, assessment, and plan discussed with [...] labs to: ID OPAT Team Fax #: [phone] Appointments: Ary Santiago APRN on 02/11 at 1PM and 03/03 at 1PM [facility]: [address] [place] [address] (Select Option 3 for IV Antibiotic / PICC line related issues) For questions regarding OPAT prior to discharge, reach out to the OPAT team via Domee Secure Chat (Group: OPAT Referral Team). For all questions regarding OPAT after discharge should be directed to the OPAT Team at (Select Option 3 for IV Antibiotics/PICC Issues) between 8am-5pm. After 5 pm, or during weekends/[place] holidays, please call the paging dishtank operator at to reach the on-call ID [...] 60 mg 60 mg Subcutaneous BID Gustavo Highotwer MD 60 mg at 01/21/25 0901 ibuprofen [...] 5 mg 5 mg Oral q6h PRN Muaricio Mondragon MD 5 mg at 01/21/25 0903 [...] at 01/18/25 1133 [2] Allergies Allergen Reactions Vanduser Hives * Consults - Delma Ortiz - 01/21/2025 10:00 AM EDT Pastoral Care Note: Patient was appreciative of washtub worker helper's visit and expressed gratitude to the care team. he said family is on their way to him. Referral From: Shade Cutter Initiated Pastoral Care Provided For: Patient Patient Profile: Spiritual Assessment: Support Systems/ Spiritual Resources: Treasure, Sense of Peace, Trust, Gratitude Spiritual Needs: Emotional support, Spiritual ritual Spiritual Issues: Discharge Interventions: Pastoral Care Outcomes: Patient Outcomes: Appreciative of Shade Cutter Support, Expresses acceptance, Gratitude Cosigned by Macrina Dumont at 01/21/2025 6:24 PM EDT Associated attestation - Macrina Dumont - 01/21/2025 6:24 PM EDT This is to attest washtub worker helper global marketing intern chart note has been reviewed and [...] in room/hallway with family and senior staff consultant while remains inpatient. Patient demonstrates no further [...] Prevent or Manage Infection Flowsheets (Taken 01/20/2025 5217) Infection Management: aseptic technique maintained Fever Reduction/Comfort [...] Agree with above assessment and evaluation from resident/BRIMMING MACHINE OPERATOR. * Progress Notes - Anna Elam RN - 01/20/2025 10:48 AM EDT Case Management Adult Progress Note Ravin Ribeiro 34 y.o. male CSN: [id number] Admission: 01/15/2025 9:32 PM Primary Problem: Cellulitis of leg, left Anticipated Discharge Date: TBD Pt to OR today for repeat I&D on left knee. Pt has worsening NORMAN and team wants to repeat AM labs. Final ID recs and OPAT eval are pending. [facility] today. Pt's medicaid may be a potential barrier to HH. CM will continue to assist with discharge POC. Anna Elam RN * Op Note - Bob Nava MD - 01/20/2025 10:26 AM EDT Operative Note Date: 01/20/25 Location: [facility] Name: Ravin Ribeiro, : 1990, Diagnoses: Pre-op Diagnosis Closed fracture of left tibial plateau with routine healing, subsequent encounter Left proximal tibia (knee region) deep abscess Post-op Diagnosis Closed fracture of left tibial plateau with routine healing, subsequent encounter Left proximal tibia (knee region) deep abscess Procedure(s): Incision and drainage of left knee deep abscess Attending Surgeon(s): * Bob Nava - Primary Etiquette Teacher(s): * Emely Giron MD - Resident - [...] Therapeutic Drug Monitoring HPI and Hospital Course: Rvain Ribeiro is a 34 y.o. male who [...] days prior to presentation. He presented to [facility] wherehe was febrile to 101.3F. Upon [...] PA-C Division of Infectious Diseases Available on Domee Chat History, assessment, and plan discussed with [...] Gustavo Hightower MD [2] Allergies Allergen Reactions Vanduser Hives * Consults - Ricco Howard RN [...] required Ayden Canseco MD PGY-1, Orthopaedic Surgery [facility] Orthopaedic Trauma Service Pager: [phone] Orthopaedic Recon/Spine/Foot and Ankle Service Pager: [phone] Cosigned by Sachin Garza MD at 01/20/2025 [...] Course 1. Sepsis following procedure, initial encounter ([facility]) 2. Cellulitis of left lower extremity 3. [...] admission Level of Mobility: Ambulatory- community Mobility [place]: Independent gait without device (intermittne use of [...] Mobility Bed Mobility Exam: Scooting/Bridging Level of [place]: Independent Bed Mobility Exam: Supine to Sit Level of [place]: Independent Transfers Transfer Exam: Sit to stand Level of [place]: Stand-by assist Physical/Nonphysical Assist: Verbal Cues Assistive Device: Walker, rolling Transfer Exam: Stand to Sit Level of [place]: Stand-by assist Physical/Nonphysical Assist: Verbal Cues Assistive Device: Walker, rolling Toilet Transfer Level of [place]: Stand-by assist Physical/Nonphysical Assist: Verbal Cues Type of Transfer: Ambulation, To toilet Assistive Device: Walker, rolling, Grab bar Functional Mobility Device: Rolling walker Assistance: Standby assist <Household distance, cuing for safety, pacing activity, RW management, and encouraged L LE WBAT-as permitted per chart (pt reports being used to NWB for pain management SILK OPENER) Balance Postural Appearance Posture: Within Functional Limits [...] admission Level of Mobility: Ambulatory- community Mobility [place]: Independent gait without device (intermittne use of [...] Mobility Bed Mobility Exam: Scooting/Bridging Level of [place]: Independent Bed Mobility Exam: Supine to Sit Level of [place]: Independent Transfers Transfer Exam: Sit to stand Level of [place]: Stand-by assist Physical/Nonphysical Assist: Verbal Cues Assistive Device: Walker, rolling Transfer Exam: Stand to Sit Level of [place]: Stand-by assist Physical/Nonphysical Assist: Verbal Cues Assistive [...] . Standardized Assessments Standardized Assessments Standardized Assessments: [facility] 6-Clicks Mobility Assessment AMPA 6-Clicks Mobility Assessment [...] 3-5 steps with a railing?: A little [facility] 6-Clicks Mobility Assessment Total : 23 No [...] required Red Mondragon MD Orthopaedic Surgery PGY-1 [facility] Orthopaedic Trauma Service Pager: [phone] Orthopaedic Recon/Spine/Foot and Ankle Service Pager: [phone] Personal Pager: [phone] Cosigned by Ye Navarro MD at 01/21/2025 [...] AM EDT Operative Note Date: 01/18/25 Location: [facility] Name: Ravin Ribeiro, : 1990, Diagnoses: Pre-op Diagnosis Cellulitis of left lower extremity Post-op Diagnosis Cellulitis of left lower extremity Procedure(s): Irrigation and debridement of left medial tibial plateau deep abscess Attending Surgeon(s): * Ye Navarro - Primary Etiquette Teacher(s): * Harvey Swift MD - Resident - [...] well as other factors in accordance with [place] policy. The left lower extremity was then 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 shaft headman and Interventions: Assessed: Wound 01/01/25 Surgical Open [...] please contact the Orthopedic Transition Nurse at [phone] Monday through Monday 8:00 am to 2:30 [...] ] Family [ ] Friend [ ] Cinder Worker [X] Medical records HISTORY OF PRESENT ILLNESS: [...] medial pretibial incision so he presented to [facility] for evaluation. He was febrile to101.3F [...] on day of presentation. He lives in [place] with his , CONSTANZA, and 2 young [...] days prior to presentation. He presented to [facility] wherehe was febrile to 101.3F. Upon [...] PA-C Division of Infectious Diseases Available on Domee Chat History, assessment, and plan discussed with ID attending, Dr. Azucena Collado The following complex inpatient infectious disease services were performed today: Complex antimicrobial therapy counseling and treatment [1] History reviewed. No pertinent past medical history. [2] Past Surgical History: Procedure Laterality Date LEG SURGERY Left [3] Allergies Allergen Reactions Vanduser Hives [4] Current Facility-Administered Medications Medication Dose Route Frequency Provider Last Rate Last Admin acetaminophen (Tylenol) tablet 1,000 mg 1,000 mg Oral q6h [facility] Tyrone Howard MD 1,000 mg at 01/17/25 [...] Note Ravin Ribeiro 34 y.o. male CSN: [id number] Admission: 01/15/2025 9:32 PM Primary Problem: Cellulitis of leg, left Bar Captain reviewed chart and spoke with patient to complete this Initial Case Management Assessment. PCP: Renetta Pardo APRN Emergency Contact: Extended Emergency Contact Information Primary Emergency Contact: Hayley Buenrostro Address: [address] [place] [address] Mobile Relation: Significant Other Preferred language: Chadian Cinder Worker needed? No Secondary Emergency Contact: Jenny Buenrostro Address: [address] [place] [address] Mobile Relation: Mother Insurance: Primary Visit Coverage Payer Plan Sponsor Code Group Number Group Name [employer]ICAID MOLINA PAS[employer]ORT [place]OL[employer] MEDICAID Primary Visit Coverage Subscriber Subscriber ID Subscriber Name Subscriber N Subscriber Address [id number] RAVIN RIBEIRO [id number] [place] [address] Patient information: Primary Caregiver: Self Support System: Immediate family Daily Living Activities: Functional Status: Independent Living Arrangements: Spouse/Significant other, Family Type of Residence: Private residence, Single Level [address] [place] [address] Current DME: Equipment Currently Used at Home: [...] Outpatient Dialysis Services: Living Will/Advance Directive/Power of Systems Lead /Guardian: Have you reviewed your Advance Directive [...] Pt states he lives at home in [place] with his , CONSTANZA, and two small 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 shaft headman and Interventions: Assessed: Wound 01/01/25 Surgical Open Surgical Incision Pretibial Left;Proximal (Active) Wound Assessment Red 01/15/25 2150 Margins Well-defined edges;Attached edges 01/15/25 2150 Janeth-Wound Assessment Red 01/15/25 2150 Closure [place] 01/15/25 2150 Wound 01/01/25 Face Left;Upper (Active) [...] please contact the Orthopedic Transition Nurse at [phone] Monday through Monday 8:00 am to 2:30 [...] tibial pulse, cap refill <2 sec, digits [facility] Orthopedic Surgery Tertiary Exam Completed 01/16/25 No [...] exams. Mitch Giron MD PGY-3, Orthopaedic Surgery [facility] Orthopaedic Trauma Service Pager: [phone] Orthopaedic Recon/Spine/Foot and Ankle Service Pager: [phone] Cosigned by Sachin Garza MD at 01/18/2025 [...] your wound. Based upon recent changes to [place] law related to prescribing opioid pain medications, [...] please contact the Orthopedic Transition Nurse at [phone] Monday through Monday 8:00 am to 2:30 [...] examinations WRadha Howard MD PGY-2, Orthopaedic Surgery [facility] Cosigned by Sachin Garza MD at [...] fracture Tabitha Howard MD PGY-2, Orthopaedic Surgery [facility] Orthopaedic Trauma Service Pager: [phone] Orthopaedic Recon/Spine/Foot and Ankle Service Pager: [phone] [1] History reviewed. No pertinent past medical [...] 25 tablet 0 [4] Allergies Allergen Reactions Vanduser Hives Cosigned by Sachin Garza MD at [...] this ED in conjunction with Dr. Mann. -[facility] records were reviewed and used in [...] 01/16/25 06 Sepsis following procedure, initial encounter ([facility]) Cellulitis of left lower extremity Acute postoperative [...] diagnosis was Sepsis following procedure, initial encounter ([facility]). Diagnoses of Cellulitis of left lower extremity [...] Drug use: Never [5] Allergies Allergen Reactions Vanduser Hives Gus Vigil APRN 01/16/25656 Cosigned by [...] 01/16/25 0733 Sepsis following procedure, initial encounter ([facility]) Cellulitis of left lower extremity Acute postoperative pain Ultimately, this patient Was admitted (Admission) The primary encounter diagnosis was Sepsis following procedure, initial encounter ([facility]). Diagnoses of Cellulitis of left lower extremity [...] Description 2025 7:50 AM EDT Office Visit [facility] Orthopaedic Surgery & Sports Medicine [address] [place] [address] BrownStella, ENGINEERING SURVEYOR [address] [place] [address] 2025 10:30 AM EDT Office Visit [facility] [address] [place] [id number] Santiago Collado MD [address] [place] [address] [address] [place] [address] 03/27/2025 9:30 AM EDT Office Visit [facility] [address] [place] [id number] Santiago Collado MD [address] [place] [address] [address] [place] [address] Scheduled Orders Name Type Priority [...] C-reactive protein (01/22/2025 5:04 AM EDT) Pathologist [facility] CRP, Plasma 44.4(H) <=8.0 mg/L 01/22/2025 9:25 AM EDT [facility] Blood Venous blood specimen / Unknown Venipuncture / Unknown 01/22/2025 5:04 AM EDT 01/22/2025 5:31 AM EDT Narrative [facility] - 01/22/2025 9:25 AM EDT This CRP test is appropriate for assessment of infection, systemic inflammation and/or tissue injury. To assess cardiovascular disease risk order high sensitivity CRP (CRPH). us Michelle ZULUAGA LAB BLOOD ORDERABLES Final Res ult [facility] [address] [place] [address] * Lavender Top (01/22/2025 5:04 AM EDT) Pathologist [facility] Extra Hold for add-ons 01/22/2025 8:02 AM EDT [facility] Comment:Auto resulted. Blood Venous blood specimen / Unknown 01/22/2025 5:04 AM EDT 01/22/2025 5:30 AM EDT us Sachin Garza MD LAB BLOOD ORDERABLES Final R esult [facility] [address] [place] [address] * (ABNORMAL) Basic metabolic panel (01/22/2025 5:04 AM EDT) Pathologist [facility] Glucose, Plasma 91 74 - 99 mg/dL 01/22/2025 6:01 AM EDT [facility] BUN, Plasma 33(H) 7 - 21 mg/dL 01/22/2025 6:01 AM EDT [facility] Creatinine, Plasma 1.47(H) 0.70 - 1.20 mg/dL 01/22/2025 6:01 AM EDT [facility] BUN/Creatinine Ratio 22 01/22/2025 6:01 AM EDT [facility] Sodium, Plasma 137 136 - 145 mmol/L 01/22/2025 6:01 AM EDT [facility] Potassium, Plasma 5.3(H) 3.6 - 4.9 mmol/L 01/22/2025 6:01 AM EDT [facility] Chloride, Plasma 100 97 - 107 mmol/L 01/22/2025 6:01 AM EDT [facility] CO2, Plasma 28 22 - 29 mmol/L 01/22/2025 6:01 AM EDT [facility] Anion Gap 9 6 - 16 mmol/L 01/22/2025 6:01 AM EDT [facility] Total Calcium, Plasma 9.6 8.9 - 10.2 mg/dL 01/22/2025 6:01 AM EDT [facility] eGFRcr 63.4 mL/min/1.7 3m*2 01/22/2025 6:01 AM EDT [facility] Comment:Reported eGFRcr in m L/min/1.73m2 is based the CKD-EPI 2020 equation that does not use a race coefficient. Blood Venous blood specimen / Unknown Venipuncture / Unknown 01/22/2025 5:04 AM EDT 01/22/2025 5:31 AM EDT us Sachin Garza MD LAB BLOOD ORDERABLES Final R esult [facility] [address] [place] [address] * (ABNORMAL) CBC (01/21/2025 7:29 PM EDT) WBC Count 10.10 3.70 - 10.30 10*3/uL LAB HEMATOLOGY METHOD 01/21/2025 7:42 PM EDT [facility] RBC Count 3.82(L) 4.60 - 6.10 10*6/uL LAB HEMATOLOGY METHOD 01/21/2025 7:42 PM EDT [facility] HGB 11.5(L) 13.7 - 17.5 g/dL LAB HEMATOLOGY METHOD 01/21/2025 7:42 PM EDT [facility] HCT 35.2(L) 40.0 - 51.0 % LAB HEMATOLOGY METHOD 01/21/2025 7:42 PM EDT [facility] Platelet Count 446(H) 155 - 369 10*3/uL LAB HEMATOLOGY METHOD 01/21/2025 7:42 PM EDT [facility] MCV 92 79 - 98 fL LAB HEMATOLOGY METHOD 01/21/2025 7:42 PM EDT [facility] MCH 30.1 26.0 - 32.0 pg LAB HEMATOLOGY METHOD 01/21/2025 7:42 PM EDT [facility] MCHC 32.7 30.7 - 35.5 g/dL LAB HEMATOLOGY METHOD 01/21/2025 7:42 PM EDT [facility] RDW 13.1 11.5 - 14.5 % LAB HEMATOLOGY METHOD 01/21/2025 7:42 PM EDT [facility] MPV 9.1 8.8 - 12.5 fL LAB HEMATOLOGY METHOD 01/21/2025 7:42 PM EDT [facility] nRBC 0.0 <=0.0 per 100 WBCs LAB HEMATOLOGY METHOD 01/21/2025 7:42 PM EDT [facility] Blood Venous blood specimen / Unknown Venipuncture / Unknown 01/21/2025 7:29 PM EDT 01/21/2025 7:35 PM EDT us Sachin Garza MD LAB BLOOD ORDERABLES Final R esult [facility] [address] [place] [address] * (ABNORMAL) Basic metabolic panel (01/21/2025 7:29 PM EDT) Pathologist [facility] Glucose, Plasma 122(H) 74 - 99 mg/dL 01/21/2025 8:03 PM EDT [facility] BUN, Plasma 31(H) 7 - 21 mg/dL 01/21/2025 8:03 PM EDT [facility] Creatinine, Plasma 1.64(H) 0.70 - 1.20 mg/dL 01/21/2025 8:03 PM EDT [facility] BUN/Creatinine Ratio 19 01/21/2025 8:03 PM EDT [facility] Sodium, Plasma 139 136 - 145 mmol/L 01/21/2025 8:03 PM EDT [facility] Potassium, Plasma 4.6 3.6 - 4.9 mmol/L 01/21/2025 8:03 PM EDT [facility] Chloride, Plasma 101 97 - 107 mmol/L 01/21/2025 8:03 PM EDT [facility] CO2, Plasma 26 22 - 29 mmol/L 01/21/2025 8:03 PM EDT [facility] Anion Gap 12 6 - 16 mmol/L 01/21/2025 8:03 PM EDT [facility] Total Calcium, Plasma 9.1 8.9 - 10.2 mg/dL 01/21/2025 8:03 PM EDT [facility] eGFRcr 55.6 mL/min/1.7 3m*2 01/21/2025 8:03 PM EDT [facility] Comment:Reported eGFRcr in m L/min/1.73m2 is based the CKD-EPI 2020 equation that does not use a race coefficient. Blood Venous blood specimen / Unknown Venipuncture / Unknown 01/21/2025 7:29 PM EDT 01/21/2025 7:35 PM EDT Sachin Garza MD LAB BLOOD ORDERABLES Final R esult [facility] [address] [place] [address] * PICC SINGLE LUMEN (SMARTFORM LINK) (01/21/2025 7:01 PM EDT) Narrative Norma Miranda RN - 01/21/2025 7:01 PM EDT Norma Miranda RN 01/21/2025 7:19 PM Insert PICC line Date/Time: 01/21/2025 7:01 PM Performed by: Norma Miranda RN Authorized by: Sachin Garza MD [place] Protocol: Verbal consent obtained?: Yes Written consent [...] preference Patient position: Supine Catheter Lot #: [id number] Catheter movie critic: Bard PowerPICC Solo Catheter placed: Single lumen [...] at day 4 2024 7:15 AM EDT [facility] Gram Stain Result No polymorphonuclear leukocytes seen 01/25/2025 7:15 AM EDT [facility] Gram Stain Result No organisms seen 01/25/2025 7:15 AM EDT [facility] Swab Structure of left knee region / Unknown 01/20/2025 10:42 AM EDT 01/20/2025 11:25 AM EDT Comment:Pre-op diagnosis: Closed fracture of left tibial plateau with routine healing, subsequent encounter [S82.300D] Bob Nava MD LAB MICROBIOLOGY - GENERAL O RDERABLES Final Result Performing Organization Address [facility] Co de Phone Number [facility] [address] [place] [address] * Fungal Culture, Routine (01/20/2025 10:42 AM EDT) Culture No Fungal Growth at 1 Week 01/28/2025 7:34 AM EDT [facility] Swab Structure of left knee region / Unknown 01/20/2025 10:42 AM EDT 01/20/2025 11:25 AM EDT Comment:Pre-op diagnosis: Closed fracture of left tibial plateau with routine healing, subsequent encounter [U12.055D] us Bob Nava MD LAB MICROBIOLOGY - GENERAL O RDERABLES Final Result Performing Organization Address City/[facility]/ZIP Co de Phone Number [facility] [address] [place] [address] * Anaerobic Culture (01/20/2025 10:42 AM EDT) Culture No growth at day 4 01/28/2025 7:09 AM EDT [facility] Swab Structure of left knee region / Unknown 01/20/2025 10:42 AM EDT 01/20/2025 11:25 AM EDT Comment:Pre-op diagnosis: Closed fracture of left tibial plateau with routine healing, subsequent encounter [S82.142D] us Bob Nava MD LAB MICROBIOLOGY - GENERAL [place] [address] * Fungal Culture, Tissue and SYEDA (01/20/2025 10:30 AM EDT) Culture Reading Mycological 4 Weeks No Fungal Growth at 4 Weeks 02/18/2025 6:03 AM EDT [facility] SYEDA No fungal elements seen 02/18/2025 6:03 AM EDT [facility] Tissue Structure of left knee region / Unknown 01/20/2025 10:30 AM EDT 01/20/2025 11:23 AM EDT Comment:Pre-op diagnosis: Closed fracture of left tibial plateau with routine healing, subsequent encounter [S82.142D] us Bob Nava MD LAB MICROBIOLOGY - GENERAL O RDERABLES Final Result [facility] [address] [place] [address] * AFB Culture, Non Respiratory Source and Acid Fast Stain (01/20/2025 10:30 AM EDT) AFB Culture No Mycobacterial Growth at 6 Weeks 03/04/2025 4:02 PM EDT [facility] Acid Fast Stain No acid fast bacilli seen 03/04/2025 4:02 PM EDT [facility] Tissue Structure of left knee region / Unknown 01/20/2025 10:30 AM EDT 01/20/2025 11:23 AM EDT Comment:Pre-op diagnosis: Closed fracture of left tibial plateau with routine healing, subsequent encounter [S82.142D] us Bob Nava MD LAB MICROBIOLOGY - GENERAL O RDERABLES Final Result Performing Organization Address City/[facility]/ZIP Co de Phone Number [facility] [address] [place] [address] * Tissue Culture and Gram Stain (01/20/2025 10:30 AM EDT) Culture No growth at day 4 2024 7:15 AM EDT [facility] Gram Stain Result No polymorphonuclear leukocytes seen 01/25/2025 7:15 AM EDT [facility] Gram Stain Result No organisms seen 01/25/2025 7:15 AM EDT [facility] Tissue Structure of left knee region / Unknown 01/20/2025 10:30 AM EDT 01/20/2025 11:23 AM EDT Comment:Pre-op diagnosis: Closed fracture of left tibial plateau with routine healing, subsequent encounter [S82.142D] us Bob Nava MD LAB MICROBIOLOGY - GENERAL O RDERABLES Final Result Performing Organization Address [facility] Co de Phone Number [facility] [address] [place] [address] * Anaerobic Culture (01/20/2025 10:30 AM EDT) Culture No growth at day 4 01/28/2025 7:09 AM EDT [facility] Tissue Structure of left knee region / Unknown 01/20/2025 10:30 AM EDT 01/20/2025 11:23 AM EDT Comment:Pre-op diagnosis: Closed fracture of left tibial plateau with routine healing, subsequent encounter [S82.142D] us Bob Nava MD LAB MICROBIOLOGY - GENERAL O RDERABLES Final Result Performing Organization Address City/[facility]/ZIP Co de Phone Number [facility] [address] [place] [address] * Fungal Culture, Tissue and SYEDA (01/20/2025 10:27 AM EDT) Culture Reading Mycological 4 Weeks No Fungal Growth at 4 Weeks 02/18/2025 6:03 AM EDT [facility] SYEDA No fungal elements seen 02/18/2025 6:03 AM EDT [facility] Tissue Structure of left knee region / Unknown 01/20/2025 10:27 AM EDT 01/20/2025 11:24 AM EDT Comment:Pre-op diagnosis: Closed fracture of left tibial plateau with routine healing, subsequent encounter [S82.142D] us Bob Nava MD LAB MICROBIOLOGY - GENERAL O RDERABLES Final Result Performing Organization Address City/[facility]/ZIP Co de Phone Number [facility] [address] [place] [address] * AFB Culture, Non Respiratory Source and Acid Fast Stain (01/20/2025 10:27 AM EDT) AFB Culture No Mycobacterial Growth at 6 Weeks 03/04/2025 4:15 PM EDT [facility] Acid Fast Stain No acid fast bacilli seen 03/04/2025 4:[address] [facility] Tissue Structure of left knee region / Unknown 01/20/2025 10:27 AM EDT 01/20/2025 11:24 AM EDT Comment:Pre-op diagnosis: Closed fracture of left tibial plateau with routine healing, subsequent encounter [S82.142D] us Bob Nava MD LAB MICROBIOLOGY - GENERAL O RDERABLES Final Result [facility] [address] [place] [address] * Tissue Culture and Gram Stain (01/20/2025 10:27 AM EDT) Culture No growth at day 4 2024 7:15 AM EDT [facility] Gram Stain Result No organisms seen 01/25/2025 7:15 AM EDT [facility] Gram Stain Result No polymorphonuclear leukocytes seen 01/25/2025 7:15 AM EDT [facility] Tissue Structure of left knee region / Unknown 01/20/2025 10:27 AM EDT 01/20/2025 11:24 AM EDT Comment:Pre-op diagnosis: Closed fracture of left tibial plateau with routine healing, subsequent encounter [S82.142D] Bob Nava MD LAB MICROBIOLOGY - GENERAL O RDERABLES Final Result Performing Organization Address City/[facility] Co de Phone Number [facility] [address] [place] [address] * Anaerobic Culture (01/20/2025 10:27 AM EDT) Culture No growth at day 4 01/28/2025 7:09 AM EDT [facility] Tissue Structure of left knee region / Unknown 01/20/2025 10:27 AM EDT 01/20/2025 11:24 AM EDT Comment:Pre-op diagnosis: Closed fracture of left tibial plateau with routine healing, subsequent encounter [S82.142D] us Bob Nava MD LAB MICROBIOLOGY - GENERAL O RDERABLES Final Result Performing Organization Address [facility] [place] [address] * (ABNORMAL) Creatine Kinase (CK), Total (01/20/2025 3:40 AM EDT) Creatine Kinase, Plasma 18(L) 49 - 320 U/L 01/21/2025 12:17 PM EDT [facility] Blood Venous blood specimen / Unknown Venipuncture / Unknown 01/20/2025 3:40 AM EDT 01/20/2025 3:57 AM EDT Sachin Garza MD LAB BLOOD ORDERABLES Final R esult Performing Organization Address City/[facility] [place] [address] * Vancomycin, random (01/20/2025 3:40 AM EDT) Vancomycin, Random, Plasma 20.1 ug/mL 01/20/2025 4:51 AM EDT [facility] Blood Venous blood specimen / Unknown Venipuncture / Unknown 01/20/2025 3:40 AM EDT 01/20/2025 3:57 AM EDT us Sachin Garza MD LAB BLOOD ORDERABLES Final R esult Performing Organization Address City/[facility] Co de Phone Number [facility] [address] [place] [address] * Protime-INR (01/20/2025 3:40 AM EDT) Prothrombin Time 13.5 12.0 - 14.3 sec LAB COAGULATION METHOD 01/20/2025 4:17 AM EDT [facility] INR 1.0 0.9 - 1.1 LAB COAGULATION METHOD 01/20/2025 4:17 AM EDT [facility] Blood Venous blood specimen / Unknown Venipuncture / Unknown 01/20/2025 3:40 AM EDT 01/20/2025 3:56 AM EDT Narrative [facility] - 01/20/2025 4:17 AM EDT [...] ORDERABLES Final R esult Performing Organization Address City/[facility]/ZIP Co de Phone Number [facility] [address] [place] [address] * (ABNORMAL) Basic metabolic panel (01/20/2025 3:40 AM EDT) Glucose, Plasma 87 74 - 99 mg/dL 01/20/2025 4:51 AM EDT [facility] BUN, Plasma 30(H) 7 - 21 mg/dL 01/20/2025 4:51 AM EDT [facility] Creatinine, Plasma 1.59(H) 0.70 - 1.20 mg/dL 01/20/2025 4:51 AM EDT [facility] BUN/Creatinine Ratio 19 01/20/2025 4:51 AM EDT [facility] Sodium, Plasma 142 136 - 145 mmol/L 01/20/2025 4:51 AM EDT [facility] Potassium, Plasma 4.7 3.6 - 4.9 mmol/L 01/20/2025 4:51 AM EDT [facility] Chloride, Plasma 104 97 - 107 mmol/L 01/20/2025 4:51 AM EDT [facility] CO2, Plasma 26 22 - 29 mmol/L 01/20/2025 4:51 AM EDT [facility] Anion Gap 12 6 - 16 mmol/L 01/20/2025 4:51 AM EDT [facility] Total Calcium, Plasma 8.9 8.9 - 10.2 mg/dL 01/20/2025 4:51 AM EDT [facility] eGFRcr 57.7 mL/min/1.7 3m*2 01/20/2025 4:51 AM EDT [facility] Comment:Reported eGFRcr in m L/min/1.73m2 is based the CKD-EPI 2020 equation that does not use a race coefficient. Blood Venous blood specimen / Unknown Venipuncture / Unknown 01/20/2025 3:40 AM EDT 01/20/2025 3:57 AM EDT us Sachni Garza MD LAB BLOOD ORDERABLES Final R esult [facility] [address] [place] [address] * (ABNORMAL) CBC W/O Differential (01/20/2025 3:40 AM EDT) WBC Count 8.11 3.70 - 10.30 10*3/uL LAB HEMATOLOGY METHOD 01/20/2025 4:04 AM EDT [facility] RBC Count 3.64(L) 4.60 - 6.10 10*6/uL LAB HEMATOLOGY METHOD 01/20/2025 4:04 AM EDT [facility] HGB 10.7(L) 13.7 - 17.5 g/dL LAB HEMATOLOGY METHOD 01/20/2025 4:04 AM EDT [facility] HCT 34.5(L) 40.0 - 51.0 % LAB HEMATOLOGY METHOD 01/20/2025 4:04 AM EDT [facility] Platelet Count 399(H) 155 - 369 10*3/uL LAB HEMATOLOGY METHOD 01/20/2025 4:04 AM EDT [facility] MCV 95 79 - 98 fL LAB HEMATOLOGY METHOD 01/20/2025 4:04 AM EDT [facility] MCH 29.4 26.0 - 32.0 pg LAB HEMATOLOGY METHOD 01/20/2025 4:04 AM EDT [facility] MCHC 31.0 30.7 - 35.5 g/dL LAB HEMATOLOGY METHOD 01/20/2025 4:04 AM EDT [facility] RDW 13.1 11.5 - 14.5 % LAB HEMATOLOGY METHOD 01/20/2025 4:04 AM EDT [facility] MPV 9.5 8.8 - 12.5 fL LAB HEMATOLOGY METHOD 01/20/2025 4:04 AM EDT [facility] nRBC 0.0 <=0.0 per 100 WBCs LAB HEMATOLOGY METHOD 01/20/2025 4:04 AM EDT [facility] Blood Venous blood specimen / Unknown Venipuncture / Unknown 01/20/2025 3:40 AM EDT 01/20/2025 3:56 AM EDT us Sachin Garza MD LAB BLOOD ORDERABLES Final R esult [facility] [address] [place] [address] * Vancomycin, random (01/19/2025 11:48 AM EDT) Vancomycin, Random, Plasma 22.9 ug/mL 01/19/2025 1:05 PM EDT [facility] Blood Venous blood specimen / Unknown Venipuncture / Unknown 01/19/2025 11:48 AM EDT 01/19/2025 11:50 AM EDT us Sachin Garza MD LAB BLOOD ORDERABLES Final R esult [facility] [address] [place] [address] * (ABNORMAL) Basic Metabolic Panel, Plasma (01/18/2025 11:54 PM EDT) Glucose, Plasma 134(H) 74 - 99 mg/dL 01/19/2025 12:45 AM EDT [facility] BUN, Plasma 24(H) 7 - 21 mg/dL 01/19/2025 12:45 AM EDT [facility] Creatinine, Plasma 1.34(H) 0.70 - 1.20 mg/dL 01/19/2025 12:45 AM EDT [facility] BUN/Creatinine Ratio 18 01/19/2025 12:45 AM EDT [facility] Sodium, Plasma 137 136 - 145 mmol/L 01/19/2025 12:45 AM EDT [facility] Potassium, Plasma 4.7 3.6 - 4.9 mmol/L 01/19/2025 12:45 AM EDT [facility] Chloride, Plasma 100 97 - 107 mmol/L 01/19/2025 12:45 AM EDT [facility] CO2, Plasma 24 22 - 29 mmol/L 01/19/2025 12:45 AM EDT [facility] Anion Gap 13 6 - 16 mmol/L 01/19/2025 12:45 AM EDT [facility] Total Calcium, Plasma 9.3 8.9 - 10.2 mg/dL 01/19/2025 12:45 AM EDT [facility] eGFRcr 70.8 mL/min/1.7 3m*2 01/19/2025 12:45 AM EDT [facility] Comment:Reported eGFRcr in m L/min/1.73m2 is based the CKD-EPI 2020 equation that does not use a race coefficient. Blood Venous blood specimen / Unknown Venipuncture / Unknown 01/18/2025 11:54 PM EDT 01/19/2025 12:16 AM EDT us Sachin Garza MD LAB BLOOD ORDERABLES Final R esult [facility] [address] [place] [address] * (ABNORMAL) CBC W/O Differential (01/18/2025 11:54 PM EDT) WBC Count 11.85(H) 3.70 - 10.30 10*3/uL LAB HEMATOLOGY METHOD 01/19/2025 12:20 AM EDT [facility] RBC Count 3.76(L) 4.60 - 6.10 10*6/uL LAB HEMATOLOGY METHOD 01/19/2025 12:20 AM EDT [facility] HGB 11.3(L) 13.7 - 17.5 g/dL LAB HEMATOLOGY METHOD 01/19/2025 12:20 AM EDT [facility] HCT 34.2(L) 40.0 - 51.0 % LAB HEMATOLOGY METHOD 01/19/2025 12:20 AM EDT [facility] Platelet Count 394(H) 155 - 369 10*3/uL LAB HEMATOLOGY METHOD 01/19/2025 12:20 AM EDT [facility] MCV 91 79 - 98 fL LAB HEMATOLOGY METHOD 01/19/2025 12:20 AM EDT [facility] MCH 30.1 26.0 - 32.0 pg LAB HEMATOLOGY METHOD 01/19/2025 12:20 AM EDT [facility] MCHC 33.0 30.7 - 35.5 g/dL LAB HEMATOLOGY METHOD 01/19/2025 12:20 AM EDT [facility] RDW 12.9 11.5 - 14.5 % LAB HEMATOLOGY METHOD 01/19/2025 12:20 AM EDT [facility] MPV 9.5 8.8 - 12.5 fL LAB HEMATOLOGY METHOD 01/19/2025 12:20 AM EDT [facility] nRBC 0.0 <=0.0 per 100 WBCs LAB HEMATOLOGY METHOD 01/19/2025 12:20 AM EDT [facility] Blood Venous blood specimen / Unknown Venipuncture / Unknown 01/18/2025 11:54 PM EDT 01/19/2025 12:13 AM EDT Sachin Garza MD LAB BLOOD ORDERABLES Final R esult Performing Organization Address City/[facility]/ZIP Co de Phone Number [facility] [address] [place] [address] * AFB Culture, Non Respiratory Source and Acid Fast Stain (01/18/2025 3:28 PM EDT) AFB Culture No Mycobacterial Growth at 6 Weeks 03/02/2025 8:42 AM EDT [facility] Acid Fast Stain No acid fast bacilli seen 03/02/2025 8:42 AM EDT [facility] Joint Fluid Topography unknown / Unknown Non-blood Collection / Unknown 01/18/2025 3:28 PM EDT 01/18/2025 3:28 PM EDT Sachin Garza MD LAB MICROBIOLOGY - GENERAL O RDERABLES Final Result Performing Organization Address [facility] Co de Phone Number [facility] [address] [place] [address] * Fungal Culture, Sterile Body Fluid (NOT CSF) and SYEDA (01/18/2025 3:28 PM EDT) Culture No Fungal Growth at 3 Weeks 02/10/2025 8:37 AM EDT [facility] SYEDA No fungal elements seen 02/10/2025 8:37 AM EDT [facility] Joint Fluid Topography unknown / Unknown Non-blood Collection / Unknown 01/18/2025 3:28 PM EDT 01/18/2025 3:28 PM EDT Sachin Garza MD LAB MICROBIOLOGY - GENERAL O RDERABLES Final Result Performing Organization Address City/[facility]/ZIP Co de Phone Number [facility] [address] [place] [address] * Anaerobic Culture (01/18/2025 3:28 PM EDT) Culture No anaerobes isolated 01/23/2025 7:50 AM EDT [facility] Joint Fluid Topography unknown / Unknown Non-blood Collection / Unknown 01/18/2025 3:28 PM EDT 01/18/2025 3:28 PM EDT us Sachin Garza MD LAB MICROBIOLOGY - GENERAL O RDERABLES Final Result Performing Organization Address [facility] Co de Phone Number [facility] [address] [place] [address] * (ABNORMAL) Body Fluid Culture and Gram Stain (01/18/2025 3:28 PM EDT) Culture Heavy Growth 01/20/2025 8:34 AM EDT [facility] Culture Methicillin-Resista nt Staphylococcus aureus(AA) 01/20/2025 8:34 AM EDT [facility] Comment: For susceptibility results refer to: - [id number] The organism value for this result has been updated. These results have been appended to the previously preliminary verified report. Edited result: Previously reported as Staphylococcus aureus on 01/19/2025 at 0933 EDT. Staphylococcus aureus has been updated to reportable. Gram Stain Result Numerous Polymorphonuclear leukocytes 01/20/2025 8:34 AM EDT [facility] Gram Stain Result No organisms seen 01/20/2025 8:34 AM EDT [facility] Joint Fluid Topography unknown / Unknown Non-blood Collection / Unknown 01/18/2025 3:28 PM EDT 01/18/2025 3:28 PM EDT us Sachin Garza MD LAB MICROBIOLOGY - GENERAL O RDERABLES Final Result Performing Organization Address City/[facility]/ZIP Co de Phone Number [facility] [address] [place] [address] * Body fluid, cytospin, pathologist interpretation (01/18/2025 3:01 PM EDT) Specimen Type Joint Fluid LAB HEMATOLOGY METHOD 01/20/2025 4:29 PM EDT [facility] Specimen Source, Body Fluid Knee, Left LAB HEMATOLOGY METHOD 01/20/2025 4:29 PM EDT [facility] Clinical Diagnosis, Body Fluid Left lower extremity cellulitis LAB HEMATOLOGY METHOD 01/20/2025 4:29 PM EDT [facility] Interpretation , Body Fluid Bloody specimen Acute and chronic inflammatory cells Correlation with microbiology studies recommended A resident was involved in the service. I attest I examined the relevant preparations for the specimens and confirmed the diagnosis or interpretation. 01/20/2025 4:29 PM EDT [facility] Pathologist Signature, Body Fluid 01/20/2025 4:29 PM EDT [facility] Comment:Reviewed by: Stephanie conti MD LAB CP ASR DISCLAIMER Yes 01/20/2025 4:29 PM EDT [facility] Joint Fluid Structure of left knee region / Unknown 01/18/2025 3:01 PM EDT 01/18/2025 3:28 PM EDT us Sachin Garza MD LAB BODY FLUIDS AND STOOLS O RDERABLES Final Result Performing Organization Address City/[facility]/ZIP Co de Phone Number [facility] [address] [place] [address] * Joint Fluid Crystals (01/18/2025 3:01 PM EDT) Crystals, Joint Fluid No Crystals Seen No Crystals Present 01/18/2025 5:28 PM EDT [facility] Joint Fluid Structure of left knee region / Unknown 01/18/2025 3:01 PM EDT 01/18/2025 3:28 PM EDT us Sachin Garza MD LAB BODY FLUIDS AND STOOLS O RDERABLES Final Result Performing Organization Address City/[facility]/ZIP Co de Phone Number [facility] [address] [place] [address] * (ABNORMAL) Body Fluid Cell Count w/ Diff (01/18/2025 3:01 PM EDT) Color, Body fluid Red LAB HEMATOLOGY METHOD 01/18/2025 11:05 PM EDT [facility] Appearance, Body fluid Cloudy(A) LAB HEMATOLOGY METHOD 01/18/2025 11:05 PM EDT [facility] Volume, Body fluid 3.5 cc LAB HEMATOLOGY METHOD 01/18/2025 11:05 PM EDT [facility] Fluid Container Specimen received in EDTA tube LAB HEMATOLOGY METHOD 01/18/2025 11:05 PM EDT [facility] Red Blood Cell Count, Body fluid 299,000 uL LAB HEMATOLOGY METHOD 01/18/2025 11:05 PM EDT [facility] Total Nucleated Cell Count, Body fluid 873 uL LAB HEMATOLOGY METHOD 01/18/2025 11:05 PM EDT [facility] Neutrophils %, Body fluid 17 % LAB HEMATOLOGY METHOD 01/18/2025 11:05 PM EDT [facility] Lymphocytes %, Body fluid 55 % LAB HEMATOLOGY METHOD 01/18/2025 11:05 PM EDT [facility] Monocytes/Macro phages %, Body fluid 27 % LAB HEMATOLOGY METHOD 01/18/2025 11:05 PM EDT [facility] Eosinophils %, Body fluid 1 % LAB HEMATOLOGY METHOD 01/18/2025 11:05 PM EDT [facility] Lining/Mesothel ial Cells %, Body fluid 0 % LAB HEMATOLOGY METHOD 01/18/2025 11:05 PM EDT [facility] Neutrophils Absolute (PMN), Body fluid 148 uL LAB HEMATOLOGY METHOD 01/18/2025 11:05 PM EDT [facility] Lymphocytes Absolute, Body fluid 480 uL LAB HEMATOLOGY METHOD 01/18/2025 11:05 PM EDT [facility] Monocytes/Macro phages Absolute, Body fluid 236 uL LAB HEMATOLOGY METHOD 01/18/2025 11:05 PM EDT [facility] Eosinophils Absolute, Body fluid 9 uL LAB HEMATOLOGY METHOD 01/18/2025 11:05 PM EDT [facility] Basophils Absolute, Body fluid 0 uL LAB HEMATOLOGY METHOD 01/18/2025 11:05 PM EDT [facility] Lining/Mesothel ial Cells Absolute, Body fluid 0 uL LAB HEMATOLOGY METHOD 01/18/2025 11:05 PM EDT [facility] Comment, Body fluid None LAB HEMATOLOGY METHOD 01/18/2025 11:05 PM EDT [facility] Comment:This is an appended report. These results have been appended to a previously preliminary verified report. Basophils %, Body fluid 0 % LAB HEMATOLOGY METHOD 01/18/2025 11:05 PM EDT [facility] Joint Fluid Structure of left knee region / Unknown 01/18/2025 3:01 PM EDT 01/18/2025 3:28 PM EDT Sachin Garza MD LAB BODY FLUIDS AND STOOLS ORDERABLES NO SPECIMEN TYPE/SOURCE Final Result Performing Organization Address [facility] Co de Phone Number [facility] [address] [place] [address] * Body Fluid Culture and Gram Stain (01/18/2025 12:17 PM EDT) Culture No growth at day 4 2024 11:06 AM EDT [facility] Gram Stain Result No polymorphonuclear leukocytes seen 01/21/2025 11:06 AM EDT [facility] Gram Stain Result No organisms seen 01/21/2025 11:[address] [facility] Joint Fluid Synovial fluid specimen / Unknown Non-blood Collection / Unknown 01/18/2025 12:17 PM EDT 01/18/2025 3:24 PM EDT Comment:Pre-op diagnosis: Cellulitis of left lower extremity [L03.116] Dwaine Das DO LAB MICROBIOLOGY - GENERAL ORDERABLES Final Result Performing Organization Address [facility] Co de Phone Number [facility] [address] [place] [address] * Joint Infection Panel by PCR (01/18/2025 12:17 PM EDT) Anaerococcus prevotii/vaginalis PCR Result Not Detected Not Detected 01/18/2025 5:28 PM EDT [facility] Clostridium perfringens PCR Result Not Detected Not Detected 01/18/2025 5:28 PM EDT [facility] Cutibacterium avidum/granulosum PCR Result Not Detected Not Detected 01/18/2025 5:28 PM EDT [facility] Enterococcus faecalis PCR Result Not Detected Not Detected 01/18/2025 5:28 PM EDT [facility] Enterococcus faecium PCR Result Not Detected Not Detected 01/18/2025 5:28 PM EDT [facility] Finegoldia magna PCR Result Not Detected Not Detected 01/18/2025 5:28 PM EDT [facility] Parvimonas micra PCR Result Not Detected Not Detected 01/18/2025 5:28 PM EDT [facility] Peptoniphilus PCR Result Not Detected Not Detected 01/18/2025 5:28 PM EDT [facility] Peptostreptococcus anaerobius PCR Result Not Detected Not Detected 01/18/2025 5:28 PM EDT [facility] Staphylococcus aureus PCR Result Not Detected Not Detected 01/18/2025 5:28 PM EDT [facility] Staphylococcus lugdunensis PCR Result Not Detected Not Detected 01/18/2025 5:28 PM EDT [facility] Streptococcus spp PCR Result Not Detected Not Detected 01/18/2025 5:28 PM EDT [facility] Streptococcus agalactiae PCR Result Not Detected Not Detected 01/18/2025 5:28 PM EDT [facility] Streptococcus pneumoniae PCR Result Not Detected Not Detected 01/18/2025 5:28 PM EDT [facility] Streptococcus pyogenes PCR Result Not Detected Not Detected 01/18/2025 5:28 PM EDT [facility] Bacteroides fragilis PCR Result Not Detected Not Detected 01/18/2025 5:28 PM EDT [facility] Citrobacter PCR Result Not Detected Not Detected 01/18/2025 5:28 PM EDT [facility] Enterobacter cloacae complex PCR Result Not Detected Not Detected 01/18/2025 5:28 PM EDT [facility] Escherichia coli PCR Result Not Detected Not Detected 01/18/2025 5:28 PM EDT [facility] Haemophilus influenzae PCR Result Not Detected Not Detected 01/18/2025 5:28 PM EDT [facility] Kingella kingae PCR Result Not Detected Not Detected 01/18/2025 5:28 PM EDT [facility] Klebsiella aerogenes PCR Result Not Detected Not Detected 01/18/2025 5:28 PM EDT [facility] Klebsiella pneumoniae group PCR Result Not Detected Not Detected 01/18/2025 5:28 PM EDT [facility] Morganella morganii PCR Result Not Detected Not Detected 01/18/2025 5:28 PM EDT [facility] Neisseria gonorrhoeae PCR Result Not Detected Not Detected 01/18/2025 5:28 PM EDT [facility] Proteus spp PCR Result Not Detected Not Detected 01/18/2025 5:28 PM EDT [facility] Pseudomonas aeruginosa PCR Result Not Detected Not Detected 01/18/2025 5:28 PM EDT [facility] Salmonella spp PCR Result Not Detected Not Detected 01/18/2025 5:28 PM EDT [facility] Serratia marcescens PCR Result Not Detected Not Detected 01/18/2025 5:28 PM EDT [facility] Nelda PCR Result Not Detected Not Detected 01/18/2025 5:28 PM EDT [facility] Nelda albicans PCR Result Not Detected Not Detected 01/18/2025 5:28 PM EDT [facility] CTXM PCR Result Not Detected Not Detected 01/18/2025 5:28 PM EDT [facility] IMP PCR Result Not Detected Not Detected 01/18/2025 5:28 PM EDT [facility] KPC PCR Result Not Detected Not Detected 01/18/2025 5:28 PM EDT [facility] mecA/C and MREJ (MRSA) PCR Result Not Detected Not Detected 01/18/2025 5:28 PM EDT [facility] NDM PCR Result Not Detected Not Detected 01/18/2025 5:28 PM EDT [facility] OXA-48-like PCR Result Not Detected Not Detected 01/18/2025 5:28 PM EDT [facility] Jarret/B PCR Result Not Detected Not Detected 01/18/2025 5:28 PM EDT [facility] VIM PCR Result Not Detected Not Detected 01/18/2025 5:28 PM EDT [facility] Joint Fluid Synovial fluid specimen / Unknown Non-blood Collection / Unknown 01/18/2025 12:17 PM EDT 01/18/2025 3:24 PM EDT Narrative [facility] - 01/18/2025 5:28 PM EDT [...] MICROBIOLOGY - GENERAL O RDERABLES Final Result [facility] [address] [place] [address] * Fungal Culture, Tissue and SYEDA (01/18/2025 10:00 AM EDT) Culture Reading Mycological 4 Weeks No Fungal Growth at 4 Weeks 02/16/2025 8:50 AM EDT [facility] SYEDA No fungal elements seen 02/16/2025 8:50 AM EDT [facility] Tissue Topography unknown / Unknown 01/18/2025 10:00 AM EDT 01/18/2025 3:26 PM EDT Comment:Pre-op diagnosis: Cellulitis of left lower extremity [L03.116] [facility] - GENERAL ORDERABLES Final Result Performing Organization Address City/[facility] Co de Phone Number [facility] [address] [place] [address] * AFB Culture, Non Respiratory Source and Acid Fast Stain (01/18/2025 10:00 AM EDT) AFB Culture No Mycobacterial Growth at 6 Weeks 03/02/2025 8:38 AM EDT [facility] Acid Fast Stain No acid fast bacilli seen 03/02/2025 8:38 AM EDT [facility] Tissue Topography unknown / Unknown 01/18/2025 10:00 AM EDT 01/18/2025 3:26 PM EDT Comment:Pre-op diagnosis: Cellulitis of left lower extremity [L03.116] [facility] - GENERAL ORDERABLES Final Result Performing Organization Address [facility] de Phone Number [facility] [address] [place] [address] * (ABNORMAL) Tissue Culture and Gram Stain (01/18/2025 10:00 AM EDT) Culture Heavy Growth 01/20/2025 8:34 AM EDT [facility] Culture Methicillin-Resista nt Staphylococcus aureus(AA) JOVANI 01/20/2025 8:34 AM EDT [facility] Comment: The organism value for this result has been updated. These results have been appended to the previously preliminary verified report. Edited result: Previously reported as Staphylococcus aureus on 01/19/2025 at 0914 EDT. Staphylococcus aureus has been updated to reportable. Gram Stain Result Numerous Polymorphonuclear leukocytes(A) 01/20/2025 8:34 AM EDT [facility] Gram Stain Result Rare Gram positive cocci in clusters(A) 01/20/2025 8:34 AM EDT [facility] Tissue Topography unknown / Unknown [...] Staphylococcus aureus Vancomycin JOVANI 1 ug/ml: Susceptible [facility] MICROBIOLOGY - GENERAL ORDERABLES Final Result [facility] [address] [place] [address] * Anaerobic Culture (01/18/2025 10:00 AM EDT) Culture No anaerobes isolated 01/23/2025 7:50 AM EDT [facility] Tissue Topography unknown / Unknown 01/18/2025 10:00 AM EDT 01/18/2025 3:26 PM EDT Comment:Pre-op diagnosis: Cellulitis of left lower extremity [L03.116] [facility] MICROBIOLOGY - GENERAL ORDERABLES Final Result [facility] [address] [place] [address] * Body fluid, cytospin, pathologist interpretation (01/18/2025 9:57 AM EDT) Specimen Type Cyst Fluid LAB HEMATOLOGY METHOD 01/20/2025 4:28 PM EDT [facility] Specimen Source, Body Fluid Other (specify site) LAB HEMATOLOGY METHOD 01/20/2025 4:28 PM EDT [facility] Clinical Diagnosis, Body Fluid Left lower extremity cyst fluid LAB HEMATOLOGY METHOD 01/20/2025 4:28 PM EDT [facility] Interpretation , Body Fluid No evidence of malignancy Bloody specimen Acute inflammatory cells Correlation with microbiology studies recommended A resident was involved in the service. I attest I examined the relevant preparations for the specimens and confirmed the diagnosis or interpretation. 01/20/2025 4:28 PM EDT [facility] Pathologist Signature, Body Fluid 01/20/2025 4:28 PM EDT [facility] Comment:Reviewed by: Stephanie conti MD LAB CP ASR DISCLAIMER Yes 01/20/2025 4:28 PM EDT [facility] Cyst Fluid Topography unknown / Unknown 01/18/2025 9:57 AM EDT 01/18/2025 3:19 PM EDT Dwaine Das DO LAB BODY FLUIDS AND STOOLS ORDERABLES Final Result [facility] [address] [place] [address] * (ABNORMAL) Body Fluid Cell Count w/ Diff (01/18/2025 9:57 AM EDT) Color, Body fluid Red LAB HEMATOLOGY METHOD 01/18/2025 7:13 PM EDT [facility] Appearance, Body fluid Cloudy(A) LAB HEMATOLOGY METHOD 01/18/2025 7:13 PM EDT [facility] Volume, Body fluid 10.0 cc LAB HEMATOLOGY METHOD 01/18/2025 7:13 PM EDT [facility] Fluid Container Specimen received in miscellaneous container LAB HEMATOLOGY METHOD 01/18/2025 7:13 PM EDT [facility] Red Blood Cell Count, Body fluid 240,000 uL LAB HEMATOLOGY METHOD 01/18/2025 7:13 PM EDT [facility] Comment:Clot present, may af fect results. Test performed by manual method. Total Nucleated Cell Count, Body fluid 83,500 uL LAB HEMATOLOGY METHOD 01/18/2025 7:13 PM EDT [facility] Comment:Clot present, may af fect results. Test performed by manual method. Neutrophils %, Body fluid 98 % LAB HEMATOLOGY METHOD 01/18/2025 7:13 PM EDT [facility] Lymphocytes %, Body fluid 2 % LAB HEMATOLOGY METHOD 01/18/2025 7:13 PM EDT [facility] Monocytes/Macr ophages %, Body fluid 0 % LAB HEMATOLOGY METHOD 01/18/2025 7:13 PM EDT [facility] Eosinophils %, Body fluid 0 % LAB HEMATOLOGY METHOD 01/18/2025 7:13 PM EDT [facility] Lining/Mesothe lial Cells %, Body fluid 0 % LAB HEMATOLOGY METHOD 01/18/2025 7:13 PM EDT [facility] Neutrophils Absolute (PMN), Body fluid 81,830 uL LAB HEMATOLOGY METHOD 01/18/2025 7:13 PM EDT [facility] Lymphocytes Absolute, Body fluid 1,670 uL LAB HEMATOLOGY METHOD 01/18/2025 7:13 PM EDT [facility] Monocytes/Macr ophages Absolute, Body fluid 0 uL LAB HEMATOLOGY METHOD 01/18/2025 7:13 PM EDT [facility] Eosinophils Absolute, Body fluid 0 uL LAB HEMATOLOGY METHOD 01/18/2025 7:13 PM EDT [facility] Basophils Absolute, Body fluid 0 uL LAB HEMATOLOGY METHOD 01/18/2025 7:13 PM EDT [facility] Lining/Mesothe lial Cells Absolute, Body fluid 0 uL LAB HEMATOLOGY METHOD 01/18/2025 7:13 PM EDT [facility] Comment, Body fluid Bacteria seen. LAB HEMATOLOGY METHOD 01/18/2025 7:13 PM EDT [facility] Basophils %, Body fluid 0 % LAB HEMATOLOGY METHOD 01/18/2025 7:13 PM EDT [facility] Cyst Fluid Topography unknown / Unknown 01/18/2025 9:57 AM EDT 01/18/2025 3:19 PM EDT Comment:Pre-op diagnosis: Cellulitis of left lower extremity [L03.116] Dwaine Das DO LAB BODY FLUIDS AND STOOLS ORDERABLES NO SPECIMEN TYPE/SOURCE Final Result [facility] [address] [place] [address] * Fungal Culture, Sterile Body Fluid (NOT CSF) and SYEDA (01/18/2025 9:57 AM EDT) Culture No Fungal Growth at 3 Weeks 02/10/2025 8:37 AM EDT [facility] SYEDA No fungal elements seen 02/10/2025 8:37 AM EDT [facility] Cyst Fluid Topography unknown / Unknown 01/18/2025 9:57 AM EDT 01/18/2025 3:26 PM EDT Comment:Pre-op diagnosis: Cellulitis of left lower extremity [L03.116] [facility] MICROBIOLOGY - GENERAL ORDERABLES Final Result Performing Organization Address City/[facility]/ZIP Co de Phone Number [facility] [address] [place] [address] * AFB Culture, Non Respiratory Source and Acid Fast Stain (01/18/2025 9:57 AM EDT) AFB Culture No Mycobacterial Growth at 6 Weeks 03/02/2025 8:43 AM EDT [facility] Acid Fast Stain No acid fast bacilli seen 03/02/2025 8:43 AM EDT [facility] Cyst Fluid Topography unknown / Unknown 01/18/2025 9:57 AM EDT 01/18/2025 3:26 PM EDT Comment:Pre-op diagnosis: Cellulitis of left lower extremity [L03.116] [facility] MICROBIOLOGY - GENERAL ORDERABLES Final Result [facility] [address] [place] [address] * (ABNORMAL) Body Fluid Culture and Gram Stain (01/18/2025 9:57 AM EDT) Culture Heavy Growth 01/20/2025 8:34 AM EDT [facility] Culture Methicillin-Resista nt Staphylococcus aureus(AA) 01/20/2025 8:34 AM EDT [facility] Comment: For susceptibility results refer to: - [id number] The organism value for this result has been updated. These results have been appended to the previously preliminary verified report. Edited result: Previously reported as Staphylococcus aureus on 01/19/2025 at 0916 EDT. Staphylococcus aureus has been updated to reportable. Gram Stain Result Numerous Polymorphonuclear leukocytes(A) 01/20/2025 8:34 AM EDT [facility] Gram Stain Result Moderate Gram positive cocci in clusters(A) 01/20/2025 8:34 AM EDT [facility] Cyst Fluid Topography unknown / Unknown 01/18/2025 9:57 AM EDT 01/18/2025 3:26 PM EDT Comment:Pre-op diagnosis: Cellulitis of left lower extremity [L03.116] [facility] LAB MICROBIOLOGY - GENERAL ORDERABLES Final Result Performing Organization Address [facility] Co de Phone Number [facility] [address] [place] [address] * Anaerobic Culture (01/18/2025 9:57 AM EDT) Culture No anaerobes isolated 01/23/2025 7:[address] [facility] Cyst Fluid Topography unknown / Unknown 01/18/2025 9:57 AM EDT 01/18/2025 3:26 PM EDT Comment:Pre-op diagnosis: Cellulitis of left lower extremity [L03.116] [facility] LAB MICROBIOLOGY - GENERAL ORDERABLES Final Result Performing Organization Address City/[facility]/ZIP Co de Phone Number [facility] [address] [place] [address] * Methicillin Resistant Staphylococcus aureus (MRSA) by PCR (01/18/2025 7:43 AM EDT) Methicillin Resistant Staphylococcus aureus (MRSA) by PCR Not Detected Not Detected 01/18/2025 9:36 AM EDT [facility] Swab Both anterior nares / Unknown Non-blood Collection / Unknown 01/18/2025 7:43 AM EDT 01/18/2025 8:19 AM EDT Narrative [facility] - 01/18/2025 9:36 AM EDT [...] MICROBIOLOGY - GENERAL O RDERABLES Final Result [facility] [address] [place] [address] * (ABNORMAL) Basic metabolic panel (01/18/2025 12:18 AM EDT) Glucose, Plasma 105(H) 74 - 99 mg/dL 01/18/2025 1:30 AM EDT [facility] BUN, Plasma 14 7 - 21 mg/dL 01/18/2025 1:30 AM EDT [facility] Creatinine, Plasma 0.80 0.70 - 1.20 mg/dL 01/18/2025 1:30 AM EDT [facility] BUN/Creatinine Ratio 18 01/18/2025 1:30 AM EDT [facility] Sodium, Plasma 137 136 - 145 mmol/L 01/18/2025 1:30 AM EDT [facility] Potassium, Plasma 4.3 3.6 - 4.9 mmol/L 01/18/2025 1:30 AM EDT [facility] Chloride, Plasma 100 97 - 107 mmol/L 01/18/2025 1:30 AM EDT [facility] CO2, Plasma 26 22 - 29 mmol/L 01/18/2025 1:30 AM EDT [facility] Anion Gap 11 6 - 16 mmol/L 01/18/2025 1:30 AM EDT [facility] Total Calcium, Plasma 9.0 8.9 - 10.2 mg/dL 01/18/2025 1:30 AM EDT [facility] eGFRcr 118.4 mL/min/1.7 3m*2 01/18/2025 1:30 AM EDT [facility] Comment:Reported eGFRcr in m L/min/1.73m2 is based the CKD-EPI 2020 equation that does not use a race coefficient. Blood Venous blood specimen / Unknown Venipuncture / Unknown 01/18/2025 12:18 AM EDT 01/18/2025 12:27 AM EDT us Sachin Garza MD LAB BLOOD ORDERABLES Final R esult [facility] [address] [place] [address] * (ABNORMAL) CBC W/O Differential (01/18/2025 12:18 AM EDT) WBC Count 8.77 3.70 - 10.30 10*3/uL LAB HEMATOLOGY METHOD 01/18/2025 12:36 AM EDT [facility] RBC Count 3.94(L) 4.60 - 6.10 10*6/uL LAB HEMATOLOGY METHOD 01/18/2025 12:36 AM EDT [facility] HGB 11.7(L) 13.7 - 17.5 g/dL LAB HEMATOLOGY METHOD 01/18/2025 12:36 AM EDT [facility] HCT 37.1(L) 40.0 - 51.0 % LAB HEMATOLOGY METHOD 01/18/2025 12:36 AM EDT [facility] Platelet Count 347 155 - 369 10*3/uL LAB HEMATOLOGY METHOD 01/18/2025 12:36 AM EDT [facility] MCV 94 79 - 98 fL LAB HEMATOLOGY METHOD 01/18/2025 12:36 AM EDT [facility] MCH 29.7 26.0 - 32.0 pg LAB HEMATOLOGY METHOD 01/18/2025 12:36 AM EDT [facility] MCHC 31.5 30.7 - 35.5 g/dL LAB HEMATOLOGY METHOD 01/18/2025 12:36 AM EDT [facility] RDW 13.1 11.5 - 14.5 % LAB HEMATOLOGY METHOD 01/18/2025 12:36 AM EDT [facility] MPV 9.5 8.8 - 12.5 fL LAB HEMATOLOGY METHOD 01/18/2025 12:36 AM EDT [facility] nRBC 0.0 <=0.0 per 100 WBCs LAB HEMATOLOGY METHOD 01/18/2025 12:36 AM EDT [facility] Blood Venous blood specimen / Unknown Venipuncture / Unknown 01/18/2025 12:18 AM EDT 01/18/2025 12:29 AM EDT Sachin Garza MD LAB BLOOD ORDERABLES Final R esult Performing Organization Address [facility] Co de Phone Number [facility] [address] [place] [address] * Vancomycin, Peak, Plasma Please draw ~2 hours after 1000 dose of vancomycin on Monday finishes infusing. Consider obtaining level via peripheral stick. If peripheral stick is not feasible, please ensure that line is flushed well prior to drawing l... (01/17/2025 2:03 PM EDT) Vancomycin, Peak, Plasma 22.0 20.0 - 40.0 ug/mL 01/17/2025 3:01 PM EDT [facility] Blood Venous blood specimen / Unknown Venipuncture / Unknown 01/17/2025 2:03 PM EDT 01/17/2025 2:32 PM EDT Narrative [facility] - 01/17/2025 3:01 PM EDT Therapeutic Peak level: 20-40ug/mL Supra-therapeutic Peak level: >40 ug/mL Sachin Garza MD LAB BLOOD ORDERABLES Final R esult Performing Organization Address [facility] Co de Phone Number [facility] [address] [place] [address] * Vancomycin, Trough, Plasma Please draw ~30 minutes prior to dose due at 1000 on Monday. Please do NOT hold dose awaiting level to return. Consider obtaining level via peripheral stick. If peripheral stick is not feasible, please ensure that line ... (01/17/2025 9:53 AM EDT) Vancomycin, Trough, Plasma 12.5 10.0 - 20.0 ug/mL 01/17/2025 10:24 AM EDT [facility] Blood Venous blood specimen / Unknown Venipuncture / Unknown 01/17/2025 9:53 AM EDT 01/17/2025 9:57 AM EDT Narrative [facility] - 01/17/2025 10:24 AM EDT Therapeutic Trough level: 10-20ug/mL Supra-therapeutic Trough level: >20 ug/mL us Sachin Garza MD LAB BLOOD ORDERABLES Final R esult [facility] [address] [place] [address] * (ABNORMAL) Basic metabolic panel (01/17/2025 4:05 AM EDT) Glucose, Plasma 117(H) 74 - 99 mg/dL 01/17/2025 5:16 AM EDT [facility] BUN, Plasma 13 7 - 21 mg/dL 01/17/2025 5:16 AM EDT [facility] Creatinine, Plasma 0.75 0.70 - 1.20 mg/dL 01/17/2025 5:16 AM EDT [facility] BUN/Creatinine Ratio 17 01/17/2025 5:16 AM EDT [facility] Sodium, Plasma 135(L) 136 - 145 mmol/L 01/17/2025 5:16 AM EDT [facility] Potassium, Plasma 4.5 3.6 - 4.9 mmol/L 01/17/2025 5:16 AM EDT [facility] Chloride, Plasma 100 97 - 107 mmol/L 01/17/2025 5:16 AM EDT [facility] CO2, Plasma 25 22 - 29 mmol/L 01/17/2025 5:16 AM EDT [facility] Anion Gap 10 6 - 16 mmol/L 01/17/2025 5:16 AM EDT [facility] Total Calcium, Plasma 9.1 8.9 - 10.2 mg/dL 01/17/2025 5:16 AM EDT [facility] eGFRcr 120.7 mL/min/1.7 3m*2 01/17/2025 5:16 AM EDT [facility] Comment:Reported eGFRcr in m L/min/1.73m2 is based the CKD-EPI 2020 equation that does not use a race coefficient. Blood Venous blood specimen / Unknown Venipuncture / Unknown 01/17/2025 4:05 AM EDT 01/17/2025 4:35 AM EDT us Sachin Garza MD LAB BLOOD ORDERABLES Final R esult [facility] [address] [place] [address] * [place] Extremity Limited MSK or Soft [...] - 99 mg/dL 01/16/2025 5:15 AM EDT [facility] BUN, Plasma 12 7 - 21 mg/dL 01/16/2025 5:15 AM EDT [facility] Creatinine, Plasma 0.66(L) 0.70 - 1.20 mg/dL 01/16/2025 5:15 AM EDT [facility] BUN/Creatinine Ratio 18 01/16/2025 5:15 AM EDT [facility] Sodium, Plasma 136 136 - 145 mmol/L 01/16/2025 5:15 AM EDT [facility] Potassium, Plasma 4.5 3.6 - 4.9 mmol/L 01/16/2025 5:15 AM EDT [facility] Chloride, Plasma 100 97 - 107 mmol/L 01/16/2025 5:15 AM EDT [facility] CO2, Plasma 26 22 - 29 mmol/L 01/16/2025 5:15 AM EDT [facility] Anion Gap 10 6 - 16 mmol/L 01/16/2025 5:15 AM EDT [facility] Total Calcium, Plasma 8.8(L) 8.9 - 10.2 mg/dL 01/16/2025 5:15 AM EDT [facility] eGFRcr 125.4 mL/min/1.7 3m*2 01/16/2025 5:15 AM EDT [facility] Comment:Reported eGFRcr in m L/min/1.73m2 is based the CKD-EPI 2020 equation that does not use a race coefficient. Blood Venous blood specimen / Unknown Venipuncture / Unknown 01/16/2025 4:31 AM EDT 01/16/2025 4:46 AM EDT us Jeffrey Matute MD LAB BLOOD ORDERABLES Final Re sult Performing Organization Address City/State/[facility] Co de Phone Number [facility] [address] [place] [address] * Prothrombin Time/INR (01/16/2025 4:31 AM EDT) Prothrombin Time 12.9 12.0 - 14.3 sec 01/16/2025 4:46 AM EDT [facility] INR 1.0 0.9 - 1.1 01/16/2025 4:46 AM EDT [facility] Blood Venous blood specimen / Unknown Venipuncture / Unknown 01/16/2025 4:31 AM EDT 01/16/2025 4:33 AM EDT Narrative [facility] - 01/16/2025 4:46 AM EDT [...] MD LAB BLOOD ORDERABLES Final Re sult [facility] [address] [place] [address] * (ABNORMAL) CBC W/O Differential (01/16/2025 4:31 AM EDT) WBC Count 17.78(H) 3.70 - 10.30 10*3/uL LAB HEMATOLOGY METHOD 01/16/2025 4:36 AM EDT [facility] RBC Count 4.14(L) 4.60 - 6.10 10*6/uL LAB HEMATOLOGY METHOD 01/16/2025 4:36 AM EDT [facility] HGB 12.4(L) 13.7 - 17.5 g/dL LAB HEMATOLOGY METHOD 01/16/2025 4:36 AM EDT [facility] HCT 37.6(L) 40.0 - 51.0 % LAB HEMATOLOGY METHOD 01/16/2025 4:36 AM EDT [facility] Platelet Count 359 155 - 369 10*3/uL LAB HEMATOLOGY METHOD 01/16/2025 4:36 AM EDT [facility] MCV 91 79 - 98 fL LAB HEMATOLOGY METHOD 01/16/2025 4:36 AM EDT [facility] MCH 30.0 26.0 - 32.0 pg LAB HEMATOLOGY METHOD 01/16/2025 4:36 AM EDT [facility] MCHC 33.0 30.7 - 35.5 g/dL LAB HEMATOLOGY METHOD 01/16/2025 4:36 AM EDT [facility] RDW 13.2 11.5 - 14.5 % LAB HEMATOLOGY METHOD 01/16/2025 4:36 AM EDT [facility] MPV 9.3 8.8 - 12.5 fL LAB HEMATOLOGY METHOD 01/16/2025 4:36 AM EDT [facility] nRBC 0.0 <=0.0 per 100 WBCs LAB HEMATOLOGY METHOD 01/16/2025 4:36 AM EDT [facility] Blood Venous blood specimen / Unknown Venipuncture / Unknown 01/16/2025 4:31 AM EDT 01/16/2025 4:33 AM EDT Jeffrey Matute MD LAB BLOOD ORDERABLES Final Re sult [facility] [address] [place] [address] * CT Tibia Fibula Left w IV [...] at day 5 01/21/2025 2:02 AM EDT [facility] Blood Venous blood specimen / Unknown Venipuncture / Unknown 01/16/2025 12:24 AM EDT 01/16/2025 1:12 AM EDT Narrative [facility] - 01/21/2025 2:02 AM EDT Low blood volume submitted, results may be compromised Gus Vigil APRN LAB MICROBIOLOGY - GENER AL ORDERABLES Final Result [facility] [address] [place] [address] * XR Chest 1 View (01/15/2025 11:21 [...] APRN IMG XR PROCEDURES Final Result * Type [...] ORDERA BLES Final Result Performing Organization Address [facility] Co de Phone Number BLOOD BANK [address] [place] [address], [place] * ECG Adult (01/15/2025 10:46 PM EDT) EKG DIAGNOSIS CLASS Normal MUSE ECG Ventricular Rate 92 BPM MUSE ECG Atrial Rate 92 BPM MUSE ECG UT Interval 122 ms MUSE ECG QRSD Interval 102 ms MUSE ECG QT Interval 350 ms MUSE ECG QTC Interval 432 ms MUSE ECG P Dulzura 56 degrees MUSE ECG R Dulzura 44 degrees MUSE ECG T Wave Dulzura 57 degrees MUSE ECG Diagnosis Normal sinus rhythm MUSE ECG Diagnosis Normal ECG MUSE ECG Diagnosis MUSE ECG Diagnosis Confirmed by Richard Mccracken ([id number]) on 01/16/2025 8:55:10 PM MUSE ECG 01/15/2025 10:4 6 PM EDT 01/16/2025 8:55 PM EDT Ye Navarro MD ECG ORDERABLES Final Resu lt Performing Organization Address City/[facility] Co de Phone Number MUSE ECG * Blood Culture (Aerobic/Anaerobet Set) (01/15/2025 10:11 PM EDT) Culture No growth at day 5 01/20/2025 11:01 PM EDT [facility] Blood Structure of antecubital vein / Unknown Venipuncture / Unknown 01/15/2025 10:11 PM EDT 01/15/2025 10:19 PM EDT Narrative [facility] - 01/20/2025 11:01 PM EDT Low blood volume submitted, results may be compromised Gus Vigil APRN LAB MICROBIOLOGY - GENER AL ORDERABLES Final Result Performing Organization Address City/[facility]/ZIP Co de Phone Number [facility] [address] [place] [address] * (ABNORMAL) Sed rate, automated (01/15/2025 10:11 PM EDT) Pathologist [facility] Sedimentation Rate 46(H) <15 mm/hr 2024 10:34 PM EDT [facility] Blood Venous blood specimen / Unknown Venipuncture / Unknown 01/15/2025 10:11 PM EDT 01/15/2025 10:12 PM EDT [facility] [place] Niall [employer] LAB BLOOD ORDERABLES Fin al Result Performing Organization Address [facility] Co de Phone Number [facility] [address] [place] [address] * (ABNORMAL) C-Reactive protein (01/15/2025 10:11 PM EDT) [facility] CRP, Plasma 91.9(H) <=8.0 mg/L 01/15/2025 10:32 PM EDT [facility] Blood Venous blood specimen / Unknown Venipuncture / Unknown 01/15/2025 10:11 PM EDT 01/15/2025 10:12 PM EDT Narrative [facility] - 01/15/2025 10:32 PM EDT This CRP test is appropriate for assessment of infection, systemic inflammation and/or tissue injury. To assess cardiovascular disease risk order high sensitivity CRP (CRPH). [facility] [place] [employer] LAB BLOOD ORDERABLES Fin al Result Performing Organization Address City/[facility]/ZIP Co de Phone Number [facility] [address] [place] [address] * (ABNORMAL) Blood gas panel, venous (01/15/2025 10:11 PM EDT) pH, Venous 7.39 7.32 - 7.43 LAB HEMATOLOGY METHOD 01/15/2025 10:14 PM EDT [facility] pCO2, Venous 47 40 - 55 mmHg LAB HEMATOLOGY METHOD 01/15/2025 10:14 PM EDT [facility] pO2, Venous 34 25 - 40 mmHg LAB HEMATOLOGY METHOD 01/15/2025 10:14 PM EDT [facility] SO2, Measured, Venous 68 65 - 80 % LAB HEMATOLOGY METHOD 01/15/2025 10:14 PM EDT [facility] Base Excess, Venous 2.8 -2.0 - 3.0 mmol/L LAB HEMATOLOGY METHOD 01/15/2025 10:14 PM EDT [facility] Bicarbonate, Calculated, Venous 29(H) 22 - 26 mmol/L LAB HEMATOLOGY METHOD 01/15/2025 10:14 PM EDT [facility] Hematocrit, Whole Blood 40.4 40.0 - 51.0 % LAB HEMATOLOGY METHOD 01/15/2025 10:14 PM EDT [facility] Sodium, Whole Blood 135(L) 136 - 145 mmol/L LAB HEMATOLOGY METHOD 01/15/2025 10:14 PM EDT [facility] Potassium, Whole Blood 4.3 3.6 - 4.9 mmol/L LAB HEMATOLOGY METHOD 01/15/2025 10:14 PM EDT [facility] Chloride, Whole Blood 99 97 - 107 mmol/L LAB HEMATOLOGY METHOD 01/15/2025 10:14 PM EDT [facility] Glucose, Whole Blood 110(H) 74 - 99 mg/dL LAB HEMATOLOGY METHOD 01/15/2025 10:14 PM EDT [facility] Lactate, Venous, Whole Blood 1.1 0.5 - 2.2 mmol/L LAB HEMATOLOGY METHOD 01/15/2025 10:14 PM EDT [facility] Ionized Calcium, Whole Blood 4.6 4.6 - 5.1 mg/dL LAB HEMATOLOGY METHOD 01/15/2025 10:14 PM EDT [facility] Blood Venous blood specimen / Unknown Venipuncture / Unknown 01/15/2025 10:11 PM EDT 01/15/2025 10:12 PM EDT us Gus Vigil APRN LAB BLOOD ORDERABLES Fin al Result [facility] [address] [place] [address] * (ABNORMAL) CMP (01/15/2025 10:11 PM EDT) Glucose, Plasma 116(H) 74 - 99 mg/dL 01/15/2025 10:32 PM EDT [facility] BUN, Plasma 14 7 - 21 mg/dL 01/15/2025 10:32 PM EDT [facility] Creatinine, Plasma 0.78 0.70 - 1.20 mg/dL 01/15/2025 10:32 PM EDT [facility] BUN/Creatinine Ratio 18 01/15/2025 10:32 PM EDT [facility] Sodium, Plasma 134(L) 136 - 145 mmol/L 01/15/2025 10:32 PM EDT [facility] Potassium, Plasma 4.6 3.6 - 4.9 mmol/L 01/15/2025 10:32 PM EDT [facility] Chloride, Plasma 97 97 - 107 mmol/L 01/15/2025 10:32 PM EDT [facility] CO2, Plasma 24 22 - 29 mmol/L 01/15/2025 10:32 PM EDT [facility] Anion Gap 13 6 - 16 mmol/L 01/15/2025 10:32 PM EDT [facility] Total Calcium, Plasma 8.7(L) 8.9 - 10.2 mg/dL 01/15/2025 10:32 PM EDT [facility] Total Protein 6.5 6.3 - 7.9 g/dL 01/15/2025 10:32 PM EDT [facility] Albumin, Plasma 3.7 3.5 - 5.2 g/dL 01/15/2025 10:32 PM EDT [facility] AST, Plasma 23 10 - 50 U/L 01/15/2025 10:32 PM EDT [facility] ALT, Plasma 52(H) 10 - 50 U/L 01/15/2025 10:32 PM EDT [facility] Alkaline Phosphatase, Plasma 124(H) 40 - 115 U/L 01/15/2025 10:32 PM EDT [facility] Total Bilirubin, Plasma 0.3 0.2 - 1.1 mg/dL 01/15/2025 10:32 PM EDT [facility] eGFRcr 119.3 mL/min/1.7 3m*2 01/15/2025 10:32 PM EDT [facility] Comment:Reported eGFRcr in m L/min/1.73m2 is based the CKD-EPI 2020 equation that does not use a race coefficient. Blood Venous blood specimen / Unknown Venipuncture / Unknown 01/15/2025 10:11 PM EDT 01/15/2025 10:12 PM EDT [facility] BLOOD ORDERABLES Fin al Result Performing Organization Address City/[facility] Co de Phone Number [facility] [address] [place] [address] * PT-INR (01/15/2025 10:11 PM EDT) Prothrombin Time 12.5 12.0 - 14.3 sec 01/15/2025 10:28 PM EDT [facility] INR 1.0 0.9 - 1.1 01/15/2025 10:[address] [facility] Blood Venous blood specimen / Unknown Venipuncture / Unknown 01/15/2025 10:11 PM EDT 01/15/2025 10:12 PM EDT Narrative [facility] - 01/15/2025 10:28 PM EDT [...] of recurrent IN INR 2.5 to 3.5 [facility] [place] [employer] LAB BLOOD ORDERABLES Fin al Result Performing Organization Address City/[facility] Co de Phone Number [facility] [address] [place] [address] * (ABNORMAL) CBC w/diff (01/15/2025 10:11 PM EDT) WBC Count 19.24(H) 3.70 - 10.30 10*3/uL LAB HEMATOLOGY METHOD 01/15/2025 10:14 PM EDT [facility] RBC Count 4.33(L) 4.60 - 6.10 10*6/uL LAB HEMATOLOGY METHOD 01/15/2025 10:14 PM EDT [facility] HGB 13.0(L) 13.7 - 17.5 g/dL LAB HEMATOLOGY METHOD 01/15/2025 10:14 PM EDT [facility] HCT 39.3(L) 40.0 - 51.0 % LAB HEMATOLOGY METHOD 01/15/2025 10:14 PM EDT [facility] Platelet Count 383(H) 155 - 369 10*3/uL LAB HEMATOLOGY METHOD 01/15/2025 10:14 PM EDT [facility] MCV 91 79 - 98 fL LAB HEMATOLOGY METHOD 01/15/2025 10:14 PM EDT [facility] MCH 30.0 26.0 - 32.0 pg LAB HEMATOLOGY METHOD 01/15/2025 10:14 PM EDT [facility] MCHC 33.1 30.7 - 35.5 g/dL LAB HEMATOLOGY METHOD 01/15/2025 10:14 PM EDT [facility] RDW 13.2 11.5 - 14.5 % LAB HEMATOLOGY METHOD 01/15/2025 10:14 PM EDT [facility] MPV 9.2 8.8 - 12.5 fL LAB HEMATOLOGY METHOD 01/15/2025 10:14 PM EDT [facility] nRBC 0.0 <=0.0 per 100 WBCs LAB HEMATOLOGY METHOD 01/15/2025 10:14 PM EDT [facility] Differential Type Automated LAB HEMATOLOGY METHOD 01/15/2025 10:14 PM EDT [facility] Neutrophils % 78 % LAB HEMATOLOGY METHOD 01/15/2025 10:14 PM EDT [facility] Lymphocytes % 12 % LAB HEMATOLOGY METHOD 01/15/2025 10:14 PM EDT [facility] Monocytes % 8 % LAB HEMATOLOGY METHOD 01/15/2025 10:14 PM EDT [facility] Eosinophils % 1 % LAB HEMATOLOGY METHOD 01/15/2025 10:14 PM EDT [facility] Basophils % 0 % LAB HEMATOLOGY METHOD 01/15/2025 10:14 PM EDT [facility] Immature Granulocytes % 1 % LAB HEMATOLOGY METHOD 01/15/2025 10:14 PM EDT [facility] Neutrophils Absolute 15.11(H) 1.60 - 6.10 10*3/uL LAB HEMATOLOGY METHOD 01/15/2025 10:14 PM EDT [facility] Lymphocytes Absolute 2.34 1.20 - 3.90 10*3/uL LAB HEMATOLOGY METHOD 01/15/2025 10:14 PM EDT [facility] Monocytes Absolute 1.46(H) 0.30 - 0.90 10*3/uL LAB HEMATOLOGY METHOD 01/15/2025 10:14 PM EDT [facility] Eosinophils Absolute 0.13 0.00 - 0.50 10*3/uL LAB HEMATOLOGY METHOD 01/15/2025 10:14 PM EDT [facility] Basophils Absolute 0.06 0.00 - 0.10 10*3/uL LAB HEMATOLOGY METHOD 01/15/2025 10:14 PM EDT [facility] Immature Granulocytes Absolute 0.14(H) 0.00 - 0.06 10*3/uL LAB HEMATOLOGY METHOD 01/15/2025 10:14 PM EDT [facility] Blood Venous blood specimen / Unknown Venipuncture / Unknown 01/15/2025 10:11 PM EDT 01/15/2025 10:12 PM EDT Narrative [facility] - 01/15/2025 10:14 PM EDT Therapeutic decision making should be based on absolute values, rather than percentages. Gus Vigil [employer]ER[employer] SUR[employer]YOR LAB BLOOD ORDERABLES [facility] al Result [facility] [address] [place] [address] documented in this encounter Visit Diagnoses Diagnosis Cellulitis of leg, left- Primary Sepsis following procedure, initial encounter (CMS/HCC) Cellulitis of left lower extremity Acute postoperative pain Other acute postoperative pain Closed fracture of left tibial plateau with routine healing, subsequent encounter Cellulitis of leg, left Cellulitis of left lower extremity Cellulitis of left lower extremity documented in this encounter Admitting Diagnoses Diagnosis Cellulitis of leg, left Cellulitis of left lower extremity Sepsis following procedure (CMS/HCC) Closed fracture of left tibial plateau documented [...] Automatic Transfer Provider)1927 (Given - Provider: Taryn Miranda, RN) 0650 (Given - Provider: Taryn Miranda RN)2124 (Given - Provider: Taryn Miranda RN) 06 (Given - Provider: Taryn Miranda RN) vancomycin in NS (Vancocin) IVPB 1,500 mg (COMPLETED) 1,500 mg, Intravenous, Once, 1 dose, On Mon01/20/25 at 1200, at 166.7 mL/hr, Routine 1400 (New Bag - Provider: Alem Witt, SHEREEN) PRN Medication Order 01/20/2025 01/21/2025 01/22/2025 bisacodyl (Dulcolax) suppository 10 mg 10 mg, Rectal, Daily PRN, Starting on Sneha 01/16/25 at 0750, Until Mon01/22/25 at 1922, Routine, constipation, if no bowel movement for 72 hours and no response to magnesium hydroxide 0924 ([facility] Hold - Provider: Automatic Transfer Provider - Reason: Patient in procedure)1216 ([facility] Unhold - Provider: Automatic Transfer Provider) [...] 0411 (Given - Provider: Taryn Miranda RN)09 ([facility] Hold - Provider: Automatic Transfer Provider - Reason: Patient in procedure)1216 ([facility] Unhold - Provider: Automatic Transfer Provider)1630 [...] no bowel movement for 48 hours 0924 ([facility] Hold - Provider: Automatic Transfer Provider - Reason: Patient in procedure)121 ([facility] Unhold - Provider: Automatic Transfer Provider) [...] 10 mL, Intravenous, As needed, Starting on Nseha 01/16/25 at 0750, Until Mon01/22/25 at 1922, [...] documented as of this encounter Care Teams Technology Instructor Relationship Specialty Start Date End Date Renetta Pardo APRN [address] [place] [address] Dr Kahn, JOHN [id number] PCP - General 09/09/23 02/16/25 documented as of this encounter
--- OUTSIDE RECORDS SUMMARY | 2025-01-18 09:04 | XMS_ITS | Encounter Summary ---
Author Organization Healthcare Address [address] [place] [address] Care Team Providers Care Import Coordination And Production Head Name Role Phone Renetta Pardo APRN Primary Care Provider [phone] [phone] Reason for Visit * Auth/Cert (Routine) Specialty Diagnoses / Procedures Referred By Adalid t Referred To Contact Diagnoses Acute postoperative pain Cellulitis of leg, left Cellulitis of left lower extremity Sepsis following procedure, initial encounter ([facility]) recent LLE surgery @ now with cellulitis Sachin Garza MD [address] [facility] [address] [place] [address] Phone: tel: fax: PAV H Inpatient [address] [place] [address] Phone: tel: Referral ID Status Reason Start Date Expiration Date Visits Re quested Visits Authorized [id number] 1 1 Encounter Details Date Type Department Care Team (Late st Contact Info) Description 01/18/2025 9:04 AM EDT Anesthesia Event PAV A OPERATING ROOM [address] [place] [address] Mark Little MD [address] [place] [address] Sterling Arriaga, [address] [place] [id number] Anesthesia Record Procedure Summary Procedure Name Responsible [...] in a correction (including now)? No 09/12/2023 Humiliation, Afraid, Rape, [...] in the past 12 m [facility], were you homeless or living in a correction (including now)? No 01/17/2025 CAGE ASSESSMENT Answer [...] drink first t traci in the morning (EYE-COMPUTER SERVICE TECHNICIAN) to steady your nerves or to [...] portions of the procedure(s) and immediately available [facility] services the entire duration. See [...] portions of the procedure(s) and immediately available [facility] services the entire duration. See resident note for details. * Anesthesia Preprocedure Evaluation - Sterling Arriaga DO - 01/18/2025 8:18 AM EDT Patient: Panda Machado Procedure Information Date/Time: 01/18/25900 Procedure: INCISION AND DRAINAGE, LOWER EXTREMITY (Left: Leg Lower) - supine, berch w/ ext, cystotubing, cx cups, soft tissue set, curettes, 6L NS [facility] [place] [facility] Surgeons: Ye Navarro MD 35 M [...] Orthopaedic Surgery & Sports Medicine [address] [place] [address] Stella Brown N, INFORMATION TECHNOLOGY OFFICER [address] [place] [address] 2025 10:30 AM EDT Office Visit [address] [phone] [place] Collado MD [address] [place] [address] 03/27/2025 9:30 AM EDT Office Visit [address] [phone] [place] Collado MD [address] [place] [address] documented as of this encounter Procedures Procedure Name Priority Date/Time Associated Diagnosis Comments PB ANESTHESIA PLACEHOLDER Routine 01/18/2025 9:[address] AN ELECTIVE ENDOTRACHEAL AIRWAY Routine 01/18/2025 9:14 AM EDT ANESTHESIA PERIPHERAL IV PLACEMENT Routine 01/18/2025 9:13 AM EDT documented in this encounter Results * CT AN ELECTIVE ENDOTRACHEAL AIRWAY, PB ANESTHESIA PLACEHOLDER [...] documented as of this encounter Care Teams Import Coordination And Production Head Relationship Specialty Start Date End Date Renetta Pardo APRN [address] [place] [address] [place] [address] PCP - General 09/09/23 02/16/25 documented as of this encounter
--- OUTSIDE RECORDS SUMMARY | 2025-01-20 09:49 | XMS_ITS | Encounter Summary ---
Author Organization Healthcare Address [address] [place] [address] Care Team Providers Care Organic Section Technical Lead Name Role Phone Renetta Pardo APRN Primary Care Provider +1 [phone] Reason for Visit * Auth/Cert (Routine) Specialty Diagnoses / Procedures Referred By Adalid t Referred To Contact Diagnoses Acute postoperative pain Cellulitis of leg, left Cellulitis of left lower extremity Sepsis following procedure, initial encounter ([facility]) recent LLE surgery @ now with cellulitis Sachin Garza MD [address] [place] [address] Phone: tel: fax: PAV H Inpatient [address] [place] [address] Phone: tel: Referral ID Status Reason Start Date Expiration Date Visits Re quested Visits Authorized [id number] 1 1 Encounter Details Date Type Department Care Team (Late st Contact Info) Description 01/20/2025 9:49 AM EDT Anesthesia Event [facility]ATING RO[facility] [address] [place] [address] Filemon Matute MD [address] [place] [address] Gladis Tejada APRN [address] [place] [address] [phone] (work) Anesthesia Record Procedure Summary Procedure Name [...] 1008; Per order 01/18/25 1100 by Silvia Anedrsen RN 01/20/25 1008 by Shell Barney RN [...] time in the past 12 m [facility], were you homeless or living in a [...] drink first t traci in the morning (EYE-PRINT MACHINE OPERATOR) to steady your nerves or to get rid of a hangover? 0 09/10/2023 CAGE Questionnaire Score 0 024 Utilities Answer Date Recorded In the past 12 months has th e electric, gas, oil, or water [employer] threatened to shut off services in your [...] portions of the procedure(s) and immediately available [facility] services the entire duration. [...] portions of the procedure(s) and immediately available [facility] services the entire duration. See resident note for details. * Anesthesia Preprocedure Evaluation - Filemon Matute MD - 01/20/2025 7:12 AM EDT Patient: Panda Machado Procedure Information Date/Time: 01/20/25 1020 Procedure: INCISION AND DRAINAGE, LOWER EXTREMITY (Left: Leg Lower) Location: [facility] / [place] [facility] Surgeons: Ye Navarro MD [facility] Panda Machado is a 34 y.o. [...] Normal Ventricular Rate 92 Atrial Rate 92 [place] Interval 122 QRSD Interval 102 QT Interval 350 QTC Interval 432 P [place] 56 R [place] 44 T Wave [place] 57 Diagnosis Normal sinus rhythm Diagnosis Normal [...] LEG SURGERY Left [3] Allergies Allergen Reactions [place] Hives [4] acetaminophen, 1,000 mg, Oral, q6h [...] Description 2025 7:50 AM EDT Office Visit [facility] Orthopaedic Surgery & Sports Medicine [address] [place] [address] Stella Brown, ENGINEER OF SYSTEM DEVELOPMENT [address] [place] [address] 2025 10:30 AM EDT Office Visit [facility] [address] [place] [address] Santiago Collado MD [address] [place] [address] [address] [place] [address] 03/27/2025 9:30 AM EDT Office Visit [facility] [address] [place] [address] Santiago Collado MD [address] [place] [address] [address] [place] [address] documented as of this encounter Procedures Procedure Name Priority Date/Time Associated Diagnosis Comments ANESTHESIA PERIPHERAL IV PLACEMENT Routine 01/20/2025 10:10 AM EDT PB ANESTHESIA PLACEHOLDER Routine 01/20/2025 9:56 AM EDT [place] AN ELECTIVE ENDOTRACHEAL AIRWAY Routine 01/20/2025 9:56 [...] MD ANESTHESIA ORDERABLES Final Res ult * [place] AN ELECTIVE ENDOTRACHEAL AIRWAY, PB ANESTHESIA PLACEHOLDER (01/20/2025 9:56 AM EDT) Narrative Filemon Matute MD - 01/20/2025 9:56 AM EDT iFlemon Matute MD 01/20/2025 10:25 AM Intubation Date/Time: [...] documented as of this encounter Care Teams Organic Section Technical Lead Relationship Specialty Start Date End Date Renetta Pardo APRN [address] [place] [address] [place] [address] PCP - General 09/09/23 02/16/25 documented as of this encounter
--- OUTSIDE RECORDS SUMMARY | 2025-01-20 09:52 | XMS_ITS | Encounter Summary ---
Author Organization Healthcare Address [address] [place] [address] Care Team Providers Care Auto Claims Adjuster Name Role Phone Renetta Pardo APRN Primary Care Provider [phone] Reason for Visit * Reason Comments Post-op Problem * Auth/Cert (Routine) Specialty Diagnoses / Procedures Referred By Adalid t Referred To Contact Diagnoses Acute postoperative pain Cellulitis of leg, left Cellulitis of left lower extremity Sepsis following procedure, initial encounter ([facility]) recent LLE surgery @ now with cellulitis Sachin Garza MD [address] [address] Phone: tel: fax: P[facility] H Inpatient [address] [place] [address] Phone: tel: Referral ID Status Reason Start Date Expiration Date Visits Re quested Visits Authorized [id number] 1 1 Encounter Details Date Type Department Care Team (Late st Contact Info) Description 01/20/2025 9:52 AM EDT - 01/20/2025 11:57 AM EDT Surgery P[facility] A OPERATING ROOM [address] [place] [address] Bob Nava MD [id number] [place] [address] INCISION AND DRAINAGE, LOWER EXTREMITY [...] to sleep or slept in a senior care (including now)? No 09/12/2023 Humiliation, Afraid, Rape, [...] you homeless or living in a senior care (including now)? No 01/17/2025 CAGE ASSESSMENT Answer [...] drink first t traci in the morning (EYE-PAIRING MACHINE OPERATOR) to steady your nerves or [...] from the original note were not included. 36377 Flushing Your PICC Line at Home Your [...] soap and water, use an alcohol-based hand family service counselor. The gel should have at least 60% [...] PICC. Last Reviewed Date: 2024 00:00:00 ?? 6943-5473 The Dragonfly List. All rights reserved. This information is not intended as a substitute for professional medical care. Always follow your healthcare professional's instructions. * [facility] - Leigh Rg RN - 01/22/2025 4:21 PM EDT Images from the original note were not included. 77088 Discharge Instructions: Changing the Dressing on Your [...] damage Last Reviewed Date: 2024 00:00:00 ?? [id number] The Dragonfly List. All rights reserved. This information is not [...] the video go to this web address: [email or web address] Or, scan this QR code with your smart phone ?? [facility] * Leigh Muller RN - 01/22/2025 4:20 PM EDT Images from the original note were not included. 64803 Understanding Post Sepsis Syndrome (PSS) Sepsis is [...] infections Last Reviewed Date: 2022 00:00:00 ?? 3245-3250 The Dragonfly List. All rights reserved. This information is not intended as a substitute for professional medical care. Always follow your healthcare professional's instructions. * Rosaura [facility] - Leigh Rg RN - 01/22/2025 4:20 PM EDT Images from the original note were not included. [id number] Buckle (Torus) Fracture of a Leg Your [...] you can dry it with a chair pad maker on the cool setting. ? Put an [...] doctor Last Reviewed Date: 2024 00:00:00 ?? 7855-8872 The Dragonfly List. All rights reserved. This information is not intended as a substitute for professional medical care. Always follow your healthcare professional's instructions. * Rosaura [facility] - Leigh Rg RN - 01/22/2025 4:20 PM EDT Images from the original note were not included. 23183 Discharge Instructions for Cellulitis You have been [...] are in pain. Ask what kind of wpmf-gbj-neuosfo medicine you can take for pain. ? [...] Vomiting. Last Reviewed Date: 2024 00:00:00 ?? 7913-3650 The Dragonfly List. All rights reserved. This information is not intended as a substitute for professional medical care. Always follow your healthcare professional's instructions. * Discharge Summary - Mauricio Mondragon MD - 01/22/2025 4:16 PM EDT Hospitalization Admit Date/Time: 01/15/2025 9:32 PM Admitting Attending: Sachin Garza Discharge Date: 01/22/25 Discharge Attending Physician: Sachin Garza MD PCP name and Address: Renetta Pardo, DRUG DEPARTMENT WORKER [address] [place] [address] Dr Kang B / [facility] [address] Referring provider name and address: Maldonado Luciano PA [address] [place] [address] [place] [address] Chief Concern, Brief History of Present Illness, and Hospital Course Patient arrived to [facility] on 01[facility]15[facility]25 with concern for surgical [...] medications were sent to [facility] - [place], [place] - [address], [facility] [address] DAPTOmycin injection These medications were sent to [facility] [place], [place] - [address] [facility] [address] oxyCODONE 5 MG immediate release capsule Discharge Diagnosis Medical Problems Active and Resolved Hospital Problems Hospital Closed fracture of left tibial plateau Overview Addendum 09/16/2023 1:42 PM by Rolanda Adams APRN, DNP ORT consulted TROM in place WB per ORT 09/15: ORIF L tibial plateau fx Follow up with Dr. Nava on 10/04 * (Principal) Cellulitis of leg, left Sepsis following procedure ([facility]) Cellulitis of left lower extremity Post Discharge [...] Time Provider Department Center 01/27/2025 11:00 AM [facility] ORTHOPAEDICS HAND II [facility] 02/03/2025 8:10 AM Lawrence Hayes MD [facility] 02/11/2025 1:00 PM Ary Santiago APRN IDBCCLX Rosie 03/03/2025 1:00 PM Ary Santiago APRN IDBCCLX [...] General: Spoke with: Patient, Family, and Bedside chief nuclear medicine technologist and Interventions: Assessed: Dressing Dressing Interventions: CDI [...] please contact the Orthopedic Transition Nurse at [phone] Monday through Monday 8:00 am to 2:30 pm. If you feel your concern is a medical emergency please call 911 immediately * Progress Notes - Anna Elam RN - 01/22/2025 9:28 AM EDT Case Management Discharge Note Ravin Ribeiro 34 y.o. male CSN: [id number] Admission: 01/15/2025 9:32 PM Primary Problem: Cellulitis of leg, left Primary Power Plant Inspector: Primary Caregiver: Self Assistance Available at Discharge: Current Outpatient/Agency/Support Group: DME Availability of Care Givers (#Hours): 24 hours Family/Power Plant Inspector(s) Willingness Assessed to care for patient at home: Yes Family/Power Plant Inspector(s) Readiness Assessed to care for patient at [...] Community Agency(s): Patient's Choice of Community Agency(s): [facility] Patient/Family Anticipated Services at Transition: Patient/Family Anticipated Services at Transition: outpatient care DME/Equipment Needed after Discharge: Equipment Currently Used at Home: walker, rolling, commode chair, wheelchair, manual Equipment Needed After Discharge: walker, rolling, commode chair Readmission Within the Last 30 Days: Readmission Within the Last 30 Days: other (see comments) (cellulitis) Medicare Documentation: Medicare Second Notice?: No (pt [place] medicaid) Follow-up: No follow-up provider specified. Discharge Transportation: Transportation Anticipated: family or friend will provide Transportation Home at Discharge: Family/Friend will Provide Has discharge transport been arranged?: No Follow Up Transport: Transportation Needed to Follow up Appoinments: Family/Friend will Provide Additional Comments: Per primary provider, pt is medically ready to discharge home with standard OPAT. PICC in place. Pt will follow up at [facility] for weekly PICC care and labs. First appointment is scheduled for 01/27 at 11 AM. Pt's family will be able to provide assistance and transportation. [facility] will complete teaching today and deliver IV ABX to bedside around 3 PM. Pt and S/O is aware and agreeable to discharge POC. [facility] [phone] [phone] Anna Elam RN * Progress Notes - [...] Canseco MD PGY-1, Orthopaedic Surgery [facility] Orthopaedic Trauma Service Pager: [phone] Orthopaedic Recon/Spine/Foot and Ankle Service Pager: [phone] Cosigned by Lawrence Hayes MD at 01/22/2025 [...] required Red Mondragon MD Orthopaedic Surgery PGY-1 [facility] Orthopaedic Trauma Service Pager: [phone] Orthopaedic Recon/Spine/Foot and Ankle Service Pager: [phone] Personal Pager: [phone] Cosigned by Lawrence Hayes MD at 01/22/2025 1:06 PM EDT * Procedures - Norma Miranda RN - 01/21/2025 7:01 PM EDTAssociated Order(s): Insert PICC line Insert PICC line Date/Time: 01/21/2025 7:01 PM Performed by: Norma Miranda RN Authorized by: Sachin Garza MD [place] Protocol: Verbal consent obtained?: Yes Written consent [...] preference Patient position: Supine Catheter Lot #: [id number] Catheter rubber washer: Birdpost PowerPICC Solo Catheter placed: Single lumen Catheter [...] 01/21/2025 3:28 PM EDT Referrals sent to [facility] and for for possible home IV antibiotic infusion. There was no accepting companies in patient's area. CM spoke with patient and he is agreeable to either go to his local hospital [facility] or come to [facility] in [place] for his weekly PICC care/labs if needed. * Nursing Note - Camden Vital RN - 01/21/2025 1:45 PM EDT Orthopedic Transition Nurse Note General: Spoke with: Patient, Family, and Bedside chief nuclear medicine technologist and Interventions: Assessed: Dressing Dressing Interventions: CDI [...] please contact the Orthopedic Transition Nurse at [phone] Monday through Monday 8:00 am to 2:30 pm. If you feel your concern is a medical emergency please call 911 immediately * Steff Odell RN - 01/21/2025 11:57 AM EDT Images from the original note were not included. [id number] PICC Line Care PICC stands for peripherally [...] arm Last Reviewed Date: 2024 00:00:00 ?? [id number] The Dragonfly List. All rights reserved. This information is not intended as a substitute for professional medical care. Always follow your healthcare professional's instructions. * Steff Odell RN - 01/21/2025 11:56 AM EDT Images from the original note were not included. [id number] * Steff Odell RN - 01/21/2025 11:56 AM EDT Images from the original note were not included. [id number] * Steff Odell RN - 01/21/2025 11:56 [...] your house or a medical facility. The home health care case manager/perinatal social worker will setthat up based on [...] or during weekends/[place] holidays, call the paging pipe smoking machine operator at . Ask for the infectious disease fellow protein purification scientist. Call the clinic if you have any [...] from the original note were not included. 01880 Flushing Your PICC Line at Home Your [...] soap and water, use an alcohol-based hand family service counselor. The gel should have at least 60% [...] PICC. Last Reviewed Date: 2024 00:00:00 ?? 3859-7947 The Dragonfly List. All rights reserved. This information is not intended as a substitute for professional medical care. Always follow your healthcare professional's instructions. * Rosaura [facility] - Steff Paz RN - 01/21/2025 11:56 AM EDT Images from the original note were not included. [id number] Daptomycin Injection Brand Name(s): Cubicin??, Cubicin RF??; [...] to the Food and Drug Administration's (FDA) Max Endoscopytch Adverse Event Reporting program online (https://www.fda.gov/Safety/MedWatch) or by phone ( ). What should I do in case of OVERDOSE? In case of overdose, call the poison control helpline at . Information is also available online at https://www.poisonhelp.org/help. If the victim has collapsed, had a seizure, has trouble breathing, or can't be awakened, immediately call emergency services at 281. What OTHER INFORMATION should I know? Keep [...] of all of the prescription and nonprescription (irxe-mbo-frdufan) medicines you are taking, as well as [...] or pharmacist about specific clinical use. The [place] [employer] represents that the information provided hereunder was formulated with a reasonable standard of care, and in conformity with professional standards in the field. The [place] [employer] makes no representations or warranties, express or implied, including, but not limited to, any implied warranty of merchantability and/or fitness for a particular purpose, with respect to such information and specifically disclaims all such warranties. Users are advised that decisions regarding drug therapy are complex medical decisions requiring the independent, informed decision of an appropriate health animal care service worker, and the information is provided for informational purposes only. The entire monograph for a drug should be reviewed for a thorough understanding of the drug's actions, uses and side effects. The [place] [employer] does not endorse or recommend the use of any drug.The information is not a substitute for medical care. AHFS?? Patient Medication Information?. ?? Copyright, 2023. The [place] [employer] Pharmacists??, [address], [address], [place], [place]. All Rights Reserved. Duplication for commercial use must be authorized by [facility]. Selected Revisions: July 28, 2019. AHFS?? Patient Medication Information?. ?? Copyright, 2024 * [facility] Steff [facility] - 01/21/2025 11:56 AM EDT Images from the original note were not included. 34369 Discharge Instructions: Caring for Your Peripherally Inserted [...] damage. Last Reviewed Date: 2024 00:00:00 ?? 6460-4946 The Dragonfly List. All rights reserved. This information is not intended as a substitute for professional medical care. Always follow your healthcare professional's instructions. * [facility] Steff [facility] - 01/21/2025 11:56 AM EDT Images from the original note were not included. 59595 Central Line Infections You need a central [...] water. Or they use an alcohol-based hand family service counselor containing at least 60% alcohol. ? Using [...] (warm or cold), and use alcohol-based hand family service counselor with at least 60% alcohol as directed. To clean your hands well,follow the guidelines on this sheet. Visitors should wash their hands well when they arrive and when they leave. ? Make sure healthcare staff and your visitors clean their hands. They should use soap and clean, running water or an alcohol-based hand family service counselor before and after checking the line. Don?t [...] good choice for cleaning your hands. The family service counselor should have at least 60% alcohol. Note that some germs can't be killed by alcohol. Your healthcare team can answer any questions you have about when to use a hand family service counselor, or when it?s better to wash with soap and water. Follow these steps: ? Spread the hand family service counselor in the palm of one hand. (Check the package for specific guidelines.) ? Rub your hands together briskly. Clean the backs of your hands, the palms, between your fingers, and up your wrists. ? Rub until the family service counselor is gone and your hands are completely [...] skin Last Reviewed Date: 2023 00:00:00 ?? 7712-3367 The Dragonfly List. All rights reserved. This information is not [...] Lumen PICC Patient Specific Outpatient Circumstances: [address] [place] [address] Family Support: Extended Emergency Contact Information Primary Emergency Contact: Hayley Buenrostro Address: [address] [place] [address] Mobile Relation: Significant Other Preferred language: Citizen Of [place] Physician Ophthalmologist needed? No Secondary Emergency Contact: Jenny Buenrostro Address: [address] [place] [address] Mobile Relation: Mother Contact information: Ravin Ribeiro [phone] (home) Outpatient services (including home infusion, home health, facility referral: See recent [facility] case management/social work note for finalization of services ID follow up appointment: Future Appointments Date Time Provider Department Center 02/03/2025 8:10 AM Lawrence Hayes MD [facility] 02/11/2025 1:00 PM Ary Santiago APRN IDBCCLX [place] 03/03/2025 1:00 PM Ary Santiago APRN IDBCCLX Rosie Patient Assessment I spoke with patient at [...] via secure chat or staff messaging in Flocations. Patient and family will need to be [...] days prior to presentation. He presented to [facility] wherehe was febrile to 101.3F. Upon [...] PA-C Division of Infectious Diseases Available on Flocations Chat History, assessment, and plan discussed with [...] labs to: ID OPAT Team Fax #: [phone] Appointments: Ary Santiago APRN on 02/11 at 1PM and 03/03 at 1PM [facility]: [address] [place] [address] (Select Option 3 for IV Antibiotic / PICC line related issues) For questions regarding OPAT prior to discharge, reach out to the OPAT team via Flocations Secure Chat (Group: OPAT Referral Team). For all questions regarding OPAT after discharge should be directed to the OPAT Team at (Select Option 3 for IV Antibiotics/PICC Issues) between 8am-5pm. After 5 pm, or during weekends/[place] holidays, please call the paging pipe smoking machine operator at to reach the on-call [...] at 01/18/25 1133 [2] Allergies Allergen Reactions Columbia Hives * Consults - Delma Ortiz - 01/21/2025 10:00 AM EDT Pastoral Care Note: Patient was appreciative of [employer]'s visit and expressed gratitude to the care team. he said family is on their way to him. Referral From: Gameplay Programmer Initiated Pastoral Care Provided For: Patient Patient Profile: Spiritual Assessment: Support Systems/ Spiritual Resources: Treasure, Sense of Peace, Trust, Gratitude Spiritual Needs: Emotional support, Spiritual ritual Spiritual Issues: Discharge Interventions: Pastoral Care Outcomes: Patient Outcomes: Appreciative of Gameplay Programmer Support, Expresses acceptance, Gratitude Cosigned by Macrina Dumont at 01/21/2025 6:24 PM EDT Associated attestation - Macrina Dumont - 01/21/2025 6:24 PM EDT This is to attest [employer] regulatory affairs intern chart note has been reviewed and [...] Prevent or Manage Infection Flowsheets (Taken 01/20/2025 1105) Infection Management: aseptic technique maintained Fever Reduction/Comfort Measures: lightweight bedding Problem: Fall Injury Risk Goal: Absence of Fall and Fall-Related Injury Outcome: Ongoing, Progressing * Anesthesia PACU Signout - Kvein Berg DO - 01/20/2025 11:47 AM EDT [...] Agree with above assessment and evaluation from resident/PROFESSOR OF BUSINESS ADMINISTRATION. * Progress Notes - Anna Elam RN - 01/20/2025 10:48 AM EDT Case Management Adult Progress Note Ravin Ribeiro 34 y.o. male CSN: [id number] Admission: 01/15/2025 9:32 PM Primary Problem: Cellulitis of leg, left Anticipated Discharge Date: TBD Pt to OR today for repeat I&D on left knee. Pt has worsening NORMAN and team wants to repeat AM labs. Final ID recs and OPAT eval are pending. Referral sent to [facility] and HH today. Pt's medicaid may be a potential barrier to HH. CM will continue to assist with discharge POC. Anna Elam RN * Op Note - Bob Nava MD - 01/20/2025 10:26 AM EDT Operative Note Date: 01/20/25 Location: [place] OR Name: Ravin Ribeiro, : 1990, Diagnoses: Pre-op Diagnosis Closed fracture of left tibial plateau with routine healing, subsequent encounter Left proximal tibia (knee region) deep abscess Post-op Diagnosis Closed fracture of left tibial plateau with routine healing, subsequent encounter Left proximal tibia (knee region) deep abscess Procedure(s): Incision and drainage of left knee deep abscess Attending Surgeon(s): * Bob Nava - Primary Dental Laboratory Technology Teacher(s): * Emely Giron MD - Resident [...] days prior to presentation. He presented to [facility] wherehe was febrile to 101.3F. Upon [...] PA-C Division of Infectious Diseases Available on Flocations Chat History, assessment, and plan discussed with [...] Gustavo Hightower MD [2] Allergies Allergen Reactions Columbia Hives * Consults - Ricco Howard RN [...] Canseco MD PGY-1, Orthopaedic Surgery [facility] Orthopaedic Trauma Service Pager: [phone] Orthopaedic Recon/Spine/Foot and Ankle Service Pager: [phone] Cosigned by Sachin Garza MD at 01/20/2025 [...] Course 1. Sepsis following procedure, initial encounter ([facility]) 2. Cellulitis of left lower [...] admission Level of Mobility: Ambulatory- community Mobility [place]: Independent gait without device (intermittne use of [...] Mobility Bed Mobility Exam: Scooting/Bridging Level of [place]: Independent Bed Mobility Exam: Supine to Sit Level of [place]: Independent Transfers Transfer Exam: Sit to stand Level of [place]: Stand-by assist Physical/Nonphysical Assist: Verbal Cues Assistive Device: Walker, rolling Transfer Exam: Stand to Sit Level of [place]: Stand-by assist Physical/Nonphysical Assist: Verbal Cues Assistive Device: Walker, rolling Toilet Transfer Level of [place]: Stand-by assist Physical/Nonphysical Assist: Verbal Cues Type of Transfer: Ambulation, To toilet Assistive Device: Walker, rolling, Grab bar Functional Mobility Device: Rolling walker Assistance: Standby assist <Household distance, cuing for safety, pacing activity, RW management, and encouraged L LE WBAT-as permitted per chart (pt reports being used to NWB for pain management CLOTHES MARKER) Balance Postural Appearance Posture: Within Functional Limits [...] admission Level of Mobility: Ambulatory- community Mobility [place]: Independent gait without device (intermittne use of [...] Mobility Bed Mobility Exam: Scooting/Bridging Level of [place]: Independent Bed Mobility Exam: Supine to Sit Level of [place]: Independent Transfers Transfer Exam: Sit to stand Level of [place]: Stand-by assist Physical/Nonphysical Assist: Verbal Cues Assistive Device: Walker, rolling Transfer Exam: Stand to Sit Level of [place]: Stand-by assist Physical/Nonphysical Assist: Verbal Cues Assistive [...] Assessments Standardized Assessments: AMPA 6-Clicks Mobility Assessment [facility] 6-Clicks Mobility Assessment Difficulty patient has [...] 3-5 steps with a railing?: A little [facility] 6-Clicks Mobility Assessment Total : 23 [...] required Red Mondragon MD Orthopaedic Surgery PGY-1 [facility] Orthopaedic Trauma Service Pager: [phone] Orthopaedic Recon/Spine/Foot and Ankle Service Pager: [phone] Personal Pager: [phone] Cosigned by Ye Navarro MD at 01/21/2025 [...] Attending Surgeon(s): * Ye Navarro - Primary Dental Laboratory Technology Teacher(s): * Harvey Swift MD - Resident 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 chief nuclear medicine technologist and Interventions: Assessed: Wound 01/01/25 Surgical Open [...] please contact the Orthopedic Transition Nurse at [phone] Monday through Monday 8:00 am to 2:30 [...] ] Family [ ] Friend [ ] Physician Ophthalmologist [X] Medical records HISTORY OF PRESENT ILLNESS: [...] medial pretibial incision so he presented to [facility] for evaluation. He was febrile to101.3F [...] on day of presentation. He lives in [place] with his , CONSTANZA, and 2 young [...] as needed for muscle spasms. 01/02/25 Suhail Deuñas MD multivitamin (Theragran-M) tablet Take 1 tablet [...] days prior to presentation. He presented to [facility] wherehe was febrile to 101.3F. Upon [...] PA-C Division of Infectious Diseases Available on Flocations Chat History, assessment, and plan discussed with ID attending, Dr. Azucena Collado The following complex inpatient infectious disease services were performed today: Complex antimicrobial therapy counseling and treatment [1] History reviewed. No pertinent past medical history. [2] Past Surgical History: Procedure Laterality Date LEG SURGERY Left [3] Allergies Allergen Reactions Columbia Hives [4] Current Facility-Administered Medications Medication Dose Route Frequency Provider Last Rate Last Admin acetaminophen (Tylenol) tablet 1,000 mg 1,000 mg Oral q6h [facility] Tyrone Howard MD 1,000 mg at 01/17/25 [...] 1,500 mg 1,500 mg Intravenous q8h Gustavo Hightoewr MD 166.7 mL/hr at 01/17/25 1009 1,500 [...] Note Ravin Ribeiro 34 y.o. male CSN: [id number] Admission: 01/15/2025 9:32 PM Primary Problem: Cellulitis of leg, left [employer] reviewed chart and spoke with patient to complete this Initial Case Management Assessment. PCP: Renetta Pardo APRN Emergency Contact: Extended Emergency Contact Information Primary Emergency Contact: Hayley Buenrostro Address: [address] [place] [address] Mobile Relation: Significant Other Preferred language: Citizen Of [place] Physician Ophthalmologist needed? No Secondary Emergency Contact: Jenny Buenrostro Address: [address] [place] [address] Mobile Relation: Mother Insurance: Primary Visit Coverage Payer Plan Sponsor Code Group Number Group Name [employer] MOLINA [employer]ICAID Primary Visit Coverage Subscriber Subscriber ID Subscriber Name Subscriber N Subscriber Address [id number] RAVIN RIBEIRO [id number] [place] [address] Patient information: Primary Caregiver: Self Support System: Immediate family Daily Living Activities: Functional Status: Independent Living Arrangements: Spouse/Significant other, Family Type of Residence: Private residence, Single Level [address] [place] [address] Current DME: Equipment Currently Used at Home: [...] Outpatient Dialysis Services: Living Will/Advance Directive/Power of Gas Cutter /Guardian: Have you reviewed your Advance [...] Pt states he lives at home in [place] with his , MIL, and two small 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 chief nuclear medicine technologist and Interventions: Assessed: Wound 01/01/25 Surgical Open [...] please contact the Orthopedic Transition Nurse at [phone] Monday through Monday 8:00 am to 2:30 [...] tibial pulse, cap refill <2 sec, digits [facility] Orthopedic Surgery Tertiary Exam Completed 01/16/25 [...] exams. Mitch Giron MD PGY-3, Orthopaedic Surgery [facility] Orthopaedic Trauma Service Pager: [phone] Orthopaedic Recon/Spine/Foot and Ankle Service Pager: [phone] Cosigned by Sachin Garza MD at 01/18/2025 [...] your wound. Based upon recent changes to [place] law related to prescribing opioid pain medications, [...] please contact the Orthopedic Transition Nurse at [phone] Monday through Monday 8:00 am to 2:30 [...] examinations WRadha Howard MD PGY-2, Orthopaedic Surgery [facility] Cosigned by Sachin Garza MD at [...] W. Shawn Howard MD PGY-2, Orthopaedic Surgery [facility] Orthopaedic Trauma Service Pager: [phone] Orthopaedic Recon/Spine/Foot and Ankle Service Pager: [phone] [1] History reviewed. No pertinent past medical [...] 25 tablet 0 [4] Allergies Allergen Reactions Columbia Hives Cosigned by Sachin Garza MD at [...] Comments: Preop Clearance Final result TYRONE HOWARD Miugel 01/15/252224 Type and Screen Once Final result [...] 01/16/25 0657 Sepsis following procedure, initial encounter ([facility]) Cellulitis of left lower extremity [...] diagnosis was Sepsis following procedure, initial encounter ([facility]). Diagnoses of Cellulitis of left [...] Drug use: Never [5] Allergies Allergen Reactions Columbia Hives Gus Vigil APRN 01/16/25 0657 Cosigned [...] 01/16/25 0733 Sepsis following procedure, initial encounter ([facility]) Cellulitis of left lower extremity Acute postoperative pain Ultimately, this patient Was admitted (Admission) The primary encounter diagnosis was Sepsis following procedure, initial encounter ([facility]). Diagnoses of Cellulitis of left [...] Description 2025 7:50 AM EDT Office Visit [facility] Orthopaedic Surgery & Sports Medicine [address] [place] [address] Stella Brown N, DRUG DEPARTMENT WORKER [address] [place] [address] 2025 10:30 AM EDT Office Visit [facility] [address] [place] [phone] Santiago Collado MD [address] [place] [address] [address] [place] [address] 03/27/2025 9:30 AM EDT Office Visit [facility] [address] [place] [phone] Santiago Collado MD [address] [place] [address] [address] [place] [address] Scheduled Orders Name Type Priority Associated Diagnoses [...] Final Res ult [facility] [address] [place] [address] * Lavender Top (01/22/2025 5:04 AM EDT) Pathologist [facility] Extra Hold for add-ons 01/22/2025 8:02 AM EDT [facility] Comment:Auto resulted. Blood Venous blood specimen / Unknown 01/22/2025 5:04 AM EDT 01/22/2025 5:30 AM EDT us Sachin Garza MD LAB BLOOD ORDERABLES Final R esult [facility] [address] [place] [address] * (ABNORMAL) Basic metabolic panel (01/22/2025 5:04 [...] R esult [facility] [address] [place] [address] * (ABNORMAL) CBC (01/21/2025 7:29 PM EDT) [...] R esult [facility] [address] [place] [address] * (ABNORMAL) Basic metabolic panel (01/21/2025 7:29 [...] Final R esult [facility] [address] [place] [id number] * PICC SINGLE LUMEN (SMARTFORM LINK) (01/21/2025 7:01 PM EDT) Narrative Norma Miranda RN - 01/21/2025 7:01 PM EDT Norma Miranda RN 01/21/2025 7:19 PM Insert PICC line Date/Time: 01/21/2025 7:01 PM Performed by: Norma Miranda RN Authorized by: Sachin Garza MD [place] Protocol: Verbal consent obtained?: Yes Written consent [...] preference Patient position: Supine Catheter Lot #: [id number] Catheter rubber washer: Bard PowerPICC Solo Catheter placed: Single lumen [...] tibial plateau with routine healing, subsequent encounter [S82.050D] us Bob Nava MD LAB MICROBIOLOGY - GENERAL O RDERABLES Final Result Performing Organization Address City/[facility]/ZIP Co de Phone Number [facility] [address] [place] [address] * Fungal Culture, Routine (01/20/2025 10:42 AM EDT) Culture No Fungal Growth at 1 Week 01/28/2025 7:34 AM EDT [facility] Swab Structure of left knee region / Unknown 01/20/2025 10:42 AM EDT 01/20/2025 11:25 AM EDT Comment:Pre-op diagnosis: Closed fracture of left tibial plateau with routine healing, subsequent encounter [L12.380D] us Bob Nava MD LAB MICROBIOLOGY - GENERAL O RDERABLES Final Result [facility] [address] [place] [address] * Anaerobic Culture (01/20/2025 10:42 AM EDT) [...] O RDERABLES Final Result Performing Organization Address [facility]/ZIP Co de Phone Number [facility] [address] [place] [address] * Fungal Culture, Tissue and SYEDA (01/20/2025 [...] O RDERABLES Final Result Performing Organization Address [facility] de Phone Number [facility] [address] [place] [address] * AFB Culture, Non Respiratory Source and [...] RDERABLES Final Result [facility] [address] [place] [address] * Tissue Culture and Gram Stain (01/20/2025 [...] O RDERABLES Final Result Performing Organization Address City/[facility]/ZIP Co de Phone Number [facility] [address] [place] [address] * Anaerobic Culture (01/20/2025 10:30 AM EDT) [...] O RDERABLES Final Result Performing Organization Address City/[facility]/ZIP Co de Phone Number [facility] [address] [place] [address] * Fungal Culture, Tissue and SYEDA (01/20/2025 [...] O RDERABLES Final Result Performing Organization Address City/[facility]/ZIP Co de Phone Number [facility] [address] [place] [address] * AFB Culture, Non Respiratory Source and [...] O RDERABLES Final Result Performing Organization Address City/[facility]/ZIP Co de Phone Number [facility] [address] [place] [address] * Tissue Culture and Gram Stain (01/20/2025 [...] plateau with routine healing, subsequent encounter [S82.142D] Bbo Nava MD LAB MICROBIOLOGY - GENERAL O RDERABLES Final Result Performing Organization Address [facility] Co de Phone Number [facility] [address] [place] [address] * Anaerobic Culture (01/20/2025 10:27 AM EDT) [...] O RDERABLES Final Result Performing Organization Address [facility] Co de Phone Number [facility] [address] [place] [address] * (ABNORMAL) Creatine Kinase (CK), Total (01/20/2025 3:40 AM EDT) Creatine Kinase, Plasma 18(L) 49 - 320 U/L 01/21/2025 12:17 PM EDT [facility] Blood Venous blood specimen / Unknown Venipuncture / Unknown 01/20/2025 3:40 AM EDT 01/20/2025 3:57 AM EDT Sachin Garza MD LAB BLOOD ORDERABLES Final R esult Performing Organization Address [facility] Co de Phone Number [facility] [address] [place] [address] * Vancomycin, random (01/20/2025 3:40 AM EDT) Vancomycin, Random, Plasma 20.1 ug/mL 01/20/2025 4:51 AM EDT [facility] Blood Venous blood specimen / Unknown Venipuncture / Unknown 01/20/2025 3:40 AM EDT 01/20/2025 3:57 AM EDT Sachin Garaz MD LAB BLOOD ORDERABLES Final R esult Performing Organization Address [facility] Co de Phone Number [facility] [address] [place] [address] * Protime-INR (01/20/2025 3:40 AM EDT) Prothrombin [...] of recurrent LA INR 2.5 to 3.5 Sachin Garza MD LAB BLOOD ORDERABLES Final R esult Performing Organization Address [facility] Co de Phone Number [facility] [address] [place] [address] * (ABNORMAL) Basic metabolic panel (01/20/2025 3:40 [...] Final R esult [facility] [address] [place] [address] * (ABNORMAL) CBC W/O Differential (01/20/2025 3:40 [...] Final R esult [facility] [address] [place] [address] * Vancomycin, random (01/19/2025 11:48 AM EDT) Vancomycin, Random, Plasma 22.9 ug/mL 01/19/2025 1:05 PM EDT [facility] Blood Venous blood specimen / Unknown Venipuncture / Unknown 01/19/2025 11:48 AM EDT 01/19/2025 11:50 AM EDT us Sachin Garza MD LAB BLOOD ORDERABLES Final R esult [facility] [address] [place] [address] * (ABNORMAL) Basic Metabolic Panel, Plasma (01/18/2025 [...] Final R esult [facility] [address] [place] [address] * (ABNORMAL) CBC W/O Differential (01/18/2025 11:54 [...] ORDERABLES Final R esult Performing Organization Address City/[facility]/ZIP Co de Phone Number [facility] [address] [place] [address] * AFB Culture, Non Respiratory Source and [...] O RDERABLES Final Result Performing Organization Address City/[facility] Co de Phone Number [facility] [address] [place] [address] * Fungal Culture, Sterile Body Fluid (NOT [...] O RDERABLES Final Result Performing Organization Address City/[facility]/ZIP Co de Phone Number [facility] [address] [place] [address] * Anaerobic Culture (01/18/2025 3:28 PM EDT) Culture No anaerobes isolated 01/23/2025 7:50 AM EDT [facility] Joint Fluid Topography unknown / Unknown Non-blood Collection / Unknown 01/18/2025 3:28 PM EDT 01/18/2025 3:28 PM EDT Sachin Garza MD LAB MICROBIOLOGY - GENERAL O RDERABLES Final Result Performing Organization Address [facility] Co de Phone Number [facility] [address] [place] [address] * (ABNORMAL) Body Fluid Culture and Gram Stain (01/18/2025 3:28 PM EDT) Culture Heavy Growth 01/20/2025 8:34 AM EDT [facility] Culture Methicillin-Resista nt Staphylococcus aureus(AA) 01/20/2025 8:34 AM EDT [facility] Comment: For susceptibility results refer to: - [id number] The organism value for this result has [...] O RDERABLES Final Result Performing Organization Address City/[facility]/ZIP Co de Phone Number [facility] [address] [place] [address] * Body fluid, cytospin, pathologist interpretation (01/18/2025 [...] O RDERABLES Final Result Performing Organization Address City/[facility]/ZIP Co de Phone Number [facility] [address] [place] [address] * Joint Fluid Crystals (01/18/2025 3:01 PM EDT) Crystals, Joint Fluid No Crystals Seen No Crystals Present 01/18/2025 5:28 PM EDT [facility] Joint Fluid Structure of left knee region / Unknown 01/18/2025 3:01 PM EDT 01/18/2025 3:28 PM EDT us Sachin Garza MD LAB BODY FLUIDS AND STOOLS O RDERABLES Final Result [facility] [address] [place] [address] * (ABNORMAL) Body Fluid Cell Count w/ [...] SPECIMEN TYPE/SOURCE Final Result Performing Organization Address City/[facility]/ZIP Co de Phone Number [facility] [address] [place] [address] * Body Fluid Culture and Gram Stain [...] GENERAL ORDERABLES Final Result Performing Organization Address City/[facility]/ZIP Co de Phone Number [facility] [address] [place] [address] * Joint Infection Panel by PCR (01/18/2025 [...] PM EDT 01/18/2025 3:24 PM EDT Narrative [facility] - 01/18/2025 5:28 PM EDT [...] obtain isolates for antimicrobial susceptibility testing and [employer] Joint Infection Panel results should be used in conjunction with culture results for the determination of susceptibility or resistance. us Sachin Garza MD LAB MICROBIOLOGY - GENERAL O RDERABLES Final Result [facility] [address] [place] [address] * Fungal Culture, Tissue and SYEDA (01/18/2025 [...] ORDERABLES Final Result [facility] [address] [place] [address] * AFB Culture, Non Respiratory Source and [...] ORDERABLES Final Result [facility] [address] [place] [address] * (ABNORMAL) Tissue Culture and Gram Stain [...] aureus Vancomycin JOVANI 1 ug/ml: Susceptible [facility] MICRO[facility]Y - GENERAL ORDERABLES Final Result Performing Organization Address City/[facility]/ZIP Co de Phone Number [facility] [address] [place] [address] * Anaerobic Culture (01/18/2025 10:00 AM EDT) Culture No anaerobes isolated 01/23/2025 7:50 AM EDT [facility] Tissue Topography unknown / Unknown 01/18/2025 10:00 AM EDT 01/18/2025 3:26 PM EDT Comment:Pre-op diagnosis: Cellulitis of left lower extremity [L03.116] [facility] MICRO[facility]OLOGY - GENERAL ORDERABLES Final Result Performing Organization Address [facility]/ZIP Co de Phone Number [facility] [address] [place] [address] * Body fluid, cytospin, pathologist interpretation (01/18/2025 [...] ORDERABLES Final Result [facility] [address] [place] [address] * (ABNORMAL) Body Fluid Cell Count w/ [...] TYPE/SOURCE Final Result [facility] [address] [place] [address] * Fungal Culture, Sterile Body Fluid (NOT CSF) and SYEDA (01/18/2025 9:57 AM EDT) Culture No Fungal Growth at 3 Weeks 02/10/2025 8:37 AM EDT [facility] SYEDA No fungal elements seen 02/10/2025 8:37 AM EDT [facility] Cyst Fluid Topography unknown / Unknown 01/18/2025 9:57 AM EDT 01/18/2025 3:26 PM EDT Comment:Pre-op diagnosis: Cellulitis of left lower extremity [L03.116] [facility] MICRO[facility]OLOGY - GENERAL ORDERABLES Final Result Performing Organization Address City/[facility]/ZIP Co de Phone Number [facility] [address] [place] [address] * AFB Culture, Non Respiratory Source and [...] diagnosis: Cellulitis of left lower extremity [L03.116] [facility] LAB MICROBIOLOGY - GENERAL ORDERABLES Final Result Performing Organization Address City/[facility] Co de Phone Number [facility] [address] [place] [address] * (ABNORMAL) Body Fluid Culture and Gram Stain (01/18/2025 9:57 AM EDT) Culture Heavy Growth 01/20/2025 8:34 AM EDT [facility] Culture Methicillin-Resista nt Staphylococcus aureus(AA) 01/20/2025 8:34 AM EDT [facility] Comment: For susceptibility results refer to: - [id number] The organism value for this result has [...] diagnosis: Cellulitis of left lower extremity [L03.116] [facility] LAB MICROBIOLOGY - GENERAL ORDERABLES Final Result Performing Organization Address City/[facility]/ZIP Co de Phone Number [facility] [address] [place] [address] * Anaerobic Culture (01/18/2025 9:57 AM EDT) Culture No anaerobes isolated 01/23/2025 7:50 AM EDT [facility] Cyst Fluid Topography unknown / Unknown 01/18/2025 9:57 AM EDT 01/18/2025 3:26 PM EDT Comment:Pre-op diagnosis: Cellulitis of left lower extremity [L03.116] [facility] LAB MICROBIOLOGY - GENERAL ORDERABLES Final Result Performing Organization Address City/[facility]/ZIP Co de Phone Number [facility] [address] [place] [address] * Methicillin Resistant Staphylococcus aureus (MRSA) by [...] RDERABLES Final Result [facility] [address] [place] [address] * (ABNORMAL) Basic metabolic panel (01/18/2025 12:18 [...] R esult [facility] [address] [place] [address] * (ABNORMAL) CBC W/O Differential (01/18/2025 12:18 [...] ORDERABLES Final R esult Performing Organization Address [facility] de Phone Number [facility] [address] [place] [address] * Vancomycin, Peak, Plasma Please draw ~2 hours after 1000 dose of vancomycin on Monday finishes infusing. Consider obtaining level via peripheral stick. If peripheral stick is not feasible, please ensure that line is flushed well prior to drawing l... (01/17/2025 2:03 PM EDT) Pathologist [facility] Vancomycin, Peak, Plasma 22.0 20.0 - 40.0 [...] R esult Performing Organization Address [facility] Phone Number [facility] [address] [place] [address] * Vancomycin, Trough, Plasma Please draw ~30 [...] Final R esult [facility] [address] [place] [address] * (ABNORMAL) Basic metabolic panel (01/17/2025 4:05 [...] Final R esult [facility] [address] [place] [address] * US Extremity Limited MSK or Soft [...] ORDERABLES Final Re sult Performing Organization Address [facility] Co de Phone Number [facility] [address] [place] [address] * Prothrombin Time/INR (01/16/2025 4:31 AM EDT) [...] ORDERABLES Final Re sult Performing Organization Address [facility] Co de Phone Number [facility] [address] [place] [address] * (ABNORMAL) CBC W/O Differential (01/16/2025 4:31 [...] Re sult [facility] [address] [place] [address] * CT Tibia Fibula Left w IV [...] ORDERABLES Final Result [facility] [address] [place] [address] * XR Chest 1 View (01/15/2025 11:21 [...] MD on 01/15/2025 11:40 PM Gus Vigil DRUG DEPARTMENT WORKER IMG XR PROCEDURES Final Result * Type [...] ORDERA BLES Final Result Performing Organization Address City/[facility]/ZIP Co de Phone Number [facility] [address] [place] [address], * ECG Adult (01/15/2025 10:46 PM EDT) EKG DIAGNOSIS CLASS Normal MUSE ECG Ventricular Rate 92 BPM MUSE ECG Atrial Rate 92 BPM MUSE ECG NV Interval 122 ms MUSE ECG QRSD Interval 102 ms MUSE ECG QT Interval 350 ms MUSE ECG QTC Interval 432 ms MUSE ECG P [place] 56 degrees MUSE ECG R [place] 44 degrees MUSE ECG T Wave [place] 57 degrees MUSE ECG Diagnosis Normal sinus rhythm MUSE ECG Diagnosis Normal ECG MUSE ECG Diagnosis MUSE ECG Diagnosis Confirmed by Richard Mccracken ([id number]) on 01/16/2025 8:55:10 PM MUSE ECG 01/15/2025 10:4 6 PM EDT 01/16/2025 8:55 PM EDT Ye Navarro MD ECG ORDERABLES Final Resu lt Performing Organization Address City/[facility]/ZIP Co de Phone Number MUSE ECG * [...] AL ORDERABLES Final Result Performing Organization Address City/[facility]/ZIP Co de Phone Number [facility] [address] [place] [address] * (ABNORMAL) Sed rate, automated (01/15/2025 10:11 PM EDT) Sedimentation Rate 46(H) <15 mm/hr 2024 10:34 PM EDT [facility] Blood Venous blood specimen / Unknown Venipuncture / Unknown 01/15/2025 10:11 PM EDT 01/15/2025 10:12 PM EDT [facility] LAB BLOOD ORDERABLES Fin al Result Performing Organization Address [facility] Co de Phone Number [facility] [address] [place] [address] * (ABNORMAL) C-Reactive protein (01/15/2025 10:11 PM EDT) Pathologist [facility] CRP, Plasma 91.9(H) <=8.0 mg/L 01/15/2025 10:32 PM EDT [facility] Blood Venous blood specimen / Unknown Venipuncture / Unknown 01/15/2025 10:11 PM EDT 01/15/2025 10:12 PM EDT Narrative [facility] - 01/15/2025 10:32 PM EDT This CRP test is appropriate for assessment of infection, systemic inflammation and/or tissue injury. To assess cardiovascular disease risk order high sensitivity CRP (CRPH). [facility] Rodger Vigil DRUG DEPARTMENT WORKER LAB BLOOD ORDERABLES Fin al Result Performing Organization Address [facility] Co de Phone Number [facility] [address] [place] [address] * (ABNORMAL) Blood gas panel, venous (01/15/2025 [...] Fin al Result [facility] [address] [place] [address] * (ABNORMAL) CMP (01/15/2025 10:11 PM EDT) [...] 10:11 PM EDT 01/15/2025 10:12 PM [facility]T [facility] Fin al Result Performing Organization Address City/[facility]/ZIP Co de Phone Number [facility] [address] [place] [address] * PT-INR (01/15/2025 10:11 PM EDT) Prothrombin [...] of recurrent LA INR 2.5 to 3.5 [facility]OD ORDERABLES Fin al Result Performing Organization Address City/[facility]/ZIP Co de Phone Number [facility] [address] [place] [address] * (ABNORMAL) CBC w/diff (01/15/2025 10:11 PM [...] EDT Narrative [facility] - 01/15/2025 10:14 PM EDT Therapeutic decision making should be based on absolute values, rather than percentages. Gus Vigil DRUG DEPARTMENT WORKER LAB BLOOD ORDERABLES Fin al Result Performing Organization Address City/State/[facility] Co de Phone Number [facility] [address] [place] [address] documented in this encounter Visit Diagnoses Diagnosis Cellulitis of leg, left- Primary Sepsis following procedure, initial encounter ([facility]) Cellulitis of left lower extremity Acute postoperative pain Other acute postoperative pain Closed fracture of left tibial plateau with routine healing, subsequent encounter Cellulitis of leg, left Cellulitis of left lower extremity Sepsis following procedure ([facility]) Closed fracture of left tibial plateau Closed fracture of left tibial plateau with routine healing, subsequent encounter documented in this encounter Admitting Diagnoses Diagnosis Cellulitis of leg, left Cellulitis of left lower extremity Sepsis following procedure ([facility]) Closed fracture of left tibial [...] and no response to magnesium hydroxide 09 ([facility] Hold - Provider: Automatic Transfer Provider - Reason: Patient in procedure)1216 ([facility] Unhold - Provider: Automatic Transfer [...] 0411 (Given - Provider: Taryn Miranda RN)923 ([facility] Hold - Provider: Automatic Transfer Provider - Reason: Patient in procedure)1216 ([facility] Unhold - Provider: Automatic Transfer [...] no bowel movement for 48 hours 923 ([facility] Hold - Provider: Automatic Transfer Provider - Reason: Patient in procedure)1216 ([facility] Unhold - Provider: Automatic Transfer Provider) naloxone (Narcan) injection 0.08 mg 0.08 mg, Intravenous, As needed, Starting on Sneha 01/16/25 at 0753, Until Mon01/22/25 at 1922, Routine, respiratory depression, every 2 minutes 923 ([facility] Hold - Provider: Automatic Transfer [...] Automatic Transfer Provider)1556 (Given - Provider: Alem Wtit RN)2002 (Given - Provider: Taryn Miranda RN) [...] And Saline lock IV (CANCELED) Once, On Nseha 01/16/25 at 0751, For 1 occurrence And [...] documented as of this encounter Care Teams Auto Claims Adjuster Relationship Specialty Start Date End Date Renetta Pardo APRN [address] [place] [address] [place] [address] PCP - General 09/09/23 02/16/25 documented as of this encounter
--- OUTSIDE RECORDS SUMMARY | 2025-02-03 08:10 | XMS_ITS | Encounter Summary ---
Author Organization Healthcare Address [address] [place] [address] Care Team Providers Care Stock Control Supervisor Name Role Phone Renetta Pardo APRN Primary Care Provider [phone] Reason for Visit * Reason Comments Post-op Encounter Details Date Type Department Care Team (Late st Contact Info) Description 02/03/2025 8:10 AM EDT Office Visit [facility] Orthopaedic Surgery & Sports Medicine [address] [place] [address] Lawrence Hayes MD [address] [place] [address] Closed fracture of left tibial plateau, initial encounter (Primary Dx) Social History Tobacco Use Types Packs/Day Years Used Date Smoking Tobacco: Every Day Cigarettes 1 15 Smokeless Tobacco: Never Tobacco Cessation:Ready to Q uit: No; Counseling Given: Yes Alcohol Use Standard Drinks/Week Comments Never 0 [...] any time in the [facility] homeless or living in [...] drink first t traci in the morning (EYE-AND RESCUE FIRE FIGHTER CRASH FIRE) to steady your nerves or to get [...] Sign Reading Time Taken Comments Blood Pressure 129/88 02/03/2025 7:41 AM EDT Pulse 102 02/03/2025 7:41 AM EDT Temperature 36.9 C (98.4 F) 02/03/2025 7:41 AM EDT Respiratory Rate - - Oxygen Saturation 99% 02/03/2025 7:41 AM EDT Inhaled Oxygen Concentration - - Weight 147 kg (325 lb) 02/03/2025 7:41 AM EDT Height 188 cm (6' 2 ) 02/03/2025 7:41 AM EDT Body Mass Index 41.73 02/03/2025 7:41 AM EDT documented in this encounter Miscellaneous Notes * Progress Notes - Nidhi Kwong PA - 02/03/2025 8:10 AM EDT Images from the original note were not included. Chief Complaint: ORIF left lateral tibial plateau fx (10/05), ORIF left medial tibial plateau (01/01), c/b SSI s/p I&D x2 (01/18, 01/20) HPI: Panda Machado is a 34 y.o. male who presents to clinic for postoperative follow up 2 weeks s/p the most recent above stated procedures. His operative cultures on 01/20 were MRSA + and patient is currently on Daptomycin per Infectious Disease. He had an incisional WV placed but unfortunately missed his follow up appointment on 01/27 for exchange. Denies any fevers, chills, nausea, vomiting. He reports he has been weight-bearing on his LLE. Focused MSK Exam: Left lower extremity: Healing surgical incision with sutures in place Three sub-centimeter areas of dehiscence mid incision with expressible sanguinous drainage. No surrounding erythema or ecchymosis Mild edema of the knee globally Knee ROM: 60-130 Motor: Fires KF/KE/HL/FHL/GSC/TA Sensation: SILT arevalo/sa/sp/dp/t Vascular: Digits WWP XRAY: No new images Assessment: 34 y.o. male who presents 2 weeks s/p the most recent above stated procedures. Plan: - Emphasized the importance of remaining NWB to his LLE - Sutures removed in clinic, steri-strips placed. Patient may shower, get incisions wet, no soaking/submersion, no lotions/ointments over incision site - Recommend daily dry dressing changes as needed as they become saturated - Continue antibiotics per Infectious Disease - FU 2 weeks, with imaging, with BS The patient was given an opportunity to ask questions and all their questions were answered to their satisfaction. The patient was seen and evaluated by myself and Dr. Hayes. Nidhi Kwong PA-C Department of Orthopaedic Surgery and Sports Medicine Consult Pager: [phone] Service Pager: [phone] Cosigned by Lawrence Hayes MD at 02/03/2025 1:06 PM EDT Associated attestation - Lawrence Hayes MD - 02/03/2025 1:06 PM EDT I attest to being involved in more than half the total time for 15 minutes in patient care. documented in this encounter Plan of Treatment Upcoming Encounters Date Type Department Care Team (Late st Contact Info) Description 2025 7:50 AM EDT Office Visit [facility] Orthopaedic Surgery & Sports Medicine [address] [place] [address] Stella Brown, TECHNICAL SALES REPRESENTATIVE [address] [place] [address] 2025 10:30 AM EDT Office Visit [address] [address] Santiago Collado MD [address] [place] [address] [address] [place] [address] 03/27/2025 9:30 AM EDT Office Visit [address] [address] Santiago Collado MD [address] [place] [address] [address] [place] [address] documented as of this encounter Results * XR Knee Left 3 Views (02/17/2025 9:29 AM EDT) Anatomical Region Laterality Modality Lower Extremities, Knee Left Digital Radiography Impressions 02/17/2025 9:53 AM EDT Internal fixation of healing tibial plateau fracture with unchanged fracture fragment alignment. CRITICAL RESULT: No. COMMUNICATION: Per this written report. Drafted by Maldonado Remy MD on 02/17/2025 9:52 AM Final report signed by Maldonado Remy MD on 02/17/2025 9:53 AM Narrative 02/17/2025 9:53 AM EDT CLINICAL INDICATION: pain TECHNIQUE: XR KNEE LEFT 3 VIEWS COMPARISON: January 15, 2025. FINDINGS: 3 views of the left knee show medial and lateral plate and screw and pin fixation of healing lateral tibial plateau fracture that extended into the medial tibial metaphysis with unchanged fracture fragment alignment. Distal aspect of intramedullary karmen is appreciated in the femur. Knee joint space and alignment are unchanged. Small effusion.. Procedure Note Maldonado Remy MD - 02/17/2025 CLINICAL INDICATION: pain TECHNIQUE: XR KNEE LEFT 3 VIEWS COMPARISON: January 15, 2025. FINDINGS: 3 views of the left knee show medial and lateral plate and screw and pinfixation of healing lateral tibial plateau fracture that extended into themedial tibial metaphysis with unchanged fracture fragment alignment.Distal aspect of intramedullary karmen is appreciated in the femur. Kneejoint space and alignment are unchanged. Small effusion.. IMPRESSION: Internal fixation of healing tibial plateau fracture with unchangedfracture fragment alignment. CRITICAL RESULT: No. COMMUNICATION: Per this written report. Drafted by Maldonado Remy MD on 02/17/2025 9:52 AM Final report signed by Maldonado Remy MD on 02/17/2025 9:53 AM us Nidhi ZULUAGA IMG XR PROCEDURES Final Resu lt documented in this encounter Visit Diagnoses Diagnosis Closed fracture of left tibial plateau, initial encounter- Primary Closed fracture of left tibial plateau, initial encounter documented in this encounter Additional Health Concerns Infection Onset Date Last Indicated Resolved Time MRSA 01/18/2025 01/18/2025 Assessment Noted Time A fall risk assessment has been complete d for the patient 10/04/2023 8:38 AM EST A Body Mass Index follow-up plan has been documented for the patient 02/03/2025 1:06 PM EDT documented as of this encounter Care Teams Stock Control Supervisor Relationship Specialty Start Date End Date Renetta Pardo APRN [address] [place] [address] [place] [address] PCP - General 09/09/23 02/16/25 documented as of this encounter
--- OUTSIDE RECORDS SUMMARY | 2025-02-17 08:40 | XMS_ITS | Encounter Summary ---
Author Organization Healthcare Address [address] [place] [address] Care Team Providers Care Ladies Locker Room Attendant Name Role Phone Blaine Nava MD Primary Care Provider [phone] Encounter Details Date Type Department Care Team (Latest Contact Info) Description 02/17/2025 8:40 AM EDT - 02/17/2025 1:27 PM EDT Hospital Encounter [facility] Radiology [address], 1st [place] [address] Closed fracture of left [...] and Family Not on file 02/24/2025 Attends Evangelical Services Not on file 02/24 Active Member [...] in the past 12 m [facility], were you homeless or living in a chcf (including now)? No 02/24/2025 CAGE ASSESSMENT Answer [...] Have you had a drink first t rtaci in the morning (EYE-ADMISSIONS GATE ATTENDANT) to steady your nerves or to [...] specific directions only. Mix and deliver per institution/[facility] ility policy. 1 each 01/22/2025 5 enoxaparin [...] Description 2025 7:50 AM EDT Office Visit [facility] Orthopaedic Surgery & Sports Medicine [address], [address] [place] [address] Stella Brown, SUPERVISOR [employer] [address] [place] [address] 2025 10:30 AM EDT Office Visit [address] [address] Santiago Collado MD [address] [place] [address] [address] [place] [address] 03/27/2025 9:30 AM EDT Office Visit [address] [address] Santiago Collado MD [address] [place] [address] 100 [place] [address] documented as of this encounter [...] 02/17/2025 9:52 AM Final report signed by Maldondao Remy MD on 02/17/2025 9:53 AM Narrative [...] documented as of this encounter Care Teams Ladies Locker Room Attendant Relationship Specialty Start Date End Date Blaine Nava MD [address] [place] [address] [address]1 [address]1 [place] [address] PCP - General 02/17/25 documented as of this encounter
--- OUTSIDE RECORDS SUMMARY | 2025-02-17 09:20 | XMS_ITS | Encounter Summary ---
Author Organization Healthcare Address [address] [place] [address] Care Team Providers Care Farm Equipment Engineer Name Role Phone Blaine Nava MD Primary Care Provider [phone] Reason for Referral * Imaging (Urgent) - Closed Specialty Diagnoses / Procedures Referred By Adalid wills Referred To Contact Radiology Diagnoses Tibial plateau fracture, left, closed, initial encounter Procedures CT Knee Left wo IV Contrast Stella Lobo APRN [address] [facility] [address] [place] [address] Phone: tel: fax: Referral ID Status Reason Start Date Expiration Date Visits Re quested Visits Authorized [id number] Closed 02/17/2025 08/19/2026 1 1 Reason for Visit * Reason Comments Post-op Encounter Details Date Type Department Care Team (Late st Contact Info) Description 02/17/2025 9:20 AM EDT Office Visit [facility] [address], [address] [place] [address] Lawrence Hayes MD [address] [place] [address] Tibial plateau fracture, left, closed, [...] in the past 12 m [facility], were you homeless or living in [...] drink first t traci in the morning (EYE-BALLING HEAD TENDER) to steady your nerves or to get [...] Description 2025 7:50 AM EDT Office Visit [facility] [address], [address] [place] [address] Stella Lobo APRN [address] [place] [address] 2025 10:30 AM EDT Office Visit [address] [address] Santiago Collado MD [address] [place] [address] [address] [place] [address] 03/27/2025 9:30 AM EDT Office Visit [address] [address] Santiago Collado MD [address] [place] [address] [address] [place] [address] documented as of this encounter [...] 12.7(H) <=8.0 mg/L 02/17/2025 12:40 PM EDT [facility] Blood Venous blood specimen / Unknown Venipuncture / Unknown 02/17/2025 11:00 AM EDT 02/17/2025 11:00 AM EDT Narrative [facility] - 02/17/2025 12:40 PM EDT This CRP test is appropriate for assessment of infection, systemic inflammation and/or tissue injury. To assess cardiovascular disease risk order high sensitivity CRP (CRPH). us Stella Lobo APRN LAB BLOOD ORDERABLES Final Result [facility] [address] [place] [address] * (ABNORMAL) Sedimentation Rate, Automated (02/17/2025 11:00 AM EDT) Sedimentation Rate 20(H) <15 mm/hr 2024 12:47 PM EDT [facility] Blood Venous blood specimen / Unknown Venipuncture / Unknown 02/17/2025 11:00 AM EDT 02/17/2025 11:00 AM EDT us Stellamarie Lobo APRN LAB BLOOD ORDERABLES Final Result [facility] [address] [place] [address] * (ABNORMAL) Comprehensive metabolic panel (02/17/2025 11:00 AM EDT) Glucose, Plasma 94 74 - 99 mg/dL 02/17/2025 12:40 PM EDT [facility] BUN, Plasma 13 7 - 21 mg/dL 02/17/2025 12:40 PM EDT [facility] Creatinine, Plasma 0.85 0.70 - 1.20 mg/dL 02/17/2025 12:40 PM EDT [facility] BUN/Creatinine Ratio 15 02/17/2025 12:40 PM EDT [facility] Sodium, Plasma 137 136 - 145 mmol/L 02/17/2025 12:40 PM EDT [facility] Potassium, Plasma 4.6 3.6 - 4.9 mmol/L 02/17/2025 12:40 PM EDT [facility] Chloride, Plasma 101 97 - 107 mmol/L 02/17/2025 12:40 PM EDT [facility] CO2, Plasma 25 22 - 29 mmol/L 02/17/2025 12:40 PM EDT [facility] Anion Gap 11 6 - 16 mmol/L 02/17/2025 12:40 PM EDT [facility] Total Calcium, Plasma 9.3 8.9 - 10.2 mg/dL 02/17/2025 12:40 PM EDT [facility] Total Protein 7.1 6.3 - 7.9 g/dL 02/17/2025 12:40 PM EDT [facility] Albumin, Plasma 4.2 3.5 - 5.2 g/dL 02/17/2025 12:40 PM EDT [facility] AST, Plasma 16 10 - 50 U/L 02/17/2025 12:40 PM EDT [facility] ALT, Plasma 28 10 - 50 U/L 02/17/2025 12:40 PM EDT [facility] Alkaline Phosphatase, Plasma 117(H) 40 - 115 U/L 02/17/2025 12:40 PM EDT [facility] Total Bilirubin, Plasma <0.2(L) 0.2 - 1.1 mg/dL 02/17/2025 12:40 PM EDT [facility] eGFRcr 116.2 mL/min/1.7 3m*2 02/17/2025 12:40 PM EDT [facility] Comment:Reported eGFRcr in m L/min/1.73m2 is based the CKD-EPI 2020 equation that does not use a race coefficient. Blood Venous blood specimen / Unknown Venipuncture / Unknown 02/17/2025 11:00 AM EDT 02/17/2025 11:00 AM EDT us Stella Lobo REHAB NURSING TECH LAB BLOOD ORDERABLES Final Result [facility] [address] [place] [address] * (ABNORMAL) CBC with Differential (02/17/2025 11:00 AM EDT) WBC Count 7.61 3.70 - 10.30 10*3/uL LAB HEMATOLOGY METHOD 02/17/2025 12:23 PM EDT [facility] RBC Count 4.26(L) 4.60 - 6.10 10*6/uL LAB HEMATOLOGY METHOD 02/17/2025 12:23 PM EDT [facility] HGB 12.5(L) 13.7 - 17.5 g/dL LAB HEMATOLOGY METHOD 02/17/2025 12:23 PM EDT [facility] HCT 39.1(L) 40.0 - 51.0 % LAB HEMATOLOGY METHOD 02/17/2025 12:23 PM EDT [facility] Platelet Count 330 155 - 369 10*3/uL LAB HEMATOLOGY METHOD 02/17/2025 12:23 PM EDT [facility] MCV 92 79 - 98 fL LAB HEMATOLOGY METHOD 02/17/2025 12:23 PM EDT [facility] MCH 29.3 26.0 - 32.0 pg LAB HEMATOLOGY METHOD 02/17/2025 12:23 PM EDT [facility] MCHC 32.0 30.7 - 35.5 g/dL LAB HEMATOLOGY METHOD 02/17/2025 12:23 PM EDT [facility] RDW 13.0 11.5 - 14.5 % LAB HEMATOLOGY METHOD 02/17/2025 12:23 PM EDT [facility] MPV 9.7 8.8 - 12.5 fL LAB HEMATOLOGY METHOD 02/17/2025 12:23 PM EDT [facility] nRBC 0.0 <=0.0 per 100 WBCs LAB HEMATOLOGY METHOD 02/17/2025 12:23 PM EDT [facility] Differential Type Automated LAB HEMATOLOGY METHOD 02/17/2025 12:23 PM EDT [facility] Neutrophils % 52 % LAB HEMATOLOGY METHOD 02/17/2025 12:23 PM EDT [facility] Lymphocytes % 33 % LAB HEMATOLOGY METHOD 02/17/2025 12:23 PM EDT [facility] Monocytes % 8 % LAB HEMATOLOGY METHOD 02/17/2025 12:23 PM EDT [facility] Eosinophils % 5 % LAB HEMATOLOGY METHOD 02/17/2025 12:23 PM EDT [facility] Basophils % 1 % LAB HEMATOLOGY METHOD 02/17/2025 12:23 PM EDT [facility] Immature Granulocytes % 1 % LAB HEMATOLOGY METHOD 02/17/2025 12:23 PM EDT [facility] Neutrophils Absolute 4.07 1.60 - 6.10 10*3/uL LAB HEMATOLOGY METHOD 02/17/2025 12:23 PM EDT [facility] Lymphocytes Absolute 2.50 1.20 - 3.90 10*3/uL LAB HEMATOLOGY METHOD 02/17/2025 12:23 PM EDT [facility] Monocytes Absolute 0.59 0.30 - 0.90 10*3/uL LAB HEMATOLOGY METHOD 02/17/2025 12:23 PM EDT [facility] Eosinophils Absolute 0.36 0.00 - 0.50 10*3/uL LAB HEMATOLOGY METHOD 02/17/2025 12:23 PM EDT [facility] Basophils Absolute 0.05 0.00 - 0.10 10*3/uL LAB HEMATOLOGY METHOD 02/17/2025 12:23 PM EDT [facility] Immature Granulocytes Absolute 0.04 0.00 - 0.06 10*3/uL LAB HEMATOLOGY METHOD 02/17/2025 12:23 PM EDT [facility] Blood Venous blood specimen / Unknown Venipuncture / Unknown 02/17/2025 11:00 AM EDT 02/17/2025 11:00 AM EDT [facility] - 02/17/2025 12:23 PM EDT Therapeutic decision making should be based on absolute values, rather than percentages. us Stella N Lobo REHAB NURSING TECH LAB BLOOD ORDERABLES Final Result [facility] [address] [place] [address] documented in this encounter Visit Diagnoses Diagnosis [...] documented as of this encounter Care Teams Farm Equipment Engineer Relationship Specialty Start Date End Date Blaine Nava MD [address] [place] [address] [address]1 [address] [place] [address] PCP - General 02/17/25 documented as of this encounter
--- OUTSIDE RECORDS SUMMARY | 2025-02-17 13:28 | XMS_ITS | Encounter Summary ---
Author Organization Healthcare Address [address] [place] [address] Care Team Providers Care Hedis Manager Name Role Phone Blaine Nava MD Primary Care Provider [phone] Reason for Referral * Imaging (Urgent) - Closed Specialty Diagnoses / Procedures Referred By Contac t Referred To Contact Radiology Diagnoses Tibial plateau fracture, left, closed, initial encounter Procedures CT Knee Left wo IV Contrast Stella Brown APRN [address] [place] [address] Phone: tel: fax: Referral ID Status Reason Start Date Expiration Date Visits Re quested Visits Authorized [id number] Closed 02/17/2025 08/19/2026 1 1 Reason for Visit * Imaging (Urgent) - Closed Specialty Diagnoses / Procedures Referred By Contac t Referred To Contact Radiology Diagnoses Tibial plateau fracture, left, closed, initial encounter Procedures CT Knee Left wo IV Contrast Stella Brown APRN [address] [place] [address] Phone: tel: fax: Referral ID Status Reason Start Date Expiration Date Visits Re quested Visits Authorized [id number] Closed 02/17/2025 08/19/2026 1 1 Encounter Details Date Type Department Care Team (Latest Contact Info) Description 02/17/2025 1:28 PM EDT - 02/17/2025 11:59 PM EDT Hospital Encounter [facility] CT [address] [place] [address] Tibial plateau fracture, left, closed, [...] drink first t traci in the morning (EYE-RELIEF MASTER) to steady your nerves or to get rid of a hangover? 0 09/10/2023 CAGE Questionnaire Score 0 024 Utilities Answer Date Recorded In the past 12 months has th [email or web address], gas, oil, or water company threatened to [...] Description 2025 7:50 AM EDT Office Visit [facility] Orthopaedic Surgery & Sports Medicine [address] [place] [address] Stella Brown, CALCULATING MACHINE MECHANIC [address] [place] [address] 2025 10:30 AM EDT Office Visit [facility] [address] [place] [address] Santiago Collado MD [address] [facility] [address] [place] [address] 03/27/2025 9:30 AM EDT Office Visit [facility] [address] [place] [address] Santiago Collado MD [address] [facility] [address] [place] [address] documented as of this encounter Procedures Procedure [...] documented as of this encounter Care Teams Hedis Manager Relationship Specialty Start Date End Date Blaine Nava MD [address] [place] [address] #1 #1 JOHN Miller [address] PCP - General 02/17/25 documented as of this encounter
--- OUTSIDE RECORDS SUMMARY | 2025-02-21 09:35 | XMS_ITS | Encounter Summary ---
Author Organization Healthcare Address [address] [place] [address] Care Team Providers Care Educational Administrator Name Role Phone Blaine Nava MD Primary Care Provider [phone] Reason for Visit * Auth/Cert (Routine) Specialty Diagnoses / Procedures Referred By Adalid t Referred To Contact Diagnoses Tibial plateau fracture, left, closed, initial encounter Surgical site infection Tibial plateau fracture, left, closed, initial encounter [S82.142A] Surgical site infection [T81.49XA] Procedures TX DRAIN LOWER LEG DEEP ABSC/HEMATOMA INCISION AND DRAINAGE, LOWER EXTREMITY Lawrence Hayes MD [address] [address] Phone: tel: fax: PAV A OPERATING ROOM [address] [place] [address] Phone: tel: Referral ID Status Reason Start Date Expiration Date Visits Re quested Visits Authorized [id number] 1 1 Encounter Details Date Type Department Care Team (Latest Contact Info) Description 02/21/2025 9:35 AM EDT - 02/24/2025 8:01 PM EDT Hospital Encounter CH PAVA 9 T2 UNI [address] [place] [address] Lawrence Hayes MD [address] [address] Cellulitis of left lower extremity [...] and Family Not on file 02/24/2025 Attends [employer] [facility] Not on file 07/14 /2025 Active [...] any time in the past 12 m [facility], were you homeless or living in a fci (including now)? No 02/24/2025 CAGE ASSESSMENT Answer [...] drink first t traci in the morning (EYE-BOILING TUB OPERATOR) to steady your nerves or to get rid of a hangover? 0 09/10/2023 CAGE Questionnaire Score 0 024 Utilities Answer Date Recorded In the past 12 months has th e Apprats, gas, oil, or water company threatened to [...] encounter Discharge Instructions * Discharge Instructions* Keyanna Romero MD - 02/24/2025 4:03 PM EDT Post-Operative [...] technique maintained Taken 02/21/2025 1940 by Shelley Rdoas, RN Fever Reduction/Comfort Measures: lightweight bedding Problem: [...] note were not included. 798 Narcan Nasal [place]: Rescue Guide for Opioid Overdose Step 1 [...] for use in the nose. * [facility] Adrienne Inman - 02/24/2025 4:04 PM [...] of Drug Diversion Investigators (NADDI): http://rxdrugdropbox.org/ ?? [place] Office of Drug Control Policy: http://odcp.ky.gov/Prescription+Drug+Drop+Box+Sites.htm Are [...] that tracks prescriptions of controlled substances in [place]. The TIFFANY report tells your doctor if [...] or your doctor may then call the [place] Drug Enforcement and Professional Practices Branch at .This will start an investigation of the error. * Rosaura RushDILLON - Adrienne Inman - 02/24/2025 4:03 PM EDT Images from the original note were not included. [id number] * Rosaura RushDILLON - Adrienne Inman - [...] your house or a medical facility. The caser/social services manager will setthat up based on your [...] or during weekends/ holidays, call the paging cloth desizing range operator chief at . Ask forthe infectious disease fellow harm reduction worker. Call the clinic if you have any of these: ?? Fevers greater than 100.5??F ?? An allergic reaction, such as rash ?? Nausea, vomiting, or diarrhea ?? New or returning redness near the IV line ?? Redness, pain, swelling, or pus around the IV line * Rosaura uRshIR - Adrienne Inman - 02/24/2025 4:03 PM [...] of your leg. This is also called ?Lmpbva-po-Naf Weight Bearing,? ?Toe-Touch Weight Bearing,? or ?Foot-Flat [...] heal and have less pain. * Ros[facility] - Adrienne Inman - 02/24/2025 4:02 [...] thoroughly. Use soap and water or hand gis administrator and wear gloves before touching the PICC [...] them before you flush the line or production crew supervisor fluids or medicines. Avoid hard physical [...] from the original note were not included. 25142 Preventing a Surgical Site Infection A risk [...] of infection. ?? Controlled body temperature. A hbini-abeu-jeimuw temperature during or after surgery prevents oxygen [...] and water or with an alcohol-based hand gis administrator before and after caring for you. Don?t [...] away. Last Reviewed Date: 2024 00:00:00 ?? [id number] The [employer]. All rights reserved. This information is not intended as a substitute for professional medical care. Always follow your healthcare professional's instructions. * Discharge Summary - Sushil Lea MD - 02/24/2025 3:48 PM EDT Hospitalization Admit Date/Time: 02/21/2025 9:35 AM Admitting Attending: Lawrence Hayes Discharge Date: 02/24/2025 Discharge Attending Physician: Lawrence Hayes MD PCP name and Address: Blaine Nava MD [address] [place], [place] [address] [address] / [place] [address] Referring provider name and address: No referring [...] medications were sent to [facility] [address], [facility] [address] cefTRIAXone 1 g reconstituted solution DAPTOmycin injection [...] Center 2025 7:50 AM Stella Brown APRN [facility] 2025 10:30 AM Santiago Escalante MD IDBCCLX [place] 03/27/2025 9:30 AM Santiago Escalante MD IDBCCLX [place] Test Results Pending At Discharge Pending Labs [...] discharge. Sushil Lea MD Orthopaedic Surgery PGY-1 [facility] Orthopaedic Trauma Service Pager: [phone] Orthopaedic Recon/Spine/Foot and Ankle Service Pager: [phone] Personal Pager: [phone] Cosigned by Lawrence Hayes [...] 1030AM WEEK 5 FOLLOWUP: 03/27/2025, 0930AM at [address] [place] [address] (Select Option 3 for IV Antibiotic / PICC line related issues) All questions regarding outpatient parenteral antimicrobials after discharge should be directed to the OPAT nurse navigator at (Select Option 3 for IV Antibiotics/PICC Issues) between 8am-5pm. After 5 pm, or during weekends/ holidays, please call the paging cloth desizing range operator chief at to reach the on-call ID fellow. PLEASE NOTIFY THE ID CONSULTING SERVICE OF ANY QUESTIONS REGARDING THESE RECOMMENDATIONS OR WITH ANY ANTIMICROBIAL CHANGES THAT OCCUR AFTER THE DATE/TIME OF THIS OPAT INTAKE NOTE. * Progress Notes - Anna Elam RN - 02/24/2025 11:03 AM EDT Case Management Adult Initial Progress Note Panda Machado 34 y.o. male CSN: [id number] Admission: 02/21/2025 9:35 AM Primary Problem: Surgical site infection Cis Coordinator reviewed chart and spoke with patient to complete this Initial Case Management Assessment. PCP: Blaine Nava MD Emergency Contact: Extended Emergency Contact Information Primary Emergency Contact: Hayley Buenrostro Address: [address] [place] [address] Mobile Relation: Significant Other Preferred language: Sammarinese Directional Driller needed? No Secondary Emergency Contact: Jenny Buenrostro Address: [address] [place] [address] Mobile Relation: Mother Insurance: Primary Visit Coverage Payer Plan Sponsor Code Group Number Group Name PAS[employer]ORT MEDICAID MOLINA PASSPORT MOLINA MEDICAID Primary Visit Coverage Subscriber Subscriber ID Subscriber Name Subscriber N Subscriber Address [id number] PANDA MACHADO [id number] [place] [address] Patient information: Primary Caregiver: Self Support System: Immediate family Daily Living Activities: Functional Status: Independent Living Arrangements: Spouse/Significant other, Children Type of Residence: Private residence, Single Level [address] [place] [address] Smoker in the Home?: Yes Current DME: [...] DME Provider: Rajesh Living Will/Advance Directive/Power of Outreach And Education Social Worker /Guardian: Unable to assess: No Have you [...] Rajesh today. Pt [facility] for PICC dressing changes and labs and was agreeable to continue receiving care there. CM will send orders when they are available. Pt stated he lives with his and two children. His can provide assistance and transportation. Pt is unemployed and meets 300% FPG. CM will continue to assist with discharge POC. [facility] Oaiuk-[phone] [phone] Update: Final ID recs have been placed and standard OPAT approved. Rajesh will complete teaching and deliver ABX to bedside around 5 PM today. Orders were faxed to [facility]. Infusion center will call pt to schedule [...] 10 mg/kg (Adjusted), Intravenous, q24h, Stella Brown, VOLUNTEER SPECIALIST, Last Rate: 264 mL/hr at 02/23/252056, 1,100 [...] tibial plateau fluid (op cx?) - NCC 89708 (PMN 98%); RBC 240K. GS - GPC. [...] surgical site pain/swelling, erythema. Pt seen at [facility] where CT suggested L medial knee abscess [...] Tobacco: Active smoker ETOH: Denies DRUG ALLERGIES: [place] RECOMMENDATIONS: Re: chronic LEFT tibial SSI, implant [...] abx therapy. For now, while inpatient at [facility] Daptomycin 8-10mg/kg IV q24h as primary coverage. [...] appointment in order to complete registration paperwork.) [facility] (Infectious Diseases Clinic) [address] [place] [address] POULTRY BONER: . FAX: ID Bone and Joint Consult [...] -- Annamaria Romero MD Orthopaedic Surgery PGY-1 [facility] Orthopaedic Trauma Service Pager: [phone] Orthopaedic Recon/Spine/Foot and Ankle Service Pager: [phone] Cosigned by Lawrence Hayes MD at 02/26/2025 [...] Goal: Plan of Care Review 02/23/20251915 by Comso Traylor RN Outcome: Ongoing, Progressing Flowsheets (Taken [...] VTE (Venous Thromboembolism) Risk 02/23/20251915 by Cosmo Traylor RN Flowsheets [...] Edited by: García Shepherd MD at 02/21/2025 1259 - Pain control: MMPC - Diet: regular [...] required Carolin Payan MD Orthopedic Surgery PGY-1 [facility] Cosigned by Lawrence Hayes MD at 02/26/2025 [...] session. 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 Prior Level of Function Receives Help From: No assist required prior to admission Level of Mobility: Ambulatory- community Mobility Perry: Independent gait without device History of Falls: [...] Mobility Exam: Supine to Sit Level of Perry: Stand-by assist Physical/Nonphysical Assist: Verbal Cues Bed Mobility Exam: Sit to Supine Level of Perry: Stand-by assist Physical/Nonphysical Assist: Verbal Cues Transfers Transfer Interventions: Pt completed a sit to stand transfer with SBA and min cues for safety and maintaing NWB of LLE with good carry over. For stand to sit cues provided for reaching back for surface, extending LLE and eccentric control wtih good carry over. Transfer Exam: Sit to stand Level of Perry: Stand-by assist Physical/Nonphysical Assist: Verbal Cues Assistive Device: Walker, rolling Transfer Exam: Stand to Sit Level of Perry: Stand-by assist Physical/Nonphysical Assist: Verbal Cues Assistive [...] uses. Standardized Assessments Standardized Assessments Standardized Assessments: [facility] 6-Clicks Mobility Assessment [facility] 6-Clicks Mobility Assessment Difficulty patient [...] 3-5 steps with a railing?: A little [facility] 6-Clicks Mobility Assessment Total : 18 Assessment [...] a.m. 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 Prior Level of Function Receives Help From: No assist required prior to admission Level of Mobility: Ambulatory- community Mobility Perry: Independent gait without device History of Falls: [...] Mobility Bed Mobility Exam: Scooting/Bridging Level of Perry: Stand-by assist Physical/Nonphysical Assist: Verbal Cues Bed Mobility Exam: Supine to Sit Level of Perry: Stand-by assist Physical/Nonphysical Assist: Verbal Cues Bed Mobility Exam: Sit to Supine Level of Perry: Stand-by assist Physical/Nonphysical Assist: Verbal Cues Transfers Transfer Exam: Sit to stand Level of Perry: Stand-by assist Physical/Nonphysical Assist: Verbal Cues Assistive Device: Walker, rolling Transfer Exam: Stand to Sit Level of Perry: Stand-by assist Physical/Nonphysical Assist: Verbal Cues Assistive [...] Edited by: García Shepherd MD at 02/21/2025 0922 - Pain control: MMPC - Diet: regular [...] required Carolin Payan MD Orthopedic Surgery PGY-1 [facility] Cosigned by Lawrence Hayes MD at 02/24/2025 [...] Escalante MD Consult ordered by: Stella Brown, VOLUNTEER SPECIALIST Reason for consult: L tibial plateau ORIF [...] surgical site pain/swelling, erythema. Pt seen at [facility] where CT suggested L medial knee abscess [...] Tobacco: Active smoker ETOH: Denies DRUG ALLERGIES: [place] ALLERGIES: NKDA. MEDS: ABX: Daptomycin 02/21/2025 - [...] PRN, Goran Ty CRNA, 10 mg at 505268 oxyCODONE (Roxicodone) immediate release tablet 5 mg, [...] mL, 10 mL, Intravenous, PRN, Stella Brown, VOLUNTEER SPECIALIST SOCIAL HISTORY: As above. Otherwise reviewed and [...] tibial plateau fluid (op cx?) - NCC 57645 (PMN 98%); RBC 240K. GS - GPC. [...] LEFT lower leg. [facility] LEFT femoral shaft fracture, [...] surgical site pain/swelling, erythema. Pt seen at [facility] where CT suggested L medial knee abscess [...] Tobacco: Active smoker ETOH: Denies DRUG ALLERGIES: [place] RECOMMENDATIONS: Re: chronic LEFT tibial SSI, implant [...] abx therapy. For now, while inpatient at [facility], pending the above: Continue empiric, broad spectrum [...] PM EDT Operative Note Date: 02/21/25 Location: [facility] Name: Panda Machado, : 1990, Diagnoses: [...] available for all parts of the procedure Fire Eater(s): * García Shepherd MD - Resident - [...] No. SYNTHECURE SYNTHETIC CALCIUM SULFATE 10CC - [id number] Implanted Specimen: Specimens ID Source Frozen? A [...] also visualized and removed with a needle minibus driver. Cultures from the lateral wound were [...] Travel History: none Immunizations Not reviewed Allergies [place] Medications Current Medications[1] Objective Review of Systems [...] 98%. Results Review {Vanishing Link Review Results :[id number] I have reviewed the latest lab and [...] Date INCISION AND DRAINAGE, LEG Left 01/20/2025 ([facility]) INCISION AND DRAINAGE, LOWER EXTREMITY (Left: Leg Lower) KNEE SURGERY Left 01/18/2025 ([facility]) INCISION AND DRAINAGE, LOWER EXTREMITY (Left: Leg Lower) LEG SURGERY Left ERIKA NAIL IM RODDING Left 09/10/2024 ([facility]) INSERTION, INTRAMEDULLARY VICK, FEMUR (Left: Leg Upper) ORIF TIBIA FRACTURE Left 09/15/2023 ([facility]) ORIF, FRACTURE, TIBIA, PLATEAU (Left: Leg Lower) ORIF TIBIAL PLATEU FRACTURE Left 01/01/2025 ([facility]) ORIF, FRACTURE, TIBIA, PLATEAU (Left: Knee) ORTHOPEDIC SURGERY 09/06/2022 Had 4 other similar surgeries [1] Allergies Allergen Reactions [place] Hives [1] No current facility-administered medications for [...] card, photo ID, along with power of claims attorney, guardianship or advanced directives if applicable [...] Description 2025 7:50 AM EDT Office Visit [facility] Orthopaedic Surgery & Sports Medicine [address] [place] [address] Stella Brown, YUN [address] [place] [address] 2025 10:30 AM EDT Office Visit [facility] [address] [place] [phone] Santiago Escalante MD [address] [place] [phone] 03/27/2025 9:30 AM EDT Office Visit [address] [phone] Santiago Escalante MD [address] [place] [phone] Pending Results Name Type Priority Associated Diagnoses [...] left, closed, initial encounter Surgical site infection TX DRAIN LOWER LEG DEEP ABSC/HEMATOMA 02/21/2025 2:09 [...] - 99 mg/dL 02/24/2025 7:37 AM EDT [facility] BUN, Plasma 16 7 - 21 mg/dL 02/24/2025 7:37 AM EDT [facility] Creatinine, Plasma 0.89 0.70 - 1.20 mg/dL 02/24/2025 7:37 AM EDT [facility] BUN/Creatinine Ratio 18 02/24/2025 7:37 AM EDT [facility] Sodium, Plasma 137 136 - 145 mmol/L 02/24/2025 7:37 AM EDT [facility] Potassium, Plasma 4.6 3.6 - 4.9 mmol/L 02/24/2025 7:37 AM EDT [facility] Chloride, Plasma 101 97 - 107 mmol/L 02/24/2025 7:37 AM EDT [facility] CO2, Plasma 26 22 - 29 mmol/L 02/24/2025 7:37 AM EDT [facility] Anion Gap 10 6 - 16 mmol/L 02/24/2025 7:37 AM EDT [facility] Total Calcium, Plasma 9.2 8.9 - 10.2 mg/dL 02/24/2025 7:37 AM EDT [facility] eGFRcr 114.6 mL/min/1.7 3m*2 02/24/2025 7:37 AM EDT [facility] Comment:Reported eGFRcr in m L/min/1.73m2 is based the CKD-EPI 2020 equation that does not use a race coefficient. Blood Venous blood specimen / Unknown Venipuncture / Unknown 02/24/2025 7:04 AM EDT 02/24/2025 7:10 AM EDT us Lawrence Hayes MD LAB BLOOD ORDERABLES Final Re sult [facility] [address] [place] [address] * (ABNORMAL) Basic metabolic panel (02/22/2025 2:24 AM EDT) Glucose, Plasma 150(H) 74 - 99 mg/dL 02/22/2025 2:56 AM EDT [facility] BUN, Plasma 20 7 - 21 mg/dL 02/22/2025 2:56 AM EDT [facility] Creatinine, Plasma 0.98 0.70 - 1.20 mg/dL 02/22/2025 2:56 AM EDT [facility] BUN/Creatinine Ratio 20 02/22/2025 2:56 AM EDT [facility] Sodium, Plasma 138 136 - 145 mmol/L 02/22/2025 2:56 AM EDT [facility] Potassium, Plasma 5.2(H) 3.6 - 4.9 mmol/L 02/22/2025 2:56 AM EDT [facility] Chloride, Plasma 101 97 - 107 mmol/L 02/22/2025 2:56 AM EDT [facility] CO2, Plasma 25 22 - 29 mmol/L 02/22/2025 2:56 AM EDT [facility] Anion Gap 12 6 - 16 mmol/L 02/22/2025 2:56 AM EDT [facility] Total Calcium, Plasma 9.2 8.9 - 10.2 mg/dL 02/22/2025 2:56 AM EDT [facility] eGFRcr 103.1 mL/min/1.7 3m*2 02/22/2025 2:56 AM EDT [facility] Comment:Reported eGFRcr in m L/min/1.73m2 is based the CKD-EPI 2020 equation that does not use a race coefficient. Blood Venous blood specimen / Unknown Venipuncture / Unknown 02/22/2025 2:24 AM EDT 02/22/2025 2:28 AM EDT us Lawrence Hayes MD LAB BLOOD ORDERABLES Final Re sult [facility] [address] [place] [address] * (ABNORMAL) CBC (02/22/2025 2:24 AM EDT) [facility] Signature WBC Count 10.82(H) 3.70 - 10.30 10*3/uL LAB HEMATOLOGY METHOD 02/22/2025 2:36 AM EDT [facility] RBC Count 3.92(L) 4.60 - 6.10 10*6/uL LAB HEMATOLOGY METHOD 02/22/2025 2:36 AM EDT [facility] HGB 11.9(L) 13.7 - 17.5 g/dL LAB HEMATOLOGY METHOD 02/22/2025 2:36 AM EDT [facility] HCT 35.5(L) 40.0 - 51.0 % LAB HEMATOLOGY METHOD 02/22/2025 2:36 AM EDT [facility] Platelet Count 296 155 - 369 10*3/uL LAB HEMATOLOGY METHOD 02/22/2025 2:36 AM EDT [facility] MCV 91 79 - 98 fL LAB HEMATOLOGY METHOD 02/22/2025 2:36 AM EDT [facility] MCH 30.4 26.0 - 32.0 pg LAB HEMATOLOGY METHOD 02/22/2025 2:36 AM EDT [facility] MCHC 33.5 30.7 - 35.5 g/dL LAB HEMATOLOGY METHOD 02/22/2025 2:36 AM EDT [facility] RDW 12.9 11.5 - 14.5 % LAB HEMATOLOGY METHOD 02/22/2025 2:36 AM EDT [facility] MPV 9.6 8.8 - 12.5 fL LAB HEMATOLOGY METHOD 02/22/2025 2:36 AM EDT [facility] nRBC 0.0 <=0.0 per 100 WBCs LAB HEMATOLOGY METHOD 02/22/2025 2:36 AM EDT [facility] Blood Venous blood specimen / Unknown Venipuncture / Unknown 02/22/2025 2:24 AM EDT 02/22/2025 2:28 AM EDT us Lawrence Hayes MD LAB BLOOD ORDERABLES Final Re sult [facility] [address] [place] [address] * Multi Drug Resistance Test (02/21/2025 6:24 PM EDT) Culture No growth at day 1 02/22/2025 8:30 PM EDT [facility] Swab (Nares and Janeth Rectal) Non-blood Collection / Unknown 02/21/2025 6:24 PM EDT 02/21/2025 6:56 PM EDT Narrative [facility] - 02/22/2025 8:30 PM EDT This test was developed and its performance characteristics determined by the [facility]. Although the media is FDA-approved, it is not FDA-approved for all specimen types submitted. The FDA has determined that such clearance or approval is not necessary. This test is used for surveillance purposes. It should not be regarded as investigational or for research. The [facility] is certified under the Clinical Laboratory Improvement Amendments of 1988 (CLIA-88) as qualified to perform high complexity clinical laboratory testing. us Lawrence Hayes MD LAB MICROBIOLOGY - GENERAL OR DERABLES Final Result Performing Organization Address City/[facility]/ZIP Co de Phone Number [facility] [address] [place] [address] * Tissue Culture and Gram Stain (02/21/2025 3:14 PM EDT) Culture No growth at day 4 2024 2:36 PM EDT [facility] Gram Stain Result Rare Polymorphonuclear leukocytes 02/25/2025 2:36 PM EDT [facility] Gram Stain Result No organisms seen 02/25/2025 2:36 PM EDT [facility] Tissue Structure of left knee region / Unknown 02/21/2025 3:14 PM EDT 02/21/2025 4:40 PM EDT Comment:Pre-op diagnosis: Tibial plateau fracture, left, closed, initial encounter [S82.142A] Surgical site infection [T81.49XA] Lawrence Hayes MD LAB MICROBIOLOGY - GENERAL OR DERABLES Final Result Performing Organization Address City/[facility]/ZIP Co de Phone Number [facility] [address] [place] [address] * Anaerobic Culture (02/21/2025 3:14 PM EDT) Culture No growth at day 4 02/28/2025 12:46 PM EDT [facility] Tissue Structure of left knee region / Unknown 02/21/2025 3:14 PM EDT 02/21/2025 4:40 PM EDT Comment:Pre-op diagnosis: Tibial plateau fracture, left, closed, initial encounter [S82.142A] Surgical site infection [T81.49XA] Lawrence Hayes MD LAB MICROBIOLOGY - GENERAL OR DERABLES Final Result Performing Organization Address [facility] Co de Phone Number [address] [address] * [place] Less than 1 Hour Intraoperative (02/21/2025 3:00 PM EDT) Narrative IMAGING - 02/21/2025 5:00 PM EDT Images were obtained for surgical purposes. See Lawrence Hayes's surgical note in the patient's chart for the findings. Lawrence Hayes MD IMG FLUOROSCOPY PROCEDURES Fi nal Result Performing Organization Address [facility] Co de Phone Number IMAGING * (ABNORMAL) Tissue Culture and Gram Stain (02/21/2025 3:00 PM EDT) Culture 2+ Klebsiella pneumoniae(A) JOVANI 02/25/2025 2:52 PM EDT [facility] Comment: This isolate has been identified using the FDA Approved Firmexyper [place] System The organism value for this result has been updated. These results have been appended to the previously preliminary verified report. Edited result: Previously reported as Gram Negative Vick on 02/23/2025 at 0758 EDT. Culture 2+ Corynebacterium amycolatum(A) JOVANI 02/25/2025 2:52 PM EDT [facility] Comment: This isolate has been identified using the FDA Approved MALDI MOgeneyper [place] System The organism value for this result has been updated. These results have been appended to the previously preliminary verified report. Culture 2+ Eikenella corrodens(A) JOVANI 02/25/2025 2:52 PM EDT [facility] Comment: This isolate has been identified using the FDA Approved Firmexyper [place] System The organism value for this result has been updated. These results have been appended to the previously preliminary verified report. Culture 1+ Haemophilus haemolyticus(A) JOVANI 02/25/2025 2:52 PM EDT [facility] Comment: This isolate has been identified using the FDA Approved MALDI MOgeneyper [place] System The organism value for this result has been updated. These results have been appended to the previously preliminary verified report. Gram Stain Result Few Polymorphonuclear leukocytes 02/25/2025 2:52 PM EDT [facility] Gram Stain Result No organisms seen 02/25/2025 2:52 PM EDT [facility] Tissue Structure [...] OR DERABLES Final Result Performing Organization Address [facility] Co de Phone Number [address] [address] * Anaerobic Culture (02/21/2025 3:00 PM EDT) Pathologist [facility] Culture Mixed aerobic and anaerobic sherley 02/26/2025 8:03 AM EDT [facility] Tissue Structure of left knee region / Unknown 02/21/2025 3:00 PM EDT 02/21/2025 4:41 PM EDT Comment:Pre-op diagnosis: Tibial plateau fracture, left, closed, initial encounter [S82.142A] Surgical site infection [T81.49XA] Lawrence Hayes MD LAB MICROBIOLOGY - GENERAL OR DERABLES Final Result Performing Organization Address [facility] [place] [address] * (ABNORMAL) POCT glucose meter (02/21/2025 11:50 AM EDT) Pathologist [facility] POCT Glucose 108(H) 74 - 99 mg/dL [...] 02/21/2025 11:51 AM EDT [facility] Intensive Care Specialist ID Harvey Hernandez 02/22/20 11:51 AM EDT [facility] Device ID [id number] 02/21/2025 11:51 AM EDT [facility] Specimen Type POC Capillary 02/21/2025 11:51 AM EDT [facility] Blood Capillary blood specimen / Unknown 02/21/2025 11:50 AM EDT 02/21/2025 11:51 AM EDT us Lawrence Hayes MD LAB POINT OF CARE TE ST DOCKED DEVICE UNSOLICITED RESULTS Final Result Performing Organization Address [facility] Co de Phone Number [facility] [address] [place] [address] * Creatine Kinase (CK), Total (02/21/2025 11:43 AM EDT) Pathologist [facility] Creatine Kinase, Plasma 74 49 - 320 U/L 02/21/2025 5:45 PM EDT [facility] Blood Venous blood specimen / Unknown Venipuncture / Unknown 02/21/2025 11:43 AM EDT 02/21/2025 11:57 AM EDT us Stellamarie Brown APRN LAB BLOOD ORDERABLES Final Result Performing Organization Address [facility] de Phone Number [facility] [address] [place] [address] * Type and screen (02/21/2025 11:43 AM EDT) Pathologist [facility] ABO/Rh A Positive 02/21/2025 11:33 AM EDT BLOOD BANK Antibody Screen Negative 02/21/2025 11:33 AM EDT BLOOD BANK Specimen Expiration 02/24/2025 23:59 02/21/2025 11:33 AM EDT BLOOD BANK Blood Venous blood specimen / Unknown Venipuncture / Unknown 02/21/2025 11:43 AM EDT 02/21/2025 11:54 AM EDT us Stella Brown APRN LAB BLOOD BANK TEST ORDERA BLES Final Result Performing Organization Address [facility] Co de Phone Number BLOOD BANK [address] [place] [address], * Protime-INR (02/21/2025 11:43 AM EDT) Pathologist [facility] Prothrombin Time 13.6 12.0 - 14.3 sec LAB COAGULATION METHOD 02/21/2025 12:35 PM EDT [facility] INR 1.0 0.9 - 1.1 LAB COAGULATION METHOD 02/21/2025 12:35 PM EDT [facility] Blood Venous blood specimen / Unknown Venipuncture / Unknown 02/21/2025 11:43 AM EDT 02/21/2025 11:57 AM EDT Narrative [facility] - 02/21/2025 12:35 PM EDT OPTIMAL INR RANGES FOR PATIENT ON ORAL ANTICOAGULANT THERAPY Prevention of venous thromboembolism INR 2.0 to 3.0 In patients with heart disease: Atrial fibrillation INR 2.0 to 3.0 Valvular heart disease INR 2.0 to 3.0 Tissue heart valves INR 2.0 to 3.0 Mechanical prosthetic valves INR 2.5 to 3.5 Prevention of recurrent [place] INR 2.5 to 3.5 us Stella Brown VOLUNTEER SPECIALIST LAB BLOOD ORDERABLES Final Result [facility] [address] [place] [address] * (ABNORMAL) Basic Metabolic Panel, Plasma (02/21/2025 11:43 AM EDT) Glucose, Plasma 101(H) 74 - 99 mg/dL 02/21/2025 12:29 PM EDT [facility] BUN, Plasma 12 7 - 21 mg/dL 02/21/2025 12:29 PM EDT [facility] Creatinine, Plasma 0.79 0.70 - 1.20 mg/dL 02/21/2025 12:29 PM EDT [facility] BUN/Creatinine Ratio 15 02/21/2025 12:29 PM EDT [facility] Sodium, Plasma 138 136 - 145 mmol/L 02/21/2025 12:29 PM EDT [facility] Potassium, Plasma 4.2 3.6 - 4.9 mmol/L 02/21/2025 12:29 PM EDT [facility] Chloride, Plasma 102 97 - 107 mmol/L 02/21/2025 12:29 PM EDT [facility] CO2, Plasma 23 22 - 29 mmol/L 02/21/2025 12:29 PM EDT [facility] Anion Gap 13 6 - 16 mmol/L 02/21/2025 12:29 PM EDT [facility] Total Calcium, Plasma 9.3 8.9 - 10.2 mg/dL 02/21/2025 12:29 PM EDT [facility] eGFRcr 118.8 mL/min/1.7 3m*2 02/21/2025 12:29 PM EDT [facility] Comment:Reported eGFRcr in m L/min/1.73m2 is based the CKD-EPI 2020 equation that does not use a race coefficient. Blood Venous blood specimen / Unknown Venipuncture / Unknown 02/21/2025 11:43 AM EDT 02/21/2025 11:57 AM EDT us Stella Brown VOLUNTEER SPECIALIST LAB BLOOD ORDERABLES Final Result [facility] [address] [place] [address] * (ABNORMAL) CBC and Differential (02/21/2025 11:43 AM EDT) WBC Count 9.14 3.70 - 10.30 10*3/uL LAB HEMATOLOGY METHOD 02/21/2025 12:09 PM EDT [facility] RBC Count 4.18(L) 4.60 - 6.10 10*6/uL LAB HEMATOLOGY METHOD 02/21/2025 12:09 PM EDT [facility] HGB 12.6(L) 13.7 - 17.5 g/dL LAB HEMATOLOGY METHOD 02/21/2025 12:09 PM EDT [facility] HCT 37.8(L) 40.0 - 51.0 % LAB HEMATOLOGY METHOD 02/21/2025 12:09 PM EDT [facility] Platelet Count 298 155 - 369 10*3/uL LAB HEMATOLOGY METHOD 02/21/2025 12:09 PM EDT [facility] MCV 90 79 - 98 fL LAB HEMATOLOGY METHOD 02/21/2025 12:09 PM EDT [facility] MCH 30.1 26.0 - 32.0 pg LAB HEMATOLOGY METHOD 02/21/2025 12:09 PM EDT [facility] MCHC 33.3 30.7 - 35.5 g/dL LAB HEMATOLOGY METHOD 02/21/2025 12:09 PM EDT [facility] RDW 13.2 11.5 - 14.5 % LAB HEMATOLOGY METHOD 02/21/2025 12:09 PM EDT [facility] MPV 9.5 8.8 - 12.5 fL LAB HEMATOLOGY METHOD 02/21/2025 12:09 PM EDT [facility] nRBC 0.0 <=0.0 per 100 WBCs LAB HEMATOLOGY METHOD 02/21/2025 12:09 PM EDT [facility] Differential Type Automated LAB HEMATOLOGY METHOD 02/21/2025 12:09 PM EDT [facility] Neutrophils % 60 % LAB HEMATOLOGY METHOD 02/21/2025 12:09 PM EDT [facility] Lymphocytes % 31 % LAB HEMATOLOGY METHOD 02/21/2025 12:09 PM EDT [facility] Monocytes % 7 % LAB HEMATOLOGY METHOD 02/21/2025 12:09 PM EDT [facility] Eosinophils % 2 % LAB HEMATOLOGY METHOD 02/21/2025 12:09 PM EDT [facility] Basophils % 0 % LAB HEMATOLOGY METHOD 02/21/2025 12:09 PM EDT [facility] Immature Granulocytes % 0 % LAB HEMATOLOGY METHOD 02/21/2025 12:09 PM EDT [facility] Neutrophils Absolute 5.37 1.60 - 6.10 10*3/uL LAB HEMATOLOGY METHOD 02/21/2025 12:09 PM EDT [facility] Lymphocytes Absolute 2.86 1.20 - 3.90 10*3/uL LAB HEMATOLOGY METHOD 02/21/2025 12:09 PM EDT [facility] Monocytes Absolute 0.65 0.30 - 0.90 10*3/uL LAB HEMATOLOGY METHOD 02/21/2025 12:09 PM EDT [facility] Eosinophils Absolute 0.18 0.00 - 0.50 10*3/uL LAB HEMATOLOGY METHOD 02/21/2025 12:09 PM EDT [facility] Basophils Absolute 0.04 0.00 - 0.10 10*3/uL LAB HEMATOLOGY METHOD 02/21/2025 12:09 PM EDT [facility] Immature Granulocytes Absolute 0.04 0.00 - 0.06 10*3/uL LAB HEMATOLOGY METHOD 02/21/2025 12:09 PM EDT [facility] Blood Venous blood specimen / Unknown Venipuncture / Unknown 02/21/2025 11:43 AM EDT 02/21/2025 11:59 AM EDT Narrative [facility] - 02/21/2025 12:09 PM EDT Therapeutic decision making should be based on absolute values, rather than percentages. us Stella Brown VOLUNTEER SPECIALIST LAB BLOOD ORDERABLES Final Result [facility] [address] [place] [address] documented in this encounter Visit Diagnoses Diagnosis [...] documented as of this encounter Care Teams Educational Administrator Relationship Specialty Start Date End Date Blaine Nava MD [address] [place] [address] #1 #1 JOHN Miller [id number] PCP - General 02/17/25 documented as of this encounter
--- OUTSIDE RECORDS SUMMARY | 2025-02-21 12:00 | XMS_ITS | Encounter Summary ---
Author Organization Healthcare Address [address] [place] [address] Care Team Providers Care Social Services Director Name Role Phone Blaine Nava MD Primary Care Provider [phone] Reason for Visit * Auth/Cert (Routine) Specialty Diagnoses / Procedures Referred By Adalid t Referred To Contact Diagnoses Tibial plateau fracture, left, closed, initial encounter Surgical site infection Tibial plateau fracture, left, closed, initial encounter [S82.142A] Surgical site infection [T81.49XA] Procedures MN DRAIN LOWER LEG DEEP ABSC/HEMATOMA INCISION AND DRAINAGE, LOWER EXTREMITY Lawrence Hayes MD [address] [address] Phone: tel: fax: [facility] [address] [place] [address] Phone: tel: Referral ID Status Reason Start Date Expiration Date Visits Re quested Visits Authorized [id number] 1 1 Encounter Details Date Type Department Care Team (Late st Contact Info) Description 02/21/2025 12:00 PM EDT - 02/21/2025 1:30 PM EDT Surgery [facility] [address] [place] [address] Lawrence Hayes MD [address] [address] INCISION AND DRAINAGE, LOWER EXTREMITY & removal of hardware - placement of ABX beads [64528 (CPT )] Surgery Details Date/Time Status Location [...] time in the past 12 m [place], were you homeless or living in a [...] drink first t traci in 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 798 Narcan Nasal [place]: Rescue Guide for Opioid Overdose Step 1 [...] controlled substances: ?? Drug Enforcement Agency (EDMUNDO): http://www.deadiversion.Pleyoj.gov/drug_disposal/takeback/index.htm ?? National Association of Drug Diversion Investigators [...] from the original note were not included. [address] * Adrienne Perez - 02/24/2025 4:03 PM [...] house or a medical facility. The case technician/social sciences lecturer will setthat up based on your insurance. [...] or during weekends/ holidays, call the paging combat systems operator at . Ask forthe infectious disease fellow regional director. Call the clinic if you have any of these: ?? Fevers greater than 100.5??F ?? An allergic reaction, such as rash ?? Nausea, vomiting, or diarrhea ?? New or returning redness near the IV line ?? Redness, pain, swelling, or pus around the IV line * [facility] Adrienne In[facility] - 02/24/2025 4:03 PM [...] of your leg. This is also called ?Mudhcd-yi-Cpp Weight Bearing,? ?Toe-Touch Weight Bearing,? or ?Foot-Flat [...] thoroughly. Use soap and water or hand hander in and wear gloves before touching the PICC [...] them before you flush the line or distribution district supervisor fluids or medicines. Avoid hard physical [...] infection, call your doctor rightaway. * Rosaura [facility] - Adrienne Inman - 02/24/2025 4:02 PM EDT Images from the original note were not included. [address]7469 Preventing a Surgical Site Infection A risk [...] of infection. ?? Controlled body temperature. A apzif-nord-cscssx temperature during or after surgery prevents oxygen [...] and water or with an alcohol-based hand hander in before and after caring for you. Don?t [...] away. Last Reviewed Date: 2024 00:00:00 ?? [id number] [employer]. All rights reserved. This information is not intended as a substitute for professional medical care. Always follow your healthcare professional's instructions. * Discharge Summary - Sushil Lea MD - 02/24/2025 3:48 PM EDT Hospitalization Admit Date/Time: 02/21/2025 9:35 AM Admitting Attending: Lawrence Hayes Discharge Date: 02/24/2025 Discharge Attending Physician: Lawrence Hayes MD PCP name and Address: Blaine Nava MD [address] [place], [place] [address] #1 / [facility] [address] Referring provider name and address: No referring [...] medications were sent to [facility] [address], [facility] [address] cefTRIAXone 1 g reconstituted solution DAPTOmycin injection [...] Department Center 2025 7:50 AM Stella Brown, MULTIMEDIA COORDINATOR [facility] 2025 10:30 AM Santiago Escalante MD [...] [facility] Orthopaedic Trauma Service Pager: [phone] Orthopaedic Recon/Spine/Foot and Ankle Service Pager: [phone] Personal Pager: [phone] Cosigned by Lawrence Hayes MD at 02/26/2025 [...] WEEK 5 FOLLOWUP: 03/27/2025, 0930AM at [address] [facility] [address] (Select Option 3 for IV Antibiotic / PICC line related issues) All questions regarding outpatient parenteral antimicrobials after discharge should be directed to the OPAT nurse navigator at (Select Option 3 for IV Antibiotics/PICC Issues) between 8am-5pm. After 5 pm, or during weekends/ holidays, please call the paging combat systems operator at to reach the on-call ID fellow. PLEASE NOTIFY THE ID CONSULTING SERVICE OF ANY QUESTIONS REGARDING THESE RECOMMENDATIONS OR WITH ANY ANTIMICROBIAL CHANGES THAT OCCUR AFTER THE DATE/TIME OF THIS OPAT INTAKE NOTE. * Progress Notes - Anna Elam RN - 02/24/2025 11:03 AM EDT Case Management Adult Initial Progress Note Panda Machado 34 y.o. male CSN: [id number] Admission: 02/21/2025 9:35 AM Primary Problem: Surgical site infection Sales Enablement Manager reviewed chart and spoke with patient to complete this Initial Case Management Assessment. PCP: Blaine Nava MD Emergency Contact: Extended Emergency Contact Information Primary Emergency Contact: Hayley Buenrostro Address: [address] [place] [address] Mobile Relation: Significant Other Preferred language: Kyrgyz Cloth Carrier needed? No Secondary Emergency Contact: Jenny Buenrostro Address: [address] [place] [address] Mobile Relation: Mother Insurance: Primary Visit Coverage Payer Plan Sponsor Code Group Number Group Name [employer] MEDICAID VELAZQUEZ [employer] VELAZ[employer]Z MEDICAID Primary Visit Coverage Subscriber Subscriber ID Subscriber Name Subscriber SSN Subscriber Address [id number] PANDA MACHADO [id number] [place] [address] Patient information: Primary Caregiver: Self Support System: Immediate family Daily Living Activities: Functional Status: Independent Living Arrangements: Spouse/Significant other, Children Type of Residence: Private residence, Single Level [address] [place] [address] Angela LOPEZ [address] Smoker in the Home?: Yes Current DME: [...] DME Provider: Rajesh Living Will/Advance Directive/Power of Foundry Equipment Mechanic /Guardian: Unable to assess: No Have you [...] Rajesh today. [facility] for PICC dressing changes and labs and was agreeable to continue receiving care there. CM will send orders when they are available. Pt stated he lives with his and two children. His can provide assistance and transportation. Pt is unemployed and meets 300% FPG. CM will continue to assist with discharge POC. [facility] Dqopy-[phone] [phone] Update: Final ID recs have been placed and standard OPAT approved. Rajesh will complete teaching and deliver ABX to bedside around 5 PM today. Orders were faxed to [facility]. Infusion center will call pt to schedule [...] 10 mg/kg (Adjusted), Intravenous, q24h, Stella Brown, MULTIMEDIA COORDINATOR, Last Rate: 264 mL/hr at 02/23/252056, 1,100 [...] tibial plateau fluid (op cx?) - NCC 20628 (PMN 98%); RBC 240K. GS - GPC. [...] LEFT lower leg. [facility] LEFT femoral shaft [...] surgical site pain/swelling, erythema. Pt seen at [facility] where CT suggested L medial knee abscess [...] Tobacco: Active smoker ETOH: Denies DRUG ALLERGIES: Henderson RECOMMENDATIONS: Re: chronic LEFT tibial SSI, implant [...] abx therapy. For now, while inpatient at [facility] Daptomycin 8-10mg/kg IV q24h as [...] appointment in order to complete registration paperwork.) [facility] (Infectious Diseases Clinic) [address] [place] [address] CORNCOB PIPE SUPERVISOR: . FAX: [facility] Consult [...] culture results and antibiotic plan -- Annamaria Rmoero MD Orthopaedic Surgery PGY-1 [facility] Orthopaedic Trauma Service Pager: [phone] Orthopaedic Recon/Spine/Foot and Ankle Service Pager: [phone] Cosigned by Lawrence Hayes MD at 02/26/2025 [...] Flowsheets (Taken 02/23/2025 0058 by Shelley Rodas, RN) Readmission Within the Last 30 Days: [...] Intervention: Identify and Manage Contributors 02/23/20251915 by Csomo Traylor RN Flowsheets (Taken 02/21/20251939 by Shelley [...] session. 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 Prior Level of Function Receives Help From: No assist required prior to admission Level of Mobility: Ambulatory- community Mobility One[place]: Independent gait without device History of Falls: [...] Mobility Exam: Supine to Sit Level of One[place]: Stand-by assist Physical/Nonphysical Assist: Verbal Cues Bed Mobility Exam: Sit to Supine Level of One[place]: Stand-by assist Physical/Nonphysical Assist: Verbal Cues Transfers Transfer Interventions: Pt completed a sit to stand transfer with SBA and min cues for safety and maintaing NWB of LLE with good carry over. For stand to sit cues provided for reaching back for surface, extending LLE and eccentric control wtih good carry over. Transfer Exam: Sit to stand Level of Oneida: Stand-by assist Physical/Nonphysical Assist: Verbal Cues Assistive Device: Walker, rolling Transfer Exam: Stand to Sit Level of Oneida: Stand-by assist Physical/Nonphysical Assist: Verbal Cues Assistive [...] uses. Standardized Assessments Standardized Assessments Standardized Assessments: [facility] 6-Clicks Mobility Assessment [facility] 6-Clicks Mobility Assessment Difficulty patient [...] 3-5 steps with a railing?: A little [facility] 6-Clicks Mobility Assessment Total : 18 [...] a.m. 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 Prior Level of Function Receives Help From: No assist required prior to admission Level of Mobility: Ambulatory- community Mobility Oneida: Independent gait without device History of Falls: [...] Mobility Bed Mobility Exam: Scooting/Bridging Level of Oneida: Stand-by assist Physical/Nonphysical Assist: Verbal Cues Bed Mobility Exam: Supine to Sit Level of One[place]: Stand-by assist Physical/Nonphysical Assist: Verbal Cues Bed Mobility Exam: Sit to Supine Level of One[place]: Stand-by assist Physical/Nonphysical Assist: Verbal Cues Transfers Transfer Exam: Sit to stand Level of One[place]: Stand-by assist Physical/Nonphysical Assist: Verbal Cues Assistive Device: Walker, rolling Transfer Exam: Stand to Sit Level of One[place]: Stand-by assist Physical/Nonphysical Assist: Verbal Cues Assistive [...] Edited by: García Shepherd MD at 02/21/2025 6717 - Pain control: MMPC - Diet: regular [...] Escalante MD Consult ordered by: Stella Brown, MULTIMEDIA COORDINATOR Reason for consult: L tibial plateau ORIF [...] surgical site pain/swelling, erythema. Pt seen at [facility] where CT suggested L medial knee abscess [...] Tobacco: Active smoker ETOH: Denies DRUG ALLERGIES: Henderson ALLERGIES: NKDA. MEDS: ABX: Daptomycin 02/21/2025 - [...] mL, 10 mL, Intravenous, PRN, Stella Brown, MULTIMEDIA COORDINATOR SOCIAL HISTORY: As above. Otherwise reviewed and [...] tibial plateau fluid (op cx?) - NCC 74569 (PMN 98%); RBC 240K. GS - GPC. [...] surgical site pain/swelling, erythema. Pt seen at [facility] where CT suggested L medial knee abscess [...] Tobacco: Active smoker ETOH: Denies DRUG ALLERGIES: Henderson RECOMMENDATIONS: Re: chronic LEFT tibial SSI, implant [...] abx therapy. For now, while inpatient at [facility], pending the above: Continue empiric, [...] PM EDT Operative Note Date: 02/21/25 Location: [facility] Name: Panda Machado, : 1990, Diagnoses: [...] available for all parts of the procedure Ornamental Plaster Sticker(s): * García Shepherd MD - Resident - [...] No. SYNTHECURE SYNTHETIC CALCIUM SULFATE 10CC - [id number] Implanted Specimen: Specimens ID Source Frozen? A [...] visualized and removed with a needle warehouse driver. Cultures from the lateral wound were [...] Travel History: none Immunizations Not reviewed Allergies Henderson Medications Current Medications[1] Objective Review of Systems [...] 98%. Results Review {Vanishing Link Review Results :[id number] I have reviewed the latest lab and [...] Date INCISION AND DRAINAGE, LEG Left 01/20/2025 ([facility]) INCISION AND DRAINAGE, LOWER EXTREMITY (Left: Leg Lower) KNEE SURGERY Left 01/18/2025 ([facility]) INCISION AND DRAINAGE, LOWER EXTREMITY (Left: Leg Lower) LEG SURGERY Left ERIKA NAIL IM RODDING Left 09/10/2024 ([facility]) INSERTION, INTRAMEDULLARY VICK, FEMUR (Left: Leg Upper) ORIF TIBIA FRACTURE Left 09/15/2023 ([facility]) ORIF, FRACTURE, TIBIA, PLATEAU (Left: Leg Lower) ORIF TIBIAL PLATEU FRACTURE Left 01/01/2025 ([facility]) ORIF, FRACTURE, TIBIA, PLATEAU (Left: Knee) ORTHOPEDIC SURGERY 09/06/2022 Had 4 other similar surgeries [1] Allergies Allergen Reactions Henderson Hives [1] No current facility-administered medications for [...] card, photo ID, along with power of tire balancer, guardianship or advanced directives if applicable Do [...] Description 2025 7:50 AM EDT Office Visit [facility] Orthopaedic Surgery & Sports Medicine [address] [place] [address] Stella Brown N, MULTIMEDIA COORDINATOR [address] [place] [address] 2025 10:30 AM EDT Office Visit [facility] [address] [place] [address] [place] [address] [place] [address] [address] [place] [address] 03/27/2025 9:30 AM EDT Office Visit [facility] [address] [place] [address] Santiago Escalante MD [address] [place] [address] [address] [place] [address] Pending Results Name Type Priority [...] left, closed, initial encounter Surgical site infection MN DRAIN LOWER LEG DEEP ABSC/HEMATOMA 02/21/2025 2:09 [...] Basic metabolic panel (02/24/2025 7:04 AM EDT) [facility] Glucose, Plasma 91 74 - 99 mg/dL 02/24/2025 7:37 AM EDT [facility] BUN, Plasma 16 7 - 21 mg/dL 02/24/2025 7:37 AM EDT [facility] Creatinine, Plasma 0.89 0.70 - 1.20 mg/dL 02/24/2025 7:37 AM EDT [facility] BUN/Creatinine Ratio 18 02/24/2025 7:37 AM EDT [facility] Sodium, Plasma 137 136 - 145 mmol/L 02/24/2025 7:37 AM EDT [facility] Potassium, Plasma 4.6 3.6 - 4.9 mmol/L 02/24/2025 7:37 AM EDT [facility] Chloride, Plasma 101 97 - 107 mmol/L 02/24/2025 7:37 AM EDT [facility] CO2, Plasma 26 22 - 29 mmol/L 02/24/2025 7:37 AM EDT [facility] Anion Gap 10 6 - 16 mmol/L 02/24/2025 7:37 AM EDT [facility] Total Calcium, Plasma 9.2 8.9 - 10.2 mg/dL 02/24/2025 7:37 AM EDT [facility] eGFRcr 114.6 mL/min/1.7 3m*2 02/24/2025 7:37 AM EDT [facility] Comment:Reported eGFRcr in m L/min/1.73m2 is based the CKD-EPI 2020 equation that does not use a race coefficient. Blood Venous blood specimen / Unknown Venipuncture / Unknown 02/24/2025 7:04 AM EDT 02/24/2025 7:10 AM EDT us Lawrence Hayes MD LAB BLOOD ORDERABLES Final Re sult [facility] [address] [place] [address] * (ABNORMAL) Basic metabolic panel (02/22/2025 2:24 AM EDT) Pathologist [facility] Glucose, Plasma 150(H) 74 - 99 mg/dL 02/22/2025 2:56 AM EDT [facility] BUN, Plasma 20 7 - 21 mg/dL 02/22/2025 2:56 AM EDT [facility] Creatinine, Plasma 0.98 0.70 - 1.20 mg/dL 02/22/2025 2:56 AM EDT [facility] BUN/Creatinine Ratio 20 02/22/2025 2:56 AM EDT [facility] Sodium, Plasma 138 136 - 145 mmol/L 02/22/2025 2:56 AM EDT [facility] Potassium, Plasma 5.2(H) 3.6 - 4.9 mmol/L 02/22/2025 2:56 AM EDT [facility] Chloride, Plasma 101 97 - 107 mmol/L 02/22/2025 2:56 AM EDT [facility] CO2, Plasma 25 22 - 29 mmol/L 02/22/2025 2:56 AM EDT [facility] Anion Gap 12 6 - 16 mmol/L 02/22/2025 2:56 AM EDT [facility] Total Calcium, Plasma 9.2 8.9 - 10.2 mg/dL 02/22/2025 2:56 AM EDT [facility] eGFRcr 103.1 mL/min/1.7 3m*2 02/22/2025 2:56 AM EDT [facility] Comment:Reported eGFRcr in m L/min/1.73m2 is based the CKD-EPI 2020 equation that does not use a race coefficient. Blood Venous blood specimen / Unknown Venipuncture / Unknown 02/22/2025 2:24 AM EDT 02/22/2025 2:28 AM EDT us Lawrence Hayes MD LAB BLOOD ORDERABLES Final Re sult [facility] [address] [place] [address] * (ABNORMAL) CBC (02/22/2025 2:24 AM EDT) WBC Count 10.82(H) 3.70 - 10.30 10*3/uL LAB HEMATOLOGY METHOD 02/22/2025 2:36 AM EDT [facility] RBC Count 3.92(L) 4.60 - 6.10 10*6/uL LAB HEMATOLOGY METHOD 02/22/2025 2:36 AM EDT [facility] HGB 11.9(L) 13.7 - 17.5 g/dL LAB HEMATOLOGY METHOD 02/22/2025 2:36 AM EDT [facility] HCT 35.5(L) 40.0 - 51.0 % LAB HEMATOLOGY METHOD 02/22/2025 2:36 AM EDT [facility] Platelet Count 296 155 - 369 10*3/uL LAB HEMATOLOGY METHOD 02/22/2025 2:36 AM EDT [facility] MCV 91 79 - 98 fL LAB HEMATOLOGY METHOD 02/22/2025 2:36 AM EDT [facility] MCH 30.4 26.0 - 32.0 pg LAB HEMATOLOGY METHOD 02/22/2025 2:36 AM EDT [facility] MCHC 33.5 30.7 - 35.5 g/dL LAB HEMATOLOGY METHOD 02/22/2025 2:36 AM EDT [facility] RDW 12.9 11.5 - 14.5 % LAB HEMATOLOGY METHOD 02/22/2025 2:36 AM EDT [facility] MPV 9.6 8.8 - 12.5 fL LAB HEMATOLOGY METHOD 02/22/2025 2:36 AM EDT [facility] nRBC 0.0 <=0.0 per 100 WBCs LAB HEMATOLOGY METHOD 02/22/2025 2:36 AM EDT [facility] Blood Venous blood specimen / Unknown Venipuncture / Unknown 02/22/2025 2:24 AM EDT 02/22/2025 2:28 AM EDT Lawrence Hayes MD LAB BLOOD ORDERABLES Final Re sult Performing Organization Address [facility]/ZIP Co de Phone Number [facility] [address] [place] [address] * Multi Drug Resistance Test (02/21/2025 6:24 PM EDT) Culture No growth at day 1 02/22/2025 8:30 PM EDT [facility] Swab (Nares and Janeth Rectal) Non-blood Collection / Unknown 02/21/2025 6:24 PM EDT 02/21/2025 6:56 PM EDT Narrative [facility] - 02/22/2025 8:30 PM [...] OR DERABLES Final Result Performing Organization Address [facility] Co de Phone Number [facility] [address] [place] [address] * Tissue Culture and Gram Stain (02/21/2025 3:14 PM EDT) Culture No growth at day 4 2024 2:36 PM EDT [facility] Gram Stain Result Rare Polymorphonuclear leukocytes 02/25/2025 2:36 PM EDT [facility] Gram Stain Result No organisms seen 02/25/2025 2:36 PM EDT [facility] Tissue Structure of left knee region / Unknown 02/21/2025 3:14 PM EDT 02/21/2025 4:40 PM EDT Comment:Pre-op diagnosis: Tibial plateau fracture, left, closed, initial encounter [S82.142A] Surgical site infection [T81.49XA] Result [facility] Lawrence Hayes MD LAB MICROBIOLOGY - GENERAL OR DERABLES Final Result Performing Organization Address [facility] de Phone Number [facility] [address] [place] [address] * Anaerobic Culture (02/21/2025 3:14 PM EDT) Culture No growth at day 4 02/28/2025 12:46 PM EDT [facility] Tissue Structure of left knee region / Unknown 02/21/2025 3:14 PM EDT 02/21/2025 4:40 PM EDT Comment:Pre-op diagnosis: Tibial plateau fracture, left, closed, initial encounter [S82.142A] Surgical site infection [T81.49XA] Result [facility] Lawrence Hayes MD LAB MICROBIOLOGY - GENERAL OR DERABLES Final Result Performing Organization Address [facility] de Phone Number [facility] [address] [place] [address] * FL Less than 1 Hour Intraoperative (02/21/2025 3:00 PM EDT) Narrative IMAGING - 02/21/2025 5:00 PM EDT Images were obtained for surgical purposes. See Lawrence Hayes's surgical note in the patient's chart for the findings. Result [facility] Lawrence Hayes MD IMG FLUOROSCOPY PROCEDURES Fi nal Result Performing Organization Address [facility] de Phone Number IMAGING * (ABNORMAL) Tissue Culture and Gram Stain (02/21/2025 3:00 PM EDT) Culture 2+ Klebsiella pneumoniae(A) JOVANI 02/25/2025 2:52 PM EDT [facility] Comment: This isolate has been identified using the FDA Approved [employer] [place] System The organism value for this result has been updated. These results have been appended to the previously preliminary verified report. Edited result: Previously reported as Gram Negative Vick on 02/23/2025 at 0758 EDT. Culture 2+ Corynebacterium amycolatum(A) JOVANI 02/25/2025 2:52 PM EDT [facility] Comment: This isolate has been identified using the FDA Approved [employer] [place] System The organism value for this result has been updated. These results have been appended to the previously preliminary verified report. Culture 2+ Eikenella corrodens(A) JOVANI 02/25/2025 2:52 PM EDT [facility] Comment: This isolate has been identified using the FDA Approved [employer] [place] System The organism value for this result has been updated. These results have been appended to the previously preliminary verified report. Culture 1+ Haemophilus haemolyticus(A) JOVANI 02/25/2025 2:52 PM EDT [facility] Comment: This isolate has been identified using the FDA Approved [employer] [place] System The organism value for this result has been updated. These results have been appended to the previously preliminary verified report. Gram Stain Result Few Polymorphonuclear leukocytes 02/25/2025 2:52 PM EDT [facility] Gram Stain Result No organisms seen 02/25/2025 2:52 PM EDT [facility] Tissue Structure of left [...] OR DERABLES Final Result Performing Organization Address [facility] de Phone Number [facility] [address] [place] [address] * Anaerobic Culture (02/21/2025 3:00 PM EDT) [facility] Culture Mixed aerobic and anaerobic sherley 02/26/2025 8:03 AM EDT [facility] Tissue Structure of left knee region / Unknown 02/21/2025 3:00 PM EDT 02/21/2025 4:41 PM EDT Comment:Pre-op diagnosis: Tibial plateau fracture, left, closed, initial encounter [S82.142A] Surgical site infection [T81.49XA] Lawrence Hayes MD LAB MICROBIOLOGY - GENERAL OR DERABLES Final Result Performing Organization Address [facility] de Phone Number [address] [address] * (ABNORMAL) POCT glucose meter (02/21/2025 11:50 AM EDT) [facility] POCT Glucose 108(H) 74 - 99 mg/dL 02/21/2025 11:51 AM EDT [facility] Comment:Accuracy of a glucos e result [...] 02/21/2025 11:51 AM EDT [facility] [employer] Carrier Maintenance Inspector ID Harvey Hernandez 02/22/20 11:51 AM EDT [facility] Device ID [id number] 02/21/2025 11:51 AM EDT [facility] Specimen Type POC Capillary 02/21/2025 11:51 AM EDT [facility] Blood Capillary blood specimen / Unknown 02/21/2025 11:50 AM EDT 02/21/2025 11:51 AM EDT us Lawrence Hayes MD LAB POINT OF CARE TE ST DOCKED DEVICE UNSOLICITED RESULTS Final Result [facility] [address] [place] [address] * Creatine Kinase (CK), Total (02/21/2025 11:43 AM EDT) Pathologist [facility] Creatine Kinase, Plasma 74 49 - 320 U/L 02/21/2025 5:45 PM EDT [facility] Blood Venous blood specimen / Unknown Venipuncture / Unknown 02/21/2025 11:43 AM EDT 02/21/2025 11:57 AM EDT us Stella N Kevin MULTIMEDIA COORDINATOR LAB BLOOD ORDERABLES Final Result Performing Organization Address City/[facility]/[place] [address] * Type and screen (02/21/2025 11:43 AM EDT) ABO/Rh A Positive 02/21/2025 11:33 AM EDT [facility] Antibody Screen Negative 02/21/2025 11:33 AM EDT [facility] Specimen Expiration 02/24/2025 23:59 02/21/2025 11:33 AM EDT [facility] Blood Venous blood specimen / Unknown Venipuncture / Unknown 02/21/2025 11:43 AM EDT 02/21/2025 11:54 AM EDT us Stella N Kevin MULTIMEDIA COORDINATOR LAB BLOOD BANK TEST ORDERA BLES Final Result Performing Organization Address City/[facility]/ZIP Co de Phone Number BLOOD BANK [address] [place] [address], * Protime-INR (02/21/2025 11:43 AM EDT) Prothrombin Time 13.6 12.0 - 14.3 sec LAB COAGULATION METHOD 02/21/2025 12:35 PM EDT [facility] INR 1.0 0.9 - 1.1 LAB COAGULATION METHOD 02/21/2025 12:35 PM EDT [facility] Blood Venous blood specimen / Unknown Venipuncture / Unknown 02/21/2025 11:43 AM EDT 02/21/2025 11:57 AM EDT Narrative [facility] - 02/21/2025 12:35 PM [...] INR 2.5 to 3.5 us Stella Brown MULTIMEDIA COORDINATOR LAB BLOOD ORDERABLES Final Result [facility] [address] [place] [address] * (ABNORMAL) Basic Metabolic Panel, Plasma (02/21/2025 11:43 AM EDT) Glucose, Plasma 101(H) 74 - 99 mg/dL 02/21/2025 12:29 PM EDT [facility] BUN, Plasma 12 7 - 21 mg/dL 02/21/2025 12:29 PM EDT [facility] Creatinine, Plasma 0.79 0.70 - 1.20 mg/dL 02/21/2025 12:29 PM EDT [facility] BUN/Creatinine Ratio 15 02/21/2025 12:29 PM EDT [facility] Sodium, Plasma 138 136 - 145 mmol/L 02/21/2025 12:29 PM EDT [facility] Potassium, Plasma 4.2 3.6 - 4.9 mmol/L 02/21/2025 12:29 PM EDT [facility] Chloride, Plasma 102 97 - 107 mmol/L 02/21/2025 12:29 PM EDT [facility] CO2, Plasma 23 22 - 29 mmol/L 02/21/2025 12:29 PM EDT [facility] Anion Gap 13 6 - 16 mmol/L 02/21/2025 12:29 PM EDT [facility] Total Calcium, Plasma 9.3 8.9 - 10.2 mg/dL 02/21/2025 12:29 PM EDT [facility] eGFRcr 118.8 mL/min/1.7 3m*2 02/21/2025 12:29 PM EDT [facility] Comment:Reported eGFRcr in m L/min/1.73m2 is based the CKD-EPI 2020 equation that does not use a race coefficient. Blood Venous blood specimen / Unknown Venipuncture / Unknown 02/21/2025 11:43 AM EDT 02/21/2025 11:57 AM EDT us Stella N Kevin MULTIMEDIA COORDINATOR LAB BLOOD ORDERABLES Final Result [facility] [address] [place] [address] * (ABNORMAL) CBC and Differential (02/21/2025 11:43 AM EDT) WBC Count 9.14 3.70 - 10.30 10*3/uL LAB HEMATOLOGY METHOD 02/21/2025 12:09 PM EDT [facility] RBC Count 4.18(L) 4.60 - 6.10 10*6/uL LAB HEMATOLOGY METHOD 02/21/2025 12:09 PM EDT [facility] HGB 12.6(L) 13.7 - 17.5 g/dL LAB HEMATOLOGY METHOD 02/21/2025 12:09 PM EDT [facility] HCT 37.8(L) 40.0 - 51.0 % LAB HEMATOLOGY METHOD 02/21/2025 12:09 PM EDT [facility] Platelet Count 298 155 - 369 10*3/uL LAB HEMATOLOGY METHOD 02/21/2025 12:09 PM EDT [facility] MCV 90 79 - 98 fL LAB HEMATOLOGY METHOD 02/21/2025 12:09 PM EDT [facility] MCH 30.1 26.0 - 32.0 pg LAB HEMATOLOGY METHOD 02/21/2025 12:09 PM EDT [facility] MCHC 33.3 30.7 - 35.5 g/dL LAB HEMATOLOGY METHOD 02/21/2025 12:09 PM EDT [facility] RDW 13.2 11.5 - 14.5 % LAB HEMATOLOGY METHOD 02/21/2025 12:09 PM EDT [facility] MPV 9.5 8.8 - 12.5 fL LAB HEMATOLOGY METHOD 02/21/2025 12:09 PM EDT [facility] nRBC 0.0 <=0.0 per 100 WBCs LAB HEMATOLOGY METHOD 02/21/2025 12:09 PM EDT [facility] Differential Type Automated LAB HEMATOLOGY METHOD 02/21/2025 12:09 PM EDT [facility] Neutrophils % 60 % LAB HEMATOLOGY METHOD 02/21/2025 12:09 PM EDT [facility] Lymphocytes % 31 % LAB HEMATOLOGY METHOD 02/21/2025 12:09 PM EDT [facility] Monocytes % 7 % LAB HEMATOLOGY METHOD 02/21/2025 12:09 PM EDT [facility] Eosinophils % 2 % LAB HEMATOLOGY METHOD 02/21/2025 12:09 PM EDT [facility] Basophils % 0 % LAB HEMATOLOGY METHOD 02/21/2025 12:09 PM EDT [facility] Immature Granulocytes % 0 % LAB HEMATOLOGY METHOD 02/21/2025 12:09 PM EDT [facility] Neutrophils Absolute 5.37 1.60 - 6.10 10*3/uL LAB HEMATOLOGY METHOD 02/21/2025 12:09 PM EDT [facility] Lymphocytes Absolute 2.86 1.20 - 3.90 10*3/uL LAB HEMATOLOGY METHOD 02/21/2025 12:09 PM EDT [facility] Monocytes Absolute 0.65 0.30 - 0.90 10*3/uL LAB HEMATOLOGY METHOD 02/21/2025 12:09 PM EDT [facility] Eosinophils Absolute 0.18 0.00 - 0.50 10*3/uL LAB HEMATOLOGY METHOD 02/21/2025 12:09 PM EDT [facility] Basophils Absolute 0.04 0.00 - 0.10 10*3/uL LAB HEMATOLOGY METHOD 02/21/2025 12:09 PM EDT [facility] Immature Granulocytes Absolute 0.04 0.00 - 0.06 10*3/uL LAB HEMATOLOGY METHOD 02/21/2025 12:09 PM EDT [facility] Blood Venous blood specimen / Unknown Venipuncture / Unknown 02/21/2025 11:43 AM EDT 02/21/2025 11:59 AM EDT Narrative [facility] - 02/21/2025 12:09 PM EDT Therapeutic decision making should be based on absolute values, rather than percentages. us Stella Brown MULTIMEDIA COORDINATOR LAB BLOOD ORDERABLES Final Result [facility] [address] [place] [address] documented in this encounter Visit Diagnoses Diagnosis [...] Traylor RN)[id number] (Given - Provider: Cosmo Traylor RN)[phone] (Given - Provider: Shelley Rodas RN) [...] pain 0727 (Given - Provider: Cosmo Traylor, SHEREEN) oxyCODONE (Roxicodone) immediate release tablet 5 [...] documented as of this encounter Care Teams Social Services Director Relationship Specialty Start Date End Date Blaine Nava MD [address] [place] [address] #1 #1 JOHN Miller [phone] PCP - General 02/17/25 documented as of this encounter
--- OUTSIDE RECORDS SUMMARY | 2025-02-21 14:18 | XMS_ITS | Encounter Summary ---
Author Organization Healthcare Address [address] [place] [address] Care Team Providers Care Property Management Assistant Name Role Phone Blaine Nava MD Primary Care Provider [phone] Reason for Visit * Auth/Cert (Routine) Specialty Diagnoses / Procedures Referred By Adalid t Referred To Contact Diagnoses Tibial plateau fracture, left, closed, initial encounter Surgical site infection Tibial plateau fracture, left, closed, initial encounter [S82.142A] Surgical site infection [T81.49XA] Procedures [place] DRAIN LOWER LEG DEEP ABSC/HEMATOMA INCISION AND DRAINAGE, LOWER EXTREMITY Lawrence Hayes MD [address] [facility] [address] [place] [address] Phone: tel: fax: [facility] [address] [place] [address] Phone: tel: Referral ID Status Reason Start Date Expiration Date Visits Re quested Visits Authorized [id number] 1 1 Encounter Details Date Type Department Care Team (Late st Contact Info) Description 02/21/2025 2:18 PM EDT Anesthesia Event [facility] [address] [place] [address] Raheem Subramanian, [address] [place] [phone] Anesthesia Record Procedure Summary Procedure Name Responsible [...] No change to dentition. ; Placed by: NARROW GAUGE OPERATOR; Removal Date: 02/21/25; Removal Time: 16102/21/25 142 [...] and Family Not on file 02/24/2025 Attends Zoroastrianism Services Not on file 02/24 Active Member [...] any time in the past 12 m [facility], were you homeless or living in a care home (including now)? No 02/24/2025 CAGE ASSESSMENT Answer [...] drink first t traci in the morning (EYE-CAT SKINNER) to steady your nerves or to get [...] and Staff Patient location during procedure: OR NARROW GAUGE OPERATOR: Goran Ty CRNA Performed: NARROW GAUGE OPERATOR Patient Condition Indications for airway management: anesthesia [...] DRAINAGE, LOWER EXTREMITY (Left: Leg Lower) Location: [facility] OR [facility] / [facility] OR Surgeons: [...] ABG No results found for: PHART , XKX5WAD , PO2ART , SO2ART , BEART , AFW2QYO , HCTART , SODIUMART , POTASSIUMART , POCTCL , POCGLU , IONCALART , LACTATE Lab Results Component Value Date HCTSYR 40.4 01/15/2025 KSYR 4.3 01/15/2025 CLSYR 99 01/15/2025 GLUSYR 110 (H) 01/15/2025 CAION 4.6 01/15/2025 ECHO No echocardiogram results found for the past 12 months PFTs No results found for: PVZ7FDY , YQC2LTRD , KPI9YSW , FVCPRED BP Readings from Last 5 [...] Plan ASA 2 Plan was reviewed with: NARROW GAUGE OPERATOR and resident Anesthesia technique(s) discussed with the [...] Negative GI ROS. [1] Allergies Allergen Reactions [place] Hives [2] Past Medical History: Diagnosis Date Fractures 09/09/2022 [3] [4] [5] Past Surgical History: Procedure Laterality Date INCISION AND DRAINAGE, LEG Left 01/20/2025 ([facility]) INCISION AND DRAINAGE, LOWER EXTREMITY (Left: Leg Lower) KNEE SURGERY Left 01/18/2025 ([facility]) INCISION AND DRAINAGE, LOWER EXTREMITY (Left: Leg Lower) LEG SURGERY Left CHRIS NAIL IM RODDING Left 09/10/2024 ([facility]) INSERTION, INTRAMEDULLARY SHERLY, FEMUR (Left: Leg Upper) ORIF TIBIA FRACTURE Left 09/15/2023 ([facility]) ORIF, FRACTURE, TIBIA, PLATEAU (Left: Leg Lower) ORIF TIBIAL PLATEU FRACTURE Left 01/01/2025 ([facility]) ORIF, FRACTURE, TIBIA, PLATEAU (Left: [...] Description 2025 7:50 AM EDT Office Visit [facility] Orthopaedic Surgery & Sports Medicine [address] [place] [phone] Stella Brown, SHIP MATE [address] [place] [address] 2025 10:30 AM EDT Office Visit [address] [phone] Santiago Collado MD [address] [place] [phone] 03/27/2025 9:30 AM EDT Office Visit [address] [address] Santiago Collado MD [address] [place] [phone] documented as of this encounter Procedures Procedure Name Priority Date/Time Associated Diagnosis Comments PB ANESTHESIA PLACEHOLDER Routine 02/21/2025 2:26 PM EDT [place] AN ELECTIVE ENDOTRACHEAL AIRWAY Routine 02/21/2025 2:26 PM EDT documented in this encounter Results * [place] AN ELECTIVE ENDOTRACHEAL AIRWAY, PB ANESTHESIA PLACEHOLDER (02/21/2025 2:26 PM EDT) Narrative Goran Ty CRNA - 02/21/2025 2:26 PM EDT Goran Ty CRNA 02/21/2025 2:35 PM Airway Date/Time: 02/21/2025 2:26 PM Reason: elective Airway not difficult General Information and Staff Patient location during procedure: OR NARROW GAUGE OPERATOR: Goran Ty CRNA Performed: NARROW GAUGE OPERATOR Patient Condition Indications for airway management: anesthesia [...] as of this encounter Care Teams Property Management Assistant Relationship Specialty Start Date End Date Blaine Nava MD [address] [place] [address] #1 #1 JOHN Miller [id number] PCP - General 02/17/25 documented as of this encounter
[2025-03-06 13:59] VITALS: BMI 42.3
--- OUTSIDE RECORDS SUMMARY | 2025-03-06 14:01 | XMS_ITS | Encounter Summary ---
Author Organization Healthcare Address [address] [place] [address] Care Team Providers Care Hand Endband Cutter Name Role Phone Blaine Nava MD Primary Care Provider [phone] Encounter Details Date Type Department Care Team (Late st Contact Info) Description 02/25/2025 Clinical Support [facility] [address] [place] [address] Sachin Singh, PharmD [address] [place] [address] [address] [place] [address] Social History Tobacco Use Types Packs/Day Years [...] and Family Not on file 02/24/2025 Attends Quaker Services Not on file 02/24 Active Member [...] living in a residential (including now)? No 02/24/2025 CAGE ASSESSMENT Answer [...] drink first t traci in the morning (EYE-SUPERVISOR QUALITY CONTROL) to steady your nerves or to get [...] 2025 7:50 AM EDT Office Visit [facility] Orthopaedic Surgery & Sports Medicine [address], 1st Floor [address] [place] [address] Stella rBown, LOADER OPERATOR [address] [place] [address] 2025 10:30 AM EDT Office Visit [address] [address] Santiago Collado MD [address] [place] [address] [address] [place] [address] 03/27/2025 9:30 AM EDT Office Visit [address] [address] Santiago Collado MD [address] [place] [address] [address] [place] [address] documented as of this encounter Visit Diagnoses Not on filedocumented in this encounter Additional Health Concerns Infection Onset Date Last Indicated Resolved Time 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
--- OUTSIDE RECORDS SUMMARY | 2025-03-06 14:01 | XMS_ITS | Encounter Summary ---
Author Organization Healthcare Address [address] [place] [address] Care Team Providers Care Illuminating Engineer Name Role Phone Blaine Nava MD Primary Care Provider [phone] Encounter Details Date Type Department Care Team (Late st Contact Info) Description 02/25/2025 Clinical Support [facility] [address] [place] [address] Sachin Singh, PharmD [address] [place] [address] 100 [place] [address] Social History Tobacco Use Types [...] and Family Not on file 02/24/2025 Attends Cheondoism Services Not on file 02/24 Active Member [...] living in a retirement (including now)? No 02/24/2025 CAGE ASSESSMENT Answer [...] first t traci in the morning (EYE-SUPERVISOR PERSONNEL CLERKS) to steady your nerves or to get [...] encounter Miscellaneous Notes * Progress Notes - Sachin Singh, PharmD - 02/25/2025 9:00 AM EDT ID/OPAT pharmacist confirmed orders for daptomycin 1100 mg IV every 24 hours, ceftriaxone 2gm IV every 24 hours Silvia, [facility]; . End date is 04/04/2025. Sachin Singh PharmD, [facility] Clinical Pharmacist, Infectious Diseases & Outpatient Parenteral Antimicrobial Therapy (OPAT) Available via [employer] Secure Chat documented in this encounter Plan of Treatment Upcoming Encounters Date Type Department Care Team (Late st Contact Info) Description 2025 7:50 AM EDT Office Visit [facility] Orthopaedic Surgery & Sports Medicine [address], 1st Floor [address] [place] [address] Stella Brown, HAND BENDER [address] [place] [address] 2025 10:30 AM EDT Office Visit [address] [address] Santiago Collado MD [address] [place] [address] [address] [place] [address] 03/27/2025 9:30 AM EDT Office Visit [address] [address] Santiago Collado MD [address] [place] [address] [address] [place] [address] documented as of this [...] documented as of this encounter Care Teams Illuminating Engineer Relationship Specialty Start Date End Date Blaine Nava MD [address] [place] [address] [address] [place] [address] PCP - General 02/17/25 documented as of this encounter
--- OUTSIDE RECORDS SUMMARY | 2025-03-06 14:02 | XMS_ITS | Encounter Summary ---
Author Organization [facility] Address [address] [place] [address] Care Team Providers Care Assistant Public Defender Name Role Phone Renetta Pardo APRN Primary Care Provider [phone] Encounter Details Date Type Department Care Team (Late st Contact Info) Description 12/31/2024 Orders Only External Location [address] [place] [address] Mitchell Mosley PA [address] [place] [address] Social History Tobacco Use Types Packs/Day [...] drink first t traci in the morning (EYE-FLASHER ADJUSTER) to steady your nerves or to get rid of a hangover? 0 09/10/2023 CAGE Questionnaire Score 0 024 Utilities Answer Date Recorded In the past 12 months has th e [employer], gas, oil, or water company threatened to [...] Description 2025 7:50 AM EDT Office Visit [facility] Orthopaedic Surgery & Sports Medicine [address], 1st Floor [address] [place] [address] Stella Brown, SEGMENT PRODUCER [address] [place] [address] 2025 10:30 AM EDT Office Visit [address] [address] Santiago Collado MD [address] [place] [address] [address] [place] [address] 03/27/2025 9:30 AM EDT Office Visit [address] [address] Santiago Collado MD [address] [place] [address] [address] [place] [address] documented as of this encounter [...] as of this encounter Care Teams Assistant Public Defender Relationship Specialty Start Date End Date Renetta Pardo, SEGMENT PRODUCER [address] [place] [address] Dr [address] [place] [address] PCP - General 09/09/23 02/16/25 documented as of this encounter
--- OUTSIDE RECORDS SUMMARY | 2025-03-06 14:02 | XMS_ITS | Encounter Summary ---
Author Organization Address [address] [place] [address] Care Team Providers Care Ekg/Ecg Technician Name Role Phone Renetta Pardo APRN Primary Care Provider [phone] Encounter Details Date Type Department Care Team (Late st Contact Info) Description 12/31/2024 Orders Only External Location [address] [place] [address] Mitchell Mosley PA [address] [place] [address] Social History Tobacco Use Types Packs/Day [...] first t traci in the morning (EYE-LEAD TELLER) to steady your nerves or to get rid of a hangover? 0 09/10/2023 CAGE Questionnaire Score 0 024 Utilities Answer Date Recorded In the past 12 months has th e [employer], gas, oil, or water company threatened to [...] Orthopaedic Surgery & Sports Medicine [address], 1st [address] [place] [address] Stella Brown, MALT SPECIFICATIONS CONTROL ASSISTANT [address] [place] [address] 2025 10:30 AM EDT Office Visit [address] [address] Santiago Collado MD [address] [place] [address] [address] [place] [address] 03/27/2025 9:30 AM EDT Office Visit [address] [address] Santiago Collado MD [address] [place] [address] [address] [place] [address] documented as of this encounter [...] documented as of this encounter Care Teams Ekg/Ecg Technician Relationship Specialty Start Date End Date Renetta Pardo, MALT SPECIFICATIONS CONTROL ASSISTANT [address] [place] [address] Dr [address] [place] [address] PCP - General 09/09/23 02/16/25 documented as of this encounter
--- OUTSIDE RECORDS SUMMARY | 2025-03-06 14:02 | XMS_ITS | Encounter Summary ---
Author Organization [facility] Address [address] [place] [address] Care Team Providers Care Floor Runner Name Role Phone Blaine Nava MD Primary Care Provider [phone] Encounter Details Date Type Department Care Team (Latest Contact Info) Description 02/21/2025 Travel Social History Tobacco Use Types Packs/Day [...] drink first t traci in the morning (EYE-POLICE ARTIST) to steady your nerves or to get [...] Date of Assessment Author No Risk Indicated 02/21/2025 7:20 PM EDT Shelley Rodas RN * Question Answer Date of Assessment Author 1. Wish to be (Past 1 Month) No 025 7:20 PM EDT Shelley Rodas, RN 2. Non-Specific Active Suici mike Thoughts (Past 1 Month) No 02/21/2025 7:20 PM EDT Justus Rodas RN 6. Suicidal Behavior (Lifetime) No 7:20 PM EDT Shelley Rodas, RN documented as of this encounter Plan of Treatment Upcoming Encounters Date Type Department Care Team (Late st Contact Info) Description 2025 7:50 AM EDT Office Visit [facility] Orthopaedic Surgery & Sports Medicine [address], 1st Floor [address] [place] [address] Stella Brown, BALE OPENER [address] [place] [address] 2025 10:30 AM EDT Office Visit [facility] [address] [place] [address] Santiago Collado MD [address] [facility] [place] [place] [address] [place] [address] 03/27/2025 9:30 AM EDT Office Visit [facility] [address] [place] [address] Santiago Collado MD [address] [facility] [place] [address] [place] [address] documented as of this encounter [...] documented as of this encounter Care Teams Floor Runner Relationship Specialty Start Date End Date Blaine Nava MD [address] [place] [address] [address] [place] [address] PCP - General 02/17/25 documented as of this encounter
--- OUTSIDE RECORDS SUMMARY | 2025-03-06 14:03 | XMS_ITS | Encounter Summary ---
Author Organization Healthcare Address [address] [place] [address] Care Team Providers Care Liability Claims Representative Name Role Phone Renetta Pardo APRN Primary Care Provider [phone] Encounter Details Date Type Department Care Team (Late st Contact Info) Description 01/23/2025 Clinical Support [facility] [address] [place] [address] Sonia Meyer, PharmD Social History Tobacco Use [...] in the past 12 m [facility], were you homeless or living [...] first t traci in the morning (EYE-FIELD CREW CHIEF) to steady your nerves or to get [...] Discharge Communication: Confirmation of IV Antimicrobials [facility]; Comments ID / OPAT pharmacist called and spoke with chon Vega at [facility] to confirm orders for daptomycin 1100 mg IV every 24 hours until 03/03/25. Sonia Meyer PharmD, [facility] Clinical Pharmacist Infectious Diseases, OPAT Available via [employer] Secure Chat documented in this encounter Plan of Treatment Upcoming Encounters Date Type Department Care Team (Late st Contact Info) Description 2025 7:50 AM EDT Office Visit [facility] Orthopaedic Surgery & Sports Medicine [address], 1st Floor [address] [place] [address] Stella Brown, PROCESS STRIPPER [address] [place] [address] 2025 10:30 AM EDT Office Visit [address] [address] Santiago Collado MD [address] [place] [address] 03/27/2025 9:30 AM EDT Office Visit [address] [address] Santiago Collado MD [address] [place] [address] documented as of this encounter Visit [...] documented as of this encounter Care Teams Liability Claims Representative Relationship Specialty Start Date End Date Renetta Pardo APRN [address] [place] [address] Dr [address] [place] [address] PCP - General 09/09/23 02/16/25 documented as of this encounter
--- OUTSIDE RECORDS SUMMARY | 2025-03-06 14:03 | XMS_ITS | Encounter Summary ---
Author Organization Healthcare Address [address] [place] [id number] Care Team Providers Care Mortgage Loan Counselor Name Role Phone Renetta Parod APRN Primary Care Provider [phone] Encounter Details Date Type Department Care Team (Late st Contact Info) Description 01/23/2025 Clinical Support [facility] [address] [place] [address] Gume Ibarra, PharmD [address] [place] [address] Social History Tobacco Use Types Packs/Day Years [...] drink first t traci in the morning (EYE-COPY CENTER ASSOCIATE) to steady your nerves or to get rid of a hangover? 0 09/10/2023 CAGE Questionnaire Score 0 024 Utilities Answer Date Recorded In the past 12 months has th e [employer], gas, oil, or water company threatened to [...] Description 2025 7:50 AM EDT Office Visit [facility] Orthopaedic Surgery & Sports Medicine [address], 1st Floor [address] [place] [address] Stella Brown, CROWNING HAMMER OPERATOR [address] [place] [address] 2025 10:30 AM EDT Office Visit [address] [phone] Santiago Collado MD [address] [place] [address] [address] [place] [address] 03/27/2025 9:30 AM EDT Office Visit [address] [address] Santiago Collado MD [address] [place] [address] [address] [place] [address] documented as of this encounter Visit Diagnoses [...] Start Date End Date Renetta Pardo APRN [address] [place] [address] [place] [address] PCP - General 09/09/23 02/16/25 documented as of this encounter
--- OUTSIDE RECORDS SUMMARY | 2025-03-06 14:03 | XMS_ITS | Encounter Summary ---
Author Organization Healthcare Address [address] [place] [address] Care Team Providers Care Corporate Counselor Name Role Phone Renetta Pardo APRN Primary Care Provider +1 -[phone] Encounter Details Date Type Department Care Team [...] drink first t traci in the morning (EYE-CHIEF OF HARBOR PATROL) to steady your nerves or to get [...] Risk Indicated 01/20/2025 8:00 PM EDT Taryn Miranda, SHEREEN * Question Answer Date of Assessment Author 1. Wish to be (Past 1 Month) No 025 8:00 PM EDT Taryn Miranda, RN 2. Non-Specific Active Suici mike Thoughts (Past 1 Month) No 01/20/2025 8:00 PM EDT Forrest Miranda RN 6. Suicidal Behavior (Lifetime) No 8:00 PM BREANNAT Taryn Miranda, RN documented as of this encounter Plan of Treatment Upcoming Encounters Date Type Department Care Team (Late st Contact Info) Description 2025 7:50 AM EDT Office Visit [facility] Orthopaedic Surgery & Sports Medicine [address] [place] [address] Stella Brown, KNOCKUP WORKER [address] [place] [address] 2025 10:30 AM EDT Office Visit [facility] [address] [place] [address] Santiago Collado MD [address] [facility] [address] [place] [address] 03/27/2025 9:30 AM EDT Office Visit [facility] [address] [place] [address] Santiago Collado MD 3101 [facility] [address] [place] [address] documented as of this encounter [...] documented as of this encounter Care Teams Corporate Counselor Relationship Specialty Start Date End Date Renetta Pardo APRN [address] [place] [address] Dr Garcia [address] [place] [address] PCP - General 09/09/23 02/16/25 documented as of this encounter
--- OUTSIDE RECORDS SUMMARY | 2025-03-06 14:04 | XMS_ITS | Encounter Summary ---
Author Organization Healthcare Address [address] [place] [address] Care Team Providers Care Channel Turner Name Role Phone Renetta Pardo APRN Primary Care Provider +1 -[phone] Encounter Details Date Type Department Care Team [...] the past [address] [facility], were you homeless or living in a [...] t traci in the morning (EYE-DIRECTOR OF LOSS PREVENTION) to steady your nerves or to get [...] Description 2025 7:50 AM EDT Office Visit [facility] Orthopaedic Surgery & Sports Medicine [address], 1[address] [place] [address] Stella Brown, HEAD OF HOUSEKEEPING [address] [place] [address] 2025 10:30 AM EDT Office Visit [address] [address] Santiago Collado MD [address] [place] [address] 03/27/2025 9:30 AM EDT Office Visit [address] [address] Santiago Collado MD [address] [place] [address] documented as of this encounter Visit [...] documented as of this encounter Care Teams Channel Turner Relationship Specialty Start Date End Date Renetta Pardo APRN [address] [place] [address] [place] [address] PCP - General 09/09/23 02/16/25 documented as of this encounter
--- OUTSIDE RECORDS SUMMARY | 2025-03-06 14:04 | XMS_ITS | Encounter Summary ---
Author Organization [facility] Address [address] [place] [address] Care Team Providers Care Sugar Coating Hand Name Role Phone Renetta Pardo APRN Primary Care Provider +1 -[phone] Encounter Details Date Type Department Care Team (Late st Contact Info) Description 12/31/2024 Orders Only External Location [address] [place] [address] Provider, External Social History Tobacco Use Types [...] drink first t traci in the morning (EYE-DRYING MACHINE TENDER) to steady your nerves or to [...] 2025 7:50 AM EDT Office Visit [facility] Orthopaedic Surgery & Sports Medicine [address], 1[address] [place] [address] Stella Brown, LEATHER HEEL BREASTER [address] [place] [address] 2025 10:30 AM EDT Office Visit [address] [address] Santiago Collado MD [address] [place] [address] [address] [place] [address] 03/27/2025 9:30 AM EDT Office Visit [address] [address] Santiago Collado MD [address] [place] [address] [address] [place] [address] documented as of this encounter [...] documented as of this encounter Care Teams Sugar Coating Hand Relationship Specialty Start Date End Date Renetta Pardo APRN [address] [place] [address] [place] [address] PCP - General 09/09/23 02/16/25 documented as of this encounter
--- OUTSIDE RECORDS SUMMARY | 2025-03-06 14:04 | XMS_ITS | Encounter Summary ---
Author Organization Healthcare Address [address] [place] [address] Care Team Providers Care Call Or Contact Centre Operator Name Role Phone Renetta Pardo APRN Primary Care Provider +1 -[phone] Encounter Details Date Type Department Care Team [...] drink first t traci in the morning (EYE-SQUAD LEADER) to steady your nerves or to get [...] Description 2025 7:50 AM EDT Office Visit [facility] Orthopaedic Surgery & Sports Medicine [address], 1[address] Floor [address] [place] [address] Stella Brown, BOX PERSON [address] [place] [address] 2025 10:30 AM EDT Office Visit [facility] [address] [place] [address] Santiago Collado MD [address] [facility] [address] [place] [address] 03/27/2025 9:30 AM EDT Office Visit [facility] [address] [place] [address] Santiago Collado MD 3101 [facility] [address] [place] [address] documented as of this encounter Visit Diagnoses Not on filedocumented in this encounter Additional Health Concerns Assessment Noted Time A fall risk assessment has been complete d for the patient 10/04/2023 8:38 AM EST A Body Mass Index follow-up plan has been documented for the patient 01/22/2025 4:22 PM EDT documented as of this encounter Care Teams Call Or Contact Centre Operator Relationship Specialty Start Date End Date Renetta Pardo APRN [address] [place] [address] Dr Garcia [address] [place] [address] PCP - General 09/09/23 02/16/25 documented as of this encounter
--- OUTSIDE RECORDS SUMMARY | 2025-03-06 14:04 | XMS_ITS | Encounter Summary ---
Author Organization [facility] Address [address] [place] [address] Care Team Providers Care Export Coordinator Name Role Phone Renetta Pardo APRN Primary Care Provider +1 -[phone] Encounter Details Date Type Department Care Team (Late st Contact Info) Description 12/31/2024 Orders Only External Location [address] [place] [address] Mitchell Mosley PA [address] [place] [address] Social History Tobacco Use Types Packs/Day [...] first t traci in the morning (EYE-MANAGER GOLF) to steady your nerves or to get rid of a hangover? 0 09/10/2023 CAGE Questionnaire Score 0 024 Utilities Answer Date Recorded In the past 12 months has th e [employer] gas, oil, or water company threatened to [...] Orthopaedic Surgery & Sports Medicine [address], 1[address] [place] [address] Stella Brown, VEGETABLE INSPECTOR [address] [place] [address] 2025 10:30 AM EDT Office Visit [address] [address] Santiago Collado MD [address] [place] [address] [address] [place] [address] 03/27/2025 9:30 AM EDT Office Visit [address] [address] Santiago Collado MD [address] [place] [address] [address] [place] [address] documented as of this encounter [...] documented as of this encounter Care Teams Export Coordinator Relationship Specialty Start Date End Date Renetta Pardo, VEGETABLE INSPECTOR [address] [place] [address] Dr Garcia [address] [place] [address] PCP - General 09/09/23 02/16/25 documented as of this encounter
--- OUTSIDE RECORDS SUMMARY | 2025-03-06 14:04 | XMS_ITS | Encounter Summary ---
Author Organization [facility] Address [address] [place] [address] Care Team Providers Care Pleat Patternmaker Name Role Phone Renetta Pardo APRN Primary Care Provider +1 -[phone] Encounter Details Date Type Department Care Team [...] drink first t traci in the morning (EYE-MAPPING ANALYST) to steady your nerves or to [...] Orthopaedic Surgery & Sports Medicine [address], 1[address] [place] [address] Stella Brown, BUSINESS ADMINISTRATOR [address] [place] [address] 2025 10:30 AM EDT Office Visit [address] [address] Santiago Collado MD [address] [place] [address] [address] [place] [address] 03/27/2025 9:30 AM EDT Office Visit [address] [address] Santiago Collado MD [address] [place] [address] [address] [place] [address] documented as of this encounter Visit Diagnoses Not on filedocumented in this encounter Additional Health Concerns Assessment Noted Time A fall risk assessment has been complete d for the patient 10/04/2023 8:38 AM EST A Body Mass Index follow-up plan has been documented for the patient 01/22/2025 4:22 PM EDT documented as of this encounter Care Teams Pleat Patternmaker Relationship Specialty Start Date End Date Renetta Pardo, BUSINESS ADMINISTRATOR [address] [place] [address] Dr Garcia [address] [place] [address] PCP - General 09/09/23 02/16/25 documented as of this encounter
--- OUTSIDE RECORDS SUMMARY | 2025-03-06 14:04 | XMS_ITS | Encounter Summary ---
Author Organization [facility] Address [address] [place] [address] Care Team Providers Care Development Editor Name Role Phone Renetta Pardo APRN Primary Care Provider +1 -[phone] Blaine Nava MD Primary Care Provider Reason for Visit * Reason Onset Date Comments HCN - Patient Message 01/27/2025 Encounter Details Date Type Department Care Team (Late st Contact Info) Description 01/27/2025 Telephone [facility] Orthopaedic Surgery & Sports Medicine [address] 1st [address] [place] [address] Lawrence Hayes MD [address] [place] [address] HCN - Patient Message Social [...] and Family Not on file 02/24/2025 Attends [employer] Not on file 02/24 Active Member [...] any time in the past 12 m [facility], were you homeless or living in a fdc (including now)? No 02/24/2025 CAGE ASSESSMENT Answer [...] drink first t traci in the morning (EYE-WINDOW DRESSER) to steady your nerves or to get rid of a hangover? 0 09/10/2023 CAGE Questionnaire Score 0 024 Utilities Answer Date Recorded In the past 12 months has th e [employer], gas, oil, or water company threatened to [...] Please call to advise Best contact number: [phone] (mobile) Optimal time of day to reach [...] Description 2025 7:50 AM EDT Office Visit [facility] Orthopaedic Surgery & Sports Medicine [address], 1st [address] [place] [address] Stella Brown, CERTIFIED DIABETES EDUCATOR [address] [place] [address] 2025 10:30 AM EDT Office Visit [address] [address] Santiago Collado MD [address] [place] [address] 03/27/2025 9:30 AM EDT Office Visit [address] [address] Santiago Collado MD [address] [place] [address] documented as of this encounter Visit [...] documented as of this encounter Care Teams Development Editor Relationship Specialty Start Date End Date Renetta Pardo APRN [address] [place] [address] Dr Kang B [place] [address] PCP - General 09/09/23 02/16/25 Blaine Nava MD [address] [place] [address] [address] [place] [address] PCP - General 02/17/25 documented as of this encounter
--- OUTSIDE RECORDS SUMMARY | 2025-03-06 14:04 | XMS_ITS | Encounter Summary ---
Author Organization Healthcare Address [address] [place] [address] Care Team Providers Care Tare Man Name Role Phone Renetta Pardo APRN Primary Care Provider +1 -[phone] Encounter Details Date Type Department Care Team (Late st Contact Info) Description 01/24/2025 Telephone [facility] Orthopaedic Surgery & Sports Medicine [address], 1st [address] [place] [address] Cam[place] Vital, DIRECTOR OF ACCOUNTING & ACUTE CARE SURG SVCS ADMIN Social [...] first t traci in the morning (EYE-MINE SHIFTER) to steady your nerves or to get rid of a hangover? 0 09/10/2023 CAGE Questionnaire Score 0 024 Utilities Answer Date Recorded In the past 12 months has th e [employer] gas, oil, or water [employer] threatened to shut off services in your [...] Description 2025 7:50 AM EDT Office Visit [facility] Orthopaedic Surgery & Sports Medicine [address] [place] [address] Stella Brown, TRANSPORTATION ASSISTANT [address] [place] [address] 2025 10:30 AM EDT Office [facility] [address] [place] [address] Santiago Collado MD 3101 [facility] [address] [place] [address] 03/27/2025 9:30 AM EDT Office [facility] [address] [place] [address] Santiago Collado MD 3101 [facility] [address] [place] [address] documented as of this encounter [...] documented as of this encounter Care Teams Tare Man Relationship Specialty Start Date End Date Renetta Pardo APRN [address] [place] [address] Dr Garcia [address] [place] [address] PCP - General 09/09/23 02/16/25 documented as of this encounter
--- OUTSIDE RECORDS SUMMARY | 2025-03-06 14:04 | XMS_ITS | Encounter Summary ---
Author Organization [facility] Address [address] [place] [address] Care Team Providers Care U.[place]. Senator Name Role Phone Renetta Pardo APRN Primary Care Provider +1 -[phone] Encounter Details Date Type Department Care Team (Late st Contact Info) Description 12/31/2024 Orders Only External Location [address] [place] [address] Mitchell Mosley PA [address] [place] [address] Social History Tobacco Use Types Packs/Day [...] in a chcf (including now)? No 09/12/2023 CAGE ASSESSMENT Answer [...] drink first t traci in the morning (EYE-CLASSIFICATIONS OFFICER CC/CM) to steady your nerves or to get rid of a hangover? 0 09/10/2023 CAGE Questionnaire Score 0 024 Utilities Answer Date Recorded In the past 12 months has th e [employer], gas, oil, or water company threatened to [...] 7:50 AM EDT Office Visit [facility] Orthopaedic Surgery & Sports Medicine [address] 1[address] [place] [address] Stella Brown, OUTSIDE SALES CONSULTANT [address] [place] [address] 2025 10:30 AM EDT Office Visit [address] [address] Santiago Collado MD [address] [place] [address] [address] [place] [address] 03/27/2025 9:30 AM EDT Office Visit [address] [address] Santiago Collado MD [address] [place] [address] [address] [place] [address] documented as of this encounter [...] documented as of this encounter Care Teams U.[place]. Senator Relationship Specialty Start Date End Date Renetta Pardo, OUTSIDE SALES CONSULTANT [address] [place] [address] Dr Garcia [address] [place] [address] PCP - General 09/09/23 02/16/25 documented as of this encounter
--- OUTSIDE RECORDS SUMMARY | 2025-03-06 14:04 | XMS_ITS | Encounter Summary ---
Author Organization [facility] Address [address] [place] [address] Care Team Providers Care Minesweeping Officer Name Role Phone Renetta Pardo APRN Primary Care Provider +1 -[phone] Encounter Details Date Type Department Care Team (Late st Contact Info) Description 01/07/2025 Telephone [facility] Orthopaedic Surgery & Sports Medicine [address], 1st [address] [place] [address] [place] Vital, DRY WALL FINISHER & ACUTE CARE SURG SVCS ADMIN Social [...] drink first t traci in the morning (EYE-INTEGRATED CIRCUITS INSPECTOR) to steady your nerves or to [...] Description 2025 7:50 AM EDT Office Visit [facility] Orthopaedic Surgery & Sports Medicine [address], 1[address] [place] [address] Stella Brown, CORN SHELLER OPERATOR [address] [place] [address] 2025 10:30 AM EDT Office Visit [address] [address] Santiago Collado MD [address] [place] [address] [address] [place] [address] 03/27/2025 9:30 AM EDT Office Visit [address] [address] Santiago Collado MD [address] [place] [address] [address] [place] [address] documented as of this encounter Visit Diagnoses Not on filedocumented in this encounter Additional Health Concerns Assessment Noted Time A fall risk assessment has been complete d for the patient 10/04/2023 8:38 AM EST A Body Mass Index follow-up plan has been documented for the patient 01/02/2025 10:48 AM EDT documented as of this encounter Care Teams Minesweeping Officer Relationship Specialty Start Date End Date Renetta Pardo CORN SHELLER OPERATOR [address] [place] [address] Dr Garcia [address] [place] [address] PCP - General 09/09/23 02/16/25 documented as of this encounter
--- OUTSIDE RECORDS SUMMARY | 2025-03-06 14:04 | XMS_ITS | Clinical Summary ---
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 [facility] Monocytes % 7 % LAB HEMATOLOGY METHOD 02/21/2025 12:09 PM EDT [facility] Eosinophils % 2 % LAB HEMATOLOGY METHOD 02/21/2025 12:09 PM EDT [facility] Basophils % 0 % LAB HEMATOLOGY METHOD 02/21/2025 12:09 PM EDT [facility] Immature Granulocytes % 0 % LAB HEMATOLOGY METHOD 02/21/2025 12:09 PM EDT [facility] Neutrophils Absolute 5.37 1.60 - 6.10 10*3/uL LAB HEMATOLOGY METHOD 02/21/2025 12:09 PM EDT [facility] Lymphocytes Absolute 2.86 1.20 - 3.90 10*3/uL LAB HEMATOLOGY METHOD 02/21/2025 12:09 PM EDT [facility] Monocytes Absolute 0.65 0.30 - 0.90 10*3/uL LAB HEMATOLOGY METHOD 02/21/2025 12:09 PM EDT [facility] Eosinophils Absolute 0.18 0.00 - 0.50 10*3/uL LAB HEMATOLOGY METHOD 02/21/2025 12:09 PM EDT [facility] Basophils Absolute 0.04 0.00 - 0.10 10*3/uL LAB HEMATOLOGY METHOD 02/21/2025 12:09 PM EDT [facility] Immature Granulocytes Absolute 0.04 0.00 - 0.06 10*3/uL LAB HEMATOLOGY METHOD 02/21/2025 12:09 PM EDT [facility] Blood Venous blood specimen / Unknown Venipuncture / Unknown 02/21/2025 11:43 AM EDT 02/21/2025 11:59 AM EDT Narrative [facility] - 02/21/2025 12:09 PM EDT Therapeutic decision making should be based on absolute values, rather than percentages. us Stella N Kevin MALCOLM LAB BLOOD ORDERABLES Final Result Performing Organization Address City/[facility]/ZIP Co de Phone Number [facility] [address] [place] [address] * Type and screen (02/21/2025 11:43 AM EDT) Only the most recent of3 resultswithin the time period is included. ABO/Rh A Positive 02/21/2025 11:33 AM EDT BLOOD BANK Antibody Screen Negative 02/21/2025 11:33 AM EDT BLOOD BANK Specimen Expiration 02/24/2025 23:59 02/21/2025 11:33 AM EDT BLOOD BANK Blood Venous blood specimen / Unknown Venipuncture / Unknown 02/21/2025 11:43 AM EDT 02/21/2025 11:54 AM EDT us Stella Brown APRN LAB BLOOD BANK TEST ORDERA BLES Final Result Performing Organization Address [facility] de Phone Number BLOOD BANK [address] [place] [address], * (ABNORMAL) C-Reactive Protein, Plasma (02/18/2025) Only the most recent of4 resultswithin the time period is included. External C-Reactive Protein(CRP) 13.5(A) 0 - 4 mg/l Blood Venous blood specimen / Unknown 02/18/2025 us Historical Provider LAB BLOOD ORDERABLES Annabel l Result * CK (02/18/2025) Only the most recent of3 resultswithin the time period is included. External Creatine Kinase 65 55 - 170 u/l Blood Venous blood specimen / Unknown 02/18/2025 us Historical Provider MD LAB BLOOD ORDERABLES Annabel l Result * Comprehensive Metabolic Panel, Plasma (02/18/2025) Only the most recent of4 resultswithin the time period is included. External BUN 12 External Creatinine Blood 0.9 mg/dL External AST (SGOT) 25 External ALT (SGPT) 27 External Alkaline Phosphatase 96 External Bilirubin Total 0.2 mg/dL Blood Venous blood specimen / Unknown 02/18/2025 us Historical Provider MD LAB BLOOD ORDERABLES Annabel l Result * CT Knee Left wo IV Contrast [...] of2 resultswithin the time period is included. Sedimentation Rate 20(H) <15 mm/hr 2024 12:47 PM EDT [facility] Blood Venous blood specimen / Unknown Venipuncture / Unknown 02/17/2025 11:00 AM EDT 02/17/2025 11:00 AM EDT us Stella N Brown OVERSIZE LOAD PIL[employer] ESCORT LAB BLOOD ORDERABLES Final Result [facility] [address] [place] [address] * XR Knee Left 3 Views (02/17/2025 [...] Hold for add-ons 01/22/2025 8:02 AM EDT [facility] Comment:Auto resulted. 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 technician: [employer] PowerPICC Solo Catheter placed: Single lumen Catheter size: 4 Fr Catheter trimmed length: 52 Catheter threaded length: 52 Vein placed in: SVC Catheter cm indwellin Catheter cm outside: 52 Placement confirmed by: [employer] 3CG technology Pre-procedure: Landmarks identified Ultrasound guidance: [...] at day 4 2024 7:15 AM EDT [facility] Gram Stain Result No polymorphonuclear leukocytes seen 01/25/2025 7:15 AM EDT [facility] Gram Stain Result No organisms seen 01/25/2025 7:15 AM EDT [facility] Swab Structure of left knee region / Unknown 01/20/2025 10:42 AM EDT 01/20/2025 11:25 AM EDT Comment:Pre-op diagnosis: Closed fracture of left tibial plateau with routine healing, subsequent encounter [S82.142D] us Bob Nava MD LAB MICROBIOLOGY - GENERAL O RDERABLES Final Result Performing Organization Address City/[facility]/ZIP Co de Phone Number [facility] [address] [place] [address] * Fungal Culture, Routine (01/20/2025 10:42 AM EDT) Culture No Fungal Growth at 1 Week 01/28/2025 7:34 AM EDT [facility] Swab Structure of left knee region / Unknown 01/20/2025 10:42 AM EDT 01/20/2025 11:25 AM EDT Comment:Pre-op diagnosis: Closed fracture of left tibial plateau with routine healing, subsequent encounter [S82.142D] us Bob Nava MD LAB MICROBIOLOGY - GENERAL O RDERABLES Final Result Performing Organization Address City/[facility]/ZIP Co de Phone Number [facility] [address] [place] [address] * Fungal Culture, Tissue and SYEDA (01/20/2025 10:30 AM EDT) Only the most recent of3 resultswithin the time period is included. Culture Reading Mycological 4 Weeks No Fungal Growth at 4 Weeks 02/18/2025 6:03 AM EDT [facility] SYEDA No fungal elements seen 02/18/2025 6:03 AM EDT [facility] Tissue Structure of left knee region / Unknown 01/20/2025 10:30 AM EDT 01/20/2025 11:23 AM EDT Comment:Pre-op diagnosis: Closed fracture of left tibial plateau with routine healing, subsequent encounter [S82.142D] Bob Nava MD LAB MICROBIOLOGY - GENERAL O RDERABLES Final Result Performing Organization Address [facility] [place] [address] * AFB Culture, Non Respiratory Source and Acid Fast Stain (01/20/2025 10:30 AM EDT) Only the most recent of5 resultswithin the time period is included. AFB Culture No Mycobacterial Growth at 6 Weeks 03/04/2025 4:02 PM EDT [facility] Acid Fast Stain No acid fast bacilli seen 03/04/2025 4:02 PM EDT [facility] Tissue Structure of left knee region / Unknown 01/20/2025 10:30 AM EDT 01/20/2025 11:23 AM EDT Comment:Pre-op diagnosis: Closed fracture of left tibial plateau with routine healing, subsequent encounter [S82.142D] Bob Nava MD LAB MICROBIOLOGY - GENERAL O RDERABLES Final Result Performing Organization Address [facility] [place] [address] * Peripheral IV (01/20/2025 10:10 AM EDT) Narrative Filemon Matute MD - 01/20/2025 10:10 AM EDT Filemon Matute MD 01/20/2025 10:25 AM Peripheral IV Date/Time: 01/20/2025 10:10 AM Placement Needle size: 18 G Location: hand Site prep: alcohol Technique: anatomical landmarks Attempts: 1 Filemon Matute MD ANESTHESIA ORDERABLES Final Res ult * AL AN ELECTIVE ENDOTRACHEAL AIRWAY, PB ANESTHESIA PLACEHOLDER [...] MD ANESTHESIA ORDERABLES Final Res ult * Vancomycin, random (01/20/2025 3:40 AM EDT) Only the most recent of2 resultswithin the time period is included. Vancomycin, Random, Plasma 20.1 ug/mL 01/20/2025 4:51 AM EDT [facility] Blood Venous blood specimen / Unknown Venipuncture / Unknown 01/20/2025 3:40 AM EDT 01/20/2025 3:57 AM EDT us Sachin Garza MD LAB BLOOD ORDERABLES Final R esult [facility] [address] [place] [address] * Fungal Culture, Sterile Body Fluid (NOT CSF) and SYEDA (01/18/2025 3:28 PM EDT) Only the most recent of2 resultswithin the time period is included. Culture No Fungal Growth at 3 Weeks 02/10/2025 8:37 AM EDT [facility] SYEDA No fungal elements seen 02/10/2025 8:37 AM EDT [facility] Joint Fluid Topography unknown / Unknown Non-blood Collection / Unknown 01/18/2025 3:28 PM EDT 01/18/2025 3:28 PM EDT us Sachin Garza MD LAB MICROBIOLOGY - GENERAL O RDERABLES Final Result Performing Organization Address City/[facility]/ZIP Co de Phone Number [facility] [address] [place] [address] * (ABNORMAL) Body Fluid Culture and Gram Stain (01/18/2025 3:28 PM EDT) Only the most recent of3 resultswithin the time period is included. Culture Heavy Growth 01/20/2025 8:34 AM EDT [facility] Culture Methicillin-Resista nt Staphylococcus aureus(AA) 01/20/2025 8:34 AM EDT [facility] Comment: For susceptibility results refer to: - [facility]-[id number] The organism value for this result has been updated. These results have been appended to the previously preliminary verified report. Edited result: Previously reported as Staphylococcus aureus on 01/19/2025 at 0933 EDT. Staphylococcus aureus has been updated to reportable. Gram Stain Result Numerous Polymorphonuclear leukocytes 01/20/2025 8:34 AM EDT [facility] Gram Stain Result No organisms seen 01/20/2025 8:34 AM EDT [facility] Joint Fluid Topography unknown / Unknown Non-blood Collection / Unknown 01/18/2025 3:28 PM EDT 01/18/2025 3:28 PM EDT us Sachin Garza MD LAB MICROBIOLOGY - GENERAL O RDERABLES Final Result Performing Organization Address City/[facility]/ZIP Co de Phone Number [facility] [address] [place] [address] * (ABNORMAL) Body Fluid Cell Count w/ Diff (01/18/2025 3:01 PM EDT) Only the most recent of2 resultswithin the time period is included. Color, Body fluid Red LAB HEMATOLOGY METHOD 01/18/2025 11:05 PM EDT [facility] Appearance, Body fluid Cloudy(A) LAB HEMATOLOGY METHOD 01/18/2025 11:05 PM EDT [facility] Volume, Body fluid 3.5 cc LAB HEMATOLOGY METHOD 01/18/2025 11:05 PM EDT [facility] Fluid Container Specimen received in EDTA tube LAB HEMATOLOGY METHOD 01/18/2025 11:05 PM EDT [facility] Red Blood Cell Count, Body fluid 299,000 uL LAB HEMATOLOGY METHOD 01/18/2025 11:05 PM EDT [facility] Total Nucleated Cell Count, Body fluid 873 uL LAB HEMATOLOGY METHOD 01/18/2025 11:05 PM EDT [facility] Neutrophils %, Body fluid 17 % LAB HEMATOLOGY METHOD 01/18/2025 11:05 PM EDT [facility] Lymphocytes %, Body fluid 55 % LAB HEMATOLOGY METHOD 01/18/2025 11:05 PM EDT [facility] Monocytes/Macro phages %, Body fluid 27 % LAB HEMATOLOGY METHOD 01/18/2025 11:05 PM EDT [facility] Eosinophils %, Body fluid 1 % LAB HEMATOLOGY METHOD 01/18/2025 11:05 PM EDT [facility] Lining/Mesothel ial Cells %, Body fluid 0 % LAB HEMATOLOGY METHOD 01/18/2025 11:05 PM EDT [facility] Neutrophils Absolute (PMN), Body fluid 148 uL LAB HEMATOLOGY METHOD 01/18/2025 11:05 PM EDT [facility] Lymphocytes Absolute, Body fluid 480 uL LAB HEMATOLOGY METHOD 01/18/2025 11:05 PM EDT [facility] Monocytes/Macro phages Absolute, Body fluid 236 uL LAB HEMATOLOGY METHOD 01/18/2025 11:05 PM EDT [facility] Eosinophils Absolute, Body fluid 9 uL LAB HEMATOLOGY METHOD 01/18/2025 11:05 PM EDT [facility] Basophils Absolute, Body fluid 0 uL LAB HEMATOLOGY METHOD 01/18/2025 11:05 PM EDT [facility] Lining/Mesothel ial Cells Absolute, Body fluid 0 uL LAB HEMATOLOGY METHOD 01/18/2025 11:05 PM EDT [facility] Comment, Body fluid None LAB HEMATOLOGY METHOD 01/18/2025 11:05 PM EDT [facility] Comment:This is an appended report. These results have been appended to a previously preliminary verified report. Basophils %, Body fluid 0 % LAB HEMATOLOGY METHOD 01/18/2025 11:05 PM EDT [facility] Joint Fluid Structure of left knee region / Unknown 01/18/2025 3:01 PM EDT 01/18/2025 3:28 PM EDT us Sachin Garza MD LAB BODY FLUIDS AND STOOLS ORDERABLES NO SPECIMEN TYPE/SOURCE Final Result Performing Organization Address City/[facility]/ZIP Co de Phone Number [facility] [address] [place] [address] * Body fluid, cytospin, pathologist interpretation (01/18/2025 3:01 PM EDT) Only the most recent of2 resultswithin the time period is included. Specimen Type Joint Fluid LAB HEMATOLOGY METHOD 01/20/2025 4:29 PM EDT [facility] Specimen Source, Body Fluid Knee, Left LAB HEMATOLOGY METHOD 01/20/2025 4:29 PM EDT [facility] Clinical Diagnosis, Body Fluid Left lower extremity cellulitis LAB HEMATOLOGY METHOD 01/20/2025 4:29 PM EDT [facility] Interpretation , Body Fluid Bloody specimen Acute and chronic inflammatory cells Correlation with microbiology studies recommended A resident was involved in the service. I attest I examined the relevant preparations for the specimens and confirmed the diagnosis or interpretation. 01/20/2025 4:29 PM EDT [facility] Pathologist Signature, Body Fluid 01/20/2025 4:29 PM EDT [facility] Comment:Reviewed by: Stephanie conti MD LAB CP ASR DISCLAIMER Yes 01/20/2025 4:29 PM EDT [facility] Joint Fluid Structure of left knee region / Unknown 01/18/2025 3:01 PM EDT 01/18/2025 3:28 PM EDT us Sachin Garza MD LAB BODY FLUIDS AND STOOLS O RDERABLES Final Result [facility] [address] [place] [address] * Joint Fluid Crystals (01/18/2025 3:01 PM EDT) Crystals, Joint Fluid No Crystals Seen No Crystals Present 01/18/2025 5:28 PM EDT [facility] Joint Fluid Structure of left knee region / Unknown 01/18/2025 3:01 PM EDT 01/18/2025 3:28 PM EDT us Sachin Garza MD LAB BODY FLUIDS AND STOOLS O RDERABLES Final Result [facility] [address] [place] [address] * Joint Infection Panel by PCR (01/18/2025 12:17 PM EDT) Pathologist [facility] Anaerococcus prevotii/vaginalis PCR Result Not Detected Not Detected 01/18/2025 5:28 PM EDT [facility] Clostridium perfringens PCR Result Not Detected Not Detected 01/18/2025 5:28 PM EDT [facility] Cutibacterium avidum/granulosum PCR Result Not Detected Not Detected 01/18/2025 5:28 PM EDT [facility] Enterococcus faecalis PCR Result Not Detected Not Detected 01/18/2025 5:28 PM EDT [facility] Enterococcus faecium PCR Result Not Detected Not Detected 01/18/2025 5:28 PM EDT [facility] Finegoldia magna PCR Result Not Detected Not Detected 01/18/2025 5:28 PM EDT [facility] Parvimonas micra PCR Result Not Detected Not Detected 01/18/2025 5:28 PM EDT [facility] Peptoniphilus PCR Result Not Detected Not Detected 01/18/2025 5:28 PM EDT [facility] Peptostreptococcus anaerobius PCR Result Not Detected Not Detected 01/18/2025 5:28 PM EDT [facility] Staphylococcus aureus PCR Result Not Detected Not Detected 01/18/2025 5:28 PM EDT [facility] Staphylococcus lugdunensis PCR Result Not Detected Not Detected 01/18/2025 5:28 PM EDT [facility] Streptococcus spp PCR Result Not Detected Not Detected 01/18/2025 5:28 PM EDT [facility] Streptococcus agalactiae PCR Result Not Detected Not Detected 01/18/2025 5:28 PM EDT [facility] Streptococcus pneumoniae PCR Result Not Detected Not Detected 01/18/2025 5:28 PM EDT [facility] Streptococcus pyogenes PCR Result Not Detected Not Detected 01/18/2025 5:28 PM EDT [facility] Bacteroides fragilis PCR Result Not Detected Not Detected 01/18/2025 5:28 PM EDT [facility] Citrobacter PCR Result Not Detected Not Detected 01/18/2025 5:28 PM EDT [facility] Enterobacter cloacae complex PCR Result Not Detected Not Detected 01/18/2025 5:28 PM EDT [facility] Escherichia coli PCR Result Not Detected Not Detected 01/18/2025 5:28 PM EDT [facility] Haemophilus influenzae PCR Result Not Detected Not Detected 01/18/2025 5:28 PM EDT [facility] Kingella kingae PCR Result Not Detected Not Detected 01/18/2025 5:28 PM EDT [facility] Klebsiella aerogenes PCR Result Not Detected Not Detected 01/18/2025 5:28 PM EDT [facility] Klebsiella pneumoniae group PCR Result Not Detected Not Detected 01/18/2025 5:28 PM EDT [facility] Morganella morganii PCR Result Not Detected Not Detected 01/18/2025 5:28 PM EDT [facility] Neisseria gonorrhoeae PCR Result Not Detected Not Detected 01/18/2025 5:28 PM EDT [facility] Proteus spp PCR Result Not Detected Not Detected 01/18/2025 5:28 PM EDT [facility] Pseudomonas aeruginosa PCR Result Not Detected Not Detected 01/18/2025 5:28 PM EDT [facility] Salmonella spp PCR Result Not Detected Not Detected 01/18/2025 5:28 PM EDT [facility] Serratia marcescens PCR Result Not Detected Not Detected 01/18/2025 5:28 PM EDT [facility] Nelda PCR Result Not Detected Not Detected 01/18/2025 5:28 PM EDT [facility] Nelda albicans PCR Result Not Detected Not Detected 01/18/2025 5:28 PM EDT [facility] CTXM PCR Result Not Detected Not Detected 01/18/2025 5:28 PM EDT [facility] IMP PCR Result Not Detected Not Detected 01/18/2025 5:28 PM EDT [facility] KPC PCR Result Not Detected Not Detected 01/18/2025 5:28 PM EDT [facility] mecA/C and MREJ (MRSA) PCR Result Not Detected Not Detected 01/18/2025 5:28 PM EDT [facility] NDM PCR Result Not Detected Not Detected 01/18/2025 5:28 PM EDT [facility] OXA-48-like PCR Result Not Detected Not Detected 01/18/2025 5:28 PM EDT [facility] Jarret/B PCR Result Not Detected Not Detected 01/18/2025 5:28 PM EDT [facility] VIM PCR Result Not Detected Not Detected 01/18/2025 5:28 PM EDT [facility] Joint Fluid Synovial fluid specimen / Unknown Non-blood Collection / Unknown 01/18/2025 12:17 PM EDT 01/18/2025 3:24 PM EDT Narrative [facility] - 01/18/2025 5:28 PM EDT [...] MICROBIOLOGY - GENERAL O RDERABLES Final Result [facility] [address] [place] [address] * AL AN ELECTIVE ENDOTRACHEAL AIRWAY, PB ANESTHESIA PLACEHOLDER [...] Detected Not Detected 01/18/2025 9:36 AM EDT [facility] Swab Both anterior nares / Unknown Non-blood Collection / Unknown 01/18/2025 7:43 AM EDT 01/18/2025 8:19 AM EDT Narrative [facility] - 01/18/2025 9:36 AM EDT [...] MICROBIOLOGY - GENERAL O RDERABLES Final Result [facility] [address] [place] [address] * Vancomycin, Peak, Plasma Please draw ~2 hours after 1000 dose of vancomycin on Monday finishes infusing. Consider obtaining level via peripheral stick. If peripheral stick is not feasible, please ensure that line is flushed well prior to drawing l... (01/17/2025 2:03 PM EDT) Vancomycin, Peak, Plasma 22.0 20.0 - 40.0 ug/mL 01/17/2025 3:01 PM EDT [facility] Blood Venous blood specimen / Unknown Venipuncture / Unknown 01/17/2025 2:03 PM EDT 01/17/2025 2:32 PM EDT Narrative [facility] - 01/17/2025 3:01 PM EDT Therapeutic Peak level: 20-40ug/mL Supra-therapeutic Peak level: >40 ug/mL Sachin Garza MD LAB BLOOD ORDERABLES Final R esult Performing Organization Address [facility] [place] [address] * Vancomycin, Trough, Plasma Please draw ~30 minutes prior to dose due at 1000 on Monday. Please do NOT hold dose awaiting level to return. Consider obtaining level via peripheral stick. If peripheral stick is not feasible, please ensure that line ... (01/17/2025 9:53 AM EDT) Vancomycin, Trough, Plasma 12.5 10.0 - 20.0 ug/mL 01/17/2025 10:24 AM EDT [facility] Blood Venous blood specimen / Unknown Venipuncture / Unknown 01/17/2025 9:53 AM EDT 01/17/2025 9:57 AM EDT [facility] - 01/17/2025 10:24 AM EDT Therapeutic Trough level: 10-20ug/mL Supra-therapeutic Trough level: >20 ug/mL Sachin Garza MD LAB BLOOD ORDERABLES Final R ult Performing Organization Address [facility] [place] [address] * US Extremity Limited MSK or Soft [...] at day 5 01/21/2025 2:02 AM EDT [facility] Blood Venous blood specimen / Unknown Venipuncture / Unknown 01/16/2025 12:24 AM EDT 01/16/2025 1:12 AM EDT Narrative [facility] - 01/21/2025 2:02 AM EDT Low blood volume submitted, results may be compromised Gus Tierney APRN LAB MICROBIOLOGY - GENER AL ORDERABLES Final Result [facility] [address] [place] [address] * XR Chest 1 View (01/15/2025 11:21 [...] APRN IMG XR PROCEDURES Final Result * ECG Adult (01/15/2025 10:46 PM EDT) Only the most recent of3 resultswithin the time period is included. EKG DIAGNOSIS CLASS Normal MUSE ECG Ventricular Rate 92 BPM MUSE ECG Atrial Rate 92 BPM MUSE ECG AL Interval 122 ms MUSE ECG QRSD Interval 102 ms MUSE ECG QT Interval 350 ms MUSE ECG QTC Interval 432 ms MUSE ECG P [place] 56 degrees MUSE ECG R [place] 44 degrees MUSE ECG T Wave [place] 57 degrees MUSE ECG Diagnosis Normal sinus [...] LAB HEMATOLOGY METHOD 01/15/2025 10:14 PM EDT [facility] pCO2, Venous 47 40 - 55 mmHg LAB HEMATOLOGY METHOD 01/15/2025 10:14 PM EDT [facility] pO2, Venous 34 25 - 40 mmHg LAB HEMATOLOGY METHOD 01/15/2025 10:14 PM EDT [facility] SO2, Measured, Venous 68 65 - 80 % LAB HEMATOLOGY METHOD 01/15/2025 10:14 PM EDT [facility] Base Excess, Venous 2.8 -2.0 - 3.0 mmol/L LAB HEMATOLOGY METHOD 01/15/2025 10:14 PM EDT [facility] Bicarbonate, Calculated, Venous 29(H) 22 - 26 mmol/L LAB HEMATOLOGY METHOD 01/15/2025 10:14 PM EDT [facility] Hematocrit, Whole Blood 40.4 40.0 - 51.0 % LAB HEMATOLOGY METHOD 01/15/2025 10:14 PM EDT [facility] Sodium, Whole Blood 135(L) 136 - 145 mmol/L LAB HEMATOLOGY METHOD 01/15/2025 10:14 PM EDT [facility] Potassium, Whole Blood 4.3 3.6 - 4.9 mmol/L LAB HEMATOLOGY METHOD 01/15/2025 10:14 PM EDT [facility] Chloride, Whole Blood 99 97 - 107 mmol/L LAB HEMATOLOGY METHOD 01/15/2025 10:14 PM EDT [facility] Glucose, Whole Blood 110(H) 74 - 99 mg/dL LAB HEMATOLOGY METHOD 01/15/2025 10:14 PM EDT [facility] Lactate, Venous, Whole Blood 1.1 0.5 - 2.2 mmol/L LAB HEMATOLOGY METHOD 01/15/2025 10:14 PM EDT [facility] Ionized Calcium, Whole Blood 4.6 4.6 - 5.1 mg/dL LAB HEMATOLOGY METHOD 01/15/2025 10:14 PM EDT [facility] Blood Venous blood specimen / Unknown Venipuncture / Unknown 01/15/2025 10:11 PM EDT 01/15/2025 10:12 PM EDT Gus Tierney APRN LAB BLOOD ORDERABLES Fin al Result Performing Organization Address City/[facility]/ZIP Co de Phone Number [facility] [address] [place] [address] * Lactate, venous (01/02/2025 2:46 AM EDT) Only the most recent of4 resultswithin the time period is included. Lactate, Venous, Whole Blood 1.8 0.5 - 2.2 mmol/L LAB HEMATOLOGY METHOD 01/02/2025 2:55 AM EDT [facility] Blood Venous blood specimen / Unknown Venipuncture / Unknown 01/02/2025 2:46 AM EDT 01/02/2025 2:53 AM EDT Lawrence Hayes MD LAB BLOOD ORDERABLES Final Re sult Performing Organization Address City/[facility] Co de Phone Number [facility] [address] [place] [address] * AL AN ELECTIVE ENDOTRACHEAL AIRWAY, PB ANESTHESIA PLACEHOLDER (01/01/2025 11:28 AM EDT) Narrative Rubén Millan CRNA - 01/01/2025 11:28 AM EDT Rubén Millan CRNA 01/01/2025 11:31 AM Airway Date/Time: 01/01/2025 11:28 AM Reason: elective Airway not difficult General Information and Staff Patient location during procedure: OR SOLAR WATER HEATER INSTALLER: Rubén Millan CRNA Performed: JULES Patient Condition [...] 5.6 <5.7 % 01/01/2025 8:29 AM EDT [facility] Blood Venous blood specimen / Unknown Venipuncture / Unknown 01/01/2025 7:17 AM EDT 01/01/2025 7:23 AM EDT Narrative [facility] - 01/01/2025 8:29 AM EDT HA1C Interpretive Data: Diagnosis of Diabetes: Diabetic > or = 6.5% Pre-diabetic 5.7 to 6.4% Non-diabetic < or = 5.6% Glycemic Targets for Type I and Type II Diabetics: Non- Adults <7.0% Adults <6.0% Children and Adolescents <7.5% Source: [place] [employer]. Standards of medical care in diabetes,2017. Diabetes Care.2017:40 (suppl 1):S1-S135. us Lawrence Hayes MD LAB BLOOD ORDERABLES Final Re sult [facility] [address] [place] [address] * XR Ankle Left 3+ Views (01/01/2025 [...] Reactive Non Reactive 01/01/2025 1:33 AM EDT [facility] Comment:Screening for HIV 1 & 2 antibodies, and P24 antigen is NONREACTIVE. No confirmatory testing is required. Blood Venous blood specimen / Unknown Venipuncture / Unknown 01/01/2025 12:35 AM EDT 01/01/2025 12:52 AM EDT us Kareem Perera MD LAB BLOOD ORDERABLES Final Resu lt Performing Organization Address [facility]/[place] [address] * Hepatitis C Antibody - ED (01/01/2025 12:35 AM EDT) Hepatitis C Antibody Negative Negative 01/01/2025 1:33 AM EDT [facility] Blood Venous blood specimen / Unknown Venipuncture / Unknown 01/01/2025 12:35 AM EDT 01/01/2025 12:52 AM EDT us Kareem Perera MD LAB BLOOD ORDERABLES Final Resu lt Performing Organization Address [facility] [place] [address] * Light Green Top (01/01/2025 12:27 AM EDT) Extra Hold for add-ons 01/01/2025 3:02 AM EDT [facility] Comment:Auto resulted. Blood Venous blood specimen / Unknown 01/01/2025 12:27 AM EDT 01/01/2025 12:42 AM EDT us Kareem Perera MD LAB BLOOD ORDERABLES Final Resu lt Performing Organization Address [facility] [place] [address] * CT OUTSIDE IMAGES (12/31/2024 7:02 PM [...] on File) Date Activated Date Inactivated Comments 02/24/2025 6:40 PM 02/24/2025 10:02 PM Question Answer Comments I have reviewed the capacity from the link above and, if needed, have updated to appropriate status: Yes * Full Code Date Activated Date Inactivated Comments 01/16/2025 7:53 [...] Patient has decision-making capacity? Yes Care Teams Game And Fish Protector Relationship Specialty Start Date End Date Blaine Nava MD [address] [place] [address] [address] [place] [address] [facility] - General 02/17/25
--- OUTSIDE RECORDS SUMMARY | 2025-03-06 14:04 | XMS_ITS | Encounter Summary ---
Author Organization Healthcare Address [address] [place] [address] Care Team Providers Care Brake Repairer Railroad Name Role Phone Renetta Pardo APRN Primary Care Provider [phone] Encounter Details Date Type Department Care Team [...] drink first t traci in the morning (EYE-METHODOLOGIST) to steady your nerves or to get [...] Description 2025 7:50 AM EDT Office Visit [facility] Orthopaedic Surgery & Sports Medicine [address], [address] [place] [address] Stella Brown, MACHINE PIE MAKER [address] [place] [address] 2025 10:30 AM EDT Office Visit [address] [address] Santiago Collado MD [address] [place] [address] 03/27/2025 9:30 AM EDT Office Visit [address] [address] Santiago Collado MD [address] [place] [address] documented as of this encounter Visit [...] documented as of this encounter Care Teams Brake Repairer Railroad Relationship Specialty Start Date End Date Renetta Pardo APRN [address] [place] [address] [place] [address] PCP - General 09/09/23 02/16/25 documented as of this encounter
--- OUTSIDE RECORDS SUMMARY | 2025-03-06 14:04 | XMS_ITS | Encounter Summary ---
Author Organization [facility] Address [address] [place] [address] Care Team Providers Care Superintendent Quarry Name Role Phone Blaine Nava MD Primary Care Provider [phone] Encounter Details Date Type Department Care Team [...] any time in the past 12 m [facility], were you homeless or living [...] drink first t traci in the morning (EYE-ENVIRONMENTAL EMERGENCIES ASSISTANT) to steady your nerves or to [...] Description 2025 7:50 AM EDT Office Visit [facility] Orthopaedic Surgery & Sports Medicine [address], [address] [place] [address] Stella Brown, USER EXPERIENCE RESEARCHER [address] [place] [address] 2025 10:30 AM EDT Office Visit [address] [address] Santiago Collado MD [address] [place] [address] 03/27/2025 9:30 AM EDT Office Visit [address] [address] Santiago Collado MD [address] [place] [address] documented as of this encounter Visit [...] documented as of this encounter Care Teams Superintendent Quarry Relationship Specialty Start Date End Date Blaine Nava MD [address] [place] [address] [address] [place] [address] PCP - General 02/17/25 documented as of this encounter
[2025-03-06 14:50] LABS: Blood Urea Nitrogen 12 mg/dl (9-20); Creatinine Clearance Estimated 200 mL/min (50-200); Creatinine,Serum 0.60 mg/dl (0.66-1.25); Estimated Glomerular Filt Rate 153 ml/min (>60); GFR (African American) 186 ML/MIN (>60)
[2025-03-06 14:57] LABS: Hematocrit 33.7 % (42.0-52.0); Hemoglobin 10.8 g/dL (14.1-18.0); Immature Granulocytes % 0.8 %; Mean Corpuscular HGB Conc 32.0 g/dL (31.8-35.4); Mean Corpuscular Hemoglobin 29.2 pg (27.0-31.2); Mean Corpuscular Volume 91.1 fl (80-94); Nucleated Red Blood Cells % 0 %; Platelet Count 362 K/mm3 (142-424); Red Blood Count 3.70 M/mm3 (4.60-6.20); Red Cell Distribution Width-SD 43.0 fL; White Blood Count 6.4 K/mm3 (4.8-10.8)
[2025-03-06 14:58] LABS: Albumin Level 3.8 g/dl (3.5-5.0)
[2025-03-06 15:01] LABS: Alanine Aminotransferase 24 U/L (12-78); Alkaline Phosphatase 113 U/L (38-126); Aspartate Amino Transferase 31 U/L (17-59); Bilirubin,Direct 0.1 mg/dl (0.0-0.4); Bilirubin,Unconjugated 0.0 mg/dL (0.0-1.1); Creatine Kinase 127 U/L (55-170); Total Protein,Serum 6.7 g/dl (6.3-8.2)
[2025-03-06 15:02] LABS: Bilirubin,Indirect 0.0 mg/dL (0.0-0.9); Bilirubin,Total 0.1 mg/dl (0.2-1.3)
[2025-03-06 16:17] LABS: C-Reactive Protein 32.1 mg/L (0-4)
== END 2025-03-06 14:50 | disposition home or self-care (01) ==
LOC: INF 13:58
PROVIDERS: Visit Provider Orthopaedic Surgery
DX: T81.49XA Infection following a procedure, other surgical site, initial encounter (principal); X58.XXXA Exposure to other specified factors, initial encounter; Y93.9 Activity, unspecified; Y92.9 Unspecified place or not applicable
CPT/HCPCS: 36592; 80076; 82550; 82565; 84520; 85025; 86140; 96523

== ENCOUNTER 2025-03-10 12:54 | Outpatient (CLI) | payer MEDICAID, SELFPAY ==
--- OUTSIDE RECORDS SUMMARY | 2025-01-15 21:32 | XMS_ITS | Encounter Summary ---
Author Organization Healthcare Address [address] [place] [address] Care Team Providers Care Staple Fiber Washer Name Role Phone Renetta Pardo APRN Primary Care Provider [phone] Reason for Visit * Reason Comments Post-op Problem * Auth/Cert (Routine) Specialty Diagnoses / Procedures Referred By Adalid t Referred To Contact Diagnoses Acute postoperative pain Cellulitis of leg, left Cellulitis of left lower extremity Sepsis following procedure, initial encounter ([facility]) recent LLE surgery @ now with cellulitis Sachin Garza MD [id number] [place] [address] Phone: tel: fax: [facility] Inpatient [address] [place] [address] Phone: tel: Referral ID Status Reason Start Date Expiration Date Visits Re quested Visits Authorized [id number] 1 1 Encounter Details Date Type Department Care Team (Latest Contact Info) Description 01/15/2025 9:32 PM EDT - 01/22/2025 5:16 PM EDT Hospital Encounter [facility] Inpatient [address] [place] [address] Philippe Mann MD [address] [place] [address] Jeffrey Matute MD [address] [facility] [place] [address] Danny Ly MD [address] [place] [address] Sachin Garza MD [address] [facility] [address] [place] [address] Cellulitis of leg, left (Primary Dx); Sepsis following procedure, initial encounter ([facility]); Cellulitis of left lower extremity; [...] place to sleep or slept in a alf (including now)? No 09/12/2023 Humiliation, Afraid, Rape, [...] any time in the past 12 m [facility], were you homeless or living in a alf (including now)? No 01/17/2025 CAGE ASSESSMENT Answer [...] drink first t traci in the morning (EYE-SPIKE MACHINE FEEDER) to steady your nerves or to get rid of a hangover? 0 09/10/2023 CAGE Questionnaire Score 0 024 Utilities Answer Date Recorded In the past 12 months has th e [employer], gas, oil, or water company threatened to [...] the video go to this web address: https://bit.Girly Stuff/[email or web address] Or, scan this QR code with your smart phone ?? [facility] * Rosaura [facility] - Leigh Rg RN - 01/22/2025 4:21 PM EDT Images from the original note were not included. 43648 Flushing Your PICC Line at Home Your [...] soap and water, use an alcohol-based hand entry level manufacturing engineer. The gel should have at least 60% [...] PICC. Last Reviewed Date: 2024 00:00:00 ?? 9470-7061 The [employer]. All rights reserved. This information is not intended as a substitute for professional medical care. Always follow your healthcare professional's instructions. * Rosaura [facility] - Leigh Rg RN - 01/22/2025 4:21 PM EDT Images from the original note were not included. 63303 Discharge Instructions: Changing the Dressing on Your [...] damage Last Reviewed Date: 2024 00:00:00 ?? 6323-1354 The [employer]. All rights reserved. This information is not [...] the video go to this web address: https://archify/3RFzEUT Or, scan this QR code with your smart phone ?? [facility] * Leigh Muller RN - 01/22/2025 4:20 PM EDT Images from the original note were not included. 45682 Understanding Post Sepsis Syndrome (PSS) Sepsis is [...] infections Last Reviewed Date: 2022 00:00:00 ?? 5641-6600 [employer]. All rights reserved. This information is not intended as a substitute for professional medical care. Always follow your healthcare professional's instructions. * Rosaura [facility] - Leigh Rg RN - 01/22/2025 4:20 PM EDT Images from the original note were not included. [id number] Buckle (Torus) Fracture of a Leg Your [...] wet, you can dry it with a assistant hairstylist on the cool setting. ? Put an [...] doctor Last Reviewed Date: 2024 00:00:00 ?? 2927-4134 The [employer]. All rights reserved. This information is not intended as a substitute for professional medical care. Always follow your healthcare professional's instructions. * [facility] - Leigh Rg RN - 01/22/2025 4:20 PM EDT Images from the original note were not included. 92440 Discharge Instructions for Cellulitis You have been [...] are in pain. Ask what kind of vsiq-nfi-wdvkjcx medicine you can take for pain. ? [...] Vomiting. Last Reviewed Date: 2024 00:00:00 ?? 8370-2516 The [employer]. All rights reserved. This information is not intended as a substitute for professional medical care. Always follow your healthcare professional's instructions. * Discharge Summary - Mauricio Mondragon MD - 01/22/2025 4:16 PM EDT Hospitalization Admit Date/Time: 01/15/2025 9:32 PM Admitting Attending: Sachin Garza Discharge Date: 01/22/25 Discharge Attending Physician: Sachin Garza MD PCP name and Address: Renetta Pardo, [address] [place] / [facility] [address] Referring provider name and address: Maldonado Luciano PA [address] [place] [address] [place] [address] Chief Concern, Brief History of Present Illness, and Hospital Course Patient arrived to [facility] on 01/15/25 with concern for surgical [...] senna-docusate 8.6-50 MG tablet Commonly known as: Janeht-Colace Take 1 tablet by mouth 2 times a day. Where to Get Your Medications These medications were sent to [facility] -[place], [place] - [address], [facility] [address] DAPTOmycin injection These medications were sent to [facility] [place], [place] - [address] [facility] [address] oxyCODONE 5 MG immediate release capsule Discharge Diagnosis Medical Problems Active and Resolved Hospital Problems Hospital Closed fracture of left tibial plateau Overview Addendum 09/16/2023 1:42 PM by Rolanda Adams APRN, KALYANI ORT consulted TROM in place WB per ORT 09/15: ORIF L tibial plateau fx Follow up with Dr. Nava on 10/04 * (Principal) Cellulitis of leg, left Sepsis following procedure ([facility]) Cellulitis of left lower extremity [...] Time Provider Department Center 01/27/2025 11:00 AM [facility] 02/03/2025 8:10 AM Lawrence Hayes MD [facility] 02/11/2025 1:00 PM Ary Santiago APRN IDBCCLX [place] 03/03/2025 1:00 PM Ary Santiago APRN IDBCCLX [place] Test Results Pending At Discharge Pending Labs [...] General: Spoke with: Patient, Family, and Bedside employment assistant and Interventions: Assessed: Dressing Dressing Interventions: CDI [...] please contact the Orthopedic Transition Nurse at [phone] Monday through Monday 8:00 am to 2:30 pm. If you feel your concern is a medical emergency please call 911 immediately * Progress Notes - Anna Elam RN - 01/22/2025 9:28 AM EDT Case Management Discharge Note Ravin Ribeiro 34 y.o. male CSN: [id number] Admission: 01/15/2025 9:32 PM Primary Problem: Cellulitis of leg, left Primary Dry Mill Operator: Primary Caregiver: Self Assistance Available at Discharge: Current Outpatient/Agency/Support Group: DME Availability of Care Givers (#Hours): 24 hours Family/Dry Mill Operator(s) Willingness Assessed to care for patient at home: Yes Family/Dry Mill Operator(s) Readiness Assessed to care for patient at [...] Community Agency(s): Patient's Choice of Community Agency(s): [facility] Patient/Family Anticipated Services at Transition: Patient/Family Anticipated [...] in place. Pt will follow up at [facility] for weekly PICC care and labs. First appointment is scheduled for 01/27 at 11 AM. Pt's family will be able to provide assistance and transportation. [facility] will complete teaching today and deliver IV ABX to bedside around 3 PM. Pt and S/O is aware and agreeable to discharge POC. Renzo [facility] [phone] Anna Elam RN * Progress Notes - [...] required Ayden Canseco MD PGY-1, Orthopaedic Surgery [facility] Orthopaedic Trauma Service Pager: [phone] Orthopaedic Recon/Spine/Foot and Ankle Service Pager: [phone] Cosigned by Lawrence Hayes MD at 01/22/2025 [...] required Red Mondragon MD Orthopaedic Surgery PGY-1 [facility] Orthopaedic Trauma Service Pager: [phone] Orthopaedic Recon/Spine/Foot and Ankle Service Pager: [phone] Personal Pager: [phone] Cosigned by Lawrence Hayes MD at 01/22/2025 1:06 PM EDT * Procedures - Norma Miranda RN - 01/21/2025 7:01 PM EDTAssociated Order(s): Insert PICC line Insert PICC line Date/Time: 01/21/2025 7:01 PM Performed by: Norma Miranda RN Authorized by: Sachin Garza MD [place] Protocol: Verbal consent obtained?: Yes Written consent [...] preference Patient position: Supine Catheter Lot #: [id number] Catheter pipe racker: Credit Karma PowerPICC Solo Catheter placed: Single lumen Catheter [...] 01/21/2025 3:28 PM EDT Referrals sent to [facility] and for for possible home IV antibiotic infusion. There was no accepting companies in patient's area. CM spoke with patient and he is agreeable to either go to his local hospital [facility] or come to [facility] in [place] for his weekly PICC care/labs if needed. * Nursing Note - Camden Vital, RN - 01/21/2025 1:45 PM EDT Orthopedic Transition Nurse Note General: Spoke with: Patient, Family, and Bedside employment assistant and Interventions: Assessed: Dressing Dressing Interventions: CDI [...] please contact the Orthopedic Transition Nurse at [phone] Monday through Monday 8:00 am to 2:30 pm. If you feel your concern is a medical emergency please call 911 immediately * Steff Odell RN - 01/21/2025 11:57 AM EDT Images from the original note were not included. [id number] PICC Line Care PICC stands for peripherally [...] arm Last Reviewed Date: 2024 00:00:00 ?? 8082-2412 The [employer]. All rights reserved. This information is not intended as a substitute for professional medical care. Always follow your healthcare professional's instructions. * Steff Odell RN - 01/21/2025 11:56 AM EDT Images from the original note were not included. [id number] * Steff Odell RN - 01/21/2025 11:56 AM EDT Images from the original note were not included. 29111 * Steff Odell RN - 01/21/2025 11:56 [...] your house or a medical facility. The assistant case manager/social psychologist will setthat up based on your insurance. [...] or during weekends/[place] holidays, call the paging road roller operator at . Ask for the infectious disease fellow telephone claims representative. Call the clinic if you have any [...] from the original note were not included. 39710 Flushing Your PICC Line at Home Your [...] soap and water, use an alcohol-based hand entry level manufacturing engineer. The gel should have at least 60% [...] Put the syringe into a special container ([employer] container). When to contact your doctor Contact [...] PICC. Last Reviewed Date: 2024 00:00:00 ?? 3536-2055 The [employer]. All rights reserved. This information is not intended as a substitute for professional medical care. Always follow your healthcare professional's instructions. * [facility] - Steff Paz RN - 01/21/2025 11:56 AM EDT Images from the original note were not included. [id number] Daptomycin Injection Brand Name(s): Cubicin??, Cubicin RF??; [...] of all of the prescription and nonprescription (tkwq-ozk-mrzcnck) medicines you are taking, as well as [...] or pharmacist about specific clinical use. The [place] [employer] represents that the information provided hereunder was formulated with a reasonable standard of care, and in conformity with professional standards in the field. The [place] [employer] makes no representations or warranties, express or implied, including, but not limited to, any implied warranty of merchantability and/or fitness for a particular purpose, with respect to such information and specifically disclaims all such warranties. Users are advised that decisions regarding drug therapy are complex medical decisions requiring the independent, informed decision of an appropriate health respiratory care instructor, and the information is provided for informational purposes only. The entire monograph for a drug should be reviewed for a thorough understanding of the drug's actions, uses and side effects. The [place] [employer] does not endorse or recommend the use of any drug.The information is not a substitute for medical care. AHFS?? Patient Medication Information?. ?? Copyright, 2023. The [place] [employer] Pharmacists??, [address], [address], [place], [place]. All Rights Reserved. Duplication for commercial use must be authorized by [facility]. Selected Revisions: July 28, 2019. AHFS?? Patient Medication Information?. ?? Copyright, 2024 * Rosaura [facility] - Steff Paz RN - 01/21/2025 11:56 AM EDT Images from the original note were not included. 89874 Discharge Instructions: Caring for Your Peripherally Inserted [...] damage. Last Reviewed Date: 2024 00:00:00 ?? 5992-3586 The [employer]. All rights reserved. This information is not intended as a substitute for professional medical care. Always follow your healthcare professional's instructions. * Rosaura [facility] - Steff Paz RN - 01/21/2025 11:56 AM EDT Images from the original note were not included. 56150 Central Line Infections You need a central [...] water. Or they use an alcohol-based hand entry level manufacturing engineer containing at least 60% alcohol. ? Using [...] (warm or cold), and use alcohol-based hand entry level manufacturing engineer with at least 60% alcohol as directed. To clean your hands well,follow the guidelines on this sheet. Visitors should wash their hands well when they arrive and when they leave. ? Make sure healthcare staff and your visitors clean their hands. They should use soap and clean, running water or an alcohol-based hand entry level manufacturing engineer before and after checking the line. Don?t [...] good choice for cleaning your hands. The entry level manufacturing engineer should have at least 60% alcohol. Note that some germs can't be killed by alcohol. Your healthcare team can answer any questions you have about when to use a hand entry level manufacturing engineer, or when it?s better to wash with soap and water. Follow these steps: ? Spread the hand entry level manufacturing engineer in the palm of one hand. (Check the package for specific guidelines.) ? Rub your hands together briskly. Clean the backs of your hands, the palms, between your fingers, and up your wrists. ? Rub until the entry level manufacturing engineer is gone and your hands are completely [...] skin Last Reviewed Date: 2023 00:00:00 ?? 6371-1770 The [employer]. All rights reserved. This information is not [...] Single Lumen PICC Patient Specific Outpatient Circumstances: [address] [place] [address] Family Support: Extended Emergency Contact Information Primary Emergency Contact: Hayley Buenrostro Address: [address] [place] [address] Mobile Relation: Significant Other Preferred language: Algerian Litigation Associate needed? No Secondary Emergency Contact: Jenny Buenrostro Address: [place] [address] [place] Relation: Mother Contact information: Ravin Ribeiro [phone] (home) Outpatient services (including home infusion, home health, facility referral: See recent [place] case management/social work note for finalization of services ID follow up appointment: Future Appointments Date Time Provider Department Center 02/03/2025 8:10 AM [facility] 02/11/2025 1:00 PM Ary Santiago APRN [...] via secure chat or staff messaging in [employer] Patient and family will need to be [...] days prior to presentation. He presented to [facility] wherehe was febrile to 101.3F. Upon transfer [...] PA-C Division of Infectious Diseases Available on [employer]. Chat History, assessment, and plan discussed with [...] labs to: ID OPAT Team Fax #: [phone] Appointments: Ary Santiago APRN on 02/11 at 1PM and 03/03 at 1PM [facility]: [address] [place] [address] (Select Option 3 for IV Antibiotic / PICC line related issues) For questions regarding OPAT prior to discharge, reach out to the OPAT team via [employer] Secure Chat (Group: OPAT Referral Team). For all questions regarding OPAT after discharge should be directed to the OPAT Team at (Select Option 3 for IV Antibiotics/PICC Issues) between 8am-5pm. After 5 pm, or during weekends/[place] holidays, please call the paging road roller operator at to reach the on-call ID [...] at 01/18/25 1133 [2] Allergies Allergen Reactions [place] Hives * Consults - Delma Ortiz - 01/21/2025 10:00 AM EDT Pastoral Care Note: Patient was appreciative of marketing and communications officer's visit and expressed gratitude to the care team. he said family is on their way to him. Referral From: Field Operations Coordinator Initiated Pastoral Care Provided For: Patient Patient Profile: Spiritual Assessment: Support Systems/ Spiritual Resources: Treasure, Sense of Peace, Trust, Gratitude Spiritual Needs: Emotional support, Spiritual ritual Spiritual Issues: Discharge Interventions: Pastoral Care Outcomes: Patient Outcomes: Appreciative of Field Operations Coordinator Support, Expresses acceptance, Gratitude Cosigned by Macrina Dumont at 01/21/2025 6:24 PM EDT Associated attestation - Macrina Dumont - 01/21/2025 6:24 PM EDT This is to attest marketing and communications officer recruitment intern chart note has been reviewed and [...] ambulate in room/hallway with family and staff air defense officer while remains inpatient. Patient demonstrates no [...] Prevent or Manage Infection Flowsheets (Taken 01/20/2025 9217) Infection Management: aseptic technique maintained Fever Reduction/Comfort [...] Agree with above assessment and evaluation from resident/BOILER WELDER. * Progress Notes - Anna Elam RN - 01/20/2025 10:48 AM EDT Case Management Adult Progress Note Ravin Ribeiro 34 y.o. male CSN: [id number] Admission: 01/15/2025 9:32 PM Primary Problem: Cellulitis of leg, left Anticipated Discharge Date: TBD Pt to OR today for repeat I&D on left knee. Pt has worsening NORMAN and team wants to repeat AM labs. Final ID recs and OPAT eval are pending. [facility]erral [facility] and HH today. Pt's medicaid may be a potential barrier to HH. CM will continue to assist with discharge POC. Anna Elam RN * Op Note - Bob Nava MD - 01/20/2025 10:26 AM EDT Operative Note Date: 01/20/25 Location: [facility] OR Name: Ravin Ribeiro, : 1990, Diagnoses: Pre-op Diagnosis Closed fracture of left tibial plateau with routine healing, subsequent encounter Left proximal tibia (knee region) deep abscess Post-op Diagnosis Closed fracture of left tibial plateau with routine healing, subsequent encounter Left proximal tibia (knee region) deep abscess Procedure(s): Incision and drainage of left knee deep abscess Attending Surgeon(s): * Bob Nava - Primary Identification Clerk(s): * Emely Giron MD - Resident - [...] days prior to presentation. He presented to [facility] wherehe was febrile to 101.3F. Upon transfer [...] PA-C Division of Infectious Diseases Available on [employer]. Chat History, assessment, and plan discussed with [...] suspension 30 mL 30 mL Oral DailyPRN Tryone Howard MD [Transfer Hold] mupirocin (Bactroban) 2 [...] Gustavo Hightower MD [2] Allergies Allergen Reactions [place] Hives * Consults - Ricco Howard RN [...] required Ayden Canseco MD PGY-1, Orthopaedic Surgery [facility] Orthopaedic Trauma Service Pager: [phone] Orthopaedic Recon/Spine/Foot and Ankle Service Pager: [phone] Cosigned by Sachin Garza MD at 01/20/2025 [...] Course 1. Sepsis following procedure, initial encounter ([facility]) 2. Cellulitis of left lower [...] admission Level of Mobility: Ambulatory- community Mobility [place]: Independent gait without device (intermittne use of [...] Mobility Bed Mobility Exam: Scooting/Bridging Level of [place]: Independent Bed Mobility Exam: Supine to Sit Level of [place]: Independent Transfers Transfer Exam: Sit to stand Level of [place]: Stand-by assist Physical/Nonphysical Assist: Verbal Cues Assistive Device: Walker, rolling Transfer Exam: Stand to Sit Level of [place]: Stand-by assist Physical/Nonphysical Assist: Verbal Cues Assistive Device: Walker, rolling Toilet Transfer Level of [place]: Stand-by assist Physical/Nonphysical Assist: Verbal Cues Type of Transfer: Ambulation, To toilet Assistive Device: Walker, rolling, Grab bar Functional Mobility Device: Rolling walker Assistance: Standby assist <Household distance, cuing for safety, pacing activity, RW management, and encouraged L LE WBAT-as permitted per chart (pt reports being used to NWB for pain management FLIGHT COORDINATOR) Balance Postural Appearance Posture: Within Functional Limits [...] admission Level of Mobility: Ambulatory- community Mobility [place]: Independent gait without device (intermittne use of [...] Mobility Bed Mobility Exam: Scooting/Bridging Level of [place]: Independent Bed Mobility Exam: Supine to Sit Level of [place]: Independent Transfers Transfer Exam: Sit to stand Level of [place]: Stand-by assist Physical/Nonphysical Assist: Verbal Cues Assistive Device: Walker, rolling Transfer Exam: Stand to Sit Level of [place]: Stand-by assist Physical/Nonphysical Assist: Verbal Cues Assistive [...] 3-5 steps with a railing?: A little [facility] 6-Clicks Mobility Assessment Total : 23 [...] (H) Lactate ?? Assessment & Plan: Ravin iRbeiro is a 34 y.o. male patient with [...] required Red Mondragon MD Orthopaedic Surgery PGY-1 [facility] Orthopaedic Trauma Service Pager: [phone] Orthopaedic Recon/Spine/Foot and Ankle Service Pager: [phone] Personal Pager: [phone] Cosigned by Ye Navarro MD at 01/21/2025 [...] AM EDT Operative Note Date: 01/18/25 Location: [facility] Name: Ravin Ribeiro, : 1990, Diagnoses: Pre-op Diagnosis Cellulitis of left lower extremity Post-op Diagnosis Cellulitis of left lower extremity Procedure(s): Irrigation and debridement of left medial tibial plateau deep abscess Attending Surgeon(s): * Ye Navarro - Primary Identification Clerk(s): * Harvey Swift MD - Resident - [...] well as other factors in accordance with [place] policy. The left lower extremity was then 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 employment assistant and Interventions: Assessed: Wound 01/01/25 Surgical Open Surgical Incision Pretibial Left;Proximal (Active) Wound Assessment Red 01/15/250 Margins Well-defined edges;Attached edges 01/15/252149 Janeth-Wound Assessment Red 01/15/25 2150 Closure [place] 01/15/252149 Wound 01/01/25 Face Left;Upper (Active) Education: Education provided on: Pain protocol/management Plan of Care: Follow up with TBD. Op-Plan: Awaiting to see how patient responds to IV abx. Contact Card Given: no Comments: Team is waiting to see if patient improves on IV abx. Awaiting ID recs. For medical questions or concerns after discharge, please contact the Orthopedic Transition Nurse at [phone] Monday through Monday 8:00 am to 2:30 [...] ] Family [ ] Friend [ ] Litigation Associate [X] Medical records HISTORY OF PRESENT ILLNESS: [...] medial pretibial incision so he presented to [facility] for evaluation. He was febrile to101.3F at [...] on day of presentation. He lives in [place] with his , CONSTANZA, and 2 young [...] days prior to presentation. He presented to [facility] wherehe was febrile to 101.3F. Upon transfer [...] [facility] Division of Infectious Diseases Available on [employer]. Chat History, assessment, and plan discussed with ID attending, Dr. Azucena Collado The following complex inpatient infectious disease services were performed today: Complex antimicrobial therapy counseling and treatment [1] History reviewed. No pertinent past medical history. [2] Past Surgical History: Procedure Laterality Date LEG SURGERY Left [3] Allergies Allergen Reactions [place] Hives [4] Current Facility-Administered Medications Medication Dose [...] 10 mL 10 mL Intravenous PRN Tyrone Hoawrd MD traMADol (Ultram) tablet 50 mg 50 mg Oral q6h PRN Tyrone Hoawrd MD 50 mg at 01/16/25 1226 vancomycin [...] Note Ravin Ribeiro 34 y.o. male CSN: [id number] Admission: 01/15/2025 9:32 PM Primary Problem: Cellulitis of leg, left Oven Roaster reviewed chart and spoke with patient to complete this Initial Case Management Assessment. PCP: Renetta Pardo APRN Emergency Contact: Extended Emergency Contact Information Primary Emergency Contact: Hayley Buenrostro Address: [address] [place] [address] Mobile Relation: Significant Other Preferred language: Algerian Litigation Associate needed? No Secondary Emergency Contact: Jenny Buenrostro Address: [address] [place] [address] Mobile Relation: Mother Insurance: Primary Visit Coverage Payer Plan Sponsor Code Group Number Group Name [employer] MOLINA [employer] MEDICAID Primary Visit Coverage Subscriber Subscriber ID Subscriber Name Subscriber N Subscriber Address [id number] RAVIN RIBEIRO [id number] [place] [address] Patient information: Primary Caregiver: Self Support System: Immediate family Daily Living Activities: Functional Status: Independent Living Arrangements: Spouse/Significant other, Family Type of Residence: Private residence, Single Level [address] [place] [address] Current DME: Equipment Currently Used at Home: [...] Outpatient Dialysis Services: Living Will/Advance Directive/Power of Medical Device Sales Consultant /Guardian: Have you reviewed your Advance Directive [...] Pt states he lives at home in [place] with his , CONSTANZA, and two small 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 employment assistant and Interventions: Assessed: Wound 01/01/25 Surgical Open Surgical Incision Pretibial Left;Proximal (Active) Wound Assessment Red 01/15/25 2150 Margins Well-defined edges;Attached edges 01/15/25 2150 Janeth-Wound Assessment Red 01/15/25 2150 Closure [place] 01/15/25 2150 Wound 01/01/25 Face Left;Upper (Active) [...] please contact the Orthopedic Transition Nurse at [phone] Monday through Monday 8:00 am to 2:30 [...] tibial pulse, cap refill <2 sec, digits [facility] Orthopedic Surgery Tertiary Exam Completed 01/16/25 No [...] exams. Mitch Giron MD PGY-3, Orthopaedic Surgery [facility] Orthopaedic Trauma Service Pager: [phone] Orthopaedic Recon/Spine/Foot and Ankle Service Pager: [phone] Cosigned by Sachin Garza MD at 01/18/2025 [...] wound. Based upon recent changes to [place] law related to prescribing opioid pain medications, [...] please contact the Orthopedic Transition Nurse at [phone] Monday through Monday 8:00 am to 2:30 [...] examinations WRadha Howard MD PGY-2, Orthopaedic Surgery [facility] Cosigned by Sachin Garza MD at [...] fracture Tabitha Howard MD PGY-2, Orthopaedic Surgery [facility] Orthopaedic Trauma Service Pager: [phone] Orthopaedic Recon/Spine/Foot and Ankle Service Pager: [phone] [...] 25 tablet 0 [4] Allergies Allergen Reactions [place] Hives Cosigned by Sachin Garza MD at [...] 01/16/25 06 Sepsis following procedure, initial encounter ([facility]) Cellulitis of left lower extremity [...] diagnosis was Sepsis following procedure, initial encounter ([facility]). Diagnoses of Cellulitis of left [...] Drug use: Never [5] Allergies Allergen Reactions [place] Hives Gus Vigil APRN 01/16/25656 Cosigned by [...] 01/16/25 0733 Sepsis following procedure, initial encounter ([facility]) Cellulitis of left lower extremity Acute postoperative pain Ultimately, this patient Was admitted (Admission) The primary encounter diagnosis was Sepsis following procedure, initial encounter ([facility]). Diagnoses of Cellulitis of left [...] Care Team (Late st Contact Info) Description 2025 7:50 AM EDT Office Visit [facility] Orthopaedic Surgery & Sports Medicine [address] [place] [address] Stella Brown, [employer] [address] [place] [address] 2025 10:30 AM EDT Office Visit [facility] [address] [place] [address] Santiago Collado MD [address] [place] [address] [address] [place] [address] 03/27/2025 9:30 AM EDT Office Visit [address] [address] Santiago Collado MD [address] [place] [address] [address] [place] [address] Scheduled Orders Name Type Priority Associated Diagnoses [...] 44.4(H) <=8.0 mg/L 01/22/2025 9:25 AM EDT [facility] Blood Venous blood specimen / Unknown Venipuncture / Unknown 01/22/2025 5:04 AM EDT 01/22/2025 5:31 AM EDT Narrative [facility] - 01/22/2025 9:25 AM EDT This CRP test is appropriate for assessment of infection, systemic inflammation and/or tissue injury. To assess cardiovascular disease risk order high sensitivity CRP (CRPH). us Michelle ZULUAGA LAB BLOOD ORDERABLES Final Res ult [facility] [address] [place] [address] * Lavender Top (01/22/2025 5:04 AM EDT) Extra Hold for add-ons 01/22/2025 8:02 AM EDT [facility] Comment:Auto resulted. Blood Venous blood specimen / Unknown 01/22/2025 5:04 AM EDT 01/22/2025 5:30 AM EDT us Sachin Garza MD LAB BLOOD ORDERABLES Final R esult [facility] [address] [place] [address] * (ABNORMAL) Basic metabolic panel (01/22/2025 5:04 AM EDT) Glucose, Plasma 91 74 - 99 mg/dL 01/22/2025 6:01 AM EDT [facility] BUN, Plasma 33(H) 7 - 21 mg/dL 01/22/2025 6:01 AM EDT [facility] Creatinine, Plasma 1.47(H) 0.70 - 1.20 mg/dL 01/22/2025 6:01 AM EDT [facility] BUN/Creatinine Ratio 22 01/22/2025 6:01 AM EDT [facility] Sodium, Plasma 137 136 - 145 mmol/L 01/22/2025 6:01 AM EDT [facility] Potassium, Plasma 5.3(H) 3.6 - 4.9 mmol/L 01/22/2025 6:01 AM EDT [facility] Chloride, Plasma 100 97 - 107 mmol/L 01/22/2025 6:01 AM EDT [facility] CO2, Plasma 28 22 - 29 mmol/L 01/22/2025 6:01 AM EDT [facility] Anion Gap 9 6 - 16 mmol/L 01/22/2025 6:01 AM EDT [facility] Total Calcium, Plasma 9.6 8.9 - 10.2 mg/dL 01/22/2025 6:01 AM EDT [facility] eGFRcr 63.4 mL/min/1.7 3m*2 01/22/2025 6:01 AM EDT [facility] Comment:Reported eGFRcr in m L/min/1.73m2 is based the CKD-EPI 2020 equation that does not use a race coefficient. Blood Venous blood specimen / Unknown Venipuncture / Unknown 01/22/2025 5:04 AM EDT 01/22/2025 5:31 AM EDT us Sachin Garza MD LAB BLOOD ORDERABLES Final R esult [facility] [address] [place] [address] * (ABNORMAL) CBC (01/21/2025 7:29 PM EDT) WBC Count 10.10 3.70 - 10.30 10*3/uL LAB HEMATOLOGY METHOD 01/21/2025 7:42 PM EDT [facility] RBC Count 3.82(L) 4.60 - 6.10 10*6/uL LAB HEMATOLOGY METHOD 01/21/2025 7:42 PM EDT [facility] HGB 11.5(L) 13.7 - 17.5 g/dL LAB HEMATOLOGY METHOD 01/21/2025 7:42 PM EDT [facility] HCT 35.2(L) 40.0 - 51.0 % LAB HEMATOLOGY METHOD 01/21/2025 7:42 PM EDT [facility] Platelet Count 446(H) 155 - 369 10*3/uL LAB HEMATOLOGY METHOD 01/21/2025 7:42 PM EDT [facility] MCV 92 79 - 98 fL LAB HEMATOLOGY METHOD 01/21/2025 7:42 PM EDT [facility] MCH 30.1 26.0 - 32.0 pg LAB HEMATOLOGY METHOD 01/21/2025 7:42 PM EDT [facility] MCHC 32.7 30.7 - 35.5 g/dL LAB HEMATOLOGY METHOD 01/21/2025 7:42 PM EDT [facility] RDW 13.1 11.5 - 14.5 % LAB HEMATOLOGY METHOD 01/21/2025 7:42 PM EDT [facility] MPV 9.1 8.8 - 12.5 fL LAB HEMATOLOGY METHOD 01/21/2025 7:42 PM EDT [facility] nRBC 0.0 <=0.0 per 100 WBCs LAB HEMATOLOGY METHOD 01/21/2025 7:42 PM EDT [facility] Blood Venous blood specimen / Unknown Venipuncture / Unknown 01/21/2025 7:29 PM EDT 01/21/2025 7:35 PM EDT us Sachin Garza MD LAB BLOOD ORDERABLES Final R esult [facility] [address] [place] [address] * (ABNORMAL) Basic metabolic panel (01/21/2025 7:29 PM EDT) Glucose, Plasma 122(H) 74 - 99 mg/dL 01/21/2025 8:03 PM EDT [facility] BUN, Plasma 31(H) 7 - 21 mg/dL 01/21/2025 8:03 PM EDT [facility] Creatinine, Plasma 1.64(H) 0.70 - 1.20 mg/dL 01/21/2025 8:03 PM EDT [facility] BUN/Creatinine Ratio 19 01/21/2025 8:03 PM EDT [facility] Sodium, Plasma 139 136 - 145 mmol/L 01/21/2025 8:03 PM EDT [facility] Potassium, Plasma 4.6 3.6 - 4.9 mmol/L 01/21/2025 8:03 PM EDT [facility] Chloride, Plasma 101 97 - 107 mmol/L 01/21/2025 8:03 PM EDT [facility] CO2, Plasma 26 22 - 29 mmol/L 01/21/2025 8:03 PM EDT [facility] Anion Gap 12 6 - 16 mmol/L 01/21/2025 8:03 PM EDT [facility] Total Calcium, Plasma 9.1 8.9 - 10.2 mg/dL 01/21/2025 8:03 PM EDT [facility] eGFRcr 55.6 mL/min/1.7 3m*2 01/21/2025 8:03 PM EDT [facility] Comment:Reported eGFRcr in m L/min/1.73m2 is based the CKD-EPI 2020 equation that does not use a race coefficient. Blood Venous blood specimen / Unknown Venipuncture / Unknown 01/21/2025 7:29 PM EDT 01/21/2025 7:35 PM EDT Sachin Garza MD LAB BLOOD ORDERABLES Final R esult [facility] [address] [place] [address] * PICC SINGLE LUMEN (SMARTFORM LINK) (01/21/2025 7:01 PM EDT) Narrative Norma Miranda RN - 01/21/2025 7:01 PM EDT Norma Miranda RN 01/21/2025 7:19 PM Insert PICC line Date/Time: 01/21/2025 7:01 PM Performed by: Norma Miranda RN Authorized by: Sachin Garza MD [place] Protocol: Verbal consent obtained?: Yes Written consent [...] preference Patient position: Supine Catheter Lot #: [id number] Catheter pipe racker: Bard PowerPICC Solo Catheter placed: Single lumen [...] at day 4 2024 7:15 AM EDT [facility] Gram Stain Result No polymorphonuclear leukocytes seen 01/25/2025 7:15 AM EDT [facility] Gram Stain Result No organisms seen 01/25/2025 7:15 AM EDT [facility] Swab Structure of left knee region / Unknown 01/20/2025 10:42 AM EDT 01/20/2025 11:25 AM EDT Comment:Pre-op diagnosis: Closed fracture of left tibial plateau with routine healing, subsequent encounter [S82.142D] Bob Nava MD LAB MICROBIOLOGY - GENERAL O RDERABLES Final Result [facility] [address] [place] [address] * Fungal Culture, Routine (01/20/2025 10:42 AM EDT) Culture No Fungal Growth at 1 Week 01/28/2025 7:34 AM EDT [facility] Swab Structure of left knee region / Unknown 01/20/2025 10:42 AM EDT 01/20/2025 11:25 AM EDT Comment:Pre-op diagnosis: Closed fracture of left tibial plateau with routine healing, subsequent encounter [S82.142D] us Bob Nava MD LAB MICROBIOLOGY - GENERAL O RDERABLES Final Result Performing Organization Address [facility] Co de Phone Number [facility] [address] [place] [address] * Anaerobic Culture (01/20/2025 10:42 AM EDT) Culture No growth at day 4 01/28/2025 7:09 AM EDT [facility] Swab Structure of left knee region / Unknown 01/20/2025 10:42 AM EDT 01/20/2025 11:25 AM EDT Comment:Pre-op diagnosis: Closed fracture of left tibial plateau with routine healing, subsequent encounter [S82.142D] us Bob Nava MD LAB MICROBIOLOGY - GENERAL O RDERABLES Final Result Performing Organization Address [facility] [place] [address] * Fungal Culture, Tissue and SYEDA (01/20/2025 10:30 AM EDT) Culture Reading Mycological 4 Weeks No Fungal Growth at 4 Weeks 02/18/2025 6:03 AM EDT [facility] SYEDA No fungal elements seen 02/18/2025 6:03 AM EDT [facility] Tissue Structure of left knee region / Unknown 01/20/2025 10:30 AM EDT 01/20/2025 11:23 AM EDT Comment:Pre-op diagnosis: Closed fracture of left tibial plateau with routine healing, subsequent encounter [S82.142D] us Bob Nava MD LAB MICROBIOLOGY - GENERAL O RDERABLES Final Result Performing Organization Address [facility] Co de Phone Number [facility] [address] [place] [address] * AFB Culture, Non Respiratory Source and Acid Fast Stain (01/20/2025 10:30 AM EDT) AFB Culture No Mycobacterial Growth at 6 Weeks 03/04/2025 4:02 PM EDT [facility] Acid Fast Stain No acid fast bacilli seen 03/04/2025 4:02 PM EDT [facility] Tissue Structure of left knee region / Unknown 01/20/2025 10:30 AM EDT 01/20/2025 11:23 AM EDT Comment:Pre-op diagnosis: Closed fracture of left tibial plateau with routine healing, subsequent encounter [S82.142D] Bob Nava MD LAB MICROBIOLOGY - GENERAL O RDERABLES Final Result Performing Organization Address [facility] Co de Phone Number [facility] [address] [place] [address] * Tissue Culture and Gram Stain (01/20/2025 10:30 AM EDT) Culture No growth at day 4 2024 7:15 AM EDT [facility] Gram Stain Result No polymorphonuclear leukocytes seen 01/25/2025 7:15 AM EDT [facility] Gram Stain Result No organisms seen 01/25/2025 7:15 AM EDT [facility] Tissue Structure of left knee region / Unknown 01/20/2025 10:30 AM EDT 01/20/2025 11:23 AM EDT Comment:Pre-op diagnosis: Closed fracture of left tibial plateau with routine healing, subsequent encounter [S82.142D] Bob Nava MD LAB MICROBIOLOGY - GENERAL O RDERABLES Final Result Performing Organization Address [facility]/ZIP Co de Phone Number [facility] [address] [place] [address] * Anaerobic Culture (01/20/2025 10:30 AM EDT) Culture No growth at day 4 01/28/2025 7:09 AM EDT [facility] Tissue Structure of left knee region / Unknown 01/20/2025 10:30 AM EDT 01/20/2025 11:23 AM EDT Comment:Pre-op diagnosis: Closed fracture of left tibial plateau with routine healing, subsequent encounter [S82.142D] us Bob Nava MD LAB MICROBIOLOGY - GENERAL O RDERABLES Final Result Performing Organization Address [facility]/ZIP Co de Phone Number [facility] [address] [place] [address] * Fungal Culture, Tissue and SYEDA (01/20/2025 10:27 AM EDT) Culture Reading Mycological 4 Weeks No Fungal Growth at 4 Weeks 02/18/2025 6:03 AM EDT [facility] SYEDA No fungal elements seen 02/18/2025 6:03 AM EDT [facility] Tissue Structure of left knee region / Unknown 01/20/2025 10:27 AM EDT 01/20/2025 11:24 AM EDT Comment:Pre-op diagnosis: Closed fracture of left tibial plateau with routine healing, subsequent encounter [S82.142D] us Bob Nava MD LAB MICROBIOLOGY - GENERAL O RDERABLES Final Result Performing Organization Address [facility] Co de Phone Number [facility] [address] [place] [address] * AFB Culture, Non Respiratory Source and Acid Fast Stain (01/20/2025 10:27 AM EDT) AFB Culture No Mycobacterial Growth at 6 Weeks 03/04/2025 4:15 PM EDT [facility] Acid Fast Stain No acid fast bacilli seen 03/04/2025 4:15 PM EDT [facility] Tissue Structure of left knee region / Unknown 01/20/2025 10:27 AM EDT 01/20/2025 11:24 AM EDT Comment:Pre-op diagnosis: Closed fracture of left tibial plateau with routine healing, subsequent encounter [S82.142D] us Bob Nava MD LAB MICROBIOLOGY - GENERAL O RDERABLES Final Result Performing Organization Address [facility]/ZIP Co de Phone Number [facility] [address] [place] [address] * Tissue Culture and Gram Stain (01/20/2025 10:27 AM EDT) Culture No growth at day 4 2024 7:15 AM EDT [facility] Gram Stain Result No organisms seen 01/25/2025 7:15 AM EDT [facility] Gram Stain Result No polymorphonuclear leukocytes seen 01/25/2025 7:15 AM EDT [facility] Tissue Structure of left knee region / Unknown 01/20/2025 10:27 AM EDT 01/20/2025 11:24 AM EDT Comment:Pre-op diagnosis: Closed fracture of left tibial plateau with routine healing, subsequent encounter [S82.142D] us Bob Nava MD LAB MICROBIOLOGY - GENERAL O RDERABLES Final Result Performing Organization Address [facility] Co de Phone Number [facility] [address] [place] [address] * Anaerobic Culture (01/20/2025 10:27 AM EDT) Culture No growth at day 4 01/28/2025 7:09 AM EDT [facility] Tissue Structure of left knee region / Unknown 01/20/2025 10:27 AM EDT 01/20/2025 11:24 AM EDT Comment:Pre-op diagnosis: Closed fracture of left tibial plateau with routine healing, subsequent encounter [S82.142D] us Bob Nava MD LAB MICROBIOLOGY - GENERAL O RDERABLES Final Result Performing Organization Address [facility]/ZIP Co de Phone Number [facility] [address] [place] [address] * (ABNORMAL) Creatine Kinase (CK), Total (01/20/2025 3:40 AM EDT) Creatine Kinase, Plasma 18(L) 49 - 320 U/L 01/21/2025 12:17 PM EDT [facility] Blood Venous blood specimen / Unknown Venipuncture / Unknown 01/20/2025 3:40 AM EDT 01/20/2025 3:57 AM EDT us Sachin Garza MD LAB BLOOD ORDERABLES Final R esult [facility] [address] [place] [address] * Vancomycin, random (01/20/2025 3:40 AM EDT) Vancomycin, Random, Plasma 20.1 ug/mL 01/20/2025 4:51 AM EDT [facility] Blood Venous blood specimen / Unknown Venipuncture / Unknown 01/20/2025 3:40 AM EDT 01/20/2025 3:57 AM EDT Sachin Garza MD LAB BLOOD ORDERABLES Final R esult Performing Organization Address [facility]/[place] [address] * Protime-INR (01/20/2025 3:40 AM EDT) Prothrombin Time 13.5 12.0 - 14.3 sec LAB COAGULATION METHOD 01/20/2025 4:17 AM EDT [facility] INR 1.0 0.9 - 1.1 LAB COAGULATION METHOD 01/20/2025 4:17 AM EDT [facility] Blood Venous blood specimen / Unknown Venipuncture / Unknown 01/20/2025 3:40 AM EDT 01/20/2025 3:56 AM EDT Narrative [facility] - 01/20/2025 4:17 AM EDT OPTIMAL INR RANGES FOR PATIENT ON ORAL ANTICOAGULANT THERAPY Prevention of venous thromboembolism INR 2.0 to 3.0 In patients with heart disease: Atrial fibrillation INR 2.0 to 3.0 Valvular heart disease INR 2.0 to 3.0 Tissue heart valves INR 2.0 to 3.0 Mechanical prosthetic valves INR 2.5 to 3.5 Prevention of recurrent VA INR 2.5 to 3.5 Sachin Garza MD LAB BLOOD ORDERABLES Final R esult Performing Organization Address [facility]/ZIP Co de Phone Number [facility] [address] [place] [address] * (ABNORMAL) Basic metabolic panel (01/20/2025 3:40 AM EDT) Glucose, Plasma 87 74 - 99 mg/dL 01/20/2025 4:51 AM EDT [facility] BUN, Plasma 30(H) 7 - 21 mg/dL 01/20/2025 4:51 AM EDT [facility] Creatinine, Plasma 1.59(H) 0.70 - 1.20 mg/dL 01/20/2025 4:51 AM EDT [facility] BUN/Creatinine Ratio 19 01/20/2025 4:51 AM EDT [facility] Sodium, Plasma 142 136 - 145 mmol/L 01/20/2025 4:51 AM EDT [facility] Potassium, Plasma 4.7 3.6 - 4.9 mmol/L 01/20/2025 4:51 AM EDT [facility] Chloride, Plasma 104 97 - 107 mmol/L 01/20/2025 4:51 AM EDT [facility] CO2, Plasma 26 22 - 29 mmol/L 01/20/2025 4:51 AM EDT [facility] Anion Gap 12 6 - 16 mmol/L 01/20/2025 4:51 AM EDT [facility] Total Calcium, Plasma 8.9 8.9 - 10.2 mg/dL 01/20/2025 4:51 AM EDT [facility] eGFRcr 57.7 mL/min/1.7 3m*2 01/20/2025 4:51 AM EDT [facility] Comment:Reported eGFRcr in m L/min/1.73m2 is based the CKD-EPI 2020 equation that does not use a race coefficient. Blood Venous blood specimen / Unknown Venipuncture / Unknown 01/20/2025 3:40 AM EDT 01/20/2025 3:57 AM EDT us Sachin Garza MD LAB BLOOD ORDERABLES Final R esult [facility] [address] [place] [address] * (ABNORMAL) CBC W/O Differential (01/20/2025 3:40 AM EDT) WBC Count 8.11 3.70 - 10.30 10*3/uL LAB HEMATOLOGY METHOD 01/20/2025 4:04 AM EDT [facility] RBC Count 3.64(L) 4.60 - 6.10 10*6/uL LAB HEMATOLOGY METHOD 01/20/2025 4:04 AM EDT [facility] HGB 10.7(L) 13.7 - 17.5 g/dL LAB HEMATOLOGY METHOD 01/20/2025 4:04 AM EDT [facility] HCT 34.5(L) 40.0 - 51.0 % LAB HEMATOLOGY METHOD 01/20/2025 4:04 AM EDT [facility] Platelet Count 399(H) 155 - 369 10*3/uL LAB HEMATOLOGY METHOD 01/20/2025 4:04 AM EDT [facility] MCV 95 79 - 98 fL LAB HEMATOLOGY METHOD 01/20/2025 4:04 AM EDT [facility] MCH 29.4 26.0 - 32.0 pg LAB HEMATOLOGY METHOD 01/20/2025 4:04 AM EDT [facility] MCHC 31.0 30.7 - 35.5 g/dL LAB HEMATOLOGY METHOD 01/20/2025 4:04 AM EDT [facility] RDW 13.1 11.5 - 14.5 % LAB HEMATOLOGY METHOD 01/20/2025 4:04 AM EDT [facility] MPV 9.5 8.8 - 12.5 fL LAB HEMATOLOGY METHOD 01/20/2025 4:04 AM EDT [facility] nRBC 0.0 <=0.0 per 100 WBCs LAB HEMATOLOGY METHOD 01/20/2025 4:04 AM EDT [facility] Blood Venous blood specimen / Unknown Venipuncture / Unknown 01/20/2025 3:40 AM EDT 01/20/2025 3:56 AM EDT us Sachin Garza MD LAB BLOOD ORDERABLES Final R esult [facility] [address] [place] [address] * Vancomycin, random (01/19/2025 11:48 AM EDT) Vancomycin, Random, Plasma 22.9 ug/mL 01/19/2025 1:05 PM EDT [facility] Blood Venous blood specimen / Unknown Venipuncture / Unknown 01/19/2025 11:48 AM EDT 01/19/2025 11:50 AM EDT Sachin Garza MD LAB BLOOD ORDERABLES Final R esult [facility] [address] [place] [address] * (ABNORMAL) Basic Metabolic Panel, Plasma (01/18/2025 11:54 PM EDT) Glucose, Plasma 134(H) 74 - 99 mg/dL 01/19/2025 12:45 AM EDT [facility] BUN, Plasma 24(H) 7 - 21 mg/dL 01/19/2025 12:45 AM EDT [facility] Creatinine, Plasma 1.34(H) 0.70 - 1.20 mg/dL 01/19/2025 12:45 AM EDT [facility] BUN/Creatinine Ratio 18 01/19/2025 12:45 AM EDT [facility] Sodium, Plasma 137 136 - 145 mmol/L 01/19/2025 12:45 AM EDT [facility] Potassium, Plasma 4.7 3.6 - 4.9 mmol/L 01/19/2025 12:45 AM EDT [facility] Chloride, Plasma 100 97 - 107 mmol/L 01/19/2025 12:45 AM EDT [facility] CO2, Plasma 24 22 - 29 mmol/L 01/19/2025 12:45 AM EDT [facility] Anion Gap 13 6 - 16 mmol/L 01/19/2025 12:45 AM EDT [facility] Total Calcium, Plasma 9.3 8.9 - 10.2 mg/dL 01/19/2025 12:45 AM EDT [facility] eGFRcr 70.8 mL/min/1.7 3m*2 01/19/2025 12:45 AM EDT [facility] Comment:Reported eGFRcr in m L/min/1.73m2 is based the CKD-EPI 2020 equation that does not use a race coefficient. Blood Venous blood specimen / Unknown Venipuncture / Unknown 01/18/2025 11:54 PM EDT 01/19/2025 12:16 AM EDT us Sachin Garza MD LAB BLOOD ORDERABLES Final R esult [facility] [address] [place] [address] * (ABNORMAL) CBC W/O Differential (01/18/2025 11:54 PM EDT) WBC Count 11.85(H) 3.70 - 10.30 10*3/uL LAB HEMATOLOGY METHOD 01/19/2025 12:20 AM EDT [facility] RBC Count 3.76(L) 4.60 - 6.10 10*6/uL LAB HEMATOLOGY METHOD 01/19/2025 12:20 AM EDT [facility] HGB 11.3(L) 13.7 - 17.5 g/dL LAB HEMATOLOGY METHOD 01/19/2025 12:20 AM EDT [facility] HCT 34.2(L) 40.0 - 51.0 % LAB HEMATOLOGY METHOD 01/19/2025 12:20 AM EDT [facility] Platelet Count 394(H) 155 - 369 10*3/uL LAB HEMATOLOGY METHOD 01/19/2025 12:20 AM EDT [facility] MCV 91 79 - 98 fL LAB HEMATOLOGY METHOD 01/19/2025 12:20 AM EDT [facility] MCH 30.1 26.0 - 32.0 pg LAB HEMATOLOGY METHOD 01/19/2025 12:20 AM EDT [facility] MCHC 33.0 30.7 - 35.5 g/dL LAB HEMATOLOGY METHOD 01/19/2025 12:20 AM EDT [facility] RDW 12.9 11.5 - 14.5 % LAB HEMATOLOGY METHOD 01/19/2025 12:20 AM EDT [facility] MPV 9.5 8.8 - 12.5 fL LAB HEMATOLOGY METHOD 01/19/2025 12:20 AM EDT [facility] nRBC 0.0 <=0.0 per 100 WBCs LAB HEMATOLOGY METHOD 01/19/2025 12:20 AM EDT [facility] Blood Venous blood specimen / Unknown Venipuncture / Unknown 01/18/2025 11:54 PM EDT 01/19/2025 12:13 AM EDT us Sachin Garza MD LAB BLOOD ORDERABLES Final R esult Performing Organization Address City/[facility]/ZIP Co de Phone Number [facility] [address] [place] [address] * AFB Culture, Non Respiratory Source and Acid Fast Stain (01/18/2025 3:28 PM EDT) AFB Culture No Mycobacterial Growth at 6 Weeks 03/02/2025 8:42 AM EDT [facility] Acid Fast Stain No acid fast bacilli seen 03/02/2025 8:42 AM EDT [facility] Joint Fluid Topography unknown / Unknown Non-blood Collection / Unknown 01/18/2025 3:28 PM EDT 01/18/2025 3:28 PM EDT us Sachin Garza MD LAB MICROBIOLOGY - GENERAL O RDERABLES Final Result Performing Organization Address City/[facility]/ZIP Co de Phone Number [facility] [address] [place] [address] * Fungal Culture, Sterile Body Fluid (NOT CSF) and SYEDA (01/18/2025 3:28 PM EDT) Culture No Fungal Growth at 3 Weeks 02/10/2025 8:37 AM EDT [facility] SYEDA No fungal elements seen 02/10/2025 8:37 AM EDT [facility] Joint Fluid Topography unknown / Unknown Non-blood Collection / Unknown 01/18/2025 3:28 PM EDT 01/18/2025 3:28 PM EDT us Sachin Garza MD LAB MICROBIOLOGY - GENERAL O RDERABLES Final Result Performing Organization Address City/[facility]/ZIP Co de Phone Number [facility] [address] [place] [address] * Anaerobic Culture (01/18/2025 3:28 PM EDT) Culture No anaerobes isolated 01/23/2025 7:50 AM EDT [facility] Joint Fluid Topography unknown / Unknown Non-blood Collection / Unknown 01/18/2025 3:28 PM EDT 01/18/2025 3:28 PM EDT Sachin Garza MD LAB MICROBIOLOGY - GENERAL O RDERABLES Final Result Performing Organization Address [facility] de Phone Number [facility] [address] [place] [address] * (ABNORMAL) Body Fluid Culture and Gram Stain (01/18/2025 3:28 PM EDT) Culture Heavy Growth 01/20/2025 8:34 AM EDT [facility] Culture Methicillin-Resista nt Staphylococcus aureus(AA) 01/20/2025 8:34 AM EDT [facility] Comment: For susceptibility results refer to: - [id number] The organism value for this result has been updated. These results have been appended to the previously preliminary verified report. Edited result: Previously reported as Staphylococcus aureus on 01/19/2025 at 0933 EDT. Staphylococcus aureus has been updated to reportable. Gram Stain Result Numerous Polymorphonuclear leukocytes 01/20/2025 8:34 AM EDT [facility] Gram Stain Result No organisms seen 01/20/2025 8:34 AM EDT [facility] Joint Fluid Topography unknown / Unknown Non-blood Collection / Unknown 01/18/2025 3:28 PM EDT 01/18/2025 3:28 PM EDT Sachin Garza MD LAB MICROBIOLOGY - GENERAL O RDERABLES Final Result Performing Organization Address City/[facility]/ZIP Co de Phone Number [facility] [address] [place] [address] * Body fluid, cytospin, pathologist interpretation (01/18/2025 3:01 PM EDT) Specimen Type Joint Fluid LAB HEMATOLOGY METHOD 01/20/2025 4:29 PM EDT [facility] Specimen Source, Body Fluid Knee, Left LAB HEMATOLOGY METHOD 01/20/2025 4:29 PM EDT [facility] Clinical Diagnosis, Body Fluid Left lower extremity cellulitis LAB HEMATOLOGY METHOD 01/20/2025 4:29 PM EDT [facility] Interpretation , Body Fluid Bloody specimen Acute and chronic inflammatory cells Correlation with microbiology studies recommended A resident was involved in the service. I attest I examined the relevant preparations for the specimens and confirmed the diagnosis or interpretation. 01/20/2025 4:29 PM EDT [facility] Pathologist Signature, Body Fluid 01/20/2025 4:29 PM EDT [facility] Comment:Reviewed by: Stephanie conti MD LAB CP ASR DISCLAIMER Yes 01/20/2025 4:29 PM EDT [facility] Joint Fluid Structure of left knee region / Unknown 01/18/2025 3:01 PM EDT 01/18/2025 3:28 PM EDT us Sachin Garza MD LAB BODY FLUIDS AND STOOLS O RDERABLES Final Result Performing Organization Address [facility]/ZIP Co de Phone Number [facility] [address] [place] [address] * Joint Fluid Crystals (01/18/2025 3:01 PM EDT) Crystals, Joint Fluid No Crystals Seen No Crystals Present 01/18/2025 5:28 PM EDT [facility] Joint Fluid Structure of left knee region / Unknown 01/18/2025 3:01 PM EDT 01/18/2025 3:28 PM EDT us Sachin Garza MD LAB BODY FLUIDS AND STOOLS O RDERABLES Final Result [facility] [address] [place] [address] * (ABNORMAL) Body Fluid Cell Count w/ Diff (01/18/2025 3:01 PM EDT) Color, Body fluid Red LAB HEMATOLOGY METHOD 01/18/2025 11:05 PM EDT [facility] Appearance, Body fluid Cloudy(A) LAB HEMATOLOGY METHOD 01/18/2025 11:05 PM EDT [facility] Volume, Body fluid 3.5 cc LAB HEMATOLOGY METHOD 01/18/2025 11:05 PM EDT [facility] Fluid Container Specimen received in EDTA tube LAB HEMATOLOGY METHOD 01/18/2025 11:05 PM EDT [facility] Red Blood Cell Count, Body fluid 299,000 uL LAB HEMATOLOGY METHOD 01/18/2025 11:05 PM EDT [facility] Total Nucleated Cell Count, Body fluid 873 uL LAB HEMATOLOGY METHOD 01/18/2025 11:05 PM EDT [facility] Neutrophils %, Body fluid 17 % LAB HEMATOLOGY METHOD 01/18/2025 11:05 PM EDT [facility] Lymphocytes %, Body fluid 55 % LAB HEMATOLOGY METHOD 01/18/2025 11:05 PM EDT [facility] Monocytes/Macro phages %, Body fluid 27 % LAB HEMATOLOGY METHOD 01/18/2025 11:05 PM EDT [facility] Eosinophils %, Body fluid 1 % LAB HEMATOLOGY METHOD 01/18/2025 11:05 PM EDT [facility] Lining/Mesothel ial Cells %, Body fluid 0 % LAB HEMATOLOGY METHOD 01/18/2025 11:05 PM EDT [facility] Neutrophils Absolute (PMN), Body fluid 148 uL LAB HEMATOLOGY METHOD 01/18/2025 11:05 PM EDT [facility] Lymphocytes Absolute, Body fluid 480 uL LAB HEMATOLOGY METHOD 01/18/2025 11:05 PM EDT [facility] Monocytes/Macro phages Absolute, Body fluid 236 uL LAB HEMATOLOGY METHOD 01/18/2025 11:05 PM EDT [facility] Eosinophils Absolute, Body fluid 9 uL LAB HEMATOLOGY METHOD 01/18/2025 11:05 PM EDT [facility] Basophils Absolute, Body fluid 0 uL LAB HEMATOLOGY METHOD 01/18/2025 11:05 PM EDT [facility] Lining/Mesothel ial Cells Absolute, Body fluid 0 uL LAB HEMATOLOGY METHOD 01/18/2025 11:05 PM EDT [facility] Comment, Body fluid None LAB HEMATOLOGY METHOD 01/18/2025 11:05 PM EDT [facility] Comment:This is an appended report. These results have been appended to a previously preliminary verified report. Basophils %, Body fluid 0 % LAB HEMATOLOGY METHOD 01/18/2025 11:05 PM EDT [facility] Joint Fluid Structure of left knee region / Unknown 01/18/2025 3:01 PM EDT 01/18/2025 3:28 PM EDT us Sachin Garza MD LAB BODY FLUIDS AND STOOLS ORDERABLES NO SPECIMEN TYPE/SOURCE Final Result Performing Organization Address [facility]/ZIP Co de Phone Number [facility] [address] [place] [address] * Body Fluid Culture and Gram Stain (01/18/2025 12:17 PM EDT) Culture No growth at day 4 2024 11:06 AM EDT [facility] Gram Stain Result No polymorphonuclear leukocytes seen 01/21/2025 11:06 AM EDT [facility] Gram Stain Result No organisms seen 01/21/2025 11:06 AM EDT [facility] Joint Fluid Synovial fluid specimen / Unknown Non-blood Collection / Unknown 01/18/2025 12:17 PM EDT 01/18/2025 3:24 PM EDT Comment:Pre-op diagnosis: Cellulitis of left lower extremity [L03.116] us Dwaine Das DO LAB MICROBIOLOGY - GENERAL ORDERABLES Final Result Performing Organization Address City/[facility]/ZIP Co de Phone Number [facility] [address] [place] [address] * Joint Infection Panel by PCR (01/18/2025 12:17 PM EDT) Anaerococcus prevotii/vaginalis PCR Result Not Detected Not Detected 01/18/2025 5:28 PM EDT [facility] Clostridium perfringens PCR Result Not Detected Not Detected 01/18/2025 5:28 PM EDT [facility] Cutibacterium avidum/granulosum PCR Result Not Detected Not Detected 01/18/2025 5:28 PM EDT [facility] Enterococcus faecalis PCR Result Not Detected Not Detected 01/18/2025 5:28 PM EDT [facility] Enterococcus faecium PCR Result Not Detected Not Detected 01/18/2025 5:28 PM EDT [facility] Finegoldia magna PCR Result Not Detected Not Detected 01/18/2025 5:28 PM EDT [facility] Parvimonas micra PCR Result Not Detected Not Detected 01/18/2025 5:28 PM EDT [facility] Peptoniphilus PCR Result Not Detected Not Detected 01/18/2025 5:28 PM EDT [facility] Peptostreptococcus anaerobius PCR Result Not Detected Not Detected 01/18/2025 5:28 PM EDT [facility] Staphylococcus aureus PCR Result Not Detected Not Detected 01/18/2025 5:28 PM EDT [facility] Staphylococcus lugdunensis PCR Result Not Detected Not Detected 01/18/2025 5:28 PM EDT [facility] Streptococcus spp PCR Result Not Detected Not Detected 01/18/2025 5:28 PM EDT [facility] Streptococcus agalactiae PCR Result Not Detected Not Detected 01/18/2025 5:28 PM EDT [facility] Streptococcus pneumoniae PCR Result Not Detected Not Detected 01/18/2025 5:28 PM EDT [facility] Streptococcus pyogenes PCR Result Not Detected Not Detected 01/18/2025 5:28 PM EDT [facility] Bacteroides fragilis PCR Result Not Detected Not Detected 01/18/2025 5:28 PM EDT [facility] Citrobacter PCR Result Not Detected Not Detected 01/18/2025 5:28 PM EDT [facility] Enterobacter cloacae complex PCR Result Not Detected Not Detected 01/18/2025 5:28 PM EDT [facility] Escherichia coli PCR Result Not Detected Not Detected 01/18/2025 5:28 PM EDT [facility] Haemophilus influenzae PCR Result Not Detected Not Detected 01/18/2025 5:28 PM EDT [facility] Kingella kingae PCR Result Not Detected Not Detected 01/18/2025 5:28 PM EDT [facility] Klebsiella aerogenes PCR Result Not Detected Not Detected 01/18/2025 5:28 PM EDT [facility] Klebsiella pneumoniae group PCR Result Not Detected Not Detected 01/18/2025 5:28 PM EDT [facility] Morganella morganii PCR Result Not Detected Not Detected 01/18/2025 5:28 PM EDT [facility] Neisseria gonorrhoeae PCR Result Not Detected Not Detected 01/18/2025 5:28 PM EDT [facility] Proteus spp PCR Result Not Detected Not Detected 01/18/2025 5:28 PM EDT [facility] Pseudomonas aeruginosa PCR Result Not Detected Not Detected 01/18/2025 5:28 PM EDT [facility] Salmonella spp PCR Result Not Detected Not Detected 01/18/2025 5:28 PM EDT [facility] Serratia marcescens PCR Result Not Detected Not Detected 01/18/2025 5:28 PM EDT [facility] Nelda PCR Result Not Detected Not Detected 01/18/2025 5:28 PM EDT [facility] Nelda albicans PCR Result Not Detected Not Detected 01/18/2025 5:28 PM EDT [facility] CTXM PCR Result Not Detected Not Detected 01/18/2025 5:28 PM EDT [facility] IMP PCR Result Not Detected Not Detected 01/18/2025 5:28 PM EDT [facility] KPC PCR Result Not Detected Not Detected 01/18/2025 5:28 PM EDT [facility] mecA/C and MREJ (MRSA) PCR Result Not Detected Not Detected 01/18/2025 5:28 PM EDT [facility] NDM PCR Result Not Detected Not Detected 01/18/2025 5:28 PM EDT [facility] OXA-48-like PCR Result Not Detected Not Detected 01/18/2025 5:28 PM EDT [facility] Jarret/B PCR Result Not Detected Not Detected 01/18/2025 5:28 PM EDT [facility] VIM PCR Result Not Detected Not Detected 01/18/2025 5:28 PM EDT [facility] Joint Fluid Synovial fluid specimen / Unknown Non-blood Collection / Unknown 01/18/2025 12:17 PM EDT 01/18/2025 3:24 PM EDT Narrative [facility] - 01/18/2025 5:28 PM [...] MICROBIOLOGY - GENERAL O RDERABLES Final Result [facility] [address] [place] [address] * Fungal Culture, Tissue and SYEDA (01/18/2025 10:00 AM EDT) Culture Reading Mycological 4 Weeks No Fungal Growth at 4 Weeks 02/16/2025 8:50 AM EDT [facility] SYEDA No fungal elements seen 02/16/2025 8:50 AM EDT [facility] Tissue Topography unknown / Unknown 01/18/2025 10:00 AM EDT 01/18/2025 3:26 PM EDT Comment:Pre-op diagnosis: Cellulitis of left lower extremity [L03.116] [facility] [place] MICROBIOLOGY - GENERAL ORDERABLES Final Result Performing Organization Address [facility] Co de Phone Number [facility] [address] [place] [address] * AFB Culture, Non Respiratory Source and Acid Fast Stain (01/18/2025 10:00 AM EDT) AFB Culture No Mycobacterial Growth at 6 Weeks 03/02/2025 8:38 AM EDT [facility] Acid Fast Stain No acid fast bacilli seen 03/02/2025 8:38 AM EDT [facility] Tissue Topography unknown / Unknown 01/18/2025 10:00 AM EDT 01/18/2025 3:26 PM EDT Comment:Pre-op diagnosis: Cellulitis of left lower extremity [L03.116] [facility] [place] LAB MICROBIOLOGY - GENERAL ORDERABLES Final Result Performing Organization Address [facility] de Phone Number [facility] [address] [place] [address] * (ABNORMAL) Tissue Culture and Gram Stain (01/18/2025 10:00 AM EDT) Culture Heavy Growth 01/20/2025 8:34 AM EDT [facility] Culture Methicillin-Resista nt Staphylococcus aureus(AA) JOVANI 01/20/2025 8:34 AM EDT [facility] Comment: The organism value for this result has been updated. These results have been appended to the previously preliminary verified report. Edited result: Previously reported as Staphylococcus aureus on 01/19/2025 at 0914 EDT. Staphylococcus aureus has been updated to reportable. Gram Stain Result Numerous Polymorphonuclear leukocytes(A) 01/20/2025 8:34 AM EDT [facility] Gram Stain Result Rare Gram positive cocci in clusters(A) 01/20/2025 8:34 AM EDT [facility] Tissue Topography unknown / [...] Staphylococcus aureus Vancomycin JOVANI 1 ug/ml: Susceptible [employer]aine [employer] LAB MICROBIOLOGY - GENERAL ORDERABLES Final Result Performing Organization Address City/[facility] Co de Phone Number [facility] [address] [place] [address] * Anaerobic Culture (01/18/2025 10:00 AM EDT) Culture No anaerobes isolated 01/23/2025 7:50 AM EDT [facility] Tissue Topography unknown / Unknown 01/18/2025 10:00 AM EDT 01/18/2025 3:26 PM EDT Comment:Pre-op diagnosis: Cellulitis of left lower extremity [L03.116] [employer] LAB MICROBIOLOGY - GENERAL ORDERABLES Final Result Performing Organization Address City/[facility] Co de Phone Number [facility] [address] [place] [address] * Body fluid, cytospin, pathologist interpretation (01/18/2025 9:57 AM EDT) Specimen Type Cyst Fluid LAB HEMATOLOGY METHOD 01/20/2025 4:28 PM EDT [facility] Specimen Source, Body Fluid Other (specify site) LAB HEMATOLOGY METHOD 01/20/2025 4:28 PM EDT [facility] Clinical Diagnosis, Body Fluid Left lower extremity cyst fluid LAB HEMATOLOGY METHOD 01/20/2025 4:28 PM EDT [facility] Interpretation , Body Fluid No evidence of malignancy Bloody specimen Acute inflammatory cells Correlation with microbiology studies recommended A resident was involved in the service. I attest I examined the relevant preparations for the specimens and confirmed the diagnosis or interpretation. 01/20/2025 4:28 PM EDT [facility] Pathologist Signature, Body Fluid 01/20/2025 4:28 PM EDT [facility] Comment:Reviewed by: Stephanie conti MD LAB CP ASR DISCLAIMER Yes 01/20/2025 4:28 PM EDT [facility] Cyst Fluid Topography unknown / Unknown 01/18/2025 9:57 AM EDT 01/18/2025 3:19 PM EDT Dwaine Das DO LAB BODY FLUIDS AND STOOLS ORDERABLES Final Result [facility] [address] [place] [address] * (ABNORMAL) Body Fluid Cell Count w/ Diff (01/18/2025 9:57 AM EDT) Color, Body fluid Red LAB HEMATOLOGY METHOD 01/18/2025 7:13 PM EDT [facility] Appearance, Body fluid Cloudy(A) LAB HEMATOLOGY METHOD 01/18/2025 7:13 PM EDT [facility] Volume, Body fluid 10.0 cc LAB HEMATOLOGY METHOD 01/18/2025 7:13 PM EDT [facility] Fluid Container Specimen received in miscellaneous container LAB HEMATOLOGY METHOD 01/18/2025 7:13 PM EDT [facility] Red Blood Cell Count, Body fluid 240,000 uL LAB HEMATOLOGY METHOD 01/18/2025 7:13 PM EDT [facility] Comment:Clot present, may af fect results. Test performed by manual method. Total Nucleated Cell Count, Body fluid 83,500 uL LAB HEMATOLOGY METHOD 01/18/2025 7:13 PM EDT [facility] Comment:Clot present, may af fect results. Test performed by manual method. Neutrophils %, Body fluid 98 % LAB HEMATOLOGY METHOD 01/18/2025 7:13 PM EDT [facility] Lymphocytes %, Body fluid 2 % LAB HEMATOLOGY METHOD 01/18/2025 7:13 PM EDT [facility] Monocytes/Macr ophages %, Body fluid 0 % LAB HEMATOLOGY METHOD 01/18/2025 7:13 PM EDT [facility] Eosinophils %, Body fluid 0 % LAB HEMATOLOGY METHOD 01/18/2025 7:13 PM EDT [facility] Lining/Mesothe lial Cells %, Body fluid 0 % LAB HEMATOLOGY METHOD 01/18/2025 7:13 PM EDT [facility] Neutrophils Absolute (PMN), Body fluid 81,830 uL LAB HEMATOLOGY METHOD 01/18/2025 7:13 PM EDT [facility] Lymphocytes Absolute, Body fluid 1,670 uL LAB HEMATOLOGY METHOD 01/18/2025 7:13 PM EDT [facility] Monocytes/Macr ophages Absolute, Body fluid 0 uL LAB HEMATOLOGY METHOD 01/18/2025 7:13 PM EDT [facility] Eosinophils Absolute, Body fluid 0 uL LAB HEMATOLOGY METHOD 01/18/2025 7:13 PM EDT [facility] Basophils Absolute, Body fluid 0 uL LAB HEMATOLOGY METHOD 01/18/2025 7:13 PM EDT [facility] Lining/Mesothe lial Cells Absolute, Body fluid 0 uL LAB HEMATOLOGY METHOD 01/18/2025 7:13 PM EDT [facility] Comment, Body fluid Bacteria seen. LAB HEMATOLOGY METHOD 01/18/2025 7:13 PM EDT [facility] Basophils %, Body fluid 0 % LAB HEMATOLOGY METHOD 01/18/2025 7:13 PM EDT [facility] Cyst Fluid Topography unknown / Unknown 01/18/2025 9:57 AM EDT 01/18/2025 3:19 PM EDT Comment:Pre-op diagnosis: Cellulitis of left lower extremity [L03.116] Result [facility] Dwaine Simoneadeleshivani LAB BODY FLUIDS AND STOOLS ORDERABLES NO SPECIMEN TYPE/SOURCE Final Result [facility] [address] [place] [address] * Fungal Culture, Sterile Body Fluid (NOT CSF) and SYEDA (01/18/2025 9:57 AM EDT) Culture No Fungal Growth at 3 Weeks 02/10/2025 8:37 AM EDT [facility] SYEDA No fungal elements seen 02/10/2025 8:37 AM EDT [facility] Cyst Fluid Topography unknown / Unknown 01/18/2025 9:57 AM EDT 01/18/2025 3:26 PM EDT Comment:Pre-op diagnosis: Cellulitis of left lower extremity [L03.116] Dwaine Simoneadeleshivani LAB MICROBIOLOGY - GENERAL ORDERABLES Final Result Performing Organization Address [facility]/ZIP Co de Phone Number [facility] [address] [place] [address] * AFB Culture, Non Respiratory Source and Acid Fast Stain (01/18/2025 9:57 AM EDT) AFB Culture No Mycobacterial Growth at 6 Weeks 03/02/2025 8:43 AM EDT [facility] Acid Fast Stain No acid fast bacilli seen 03/02/2025 8:43 AM EDT [facility] Cyst Fluid Topography unknown / Unknown 01/18/2025 9:57 AM EDT 01/18/2025 3:26 PM EDT Comment:Pre-op diagnosis: Cellulitis of left lower extremity [L03.116] Result [facility] Dwaine Nicholsadeleshivani LAB MICROBIOLOGY - GENERAL ORDERABLES Final Result Performing Organization Address City/[facility]/ZIP Co de Phone Number [facility] [address] [place] [address] * (ABNORMAL) Body Fluid Culture and Gram Stain (01/18/2025 9:57 AM EDT) Culture Heavy Growth 01/20/2025 8:34 AM EDT [facility] Culture Methicillin-Resista nt Staphylococcus aureus(AA) 01/20/2025 8:34 AM EDT [facility] Comment: For susceptibility results refer to: - [id number] The organism value for this result has been updated. These results have been appended to the previously preliminary verified report. Edited result: Previously reported as Staphylococcus aureus on 01/19/2025 at 0916 EDT. Staphylococcus aureus has been updated to reportable. Gram Stain Result Numerous Polymorphonuclear leukocytes(A) 01/20/2025 8:34 AM EDT [facility] Gram Stain Result Moderate Gram positive cocci in clusters(A) 01/20/2025 8:34 AM EDT [facility] [facility] Cyst Fluid Topography unknown / Unknown 01/18/2025 9:57 AM EDT 01/18/2025 3:26 PM EDT Comment:Pre-op diagnosis: Cellulitis of left lower extremity [L03.116] [employer] LAB MICROBIOLOGY - GENERAL ORDERABLES Final Result Performing Organization Address City/[facility]/ZIP Co de Phone Number [facility] [address] [place] [address] * Anaerobic Culture (01/18/2025 9:57 AM EDT) [facility] Culture No anaerobes isolated 01/23/2025 7:50 AM EDT [facility] Cyst Fluid Topography unknown / Unknown 01/18/2025 9:57 AM EDT 01/18/2025 3:26 PM EDT Comment:Pre-op diagnosis: Cellulitis of left lower extremity [L03.116] [email or web address] LAB MICROBIOLOGY - GENERAL ORDERABLES Final Result [facility] [address] [place] [address] * Methicillin Resistant Staphylococcus aureus (MRSA) by PCR (01/18/2025 7:43 AM EDT) Methicillin Resistant Staphylococcus aureus (MRSA) by PCR Not Detected Not Detected 01/18/2025 9:36 AM EDT [facility] Swab Both anterior nares / Unknown Non-blood Collection / Unknown 01/18/2025 7:43 AM EDT 01/18/2025 8:19 AM EDT Narrative [facility] - 01/18/2025 9:36 AM [...] MICROBIOLOGY - GENERAL O RDERABLES Final Result [facility] [address] [place] [address] * (ABNORMAL) Basic metabolic panel (01/18/2025 12:18 AM EDT) Glucose, Plasma 105(H) 74 - 99 mg/dL 01/18/2025 1:30 AM EDT [facility] BUN, Plasma 14 7 - 21 mg/dL 01/18/2025 1:30 AM EDT [facility] Creatinine, Plasma 0.80 0.70 - 1.20 mg/dL 01/18/2025 1:30 AM EDT [facility] BUN/Creatinine Ratio 18 01/18/2025 1:30 AM EDT [facility] Sodium, Plasma 137 136 - 145 mmol/L 01/18/2025 1:30 AM EDT [facility] Potassium, Plasma 4.3 3.6 - 4.9 mmol/L 01/18/2025 1:30 AM EDT [facility] Chloride, Plasma 100 97 - 107 mmol/L 01/18/2025 1:30 AM EDT [facility] CO2, Plasma 26 22 - 29 mmol/L 01/18/2025 1:30 AM EDT [facility] Anion Gap 11 6 - 16 mmol/L 01/18/2025 1:30 AM EDT [facility] Total Calcium, Plasma 9.0 8.9 - 10.2 mg/dL 01/18/2025 1:30 AM EDT [facility] eGFRcr 118.4 mL/min/1.7 3m*2 01/18/2025 1:30 AM EDT [facility] Comment:Reported eGFRcr in m L/min/1.73m2 is based the CKD-EPI 2020 equation that does not use a race coefficient. Blood Venous blood specimen / Unknown Venipuncture / Unknown 01/18/2025 12:18 AM EDT 01/18/2025 12:27 AM EDT us Sachin Garza MD LAB BLOOD ORDERABLES Final R esult [facility] [address] [place] [address] * (ABNORMAL) CBC W/O Differential (01/18/2025 12:18 AM EDT) WBC Count 8.77 3.70 - 10.30 10*3/uL LAB HEMATOLOGY METHOD 01/18/2025 12:36 AM EDT [facility] RBC Count 3.94(L) 4.60 - 6.10 10*6/uL LAB HEMATOLOGY METHOD 01/18/2025 12:36 AM EDT [facility] HGB 11.7(L) 13.7 - 17.5 g/dL LAB HEMATOLOGY METHOD 01/18/2025 12:36 AM EDT [facility] HCT 37.1(L) 40.0 - 51.0 % LAB HEMATOLOGY METHOD 01/18/2025 12:36 AM EDT [facility] Platelet Count 347 155 - 369 10*3/uL LAB HEMATOLOGY METHOD 01/18/2025 12:36 AM EDT [facility] MCV 94 79 - 98 fL LAB HEMATOLOGY METHOD 01/18/2025 12:36 AM EDT [facility] MCH 29.7 26.0 - 32.0 pg LAB HEMATOLOGY METHOD 01/18/2025 12:36 AM EDT [facility] MCHC 31.5 30.7 - 35.5 g/dL LAB HEMATOLOGY METHOD 01/18/2025 12:36 AM EDT [facility] RDW 13.1 11.5 - 14.5 % LAB HEMATOLOGY METHOD 01/18/2025 12:36 AM EDT [facility] MPV 9.5 8.8 - 12.5 fL LAB HEMATOLOGY METHOD 01/18/2025 12:36 AM EDT [facility] nRBC 0.0 <=0.0 per 100 WBCs LAB HEMATOLOGY METHOD 01/18/2025 12:36 AM EDT [facility] Blood Venous blood specimen / Unknown Venipuncture / Unknown 01/18/2025 12:18 AM EDT 01/18/2025 12:29 AM EDT us Sachin Garza MD LAB BLOOD ORDERABLES Final R esult Performing Organization Address [facility] Co de Phone Number [facility] [address] [place] [address] * Vancomycin, Peak, Plasma Please draw ~2 hours after 1000 dose of vancomycin on Monday finishes infusing. Consider obtaining level via peripheral stick. If peripheral stick is not feasible, please ensure that line is flushed well prior to drawing l... (01/17/2025 2:03 PM EDT) [facility] Vancomycin, Peak, Plasma 22.0 20.0 - 40.0 ug/mL 01/17/2025 3:01 PM EDT [facility] Blood Venous blood specimen / Unknown Venipuncture / Unknown 01/17/2025 2:03 PM EDT 01/17/2025 2:32 PM EDT Narrative [facility] - 01/17/2025 3:01 PM EDT Therapeutic Peak level: 20-40ug/mL Supra-therapeutic Peak level: >40 ug/mL us Sachin Garza MD LAB BLOOD ORDERABLES Final R esult Performing Organization Address City/[facility]/ZIP Co de Phone Number [facility] [address] [place] [address] * Vancomycin, Trough, Plasma Please draw ~30 minutes prior to dose due at 1000 on Monday. Please do NOT hold dose awaiting level to return. Consider obtaining level via peripheral stick. If peripheral stick is not feasible, please ensure that line ... (01/17/2025 9:53 AM EDT) Vancomycin, Trough, Plasma 12.5 10.0 - 20.0 ug/mL 01/17/2025 10:24 AM EDT [facility] Blood Venous blood specimen / Unknown Venipuncture / Unknown 01/17/2025 9:53 AM EDT 01/17/2025 9:57 AM EDT Narrative [facility] - 01/17/2025 10:24 AM EDT Therapeutic Trough level: 10-20ug/mL Supra-therapeutic Trough level: >20 ug/mL us Sachin Garza MD LAB BLOOD ORDERABLES Final R esult [facility] [address] [place] [address] * (ABNORMAL) Basic metabolic panel (01/17/2025 4:05 AM EDT) Pathologist [facility] Glucose, Plasma 117(H) 74 - 99 mg/dL 01/17/2025 5:16 AM EDT [facility] BUN, Plasma 13 7 - 21 mg/dL 01/17/2025 5:16 AM EDT [facility] Creatinine, Plasma 0.75 0.70 - 1.20 mg/dL 01/17/2025 5:16 AM EDT [facility] BUN/Creatinine Ratio 17 01/17/2025 5:16 AM EDT [facility] Sodium, Plasma 135(L) 136 - 145 mmol/L 01/17/2025 5:16 AM EDT [facility] Potassium, Plasma 4.5 3.6 - 4.9 mmol/L 01/17/2025 5:16 AM EDT [facility] Chloride, Plasma 100 97 - 107 mmol/L 01/17/2025 5:16 AM EDT [facility] CO2, Plasma 25 22 - 29 mmol/L 01/17/2025 5:16 AM EDT [facility] Anion Gap 10 6 - 16 mmol/L 01/17/2025 5:16 AM EDT [facility] Total Calcium, Plasma 9.1 8.9 - 10.2 mg/dL 01/17/2025 5:16 AM EDT [facility] eGFRcr 120.7 mL/min/1.7 3m*2 01/17/2025 5:16 AM EDT [facility] Comment:Reported eGFRcr in m L/min/1.73m2 is based the CKD-EPI 2020 equation that does not use a race coefficient. Blood Venous blood specimen / Unknown Venipuncture / Unknown 01/17/2025 4:05 AM EDT 01/17/2025 4:35 AM EDT us Sachin Garza MD LAB BLOOD ORDERABLES Final R esult [facility] [address] [place] [address] * [place] Extremity Limited MSK or Soft [...] - 99 mg/dL 01/16/2025 5:15 AM EDT [facility] BUN, Plasma 12 7 - 21 mg/dL 01/16/2025 5:15 AM EDT [facility] Creatinine, Plasma 0.66(L) 0.70 - 1.20 mg/dL 01/16/2025 5:15 AM EDT [facility] BUN/Creatinine Ratio 18 01/16/2025 5:15 AM EDT [facility] Sodium, Plasma 136 136 - 145 mmol/L 01/16/2025 5:15 AM EDT [facility] Potassium, Plasma 4.5 3.6 - 4.9 mmol/L 01/16/2025 5:15 AM EDT [facility] Chloride, Plasma 100 97 - 107 mmol/L 01/16/2025 5:15 AM EDT [facility] CO2, Plasma 26 22 - 29 mmol/L 01/16/2025 5:15 AM EDT [facility] Anion Gap 10 6 - 16 mmol/L 01/16/2025 5:15 AM EDT [facility] Total Calcium, Plasma 8.8(L) 8.9 - 10.2 mg/dL 01/16/2025 5:15 AM EDT [facility] eGFRcr 125.4 mL/min/1.7 3m*2 01/16/2025 5:15 AM EDT [facility] Comment:Reported eGFRcr in m L/min/1.73m2 is based the CKD-EPI 2020 equation that does not use a race coefficient. Blood Venous blood specimen / Unknown Venipuncture / Unknown 01/16/2025 4:31 AM EDT 01/16/2025 4:46 AM EDT us Jeffrey Matute MD LAB BLOOD ORDERABLES Final Re sult [facility] [address] [place] [address] * Prothrombin Time/INR (01/16/2025 4:31 AM EDT) Prothrombin Time 12.9 12.0 - 14.3 sec 01/16/2025 4:46 AM EDT [facility] INR 1.0 0.9 - 1.1 01/16/2025 4:46 AM EDT [facility] Blood Venous blood specimen / Unknown Venipuncture / Unknown 01/16/2025 4:31 AM EDT 01/16/2025 4:33 AM EDT Narrative [facility] - 01/16/2025 4:46 AM EDT OPTIMAL INR RANGES FOR PATIENT ON ORAL ANTICOAGULANT THERAPY Prevention of venous thromboembolism INR 2.0 to 3.0 In patients with heart disease: Atrial fibrillation INR 2.0 to 3.0 Valvular heart disease INR 2.0 to 3.0 Tissue heart valves INR 2.0 to 3.0 Mechanical prosthetic valves INR 2.5 to 3.5 Prevention of recurrent VA INR 2.5 to 3.5 us Jeffrey Matute MD LAB BLOOD ORDERABLES Final Re sult [facility] [address] [place] [address] * (ABNORMAL) CBC W/O Differential (01/16/2025 4:31 AM EDT) WBC Count 17.78(H) 3.70 - 10.30 10*3/uL LAB HEMATOLOGY METHOD 01/16/2025 4:36 AM EDT [facility] RBC Count 4.14(L) 4.60 - 6.10 10*6/uL LAB HEMATOLOGY METHOD 01/16/2025 4:36 AM EDT [facility] HGB 12.4(L) 13.7 - 17.5 g/dL LAB HEMATOLOGY METHOD 01/16/2025 4:36 AM EDT [facility] HCT 37.6(L) 40.0 - 51.0 % LAB HEMATOLOGY METHOD 01/16/2025 4:36 AM EDT [facility] Platelet Count 359 155 - 369 10*3/uL LAB HEMATOLOGY METHOD 01/16/2025 4:36 AM EDT [facility] MCV 91 79 - 98 fL LAB HEMATOLOGY METHOD 01/16/2025 4:36 AM EDT [facility] MCH 30.0 26.0 - 32.0 pg LAB HEMATOLOGY METHOD 01/16/2025 4:36 AM EDT [facility] MCHC 33.0 30.7 - 35.5 g/dL LAB HEMATOLOGY METHOD 01/16/2025 4:36 AM EDT [facility] RDW 13.2 11.5 - 14.5 % LAB HEMATOLOGY METHOD 01/16/2025 4:36 AM EDT [facility] MPV 9.3 8.8 - 12.5 fL LAB HEMATOLOGY METHOD 01/16/2025 4:36 AM EDT [facility] nRBC 0.0 <=0.0 per 100 WBCs LAB HEMATOLOGY METHOD 01/16/2025 4:36 AM EDT [facility] Blood Venous blood specimen / Unknown Venipuncture / Unknown 01/16/2025 4:31 AM EDT 01/16/2025 4:33 AM EDT us Jeffrey Matute MD LAB BLOOD ORDERABLES Final Re sult [facility] [address] [place] [address] * CT Tibia Fibula Left w IV [...] at day 5 01/21/2025 2:02 AM EDT [facility] Blood Venous blood specimen / Unknown Venipuncture / Unknown 01/16/2025 12:24 AM EDT 01/16/2025 1:12 AM EDT Narrative [facility] - 01/21/2025 2:02 AM EDT Low blood volume submitted, results may be compromised Gus Vigil APRN LAB MICROBIOLOGY - GENER AL ORDERABLES Final Result [facility] [address] [place] [address] * XR Chest 1 View (01/15/2025 11:21 [...] MD on 01/15/2025 11:40 PM Gus Vigil APRN IMG XR PROCEDURES Final Result * XR [...] MD on 01/15/2025 11:40 PM Gus Vigil [employer] IMG XR PROCEDURES Final Result * Type and Screen (01/15/2025 10:51 PM EDT) Pathologist [facility] ABO/Rh A Positive 01/15/2025 10:26 PM EDT [facility] Antibody Screen Negative 01/15/2025 10:26 PM EDT [facility] Specimen Expiration 01/18/2025 23:59 01/15/2025 10:26 PM EDT [facility] Blood Venous blood specimen / Unknown Venipuncture / Unknown 01/15/2025 10:51 PM EDT 01/15/2025 10:58 PM EDT Ye Navarro MD LAB BLOOD BANK TEST ORDERA BLES Final Result Performing Organization Address City/[facility]/ZIP Co de Phone Number [facility] BANK [address] [place] [address], [place] * ECG Adult (01/15/2025 10:46 PM EDT) EKG DIAGNOSIS CLASS Normal MUSE ECG Ventricular Rate 92 BPM MUSE ECG Atrial Rate 92 BPM MUSE ECG [place] Interval 122 ms MUSE ECG QRSD Interval 102 ms MUSE ECG QT Interval 350 ms MUSE ECG QTC Interval 432 ms MUSE ECG P [place] 56 degrees MUSE ECG R [place] 44 degrees MUSE ECG T Wave [place] 57 degrees MUSE ECG Diagnosis Normal sinus [...] at day 5 01/20/2025 11:01 PM EDT [facility] Blood Structure of antecubital vein / Unknown Venipuncture / Unknown 01/15/2025 10:11 PM EDT 01/15/2025 10:19 PM EDT Narrative [facility] - 01/20/2025 11:01 PM EDT Low blood volume submitted, results may be compromised [facility] [employer] LAB MICROBIOLOGY - GENER AL ORDERABLES Final Result Performing Organization Address City/[facility]/ZIP Co de Phone Number [facility] [address] [place] [address] * (ABNORMAL) Sed rate, automated (01/15/2025 10:11 PM EDT) Sedimentation Rate 46(H) <15 mm/hr 2024 10:34 PM EDT [facility] Blood Venous blood specimen / Unknown Venipuncture / Unknown 01/15/2025 10:11 PM EDT 01/15/2025 10:12 PM EDT [facility] BLOOD ORDERABLES Fin al Result Performing Organization Address [facility] Co de Phone Number [facility] [address] [place] [address] * (ABNORMAL) C-Reactive protein (01/15/2025 10:11 PM EDT) Pathologist [facility] CRP, Plasma 91.9(H) <=8.0 mg/L 01/15/2025 10:32 PM EDT [facility] Blood Venous blood specimen / Unknown Venipuncture / Unknown 01/15/2025 10:11 PM EDT 01/15/2025 10:12 PM EDT Narrative [facility] - 01/15/2025 10:32 PM EDT This CRP test is appropriate for assessment of infection, systemic inflammation and/or tissue injury. To assess cardiovascular disease risk order high sensitivity CRP (CRPH). [facility] LAB BLOOD ORDERABLES Fin al Result Performing Organization Address City/[facility]/ZIP Co de Phone Number [facility] [address] [place] [address] * (ABNORMAL) Blood gas panel, venous (01/15/2025 10:11 PM EDT) [facility] pH, Venous 7.39 7.32 - 7.43 LAB HEMATOLOGY METHOD 01/15/2025 10:14 PM EDT [facility] pCO2, Venous 47 40 - 55 mmHg LAB HEMATOLOGY METHOD 01/15/2025 10:14 PM EDT [facility] pO2, Venous 34 25 - 40 mmHg LAB HEMATOLOGY METHOD 01/15/2025 10:14 PM EDT [facility] SO2, Measured, Venous 68 65 - 80 % LAB HEMATOLOGY METHOD 01/15/2025 10:14 PM EDT [facility] Base Excess, Venous 2.8 -2.0 - 3.0 mmol/L LAB HEMATOLOGY METHOD 01/15/2025 10:14 PM EDT [facility] Bicarbonate, Calculated, Venous 29(H) 22 - 26 mmol/L LAB HEMATOLOGY METHOD 01/15/2025 10:14 PM EDT [facility] Hematocrit, Whole Blood 40.4 40.0 - 51.0 % LAB HEMATOLOGY METHOD 01/15/2025 10:14 PM EDT [facility] Sodium, Whole Blood 135(L) 136 - 145 mmol/L LAB HEMATOLOGY METHOD 01/15/2025 10:14 PM EDT [facility] Potassium, Whole Blood 4.3 3.6 - 4.9 mmol/L LAB HEMATOLOGY METHOD 01/15/2025 10:14 PM EDT [facility] Chloride, Whole Blood 99 97 - 107 mmol/L LAB HEMATOLOGY METHOD 01/15/2025 10:14 PM EDT [facility] Glucose, Whole Blood 110(H) 74 - 99 mg/dL LAB HEMATOLOGY METHOD 01/15/2025 10:14 PM EDT [facility] Lactate, Venous, Whole Blood 1.1 0.5 - 2.2 mmol/L LAB HEMATOLOGY METHOD 01/15/2025 10:14 PM EDT [facility] Ionized Calcium, Whole Blood 4.6 4.6 - 5.1 mg/dL LAB HEMATOLOGY METHOD 01/15/2025 10:14 PM EDT [facility] Blood Venous blood specimen / Unknown Venipuncture / Unknown 01/15/2025 10:11 PM EDT 01/15/2025 10:12 PM EDT us Gus Soares Y[employer] LAB BLOOD ORDERABLES Fin al Result [facility] [address] [place] [address] * (ABNORMAL) CMP (01/15/2025 10:11 PM EDT) Glucose, Plasma 116(H) 74 - 99 mg/dL 01/15/2025 10:32 PM EDT [facility] BUN, Plasma 14 7 - 21 mg/dL 01/15/2025 10:32 PM EDT [facility] Creatinine, Plasma 0.78 0.70 - 1.20 mg/dL 01/15/2025 10:32 PM EDT [facility] BUN/Creatinine Ratio 18 01/15/2025 10:32 PM EDT [facility] Sodium, Plasma 134(L) 136 - 145 mmol/L 01/15/2025 10:32 PM EDT [facility] Potassium, Plasma 4.6 3.6 - 4.9 mmol/L 01/15/2025 10:32 PM EDT [facility] Chloride, Plasma 97 97 - 107 mmol/L 01/15/2025 10:32 PM EDT [facility] CO2, Plasma 24 22 - 29 mmol/L 01/15/2025 10:32 PM EDT [facility] Anion Gap 13 6 - 16 mmol/L 01/15/2025 10:32 PM EDT [facility] Total Calcium, Plasma 8.7(L) 8.9 - 10.2 mg/dL 01/15/2025 10:32 PM EDT [facility] Total Protein 6.5 6.3 - 7.9 g/dL 01/15/2025 10:32 PM EDT [facility] Albumin, Plasma 3.7 3.5 - 5.2 g/dL 01/15/2025 10:32 PM EDT [facility] AST, Plasma 23 10 - 50 U/L 01/15/2025 10:32 PM EDT [facility] ALT, Plasma 52(H) 10 - 50 U/L 01/15/2025 10:32 PM EDT [facility] Alkaline Phosphatase, Plasma 124(H) 40 - 115 U/L 01/15/2025 10:32 PM EDT [facility] Total Bilirubin, Plasma 0.3 0.2 - 1.1 mg/dL 01/15/2025 10:32 PM EDT [facility] eGFRcr 119.3 mL/min/1.7 3m*2 01/15/2025 10:32 PM EDT [facility] Comment:Reported eGFRcr in m L/min/1.73m2 is based the CKD-EPI 2020 equation that does not use a race coefficient. Blood Venous blood specimen / Unknown Venipuncture / Unknown 01/15/2025 10:11 PM EDT 01/15/2025 10:12 PM EDT Gus Vigil APRN LAB BLOOD ORDERABLES Fin al Result Performing Organization Address City/[facility]/ZIP Co de Phone Number [facility] [address] [place] [address] * PT-INR (01/15/2025 10:11 PM EDT) Pathologist [facility] Prothrombin Time 12.5 12.0 - 14.3 sec 01/15/2025 10:28 PM EDT [facility] INR 1.0 0.9 - 1.1 01/15/2025 10:28 PM EDT [facility] Blood Venous blood specimen / Unknown Venipuncture / Unknown 01/15/2025 10:11 PM EDT 01/15/2025 10:12 PM EDT Narrative [facility] - 01/15/2025 10:28 PM EDT OPTIMAL INR RANGES FOR PATIENT ON ORAL ANTICOAGULANT THERAPY Prevention of venous thromboembolism INR 2.0 to 3.0 In patients with heart disease: Atrial fibrillation INR 2.0 to 3.0 Valvular heart disease INR 2.0 to 3.0 Tissue heart valves INR 2.0 to 3.0 Mechanical prosthetic valves INR 2.5 to 3.5 Prevention of recurrent VA INR 2.5 to 3.5 [facility]usliz Vigil APRN LAB BLOOD ORDERABLES Fin al Result [facility] [address] [place] [address] * (ABNORMAL) CBC w/diff (01/15/2025 10:11 PM EDT) WBC Count 19.24(H) 3.70 - 10.30 10*3/uL LAB HEMATOLOGY METHOD 01/15/2025 10:14 PM EDT [facility] RBC Count 4.33(L) 4.60 - 6.10 10*6/uL LAB HEMATOLOGY METHOD 01/15/2025 10:14 PM EDT [facility] HGB 13.0(L) 13.7 - 17.5 g/dL LAB HEMATOLOGY METHOD 01/15/2025 10:14 PM EDT [facility] HCT 39.3(L) 40.0 - 51.0 % LAB HEMATOLOGY METHOD 01/15/2025 10:14 PM EDT [facility] Platelet Count 383(H) 155 - 369 10*3/uL LAB HEMATOLOGY METHOD 01/15/2025 10:14 PM EDT [facility] MCV 91 79 - 98 fL LAB HEMATOLOGY METHOD 01/15/2025 10:14 PM EDT [facility] MCH 30.0 26.0 - 32.0 pg LAB HEMATOLOGY METHOD 01/15/2025 10:14 PM EDT [facility] MCHC 33.1 30.7 - 35.5 g/dL LAB HEMATOLOGY METHOD 01/15/2025 10:14 PM EDT [facility] RDW 13.2 11.5 - 14.5 % LAB HEMATOLOGY METHOD 01/15/2025 10:14 PM EDT [facility] MPV 9.2 8.8 - 12.5 fL LAB HEMATOLOGY METHOD 01/15/2025 10:14 PM EDT [facility] nRBC 0.0 <=0.0 per 100 WBCs LAB HEMATOLOGY METHOD 01/15/2025 10:14 PM EDT [facility] Differential Type Automated LAB HEMATOLOGY METHOD 01/15/2025 10:14 PM EDT [facility] Neutrophils % 78 % LAB HEMATOLOGY METHOD 01/15/2025 10:14 PM EDT [facility] Lymphocytes % 12 % LAB HEMATOLOGY METHOD 01/15/2025 10:14 PM EDT [facility] Monocytes % 8 % LAB HEMATOLOGY METHOD 01/15/2025 10:14 PM EDT [facility] Eosinophils % 1 % LAB HEMATOLOGY METHOD 01/15/2025 10:14 PM EDT [facility] Basophils % 0 % LAB HEMATOLOGY METHOD 01/15/2025 10:14 PM EDT [facility] Immature Granulocytes % 1 % LAB HEMATOLOGY METHOD 01/15/2025 10:14 PM EDT [facility] Neutrophils Absolute 15.11(H) 1.60 - 6.10 10*3/uL LAB HEMATOLOGY METHOD 01/15/2025 10:14 PM EDT [facility] Lymphocytes Absolute 2.34 1.20 - 3.90 10*3/uL LAB HEMATOLOGY METHOD 01/15/2025 10:14 PM EDT [facility] Monocytes Absolute 1.46(H) 0.30 - 0.90 10*3/uL LAB HEMATOLOGY METHOD 01/15/2025 10:14 PM EDT [facility] Eosinophils Absolute 0.13 0.00 - 0.50 10*3/uL LAB HEMATOLOGY METHOD 01/15/2025 10:14 PM EDT [facility] Basophils Absolute 0.06 0.00 - 0.10 10*3/uL LAB HEMATOLOGY METHOD 01/15/2025 10:14 PM EDT [facility] Immature Granulocytes Absolute 0.14(H) 0.00 - 0.06 10*3/uL LAB HEMATOLOGY METHOD 01/15/2025 10:14 PM EDT [facility] Blood Venous blood specimen / Unknown Venipuncture / Unknown 01/15/2025 10:11 PM EDT 01/15/2025 10:12 PM EDT Narrative [facility] - 01/15/2025 10:14 PM EDT Therapeutic decision making should be based on absolute values, rather than percentages. us Gus Vigil APRN LAB BLOOD ORDERABLES Fin al Result [facility] [address] [place] [address] documented in this encounter Visit Diagnoses Diagnosis Cellulitis of leg, left- Primary Sepsis following procedure, initial encounter ([facility]) Cellulitis of left lower extremity Acute postoperative pain Other acute postoperative pain Closed fracture of left tibial plateau with routine healing, subsequent encounter Cellulitis of leg, left Cellulitis of left lower extremity Sepsis following procedure ([facility]) Closed fracture of left tibial plateau documented in this encounter Admitting Diagnoses Diagnosis Cellulitis of leg, left Cellulitis of left lower extremity Sepsis following procedure ([facility]) Closed fracture of left tibial [...] dose, First dose (after last modification) on 01/22/25 at 0900, Routine New Bag 01/22/2025 8:47 [...] Oral, 2 times daily, First dose on Sneha [...] Routine 1011 (New Bag - Provider: Katalina Martinez RN) enoxaparin (Lovenox) syringe 60 mg 60 [...] 09 (Medication Applied - Provider: Katalina Martinez, SEHREEN) 0847 (Medication Applied - Provider: Leigh Rg [...] Routine 1400 (New Bag - Provider: Alem Witt, RN) PRN Medication Order 01/20/2025 01/21/2025 01/22/2025 bisacodyl (Dulcolax) suppository 10 mg 10 mg, Rectal, Daily PRN, Starting on Sneha 01/16/25 at 0750, Until Mon01/22/25 at 1922, Routine, constipation, if no bowel movement for 72 hours and no response to magnesium hydroxide 0924 ([facility] Hold - Provider: Automatic Transfer Provider - Reason: Patient in procedure)121 ([facility] Unhold - Provider: Automatic Transfer Provider) HYDROmorphone [...] 0411 (Given - Provider: Taryn Miranda RN)09 ([facility] Hold - Provider: Automatic Transfer Provider - Reason: Patient in procedure)121 ([facility] Unhold - Provider: Automatic Transfer Provider)1630 (Not Given - Provider: Alem Witt, SHEREEN - Reason: Patient/family refused)2002 (Given - Provider: Taryn Miranda RN) 431 (Given - Provider: Taryn Miranda RN)210 (Given - Provider: Taryn Miranda RN) magnesium hydroxide (Milk of Magnesia) 400 MG/5ML suspension 30 mL 30 mL, Oral, Daily PRN, Starting on Sneha 01/16/25 at 0750, Until Mon01/22/25 at 1922, Routine, constipation, if no bowel movement for 48 hours 0924 ([facility] Hold - Provider: Automatic Transfer Provider - Reason: Patient in procedure)121 ([facility] Unhold - Provider: Automatic Transfer Provider) naloxone (Narcan) injection 0.08 mg 0.08 mg, Intravenous, As needed, Starting on Sneha 01/16/25 at 0753, Until Mon01/22/25 at 1922, Routine, respiratory depression, every 2 minutes 0924 ([facility] Hold - Provider: Automatic Transfer [...] RN)2002 (Given - Provider: Taryn Miranda RN) 002 (Given - Provider: Taryn Miranda RN)0433 (Given - Provider: Taryn Miranda RN) oxyCODONE (Roxicodone) immediate release tablet 5 mg 5 mg, Oral, Every 6 hours PRN, Starting on Mon01/21/25 at 0847, Until Mon01/22/25 at 1922, Routine, severe pain 0903 (Given - Provider: Katalina Martinez, SHEREEN)1857 (Given - Provider: Katalina Martinez, RN)2320 (Given - Provider: Taryn Miranda RN) [...] documented as of this encounter Care Teams St[employer] Relationship Specialty Start Date End Date Renetta Pardo APRN [address] [place] [address] [place] [address] PCP - General 09/09/23 02/16/25 documented as of this encounter
--- OUTSIDE RECORDS SUMMARY | 2025-01-18 09:01 | XMS_ITS | Encounter Summary ---
Author Organization Healthcare Address [address] [place] [address] Care Team Providers Care Medication Assistant Name Role Phone Renetta Pardo APRN Primary Care Provider [phone] Reason for Visit * Reason Comments Post-op Problem * Auth/Cert (Routine) Specialty Diagnoses / Procedures Referred By Adalid t Referred To Contact Diagnoses Acute postoperative pain Cellulitis of leg, left Cellulitis of left lower extremity Sepsis following procedure, initial encounter ([facility]) recent LLE surgery @ now with cellulitis Sachin Garza MD [address] [address] Phone: tel: fax: P[facility] H Inpatient [address] [place] [address] Phone: tel: Referral ID Status Reason Start Date Expiration Date Visits Re quested Visits Authorized [id number] 1 1 Encounter Details Date Type Department Care Team (Late st Contact Info) Description 01/18/2025 9:01 AM EDT - 01/18/2025 11:06 AM EDT Surgery [facility] A OPERATING ROOM [address] [place] [id number] Ye Navarro MD [address] [address] INCISION AND DRAINAGE, LOWER EXTREMITY [...] place to sleep or slept in a intermediate (including now)? No 09/12/2023 Humiliation, Afraid, Rape, [...] any time in the past 12 m [facility], were you homeless or living in a intermediate (including now)? No 01/17/2025 CAGE ASSESSMENT Answer [...] drink first t traci in the morning (EYE-JOURNEYMAN MOLDER) to steady your nerves or to get rid of a hangover? 0 09/10/2023 CAGE Questionnaire Score 0 024 Utilities Answer Date Recorded In the past 12 months has th e [employer], gas, oil, or water company threatened to [...] the video go to this web address: https://bit.The ADEX/3WvNlbS Or, scan this QR code with your smart phone ?? [facility] * Rosaura OnFHIR - Leigh Rg RN - 01/22/2025 4:21 PM EDT Images from the original note were not included. 78434 Flushing Your PICC Line at Home Your [...] soap and water, use an alcohol-based hand tie loader. The gel should have at least 60% [...] PICC. Last Reviewed Date: 2024 00:00:00 ?? 0833-2161 The [employer]. All rights reserved. This information is not intended as a substitute for professional medical care. Always follow your healthcare professional's instructions. * Rosaura OnIR - Leigh Rg RN - 01/22/2025 4:21 PM EDT Images from the original note were not included. 26140 Discharge Instructions: Changing the Dressing on Your [...] damage Last Reviewed Date: 2024 00:00:00 ?? 8273-7439 The [employer]. All rights reserved. This information is not [...] the video go to this web address: [email or web address] [email or web address] Or, scan this QR code with your smart phone ?? [facility] * Leigh Muller RN - 01/22/2025 4:20 PM EDT Images from the original note were not included. 62115 Understanding Post Sepsis Syndrome (PSS) Sepsis is [...] infections Last Reviewed Date: 2022 00:00:00 ?? [id number] The [employer]. All rights reserved. This information is not intended as a substitute for professional medical care. Always follow your healthcare professional's instructions. * Rosaura OnFHIR - Leigh Rg RN - 01/22/2025 4:20 PM EDT Images from the original note were not included. [id number] Buckle (Torus) Fracture of a Leg Your [...] wet, you can dry it with a music department chair on the cool setting. ? [...] doctor Last Reviewed Date: 2024 00:00:00 ?? 6578-5461 The [employer]. All rights reserved. This information is not intended as a substitute for professional medical care. Always follow your healthcare professional's instructions. * [place] - Leigh Rg RN - 01/22/2025 4:20 PM EDT Images from the original note were not included. 48149 Discharge Instructions for Cellulitis You have been [...] are in pain. Ask what kind of qars-znp-zvpjrcx medicine you can take for pain. ? [...] Vomiting. Last Reviewed Date: 2024 00:00:00 ?? 4221-2149 The [employer]. All rights reserved. This information is not intended as a substitute for professional medical care. Always follow your healthcare professional's instructions. * Discharge Summary - Mauricio Mondragon MD - 01/22/2025 4:16 PM EDT Hospitalization Admit Date/Time: 01/15/2025 9:32 PM Admitting Attending: Sachin Garza Discharge Date: 01/22/25 Discharge Attending Physician: Sachin Garza MD PCP name and Address: Renetta Pardo APRN [address] [place] [address] Dr Silverman / [facility] [address] Referring provider name and address: Maldonado Luciano PA [address] [place] [address] [place] [address] Chief Concern, Brief History of Present Illness, and Hospital Course Patient arrived to [facility] on 01/15/25 with concern for surgical site [...] medications were sent to [facility] -[place], [place] - [address], [facility] [address] DAPTOmycin injection These medications were sent to [facility] - [place], [place] - [address] [facility] [address] oxyCODONE 5 MG immediate release capsule Discharge [...] left Sepsis following procedure ([facility]) Cellulitis of left lower extremity [...] Time Provider Department Center 01/27/2025 11:00 AM [facility] 02/03/2025 8:10 AM Lawrence Hayes MD [facility] 02/11/2025 1:00 PM Ary Santiago APRN [facility] [place] 03/03/2025 1:00 PM Ary Santiago APRN IDBCCLX [place] Test Results Pending At Discharge Pending Labs [...] General: Spoke with: Patient, Family, and Bedside cloth spreader screen printing and Interventions: Assessed: Dressing Dressing Interventions: CDI [...] please contact the Orthopedic Transition Nurse at [phone] Monday through Monday 8:00 am to 2:30 pm. If you feel your concern is a medical emergency please call 911 immediately * Progress Notes - Anna Elam RN - 01/22/2025 9:28 AM EDT Case Management Discharge Note Ravin Ribeiro 34 y.o. male CSN: [id number] Admission: 01/15/2025 9:32 PM Primary Problem: Cellulitis of leg, left Primary Contract Forester: Primary Caregiver: Self Assistance Available at Discharge: Current Outpatient/Agency/Support Group: DME Availability of Care Givers (#Hours): 24 hours Family/Contract Forester(s) Willingness Assessed to care for patient at home: Yes Family/Contract Forester(s) Readiness Assessed to care for patient at [...] Community Agency(s): Patient's Choice of Community Agency(s): [facility] Patient/Family Anticipated Services at Transition: Patient/Family Anticipated [...] will follow up at [facility] for weekly PICC care and labs. First appointment is scheduled for 01/27 at 11 AM. Pt's family will be able to provide assistance and transportation. [facility] will complete teaching today and deliver IV ABX to bedside around 3 PM. Pt and S/O is aware and agreeable to discharge POC. [facility] [phone] [phone] Anna Elam RN * Progress Notes - [...] required Ayden Canseco MD PGY-1, Orthopaedic Surgery [facility] Orthopaedic Trauma Service Pager: [phone] Orthopaedic Recon/Spine/Foot and Ankle Service Pager: [phone] Cosigned by Lawrence Hayes MD at 01/22/2025 [...] required Red Mondragon MD Orthopaedic Surgery PGY-1 [facility] Orthopaedic Trauma Service Pager: [phone] Orthopaedic Recon/Spine/Foot and Ankle Service Pager: [phone] Personal Pager: [phone] Cosigned by Lawrence Hayes MD at 01/22/2025 1:06 PM EDT * Procedures - Norma Miranda RN - 01/21/2025 7:01 PM EDTAssociated Order(s): Insert PICC line Insert PICC line Date/Time: 01/21/2025 7:01 PM Performed by: Norma Miranda RN Authorized by: Sachin Garza MD [place] Protocol: Verbal consent obtained?: Yes Written consent [...] preference Patient position: Supine Catheter Lot #: [id number] 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 There was no accepting companies in patient's area. CM spoke with patient and he is agreeable to either go to his local hospital [facility] or come to [facility] in [place] for his weekly PICC care/labs if needed. * Nursing Note - Camden Vital, RN - 01/21/2025 1:45 PM EDT Orthopedic Transition Nurse Note General: Spoke with: Patient, Family, and Bedside cloth spreader screen printing and Interventions: Assessed: Dressing Dressing Interventions: CDI [...] please contact the Orthopedic Transition Nurse at [phone] Monday through Monday 8:00 am to 2:30 pm. If you feel your concern is a medical emergency please call 911 immediately * Steff Odell RN - 01/21/2025 11:57 AM EDT Images from the original note were not included. [id number] PICC Line Care PICC stands for peripherally [...] arm Last Reviewed Date: 2024 00:00:00 ?? 5311-2317 The [employer]. All rights reserved. This information is not intended as a substitute for professional medical care. Always follow your healthcare professional's instructions. * Steff Odell RN - 01/21/2025 11:56 AM EDT Images from the original note were not included. 24235 * Steff Odell RN - 01/21/2025 11:56 AM EDT Images from the original note were not included. 24675 * Steff Odell RN - 01/21/2025 11:56 [...] your house or a medical facility. The caser shoe parts/oncology social work will setthat up based on [...] or during weekends/[place] holidays, call the paging lace roller operator at . Ask for the infectious disease fellow sewage reticulation drafting officer. Call the clinic if you have any [...] from the original note were not included. 80176 Flushing Your PICC Line at Home Your [...] soap and water, use an alcohol-based hand tie loader. The gel should have at least 60% [...] PICC. Last Reviewed Date: 2024 00:00:00 ?? 6762-1020 The [employer]. All rights reserved. This information is not intended as a substitute for professional medical care. Always follow your healthcare professional's instructions. * Rosaura OnDILLON - Steff Paz RN - 01/21/2025 11:56 AM EDT Images from the original note were not included. [id number] Daptomycin Injection Brand Name(s): Cubicin??, Cubicin RF??; [...] be awakened, immediately call emergency services at 651. What OTHER INFORMATION should I know? Keep [...] of all of the prescription and nonprescription (gedb-ujk-tneohwz) medicines you are taking, as well as [...] or pharmacist about specific clinical use. The [place] [employer] represents that the information provided hereunder was formulated with a reasonable standard of care, and in conformity with professional standards in the field. The [place] [employer] makes no [...] of an appropriate health home health care social worker, and the information is provided for informational purposes only. The entire monograph for a drug should be reviewed for a thorough understanding of the drug's actions, uses and side effects. The [place] [employer] does not endorse or recommend the use of any drug.The information is not a substitute for medical care. AHFS?? Patient Medication Information?. ?? Copyright, 2023. The [place] [employer] Pharmacists??, [address] [facility], [address], [place], [place]. All Rights Reserved. Duplication for commercial use must be authorized by [facility]. Selected Revisions: July 28, 2019. AHFS?? Patient Medication Information?. ?? Copyright, 2024 * Anthonyjose de jesus [place] - Steff Paz RN - 01/21/2025 11:56 AM EDT Images from the original note were not included. 74874 Discharge Instructions: Caring for Your Peripherally Inserted [...] damage. Last Reviewed Date: 2024 00:00:00 ?? 0115-5220 The [employer]. All rights reserved. This information is not intended as a substitute for professional medical care. Always follow your healthcare professional's instructions. * Rosaura OnFHIR - Steff Paz RN - 01/21/2025 11:56 AM EDT Images from the original note were not included. 20394 Central Line Infections You need a central [...] water. Or they use an alcohol-based hand tie loader containing at least 60% alcohol. ? Using [...] (warm or cold), and use alcohol-based hand tie loader with at least 60% alcohol as directed. To clean your hands well,follow the guidelines on this sheet. Visitors should wash their hands well when they arrive and when they leave. ? Make sure healthcare staff and your visitors clean their hands. They should use soap and clean, running water or an alcohol-based hand tie loader before and after checking the line. Don?t [...] good choice for cleaning your hands. The tie loader should have at least 60% alcohol. Note that some germs can't be killed by alcohol. Your healthcare team can answer any questions you have about when to use a hand tie loader, or when it?s better to wash with soap and water. Follow these steps: ? Spread the hand tie loader in the palm of one hand. (Check the package for specific guidelines.) ? Rub your hands together briskly. Clean the backs of your hands, the palms, between your fingers, and up your wrists. ? Rub until the tie loader is gone and your hands are completely [...] skin Last Reviewed Date: 2023 00:00:00 ?? 5709-1190 The [employer]. All rights reserved. This information is not [...] Single Lumen PICC Patient Specific Outpatient Circumstances: [address] [place] [address] Family Support: Extended Emergency Contact Information Primary Emergency Contact: Hayley Buenrostro Address: [address] [place] [address] Mobile Relation: Significant Other Preferred language: Citizen [place] Trimmer Helper needed? No Secondary Emergency Contact: Jenny Buenrostro Address: [place] [address] [place] Mobile Relation: Mother Contact information: Ravin Ribeiro [phone] (home) Outpatient services (including home infusion, home health, facility referral: See recent [facility] case management/social work note for finalization of services ID follow up appointment: Future Appointments Date Time Provider Department Center 02/03/2025 8:10 AM Lawrence Hayes MD [facility] 02/11/2025 1:00 PM Ary Santiago [...] via secure chat or staff messaging in [employer]. Patient and family will need to be [...] days prior to presentation. He presented to [facility] wherehe was febrile to 101.3F. Upon transfer [...] PA-C Division of Infectious Diseases Available on [employer] Chat History, assessment, and plan discussed with [...] labs to: ID OPAT Team Fax #: [phone] Appointments: Ary Santiago APRN on 02/11 at 1PM and 03/03 at 1PM [facility]: [address] [place] [address] (Select Option 3 for IV Antibiotic / PICC line related issues) For questions regarding OPAT prior to discharge, reach out to the OPAT team via [employer] Secure Chat (Group: OPAT Referral Team). For all questions regarding OPAT after discharge should be directed to the OPAT Team at (Select Option 3 for IV Antibiotics/PICC Issues) between 8am-5pm. After 5 pm, or during weekends/[place] holidays, please call the paging lace roller operator at to reach the on-call [...] at 01/18/25 1133 [2] Allergies Allergen Reactions Ripley Hives * Consults - Delma Ortiz - 01/21/2025 10:00 AM EDT Pastoral Care Note: Patient was appreciative of lieutenant ballistics's visit and expressed gratitude to the care team. he said family is on their way to him. Referral From: Medical Sales Initiated Pastoral Care Provided For: Patient Patient Profile: Spiritual Assessment: Support Systems/ Spiritual Resources: Treasure, Sense of Peace, Trust, Gratitude Spiritual Needs: Emotional support, Spiritual ritual Spiritual Issues: Discharge Interventions: Pastoral Care Outcomes: Patient Outcomes: Appreciative of Medical Sales Support, Expresses acceptance, Gratitude Cosigned by Macrina Dumont at 01/21/2025 6:24 PM EDT Associated attestation - Macrina Dumont - 01/21/2025 6:24 PM EDT This is to attest lieutenant ballistics internal grinder tender chart note has been reviewed and okayed. [...] to ambulate in room/hallway with family and hourly sales staff while remains inpatient. Patient demonstrates no further [...] Prevent or Manage Infection Flowsheets (Taken 01/20/2025 2627) Infection Management: aseptic technique maintained Fever Reduction/Comfort [...] Agree with above assessment and evaluation from resident/HEEL LIFT GOUGER. * Progress Notes - Anna Elam RN - 01/20/2025 10:48 AM EDT Case Management Adult Progress Note Ravin Ribeiro 34 y.o. male CSN: [id number] Admission: 01/15/2025 9:32 PM Primary Problem: Cellulitis [...] AM EDT Operative Note Date: 01/20/25 Location: [facility] Name: Ravin Ribeiro, : 1990, Diagnoses: Pre-op Diagnosis Closed fracture of left tibial plateau with routine healing, subsequent encounter Left proximal tibia (knee region) deep abscess Post-op Diagnosis Closed fracture of left tibial plateau with routine healing, subsequent encounter Left proximal tibia (knee region) deep abscess Procedure(s): Incision and drainage of left knee deep abscess Attending Surgeon(s): * Bob Nava - Primary Steward/Stewardess Smoke Room(s): * Emely Giron MD - Resident - [...] days prior to presentation. He presented to [facility]he was febrile to 101.3F. Upon transfer [...] PA-C Division of Infectious Diseases Available on [employer] Chat History, assessment, and plan discussed with [...] mg 5 mg Oral q4h PRN Tyrone Hwoard MD 5 mg at 01/20/25 0411 piperacillin-tazobactam [...] Gustavo Hightower MD [2] Allergies Allergen Reactions Ripley Hives * Consults - Ricco Howard RN [...] required Ayden Canseco MD PGY-1, Orthopaedic Surgery [facility] Orthopaedic Trauma Service Pager: [phone] Orthopaedic Recon/Spine/Foot and Ankle Service Pager: [phone] Cosigned by Sachin Garza MD at 01/20/2025 [...] following procedure, initial encounter ([facility]) 2. Cellulitis of left lower [...] admission Level of Mobility: Ambulatory- community Mobility [place]: Independent gait without device (intermittne use of [...] Mobility Bed Mobility Exam: Scooting/Bridging Level of [place]: Independent Bed Mobility Exam: Supine to Sit Level of [place]: Independent Transfers Transfer Exam: Sit to stand Level of [place]: Stand-by assist Physical/Nonphysical Assist: Verbal Cues Assistive Device: Walker, rolling Transfer Exam: Stand to Sit Level of [place]: Stand-by assist Physical/Nonphysical Assist: Verbal Cues Assistive Device: Walker, rolling Toilet Transfer Level of [place]: Stand-by assist Physical/Nonphysical Assist: Verbal Cues Type of Transfer: Ambulation, To toilet Assistive Device: Walker, rolling, Grab bar Functional Mobility Device: Rolling walker Assistance: Standby assist <Household distance, cuing for safety, pacing activity, RW management, and encouraged L LE WBAT-as permitted per chart (pt reports being used to NWB for pain management VENEER SAWYER) Balance Postural Appearance Posture: Within Functional Limits [...] admission Level of Mobility: Ambulatory- community Mobility [place]: Independent gait without device (intermittne use of [...] Mobility Bed Mobility Exam: Scooting/Bridging Level of [place]: Independent Bed Mobility Exam: Supine to Sit Level of [place]: Independent Transfers Transfer Exam: Sit to stand Level of [place]: Stand-by assist Physical/Nonphysical Assist: Verbal Cues Assistive Device: Walker, rolling Transfer Exam: Stand to Sit Level of [place]: Stand-by assist Physical/Nonphysical Assist: Verbal Cues Assistive [...] . Standardized Assessments Standardized Assessments Standardized Assessments: [facility] 6-Clicks Mobility Assessment AMPA 6-Clicks Mobility Assessment [...] 3-5 steps with a railing?: A little [facility] 6-Clicks Mobility Assessment Total : 23 No [...] required Red Mondragon MD Orthopaedic Surgery PGY-1 [facility] Orthopaedic Trauma Service Pager: [phone] Orthopaedic Recon/Spine/Foot and Ankle Service Pager: [phone] Personal Pager: [phone] Cosigned by Ye Nvaarro MD at 01/21/2025 7:48 AM EDT * [...] AM EDT Operative Note Date: 01/18/25 Location: [facility] Name: Ravin Ribeiro, : 1990, Diagnoses: Pre-op Diagnosis Cellulitis of left lower extremity Post-op Diagnosis Cellulitis of left lower extremity Procedure(s): Irrigation and debridement of left medial tibial plateau deep abscess Attending Surgeon(s): * Ye Navarro - Primary Steward/Stewardess Smoke Room(s): * Harvey Swift MD - Resident - [...] well as other factors in accordance with [place] policy. The left lower extremity was then 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 cloth spreader screen printing and Interventions: Assessed: Wound 01/01/25 Surgical Open Surgical Incision Pretibial Left;Proximal (Active) Wound Assessment Red 01/15/25 2150 Margins Well-defined edges;Attached edges 01/15/252149 Ajneth-Wound Assessment Red 01/15/25 2150 Closure Martha 01/15/25 [...] please contact the Orthopedic Transition Nurse at [phone] Monday through Monday 8:00 am to 2:30 [...] ] Family [ ] Friend [ ] Trimmer Helper [X] Medical records HISTORY OF PRESENT ILLNESS: [...] medial pretibial incision so he presented to [facility] for evaluation. He was febrile to101.3F at [...] on day of presentation. He lives in [place] with his , CONSTANZA, and 2 young [...] pain (painnot responsive to non-opioid analgesics). 01/02/25 Shuail Dueñas MD CURRENT MEDICATIONS: Current Medications[4] SOCIAL [...] days prior to presentation. He presented to [facility] wherehe was febrile to 101.3F. Upon transfer [...] PA-C Division of Infectious Diseases Available on [employer] Chat History, assessment, and plan discussed with ID attending, Dr. Azucena Collado The following complex inpatient infectious disease services were performed today: Complex antimicrobial therapy counseling and treatment [1] History reviewed. No pertinent past medical history. [2] Past Surgical History: Procedure Laterality Date LEG SURGERY Left [3] Allergies Allergen Reactions Ripley Hives [4] Current Facility-Administered Medications Medication Dose [...] Note Ravin Ribeiro 34 y.o. male CSN: [id number] Admission: 01/15/2025 9:32 PM Primary Problem: Cellulitis of leg, left Caregiver Assisted Living reviewed chart and spoke with patient to complete this Initial Case Management Assessment. PCP: Renetta Pardo APRN Emergency Contact: Extended Emergency Contact Information Primary Emergency Contact: Hayley Buenrostro Address: [address] [place] [address] Mobile Relation: Significant Other Preferred language: Citizen [place] Trimmer Helper needed? No Secondary Emergency Contact: Jenny Buenrostro Address: [address] [place] [address] Mobile Relation: Mother Insurance: Primary Visit Coverage Payer Plan Sponsor Code Group Number Group Name [employer] MEDICAID MOLINA [employer] [place] MEDICAID Primary Visit Coverage Subscriber Subscriber ID Subscriber Name Subscriber N Subscriber Address [id number] RAVIN RIBEIRO [id number] [place] [address] Patient information: Primary Caregiver: Self Support System: Immediate family Daily Living Activities: Functional Status: Independent Living Arrangements: Spouse/Significant other, Family Type of Residence: Private residence, Single Level [address] [place] [address] Current DME: Equipment Currently Used at Home: [...] Outpatient Dialysis Services: Living Will/Advance Directive/Power of Loin Puller /Guardian: Have you reviewed your Advance Directive [...] Pt states he lives at home in [place] with his , CONSTANZA, and two small 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 cloth spreader screen printing and Interventions: Assessed: Wound 01/01/25 Surgical Open Surgical Incision Pretibial Left;Proximal (Active) Wound Assessment Red 01/15/25 2150 Margins Well-defined edges;Attached edges 01/15/25 2150 Janeth-Wound Assessment Red 01/15/25 2150 Closure [place] 01/15/25 2150 Wound 01/01/25 Face Left;Upper (Active) [...] please contact the Orthopedic Transition Nurse at [phone] Monday through Monday 8:00 am to 2:30 [...] tibial pulse, cap refill <2 sec, digits [facility] Orthopedic Surgery Tertiary Exam Completed 01/16/25 [...] exams. Mitch Giron MD PGY-3, Orthopaedic Surgery [facility] Orthopaedic Trauma Service Pager: [phone] Orthopaedic Recon/Spine/Foot and Ankle Service Pager: [phone] Cosigned by Sachin Garza MD at 01/18/2025 [...] please contact the Orthopedic Transition Nurse at [phone] Monday through Monday 8:00 am to 2:30 [...] examinations WRadha Howard MD PGY-2, Orthopaedic Surgery [facility] Cosigned by Sachin Garza MD at 01/16/2025 [...] fracture Tabitha Howard MD PGY-2, Orthopaedic Surgery [facility] Orthopaedic Trauma Service Pager: [phone] Orthopaedic Recon/Spine/Foot and Ankle Service Pager: [phone] [1] History reviewed. No pertinent past medical [...] 25 tablet 0 [4] Allergies Allergen Reactions Ripley Hives Cosigned by Sachin Garza MD at [...] this ED in conjunction with Dr. Mann. -[facility] records were reviewed and used in this [...] following procedure, initial encounter ([facility]) Cellulitis of left lower extremity [...] following procedure, initial encounter ([facility]). Diagnoses of Cellulitis of left [...] Drug use: Never [5] Allergies Allergen Reactions Ripley Hives Gus Vigil APRN 01/16/25656 Cosigned by [...] following procedure, initial encounter ([facility]) Cellulitis of left lower extremity Acute postoperative pain Ultimately, this patient Was admitted (Admission) The primary encounter diagnosis was Sepsis following procedure, initial encounter ([facility]). Diagnoses of Cellulitis of left [...] Description 2025 7:50 AM EDT Office Visit [facility] [address] [place] [address] BrownStella, MANAGER FAMILY [address] [place] [address] 2025 10:30 AM EDT Office Visit [facility] [address] [place] [id number] Santiago Collado MD [address] [place] [address] [address] [place] [address] 03/27/2025 9:30 AM EDT Office Visit [facility] [address] [place] [id number] Santiago Collado MD [address] [place] [address] [address] [place] [address] Scheduled Orders Name Type Priority [...] C-reactive protein (01/22/2025 5:04 AM EDT) Pathologist [facility] CRP, Plasma 44.4(H) <=8.0 mg/L 01/22/2025 9:25 AM EDT [facility] Blood Venous blood specimen / Unknown Venipuncture / Unknown 01/22/2025 5:04 AM EDT 01/22/2025 5:31 AM EDT Narrative [facility] - 01/22/2025 9:25 AM EDT This CRP test is appropriate for assessment of infection, systemic inflammation and/or tissue injury. To assess cardiovascular disease risk order high sensitivity CRP (CRPH). us Michelle ZULUAGA LAB BLOOD ORDERABLES Final Res ult [facility] [address] [place] [address] * Lavender Top (01/22/2025 5:04 AM EDT) Pathologist [facility] Extra Hold for add-ons 01/22/2025 8:02 AM EDT [facility] Comment:Auto resulted. Blood Venous blood specimen / Unknown 01/22/2025 5:04 AM EDT 01/22/2025 5:30 AM EDT us Sachin Garza MD LAB BLOOD ORDERABLES Final R esult [facility] [address] [place] [address] * (ABNORMAL) Basic metabolic panel (01/22/2025 5:04 AM EDT) Pathologist [facility] Glucose, Plasma 91 74 - 99 mg/dL 01/22/2025 6:01 AM EDT [facility] BUN, Plasma 33(H) 7 - 21 mg/dL 01/22/2025 6:01 AM EDT [facility] Creatinine, Plasma 1.47(H) 0.70 - 1.20 mg/dL 01/22/2025 6:01 AM EDT [facility] BUN/Creatinine Ratio 22 01/22/2025 6:01 AM EDT [facility] Sodium, Plasma 137 136 - 145 mmol/L 01/22/2025 6:01 AM EDT [facility] Potassium, Plasma 5.3(H) 3.6 - 4.9 mmol/L 01/22/2025 6:01 AM EDT [facility] Chloride, Plasma 100 97 - 107 mmol/L 01/22/2025 6:01 AM EDT [facility] CO2, Plasma 28 22 - 29 mmol/L 01/22/2025 6:01 AM EDT [facility] Anion Gap 9 6 - 16 mmol/L 01/22/2025 6:01 AM EDT [facility] Total Calcium, Plasma 9.6 8.9 - 10.2 mg/dL 01/22/2025 6:01 AM EDT [facility] eGFRcr 63.4 mL/min/1.7 3m*2 01/22/2025 6:01 AM EDT [facility] Comment:Reported eGFRcr in m L/min/1.73m2 is based the CKD-EPI 2020 equation that does not use a race coefficient. Blood Venous blood specimen / Unknown Venipuncture / Unknown 01/22/2025 5:04 AM EDT 01/22/2025 5:31 AM EDT us Sachin Garza MD LAB BLOOD ORDERABLES Final R esult [facility] [address] [place] [address] * (ABNORMAL) CBC (01/21/2025 7:29 PM EDT) WBC Count 10.10 3.70 - 10.30 10*3/uL LAB HEMATOLOGY METHOD 01/21/2025 7:42 PM EDT [facility] RBC Count 3.82(L) 4.60 - 6.10 10*6/uL LAB HEMATOLOGY METHOD 01/21/2025 7:42 PM EDT [facility] HGB 11.5(L) 13.7 - 17.5 g/dL LAB HEMATOLOGY METHOD 01/21/2025 7:42 PM EDT [facility] HCT 35.2(L) 40.0 - 51.0 % LAB HEMATOLOGY METHOD 01/21/2025 7:42 PM EDT [facility] Platelet Count 446(H) 155 - 369 10*3/uL LAB HEMATOLOGY METHOD 01/21/2025 7:42 PM EDT [facility] MCV 92 79 - 98 fL LAB HEMATOLOGY METHOD 01/21/2025 7:42 PM EDT [facility] MCH 30.1 26.0 - 32.0 pg LAB HEMATOLOGY METHOD 01/21/2025 7:42 PM EDT [facility] MCHC 32.7 30.7 - 35.5 g/dL LAB HEMATOLOGY METHOD 01/21/2025 7:42 PM EDT [facility] RDW 13.1 11.5 - 14.5 % LAB HEMATOLOGY METHOD 01/21/2025 7:42 PM EDT [facility] MPV 9.1 8.8 - 12.5 fL LAB HEMATOLOGY METHOD 01/21/2025 7:42 PM EDT [facility] nRBC 0.0 <=0.0 per 100 WBCs LAB HEMATOLOGY METHOD 01/21/2025 7:42 PM EDT [facility] Blood Venous blood specimen / Unknown Venipuncture / Unknown 01/21/2025 7:29 PM EDT 01/21/2025 7:35 PM EDT us Sachin Garza MD LAB BLOOD ORDERABLES Final R esult [facility] [address] [place] [address] * (ABNORMAL) Basic metabolic panel (01/21/2025 7:29 PM EDT) Pathologist [facility] Glucose, Plasma 122(H) 74 - 99 mg/dL 01/21/2025 8:03 PM EDT [facility] BUN, Plasma 31(H) 7 - 21 mg/dL 01/21/2025 8:03 PM EDT [facility] Creatinine, Plasma 1.64(H) 0.70 - 1.20 mg/dL 01/21/2025 8:03 PM EDT [facility] BUN/Creatinine Ratio 19 01/21/2025 8:03 PM EDT [facility] Sodium, Plasma 139 136 - 145 mmol/L 01/21/2025 8:03 PM EDT [facility] Potassium, Plasma 4.6 3.6 - 4.9 mmol/L 01/21/2025 8:03 PM EDT [facility] Chloride, Plasma 101 97 - 107 mmol/L 01/21/2025 8:03 PM EDT [facility] CO2, Plasma 26 22 - 29 mmol/L 01/21/2025 8:03 PM EDT [facility] Anion Gap 12 6 - 16 mmol/L 01/21/2025 8:03 PM EDT [facility] Total Calcium, Plasma 9.1 8.9 - 10.2 mg/dL 01/21/2025 8:03 PM EDT [facility] eGFRcr 55.6 mL/min/1.7 3m*2 01/21/2025 8:03 PM EDT [facility] Comment:Reported eGFRcr in m L/min/1.73m2 is based the CKD-EPI 2020 equation that does not use a race coefficient. Blood Venous blood specimen / Unknown Venipuncture / Unknown 01/21/2025 7:29 PM EDT 01/21/2025 7:35 PM EDT Sachin Garza MD LAB BLOOD ORDERABLES Final R esult [facility] [address] [place] [address] * PICC SINGLE LUMEN (SMARTFORM LINK) (01/21/2025 7:01 PM EDT) Narrative Norma Miranda RN - 01/21/2025 7:01 PM EDT Norma Miranda RN 01/21/2025 7:19 PM Insert PICC line Date/Time: 01/21/2025 7:01 PM Performed by: Norma Miranda RN Authorized by: Sachin Garza MD [place] Protocol: Verbal consent obtained?: Yes Written consent [...] preference Patient position: Supine Catheter Lot #: [id number] Catheter 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 crop 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 livestock farmer: Bard PowerPICC Solo Catheter placed: Single lumen [...] at day 4 2024 7:15 AM EDT [facility] Gram Stain Result No polymorphonuclear leukocytes seen 01/25/2025 7:15 AM EDT [facility] Gram Stain Result No organisms seen 01/25/2025 7:15 AM EDT [facility] Swab Structure of left knee region / Unknown 01/20/2025 10:42 AM EDT 01/20/2025 11:25 AM EDT Comment:Pre-op diagnosis: Closed fracture of left tibial plateau with routine healing, subsequent encounter [S82.153D] Bob Nava MD LAB MICROBIOLOGY - GENERAL O RDERABLES Final Result Performing Organization Address [facility] Co de Phone Number [facility] [address] [place] [address] * Fungal Culture, Routine (01/20/2025 10:42 AM EDT) Culture No Fungal Growth at 1 Week 01/28/2025 7:34 AM EDT [facility] Swab Structure of left knee region / Unknown 01/20/2025 10:42 AM EDT 01/20/2025 11:25 AM EDT Comment:Pre-op diagnosis: Closed fracture of left tibial plateau with routine healing, subsequent encounter [A82.574D] us Bob Nava MD LAB MICROBIOLOGY - GENERAL O RDERABLES Final Result Performing Organization Address City/[facility]/ZIP Co de Phone Number [facility] [address] [place] [address] * Anaerobic Culture (01/20/2025 10:42 AM EDT) Culture No growth at day 4 01/28/2025 7:09 AM EDT [facility] Swab Structure of left knee region / Unknown 01/20/2025 10:42 AM EDT 01/20/2025 11:25 AM EDT Comment:Pre-op diagnosis: Closed fracture of left tibial plateau with routine healing, subsequent encounter [S82.142D] us Bob Nava MD LAB MICROBIOLOGY - GENERAL [place] [address] * Fungal Culture, Tissue and SYEDA (01/20/2025 10:30 AM EDT) Culture Reading Mycological 4 Weeks No Fungal Growth at 4 Weeks 02/18/2025 6:03 AM EDT [facility] SYEDA No fungal elements seen 02/18/2025 6:03 AM EDT [facility] Tissue Structure of left knee region / Unknown 01/20/2025 10:30 AM EDT 01/20/2025 11:23 AM EDT Comment:Pre-op diagnosis: Closed fracture of left tibial plateau with routine healing, subsequent encounter [S82.142D] us Bob Nava MD LAB MICROBIOLOGY - GENERAL O RDERABLES Final Result [facility] [address] [place] [address] * AFB Culture, Non Respiratory Source and Acid Fast Stain (01/20/2025 10:30 AM EDT) AFB Culture No Mycobacterial Growth at 6 Weeks 03/04/2025 4:02 PM EDT [facility] Acid Fast Stain No acid fast bacilli seen 03/04/2025 4:02 PM EDT [facility] Tissue Structure of left knee region / Unknown 01/20/2025 10:30 AM EDT 01/20/2025 11:23 AM EDT Comment:Pre-op diagnosis: Closed fracture of left tibial plateau with routine healing, subsequent encounter [S82.142D] us Bob Nava MD LAB MICROBIOLOGY - GENERAL O RDERABLES Final Result Performing Organization Address City/[facility]/ZIP Co de Phone Number [facility] [address] [place] [address] * Tissue Culture and Gram Stain (01/20/2025 10:30 AM EDT) Culture No growth at day 4 2024 7:15 AM EDT [facility] Gram Stain Result No polymorphonuclear leukocytes seen 01/25/2025 7:15 AM EDT [facility] Gram Stain Result No organisms seen 01/25/2025 7:15 AM EDT [facility] Tissue Structure of left knee region / Unknown 01/20/2025 10:30 AM EDT 01/20/2025 11:23 AM EDT Comment:Pre-op diagnosis: Closed fracture of left tibial plateau with routine healing, subsequent encounter [S82.142D] us Bob Nava MD LAB MICROBIOLOGY - GENERAL O RDERABLES Final Result Performing Organization Address [facility] Co de Phone Number [facility] [address] [place] [address] * Anaerobic Culture (01/20/2025 10:30 AM EDT) Culture No growth at day 4 01/28/2025 7:09 AM EDT [facility] Tissue Structure of left knee region / Unknown 01/20/2025 10:30 AM EDT 01/20/2025 11:23 AM EDT Comment:Pre-op diagnosis: Closed fracture of left tibial plateau with routine healing, subsequent encounter [S82.142D] us Bob Nava MD LAB MICROBIOLOGY - GENERAL O RDERABLES Final Result Performing Organization Address City/[facility]/ZIP Co de Phone Number [facility] [address] [place] [address] * Fungal Culture, Tissue and SYEDA (01/20/2025 10:27 AM EDT) Culture Reading Mycological 4 Weeks No Fungal Growth at 4 Weeks 02/18/2025 6:03 AM EDT [facility] SYEDA No fungal elements seen 02/18/2025 6:03 AM EDT [facility] Tissue Structure of left knee region / Unknown 01/20/2025 10:27 AM EDT 01/20/2025 11:24 AM EDT Comment:Pre-op diagnosis: Closed fracture of left tibial plateau with routine healing, subsequent encounter [S82.142D] us Bob Nava MD LAB MICROBIOLOGY - GENERAL O RDERABLES Final Result Performing Organization Address City/[facility]/ZIP Co de Phone Number [facility] [address] [place] [address] * AFB Culture, Non Respiratory Source and Acid Fast Stain (01/20/2025 10:27 AM EDT) AFB Culture No Mycobacterial Growth at 6 Weeks 03/04/2025 4:15 PM EDT [facility] Acid Fast Stain No acid fast bacilli seen 03/04/2025 4:15 PM EDT [facility] Tissue Structure of left knee region / Unknown 01/20/2025 10:27 AM EDT 01/20/2025 11:24 AM EDT Comment:Pre-op diagnosis: Closed fracture of left tibial plateau with routine healing, subsequent encounter [S82.142D] us Bob Nava MD LAB MICROBIOLOGY - GENERAL O RDERABLES Final Result [facility] [address] [place] [address] * Tissue Culture and Gram Stain (01/20/2025 10:27 AM EDT) Culture No growth at day 4 2024 7:15 AM EDT [facility] Gram Stain Result No organisms seen 01/25/2025 7:15 AM EDT [facility] Gram Stain Result No polymorphonuclear leukocytes seen 01/25/2025 7:15 AM EDT [facility] Tissue Structure of left knee region / Unknown 01/20/2025 10:27 AM EDT 01/20/2025 11:24 AM EDT Comment:Pre-op diagnosis: Closed fracture of left tibial plateau with routine healing, subsequent encounter [S82.142D] Bob Nava MD LAB MICROBIOLOGY - GENERAL O RDERABLES Final Result Performing Organization Address City/[facility] Co de Phone Number [facility] [address] [place] [address] * Anaerobic Culture (01/20/2025 10:27 AM EDT) Culture No growth at day 4 01/28/2025 7:09 AM EDT [facility] Tissue Structure of left knee region / Unknown 01/20/2025 10:27 AM EDT 01/20/2025 11:24 AM EDT Comment:Pre-op diagnosis: Closed fracture of left tibial plateau with routine healing, subsequent encounter [S82.142D] us Bob Nava MD LAB MICROBIOLOGY - GENERAL O RDERABLES Final Result Performing Organization Address [facility] [place] [address] * (ABNORMAL) Creatine Kinase (CK), Total (01/20/2025 3:40 AM EDT) Creatine Kinase, Plasma 18(L) 49 - 320 U/L 01/21/2025 12:17 PM EDT [facility] Blood Venous blood specimen / Unknown Venipuncture / Unknown 01/20/2025 3:40 AM EDT 01/20/2025 3:57 AM EDT Sachin Garza MD LAB BLOOD ORDERABLES Final R esult Performing Organization Address [facility] [place] [address] * Vancomycin, random (01/20/2025 3:40 AM EDT) Vancomycin, Random, Plasma 20.1 ug/mL 01/20/2025 4:51 AM EDT [facility] Blood Venous blood specimen / Unknown Venipuncture / Unknown 01/20/2025 3:40 AM EDT 01/20/2025 3:57 AM EDT us Sachin Garza MD LAB BLOOD ORDERABLES Final R esult Performing Organization Address City/[facility] Co de Phone Number [facility] [address] [place] [address] * Protime-INR (01/20/2025 3:40 AM EDT) Prothrombin Time 13.5 12.0 - 14.3 sec LAB COAGULATION METHOD 01/20/2025 4:17 AM EDT [facility] INR 1.0 0.9 - 1.1 LAB COAGULATION METHOD 01/20/2025 4:17 AM EDT [facility] Blood Venous blood specimen / Unknown Venipuncture / Unknown 01/20/2025 3:40 AM EDT 01/20/2025 3:56 AM EDT Narrative [facility] - 01/20/2025 4:17 AM EDT OPTIMAL INR RANGES FOR PATIENT ON ORAL ANTICOAGULANT THERAPY Prevention of venous thromboembolism INR 2.0 to 3.0 In patients with heart disease: Atrial fibrillation INR 2.0 to 3.0 Valvular heart disease INR 2.0 to 3.0 Tissue heart valves INR 2.0 to 3.0 Mechanical prosthetic valves INR 2.5 to 3.5 Prevention of recurrent MA INR 2.5 to 3.5 us Sachin Garza MD LAB BLOOD ORDERABLES Final R esult Performing Organization Address City/[facility]/ZIP Co de Phone Number [facility] [address] [place] [address] * (ABNORMAL) Basic metabolic panel (01/20/2025 3:40 AM EDT) Glucose, Plasma 87 74 - 99 mg/dL 01/20/2025 4:51 AM EDT [facility] BUN, Plasma 30(H) 7 - 21 mg/dL 01/20/2025 4:51 AM EDT [facility] Creatinine, Plasma 1.59(H) 0.70 - 1.20 mg/dL 01/20/2025 4:51 AM EDT [facility] BUN/Creatinine Ratio 19 01/20/2025 4:51 AM EDT [facility] Sodium, Plasma 142 136 - 145 mmol/L 01/20/2025 4:51 AM EDT [facility] Potassium, Plasma 4.7 3.6 - 4.9 mmol/L 01/20/2025 4:51 AM EDT [facility] Chloride, Plasma 104 97 - 107 mmol/L 01/20/2025 4:51 AM EDT [facility] CO2, Plasma 26 22 - 29 mmol/L 01/20/2025 4:51 AM EDT [facility] Anion Gap 12 6 - 16 mmol/L 01/20/2025 4:51 AM EDT [facility] Total Calcium, Plasma 8.9 8.9 - 10.2 mg/dL 01/20/2025 4:51 AM EDT [facility] eGFRcr 57.7 mL/min/1.7 3m*2 01/20/2025 4:51 AM EDT [facility] Comment:Reported eGFRcr in m L/min/1.73m2 is based the CKD-EPI 2020 equation that does not use a race coefficient. Blood Venous blood specimen / Unknown Venipuncture / Unknown 01/20/2025 3:40 AM EDT 01/20/2025 3:57 AM EDT us Sachin Garza MD LAB BLOOD ORDERABLES Final R esult [facility] [address] [place] [address] * (ABNORMAL) CBC W/O Differential (01/20/2025 3:40 AM EDT) WBC Count 8.11 3.70 - 10.30 10*3/uL LAB HEMATOLOGY METHOD 01/20/2025 4:04 AM EDT [facility] RBC Count 3.64(L) 4.60 - 6.10 10*6/uL LAB HEMATOLOGY METHOD 01/20/2025 4:04 AM EDT [facility] HGB 10.7(L) 13.7 - 17.5 g/dL LAB HEMATOLOGY METHOD 01/20/2025 4:04 AM EDT [facility] HCT 34.5(L) 40.0 - 51.0 % LAB HEMATOLOGY METHOD 01/20/2025 4:04 AM EDT [facility] Platelet Count 399(H) 155 - 369 10*3/uL LAB HEMATOLOGY METHOD 01/20/2025 4:04 AM EDT [facility] MCV 95 79 - 98 fL LAB HEMATOLOGY METHOD 01/20/2025 4:04 AM EDT [facility] MCH 29.4 26.0 - 32.0 pg LAB HEMATOLOGY METHOD 01/20/2025 4:04 AM EDT [facility] MCHC 31.0 30.7 - 35.5 g/dL LAB HEMATOLOGY METHOD 01/20/2025 4:04 AM EDT [facility] RDW 13.1 11.5 - 14.5 % LAB HEMATOLOGY METHOD 01/20/2025 4:04 AM EDT [facility] MPV 9.5 8.8 - 12.5 fL LAB HEMATOLOGY METHOD 01/20/2025 4:04 AM EDT [facility] nRBC 0.0 <=0.0 per 100 WBCs LAB HEMATOLOGY METHOD 01/20/2025 4:04 AM EDT [facility] Blood Venous blood specimen / Unknown Venipuncture / Unknown 01/20/2025 3:40 AM EDT 01/20/2025 3:56 AM EDT us Sachin Garza MD LAB BLOOD ORDERABLES Final R esult [facility] [address] [place] [address] * Vancomycin, random (01/19/2025 11:48 AM EDT) Vancomycin, Random, Plasma 22.9 ug/mL 01/19/2025 1:05 PM EDT [facility] Blood Venous blood specimen / Unknown Venipuncture / Unknown 01/19/2025 11:48 AM EDT 01/19/2025 11:50 AM EDT us Sachin Garza MD LAB BLOOD ORDERABLES Final R esult [facility] [address] [place] [address] * (ABNORMAL) Basic Metabolic Panel, Plasma (01/18/2025 11:54 PM EDT) Glucose, Plasma 134(H) 74 - 99 mg/dL 01/19/2025 12:45 AM EDT [facility] BUN, Plasma 24(H) 7 - 21 mg/dL 01/19/2025 12:45 AM EDT [facility] Creatinine, Plasma 1.34(H) 0.70 - 1.20 mg/dL 01/19/2025 12:45 AM EDT [facility] BUN/Creatinine Ratio 18 01/19/2025 12:45 AM EDT [facility] Sodium, Plasma 137 136 - 145 mmol/L 01/19/2025 12:45 AM EDT [facility] Potassium, Plasma 4.7 3.6 - 4.9 mmol/L 01/19/2025 12:45 AM EDT [facility] Chloride, Plasma 100 97 - 107 mmol/L 01/19/2025 12:45 AM EDT [facility] CO2, Plasma 24 22 - 29 mmol/L 01/19/2025 12:45 AM EDT [facility] Anion Gap 13 6 - 16 mmol/L 01/19/2025 12:45 AM EDT [facility] Total Calcium, Plasma 9.3 8.9 - 10.2 mg/dL 01/19/2025 12:45 AM EDT [facility] eGFRcr 70.8 mL/min/1.7 3m*2 01/19/2025 12:45 AM EDT [facility] Comment:Reported eGFRcr in m L/min/1.73m2 is based the CKD-EPI 2020 equation that does not use a race coefficient. Blood Venous blood specimen / Unknown Venipuncture / Unknown 01/18/2025 11:54 PM EDT 01/19/2025 12:16 AM EDT us Sachin Garza MD LAB BLOOD ORDERABLES Final R esult [facility] [address] [place] [address] * (ABNORMAL) CBC W/O Differential (01/18/2025 11:54 PM EDT) WBC Count 11.85(H) 3.70 - 10.30 10*3/uL LAB HEMATOLOGY METHOD 01/19/2025 12:20 AM EDT [facility] RBC Count 3.76(L) 4.60 - 6.10 10*6/uL LAB HEMATOLOGY METHOD 01/19/2025 12:20 AM EDT [facility] HGB 11.3(L) 13.7 - 17.5 g/dL LAB HEMATOLOGY METHOD 01/19/2025 12:20 AM EDT [facility] HCT 34.2(L) 40.0 - 51.0 % LAB HEMATOLOGY METHOD 01/19/2025 12:20 AM EDT [facility] Platelet Count 394(H) 155 - 369 10*3/uL LAB HEMATOLOGY METHOD 01/19/2025 12:20 AM EDT [facility] MCV 91 79 - 98 fL LAB HEMATOLOGY METHOD 01/19/2025 12:20 AM EDT [facility] MCH 30.1 26.0 - 32.0 pg LAB HEMATOLOGY METHOD 01/19/2025 12:20 AM EDT [facility] MCHC 33.0 30.7 - 35.5 g/dL LAB HEMATOLOGY METHOD 01/19/2025 12:20 AM EDT [facility] RDW 12.9 11.5 - 14.5 % LAB HEMATOLOGY METHOD 01/19/2025 12:20 AM EDT [facility] MPV 9.5 8.8 - 12.5 fL LAB HEMATOLOGY METHOD 01/19/2025 12:20 AM EDT [facility] nRBC 0.0 <=0.0 per 100 WBCs LAB HEMATOLOGY METHOD 01/19/2025 12:20 AM EDT [facility] Blood Venous blood specimen / Unknown Venipuncture / Unknown 01/18/2025 11:54 PM EDT 01/19/2025 12:13 AM EDT Sachin Garza MD LAB BLOOD ORDERABLES Final R esult Performing Organization Address City/[facility]/ZIP Co de Phone Number [facility] [address] [place] [address] * AFB Culture, Non Respiratory Source and Acid Fast Stain (01/18/2025 3:28 PM EDT) AFB Culture No Mycobacterial Growth at 6 Weeks 03/02/2025 8:42 AM EDT [facility] Acid Fast Stain No acid fast bacilli seen 03/02/2025 8:42 AM EDT [facility] Joint Fluid Topography unknown / Unknown Non-blood Collection / Unknown 01/18/2025 3:28 PM EDT 01/18/2025 3:28 PM EDT Sachin Garza MD LAB MICROBIOLOGY - GENERAL O RDERABLES Final Result Performing Organization Address [facility] Co de Phone Number [facility] [address] [place] [address] * Fungal Culture, Sterile Body Fluid (NOT CSF) and SYEDA (01/18/2025 3:28 PM EDT) Culture No Fungal Growth at 3 Weeks 02/10/2025 8:37 AM EDT [facility] SYEDA No fungal elements seen 02/10/2025 8:37 AM EDT [facility] Joint Fluid Topography unknown / Unknown Non-blood Collection / Unknown 01/18/2025 3:28 PM EDT 01/18/2025 3:28 PM EDT Sachin Garza MD LAB MICROBIOLOGY - GENERAL O RDERABLES Final Result Performing Organization Address City/[facility]/ZIP Co de Phone Number [facility] [address] [place] [address] * Anaerobic Culture (01/18/2025 3:28 PM EDT) Culture No anaerobes isolated 01/23/2025 7:50 AM EDT [facility] Joint Fluid Topography unknown / Unknown Non-blood Collection / Unknown 01/18/2025 3:28 PM EDT 01/18/2025 3:28 PM EDT us Sachin Garza MD LAB MICROBIOLOGY - GENERAL O RDERABLES Final Result Performing Organization Address [facility] Co de Phone Number [facility] [address] [place] [address] * (ABNORMAL) Body Fluid Culture and Gram Stain (01/18/2025 3:28 PM EDT) Culture Heavy Growth 01/20/2025 8:34 AM EDT [facility] Culture Methicillin-Resista nt Staphylococcus aureus(AA) 01/20/2025 8:34 AM EDT [facility] Comment: For susceptibility results refer to: - [id number] The organism value for this result has been updated. These results have been appended to the previously preliminary verified report. Edited result: Previously reported as Staphylococcus aureus on 01/19/2025 at 0933 EDT. Staphylococcus aureus has been updated to reportable. Gram Stain Result Numerous Polymorphonuclear leukocytes 01/20/2025 8:34 AM EDT [facility] Gram Stain Result No organisms seen 01/20/2025 8:34 AM EDT [facility] Joint Fluid Topography unknown / Unknown Non-blood Collection / Unknown 01/18/2025 3:28 PM EDT 01/18/2025 3:28 PM EDT us Sachin Garza MD LAB MICROBIOLOGY - GENERAL O RDERABLES Final Result Performing Organization Address City/[facility]/ZIP Co de Phone Number [facility] [address] [place] [address] * Body fluid, cytospin, pathologist interpretation (01/18/2025 3:01 PM EDT) Specimen Type Joint Fluid LAB HEMATOLOGY METHOD 01/20/2025 4:29 PM EDT [facility] Specimen Source, Body Fluid Knee, Left LAB HEMATOLOGY METHOD 01/20/2025 4:29 PM EDT [facility] Clinical Diagnosis, Body Fluid Left lower extremity cellulitis LAB HEMATOLOGY METHOD 01/20/2025 4:29 PM EDT [facility] Interpretation , Body Fluid Bloody specimen Acute and chronic inflammatory cells Correlation with microbiology studies recommended A resident was involved in the service. I attest I examined the relevant preparations for the specimens and confirmed the diagnosis or interpretation. 01/20/2025 4:29 PM EDT [facility] Pathologist Signature, Body Fluid 01/20/2025 4:29 PM EDT [facility] Comment:Reviewed by: Stephanie conti MD LAB CP ASR DISCLAIMER Yes 01/20/2025 4:29 PM EDT [facility] Joint Fluid Structure of left knee region / Unknown 01/18/2025 3:01 PM EDT 01/18/2025 3:28 PM EDT us Sachin Garza MD LAB BODY FLUIDS AND STOOLS O RDERABLES Final Result Performing Organization Address City/[facility]/ZIP Co de Phone Number [facility] [address] [place] [address] * Joint Fluid Crystals (01/18/2025 3:01 PM EDT) Crystals, Joint Fluid No Crystals Seen No Crystals Present 01/18/2025 5:28 PM EDT [facility] Joint Fluid Structure of left knee region / Unknown 01/18/2025 3:01 PM EDT 01/18/2025 3:28 PM EDT us Sachin Garza MD LAB BODY FLUIDS AND STOOLS O RDERABLES Final Result Performing Organization Address City/[facility]/ZIP Co de Phone Number [facility] [address] [place] [address] * (ABNORMAL) Body Fluid Cell Count w/ Diff (01/18/2025 3:01 PM EDT) Color, Body fluid Red LAB HEMATOLOGY METHOD 01/18/2025 11:05 PM EDT [facility] Appearance, Body fluid Cloudy(A) LAB HEMATOLOGY METHOD 01/18/2025 11:05 PM EDT [facility] Volume, Body fluid 3.5 cc LAB HEMATOLOGY METHOD 01/18/2025 11:05 PM EDT [facility] Fluid Container Specimen received in EDTA tube LAB HEMATOLOGY METHOD 01/18/2025 11:05 PM EDT [facility] Red Blood Cell Count, Body fluid 299,000 uL LAB HEMATOLOGY METHOD 01/18/2025 11:05 PM EDT [facility] Total Nucleated Cell Count, Body fluid 873 uL LAB HEMATOLOGY METHOD 01/18/2025 11:05 PM EDT [facility] Neutrophils %, Body fluid 17 % LAB HEMATOLOGY METHOD 01/18/2025 11:05 PM EDT [facility] Lymphocytes %, Body fluid 55 % LAB HEMATOLOGY METHOD 01/18/2025 11:05 PM EDT [facility] Monocytes/Macro phages %, Body fluid 27 % LAB HEMATOLOGY METHOD 01/18/2025 11:05 PM EDT [facility] Eosinophils %, Body fluid 1 % LAB HEMATOLOGY METHOD 01/18/2025 11:05 PM EDT [facility] Lining/Mesothel ial Cells %, Body fluid 0 % LAB HEMATOLOGY METHOD 01/18/2025 11:05 PM EDT [facility] Neutrophils Absolute (PMN), Body fluid 148 uL LAB HEMATOLOGY METHOD 01/18/2025 11:05 PM EDT [facility] Lymphocytes Absolute, Body fluid 480 uL LAB HEMATOLOGY METHOD 01/18/2025 11:05 PM EDT [facility] Monocytes/Macro phages Absolute, Body fluid 236 uL LAB HEMATOLOGY METHOD 01/18/2025 11:05 PM EDT [facility] Eosinophils Absolute, Body fluid 9 uL LAB HEMATOLOGY METHOD 01/18/2025 11:05 PM EDT [facility] Basophils Absolute, Body fluid 0 uL LAB HEMATOLOGY METHOD 01/18/2025 11:05 PM EDT [facility] Lining/Mesothel ial Cells Absolute, Body fluid 0 uL LAB HEMATOLOGY METHOD 01/18/2025 11:05 PM EDT [facility] Comment, Body fluid None LAB HEMATOLOGY METHOD 01/18/2025 11:05 PM EDT [facility] Comment:This is an appended report. These results have been appended to a previously preliminary verified report. Basophils %, Body fluid 0 % LAB HEMATOLOGY METHOD 01/18/2025 11:05 PM EDT [facility] Joint Fluid Structure of left knee region / Unknown 01/18/2025 3:01 PM EDT 01/18/2025 3:28 PM EDT Sachin Garza MD LAB BODY FLUIDS AND STOOLS ORDERABLES NO SPECIMEN TYPE/SOURCE Final Result Performing Organization Address [facility] Co de Phone Number [facility] [address] [place] [address] * Body Fluid Culture and Gram Stain (01/18/2025 12:17 PM EDT) Culture No growth at day 4 2024 11:06 AM EDT [facility] Gram Stain Result No polymorphonuclear leukocytes seen 01/21/2025 11:06 AM EDT [facility] Gram Stain Result No organisms seen 01/21/2025 11:06 AM EDT [facility] Joint Fluid Synovial fluid specimen / Unknown Non-blood Collection / Unknown 01/18/2025 12:17 PM EDT 01/18/2025 3:24 PM EDT Comment:Pre-op diagnosis: Cellulitis of left lower extremity [L03.116] Dwaine Das DO LAB MICROBIOLOGY - GENERAL ORDERABLES Final Result Performing Organization Address [facility] Co de Phone Number [facility] [address] [place] [address] * Joint Infection Panel by PCR (01/18/2025 12:17 PM EDT) Anaerococcus prevotii/vaginalis PCR Result Not Detected Not Detected 01/18/2025 5:28 PM EDT [facility] Clostridium perfringens PCR Result Not Detected Not Detected 01/18/2025 5:28 PM EDT [facility] Cutibacterium avidum/granulosum PCR Result Not Detected Not Detected 01/18/2025 5:28 PM EDT [facility] Enterococcus faecalis PCR Result Not Detected Not Detected 01/18/2025 5:[address] [facility] Enterococcus faecium PCR Result Not Detected Not Detected 01/18/2025 5:28 PM EDT [facility] Finegoldia magna PCR Result Not Detected Not Detected 01/18/2025 5:28 PM EDT [facility] Parvimonas micra PCR Result Not Detected Not Detected 01/18/2025 5:28 PM EDT [facility] Peptoniphilus PCR Result Not Detected Not Detected 01/18/2025 5:28 PM EDT [facility] Peptostreptococcus anaerobius PCR Result Not Detected Not Detected 01/18/2025 5:28 PM EDT [facility] Staphylococcus aureus PCR Result Not Detected Not Detected 01/18/2025 5:28 PM EDT [facility] Staphylococcus lugdunensis PCR Result Not Detected Not Detected 01/18/2025 5:28 PM EDT [facility] Streptococcus spp PCR Result Not Detected Not Detected 01/18/2025 5:28 PM EDT [facility] Streptococcus agalactiae PCR Result Not Detected Not Detected 01/18/2025 5:28 PM EDT [facility] Streptococcus pneumoniae PCR Result Not Detected Not Detected 01/18/2025 5:28 PM EDT [facility] Streptococcus pyogenes PCR Result Not Detected Not Detected 01/18/2025 5:28 PM EDT [facility] Bacteroides fragilis PCR Result Not Detected Not Detected 01/18/2025 5:28 PM EDT [facility] Citrobacter PCR Result Not Detected Not Detected 01/18/2025 5:28 PM EDT [facility] Enterobacter cloacae complex PCR Result Not Detected Not Detected 01/18/2025 5:28 PM EDT [facility] Escherichia coli PCR Result Not Detected Not Detected 01/18/2025 5:28 PM EDT [facility] Haemophilus influenzae PCR Result Not Detected Not Detected 01/18/2025 5:28 PM EDT [facility] Kingella kingae PCR Result Not Detected Not Detected 01/18/2025 5:28 PM EDT [facility] Klebsiella aerogenes PCR Result Not Detected Not Detected 01/18/2025 5:28 PM EDT [facility] Klebsiella pneumoniae group PCR Result Not Detected Not Detected 01/18/2025 5:28 PM EDT [facility] Morganella morganii PCR Result Not Detected Not Detected 01/18/2025 5:28 PM EDT [facility] Neisseria gonorrhoeae PCR Result Not Detected Not Detected 01/18/2025 5:28 PM EDT [facility] Proteus spp PCR Result Not Detected Not Detected 01/18/2025 5:28 PM EDT [facility] Pseudomonas aeruginosa PCR Result Not Detected Not Detected 01/18/2025 5:28 PM EDT [facility] Salmonella spp PCR Result Not Detected Not Detected 01/18/2025 5:28 PM EDT [facility] Serratia marcescens PCR Result Not Detected Not Detected 01/18/2025 5:28 PM EDT [facility] Nelda PCR Result Not Detected Not Detected 01/18/2025 5:28 PM EDT [facility] Nelda albicans PCR Result Not Detected Not Detected 01/18/2025 5:28 PM EDT [facility] CTXM PCR Result Not Detected Not Detected 01/18/2025 5:28 PM EDT [facility] IMP PCR Result Not Detected Not Detected 01/18/2025 5:28 PM EDT [facility] KPC PCR Result Not Detected Not Detected 01/18/2025 5:28 PM EDT [facility] mecA/C and MREJ (MRSA) PCR Result Not Detected Not Detected 01/18/2025 5:28 PM EDT [facility] NDM PCR Result Not Detected Not Detected 01/18/2025 5:28 PM EDT [facility] OXA-48-like PCR Result Not Detected Not Detected 01/18/2025 5:28 PM EDT [facility] Jarret/B PCR Result Not Detected Not Detected 01/18/2025 5:28 PM EDT [facility] VIM PCR Result Not Detected Not Detected 01/18/2025 5:28 PM EDT [facility] Joint Fluid Synovial fluid specimen / Unknown Non-blood Collection / Unknown 01/18/2025 12:17 PM EDT 01/18/2025 3:24 PM EDT Narrative [facility] - 01/18/2025 5:28 PM EDT [...] MICROBIOLOGY - GENERAL O RDERABLES Final Result [facility] [address] [place] [address] * Fungal Culture, Tissue and SYEDA (01/18/2025 10:00 AM EDT) Culture Reading Mycological 4 Weeks No Fungal Growth at 4 Weeks 02/16/2025 8:50 AM EDT [facility] SYEDA No fungal elements seen 02/16/2025 8:50 AM EDT [facility] Tissue Topography unknown / Unknown 01/18/2025 10:00 AM EDT 01/18/2025 3:26 PM EDT Comment:Pre-op diagnosis: Cellulitis of left lower extremity [L03.116] [facility] MI[facility]OLOG[facility] - GENERAL ORDERABLES Final Result Performing Organization Address City/[facility] Co de Phone Number [facility] [address] [place] [address] * AFB Culture, Non Respiratory Source and Acid Fast Stain (01/18/2025 10:00 AM EDT) AFB Culture No Mycobacterial Growth at 6 Weeks 03/02/2025 8:38 AM EDT [facility] Acid Fast Stain No acid fast bacilli seen 03/02/2025 8:38 AM EDT [facility] Tissue Topography unknown / Unknown 01/18/2025 10:00 AM EDT 01/18/2025 3:26 PM EDT Comment:Pre-op diagnosis: Cellulitis of left lower extremity [L03.116] [facility] MICROBIOLOGY - GENERAL ORDERABLES Final Result Performing Organization Address [facility] de Phone Number [facility] [address] [place] [address] * (ABNORMAL) Tissue Culture and Gram Stain (01/18/2025 10:00 AM EDT) Culture Heavy Growth 01/20/2025 8:34 AM EDT [facility] Culture Methicillin-Resista nt Staphylococcus aureus(AA) JOVANI 01/20/2025 8:34 AM EDT [facility] Comment: The organism value for this result has been updated. These results have been appended to the previously preliminary verified report. Edited result: Previously reported as Staphylococcus aureus on 01/19/2025 at 0914 EDT. Staphylococcus aureus has been updated to reportable. Gram Stain Result Numerous Polymorphonuclear leukocytes(A) 01/20/2025 8:34 AM EDT [facility] Gram Stain Result Rare Gram positive cocci in clusters(A) 01/20/2025 8:34 AM EDT [facility] Tissue Topography unknown / Unknown [...] Staphylococcus aureus Vancomycin JOVANI 1 ug/ml: Susceptible [facility] MI[facility] - GENERAL ORDERABLES Final Result [facility] [address] [place] [address] * Anaerobic Culture (01/18/2025 10:00 AM EDT) Culture No anaerobes isolated 01/23/2025 7:50 AM EDT [facility] Tissue Topography unknown / Unknown 01/18/2025 10:00 AM EDT 01/18/2025 3:26 PM EDT Comment:Pre-op diagnosis: Cellulitis of left lower extremity [L03.116] [facility] LAB MICROBIOLOGY - GENERAL ORDERABLES Final Result [facility] [address] [place] [address] * Body fluid, cytospin, pathologist interpretation (01/18/2025 9:57 AM EDT) Specimen Type Cyst Fluid LAB HEMATOLOGY METHOD 01/20/2025 4:28 PM EDT [facility] Specimen Source, Body Fluid Other (specify site) LAB HEMATOLOGY METHOD 01/20/2025 4:28 PM EDT [facility] Clinical Diagnosis, Body Fluid Left lower extremity cyst fluid LAB HEMATOLOGY METHOD 01/20/2025 4:28 PM EDT [facility] Interpretation , Body Fluid No evidence of malignancy Bloody specimen Acute inflammatory cells Correlation with microbiology studies recommended A resident was involved in the service. I attest I examined the relevant preparations for the specimens and confirmed the diagnosis or interpretation. 01/20/2025 4:28 PM EDT [facility] Pathologist Signature, Body Fluid 01/20/2025 4:28 PM EDT [facility] Comment:Reviewed by: Stephanie conti MD LAB CP ASR DISCLAIMER Yes 01/20/2025 4:28 PM EDT [facility] Cyst Fluid Topography unknown / Unknown 01/18/2025 9:57 AM EDT 01/18/2025 3:19 PM EDT Dwaine Das DO LAB BODY FLUIDS AND STOOLS ORDERABLES Final Result [facility] [address] [place] [address] * (ABNORMAL) Body Fluid Cell Count w/ Diff (01/18/2025 9:57 AM EDT) Color, Body fluid Red LAB HEMATOLOGY METHOD 01/18/2025 7:13 PM EDT [facility] Appearance, Body fluid Cloudy(A) LAB HEMATOLOGY METHOD 01/18/2025 7:13 PM EDT [facility] Volume, Body fluid 10.0 cc LAB HEMATOLOGY METHOD 01/18/2025 7:13 PM EDT [facility] Fluid Container Specimen received in miscellaneous container LAB HEMATOLOGY METHOD 01/18/2025 7:13 PM EDT [facility] Red Blood Cell Count, Body fluid 240,000 uL LAB HEMATOLOGY METHOD 01/18/2025 7:13 PM EDT [facility] Comment:Clot present, may af fect results. Test performed by manual method. Total Nucleated Cell Count, Body fluid 83,500 uL LAB HEMATOLOGY METHOD 01/18/2025 7:13 PM EDT [facility] Comment:Clot present, may af fect results. Test performed by manual method. Neutrophils %, Body fluid 98 % LAB HEMATOLOGY METHOD 01/18/2025 7:13 PM EDT [facility] Lymphocytes %, Body fluid 2 % LAB HEMATOLOGY METHOD 01/18/2025 7:13 PM EDT [facility] Monocytes/Macr ophages %, Body fluid 0 % LAB HEMATOLOGY METHOD 01/18/2025 7:13 PM EDT [facility] Eosinophils %, Body fluid 0 % LAB HEMATOLOGY METHOD 01/18/2025 7:13 PM EDT [facility] Lining/Mesothe lial Cells %, Body fluid 0 % LAB HEMATOLOGY METHOD 01/18/2025 7:13 PM EDT [facility] Neutrophils Absolute (PMN), Body fluid 81,830 uL LAB HEMATOLOGY METHOD 01/18/2025 7:13 PM EDT [facility] Lymphocytes Absolute, Body fluid 1,670 uL LAB HEMATOLOGY METHOD 01/18/2025 7:13 PM EDT [facility] Monocytes/Macr ophages Absolute, Body fluid 0 uL LAB HEMATOLOGY METHOD 01/18/2025 7:13 PM EDT [facility] Eosinophils Absolute, Body fluid 0 uL LAB HEMATOLOGY METHOD 01/18/2025 7:13 PM EDT [facility] Basophils Absolute, Body fluid 0 uL LAB HEMATOLOGY METHOD 01/18/2025 7:13 PM EDT [facility] Lining/Mesothe lial Cells Absolute, Body fluid 0 uL LAB HEMATOLOGY METHOD 01/18/2025 7:13 PM EDT [facility] Comment, Body fluid Bacteria seen. LAB HEMATOLOGY METHOD 01/18/2025 7:13 PM EDT [facility] Basophils %, Body fluid 0 % LAB HEMATOLOGY METHOD 01/18/2025 7:13 PM EDT [facility] Cyst Fluid Topography unknown / Unknown 01/18/2025 9:57 AM EDT 01/18/2025 3:19 PM EDT Comment:Pre-op diagnosis: Cellulitis of left lower extremity [L03.116] Dwaine Das DO LAB BODY FLUIDS AND STOOLS ORDERABLES NO SPECIMEN TYPE/SOURCE Final Result [facility] [address] [place] [address] * Fungal Culture, Sterile Body Fluid (NOT CSF) and SYEDA (01/18/2025 9:57 AM EDT) Culture No Fungal Growth at 3 Weeks 02/10/2025 8:37 AM EDT [facility] SYEDA No fungal elements seen 02/10/2025 8:37 AM EDT [facility] Cyst Fluid Topography unknown / Unknown 01/18/2025 9:57 AM EDT 01/18/2025 3:26 PM EDT Comment:Pre-op diagnosis: Cellulitis of left lower extremity [L03.116] [facility] MICROBIOLOGY - GENERAL ORDERABLES Final Result Performing Organization Address City/[facility]/ZIP Co de Phone Number [facility] [address] [place] [address] * AFB Culture, Non Respiratory Source and Acid Fast Stain (01/18/2025 9:57 AM EDT) AFB Culture No Mycobacterial Growth at 6 Weeks 03/02/2025 8:43 AM EDT [facility] Acid Fast Stain No acid fast bacilli seen 03/02/2025 8:43 AM EDT [facility] Cyst Fluid Topography unknown / Unknown 01/18/2025 9:57 AM EDT 01/18/2025 3:26 PM EDT Comment:Pre-op diagnosis: Cellulitis of left lower extremity [L03.116] [facility] MICROBIOLOGY - GENERAL ORDERABLES Final Result [facility] [address] [place] [address] * (ABNORMAL) Body Fluid Culture and Gram Stain (01/18/2025 9:57 AM EDT) Culture Heavy Growth 01/20/2025 8:34 AM EDT [facility] Culture Methicillin-Resista nt Staphylococcus aureus(AA) 01/20/2025 8:34 AM EDT [facility] Comment: For susceptibility results refer to: - [id number] The organism value for this result has been updated. These results have been appended to the previously preliminary verified report. Edited result: Previously reported as Staphylococcus aureus on 01/19/2025 at 0916 EDT. Staphylococcus aureus has been updated to reportable. Gram Stain Result Numerous Polymorphonuclear leukocytes(A) 01/20/2025 8:34 AM EDT [facility] Gram Stain Result Moderate Gram positive cocci in clusters(A) 01/20/2025 8:34 AM EDT [facility] Cyst Fluid Topography unknown / Unknown 01/18/2025 9:57 AM EDT 01/18/2025 3:26 PM EDT Comment:Pre-op diagnosis: Cellulitis of left lower extremity [L03.116] [facility] LAB MICROBIOLOGY - GENERAL ORDERABLES Final Result Performing Organization Address [facility] Co de Phone Number [facility] [address] [place] [address] * Anaerobic Culture (01/18/2025 9:57 AM EDT) Culture No anaerobes isolated 01/23/2025 7:50 AM EDT [facility] Cyst Fluid Topography unknown / Unknown 01/18/2025 9:57 AM EDT 01/18/2025 3:26 PM EDT Comment:Pre-op diagnosis: Cellulitis of left lower extremity [L03.116] [facility] LAB MICROBIOLOGY - GENERAL ORDERABLES Final Result Performing Organization Address City/[facility]/ZIP Co de Phone Number [facility] [address] [place] [address] * Methicillin Resistant Staphylococcus aureus (MRSA) by PCR (01/18/2025 7:43 AM EDT) Methicillin Resistant Staphylococcus aureus (MRSA) by PCR Not Detected Not Detected 01/18/2025 9:36 AM EDT [facility] Swab Both anterior nares / Unknown Non-blood Collection / Unknown 01/18/2025 7:43 AM EDT 01/18/2025 8:19 AM EDT Narrative [facility] - 01/18/2025 9:36 AM EDT [...] MICROBIOLOGY - GENERAL O RDERABLES Final Result [facility] [address] [place] [address] * (ABNORMAL) Basic metabolic panel (01/18/2025 12:18 AM EDT) Glucose, Plasma 105(H) 74 - 99 mg/dL 01/18/2025 1:30 AM EDT [facility] BUN, Plasma 14 7 - 21 mg/dL 01/18/2025 1:30 AM EDT [facility] Creatinine, Plasma 0.80 0.70 - 1.20 mg/dL 01/18/2025 1:30 AM EDT [facility] BUN/Creatinine Ratio 18 01/18/2025 1:30 AM EDT [facility] Sodium, Plasma 137 136 - 145 mmol/L 01/18/2025 1:30 AM EDT [facility] Potassium, Plasma 4.3 3.6 - 4.9 mmol/L 01/18/2025 1:30 AM EDT [facility] Chloride, Plasma 100 97 - 107 mmol/L 01/18/2025 1:30 AM EDT [facility] CO2, Plasma 26 22 - 29 mmol/L 01/18/2025 1:30 AM EDT [facility] Anion Gap 11 6 - 16 mmol/L 01/18/2025 1:30 AM EDT [facility] Total Calcium, Plasma 9.0 8.9 - 10.2 mg/dL 01/18/2025 1:30 AM EDT [facility] eGFRcr 118.4 mL/min/1.7 3m*2 01/18/2025 1:30 AM EDT [facility] Comment:Reported eGFRcr in m L/min/1.73m2 is based the CKD-EPI 2020 equation that does not use a race coefficient. Blood Venous blood specimen / Unknown Venipuncture / Unknown 01/18/2025 12:18 AM EDT 01/18/2025 12:27 AM EDT us Sachin Garza MD LAB BLOOD ORDERABLES Final R esult [facility] [address] [place] [address] * (ABNORMAL) CBC W/O Differential (01/18/2025 12:18 AM EDT) WBC Count 8.77 3.70 - 10.30 10*3/uL LAB HEMATOLOGY METHOD 01/18/2025 12:36 AM EDT [facility] RBC Count 3.94(L) 4.60 - 6.10 10*6/uL LAB HEMATOLOGY METHOD 01/18/2025 12:36 AM EDT [facility] HGB 11.7(L) 13.7 - 17.5 g/dL LAB HEMATOLOGY METHOD 01/18/2025 12:36 AM EDT [facility] HCT 37.1(L) 40.0 - 51.0 % LAB HEMATOLOGY METHOD 01/18/2025 12:36 AM EDT [facility] Platelet Count 347 155 - 369 10*3/uL LAB HEMATOLOGY METHOD 01/18/2025 12:36 AM EDT [facility] MCV 94 79 - 98 fL LAB HEMATOLOGY METHOD 01/18/2025 12:36 AM EDT [facility] MCH 29.7 26.0 - 32.0 pg LAB HEMATOLOGY METHOD 01/18/2025 12:36 AM EDT [facility] MCHC 31.5 30.7 - 35.5 g/dL LAB HEMATOLOGY METHOD 01/18/2025 12:36 AM EDT [facility] RDW 13.1 11.5 - 14.5 % LAB HEMATOLOGY METHOD 01/18/2025 12:36 AM EDT [facility] MPV 9.5 8.8 - 12.5 fL LAB HEMATOLOGY METHOD 01/18/2025 12:36 AM EDT [facility] nRBC 0.0 <=0.0 per 100 WBCs LAB HEMATOLOGY METHOD 01/18/2025 12:36 AM EDT [facility] Blood Venous blood specimen / Unknown Venipuncture / Unknown 01/18/2025 12:18 AM EDT 01/18/2025 12:29 AM EDT Sachin Garza MD LAB BLOOD ORDERABLES Final R esult Performing Organization Address [facility] Co de Phone Number [facility] [address] [place] [address] * Vancomycin, Peak, Plasma Please draw ~2 hours after 1000 dose of vancomycin on Monday finishes infusing. Consider obtaining level via peripheral stick. If peripheral stick is not feasible, please ensure that line is flushed well prior to drawing l... (01/17/2025 2:03 PM EDT) Vancomycin, Peak, Plasma 22.0 20.0 - 40.0 ug/mL 01/17/2025 3:01 PM EDT [facility] Blood Venous blood specimen / Unknown Venipuncture / Unknown 01/17/2025 2:03 PM EDT 01/17/2025 2:32 PM EDT Narrative [facility] - 01/17/2025 3:01 PM EDT Therapeutic Peak level: 20-40ug/mL Supra-therapeutic Peak level: >40 ug/mL Sachin Garza MD LAB BLOOD ORDERABLES Final R esult Performing Organization Address [facility] Co de Phone Number [facility] [address] [place] [address] * Vancomycin, Trough, Plasma Please draw ~30 minutes prior to dose due at 1000 on Monday. Please do NOT hold dose awaiting level to return. Consider obtaining level via peripheral stick. If peripheral stick is not feasible, please ensure that line ... (01/17/2025 9:53 AM EDT) Vancomycin, Trough, Plasma 12.5 10.0 - 20.0 ug/mL 01/17/2025 10:24 AM EDT [facility] Blood Venous blood specimen / Unknown Venipuncture / Unknown 01/17/2025 9:53 AM EDT 01/17/2025 9:57 AM EDT Narrative [facility] - 01/17/2025 10:24 AM EDT Therapeutic Trough level: 10-20ug/mL Supra-therapeutic Trough level: >20 ug/mL us Sachin Garza MD LAB BLOOD ORDERABLES Final R esult [facility] [address] [place] [address] * (ABNORMAL) Basic metabolic panel (01/17/2025 4:05 AM EDT) Glucose, Plasma 117(H) 74 - 99 mg/dL 01/17/2025 5:16 AM EDT [facility] BUN, Plasma 13 7 - 21 mg/dL 01/17/2025 5:16 AM EDT [facility] Creatinine, Plasma 0.75 0.70 - 1.20 mg/dL 01/17/2025 5:16 AM EDT [facility] BUN/Creatinine Ratio 17 01/17/2025 5:16 AM EDT [facility] Sodium, Plasma 135(L) 136 - 145 mmol/L 01/17/2025 5:16 AM EDT [facility] Potassium, Plasma 4.5 3.6 - 4.9 mmol/L 01/17/2025 5:16 AM EDT [facility] Chloride, Plasma 100 97 - 107 mmol/L 01/17/2025 5:16 AM EDT [facility] CO2, Plasma 25 22 - 29 mmol/L 01/17/2025 5:16 AM EDT [facility] Anion Gap 10 6 - 16 mmol/L 01/17/2025 5:16 AM EDT [facility] Total Calcium, Plasma 9.1 8.9 - 10.2 mg/dL 01/17/2025 5:16 AM EDT [facility] eGFRcr 120.7 mL/min/1.7 3m*2 01/17/2025 5:16 AM EDT [facility] Comment:Reported eGFRcr in m L/min/1.73m2 is based the CKD-EPI 2020 equation that does not use a race coefficient. Blood Venous blood specimen / Unknown Venipuncture / Unknown 01/17/2025 4:05 AM EDT 01/17/2025 4:35 AM EDT us Sachin Garza MD LAB BLOOD ORDERABLES Final R esult [facility] [address] [place] [address] * [place] Extremity Limited MSK or Soft [...] - 99 mg/dL 01/16/2025 5:15 AM EDT [facility] BUN, Plasma 12 7 - 21 mg/dL 01/16/2025 5:15 AM EDT [facility] Creatinine, Plasma 0.66(L) 0.70 - 1.20 mg/dL 01/16/2025 5:15 AM EDT [facility] BUN/Creatinine Ratio 18 01/16/2025 5:15 AM EDT [facility] Sodium, Plasma 136 136 - 145 mmol/L 01/16/2025 5:15 AM EDT [facility] Potassium, Plasma 4.5 3.6 - 4.9 mmol/L 01/16/2025 5:15 AM EDT [facility] Chloride, Plasma 100 97 - 107 mmol/L 01/16/2025 5:15 AM EDT [facility] CO2, Plasma 26 22 - 29 mmol/L 01/16/2025 5:15 AM EDT [facility] Anion Gap 10 6 - 16 mmol/L 01/16/2025 5:15 AM EDT [facility] Total Calcium, Plasma 8.8(L) 8.9 - 10.2 mg/dL 01/16/2025 5:15 AM EDT [facility] eGFRcr 125.4 mL/min/1.7 3m*2 01/16/2025 5:15 AM EDT [facility] Comment:Reported eGFRcr in m L/min/1.73m2 is based the CKD-EPI 2020 equation that does not use a race coefficient. Blood Venous blood specimen / Unknown Venipuncture / Unknown 01/16/2025 4:31 AM EDT 01/16/2025 4:46 AM EDT us Jeffrey Matute MD LAB BLOOD ORDERABLES Final Re sult Performing Organization Address City/State/[facility] Co de Phone Number [facility] [address] [place] [address] * Prothrombin Time/INR (01/16/2025 4:31 AM EDT) Prothrombin Time 12.9 12.0 - 14.3 sec 01/16/2025 4:46 AM EDT [facility] INR 1.0 0.9 - 1.1 01/16/2025 4:46 AM EDT [facility] Blood Venous blood specimen / Unknown Venipuncture / Unknown 01/16/2025 4:31 AM EDT 01/16/2025 4:33 AM EDT Narrative [facility] - 01/16/2025 4:46 AM EDT OPTIMAL INR RANGES FOR PATIENT ON ORAL ANTICOAGULANT THERAPY Prevention of venous thromboembolism INR 2.0 to 3.0 In patients with heart disease: Atrial fibrillation INR 2.0 to 3.0 Valvular heart disease INR 2.0 to 3.0 Tissue heart valves INR 2.0 to 3.0 Mechanical prosthetic valves INR 2.5 to 3.5 Prevention of recurrent MA INR 2.5 to 3.5 us Jeffrey Matute MD LAB BLOOD ORDERABLES Final Re sult [facility] [address] [place] [address] * (ABNORMAL) CBC W/O Differential (01/16/2025 4:31 AM EDT) WBC Count 17.78(H) 3.70 - 10.30 10*3/uL LAB HEMATOLOGY METHOD 01/16/2025 4:36 AM EDT [facility] RBC Count 4.14(L) 4.60 - 6.10 10*6/uL LAB HEMATOLOGY METHOD 01/16/2025 4:36 AM EDT [facility] HGB 12.4(L) 13.7 - 17.5 g/dL LAB HEMATOLOGY METHOD 01/16/2025 4:36 AM EDT [facility] HCT 37.6(L) 40.0 - 51.0 % LAB HEMATOLOGY METHOD 01/16/2025 4:36 AM EDT [facility] Platelet Count 359 155 - 369 10*3/uL LAB HEMATOLOGY METHOD 01/16/2025 4:36 AM EDT [facility] MCV 91 79 - 98 fL LAB HEMATOLOGY METHOD 01/16/2025 4:36 AM EDT [facility] MCH 30.0 26.0 - 32.0 pg LAB HEMATOLOGY METHOD 01/16/2025 4:36 AM EDT [facility] MCHC 33.0 30.7 - 35.5 g/dL LAB HEMATOLOGY METHOD 01/16/2025 4:36 AM EDT [facility] RDW 13.2 11.5 - 14.5 % LAB HEMATOLOGY METHOD 01/16/2025 4:36 AM EDT [facility] MPV 9.3 8.8 - 12.5 fL LAB HEMATOLOGY METHOD 01/16/2025 4:36 AM EDT [facility] nRBC 0.0 <=0.0 per 100 WBCs LAB HEMATOLOGY METHOD 01/16/2025 4:36 AM EDT [facility] Blood Venous blood specimen / Unknown Venipuncture / Unknown 01/16/2025 4:31 AM EDT 01/16/2025 4:33 AM EDT Jeffrey Matute MD LAB BLOOD ORDERABLES Final Re sult [facility] [address] [place] [address] * CT Tibia Fibula Left w IV [...] at day 5 01/21/2025 2:02 AM EDT [facility] Blood Venous blood specimen / Unknown Venipuncture / Unknown 01/16/2025 12:24 AM EDT 01/16/2025 1:12 AM EDT Narrative [facility] - 01/21/2025 2:02 AM EDT Low blood volume submitted, results may be compromised Gus Vigil APRN LAB MICROBIOLOGY - GENER AL ORDERABLES Final Result [facility] [address] [place] [address] * XR Chest 1 View (01/15/2025 11:21 [...] ORDERA BLES Final Result Performing Organization Address [facility] Co de Phone Number BLOOD BANK [address] [place] [address], [place] * ECG Adult (01/15/2025 10:46 PM EDT) EKG DIAGNOSIS CLASS Normal MUSE ECG Ventricular Rate 92 BPM MUSE ECG Atrial Rate 92 BPM MUSE ECG NV Interval 122 ms MUSE ECG QRSD Interval 102 ms MUSE ECG QT Interval 350 ms MUSE ECG QTC Interval 432 ms MUSE ECG P [place] 56 degrees MUSE ECG R [place] 44 degrees MUSE ECG T Wave [place] 57 degrees MUSE ECG Diagnosis Normal sinus rhythm MUSE ECG Diagnosis Normal ECG MUSE ECG Diagnosis MUSE ECG Diagnosis Confirmed by Richard Mccracken ([id number]) on 01/16/2025 8:55:10 PM MUSE ECG 01/15/2025 10:4 6 PM EDT 01/16/2025 8:55 PM EDT Ye Navarro MD ECG ORDERABLES Final Resu lt Performing Organization Address City/[facility] Co de Phone Number MUSE ECG * Blood Culture (Aerobic/Anaerobet Set) (01/15/2025 10:11 PM EDT) Culture No growth at day 5 01/20/2025 11:01 PM EDT [facility] Blood Structure of antecubital vein / Unknown Venipuncture / Unknown 01/15/2025 10:11 PM EDT 01/15/2025 10:19 PM EDT Narrative [facility] - 01/20/2025 11:01 PM EDT Low blood volume submitted, results may be compromised Gus Vigil APRN LAB MICROBIOLOGY - GENER AL ORDERABLES Final Result Performing Organization Address City/[facility]/ZIP Co de Phone Number [facility] [address] [place] [address] * (ABNORMAL) Sed rate, automated (01/15/2025 10:11 PM EDT) Pathologist [facility] [place] Sedimentation Rate 46(H) <15 mm/hr 2024 10:34 PM EDT [facility] Blood Venous blood specimen / Unknown Venipuncture / Unknown 01/15/2025 10:11 PM EDT 01/15/2025 10:12 PM EDT [facility]ger Niall [facility] LAB BLOOD ORDERABLES Fin al Result Performing Organization Address [facility] Co de Phone Number [facility] [address] [place] [address] * (ABNORMAL) C-Reactive protein (01/15/2025 10:11 PM EDT) [facility] CRP, Plasma 91.9(H) <=8.0 mg/L 01/15/2025 10:32 PM EDT [facility] Blood Venous blood specimen / Unknown Venipuncture / Unknown 01/15/2025 10:11 PM EDT 01/15/2025 10:12 PM EDT Narrative [facility] - 01/15/2025 10:32 PM EDT This CRP test is appropriate for assessment of infection, systemic inflammation and/or tissue injury. To assess cardiovascular disease risk order high sensitivity CRP (CRPH). [facility] [place] [facility]l [facility] LAB BLOOD ORDERABLES Fin al Result Performing Organization Address City/[facility]/ZIP Co de Phone Number [facility] [address] [place] [address] * (ABNORMAL) Blood gas panel, venous (01/15/2025 10:11 PM EDT) pH, Venous 7.39 7.32 - 7.43 LAB HEMATOLOGY METHOD 01/15/2025 10:14 PM EDT [facility] pCO2, Venous 47 40 - 55 mmHg LAB HEMATOLOGY METHOD 01/15/2025 10:14 PM EDT [facility] pO2, Venous 34 25 - 40 mmHg LAB HEMATOLOGY METHOD 01/15/2025 10:14 PM EDT [facility] SO2, Measured, Venous 68 65 - 80 % LAB HEMATOLOGY METHOD 01/15/2025 10:14 PM EDT [facility] Base Excess, Venous 2.8 -2.0 - 3.0 mmol/L LAB HEMATOLOGY METHOD 01/15/2025 10:14 PM EDT [facility] Bicarbonate, Calculated, Venous 29(H) 22 - 26 mmol/L LAB HEMATOLOGY METHOD 01/15/2025 10:14 PM EDT [facility] Hematocrit, Whole Blood 40.4 40.0 - 51.0 % LAB HEMATOLOGY METHOD 01/15/2025 10:14 PM EDT [facility] Sodium, Whole Blood 135(L) 136 - 145 mmol/L LAB HEMATOLOGY METHOD 01/15/2025 10:14 PM EDT [facility] Potassium, Whole Blood 4.3 3.6 - 4.9 mmol/L LAB HEMATOLOGY METHOD 01/15/2025 10:14 PM EDT [facility] Chloride, Whole Blood 99 97 - 107 mmol/L LAB HEMATOLOGY METHOD 01/15/2025 10:14 PM EDT [facility] Glucose, Whole Blood 110(H) 74 - 99 mg/dL LAB HEMATOLOGY METHOD 01/15/2025 10:14 PM EDT [facility] Lactate, Venous, Whole Blood 1.1 0.5 - 2.2 mmol/L LAB HEMATOLOGY METHOD 01/15/2025 10:14 PM EDT [facility] Ionized Calcium, Whole Blood 4.6 4.6 - 5.1 mg/dL LAB HEMATOLOGY METHOD 01/15/2025 10:14 PM EDT [facility] Blood Venous blood specimen / Unknown Venipuncture / Unknown 01/15/2025 10:11 PM EDT 01/15/2025 10:12 PM EDT us Gus Vigil APRN LAB BLOOD ORDERABLES Fin al Result [facility] [address] [place] [address] * (ABNORMAL) CMP (01/15/2025 10:11 PM EDT) Glucose, Plasma 116(H) 74 - 99 mg/dL 01/15/2025 10:32 PM EDT [facility] BUN, Plasma 14 7 - 21 mg/dL 01/15/2025 10:32 PM EDT [facility] Creatinine, Plasma 0.78 0.70 - 1.20 mg/dL 01/15/2025 10:32 PM EDT [facility] BUN/Creatinine Ratio 18 01/15/2025 10:32 PM EDT [facility] Sodium, Plasma 134(L) 136 - 145 mmol/L 01/15/2025 10:32 PM EDT [facility] Potassium, Plasma 4.6 3.6 - 4.9 mmol/L 01/15/2025 10:32 PM EDT [facility] Chloride, Plasma 97 97 - 107 mmol/L 01/15/2025 10:32 PM EDT [facility] CO2, Plasma 24 22 - 29 mmol/L 01/15/2025 10:32 PM EDT [facility] Anion Gap 13 6 - 16 mmol/L 01/15/2025 10:32 PM EDT [facility] Total Calcium, Plasma 8.7(L) 8.9 - 10.2 mg/dL 01/15/2025 10:32 PM EDT [facility] Total Protein 6.5 6.3 - 7.9 g/dL 01/15/2025 10:32 PM EDT [facility] Albumin, Plasma 3.7 3.5 - 5.2 g/dL 01/15/2025 10:32 PM EDT [facility] AST, Plasma 23 10 - 50 U/L 01/15/2025 10:32 PM EDT [facility] ALT, Plasma 52(H) 10 - 50 U/L 01/15/2025 10:32 PM EDT [facility] Alkaline Phosphatase, Plasma 124(H) 40 - 115 U/L 01/15/2025 10:32 PM EDT [facility] Total Bilirubin, Plasma 0.3 0.2 - 1.1 mg/dL 01/15/2025 10:32 PM EDT [facility] eGFRcr 119.3 mL/min/1.7 3m*2 01/15/2025 10:32 PM EDT [facility] Comment:Reported eGFRcr in m L/min/1.73m2 is based the CKD-EPI 2020 equation that does not use a race coefficient. Blood Venous blood specimen / Unknown Venipuncture / Unknown 01/15/2025 10:11 PM EDT 01/15/2025 10:12 PM EDT [facility] BLOOD ORDERABLES Fin al Result Performing Organization Address City/[facility] Co de Phone Number [facility] [address] [place] [address] * PT-INR (01/15/2025 10:11 PM EDT) Prothrombin Time 12.5 12.0 - 14.3 sec 01/15/2025 10:28 PM EDT [facility] INR 1.0 0.9 - 1.1 01/15/2025 10:28 PM EDT [facility] Blood Venous blood specimen / Unknown Venipuncture / Unknown 01/15/2025 10:11 PM EDT 01/15/2025 10:12 PM EDT Narrative [facility] - 01/15/2025 10:28 PM EDT OPTIMAL INR RANGES FOR PATIENT ON ORAL ANTICOAGULANT THERAPY Prevention of venous thromboembolism INR 2.0 to 3.0 In patients with heart disease: Atrial fibrillation INR 2.0 to 3.0 Valvular heart disease INR 2.0 to 3.0 Tissue heart valves INR 2.0 to 3.0 Mechanical prosthetic valves INR 2.5 to 3.5 Prevention of recurrent MA INR 2.5 to 3.5 [facility] [place] Niall MANA[facility]ILY LAB BLOOD ORDERABLES Fin al Result Performing Organization Address City/[facility] Co de Phone Number [facility] [address] [place] [address] * (ABNORMAL) CBC w/diff (01/15/2025 10:11 PM EDT) WBC Count 19.24(H) 3.70 - 10.30 10*3/uL LAB HEMATOLOGY METHOD 01/15/2025 10:14 PM EDT [facility] RBC Count 4.33(L) 4.60 - 6.10 10*6/uL LAB HEMATOLOGY METHOD 01/15/2025 10:14 PM EDT [facility] HGB 13.0(L) 13.7 - 17.5 g/dL LAB HEMATOLOGY METHOD 01/15/2025 10:14 PM EDT [facility] HCT 39.3(L) 40.0 - 51.0 % LAB HEMATOLOGY METHOD 01/15/2025 10:14 PM EDT [facility] Platelet Count 383(H) 155 - 369 10*3/uL LAB HEMATOLOGY METHOD 01/15/2025 10:14 PM EDT [facility] MCV 91 79 - 98 fL LAB HEMATOLOGY METHOD 01/15/2025 10:14 PM EDT [facility] MCH 30.0 26.0 - 32.0 pg LAB HEMATOLOGY METHOD 01/15/2025 10:14 PM EDT [facility] MCHC 33.1 30.7 - 35.5 g/dL LAB HEMATOLOGY METHOD 01/15/2025 10:14 PM EDT [facility] RDW 13.2 11.5 - 14.5 % LAB HEMATOLOGY METHOD 01/15/2025 10:14 PM EDT [facility] MPV 9.2 8.8 - 12.5 fL LAB HEMATOLOGY METHOD 01/15/2025 10:14 PM EDT [facility] nRBC 0.0 <=0.0 per 100 WBCs LAB HEMATOLOGY METHOD 01/15/2025 10:14 PM EDT [facility] Differential Type Automated LAB HEMATOLOGY METHOD 01/15/2025 10:14 PM EDT [facility] Neutrophils % 78 % LAB HEMATOLOGY METHOD 01/15/2025 10:14 PM EDT [facility] Lymphocytes % 12 % LAB HEMATOLOGY METHOD 01/15/2025 10:14 PM EDT [facility] Monocytes % 8 % LAB HEMATOLOGY METHOD 01/15/2025 10:14 PM EDT [facility] Eosinophils % 1 % LAB HEMATOLOGY METHOD 01/15/2025 10:14 PM EDT [facility] Basophils % 0 % LAB HEMATOLOGY METHOD 01/15/2025 10:14 PM EDT [facility] Immature Granulocytes % 1 % LAB HEMATOLOGY METHOD 01/15/2025 10:14 PM EDT [facility] Neutrophils Absolute 15.11(H) 1.60 - 6.10 10*3/uL LAB HEMATOLOGY METHOD 01/15/2025 10:14 PM EDT [facility] Lymphocytes Absolute 2.34 1.20 - 3.90 10*3/uL LAB HEMATOLOGY METHOD 01/15/2025 10:14 PM EDT [facility] Monocytes Absolute 1.46(H) 0.30 - 0.90 10*3/uL LAB HEMATOLOGY METHOD 01/15/2025 10:14 PM EDT [facility] Eosinophils Absolute 0.13 0.00 - 0.50 10*3/uL LAB HEMATOLOGY METHOD 01/15/2025 10:14 PM EDT [facility] Basophils Absolute 0.06 0.00 - 0.10 10*3/uL LAB HEMATOLOGY METHOD 01/15/2025 10:14 PM EDT [facility] Immature Granulocytes Absolute 0.14(H) 0.00 - 0.06 10*3/uL LAB HEMATOLOGY METHOD 01/15/2025 10:14 PM EDT [facility] Blood Venous blood specimen / Unknown Venipuncture / Unknown 01/15/2025 10:11 PM EDT 01/15/2025 10:[address] [facility] - 01/15/2025 10:14 PM EDT Therapeutic decision making should be based on absolute values, rather than percentages. Gus Vigil MANAGER FAMILY LAB BLOOD ORDERABLES [facility] al Result [facility] [address] [place] [address] documented in this encounter Visit Diagnoses Diagnosis [...] and no response to magnesium hydroxide 0924 ([facility] Hold - Provider: Automatic Transfer Provider - Reason: Patient in procedure)1216 ([facility] Unhold - Provider: Automatic Transfer Provider) HYDROmorphone [...] 0411 (Given - Provider: Taryn Miranda RN)09 ([facility] Hold - Provider: Automatic Transfer Provider - Reason: Patient in procedure)1216 ([facility] Unhold - Provider: Automatic Transfer Provider)1630 (Not [...] no bowel movement for 48 hours 0924 ([facility] Hold - Provider: Automatic Transfer Provider - Reason: Patient in procedure)121 ([facility] Unhold - Provider: Automatic Transfer Provider) naloxone [...] documented as of this encounter Care Teams Medication Assistant Relationship Specialty Start Date End Date Renetta Pardo APRN [address] [place] [address] Dr [place]ahn, JOHN [id number] PCP - General 09/09/23 02/16/25 documented as of this encounter
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
--- OUTSIDE RECORDS SUMMARY | 2025-01-20 09:49 | XMS_ITS | Encounter Summary ---
Author Organization Healthcare Address [address] [place] [address] Care Team Providers Care Steamer Operator Name Role Phone Renetta Pardo APRN Primary Care Provider [phone] Reason for Visit * Auth/Cert (Routine) Specialty Diagnoses / Procedures Referred By Adalid t Referred To Contact Diagnoses Acute postoperative pain Cellulitis of leg, left Cellulitis of left lower extremity Sepsis following procedure, initial encounter ([facility]) recent LLE surgery @ now with cellulitis Sachin Garza MD [address] [place] [address] Phone: tel: fax: P[facility] H Inpatient [address] [place] [address] Phone: tel: Referral ID Status Reason Start Date Expiration Date Visits Re quested Visits Authorized [id number] 1 1 Encounter Details Date Type Department Care Team (Late st Contact Info) Description 01/20/2025 9:49 AM EDT Anesthesia Event [facility] A OPERATING ROOM [address] [place] [address] Filemon Matute MD [address] [place] [address] Gladis Tejada APRN [address] [place] [address] [phone] (work) Anesthesia Record Procedure Summary Procedure Name Responsible [...] Alcohol; Local Anesth: None; Inserted by: Kaleb REAGN; Insertion Attempts: 1; Removal Date: 01/21/25; Removal Time: 2205; Removal Reason: Other (Comment) 01/18/25 0650 by Luisito Herr RN 01/21/25 220 by Taryn Miranda RN Peripheral IV Placement Date: 01/18/25; Placement Time: 09 (created via procedure documentation); Catheter Size: 18 [...] by: Anesthesiologist; Removal Date: 01/20/25; Removal Time: 11201/20/25 0956 by Cooper Owen, DO 01/20/25 1121 by Cooper Owen DO [...] place to sleep or slept in a m[facility]p (including now)? No 09/12/2023 Humiliation, Afraid, Rape, [...] were you homeless or living in a mcfp (including now)? No 01/17/2025 CAGE ASSESSMENT Answer [...] drink first t traci in the morning (EYE-RETINAL ANGIOGRAPHER) to steady your nerves or to get rid of a hangover? 0 09/10/2023 CAGE Questionnaire Score 0 024 Utilities Answer Date Recorded In the past 12 months has th e electric, gas, oil, or water [employer] threatened to shut off services in your [...] portions of the procedure(s) and immediately available [facility] services the entire duration. See resident note [...] portions of the procedure(s) and immediately available [facility] services the entire duration. See resident note for details. * Anesthesia Preprocedure Evaluation - Filemon Matute MD - 01/20/2025 7:12 AM EDT Patient: Panda Machado Procedure Information Date/Time: 01/20/25 1020 Procedure: INCISION AND DRAINAGE, LOWER EXTREMITY (Left: Leg Lower) Location: [facility] / [facility] OR Surgeons: Ye Navarro MD [facility] Panda Machado is a 34 y.o. [...] Normal Ventricular Rate 92 Atrial Rate 92 [place] Interval 122 QRSD Interval 102 QT Interval 350 QTC Interval 432 P [place] 56 R [place] 44 T Wave [place] 57 Diagnosis Normal sinus rhythm Diagnosis Normal [...] LEG SURGERY Left [3] Allergies Allergen Reactions [place] Hives [4] acetaminophen, 1,000 mg, Oral, q6h [...] Description 2025 7:50 AM EDT Office Visit [facility] [address] [place] [address] [place] [address] Stella Brown, TEST DESIGN ENGINEER [address] [place] [address] 2025 10:30 AM EDT Office Visit [facility] [address] [place] [address] Santiago Collado MD [address] [place] [address] [address] [place] [address] 03/27/2025 9:30 AM EDT Office Visit [facility] [address] [place] [address] Santiago Collado MD [address] [place] [address] [address] [place] [address] documented as of this encounter Procedures Procedure Name Priority Date/Time Associated Diagnosis Comments ANESTHESIA PERIPHERAL IV PLACEMENT Routine 01/20/2025 10:10 AM EDT PB ANESTHESIA PLACEHOLDER Routine 01/20/2025 9:56 AM EDT [place] AN ELECTIVE ENDOTRACHEAL AIRWAY Routine 01/20/2025 9:56 [...] MD ANESTHESIA ORDERABLES Final Res ult * [place] AN ELECTIVE ENDOTRACHEAL AIRWAY, PB ANESTHESIA PLACEHOLDER [...] tongue, cricoid pressure used to obtain view. us Filemon Matute MD ANESTHESIA ORDERABLES Final [...] documented as of this encounter Care Teams Steamer Operator Relationship Specialty Start Date End Date Renetta Pardo APRN [address] [place] [address] [place] [address] PCP - General 09/09/23 02/16/25 documented as of this encounter
--- OUTSIDE RECORDS SUMMARY | 2025-01-20 09:52 | XMS_ITS | Encounter Summary ---
Author Organization Healthcare Address [address] [place] [address] Care Team Providers Care Health Plan Advisor Name Role Phone Renetta Pardo APRN Primary Care Provider [phone] Reason for Visit * Reason Comments Post-op Problem * Auth/Cert (Routine) Specialty Diagnoses / Procedures Referred By Adalid t Referred To Contact Diagnoses Acute postoperative pain Cellulitis of leg, left Cellulitis of left lower extremity Sepsis following procedure, initial encounter ([facility]) recent LLE surgery @ now with cellulitis Sachin Garza MD [address] [address] Phone: tel: fax: PAV H Inpatient [address] [place] [address] Phone: tel: Referral ID Status Reason Start Date Expiration Date Visits Re quested Visits Authorized [id number] 1 1 Encounter Details Date Type Department Care Team (Late st Contact Info) Description 01/20/2025 9:52 AM EDT - 01/20/2025 11:57 AM EDT Surgery PAV A OPERATING ROOM [address] [place] [address] Bob Nava MD [id number] [place] [address] INCISION AND DRAINAGE, LOWER EXTREMITY [...] any time in the past 12 m [facility], were you homeless or living in a [...] drink first t traci in the morning (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 31.8 mL 01/02/2025 5 acetaminophen (Tylenol) 500 MG tablet Take [...] [facility] * Rosaura OnIR - Arcenio, Leigh SHEREEN Ybarra - 01/22/2025 4:21 PM EDT Images from the original note were not included. 79372 Flushing Your PICC Line at Home Your [...] soap and water, use an alcohol-based hand arts and crafts instructor. The gel should have at least 60% [...] PICC. Last Reviewed Date: 2024 00:00:00 ?? [id number] The [employer]. All rights reserved. This information is not intended as a substitute for professional medical care. Always follow your healthcare professional's instructions. * Rosaura [facility] - Leigh Rg RN - 01/22/2025 4:21 PM EDT Images from the original note were not included. 21497 Discharge Instructions: Changing the Dressing on Your [...] damage Last Reviewed Date: 2024 00:00:00 ?? 8713-7165 The [employer]. All rights reserved. This information is not [...] the video go to this web address: [email or web address], scan this QR code with your smart phone ?? [facility] * Leigh Muller RN - 01/22/2025 4:20 PM EDT Images from the original note were not included. 15036 Understanding Post Sepsis Syndrome (PSS) Sepsis is [...] infections Last Reviewed Date: 2022 00:00:00 ?? 5549-6940 [employer]. All rights reserved. This information is not intended as a substitute for professional medical care. Always follow your healthcare professional's instructions. * Rosaura OnIR - Leigh Rg RN - 01/22/2025 4:20 PM EDT Images from the original note were not included. 180094gw Buckle (Torus) Fracture of a Leg Your [...] wet, you can dry it with a education department chair on the cool setting. ? [...] doctor Last Reviewed Date: 2024 00:00:00 ?? 6554-7113 The [employer]. All rights reserved. This information is not intended as a substitute for professional medical care. Always follow your healthcare professional's instructions. * Rosaura RushDILLON - Leigh Rg RN - 01/22/2025 4:20 PM EDT Images from the original note were not included. 50409 Discharge Instructions for Cellulitis You have been [...] are in pain. Ask what kind of yyrz-zjj-huoesll medicine you can take for pain. ? [...] Vomiting. Last Reviewed Date: 2024 00:00:00 ?? 6794-7494 The [employer]. All rights reserved. This information is not intended as a substitute for professional medical care. Always follow your healthcare professional's instructions. * Discharge Summary - Mauricio Mondragon MD - 01/22/2025 4:16 PM EDT Hospitalization Admit Date/Time: 01/15/2025 9:32 PM Admitting Attending: Sachin Garza Discharge Date: 01/22/25 Discharge Attending Physician: Sachin Garza MD PCP name and Address: Renetta Pardo, TOUR CONSULTANT [address] [place] [address] Dr Kang B / [facility] [address] Referring provider name and address: Maldonado Luciano PA [address] [place] [address] [place] [address] Chief Concern, Brief History of Present Illness, and Hospital Course Patient arrived to [facility] on 01/15/25 with concern for surgical [...] medications were sent to [facility] - [place], [place] - [address] [facility] [address] DAPTOmycin injection These medications were sent to [facility] - [place], [place] - [address] [facility] [address] oxyCODONE 5 MG immediate release capsule Discharge Diagnosis Medical Problems Active and Resolved Hospital Problems Hospital Closed fracture of left tibial plateau Overview Addendum 09/16/2023 1:42 PM by Rolanda Adams APRN, DNP ORT consulted TROM in place WB per ORT 09/15: ORIF L tibial plateau fx Follow up with Dr. Nava on 10/04 * (Principal) Cellulitis of leg, left Sepsis following procedure ([facility]) Cellulitis of left lower extremity Post [...] Time Provider Department Center 01/27/2025 11:00 AM [facility] ORTHOPAEDICS PEDIATRIC CARDIOLOGIST [facility] 02/03/2025 8:10 AM Lawrence Hayes MD [facility] 02/11/2025 1:00 PM Ary Santiago APRN IDBCCLX [place] 03/03/2025 1:00 PM Ary Santiago APRN IDBCCLX [...] General: Spoke with: Patient, Family, and Bedside cnmt and Interventions: Assessed: Dressing Dressing Interventions: CDI [...] please contact the Orthopedic Transition Nurse at [phone] Monday through Monday 8:00 am to 2:30 pm. If you feel your concern is a medical emergency please call 911 immediately * Progress Notes - Anna Elam RN - 01/22/2025 9:28 AM EDT Case Management Discharge Note Ravin Ribeiro 34 y.o. male CSN: [id number] Admission: 01/15/2025 9:32 PM Primary Problem: Cellulitis of leg, left Primary Quality Improvement Coordinator (Rn): Primary Caregiver: Self Assistance Available at Discharge: Current Outpatient/Agency/Support Group: DME Availability of Care Givers (#Hours): 24 hours Family/Quality Improvement Coordinator (Rn)(s) Willingness Assessed to care for patient at home: Yes Family/Quality Improvement Coordinator (Rn)(s) Readiness Assessed to care for patient at [...] Community Agency(s): Patient's Choice of Community Agency(s): [facility] Patient/Family Anticipated Services at Transition: Patient/Family Anticipated Services at Transition: outpatient care DME/Equipment Needed after Discharge: Equipment Currently Used at Home: walker, rolling, commode chair, wheelchair, manual Equipment Needed After Discharge: walker, rolling, commode chair Readmission Within the Last 30 Days: Readmission Within the Last 30 Days: other (see comments) (cellulitis) Medicare Documentation: Medicare Second Notice?: No (pt has [place] medicaid) Follow-up: No follow-up provider specified. Discharge Transportation: Transportation Anticipated: family or friend will provide Transportation Home at Discharge: Family/Friend will Provide Has discharge transport been arranged?: No Follow Up Transport: Transportation Needed to Follow up Appoinments: Family/Friend will Provide Additional Comments: Per primary provider, pt is medically ready to discharge home with standard OPAT. PICC in place. Pt will follow up at [facility] for weekly PICC care and labs. First appointment is scheduled for 01/27 at 11 AM. Pt's family will be able to provide assistance and transportation. [facility] will complete teaching today and deliver IV ABX to bedside around 3 PM. Pt and S/O is aware and agreeable to discharge POC. [facility] [phone] Anna Elam RN * Progress Notes - [...] required Ayden Canseco MD PGY-1, Orthopaedic Surgery [facility] Orthopaedic Trauma Service Pager: [phone] Orthopaedic Recon/Spine/Foot and Ankle Service Pager: [phone] Cosigned by Lawrence Hayes MD at 01/22/2025 [...] required Red Mondragon MD Orthopaedic Surgery PGY-1 [facility] Orthopaedic Trauma Service Pager: [phone] Orthopaedic Recon/Spine/Foot and Ankle Service Pager: [phone] Personal Pager: [phone] Cosigned by Lawrence Hayes MD at 01/22/2025 1:06 PM EDT * Procedures - Norma Miranda RN - 01/21/2025 7:01 PM EDTAssociated Order(s): Insert PICC line Insert PICC line Date/Time: 01/21/2025 7:01 PM Performed by: Norma Miranda RN Authorized by: Sachin Garza MD [place] Protocol: Verbal consent obtained?: Yes Written consent [...] preference Patient position: Supine Catheter Lot #: [id number] Catheter survey chief: Weotta PowerPICC Solo Catheter placed: Single lumen Catheter [...] 01/21/2025 3:28 PM EDT Referrals sent to [facility] and for for possible home IV antibiotic infusion. There was no accepting companies in patient's area. CM spoke with patient and he is agreeable to either go to his local hospital [facility] or come to [facility] in [place] for his weekly PICC care/labs if needed. * Nursing Note - Camden Vital RN - 01/21/2025 1:45 PM EDT Orthopedic Transition Nurse Note General: Spoke with: Patient, Family, and Bedside cnmt and Interventions: Assessed: Dressing Dressing Interventions: CDI [...] please contact the Orthopedic Transition Nurse at [phone] Monday through Monday 8:00 am to 2:30 pm. If you feel your concern is a medical emergency please call 911 immediately * Steff Odell RN - 01/21/2025 11:57 AM EDT Images from the original note were not included. [id number] PICC Line Care PICC stands for peripherally [...] arm Last Reviewed Date: 2024 00:00:00 ?? [id number] The [employer]. All rights reserved. This information is not intended as a substitute for professional medical care. Always follow your healthcare professional's instructions. * Steff Odell RN - 01/21/2025 11:56 AM EDT Images from the original note were not included. [id number] * Steff Odell RN - 01/21/2025 11:56 AM EDT Images from the original note were not included. 20341 * Steff Odell RN - 01/21/2025 11:56 [...] house or a medical facility. The case management social worker/social service liaison will setthat up based on your insurance. [...] or during weekends/[place] holidays, call the paging clicking machine operator at . Ask for the infectious disease fellow status controller. Call the clinic if you have any [...] from the original note were not included. 27527 Flushing Your PICC Line at Home Your [...] soap and water, use an alcohol-based hand arts and crafts instructor. The gel should have at least 60% [...] PICC. Last Reviewed Date: 2024 00:00:00 ?? [id number] The [employer]. All rights reserved. This information is not intended as a substitute for professional medical care. Always follow your healthcare professional's instructions. * Rosaura [facility] - Steff Paz RN - 01/21/2025 11:56 AM EDT Images from the original note were not included. [id number] Daptomycin Injection Brand Name(s): Cubicin??, Cubicin RF??; [...] to the Food and Drug Administration's (FDA) Syrinixtch Adverse Event Reporting program online (https://www.fda.gov/Safety/MedWatch) or by phone ( ). What should I do in case of OVERDOSE? In case of overdose, call the poison control helpline at . Information is also available online at https://www.poisonhelp.org/help. If the victim has collapsed, had a seizure, has trouble breathing, or can't be awakened, immediately call emergency services at 998. What OTHER INFORMATION should I know? Keep [...] of all of the prescription and nonprescription (nwdy-xfz-dfzenfg) medicines you are taking, as well as [...] or pharmacist about specific clinical use. The [place] [employer] represents that the information provided hereunder was formulated with a reasonable standard of care, and in conformity with professional standards in the field. The [place] [employer] makes no representations or warranties, express or implied, including, but not limited to, any implied warranty of merchantability and/or fitness for a particular purpose, with respect to such information and specifically disclaims all such warranties. Users are advised that decisions regarding drug therapy are complex medical decisions requiring the independent, informed decision of an appropriate health personal care aid, and the information is provided for informational purposes only. The entire monograph for a drug should be reviewed for a thorough understanding of the drug's actions, uses and side effects. The [employer] [employer] does not endorse or recommend the use of any drug.The information is not a substitute for medical care. AHFS?? Patient Medication Information?. ?? Copyright, 2023. The [employer] [employer]System Pharmacists??, [address], [address], [place], [place]. All Rights Reserved. Duplication for commercial use must be authorized by [facility]. Selected Revisions: July 28, 2019. AHFS?? Patient Medication Information?. ?? Copyright, 2024 * [facility] - Steff Paz RN - 01/21/2025 11:56 AM EDT Images from the original note were not included. 86139 Discharge Instructions: Caring for Your Peripherally Inserted [...] damage. Last Reviewed Date: 2024 00:00:00 ?? 6752-1706 The [employer]. All rights reserved. This information is not intended as a substitute for professional medical care. Always follow your healthcare professional's instructions. * [facility] - Steff Paz RN - 01/21/2025 11:56 AM EDT Images from the original note were not included. 14077 Central Line Infections You need a central [...] water. Or they use an alcohol-based hand arts and crafts instructor containing at least 60% alcohol. ? Using [...] (warm or cold), and use alcohol-based hand arts and crafts instructor with at least 60% alcohol as directed. To clean your hands well,follow the guidelines on this sheet. Visitors should wash their hands well when they arrive and when they leave. ? Make sure healthcare staff and your visitors clean their hands. They should use soap and clean, running water or an alcohol-based hand arts and crafts instructor before and after checking the line. Don?t [...] good choice for cleaning your hands. The arts and crafts instructor should have at least 60% alcohol. Note that some germs can't be killed by alcohol. Your healthcare team can answer any questions you have about when to use a hand arts and crafts instructor, or when it?s better to wash with soap and water. Follow these steps: ? Spread the hand arts and crafts instructor in the palm of one hand. (Check the package for specific guidelines.) ? Rub your hands together briskly. Clean the backs of your hands, the palms, between your fingers, and up your wrists. ? Rub until the arts and crafts instructor is gone and your hands are completely [...] skin Last Reviewed Date: 2023 00:00:00 ?? 1738-5981 The [employer]. All rights reserved. This information is not [...] Single Lumen PICC Patient Specific Outpatient Circumstances: [address] [place] [address] Family Support: Extended Emergency Contact Information Primary Emergency Contact: Hayley Buenrostro Address: [address] [place] [address] Mobile Relation: Significant Other Preferred language: German Counselling Psychologist needed? No Secondary Emergency Contact: Jenny Buenrostro Address: [address] [place] [address] Mobile Relation: Mother Contact information: Ravin Ribeiro [phone] (home) Outpatient services (including home infusion, home health, facility referral: See recent [facility] case management/social work note for finalization of services ID follow up appointment: Future Appointments Date Time Provider Department Center 02/03/2025 8:10 AM Lawrence Hayes MD [facility] 02/11/2025 1:00 PM Ary Satniago APRN IDBCCLX [place] 03/03/2025 1:00 PM Ary Santiago APRN IDBCCLX [place] Patient Assessment I spoke with patient at [...] via secure chat or staff messaging in zePASS. Patient and family will need to be [...] days prior to presentation. He presented to [facility] wherehe was febrile to 101.3F. [...] PA-C Division of Infectious Diseases Available on zePASS Chat History, assessment, and plan discussed with [...] labs to: ID OPAT Team Fax #: [phone] Appointments: Ary Santiago APRN on 02/11 at 1PM and 03/03 at 1PM [facility] [place]: [address] [place] [address] (Select Option 3 for IV Antibiotic / PICC line related issues) For questions regarding OPAT prior to discharge, reach out to the OPAT team via zePASS Secure Chat (Group: OPAT Referral Team). For all questions regarding OPAT after discharge should be directed to the OPAT Team at (Select Option 3 for IV Antibiotics/PICC Issues) between 8am-5pm. After 5 pm, or during weekends/[place] holidays, please call the paging clicking machine operator at to reach the on-call [...] at 01/18/25 1133 [2] Allergies Allergen Reactions [place] Hives * Consults - Delma Ortiz - 01/21/2025 10:00 AM EDT Pastoral Care Note: Patient was appreciative of air liaison and special staff's visit and expressed gratitude to the care team. he said family is on their way to him. Referral From: Drug And Alcohol Counselor Initiated Pastoral Care Provided For: Patient Patient Profile: Spiritual Assessment: Support Systems/ Spiritual Resources: Treasure, Sense of Peace, Trust, Gratitude Spiritual Needs: Emotional support, Spiritual ritual Spiritual Issues: Discharge Interventions: Pastoral Care Outcomes: Patient Outcomes: Appreciative of Drug And Alcohol Counselor Support, Expresses acceptance, Gratitude Cosigned by Macrina Dumont at 01/21/2025 6:24 PM EDT Associated attestation - Macrina Dumont - 01/21/2025 6:24 PM EDT This is to attest air liaison and special staff international broadcast music librarian chart note has been reviewed and okayed. [...] ambulate in room/hallway with family and staff psychologist while remains inpatient. Patient demonstrates no further [...] Prevent or Manage Infection Flowsheets (Taken 01/20/2025 0822) Infection Management: aseptic technique maintained Fever Reduction/Comfort [...] Agree with above assessment and evaluation from resident/SONOGRAPHY TECHNICIAN. * Progress Notes - Anna Elam RN - 01/20/2025 10:48 AM EDT Case Management Adult Progress Note Ravin Ribeiro 34 y.o. male CSN: [id number] Admission: 01/15/2025 9:32 PM Primary Problem: Cellulitis of leg, left Anticipated Discharge Date: TBD Pt to OR today for repeat I&D on left knee. Pt has worsening NORMAN and team wants to repeat AM labs. Final ID recs and OPAT eval are pending. [facility]. Pt's medicaid may be a potential barrier to HH. CM will continue to assist with discharge POC. Anna Elam RN * Op Note - Bob Nava MD - 01/20/2025 10:26 AM EDT Operative Note Date: 01/20/25 Location: [place] OR Name: Ravin Ribeiro, : 1990, Diagnoses: Pre-op Diagnosis Closed fracture of left tibial plateau with routine healing, subsequent encounter Left proximal tibia (knee region) deep abscess Post-op Diagnosis Closed fracture of left tibial plateau with routine healing, subsequent encounter Left proximal tibia (knee region) deep abscess Procedure(s): Incision and drainage of left knee deep abscess Attending Surgeon(s): * Bob Nava - Primary Rubber Moulding Machine Operator(s): * Emely Giron MD - [...] days prior to presentation. He presented to [facility] wherehe was febrile to 101.3F. [...] PA-C Division of Infectious Diseases Available on zePASS Chat History, assessment, and plan discussed with [...] Gustavo Hightower MD [2] Allergies Allergen Reactions [place] Hives * Consults - Ricco Howard RN [...] required Ayden Canseco MD PGY-1, Orthopaedic Surgery [facility] Orthopaedic Trauma Service Pager: [phone] Orthopaedic Recon/Spine/Foot and Ankle Service Pager: [phone] Cosigned by Sachin Garza MD at 01/20/2025 [...] for redosing at this time. Patient with ONRMAN. Recommend to hold dose at this time [...] Course 1. Sepsis following procedure, initial encounter ([facility]) 2. Cellulitis of left lower extremity [...] admission Level of Mobility: Ambulatory- community Mobility Brown: Independent gait without device (intermittne use of [...] Mobility Bed Mobility Exam: Scooting/Bridging Level of Brown: Independent Bed Mobility Exam: Supine to Sit Level of Brown: Independent Transfers Transfer Exam: Sit to stand Level of Brown: Stand-by assist Physical/Nonphysical Assist: Verbal Cues Assistive Device: Walker, rolling Transfer Exam: Stand to Sit Level of Brown: Stand-by assist Physical/Nonphysical Assist: Verbal Cues Assistive Device: Walker, rolling Toilet Transfer Level of Brown: Stand-by assist Physical/Nonphysical Assist: Verbal Cues Type of Transfer: Ambulation, To toilet Assistive Device: Walker, rolling, Grab bar Functional Mobility Device: Rolling walker Assistance: Standby assist <Household distance, cuing for safety, pacing activity, RW management, and encouraged L LE WBAT-as permitted per chart (pt reports being used to NWB for pain management NURSE ORTHO) Balance Postural Appearance Posture: Within Functional Limits [...] admission Level of Mobility: Ambulatory- community Mobility Brown: Independent gait without device (intermittne use of [...] Mobility Bed Mobility Exam: Scooting/Bridging Level of Brown: Independent Bed Mobility Exam: Supine to Sit Level of Brown: Independent Transfers Transfer Exam: Sit to stand Level of Brown: Stand-by assist Physical/Nonphysical Assist: Verbal Cues Assistive Device: Walker, rolling Transfer Exam: Stand to Sit Level of Brown: Stand-by assist Physical/Nonphysical Assist: Verbal Cues Assistive [...] Assessments Standardized Assessments: AMPA 6-Clicks Mobility Assessment [facility] 6-Clicks Mobility Assessment Difficulty patient has turning [...] 3-5 steps with a railing?: A little [facility] 6-Clicks Mobility Assessment Total : [...] (01/01) s/p I&D (01/18) Edited by: Mauricio Mondraogn MD at 01/19/2025 0515 SSI: H/H 11.3/34.2, [...] required Red Mondragon MD Orthopaedic Surgery PGY-1 [facility] Orthopaedic Trauma Service Pager: [phone] Orthopaedic Recon/Spine/Foot and Ankle Service Pager: [phone] Personal Pager: [phone] Cosigned by Ye Navarro MD at 01/21/2025 [...] Attending Surgeon(s): * Ye Navarro - Primary Rubber Moulding Machine Operator(s): * Harvey Swift MD - 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 cnmt and Interventions: Assessed: Wound 01/01/25 Surgical Open [...] please contact the Orthopedic Transition Nurse at [phone] Monday through Monday 8:00 am to 2:30 [...] ] Family [ ] Friend [ ] Counselling Psychologist [X] Medical records HISTORY OF PRESENT ILLNESS: [...] medial pretibial incision so he presented to [facility] for evaluation. He was febrile [...] on day of presentation. He lives in [place] with his , CONSTANZA, and 2 young [...] days prior to presentation. He presented to [facility] wherehe was febrile to 101.3F. [...] PA-C Division of Infectious Diseases Available on zePASS Chat History, assessment, and plan discussed with ID attending, Dr. Azucena Collado The following complex inpatient infectious disease services were performed today: Complex antimicrobial therapy counseling and treatment [1] History reviewed. No pertinent past medical history. [2] Past Surgical History: Procedure Laterality Date LEG SURGERY Left [3] Allergies Allergen Reactions [place] Hives [4] Current Facility-Administered Medications Medication Dose Route Frequency Provider Last Rate Last Admin acetaminophen (Tylenol) tablet 1,000 mg 1,000 mg [place] q6h [facility] Tyrone Howard MD 1,000 mg at 01/17/25 [...] Note Ravin Ribeiro 34 y.o. male CSN: [id number] Admission: 01/15/2025 9:32 PM Primary Problem: Cellulitis of leg, left Wrist Closer reviewed chart and spoke with patient to complete this Initial Case Management Assessment. PCP: Renetta Pardo APRN Emergency Contact: Extended Emergency Contact Information Primary Emergency Contact: Hayley Buenrostro Address: [address] [place] [address] Mobile Relation: Significant Other Preferred language: German Counselling Psychologist needed? No Secondary Emergency Contact: Jenny Buenrostro Address: [address] [place] [address] Mobile Relation: Mother Insurance: Primary Visit Coverage Payer Plan Sponsor Code Group Number Group Name [employer]ICA[employer] MOLINA [employer]ICAID Primary Visit Coverage Subscriber Subscriber ID Subscriber Name Subscriber N Subscriber Address [id number] RAVIN RIBEIRO [id number] [place] [address] Patient information: Primary Caregiver: Self Support System: Immediate family Daily Living Activities: Functional Status: Independent Living Arrangements: Spouse/Significant other, Family Type of Residence: Private residence, Single Level [address] [place] [address] Current DME: Equipment Currently Used at Home: [...] Outpatient Dialysis Services: Living Will/Advance Directive/Power of Animal Rehabilitator /Guardian: Have you reviewed your Advance Directive [...] Pt states he lives at home in [place] with his , MIL, and two small 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 cnmt and Interventions: Assessed: Wound 01/01/25 Surgical Open [...] please contact the Orthopedic Transition Nurse at [phone] Monday through Monday 8:00 am to 2:30 [...] tibial pulse, cap refill <2 sec, digits [facility] Orthopedic Surgery Tertiary Exam Completed 01/16/25 No [...] exams. Mitch Giron MD PGY-3, Orthopaedic Surgery [facility] Orthopaedic Trauma Service Pager: [phone] Orthopaedic Recon/Spine/Foot and Ankle Service Pager: [phone] Cosigned by Sachin Garza MD at 01/18/2025 [...] please contact the Orthopedic Transition Nurse at [phone] Monday through Monday 8:00 am to 2:30 [...] examinations WRadha Howard MD PGY-2, Orthopaedic Surgery [facility] Cosigned by Sachin Garza MD at [...] W. Shawn Howard MD PGY-2, Orthopaedic Surgery [facility] Orthopaedic Trauma Service Pager: [phone] Orthopaedic Recon/Spine/Foot and Ankle Service Pager: [phone] [1] History reviewed. No pertinent past medical [...] 25 tablet 0 [4] Allergies Allergen Reactions [place] Hives Cosigned by Sachin Garza MD at [...] Orthopaedic Trauma * ED Provider Notes - NiallGus cox APRN - 01/15/2025 9:21 PM EDT Images [...] Miguel 01/15/252224 STAT Canceled TYRONE HOWARD 01/15/252224 NPO [...] 01/16/25 0657 Sepsis following procedure, initial encounter ([facility]) Cellulitis of left lower extremity Acute [...] diagnosis was Sepsis following procedure, initial encounter ([facility]). Diagnoses of Cellulitis of left lower [...] Drug use: Never [5] Allergies Allergen Reactions [place] Hives Gus Vigil APRN 01/16/25 0657 Cosigned [...] to LLE s/p recent tibial surgery on 5/20. Pt had surgery to same area on [...] 01/16/25 0733 Sepsis following procedure, initial encounter ([facility]) Cellulitis of left lower extremity Acute postoperative pain Ultimately, this patient Was admitted (Admission) The primary encounter diagnosis was Sepsis following procedure, initial encounter ([facility]). Diagnoses of Cellulitis of left lower [...] Description 2025 7:50 AM EDT Office Visit [facility] Orthopaedic Surgery & Sports Medicine [address] [place] [address] Stella Brown N, TOUR CONSULTANT [address] [place] [address] 2025 10:30 AM EDT Office Visit [facility] [address] [place] [phone] Santiago Collado MD [address] [place] [address] [address] [place] [address] 03/27/2025 9:30 AM EDT Office Visit [facility] [address] [place] [phone] Santiago Collado MD [address] [place] [address] [address] [place] [address] Scheduled Orders Name Type Priority Associated Diagnoses [...] 44.4(H) <=8.0 mg/L 01/22/2025 9:25 AM EDT [facility] Blood Venous blood specimen / Unknown Venipuncture / Unknown 01/22/2025 5:04 AM EDT 01/22/2025 5:31 AM EDT Narrative [facility] - 01/22/2025 9:25 AM EDT This CRP test is appropriate for assessment of infection, systemic inflammation and/or tissue injury. To assess cardiovascular disease risk order high sensitivity CRP (CRPH). us Michelle ZULUAGA LAB BLOOD ORDERABLES Final Res ult [facility] [address] [place] [address] * Lavender Top (01/22/2025 5:04 AM EDT) Pathologist [facility] Extra Hold for add-ons 01/22/2025 8:02 AM EDT [facility] Comment:Auto resulted. Blood Venous blood specimen / Unknown 01/22/2025 5:04 AM EDT 01/22/2025 5:30 AM EDT us Sachin Garza MD LAB BLOOD ORDERABLES Final R esult [facility] [address] [place] [address] * (ABNORMAL) Basic metabolic panel (01/22/2025 5:04 AM EDT) Glucose, Plasma 91 74 - 99 mg/dL 01/22/2025 6:01 AM EDT [facility] BUN, Plasma 33(H) 7 - 21 mg/dL 01/22/2025 6:01 AM EDT [facility] Creatinine, Plasma 1.47(H) 0.70 - 1.20 mg/dL 01/22/2025 6:01 AM EDT [facility] BUN/Creatinine Ratio 22 01/22/2025 6:01 AM EDT [facility] Sodium, Plasma 137 136 - 145 mmol/L 01/22/2025 6:01 AM EDT [facility] Potassium, Plasma 5.3(H) 3.6 - 4.9 mmol/L 01/22/2025 6:01 AM EDT [facility] Chloride, Plasma 100 97 - 107 mmol/L 01/22/2025 6:01 AM EDT [facility] CO2, Plasma 28 22 - 29 mmol/L 01/22/2025 6:01 AM EDT [facility] Anion Gap 9 6 - 16 mmol/L 01/22/2025 6:01 AM EDT [facility] Total Calcium, Plasma 9.6 8.9 - 10.2 mg/dL 01/22/2025 6:01 AM EDT [facility] eGFRcr 63.4 mL/min/1.7 3m*2 01/22/2025 6:01 AM EDT [facility] Comment:Reported eGFRcr in m L/min/1.73m2 is based the CKD-EPI 2020 equation that does not use a race coefficient. Blood Venous blood specimen / Unknown Venipuncture / Unknown 01/22/2025 5:04 AM EDT 01/22/2025 5:31 AM EDT us Sachin Garza MD LAB BLOOD ORDERABLES Final R esult [facility] [address] [place] [address] * (ABNORMAL) CBC (01/21/2025 7:29 PM EDT) WBC Count 10.10 3.70 - 10.30 10*3/uL LAB HEMATOLOGY METHOD 01/21/2025 7:42 PM EDT [facility] RBC Count 3.82(L) 4.60 - 6.10 10*6/uL LAB HEMATOLOGY METHOD 01/21/2025 7:42 PM EDT [facility] HGB 11.5(L) 13.7 - 17.5 g/dL LAB HEMATOLOGY METHOD 01/21/2025 7:42 PM EDT [facility] HCT 35.2(L) 40.0 - 51.0 % LAB HEMATOLOGY METHOD 01/21/2025 7:42 PM EDT [facility] Platelet Count 446(H) 155 - 369 10*3/uL LAB HEMATOLOGY METHOD 01/21/2025 7:42 PM EDT [facility] MCV 92 79 - 98 fL LAB HEMATOLOGY METHOD 01/21/2025 7:42 PM EDT [facility] MCH 30.1 26.0 - 32.0 pg LAB HEMATOLOGY METHOD 01/21/2025 7:42 PM EDT [facility] MCHC 32.7 30.7 - 35.5 g/dL LAB HEMATOLOGY METHOD 01/21/2025 7:42 PM EDT [facility] RDW 13.1 11.5 - 14.5 % LAB HEMATOLOGY METHOD 01/21/2025 7:42 PM EDT [facility] MPV 9.1 8.8 - 12.5 fL LAB HEMATOLOGY METHOD 01/21/2025 7:42 PM EDT [facility] nRBC 0.0 <=0.0 per 100 WBCs LAB HEMATOLOGY METHOD 01/21/2025 7:42 PM EDT [facility] Blood Venous blood specimen / Unknown Venipuncture / Unknown 01/21/2025 7:29 PM EDT 01/21/2025 7:35 PM EDT us Sachin D Greg MD LAB BLOOD ORDERABLES Final R esult [facility] [address] [place] [address] * (ABNORMAL) Basic metabolic panel (01/21/2025 7:29 PM EDT) Glucose, Plasma 122(H) 74 - 99 mg/dL 01/21/2025 8:03 PM EDT [facility] BUN, Plasma 31(H) 7 - 21 mg/dL 01/21/2025 8:03 PM EDT [facility] Creatinine, Plasma 1.64(H) 0.70 - 1.20 mg/dL 01/21/2025 8:03 PM EDT [facility] BUN/Creatinine Ratio 19 01/21/2025 8:03 PM EDT [facility] Sodium, Plasma 139 136 - 145 mmol/L 01/21/2025 8:03 PM EDT [facility] Potassium, Plasma 4.6 3.6 - 4.9 mmol/L 01/21/2025 8:03 PM EDT [facility] Chloride, Plasma 101 97 - 107 mmol/L 01/21/2025 8:03 PM EDT [facility] CO2, Plasma 26 22 - 29 mmol/L 01/21/2025 8:03 PM EDT [facility] Anion Gap 12 6 - 16 mmol/L 01/21/2025 8:03 PM EDT [facility] Total Calcium, Plasma 9.1 8.9 - 10.2 mg/dL 01/21/2025 8:03 PM EDT [facility] eGFRcr 55.6 mL/min/1.7 3m*2 01/21/2025 8:03 PM EDT [facility] Comment:Reported eGFRcr in m L/min/1.73m2 is based the CKD-EPI 2020 equation that does not use a race coefficient. Blood Venous blood specimen / Unknown Venipuncture / Unknown 01/21/2025 7:29 PM EDT 01/21/2025 7:35 PM EDT us Sachin Garza MD LAB BLOOD ORDERABLES Final R esult [facility] [address] [place] [id number] * PICC SINGLE LUMEN (SM[employer] LINK) (01/21/2025 7:01 PM EDT) Narrative Norma Miranda RN - 01/21/2025 7:01 PM EDT Norma Miranda RN 01/21/2025 7:19 PM Insert PICC line Date/Time: 01/21/2025 7:01 PM Performed by: Norma Miranda RN Authorized by: Sachin Garza MD [place] Protocol: Verbal consent obtained?: Yes Written consent [...] preference Patient position: Supine Catheter Lot #: [id number] Catheter survey chief: Bard PowerPICC Solo Catheter placed: Single lumen [...] at day 4 2024 7:15 AM EDT [facility] Gram Stain Result No polymorphonuclear leukocytes seen 01/25/2025 7:15 AM EDT [facility] Gram Stain Result No organisms seen 01/25/2025 7:15 AM EDT [facility] Swab Structure of left knee region / Unknown 01/20/2025 10:42 AM EDT 01/20/2025 11:25 AM EDT Comment:Pre-op diagnosis: Closed fracture of left tibial plateau with routine healing, subsequent encounter [S82.378D] us Bob Nava MD LAB MICROBIOLOGY - GENERAL O RDERABLES Final Result Performing Organization Address City/[facility]/ZIP Co de Phone Number [facility] [address] [place] [address] * Fungal Culture, Routine (01/20/2025 10:42 AM EDT) Culture No Fungal Growth at 1 Week 01/28/2025 7:34 AM EDT [facility] Swab Structure of left knee region / Unknown 01/20/2025 10:42 AM EDT 01/20/2025 11:25 AM EDT Comment:Pre-op diagnosis: Closed fracture of left tibial plateau with routine healing, subsequent encounter [F42.208D] us Bob Nava MD LAB MICROBIOLOGY - GENERAL O RDERABLES Final Result [facility] [address] [place] [address] * Anaerobic Culture (01/20/2025 10:42 AM EDT) Culture No growth at day 4 01/28/2025 7:09 AM EDT [facility] Swab Structure of left knee region / Unknown 01/20/2025 10:42 AM EDT 01/20/2025 11:25 AM EDT Comment:Pre-op diagnosis: Closed fracture of left tibial plateau with routine healing, subsequent encounter [S82.142D] us Bob Nava MD LAB MICROBIOLOGY - GENERAL O RDERABLES Final Result Performing Organization Address [facility]/ZIP Co de Phone Number [facility] [address] [place] [address] * Fungal Culture, Tissue and SYEDA (01/20/2025 10:30 AM EDT) Culture Reading Mycological 4 Weeks No Fungal Growth at 4 Weeks 02/18/2025 6:03 AM EDT [facility] SYEDA No fungal elements seen 02/18/2025 6:03 AM EDT [facility] Tissue Structure of left knee region / Unknown 01/20/2025 10:30 AM EDT 01/20/2025 11:23 AM EDT Comment:Pre-op diagnosis: Closed fracture of left tibial plateau with routine healing, subsequent encounter [S82.142D] us Bob Nava MD LAB MICROBIOLOGY - GENERAL O RDERABLES Final Result Performing Organization Address [facility] de Phone Number [facility] [address] [place] [address] * AFB Culture, Non Respiratory Source and Acid Fast Stain (01/20/2025 10:30 AM EDT) AFB Culture No Mycobacterial Growth at 6 Weeks 03/04/2025 4:02 PM EDT [facility] Acid Fast Stain No acid fast bacilli seen 03/04/2025 4:02 PM EDT [facility] Tissue Structure of left knee region / Unknown 01/20/2025 10:30 AM EDT 01/20/2025 11:23 AM EDT Comment:Pre-op diagnosis: Closed fracture of left tibial plateau with routine healing, subsequent encounter [S82.142D] us Bob Nava MD LAB MICROBIOLOGY - GENERAL O RDERABLES Final Result [facility] [address] [place] [address] * Tissue Culture and Gram Stain (01/20/2025 10:30 AM EDT) Culture No growth at day 4 2024 7:15 AM EDT [facility] Gram Stain Result No polymorphonuclear leukocytes seen 01/25/2025 7:15 AM EDT [facility] Gram Stain Result No organisms seen 01/25/2025 7:15 AM EDT [facility] Tissue Structure of left knee region / Unknown 01/20/2025 10:30 AM EDT 01/20/2025 11:23 AM EDT Comment:Pre-op diagnosis: Closed fracture of left tibial plateau with routine healing, subsequent encounter [S82.142D] us Bob Nava MD LAB MICROBIOLOGY - GENERAL O RDERABLES Final Result Performing Organization Address City/[facility]/ZIP Co de Phone Number [facility] [address] [place] [address] * Anaerobic Culture (01/20/2025 10:30 AM EDT) Culture No growth at day 4 01/28/2025 7:09 AM EDT [facility] Tissue Structure of left knee region / Unknown 01/20/2025 10:30 AM EDT 01/20/2025 11:23 AM EDT Comment:Pre-op diagnosis: Closed fracture of left tibial plateau with routine healing, subsequent encounter [S82.142D] us Bob Nava MD LAB MICROBIOLOGY - GENERAL O RDERABLES Final Result Performing Organization Address City/[facility]/ZIP Co de Phone Number [facility] [address] [place] [address] * Fungal Culture, Tissue and SYEDA (01/20/2025 10:27 AM EDT) Culture Reading Mycological 4 Weeks No Fungal Growth at 4 Weeks 02/18/2025 6:03 AM EDT [facility] SYEDA No fungal elements seen 02/18/2025 6:03 AM EDT [facility] Tissue Structure of left knee region / Unknown 01/20/2025 10:27 AM EDT 01/20/2025 11:24 AM EDT Comment:Pre-op diagnosis: Closed fracture of left tibial plateau with routine healing, subsequent encounter [S82.142D] us Bob Nava MD LAB MICROBIOLOGY - GENERAL O RDERABLES Final Result Performing Organization Address City/[facility]/ZIP Co de Phone Number [facility] [address] [place] [address] * AFB Culture, Non Respiratory Source and Acid Fast Stain (01/20/2025 10:27 AM EDT) AFB Culture No Mycobacterial Growth at 6 Weeks 03/04/2025 4:15 PM EDT [facility] Acid Fast Stain No acid fast bacilli seen 03/04/2025 4:15 PM EDT [facility] Tissue Structure of left knee region / Unknown 01/20/2025 10:27 AM EDT 01/20/2025 11:24 AM EDT Comment:Pre-op diagnosis: Closed fracture of left tibial plateau with routine healing, subsequent encounter [S82.142D] us Bob Nava MD LAB MICROBIOLOGY - GENERAL O RDERABLES Final Result Performing Organization Address City/[facility]/ZIP Co de Phone Number [facility] [address] [place] [address] * Tissue Culture and Gram Stain (01/20/2025 10:27 AM EDT) Culture No growth at day 4 2024 7:15 AM EDT [facility] Gram Stain Result No organisms seen 01/25/2025 7:15 AM EDT [facility] Gram Stain Result No polymorphonuclear leukocytes seen 01/25/2025 7:15 AM EDT [facility] Tissue Structure of left knee region / Unknown 01/20/2025 10:27 AM EDT 01/20/2025 11:24 AM EDT Comment:Pre-op diagnosis: Closed fracture of left tibial plateau with routine healing, subsequent encounter [S82.142D] Bob Nava MD LAB MICROBIOLOGY - GENERAL O RDERABLES Final Result Performing Organization Address [facility] Co de Phone Number [facility] [address] [place] [address] * Anaerobic Culture (01/20/2025 10:27 AM EDT) Culture No growth at day 4 01/28/2025 7:09 AM EDT [facility] Tissue Structure of left knee region / Unknown 01/20/2025 10:27 AM EDT 01/20/2025 11:24 AM EDT Comment:Pre-op diagnosis: Closed fracture of left tibial plateau with routine healing, subsequent encounter [S82.142D] Bob Nava MD LAB MICROBIOLOGY - GENERAL O RDERABLES Final Result Performing Organization Address [facility] Co de Phone Number [facility] [address] [place] [address] * (ABNORMAL) Creatine Kinase (CK), Total (01/20/2025 3:40 AM EDT) Creatine Kinase, Plasma 18(L) 49 - 320 U/L 01/21/2025 12:17 PM EDT [facility] Blood Venous blood specimen / Unknown Venipuncture / Unknown 01/20/2025 3:40 AM EDT 01/20/2025 3:57 AM EDT Sachin Garza MD LAB BLOOD ORDERABLES Final R esult Performing Organization Address [facility] Co de Phone Number [facility] [address] [place] [address] * Vancomycin, random (01/20/2025 3:40 AM EDT) Vancomycin, Random, Plasma 20.1 ug/mL 01/20/2025 4:51 AM EDT [facility] Blood Venous blood specimen / Unknown Venipuncture / Unknown 01/20/2025 3:40 AM EDT 01/20/2025 3:57 AM EDT Sachin Garza MD LAB BLOOD ORDERABLES Final R esult Performing Organization Address [facility] Co de Phone Number [facility] [address] [place] [address] * Protime-INR (01/20/2025 3:40 AM EDT) Prothrombin Time 13.5 12.0 - 14.3 sec LAB COAGULATION METHOD 01/20/2025 4:17 AM EDT [facility] INR 1.0 0.9 - 1.1 LAB COAGULATION METHOD 01/20/2025 4:17 AM EDT [facility] Blood Venous blood specimen / Unknown Venipuncture / Unknown 01/20/2025 3:40 AM EDT 01/20/2025 3:56 AM EDT Narrative [facility] - 01/20/2025 4:17 AM EDT [...] ORDERABLES Final R esult Performing Organization Address [facility] Co de Phone Number [facility] [address] [place] [address] * (ABNORMAL) Basic metabolic panel (01/20/2025 3:40 AM EDT) Glucose, Plasma 87 74 - 99 mg/dL 01/20/2025 4:51 AM EDT [facility] BUN, Plasma 30(H) 7 - 21 mg/dL 01/20/2025 4:51 AM EDT [facility] Creatinine, Plasma 1.59(H) 0.70 - 1.20 mg/dL 01/20/2025 4:51 AM EDT [facility] BUN/Creatinine Ratio 19 01/20/2025 4:51 AM EDT [facility] Sodium, Plasma 142 136 - 145 mmol/L 01/20/2025 4:51 AM EDT [facility] Potassium, Plasma 4.7 3.6 - 4.9 mmol/L 01/20/2025 4:51 AM EDT [facility] Chloride, Plasma 104 97 - 107 mmol/L 01/20/2025 4:51 AM EDT [facility] CO2, Plasma 26 22 - 29 mmol/L 01/20/2025 4:51 AM EDT [facility] Anion Gap 12 6 - 16 mmol/L 01/20/2025 4:51 AM EDT [facility] Total Calcium, Plasma 8.9 8.9 - 10.2 mg/dL 01/20/2025 4:51 AM EDT [facility] eGFRcr 57.7 mL/min/1.7 3m*2 01/20/2025 4:51 AM EDT [facility] Comment:Reported eGFRcr in m L/min/1.73m2 is based the CKD-EPI 2020 equation that does not use a race coefficient. Blood Venous blood specimen / Unknown Venipuncture / Unknown 01/20/2025 3:40 AM EDT 01/20/2025 3:57 AM EDT us Sachin Garza MD LAB BLOOD ORDERABLES Final R esult [facility] [address] [place] [address] * (ABNORMAL) CBC W/O Differential (01/20/2025 3:40 AM EDT) WBC Count 8.11 3.70 - 10.30 10*3/uL LAB HEMATOLOGY METHOD 01/20/2025 4:04 AM EDT [facility] RBC Count 3.64(L) 4.60 - 6.10 10*6/uL LAB HEMATOLOGY METHOD 01/20/2025 4:04 AM EDT [facility] HGB 10.7(L) 13.7 - 17.5 g/dL LAB HEMATOLOGY METHOD 01/20/2025 4:04 AM EDT [facility] HCT 34.5(L) 40.0 - 51.0 % LAB HEMATOLOGY METHOD 01/20/2025 4:04 AM EDT [facility] Platelet Count 399(H) 155 - 369 10*3/uL LAB HEMATOLOGY METHOD 01/20/2025 4:04 AM EDT [facility] MCV 95 79 - 98 fL LAB HEMATOLOGY METHOD 01/20/2025 4:04 AM EDT [facility] MCH 29.4 26.0 - 32.0 pg LAB HEMATOLOGY METHOD 01/20/2025 4:04 AM EDT [facility] MCHC 31.0 30.7 - 35.5 g/dL LAB HEMATOLOGY METHOD 01/20/2025 4:04 AM EDT [facility] RDW 13.1 11.5 - 14.5 % LAB HEMATOLOGY METHOD 01/20/2025 4:04 AM EDT [facility] MPV 9.5 8.8 - 12.5 fL LAB HEMATOLOGY METHOD 01/20/2025 4:04 AM EDT [facility] nRBC 0.0 <=0.0 per 100 WBCs LAB HEMATOLOGY METHOD 01/20/2025 4:04 AM EDT [facility] Blood Venous blood specimen / Unknown Venipuncture / Unknown 01/20/2025 3:40 AM EDT 01/20/2025 3:56 AM EDT us Sachin Garza MD LAB BLOOD ORDERABLES Final R esult [facility] [address] [place] [address] * Vancomycin, random (01/19/2025 11:48 AM EDT) Vancomycin, Random, Plasma 22.9 ug/mL 01/19/2025 1:05 PM EDT [facility] Blood Venous blood specimen / Unknown Venipuncture / Unknown 01/19/2025 11:48 AM EDT 01/19/2025 11:50 AM EDT us Sachin Garza MD LAB BLOOD ORDERABLES Final R esult [facility] [address] [place] [address] * (ABNORMAL) Basic Metabolic Panel, Plasma (01/18/2025 11:54 PM EDT) Glucose, Plasma 134(H) 74 - 99 mg/dL 01/19/2025 12:45 AM EDT [facility] BUN, Plasma 24(H) 7 - 21 mg/dL 01/19/2025 12:45 AM EDT [facility] Creatinine, Plasma 1.34(H) 0.70 - 1.20 mg/dL 01/19/2025 12:45 AM EDT [facility] BUN/Creatinine Ratio 18 01/19/2025 12:45 AM EDT [facility] Sodium, Plasma 137 136 - 145 mmol/L 01/19/2025 12:45 AM EDT [facility] Potassium, Plasma 4.7 3.6 - 4.9 mmol/L 01/19/2025 12:45 AM EDT [facility] Chloride, Plasma 100 97 - 107 mmol/L 01/19/2025 12:45 AM EDT [facility] CO2, Plasma 24 22 - 29 mmol/L 01/19/2025 12:45 AM EDT [facility] Anion Gap 13 6 - 16 mmol/L 01/19/2025 12:45 AM EDT [facility] Total Calcium, Plasma 9.3 8.9 - 10.2 mg/dL 01/19/2025 12:45 AM EDT [facility] eGFRcr 70.8 mL/min/1.7 3m*2 01/19/2025 12:45 AM EDT [facility] Comment:Reported eGFRcr in m L/min/1.73m2 is based the CKD-EPI 2020 equation that does not use a race coefficient. Blood Venous blood specimen / Unknown Venipuncture / Unknown 01/18/2025 11:54 PM EDT 01/19/2025 12:16 AM EDT us Sachin Garza MD LAB BLOOD ORDERABLES Final R esult [facility] [address] [place] [address] * (ABNORMAL) CBC W/O Differential (01/18/2025 11:54 PM EDT) WBC Count 11.85(H) 3.70 - 10.30 10*3/uL LAB HEMATOLOGY METHOD 01/19/2025 12:20 AM EDT [facility] RBC Count 3.76(L) 4.60 - 6.10 10*6/uL LAB HEMATOLOGY METHOD 01/19/2025 12:20 AM EDT [facility] HGB 11.3(L) 13.7 - 17.5 g/dL LAB HEMATOLOGY METHOD 01/19/2025 12:20 AM EDT [facility] HCT 34.2(L) 40.0 - 51.0 % LAB HEMATOLOGY METHOD 01/19/2025 12:20 AM EDT [facility] Platelet Count 394(H) 155 - 369 10*3/uL LAB HEMATOLOGY METHOD 01/19/2025 12:20 AM EDT [facility] MCV 91 79 - 98 fL LAB HEMATOLOGY METHOD 01/19/2025 12:20 AM EDT [facility] MCH 30.1 26.0 - 32.0 pg LAB HEMATOLOGY METHOD 01/19/2025 12:20 AM EDT [facility] MCHC 33.0 30.7 - 35.5 g/dL LAB HEMATOLOGY METHOD 01/19/2025 12:20 AM EDT [facility] RDW 12.9 11.5 - 14.5 % LAB HEMATOLOGY METHOD 01/19/2025 12:20 AM EDT [facility] MPV 9.5 8.8 - 12.5 fL LAB HEMATOLOGY METHOD 01/19/2025 12:20 AM EDT [facility] nRBC 0.0 <=0.0 per 100 WBCs LAB HEMATOLOGY METHOD 01/19/2025 12:20 AM EDT [facility] Blood Venous blood specimen / Unknown Venipuncture / Unknown 01/18/2025 11:54 PM EDT 01/19/2025 12:13 AM EDT Sachin Garza MD LAB BLOOD ORDERABLES Final R esult Performing Organization Address City/[facility]/ZIP Co de Phone Number [facility] [address] [place] [address] * AFB Culture, Non Respiratory Source and Acid Fast Stain (01/18/2025 3:28 PM EDT) AFB Culture No Mycobacterial Growth at 6 Weeks 03/02/2025 8:42 AM EDT [facility] Acid Fast Stain No acid fast bacilli seen 03/02/2025 8:42 AM EDT [facility] Joint Fluid Topography unknown / Unknown Non-blood Collection / Unknown 01/18/2025 3:28 PM EDT 01/18/2025 3:28 PM EDT us Sachin Garza MD LAB MICROBIOLOGY - GENERAL O RDERABLES Final Result Performing Organization Address City/[facility] Co de Phone Number [facility] [address] [place] [address] * Fungal Culture, Sterile Body Fluid (NOT CSF) and SYEDA (01/18/2025 3:28 PM EDT) Culture No Fungal Growth at 3 Weeks 02/10/2025 8:37 AM EDT [facility] SYEDA No fungal elements seen 02/10/2025 8:37 AM EDT [facility] Joint Fluid Topography unknown / Unknown Non-blood Collection / Unknown 01/18/2025 3:28 PM EDT 01/18/2025 3:28 PM EDT Sachin Garza MD LAB MICROBIOLOGY - GENERAL O RDERABLES Final Result Performing Organization Address City/[facility]/ZIP Co de Phone Number [facility] [address] [place] [address] * Anaerobic Culture (01/18/2025 3:28 PM EDT) Culture No anaerobes isolated 01/23/2025 7:50 AM EDT [facility] Joint Fluid Topography unknown / Unknown Non-blood Collection / Unknown 01/18/2025 3:28 PM EDT 01/18/2025 3:28 PM EDT Sachin Garza MD LAB MICROBIOLOGY - GENERAL O RDERABLES Final Result Performing Organization Address [facility] Co de Phone Number [facility] [address] [place] [address] * (ABNORMAL) Body Fluid Culture and Gram Stain (01/18/2025 3:28 PM EDT) Culture Heavy Growth 01/20/2025 8:34 AM EDT [facility] Culture Methicillin-Resista nt Staphylococcus aureus(AA) 01/20/2025 8:34 AM EDT [facility] Comment: For susceptibility results refer to: - [id number] The organism value for this result has been updated. These results have been appended to the previously preliminary verified report. Edited result: Previously reported as Staphylococcus aureus on 01/19/2025 at 0933 EDT. Staphylococcus aureus has been updated to reportable. Gram Stain Result Numerous Polymorphonuclear leukocytes 01/20/2025 8:34 AM EDT [facility] Gram Stain Result No organisms seen 01/20/2025 8:34 AM EDT [facility] Joint Fluid Topography unknown / Unknown Non-blood Collection / Unknown 01/18/2025 3:28 PM EDT 01/18/2025 3:28 PM EDT us Sachin Garza MD LAB MICROBIOLOGY - GENERAL O RDERABLES Final Result Performing Organization Address City/[facility]/ZIP Co de Phone Number [facility] [address] [place] [address] * Body fluid, cytospin, pathologist interpretation (01/18/2025 3:01 PM EDT) Specimen Type Joint Fluid LAB HEMATOLOGY METHOD 01/20/2025 4:29 PM EDT [facility] Specimen Source, Body Fluid Knee, Left LAB HEMATOLOGY METHOD 01/20/2025 4:29 PM EDT [facility] Clinical Diagnosis, Body Fluid Left lower extremity cellulitis LAB HEMATOLOGY METHOD 01/20/2025 4:29 PM EDT [facility] Interpretation , Body Fluid Bloody specimen Acute and chronic inflammatory cells Correlation with microbiology studies recommended A resident was involved in the service. I attest I examined the relevant preparations for the specimens and confirmed the diagnosis or interpretation. 01/20/2025 4:29 PM EDT [facility] Pathologist Signature, Body Fluid 01/20/2025 4:29 PM EDT [facility] Comment:Reviewed by: Stephanie conti MD LAB CP ASR DISCLAIMER Yes 01/20/2025 4:29 PM EDT [facility] Joint Fluid Structure of left knee region / Unknown 01/18/2025 3:01 PM EDT 01/18/2025 3:28 PM EDT us Sachin Garza MD LAB BODY FLUIDS AND STOOLS O RDERABLES Final Result Performing Organization Address City/[facility]/ZIP Co de Phone Number [facility] [address] [place] [address] * Joint Fluid Crystals (01/18/2025 3:01 PM EDT) Crystals, Joint Fluid No Crystals Seen No Crystals Present 01/18/2025 5:28 PM EDT [facility] Joint Fluid Structure of left knee region / Unknown 01/18/2025 3:01 PM EDT 01/18/2025 3:28 PM EDT us Sachin Garza MD LAB BODY FLUIDS AND STOOLS O RDERABLES Final Result [facility] [address] [place] [address] * (ABNORMAL) Body Fluid Cell Count w/ Diff (01/18/2025 3:01 PM EDT) Color, Body fluid Red LAB HEMATOLOGY METHOD 01/18/2025 11:05 PM EDT [facility] Appearance, Body fluid Cloudy(A) LAB HEMATOLOGY METHOD 01/18/2025 11:05 PM EDT [facility] Volume, Body fluid 3.5 cc LAB HEMATOLOGY METHOD 01/18/2025 11:05 PM EDT [facility] Fluid Container Specimen received in EDTA tube LAB HEMATOLOGY METHOD 01/18/2025 11:05 PM EDT [facility] Red Blood Cell Count, Body fluid 299,000 uL LAB HEMATOLOGY METHOD 01/18/2025 11:05 PM EDT [facility] Total Nucleated Cell Count, Body fluid 873 uL LAB HEMATOLOGY METHOD 01/18/2025 11:05 PM EDT [facility] Neutrophils %, Body fluid 17 % LAB HEMATOLOGY METHOD 01/18/2025 11:05 PM EDT [facility] Lymphocytes %, Body fluid 55 % LAB HEMATOLOGY METHOD 01/18/2025 11:05 PM EDT [facility] Monocytes/Macro phages %, Body fluid 27 % LAB HEMATOLOGY METHOD 01/18/2025 11:05 PM EDT [facility] Eosinophils %, Body fluid 1 % LAB HEMATOLOGY METHOD 01/18/2025 11:05 PM EDT [facility] Lining/Mesothel ial Cells %, Body fluid 0 % LAB HEMATOLOGY METHOD 01/18/2025 11:05 PM EDT [facility] Neutrophils Absolute (PMN), Body fluid 148 uL LAB HEMATOLOGY METHOD 01/18/2025 11:05 PM EDT [facility] Lymphocytes Absolute, Body fluid 480 uL LAB HEMATOLOGY METHOD 01/18/2025 11:05 PM EDT [facility] Monocytes/Macro phages Absolute, Body fluid 236 uL LAB HEMATOLOGY METHOD 01/18/2025 11:05 PM EDT [facility] Eosinophils Absolute, Body fluid 9 uL LAB HEMATOLOGY METHOD 01/18/2025 11:05 PM EDT [facility] Basophils Absolute, Body fluid 0 uL LAB HEMATOLOGY METHOD 01/18/2025 11:05 PM EDT [facility] Lining/Mesothel ial Cells Absolute, Body fluid 0 uL LAB HEMATOLOGY METHOD 01/18/2025 11:05 PM EDT [facility] Comment, Body fluid None LAB HEMATOLOGY METHOD 01/18/2025 11:05 PM EDT [facility] Comment:This is an appended report. These results have been appended to a previously preliminary verified report. Basophils %, Body fluid 0 % LAB HEMATOLOGY METHOD 01/18/2025 11:05 PM EDT [facility] Joint Fluid Structure of left knee region / Unknown 01/18/2025 3:01 PM EDT 01/18/2025 3:28 PM EDT Sachin Garza MD LAB BODY FLUIDS AND STOOLS ORDERABLES NO SPECIMEN TYPE/SOURCE Final Result Performing Organization Address City/[facility]/ZIP Co de Phone Number [facility] [address] [place] [address] * Body Fluid Culture and Gram Stain (01/18/2025 12:17 PM EDT) Culture No growth at day 4 2024 11:06 AM EDT [facility] Gram Stain Result No polymorphonuclear leukocytes seen 01/21/2025 11:06 AM EDT [facility] Gram Stain Result No organisms seen 01/21/2025 11:06 AM EDT [facility] Joint Fluid Synovial fluid specimen / Unknown Non-blood Collection / Unknown 01/18/2025 12:17 PM EDT 01/18/2025 3:24 PM EDT Comment:Pre-op diagnosis: Cellulitis of left lower extremity [L03.116] us Dwaine Das DO LAB MICROBIOLOGY - GENERAL ORDERABLES Final Result Performing Organization Address City/[facility]/ZIP Co de Phone Number [facility] [address] [place] [address] * Joint Infection Panel by PCR (01/18/2025 12:17 PM EDT) Anaerococcus prevotii/vaginalis PCR Result Not Detected Not Detected 01/18/2025 5:28 PM EDT [facility] Clostridium perfringens PCR Result Not Detected Not Detected 01/18/2025 5:28 PM EDT [facility] Cutibacterium avidum/granulosum PCR Result Not Detected Not Detected 01/18/2025 5:28 PM EDT [facility] Enterococcus faecalis PCR Result Not Detected Not Detected 01/18/2025 5:28 PM EDT [facility] Enterococcus faecium PCR Result Not Detected Not Detected 01/18/2025 5:28 PM EDT [facility] Finegoldia magna PCR Result Not Detected Not Detected 01/18/2025 5:28 PM EDT [facility] Parvimonas micra PCR Result Not Detected Not Detected 01/18/2025 5:28 PM EDT [facility] Peptoniphilus PCR Result Not Detected Not Detected 01/18/2025 5:28 PM EDT [facility] Peptostreptococcus anaerobius PCR Result Not Detected Not Detected 01/18/2025 5:28 PM EDT [facility] Staphylococcus aureus PCR Result Not Detected Not Detected 01/18/2025 5:28 PM EDT [facility] Staphylococcus lugdunensis PCR Result Not Detected Not Detected 01/18/2025 5:28 PM EDT [facility] Streptococcus spp PCR Result Not Detected Not Detected 01/18/2025 5:28 PM EDT [facility] Streptococcus agalactiae PCR Result Not Detected Not Detected 01/18/2025 5:28 PM EDT [facility] Streptococcus pneumoniae PCR Result Not Detected Not Detected 01/18/2025 5:28 PM EDT [facility] Streptococcus pyogenes PCR Result Not Detected Not Detected 01/18/2025 5:28 PM EDT [facility] Bacteroides fragilis PCR Result Not Detected Not Detected 01/18/2025 5:28 PM EDT [facility] Citrobacter PCR Result Not Detected Not Detected 01/18/2025 5:28 PM EDT [facility] Enterobacter cloacae complex PCR Result Not Detected Not Detected 01/18/2025 5:28 PM EDT [facility] Escherichia coli PCR Result Not Detected Not Detected 01/18/2025 5:28 PM EDT [facility] Haemophilus influenzae PCR Result Not Detected Not Detected 01/18/2025 5:28 PM EDT [facility] Kingella kingae PCR Result Not Detected Not Detected 01/18/2025 5:28 PM EDT [facility] Klebsiella aerogenes PCR Result Not Detected Not Detected 01/18/2025 5:28 PM EDT [facility] Klebsiella pneumoniae group PCR Result Not Detected Not Detected 01/18/2025 5:28 PM EDT [facility] Morganella morganii PCR Result Not Detected Not Detected 01/18/2025 5:28 PM EDT [facility] Neisseria gonorrhoeae PCR Result Not Detected Not Detected 01/18/2025 5:28 PM EDT [facility] Proteus spp PCR Result Not Detected Not Detected 01/18/2025 5:28 PM EDT [facility] Pseudomonas aeruginosa PCR Result Not Detected Not Detected 01/18/2025 5:28 PM EDT [facility] Salmonella spp PCR Result Not Detected Not Detected 01/18/2025 5:28 PM EDT [facility] Serratia marcescens PCR Result Not Detected Not Detected 01/18/2025 5:28 PM EDT [facility] Nelda PCR Result Not Detected Not Detected 01/18/2025 5:28 PM EDT [facility] Nelda albicans PCR Result Not Detected Not Detected 01/18/2025 5:28 PM EDT [facility] CTXM PCR Result Not Detected Not Detected 01/18/2025 5:28 PM EDT [facility] IMP PCR Result Not Detected Not Detected 01/18/2025 5:28 PM EDT [facility] KPC PCR Result Not Detected Not Detected 01/18/2025 5:28 PM EDT [facility] mecA/C and MREJ (MRSA) PCR Result Not Detected Not Detected 01/18/2025 5:28 PM EDT [facility] NDM PCR Result Not Detected Not Detected 01/18/2025 5:28 PM EDT [facility] OXA-48-like PCR Result Not Detected Not Detected 01/18/2025 5:28 PM EDT [facility] Jarret/B PCR Result Not Detected Not Detected 01/18/2025 5:28 PM EDT [facility] VIM PCR Result Not Detected Not Detected 01/18/2025 5:28 PM EDT [facility] Joint Fluid Synovial fluid specimen / Unknown Non-blood Collection / Unknown 01/18/2025 12:17 PM EDT 01/18/2025 3:24 PM EDT Narrative [facility] - 01/18/2025 5:28 PM EDT [...] obtain isolates for antimicrobial susceptibility testing and eyetok Joint Infection Panel results should be used in conjunction with culture results for the determination of susceptibility or resistance. us Sachin Garza MD LAB MICROBIOLOGY - GENERAL O RDERABLES Final Result [facility] [address] [place] [address] * Fungal Culture, Tissue and SYEDA (01/18/2025 10:00 AM EDT) Culture Reading Mycological 4 Weeks No Fungal Growth at 4 Weeks 02/16/2025 8:50 AM EDT [facility] SYEDA No fungal elements seen 02/16/2025 8:50 AM EDT [facility] Tissue Topography unknown / Unknown 01/18/2025 10:00 AM EDT 01/18/2025 3:26 PM EDT Comment:Pre-op diagnosis: Cellulitis of left lower extremity [L03.116] us Dwaine Das DO LAB MICROBIOLOGY - GENERAL ORDERABLES Final Result [facility] [address] [place] [address] * AFB Culture, Non Respiratory Source and Acid Fast Stain (01/18/2025 10:00 AM EDT) AFB Culture No Mycobacterial Growth at 6 Weeks 03/02/2025 8:38 AM EDT [facility] Acid Fast Stain No acid fast bacilli seen 03/02/2025 8:38 AM EDT [facility] Tissue Topography unknown / Unknown 01/18/2025 10:00 AM EDT 01/18/2025 3:26 PM EDT Comment:Pre-op diagnosis: Cellulitis of left lower extremity [L03.116] Dwaine Das DO LAB MICROBIOLOGY - GENERAL ORDERABLES Final Result [facility] [address] [place] [address] * (ABNORMAL) Tissue Culture and Gram Stain (01/18/2025 10:00 AM EDT) Culture Heavy Growth 01/20/2025 8:34 AM EDT [facility] Culture Methicillin-Resista nt Staphylococcus aureus(AA) JOVANI 01/20/2025 8:34 AM EDT [facility] Comment: The organism value for this result has been updated. These results have been appended to the previously preliminary verified report. Edited result: Previously reported as Staphylococcus aureus on 01/19/2025 at 0914 EDT. Staphylococcus aureus has been updated to reportable. Gram Stain Result Numerous Polymorphonuclear leukocytes(A) 01/20/2025 8:34 AM EDT [facility] Gram Stain Result Rare Gram positive cocci in clusters(A) 01/20/2025 8:34 AM EDT [facility] Tissue Topography unknown / Unknown [...] aureus Vancomycin JOVANI 1 ug/ml: Susceptible [facility] - GENERAL ORDERABLES Final Result Performing Organization Address City/[facility]/ZIP Co de Phone Number [facility] [address] [place] [address] * Anaerobic Culture (01/18/2025 10:00 AM EDT) Culture No anaerobes isolated 01/23/2025 7:50 AM EDT [facility] Tissue Topography unknown / Unknown 01/18/2025 10:00 AM EDT 01/18/2025 3:26 PM EDT Comment:Pre-op diagnosis: Cellulitis of left lower extremity [L03.116] [facility] [place] LAB MICROBIOLOGY - GENERAL ORDERABLES Final Result Performing Organization Address [facility]/ZIP Co de Phone Number [facility] [address] [place] [address] * Body fluid, cytospin, pathologist interpretation (01/18/2025 9:57 AM EDT) Specimen Type Cyst Fluid LAB HEMATOLOGY METHOD 01/20/2025 4:28 PM EDT [facility] Specimen Source, Body Fluid Other (specify site) LAB HEMATOLOGY METHOD 01/20/2025 4:28 PM EDT [facility] Clinical Diagnosis, Body Fluid Left lower extremity cyst fluid LAB HEMATOLOGY METHOD 01/20/2025 4:28 PM EDT [facility] Interpretation , Body Fluid No evidence of malignancy Bloody specimen Acute inflammatory cells Correlation with microbiology studies recommended A resident was involved in the service. I attest I examined the relevant preparations for the specimens and confirmed the diagnosis or interpretation. 01/20/2025 4:28 PM EDT [facility] Pathologist Signature, Body Fluid 01/20/2025 4:28 PM EDT [facility] Comment:Reviewed by: Stephanie conti MD LAB CP ASR DISCLAIMER Yes 01/20/2025 4:28 PM EDT [facility] Cyst Fluid Topography unknown / Unknown 01/18/2025 9:57 AM EDT 01/18/2025 3:19 PM EDT Dwaine Das DO LAB BODY FLUIDS AND STOOLS ORDERABLES Final Result [facility] [address] [place] [address] * (ABNORMAL) Body Fluid Cell Count w/ Diff (01/18/2025 9:57 AM EDT) Color, Body fluid Red LAB HEMATOLOGY METHOD 01/18/2025 7:13 PM EDT [facility] Appearance, Body fluid Cloudy(A) LAB HEMATOLOGY METHOD 01/18/2025 7:13 PM EDT [facility] Volume, Body fluid 10.0 cc LAB HEMATOLOGY METHOD 01/18/2025 7:13 PM EDT [facility] Fluid Container Specimen received in miscellaneous container LAB HEMATOLOGY METHOD 01/18/2025 7:13 PM EDT [facility] Red Blood Cell Count, Body fluid 240,000 uL LAB HEMATOLOGY METHOD 01/18/2025 7:13 PM EDT [facility] Comment:Clot present, may af fect results. Test performed by manual method. Total Nucleated Cell Count, Body fluid 83,500 uL LAB HEMATOLOGY METHOD 01/18/2025 7:13 PM EDT [facility] Comment:Clot present, may af fect results. Test performed by manual method. Neutrophils %, Body fluid 98 % LAB HEMATOLOGY METHOD 01/18/2025 7:13 PM EDT [facility] Lymphocytes %, Body fluid 2 % LAB HEMATOLOGY METHOD 01/18/2025 7:13 PM EDT [facility] Monocytes/Macr ophages %, Body fluid 0 % LAB HEMATOLOGY METHOD 01/18/2025 7:13 PM EDT [facility] Eosinophils %, Body fluid 0 % LAB HEMATOLOGY METHOD 01/18/2025 7:13 PM EDT [facility] Lining/Mesothe lial Cells %, Body fluid 0 % LAB HEMATOLOGY METHOD 01/18/2025 7:13 PM EDT [facility] Neutrophils Absolute (PMN), Body fluid 81,830 uL LAB HEMATOLOGY METHOD 01/18/2025 7:13 PM EDT [facility] Lymphocytes Absolute, Body fluid 1,670 uL LAB HEMATOLOGY METHOD 01/18/2025 7:13 PM EDT [facility] Monocytes/Macr ophages Absolute, Body fluid 0 uL LAB HEMATOLOGY METHOD 01/18/2025 7:13 PM EDT [facility] Eosinophils Absolute, Body fluid 0 uL LAB HEMATOLOGY METHOD 01/18/2025 7:13 PM EDT [facility] Basophils Absolute, Body fluid 0 uL LAB HEMATOLOGY METHOD 01/18/2025 7:13 PM EDT [facility] Lining/Mesothe lial Cells Absolute, Body fluid 0 uL LAB HEMATOLOGY METHOD 01/18/2025 7:13 PM EDT [facility] Comment, Body fluid Bacteria seen. LAB HEMATOLOGY METHOD 01/18/2025 7:13 PM EDT [facility] Basophils %, Body fluid 0 % LAB HEMATOLOGY METHOD 01/18/2025 7:13 PM EDT [facility] Cyst Fluid Topography unknown / Unknown 01/18/2025 9:57 AM EDT 01/18/2025 3:19 PM EDT Comment:Pre-op diagnosis: Cellulitis of left lower extremity [L03.116] Dwaine Das DO LAB BODY FLUIDS AND STOOLS ORDERABLES NO SPECIMEN TYPE/SOURCE Final Result [facility] [address] [place] [address] * Fungal Culture, Sterile Body Fluid (NOT CSF) and SYEDA (01/18/2025 9:57 AM EDT) Culture No Fungal Growth at 3 Weeks 02/10/2025 8:37 AM EDT [facility] SYEDA No fungal elements seen 02/10/2025 8:37 AM EDT [facility] Cyst Fluid Topography unknown / Unknown 01/18/2025 9:57 AM EDT 01/18/2025 3:26 PM EDT Comment:Pre-op diagnosis: Cellulitis of left lower extremity [L03.116] [facility] MICROBIOLOGY - GENERAL ORDERABLES Final Result Performing Organization Address City/[facility]/ZIP Co de Phone Number [facility] [address] [place] [address] * AFB Culture, Non Respiratory Source and Acid Fast Stain (01/18/2025 9:57 AM EDT) AFB Culture No Mycobacterial Growth at 6 Weeks 03/02/2025 8:43 AM EDT [facility] Acid Fast Stain No acid fast bacilli seen 03/02/2025 8:43 AM EDT [facility] Cyst Fluid Topography unknown / Unknown 01/18/2025 9:57 AM EDT 01/18/2025 3:26 PM EDT Comment:Pre-op diagnosis: Cellulitis of left lower extremity [L03.116] [facility] LAB MICROBIOLOGY - GENERAL ORDERABLES Final Result Performing Organization Address City/[facility] Co de Phone Number [facility] [address] [place] [address] * (ABNORMAL) Body Fluid Culture and Gram Stain (01/18/2025 9:57 AM EDT) Culture Heavy Growth 01/20/2025 8:34 AM EDT [facility] Culture Methicillin-Resista nt Staphylococcus aureus(AA) 01/20/2025 8:34 AM EDT [facility] Comment: For susceptibility results refer to: - [id number] The organism value for this result has been updated. These results have been appended to the previously preliminary verified report. Edited result: Previously reported as Staphylococcus aureus on 01/19/2025 at 0916 EDT. Staphylococcus aureus has been updated to reportable. Gram Stain Result Numerous Polymorphonuclear leukocytes(A) 01/20/2025 8:34 AM EDT [facility] Gram Stain Result Moderate Gram positive cocci in clusters(A) 01/20/2025 8:34 AM EDT [facility] Cyst Fluid Topography unknown / Unknown 01/18/2025 9:57 AM EDT 01/18/2025 3:26 PM EDT Comment:Pre-op diagnosis: Cellulitis of left lower extremity [L03.116] [facility] LAB MICROBIOLOGY - GENERAL ORDERABLES Final Result Performing Organization Address City/[facility]/ZIP Co de Phone Number [facility] [address] [place] [address] * Anaerobic Culture (01/18/2025 9:57 AM EDT) Culture No anaerobes isolated 01/23/2025 7:50 AM EDT [facility] Cyst Fluid Topography unknown / Unknown 01/18/2025 9:57 AM EDT 01/18/2025 3:26 PM EDT Comment:Pre-op diagnosis: Cellulitis of left lower extremity [L03.116] [facility] MICROBIOLOGY - GENERAL ORDERABLES Final Result Performing Organization Address City/[facility]/ZIP Co de Phone Number [facility] [address] [place] [address] * Methicillin Resistant Staphylococcus aureus (MRSA) by PCR (01/18/2025 7:43 AM EDT) Methicillin Resistant Staphylococcus aureus (MRSA) by PCR Not Detected Not Detected 01/18/2025 9:36 AM EDT [facility] Swab Both anterior nares / Unknown Non-blood Collection / Unknown 01/18/2025 7:43 AM EDT 01/18/2025 8:19 AM EDT Narrative [facility] - 01/18/2025 9:36 AM EDT [...] MICROBIOLOGY - GENERAL O RDERABLES Final Result [facility] [address] [place] [address] * (ABNORMAL) Basic metabolic panel (01/18/2025 12:18 AM EDT) Glucose, Plasma 105(H) 74 - 99 mg/dL 01/18/2025 1:30 AM EDT [facility] BUN, Plasma 14 7 - 21 mg/dL 01/18/2025 1:30 AM EDT [facility] Creatinine, Plasma 0.80 0.70 - 1.20 mg/dL 01/18/2025 1:30 AM EDT [facility] BUN/Creatinine Ratio 18 01/18/2025 1:30 AM EDT [facility] Sodium, Plasma 137 136 - 145 mmol/L 01/18/2025 1:30 AM EDT [facility] Potassium, Plasma 4.3 3.6 - 4.9 mmol/L 01/18/2025 1:30 AM EDT [facility] Chloride, Plasma 100 97 - 107 mmol/L 01/18/2025 1:30 AM EDT [facility] CO2, Plasma 26 22 - 29 mmol/L 01/18/2025 1:30 AM EDT [facility] Anion Gap 11 6 - 16 mmol/L 01/18/2025 1:30 AM EDT [facility] Total Calcium, Plasma 9.0 8.9 - 10.2 mg/dL 01/18/2025 1:30 AM EDT [facility] eGFRcr 118.4 mL/min/1.7 3m*2 01/18/2025 1:30 AM EDT [facility] Comment:Reported eGFRcr in m L/min/1.73m2 is based the CKD-EPI 2020 equation that does not use a race coefficient. Blood Venous blood specimen / Unknown Venipuncture / Unknown 01/18/2025 12:18 AM EDT 01/18/2025 12:27 AM EDT us Sachin Garza MD LAB BLOOD ORDERABLES Final R esult [facility] [address] [place] [address] * (ABNORMAL) CBC W/O Differential (01/18/2025 12:18 AM EDT) WBC Count 8.77 3.70 - 10.30 10*3/uL LAB HEMATOLOGY METHOD 01/18/2025 12:36 AM EDT [facility] RBC Count 3.94(L) 4.60 - 6.10 10*6/uL LAB HEMATOLOGY METHOD 01/18/2025 12:36 AM EDT [facility] HGB 11.7(L) 13.7 - 17.5 g/dL LAB HEMATOLOGY METHOD 01/18/2025 12:36 AM EDT [facility] HCT 37.1(L) 40.0 - 51.0 % LAB HEMATOLOGY METHOD 01/18/2025 12:36 AM EDT [facility] Platelet Count 347 155 - 369 10*3/uL LAB HEMATOLOGY METHOD 01/18/2025 12:36 AM EDT [facility] MCV 94 79 - 98 fL LAB HEMATOLOGY METHOD 01/18/2025 12:36 AM EDT [facility] MCH 29.7 26.0 - 32.0 pg LAB HEMATOLOGY METHOD 01/18/2025 12:36 AM EDT [facility] MCHC 31.5 30.7 - 35.5 g/dL LAB HEMATOLOGY METHOD 01/18/2025 12:36 AM EDT [facility] RDW 13.1 11.5 - 14.5 % LAB HEMATOLOGY METHOD 01/18/2025 12:36 AM EDT [facility] MPV 9.5 8.8 - 12.5 fL LAB HEMATOLOGY METHOD 01/18/2025 12:36 AM EDT [facility] nRBC 0.0 <=0.0 per 100 WBCs LAB HEMATOLOGY METHOD 01/18/2025 12:36 AM EDT [facility] Blood Venous blood specimen / Unknown Venipuncture / Unknown 01/18/2025 12:18 AM EDT 01/18/2025 12:29 AM EDT Sachin Garza MD LAB BLOOD ORDERABLES Final R esult Performing Organization Address [facility] de Phone Number [facility] [address] [place] [address] * Vancomycin, Peak, Plasma Please draw ~2 hours after 1000 dose of vancomycin on Monday finishes infusing. Consider obtaining level via peripheral stick. If peripheral stick is not feasible, please ensure that line is flushed well prior to drawing l... (01/17/2025 2:03 PM EDT) Pathologist [facility] Vancomycin, Peak, Plasma 22.0 20.0 - 40.0 ug/mL 01/17/2025 3:01 PM EDT [facility] Blood Venous blood specimen / Unknown Venipuncture / Unknown 01/17/2025 2:03 PM EDT 01/17/2025 2:32 PM EDT Narrative [facility] - 01/17/2025 3:01 PM EDT Therapeutic Peak level: 20-40ug/mL Supra-therapeutic Peak level: >40 ug/mL Sachin Garza MD LAB BLOOD ORDERABLES Final R esult Performing Organization Address [facility] Phone Number [facility] [address] [place] [address] * Vancomycin, Trough, Plasma Please draw ~30 minutes prior to dose due at 1000 on Monday. Please do NOT hold dose awaiting level to return. Consider obtaining level via peripheral stick. If peripheral stick is not feasible, please ensure that line ... (01/17/2025 9:53 AM EDT) Vancomycin, Trough, Plasma 12.5 10.0 - 20.0 ug/mL 01/17/2025 10:24 AM EDT [facility] Blood Venous blood specimen / Unknown Venipuncture / Unknown 01/17/2025 9:53 AM EDT 01/17/2025 9:57 AM EDT Narrative [facility] - 01/17/2025 10:24 AM EDT Therapeutic Trough level: 10-20ug/mL Supra-therapeutic Trough level: >20 ug/mL us Sachin Garza MD LAB BLOOD ORDERABLES Final R esult [facility] [address] [place] [address] * (ABNORMAL) Basic metabolic panel (01/17/2025 4:05 AM EDT) Glucose, Plasma 117(H) 74 - 99 mg/dL 01/17/2025 5:16 AM EDT [facility] BUN, Plasma 13 7 - 21 mg/dL 01/17/2025 5:16 AM EDT [facility] Creatinine, Plasma 0.75 0.70 - 1.20 mg/dL 01/17/2025 5:16 AM EDT [facility] BUN/Creatinine Ratio 17 01/17/2025 5:16 AM EDT [facility] Sodium, Plasma 135(L) 136 - 145 mmol/L 01/17/2025 5:16 AM EDT [facility] Potassium, Plasma 4.5 3.6 - 4.9 mmol/L 01/17/2025 5:16 AM EDT [facility] Chloride, Plasma 100 97 - 107 mmol/L 01/17/2025 5:16 AM EDT [facility] CO2, Plasma 25 22 - 29 mmol/L 01/17/2025 5:16 AM EDT [facility] Anion Gap 10 6 - 16 mmol/L 01/17/2025 5:16 AM EDT [facility] Total Calcium, Plasma 9.1 8.9 - 10.2 mg/dL 01/17/2025 5:16 AM EDT [facility] eGFRcr 120.7 mL/min/1.7 3m*2 01/17/2025 5:16 AM EDT [facility] Comment:Reported eGFRcr in m L/min/1.73m2 is based the CKD-EPI 2020 equation that does not use a race coefficient. Blood Venous blood specimen / Unknown Venipuncture / Unknown 01/17/2025 4:05 AM EDT 01/17/2025 4:35 AM EDT Sachin Garza MD LAB BLOOD ORDERABLES Final R esult [facility] [address] [place] [address] * [place] Extremity Limited MSK or Soft [...] - 99 mg/dL 01/16/2025 5:15 AM EDT [facility] BUN, Plasma 12 7 - 21 mg/dL 01/16/2025 5:15 AM EDT [facility] Creatinine, Plasma 0.66(L) 0.70 - 1.20 mg/dL 01/16/2025 5:15 AM EDT [facility] BUN/Creatinine Ratio 18 01/16/2025 5:15 AM EDT [facility] Sodium, Plasma 136 136 - 145 mmol/L 01/16/2025 5:15 AM EDT [facility] Potassium, Plasma 4.5 3.6 - 4.9 mmol/L 01/16/2025 5:15 AM EDT [facility] Chloride, Plasma 100 97 - 107 mmol/L 01/16/2025 5:15 AM EDT [facility] CO2, Plasma 26 22 - 29 mmol/L 01/16/2025 5:15 AM EDT [facility] Anion Gap 10 6 - 16 mmol/L 01/16/2025 5:15 AM EDT [facility] Total Calcium, Plasma 8.8(L) 8.9 - 10.2 mg/dL 01/16/2025 5:15 AM EDT [facility] eGFRcr 125.4 mL/min/1.7 3m*2 01/16/2025 5:15 AM EDT [facility] Comment:Reported eGFRcr in m L/min/1.73m2 is based the CKD-EPI 2020 equation that does not use a race coefficient. Blood Venous blood specimen / Unknown Venipuncture / Unknown 01/16/2025 4:31 AM EDT 01/16/2025 4:46 AM EDT us Jeffrey Matute MD LAB BLOOD ORDERABLES Final Re sult Performing Organization Address [facility] Co de Phone Number [facility] [address] [place] [address] * Prothrombin Time/INR (01/16/2025 4:31 AM EDT) Prothrombin Time 12.9 12.0 - 14.3 sec 01/16/2025 4:46 AM EDT [facility] INR 1.0 0.9 - 1.1 01/16/2025 4:46 AM EDT [facility] Blood Venous blood specimen / Unknown Venipuncture / Unknown 01/16/2025 4:31 AM EDT 01/16/2025 4:33 AM EDT Narrative [facility] - 01/16/2025 4:46 AM EDT [...] ORDERABLES Final Re sult Performing Organization Address [facility] Co de Phone Number [facility] [address] [place] [address] * (ABNORMAL) CBC W/O Differential (01/16/2025 4:31 AM EDT) WBC Count 17.78(H) 3.70 - 10.30 10*3/uL LAB HEMATOLOGY METHOD 01/16/2025 4:36 AM EDT [facility] RBC Count 4.14(L) 4.60 - 6.10 10*6/uL LAB HEMATOLOGY METHOD 01/16/2025 4:36 AM EDT [facility] HGB 12.4(L) 13.7 - 17.5 g/dL LAB HEMATOLOGY METHOD 01/16/2025 4:36 AM EDT [facility] HCT 37.6(L) 40.0 - 51.0 % LAB HEMATOLOGY METHOD 01/16/2025 4:36 AM EDT [facility] Platelet Count 359 155 - 369 10*3/uL LAB HEMATOLOGY METHOD 01/16/2025 4:36 AM EDT [facility] MCV 91 79 - 98 fL LAB HEMATOLOGY METHOD 01/16/2025 4:36 AM EDT [facility] MCH 30.0 26.0 - 32.0 pg LAB HEMATOLOGY METHOD 01/16/2025 4:36 AM EDT [facility] MCHC 33.0 30.7 - 35.5 g/dL LAB HEMATOLOGY METHOD 01/16/2025 4:36 AM EDT [facility] RDW 13.2 11.5 - 14.5 % LAB HEMATOLOGY METHOD 01/16/2025 4:36 AM EDT [facility] MPV 9.3 8.8 - 12.5 fL LAB HEMATOLOGY METHOD 01/16/2025 4:36 AM EDT [facility] nRBC 0.0 <=0.0 per 100 WBCs LAB HEMATOLOGY METHOD 01/16/2025 4:36 AM EDT [facility] Blood Venous blood specimen / Unknown Venipuncture / Unknown 01/16/2025 4:31 AM EDT 01/16/2025 4:33 AM EDT us Jeffrey Matute MD LAB BLOOD ORDERABLES Final Re sult [facility] [address] [place] [address] * CT Tibia Fibula Left w IV [...] at day 5 01/21/2025 2:02 AM EDT [facility] Blood Venous blood specimen / Unknown Venipuncture / Unknown 01/16/2025 12:24 AM EDT 01/16/2025 1:12 AM EDT Narrative [facility] - 01/21/2025 2:02 AM EDT Low blood volume submitted, results may be compromised Gus Vigil APRN LAB MICROBIOLOGY - GENER AL ORDERABLES Final Result [facility] [address] [place] [address] * XR Chest 1 View (01/15/2025 11:21 [...] signing this report, I, the attending physician, pepeat I have personally reviewed the images/data for [...] MD on 01/15/2025 11:40 PM Gus Vigil TOUR CONSULTANT IMG XR PROCEDURES Final Result * Type [...] ORDERA BLES Final Result Performing Organization Address City/[facility]/ZIP Co de Phone Number BLOOD BANK [address] [place] [address], * ECG Adult (01/15/2025 10:46 PM EDT) EKG DIAGNOSIS CLASS Normal MUSE ECG Ventricular Rate 92 BPM MUSE ECG Atrial Rate 92 BPM MUSE ECG DE Interval 122 ms MUSE ECG QRSD Interval 102 ms MUSE ECG QT Interval 350 ms MUSE ECG QTC Interval 432 ms MUSE ECG P [place] 56 degrees MUSE ECG R [place] 44 degrees MUSE ECG T Wave [place] 57 degrees MUSE ECG Diagnosis Normal sinus rhythm MUSE ECG Diagnosis Normal ECG MUSE ECG Diagnosis MUSE ECG Diagnosis Confirmed by Richard Mccracken ([id number]) on 01/16/2025 8:55:10 PM MUSE ECG 01/15/2025 10:4 6 PM EDT 01/16/2025 8:55 PM EDT Ye Navarro MD ECG ORDERABLES Final Resu lt Performing Organization Address City/[facility]/ZIP Co de Phone Number MUSE ECG * Blood Culture (Aerobic/Anaerobet Set) (01/15/2025 10:11 PM EDT) Culture No growth at day 5 01/20/2025 11:01 PM EDT [facility] Blood Structure of antecubital vein / Unknown Venipuncture / Unknown 01/15/2025 10:11 PM EDT 01/15/2025 10:19 PM EDT Narrative [facility] - 01/20/2025 11:01 PM EDT Low blood volume submitted, results may be compromised Gus Vigil APRN LAB MICROBIOLOGY - GENER AL ORDERABLES Final Result Performing Organization Address City/[facility]/ZIP Co de Phone Number [facility] [address] [place] [address] * (ABNORMAL) Sed rate, automated (01/15/2025 10:11 PM EDT) Sedimentation Rate 46(H) <15 mm/hr 2024 10:34 PM EDT [facility] Blood Venous blood specimen / Unknown Venipuncture / Unknown 01/15/2025 10:11 PM EDT 01/15/2025 10:12 PM EDT [facility] LAB BLOOD ORDERABLES Fin al Result Performing Organization Address [facility] Co de Phone Number [facility] [address] [place] [address] * (ABNORMAL) C-Reactive protein (01/15/2025 10:11 PM EDT) Pathologist [facility] CRP, Plasma 91.9(H) <=8.0 mg/L 01/15/2025 10:32 PM EDT [facility] Blood Venous blood specimen / Unknown Venipuncture / Unknown 01/15/2025 10:11 PM EDT 01/15/2025 10:12 PM EDT Narrative [facility] - 01/15/2025 10:32 PM EDT This CRP test is appropriate for assessment of infection, systemic inflammation and/or tissue injury. To assess cardiovascular disease risk order high sensitivity CRP (CRPH). [facility] Rodger Vigil TOUR CONSULTANT LAB BLOOD ORDERABLES Fin al Result Performing Organization Address [facility] Co de Phone Number [facility] [address] [place] [address] * (ABNORMAL) Blood gas panel, venous (01/15/2025 10:11 PM EDT) pH, Venous 7.39 7.32 - 7.43 LAB HEMATOLOGY METHOD 01/15/2025 10:14 PM EDT [facility] pCO2, Venous 47 40 - 55 mmHg LAB HEMATOLOGY METHOD 01/15/2025 10:14 PM EDT [facility] pO2, Venous 34 25 - 40 mmHg LAB HEMATOLOGY METHOD 01/15/2025 10:14 PM EDT [facility] SO2, Measured, Venous 68 65 - 80 % LAB HEMATOLOGY METHOD 01/15/2025 10:14 PM EDT [facility] Base Excess, Venous 2.8 -2.0 - 3.0 mmol/L LAB HEMATOLOGY METHOD 01/15/2025 10:14 PM EDT [facility] Bicarbonate, Calculated, Venous 29(H) 22 - 26 mmol/L LAB HEMATOLOGY METHOD 01/15/2025 10:14 PM EDT [facility] Hematocrit, Whole Blood 40.4 40.0 - 51.0 % LAB HEMATOLOGY METHOD 01/15/2025 10:14 PM EDT [facility] Sodium, Whole Blood 135(L) 136 - 145 mmol/L LAB HEMATOLOGY METHOD 01/15/2025 10:14 PM EDT [facility] Potassium, Whole Blood 4.3 3.6 - 4.9 mmol/L LAB HEMATOLOGY METHOD 01/15/2025 10:14 PM EDT [facility] Chloride, Whole Blood 99 97 - 107 mmol/L LAB HEMATOLOGY METHOD 01/15/2025 10:14 PM EDT [facility] Glucose, Whole Blood 110(H) 74 - 99 mg/dL LAB HEMATOLOGY METHOD 01/15/2025 10:14 PM EDT [facility] Lactate, Venous, Whole Blood 1.1 0.5 - 2.2 mmol/L LAB HEMATOLOGY METHOD 01/15/2025 10:14 PM EDT [facility] Ionized Calcium, Whole Blood 4.6 4.6 - 5.1 mg/dL LAB HEMATOLOGY METHOD 01/15/2025 10:14 PM EDT [facility] Blood Venous blood specimen / Unknown Venipuncture / Unknown 01/15/2025 10:11 PM EDT 01/15/2025 10:12 PM EDT us Gus Vigil APRN LAB BLOOD ORDERABLES Fin al Result [facility] [address] [place] [address] * (ABNORMAL) CMP (01/15/2025 10:11 PM EDT) Glucose, Plasma 116(H) 74 - 99 mg/dL 01/15/2025 10:32 PM EDT [facility] BUN, Plasma 14 7 - 21 mg/dL 01/15/2025 10:32 PM EDT [facility] Creatinine, Plasma 0.78 0.70 - 1.20 mg/dL 01/15/2025 10:32 PM EDT [facility] BUN/Creatinine Ratio 18 01/15/2025 10:32 PM EDT [facility] Sodium, Plasma 134(L) 136 - 145 mmol/L 01/15/2025 10:32 PM EDT [facility] Potassium, Plasma 4.6 3.6 - 4.9 mmol/L 01/15/2025 10:32 PM EDT [facility] Chloride, Plasma 97 97 - 107 mmol/L 01/15/2025 10:32 PM EDT [facility] CO2, Plasma 24 22 - 29 mmol/L 01/15/2025 10:32 PM EDT [facility] Anion Gap 13 6 - 16 mmol/L 01/15/2025 10:32 PM EDT [facility] Total Calcium, Plasma 8.7(L) 8.9 - 10.2 mg/dL 01/15/2025 10:32 PM EDT [facility] Total Protein 6.5 6.3 - 7.9 g/dL 01/15/2025 10:32 PM EDT [facility] Albumin, Plasma 3.7 3.5 - 5.2 g/dL 01/15/2025 10:32 PM EDT [facility] AST, Plasma 23 10 - 50 U/L 01/15/2025 10:32 PM EDT [facility] ALT, Plasma 52(H) 10 - 50 U/L 01/15/2025 10:32 PM EDT [facility] Alkaline Phosphatase, Plasma 124(H) 40 - 115 U/L 01/15/2025 10:32 PM EDT [facility] Total Bilirubin, Plasma 0.3 0.2 - 1.1 mg/dL 01/15/2025 10:32 PM EDT [facility] eGFRcr 119.3 mL/min/1.7 3m*2 01/15/2025 10:32 PM EDT [facility] Comment:Reported eGFRcr in m L/min/1.73m2 is based the CKD-EPI 2020 equation that does not use a race coefficient. Blood Venous blood specimen / Unknown Venipuncture / Unknown 01/15/2025 10:11 PM EDT 01/15/2025 10:12 PM EDT [facility] Fin al Result Performing Organization Address City/[facility]/ZIP Co de Phone Number [facility] [address] [place] [address] * PT-INR (01/15/2025 10:11 PM EDT) Prothrombin Time 12.5 12.0 - 14.3 sec 01/15/2025 10:28 PM EDT [facility] INR 1.0 0.9 - 1.1 01/15/2025 10:28 PM EDT [facility] Blood Venous blood specimen / Unknown Venipuncture / Unknown 01/15/2025 10:11 PM EDT 01/15/2025 10:12 PM EDT Narrative [facility] - 01/15/2025 10:28 PM EDT [...] of recurrent [place] IN[address] [facility] BLOOD ORDERABLES Fin al Result Performing Organization Address City/[facility]/ZIP Co de Phone Number [facility] [address] [place] [address] * (ABNORMAL) CBC w/diff (01/15/2025 10:11 PM EDT) WBC Count 19.24(H) 3.70 - 10.30 10*3/uL LAB HEMATOLOGY METHOD 01/15/2025 10:14 PM EDT [facility] RBC Count 4.33(L) 4.60 - 6.10 10*6/uL LAB HEMATOLOGY METHOD 01/15/2025 10:14 PM EDT [facility] HGB 13.0(L) 13.7 - 17.5 g/dL LAB HEMATOLOGY METHOD 01/15/2025 10:14 PM EDT [facility] HCT 39.3(L) 40.0 - 51.0 % LAB HEMATOLOGY METHOD 01/15/2025 10:14 PM EDT [facility] Platelet Count 383(H) 155 - 369 10*3/uL LAB HEMATOLOGY METHOD 01/15/2025 10:14 PM EDT [facility] MCV 91 79 - 98 fL LAB HEMATOLOGY METHOD 01/15/2025 10:14 PM EDT [facility] MCH 30.0 26.0 - 32.0 pg LAB HEMATOLOGY METHOD 01/15/2025 10:14 PM EDT [facility] MCHC 33.1 30.7 - 35.5 g/dL LAB HEMATOLOGY METHOD 01/15/2025 10:14 PM EDT [facility] RDW 13.2 11.5 - 14.5 % LAB HEMATOLOGY METHOD 01/15/2025 10:14 PM EDT [facility] MPV 9.2 8.8 - 12.5 fL LAB HEMATOLOGY METHOD 01/15/2025 10:14 PM EDT [facility] nRBC 0.0 <=0.0 per 100 WBCs LAB HEMATOLOGY METHOD 01/15/2025 10:14 PM EDT [facility] Differential Type Automated LAB HEMATOLOGY METHOD 01/15/2025 10:14 PM EDT [facility] Neutrophils % 78 % LAB HEMATOLOGY METHOD 01/15/2025 10:14 PM EDT [facility] Lymphocytes % 12 % LAB HEMATOLOGY METHOD 01/15/2025 10:14 PM EDT [facility] Monocytes % 8 % LAB HEMATOLOGY METHOD 01/15/2025 10:14 PM EDT [facility] Eosinophils % 1 % LAB HEMATOLOGY METHOD 01/15/2025 10:14 PM EDT [facility] Basophils % 0 % LAB HEMATOLOGY METHOD 01/15/2025 10:14 PM EDT [facility] Immature Granulocytes % 1 % LAB HEMATOLOGY METHOD 01/15/2025 10:14 PM EDT [facility] Neutrophils Absolute 15.11(H) 1.60 - 6.10 10*3/uL LAB HEMATOLOGY METHOD 01/15/2025 10:14 PM EDT [facility] Lymphocytes Absolute 2.34 1.20 - 3.90 10*3/uL LAB HEMATOLOGY METHOD 01/15/2025 10:14 PM EDT [facility] Monocytes Absolute 1.46(H) 0.30 - 0.90 10*3/uL LAB HEMATOLOGY METHOD 01/15/2025 10:14 PM EDT [facility] Eosinophils Absolute 0.13 0.00 - 0.50 10*3/uL LAB HEMATOLOGY METHOD 01/15/2025 10:14 PM EDT [facility] Basophils Absolute 0.06 0.00 - 0.10 10*3/uL LAB HEMATOLOGY METHOD 01/15/2025 10:14 PM EDT [facility] Immature Granulocytes Absolute 0.14(H) 0.00 - 0.06 10*3/uL LAB HEMATOLOGY METHOD 01/15/2025 10:14 PM EDT [facility] Blood Venous blood specimen / Unknown Venipuncture / Unknown 01/15/2025 10:11 PM EDT 01/15/2025 10:12 PM EDT Narrative [facility] - 01/15/2025 10:14 PM EDT Therapeutic decision making should be based on absolute values, rather than percentages. Gus Vigil TOUR CONSULTANT LAB BLOOD ORDERABLES Fin al Result Performing Organization Address City/State/[facility] Co de Phone Number [facility] [address] [place] [address] documented in this encounter Visit Diagnoses Diagnosis Cellulitis of leg, left- Primary Sepsis following procedure, initial encounter ([facility]) Cellulitis of left lower extremity Acute postoperative pain Other acute postoperative pain Closed fracture of left tibial plateau with routine healing, subsequent encounter Cellulitis of leg, left Cellulitis of left lower extremity Sepsis following procedure ([facility]) Closed fracture of left tibial plateau Closed fracture of left tibial plateau with routine healing, subsequent encounter documented in this encounter Admitting Diagnoses Diagnosis Cellulitis of leg, left Cellulitis of left lower extremity Sepsis following procedure ([facility]) Closed fracture of left tibial plateau [...] vial for injection As needed, Starting on 01/20/25 at 1048, [...] Miranda RN) 06 (Given - Provider: Taryn Mirnada RN) vancomycin in NS (Vancocin) IVPB 1,500 [...] and no response to magnesium hydroxide 09 ([facility] Hold - Provider: Automatic Transfer Provider - Reason: Patient in procedure)1216 ([facility] Unhold - Provider: Automatic Transfer Provider) HYDROmorphone [...] 0411 (Given - Provider: Taryn Miranda RN)923 ([facility] [place] Hold - Provider: Automatic Transfer Provider - Reason: Patient in procedure)1216 ([facility] [place] Unhold - Provider: Automatic Transfer Provider)1630 (Not [...] no bowel movement for 48 hours 923 ([facility] [place] Hold - Provider: Automatic Transfer Provider - Reason: Patient in procedure)1216 ([facility] [place] Unhold - Provider: Automatic Transfer Provider) naloxone (Narcan) injection 0.08 mg 0.08 mg, Intravenous, As needed, Starting on Sneha 01/16/25 at 0753, Until Mon01/22/25 at 1922, Routine, respiratory depression, every 2 minutes 923 ([facility] Hold - Provider: Automatic Transfer Provider - [...] documented as of this encounter Care Teams Health Plan Advisor Relationship Specialty Start Date End Date Renetta Pardo APRN [address] [place] [address] [place] [address] PCP - General 09/09/23 02/16/25 documented as of this encounter
--- OUTSIDE RECORDS SUMMARY | 2025-02-03 08:10 | XMS_ITS | Encounter Summary ---
Author Organization Healthcare Address [address] [place] [address] Care Team Providers Care Radiation Engineer Name Role Phone Renetta Pardo APRN Primary Care Provider +1 -[phone] Reason for Visit * Reason Comments Post-op Encounter Details Date Type Department Care Team (Late st Contact Info) Description 02/03/2025 8:10 AM EDT Office Visit [facility] Orthopaedic Surgery & Sports Medicine [address], 1[address] [place] [address] Lawrence Hayes MD [address] [place] [address] Closed fracture of left tibial [...] any time in the past 12 m [facility], were you homeless or living in [...] first t traci in the morning (EYE-CAR STOWER) to steady your nerves or to get [...] Orthopaedic Surgery and Sports Medicine Consult Pager: [phone] Service Pager: [phone] Cosigned by Lawrence Hayes MD at 02/03/2025 [...] Description 2025 7:50 AM EDT Office Visit [facility] Orthopaedic Surgery & Sports Medicine [address] 1[address] [place] [address] Stella Brown, SPRAY PILOT [address] [place] [address] 2025 10:30 AM EDT Office Visit [address] [address] Santiago Collado MD [address] [place] [address] 100 [place] [address] 03/27/2025 9:30 AM EDT Office Visit [address] [address] Santiago Collado MD [address] [place] [address] 100 [place] [address] documented as of this encounter [...] documented as of this encounter Care Teams Radiation Engineer Relationship Specialty Start Date End Date Renetta Pardo APRN [address] [place] [address] [place] [address] PCP - General 09/09/23 02/16/25 documented as of this encounter
--- OUTSIDE RECORDS SUMMARY | 2025-02-17 08:40 | XMS_ITS | Encounter Summary ---
Author Organization Healthcare Address [address] [place] [address] Care Team Providers Care V Belt Finisher Name Role Phone Blaine Nava MD Primary Care Provider [phone] Encounter Details Date Type Department Care Team (Latest Contact Info) Description 02/17/2025 8:40 AM EDT - 02/17/2025 1:27 PM EDT Hospital Encounter [facility] [address], 1st [place] [address] Closed fracture of left tibial [...] afraid of your partner or ex-partner? No 02/24/2025 Within the last year, have y ou been humiliated or emotionally abused in other ways by your partner or ex-partner? No Within the last year, have y ou been kicked, hit, slapped, or otherwise physically hurt by your partner or ex-partner? No 02/24/2025 Within the last year, have y ou been raped or forced to have any kind of sexual activity by your partner or ex-partner? No 02/24/2025 Social Connection and Isolation Panel Answer Date Recorded Frequency of Communication with Friends and Fami ly Not on file 02/24/2025 Frequency of Social Gatherings with Friends and Family Not on file 02/24/2025 Attends Amish Services Not on file 02/24 Active Member of Clubs or Organizations Not on f ile 02/24/2025 Attends Club or Organization Meetings Not on bobby e 02/24/2025 Are you , , di vorced, , never , or living with a partner? 02/24/2025 AUDIT-C Answer Date Recorded Q1: How often do you have a drink containing alcohol? Never 02/24/2025 Q2: How many drinks containi ng alcohol do you have on a typical day when you are drinking? Patient does not drink Q3: How often do you have si x or more drinks on one occasion? Never 02/24/2025 Hunger Vital Sign Answer Date Recorded Within the past 12 months, y ou worried that your food would run out before you got the money to buy more. Never true 02/25/20 25 Within the past 12 months, t he food you bought just didn't last and you didn't have money to get more. Never true 02/24/2025 PRAPARE - Transportation Answer Date Re corded In the past 12 months, has l ack of transportation kept you from medical appointments or from getting medications? No 02/11 In the past 12 months, has l ack of transportation kept you from meetings, work, or from getting things needed for daily living? No 02/24/2025 Housing Stability Vital Sign Answer Sylvester e Recorded In the last 12 months, was t here a time when you were not able to pay the mortgage or rent on time? No 02/24/2025 Number of Times Moved in the Last Year Not on fi le 02/24/2025 At any time in the past 12 m [facility], were you homeless or living in a usp (including now)? No 02/24/2025 CAGE ASSESSMENT Answer Date Recorded Cage unable [...] drink first t traci in the morning (EYE-SPRING FORMER HAND) to steady your nerves or to get rid of a hangover? 0 09/10/2023 CAGE Questionnaire Score 0 024 Utilities Answer Date Recorded In the past 12 months has th e electric, gas, oil, or water company threatened to shut off services in your home? No 02/24/2025 Sex and Gender Information Value Date Recorded Sex Assigned at Male 09/10/2023 4:09 AM EST Legal Sex Male 7:58 PM EST Gender Identity Male 09/10/2023 4:09 AM EST Sexual Orientation Straight 09/10/2023 4: 09 AM EST documented as of this encounter Functional Status * AUDIT-C Score Answer Date of Assessment Author 0 02/24/2025 10:59 AM Anna Woodward RN * Question Answer Date of Assessment Author Q1: How often do you have a drink containing alcohol? Never 02/24/2025 10:59 AM Anna Woodward RN Q2: How many drinks containing alcohol do you have on a typical day when you are drinking? Patient does not drink 02/24/2025 10:59 AM EDT Anna Elam RN Q3: How often do you have six or more drinks on one occasion? Never 02/24/2025 10:59 AM EDT Anna Elam RN * Calculated C-SSRS Risk Score (Lifetime/Recent) Answer Date of Assessment Author No Risk Indicated 02/22/2025 7:10 PM EDT Shelley Rodas RN * Question Answer Date of Assessment Author 1. Wish to be (Past 1 Month) No 025 7:10 PM EDT Shelley Rodas RN 2. Non-Specific Active Suici mike Thoughts (Past 1 Month) No 02/22/2025 7:10 PM EDT Justus Rodas RN 6. Suicidal Behavior (Lifetime) No 5 7:10 PM EDT Shelley Rodas RN documented as of this encounter Medications at Time of Discharge acetaminophen (Tylenol) 500 MG tablet Take 2 tablets by mouth every 6 hours. 100 tablet 1 02/24/2025 cefTRIAXone (Rocephin) 1 g reconstituted solutionIndications :Surgical site infection Infuse 2 g into a venous catheter 1 (one) time each day at the same time. 78 each 02/24/2025 5 cholecalciferol (Vitamin D3) 25 MCG (1000 UT) tablet Take 1 tablet by mouth daily. DAPTOmycin (Cubicin) injectionIndication s:Surgical site infection Infuse 22 mL into a venous catheter 1 (one) time each day at the same time over 3 minutes. Inpatient/[place] specific directions only. Mix and deliver per institution/fac ility policy. 858 mL 02/24/2025 ibuprofen 400 MG tablet Take 1 tablet by mouth every 6 hours as needed for mild pain. 50 tablet 01/02/2025 methocarbamol (Robaxin) 750 MG tablet Take 1 tablet by mouth 4 times a day. 50 tablet 02/24/2025 ondansetron ODT (Zofran-ODT) 4 MG disintegrating tablet Dissolve 1 tablet on the tongue every 6 hours as needed for nausea or vomiting. 20 tablet 02/24/2025 oxyCODONE (Roxicodone) 5 MG immediate release tablet Take 1 tablet by mouth every 6 hours as needed for moderate pain. 20 tablet 02/24/2025 senna-docusate (Janeth-Colace) 8.6-50 MG tablet Take 1 tablet by mouth 2 times a day. 28 tablet 5 02/24/2025 acetaminophen (Tylenol) 500 MG tablet Take 2 tablets by mouth every 6 hours as needed for pain. 100 tablet 01/02/2025 5 DAPTOmycin (Cubicin) injectionIndication s:Cellulitis of leg, left Infuse 22 mL into a venous catheter 1 (one) time each day at the same time over 3 minutes. Inpatient/[place] specific directions only. Mix and deliver per institution/[facility] ility policy. 1 each 01/22/2025 5 enoxaparin (Lovenox) 60 MG/0.6ML solution prefilled syringe Inject 0.6 mL as directed 2 times a day. 5 methocarbamol (Robaxin) 750 MG tablet Take [...] 5 oxyCODONE (Oxy-IR) 5 MG immediate release capsuleIndications: Acute Pain Take 1 capsule by mouth every 6 hours as needed for severe pain. 25 capsule 01/22/2025 5 senna-docusate (Janeth-Colace) 8.6-50 MG tablet Take 1 tablet by mouth 2 times a day. 28 tablet 01/02/2025 5 VITAMIN D PO Take 1 tablet by mouth daily. 5 documented as of this encounter Plan of Treatment Upcoming Encounters Date Type Department Care Team (Late st Contact Info) Description 2025 7:50 AM EDT Office Visit [facility] Orthopaedic Surgery & Sports Medicine [address], [address] [place] [address] Stella Brown, HOT TAMALE WORKER [address] [place] [address] 2025 10:30 AM EDT Office Visit [address] [address] Santiago Collado MD [address] [place] [address] [address] [place] [address] 03/27/2025 9:30 AM EDT Office Visit [address] [address] Santiago Collado MD [address] [place] [address] [address] [place] [address] documented as of this encounter [...] documented as of this encounter Care Teams V Belt Finisher Relationship Specialty Start Date End Date Blaine Nava MD [address] [place] [address] [address]1 [address]1 [place] [address] PCP - General 02/17/25 documented as of this encounter
--- OUTSIDE RECORDS SUMMARY | 2025-02-17 09:20 | XMS_ITS | Encounter Summary ---
Author Organization Healthcare Address [address] [place] [address] Care Team Providers Care Platemaker Name Role Phone Blaine Nava MD Primary Care Provider [phone] Reason for Referral * Imaging (Urgent) - Closed Specialty Diagnoses / Procedures Referred By Adalid wills Referred To Contact Radiology Diagnoses Tibial plateau fracture, left, closed, initial encounter Procedures CT Knee Left wo IV Contrast Stella Lobo APRN [address] [facility] [address] [place] [address] Phone: tel: fax: Referral ID Status Reason Start Date Expiration Date Visits Re quested Visits Authorized [id number] Closed 02/17/2025 08/19/2026 1 1 Reason for Visit * Reason Comments Post-op Encounter Details Date Type Department Care Team (Late st Contact Info) Description 02/17/2025 9:20 AM EDT [facility] Orth[facility] Surgery [facility] Sports Medicine [address] [place] [address] Lawrence Hayes MD [address] [place] [address] Tibial plateau fracture, left, closed, initial encounter (Primary Dx); Surgical site infection Social History Tobacco Use Types Packs/Day Years [...] place to sleep or slept in a fpc (including now)? No 09/12/2023 Humiliation, Afraid, Rape, [...] time in the past 12 m [facility], were you homeless or living in a fpc (including now)? No 01/17/2025 CAGE ASSESSMENT Answer [...] drink first t traci in the morning (EYE-HYPERION ANALYST) to steady your nerves or to [...] Sign Reading Time Taken Comments Blood Pressure 125/82 02/17/2025 9:12 AM EDT Pulse 90 02/17/2025 9:12 AM EDT Temperature 36.6 C (97.9 F) 02/17/2025 9:12 AM EDT Respiratory Rate - - Oxygen Saturation 99% 02/17/2025 9:12 AM EDT Inhaled Oxygen Concentration - - Weight 150 kg (330 lb) 02/17/2025 9:12 AM EDT Height 188 cm (6' 2 ) 02/17/2025 9:12 AM EDT Body Mass Index 42.37 02/17/2025 9:12 AM EDT documented in this encounter Miscellaneous Notes * Addendum Note - Stella Lobo APRN - 02/17/2025 9:20 AM EDTAddended by: STELLA LOBO on: 02/17/2025 10:37 AM Modules accepted: Orders * Progress Notes - Stella Lobo APRN - 02/17/2025 9:20 AM EDT Chief Complaint: I&D for SSI (EM 01/18) (RW 01/20) s/p ORIF left medial tibial plateau (Freddy, 01/01/25) Previous L Femur IMN placement ([place], 09/10/23); ORIF left lateral tibial plateau fx (Elijah 09/15/23) HPI: Panda Machado is a 34 y.o. male who presents to clinic for a wound check. The patient was last seen 2 weeks ago where his sutures were removed s/p I&D on 01/20. He had an incisional WV placed but unfortunately missed his original follow up appointment on 01/27 for exchange. He was instructed to perform daily dry dressing changes after sutures were removed. Today, he reports that it l ooks better. However, reports that it has been draining quite a bit. Focused MSK Exam: Left lower extremity: Medial incision with proximal dehiscence ~3cm, probes deep, suspected to hardware Yellowish Drainage present Motor: Fires KF/KE/HL/FHL/GSC/TA Sensation: SILT arevalo/sa/sp/dp/t Vascular: Digits WWP XRAY: imaging ordered and reviewed by us showing stable hardware placement Assessment: 34 y.o. male who presents infected L tibial plateau Plan: -will send patient for repeat labs and CT of knee today -will plan for repeat I&D of L tibial plateau on Wednesday 02/[address] Hayes as extended recovery -plan for daily packing with nugauze to medial wound -NWB LLE ROMAT -continue IV abx per ID recs -The patient was given an opportunity to ask questions and all their questions were answered to their satisfaction. The patient was seen and evaluated by myself and Dr. Hayes. documented in this encounter Plan of Treatment Upcoming Encounters Date Type Department Care Team (Late st Contact Info) Description 2025 7:50 AM EDT Office Visit [facility] Orthopaedic Surgery & Sports Medicine [address] [place] [address] Stella Lobo APRN [address] [place] [phone] 2025 10:30 AM EDT Office Visit [address] [phone] Santiago Collado MD [address] [place] [address] [address] [place] [address] 03/27/2025 9:30 AM EDT Office Visit [address] [address] Santiago Collado MD [address] [place] [address] [address] [place] [address] documented as of this encounter Results * CT Knee Left wo IV Contrast (02/17/2025 1:58 PM EDT) Anatomical Region Laterality Modality Knee Left Computed Tomogra phy Impressions 02/17/2025 2:39 PM EDT Redemonstration of ORIF of the distal femur and proximal tibia with no definite evidence for loosening or failure. The comminuted intra-articular proximal tibial fracture demonstrates no significant osseous bridging with minimal callus formation along the posterior aspect of the fracture. There is slight widening of the distal aspect of the fracture with increased mineralization along the fracture line could represent developing nonunion. Large soft tissue defect extending from the medial skin surface to the medial plate-screw fixation hardware with mild adjacent stranding and edema. This could be due to recent intervention however correlate clinically to exclude signs and symptoms of infection. This does appear to extend to the region of the hardware however there is no apparent osseous changes at this time. Small suprapatellar effusion. CRITICAL RESULT: No. COMMUNICATION: Per this written report. Drafted by Luisito Rogers on 02/17/2025 2:27 PM Final report signed by Luisito Rogers on 02/17/2025 2:39 PM Narrative 02/17/2025 2:39 PM EDT CLINICAL INDICATION: assess for healing TECHNIQUE: Multiple axial CT images were obtained through the left knee. The axial CT data set was used to generate high resolution reformatted images in the coronal and sagittal planes to facilitate diagnostic accuracy and treatment planning. Total DLP (Dose-Length Product): 2.75 mGy.cm. Please note: The reported value represents the total of one or more individual components during the CT acquisition on this date and at this time, and as such, the same value may appear in more than one CT report depending on the interpreting/reporting physicians. COMPARISON: Radiograph [address] January 16, 2025 FINDINGS: Partially visualized ORIF of the distal femur with intramedullary nail and interlocking screws. No evidence of hardware loosening or failure. Redemonstration of medial and lateral plate and screw fixation of the comminuted intra-articular proximal tibial fracture with no evidence of hardware loosening or failure. Redemonstration of comminuted fracture predominantly involving the medial tibial plateau and tibial eminence. There is no significant osseous bridging along the fracture however along the posterior distal aspect the fracture there is noted to be minimal callus formation. There is mild widening of the distal aspect of the fracture with mild sclerosis along the fracture. No newly visualized fractures. Soft tissue defect extending through the medial subcutaneous tissues to the medial plate- screw fixation with subcutaneous gas and mild adjacent stranding and edema. Mild soft tissue swelling overlying the tibial tuberosity. Small suprapatellar effusion. Procedure Note Luisito Rogers MD - 02/17/2025 CLINICAL INDICATION: assess for healing TECHNIQUE: Multiple axial CT images were obtained through the left knee. The axial CTdata set was used to generate high resolution reformatted images in thecoronal and sagittal planes to facilitate diagnostic accuracy andtreatment planning. Total DLP (Dose-Length Product): 2.75 mGy.cm. Please note: The reportedvalue represents the total of one or more individual components during theCT acquisition on this date and at this time, and as such, the same valuemay appear in more than one CT report depending on theinterpreting/reporting physicians. COMPARISON: Radiograph [address] January 16, 2025 FINDINGS: Partially visualized ORIF of the distal femur with intramedullary nail andinterlocking screws. No evidence of hardware loosening or failure.Redemonstration of medial and lateral plate and screw fixation of thecomminuted intra-articular proximal tibial fracture with no evidence ofhardware loosening or failure. Redemonstration of comminuted fracturepredominantly involving the medial tibial plateau and tibial eminence.There is no significant osseous bridging along the fracture however alongthe posterior distal aspect the fracture there is noted to be minimalcallus formation. There is mild widening of the distal aspect of thefracture with mild sclerosis along the fracture. No newly visualizedfractures. Soft tissue defect extending through the medial subcutaneoustissues to the medial plate- screw fixation with subcutaneous gas and mildadjacent stranding and edema. Mild soft tissue swelling overlying thetibial tuberosity. Small suprapatellar effusion. IMPRESSION: Redemonstration of ORIF of the distal femur and proximal tibia with nodefinite evidence for loosening or failure. The comminuted intra-articular proximal tibial fracture demonstrates nosignificant osseous bridging with minimal callus formation along theposterior aspect of the fracture. There is slight widening of the distalaspect of the fracture with increased mineralization along the fractureline could represent developing nonunion. Large soft tissue defect extending from the medial skin surface to themedial plate-screw fixation hardware with mild adjacent stranding andedema. This could be due to recent intervention however correlateclinically to exclude signs and symptoms of infection. This does appear toextend to the region of the hardware however there is no apparent osseouschanges at this time. Small suprapatellar effusion. CRITICAL RESULT: No. COMMUNICATION: Per this written report. Drafted by Luisito Rogers on 02/17/2025 2:27 PM Final report signed by Luisito Rogers on 02/17/2025 2:39 PM us Stella Lobo APRN IMG CT PROCEDURES Final Re sult * (ABNORMAL) C-Reactive Protein, Plasma (02/17/2025 11:00 AM EDT) CRP, Plasma 12.7(H) <=8.0 mg/L 02/17/2025 12:40 PM EDT [facility] Blood Venous blood specimen / Unknown Venipuncture / Unknown 02/17/2025 11:00 AM EDT 02/17/2025 11:00 AM EDT Narrative [facility] - 02/17/2025 12:40 PM EDT This CRP test is appropriate for assessment of infection, systemic inflammation and/or tissue injury. To assess cardiovascular disease risk order high sensitivity CRP (CRPH). us Stella Lobo APRN LAB BLOOD ORDERABLES Final Result [facility] [address] [place] [address] * (ABNORMAL) Sedimentation Rate, Automated (02/17/2025 11:00 AM EDT) Sedimentation Rate 20(H) <15 mm/hr 2024 12:47 PM EDT [facility] Blood Venous blood specimen / Unknown Venipuncture / Unknown 02/17/2025 11:00 AM EDT 02/17/2025 11:00 AM EDT us Stellamarie Lobo APRN LAB BLOOD ORDERABLES Final Result [facility] [address] [place] [address] * (ABNORMAL) Comprehensive metabolic panel (02/17/2025 11:00 AM EDT) Glucose, Plasma 94 74 - 99 mg/dL 02/17/2025 12:40 PM EDT [facility] BUN, Plasma 13 7 - 21 mg/dL 02/17/2025 12:40 PM EDT [facility] Creatinine, Plasma 0.85 0.70 - 1.20 mg/dL 02/17/2025 12:40 PM EDT [facility] BUN/Creatinine Ratio 15 02/17/2025 12:40 PM EDT [facility] Sodium, Plasma 137 136 - 145 mmol/L 02/17/2025 12:40 PM EDT [facility] Potassium, Plasma 4.6 3.6 - 4.9 mmol/L 02/17/2025 12:40 PM EDT [facility] Chloride, Plasma 101 97 - 107 mmol/L 02/17/2025 12:40 PM EDT [facility] CO2, Plasma 25 22 - 29 mmol/L 02/17/2025 12:40 PM EDT [facility] Anion Gap 11 6 - 16 mmol/L 02/17/2025 12:40 PM EDT [facility] Total Calcium, Plasma 9.3 8.9 - 10.2 mg/dL 02/17/2025 12:40 PM EDT [facility] Total Protein 7.1 6.3 - 7.9 g/dL 02/17/2025 12:40 PM EDT [facility] Albumin, Plasma 4.2 3.5 - 5.2 g/dL 02/17/2025 12:40 PM EDT [facility] AST, Plasma 16 10 - 50 U/L 02/17/2025 12:40 PM EDT [facility] ALT, Plasma 28 10 - 50 U/L 02/17/2025 12:40 PM EDT [facility] Alkaline Phosphatase, Plasma 117(H) 40 - 115 U/L 02/17/2025 12:40 PM EDT [facility] Total Bilirubin, Plasma <0.2(L) 0.2 - 1.1 mg/dL 02/17/2025 12:40 PM EDT [facility] eGFRcr 116.2 mL/min/1.7 3m*2 02/17/2025 12:40 PM EDT [facility] Comment:Reported eGFRcr in m L/min/1.73m2 is based the CKD-EPI 2020 equation that does not use a race coefficient. Blood Venous blood specimen / Unknown Venipuncture / Unknown 02/17/2025 11:00 AM EDT 02/17/2025 11:00 AM EDT us Stella Lobo PSYCH RN LAB BLOOD ORDERABLES Final Result [facility] [address] [place] [address] * (ABNORMAL) CBC with Differential (02/17/2025 11:00 AM EDT) WBC Count 7.61 3.70 - 10.30 10*3/uL LAB HEMATOLOGY METHOD 02/17/2025 12:23 PM EDT [facility] RBC Count 4.26(L) 4.60 - 6.10 10*6/uL LAB HEMATOLOGY METHOD 02/17/2025 12:23 PM EDT [facility] HGB 12.5(L) 13.7 - 17.5 g/dL LAB HEMATOLOGY METHOD 02/17/2025 12:23 PM EDT [facility] HCT 39.1(L) 40.0 - 51.0 % LAB HEMATOLOGY METHOD 02/17/2025 12:23 PM EDT [facility] Platelet Count 330 155 - 369 10*3/uL LAB HEMATOLOGY METHOD 02/17/2025 12:23 PM EDT [facility] MCV 92 79 - 98 fL LAB HEMATOLOGY METHOD 02/17/2025 12:23 PM EDT [facility] MCH 29.3 26.0 - 32.0 pg LAB HEMATOLOGY METHOD 02/17/2025 12:23 PM EDT [facility] MCHC 32.0 30.7 - 35.5 g/dL LAB HEMATOLOGY METHOD 02/17/2025 12:23 PM EDT [facility] RDW 13.0 11.5 - 14.5 % LAB HEMATOLOGY METHOD 02/17/2025 12:23 PM EDT [facility] MPV 9.7 8.8 - 12.5 fL LAB HEMATOLOGY METHOD 02/17/2025 12:23 PM EDT [facility] nRBC 0.0 <=0.0 per 100 WBCs LAB HEMATOLOGY METHOD 02/17/2025 12:23 PM EDT [facility] Differential Type Automated LAB HEMATOLOGY METHOD 02/17/2025 12:23 PM EDT [facility] Neutrophils % 52 % LAB HEMATOLOGY METHOD 02/17/2025 12:23 PM EDT [facility] Lymphocytes % 33 % LAB HEMATOLOGY METHOD 02/17/2025 12:23 PM EDT [facility] Monocytes % 8 % LAB HEMATOLOGY METHOD 02/17/2025 12:23 PM EDT [facility] Eosinophils % 5 % LAB HEMATOLOGY METHOD 02/17/2025 12:23 PM EDT [facility] Basophils % 1 % LAB HEMATOLOGY METHOD 02/17/2025 12:23 PM EDT [facility] Immature Granulocytes % 1 % LAB HEMATOLOGY METHOD 02/17/2025 12:23 PM EDT [facility] Neutrophils Absolute 4.07 1.60 - 6.10 10*3/uL LAB HEMATOLOGY METHOD 02/17/2025 12:23 PM EDT [facility] Lymphocytes Absolute 2.50 1.20 - 3.90 10*3/uL LAB HEMATOLOGY METHOD 02/17/2025 12:23 PM EDT [facility] Monocytes Absolute 0.59 0.30 - 0.90 10*3/uL LAB HEMATOLOGY METHOD 02/17/2025 12:23 PM EDT [facility] Eosinophils Absolute 0.36 0.00 - 0.50 10*3/uL LAB HEMATOLOGY METHOD 02/17/2025 12:23 PM EDT [facility] Basophils Absolute 0.05 0.00 - 0.10 10*3/uL LAB HEMATOLOGY METHOD 02/17/2025 12:23 PM EDT [facility] Immature Granulocytes Absolute 0.04 0.00 - 0.06 10*3/uL LAB HEMATOLOGY METHOD 02/17/2025 12:23 PM EDT [facility] Blood Venous blood specimen / Unknown Venipuncture / Unknown 02/17/2025 11:00 AM EDT 02/17/2025 11:00 AM EDT [facility] - 02/17/2025 12:23 PM EDT Therapeutic decision making should be based on absolute values, rather than percentages. 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
--- OUTSIDE RECORDS SUMMARY | 2025-02-17 13:28 | XMS_ITS | Encounter Summary ---
Author Organization Healthcare Address [address] [place] [address] Care Team Providers Care Circuit Breaker Mechanic Name Role Phone Blaine Nava MD Primary Care Provider [phone] Reason for Referral * Imaging (Urgent) - Closed Specialty Diagnoses / Procedures Referred By Contac t Referred To Contact Radiology Diagnoses Tibial plateau fracture, left, closed, initial encounter Procedures CT Knee Left wo IV Contrast Stella Brown APRN [address] [place] [address] Phone: tel: fax: Referral ID Status Reason Start Date Expiration Date Visits Re quested Visits Authorized [id number] Closed 02/17/2025 08/19/2026 1 1 Reason for Visit * Imaging (Urgent) - Closed Specialty Diagnoses / Procedures Referred By Contac t Referred To Contact Radiology Diagnoses Tibial plateau fracture, left, closed, initial encounter Procedures CT Knee Left wo IV Contrast Stella Brown APRN [address] [place] [address] Phone: tel: fax: Referral ID Status Reason Start Date Expiration Date Visits Re quested Visits Authorized [id number] Closed 02/17/2025 08/19/2026 1 1 Encounter Details Date Type Department Care Team (Latest Contact Info) Description 02/17/2025 1:28 PM EDT - 02/17/2025 11:59 PM EDT Hospital Encounter [facility] [address] [place] [address] Tibial plateau fracture, left, closed, [...] and Family Not on file 02/24/2025 Attends [employer] Not on file 02/24 Active Member [...] any time in the past [address] [facility], were you homeless or living in a snf (including now)? No 02/24/2025 CAGE ASSESSMENT Answer [...] drink first t traci in the morning (EYE-WEB ASSISTANT) to steady your nerves or to get rid of a hangover? 0 09/10/2023 CAGE Questionnaire Score 0 024 Utilities Answer Date Recorded In the past 12 months has th [employer], gas, oil, or water company threatened to [...] Description 2025 7:50 AM EDT Office Visit [facility] Orthopaedic Surgery & Sports Medicine [address] [place] [address] Stella Brown, BENZENE STILL UTILITY OPERATOR [address] [place] [address] 2025 10:30 AM EDT Office Visit [facility] [address] [place] [address] Santiago Collado MD [address] [facility] [address] [place] [address] 03/27/2025 9:30 AM EDT Office Visit [facility] [address] [place] [address] Santiago Collado MD [address] [facility] [address] [place] [address] documented as of this encounter Procedures Procedure [...] on 02/17/2025 2:39 PM us Stella Brown APRN IMG CT PROCEDURES Final Re sult documented [...] documented as of this encounter Care Teams Circuit Breaker Mechanic Relationship Specialty Start Date End Date Blaine Nava MD [address] [place] [address] #1 [address]1 JOHN Miller [address] PCP - General 02/17/25 documented as of this encounter
--- OUTSIDE RECORDS SUMMARY | 2025-02-21 09:35 | XMS_ITS | Encounter Summary ---
Author Organization Healthcare Address [address] [place] [address] Care Team Providers Care Systems Admin Name Role Phone Blaine Nava MD Primary Care Provider [phone] Reason for Visit * Auth/Cert (Routine) Specialty Diagnoses / Procedures Referred By Adalid t Referred To Contact Diagnoses Tibial plateau fracture, left, closed, initial encounter Surgical site infection Tibial plateau fracture, left, closed, initial encounter [S82.142A] Surgical site infection [T81.49XA] Procedures NC DRAIN LOWER LEG DEEP ABSC/HEMATOMA INCISION AND DRAINAGE, LOWER EXTREMITY Lawrence Hayes MD [address] [address] Phone: tel: fax: [facility] [address] [place] [address] Phone: tel: Referral ID Status Reason Start Date Expiration Date Visits Re quested Visits Authorized [id number] 1 1 Encounter Details Date Type Department Care Team (Latest Contact Info) Description 02/21/2025 9:35 AM EDT - 02/24/2025 8:01 PM EDT Hospital Encounter [facility] [address] [facility] [address] [place] [address] Lawrence Hayes MD [address] [address] Cellulitis of left lower extremity (Primary Dx); Tibial plateau fracture, left, closed, initial encounter; Surgical site infection Discharge Disposition: Home or Self Care Social [...] and Family Not on file 02/24/2025 Attends [employer] Not on file 07/14 /2025 Active Member of Clubs or Organizations Not [...] time in the past [address] [facility], were you homeless or living in a long term (including now)? 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 0 09/10/2023 CAGE Questionnaire Score 0 024 Utilities Answer Date Recorded In the past 12 months has th e [employer], gas, oil, or water company threatened to [...] Sign Reading Time Taken Comments Blood Pressure 113/74 02/24/2025 3:03 PM EDT Pulse 84 02/24/2025 3:03 PM EDT Temperature 36.9 C (98.4 F) 02/24/2025 3:03 PM EDT Respiratory Rate 18 02/24/2025 4:30 AM EDT Oxygen Saturation 98% 02/24/2025 3:03 PM EDT Inhaled Oxygen Concentration - - Weight 154 kg (338 lb 13.6 oz) 02/24/2025 6:00 A M EDT Height 188 cm (6' 2 ) 02/21/2025 5:50 PM EDT Body Mass Index 43.51 02/21/2025 5:50 PM EDT documented in this encounter Functional Status * AUDIT-C Score Answer Date of Assessment Author 0 02/24/2025 10:59 AM EDT Anna Elam RN * Question Answer Date of Assessment Author Q1: How often do you have a drink containing alcohol? Never 02/24/2025 10:59 AM EDT Anna Elam RN Q2: How many drinks containing alcohol [...] Rodas RN documented as of this encounter Discharge Instructions * Discharge Instructions* Keyanna Romreo MD - 02/24/2025 4:03 PM EDT Post-Operative Discharge Instructions: Medications: - You should take 650mg Tylenol every 6 hours as needed for mild - moderate pain. - You have been prescribed pain medications to be taken as needed for severe pain. - You should take the stool softener prescribed as long as you are taking narcotics. - You may resume your previous medications unless otherwise instructed. - Continue outpatient antibiotic therapy per Infectious Disease recommendations (Daptomycin 8-10mg/kg IV q24h + Ceftriaxone 2g IV q24h for 6-8+ weeks, new end date 04/04) Nutrition: - You may resume your normal diet as tolerated, focusing on liquids to keep yourself hydrated. Activity: - Please remain non-weight bearing on the left lower extremity in the TROM unlocked until follow-upappointment - You may not drive for 48 hours after surgery, or while taking narcotics Dressing: - You should try to keep your incisions as clean and dry as possible - You may shower. Let the soapy water run over your incisions. Do not scrub at your incisions. After you shower, pat your incisions dry with a clean towel. - Do NOT soak your incisions, or take a tub bath for 2 weeks. Potential Issues: - It is normal to [...] vomiting, or feeling unwell Follow Up: - [facility] with Stella Brown - Call the office with any questions or concerns documented in this encounter Medications at Time [...] per institution/fac ility policy. 858 mL 02/24/2025 5 ibuprofen 400 MG tablet Take 1 [...] times a day. 28 tablet 5 02/24/2025 documented as of this encounter Miscellaneous Notes * Care Plan - Cosmo Traylor RN - 02/24/2025 6:33 PM EDT Problem: Adult Inpatient Plan of Care Goal: Plan of Care Review Outcome: Ongoing, Progressing Flowsheets (Taken 02/24/202534 by Shelley Rodas, RN) Progress: improving Plan of Care Reviewed With: patient Goal: Patient-Specific Goal (Individualized) Outcome: Ongoing, Progressing Flowsheets (Taken 02/24/2025 0700) Patient/Family-Specific Goals (Include Timeframe): Pt will remain free from fall/injury this shift and have controlled pain Individualized Care Needs: safety and pain Anxieties, Fears or Concerns: none Goal: Absence of Hospital-Acquired Illness or Injury Outcome: Ongoing, Progressing Goal: Optimal Comfort and Wellbeing Outcome: Ongoing, Progressing Goal: Readiness for Transition of Care Outcome: Ongoing, Progressing Problem: Infection Goal: Absence of Infection Signs and Symptoms Outcome: Ongoing, Progressing Intervention: Prevent or Manage Infection Flowsheets Taken 02/24/2025 040 by Fortunato Geiger Isolation Precautions: precautions maintained protective Taken 02/24/202534 by Shelley Rodas, RN Infection Management: aseptic technique maintained Taken 02/21/2025 1940 by Shelley Rodas, RN Fever Reduction/Comfort Measures: lightweight bedding Problem: Fall Injury Risk Goal: Absence of Fall and Fall-Related Injury Outcome: Ongoing, Progressing Intervention: Identify and Manage Contributors Flowsheets (Taken 02/24/2025 183) Medication Review/Management: medications reviewed Self-Care Promotion: independence encouraged adaptive equipment use encouraged Intervention: Promote Injury-Free Environment Flowsheets (Taken 02/24/2025399 by Fortunato Geiger) Safety Promotion/Fall Prevention: activity supervised clutter-free environment maintained nonskid shoes/slippers when out of bed safety round/check completed Problem: Pain Acute Goal: Optimal Pain Control and Function Outcome: Ongoing, Progressing Intervention: Develop Pain Management Plan Flowsheets (Taken 02/24/202534 by Shelley Rodas, RN) Pain Management Interventions: rest awakened for pain meds per patient request care clustered pillow support provided quiet environment facilitated Intervention: Prevent or Manage Pain Flowsheets (Taken 02/24/2025 183) Medication Review/Management: medications reviewed * Adrienne Perez - 02/24/2025 4:04 PM EDT Images from the original note were not included. 798 Narcan Nasal [place]: Rescue Guide for Opioid Overdose Step 1 Check for signs of overdose. Think someone had opioid overdose? Shout their name and ask Are you OK? Try shaking them by the shoulders or rubbing the middle of the chest. Signs of overdose are: ?? No response or does not wake up. ?? Breathing is slow, odd, or has stopped. ?? Center of the eye (pupil) is very small. If you see any of these signs, go to Step 2. Step 2 Give the medicine. 1. Lay the person flat on the back. 2. Get the Narcan nasal spray. Peel back the tab to remove the bottle. 3. Hold the bottle as shown. 4. Put your free hand behind the person?s neck. Gently lift to tilt the head back. 5. Place the nozzle inside one nostril until your fingers touch the nose. 6. Press the plunger with your thumb to spray. Then remove from the nostril. Step 3 Call 911 for help and watch the person. ?? Call 911 for emergency help. ?? Have the person lay on their side as shown. ?? Look for a response. The person may wake up, breathe normally, or respond to touch or voice. ?? If there is no response for 2-3 minutes after giving the spray, give another - if you have extraspray bottles. In that case, repeat Step 2 then move them back on to their side. ?? You can repeat this every 2-3 minutes until help arrives or the person responds. ?? Use this medicine only if you know or suspect the person has opioid overdose. ?? Do not open the Narcan package until you need to use it. ?? Only for use in the nose. * [facility] Adrienne Inman - 02/24/2025 4:04 PM EDT Images from the original note were not included. 450 Safe Use of Controlled Substances Taking a medicine may be an important part of your treatment. Your body should heal faster if you take medicine safely. Some medicines are called Controlled Substances. This means their use is controlled by law. Some of these can harm you if you do not take them safely. What can I do to make sure I take my medicine safely? ?? Follow the instructions we give you for how to take your medicine. ?? We will give you an instruction sheet for each of your medicines. Ask your doctor or nurse if you do not get these instructions. ?? Some medicines make you sleepy or cloud your thinking. Do not drive, use heavy machines or do dangerous activities while taking these medicines. ?? Read the label on the bottle each time you take your medicine. ?? Do not take your medicine with alcohol or other sedatives. ?? Do not take medicine after the expiration date. ?? It is against the law to sell your medicine or share it with others. ?? Do not drive while using your medicine. How should I store my medicine? Store it in a safe place. This will keep others from taking your medicine and help you keep track of it. ?? Store controlled substances in a cabinet or container that you can lock. ?? Keep it in a place that is cool, dry and out of direct sunlight. ?? Do not leave it in the car. ?? Do not store in a refrigerator or freezer, unless your doctor tells you to. ?? Call your doctor right away if your medicine is lost or stolen. How should I dispose of medicine that is or no longer needed? You may have medicine left over that you do not need or should not take. You must dispose of it theright way to protect yourself and others. You can ask your local pharmacist how to dispose of them.You can also visit these Web sites to learn more about disposal of controlled substances: ?? Drug Enforcement Agency (EDMUNDO): http://www.deadiversion.usdoj.gov/drug_disposal/takeback/index.htm ?? National Association of Drug Diversion Investigators (NADDI): http://rxdrugdropbox.org/ ?? [place] Office of Drug Control Policy: http://odcp.ky.gov/Prescription+Drug+Drop+Box+Sites.htm Are there concerns about or ? ?? Before you take a medicine, tell your doctor if you are or plan to get . This could harm your baby. ?? Tell your doctor if you breastfeed. Medicine in breast milk may be bad for your child. What if I have low or impaired vision? If you have vision problems, take extra care with your medicine. ?? Wear your glasses when you take your medicine. ?? Do not take medicine in the dark. What are the signs of overdose? Some controlled substances may cause breathing problems if you take more than your doctor recommends. This may lead to serious health problems or even . You and your caregivers should watch for the following signs of overdose. ?? Slurred speech, confusion or stumbling ?? Feeling dizzy or faint ?? Acting drowsy or groggy ?? Unusual snoring, gasping or snorting during sleep ?? Hard to wake up or keep awake What should I or my caregiver do if I overdose? You or your caregiver should call 911 if you have any of these problems: ?? Cannot wake up ?? Cannot talk after waking up ?? Shortness of breath, slow or light breathing, or breathing has stopped ?? Heartbeat is slow or stopped ?? Gurgling noise comes from the mouth or throat ?? Body is limp or seems lifeless ?? Face is pale or clammy ?? Fingernails or lips look blue or purple What is a TIFFANY report? TIFFANY is a system that tracks prescriptions of controlled substances in [place]. The TIFFANY report tells your doctor if you have been prescribed controlled substances in the past. Doctors must get a TIFFANY report before prescribing controlled substances. What can I do if the information in my TIFFANY report is wrong? You or your doctor may contact the dispenser who reported the information to TIFFANY. If the dispenser agrees that the information should be changed, he or she can fix the TIFFANY report. However, the dispenser may certify that the report is correct. If that is the case, you or your doctor may then call the [place] Drug Enforcement and Professional Practices Branch at .This will start an investigation of the error. * Rosaura RushDILLON - Adrienne Inman - 02/24/2025 4:03 PM EDT Images from the original note were not included. [id number] * Rosaura [facility]DILLON - Adrienne Inman - 02/24/2025 4:03 PM EDT Images from the original note [...] house or a medical facility. The correctional case records supervisor/social sciences research scientist will setthat up based on your insurance. [...] have questions or concerns about OPAT treatment? ?? Call the OPAT team at (Select Option 3 for IV Antibiotics/PICC Issues) between 8 a.m.-5 p.m. ?? After 5 p.m. or during weekends/ holidays, call the paging inner tube tuber machine operator at . Ask forthe infectious disease fellow superintendent division. Call the clinic if you have any of these: ?? Fevers greater than 100.5??F ?? An allergic reaction, such as rash ?? Nausea, vomiting, or diarrhea ?? New or returning redness near the IV line ?? Redness, pain, swelling, or pus around the IV line * Rosaura RushIR - Adrienne Inman - 02/24/2025 4:03 PM EDT Images from the original note [...] of your leg. This is also called ?Vxkcol-kl-Zxs Weight Bearing,? ?Toe-Touch Weight Bearing,? or ?Foot-Flat [...] [facility] - Adrienne Inman - 02/24/2025 4:02 PM EDT Images from the original note were not included. 595 Caring for Your PICC Line How to prevent infection and keep the line working. Why do I have a PICC? A PICC line can stay in place for a long stretch of time. It makes it easier to get the fluids and medicines you need. It also provides easy access to draw blood. This means you will need fewer needle sticks. How do I prevent infection? Always wash your hands. Clean your hands thoroughly. Use soap and water or hand conference services coordinator and wear gloves before touching the PICC line or supplies. Look for signs of infection. Check your skin near the line every day. Check for redness, warmth, swelling, pain, or pus or blood leaking. If you notice any of these, call your doctor right away. ?PICC line Keep your dressing clean, dry and intact. Change the dressing every 7 days. Or change it if it is wet, dirty or loose. If the dressing is even a little moist, it can breed infection. Do not get the dressing wet. Cover the whole dressing when you shower. Use a waterproof cover like plastic wrap or AquaGuard. What else can I do to care for my PICC line? Flush the line. You must do this: ?? After each use, AND ?? As instructed by the PICC line maker - this may be anywhere from every 12 hours to once a week This will keep the line from clogging. If the line seems hard to flush, tell your doctor right away. Never pull on the catheter. Protect it so it is not pulled on by accident. Clean the catheter caps. Wipe with an alcohol swab for 15 seconds. Clean them before you flush the line or malted milk supervisor fluids or medicines. Avoid hard physical work. Do not use the arm with the PICC line to: AquaGuard PICC with AquaGuard ?? Lift anything that weighs more than 10 pounds (A gallon of milk weighs a little less than 10 pounds.) ?? Do any repetitive motions Other than that, you may use the arm to do your normal activities. Avoid taking blood pressure in the arm with the PICC line. Remember these tips: ?? Preventing infection is the #1 goal in PICC line care. ?? Call your doctor right away if you have any sign of infection. ?? Always wash your hands and put on gloves before touching your PICC line. ?? Keep your dressing clean, dry, and in good shape. Change the dressing if it becomes wet, dirty, or loose. ?? Cover the dressing when you shower. Preventing infection is our #1 goal! Know the signs of infection: ?? Swelling ?? Pain ?? Redness ?? Warmth ?? Pus or blood leaking Check your skin near the PICC line daily. If you have any sign of infection, call your doctor rightaway. * Rosaura RushIR - Adrienne Inman - 02/24/2025 4:02 PM EDT Images from the original note were not included. 08441 Preventing a Surgical Site Infection A risk of any surgery is an infection at the surgical site. The surgical site is a cut the surgeon makes in the skin to do the surgery. Surgical site infections can range in type. It may be a minor skin infection. Or it may be severe and include tissue under the skin or other organs. In some cases,a severe infection can cause . The information below tells you: ?? About surgical site infections. ?? What hospitals do to prevent them. ?? How they?re treated if they do occur. ?? What you can do to prevent an infection. Hand washing reduces the risk of infection. What causes a surgical site infection? Germs are everywhere. They?re on your skin, in the air, and on things you touch. Many germs are good. Some are harmful. Surgical site infections occur when harmful germs enter your body through the incision in your skin. Some infections are caused by germs that are in the air or on objects. But most are caused by germs found on and in your own body. Who is at risk for a surgical site infection? Anyone can have a surgical site infection. Your risk is higher if you: ?? Are an older adult. ?? Have a weak immune system. ?? Have other health conditions such as diabetes. ?? Take certain medicines, such as steroids. ?? Are a smoker. ?? Have certain types of surgery, such as abdominal surgery. ?? Have poor nutrition. ?? Are very overweight. ?? Have a surgery that lasts longer than 2 hours. What are the symptoms of a surgical site infection? An infection often shows up as skin redness, pain, and swelling around the incision that gets worse. Later, a cloudy or greenish-yellow fluid may come from the incision. The fluid may smell bad. The incision may pull apart or open up. You are likely to have a fever and may feel very ill. Symptoms can appear at any time. They may happen from hours to weeks after surgery. Implants such as an artificial knee or hip can become infected at any time after the surgery. How is a surgical site infection treated? ?? A surgical site infection is treated with antibiotics. The type of medicine you get will depend on what may be causing the infection. Most serious wound infections need wound care. In some cases, surgery may be needed on the infected wound. ?? An infected skin wound may be reopened and cleaned. A deep wound may need to be packed with gauze. The gauze is changed often until the wound starts to heal from the inside out. Your health care provider will decide the best way to treat your infection. ?? If an infection occurs where an implant is placed, the implant may be removed. ?? If you have an infection deeper in your body, you may need surgery to treat it. What hospitals do to prevent surgical site infections Many hospitals take these steps to help prevent surgical site infections: ?? Handwashing. Before the surgery, your surgeon and all surgery staff scrub their hands and arms with an antiseptic soap. ?? Clean skin. The site where your incision is made is carefully cleaned with an antiseptic solution. ?? Sterile clothing and drapes. The surgical team wears medical uniforms. These are known as scrub suits. They wear long-sleeved surgical gowns, masks, caps, shoe covers, and sterile gloves. Your body is fully covered with a large sterile sheet (sterile drape). There is an opening in the sheet where the incision is made. ?? Clean air. Operating rooms have special air filters. They use positive pressure airflow to prevent unfiltered air from entering the room. ?? Careful use of antibiotics. Antibiotics are given no more than 60 minutes before the incision ismade. They are generally stopped within 24 hours after surgery. This depends on the type of surgery. This helps kill germs but prevents problems that can occur when antibiotics are taken longer. ?? Controlled blood sugar levels. Your blood sugar level may rise. This can be because of the stress of the surgery. Your blood sugar level is watched closely to make sure it stays within a normal range. High blood sugar delays wound healing. This increases the risk of infection. ?? Controlled body temperature. A bgoeg-tgku-rjsysx temperature during or after surgery prevents oxygen from reaching the wound. This makes it harder for your body to fight infection. Hospitals may warm I.V. fluids, and provide warm-air blankets. Your temperature is watched throughout the surgery. ?? Safe hair removal. Any hair that must be removed is clipped right before the incision, not shaved with a razor. This prevents tiny nicks and cuts where germs can enter. ?? Wound care. After surgery, a closed wound is covered with a sterile dressing for 1 to 2 days. Open wounds are packed with sterile gauze and covered with a sterile dressing. What you can do to prevent a surgical site infection ?? Ask questions. Learn what your hospital is doing to prevent infection. ?? If instructed, shower or bathe with plain soap the night before and the day of your surgery. Follow all instructions you're given. You may be asked to use a special cleanser that you don?t rinse off. ?? If you smoke, stop as long as possible before and after the surgery. Ask your provider about ways to quit. ?? Take antibiotics only when your provider tells you to. Using antibiotics when they?re not neededcan create germs that are harder to kill. Finish the entire prescription of your antibiotics even if you feel better. ?? Ask health care workers to clean their hands with plain soap and water or with an alcohol-based hand conference services coordinator before and after caring for you. Don?t be afraid to remind them. ?? After surgery, eat healthy foods. Care for your incision as directed by your health care team. When to contact your doctor Contact your provider or seek medical care right away if: ?? The pain at the surgical site gets worse. ?? A red streak, worse redness, or puffiness appears near the incision. ?? Yellowish, cloudy, or bad-smelling fluid leaks from the incision. ?? Your stitches dissolve before the wound heals. ?? You have a fever of 100.4?? F ( 38??C ) or higher, or as advised by your provider. ?? You have a tired feeling that doesn?t go away. Last Reviewed Date: 2024 00:00:00 ?? [id number] [employer]. All rights reserved. This information is not intended as a substitute for professional medical care. Always follow your healthcare professional's instructions. * Discharge Summary - Sushil Lea MD - 02/24/2025 3:48 PM EDT Hospitalization Admit Date/Time: 02/21/2025 9:35 AM Admitting Attending: Lawrence Hayes Discharge Date: 02/24/2025 Discharge Attending Physician: Lawrence Hayes MD PCP name and Address: Blaine Nava MD [address] [place], [place] [id number] [address] / [place] [address] Referring provider name and address: No referring provider defined for this encounter. Chief Concern, Brief History of Present Illness, and Hospital Course Patient has an extensive history of surgery for infection to the left lower extremity. He recently presented to clinic on 02/17 and was found to have a wound dehiscence after undergoing LLE I&D forS on 01/20. He presented this admission on 02/21 for scheduled I&D of the LLE with hardware. Theprocedure was tolerated well, and the patient was subsequently extubated and taken to the PACU for i mmediate post-operative monitoring. Following the PACU stay, the patient was transferred to the floor. On the day of discharge the patient was afebrile, tolerating PO pain medicine, voiding spontaneously and tolerating a regular diet. It was felt that the patient had reached maximal benefit from hos pitalization and was deemed ready for discharge. After discharge, the patient will follow-up outpatient in [facility] and continue IV antibiotic therapy per recommendations from Infectious Disease. Surgeries and Procedures INCISION AND DRAINAGE, LOWER EXTREMITY &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 Ongoing, Progressing Intervention: Mutually Develop Transition Plan Flowsheets (Taken 02/23/2025 0058) Readmission Within the Last 30 Days: planned readmission Problem: Infection Goal: Absence of Infection Signs and Symptoms Outcome: Ongoing, Progressing Intervention: Prevent or Manage Infection Flowsheets Taken 02/24/202534 Infection Management: aseptic technique maintained Isolation Precautions: precautions maintained protective Taken 02/21/20251939 Fever Reduction/Comfort Measures: lightweight bedding Problem: Fall Injury Risk Goal: Absence of Fall and Fall-Related Injury Outcome: Ongoing, Progressing Intervention: Identify and Manage Contributors Flowsheets (Taken 02/24/202534) Medication Review/Management: medications reviewed high-risk medications identified Self-Care Promotion: independence encouraged adaptive equipment use encouraged Intervention: Promote Injury-Free Environment Flowsheets (Taken 02/24/202534) Safety Promotion/Fall Prevention: activity supervised assistive device/personal items within reach clutter-free environment maintained fall prevention program maintained lighting adjusted mobility aid in reach nonskid shoes/slippers when out of bed room organization consistent safety round/check completed toileting scheduled Problem: Pain Acute Goal: Optimal Pain Control and Function Outcome: Ongoing, Progressing Intervention: Optimize Psychosocial Wellbeing Flowsheets Taken 02/24/202534 Supportive Measures: active listening utilized decision-making supported positive reinforcement provided self-care encouraged Taken 02/21/20251939 Diversional Activities: television smartphone * Care Plan - Cosmo Traylor RN - 02/23/2025 7:16 PM EDT Problem: Adult Inpatient Plan of Care Goal: Plan of Care Review 02/23/20251915 by Cosmo Traylor RN Outcome: Ongoing, Progressing Flowsheets (Taken 02/21/20250 by Renu Lepe, SHEREEN) Plan of Care Reviewed With: patient significant other 02/23/20251913 by Cosmo Traylor RN Flowsheets (Taken 02/21/20250 by Renu Lepe RN) Plan of Care Reviewed With: patient significant other Goal: Patient-Specific Goal (Individualized) 02/23/20251915 by Cosmo Traylor RN Outcome: Ongoing, Progressing Flowsheets (Taken 02/23/2025 07) Patient/Family-Specific Goals (Include Timeframe): Pt will remain free from fall/injury this shift and have controlled pain Individualized Care Needs: safety and pain Anxieties, Fears or Concerns: none 02/23/20251913 by Cosmo Traylor RN Flowsheets (Taken 02/23/2025 0700) Patient/Family-Specific Goals (Include Timeframe): Pt will remain free from fall/injury this shift and have controlled pain Individualized Care Needs: safety and pain Anxieties, Fears or Concerns: none Goal: Absence of Hospital-Acquired Illness or Injury Outcome: Ongoing, Progressing Intervention: Identify and Manage Fall Risk 02/23/20251915 by Cosmo Traylor RN Flowsheets (Taken 02/23/2025 191) Safety Promotion/Fall Prevention: clutter-free environment maintained lighting adjusted mobility aid in reach nonskid shoes/slippers when out of bed 02/23/20251913 by Cosmo Traylor RN Flowsheets (Taken 02/23/20251913) Safety Promotion/Fall Prevention: clutter-free environment maintained lighting adjusted mobility aid in reach nonskid shoes/slippers when out of bed Intervention: Prevent Skin Injury 02/23/20251915 by Cosmo Traylor RN Flowsheets (Taken 02/23/2025 0700) Body Position: weight shifting supine, legs elevated 02/23/20251913 by Cosmo Traylor RN Flowsheets (Taken 02/23/2025 0700) Body Position: weight shifting supine, legs elevated Intervention: Prevent and Manage VTE (Venous Thromboembolism) Risk 02/23/20251915 by Cosmo Tralyor RN Flowsheets (Taken 02/23/2025 1507) VTE Prevention/Management: medication 02/23/20251913 by Cosmo Traylor RN Flowsheets (Taken 02/23/2025 1507) VTE Prevention/Management: medication Intervention: Prevent Infection 02/23/20251915 by Cosmo Traylor RN Flowsheets (Taken 02/23/2025 191) Infection Prevention: environmental surveillance performed hand hygiene promoted 02/23/20251913 by Cosmo Traylor RN Flowsheets (Taken 02/23/20251913) Infection Prevention: environmental surveillance performed hand hygiene promoted Goal: Optimal Comfort and Wellbeing Outcome: Ongoing, Progressing Intervention: Monitor Pain and Promote Comfort Flowsheets (Taken 02/22/2025 1107 by Radha Corona RN) Pain Management Interventions: medication (see MAR) pillow support provided position adjusted Intervention: Provide Person-Centered Care Flowsheets (Taken 02/23/20251913) Trust Relationship/Rapport: care explained choices provided emotional support provided empathic listening provided Goal: Readiness for Transition of Care Outcome: Ongoing, Progressing Intervention: Mutually Develop Transition Plan Flowsheets (Taken 02/23/2025 0058 by Shelley Rodas, SHEREEN) Readmission Within the Last 30 Days: planned readmission Problem: Infection Goal: Absence of Infection Signs and Symptoms Outcome: Ongoing, Progressing Intervention: Prevent or Manage Infection 02/23/20251915 by Cosmo Traylor RN Flowsheets Taken 02/22/20251909 by Shelley Rodas RN Isolation Precautions: precautions maintained protective Taken 02/21/20251939 by Shelley Rodas RN Infection Management: aseptic technique maintained Fever Reduction/Comfort Measures: lightweight bedding 02/23/20251913 by Cosmo Traylor RN Flowsheets Taken 02/22/20251909 by Shelley Rodas RN Isolation Precautions: precautions maintained protective Taken 02/21/20251939 by Shelley Rodas RN Infection Management: aseptic technique maintained Fever Reduction/Comfort Measures: lightweight bedding Problem: Fall Injury Risk Goal: Absence of Fall and Fall-Related Injury Outcome: Ongoing, Progressing Intervention: Identify and Manage Contributors 02/23/20251915 by Cosmo Traylor RN Flowsheets (Taken 02/21/20251939 by Shelley Rodas, SHEREEN) Medication Review/Management: medications reviewed Self-Care Promotion: independence encouraged adaptive equipment use encouraged meal set-up provided 02/23/20251913 by Cosmo Traylor RN Flowsheets (Taken 02/21/20251939 by Shelley Rodas, RN) Medication Review/Management: medications reviewed Self-Care Promotion: independence encouraged adaptive equipment use encouraged meal set-up provided Intervention: Promote Injury-Free Environment 02/23/20251915 by Cosmo Traylor RN Flowsheets (Taken 02/23/20251913) Safety Promotion/Fall Prevention: clutter-free environment maintained lighting adjusted mobility aid in reach nonskid shoes/slippers when out of bed 02/23/20251913 by Cosmo Traylor RN Flowsheets (Taken 02/23/20251913) Safety Promotion/Fall Prevention: clutter-free environment maintained lighting adjusted mobility aid in reach nonskid shoes/slippers when out of bed Problem: Pain Acute Goal: Optimal Pain Control and Function Outcome: Ongoing, Progressing Intervention: Optimize Psychosocial Wellbeing 02/23/20251915 by Cosmo Traylor RN Flowsheets (Taken 02/21/20251939 by Shelley Rodas, RN) Supportive Measures: active listening utilized decision-making supported goal-setting facilitated self-care encouraged Diversional Activities: television smartphone 02/23/20251913 by Cosmo Traylor RN Flowsheets (Taken 02/21/20251939 by Shelley Rodas, RN) Supportive Measures: active listening utilized decision-making supported goal-setting facilitated self-care encouraged Diversional Activities: television smartphone Intervention: Develop Pain Management Plan Flowsheets (Taken 02/22/2025 110 by Radha Corona, SHEREEN) Pain Management Interventions: medication (see MAR) pillow support provided position adjusted Intervention: Prevent or Manage Pain Flowsheets (Taken 02/21/20251939 by Shelley Rodas, RN) Sensory Stimulation Regulation: television on visitors limited Bowel Elimination Promotion: adequate fluid intake promoted Medication Review/Management: medications reviewed * Progress Notes - Carolin Payan MD - 02/23/2025 10:48 AM EDT Orthopaedic Trauma Surgery Progress Note 02/23/25 Subjective: NAEON. Doing well. Pain controlled. Tolerating diet. No nausea, vomiting, fevers or chills. PatientIs POD 2 s/p removal of hardware and irrigation and debridement for left tibial plateau surgical site infection. Objective: Vitals: 02/23/25 0732 BP: 113/70 Pulse: 73 Resp: 16 Temp: 36.6 ??C (97.8 ??F) SpO2: 97% Physical Examination: No acute distress Non labored breathing Peripheral perfusion intact Focused Musculoskeletal Examination: LLE TROM brace is off and lying in the bed, Augustine wrap in place clean dry and intact Sensation to light touch intact to all terminal nerve distributions Dorsiflexion/plantarflexion, EHL/FHL motor intact 2+ palpable DP pulse, toes WWP Data: Labs in last 18 hours: CBC WBC ?? Hb ?? Plt ?? Hct ?? INR ??, PTT ??, Anti-Xa ?? BMP Na ?? Cl ?? BUN ?? Glu ?? K ?? Co2 ?? Cr ?? Lactate ?? Assessment & Plan: Panda Machado is a 34 y.o. male patient with the following orthopedic injuries: L tibial plateau SSI s/p I&D, KATHY (02/21) Edited by: García Shepherd MD at 02/21/2025 2509 - Pain control: MMPC - Diet: regular - PT/OT recommendations: will reassess in the postoperative period - Follow up: will follow up in orthopedic trauma clinic on 03/11 - Disposition: On daptomycin, ID co management Mobility Orders Mobility Protocol: Ortho/Trauma/Spine Mobility Guidelines Spinal Precautions: No cranial, cervical or thoracolumbar spinal precautions necessary Extremity Precautions: Extremity Precautions Extremity: LLE Mobility Restrictions (LLE): Non-weight bear (NWB) Type of Brace (LLE): TROM Brace TROM Brace Wear Time Protocol: Unlocked from 0 to (define degrees) Unlock Knee Brace from 0 Degrees to: 130 Other mobility precautions: No other precautions required Carolin Payan MD Orthopedic Surgery PGY-1 [facility] Cosigned by Lawrence Hayes MD at 02/26/2025 9:46 AM EDT * Care Plan - Shelley Rodas RN - 02/23/2025 1:00 AM EDT Problem: Adult Inpatient Plan of Care Goal: Plan of Care Review Outcome: Ongoing, Progressing Goal: Patient-Specific Goal (Individualized) Outcome: Ongoing, Progressing Flowsheets (Taken 02/22/2025 1910) Patient/Family-Specific Goals (Include Timeframe): pt will have adequately controlled pain with goal of 4/10 Individualized Care Needs: pain control Anxieties, Fears or Concerns: pain Goal: Absence of Hospital-Acquired Illness or Injury Outcome: Ongoing, Progressing Intervention: Identify and Manage Fall Risk Flowsheets (Taken 02/22/20251909) Safety Promotion/Fall Prevention: activity supervised clutter-free environment maintained fall prevention program maintained lighting adjusted mobility aid in reach nonskid shoes/slippers when out of bed room organization consistent safety round/check completed toileting scheduled Intervention: Prevent Skin Injury Flowsheets (Taken 02/22/20251909) Body Position: position maintained weight shifting Intervention: Prevent and Manage VTE (Venous Thromboembolism) Risk Flowsheets (Taken 02/22/20251909) VTE Prevention/Management: right SCDs (sequential compression devices) on Intervention: Prevent Infection Flowsheets (Taken 02/23/202557) Infection Prevention: environmental surveillance performed hand hygiene promoted rest/sleep promoted single patient room provided Goal: Optimal Comfort and Wellbeing Outcome: Ongoing, Progressing Intervention: Monitor Pain and Promote Comfort Flowsheets (Taken 02/22/2025 1107 by Radha Corona RN) Pain Management Interventions: medication (see MAR) pillow support provided position adjusted Intervention: Provide Person-Centered Care Flowsheets (Taken 02/23/202557) Trust Relationship/Rapport: care explained choices provided emotional support provided empathic listening provided reassurance provided thoughts/feelings acknowledged Goal: Readiness for Transition of Care Outcome: Ongoing, Progressing Intervention: Mutually Develop Transition Plan Flowsheets (Taken 02/23/202557) Readmission Within the Last 30 Days: planned readmission Problem: Infection Goal: Absence of Infection Signs and Symptoms Outcome: Ongoing, Progressing Intervention: Prevent or Manage Infection Flowsheets Taken 02/22/20251909 Isolation Precautions: precautions maintained protective Taken 02/21/20251939 Infection Management: aseptic technique maintained Fever Reduction/Comfort Measures: lightweight bedding Problem: Fall Injury Risk Goal: Absence of Fall and Fall-Related Injury Outcome: Ongoing, Progressing Intervention: Identify and Manage Contributors Flowsheets (Taken 02/21/20251939) Medication Review/Management: medications reviewed Self-Care Promotion: independence encouraged adaptive equipment use encouraged meal set-up provided Problem: Pain Acute Goal: Optimal Pain Control and Function Outcome: Ongoing, Progressing Intervention: Optimize Psychosocial Wellbeing Flowsheets (Taken 02/21/20251939) Supportive Measures: active listening utilized decision-making supported goal-setting facilitated self-care encouraged Diversional Activities: television smartphone * Progress Notes - Amber Vanegas - 02/22/2025 9:38 AM EDT Physical Therapy Evaluation Patient Name: Panda Machado Today's Date: 02/22/2025 PT Discharge Recommendations: Home with assistance, Outpatient PT Equipment Recommended: Patient owns appropriate equipment History Panda Machado is 34 y.o. male admitted 02/21/2025 for work-up of Surgical site infection. Problem List Active Hospital Problems Diagnosis Date Noted Tibial plateau fracture, left, closed, initial encounter 02/17/2025 Surgical site infection 02/17/2025 Procedures 02/21/2025 Procedure(s): INCISION AND DRAINAGE, LOWER EXTREMITY & removal of hardware - placement of ABX beads Past Medical History Patient has a past medical history of Fractures (09/09/2022). Past Surgical History Patient has a past surgical history that includes Leg Surgery (Left); Knee surgery (Left, 01/18/2025); orthopedic surgery (09/06/2022); Erika nail IM rodding (Left, 09/10/2024); ORIF tibia fracture (Left, 09/15/2023); orif tibial plateu fracture (Left, 01/01/2025); and incision and drainage, leg (Left, 01/20/2025). Precautions Left Lower Extremity Weight Bearing Status: Non-Weight Bearing Medical Precautions: Fall precautions Subjective RN and pt agreeable to therapy session. Participants in Care Family/Caregiver Present: No Sandwich Artist: Not Applicable PRESENTATION Oxygen None (Room air) Telemetry no Lines and Tubes PICC Single Lumen 01/21/25 Left Basilic vein (Active) Negative Pressure Wound Therapy Leg Anterior;Left;Lower;Proximal (Active) Pre-Session Supine, Head of bed elevated, Lines intact. RN agreeable to therapy session. RN clearedpatient for OT session. Post-Session Head of bed elevated, Supine, Lines intact, RN notified, Call light in reach. All needs in reach. All needs met. 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 Prior Level of Function Receives Help From: No assist required prior to admission Level of Mobility: Ambulatory- community Mobility [place]: Independent gait without device History of Falls: No ADL Performance: Independent Objective Pain Pain Score (0-10): Pt does not rate Location: LLE Intervention: ambulation/increased activity, position adjusted, pillow support provided, and emotional support provided Response: comfortable at end of [...] Intact Left Lower Extremity Examination LLE Assessment: (hip and knee at least 0-90 at EOB; ankle WFL) Manual Muscle Testing: (at least 3/5) Sensation Light Touch: Left Lower Extremity: Intact Therapeutic Activity (10 minutes) Pt participated in therAct focused on increasing pt's independence with bed mobility, transfers, balance, and ambulation and increasing his tolerance to upright mobility. Please see specific sectionsfor details. Pt educated on discharge recommendations and agreement. Bed Mobility Bed Mobility Interventions: Pt completed a supine to sit transfer with SBA withou difficulty. At end of session, pt requested to return to supine at end of session and completed a sit to supine transfer with SBA. Bed Mobility Exam: Supine to Sit Level of [place]: Stand-by assist Physical/Nonphysical Assist: Verbal Cues Bed Mobility Exam: Sit to Supine Level of [place]: Stand-by assist Physical/Nonphysical Assist: Verbal Cues Transfers Transfer Interventions: Pt completed a sit to stand transfer with SBA and min cues for safety and maintaing NWB of LLE with good carry over. For stand to sit cues provided for reaching back for surface, extending LLE and eccentric control wtih good carry over. Transfer Exam: Sit to stand Level of [place]: Stand-by assist Physical/Nonphysical Assist: Verbal Cues Assistive Device: Walker, rolling Transfer Exam: Stand to Sit Level of [place]: Stand-by assist Physical/Nonphysical Assist: Verbal Cues Assistive Device: Walker, rolling Balance Postural Appearance Posture: Within Functional Limits Static Sitting Balance Static Sitting-Balance Support: Feet supported Static Sitting-Level of Assistance: Independent Dynamic Sitting Balance Dynamic Sitting-Balance Support: Feet supported Dynamic Sitting-Balance: Lateral weight shifts, Anterior/Posterior weight shifts Level of Assistance: Independent Static Standing Balance Static Standing-Balance Support: Right upper extremity support, Left upper extremity support Static Standing-Level of Assistance: Standby assist Dynamic Standing Balance Dynamic Standing-Balance Support: Right upper extremity support, Left upper extremity support Dynamic Standing-Balance: Lateral weight shifts, Anterior/Posterior weight shifts Dynamic Standing Level of Assistance: Standby assist Ambulation Device: Rolling walker Assistance: Standby assist Distance : 40ft Ambulation Comments: Pt completed ~40ft of ambulation with RW And SBA. He utilizes 3 point gait pattern and is fully complaint wiht NWB status of LLE throughout ambulation. Min cues provided for pacing and increasing weight bearing through BUEs to increase foot clearance on RLE with good carry over. Pt deferred need to trial stairs as he has been through being NWB several times over the past 3 years and can easily navigate his one step. Discussed going up backwards and pt verbalized understand and reports this is the method he uses. Standardized Assessments Standardized Assessments Standardized Assessments: [facility] 6-Clicks Mobility Assessment [facility] 6-Clicks Mobility Assessment Difficulty patient has turning over in bed (including adjusting bedclothes, sheets, and blankets)?:A little Difficulty patient has sitting down on and standing up from a chair with arms (wheelchair, bedside commode, etc.)?: A little Difficulty patient has moving from lying on back to sitting on the side of the bed?: A little How much help does the patient need moving to and from a bed to a chair (including a wheelchair)?: A little How much help does the patient need to walk in hospital room?: A little How much help does the patient need climbing 3-5 steps with a railing?: A little [facility] 6-Clicks Mobility Assessment Total : 18 Assessment PT evaluation completed this date in addition to therAct. At this time, pt completes all mobility with SBA. He does not demonstrate further acute skilled PT needs. When medically ready, pt is safe toreturn home with assist as needed and outpatient PT. He owns appropriate equipment. PT to sign off.Please re- consult if changes occur. Thank you. Impairments: Impaired gait dynamics/performance, Decreased endurance, ventilation, and/or gas exchange, Decreased strength Participation Restrictions: Work Activity Tolerance: Tolerates 10 - 20 min activity with multiple rests Evaluation/Treatment Tolerance: Patient limited by fatigue Eval Complexity History Profile: 1 - 2 personal factors and/or comorbidities Clinical Presentation: Stable and/or uncomplicated characteristics Clinical Decision Making: Low complexity PT Recommendations Discharge Destination: Home with assistance, Outpatient PT Discharge Equipment: Patient owns appropriate equipment Plan Patient no longer demonstrates need for inpatient physical therapy services. Patient to be discharged from physical therapy. Written by Amber Vanegas on 02/22/25 at 9:47 AM. * Progress Notes - Raheem Campos - 02/22/2025 9:29 AM EDT Occupational Therapy Evaluation/Discharge Summary Patient Name: Panda Machado Today's Date: 02/22/2025 OT Discharge Recommendations: Home with assistance, Outpatient PT Equipment Recommended: Patient owns appropriate equipment History Panda Machado is 34 y.o. male admitted 02/21/2025 for work-up of Surgical site infection. Problem List Active Hospital Problems Diagnosis Date Noted Tibial plateau fracture, left, closed, initial encounter 02/17/2025 Surgical site infection 02/17/2025 Procedures 02/21/2025 Procedure(s): INCISION AND DRAINAGE, LOWER EXTREMITY & removal of hardware - placement of ABX beads Past Medical History Patient has a past medical history of Fractures (09/09/2022). Past Surgical History Patient has a past surgical history that includes Leg Surgery (Left); Knee surgery (Left, 01/18/2025); orthopedic surgery (09/06/2022); Erika nail IM rodding (Left, 09/10/2024); ORIF tibia fracture (Left, 09/15/2023); orif tibial plateu fracture (Left, 01/01/2025); and incision and drainage, leg (Left, 01/20/2025). Precautions Left Lower Extremity Weight Bearing Status: Non-Weight Bearing Medical Precautions: Fall precautions Subjective Patient agreeable to initial OT evaluation this a.m. Participants in Care Family/Caregiver Present: No Sandwich Artist: Not Applicable Presentation Oxygen Therapy: None (Room air) Lines and Tubes: Intravenous access Pre-Session: Supine, Head of bed elevated, Lines intact Pre-Session Comments: RN agreeable to therapy session. Post-Session: Head of bed elevated, Supine, Lines intact, RN notified, Call light in reach Post-Session Comments: All needs in reach. 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 Prior Level of Function Receives Help From: No assist required prior to admission Level of Mobility: Ambulatory- community Mobility [place]: Independent gait without device History of Falls: No ADL Performance: Independent Patient/Family Goals Statement Objective Pain Patient c/o left LE pain. RN aware. Delirium Screening Vera Agitation Sedation Scale (RASS): Alert and calm Confusion Assessment Method-ICU (CAM-ICU/PCAM-ICU) Feature 3: Altered Level of Consciousness: Negative Cognition Overall Cognitive Status: Within Functional Limits Arousal/Alertness: Appropriate responses to stimuli Mood/Behavior: Alert Orientation Level: Oriented X4 Single Step Commands: Consistently Multi-Step Commands: Consistently Method of Communication: Verbal Right Upper Extremity Examination RUE ROM Assessment [...] Extremity Examination LLE ROM Assessment LLE Assessment: (hip and knee at least 0-90 at EOB; ankle WFL) Manual Muscle Testing: (at least 3/5) Sensation Light Touch: Left Lower Extremity: Intact Bed Mobility Bed Mobility Exam: Scooting/Bridging Level of [place]: Stand-by assist Physical/Nonphysical Assist: Verbal Cues Bed Mobility Exam: Supine to Sit Level of [place]: Stand-by assist Physical/Nonphysical Assist: Verbal Cues Bed Mobility Exam: Sit to Supine Level of [place]: Stand-by assist Physical/Nonphysical Assist: Verbal Cues Transfers Transfer Exam: Sit to stand Level of [place]: Stand-by assist Physical/Nonphysical Assist: Verbal Cues Assistive Device: Walker, rolling Transfer Exam: Stand to Sit Level of [place]: Stand-by assist Physical/Nonphysical Assist: Verbal Cues Assistive Device: Walker, rolling Functional Mobility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 beneath the subchondral surface were also visualized and removed with a needle warehouse delivery driver. Cultures from the lateral wound were also sent.The wounds were irrigated with copious amounts of normal saline. Vanc and Tobramycin powder were applied to secure a mixture and antibiotic beads were created. Once performed, these were applied to the medial and lateral wounds. Layered closure was then performed using PDS suture for the deep and dermal layer. Skin was closed with nylon sutures. Dry dressings were applied. Drapes were removed. Patient was placed into a hinged knee brace unlocked. He was awakened from anesthesia and transferred to his hospital bed. He was transferred to PACU for further recovery. No intraoperative complications were noted. Postoperative plan: Patient will be nonweightbearing to the left lower extremity with range of motion in the brace. Infectious disease team will be contacted as they are following the patient to ensure appropriate antibiotic management. Once stable for discharge he will follow up in clinic in 2-3 weeks for skin check and suture removal. Complications: None; patient tolerated the procedure well. Submitted by: Lawrence Hayes MD - 02/21/2025 * H&P - García Shepherd MD - 02/21/2025 1:30 PM EDT Images from the original note were not included. Subjective Chief complaint Left lower extremity surgical site infection History Of Present Illness Panda Machado is a 34 y.o. male presenting for scheduled surgery for the above mentioned complaint. Patient has an extensive history of surgery for infection to the left lower extremity. Patient most recently underwent I&D for SSI on 01/20. He presented to clinic on 02/17 where wound dehiscence was identified. He was then scheduled for repeat I&D today with possible removal of all hardw are. Patient reports unchanged symptoms. No fevers, chills, night sweats. Medical/Surgical/Social/Family History I have reviewed and updated the patient history. Travel History Relevant International Travel History: Travel Screening Question Response Have you been in contact with someone who was sick? No / Unsure Do you have any of the following new or worsening symptoms? None of these Have you traveled internationally or domestically in the last month? No Travel History Travel since 01/22/25 No documented travel since 01/22/25 Relevant Domestic Travel History: none Immunizations Not reviewed Allergies [place] Medications Current Medications[1] Objective Review of Systems All other systems reviewed and are negative. Physical Exam Vitals reviewed. Constitutional: General: He is not in acute distress. Appearance: Normal appearance. HENT: Head: Normocephalic and atraumatic. Right Ear: External ear normal. Left Ear: External ear normal. Nose: Nose normal. Mouth/Throat: Mouth: Mucous membranes are dry. Eyes: Extraocular Movements: Extraocular movements intact. Cardiovascular: Pulses: Normal pulses. Pulmonary: Effort: Pulmonary effort is normal. Abdominal: General: Abdomen is flat. Musculoskeletal: Cervical back: Normal range of motion. Comments: LLE: dressings place, NVI distally Skin: General: Skin is warm and dry. Capillary Refill: Capillary refill takes less than 2 seconds. Neurological: General: No focal deficit present. Mental Status: He is alert. Psychiatric: Mood and Affect: Mood normal. Behavior: Behavior normal. Last Recorded Vitals Blood pressure (!) 169/71, pulse 91, temperature 36.7 ??C (98 ??F), temperature source Oral, resp. rate 16, weight 150 kg (330 lb), SpO2 98%. Results Review {Vanishing Link Review Results :[id number] I have reviewed the latest lab and imaging results. Assessment & Plan Surgical site infection Tibial plateau fracture, left, closed, initial encounter -extremity marked -informed consent reviewed -to OR today 02/21 for irrigation and debridement with removal of hardware Left lower extremity [1] Current Facility-Administered Medications Medication Dose Route Frequency Provider Last Rate Last Admin sodium chloride 0.9 % flush 10 mL 10 mL Intravenous q12h Stella Brown APRN 10 mL at 02/21/25 1143 And sodium chloride 0.9 % flush 10 mL 10 mL Intravenous PRN Stella Brown APRN Cosigned by Lawrence Hayes MD at 02/21/2025 4:36 PM EDT * PAT Phone Note - Sapna Blanco RN - 02/18/2025 12:58 PM EDT HPI Panda Machado is a 34 y.o. male who presents with Pre-op Diagnosis * Tibial plateau fracture, left, closed, initial encounter [S82.142A] * Surgical site infection [T81.49XA] now scheduled for INCISION AND DRAINAGE, LOWER EXTREMITY (Left). Date scheduled is 02/21/2025. Past Medical History[1] Family History[1] Social History[1] SURGICAL HISTORY: Surgical History[1] Allergies[1] MEDICATIONS: Current Medications[1] Sapna Blanco RN [1] Past Medical History: Diagnosis Date Fractures 09/09/2022 [1] Family History Problem Relation Name Age of Onset Malig Hyperthermia Neg Hx [1] Social History Tobacco Use Smoking status: Every Day Current packs/day: 1.00 Average packs/day: 1 pack/day for 15.0 years (15.0 ttl pk-yrs) Types: Cigarettes Smokeless tobacco: Never Vaping Use Vaping status: Never Used Substance Use Topics Alcohol use: Never Drug use: Never [1] Past Surgical History: Procedure Laterality Date INCISION AND DRAINAGE, LEG Left 01/20/2025 ([facility]) INCISION AND DRAINAGE, LOWER EXTREMITY (Left: Leg Lower) KNEE SURGERY Left 01/18/2025 ([facility]) INCISION AND DRAINAGE, LOWER EXTREMITY (Left: Leg Lower) LEG SURGERY Left ERIKA NAIL IM RODDING Left 09/10/2024 ([facility]) INSERTION, INTRAMEDULLARY VICK, FEMUR (Left: Leg Upper) ORIF TIBIA FRACTURE Left 09/15/2023 ([facility]) ORIF, FRACTURE, TIBIA, PLATEAU (Left: Leg Lower) ORIF TIBIAL PLATEU FRACTURE Left 01/01/2025 ([facility]) ORIF, FRACTURE, TIBIA, PLATEAU (Left: Knee) ORTHOPEDIC SURGERY 09/06/2022 Had 4 other similar surgeries [1] Allergies Allergen Reactions [place] Hives [1] No current facility-administered medications for this encounter. Current Outpatient Medications: acetaminophen, Take 2 tablets by mouth every 6 hours as needed for pain. DAPTOmycin, Infuse 22 mL into a venous catheter 1 (one) time each day at the same time over 3 minutes. Inpatient/ specific directions only. Mix and deliver per institution/facility policy. Enoxaparin Sodium (LOVENOX IJ), Inject 1 Dose as directed 2 times a day. ibuprofen, Take 1 tablet by mouth every 6 hours as needed for mild pain. VITAMIN D PO, Take 1 tablet by mouth daily. methocarbamol, Take 1 tablet by mouth every 6 hours as needed for muscle spasms. (Patient not taking: No sig reported) multivitamin, Take 1 tablet by mouth 1 (one) time each day. (Patient not taking: No sig reported) naloxone, 1. Give 1 spray in nostril for no/slow breathing or cannot wake after opioid use 2. Call 911 3. Repeat in other nostril if symptoms continue Paul, Take 1 packet by mouth 2 times a day. (Patient not taking: No sig reported) oxyCODONE, Take 1 capsule by mouth every 6 hours as needed for severe pain. (Patient not taking: Nosig reported) senna-docusate, Take 1 tablet by mouth 2 times a day. (Patient not taking: No sig reported) * Preprocedure Instructions - Sapna Blanco RN - 02/18/2025 12:57 PM EDT Home Medication Instructions Current Medications Medication Instructions acetaminophen (Tylenol) 500 MG tablet Take as needed DAPTOmycin (Cubicin) injection Take at noon as per home routine Enoxaparin Sodium (LOVENOX IJ) Medication will be completed 02/19/25 ibuprofen 400 MG tablet Hold day of surgery VITAMIN D PO Hold day of surgery General Preoperative Instructions You will be called the business day before surgery with your arrival time Do not eat or drink anything after midnight except water with your medications unless other instructions are given No alcohol or smoking prior to surgery Arrive on time to avoid delays Parking/Registration procedure explained You MUST have a responsible adult available for transport to and from hospital Visitation policy for the day of surgery reviewed Bring insurance card, photo ID, along with power of defense attorney, guardianship or advanced directives if applicable Do not bring money, jewelry or other valuables Hibiclens or dial soap bathing instructions reviewed if applicable Notify surgeon of fever, illness, any changes or if you decide not to have surgery No solid food or milk after midnight Clear liquids 2 hours prior to arrival for surgery (water, Gatorade, or apple juice.) documented in this encounter Plan of Treatment Upcoming Encounters Date Type Department Care Team (Late st Contact Info) Description 2025 7:50 AM EDT Office Visit [facility] [address] [place] [address] Stella Brown, YUN [address] [place] [phone] 2025 10:30 AM EDT Office Visit [facility] [address] [place] [phone] Santiago Escalante MD [address] [place] [phone] 03/27/2025 9:30 AM EDT Office Visit [address] [phone] Santiago Escalante MD [address] [place] [phone] Pending Results Name Type Priority Associated Diagnoses Date /Time AFB Culture, Non Respiratory Source and Acid Fast Stain Microbiology Routine Tibial plateau fracture, left, closed, initial encounter Surgical site infection 02/21/2025 3:00 PM EDT Fungal Culture, Tissue and SYEDA Microbiology Routine Tibial plateau fracture, left, closed, initial encounter Surgical site infection 02/21/2025 3:00 PM EDT AFB Culture, Non Respiratory Source and Acid Fast Stain Microbiology Routine Tibial plateau fracture, left, closed, initial encounter Surgical site infection 02/21/2025 3:14 PM EDT Fungal Culture, Tissue and SYEDA Microbiology Routine Tibial plateau fracture, left, closed, initial encounter Surgical site infection 02/21/2025 3:14 PM EDT documented as of this encounter Procedures Procedure Name Priority Date/Time Associated Diagnosis Comments BASIC METABOLIC PANEL, PLASMA Pending Discharge 02/24/2025 7:04 AM EDT CBC W/O DIFFERENTIAL Routine 02/22/2025 2:24 AM EDT BASIC METABOLIC PANEL, PLASMA Routine 02/22/2025 2:24 AM EDT MULTI DRUG RESISTANCE TEST Routine 02/21/2025 6:24 PM EDT FUNGAL CULTURE, TISSUE AND SYEDA Routine 02/21/2025 3:14 PM EDT Tibial plateau fracture, left, closed, initial encounter Surgical site infection AFB CULTURE, NON RESPIRATORY SOURCE AND ACID FAST STAIN Routine 02/21/2025 3:14 PM EDT Tibial plateau fracture, left, closed, initial encounter Surgical site infection TISSUE CULTURE AND GRAM STAIN Routine 02/21/2025 3:14 PM EDT Tibial plateau fracture, left, closed, initial encounter Surgical site infection ANAEROBIC CULTURE Routine 02/21/2025 3:1 4 PM EDT Tibial plateau fracture, left, closed, initial encounter Surgical site infection FUNGAL CULTURE, TISSUE AND SYEDA Routine 02/21/2025 3:00 PM EDT Tibial plateau fracture, left, closed, initial encounter Surgical site infection AFB CULTURE, NON RESPIRATORY SOURCE AND ACID FAST STAIN Routine 02/21/2025 3:00 PM EDT Tibial plateau fracture, left, closed, initial encounter Surgical site infection FL LESS THAN 1 HOUR (NON-REPORTABLE) Routine 02/21/2025 3:00 PM EDT TISSUE CULTURE AND GRAM STAIN Routine 02/21/2025 3:00 PM EDT Tibial plateau fracture, left, closed, initial encounter Surgical site infection ANAEROBIC CULTURE Routine 02/21/2025 3:0 0 PM EDT Tibial plateau fracture, left, closed, initial encounter Surgical site infection NC DRAIN LOWER LEG DEEP ABSC/HEMATOMA 02/21/2025 2:09 PM EDT Tibial plateau fracture, left, closed, initial encounter Surgical site infection POCT GLUCOSE METER UNSOLICITED RESULTS Routine 02/21/2025 11:50 AM EDT CREATINE KINASE, TOTAL, PLASMA Add-On 02/21/2025 11:43 AM EDT PROTHROMBIN TIME(PT) / INR Routine 02/21/2025 11:43 AM EDT CBC WITH AUTO DIFFERENTIAL Routine 02/21/2025 11:43 AM EDT TYPE AND SCREEN Routine 02/21/2025 11:43 AM EDT BASIC METABOLIC PANEL, PLASMA Routine 02/21/2025 11:43 AM EDT documented in this encounter Results * Basic metabolic panel (02/24/2025 7:04 AM EDT) Glucose, Plasma 91 74 - 99 mg/dL 02/24/2025 7:37 AM EDT [facility] BUN, Plasma 16 7 - 21 mg/dL 02/24/2025 7:37 AM EDT [facility] Creatinine, Plasma 0.89 0.70 - 1.20 mg/dL 02/24/2025 7:37 AM EDT [facility] BUN/Creatinine Ratio 18 02/24/2025 7:37 AM EDT [facility] Sodium, Plasma 137 136 - 145 mmol/L 02/24/2025 7:37 AM EDT [facility] Potassium, Plasma 4.6 3.6 - 4.9 mmol/L 02/24/2025 7:37 AM EDT [facility] Chloride, Plasma 101 97 - 107 mmol/L 02/24/2025 7:37 AM EDT [facility] CO2, Plasma 26 22 - 29 mmol/L 02/24/2025 7:37 AM EDT [facility] Anion Gap 10 6 - 16 mmol/L 02/24/2025 7:37 AM EDT [facility] Total Calcium, Plasma 9.2 8.9 - 10.2 mg/dL 02/24/2025 7:37 AM EDT [facility] eGFRcr 114.6 mL/min/1.7 3m*2 02/24/2025 7:37 AM EDT [facility] Comment:Reported eGFRcr in m L/min/1.73m2 is based the CKD-EPI 2020 equation that does not use a race coefficient. Blood Venous blood specimen / Unknown Venipuncture / Unknown 02/24/2025 7:04 AM EDT 02/24/2025 7:10 AM EDT us Lawrence Hayes MD LAB BLOOD ORDERABLES Final Re sult [facility] [address] [place] [address] * (ABNORMAL) Basic metabolic panel (02/22/2025 2:24 AM EDT) Glucose, Plasma 150(H) 74 - 99 mg/dL 02/22/2025 2:56 AM EDT [facility] BUN, Plasma 20 7 - 21 mg/dL 02/22/2025 2:56 AM EDT [facility] Creatinine, Plasma 0.98 0.70 - 1.20 mg/dL 02/22/2025 2:56 AM EDT [facility] BUN/Creatinine Ratio 20 02/22/2025 2:56 AM EDT [facility] Sodium, Plasma 138 136 - 145 mmol/L 02/22/2025 2:56 AM EDT [facility] Potassium, Plasma 5.2(H) 3.6 - 4.9 mmol/L 02/22/2025 2:56 AM EDT [facility] Chloride, Plasma 101 97 - 107 mmol/L 02/22/2025 2:56 AM EDT [facility] CO2, Plasma 25 22 - 29 mmol/L 02/22/2025 2:56 AM EDT [facility] Anion Gap 12 6 - 16 mmol/L 02/22/2025 2:56 AM EDT [facility] Total Calcium, Plasma 9.2 8.9 - 10.2 mg/dL 02/22/2025 2:56 AM EDT [facility] eGFRcr 103.1 mL/min/1.7 3m*2 02/22/2025 2:56 AM EDT [facility] Comment:Reported eGFRcr in m L/min/1.73m2 is based the CKD-EPI 2020 equation that does not use a race coefficient. Blood Venous blood specimen / Unknown Venipuncture / Unknown 02/22/2025 2:24 AM EDT 02/22/2025 2:28 AM EDT us Lawrence Hayes MD LAB BLOOD ORDERABLES Final Re sult [facility] [address] [place] [address] * (ABNORMAL) CBC (02/22/2025 2:24 AM EDT) [facility] Signature WBC Count 10.82(H) 3.70 - 10.30 10*3/uL LAB HEMATOLOGY METHOD 02/22/2025 2:36 AM EDT [facility] RBC Count 3.92(L) 4.60 - 6.10 10*6/uL LAB HEMATOLOGY METHOD 02/22/2025 2:36 AM EDT [facility] HGB 11.9(L) 13.7 - 17.5 g/dL LAB HEMATOLOGY METHOD 02/22/2025 2:36 AM EDT [facility] HCT 35.5(L) 40.0 - 51.0 % LAB HEMATOLOGY METHOD 02/22/2025 2:36 AM EDT [facility] Platelet Count 296 155 - 369 10*3/uL LAB HEMATOLOGY METHOD 02/22/2025 2:36 AM EDT [facility] MCV 91 79 - 98 fL LAB HEMATOLOGY METHOD 02/22/2025 2:36 AM EDT [facility] MCH 30.4 26.0 - 32.0 pg LAB HEMATOLOGY METHOD 02/22/2025 2:36 AM EDT [facility] MCHC 33.5 30.7 - 35.5 g/dL LAB HEMATOLOGY METHOD 02/22/2025 2:36 AM EDT [facility] RDW 12.9 11.5 - 14.5 % LAB HEMATOLOGY METHOD 02/22/2025 2:36 AM EDT [facility] MPV 9.6 8.8 - 12.5 fL LAB HEMATOLOGY METHOD 02/22/2025 2:36 AM EDT [facility] nRBC 0.0 <=0.0 per 100 WBCs LAB HEMATOLOGY METHOD 02/22/2025 2:36 AM EDT [facility] Blood Venous blood specimen / Unknown Venipuncture / Unknown 02/22/2025 2:24 AM EDT 02/22/2025 2:28 AM EDT us Lawrence Hayes MD LAB BLOOD ORDERABLES Final Re sult [facility] [address] [place] [address] * Multi Drug Resistance Test (02/21/2025 6:24 PM EDT) Culture No growth at day 1 02/22/2025 8:30 PM EDT [facility] Swab (Nares and Janeth Rectal) Non-blood Collection / Unknown 02/21/2025 6:24 PM EDT 02/21/2025 6:56 PM EDT Narrative [facility] - 02/22/2025 8:30 PM EDT This test was developed and its performance characteristics determined by the [facility]. Although the media is FDA-approved, it is not FDA-approved for all specimen types submitted. The FDA has determined that such clearance or approval is not necessary. This test is used for surveillance purposes. It should not be regarded as investigational or for research. The [facility] is certified under the Clinical Laboratory Improvement Amendments of 1988 (CLIA-88) as qualified to perform high complexity clinical laboratory testing. us Lawrence Hayes MD LAB MICROBIOLOGY - GENERAL OR DERABLES Final Result Performing Organization Address City/[facility]/ZIP Co de Phone Number [facility] [address] [place] [address] * Tissue Culture and Gram Stain (02/21/2025 3:14 PM EDT) Culture No growth at day 4 2024 2:36 PM EDT [facility] Gram Stain Result Rare Polymorphonuclear leukocytes 02/25/2025 2:36 PM EDT [facility] Gram Stain Result No organisms seen 02/25/2025 2:36 PM EDT [facility] Tissue Structure of left knee region / Unknown 02/21/2025 3:14 PM EDT 02/21/2025 4:40 PM EDT Comment:Pre-op diagnosis: Tibial plateau fracture, left, closed, initial encounter [S82.142A] Surgical site infection [T81.49XA] Lawrence Hayes MD LAB MICROBIOLOGY - GENERAL OR DERABLES Final Result Performing Organization Address City/[facility]/ZIP Co de Phone Number [facility] [address] [place] [address] * Anaerobic Culture (02/21/2025 3:14 PM EDT) Culture No growth at day 4 02/28/2025 12:46 PM EDT [facility] Tissue Structure of left knee region / Unknown 02/21/2025 3:14 PM EDT 02/21/2025 4:40 PM EDT Comment:Pre-op diagnosis: Tibial plateau fracture, left, closed, initial encounter [S82.142A] Surgical site infection [T81.49XA] Lawrence Hayes MD LAB MICROBIOLOGY - GENERAL OR DERABLES Final Result Performing Organization Address [facility] Co de Phone Number [address] [address] * FL Less than 1 Hour Intraoperative (02/21/2025 3:00 PM EDT) Narrative IMAGING - 02/21/2025 5:00 PM EDT Images were obtained for surgical purposes. See Lawrence Hayes's surgical note in the patient's chart for the findings. Lawrence Hayes MD IMG FLUOROSCOPY PROCEDURES Fi nal Result Performing Organization Address [facility] Co de Phone Number IMAGING * (ABNORMAL) Tissue Culture and Gram Stain (02/21/2025 3:00 PM EDT) Culture 2+ Klebsiella pneumoniae(A) JOVANI 02/25/2025 2:52 PM EDT [facility] Comment: This isolate has been identified using the FDA Approved Cloudabilityyper [place] System The organism value for this result has been updated. These results have been appended to the previously preliminary verified report. Edited result: Previously reported as Gram Negative Vick on 02/23/2025 at 0758 EDT. Culture 2+ Corynebacterium amycolatum(A) JOVANI 02/25/2025 2:52 PM EDT [facility] Comment: This isolate has been identified using the FDA Approved MALDI gridCommyper [place] System The organism value for this result has been updated. These results have been appended to the previously preliminary verified report. Culture 2+ Eikenella corrodens(A) JOVANI 02/25/2025 2:52 PM EDT [facility] Comment: This isolate has been identified using the FDA Approved Cloud[employer]yper [place] System The organism value for this result has been updated. These results have been appended to the previously preliminary verified report. Culture 1+ Haemophilus haemolyticus(A) JOVANI 02/25/2025 2:52 PM EDT [facility] Comment: This isolate has been identified using the FDA Approved MALDI gridCommyper [place] System The organism value for this result has been updated. These results have been appended to the previously preliminary verified report. Gram Stain Result Few Polymorphonuclear leukocytes 02/25/2025 2:52 PM EDT [facility] Gram Stain Result No organisms seen 02/25/2025 2:52 PM EDT [facility] Tissue Structure of left knee region / Unknown 02/21/2025 3:00 PM EDT 02/21/2025 4:41 PM EDT Comment:Pre-op diagnosis: Tibial plateau fracture, left, closed, initial encounter [S82.142A] Surgical site infection [T81.49XA] Narrative Organism Antibiotic Method Susceptibility Klebsiella pneumoniae Amoxicillin/Clavulanate JOVANI <=4/2 ug/ml: Susceptible Klebsiella pneumoniae Ampicillin JOVANI >16 ug/ml: Resistant Klebsiella pneumoniae Ampicillin/Sulbactam JOVANI 16/8 ug/ml: Intermediate Klebsiella pneumoniae Aztreonam JOVANI <=2 ug/ml: Susceptible Klebsiella pneumoniae Cefazolin JOVANI 2 ug/ml: Susceptible Klebsiella pneumoniae Cefepime JOVANI <=0.5 ug/ml: Susceptible Klebsiella pneumoniae Ceftriaxone JOVANI <=1 ug/ml: Susceptible Klebsiella pneumoniae Ciprofloxacin JOVANI <=0.25 ug/ml: Susceptible Klebsiella pneumoniae Ertapenem JOVANI <=0.25 ug/ml: Susceptible Klebsiella pneumoniae Gentamicin JOVANI <=2 ug/ml: Susceptible Klebsiella pneumoniae Levofloxacin JOVANI <=0.25 ug/ml: Susceptible Klebsiella pneumoniae Meropenem JOVANI <=0.5 ug/ml: Susceptible Klebsiella pneumoniae Piperacillin/Tazobactam JOVANI 16/4 ug/ml: Susceptible Klebsiella pneumoniae Tetracycline JOVANI <=2 ug/ml: Susceptible Klebsiella pneumoniae Tobramycin JOVANI <=2 ug/ml: Susceptible Klebsiella pneumoniae Trimethoprim/Sulfa methoxazol e JOVANI <=0.5/9.5 ug/ml: Susceptible Lawrence Hayes MD LAB MICROBIOLOGY - GENERAL OR DERABLES Final Result Performing Organization Address [facility] Co de Phone Number [address] [address] * Anaerobic Culture (02/21/2025 3:00 PM EDT) Pathologist [facility] Culture Mixed aerobic and anaerobic sherley 02/26/2025 8:03 AM EDT [facility] Tissue Structure of left knee region / Unknown 02/21/2025 3:00 PM EDT 02/21/2025 4:41 PM EDT Comment:Pre-op diagnosis: Tibial plateau fracture, left, closed, initial encounter [S82.142A] Surgical site infection [T81.49XA] Lawrence Hayes MD LAB MICROBIOLOGY - GENERAL OR DERABLES Final Result Performing Organization Address [facility] [place] [address] * (ABNORMAL) POCT glucose meter (02/21/2025 11:50 AM EDT) Pathologist [facility] POCT Glucose 108(H) 74 - 99 mg/dL 02/21/2025 11:51 AM EDT [facility] Comment:Accuracy of a glucos e result obtained from a capillary whole blood specimen relies upon adequate, non-compromised capillary blood flow. If the capillary glucose result is not consistent with the patient's clinical signs and symptoms, glucose testing should be repeated with either an arterial or venous sample on the glucometer or sent to the main labortory for testing. Comment 02/21/2025 11:51 AM EDT [facility] Supervisor Fishing ID Harvey Hernandez 02/22/20 11:51 AM EDT [facility] Device ID [id number] 02/21/2025 11:51 AM EDT [facility]ALTH[facility] Specimen Type POC Capillary 02/21/2025 11:51 AM EDT [facility] Blood Capillary blood specimen / Unknown 02/21/2025 11:50 AM EDT 02/21/2025 11:51 AM EDT us Lawrence Hayes MD LAB POINT OF CARE TE ST DOCKED DEVICE UNSOLICITED RESULTS Final Result Performing Organization Address City/[facility] Co de Phone Number [facility] [address] [place] [address] * Creatine Kinase (CK), Total (02/21/2025 11:43 AM EDT) Pathologist [facility] Creatine Kinase, Plasma 74 49 - 320 U/L 02/21/2025 5:45 PM EDT [facility] Blood Venous blood specimen / Unknown Venipuncture / Unknown 02/21/2025 11:43 AM EDT 02/21/2025 11:57 AM EDT us Stellamarie Brown APRN LAB BLOOD ORDERABLES Final Result Performing Organization Address [facility] de Phone Number [facility] [address] [place] [address] * Type and screen (02/21/2025 11:43 AM EDT) Pathologist [facility] ABO/Rh A Positive 02/21/2025 11:33 AM EDT BLOOD BANK Antibody Screen Negative 02/21/2025 11:33 AM EDT BLOOD BANK Specimen Expiration 02/24/2025 23:59 02/21/2025 11:33 AM EDT BLOOD BANK Blood Venous blood specimen / Unknown Venipuncture / Unknown 02/21/2025 11:43 AM EDT 02/21/2025 11:54 AM EDT us Stella Brown APRN LAB BLOOD BANK TEST ORDERA BLES Final Result Performing Organization Address [facility] Co de Phone Number BLOOD BANK [address] [place] [address], * Protime-INR (02/21/2025 11:43 AM EDT) Pathologist [facility] Prothrombin Time 13.6 12.0 - 14.3 sec LAB COAGULATION METHOD 02/21/2025 12:35 PM EDT [facility] INR 1.0 0.9 - 1.1 LAB COAGULATION METHOD 02/21/2025 12:35 PM EDT [facility] Blood Venous blood specimen / Unknown Venipuncture / Unknown 02/21/2025 11:43 AM EDT 02/21/2025 11:57 AM EDT Narrative [facility] - 02/21/2025 12:35 PM EDT OPTIMAL INR RANGES FOR PATIENT ON ORAL ANTICOAGULANT THERAPY Prevention of venous thromboembolism INR 2.0 to 3.0 In patients with heart disease: Atrial fibrillation INR 2.0 to 3.0 Valvular heart disease INR 2.0 to 3.0 Tissue heart valves INR 2.0 to 3.0 Mechanical prosthetic valves INR 2.5 to 3.5 Prevention of recurrent ID INR 2.5 to 3.5 us Stella Brown [facility] LAB BLOOD ORDERABLES Final Result [facility] [address] [place] [address] * (ABNORMAL) Basic Metabolic Panel, Plasma (02/21/2025 11:43 AM EDT) Glucose, Plasma 101(H) 74 - 99 mg/dL 02/21/2025 12:29 PM EDT [facility] BUN, Plasma 12 7 - 21 mg/dL 02/21/2025 12:29 PM EDT [facility] Creatinine, Plasma 0.79 0.70 - 1.20 mg/dL 02/21/2025 12:29 PM EDT [facility] BUN/Creatinine Ratio 15 02/21/2025 12:29 PM EDT [facility] Sodium, Plasma 138 136 - 145 mmol/L 02/21/2025 12:29 PM EDT [facility] Potassium, Plasma 4.2 3.6 - 4.9 mmol/L 02/21/2025 12:29 PM EDT [facility] Chloride, Plasma 102 97 - 107 mmol/L 02/21/2025 12:29 PM EDT [facility] CO2, Plasma 23 22 - 29 mmol/L 02/21/2025 12:29 PM EDT [facility] Anion Gap 13 6 - 16 mmol/L 02/21/2025 12:29 PM EDT [facility] Total Calcium, Plasma 9.3 8.9 - 10.2 mg/dL 02/21/2025 12:29 PM EDT [facility] eGFRcr 118.8 mL/min/1.7 3m*2 02/21/2025 12:29 PM EDT [facility] Comment:Reported eGFRcr in m L/min/1.73m2 is based the CKD-EPI 2020 equation that does not use a race coefficient. Blood Venous blood specimen / Unknown Venipuncture / Unknown 02/21/2025 11:43 AM EDT 02/21/2025 11:57 AM EDT us Stella Brown FILB[facility] GROWER LAB BLOOD ORDERABLES Final Result [facility] [address] [place] [address] * (ABNORMAL) CBC and Differential (02/21/2025 11:43 AM EDT) WBC Count 9.14 3.70 - 10.30 10*3/uL LAB HEMATOLOGY METHOD 02/21/2025 12:09 PM EDT [facility] RBC Count 4.18(L) 4.60 - 6.10 10*6/uL LAB HEMATOLOGY METHOD 02/21/2025 12:09 PM EDT [facility] HGB 12.6(L) 13.7 - 17.5 g/dL LAB HEMATOLOGY METHOD 02/21/2025 12:09 PM EDT [facility] HCT 37.8(L) 40.0 - 51.0 % LAB HEMATOLOGY METHOD 02/21/2025 12:09 PM EDT [facility] Platelet Count 298 155 - 369 10*3/uL LAB HEMATOLOGY METHOD 02/21/2025 12:09 PM EDT [facility] MCV 90 79 - 98 fL LAB HEMATOLOGY METHOD 02/21/2025 12:09 PM EDT [facility] MCH 30.1 26.0 - 32.0 pg LAB HEMATOLOGY METHOD 02/21/2025 12:09 PM EDT [facility] MCHC 33.3 30.7 - 35.5 g/dL LAB HEMATOLOGY METHOD 02/21/2025 12:09 PM EDT [facility] RDW 13.2 11.5 - 14.5 % LAB HEMATOLOGY METHOD 02/21/2025 12:09 PM EDT [facility] MPV 9.5 8.8 - 12.5 fL LAB HEMATOLOGY METHOD 02/21/2025 12:09 PM EDT [facility] nRBC 0.0 <=0.0 per 100 WBCs LAB HEMATOLOGY METHOD 02/21/2025 12:09 PM EDT [facility] Differential Type Automated LAB HEMATOLOGY METHOD 02/21/2025 12:09 PM EDT [facility] Neutrophils % 60 % LAB HEMATOLOGY METHOD 02/21/2025 12:09 PM EDT [facility] Lymphocytes % 31 % LAB HEMATOLOGY METHOD 02/21/2025 12:09 PM EDT [facility] Monocytes % 7 % LAB HEMATOLOGY METHOD 02/21/2025 12:09 PM EDT [facility] Eosinophils % 2 % LAB HEMATOLOGY METHOD 02/21/2025 12:09 PM EDT [facility] Basophils % 0 % LAB HEMATOLOGY METHOD 02/21/2025 12:09 PM EDT [facility] Immature Granulocytes % 0 % LAB HEMATOLOGY METHOD 02/21/2025 12:09 PM EDT [facility] Neutrophils Absolute 5.37 1.60 - 6.10 10*3/uL LAB HEMATOLOGY METHOD 02/21/2025 12:09 PM EDT [facility] Lymphocytes Absolute 2.86 1.20 - 3.90 10*3/uL LAB HEMATOLOGY METHOD 02/21/2025 12:09 PM EDT [facility] Monocytes Absolute 0.65 0.30 - 0.90 10*3/uL LAB HEMATOLOGY METHOD 02/21/2025 12:09 PM EDT [facility] Eosinophils Absolute 0.18 0.00 - 0.50 10*3/uL LAB HEMATOLOGY METHOD 02/21/2025 12:09 PM EDT [facility] Basophils Absolute 0.04 0.00 - 0.10 10*3/uL LAB HEMATOLOGY METHOD 02/21/2025 12:09 PM EDT [facility] Immature Granulocytes Absolute 0.04 0.00 - 0.06 10*3/uL LAB HEMATOLOGY METHOD 02/21/2025 12:09 PM EDT [facility] Blood Venous blood specimen / Unknown Venipuncture / Unknown 02/21/2025 11:43 AM EDT 02/21/2025 11:59 AM EDT Narrative [facility] - 02/21/2025 12:09 PM EDT Therapeutic decision making should be based on absolute values, rather than percentages. us Stella Brown [facility] LAB BLOOD ORDERABLES Final Result [facility] [address] [place] [address] documented in this encounter Visit Diagnoses Diagnosis Surgical site infection- Primary Tibial plateau fracture, left, closed, initial encounter Surgical site infection Cellulitis of left lower extremity Tibial plateau fracture, left, closed, initial encounter documented in this encounter Admitting Diagnoses Diagnosis Tibial plateau fracture, left, closed, initial encounter Surgical site infection documented in this encounter Administered Medications Inactive Administered Medications - up to 3 most recent administrations Medication Order MAR Action Action Date Dose Rate Site acetaminophen (Tylenol) tablet 1,000 mg 1,000 mg, Oral, Every 6 hours scheduled, First dose on Mon02/21/25 at 1800, Until Discontinued, Routine, Recovery(Phase II-Outpatient)/On Unit(Inpatient) Given 02/24/2025 6:16 PM EDT 1,000 mg Given 02/24/2025 11:38 AM EDT 1,000 mg Given 02/24/2025 5:05 AM EDT 1,000 mg cefTRIAXone (Rocephin) 2 g in sodium chloride 0.9% 100 mL IVPB (vial adapter required) 2 g, Intravenous, Every 24 hours, First dose (after last modification) on Mon02/24/25 at 1700, Until Discontinued, Routine New Bag 02/24/2025 6:16 PM EDT 2 g 220 mL/hr DAPTOmycin (Cubicin) 1,100 mg in sodium chloride 0.9 % 100 mL IVPB 1,100 mg (rounded from 1,090 mg = 10 mg/kg 109 kg Adjusted weight), Intravenous, Every 24 hours, First dose (after last modification) on Mon02/21/25 at 2100, Until Discontinued, Routine, Recovery(Phase II-Outpatient)/On Unit(Inpatient) New Bag 02/23/2025 8:57 PM EDT 1,100 m g 264 mL/hr New Bag 02/22/2025 8:30 PM EDT 1,100 mg 264 mL/hr New Bag 02/21/2025 8:38 PM EDT 1,100 mg 264 mL/hr enoxaparin (Lovenox) syringe 40 mg 40 mg, Subcutaneous, 2 times daily, First dose on 02/22/25 at 1000, Until Discontinued, Routine Given 02/24/2025 8:29 AM EDT 40 mg Left Lower Abdomen Given 02/23/2025 8:57 PM EDT 40 mg Le ft Lower Abdomen Given 02/23/2025 9:51 AM EDT 40 mg Le ft Lower Abdomen fentaNYL (Sublimaze) injection 50 mcg 50 mcg, Intravenous, Every 5 min PRN, 2 doses, Starting on Mon02/21/25 at 1535, Until Mon02/21/25 at 1754, Routine, Recovery (Phase I only), pain score of 5-8 out of 10 Given 02/21/2025 4:41 PM EDT 50 mcg HYDROmorphone (Dilaudid) injection 0.5 mg 0.5 mg, Intravenous, Every 10 min PRN, 2 doses, Starting on Mon02/21/25 at 1535, Until Mon02/21/25 at 1657, Routine, Recovery (Phase I only), pain score of 9-10 out of 10 Given 02/21/2025 4:57 PM EDT 0.5 mg Given 02/21/2025 4:33 PM EDT 0.5 mg methocarbamol (Robaxin) tablet 750 mg 750 mg, Oral, Every 6 hours PRN, Starting on Mon02/21/25 at 1637, Until 02/22/25 at 0750, Routine, Recovery(Phase II-Outpatient)/On Unit(Inpatient), muscle spasms Given 02/21/2025 4:47 PM EDT 750 mg methocarbamol (Robaxin) tablet 750 mg 750 mg, Oral, 4 times daily, First dose (after last modification) on 02/22/25 at 0900, Until Discontinued, Routine, Recovery(Phase II-Outpatient)/On Unit(Inpatient) Given 02/24/2025 6:16 PM EDT 750 mg Given 02/24/2025 1:05 PM EDT 750 mg Given 02/24/2025 8:29 AM EDT 750 mg mupirocin (Bactroban) 2 % ointment 1 Application Each Nostril, 2 times daily, 10 doses, First dose on Mon02/21/25 at 2100, Last dose on Mon02/26/25 at 0900, Routine Given 02/24/2025 8:29 AM EDT 1 Application Given 02/23/2025 9:00 PM EDT 1 Application Given 02/23/2025 9:51 AM EDT 1 Application oxyCODONE (Roxicodone) immediate release tablet 10 mg 10 mg, Oral, Once as needed, 2 doses, Starting on Mon02/21/25 at 1535, Until Mon02/21/25 at 1754, Routine, Recovery (Phase I only), pain score of 6-8 out of 10 Given 02/21/2025 4:32 PM EDT 10 mg oxyCODONE (Roxicodone) immediate release tablet 10 mg 10 mg, Oral, Every 4 hours PRN, Starting on Mon02/21/25 at 1637, Until Mon02/23/25 at 0436, Routine, Recovery(Phase II-Outpatient)/On Unit(Inpatient), severe pain Given 02/22/2025 8: 58 AM EDT 10 mg Given 02/21/2025 9:03 PM EDT 10 mg oxyCODONE (Roxicodone) immediate release tablet 5 mg 5 mg, Oral, Every 4 hours PRN, Starting on Mon02/21/25 at 1637, Until Mon02/23/25 at 0436, Routine, Recovery(Phase II-Outpatient)/On Unit(Inpatient), moderate pain Given 02/22/2025 9:28 PM EDT 5 mg oxyCODONE (Roxicodone) immediate release tablet 5 mg 5 mg, Oral, Every 4 hours PRN, Starting on Mon02/23/25 at 0437, Until Mon02/24/25 at 0436, Routine, Recovery(Phase II-Outpatient)/On Unit(Inpatient), moderate pain Given 02/23/2025 8:58 PM EDT 5 mg Given 02/23/2025 7:45 AM EDT 5 mg oxyCODONE (Roxicodone) immediate release tablet 5 mg 5 mg, Oral, Every 6 hours PRN, Starting on Mon02/24/25 at 0437, Until Mon02/24/25 at 2202, Routine, Recovery(Phase II-Outpatient)/On Unit(Inpatient), moderate pain Given 02/24/2025 7:27 AM EDT 5 mg oxyCODONE (Roxicodone) immediate release tablet 5 mg 5 mg, Oral, Every 8 hours PRN, Starting on Sneha 02/27/25 at 0437, Until 02/24/25 at 2202, Routine, Recovery(Phase II-Outpatient)/On Unit(Inpatient), moderate pain piperacillin-tazobactam (Zosyn) 4.5 g in sodium chloride 0.9% 100 mL IVPB (vial adapter required) 4.5 g, Intravenous, Every 6 hours, First dose on Mon02/21/25 at 1730, Until Discontinued, Routine, Recovery(Phase II-Outpatient)/On Unit(Inpatient) New Bag 02/24/2025 1:06 PM EDT 4.5 g 36.7 mL/hr New Bag 02/24/2025 5:05 AM EDT 4.5 g 36.7 mL/hr New Bag 02/23/2025 11:25 PM EDT 4.5 g 36.7 mL/hr polyethylene glycol (Miralax) packet 17 g 17 g, Oral, Daily, First dose on Mon02/22/25 at 0900, Until Discontinued, Routine Povidone-Iodine 5 % swab solution 1 Application Nasal, Once, 1 dose, On Mon02/21/25 at 1230, Routine Given 02/21/2025 11:43 AM EDT 1 Application senna-docusate (Janeth-Colace) 8.6-50 MG per tablet 1 tablet 1 tablet, Oral, 2 times daily, First dose on Mon02/21/25 at 2100, Until Discontinued, Routine, Recovery(Phase II-Outpatient)/On Unit(Inpatient) Given 02/23/2025 8:58 PM EDT 1 tablet Given 02/21/2025 8:38 PM EDT 1 tablet sodium chloride 0.9 % flush 10 mL 10 mL, Intravenous, Every 12 hours, First dose on Mon02/21/25 at 1230, Until Discontinued, Routine, Holding - Preprocedure Given 02/21/2025 11: 43 AM EDT 10 mL documented in this encounter Active and Recently Administered Medications Times are shown in EDT. Scheduled Medication Order 02/22/2025 02/23/2025 02/24/2025 acetaminophen (Tylenol) tablet 1,000 mg 1,000 mg, Oral, Every 6 hours scheduled, First dose on Mon02/21/25 at 1800, Until Discontinued, Routine, Recovery(Phase II-Outpatient)/On Unit(Inpatient) 0502 (Given - Provider: Shelley Rodas RN)1107 (Given - Provider: Radha Corona RN)1828 (Given - Provider: Radha Corona RN)2328 (Not Given - Provider: Shelley Rodas RN - Reason: Patient/family refused) 0526 (Given - Provider: Shelley Rodas RN)1113 (Given - Provider: Cosmo Traylor RN)1740 (Given - Provider: Cosmo Traylor RN)2325 (Given - Provider: Shelley Rodas RN) 0505 (Given - Provider: Shelley Rodas RN)1138 (Given - Provider: Cosmo Traylor RN)181 (Given - Provider: Cosmo Traylor RN) cefTRIAXone (Rocephin) 2 g in sodium chloride 0.9% 100 mL IVPB (vial adapter required) 2 g, Intravenous, Every 24 hours, First dose (after last modification) on Mon02/24/25 at 1700, Until Discontinued, Routine 181 (New Bag - Provider: Cosmo Traylor RN) DAPTOmycin (Cubicin) 1,100 mg in sodium chloride 0.9 % 100 mL IVPB 1,100 mg (rounded from 1,090 mg = 10 mg/kg 109 kg Adjusted weight), Intravenous, Every 24 hours, First dose (after last modification) on Mon02/21/25 at 2100, Until Discontinued, Routine, Recovery(Phase II-Outpatient)/On Unit(Inpatient) 2029 (New Bag - Provider: Shelley Rodas RN) 205 (New Bag - Provider: Shelley Rodas RN) 2100 (Canceled Entry - Provider: Automatic Discharge Provider - Comment: Automatically canceled at discontinue of medication order) enoxaparin (Lovenox) syringe 40 mg 40 mg, Subcutaneous, 2 times daily, First dose on Mon02/22/25 at 1000, Until Discontinued, Routine 1100 (Given - Provider: Radha Corona RN)2030 (Given - Provider: Shelley Rodas RN) 0951 (Given - Provider: Cosmo Traylor RN)2057 (Given - Provider: Shelley Rodas RN) 0829 (Given - Provider: Cosmo Traylor RN)2100 (Canceled Entry - Provider: Automatic Discharge Provider - Comment: Automatically canceled at discontinue of medication order) methocarbamol (Robaxin) tablet 750 mg 750 mg, Oral, 4 times daily, First dose (after last modification) on Mon02/22/25 at 0900, Until Discontinued, Routine, Recovery(Phase II-Outpatient)/On Unit(Inpatient) 0858 (Given - Provider: Radha Corona RN)1500 (Given - Provider: Radha Corona RN)1828 (Given - Provider: Radha Corona RN)2128 (Given - Provider: Shelley Rodas RN) 0951 (Given - Provider: Cosmo Traylor RN)1346 (Given - Provider: Cosmo Traylor RN)1740 (Given - Provider: Cosmo Traylor RN)2108 (Given - Provider: Shelley Rodas RN) 0829 (Given - Provider: Cosmo Traylor RN)1305 (Given - Provider: Cosmo Traylor RN)1816 (Given - Provider: Cosmo Traylor RN)2200 (Canceled Entry - Provider: Automatic Discharge Provider - Comment: Automatically canceled at discontinue of medication order) mupirocin (Bactroban) 2 % ointment 1 Application Each Nostril, 2 times daily, 10 doses, First dose on Mon02/21/25 at 2100, Last dose on Mon02/26/25 at 0900, Routine 0859 (Given - Provider: Radha Corona RN)2030 (Given - Provider: Shelley Rodas RN) 0951 (Given - Provider: Cosmo Traylor RN)2100 (Given - Provider: Shelley Rodas RN) 0829 (Given - Provider: Cosmo Traylor RN)2100 (Canceled Entry - Provider: Automatic Discharge Provider - Comment: Automatically canceled at discontinue of medication order) piperacillin-tazobacta m (Zosyn) 4.5 g in sodium chloride 0.9% 100 mL IVPB (vial adapter required) (CANCELED) 4.5 g, Intravenous, Every 6 hours, First dose on Mon02/21/25 at 1730, Until Discontinued, Routine, Recovery(Phase II-Outpatient)/On Unit(Inpatient) 0502 (New Bag - Provider: Shelley Rodas RN)1108 (New Bag - Provider: Radha Corona RN)1828 (New Bag - Provider: Radha Corona RN)2235 (New Bag - Provider: Shelley Rodas RN) 0526 (New Bag - Provider: Shelley Rodas RN)1113 (New Bag - Provider: Cosmo Traylor RN)1740 (New Bag - Provider: Cosmo Traylor RN)2325 (New Bag - Provider: Shelley Rodas RN) 0505 (New Bag - Provider: Shelley Rodas RN)1306 (New Bag - Provider: Cosmo Traylor RN) polyethylene glycol (Miralax) packet 17 g 17 g, Oral, Daily, First dose on Mon02/22/25 at 0900, Until Discontinued, Routine 0858 (Not Given - Provider: Radha Corona RN - Reason: Patient/family refused) 1022 (Not Given - Provider: Cosmo Traylor RN - Reason: Patient/family refused) 0829 (Not Given - Provider: Cosmo Traylor RN - Reason: Patient/family refused) senna-docusate (Janeth-Colace) 8.6-50 MG per tablet 1 tablet 1 tablet, Oral, 2 times daily, First dose on Mon02/21/25 at 2100, Until Discontinued, Routine, Recovery(Phase II-Outpatient)/On Unit(Inpatient) 0858 (Not Given - Provider: Radha Corona RN - Reason: Patient/family refused)2030 (Not Given - Provider: Shelley Rodas RN - Reason: Patient/family refused) 1022 (Not Given - Provider: Cosmo Traylor RN - Reason: Patient/family refused)2057 (Given - Provider: Shelley Rodas RN) 0830 (Not Given - Provider: Cosmo Traylor RN - Reason: Patient/family refused)2100 (Canceled Entry - Provider: Automatic Discharge Provider - Comment: Automatically canceled at discontinue of medication order) PRN Medication Order 02/22/2025 02/23/2025 02/24/2025 ondansetron ODT (Zofran-ODT) disintegrating tablet 4 mg 4 mg, Oral, Every 6 hours PRN, Starting on Mon02/21/25 at 1638, Until Mon02/24/25 at 2202, Routine, Recovery(Phase II-Outpatient)/On Unit(Inpatient), nausea, vomiting oxyCODONE (Roxicodone) immediate release tablet 10 mg ()(Linked Group 1) 10 mg, Oral, Every 4 hours PRN, Starting on Mon02/21/25 at 1637, Until 02/23/25 at 0436, Routine, Recovery(Phase II-Outpatient)/On Unit(Inpatient), severe pain 0858 (Given - Provider: Radha Corona RN)2127 (See Alternative - Provider: Shelley Rodas RN) oxyCODONE (Roxicodone) immediate release tablet 5 mg ()(Linked Group 1) 5 mg, Oral, Every 4 hours PRN, Starting on Mon02/21/25 at 1637, Until Mon02/23/25 at 0436, Routine, Recovery(Phase II-Outpatient)/On Unit(Inpatient), moderate pain 0858 (See Alternative - Provider: Radha Corona RN)2127 (Given - Provider: Shelley Rodas, SHEREEN) oxyCODONE (Roxicodone) immediate release tablet 5 mg(Linked Group 2) 5 mg, Oral, Every 4 hours PRN, Starting on 02/23/25 at 0437, Until 02/24/25 at 0436, Routine, Recovery(Phase II-Outpatient)/On Unit(Inpatient), moderate pain 0745 (Given - Provider: Cosmo Traylor RN)2057 (Given - Provider: Shelley Rodas, SHEREEN) oxyCODONE (Roxicodone) immediate release tablet 5 mg(Linked Group 2) 5 mg, Oral, Every 6 hours PRN, Starting on Mon02/24/25 at 0437, Until Mon02/24/25 at 2202, Routine, Recovery(Phase II-Outpatient)/On Unit(Inpatient), moderate pain 0727 (Given - Provider: Cosmo Traylor RN) oxyCODONE (Roxicodone) immediate release tablet 5 mg(Linked Group 2) 5 mg, Oral, Every 8 hours PRN, Starting on Sneha 02/27/25 at 0437, Until 02/24/25 at 2202, Routine, Recovery(Phase II-Outpatient)/On Unit(Inpatient), moderate pain Linked Groups Order Group 1: oxyCODONE (Roxicodone) immediate release tablet 5 mg ()Jump to med 5 mg, Oral, Every 4 hours PRN, Starting on Mon02/21/25 at 1637, Until 02/23/25 at 0436, Routine, Recovery(Phase II-Outpatient)/On Unit(Inpatient), moderate pain Or oxyCODONE (Roxicodone) immediate release tablet 10 mg ()Jump to med 10 mg, Oral, Every 4 hours PRN, Starting on Mon02/21/25 at 1637, Until 02/23/25 at 0436, Routine, Recovery(Phase II-Outpatient)/On Unit(Inpatient), severe pain Group 2: oxyCODONE (Roxicodone) immediate release tablet 5 mgJump to med 5 mg, Oral, Every 4 hours PRN, Starting on Mon02/23/25 at 0437, Until Mon02/24/25 at 0436, Routine, Recovery(Phase II-Outpatient)/On Unit(Inpatient), moderate pain Followed by oxyCODONE (Roxicodone) immediate release tablet 5 mgJump to med 5 mg, Oral, Every 6 hours PRN, Starting on Mon02/24/25 at 0437, Until 02/24/25 at 2202, Routine, Recovery(Phase II-Outpatient)/On Unit(Inpatient), moderate pain Followed by oxyCODONE (Roxicodone) immediate release tablet 5 mgJump to med 5 mg, Oral, Every 8 hours PRN, Starting on Sneha 02/27/25 at 0437, Until 02/24/25 at 2202, Routine, Recovery(Phase II-Outpatient)/On Unit(Inpatient), moderate pain documented in this encounter Additional Health Concerns Infection Onset Date Last Indicated Resolved Time 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
--- OUTSIDE RECORDS SUMMARY | 2025-02-21 12:00 | XMS_ITS | Encounter Summary ---
Author Organization Healthcare Address [address] [place] [address] Care Team Providers Care Screener Perfumer Name Role Phone Blaine Nava MD Primary Care Provider [phone] Reason for Visit * Auth/Cert (Routine) Specialty Diagnoses / Procedures Referred By Adalid t Referred To Contact Diagnoses Tibial plateau fracture, left, closed, initial encounter Surgical site infection Tibial plateau fracture, left, closed, initial encounter [S82.142A] Surgical site infection [T81.49XA] Procedures ID DRAIN LOWER LEG DEEP ABSC/HEMATOMA INCISION AND DRAINAGE, LOWER EXTREMITY Lawrence Hayes MD [address] [address] Phone: tel: fax: [facility] [address] [place] [address] Phone: tel: Referral ID Status Reason Start Date Expiration Date Visits Re quested Visits Authorized [id number] 1 1 Encounter Details Date Type Department Care Team (Late st Contact Info) Description 02/21/2025 12:00 PM EDT - 02/21/2025 1:30 PM EDT Surgery [facility] [address] [place] [address] Lawrence Hayes MD [address] [address] INCISION AND DRAINAGE, LOWER EXTREMITY & removal of hardware - placement of ABX beads [57554 (CPT )] Surgery Details Date/Time Status Location OR Service Patient Class Case Class Case Type Trauma Case? 02/21/2025 12:00 PM Posted [facility] OR 05 Orthopedic Surgery Extended Recovery E-Electi ve Panel 1 Procedure LRB Anes Op Region Wound Class Comments INCISION AND DRAINAGE, LOWER EXTREMITY & removal of hardware - placement of ABX beads Left General Leg Lower Surgeon Surgeon Role Service Panel García Shepherd MD Resident - Assisting 1 Lawrence Hayes MD Primary Orthopedic Surgery 1 documented in this encounter Social History Tobacco [...] any time in the past 12 m [facility], were you homeless or living [...] drink first t traci in the morning (EYE-CHILD LIFE ASSISTANT) to steady your nerves or to [...] Sign Reading Time Taken Comments Blood Pressure 169/71 02/21/2025 11:42 AM EDT Pulse 91 02/21/2025 11:42 AM EDT Temperature 36.7 C (98 F) 02/21/2025 11:42 AM EDT Respiratory Rate 16 02/21/2025 11:42 AM EDT Oxygen Saturation 98% 02/21/2025 11:42 AM EDT Inhaled Oxygen Concentration - - Weight 150 kg (330 lb) 02/21/2025 11:42 AM EDT Height - - Body Mass Index 43.51 02/21/2025 5:50 PM EDT documented in this encounter Discharge Instructions * Discharge Instructions* [...] Care Review Outcome: Ongoing, Progressing Flowsheets (Taken 02/24/2025 003 by Shelley Rodas, RN) Progress: improving Plan [...] Prevent or Manage Infection Flowsheets Taken 02/24/2025 0400 by Fortunato Geiger Isolation Precautions: precautions maintained protective Taken 02/24/202534 by Shelley Rodas, RN Infection Management: aseptic technique maintained Taken 02/21/2025 194 by Sehlley Rodas, SHEREEN Fever Reduction/Comfort Measures: lightweight bedding Problem: Fall Injury Risk Goal: Absence of Fall and Fall-Related Injury Outcome: Ongoing, Progressing Intervention: Identify and Manage Contributors Flowsheets (Taken 02/24/2025 1831) Medication Review/Management: medications reviewed Self-Care Promotion: independence encouraged adaptive equipment use encouraged Intervention: Promote Injury-Free Environment Flowsheets (Taken 02/24/2025 0400 by Fortunato Geiger) Safety Promotion/Fall Prevention: activity [...] Prevent or Manage Pain Flowsheets (Taken 02/24/2025 1831) Medication Review/Management: medications reviewed * Adrienne Perez - 02/24/2025 4:04 PM EDT Images from the original note were not included. 798 Narcan Nasal [place]: Rescue Guide for Opioid Overdose Step 1 [...] Only for use in the nose. * Adrienne Perez - 02/24/2025 4:04 PM [...] controlled substances: ?? Drug Enforcement Agency (EDMUNDO): http://www.deadiversion.Codewiseoj.gov/drug_disposal/takeback/index.htm ?? National Association of Drug Diversion Investigators (NADDI): http://rxdrugdropbox.org/ ?? [place] Office of Drug Control Policy: http://odcp.ky.gov/Prescription+Drug+Drop+Box+Sites.htm Are [...] that tracks prescriptions of controlled substances in [place]. The TIFFANY report tells your doctor if [...] or your doctor may then call the [place] Drug Enforcement and Professional Practices Branch at .This will start an investigation of the error. * Adrienne Perez - 02/24/2025 4:03 PM EDT Images from the original note were not included. 35033 * Adrienne Perez - 02/24/2025 4:03 PM EDT Images from [...] your house or a medical facility. The geriatric case manager/social services analyst will setthat up based on your insurance. [...] or during weekends/ holidays, call the paging tape cutting machine operator at . Ask forthe infectious disease fellow winder contort operator. Call the clinic if you have any of these: ?? Fevers greater than 100.5??F ?? An allergic reaction, such as rash ?? Nausea, vomiting, or diarrhea ?? New or returning redness near the IV line ?? Redness, pain, swelling, or pus around the IV line * [facility] Adrienne Inman - 02/24/2025 4:03 PM [...] of your leg. This is also called ?Uukqka-tk-Mzr Weight Bearing,? ?Toe-Touch Weight Bearing,? or ?Foot-Flat [...] have less pain. * Rosaura Eason - Storm Adrienne - 02/24/2025 4:02 PM EDT Images from [...] thoroughly. Use soap and water or hand applied statistician and wear gloves before touching the PICC [...] them before you flush the line or forest fire specialist supervisor fluids or medicines. Avoid hard physical [...] infection, call your doctor rightaway. * Rosaura [facility] - Adrienne Inman - 02/24/2025 4:02 PM EDT Images from the original note were not included. 64463 Preventing a Surgical Site Infection A risk [...] of infection. ?? Controlled body temperature. A yivfl-ngnd-dtbqfj temperature during or after surgery prevents oxygen [...] and water or with an alcohol-based hand applied statistician before and after caring for you. Don?t [...] away. Last Reviewed Date: 2024 00:00:00 ?? 2031-7447 The [employer]. All rights reserved. This information is not intended as a substitute for professional medical care. Always follow your healthcare professional's instructions. * Discharge Summary - Sushil Lea MD - 02/24/2025 3:48 PM EDT Hospitalization Admit Date/Time: 02/21/2025 9:35 AM Admitting Attending: Lawrence Hayes Discharge Date: 02/24/2025 Discharge Attending Physician: Lawrence Hayes MD PCP name and Address: Blaine Nava MD [address] [place], [place] [address] #1 / [facility] [address] Referring provider name and address: No referring [...] were sent to [facility] [address], [facility] [address] cefTRIAXone 1 g reconstituted solution DAPTOmycin injection [...] Provider Department Center 2025 7:50 AM Stella Brown, AUTO FINANCE SALES REP [facility] 2025 10:30 AM Santiago Escalante MD [id number] [...] discharge. Sushil Lea MD Orthopaedic Surgery PGY-1 [facility] Orthopaedic Trauma Service Pager: [phone] Orthopaedic Recon/Spine/Foot and Ankle Service Pager: [phone] Personal Pager: [phone] Cosigned by Lawrence Hayes MD at 02/26/2025 9:46 AM EDT * Significant Event - Santiago Escalante MD - 02/24/2025 11:53 AM EDT ########################################################################## ID OPAT INTAKE NOTE: Transitions of Care Summary OPAT Category: STANDARD OPAT Patient lives out of state: No Referring ID Physician (Fellow/Attending): Madhuri ESCALANTE Diagnosis: L tibial ORIF infection IV Access: LUE PICC 52cm, placed 01/21/2025 Antimicrobial Regimen: Antimicrobials [...] 1030AM WEEK 5 FOLLOWUP: 03/27/2025, 0930AM at [address] [facility] [address] (Select Option 3 for IV Antibiotic / PICC line related issues) All questions regarding outpatient parenteral antimicrobials after discharge should be directed to the OPAT nurse navigator at (Select Option 3 for IV Antibiotics/PICC Issues) between 8am-5pm. After 5 pm, or during weekends/ holidays, please call the paging tape cutting machine operator at to reach the on-call ID fellow. PLEASE NOTIFY THE ID CONSULTING SERVICE OF ANY QUESTIONS REGARDING THESE RECOMMENDATIONS OR WITH ANY ANTIMICROBIAL CHANGES THAT OCCUR AFTER THE DATE/TIME OF THIS OPAT INTAKE NOTE. * Progress Notes - Anna Elam RN - 02/24/2025 11:03 AM EDT Case Management Adult Initial Progress Note Panda Machado 34 y.o. male CSN: [id number] Admission: 02/21/2025 9:35 AM Primary Problem: Surgical site infection Back Pad Inspector reviewed chart and spoke with patient to complete this Initial Case Management Assessment. PCP: Blaine Nava MD Emergency Contact: Extended Emergency Contact Information Primary Emergency Contact: Hayley Buenrostro Address: [address] [place] [address] Mobile Relation: Significant Other Preferred language: Kazakh Commercial Singer needed? No Secondary Emergency Contact: Jenny Buenrostro Address: [address] [place] [address] Mobile Relation: Mother Insurance: Primary Visit Coverage Payer Plan Sponsor Code Group Number Group Name [employer] MEDICAID VELAZQUEZ [employer]ORT [employer]ELAZ[employer]Z MEDICAID Primary Visit Coverage Subscriber Subscriber ID Subscriber Name Subscriber SSN Subscriber Address [id number] PANDA MACHADO [id number] [place] [address] Patient information: Primary Caregiver: Self Support System: Immediate family Daily Living Activities: Functional Status: Independent Living Arrangements: Spouse/Significant other, Children Type of Residence: Private residence, Single Level [address] [place] [address] Angela LOPEZ [address] Smoker in the Home?: Yes Current DME: [...] DME Provider: Rajesh Living Will/Advance Directive/Power of Hash Slinger /Guardian: Unable to assess: No Have you [...] Rajesh today. Pt was [facility] up at [facility] for PICC dressing changes and labs and was agreeable to continue receiving care there. CM will send orders when they are available. Pt stated he lives with his and two children. His can provide assistance and transportation. Pt is unemployed and meets 300% FPG. CM will continue to assist with discharge POC. [facility] Geoti-[phone] [phone] Update: Final ID recs have been placed and standard OPAT approved. Rajesh will complete teaching and deliver ABX to bedside around 5 PM today. Orders were faxed to [facility]. Infusion center will call pt to schedule an appointment for Saturday 03/03. Bedside RN will change PICC dressig prior to discharge. Pt is aware and agreeable to plan. Anna Elam RN * Progress Notes - Santiago Escalante MD - 02/24/2025 9:28 AM EDT Infectious Disease Bone And Joint Consult Team - Followup S: NAEON ROS: Positive as above per HPI. Otherwise, 14 systems reviewed and negative. MEDS: ABX: Daptomycin 02/21/2025 - current Zosyn 02/21/2025 - current Cefazolin 02/21/2025 OTHERS: For full list, see MAR. [Current Medications] [Current Medications] Current Facility-Administered Medications: acetaminophen (Tylenol) tablet 1,000 mg, 1,000 mg, Oral, q6h ALIYA, García Shepherd MD, 1,000 mg at 02/24/25 050 DAPTOmycin (Cubicin) 1,100 mg in sodium chloride 0.9 % 100 mL IVPB, 10 mg/kg (Adjusted), Intravenous, q24h, Stella Brown, AUTO FINANCE SALES REP, Last Rate: 264 mL/hr at 02/23/252056, 1,100 mg at 02/23/252056 enoxaparin (Lovenox) syringe 40 mg, 40 mg, Subcutaneous, BID, Carolin Payan MD, 40 mg at 02/24/25828 methocarbamol (Robaxin) tablet 750 mg, 750 mg, Oral, 4x daily, Carolin Payan MD, 750 mg at 02/24/25 08 mupirocin (Bactroban) 2 % ointment 1 Application, 1 Application, Each Nostril, BID, Lawrence Hayes MD, 1 Application at 02/24/25 08 ondansetron ODT (Zofran-ODT) disintegrating tablet 4 mg, 4 mg, Oral, q6h PRN, García Shepherd MD [] oxyCODONE (Roxicodone) immediate release tablet 5 mg, 5 mg, Oral, q4h PRN, 5 mg at 02/23/252057 FOLLOWED BY oxyCODONE (Roxicodone) immediate release tablet 5 mg, 5 mg, Oral, q6h PRN, 5mg at 02/24/25 07 FOLLOWED BY [START ON 02/27/2025] oxyCODONE (Roxicodone) [...] tibial plateau fluid (op cx?) - NCC 60132 (PMN 98%); RBC 240K. GS - GPC. [...] LEFT lower [facility]. [facility] shaft [...] surgical site pain/swelling, erythema. Pt seen at [facility] where CT suggested L medial knee [...] Tobacco: Active smoker ETOH: Denies DRUG ALLERGIES: [place] RECOMMENDATIONS: Re: chronic LEFT tibial SSI, implant [...] abx therapy. For now, while inpatient at [facility] Daptomycin 8-10mg/kg IV q24h as [...] therapy based on clinical response.) Already has LUE PICC 52cm, placed 01/21/2025 Re: OPAT: Pt [...] appointment in order to complete registration paperwork.) [facility] (Infectious Diseases [facility]) [address] [place] [address] IMMIGRATION PATROL INSPECTOR: . FAX: ID Bone and Joint Consult [...] -- Annamaria Romero MD Orthopaedic Surgery PGY-1 [facility] Orthopaedic Trauma Service Pager: [phone] Orthopaedic Recon/Spine/Foot and Ankle Service Pager: [phone] Cosigned by Lawrence Hayes MD at 02/26/2025 [...] Progressing Flowsheets (Taken 02/21/20250 by Renu Lepe, RN) Plan of Care Reviewed With: patient significant other 02/23/20251913 by Cosmo Traylor RN Flowsheets (Taken 02/21/20251729 by Renu Lepe, RN) Plan of Care Reviewed With: patient significant other Goal: Patient-Specific Goal (Individualized) 02/23/20251915 by Cosmo Traylor RN Outcome: Ongoing, Progressing Flowsheets (Taken 02/23/2025 0700) Patient/Family-Specific Goals (Include [...] Comfort Flowsheets (Taken 02/22/2025 1107 by Radha Corona, RN) Pain Management Interventions: medication (see MAR) pillow support provided position adjusted Intervention: Provide Person-Centered Care Flowsheets (Taken 02/23/20251913) Trust Relationship/Rapport: care explained choices provided emotional support provided empathic listening provided Goal: Readiness for Transition of Care Outcome: Ongoing, Progressing Intervention: Mutually Develop Transition Plan Flowsheets (Taken 02/23/2025 0058 by Shelley Rdoas, RN) Readmission Within the Last 30 Days: planned [...] Flowsheets (Taken 02/21/20251939 by Shelley Rodas, SHEREEN) Supportive Measures: active listening utilized decision-making supported goal-setting facilitated self-care encouraged Diversional Activities: television smartphone 02/23/20251913 by Cosmo Traylor RN Flowsheets (Taken 02/21/20251939 by Shelley Rodas RN) Supportive Measures: active listening utilized decision-making supported goal-setting facilitated self-care encouraged Diversional Activities: television smartphone Intervention: Develop Pain Management Plan Flowsheets (Taken 02/22/2025 1107 by Radha Corona RN) Pain Management Interventions: medication (see MAR) pillow support provided position adjusted Intervention: Prevent or Manage Pain Flowsheets (Taken 02/21/20251939 by Shelley Rodas RN) Sensory Stimulation Regulation: television on visitors [...] by: García Shepherd MD at 02/21/2025 1635 - Pain control: MMPC - Diet: regular [...] required Carolin Payan MD Orthopedic Surgery PGY-1 [facility] Cosigned by Lawrence Hayes MD at 02/26/2025 9:46 AM EDT * Care Plan - Shelley Rodas RN - 02/23/2025 1:00 AM EDT Problem: Adult Inpatient Plan of Care Goal: Plan of Care Review Outcome: Ongoing, Progressing Goal: Patient-Specific Goal (Individualized) Outcome: Ongoing, Progressing Flowsheets (Taken 02/22/20251909) Patient/Family-Specific Goals (Include Timeframe): pt will have [...] Comfort Flowsheets (Taken 02/22/2025 1107 by Radha Corona, RN) Pain Management Interventions: medication (see MAR) pillow support provided position adjusted Intervention: Provide Person-Centered Care Flowsheets (Taken 02/23/202557) Trust Relationship/Rapport: care explained choices provided emotional support provided empathic listening provided reassurance provided thoughts/feelings acknowledged Goal: Readiness for Transition of Care Outcome: Ongoing, Progressing Intervention: Mutually Develop Transition Plan Flowsheets (Taken 02/23/20258) Readmission Within the Last 30 Days: planned [...] Activities: television smartphone * Progress Notes - Guilherme Amber F - 02/22/2025 9:38 AM EDT Physical Therapy [...] session. 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 Prior Level of Function Receives Help From: No assist required prior to admission Level of Mobility: Ambulatory- community Mobility [place]: Independent gait without device History of Falls: [...] Mobility Exam: Supine to Sit Level of [place]: Stand-by assist Physical/Nonphysical Assist: Verbal Cues Bed Mobility Exam: Sit to Supine Level of [place]: Stand-by assist Physical/Nonphysical Assist: Verbal Cues Transfers Transfer Interventions: Pt completed a sit to stand transfer with SBA and min cues for safety and maintaing NWB of LLE with good carry over. For stand to sit cues provided for reaching back for surface, extending LLE and eccentric control wtih good carry over. Transfer Exam: Sit to stand Level of [place]: Stand-by assist Physical/Nonphysical Assist: Verbal Cues Assistive Device: Walker, rolling Transfer Exam: Stand to Sit Level of [place]: Stand-by assist Physical/Nonphysical Assist: Verbal Cues Assistive [...] uses. Standardized Assessments Standardized Assessments Standardized Assessments: [facility] 6-Clicks Mobility Assessment [facility] 6-Clicks Mobility Assessment Difficulty patient has turning [...] 3-5 steps with a railing?: A little [facility] 6-Clicks Mobility Assessment Total : 18 Assessment [...] a.m. 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 Prior Level of Function Receives Help From: No assist required prior to admission Level of Mobility: Ambulatory- community Mobility [place]: Independent gait without device History of Falls: [...] Mobility Bed Mobility Exam: Scooting/Bridging Level of [place]: Stand-by assist Physical/Nonphysical Assist: Verbal Cues Bed Mobility Exam: Supine to Sit Level of [place]: Stand-by assist Physical/Nonphysical Assist: Verbal Cues Bed Mobility Exam: Sit to Supine Level of [place]: Stand-by assist Physical/Nonphysical Assist: Verbal Cues Transfers Transfer Exam: Sit to stand Level of [place]: Stand-by assist Physical/Nonphysical Assist: Verbal Cues Assistive Device: Walker, rolling Transfer Exam: Stand to Sit Level of [place]: Stand-by assist Physical/Nonphysical Assist: Verbal Cues Assistive [...] Edited by: García Shepherd MD at 02/21/2025 4912 - Pain control: MMPC - Diet: regular [...] required Carolin Payan MD Orthopedic Surgery PGY-1 [facility] Cosigned by Lawrence Hayes MD at 02/24/2025 8:17 AM EDT * Care Plan - Shelley Rodas RN - 02/21/2025 7:43 PM EDT Problem: Adult Inpatient Plan of Care Goal: Plan of Care Review Outcome: Ongoing, Progressing Goal: Patient-Specific Goal (Individualized) Outcome: Ongoing, Progressing Flowsheets (Taken 02/21/20251749 by Radha Corona, SHEREEN) Patient/Family-Specific Goals (Include Timeframe): Pt will verbalize [...] Measures: lightweight bedding Taken 02/21/20251749 by Radha Corona, SHEREEN Isolation Precautions: precautions maintained Problem: Fall Injury [...] Escalante MD Consult ordered by: Stella Brown, AUTO FINANCE SALES REP Reason for consult: L tibial plateau ORIF [...] surgical site pain/swelling, erythema. Pt seen at [facility] where CT suggested L medial knee [...] [facility]. Pt did keep [facility] appts --> had persistent drainage [...] Tobacco: Active smoker ETOH: Denies DRUG ALLERGIES: [place] ALLERGIES: NKDA. MEDS: ABX: Daptomycin 02/21/2025 - [...] PRN, Goran Ty CRNA, 10 mg at 632 oxyCODONE (Roxicodone) immediate release tablet 5 mg, [...] mL, 10 mL, Intravenous, PRN, Stella Brown, AUTO FINANCE SALES REP SOCIAL HISTORY: As above. Otherwise reviewed and [...] anesthesia. FELIPE PSYCH: Recovering from anesthesia. LINES: HAYDEE SL PICC 52cm, placed 01/21/2025 LABS: LABS [...] tibial plateau fluid (op cx?) - NCC 68594 (PMN 98%); RBC 240K. GS - GPC. [...] surgical site pain/swelling, erythema. Pt seen at [facility] where CT suggested L medial knee [...] [facility]. Pt did keep [facility] appts --> had persistent drainage from LEFT medial knee incisions and wound dehiscence. Pt electively readmitted to 02/21/2025. S/p 02/21/2025 repeat I&D of L knee, removal of medial and lateral tibial plateau implants; abx beads (vanco + tobra) placed; cx PENDING. SUBSTANCE ABUSE: Illicit: Denies Tobacco: Active smoker ETOH: Denies DRUG ALLERGIES: [place] RECOMMENDATIONS: Re: chronic LEFT tibial SSI, implant [...] abx therapy. For now, while inpatient at [facility], pending the above: Continue empiric, [...] PM EDT Operative Note Date: 02/21/25 Location: [place] Name: Panda Machado, : 1990, Diagnoses: [...] available for all parts of the procedure Binder Chainstitch(s): * García Shepherd MD - Resident - [...] No. SYNTHECURE SYNTHETIC CALCIUM SULFATE 10CC - [id number] Implanted Specimen: Specimens ID Source Frozen? A [...] also visualized and removed with a needle transit mixer driver. Cultures from the lateral wound were [...] Travel History: none Immunizations Not reviewed Allergies [place] Medications Current Medications[1] Objective Review of Systems [...] 98%. Results Review {Vanishing Link Review Results :[id number] I have reviewed the latest lab and [...] Date INCISION AND DRAINAGE, LEG Left 01/20/2025 ([facility]) INCISION AND DRAINAGE, LOWER EXTREMITY (Left: Leg Lower) KNEE SURGERY Left 01/18/2025 ([facility]) INCISION AND DRAINAGE, LOWER EXTREMITY (Left: Leg Lower) LEG SURGERY Left ERIKA NAIL IM RODDING Left 09/10/2024 ([facility]) INSERTION, INTRAMEDULLARY VICK, FEMUR (Left: Leg Upper) ORIF TIBIA FRACTURE Left 09/15/2023 ([facility]) ORIF, FRACTURE, TIBIA, PLATEAU (Left: Leg Lower) ORIF TIBIAL PLATEU FRACTURE Left 01/01/2025 ([facility]) ORIF, FRACTURE, TIBIA, PLATEAU (Left: Knee) ORTHOPEDIC SURGERY 09/06/2022 Had 4 other similar surgeries [1] Allergies Allergen Reactions [place] Hives [1] No current facility-administered medications for [...] card, photo ID, along with power of graphic production artist, guardianship or advanced directives if applicable Do [...] Description 2025 7:50 AM EDT Office Visit [facility] Orthopaedic Surgery & Sports Medicine [address] [place] [address] Stella Brown N, AUTO FINANCE SALES REP [address] [place] [address] 2025 10:30 AM EDT Office Visit [facility] [address] [place] [address] [place] [address] [place] [address] [address] [place] [address] 03/27/2025 9:30 AM EDT Office Visit [facility] [address] [place] [address] Santiago Escalante MD [address] [place] [address] [address] [place] [address] Pending Results Name Type Priority [...] left, closed, initial encounter Surgical site infection ID DRAIN LOWER LEG DEEP ABSC/HEMATOMA 02/21/2025 2:09 [...] Basic metabolic panel (02/24/2025 7:04 AM EDT) [facility] Glucose, Plasma 91 74 - 99 mg/dL 02/24/2025 7:37 AM EDT [facility] BUN, Plasma 16 7 - 21 mg/dL 02/24/2025 7:37 AM EDT [facility] Creatinine, Plasma 0.89 0.70 - 1.20 mg/dL 02/24/2025 7:37 AM EDT [facility] BUN/Creatinine Ratio 18 02/24/2025 7:37 AM EDT [facility] Sodium, Plasma 137 136 - 145 mmol/L 02/24/2025 7:37 AM EDT [facility] Potassium, Plasma 4.6 3.6 - 4.9 mmol/L 02/24/2025 7:37 AM EDT [facility] Chloride, Plasma 101 97 - 107 mmol/L 02/24/2025 7:37 AM EDT [facility] CO2, Plasma 26 22 - 29 mmol/L 02/24/2025 7:37 AM EDT [facility] Anion Gap 10 6 - 16 mmol/L 02/24/2025 7:37 AM EDT [facility] Total Calcium, Plasma 9.2 8.9 - 10.2 mg/dL 02/24/2025 7:37 AM EDT [facility] eGFRcr 114.6 mL/min/1.7 3m*2 02/24/2025 7:37 AM EDT [facility] Comment:Reported eGFRcr in m L/min/1.73m2 is based the CKD-EPI 2020 equation that does not use a race coefficient. Blood Venous blood specimen / Unknown Venipuncture / Unknown 02/24/2025 7:04 AM EDT 02/24/2025 7:10 AM EDT us Lawrence Hayes MD LAB BLOOD ORDERABLES Final Re sult [facility] [address] [place] [address] * (ABNORMAL) Basic metabolic panel (02/22/2025 2:24 AM EDT) Pathologist [facility] Glucose, Plasma 150(H) 74 - 99 mg/dL 02/22/2025 2:56 AM EDT [facility] BUN, Plasma 20 7 - 21 mg/dL 02/22/2025 2:56 AM EDT [facility] Creatinine, Plasma 0.98 0.70 - 1.20 mg/dL 02/22/2025 2:56 AM EDT [facility] BUN/Creatinine Ratio 20 02/22/2025 2:56 AM EDT [facility] Sodium, Plasma 138 136 - 145 mmol/L 02/22/2025 2:56 AM EDT [facility] Potassium, Plasma 5.2(H) 3.6 - 4.9 mmol/L 02/22/2025 2:56 AM EDT [facility] Chloride, Plasma 101 97 - 107 mmol/L 02/22/2025 2:56 AM EDT [facility] CO2, Plasma 25 22 - 29 mmol/L 02/22/2025 2:56 AM EDT [facility] Anion Gap 12 6 - 16 mmol/L 02/22/2025 2:56 AM EDT [facility] Total Calcium, Plasma 9.2 8.9 - 10.2 mg/dL 02/22/2025 2:56 AM EDT [facility] eGFRcr 103.1 mL/min/1.7 3m*2 02/22/2025 2:56 AM EDT [facility] Comment:Reported eGFRcr in m L/min/1.73m2 is based the CKD-EPI 2020 equation that does not use a race coefficient. Blood Venous blood specimen / Unknown Venipuncture / Unknown 02/22/2025 2:24 AM EDT 02/22/2025 2:28 AM EDT us Lawrence Hayes MD LAB BLOOD ORDERABLES Final Re sult [facility] [address] [place] [address] * (ABNORMAL) CBC (02/22/2025 2:24 AM EDT) WBC Count 10.82(H) 3.70 - 10.30 10*3/uL LAB HEMATOLOGY METHOD 02/22/2025 2:36 AM EDT [facility] RBC Count 3.92(L) 4.60 - 6.10 10*6/uL LAB HEMATOLOGY METHOD 02/22/2025 2:36 AM EDT [facility] HGB 11.9(L) 13.7 - 17.5 g/dL LAB HEMATOLOGY METHOD 02/22/2025 2:36 AM EDT [facility] HCT 35.5(L) 40.0 - 51.0 % LAB HEMATOLOGY METHOD 02/22/2025 2:36 AM EDT [facility] Platelet Count 296 155 - 369 10*3/uL LAB HEMATOLOGY METHOD 02/22/2025 2:36 AM EDT [facility] MCV 91 79 - 98 fL LAB HEMATOLOGY METHOD 02/22/2025 2:36 AM EDT [facility] MCH 30.4 26.0 - 32.0 pg LAB HEMATOLOGY METHOD 02/22/2025 2:36 AM EDT [facility] MCHC 33.5 30.7 - 35.5 g/dL LAB HEMATOLOGY METHOD 02/22/2025 2:36 AM EDT [facility] RDW 12.9 11.5 - 14.5 % LAB HEMATOLOGY METHOD 02/22/2025 2:36 AM EDT [facility] MPV 9.6 8.8 - 12.5 fL LAB HEMATOLOGY METHOD 02/22/2025 2:36 AM EDT [facility] nRBC 0.0 <=0.0 per 100 WBCs LAB HEMATOLOGY METHOD 02/22/2025 2:36 AM EDT [facility] Blood Venous blood specimen / Unknown Venipuncture / Unknown 02/22/2025 2:24 AM EDT 02/22/2025 2:28 AM EDT Lawrence Hayes MD LAB BLOOD ORDERABLES Final Re sult Performing Organization Address [facility]/ZIP Co de Phone Number [facility] [address] [place] [address] * Multi Drug Resistance Test (02/21/2025 6:24 PM EDT) Culture No growth at day 1 02/22/2025 8:30 PM EDT [facility] Swab (Nares and Janeth Rectal) Non-blood Collection / Unknown 02/21/2025 6:24 PM EDT 02/21/2025 6:56 PM EDT Narrative [facility] - 02/22/2025 8:30 PM EDT This test was developed and its performance characteristics determined by the [facility]. Although the media is FDA-approved, it is not FDA-approved for all specimen types submitted. The FDA has determined that such clearance or approval is not necessary. This test is used for surveillance purposes. It should not be regarded as investigational or for research. The [facility] is certified under the Clinical Laboratory Improvement Amendments of 1988 (CLIA-88) as qualified to perform high complexity clinical laboratory testing. Lawrence Hayes MD LAB MICROBIOLOGY - GENERAL OR DERABLES Final Result Performing Organization Address [facility] Co de Phone Number [facility] [address] [place] [address] * Tissue Culture and Gram Stain (02/21/2025 3:14 PM EDT) Culture No growth at day 4 2024 2:36 PM EDT [facility] Gram Stain Result Rare Polymorphonuclear leukocytes 02/25/2025 2:36 PM EDT [facility] Gram Stain Result No organisms seen 02/25/2025 2:36 PM EDT [facility] Tissue Structure of left knee region / Unknown 02/21/2025 3:14 PM EDT 02/21/2025 4:40 PM EDT Comment:Pre-op diagnosis: Tibial plateau fracture, left, closed, initial encounter [S82.142A] Surgical site infection [T81.49XA] Result [facility] Lawrence Hayes MD LAB MICROBIOLOGY - GENERAL OR DERABLES Final Result Performing Organization Address [facility] de Phone Number [facility] [address] [place] [address] * Anaerobic Culture (02/21/2025 3:14 PM EDT) Culture No growth at day 4 02/28/2025 12:46 PM EDT [facility] Tissue Structure of left knee region / Unknown 02/21/2025 3:14 PM EDT 02/21/2025 4:40 PM EDT Comment:Pre-op diagnosis: Tibial plateau fracture, left, closed, initial encounter [S82.142A] Surgical site infection [T81.49XA] Result [facility] Lawrence Hayes MD LAB MICROBIOLOGY - GENERAL OR DERABLES Final Result Performing Organization Address [facility] de Phone Number [facility] [address] [place] [address] * FL Less than 1 Hour Intraoperative (02/21/2025 3:00 PM EDT) Narrative IMAGING - 02/21/2025 5:00 PM EDT Images were obtained for surgical purposes. See Lawrence Hayes's surgical note in the patient's chart for the findings. Result [facility] Lawrence Hayes MD IMG FLUOROSCOPY PROCEDURES Fi nal Result Performing Organization Address [facility] de Phone Number IMAGING * (ABNORMAL) Tissue Culture and Gram Stain (02/21/2025 3:00 PM EDT) Culture 2+ Klebsiella pneumoniae(A) JOVANI 02/25/2025 2:52 PM EDT [facility] Comment: This isolate has been identified using the FDA Approved Infinite Zer CA System The organism value for this result has been updated. These results have been appended to the previously preliminary verified report. Edited result: Previously reported as Gram Negative Vick on 02/23/2025 at 0758 EDT. Culture 2+ Corynebacterium amycolatum(A) JOVANI 02/25/2025 2:52 PM EDT [facility] Comment: This isolate has been identified using the FDA Approved MALDI Penne[employer]per CA System The organism value for this result has been updated. These results have been appended to the previously preliminary verified report. Culture 2+ Eikenella corrodens(A) JOVANI 02/25/2025 2:52 PM EDT [facility] Comment: This isolate has been identified using the FDA Approved MALDI [employer] CA System The organism value for this result has been updated. These results have been appended to the previously preliminary verified report. Culture 1+ Haemophilus haemolyticus(A) JOVANI 02/25/2025 2:52 PM EDT [facility] Comment: This isolate has been identified using the FDA Approved MALDI [employer] CA System The organism value for this result has been updated. These results have been appended to the previously preliminary verified report. Gram Stain Result Few Polymorphonuclear leukocytes 02/25/2025 2:52 PM EDT [facility] Gram Stain Result No organisms seen 02/25/2025 2:52 PM EDT [facility] Tissue [...] Final Result Performing Organization Address [facility] de Phone Number [facility] [address] [place] [address] * Anaerobic Culture (02/21/2025 3:00 PM EDT) [facility] Culture Mixed aerobic and anaerobic sherley 02/26/2025 8:03 AM EDT [facility] Tissue Structure of left knee region / Unknown 02/21/2025 3:00 PM EDT 02/21/2025 4:41 PM EDT Comment:Pre-op diagnosis: Tibial plateau fracture, left, closed, initial encounter [S82.142A] Surgical site infection [T81.49XA] Lawrence Hayes MD LAB MICROBIOLOGY - GENERAL OR DERABLES Final Result Performing Organization Address [facility] de Phone Number [address] [address] * (ABNORMAL) POCT glucose meter (02/21/2025 11:50 AM EDT) [facility] POCT Glucose 108(H) 74 - 99 mg/dL 02/21/2025 11:51 AM EDT [facility] Comment:Accuracy of a glucos e result [...] 02/21/2025 11:51 AM EDT [facility] Mechanical Assembly ID Harvey Hernandez 02/22/20 11:51 AM EDT [facility] Device ID [id number] 02/21/2025 11:51 AM EDT [facility] Specimen Type POC Capillary 02/21/2025 11:51 AM EDT [facility] Blood Capillary blood specimen / Unknown 02/21/2025 11:50 AM EDT 02/21/2025 11:51 AM EDT us Lawrence Hayes MD LAB POINT OF CARE TE ST DOCKED DEVICE UNSOLICITED RESULTS Final Result [facility] [address] [place] [address] * Creatine Kinase (CK), Total (02/21/2025 11:43 AM EDT) Pathologist [facility] Creatine Kinase, Plasma 74 49 - 320 U/L 02/21/2025 5:45 PM EDT [facility] Blood Venous blood specimen / Unknown Venipuncture / Unknown 02/21/2025 11:43 AM EDT 02/21/2025 11:57 AM EDT us Stella N Kevin [employer] LAB BLOOD ORDERABLES Final Result Performing Organization Address [facility]/[place] [address] * Type and screen (02/21/2025 11:43 AM EDT) ABO/Rh A Positive 02/21/2025 11:33 AM EDT [facility] Antibody Screen Negative 02/21/2025 11:33 AM EDT [facility] Specimen Expiration 02/24/2025 23:59 02/21/2025 11:33 AM EDT [facility] Blood Venous blood specimen / Unknown Venipuncture / Unknown 02/21/2025 11:43 AM EDT 02/21/2025 11:54 AM EDT us Stella N Kevin [employer] LAB BLOOD BANK TEST ORDERA BLES Final Result Performing Organization Address [facility]/ZIP Co de Phone Number BLOOD BANK [address] [place] [address], * Protime-INR (02/21/2025 11:43 AM EDT) Prothrombin Time 13.6 12.0 - 14.3 sec LAB COAGULATION METHOD 02/21/2025 12:35 PM EDT [facility] INR 1.0 0.9 - 1.1 LAB COAGULATION METHOD 02/21/2025 12:35 PM EDT [facility] Blood Venous blood specimen / Unknown Venipuncture / Unknown 02/21/2025 11:43 AM EDT 02/21/2025 11:57 AM EDT Narrative [facility] - 02/21/2025 12:35 PM [...] of recurrent [place] INR 2.5 to 3.5 us Stella Brown [employer] LAB BLOOD ORDERABLES Final Result [facility] [address] [place] [address] * (ABNORMAL) Basic Metabolic Panel, Plasma (02/21/2025 11:43 AM EDT) Glucose, Plasma 101(H) 74 - 99 mg/dL 02/21/2025 12:29 PM EDT [facility] BUN, Plasma 12 7 - 21 mg/dL 02/21/2025 12:29 PM EDT [facility] Creatinine, Plasma 0.79 0.70 - 1.20 mg/dL 02/21/2025 12:29 PM EDT [facility] BUN/Creatinine Ratio 15 02/21/2025 12:29 PM EDT [facility] Sodium, Plasma 138 136 - 145 mmol/L 02/21/2025 12:29 PM EDT [facility] Potassium, Plasma 4.2 3.6 - 4.9 mmol/L 02/21/2025 12:29 PM EDT [facility] Chloride, Plasma 102 97 - 107 mmol/L 02/21/2025 12:29 PM EDT [facility] CO2, Plasma 23 22 - 29 mmol/L 02/21/2025 12:29 PM EDT [facility] Anion Gap 13 6 - 16 mmol/L 02/21/2025 12:29 PM EDT [facility] Total Calcium, Plasma 9.3 8.9 - 10.2 mg/dL 02/21/2025 12:29 PM EDT [facility] eGFRcr 118.8 mL/min/1.7 3m*2 02/21/2025 12:29 PM EDT [facility] Comment:Reported eGFRcr in m L/min/1.73m2 is based the CKD-EPI 2020 equation that does not use a race coefficient. Blood Venous blood specimen / Unknown Venipuncture / Unknown 02/21/2025 11:43 AM EDT 02/21/2025 11:57 AM EDT us Stella N Kevin [employer] LAB BLOOD ORDERABLES Final Result [facility] [address] [place] [address] * (ABNORMAL) CBC and Differential (02/21/2025 11:43 AM EDT) WBC Count 9.14 3.70 - 10.30 10*3/uL LAB HEMATOLOGY METHOD 02/21/2025 12:09 PM EDT [facility] RBC Count 4.18(L) 4.60 - 6.10 10*6/uL LAB HEMATOLOGY METHOD 02/21/2025 12:09 PM EDT [facility] HGB 12.6(L) 13.7 - 17.5 g/dL LAB HEMATOLOGY METHOD 02/21/2025 12:09 PM EDT [facility] HCT 37.8(L) 40.0 - 51.0 % LAB HEMATOLOGY METHOD 02/21/2025 12:09 PM EDT [facility] Platelet Count 298 155 - 369 10*3/uL LAB HEMATOLOGY METHOD 02/21/2025 12:09 PM EDT [facility] MCV 90 79 - 98 fL LAB HEMATOLOGY METHOD 02/21/2025 12:09 PM EDT [facility] MCH 30.1 26.0 - 32.0 pg LAB HEMATOLOGY METHOD 02/21/2025 12:09 PM EDT [facility] MCHC 33.3 30.7 - 35.5 g/dL LAB HEMATOLOGY METHOD 02/21/2025 12:09 PM EDT [facility] RDW 13.2 11.5 - 14.5 % LAB HEMATOLOGY METHOD 02/21/2025 12:09 PM EDT [facility] MPV 9.5 8.8 - 12.5 fL LAB HEMATOLOGY METHOD 02/21/2025 12:09 PM EDT [facility] nRBC 0.0 <=0.0 per 100 WBCs LAB HEMATOLOGY METHOD 02/21/2025 12:09 PM EDT [facility] Differential Type Automated LAB HEMATOLOGY METHOD 02/21/2025 12:09 PM EDT [facility] Neutrophils % 60 % LAB HEMATOLOGY METHOD 02/21/2025 12:09 PM EDT [facility] Lymphocytes % 31 % LAB HEMATOLOGY METHOD 02/21/2025 12:09 PM EDT [facility] Monocytes % 7 % LAB HEMATOLOGY METHOD 02/21/2025 12:09 PM EDT [facility] Eosinophils % 2 % LAB HEMATOLOGY METHOD 02/21/2025 12:09 PM EDT [facility] Basophils % 0 % LAB HEMATOLOGY METHOD 02/21/2025 12:09 PM EDT [facility] Immature Granulocytes % 0 % LAB HEMATOLOGY METHOD 02/21/2025 12:09 PM EDT [facility] Neutrophils Absolute 5.37 1.60 - 6.10 10*3/uL LAB HEMATOLOGY METHOD 02/21/2025 12:09 PM EDT [facility] Lymphocytes Absolute 2.86 1.20 - 3.90 10*3/uL LAB HEMATOLOGY METHOD 02/21/2025 12:09 PM EDT [facility] Monocytes Absolute 0.65 0.30 - 0.90 10*3/uL LAB HEMATOLOGY METHOD 02/21/2025 12:09 PM EDT [facility] Eosinophils Absolute 0.18 0.00 - 0.50 10*3/uL LAB HEMATOLOGY METHOD 02/21/2025 12:09 PM EDT [facility] Basophils Absolute 0.04 0.00 - 0.10 10*3/uL LAB HEMATOLOGY METHOD 02/21/2025 12:09 PM EDT [facility] Immature Granulocytes Absolute 0.04 0.00 - 0.06 10*3/uL LAB HEMATOLOGY METHOD 02/21/2025 12:09 PM EDT [facility] Blood Venous blood specimen / Unknown Venipuncture / Unknown 02/21/2025 11:43 AM EDT 02/21/2025 11:59 AM EDT Narrative [facility] - 02/21/2025 12:09 PM EDT Therapeutic decision making should be based on absolute values, rather than percentages. us Stella Brown [employer] LAB BLOOD ORDERABLES Final Result [facility] [address] [place] [address] documented in this encounter Visit Diagnoses Diagnosis [...] EDT 40 mg Le ft Lower Abdomen methocarbamol (Robaxin) tablet 750 mg 750 mg, [...] 1 Application oxyCODONE (Roxicodone) immediate release tablet 5 mg [...] 2202, Routine, Recovery(Phase II-Outpatient)/On Unit(Inpatient), moderate pain polyethylene glycol (Miralax) packet 17 g 17 g, Oral, Daily, First dose on Mon02/22/25 at 0900, Until Discontinued, Routine senna-docusate (Janeth-Colace) 8.6-50 MG per tablet 1 tablet 1 tablet, Oral, 2 times daily, First dose on Mon02/21/25 at 2100, Until Discontinued, Routine, Recovery(Phase II-Outpatient)/On Unit(Inpatient) Given 02/23/2025 8:58 PM EDT 1 tablet Given 02/21/2025 8:38 PM EDT 1 tablet documented in this encounter Active and Recently [...] on Mon02/24/25 at 1700, Until Discontinued, Routine 1816 (New Bag - Provider: Cosmo Traylor RN) DAPTOmycin (Cubicin) 1,100 mg in sodium chloride 0.9 % 100 mL IVPB 1,100 mg (rounded from 1,090 mg = 10 mg/kg 109 kg Adjusted weight), Intravenous, Every 24 hours, First dose (after last modification) on Mon02/21/25 at 2100, Until Discontinued, Routine, Recovery(Phase II-Outpatient)/On Unit(Inpatient) 2030 (New Bag - Provider: Shelley Rodas RN) [...] Cosmo Traylor RN)1740 (Given - Provider: Cosmo Tarylor RN)210 (Given - Provider: Shelley Rodas RN) 0829 [...] Traylor RN)1740 (New Bag - Provider: Cosmo Traylor, SHEREEN)2325 (New Bag - Provider: Shelley Rodas RN) [...] Corona RN)2127 (Given - Provider: Shelley Rodas, RN) oxyCODONE (Roxicodone) immediate release tablet 5 mg(Linked Group 2) 5 mg, Oral, Every 4 hours PRN, Starting on Mon02/23/25 at 0437, Until Mon02/24/25 at 0436, Routine, Recovery(Phase II-Outpatient)/On Unit(Inpatient), moderate pain 0745 (Given - Provider: Cosmo Traylor, SHEREEN)2057 (Given - Provider: Shelley Rodas, SHEREEN) oxyCODONE (Roxicodone) immediate release tablet 5 mg(Linked Group 2) 5 mg, Oral, Every 6 hours PRN, Starting on Mon02/24/25 at 0437, Until Mon02/24/25 at 2202, Routine, Recovery(Phase II-Outpatient)/On Unit(Inpatient), moderate pain 0727 (Given - Provider: Cosmo Traylor, SHEEREN) oxyCODONE (Roxicodone) immediate release tablet 5 mg(Linked [...] documented as of this encounter Care Teams Screener Perfumer Relationship Specialty Start Date End Date Blaine Nava MD [address] [place] [address] #1 #1 JOHN Miller [id number] PCP - General 02/17/25 documented as of this encounter
--- OUTSIDE RECORDS SUMMARY | 2025-02-21 14:18 | XMS_ITS | Encounter Summary ---
Author Organization Healthcare Address [address] [place] [address] Care Team Providers Care Coil Connector Name Role Phone Blaine Nava MD Primary Care Provider [phone] Reason for Visit * Auth/Cert (Routine) Specialty Diagnoses / Procedures Referred By Adalid t Referred To Contact Diagnoses Tibial plateau fracture, left, closed, initial encounter Surgical site infection Tibial plateau fracture, left, closed, initial encounter [S82.142A] Surgical site infection [T81.49XA] Procedures [place] DRAIN LOWER LEG DEEP ABSC/HEMATOMA INCISION AND DRAINAGE, LOWER EXTREMITY Lawrence Hayes MD [address] [facility] [address] [place] [address] Phone: tel: fax: [facility] RO[facility] [address] [place] [address] Phone: tel: Referral ID Status Reason Start Date Expiration Date Visits Re quested Visits Authorized [id number] 1 1 Encounter Details Date Type Department Care Team (Late st Contact Info) Description 02/21/2025 2:18 PM EDT Anesthesia Event [facility] [address] [place] [address] Raheem Subramanian, [address] [place] [phone] Anesthesia Record Procedure Summary Procedure Name Responsible [...] No change to dentition. ; Placed by: TRADER; Removal Date: 02/21/25; Removal Time: 16102/21/25 142 [...] and Family Not on file 02/24/2025 Attends Rastafarian Services Not on file 02/24 Active Member [...] any time in the past 12 m [facility], were you homeless or living in [...] drink first t traci in the morning (EYE-DEVELOPMENT ADVISOR) to steady your nerves or to get [...] and Staff Patient location during procedure: OR TRADER: Goran Ty CRNA Performed: TRADER Patient Condition Indications for airway management: anesthesia [...] DRAINAGE, LOWER EXTREMITY (Left: Leg Lower) Location: [facility] / [facility] OR Surgeons: [...] ABG No results found for: PHART , MTL1HQZ , PO2ART , SO2ART , BEART , VSV5JPN , HCTART , SODIUMART , POTASSIUMART , POCTCL , POCGLU , IONCALART , LACTATE Lab Results Component Value Date HCTSYR 40.4 01/15/2025 KSYR 4.3 01/15/2025 CLSYR 99 01/15/2025 GLUSYR 110 (H) 01/15/2025 CAION 4.6 01/15/2025 ECHO No echocardiogram results found for the past 12 months PFTs No results found for: ADD6PGN , KGT1WRCF , DQH7ZJZ , FVCPRED BP Readings from Last 5 [...] Plan ASA 2 Plan was reviewed with: TRADER and resident Anesthesia technique(s) discussed with the [...] Negative GI ROS. [1] Allergies Allergen Reactions [place] Hives [2] Past Medical History: Diagnosis Date Fractures 09/09/2022 [3] [4] [5] Past Surgical History: Procedure Laterality Date INCISION AND DRAINAGE, LEG Left 01/20/2025 ([facility]) INCISION AND DRAINAGE, LOWER EXTREMITY (Left: Leg Lower) KNEE SURGERY Left 01/18/2025 ([facility]) INCISION AND DRAINAGE, LOWER EXTREMITY (Left: Leg Lower) LEG SURGERY Left CHRIS NAIL IM RODDING Left 09/10/2024 ([facility]) INSERTION, INTRAMEDULLARY SHERLY, FEMUR (Left: Leg Upper) ORIF TIBIA FRACTURE Left 09/15/2023 ([facility]) ORIF, FRACTURE, TIBIA, PLATEAU (Left: Leg Lower) ORIF TIBIAL PLATEU FRACTURE Left 01/01/2025 ([facility]) ORIF, FRACTURE, TIBIA, PLATEAU [...] Description 2025 7:50 AM EDT Office Visit [facility] Orthopaedic Surgery & Sports Medicine [address] [place] [address] Stella Brown, WATER PROJECT MANAGER [address] [place] [address] 2025 10:30 AM EDT Office Visit [address] [address] Santiago Collado MD [address] [place] [address] 03/27/2025 9:30 AM EDT Office Visit [address] [address] Santiago Collado MD [address] [place] [address] documented as of this encounter Procedures Procedure Name Priority Date/Time Associated Diagnosis Comments PB ANESTHESIA PLACEHOLDER Routine 02/21/2025 2:26 PM EDT HI AN ELECTIVE ENDOTRACHEAL AIRWAY Routine 02/21/2025 2:26 PM EDT documented in this encounter Results * HI AN ELECTIVE ENDOTRACHEAL AIRWAY, PB ANESTHESIA PLACEHOLDER (02/21/2025 2:26 PM EDT) Narrative Goran Ty CRNA - 02/21/2025 2:26 PM EDT Goran Ty CRNA 02/21/2025 2:35 PM Airway Date/Time: 02/21/2025 2:26 PM Reason: elective Airway not difficult General Information and Staff Patient location during procedure: OR TRADER: Goran Ty CRNA Performed: TRADER Patient Condition Indications for airway management: anesthesia [...] documented as of this encounter Care Teams Coil Connector Relationship Specialty Start Date End Date Blaine Nava MD [address] [place] [address] [address] [place] [address] PCP - General 02/17/25 documented as of this encounter
[2025-03-10 12:56] VITALS: BMI 42.3
--- OUTSIDE RECORDS SUMMARY | 2025-03-10 13:00 | XMS_ITS | Encounter Summary ---
Author Organization Healthcare Address [address] [place] [address] Care Team Providers Care Telecommunications Network Planner Name Role Phone Blaine Nava MD Primary Care Provider [phone] Encounter Details Date Type Department Care Team (Late st Contact Info) Description 02/25/2025 Clinical Support [facility] [address] [place] [address] Sachin Singh, PharmD [address] [place] [address] [address] [place] [address] Social History Tobacco Use Types [...] in a nursing home (including now)? No 02/24/2025 CAGE ASSESSMENT [...] drink first t traci in the morning (EYE-LINUX PROGRAMMER) to steady your nerves or to get [...] IV every 24 hours Silvia, pharmacist [facility]; . End date is 04/04/2025. Sachin Singh PharmD, [facility] Clinical Pharmacist, Infectious Diseases & Outpatient Parenteral Antimicrobial Therapy (OPAT) Available via [employer] Secure Chat documented in this encounter Plan of Treatment Upcoming Encounters Date Type Department Care Team (Late st Contact Info) Description 2025 7:50 AM EDT Office Visit [facility] Orthopaedic Surgery & Sports Medicine [address] 1[address] [place] [address] Stella Brown, HOSPITAL CLEANER [address] [place] [address] 2025 10:30 AM EDT Office Visit [address] [address] Santiago Collado MD [address] [place] [address] [address] [place] [address] 03/27/2025 9:30 AM EDT Office Visit [address] [address] Santiago Collado MD [address] [place] [address] [address] [place] [address] documented as of this encounter [...] documented as of this encounter Care Teams Telecommunications Network Planner Relationship Specialty Start Date End Date Blaine Nava MD [address] [place] [address] [address] [place] [address] PCP - General 02/17/25 documented as of this encounter
--- OUTSIDE RECORDS SUMMARY | 2025-03-10 13:00 | XMS_ITS | Encounter Summary ---
Author Organization Healthcare Address [address] [place] [address] Care Team Providers Care Pneumatic Tool Repairer Name Role Phone Blaine Nava MD Primary Care Provider [phone] Encounter Details Date Type Department Care Team (Late st Contact Info) Description 02/25/2025 Clinical Support [facility] [address] [place] [address] Sachin Singh, PharmD [address] [place] [address] [address] [place] [address] Social History Tobacco Use Types [...] and Family Not on file 02/24/2025 Attends Worship Services Not on file 02/24 Active Member [...] time in the past 12 m [facility], were you homeless or living in a intermediate (including now)? No 02/24/2025 CAGE ASSESSMENT Answer [...] first t traci in the morning (EYE-SPRAY DYER) to steady your nerves or to get [...] Description 2025 7:50 AM EDT Office Visit [facility] Orthopaedic Surgery & Sports Medicine [address], 1[address] [place] [address] Stella Brown, HOUSEKEEPER HEAD [address] [place] [address] 2025 10:30 AM EDT Office Visit [address] [address] Santiago Collado MD [address] [place] [address] [address] [place] [address] 03/27/2025 9:30 AM EDT Office Visit [address] [address] Santiago Collado MD [address] [place] [address] [address] [place] [address] documented as of this encounter [...] documented as of this encounter Care Teams Pneumatic Tool Repairer Relationship Specialty Start Date End Date Blaine Nava MD [address] [place] [address] [address] [place] [address] PCP - General 02/17/25 documented as of this encounter
--- OUTSIDE RECORDS SUMMARY | 2025-03-10 13:01 | XMS_ITS | Encounter Summary ---
Author Organization [facility] Address [address] [place] [address] Care Team Providers Care Catapult And Arresting Gear Officer Name Role Phone Blaine Nava MD Primary Care Provider Encounter Details Date Type Department Care Team [...] any time in the past 12 m [facility], were you homeless or living in [...] drink first t traci in the morning (EYE-GRADE AND CENTER MARKER) to steady your nerves or to get [...] Description 2025 7:50 AM EDT Office Visit [facility] Orthopaedic Surgery & Sports Medicine [address], 1[address] [place] [address] Stella Brown, NEGOTIATOR SALES [address] [place] [address] 2025 10:30 AM EDT Office Visit [facility] [address] [place] [address] Santiago Collado MD [address] [facility] [address] [place] [address] 03/27/2025 9:30 AM EDT Office Visit [facility] [address] [place] [address] Santiago Collado MD [address] [facility] [address] [place] [address] documented as of this [...] documented as of this encounter Care Teams Catapult And Arresting Gear Officer Relationship Specialty Start Date End Date Blaine Nava MD [address] [place] [address] [address] [place] [address] PCP - General 02/17/25 documented as of this encounter
--- OUTSIDE RECORDS SUMMARY | 2025-03-10 13:02 | XMS_ITS | Encounter Summary ---
Author Organization Healthcare Address [address] [place] [address] Care Team Providers Care Dry House Wheeler Name Role Phone Renetta Pardo APRN Primary Care Provider [phone] Encounter Details Date Type Department Care Team [...] drink first t traci in the morning (EYE-GROCERY BUYER) to steady your nerves or to get [...] Orthopaedic Surgery & Sports Medicine [address] 1[address] [place] [address] Stella Brown, NATURAL GAS ENGINEER [address] [place] [address] 2025 10:30 AM EDT Office Visit [facility] [address] [place] [address] Santiago Collado MD [address] [facility] [address] [place] [address] 03/27/2025 9:30 AM EDT Office Visit [facility] [address] [place] [address] Santiago Collado MD [address] [facility] [address] [place] [address] documented as of this encounter [...] as of this encounter Care Teams Dry House Wheeler Relationship Specialty Start Date End Date Renetta Pardo APRN [address] [place] [address] Dr [address] [place] [address] PCP - General 09/09/23 02/16/25 documented as of this encounter
--- OUTSIDE RECORDS SUMMARY | 2025-03-10 13:03 | XMS_ITS | Encounter Summary ---
Author Organization Healthcare Address [address] [place] [address] Care Team Providers Care Icing And Glaze Maker Name Role Phone Renetta Pardo APRN Primary Care Provider [phone] Encounter Details Date Type Department Care Team [...] time in the past 12 m [facility], were you homeless or living [...] drink first t traci in the morning (EYE-DOCTOR OF NAPRAPATHY) to steady your nerves or to get [...] Description 2025 7:50 AM EDT Office Visit [facility] Orthopaedic Surgery & Sports Medicine [address] [place] [address] Stella Brown, FACULTY CRIMINAL JUSTICE [address] [place] [address] 2025 10:30 AM EDT Office Visit [address] [address] Santiago Collado MD [address] [place] [address] 03/27/2025 9:30 AM EDT Office Visit [address] [address] Santiago Collado MD [address] [place] [address] documented as of this encounter Visit [...] documented as of this encounter Care Teams Icing And Glaze Maker Relationship Specialty Start Date End Date Renetta Pardo APRN [address] [place] [address] [place] [address] PCP - General 09/09/23 02/16/25 documented as of this encounter
--- OUTSIDE RECORDS SUMMARY | 2025-03-10 13:03 | XMS_ITS | Clinical Summary ---
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 [place] [address] * Joint Infection Panel by PCR (01/18/2025 12:17 PM EDT) Anaerococcus prevotii/vaginalis PCR Result Not Detected Not Detected 01/18/2025 5:28 PM EDT [facility] Clostridium perfringens PCR Result Not Detected [...] Detected Not Detected 01/18/2025 5:28 PM EDT [facility] Streptococcus agalactiae PCR Result Not Detected [...] Final Result [facility] [address] [place] [address] * LA AN ELECTIVE ENDOTRACHEAL AIRWAY, PB ANESTHESIA PLACEHOLDER [...] IV Date/Time: 01/18/2025 9:13 AM Inserted by: aMrk Little MD Placement Needle size: 18 G [...] O RDERABLES Final Result Performing Organization Address [facility] Co de Phone Number [facility] [address] [place] [address] * Vancomycin, Peak, Plasma Please draw ~2 [...] ORDERABLES Final R esult Performing Organization Address [facility] de Phone Number [facility] [address] [place] [address] * Vancomycin, Trough, Plasma Please draw ~30 [...] R esult [facility] [address] [place] [address] * US Extremity Limited MSK or Soft [...] MD on 01/16/2025 2:31 AM Gus Tierney DOOR TO DOOR SALES REPRESENTATIVE IMG CT PROCEDURES Final Result * Blood [...] submitted, results may be compromised Gus Tierney DOOR TO DOOR SALES REPRESENTATIVE LAB MICROBIOLOGY - GENER AL ORDERABLES Final Result [facility] [address] [place] [address] * XR Chest 1 View (01/15/2025 11:21 [...] this written report. Preliminary report signed by Gutsavo Cesar MD on 01/15/2025 11:33 PM By [...] MD on 01/15/2025 11:40 PM us Gus Tierney DOOR TO DOOR SALES REPRESENTATIVE IMG XR PROCEDURES Final Result * ECG Adult (01/15/2025 10:46 PM EDT) Only the most recent of3 resultswithin the time period is included. EKG DIAGNOSIS CLASS Normal MUSE ECG Ventricular Rate 92 BPM MUSE ECG Atrial Rate 92 BPM MUSE ECG LA Interval 122 ms MUSE ECG QRSD Interval 102 ms MUSE ECG QT Interval 350 ms MUSE ECG QTC Interval 432 ms MUSE ECG P [place] 56 degrees MUSE ECG R [place] 44 degrees MUSE ECG T Wave [place] 57 degrees MUSE ECG Diagnosis Normal sinus [...] Result [facility] [address] [place] [address] * Lactate, venous (01/02/2025 2:46 AM EDT) Only the most recent of4 resultswithin the time period is included. Pathologist [facility] Lactate, Venous, Whole Blood 1.8 0.5 - 2.2 mmol/L LAB HEMATOLOGY METHOD 01/02/2025 2:55 AM EDT [facility] Blood Venous blood specimen / Unknown Venipuncture / Unknown 01/02/2025 2:46 AM EDT 01/02/2025 2:53 AM EDT Lawrenec Hayes MD LAB BLOOD ORDERABLES Final Re sult [facility] [address] [place] [address] * LA AN ELECTIVE ENDOTRACHEAL AIRWAY, PB ANESTHESIA PLACEHOLDER (01/01/2025 11:28 AM EDT) Narrative Rubén Millan CRNA - 01/01/2025 11:28 AM EDT Rubén Millan CRNA 01/01/2025 11:31 AM Airway Date/Time: 01/01/2025 11:28 AM Reason: elective Airway not difficult General Information and Staff Patient location during procedure: OR WELL SERVICING RIG OPERATOR: Rubén Millan CRNA Performed: JULES Patient Condition [...] * Hemoglobin A1c (01/01/2025 7:17 AM EDT) Pathologist [facility] Hemoglobin A1c 5.6 <5.7 % 01/01/2025 8:29 AM EDT [facility] Blood Venous blood specimen / Unknown Venipuncture / Unknown 01/01/2025 7:17 AM EDT 01/01/2025 7:23 AM EDT Narrative [facility] - 01/01/2025 8:29 AM EDT [...] Re sult [facility] [address] [place] [address] * XR Ankle Left 3+ Views (01/01/2025 [...] this written report. Preliminary report signed by Rihcard Head MD on 01/01/2025 2:33 AM By [...] Reactive Non Reactive 01/01/2025 1:33 AM EDT [facility] Comment:Screening for HIV 1 & 2 antibodies, and P24 antigen is NONREACTIVE. No confirmatory testing is required. Blood Venous blood specimen / Unknown Venipuncture / Unknown 01/01/2025 12:35 AM EDT 01/01/2025 12:52 AM EDT us Kareem Perera MD LAB BLOOD ORDERABLES Final Resu lt [facility] [address] [place] [address] * Hepatitis C Antibody - ED (01/01/2025 12:35 AM EDT) Hepatitis C Antibody Negative Negative 01/01/2025 1:33 AM EDT [facility] Blood Venous blood specimen / Unknown Venipuncture / Unknown 01/01/2025 12:35 AM EDT 01/01/2025 12:52 AM EDT Kareem Perera MD LAB BLOOD ORDERABLES Final Resu lt Performing Organization Address City/[facility]/ZIP Co de Phone Number [facility] [address] [place] [address] * Light Green Top (01/01/2025 12:27 AM EDT) Extra Hold for add-ons 01/01/2025 3:02 AM EDT [facility] Comment:Auto resulted. Blood Venous blood specimen / Unknown 01/01/2025 12:27 AM EDT 01/01/2025 12:42 AM EDT Result [facility] Kareem Perera MD LAB BLOOD ORDERABLES Final Resu lt Performing Organization Address [facility] Co de Phone Number [facility] [address] [place] [address] * CT OUTSIDE IMAGES (12/31/2024 7:02 PM [...] Patient has decision-making capacity? Yes Care Teams Revenue Cycle Specialist Relationship Specialty Start Date End Date Blaine Nava MD [address] [place] [address] [address] [place] [address] PCP - General 02/17/25
--- OUTSIDE RECORDS SUMMARY | 2025-03-10 13:03 | XMS_ITS | Encounter Summary ---
Author Organization Healthcare Address [address] [place] [address] Care Team Providers Care Console Manager Name Role Phone Renetta Pardo APRN Primary Care Provider [phone] [phone] Encounter Details Date Type Department Care Team [...] in the past 12 m [facility], were you homeless or living [...] drink first t traci in the morning (EYE-PAYROLL ASSISTANT) to steady your nerves or to [...] Description 2025 7:50 AM EDT Office Visit [facility] Orthopaedic Surgery & Sports Medicine [address], [address] [place] [address] Stella Brown, BATCH BLENDER [address] [place] [address] 2025 10:30 AM EDT Office Visit [address] [address] Santiago Collado MD [address] [place] [address] 03/27/2025 9:30 AM EDT Office Visit [address] [address] Santiago Collado MD [address] [place] [address] documented as of this encounter Visit [...] documented as of this encounter Care Teams Console Manager Relationship Specialty Start Date End Date Renetta Pardo APRN [address] [place] [address] [place] [address] PCP - General 09/09/23 02/16/25 documented as of this encounter
--- OUTSIDE RECORDS SUMMARY | 2025-03-10 13:03 | XMS_ITS | Encounter Summary ---
Author Organization Healthcare Address [address] [place] [address] Care Team Providers Care Virtualization Architect Name Role Phone Renetta Pardo APRN Primary Care Provider [phone] Encounter Details Date Type Department Care Team (Late st Contact Info) Description 01/24/2025 Telephone [facility] Orthopaedic Surgery & Sports Medicine [address], 1[address] [place] [phone] Camden Vital, TUBE ROOM SUPERVISOR & ACUTE CARE SURG SVCS ADMIN Social [...] in the past 12 m [facility], were you homeless or living in a [...] drink first t traci in the morning (EYE-BACTERIOLOGIST SOIL) to steady your nerves or to get rid of a hangover? 0 09/10/2023 CAGE Questionnaire Score 0 024 Utilities Answer Date Recorded In the past 12 months has th e [employer], gas, oil, or water [employer] threatened to shut off services in your [...] Description 2025 7:50 AM EDT Office Visit [facility] Orthopaedic Surgery & Sports Medicine [address], [address] [place] [phone] Stella Brown, FIRE TECHNOLOGY INSTRUCTOR [address] [place] [address] 2025 10:30 AM EDT Office Visit [facility] [address] [place] [address] Santiago Collado MD [address] [facility] [address] [place] [address] 03/27/2025 9:30 AM EDT Office Visit [facility] [address] [place] [address] Santiago Collado MD [address] [facility] [address] [place] [address] documented as of this encounter [...] documented as of this encounter Care Teams Virtualization Architect Relationship Specialty Start Date End Date Renetta Pardo APRN [address] [place] [address] [address] [place] [address] PCP - General 09/09/23 02/16/25 documented as of this encounter
--- OUTSIDE RECORDS SUMMARY | 2025-03-10 13:03 | XMS_ITS | Encounter Summary ---
Author Organization Healthcare Address [address] [place] [address] Care Team Providers Care Development Geologist Name Role Phone Renetta Pardo APRN Primary Care Provider [phone] Encounter Details Date Type Department Care Team (Late st Contact Info) Description 01/23/2025 Clinical Support [facility] [address] [place] [address] Sonia Meyer, PharmD Social History Tobacco Use [...] drink first t traci in the morning (EYE-NETWORK RELAY TESTER) to steady your nerves or to get [...] Discharge Communication: Confirmation of IV Antimicrobials Home [facility], Infusion [facility]; Comments ID / OPAT pharmacist called and spoke with chon Vega at [facility] to confirm orders for daptomycin 1100 mg IV every 24 hours until 03/03/25. Sonia Meyer PharmD, [facility] Clinical Pharmacist Infectious Diseases, OPAT Available via [employer] Secure Chat documented in this encounter Plan of Treatment Upcoming Encounters Date Type Department Care Team (Late st Contact Info) Description 2025 7:50 AM EDT Office Visit [facility] Orthopaedic Surgery & Sports Medicine [address], 1[address] [place] [address] Stella Brown, DELIVERY NURSE [address] [place] [address] 2025 10:30 AM EDT Office Visit [address] [address] Santiago Collado MD [address] [place] [address] 03/27/2025 9:30 AM EDT Office Visit [address] [address] Santiago Collado MD [address] [place] [address] documented as of this encounter Visit [...] as of this encounter Care Teams Development Geologist Relationship Specialty Start Date End Date Renetta Pardo APRN [address] [place] [address] Dr [address] [place] [address] PCP - General 09/09/23 02/16/25 documented as of this encounter
--- OUTSIDE RECORDS SUMMARY | 2025-03-10 13:03 | XMS_ITS | Encounter Summary ---
Author Organization [facility] Address [address] [place] [address] Care Team Providers Care Composing Machine Operator/Tender Name Role Phone Renetta Pardo APRN Primary Care Provider [phone] Blaine Nava MD Primary Care Provider [phone] Reason for Visit * Reason Onset Date Comments HCN - Patient Message 01/27/2025 Encounter Details Date Type Department Care Team (Late st Contact Info) Description 01/27/2025 Telephone [facility] Orthopaedic Surgery & Sports Medicine [address], 1st [address] [place] [address] Lawrence Hayes MD [address] [place] [address] HCN - Patient Message Social [...] and Family Not on file 02/24/2025 Attends [employer] Not on file 02/24 Active Member [...] time in the past 12 m [facility], were you homeless or living in a [facility] (including now)? No 02/24/2025 CAGE ASSESSMENT Answer [...] drink first t traci in the morning (EYE-LEARNING AND DEVELOPMENT MANAGER) to steady your nerves or to get rid of a hangover? 0 09/10/2023 CAGE Questionnaire Score 0 024 Utilities Answer Date Recorded In the past 12 months has th e [employer], gas, oil, or water company threatened [...] Please call to advise Best contact number: [phone] (mobile) Optimal time of day to reach [...] Orthopaedic Surgery & Sports Medicine [address], 1[address] [place] [address] Stella Brown, INTERNAL MEDICINE NURSE [address] [place] [address] 2025 10:30 AM EDT Office Visit [address] [address] Santiago Collado MD [address] [place] [phone] 03/27/2025 9:30 AM EDT Office Visit [address] [address] Santiago Collado MD [address] [place] [address] documented as of this encounter Visit [...] documented as of this encounter Care Teams Composing Machine Operator/Tender Relationship Specialty Start Date End Date Renetta Pardo APRN [address] [place] [address] Dr [address] [place] [address] PCP - General 09/09/23 02/16/25 Blaine Nava MD [address] [place] [address] [address] [place] [address] PCP - General 02/17/25 documented as of this encounter
--- OUTSIDE RECORDS SUMMARY | 2025-03-10 13:03 | XMS_ITS | Encounter Summary ---
Author Organization Healthcare Address [address] [place] [id number] Care Team Providers Care Foreign Languages Professor Name Role Phone Renetta Pardo APRN Primary Care Provider [phone] Encounter Details Date Type Department Care Team (Late st Contact Info) Description 01/23/2025 Clinical Support [facility] [address] [place] [address] Gume Ibarra, PharmD [address] [place] [address] Social History Tobacco Use Types Packs/Day Years [...] drink first t traci in the morning (EYE-INTERNET NETWORK SPECIALIST) to steady your nerves or to get rid of a hangover? 0 09/10/2023 CAGE Questionnaire Score 0 024 Utilities Answer Date Recorded In the past 12 months has th e [employer], gas, oil, or water company threatened to [...] Description 2025 7:50 AM EDT Office Visit [facility] Orthopaedic Surgery & Sports Medicine [address], 1[address] [place] [address] Stella Brown, MUD CAR WORKER [address] [place] [address] 2025 10:30 AM EDT Office Visit [address] [place] [address] [phone] Santiago Collado MD [address] [place] [address] [address] [place] [address] 03/27/2025 9:30 AM EDT Office Visit [address] [place] [address] [address] Santiago Collado MD [address] [place] [address] [address] [place] [address] documented as of this encounter Visit Diagnoses [...] documented as of this encounter Care Teams Foreign Languages Professor Relationship Specialty Start Date End Date Renetta Pardo APRN [address] [place] [address] [place] [address] PCP - General 09/09/23 02/16/25 documented as of this encounter
--- OUTSIDE RECORDS SUMMARY | 2025-03-10 13:04 | XMS_ITS | Encounter Summary ---
Author Organization [facility] Address [address] [place] [address] Care Team Providers Care Informatica Architect Name Role Phone Blaine Nava MD Primary Care Provider [phone] Encounter Details Date Type Department Care Team [...] any time in the past 12 m [facility], were you homeless or living [...] drink first t traci in the morning (EYE-NUTRITION ASSOCIATE) to steady your nerves or to [...] Orthopaedic Surgery & Sports Medicine [address], 1[address] [place] [address] Stella Brown, WARDROBE TECHNICIAN [address] [place] [address] 2025 10:30 AM EDT Office Visit [address] [address] Santiago Collado MD [address] [place] [address] 03/27/2025 9:30 AM EDT Office Visit [address] [address] Santiago Collado MD [address] [place] [address] documented as of this encounter Visit [...] documented as of this encounter Care Teams Informatica Architect Relationship Specialty Start Date End Date Blaine Nava MD [address] [place] [address] [address]1 [address] [place] [address] PCP - General 02/17/25 documented as of this encounter
--- OUTSIDE RECORDS SUMMARY | 2025-03-10 13:04 | XMS_ITS | Encounter Summary ---
Author Organization Healthcare Address [address] [place] [address] Care Team Providers Care Lean Manufacturing Coordinator Name Role Phone Renetta Pardo APRN Primary Care Provider [phone] Encounter Details Date Type Department Care Team [...] drink first t traci in the morning (EYE-MEMBER SERVICE SPECIALIST) to steady your nerves or to [...] 2025 7:50 AM EDT Office Visit [facility] Orthopaedic Surgery & Sports Medicine [address], 1st [address] [place] [address] Stella Brown, LOGISTICS PLANNING MANAGER [address] [place] [address] 2025 10:30 AM EDT Office Visit [facility] [address] [place] [address] Santiago Collado MD [address] [facility] [address] [place] [address] 03/27/2025 9:30 AM EDT Office Visit [facility] [address] [place] [address] Santiago Collado MD [address] [facility] [address] [place] [address] documented as of this encounter Visit Diagnoses Not on filedocumented in this encounter Additional Health Concerns Assessment Noted Time A fall risk assessment has been complete d for the patient 10/04/2023 8:38 AM EST A Body Mass Index follow-up plan has been documented for the patient 01/22/2025 4:22 PM EDT documented as of this encounter Care Teams Lean Manufacturing Coordinator Relationship Specialty Start Date End Date Renetta Pardo APRN [address] [place] [address] [address] [place] [address] PCP - General 09/09/23 02/16/25 documented as of this encounter
--- OUTSIDE RECORDS SUMMARY | 2025-03-10 13:04 | XMS_ITS | Encounter Summary ---
Author Organization [facility] Address [address] [place] [address] Care Team Providers Care Collar Tacker Name Role Phone Renetta Pardo APRN Primary Care Provider [phone] Encounter Details Date Type Department Care Team [...] drink first t traci in the morning (EYE-EVAPORATOR REPAIRER) to steady your nerves or to [...] Description 2025 7:50 AM EDT Office Visit [facility] Orthopaedic Surgery & Sports Medicine [address], 1[address] [place] [address] Stella Brown, CARTOGRAPHY PROFESSOR [address] [place] [address] 2025 10:30 AM EDT Office Visit [address] [address] Santiago Collado MD [address] [place] [address] [address] [place] [address] 03/27/2025 9:30 AM EDT Office Visit [address] [address] Santiago Collado MD [address] [place] [address] [address] [place] [address] documented as of this encounter Visit Diagnoses Not on filedocumented in this encounter Additional Health Concerns Assessment Noted Time A fall risk assessment has been complete d for the patient 10/04/2023 8:38 AM EST A Body Mass Index follow-up plan has been documented for the patient 01/22/2025 4:22 PM EDT documented as of this encounter Care Teams Collar Tacker Relationship Specialty Start Date End Date Renetta Pardo, CARTOGRAPHY PROFESSOR [address] [place] [address] Dr [address] [place] [address] PCP - General 09/09/23 02/16/25 documented as of this encounter
[2025-03-10 13:14] LABS: Hematocrit 36.5 % (42.0-52.0); Hemoglobin 11.9 g/dL (14.1-18.0); Immature Granulocytes % 0.2 %; Mean Corpuscular HGB Conc 32.6 g/dL (31.8-35.4); Mean Corpuscular Hemoglobin 29.8 pg (27.0-31.2); Mean Corpuscular Volume 91.5 fl (80-94); Nucleated Red Blood Cells % 0 %; Platelet Count 350 K/mm3 (142-424); Red Blood Count 3.99 M/mm3 (4.60-6.20); Red Cell Distribution Width-SD 43.7 fL; White Blood Count 5.9 K/mm3 (4.8-10.8)
[2025-03-10 13:27] LABS: Alanine Aminotransferase 23 U/L (12-78); Albumin Level 3.9 g/dl (3.5-5.0); Alkaline Phosphatase 105 U/L (38-126); Aspartate Amino Transferase 25 U/L (17-59); Bilirubin,Unconjugated 0.0 mg/dL (0.0-1.1); Blood Urea Nitrogen 16 mg/dl (9-20); Creatine Kinase 66 U/L (55-170); Creatinine Clearance Estimated 171 mL/min (50-200); Creatinine,Serum 0.70 mg/dl (0.66-1.25); Estimated Glomerular Filt Rate 128 ml/min (>60); GFR (African American) 155 ML/MIN (>60); Total Protein,Serum 6.4 g/dl (6.3-8.2)
[2025-03-10 13:29] LABS: Bilirubin,Direct 0.0 mg/dl (0.0-0.4); Bilirubin,Indirect 0.1 mg/dL (0.0-0.9); Bilirubin,Total < 0.1 mg/dl (0.2-1.3)
[2025-03-10 13:33] LABS: C-Reactive Protein 12.3 mg/L (0-4)
== END 2025-03-10 13:15 | disposition home or self-care (01) ==
LOC: INF 12:55
PROVIDERS: Visit Provider Orthopaedic Surgery
DX: T81.49XA Infection following a procedure, other surgical site, initial encounter (principal); X58.XXXA Exposure to other specified factors, initial encounter; Y93.9 Activity, unspecified; Y92.9 Unspecified place or not applicable; Y99.9 Unspecified external cause status
CPT/HCPCS: 36592; 80076; 82550; 82565; 84520; 85025; 86140

== ENCOUNTER 2025-03-17 09:08 | Outpatient (CLI) | payer MEDICAID, SELFPAY ==
--- OUTSIDE RECORDS SUMMARY | 2025-01-15 21:32 | XMS_ITS | Encounter Summary ---
Author Organization Healthcare Address [address] [place] [address] Care Team Providers Care Hose Tubing Backer Name Role Phone Renetta Pardo APRN Primary Care Provider [phone] Reason for Visit * Reason Comments Post-op Problem * Auth/Cert (Routine) Specialty Diagnoses / Procedures Referred By Adalid t Referred To Contact Diagnoses Acute postoperative pain Cellulitis of leg, left Cellulitis of left lower extremity Sepsis following procedure, initial encounter ([facility]) recent LLE surgery @ now with cellulitis Sachin Garza MD [id number] [place] [address] Phone: tel: fax: [facility] [address] [place] [address] Phone: tel: Referral ID Status Reason Start Date Expiration Date Visits Re quested Visits Authorized [id number] 1 1 Encounter Details Date Type Department Care Team (Latest Contact Info) Description 01/15/2025 9:32 PM EDT - 01/22/2025 5:16 PM EDT Hospital Encounter [facility] [address] [place] [address] Philippe Mann MD [address] [place] [address] Jeffrey Matute MD [address] [facility] [address] Danny Ly MD [address] [place] [address] Sachin Garza MD [address] [facility] [address] [place] [address] Cellulitis of leg, left (Primary Dx); Sepsis following procedure, initial encounter ([facility]); Cellulitis of left lower extremity; Acute postoperative pain; Closed fracture of left tibial plateau with routine healing, subsequent encounter Discharge Disposition: Home or Self Care Social [...] a care home (including now)? No 09/12/2023 Humiliation, Afraid, Rape, [...] any time in the past 12 m [facility], were you homeless or living in a care home (including now)? No 01/17/2025 CAGE ASSESSMENT Answer [...] drink first t traci in the morning (EYE-REGISTRY RN) to steady your nerves or to get rid of a hangover? 0 09/10/2023 CAGE Questionnaire Score 0 024 Utilities Answer Date Recorded In the past 12 months has th e [employer], gas, oil, or water company threatened to [...] Sign Reading Time Taken Comments Blood Pressure 132/85 01/22/2025 11:26 AM EDT Pulse 85 01/22/2025 11:26 AM EDT Temperature 36.9 C (98.5 F) 01/22/2025 11:26 AM EDT Respiratory Rate 15 01/22/2025 7:04 AM EDT Oxygen Saturation 100% 01/22/2025 11:26 AM EDT Inhaled Oxygen Concentration - - Weight 148 kg (325 lb 6.4 oz) 01/15/2025 9:33 PM EDT Height 190.5 cm (6' 3 ) 01/15/2025 9:33 PM EDT Body Mass Index 40.67 01/15/2025 9:33 PM EDT documented in this encounter Functional Status * Calculated C-SSRS Risk Score (Lifetime/Recent) Answer Date of Assessment Author No Risk Indicated 01/21/2025 8:00 PM EDT Taryn Miranda RN * Question Answer Date of Assessment Author 1. Wish to be (Past 1 Month) No 025 8:00 PM EDT Taryn Miranda, SHEREEN 2. Non-Specific Active Suici mike Thoughts (Past 1 Month) No 01/21/2025 8:00 PM EDT Forrest Miranda RN 6. Suicidal Behavior (Lifetime) No 8:00 PM EDT Taryn Miranda RN documented as of this encounter Medications at Time of Discharge ibuprofen 400 MG tablet Take 1 tablet by mouth every 6 hours as needed for mild pain. 50 tablet 01/02/2025 enoxaparin (Lovenox) 60 MG/0.6ML solution prefilled syringe Inject 0.6 mL under the skin 2 times a day for 53 doses. 31.8 mL 01/02/2025 06/23/202 5 acetaminophen (Tylenol) 500 MG tablet Take 2 tablets by mouth every 6 hours as needed for pain. 100 tablet 01/02/2025 5 DAPTOmycin (Cubicin) injectionIndicati ons:Cellulitis of leg, left Infuse 22 mL into a venous catheter 1 (one) time each day at the same time over 3 minutes. Inpatient/[place] specific directions only. Mix and deliver per institution/faci lity policy. 1 each 01/22/2025 5 methocarbamol (Robaxin) 750 MG tablet Take 1 tablet by mouth every 6 hours as needed for muscle spasms. 50 tablet 01/02/2025 5 multivitamin (Theragran-M) tablet Take 1 tablet by mouth 1 (one) time each day. 30 tablet 09/17/2023 5 naloxone (Narcan) 4 mg/0.1 mL nasal spray 1. Give 1 spray in nostril for no/slow breathing or cannot wake after opioid use 2. Call 911 3. Repeat in other nostril if symptoms continue 2 each 2 01/02/2025 5 Nutritional Supplements (Paul) pack Take 1 packet by mouth 2 times a day. 30 each 01/02/2025 5 oxyCODONE (Oxy-IR) 5 MG immediate release capsuleIndication s:Acute Pain Take 1 capsule by mouth every 6 hours as needed for severe pain. 25 capsule 01/22/2025 5 senna-docusate (Janeth-Colace) 8.6-50 MG tablet Take 1 tablet by mouth 2 times a day. 28 tablet 01/02/2025 5 documented as of this encounter Miscellaneous Notes * Leigh Muller RN - 01/22/2025 4:21 PM EDT Images from the original note were not included. Your Care at Home: PICC Line - Video If you're leaving the hospital with a PICC line, or peripherally inserted central catheter, it is important to know why you have the PICC line what questions to ask of your care provider and your role in maintaining it and avoiding infection. This video helps explains your PICC line care. To view the video go to this web address: [email or web address] Or, scan this QR code with your smart phone ?? [facility] * Rosaura OnFHIR - Leigh Rg RN - 01/22/2025 4:21 PM EDT Images from the original note were not included. [id number] Flushing Your PICC Line at Home Your peripherally inserted central catheter (PICC) line is used to deliver medicine or feedings. It?s a long, flexible tube (catheter) that goes into your vein, runs into larger veins, and ends up with the tip near where the superior vena cava enters your heart. To care for your PICC line, you willneed to flush it. This means you?ll need to clean it with a solution as directed by your health care provider. This keeps it from getting clogged or blocked. A clogged or blocked PICC line will need to be taken out and replaced. When to flush your PICC line You?ll need to flush your PICC line as often as directed by your health care provider. You may needto flush it after each use. If the PICC line is not in active use, you may need to flush it once a day. Or you may only need to flush it once a week. Talk with your provider about how often you should do this. What you?ll need ? Flushing solution. This is the liquid that you will send through the PICC line. Your health care provider will tell you what kind to use. In most cases, it is saline solution. This is a sterile mixof water and a tiny amount of salt. Your provider will also tell you how much to use. You may also need to flush with a heparin solution after the saline. Heparin is a medicine that thins the blood. It helps prevent blood from clotting in and around the catheter. ? A syringe. This is the device used to give an injection, or shot. A syringe is used to flush yourPICC line with the solution. You will probably use prefilled syringes. ? Alcohol wipes or rubbing alcohol and cotton balls. You?ll use these to clean some of the tools used to flush your line. This helps to prevent germs from going into your PICC line. ? Clean medical gloves. How to flush your PICC line Repeat these steps as often as your health care provider has instructed. Skip steps 2 and 3 if you are using prefilled syringes. Step 1. Wash your hands ? Wash your hands well with soap and clean running water for at least 20 seconds. Scrub them well, including the backs of your hands and between your fingers. ? If you don?t have access to soap and water, use an alcohol-based hand clip riveter. The gel should have at least 60% alcohol. Let the hands dry. ? Put on clean medical gloves. ? Only touch your PICC line with clean hands and when wearing clean gloves. This is to protect you from infection and to keep the line free from germs. Step 2. Fill the syringe ? Open a new bottle of the flushing solution. If you?re using a bottle that?s already open, use thealcohol to clean the top of the bottle. ? Remove the cap from the needle or tip of the syringe. Push the plunger of the syringe down all the way. ? Put the needle or tip of the syringe into the flushing solution. ? Pull the syringe plunger out. Stop when you have the right amount of flushing solution in the syringe. Your health care provider will tell you how much to use. Step 3. Remove air from the syringe ? Hold the syringe with the tip pointing up. ? Flick or tap the syringe with your finger. This will cause any large air bubbles to rise into thetip. ? Slowly push on the plunger until a tiny drop of flushing solution comes out of the needle or tip. ? Put the cap back on the needle or tip of the syringe. This will keep it germ- free until you use it. Step 4. Inject the flushing solution ? Scrub the top and sides of the port (end of the catheter) with an alcohol wipe for 15 seconds. Scrub using a twisting motion as if juicing an orange. Let it dry completely. Prevent it from touchinganything while drying. Don't blow on it. Don't reuse the alcohol wipe. Keep the port from touching anything until you connect the syringe. If you accidentally touch the port, clean it again. ? Open the clamp, if there is one. ? Take the cap off the needle or tip of the syringe. Insert the needle or tip into the port. Make sure you know if your PICC has a needleless connector. Ask your health care provider if you aren't sure. ? Push the plunger in slowly and smoothly. Don?t force the plunger. You shouldn?t feel any pressurewhen you push the fluid into the PICC line. If you do, stop and call your provider right away. Step 5. Finish flushing ? If there is a clamp, close it just before the syringe is empty. This stops blood from flowing back into the catheter. ? Remove the needle or tip of the syringe from the port. ? Put the syringe into a special container (sharps container). When to contact your doctor Contact your health care provider right away if you have: ? A fever of 100.4??F (38??C) or higher, or as directed by your provider. ? Chills during or after flushing your line. ? Swelling, redness, drainage, or pain around the PICC site. ? Bleeding from the PICC site. ? Tubing that leaks or is pulling out. ? A feeling of new resistance when flushing the PICC line, or you can't flush it at all. ? Medicine or fluids that don't drain from the bag into your PICC. Last Reviewed Date: 2024 00:00:00 ?? [id number] [employer]. All rights reserved. This information is not intended as a substitute for professional medical care. Always follow your healthcare professional's instructions. * Rosaura OnFHIR - Leigh Rg RN - 01/22/2025 4:21 PM EDT Images from the original note were not included. [id number] Discharge Instructions: Changing the Dressing on Your Peripherally Inserted Central Catheter (PICC) You are going home with a peripherally inserted central catheter (PICC). This small, soft tube has been placed in a vein in your arm. Where the catheter enters your body, it?s covered with a bandage (dressing). The bandage is often made of clear (transparent) plastic. This helps keep the area free of germs. To prevent infection, you need to keep the dressing clean and dry. Only change the dressing if you or a caregiver have been told to do so. This sheet explains the process. Also follow any specific directions you get from your health care provider. Prevent infection with good hand hygiene A PICC can let germs into your body. This can lead to serious and sometimes deadly infections. To prevent infection, it?s very important that you, your caregivers, and others around you use good handhygiene. This means washing your hands well with soap and clean, running water, and using an alcohol-based hand gel as directed. Never touch the PICC or dressing without first using one of these methods. To wash your hands with soap and water: ? Wet your hands with clean, running water. (Don't use hot water. It can cause skin irritation whenyou wash your hands often.) ? Apply enough soap to cover the whole surface of your hands, including your fingers. ? Rub your hands together vigorously for at least 20 seconds. Make sure to rub the front and back of each hand up to the wrist, your fingers and fingernails, between the fingers, and each thumb. ? Rinse your hands with clean, running water. ? Dry your hands completely with a new, unused paper towel. Don?t use a cloth towel or other reusable towel. These can harbor germs. ? Use the paper towel to turn off the faucet, then throw it away. If you?re in a bathroom, also usea paper towel to open the door instead of touching the handle. When you don?t have access to soap and water: Use an alcohol-based hand gel to clean your hands. The gel should have at least 60% alcohol. Follow the directions on the package. Your care team can answer any questions you have about when to use hand gel, or when it?s better to wash with soap and water. When to change the dressing ? If you have a clear dressing, change it every 7 days (or more often if directed). ? If you have a gauze dressing, change it every 2 days. This includes gauze under a clear (transparent) dressing. ? If the dressing becomes loose, dirty, or wet, change it right away. Report this to your health care provider as soon as possible. Dressings will need to be changed more often if you have been sweating, as with a fever. Preventing infection while changing the dressing The PICC provides a direct path into your bloodstream. The chance of infection is high as you change the dressing. Don?t touch the catheter where it enters the skin. And be very careful to keep your work area and supplies clean. Following the steps on this sheet will help. Keep in mind that some supplies come in germ- free (sterile) packaging. Make sure to keep these sterile during the dressing change. Supplies for changing the dressing A general list of supplies is below. Your care team will provide you with a list of specific items and brands to use. Or you may get a kit that has everything you need. Your supplies may include: ? Gauze dressing. ? Transparent dressing. ? Antimicrobial sponge disk. ? Antiseptic supplies to clean the skin and around the catheter exit site (such as chlorhexidine plus alcohol). ? Sterile gloves. ? Nonsterile gloves and a mask. ? Medical tape, adhesive strips, or a securement device. Before you start, review the steps below and make sure you understand them. If you?re not sure whatto do or how to use your supplies, ask a member of your care team before you try to change the dressing. Note: Since the PICC is in your arm, you?ll only have one free arm during the dressing change. Thismakes it very hard to change the dressing yourself. Have someone available to help you. Step 1. Wash your hands Wash your hands well with soap and water. Use the method described above. Step 2. Prepare your work area ? Choose an area with a hard, flat surface where you can easily spread out the supplies, such as a desk or table. Don?t use the bathroom; there are too many germs. ? Put pets and children out of the work area. Keep them out until the dressing change is done. ? Clean washable surfaces with soap and water. Dry with a clean, unused paper towel. Then throw thepaper towel away. ? Spread clean, unused paper towels over your work surface. Use as many as you need to cover it. ? If you need to cough or sneeze, move away from your work surface first. Step 3. Lay out your supplies ? Clean your hands with soap and water or hand gel. Do this before you lay out your supplies on thework surface. ? After cleaning your hands, only touch your supplies. If you do touch anything else, such as furniture or your clothes, wash your hands again. This is very important for preventing infection. ? Place your supplies on the cleaned and dried work surface. Lay them out in the order you will be using them. ? If you?re using a kit with a sterile tray, take off the plastic covering. Remove the covering only. Don?t open the tray. Keep the plastic covering. You can use it to dispose of the old dressing. Step 4. Remove the old dressing ? Put on clean gloves and a mask. Anyone who is helping you change the dressing should do this, too. (Don?t use sterile gloves for this step. Sterile gloves are used in Step 5.) ? Take off the old dressing by gently pulling the edges. Carefully peel off the dressing in the direction of the catheter site. While doing this, hold the end of the catheter (lumen) so it doesn?t pull out of your body. ? If a securement device is in place, carefully remove it using the method your nurse showed you. ? Check the catheter site for signs of infection, such as redness, swelling, drainage, or a bad odor. If you notice any, contact your care team when you?re finished changing the dressing. ? Wrap the old dressing in plastic (if available) and put it aside. Step 5. Prepare sterile supplies ? Remove your gloves and clean your hands with hand gel. You should still be wearing the mask. ? Open any sterile supplies, such as the transparent dressing and sterile gloves. Follow the directions on the package or your care team?s directions. ? Put on sterile gloves. Follow the directions on the package or as you were shown in the hospital. Step 6. Clean the catheter site ? If the skin under the dressing has dried blood or a lot of drainage, clean it as directed by yourcare team. ? Clean the catheter exit site using the antiseptic supplies your care team recommends. It?s very important to follow the package directions and your provider?s directions exactly. Step 7. Apply the new dressing ? If you?re using a securement device, apply it as you were shown. This may be skipped if you have stitches holding the PICC in place. (Be sure to report any loose stitches to your provider.) ? If you?re using a gauze dressing, apply it over the catheter exit site the way your nurse showed you. ? If you?re using an antimicrobial sponge disk, place it around the catheter with the correct side touching your skin. Line up the slit on the sponge disk with the catheter. ? Apply the transparent dressing over the catheter exit site and over the gauze or sponge disk (if used). Put the top end down first. Then smooth out the rest across the area where the catheter exitsyour skin. Make sure the dressing covers the entire catheter. ? Take off and discard the sterile gloves and mask. ? Tape the end of the catheter (lumen) to your skin, as directed by your provider. ? Throw away the old dressing and used supplies. ? Wash your hands. Changing the injection caps The catheter?s injection caps need to be changed every 3 to 7 days. This is often done at the same time as the dressing change. Your health care provider will give you directions. Risk of blood clot If a blood clot forms, it can block blood flow through the vein where the catheter was placed. Signs of a blood clot include pain or swelling in your neck, face, chest, or arm. If you have any of these symptoms, contact your health care provider right away. You may need an ultrasound exam to locatethe blood clot and be treated with a blood thinner. When to get medical care Contact your health care provider right away if any of the following occur: ? Pain or swelling in your shoulder, chest, back, arm, or leg ? Fever of 100.4?? F ( 38.0??C ) or higher ? Chills ? Signs of infection at the catheter site (pain, redness, drainage, burning, or stinging) ? Coughing, wheezing, or shortness of breath ? A racing or irregular heartbeat ? Muscle stiffness or trouble moving ? Gurgling noises coming from the catheter ? The catheter falls out, breaks, cracks, leaks, or has other damage Last Reviewed Date: 2024 00:00:00 ?? [id number] [employer]. All rights reserved. This information is not intended as a substitute for professional medical care. Always follow your healthcare professional's instructions. * Leigh Muller RN - 01/22/2025 4:20 PM EDT Images from the original note were not included. Hydrocodone and Acetaminophen - Video Understand how Hydrocodone and Acetaminophen work to help you manage pain. Also, understand the possible side effects to be aware of and how to properly use and store these medications. To view the video go to this web address: [email or web address] Or, scan this QR code with your smart phone ?? [facility] [facility] * Leigh Muller RN - 01/22/2025 4:20 PM EDT Images from the original note were not included. [id number] Understanding Post Sepsis Syndrome (PSS) Sepsis is a serious illness caused by the body?s extreme immune response to an infection. Bacteria are the most common cause of an infection that leads to sepsis. The most common infections are pneumonia, abdominal infections, and urinary tract infections. Sepsis can lead to organ failure. When this happens, it needs to be treated in the intensive care unit (ICU) at a hospital. In the worst case,sepsis can be life-threatening. If a person survives sepsis, there can be long-term effects, both physical and psychological, such as fatigue, decreased mental functioning, sleep problems, chronic pain, and even posttraumatic stress disorder (PTSD). This is called post sepsis syndrome (PSS). How post sepsis syndrome happens Anyone can get sepsis, but infants, children, and the elderly are at greater risk. Up to half of people who survive sepsis go on to get PSS. The reason why some people get PSS and others don't isn't well understood. The risk of developing PSS is higher for those admitted to an ICU unit or those who have been in a hospital for extended periods of time. There is no specific lab test to diagnose PSS. But your provider may diagnose PSS based on your symptoms and condition. Symptoms of post sepsis syndrome The symptoms of PSS may include: ? Extreme tiredness ? Chronic pain and weakness ? Hair loss and skin rashes ? Sleep problems such as insomnia and nightmares ? Trouble concentrating ? Trouble swallowing ? Vision changes ? Decreased mental functioning ? Memory loss ? Loss of self-esteem ? Depression and anxiety ? Posttraumatic stress disorder (PTSD) Treatment for post sepsis syndrome After you have had sepsis, your rehabilitation usually starts in the hospital before you are sent home. Your healthcare team will help you move and take care of yourself, from standing and walking togetting to the bathroom. When recognized, your treatment may include physical therapy and rehabilitation along with counseling and mental health support. The purpose of rehabilitation is to restore your previous level of health or get you back as close to it as possible. When to call your healthcare provider after your discharge If you?ve had sepsis, talk with your healthcare provider if you?re having symptoms that may suggestPSS, like ongoing fatigue and weakness, memory loss, or trouble concentrating. Be aware of the symptoms of sepsis. Call your healthcare provider right away if you have any of these: ? Fever of 100.4??F (38??C) or higher, or as directed ? Pain that gets worse ? Symptoms that don?t get better, or get worse ? New symptoms ? Recurrent infections Last Reviewed Date: 2022 00:00:00 ?? [id number] [employer]. All rights reserved. This information is not intended as a substitute for professional medical care. Always follow your healthcare professional's instructions. * Rosaura OnIR - Leigh Rg RN - 01/22/2025 4:20 PM EDT Images from the original note were not included. [id number] Buckle (Torus) Fracture of a Leg Your child has a break (fracture) of a bone in the leg. A buckle fracture is a very common fracturein children. Because of a child?s softer bones, one side of the bone bam or bends without any break on the other side. It's also called an incomplete fracture for this reason. More severe fractures may need surgery if they are unstable or the bones don't line up the way they should. These fractures heal faster than complete fractures. But a splint, cast, or boot will still be needed for at least 3 weeks. Home care Follow these guidelines when caring for your child at home: ? Your child will be given a splint, cast, or special boot to keep them from moving the leg. Your child should not put weight on a splint, or it will break. Follow the doctor's advice on when your child can start bearing weight on a cast or boot. ? Keep your child's leg elevated when they are sitting or lying down. This is very important duringthe first 2 days (48 hours) after the injury. ? Keep the splint, cast, or boot completely dry at all times. When your child bathes, protect the splint, cast, or boot with 2 large plastic bags, taped or rubber-banded at the top end. If a fiberglass cast or splint gets wet, you can dry it with a dehairer on the cool setting. ? Put an ice pack on the injured area. Do this for 20 minutes every 1 to 2 hours the first day for pain relief. You can make an ice pack by wrapping a plastic bag of ice cubes in a thin towel. As theice melts, be careful that the splint or cast doesn?t get wet. You can place the ice pack directly over the splint or cast. Continue using the ice pack 3 to 4 times a day for the next 2 days. Then use the ice pack as needed to ease pain and swelling. ? Your child may use acetaminophen or ibuprofen to control pain, unless another pain medicine was prescribed. If your child has chronic liver or kidney disease, talk with the doctor before giving these medicines to your child. Also talk with the doctor if your child has had a stomach ulcer or gastrointestinal bleeding. Don?t give ibuprofen to children younger than 6 months of age. ? Don?t put creams, lotions, or objects under the cast. If itching continues, contact your doctor. Follow-up care Follow up with your child?s doctor as advised. This is to make sure the bone is healing the way it should. If your child was given a splint, it may be changed to a cast after the swelling goes down. If X-rays were taken, a radiologist may look at them. You will be told of any new findings that mayaffect your child's care. When to get medical advice Contact your child?s doctor right away if: ? The cast or splint cracks. ? The plaster cast or splint becomes wet or soft. ? The fiberglass cast or splint stays wet for more than 24 hours. ? Tightness or pain under the cast or splint gets worse. ? Toes become swollen, cold, blue, numb, or tingly. ? Your child can?t move the toes on the injured leg. ? The skin around the cast becomes red, swollen, or irritated. ? Your child has a fever (see Fever and children, below) or chills. Fever and children Use a digital thermometer to check your child?s temperature. Don?t use a mercury thermometer. Thereare different kinds and uses of digital thermometers. They include: ? Rectal. For children younger than 3 years, a rectal temperature is the most accurate. ? Forehead (temporal). This works for children age 3 months and older. If a child under 3 months old has signs of illness, this can be used for a first pass. The doctor may want to confirm with a rectal temperature. ? Ear (tympanic). Ear temperatures are accurate after 6 months of age, but not before. ? Armpit (axillary). This is the least reliable but may be used for a first pass to check a child of any age with signs of illness. The doctor may want to confirm with a rectal temperature. ? Mouth (oral). Don?t use a thermometer in your child?s mouth until they are at least 4 years old. Use a rectal thermometer with care. Follow the product maker?s directions for correct use. Insert it gently. Label it and make sure it?s not used in the mouth. It may pass on germs from the stool. Ifyou don?t feel okay using a rectal thermometer, ask the doctor what type to use instead. When you talk with any health care provider about your child?s fever, tell them which type you used. Below is when to contact the doctor if your child has a fever. Your child?s doctor may give you different numbers. Follow their instructions. When to contact a doctor about your child?s fever For a baby under 3 months old: ? First, ask your child?s doctor how you should take the temperature. ? Rectal or forehead: 100.4??F (38??C) or higher ? Armpit: 99??F (37.2??C) or higher ? A fever of as advised by the doctor For a child age 3 months to 36 months (3 years): ? Rectal or forehead: 102??F (38.9??C) or higher ? Ear (only for use over age 6 months): 102??F (38.9??C) or higher ? A fever of as advised by the doctor In these cases: ? Armpit temperature of 103??F (39.4??C) or higher in a child of any age ? Temperature of 104??F (40??C) or higher in a child of any age ? A fever of as advised by the doctor Last Reviewed Date: 2024 00:00:00 ?? [id number] [employer]. All rights reserved. This information is not intended as a substitute for professional medical care. Always follow your healthcare professional's instructions. * [facility] - Leigh gR RN - 01/22/2025 4:20 PM EDT Images from the original note were not included. [address] Discharge Instructions for Cellulitis You have been diagnosed with cellulitis. This is a bacterial infection in the deepest layers of theskin. The bacteria can enter the body through broken skin. This can happen with a cut, scratch, animal bite, or an insect bite that has been scratched. You may have been treated in the hospital with antibiotics and fluids. You will likely be given a prescription for antibiotics to take at home. Youcan follow a few tips to care for yourself at home. Home care When you are home: ? Take the prescribed antibiotic medicine you are given as directed until it is gone. Take it even if you feel better. It treats the infection and stops it from returning. Not taking all the medicinemay cause the infection to not completely clear or make future infections harder to treat. ? Keep the infected area clean. Follow all wound care instructions from your health care provider. ? When possible, raise the infected area above the level of your heart. This helps keep swelling down. ? Grant the boundary of the infected area so you can tell if it is growing. ? Talk with your provider if you are in pain. Ask what kind of jnng-ttt-[id number] medicine you can take for pain. ? Apply clean bandages as advised. Throw away dirty bandages in a plastic bag that is tied at the top. ? Wash your hands often to prevent spreading the infection. Always wash your hands before and aftercleaning the area. If anyone helps you with your care, have them do the same. ? Take your temperature once a day for a week. In the future, wash your hands before and after you touch cuts, scratches, or bandages. This will help prevent infection. When to call your health care provider Contact your health care provider or seek medical care right away if you have: ? An infection that does not get better within 1 to 2 days after treatment starts. ? Trouble or pain when moving the joints above or below the infected area. ? Discharge or pus draining from the area. ? A fever of 100.4??F (38??C) or higher, or as directed by your provider. ? Pain that gets worse in or around the infected area. ? Redness that gets worse in or around the infected area, especially if the area of redness expandsto a wider area. ? Shaking chills. ? Swelling of the infected area. ? Vomiting. Last Reviewed Date: 2024 00:00:00 ?? [id number] [employer]. All rights reserved. This information is not intended as a substitute for professional medical care. Always follow your healthcare professional's instructions. * Discharge Summary - Mauricio Mondragon MD - 01/22/2025 4:16 PM EDT Hospitalization Admit Date/Time: 01/15/2025 9:32 PM Admitting Attending: Sachin Garza Discharge Date: 01/22/25 Discharge Attending Physician: Sachin Garza MD PCP name and Address: Renetta Pardo, [address] [place] / [facility] [address] Referring provider name and address: Maldonado Luciano PA [address] [place] [address] Chief Concern, Brief History of Present Illness, and Hospital Course Patient arrived to [facility] on 01[facility]15[facility]25 with concern for surgical site infection at the L knee following ORIF of tibial plateau. Patient tolerated the procedure without complication, was extubated in the operating room, and transferred to the PACU for recovery from anesthesia. Throughout hishospital stay patient was evaluated by infectious disease and outpatient antibiotic plan of daptomycin determined. He completed OPAT evaluation and will follow up outpatient for labs. Tolerating dietwell, voiding spontaneously, having regular BM on day of discharge. He will continue home course oflovenox for DVT ppx. Surgeries and Procedures Procedures performed in this encounter Procedures Case Request Operating Room: INCISION AND DRAINAGE, LOWER EXTREMITY Case Request Operating Room: INCISION AND DRAINAGE, LOWER EXTREMITY INCISION AND DRAINAGE, LOWER EXTREMITY (Left) Medication List .. acetaminophen 500 MG tablet Commonly known as: Tylenol Take 2 tablets by mouth every 6 hours as needed for pain. DAPTOmycin injection Commonly known as: Cubicin Infuse 22 mL into a venous catheter 1 (one) time each day at the same time over 3 minutes. Inpatient/ specific directions only. Mix and deliver per institution/facility policy. enoxaparin 60 MG/0.6ML solution prefilled syringe Commonly [...] mouth 1 (one) time each day. naloxone 4 mg/0.1 mL nasal spray Commonly known as: Narcan 1. Give 1 spray in nostril for no/slow breathing or cannot wake after opioid use 2. Call 911 3. Repeat in other nostril if symptoms continue oxyCODONE 5 MG immediate release capsule Commonly known as: Oxy-IR Take 1 capsule by mouth every 6 hours as needed for severe pain. senna-docusate 8.6-50 MG tablet Commonly known as: Janeth-Colace Take 1 tablet by mouth 2 times a day. Where to Get Your Medications These medications were sent to [facility] -[place], [place] - [address], [facility] [id number] DAPTOmycin injection These medications were sent to [facility] - [place], [place] - [address] [facility] [address] oxyCODONE 5 MG immediate release capsule Discharge Diagnosis Medical Problems Active and Resolved Hospital Problems Hospital Closed fracture of left tibial plateau Overview Addendum 09/16/2023 1:42 PM by Rolanda Adams APRN, KALYANI ORT consulted TROM in place WB per ORT 09/15: ORIF L tibial plateau fx Follow up with Dr. Nava on 10/04 * (Principal) Cellulitis of leg, left Sepsis following procedure ([facility]) Cellulitis of left lower extremity Post Discharge Instructions Post-Operative Discharge Instructions: Medications: - You should take 650mg Tylenol every 6 hours as needed for mild - moderate pain. - You have been prescribed pain medications to be taken as needed for severe pain. - You should take the stool softener prescribed as long as you are taking narcotics. - You may resume your previous medications unless otherwise instructed. Nutrition: - You may resume your normal diet as tolerated, focusing on liquids to keep yourself hydrated. Dressing: - May continue current weight bearing restrictions - Prevena in place will stay in place and be changed on 01/27 in orthopaedic trauma clinic Potential Issues: - It is normal to have some pain and soreness, especially around the incisions - A small amount of clear drainage from the incision may be expected, call the office if the drainage becomes bloody, purulent (pus), our foul-smelling - Call the office if you start to have increased redness, drainage, swelling, or increased pain around your incision - Call the office if you have a fever greater than 101 F - Call the office if you have severe abdominal discomfort, nausea and vomiting, or feeling unwell Follow Up: - You will follow up in orthopaedic trauma clinic on 02/03 - Call the office with any questions or concerns Outpatient Follow-Up Future Appointments Date Time Provider Department Center 01/27/2025 11:00 AM 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 [employer] [facility] 02/03/2025 8:10 AM Lawrence Hayes MD [facility] 02/11/2025 1:00 PM Ary Santiago APRN [facility] [place] 03/03/2025 1:00 PM Ary Santiago APRN [facility] [place] Test Results Pending At Discharge Pending Labs Order Current Status Bacteria, Broad range PCR (SO) Collected (01/18/25 1217) Anaerobic Culture In process Anaerobic Culture In process Anaerobic Culture In process Fungal Culture, Routine In process AFB Culture, Non Respiratory Source and Acid Fast Stain Preliminary result AFB Culture, Non Respiratory Source and Acid Fast Stain Preliminary result AFB Culture, Non Respiratory Source and Acid Fast Stain Preliminary result AFB Culture, Non Respiratory Source and Acid Fast Stain Preliminary result AFB Culture, Non Respiratory Source and Acid Fast Stain Preliminary result Abscess Culture and Gram Stain Preliminary result Anaerobic Culture Preliminary result Anaerobic Culture Preliminary result Anaerobic Culture Preliminary result Fungal Culture, Sterile Body Fluid (NOT CSF) and SYEDA Preliminary result Fungal Culture, Sterile Body Fluid (NOT CSF) and SYEDA Preliminary result Fungal Culture, Tissue and SYEDA Preliminary result Fungal Culture, Tissue and SYEDA Preliminary result Fungal Culture, Tissue and SYEDA Preliminary result Tissue Culture and Gram Stain Preliminary result Tissue Culture and Gram Stain Preliminary result Pertinent Physical Exam At Time of Discharge Physical Exam Physical Examination: No acute distress Non labored breathing Peripheral perfusion intact Focused Musculoskeletal Examination: LLE Compressive tim wrap in place, instillation WV in place, drain in place with sanguineous drainage Motor intact tib ant, gastroc, EHL/FHL SILT SP, DP, tibial, sural, saph Palpable DP pulse Discharge Disposition/Condition Disposition: Home Condition: Stable (s/sx potential problems absent or manageable) I spent >30 minutes of patient care and instruction time in preparation for this discharge. Cosigned by Lawrence Hayes MD at 01/23/2025 9:34 AM EDT * Nursing Note - Camden Vital, RN - 01/22/2025 12:00 PM EDT Orthopedic Transition Nurse Note General: Spoke with: Patient, Family, and Bedside manufacturing sr engineer and Interventions: Assessed: Dressing Dressing Interventions: CDI and Prevena dressing in place. Negative Pressure Wound Therapy Leg Anterior;Left;Lower;Proximal (Active) Dressing Type Black foam 01/21/25 0800 Dressing Status Clean;Dry;Intact 01/21/25 0800 Cycle On 01/21/25 08 Output (mL) 0 mL 01/20/25 1600 Wound 01/01/25 Surgical Open Surgical Incision Pretibial Left;Proximal (Active) Wound Assessment Unable to assess 01/21/25 08 Margins Unable to assess 01/20/25 1130 Janeth-Wound Assessment Unable to assess 01/21/25 08 Closure Unable to assess 01/21/25 08 Drainage Amount None 01/18/25 1110 Dressing Other (Comment);Vacuum dressing 01/20/25 1059 Dressing Status Clean;Dry;Intact 01/21/25 0800 Wound 01/01/25 Face Left;Upper (Active) Wound Assessment Clean;Dry 01/21/25 0800 Dressing Status Open to air 01/21/25 0800 Education: Education provided on: Dressing, Signs and symptoms of infection, Weight bearing mobility, Pain protocol/management, and Drain Plan of Care: Follow up with Dr. Hayes on 02/03/2025 at 0810. Op-Plan: Completed Contact Card Given: yes Comments: LLE drain removed. ID recs final. Patient to discharge home today after IV abx are delivered. Patient to come back to clinic on 01/27/2025 for Prevena dressing removal. LLE: Prevena in place. TIM wrap should be removed 72 hours following surgery, and then re-applied daily for swelling as needed taking care not to remove the sterile OR dressing underneath. For medical questions or concerns after discharge, please contact the Orthopedic Transition Nurse at [phone] Monday through Monday 8:00 am to 2:30 pm. If you feel your concern is a medical emergency please call 911 immediately * Progress Notes - Anna Elam RN - 01/22/2025 9:28 AM EDT Case Management Discharge Note Ravin Ribeiro 34 y.o. male CSN: [id number] Admission: 01/15/2025 9:32 PM Primary Problem: Cellulitis of leg, left Primary Lead Ruby On Rails Developer: Primary Caregiver: Self Assistance Available at Discharge: Current Outpatient/Agency/Support Group: DME Availability of Care Givers (#Hours): 24 hours Family/Lead Ruby On Rails Developer(s) Willingness Assessed to care for patient at home: Yes Family/Lead Ruby On Rails Developer(s) Readiness Assessed to care for patient at home: Yes Housing Circumstances-Z Codes: Housing Circumstances (select all that apply): Low Income (101-300% Federal Poverty Guidlines) - Z596 Patient Referred to Financial or Community Resources: Financial Resources: Other (Comment) (N/A) Community Resources: Other (Comment) (N/A) Discharge Facility/Level of Care Needs: Discharge Facility/Level of Care Needs: 1-Home or Self Care Patient's Choice of Community Agency(s): Patient's Choice of Community Agency(s): [facility] Patient/Family Anticipated Services at Transition: Patient/Family Anticipated Services at Transition: outpatient care DME/Equipment Needed after Discharge: Equipment Currently Used at Home: walker, rolling, commode chair, wheelchair, manual Equipment Needed After Discharge: walker, rolling, commode chair Readmission Within the Last 30 Days: Readmission Within the Last 30 Days: other (see comments) (cellulitis) Medicare Documentation: Medicare Second Notice?: No (pt has read medicaid) Follow-up: No follow-up provider specified. Discharge Transportation: Transportation Anticipated: family or friend will provide Transportation Home at Discharge: Family/Friend will Provide Has discharge transport been arranged?: No Follow Up Transport: Transportation Needed to Follow up Appoinments: Family/Friend will Provide Additional Comments: Per primary provider, pt is medically ready to discharge home with standard OPAT. PICC in place. Pt [facility] at [facility] for weekly PICC care and labs. First appointment is scheduled for 01/27 at 11 AM. Pt's family will be able to provide assistance and transportation. [facility] will complete teaching today and deliver IV ABX to bedside around 3 PM. Pt and S/O is aware and agreeable to discharge POC. Renzo [facility] [phone] Anna Elam RN * Progress Notes - Ayden Canseco MD - 01/22/2025 3:58 AM EDT Orthopaedic Trauma Surgery Progress Note 01/22/25 Subjective: No acute events overnight. Doing well. Pain controlled. Tolerating diet. No nausea, vomiting, fevers or chills. Patient has no questions or concerns. Objective: Vitals: 01/22/25 0342 BP: 125/87 Pulse: 76 Resp: 16 Temp: 36.4 ??C (97.5 ??F) SpO2: 97% Physical Examination: No acute distress Non labored breathing Peripheral perfusion intact Focused Musculoskeletal Examination: LLE Compressive tim wrap in place, instillation WV in place, drain in place with sanguineous drainage Motor intact tib ant, gastroc, EHL/FHL SILT SP, DP, tibial, sural, saph Palpable DP pulse Data: Labs in last 18 hours: CBC WBC 10.10 Hb 11.5 (L) Plt 446 (H) Hct 35.2 (L) INR ??, PTT ??, Anti-Xa ?? BMP Na 139 Cl 101 BUN 31 (H) Glu 122 (H) K 4.6 Co2 26 Cr 1.64 (H) Lactate ?? Assessment & Plan: Ravin Ribeiro is a 34 y.o. male patient with the following orthopedic injuries: L knee SSI s/p ORIF tibial plateau fx (01/01) s/p I&D (01/18, 01/20) Edited by: Emely Giron MD at 01/21/2025 0532 - DVT prophylaxis - Pain control - Nutritional optimization - Bowel regimen - PT/OT recommendations: HWA - Follow up: 02/03 - Disposition: Ongoing NORMAN, will continue to follow with daily BMPs. IV antibiotics per Infectious disease. OR Cx NGTD. Discharge pending ID plan for OPAT. Drain in place with no output recorded, possible removal today. Mobility Orders Mobility Protocol: Ortho/Trauma/Spine Mobility Guidelines Spinal Precautions: No cranial, cervical or thoracolumbar spinal precautions necessary Extremity Precautions: Extremity Precautions Extremity: LLE Mobility Restrictions (LLE): Weight bear as tolerated (WBAT) Type of Brace (LLE): None Other mobility precautions: No other precautions required Ayden Canseco MD PGY-1, Orthopaedic Surgery [facility] Orthopaedic Trauma Service Pager: [phone] Orthopaedic Recon/Spine/Foot and Ankle Service Pager: [phone] Cosigned by Lawrence Hayes MD at 01/22/2025 1:06 PM EDT * Progress Notes - Mauricio Mondragon MD - 01/21/2025 8:10 PM EDT Orthopaedic Trauma Surgery Progress Note 01/21/25 Subjective: No acute events overnight. He reports his pain as 2/10. Continues to tolerate regular diet well, having regular bowel movements and voiding spontaneously. Discussed plan to continue waiting final recommendations per Infectious Disease team and his evaluation with the outpatient antibiotic therapy team. Objective: Vitals: 01/21/25 1916 BP: 135/86 Pulse: 83 Resp: Temp: 36.7 ??C (98 ??F) SpO2: 100% Physical Examination: No acute distress Non labored breathing Peripheral perfusion intact Focused Musculoskeletal Examination: LLE Compressive tim wrap in place, instillation WV in place Motor intact tib ant, gastroc, EHL/FHL SILT SP, DP, tibial, sural, saph Palpable DP pulse Data: Labs in last 18 hours: CBC WBC 10.10 Hb 11.5 (L) Plt 446 (H) Hct 35.2 (L) INR ??, PTT ??, Anti-Xa ?? BMP Na 139 Cl 101 BUN 31 (H) Glu 122 (H) K 4.6 Co2 26 Cr 1.64 (H) Lactate ?? Assessment & Plan: Ravin Ribeiro is a 34 y.o. male patient with the following orthopedic injuries: L knee SSI s/p ORIF tibial plateau fx (01/01) s/p I&D (01/18, 01/20) Edited by: Emely Giron MD at 01/21/2025 0532 - DVT prophylaxis - Pain control - Nutritional optimization - Bowel regimen - PT/OT recommendations: HWA - ongoing acute kidney injury without prior renal disease, dosing of vancomycin and Zosyn decreasedyesterday, we will continue to follow with daily BMP - Disposition: Discharge pending Infectious Disease plan for outpatient antibiotic therapy Mobility Orders Mobility Protocol: Ortho/Trauma/Spine Mobility Guidelines Spinal Precautions: No cranial, cervical or thoracolumbar spinal precautions necessary Extremity Precautions: Extremity Precautions Extremity: LLE Mobility Restrictions (LLE): Weight bear as tolerated (WBAT) Type of Brace (LLE): None Other mobility precautions: No other precautions required Red Mondragon MD Orthopaedic Surgery PGY-1 [facility] Orthopaedic Trauma Service Pager: [phone] Orthopaedic Recon/Spine/Foot and Ankle Service Pager: [phone] Personal Pager: [phone] Cosigned by Lawrence Hayes MD at 01/22/2025 1:06 PM EDT * Procedures - Norma Miranda RN - 01/21/2025 7:01 PM EDTAssociated Order(s): Insert PICC line Insert PICC line Date/Time: 01/21/2025 7:01 PM Performed by: Norma Miranda RN Authorized by: Sachin Garza MD [place] Protocol: Verbal consent obtained?: Yes Written consent obtained?: Yes Risks and benefits: Risks, benefits and alternatives were discussed Consent given by: Patient Patient states understanding of procedure being performed: Yes Patient's understanding of procedure matches consent: Yes Procedure consent matches procedure scheduled: Yes Relevant documents present and verified: Yes Test results available and properly labeled: Yes Site marked: Yes Imaging studies available: Yes Patient identity confirmed: Verbally with patient and arm band Time out: Immediately prior to the procedure a time out was called Indications: Vascular access (Daptomycin 01/20/25 - 03/03/25) Local anesthetic: Lidocaine 1% without epinephrine (2.5mL) Sedation: Patient sedated: No Preparation: Skin prepped with 2% chlorhexidine Skin prep agent dried: Skin prep agent completely dried prior to procedure Sterile barriers: All five maximal sterile barriers used - gloves, gown, cap, mask and large sterile sheet Hand hygiene: Hand hygiene performed prior to catheter insertion Orientation: Left Location (Adult): Basilic vein Site selection rationale: Patient preference Patient position: Supine Catheter Lot #: [id number] Catheter hospice nurse practitioner: Neohapsis PowerPICC Solo Catheter placed: Single lumen Catheter size: 4 Fr Catheter trimmed length: 52 Catheter threaded length: 52 Vein placed in: SVC Catheter cm indwellin Catheter cm outside: 52 Placement confirmed by: Tram 3CG technology Pre-procedure: Landmarks identified Ultrasound guidance: Yes Sterile ultrasound techniques: Sterile gel and sterile probe covers were used Number of attempts: 1 Post-procedure: Adhesive securement device and sterile access caps placed on each lumen Dressing applied: CHG tegaderm Assessment: Blood return through all ports Complications: None. Patient tolerated the procedure well with no immediate complications.: Yes PICC kit educational material was given to the patient.: Yes Comments: Pertinent ultrasound and/or 3CG images sent to PACS. * Query Clarification Note - Bob Nava MD - 01/21/2025 5:34 PM EDT Physician Clarification The diagnosis of sepsis was documented once by the ED Provider without further mention by the primary service. After review, please clarify the infectious status: []Sepsis due to left medial tibial plateau deep surgical site infection [x]Deep surgical site infection only []Other explanation (please specify) This documentation will become part of the patient's medical record. * Query Clarification Note - Bob Nava MD - 01/21/2025 5:34 PM EDT Physician Clarification Please provide an associated diagnosis related to the abnormal BMI: [x]Severe or Morbid Obesity []BMI is not significant []Other explanation (please specify) This documentation will become part of the patient's medical record. * Progress Notes - Kina Gillis, RN - 01/21/2025 3:28 PM EDT Referrals sent to [facility] and for for possible home IV antibiotic infusion. There was no accepting companies in patient's area. CM spoke with patient and he is agreeable to either go to his local hospital [facility] or come to [facility] in [place] for his weekly PICC care/labs if needed. * Nursing Note - Camden Vital, RN - 01/21/2025 1:45 PM EDT Orthopedic Transition Nurse Note General: Spoke with: Patient, Family, and Bedside manufacturing sr engineer and Interventions: Assessed: Dressing Dressing Interventions: CDI and Prevena dressing in place. Negative Pressure Wound Therapy Leg Anterior;Left;Lower;Proximal (Active) Dressing Type Black foam 01/21/25 0800 Dressing Status Clean;Dry;Intact 01/21/25 0800 Cycle On 01/21/25 0800 Output (mL) 0 mL 01/20/25 1600 Wound 01/01/25 Surgical Open Surgical Incision Pretibial Left;Proximal (Active) Wound Assessment Unable to assess 01/21/25 0800 Margins Unable to assess 01/20/25 1130 Janeth-Wound Assessment Unable to assess 01/21/25 08 Closure Unable to assess 01/21/25 08 Drainage Amount None 01/18/25 1110 Dressing Other (Comment);Vacuum dressing 01/20/25 1059 Dressing Status Clean;Dry;Intact 01/21/25 08 Wound 01/01/25 Face Left;Upper (Active) Wound Assessment Clean;Dry 01/21/25 08 Dressing Status Open to air 01/21/25 08 Education: Education provided on: Dressing, Signs and symptoms of infection, Weight bearing mobility, Pain protocol/management, and Drain Plan of Care: Follow up with Dr. Hayes on 02/03/2025 at 0810. Op-Plan: Completed Contact Card Given: yes Comments: Patient in chair. Educated patient on the importance of Paul in promoting wound healing. Orthopedic team recommends post-operative patients take at least 2 packets per day of Paul for 14 days aftersurgery. Informed patient that drain will be removed once output starts to slow. Awaiting final ID recs, and PICC. LLE: Prevena in place. TIM wrap should be removed 72 hours following surgery, and then re-applied daily for swelling as needed taking care not to remove the sterile OR dressing underneath. For medical questions or concerns after discharge, please contact the Orthopedic Transition Nurse at [phone] Monday through Monday 8:00 am to 2:30 pm. If you feel your concern is a medical emergency please call 911 immediately * Steff Odell RN - 01/21/2025 11:57 AM EDT Images from the original note were not included. [id number] PICC Line Care PICC stands for peripherally inserted central catheter. This is a short-term (temporary) tube that's used instead of a regular I.V. (intravenous) line. Reasons for using a PICC line A PICC line may be used because: ? It reduces the discomfort of putting in a new I.V. every time it's needed. ? Medicine or nutrition needs to be given over a period of weeks or even months. ? A PICC can stay in place longer than an I.V., so it reduces needle sticks. ? It reduces damage to small veins, where an I.V. is normally inserted. This can allow some substances that damage small veins to be infused safely and comfortably. ? A PICC may have more than one channel, so different fluids or medicines can be given at the same time. ? A PICC line allows for home therapy. Your PICC will need some care to keep it clean and working. This care includes: ? Changing the bandage (dressing). ? Flushing the catheter with fluids. ? Changing the cap on the end of the catheter. A nurse or other health care provider will teach you how to do each of these things. If you have any questions, contact your care team. Home care The following are general care guidelines that will help you care for your PICC line at home: ? You can use your arm. But stay away from any activity that causes pain. ? Don't pick at it or pull on the tubing. ? Don?t lift anything heavier than 10 pounds with the arm on the side of the PICC line. ? The PICC line and dressing should not get wet. When you bathe or shower, tape plastic wrap over the site to keep it dry. ? Don't put the PICC site under water. No swimming or hot tubs. If the dressing gets wet, change itright away if you've been trained to do so. If not, contact your care team. ? Always wash your hands with soap and clean, running water before and after touching any part of your PICC. ? Don't allow the tubing to hang freely. Make sure to keep the tubing covered and secured to your arm to prevent the PICC line from being pulled out by accident. ? Don?t use any sharp or pointy objects around the catheter. This includes scissors, pins, knives, and razors. The following tips will help you with dressing changes: ? Change the dressing over the site as directed. This is usually once a week. Change it sooner if the dressing gets wet or soiled. Check the dressing daily. ? You or a family member may be able to do the dressing change at home. Or you may be instructed toreturn to the office or clinic for dressing changes. ? Sterile technique must be used for PICC dressing change. If your dressing is changed at home, be sure you or your family member knows the sterile dressing technique. Contact your health care provider for instructions if you need them. Follow-up care Follow up as advised by your health care provider. When to get medical care Contact your health care provider right away if any of these occur: ? Fever of 100.4??F (38??C) or higher, or as advised by your provider ? Drainage from the PICC site ? Swelling or bulging around the PICC site, or anywhere above the insertion site ? Bleeding from the PICC site ? Skin pulling away from the PICC site ? Redness, warmth, or pus at the PICC site ? Tubing breaks, splits, or leaks ? More exposed tubing (tubing seems longer), or the tubing is pulled out completely ? Medicine or fluids don't drain from the bag into your PICC ? Coughing, wheezing, or shortness of breath ? A racing or irregular heartbeat ? Muscle stiffness or trouble moving the arm Last Reviewed Date: 2024 00:00:00 ?? [id number] [employer]. All rights reserved. This information is not intended as a substitute for professional medical care. Always follow your healthcare professional's instructions. * Steff Odell RN - 01/21/2025 11:56 AM EDT Images from the original note were not included. [id number] * Steff Odell RN - 01/21/2025 11:56 AM EDT Images from the original note were not included. [id number] * Steff Odell RN - 01/21/2025 11:56 AM EDT Images from the original note were not included. [id number] Frequently Asked Questions about OPAT - Outpatient Parental Antimicrobial Therapy What is OPAT? Antibiotics are used to treat infections. They are often given either as pill to take by mouth or as a fluid to inject into a vein. Injecting medicines is called IV (intravenous) therapy or parenteral therapy. When IV antibiotic therapy is given at home, it?s called OPAT (Outpatients Parental Antibiotic therapy). To qualify for OPAT, you must: (1) be ready to leave the hospital, and (2) still need antibiotics. The OPAT team will also need to make sure you?ll be safe at home. What types of long-term IV lines are there? Peripherally Inserted Central Catheter (PICC)/Midline Central Venous Catheter (CVC) Port-a-Cath (PORT) After I leave the hospital, who will give me the IV antibiotics and care for my central line? 1. Before you leave the hospital, an OPAT Nurse Navigator will assess you. Then the nurse will teach you or a caregiver how to safely give IV antibiotics and care for the line. 2. You will receive supplies from the infusion company. The company will teach you about the IV antibiotics and delivery system. 3. At least once a week, you will need labs and PICC line care (dressing change). This will be doneby a home health nurse at your house or a medical facility. The correctional counselor/case manager/web content & social media manager will setthat up based on your insurance. Your infectious disease provider will check these labs. 4. The OPAT team may call to review your lab results. It?s important to answer your phone or returnthe phone call within 24 hours. How long will my antibiotic treatment last? This will depend on your infection and your infectious disease provider. Is it important to show up for OPAT clinic follow-up appointments? Yes. It is very important. During your appointment, the infectious disease provider will go over your labs and check for responses to the antibiotics. The provider will make sure the PICC line is safe and the antibiotics are working. What if I have questions or concerns about OPAT treatment? ? Call the OPAT team at (Select Option 3 for IV Antibiotics/PICC Issues) between 8 a.m.-5 p.m. ? After 5 p.m. or during weekends/[place] holidays, call the paging marking machine operator at . Ask for the infectious disease fellow communications agent. Call the clinic if you have any of these: ? Fevers greater than 100.5??F ? An allergic reaction, such as rash ? Nausea, vomiting, or diarrhea ? New or returning redness near the IV line ? Redness, pain, swelling, or pus around the IV line * Rosaura [facility] - Steff Paz, RN - 01/21/2025 11:56 AM EDT Images from the original note were not included. [id number] Flushing Your PICC Line at Home Your peripherally inserted central catheter (PICC) line is used to deliver medicine or feedings. It?s a long, flexible tube (catheter) that goes into your vein, runs into larger veins, and ends up with the tip near where the superior vena cava enters your heart. To care for your PICC line, you willneed to flush it. This means you?ll need to clean it with a solution as directed by your health care provider. This keeps it from getting clogged or blocked. A clogged or blocked PICC line will need to be taken out and replaced. When to flush your PICC line You?ll need to flush your PICC line as often as directed by your health care provider. You may needto flush it after each use. If the PICC line is not in active use, you may need to flush it once a day. Or you may only need to flush it once a week. Talk with your provider about how often you should do this. What you?ll need ? Flushing solution. This is the liquid that you will send through the PICC line. Your health care provider will tell you what kind to use. In most cases, it is saline solution. This is a sterile mixof water and a tiny amount of salt. Your provider will also tell you how much to use. You may also need to flush with a heparin solution after the saline. Heparin is a medicine that thins the blood. It helps prevent blood from clotting in and around the catheter. ? A syringe. This is the device used to give an injection, or shot. A syringe is used to flush yourPICC line with the solution. You will probably use prefilled syringes. ? Alcohol wipes or rubbing alcohol and cotton balls. You?ll use these to clean some of the tools used to flush your line. This helps to prevent germs from going into your PICC line. ? Clean medical gloves. How to flush your PICC line Repeat these steps as often as your health care provider has instructed. Skip steps 2 and 3 if you are using prefilled syringes. Step 1. Wash your hands ? Wash your hands well with soap and clean running water for at least 20 seconds. Scrub them well, including the backs of your hands and between your fingers. ? If you don?t have access to soap and water, use an alcohol-based hand clip riveter. The gel should have at least 60% alcohol. Let the hands dry. ? Put on clean medical gloves. ? Only touch your PICC line with clean hands and when wearing clean gloves. This is to protect you from infection and to keep the line free from germs. Step 2. Fill the syringe ? Open a new bottle of the flushing solution. If you?re using a bottle that?s already open, use thealcohol to clean the top of the bottle. ? Remove the cap from the needle or tip of the syringe. Push the plunger of the syringe down all the way. ? Put the needle or tip of the syringe into the flushing solution. ? Pull the syringe plunger out. Stop when you have the right amount of flushing solution in the syringe. Your health care provider will tell you how much to use. Step 3. Remove air from the syringe ? Hold the syringe with the tip pointing up. ? Flick or tap the syringe with your finger. This will cause any large air bubbles to rise into thetip. ? Slowly push on the plunger until a tiny drop of flushing solution comes out of the needle or tip. ? Put the cap back on the needle or tip of the syringe. This will keep it germ- free until you use it. Step 4. Inject the flushing solution ? Scrub the top and sides of the port (end of the catheter) with an alcohol wipe for 15 seconds. Scrub using a twisting motion as if juicing an orange. Let it dry completely. Prevent it from touchinganything while drying. Don't blow on it. Don't reuse the alcohol wipe. Keep the port from touching anything until you connect the syringe. If you accidentally touch the port, clean it again. ? Open the clamp, if there is one. ? Take the cap off the needle or tip of the syringe. Insert the needle or tip into the port. Make sure you know if your PICC has a needleless connector. Ask your health care provider if you aren't sure. ? Push the plunger in slowly and smoothly. Don?t force the plunger. You shouldn?t feel any pressurewhen you push the fluid into the PICC line. If you do, stop and call your provider right away. Step 5. Finish flushing ? If there is a clamp, close it just before the syringe is empty. This stops blood from flowing back into the catheter. ? Remove the needle or tip of the syringe from the port. ? Put the syringe into a special container ([employer]ways container). When to contact your doctor Contact your health care provider right away if you have: ? A fever of 100.4??F (38??C) or higher, or as directed by your provider. ? Chills during or after flushing your line. ? Swelling, redness, drainage, or pain around the PICC site. ? Bleeding from the PICC site. ? Tubing that leaks or is pulling out. ? A feeling of new resistance when flushing the PICC line, or you can't flush it at all. ? Medicine or fluids that don't drain from the bag into your PICC. Last Reviewed Date: 2024 00:00:00 ?? [id number] [employer]. All rights reserved. This information is not intended as a substitute for professional medical care. Always follow your healthcare professional's instructions. * [facility] - Steff Paz RN - 01/21/2025 11:56 AM EDT Images from the original note were not included. [id number] Daptomycin Injection Brand Name(s): Cubicin??, Cubicin RF??; also available generically ?? This branded product is no longer on the market. Generic alternatives may be available. WHY is this medicine prescribed? Daptomycin injection is used to treat certain blood infections or serious skin infections caused bybacteria in adults and children 1 year of age and older. Daptomycin injection is in a class of medications called cyclic lipopeptide antibiotics. It works by killing bacteria. Antibiotics such as daptomycin injection will not work for treating colds, flu, or other viral infections. Using antibiotics when they are not needed increases your risk of getting an infection laterthat resists antibiotic treatment. HOW should this medicine be used? Daptomycin injection comes as a powder to be added to fluid and injected into a vein by a doctor ornurse. It is usually given once a day. The length of your treatment depends on the type of infection being treated and your response to daptomycin treatment. You may receive daptomycin injection in ahospital or you may administer the medication at home. If you will be using daptomycin injection athome, your healthcare provider will show you how to infuse the medication. Be sure that you understand these directions, and ask your healthcare provider if you have any questions. Ask your healthcare provider what to do if you have any problems infusing daptomycin injection. You should begin to feel better during the first few days of treatment with daptomycin injection. If your symptoms do not improve or if they get worse, call your doctor. Use daptomycin injection until you finish the prescription, even if you feel better. If you stop using daptomycin injection too soon or skip doses, your infection may not be completely treated and the bacteria may become resistant to antibiotics. Are there OTHER USES for this medicine? This medication may be prescribed for other uses; ask your doctor or pharmacist for more information. What SPECIAL PRECAUTIONS should I follow? Before using daptomycin injection, ? tell your doctor and pharmacist if you are allergic to daptomycin, any other medications, or any of the ingredients in daptomycin injection. Ask your pharmacist for a list of the ingredients. ? tell your doctor and pharmacist what other prescription and nonprescription medications, vitamins, nutritional supplements, and herbal products you are taking or plan to take while using daptomycininjection. Your doctor may need to change the doses of your medications or monitor you carefully for side effects. ? tell your doctor if you have or have ever had kidney disease. ? tell your doctor if you are , plan to become , or are . If you become while using daptomycin injection, call your doctor. What SPECIAL DIETARY instructions should I follow? Unless your doctor tells you otherwise, continue your normal diet. What SIDE EFFECTS can this medicine cause? Some side effects can be serious. If you experience any of these symptoms, call your doctor immediately: ? hives ? rash ? itching ? blisters or peeling of skin ? difficulty breathing or swallowing ? swelling of the face, throat, tongue, lips, and eyes ? shortness of breath ? chest pain ? cough ? new or worsening fever, sore throat, chills, increased urge to urinate, burning sensation when urinating, or other signs of infection ? severe diarrhea with watery or bloody stools (up to 2 months after your treatment) ? muscle pain or weakness, especially in the forearms and lower legs ? dark or cola-colored urine ? pain, burning, numbness, or tingling in the hands or feet Daptomycin injection may cause other side effects. Call your doctor if you have any unusual problems while using this medication. If you experience a serious side effect, you or your doctor may send a report to the Food and Drug Administration's (FDA) MedWatch Adverse Event Reporting program online (https://www.fda.gov/Safety/MedWatch) or by phone ( ). What should I do in case of [...] your doctor and the laboratory. Your doctor may order certain lab tests to check your body's response to daptomycin injection. Before having any laboratory test, tell your doctor and the laboratory personnel that you are usingdaptomycin injection. Do not let anyone else use your medication. If you still have symptoms of infection after you finish daptomycin injection, call your doctor. It is important for you to keep a written list of all of the prescription and nonprescription ([id number]) medicines you are taking, as well as [...] or pharmacist about specific clinical use. The [employer] represents that the information provided hereunder was formulated with a reasonable standard of care, and in conformity with professional standards in the field. The [employer] makes no representations or warranties, express or implied, including, but not limited to, any implied warranty of merchantability and/or fitness for a particular purpose, with respect to such information and specifically disclaims all such warranties. Users are advised that decisions regarding drug therapy are complex medical decisions requiring the independent, informed decision of an appropriate health skin care therapist, and the information is provided for informational purposes only. The entire monograph for a drug should be reviewed for a thorough understanding of the drug's actions, uses and side effects. The [employer] does not endorse or recommend the use of any drug.The information is not a substitute for medical care. AHFS?? Patient Medication Information?. ?? Copyright, 2023. [employer]??, [address], [address], [place], [place]. All Rights Reserved. Duplication for commercial use must be authorized by [facility]. Selected Revisions: July 28, 2019. AHFS?? Patient Medication Information?. ?? Copyright, 2024 * [facility] - Steff Paz RN - 01/21/2025 11:56 AM EDT Images from the original note were not included. [id number] Discharge Instructions: Caring for Your Peripherally Inserted Central Catheter (PICC) You are going home with a peripherally inserted central catheter (PICC). This small, soft tube has been placed in a vein in your arm. The tube was passed through a vein that leads to a larger vein near the heart (superior vena cava). A PICC is often used when treatment needs I.V. medicines, fluids,or nutrition for weeks or months. At home, you need to take care of your PICC to keep it working. APICC line has a high infection risk. So take extra care washing your hands and preventing the spread of germs. This sheet will help you remember what to do to care for your PICC at home. Understanding your role A nurse or other health care provider will teach you and your caregivers how to care for the PICC. Before leaving the hospital, make sure you understand what to do at home. Also ask how long you may need the PICC and when to have a follow- up visit. Write down important details about caring for your PICC, including: Follow-up visit date: PICC dressing change due date: Health care provider in charge of PICC care and their phone number: Who to contact with concerns about your PICC line and their phone number: Any other important information: Protecting the PICC If the PICC gets damaged, it won?t work right and could raise your chance of infection. Contact your care team right away if any damage occurs. To protect the PICC at home: ? Prevent infection. Use good hand hygiene by following the guidelines on this sheet. Don?t touch the catheter or dressing unless you need to. Always clean your hands before and after you come in contact with any part of the PICC. Your caregivers, family members, and any visitors should use good hand hygiene, too. ? Keep the PICC dry. The catheter and dressing must stay dry. Don?t take baths, go swimming, use a hot tub, or do other things that could get the PICC wet. Take a sponge bath to prevent getting your catheter wet, unless your health care provider tells you otherwise. Ask your provider about the bestway to keep your catheter dry when bathing or showering. If the dressing does get wet, change it only if you have been shown how. Otherwise, contact your care team right away for help. ? Don't damage the catheter. Don?t use any sharp or pointy objects around the catheter. This includes scissors, pins, knives, razors, or anything else that could cut it or put a hole in it (puncture it). Also, don?t let anything pull or rub on the catheter, such as clothing. Keep pets away from thePICC catheter. ? Watch for signs of problems. Pay attention to how much of the catheter sticks out from your skin.If this changes at all, let your provider know. Also watch for cracks, leaks, or other damage. If the dressing becomes dirty, loose, or wet, change it (if you have been directed to). Or contact your care team right away. ? Tell your care team if you vomit or have severe coughing. Although uncommon, coughing or vomitingmay move your catheter from its place. If a catheter moves, it may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 surgical site infection.Random concentration therapeutic drug monitoring performed due to unstable renal function. Creatinine, Plasma (mg/dL) Date/Time Value 01/18/2025 2354 1.34 (H) Estimated Creatinine Clearance: 119.7 mL/min (A) (by C-G formula based on SCr of 1.34 mg/dL (H)). Vancomycin, Random, Plasma (ug/mL) Date/Time Value 01/19/2025 1148 22.9 Assessment/Plan 1. Patient is Not appropriate for redosing at this time. Patient with NORMAN. Recommend to hold dose at this time and assess further vancomycin clearance prior to redose. 2. Monitor renal function (SCr and BUN) and UOP at least 2-3x weekly or more frequently if renal function changes. 3. Recommend random vancomycin level with AM labs on 01/20. Pharmacy will continue to follow, Jaqueline Thompson PharmD 01/19/2025 1:14 PM * Progress Notes - Oma Zamora Madhuri - 01/19/2025 9:03 AM EDT Occupational Therapy Evaluation Patient Name: Ravin Ribeiro Today's Date: 01/19/2025 OT Discharge Recommendations: Home with assistance Equipment Recommended: Patient owns appropriate equipment History Ravin Ribeiro is 34 y.o. male admitted 01/15/2025 for work-up of Cellulitis of leg, left. Hospital Course 1. Sepsis following procedure, initial encounter ([facility]) 2. Cellulitis of left lower extremity 3. Acute postoperative pain Procedures 01/18/2025 Procedure(s): INCISION AND DRAINAGE, LOWER EXTREMITY Past Medical History Patient has no past medical history on file. Past Surgical History Patient has a past surgical history that includes Leg Surgery (Left). Precautions Left Lower Extremity Weight Bearing Status: Weight Bearing as Tolerated Medical Precautions: Fall precautions Subjective Patient agreeable to OT evaluation/treatment following RN's consent. Participants in Care Family/Caregiver Present: No Presentation Oxygen Therapy: None (Room air) Lines and Tubes: Intravenous access, Wound vac Pre-Session: Supine, Head of bed elevated, Lines intact Pre-Session Comments: RN agreebale to session Post-Session: Sitting in chair, Call light in reach, RN notified, Lines intact, Chair alarm Post-Session Comments: all needs in place, RN aware of session details Home Living/Set-Up Lives With: Spouse Home Type: House Home Adaptive Equipment: Wheelchair-manual, Rolling walker Home Layout: Stairs to enter with rails, One level Number of Stairs: 1 Bathroom: Tub/Shower: Tub/Shower combo, Shower chair Bathroom: Toilet: Standard Bathroom: Accessibility: Accessible Prior Level of Function Receives Help From: No assist required prior to admission Level of Mobility: Ambulatory- community Mobility [place]: Independent gait without device (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 Patient provided with cuing throughout activity for pain management techniques and provided with repositioning for comfort and pressure relief. Delirium Screening Vera Agitation Sedation Scale (RASS): Alert and calm Confusion Assessment Method-ICU (CAM-ICU/PCAM-ICU) Feature 3: Altered Level of Consciousness: Negative Cognition Overall Cognitive Status: Within Functional Limits Arousal/Alertness: Appropriate responses to stimuli Mood/Behavior: Alert Orientation Level: Oriented X4 Single Step Commands: Consistently Multi-Step Commands: Consistently Method of Communication: Verbal Safety Judgment: Good awareness of safety precautions Awareness of Errors: Good awareness of errors made Deficit Awareness: Fully aware of deficits Attention Span: Appears intact Problem Solving: Able to problem solve independently Right Upper Extremity Examination RUE Assessment: Within Functional Limits Manual Muscle Testing - RUE: Within functional limits Light Touch: Right Upper Extremity: Intact Left Upper Extremity Examination LUE Assessment: Within Functional Limits Manual Muscle Testing - LUE: Within functional limits Light Touch: Left Upper Extremity: Intact Right Lower Extremity Examination RLE Assessment: Within Functional Limits Manual Muscle Testing - RLE: Within functional limits Light Touch: Right Lower Extremity: Intact Left Lower Extremity Examination LLE Assessment: Within Functional Limits (Hip and knee 0-90 deg, ankle WFL) Manual Muscle Testing: (grossly 3+/5) Light Touch: Left Lower Extremity: Intact Perception/Coordination Fine Motor Coordination Examination Left Hand, Manipulation of Objects: Normal performance Right Hand, Manipulation of Objects: Normal performance Bed Mobility Bed Mobility Exam: Scooting/Bridging Level of [place]: Independent Bed Mobility Exam: Supine to Sit Level of [place]: Independent Transfers Transfer Exam: Sit to stand Level of [place]: Stand-by assist Physical/Nonphysical Assist: Verbal Cues Assistive Device: Walker, rolling Transfer Exam: Stand to Sit Level of [place]: Stand-by assist Physical/Nonphysical Assist: Verbal Cues Assistive Device: Walker, rolling Toilet Transfer Level of [place]: Stand-by assist Physical/Nonphysical Assist: Verbal Cues Type of Transfer: Ambulation, To toilet Assistive Device: Walker, rolling, Grab bar Functional Mobility Device: Rolling walker Assistance: Standby assist <Household distance, cuing for safety, pacing activity, RW management, and encouraged L LE WBAT-as permitted per chart (pt reports being used to NWB for pain management [employer]IO [employer]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) Balance Postural Appearance Posture: Within Functional Limits Static Sitting Balance Static Sitting-Balance Support: Feet supported, No upper extremity support Static Sitting-Level of Assistance: Independent Dynamic Sitting Balance Dynamic Sitting-Balance Support: Feet supported, No upper extremity support Dynamic Sitting-Balance: Lateral weight shifts, Anterior/Posterior weight shifts Level of Assistance: Independent Static Standing Balance Static Standing-Balance Support: Right upper extremity support, Left upper extremity support (rolling walker) Static Standing-Level of Assistance: Standby assist Dynamic Standing Balance Dynamic Standing-Balance Support: Right upper extremity support, Left upper extremity support (rolling walker) Dynamic Standing Level of Assistance: Standby assist Self-Care Interventions Feeding Feeding Level of Assistance: Independent Feeding Where Assessed: Chair Level Feeding Interventions: pt demo's functional jamaal UE strength and dexterity needed for food tray set up and self feeding routine Grooming Grooming Level of Assistance: SBA, Setup Grooming Where Assessed: Standing sinkside Grooming Interventions: using RW, hand washing standing at sink, no loss of balance Bathing UE Bathing Level of Assistance: SBA, Setup LE Bathing Level of Assistance: SBA, Setup Bathing: Where Assessed: Edge of bed Bathing Interventions: sponge bathing simulation, functional dyn sitting balance for completion of bathing tasks UE Dressing UE Dressing Level of Assistance: Modified independent UE Dressing Where Assessed: Edge of bed UE Dressing Interventions: donning clean gown Lower Extremity Dressing Sock Level of Assistance: Setup, Modified independent (long sitting supine) Toileting Toileting Level of Assistance: SBA, Setup Where Assessed: Toilet Toileting Interventions: pt requires SBA using RW for ambulation to/from bathroom, SBA for toilet transfes (standard height commode) and grab bar to R side, mod I for ajneth care following incontinent episode of BM, pt performed essentially a lower body sponge bath seated on commode without difficulty, good pain management and good balance noted, x8 min total Home safety and review of DME/AE recc's provided for optimal independence with ADL tasks and fall prevention in the home/community. Standardized Assessments Marko Index Feeding: Needs help cutting, spreading butter, etc., or requires modified diet Bathing: Dependent Grooming: Needs help with personal care Dressing: Needs help but can do about half unaided Bowels: Occasional accident Bladder: Occassional accident Toilet Use: Needs some help but can do some things alone Transfers (Bed to Chair and Back): Minor help (verbal or physical) Mobility (on Level Surfaces): Wheelchair independent, including corners, > 50 yards Stairs: Unable Total Score: 40 Assessment Patient does not demo the need for cont'd skilled OT at this time- pt is mod I with SBA using RW for all OOB ADL routines with pain well managed. Patient reports no DME needs prior to d/c home, with no additional concerns at it pertains to functional mobility and/or ADL tasks in the home/community e nvironments. Patient's family not present for consult- RN and team notified of pt's d/c needs. OT will sign off at this time. Eval Complexity Occupational Profile: Expanded review of medical/therapy records and additional review of physical,cognitive, or psychosocial history Clinical Decision Making: Moderate Overall Eval complexity: Moderate OT Recommendations Discharge Destination: Home with assistance Discharge Equipment: Patient owns appropriate equipment Plan Patient does not demonstrate the need for cont'd inpatient occupational therapy services at this time. Patient to be discharged from occupational therapy- thank you for the consult. Written by Oma Zamora on 01/19/25 at 1:48 PM. * Progress Notes - Svitlana Tena - 01/19/2025 9:02 AM EDT Physical Therapy Evaluation & Discharge Patient Name: Ravin Ribeiro Today's Date: 01/19/2025 PT Discharge Recommendations: Home with assistance Equipment Recommended: Patient owns appropriate equipment History Ravin Ribeiro is 34 y.o. male admitted 01/15/2025 for work-up of Cellulitis of leg, left. Problem List Active Hospital Problems Diagnosis Date Noted Cellulitis of leg, left 01/16/2025 Cellulitis of left lower extremity 01/15/2025 Procedures 01/18/2025 Procedure(s): INCISION AND DRAINAGE, LOWER EXTREMITY Past Medical History Patient has no past medical history on file. Past Surgical History Patient has a past surgical history that includes Leg Surgery (Left). Precautions Left Lower Extremity Weight Bearing Status: Weight Bearing as Tolerated Medical Precautions: Fall precautions Subjective Pt agreeable to PT. Participants in Care Family/Caregiver Present: No Presentation Oxygen Therapy: None (Room air) Lines and Tubes: Intravenous access, Wound vac Pre-Session: Supine, Head of bed elevated, Lines intact Pre-Session Comments: RN agreebale to session Post-Session: Sitting in chair, Call light in reach, RN notified, Lines intact, Chair alarm Post-Session Comments: all needs in place, RN aware of session details Home Living/Set-up Lives With: Spouse Home Type: House Home Adaptive Equipment: Wheelchair-manual, Rolling walker Home Layout: Stairs to enter with rails, One level Number of Stairs: 1 Bathroom: Tub/Shower: Tub/Shower combo, Shower chair Bathroom: Toilet: Standard Bathroom: Accessibility: Accessible Prior Level of Function Receives Help From: No assist required prior to admission Level of Mobility: Ambulatory- community Mobility [place]: Independent gait without device (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 ) History of Falls: Yes ADL Performance: Independent Patient/Family Goals Return home Objective Pain Pain: Yes Pain Rating (0-10): 4 Pain Location: left LE Pain Type: Acute pain Response/Interventions: increased ambulation or activity, pillow support provided, position changed, and RN notified Delirium Screening Vera Agitation Sedation Scale (RASS): Alert and calm Confusion Assessment Method-ICU (CAM-ICU/PCAM-ICU) Feature 3: Altered Level of Consciousness: Negative Cognition Overall Cognitive Status: Within Functional Limits Arousal/Alertness: Appropriate responses to stimuli Mood/Behavior: Alert Single Step Commands: Consistently Multi-Step Commands: Consistently Method of Communication: Verbal Right Upper Extremity Examination RUE Assessment: Within [...] Intact Left Lower Extremity Examination LLE Assessment: Within Functional Limits (Hip and knee 0-90 deg, ankle WFL) Manual Muscle Testing: (grossly 3+/5) Sensation Light Touch: Left Lower Extremity: Intact Bed Mobility Bed Mobility Exam: Scooting/Bridging Level of [place]: Independent Bed Mobility Exam: Supine to Sit Level of [place]: Independent Transfers Transfer Exam: Sit to stand Level of [place]: Stand-by assist Physical/Nonphysical Assist: Verbal Cues Assistive Device: Walker, rolling Transfer Exam: Stand to Sit Level of [place]: Stand-by assist Physical/Nonphysical Assist: Verbal Cues Assistive Device: Walker, rolling Toilet Transfer Type of Transfer: Ambulation, To toilet Balance Postural Appearance Posture: Within Functional Limits Static Sitting Balance Static Sitting-Balance Support: Feet supported, No upper extremity support Static Sitting-Level of Assistance: Independent Dynamic Sitting Balance Dynamic Sitting-Balance Support: Feet supported, No upper extremity support Dynamic Sitting-Balance: Lateral weight shifts, Anterior/Posterior weight shifts Level of Assistance: Independent Static Standing Balance Static Standing-Balance Support: Right upper extremity support, Left upper extremity support (rolling walker) Static Standing-Level of Assistance: Standby assist Dynamic Standing Balance Dynamic Standing-Balance Support: Right upper extremity support, Left upper extremity support (rolling walker) Dynamic Standing Level of Assistance: Standby assist Gait Training (9 minutes) Device: Rolling walker Assistance: Standby assist Distance: 15ft (seated rest in bathroom) + 25ft Gait Analysis: Pt demonstrates decreased step length, decreased lesley, initially maintaining NWB left LE per Pt preference progressing to increased WBAT. Pt occasionally lifting rolling walker fromfloor when turning or advancing. Gait Training Interventions: Pt educated on weight bearing status left LE and rolling walker was fitted to his height. Verbal cues to attempt weight bearing as tolerated on left LE as Pt initially maintaining NWB. Verbal cues to keep walker in contact with floor when advancing forward. Stairs Stair Training Interventions: Pt declined formal stair training when offered. PT verbally educated Pt on sequencing of ascending and descending x1 step to enter home: up with the good, down with thebad . Standardized Assessments Standardized Assessments Standardized Assessments: AMPA 6-Clicks Mobility Assessment AMPA 6-Clicks Mobility Assessment Difficulty patient has turning [...] need climbing 3-5 steps with a railing?: A little [facility] 6-Clicks Mobility Assessment Total : 23 No data recorded Assessment Pt is SBA-IND with all functional mobility, demonstrates ability to ambulate short household distances safely with rolling walker, gait mechanics improved following cueing. Pt declined need for formal stair training due to history of injury on left LE and familiarity with using walker. Pt is appropriate for discharge home with assistance once medically stable. PT will sign off, recommend Pt continue to ambulate with nursing staff during admission to maintain current level of mobility. Impairments: Decreased endurance, ventilation, and/or gas exchange, Impaired gait dynamics/performance, Pain, Decreased strength Activity Limitations: Inability to ambulate community distances Participation Restrictions: Work, Community leisure Activity Tolerance: Tolerates 10-20 minutes of activity without rest Diagnosis: impaired functional mobility secondary to medical diagnosis Eval Complexity History Profile: 1 - 2 personal factors and/or comorbidities Clinical Presentation: Evolving clinical presentation with changing characteristics Clinical Decision Making: Moderate complexity PT Recommendations Discharge Destination: Home with assistance Discharge Equipment: Patient owns appropriate equipment Plan Patient no longer demonstrates need for inpatient physical therapy services. Patient to be discharged from physical therapy. Please re-consult if Pt status changes. Written by Svitlana Tena on 01/19/25 at 12:38 PM. * Progress Notes - Mauricio Mondragon MD - 01/19/2025 8:18 AM EDT Orthopaedic Trauma Surgery Progress Note 01/19/25 Subjective: No acute events overnight. Doing well. Pain controlled. Tolerating diet. No nausea, vomiting, fevers or chills. POD1 from repeat I&D left lower ext and application of [place]. Rates his pain as 3/10. Mild NORMAN overnight, discussed importance of oral hydration. Will be NPO at midnight in preparation for OR tomorrow. Objective: Vitals: 01/19/25 0810 BP: 120/82 Pulse: 85 Resp: Temp: 37.1 ??C (98.7 ??F) SpO2: 97% Physical Examination: No acute distress Non labored breathing Peripheral perfusion intact Focused Musculoskeletal Examination: LLE Compressive tim wrap in place, instillation [place] in place Motor intact tib ant, gastroc, EHL/FHL SILT SP, DP, tibial, sural, saph Palpable DP pulse Data: Labs in last 18 hours: CBC WBC 11.85 (H) Hb 11.3 (L) Plt 394 (H) Hct 34.2 (L) INR ??, PTT ??, Anti-Xa ?? BMP Na 137 Cl 100 BUN 24 (H) Glu 134 (H) K 4.7 Co2 24 Cr 1.34 (H) Lactate ?? Assessment & Plan: Ravin Ribeiro is a 34 y.o. male patient with the following orthopedic injuries: L knee cellulitis s/p ORIF tibial plateau fx (01/01) s/p I&D (01/18) Edited by: Mauricio Mondragon MD at 01/19/2025 0515 SSI: H/H 11.3/34.2, BMP cr 1.34 (01/19), serial exams, FU ID recs, IV abx Vanc/Zosyn, OR Cx: PMN (01/19) Edited by: Mauricio Mondragon MD at 01/19/2025 0801 - DVT prophylaxis: lovenox - Pain control: multimodal - Nutritional optimization - Bowel regimen - Follow up: pending repeat I&D 01/20 - Disposition: pending repeat OR, ID final recs - Cont IV abx per ID - Mild NORMAN this AM, 1L LR MIVF - Marked and consented for repeat I&D 01/20, NPO at midnight Mobility Orders Mobility Protocol: Ortho/Trauma/Spine Mobility Guidelines Spinal Precautions: No cranial, cervical or thoracolumbar spinal precautions necessary Extremity Precautions: Extremity Precautions Extremity: LLE Mobility Restrictions (LLE): Weight bear as tolerated (WBAT) Type of Brace (LLE): None Other mobility precautions: No other precautions required Red Mondragon MD Orthopaedic Surgery PGY-1 [facility] Orthopaedic Trauma Service Pager: [phone] Orthopaedic Recon/Spine/Foot and Ankle Service Pager: [phone] Personal Pager: [phone] Cosigned by Ye Navarro MD at 01/21/2025 7:48 AM EDT * Care Plan - Umu Bangura RN - 01/18/2025 1:33 PM EDT Problem: Adult Inpatient Plan of Care Goal: Plan of Care Review Outcome: Ongoing, Progressing Flowsheets (Taken 01/18/2025 1333) Progress: improving Plan of Care Reviewed With: patient Goal: Patient-Specific Goal (Individualized) Outcome: Ongoing, Progressing Goal: Absence of Hospital-Acquired Illness or Injury Outcome: Ongoing, Progressing Goal: Optimal Comfort and Wellbeing Outcome: Ongoing, Progressing Goal: Readiness for Transition of Care Outcome: Ongoing, Progressing * Anesthesia PACU Signout - Sterling Arriaga DO - 01/18/2025 12:12 PM EDT Patient: Ravin Ribeiro Anesthesia Type: general Vitals Value Taken Time BP 145/101 01/18/25 12:01 Temp 36.6 ??C (97.9 ??F) 01/18/25 12:00 Pulse 101 01/18/25 12:11 Resp 19 01/18/25 12:11 SpO2 96 % 01/18/25 12:11 Vitals shown include unfiled device data. Anesthesia PACU Signout Patient location during evaluation: PACU Patient participation: complete - patient participated Level of consciousness: baseline and awake Pain management: adequate (pain score 0-3) Airway patency: natural airway Hydration status: acceptable PONV: none Cardiovascular status: acceptable and hemodynamically stable Respiratory status: acceptable, spontaneous ventilation, unassisted and nonlabored ventilation Discharge Disposition: admit to inpatient unit Cosigned by Joon Posada MD at 01/18/2025 2:46 PM EDT Associated attestation - Joon Posada MD - 01/18/2025 2:46 PM EDT Signature only. * Op Note - Ye Navarro MD - 01/18/2025 9:48 AM EDT Operative Note Date: 01/18/25 Location: [facility] Name: Ravin Ribeiro, : 1990, Diagnoses: Pre-op Diagnosis Cellulitis of left lower extremity Post-op Diagnosis Cellulitis of left lower extremity Procedure(s): Irrigation and debridement of left medial tibial plateau deep abscess Attending Surgeon(s): * Ye Navarro - Primary Security Test Engineer(s): * Harvey Swift MD - Resident - Assisting Anesthesia: Choice ASA: III Blood Administration: Blood Product Administration History None Estimated Blood Loss: Minimal Drains: * None in log * Specimen: Specimens ID Source Frozen? A Other (specify site) Description: Left knee fluid for culture B Other (specify site) Description: Left medial tibial plateau fluid C Other (specify site) Description: PCR for joint infection left knee fluid D Other (specify site) Description: Left knee medial incsision deep tissue Findings: Overt purulent material tracking down to the plate through the medial tibial plateau incision Indications: Ravin Ribeiro is an 34 y.o. male who is having surgery for Cellulitis of left lower extremity. This patient had a open reduction internal fixation of the medial plateau fracture of the left lower extremity in December 2024. Unfortunately, patient has now demonstrating erythema, drainage, surrounding pain and inflammation in the surrounding tissues to the incision site. There is a small amount of overt pus draining from the incision. Due to these findings, as well as findings on imaging, we had a discussion with the patient regarding recommendation for return to the operating room for irrigation and debridement. After discussion of the risks, benefits, alternatives to this he has elected to proceed. He is marked on the left lower extremity as the surgical site. Informed consent paperwork was obtained prior to proceeding to OR in his uploaded to the patient's medical record. Narrative: The patient was brought to the operating room and general anesthesia induced without issue. The patient was transferred supine to an operating table with all bony prominences well padded. A surgical time-out was then completed confirming the patient's identity, the intended procedure, the surgical site as well as other factors in accordance with [facility] policy. The left lower extremity was then prepped and draped in the normal sterile fashion with a nonsterile tourniquet placed proximal to the sterile portion of the drapes. We next began by elevating the limb for gravity exsanguination forapproximately 3 minutes. The tourniquet was then inflated 250 mmHg. We next began by changing our gloves and using a additional ChloraPrep to re-prepped the area around the knee. There was a palpableeffusion we elected to send a portion of this fluid for analysis. An 18 gauge spinal needle was introduced through a superolateral approach into the knee joint. 38 cc of bloody appearing fluid was aspirated from the knee. There did not appear to be any overt pus in this aspirate. This fluid was then transferred off the field to be sent for analysis include body fluid cell count, body fluid culture, body fluid crystals, PCR joint infection panel. We next turned our attention to the medial proximal tibial incision with surrounding erythema. We used pickups and suture scissors to remove the prior nylon sutures in place and then handed off thesecontaminated instruments off the field. Upon removal of the nylon sutures, the wound began to open and weep purulent material. At this point, dissection scissors were inserted in the wound and spreadbluntly which further allowed an efflux of purulent material. In total, it is estimated proximally 75 cc liquid purulent material was expressed from the wound. It was noted that this purulent material tracked straight down to the plate and with a minimal violation of tissue planes the plate was visi ble. We next began to remove any deep sutures that we encountered that were still intact and further open the incision to its prior extent. At this point, we used a curette to sharply debride some tissue samples from the area approximating the plate. Three total samples for culture were sent from the field including 2 samples of the purulent fluid and 1 sample of deep tissue from the area approximated plate. We next began our debridement which consisted of sharp debridement of tissue including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 breathing Peripheral perfusion intact FOCUSED MUSCULOSKELETAL EXAM LLE: skin intact, medial sided sutures in place with surrounding erythema. There is induration, no focal fluid collection, tender to palpation around medial incision, no expressible fluid from incision ROM: painless/stable at hip, knee, and ankle Motor: 4/5 EHL, FHL, TA, GSC. 4/5 knee flexion, extension. Sensory: Sensation intact to light touch deep peroneal, superficial peroneal, tibial, sural, saphenous nn. Vascular: 2+ dorsalis pedis and posterior tibial pulse, cap refill <2 sec, digits [facility] Orthopedic Surgery Tertiary Exam Completed 01/16/25 No additional areas of tenderness or deformity noted upon palpation and ROM of upper and lower extremities (excluding known injuries). ASSESSMENT AND PLAN Ravin Ribeiro is a 34 y.o. male patient with L knee cellulitis s/p ORIF tibial plateau fx (01/01) -Plan for admission for IVAbx -No plan for OR currently. Will continue to perform serial exams. Mitch Giron MD PGY-3, Orthopaedic Surgery [facility] Orthopaedic Trauma Service Pager: [phone] Orthopaedic Recon/Spine/Foot and Ankle Service Pager: [phone] Cosigned by Sachin Garza MD at 01/18/2025 12:16 AM EDT Associated attestation - Sachin Garza MD - 01/18/2025 12:16 AM EDT I discussed the case with the resident/fellow and agree with the findings and plan as documented. Sachin Garza MD Orthopaedic Trauma * Discharge Instr - Other Orders - Camden Vital RN - 01/16/2025 10:28 AM EDT Do not take out stitches or martha. Leave the bandage on. Left leg TIM wrap should be removed 72 hours following surgery, and then re- applied daily for swelling as needed taking care not to remove the sterile OR dressing underneath. Leave left leg Prevena dressing on until follow-up appointment on 01/27/2025. Shower at any time. Avoid soaking your wound. Based upon recent changes to [place] law related to prescribing opioid pain medications, our providers will not provide more than a 14 day supply of controlled medications following a major surgery or trauma from the date of your injury or hospital discharge. [place] 218[place], [place], & [address] 9:260. * Discharge Instr - Activity - Camden Vital RN - 01/16/2025 10:28 AM EDT Move around as you are able. Do not drive while taking narcotic medications. Use assistive equipment as instructed. Weight bearing as tolerated through left leg. * Discharge Instr - AVS First Page - Camden Vital RN - 01/16/2025 10:27 AM EDT Reasons to call: Feels warm or [...] please contact the Orthopedic Transition Nurse at [phone] Monday through Monday 8:00 am to 2:30 pm. If you feel your concern is a medical emergency please call 911 immediately. * Pharmacy note - Jeannette Daly, RomaineD - 01/16/2025 10:09 AM EDT Pharmacokinetic Consult - Therapeutic Drug Monitoring HPI and Hospital Course: Ravin Ribeiro is a 34 y.o. male who was started on IV vancomycin for surgical site infection s/p ORIF tibial plateau fracture. Pharmacy was consulted for management ofvancomycin. Dose History: Recent Vancomycin Admin vancomycin (Vancocin) 2,500 mg in sodium chloride 0.9 % 500 mL IVPB (mg) 2,500 mg Given 01/16/25 0943 Wt Readings from Last 1 Encounters: 01/15/25 148 kg (325 lb 6.4 oz) BMI: 40.67 kg/m?? Creatinine, Plasma (mg/dL) Date/Time Value 01/16/2025 0431 0.66 (L) 01/15/2025 2211 0.78 01/02/2025 0246 0.58 (L) Estimated Creatinine Clearance: 125 mL/min (A) (by C-G formula based on SCr of 0.66 mg/dL (L)). Assessment Estimated kinetic evaluation utilizing population kinetics: Vancomycin Dosing Method Vancomycin Dose Calculation Method Area under the curve (AUC) dosing General Parameters for Vancomycin Dose Calculation (AUC) Dosing Weight 148 kg (326 lb 4.5 oz) Vancomycin clearance calculation method Matzke equation Administer over 120 minutes AUC 24 hr goal (mg-hr/L) 500 mg??hr/L Estimated creatinine clearance (mL/min 125 mL/min Matzke Equation Parameters for Vancomycin Dose Calculation (AUC) Estimated vancomycin Vd (0.7 L/kg typically) 0.7 L/kg (Typical) Crass Equation Parameters for Vancomycin Dose Calculation (AUC) Serum creatinine (mg/dL) 0.66 mg/dL Recommended Initial Vancomycin Dosing Estimated Ke (hr ^-1) 0.1082 hr^-1 Estimated half-life (hr) 6.41 hr Estimated vancomycin Cl (L/hr) 11.21 Recommended TDD (mg) 5605 Plan 1. Recommend loading dose of 2500 mg IV once 2. Recommend initiating vancomycin 1500 mg IV every 8 hours to target an AUC of 400-600. 3. Monitor renal function (Scr and BUN) and UOP at least 2-3x/week or more frequently if renal function changes. 4. Obtain vancomycin levels around the 4th dose of new regimen if therapy is to be continued. Pharmacy will continue to follow. Submitted by: Jeannette Daly PharmD 01/16/2025 10:08 AM * H&P - Tyrone Howard MD - 01/16/2025 7:49 AM EDT ORT H&P See consult note for H&P info. Plan to start broad spectrum IV abx Serial examinations WRadha Howard MD PGY-2, Orthopaedic Surgery [facility] Cosigned by Sachin Garza MD at 01/16/2025 7:43 PM EDT * Consults - Tyrone Howard MD - 01/15/2025 11:55 PM EDTAssociated Order(s): IP CONSULT TO ORTHOPAEDICS Orthopaedic Trauma Surgery Consult Time consulted: 2254 Time of patient evaluation: 2244 Chief Complaint: L Knee pain s/p ORIF L tibial plateau (01/01/25) HPI: Ravin Ribeiro is a 34 y.o. male with a history pertinent for ORIF of left tibial plateau on 01/01/2025. Patient has been doing well since he was discharged. Pain has been controlled. Roughly 2 days ago, he noticed redness over his medial incision site. He denies any drainage coming fromhis incision. He subsequently started to develop pain and subjective fever. Patient states that he is not place any weight on the left lower extremity. In the emergency department he has elevated inflammatory markers. Past Medical History: Past Medical History[1] Family History: Reviewed and found to be non contributory to HPI/ml = Tobacco: 1ppd Alcohol: denies Illicit substance use: denies Past Surgical History: Surgical History[2] Medications: Medications Ordered Prior to Encounter[3] Allergies: Allergies[4] ROS: A 14 point review of systems was conducted and was negative except aforementioned in the HPI, and if present the following systems listed below: Physical Exam: Vitals: 01/15/25 2133 BP: 113/79 Pulse: 102 Resp: (!) 27 Temp: 37.2 ??C (99 ??F) SpO2: 98% General: Alert. In no acute distress. Speech is easily understandable, and the patient answers all questions appropriately. Psych: Appropriate mood and affect Eyes: EOMI HEENT: NCAT, MMM Resp: Good effort, symmetric chest expansion, no respiratory difficulty CV: No lymphedema, peripheral perfusion intact, pulses as below Skin: No grossly palpable masses, rashes, or lesions are noted except those specifically mentioned below on each extremity. Musculoskeletal Exam: LLE: skin intact, medial sided sutures in place with surrounding erythema. There is induration, no focal fluid collection, tender to palpation around medial incision, no expressible fluid from incision ROM: painless/stable at hip, knee, and ankle Motor: 4/5 EHL, FHL, TA, GSC. 4/5 knee flexion, extension. Sensory: Sensation intact to light touch deep peroneal, superficial peroneal, tibial, sural, saphenous nn. Vascular: 2+ dorsalis pedis and posterior tibial pulse, cap refill <2 sec, digits WWP Imaging: Radiographic studies were personally reviewed and demonstrate the following: - x-ray of the left knee demonstrates changes s/p ORIF of left tibial plateau fracture. Additionally, there is a left intramedullary nail in the femur outside of hardware failure. -CT left tib/fib does not demonstrate definitive abscess Labs: WBC 19 ESR 46 CRP 91.9, Assessment & Plan: Ravin Ribeiro is a 34 y.o. male with the following orthopedic injuries: Concern for surgical site infection s/p ORIF left tibial plateau on 01/01/2025 - history, examination and inflammatory markers are concerning for possible surgical site infectionvs cellulitis - will plan to initiate broad spectrum IV abx - admit ORT fracture Tabitha Howard MD PGY-2, Orthopaedic Surgery [facility] Orthopaedic Trauma Service Pager: [phone] Orthopaedic Recon/Spine/Foot and Ankle Service Pager: [phone] [1] History reviewed. No pertinent past medical history. [2] Past Surgical History: Procedure Laterality Date LEG SURGERY Left [3] No current facility-administered medications on file prior to encounter. Current Outpatient Medications on File Prior to Encounter Medication Sig Dispense Refill acetaminophen (Tylenol) 500 MG tablet Take 2 tablets by mouth every 6 hours as needed for pain. 100tablet 0 enoxaparin (Lovenox) 60 MG/0.6ML solution prefilled syringe Inject 0.6 mL under the skin 2 times a day for 53 doses. 31.8 mL 0 ibuprofen 400 MG tablet Take 1 tablet by mouth every 6 hours as needed for mild pain. 50 tablet 0 methocarbamol (Robaxin) 750 MG tablet Take 1 tablet by mouth every 6 hours as needed for muscle spasms. 50 tablet 0 multivitamin (Theragran-M) tablet Take 1 tablet by mouth 1 (one) time each day. 30 tablet 0 naloxone (Narcan) 4 mg/0.1 mL nasal spray 1. Give 1 spray in nostril for no/slow breathing or cannot wake after opioid use 2. Call 911 3. Repeat in other nostril if symptoms continue 2 each 2 Nutritional Supplements (Paul) pack Take 1 packet by mouth 2 times a day. 30 each 0 oxyCODONE (Roxicodone) 5 MG immediate release tablet Take 1 tablet by mouth every 6 hours as neededfor moderate pain. 20 tablet 0 senna-docusate (Janeth-Colace) 8.6-50 MG tablet Take 1 tablet by mouth 2 times a day. 28 tablet 0 traMADol (Ultram) 50 MG tablet Take 1 tablet by mouth every 8 hours as needed for severe pain (painnot responsive to non-opioid analgesics). 25 tablet 0 [4] Allergies Allergen Reactions [place] Hives Cosigned by Sachin Garza MD at 01/18/2025 12:15 AM EDT Associated attestation - Sachin Garza MD - 01/18/2025 12:15 AM EDT I saw and evaluated the patient. I discussed the case with the resident/fellow and agree with the findings and plan as documented. 34-year-old male status post 01/01/2025 left tibial plateau open reduction internal fixation. Patient was doing well initially but approximately 2 days prior to admission and he noticed increasing erythema over his left medial knee incision. Denies drainage. He reported a subjective fever and increasing pain. On exam, his left lower extremity surgical incision is healing with sutures in place. There is surrounding erythema. There is induration. There is no palpable fluid collection. Motor intact EHL/FHL/TA/GS. Sensation intact to light touch S/S/SP/DP/T nerve distributions. Brisk cap refill less than 2 seconds, warm and well perfused distally. X-rays of the left knee demonstrates status post left tibial plateau open reduction internal fixation. Unchanged alignment. Hardware intact. Interval healing noted. CT left tibia/fibula with IV contrast shows nonspecific fluid collection along the medial aspect of the proximal tibia. It is not well- circumscribed. It is a postoperative hematoma versus abscess. White blood cell count 19.24. Hemoglobin 13.0. CRP 91.9. ESR 46. Assessment/plan: 34-year-old male status post above. Now with cellulitis and concern for surgical site infection. He has no definitive abscess on his imaging at this time. We will trial intravenous antibiotics andmonitor the patient for improvement. We will obtain an ultrasound of the left lower extremity to see if this could better delineate a fluid collection. We will monitor him closely with serial exams and labs. Sachin Garza MD Orthopaedic Trauma * ED Provider Notes - Gus Vigil APRN - 01/15/2025 9:21 PM EDT Images from the original note were not included. - HPI Chief Complaint Patient presents with Post-op Problem This is a 34-year-old male patient, who was transferred here via ground EMS for orthopedic evaluation. The patient had a recent left tibial plateau ORIF performed here. Over the last few days, the patient reports significant increases of pain and swelling along with redness and warmth to his surgical site. He reports subjective fevers of 102?? F. He was seen and evaluated at the outsidehospital where there was concern for postoperative infection and he was transferred here after laboratory workup, x-rays, and initiation of antibiotic therapy with Zosyn and vancomycin were conducted. Patient History Past Medical History[1] Surgical History[2] Family History[3] Social History[4] Allergies: Allergies[5] Physical Exam ED Triage Vitals [01/15/25 2133] Temp Heart Rate Resp BP 37.2 ??C (99 ??F) 102 (!) 27 113/79 SpO2 Temp Source Heart Rate Source Patient Position 98 % Oral Monitor Sitting BP Location FiO2 (%) Right arm -- Physical Exam Vitals and nursing note reviewed. Constitutional: Appearance: Normal appearance. He is well-developed. He is obese. He is not ill- appearing, toxic-appearing or diaphoretic. HENT: Head: Normocephalic and atraumatic. Right Ear: External ear normal. Left Ear: External ear normal. Nose: Nose normal. Mouth/Throat: Mouth: Mucous membranes are moist. Pharynx: Oropharynx is clear. Eyes: Extraocular Movements: Extraocular movements intact. Cardiovascular: Rate and Rhythm: Normal rate and regular rhythm. Pulses: Normal pulses. Radial pulses are 2+ on the right side and 2+ on the left side. Dorsalis pedis pulses are 2+ on the right side and 2+ on the left side. Heart sounds: Normal heart sounds. Pulmonary: Effort: Pulmonary effort is normal. Breath sounds: Normal breath sounds. Abdominal: Palpations: Abdomen is soft. Musculoskeletal: General: Swelling and tenderness present. Cervical back: Normal range of motion and neck supple. Left lower leg: Edema present. Legs: Skin: General: Skin is warm and dry. Capillary Refill: Capillary refill takes less than 2 seconds. Findings: Erythema present. Neurological: General: No focal deficit present. Mental Status: He is alert and oriented to person, place, and time. GCS: GCS eye subscore is 4. GCS verbal subscore is 5. GCS motor subscore is 6. Motor: Motor function is intact. Coordination: Coordination is intact. Psychiatric: Attention and Perception: Attention and perception normal. Mood and Affect: Mood and affect normal. Speech: Speech normal. Behavior: Behavior is uncooperative. Thought Content: Thought content normal. Cognition and Memory: Cognition and memory normal. Judgment: Judgment normal. No data recorded ED Course & MDM This patient was seen and evaluated in this ED in conjunction with Dr. Mann. -OS records were reviewed and used in this MDM. This did include review of the ED record, MAR, laboratory workup, radiology imaging and radiology reports, in addition to EMTALA records. Differential Diagnosis: Can include, but is not limited to postoperative infection, NSTI, septic joint, superficial cellulitis, hardware failure. In order to fully explore the differential diagnosis the following treatments and tests were ordered: Complete laboratory workup as below was ordered reviewed by me. CBC showed significant leukocytosisat 19k. Blood cultures were ordered and are pending at this time. Multiple plain film views of the patient's left knee and tib-fib were obtained, in addition to a one-view chest x-ray. All these images were reviewed by the on- call radiologist, with findings as noted per their reports. Orthopedics was consulted early on in this patient's care for formal evaluation and treatment recommendations. They did request additional imaging and a contrasted CT scan of the left lower extremity was also ordered. These images were reviewed by the on-call radiologist, with findings as noted per their report. The patient's pain was well treated overnight with multiple doses of IV fentanyl and IV Dilaudid. The orthopedic team did come to the ED to see the patient. Please see their note for specifics. The patient was allowed to rest and recover and was monitored overnight in the ED while awaiting final disposition from the orthopedic team. Anticipation is for admission to the orthopedic teamfor operative intervention/washout. ED Medication Administration from 01/15/2025 1921 to 01/16/2025 0657 Date/Time Order Dose Route Action 01/15/2025 2213 EDT fentaNYL (Sublimaze) injection 50 mcg 50 mcg Intravenous Given 01/15/2025 2213 EDT ondansetron (Zofran) injection 4 mg 4 mg Intravenous Given 01/16/2025 0103 EDT iohexol (OMNIPaque) 300 MG/ML injection 100 mL 100 mL Intravenous Given 01/16/2025 0452 EDT HYDROmorphone (Dilaudid) injection 0.25 mg 0.25 mg Intravenous Given 01/16/2025 0452 EDT ondansetron (Zofran) injection 4 mg 4 mg Intravenous Not Given All Other Orders Ordered Status Ordering Provider 01/16/25 0651 US Extremity Limited MSK or Soft Tissue Left; Knee; Anterior, Posterior, Medial Once Acknowledged EMELY GIRON Bandar 01/16/25 0043 CBC W/O Differential STAT Final result TYRONE HOWARD Miguel 01/16/25 0043 Prothrombin Time/INR STAT Final result TYRONE HOWARD Miguel 01/16/25 0043 Basic Metabolic Panel, Plasma STAT Final result TYRONE HOWARD Miguel 01/15/25 2225 STAT Canceled LEETYRONE 01/15/25 222 STAT Canceled LEE TYRONE Miguel 01/15/25 222 STAT Canceled TYRONE HOWARD Miguel 01/15/25 222 NPO diet NPO except: Sips with meds Diet effective midnight Comments: To OR with Ortho Acknowledged TYRONE HOWARD 01/15/25 222 ECG Adult Once Comments: Preop Clearance Preliminary result TYRONE HOWARD 01/15/25 222 XR Chest 1 View One time imaging Comments: Preop Clearance Final result TYRONE HOWARD 01/15/25 222 Type and Screen Once Final result LEE TYRONE Rivera 01/15/252224 Once Canceled GUS VIGIL P 01/15/252224 Consult to Orthopaedics Surgery Once Specialty: Orthopaedic Surgery Provider: (Not yet assigned) Completed GUS VIGIL P 01/15/252224 CT Tibia Fibula Left w IV Contrast Once Final result GUS VIGIL P 01/15/252150 XR Tibia Fibula Left 2+ Views Once Final result GUS VIGIL P 01/15/252150 XR Knee Left 3 Views Once Final result GUS VIGIL P 01/15/252133 Blood gas panel, venous STAT Final result GUS VIGIL P 01/15/252133 C-Reactive protein STAT Final result GUS VIGIL P 01/15/252133 Sed rate, automated STAT Final result GUS VIGIL P 01/15/252133 Blood Culture (Aerobic/Anaerobet Set) STAT Preliminary result GUS VIGIL P 01/15/252133 Blood Culture (Aerobic/Anaerobet Set) STAT Preliminary result GUS VIGIL P 01/15/252133 Saline lock IV Once Acknowledged GUS VIGIL P 01/15/252133 CBC w/diff STAT Final result DAVID VIGILFFRENNY Soares 01/15/252133 PT-INR STAT Final result YARITZAGUS BURRELL 01/15/252133 CMP STAT Final result GUS VIGIL Assessment: Clinical Impressions as of 01/16/25 06 Sepsis following procedure, initial encounter ([facility]) Cellulitis of left lower extremity Acute postoperative pain Social Determinates of Health Risks (including Economic Stability, Education and level of understanding, Healthcare access and quality and concerning social factors): Poor health literacy, Chronic tobacco use, Acute or chronic drug and alcohol use, Social factors impacting patient's psychosocial well-being, Poor social support, and Lives far away Ultimately, this patient was was taken direct to OR (Admission) The primary encounter diagnosis was Sepsis following procedure, initial encounter ([facility]). Diagnoses of Cellulitis of left lower extremity and Acute postoperative pain were also pertinent to this visit.. Patient believed to require admission for the listed diagnoses. The Ortho service was consulted for admission and was agreeable to admit to Acute Floor (Med/Surg). ED Prescriptions None Disposition Admit - [1] History reviewed. No pertinent past medical history. [2] Past Surgical History: Procedure Laterality Date LEG SURGERY Left [3] No family history on file. [4] Tobacco Use Smoking status: Every Day Current packs/day: 1.00 Average packs/day: 1 pack/day for 15.0 years (15.0 ttl pk-yrs) Types: Cigarettes Smokeless tobacco: Never Vaping Use Vaping status: Never Used Substance Use Topics Alcohol use: Never Drug use: Never [5] Allergies Allergen Reactions [place] Hives Gus Vigil APRN 01/16/25656 Cosigned by Philippe Mann MD at 01/18/2025 8:50 AM EDT Associated attestation - Philippe Mann MD - 01/18/2025 8:50 AM EDT I attest to being involved in more than half the total time in patient care. * ED Triage Notes - Magnus Hernandez - 01/15/2025 9:21 PM EDT Pt transferred from OSH for cellulitis to E s/p recent tibial surgery on 12/31. Pt had surgery to same area on 09/15/23 and re-injured area. Pt has vancomycin infusion on arrival. AAOX4, GCS 15. C/O leg pain 5/10. * Progress Notes - Hayden Weiss PA - 01/15/2025 9:21 PM EDT Images from the original note were not included. ED TRANSFER OF CARE NOTE Transferring provider: René Birch Transferring attending: Dr. Matute ZORAN Time: 06:45 I received sign-out and accepted care of this patient from the previous ED providers caring for this patient. I reviewed the patient's history, exam, work- up, and treatment plan up to this point. Please see the primary ED Provider Note for complete elements of the history, physical exam, and ED course. PERTINENT HISTORY: In brief, Ravin Ribeiro is a 34 y.o. male with relevant H tibial plateau fracture initially repaired September [address] Jenkins on 01/01/[address] Hayes who presented tot ED for evaluation of surrounding the surgical closure site. Patient states that over the past 48 hours he developed a temperature 101.2?? as well as erythema adjacent to his wound closure. He is describing swelling to the leg as well as warmth to the surrounding skin. Outside hospital white blood cell count was elevated at 20 with neutrophils of 16, as result he was started on Zosyn and vancomycin at 6:56 p.m. and 1915. Upon arrival to our facility repeat imaging was obtained and CT scan was concerning for knee effusion, phlegmon and a medial rim enhancing fluid collection concerning for abscess. Administered 2nd round of antibiotics Zosyn and vanc and Orthopedic surgery was consulted. PENDING: I accepted care of this patient from the previous provider while waiting for evaluation and/or recommendations from: Orthopedics. Ultimately, the aforementioned service recommended hospital admission to the Orthopedic surgery team Service. ED Medication Administration from 01/15/20251920 to 01/16/2025 0733 Date/Time Order Dose Route Action 01/15/2025 2213 EDT fentaNYL (Sublimaze) injection 50 mcg 50 mcg Intravenous Given 01/15/2025 2213 EDT ondansetron (Zofran) injection 4 mg 4 mg Intravenous Given 01/16/2025 0103 EDT iohexol (OMNIPaque) 300 MG/ML injection 100 mL 100 mL Intravenous Given 01/16/2025 0452 EDT HYDROmorphone (Dilaudid) injection 0.25 mg 0.25 mg Intravenous Given 01/16/2025 0452 EDT ondansetron (Zofran) injection 4 mg 4 mg Intravenous Not Given 01/16/2025 0732 EDT piperacillin-tazobactam (Zosyn) 4.5 g in sodium chloride 0.9% 100 mL IVPB (vialadapter required) 4.5 g Intravenous Incomplete ED COURSE: Clinical Impressions as of 01/16/25 0733 Sepsis following procedure, initial encounter ([facility]) Cellulitis of left lower extremity Acute postoperative pain Ultimately, this patient Was admitted (Admission) The primary encounter diagnosis was Sepsis following procedure, initial encounter ([facility]). Diagnoses of Cellulitis of left lower extremity and Acute postoperative pain were also pertinent to this visit.. Patient believed to require admission for the listed diagnoses. The Orthopedic surgery service was consulted for admission and was agreeable to admit to Acute Floor (Med/Surg). ED Prescriptions None Disposition Admit - [facility] Cosigned by Jeffrey Matute MD at 01/16/2025 11:28 PM EDT Associated attestation - Jeffrey Matute MD - 01/16/2025 11:28 PM EDT I attest to being involved in providing substantive part of the medical decision making in patient care. documented in this encounter Plan of Treatment Upcoming Encounters Date Type Department Care Team (Late st Contact Info) Description 03/27/2025 9:30 AM EDT Office Visit [facility] [address] [place] [address] Santiago Collado MD [address] [place] [address] 04/07/2025 10:45 AM EDT Appointment [facility] Radiology [address] [place] [address] 04/07/2025 11:20 AM EDT Office Visit [facility] Orthopaedic Surgery & Sports Medicine [address] [place] [address] Lawrence Hayes MD [address] [place] [address] Scheduled Orders Name Type Priority Associated Diagnoses Orde r Schedule Bacteria, Broad range PCR (SO) Lab Routine Cellulitis of left lower extremity Release Upon Ordering for 1 Occurrences starting 01/18/2025 documented as of this encounter Procedures Procedure Name Priority Date/Time Associated Diagnosis Comments EXTRA TUBE LAVENDER TOP Routine 01/22/2025 5:04 AM EDT EXTRA TUBES Routine 01/22/2025 5:04 AM EDT C-REACTIVE PROTEIN, PLASMA Add-On 01/22/2025 5:04 AM EDT BASIC METABOLIC PANEL, PLASMA Routine 01/22/2025 5:04 AM EDT CBC W/O DIFFERENTIAL Routine 01/21/2025 7:29 PM EDT BASIC METABOLIC PANEL, PLASMA Routine 01/21/2025 7:29 PM EDT INSERT PICC LINE Routine 01/21/2025 7:01 PM EDT ABSCESS CULTURE AND GRAM STAIN Routine 01/20/2025 10:42 AM EDT Closed fracture of left tibial plateau with routine healing, subsequent encounter FUNGAL CULTURE, ROUTINE Routine 01/20/2025 10:42 AM EDT Closed fracture of left tibial plateau with routine healing, subsequent encounter ANAEROBIC CULTURE Routine 01/20/2025 10: 42 AM EDT Closed fracture of left tibial plateau with routine healing, subsequent encounter FUNGAL CULTURE, TISSUE AND SYEDA Routine 01/20/2025 10:30 AM EDT Closed fracture of left tibial plateau with routine healing, subsequent encounter AFB CULTURE, NON RESPIRATORY SOURCE AND ACID FAST STAIN Routine 01/20/2025 10:30 AM EDT Closed fracture of left tibial plateau with routine healing, subsequent encounter TISSUE CULTURE AND GRAM STAIN Routine 01/20/2025 10:30 AM EDT Closed fracture of left tibial plateau with routine healing, subsequent encounter ANAEROBIC CULTURE Routine 01/20/2025 10: 30 AM EDT Closed fracture of left tibial plateau with routine healing, subsequent encounter FUNGAL CULTURE, TISSUE AND SYEDA Routine 01/20/2025 10:27 AM EDT Closed fracture of left tibial plateau with routine healing, subsequent encounter AFB CULTURE, NON RESPIRATORY SOURCE AND ACID FAST STAIN Routine 01/20/2025 10:27 AM EDT Closed fracture of left tibial plateau with routine healing, subsequent encounter TISSUE CULTURE AND GRAM STAIN Routine 01/20/2025 10:27 AM EDT Closed fracture of left tibial plateau with routine healing, subsequent encounter ANAEROBIC CULTURE Routine 01/20/2025 10: 27 AM EDT Closed fracture of left tibial plateau with routine healing, subsequent encounter INCISION AND DRAINAGE, LOWER EXTREMITY 01/20/2025 9:34 AM EDT Closed fracture of left tibial plateau with routine healing, subsequent encounter Special Needs supine, berch w/ ext, cystotubing, cx cups, soft tissue set, curettes, 6L NS CREATINE KINASE, TOTAL, PLASMA Routine 01/20/2025 3:40 AM EDT PROTHROMBIN TIME(PT) / INR Routine 01/20/2025 3:40 AM EDT CBC W/O DIFFERENTIAL Routine 01/20/2025 3:40 AM EDT VANCOMYCIN, RANDOM, PLASMA Routine 01/20/2025 3:40 AM EDT BASIC METABOLIC PANEL, PLASMA Routine 01/20/2025 3:40 AM EDT VANCOMYCIN, RANDOM, PLASMA STAT 01/19/2025 11:48 AM EDT CBC W/O DIFFERENTIAL Routine 01/18/2025 11:54 PM EDT BASIC METABOLIC PANEL, PLASMA Routine 01/18/2025 11:54 PM EDT FUNGAL CULTURE, STERILE BODY FLUID (NOT CSF) AND SYEDA Routine 01/18/2025 3:28 PM EDT AFB CULTURE, NON RESPIRATORY SOURCE AND ACID FAST STAIN Routine 01/18/2025 3:28 PM EDT BODY FLUID CULTURE AND GRAM STAIN Routine 01/18/2025 3:28 PM EDT ANAEROBIC CULTURE Routine 01/18/2025 3:2 8 PM EDT BODY FLUID CELL COUNT W/ MANUAL DIFFERENTIAL STAT 01/18/2025 3:01 PM EDT BODY FLUID, CYTOSPIN, PATHOLOGIST INTERPRETATION STAT 01/18/2025 3:01 PM EDT JOINT FLUID CRYSTALS STAT 01/18/2025 3:01 PM EDT JOINT INFECTION PANEL BY PCR Routine 01/18/2025 12:17 PM EDT BODY FLUID CULTURE AND GRAM STAIN Routine 01/18/2025 12:17 PM EDT Cellulitis of left lower extremity FUNGAL CULTURE, TISSUE AND SYEDA Routine 01/18/2025 10:00 AM EDT Cellulitis of left lower extremity AFB CULTURE, NON RESPIRATORY SOURCE AND ACID FAST STAIN Routine 01/18/2025 10:00 AM EDT Cellulitis of left lower extremity TISSUE CULTURE AND GRAM STAIN Routine 01/18/2025 10:00 AM EDT Cellulitis of left lower extremity ANAEROBIC CULTURE Routine 01/18/2025 10: 00 AM EDT Cellulitis of left lower extremity BODY FLUID CELL COUNT W/ MANUAL DIFFERENTIAL STAT 01/18/2025 9:57 AM EDT Cellulitis of left lower extremity FUNGAL CULTURE, STERILE BODY FLUID (NOT CSF) AND SYEDA Routine 01/18/2025 9:57 AM EDT Cellulitis of left lower extremity AFB CULTURE, NON RESPIRATORY SOURCE AND ACID FAST STAIN Routine 01/18/2025 9:57 AM EDT Cellulitis of left lower extremity BODY FLUID, CYTOSPIN, PATHOLOGIST INTERPRETATION STAT 01/18/2025 9:57 AM EDT Cellulitis of left lower extremity BODY FLUID CULTURE AND GRAM STAIN Routine 01/18/2025 9:57 AM EDT Cellulitis of left lower extremity ANAEROBIC CULTURE Routine 01/18/2025 9:5 7 AM EDT Cellulitis of left lower extremity INCISION AND DRAINAGE, LOWER EXTREMITY 01/18/2025 8:49 AM EDT Cellulitis of left lower extremity Special Needs supine, berch w/ ext, cystotubing, cx cups, soft tissue set, curettes, 6L NS 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 Routine 01/18/2025 7:43 AM EDT CBC W/O DIFFERENTIAL Routine 01/18/2025 12:18 AM EDT BASIC METABOLIC PANEL, PLASMA Routine 01/18/2025 12:18 AM EDT VANCOMYCIN, PEAK, PLASMA Pending Discharge 01/17/2025 2:03 PM EDT VANCOMYCIN, TROUGH, PLASMA Pending Discharge 01/17/2025 9:53 AM EDT BASIC METABOLIC PANEL, PLASMA Routine 01/17/2025 4:05 AM EDT US EXTREMITY LIMITED MSK OR SOFT TISSUE Routine 01/16/2025 9:34 AM EDT PROTHROMBIN TIME(PT) / INR STAT 01/16/2025 4:31 AM EDT CBC W/O DIFFERENTIAL STAT 01/16/2025 4:31 AM EDT BASIC METABOLIC PANEL, PLASMA STAT 01/16/2025 4:[address] TIBIA FIBULA LEFT W IV CONTRAST STAT 01/16/2025 1:09 AM EDT BLOOD CULTURE (AEROBIC/ANAEROBIC SET) STAT 01/16/2025 12:24 AM EDT XR CHEST 1 VIEW STAT 01/15/2025 11:21 PM EDT XR TIBIA FIBULA LEFT 2+ VIEWS STAT 01/15/2025 11:21 PM EDT XR KNEE LEFT 3 VIEWS STAT 01/15/2025 11:21 PM EDT TYPE AND SCREEN Routine 01/15/2025 10:51 PM EDT ECG ADULT STAT 01/15/2025 10:46 PM EDT BLOOD CULTURE (AEROBIC/ANAEROBIC SET) STAT 01/15/2025 10:11 PM EDT SEDIMENTATION RATE, AUTOMATED STAT 01/15/2025 10:11 PM EDT PROTHROMBIN TIME(PT) / INR STAT 01/15/2025 10:11 PM EDT CBC WITH AUTO DIFFERENTIAL STAT 01/15/2025 10:11 PM EDT C-REACTIVE PROTEIN, PLASMA STAT 01/15/2025 10:11 PM EDT BLOOD GAS PANEL, VENOUS STAT 01/15/2025 10:11 PM EDT COMPREHENSIVE METABOLIC PANEL, PLASMA STAT 01/15/2025 10:11 PM EDT documented in this encounter Results * (ABNORMAL) C-reactive protein (01/22/2025 5:04 AM EDT) CRP, Plasma 44.4(H) <=8.0 mg/L 01/22/2025 9:25 AM EDT [facility] Blood Venous blood specimen / Unknown Venipuncture / Unknown 01/22/2025 5:04 AM EDT 01/22/2025 5:31 AM EDT Narrative [facility] - 01/22/2025 9:25 AM EDT This CRP test is appropriate for assessment of infection, systemic inflammation and/or tissue injury. To assess cardiovascular disease risk order high sensitivity CRP (CRPH). us Michelle ZULUAGA LAB BLOOD ORDERABLES Final Res ult [facility] [address] [place] [address] * Lavender Top (01/22/2025 5:04 AM EDT) Extra Hold for add-ons 01/22/2025 8:02 AM EDT [facility] Comment:Auto resulted. Blood Venous blood specimen / Unknown 01/22/2025 5:04 AM EDT 01/22/2025 5:30 AM EDT us Sachin Garza MD LAB BLOOD ORDERABLES Final R esult [facility] [address] [place] [address] * (ABNORMAL) Basic metabolic panel (01/22/2025 5:04 AM EDT) Glucose, Plasma 91 74 - 99 mg/dL 01/22/2025 6:01 AM EDT [facility] BUN, Plasma 33(H) 7 - 21 mg/dL 01/22/2025 6:01 AM EDT [facility] Creatinine, Plasma 1.47(H) 0.70 - 1.20 mg/dL 01/22/2025 6:01 AM EDT [facility] BUN/Creatinine Ratio 22 01/22/2025 6:01 AM EDT [facility] Sodium, Plasma 137 136 - 145 mmol/L 01/22/2025 6:01 AM EDT [facility] Potassium, Plasma 5.3(H) 3.6 - 4.9 mmol/L 01/22/2025 6:01 AM EDT [facility] Chloride, Plasma 100 97 - 107 mmol/L 01/22/2025 6:01 AM EDT [facility] CO2, Plasma 28 22 - 29 mmol/L 01/22/2025 6:01 AM EDT [facility] Anion Gap 9 6 - 16 mmol/L 01/22/2025 6:01 AM EDT [facility] Total Calcium, Plasma 9.6 8.9 - 10.2 mg/dL 01/22/2025 6:01 AM EDT [facility] eGFRcr 63.4 mL/min/1.7 3m*2 01/22/2025 6:01 AM EDT [facility] Comment:Reported eGFRcr in m L/min/1.73m2 is based the CKD-EPI 2020 equation that does not use a race coefficient. Blood Venous blood specimen / Unknown Venipuncture / Unknown 01/22/2025 5:04 AM EDT 01/22/2025 5:31 AM EDT us Sachin Garza MD LAB BLOOD ORDERABLES Final R esult [facility] [address] [place] [address] * (ABNORMAL) CBC (01/21/2025 7:29 PM EDT) WBC Count 10.10 3.70 - 10.30 10*3/uL LAB HEMATOLOGY METHOD 01/21/2025 7:42 PM EDT [facility] RBC Count 3.82(L) 4.60 - 6.10 10*6/uL LAB HEMATOLOGY METHOD 01/21/2025 7:42 PM EDT [facility] HGB 11.5(L) 13.7 - 17.5 g/dL LAB HEMATOLOGY METHOD 01/21/2025 7:42 PM EDT [facility] HCT 35.2(L) 40.0 - 51.0 % LAB HEMATOLOGY METHOD 01/21/2025 7:42 PM EDT [facility] Platelet Count 446(H) 155 - 369 10*3/uL LAB HEMATOLOGY METHOD 01/21/2025 7:42 PM EDT [facility] MCV 92 79 - 98 fL LAB HEMATOLOGY METHOD 01/21/2025 7:42 PM EDT [facility] MCH 30.1 26.0 - 32.0 pg LAB HEMATOLOGY METHOD 01/21/2025 7:42 PM EDT [facility] MCHC 32.7 30.7 - 35.5 g/dL LAB HEMATOLOGY METHOD 01/21/2025 7:42 PM EDT [facility] RDW 13.1 11.5 - 14.5 % LAB HEMATOLOGY METHOD 01/21/2025 7:42 PM EDT [facility] MPV 9.1 8.8 - 12.5 fL LAB HEMATOLOGY METHOD 01/21/2025 7:42 PM EDT [facility] nRBC 0.0 <=0.0 per 100 WBCs LAB HEMATOLOGY METHOD 01/21/2025 7:42 PM EDT [facility] Blood Venous blood specimen / Unknown Venipuncture / Unknown 01/21/2025 7:29 PM EDT 01/21/2025 7:35 PM EDT us Sachin Garza MD LAB BLOOD ORDERABLES Final R esult [facility] [address] [place] [address] * (ABNORMAL) Basic metabolic panel (01/21/2025 7:29 PM EDT) Glucose, Plasma 122(H) 74 - 99 mg/dL 01/21/2025 8:03 PM EDT [facility] BUN, Plasma 31(H) 7 - 21 mg/dL 01/21/2025 8:03 PM EDT [facility] Creatinine, Plasma 1.64(H) 0.70 - 1.20 mg/dL 01/21/2025 8:03 PM EDT [facility] BUN/Creatinine Ratio 19 01/21/2025 8:03 PM EDT [facility] Sodium, Plasma 139 136 - 145 mmol/L 01/21/2025 8:03 PM EDT [facility] Potassium, Plasma 4.6 3.6 - 4.9 mmol/L 01/21/2025 8:03 PM EDT [facility] Chloride, Plasma 101 97 - 107 mmol/L 01/21/2025 8:03 PM EDT [facility] CO2, Plasma 26 22 - 29 mmol/L 01/21/2025 8:03 PM EDT [facility] Anion Gap 12 6 - 16 mmol/L 01/21/2025 8:03 PM EDT [facility] Total Calcium, Plasma 9.1 8.9 - 10.2 mg/dL 01/21/2025 8:03 PM EDT [facility] eGFRcr 55.6 mL/min/1.7 3m*2 01/21/2025 8:03 PM EDT [facility] Comment:Reported eGFRcr in m L/min/1.73m2 is based the CKD-EPI 2020 equation that does not use a race coefficient. Blood Venous blood specimen / Unknown Venipuncture / Unknown 01/21/2025 7:29 PM EDT 01/21/2025 7:35 PM EDT Sachin Garza MD LAB BLOOD ORDERABLES Final R esult [facility] [address] [place] [address] * PICC SINGLE LUMEN (SMARTFORM LINK) (01/21/2025 7:01 PM EDT) Narrative Norma Miranda RN - 01/21/2025 7:01 PM EDT Norma Miranda RN 01/21/2025 7:19 PM Insert PICC line Date/Time: 01/21/2025 7:01 PM Performed by: Norma Miranda RN Authorized by: Sachin Garza MD Bruning Protocol: Verbal consent obtained?: Yes Written consent obtained?: Yes Risks and benefits: Risks, benefits and alternatives were discussed Consent given by: Patient Patient states understanding of procedure being performed: Yes Patient's understanding of procedure matches consent: Yes Procedure consent matches procedure scheduled: Yes Relevant documents present and verified: Yes Test results available and properly labeled: Yes Site marked: Yes Imaging studies available: Yes Patient identity confirmed: Verbally with patient and arm band Time out: Immediately prior to the procedure a time out was called Indications: Vascular access (Daptomycin 01/20/25 - 03/03/25) Local anesthetic: Lidocaine 1% without epinephrine (2.5mL) Sedation: Patient sedated: No Preparation: Skin prepped with 2% chlorhexidine Skin prep agent dried: Skin prep agent completely dried prior to procedure Sterile barriers: All five maximal sterile barriers used - gloves, gown, cap, mask and large sterile sheet Hand hygiene: Hand hygiene performed prior to catheter insertion Orientation: Left Location (Adult): Basilic vein Site selection rationale: Patient preference Patient position: Supine Catheter Lot #: [id number] Catheter hospice nurse practitioner: Bard PowerPICC Solo Catheter placed: Single lumen Catheter size: 4 Fr Catheter trimmed length: 52 Catheter threaded length: 52 Vein placed in: SVC Catheter cm indwellin Catheter cm outside: 52 Placement confirmed by: Tram 3CG technology Pre-procedure: Landmarks identified Ultrasound guidance: Yes Sterile ultrasound techniques: Sterile gel and sterile probe covers were used Number of attempts: 1 Post-procedure: Adhesive securement device and sterile access caps placed on each lumen Dressing applied: CHG tegaderm Assessment: Blood return through all ports Complications: None. Patient tolerated the procedure well with no immediate complications.: Yes PICC kit educational material was given to the patient.: Yes Comments: Pertinent ultrasound and/or 3CG images sent to PACS. Result [facility] Sachin Garza MD IV THERAPY ORDERABLES Final Result * Abscess Culture and Gram Stain (01/20/2025 10:42 AM EDT) Culture No growth at day 4 2024 7:15 AM EDT [facility] Gram Stain Result No polymorphonuclear leukocytes seen 01/25/2025 7:15 AM EDT [facility] Gram Stain Result No organisms seen 01/25/2025 7:15 AM EDT [facility] Swab Structure of left knee region / Unknown 01/20/2025 10:42 AM EDT 01/20/2025 11:25 AM EDT Comment:Pre-op diagnosis: Closed fracture of left tibial plateau with routine healing, subsequent encounter [S82.966D] Result [facility] Bob Nava MD LAB MICROBIOLOGY - GENERAL O RDERABLES Final Result Performing Organization Address [facility] Co de Phone Number [facility] [address] [place] [address] * Fungal Culture, Routine (01/20/2025 10:42 AM EDT) Culture No Fungal Growth at 1 Week 01/28/2025 7:34 AM EDT [facility] Swab Structure of left knee region / Unknown 01/20/2025 10:42 AM EDT 01/20/2025 11:25 AM EDT Comment:Pre-op diagnosis: Closed fracture of left tibial plateau with routine healing, subsequent encounter [M61.927D] us Bob Nava MD LAB MICROBIOLOGY - GENERAL O RDERABLES Final Result Performing Organization Address [facility] Co de Phone Number [facility] [address] [place] [address] * Anaerobic Culture (01/20/2025 10:42 AM EDT) Culture No growth at day 4 01/28/2025 7:09 AM EDT [facility] Swab Structure of left knee region / Unknown 01/20/2025 10:42 AM EDT 01/20/2025 11:25 AM EDT Comment:Pre-op diagnosis: Closed fracture of left tibial plateau with routine healing, subsequent encounter [S82.142D] us Bob Nava MD LAB MICROBIOLOGY - GENERAL O RDERABLES Final Result [facility] [address] [place] [address] * Fungal Culture, Tissue and SYEDA (01/20/2025 10:30 AM EDT) Culture Reading Mycological 4 Weeks No Fungal Growth at 4 Weeks 02/18/2025 6:03 AM EDT [facility] SYEDA No fungal elements seen 02/18/2025 6:03 AM EDT [facility] Tissue Structure of left knee region / Unknown 01/20/2025 10:30 AM EDT 01/20/2025 11:23 AM EDT Comment:Pre-op diagnosis: Closed fracture of left tibial plateau with routine healing, subsequent encounter [S82.142D] us Bob Nava MD LAB MICROBIOLOGY - GENERAL O RDERABLES Final Result [facility] [address] [place] [address] * AFB Culture, Non Respiratory Source and Acid Fast Stain (01/20/2025 10:30 AM EDT) AFB Culture No Mycobacterial Growth at 6 Weeks 03/04/2025 4:02 PM EDT [facility] Acid Fast Stain No acid fast bacilli seen 03/04/2025 4:02 PM EDT [facility] Tissue Structure of left knee region / Unknown 01/20/2025 10:30 AM EDT 01/20/2025 11:23 AM EDT Comment:Pre-op diagnosis: Closed fracture of left tibial plateau with routine healing, subsequent encounter [S82.142D] us Bob Nava MD LAB MICROBIOLOGY - GENERAL O RDERABLES Final Result Performing Organization Address City/[facility]/ZIP Co de Phone Number [facility] [address] [place] [address] * Tissue Culture and Gram Stain (01/20/2025 10:30 AM EDT) Culture No growth at day 4 2024 7:15 AM EDT [facility] Gram Stain Result No polymorphonuclear leukocytes seen 01/25/2025 7:15 AM EDT [facility] Gram Stain Result No organisms seen 01/25/2025 7:15 AM EDT [facility] Tissue Structure of left knee region / Unknown 01/20/2025 10:30 AM EDT 01/20/2025 11:23 AM EDT Comment:Pre-op diagnosis: Closed fracture of left tibial plateau with routine healing, subsequent encounter [S82.142D] us Bob Nava MD LAB MICROBIOLOGY - GENERAL O RDERABLES Final Result Performing Organization Address [facility] Co de Phone Number [facility] [address] [place] [address] * Anaerobic Culture (01/20/2025 10:30 AM EDT) Culture No growth at day 4 01/28/2025 7:09 AM EDT [facility] Tissue Structure of left knee region / Unknown 01/20/2025 10:30 AM EDT 01/20/2025 11:23 AM EDT Comment:Pre-op diagnosis: Closed fracture of left tibial plateau with routine healing, subsequent encounter [S82.142D] us Bob Naav MD LAB MICROBIOLOGY - GENERAL O RDERABLES Final Result Performing Organization Address City/[facility]/ZIP Co de Phone Number [facility] [address] [place] [address] * Fungal Culture, Tissue and SYEDA (01/20/2025 10:27 AM EDT) Culture Reading Mycological 4 Weeks No Fungal Growth at 4 Weeks 02/18/2025 6:03 AM EDT [facility] SYEDA No fungal elements seen 02/18/2025 6:03 AM EDT [facility] Tissue Structure of left knee region / Unknown 01/20/2025 10:27 AM EDT 01/20/2025 11:24 AM EDT Comment:Pre-op diagnosis: Closed fracture of left tibial plateau with routine healing, subsequent encounter [S82.142D] us Bob Nava MD LAB MICROBIOLOGY - GENERAL O RDERABLES Final Result [facility] [address] [place] [address] * AFB Culture, Non Respiratory Source and Acid Fast Stain (01/20/2025 10:27 AM EDT) AFB Culture No Mycobacterial Growth at 6 Weeks 03/04/2025 4:15 PM EDT [facility] Acid Fast Stain No acid fast bacilli seen 03/04/2025 4:15 PM EDT [facility] Tissue Structure of left knee region / Unknown 01/20/2025 10:27 AM EDT 01/20/2025 11:24 AM EDT Comment:Pre-op diagnosis: Closed fracture of left tibial plateau with routine healing, subsequent encounter [S82.142D] us Bob Nava MD LAB MICROBIOLOGY - GENERAL O RDERABLES Final Result [facility] [address] [place] [address] * Tissue Culture and Gram Stain (01/20/2025 10:27 AM EDT) Culture No growth at day 4 2024 7:15 AM EDT [facility] Gram Stain Result No organisms seen 01/25/2025 7:15 AM EDT [facility] Gram Stain Result No polymorphonuclear leukocytes seen 01/25/2025 7:15 AM EDT [facility] Tissue Structure of left knee region / Unknown 01/20/2025 10:27 AM EDT 01/20/2025 11:24 AM EDT Comment:Pre-op diagnosis: Closed fracture of left tibial plateau with routine healing, subsequent encounter [S82.142D] us Bob Nava MD LAB MICROBIOLOGY - GENERAL O RDERABLES Final Result Performing Organization Address City/[facility]/ZIP Co de Phone Number [facility] [address] [place] [address] * Anaerobic Culture (01/20/2025 10:27 AM EDT) Culture No growth at day 4 01/28/2025 7:09 AM EDT [facility] Tissue Structure of left knee region / Unknown 01/20/2025 10:27 AM EDT 01/20/2025 11:24 AM EDT Comment:Pre-op diagnosis: Closed fracture of left tibial plateau with routine healing, subsequent encounter [S82.142D] Bob Nava MD LAB MICROBIOLOGY - GENERAL O RDERABLES Final Result Performing Organization Address [facility] Co de Phone Number [facility] [address] [place] [address] * (ABNORMAL) Creatine Kinase (CK), Total (01/20/2025 3:40 AM EDT) Creatine Kinase, Plasma 18(L) 49 - 320 U/L 01/21/2025 12:17 PM EDT [facility] Blood Venous blood specimen / Unknown Venipuncture / Unknown 01/20/2025 3:40 AM EDT 01/20/2025 3:57 AM EDT Sachin Garza MD LAB BLOOD ORDERABLES Final R esult Performing Organization Address City/[facility]/ZIP Co de Phone Number [facility] [address] [place] [address] * Vancomycin, random (01/20/2025 3:40 AM EDT) Vancomycin, Random, Plasma 20.1 ug/mL 01/20/2025 4:51 AM EDT [facility] Blood Venous blood specimen / Unknown Venipuncture / Unknown 01/20/2025 3:40 AM EDT 01/20/2025 3:57 AM EDT us Sachin Garza MD LAB BLOOD ORDERABLES Final R esult [facility] [address] [place] [address] * Protime-INR (01/20/2025 3:40 AM EDT) Prothrombin Time 13.5 12.0 - 14.3 sec LAB COAGULATION METHOD 01/20/2025 4:17 AM EDT [facility] INR 1.0 0.9 - 1.1 LAB COAGULATION METHOD 01/20/2025 4:17 AM EDT [facility] Blood Venous blood specimen / Unknown Venipuncture / Unknown 01/20/2025 3:40 AM EDT 01/20/2025 3:56 AM EDT Narrative [facility] - 01/20/2025 4:17 AM EDT OPTIMAL INR RANGES FOR PATIENT ON ORAL ANTICOAGULANT THERAPY Prevention of venous thromboembolism INR 2.0 to 3.0 In patients with heart disease: Atrial fibrillation INR 2.0 to 3.0 Valvular heart disease INR 2.0 to 3.0 Tissue heart valves INR 2.0 to 3.0 Mechanical prosthetic valves INR 2.5 to 3.5 Prevention of recurrent ND INR 2.5 to 3.5 us Sachin Garza MD LAB BLOOD ORDERABLES Final R esult [facility] [address] [place] [address] * (ABNORMAL) Basic metabolic panel (01/20/2025 3:40 AM EDT) Glucose, Plasma 87 74 - 99 mg/dL 01/20/2025 4:51 AM EDT [facility] BUN, Plasma 30(H) 7 - 21 mg/dL 01/20/2025 4:51 AM EDT [facility] Creatinine, Plasma 1.59(H) 0.70 - 1.20 mg/dL 01/20/2025 4:51 AM EDT [facility] BUN/Creatinine Ratio 19 01/20/2025 4:51 AM EDT [facility] Sodium, Plasma 142 136 - 145 mmol/L 01/20/2025 4:51 AM EDT [facility] Potassium, Plasma 4.7 3.6 - 4.9 mmol/L 01/20/2025 4:51 AM EDT [facility] Chloride, Plasma 104 97 - 107 mmol/L 01/20/2025 4:51 AM EDT [facility] CO2, Plasma 26 22 - 29 mmol/L 01/20/2025 4:51 AM EDT [facility] Anion Gap 12 6 - 16 mmol/L 01/20/2025 4:51 AM EDT [facility] Total Calcium, Plasma 8.9 8.9 - 10.2 mg/dL 01/20/2025 4:51 AM EDT [facility] eGFRcr 57.7 mL/min/1.7 3m*2 01/20/2025 4:51 AM EDT [facility] Comment:Reported eGFRcr in m L/min/1.73m2 is based the CKD-EPI 2020 equation that does not use a race coefficient. Blood Venous blood specimen / Unknown Venipuncture / Unknown 01/20/2025 3:40 AM EDT 01/20/2025 3:57 AM EDT us Sachin Garza MD LAB BLOOD ORDERABLES Final R esult [facility] [address] [place] [address] * (ABNORMAL) CBC W/O Differential (01/20/2025 3:40 AM EDT) WBC Count 8.11 3.70 - 10.30 10*3/uL LAB HEMATOLOGY METHOD 01/20/2025 4:04 AM EDT [facility] RBC Count 3.64(L) 4.60 - 6.10 10*6/uL LAB HEMATOLOGY METHOD 01/20/2025 4:04 AM EDT [facility] HGB 10.7(L) 13.7 - 17.5 g/dL LAB HEMATOLOGY METHOD 01/20/2025 4:04 AM EDT [facility] HCT 34.5(L) 40.0 - 51.0 % LAB HEMATOLOGY METHOD 01/20/2025 4:04 AM EDT [facility] Platelet Count 399(H) 155 - 369 10*3/uL LAB HEMATOLOGY METHOD 01/20/2025 4:04 AM EDT [facility] MCV 95 79 - 98 fL LAB HEMATOLOGY METHOD 01/20/2025 4:04 AM EDT [facility] MCH 29.4 26.0 - 32.0 pg LAB HEMATOLOGY METHOD 01/20/2025 4:04 AM EDT [facility] MCHC 31.0 30.7 - 35.5 g/dL LAB HEMATOLOGY METHOD 01/20/2025 4:04 AM EDT [facility] RDW 13.1 11.5 - 14.5 % LAB HEMATOLOGY METHOD 01/20/2025 4:04 AM EDT [facility] MPV 9.5 8.8 - 12.5 fL LAB HEMATOLOGY METHOD 01/20/2025 4:04 AM EDT [facility] nRBC 0.0 <=0.0 per 100 WBCs LAB HEMATOLOGY METHOD 01/20/2025 4:04 AM EDT [facility] Blood Venous blood specimen / Unknown Venipuncture / Unknown 01/20/2025 3:40 AM EDT 01/20/2025 3:56 AM EDT us Sachin Garza MD LAB BLOOD ORDERABLES Final R esult [facility] [address] [place] [address] * Vancomycin, random (01/19/2025 11:48 AM EDT) Vancomycin, Random, Plasma 22.9 ug/mL 01/19/2025 1:05 PM EDT [facility] Blood Venous blood specimen / Unknown Venipuncture / Unknown 01/19/2025 11:48 AM EDT 01/19/2025 11:50 AM EDT us Sachin Garza MD LAB BLOOD ORDERABLES Final R esult [facility] [address] [place] [address] * (ABNORMAL) Basic Metabolic Panel, Plasma (01/18/2025 11:54 PM EDT) Glucose, Plasma 134(H) 74 - 99 mg/dL 01/19/2025 12:45 AM EDT [facility] BUN, Plasma 24(H) 7 - 21 mg/dL 01/19/2025 12:45 AM EDT [facility] Creatinine, Plasma 1.34(H) 0.70 - 1.20 mg/dL 01/19/2025 12:45 AM EDT [facility] BUN/Creatinine Ratio 18 01/19/2025 12:45 AM EDT [facility] Sodium, Plasma 137 136 - 145 mmol/L 01/19/2025 12:45 AM EDT [facility] Potassium, Plasma 4.7 3.6 - 4.9 mmol/L 01/19/2025 12:45 AM EDT [facility] Chloride, Plasma 100 97 - 107 mmol/L 01/19/2025 12:45 AM EDT [facility] CO2, Plasma 24 22 - 29 mmol/L 01/19/2025 12:45 AM EDT [facility] Anion Gap 13 6 - 16 mmol/L 01/19/2025 12:45 AM EDT [facility] Total Calcium, Plasma 9.3 8.9 - 10.2 mg/dL 01/19/2025 12:45 AM EDT [facility] eGFRcr 70.8 mL/min/1.7 3m*2 01/19/2025 12:45 AM EDT [facility] Comment:Reported eGFRcr in m L/min/1.73m2 is based the CKD-EPI 2020 equation that does not use a race coefficient. Blood Venous blood specimen / Unknown Venipuncture / Unknown 01/18/2025 11:54 PM EDT 01/19/2025 12:16 AM EDT Sachin Garza MD LAB BLOOD ORDERABLES Final R esult [facility] [address] [place] [address] * (ABNORMAL) CBC W/O Differential (01/18/2025 11:54 PM EDT) WBC Count 11.85(H) 3.70 - 10.30 10*3/uL LAB HEMATOLOGY METHOD 01/19/2025 12:20 AM EDT [facility] RBC Count 3.76(L) 4.60 - 6.10 10*6/uL LAB HEMATOLOGY METHOD 01/19/2025 12:20 AM EDT [facility] HGB 11.3(L) 13.7 - 17.5 g/dL LAB HEMATOLOGY METHOD 01/19/2025 12:20 AM EDT [facility] HCT 34.2(L) 40.0 - 51.0 % LAB HEMATOLOGY METHOD 01/19/2025 12:20 AM EDT [facility] Platelet Count 394(H) 155 - 369 10*3/uL LAB HEMATOLOGY METHOD 01/19/2025 12:20 AM EDT [facility] MCV 91 79 - 98 fL LAB HEMATOLOGY METHOD 01/19/2025 12:20 AM EDT [facility] MCH 30.1 26.0 - 32.0 pg LAB HEMATOLOGY METHOD 01/19/2025 12:20 AM EDT [facility] MCHC 33.0 30.7 - 35.5 g/dL LAB HEMATOLOGY METHOD 01/19/2025 12:20 AM EDT [facility] RDW 12.9 11.5 - 14.5 % LAB HEMATOLOGY METHOD 01/19/2025 12:20 AM EDT [facility] MPV 9.5 8.8 - 12.5 fL LAB HEMATOLOGY METHOD 01/19/2025 12:20 AM EDT [facility] nRBC 0.0 <=0.0 per 100 WBCs LAB HEMATOLOGY METHOD 01/19/2025 12:20 AM EDT [facility] Blood Venous blood specimen / Unknown Venipuncture / Unknown 01/18/2025 11:54 PM EDT 01/19/2025 12:13 AM EDT Sachin Garza MD LAB BLOOD ORDERABLES Final R esult Performing Organization Address City/[facility]/ZIP Co de Phone Number [facility] [address] [place] [address] * AFB Culture, Non Respiratory Source and Acid Fast Stain (01/18/2025 3:28 PM EDT) AFB Culture No Mycobacterial Growth at 6 Weeks 03/02/2025 8:42 AM EDT [facility] Acid Fast Stain No acid fast bacilli seen 03/02/2025 8:42 AM EDT [facility] Joint Fluid Topography unknown / Unknown Non-blood Collection / Unknown 01/18/2025 3:28 PM EDT 01/18/2025 3:28 PM EDT us Sachin Garza MD LAB MICROBIOLOGY - GENERAL O RDERABLES Final Result Performing Organization Address [facility] Co de Phone Number [facility] [address] [place] [address] * Fungal Culture, Sterile Body Fluid (NOT CSF) and SYEDA (01/18/2025 3:28 PM EDT) Culture No Fungal Growth at 3 Weeks 02/10/2025 8:37 AM EDT [facility] SYEDA No fungal elements seen 02/10/2025 8:37 AM EDT [facility] Joint Fluid Topography unknown / Unknown Non-blood Collection / Unknown 01/18/2025 3:28 PM EDT 01/18/2025 3:28 PM EDT Sachin Garza MD LAB MICROBIOLOGY - GENERAL O RDERABLES Final Result Performing Organization Address City/[facility]/ZIP Co de Phone Number [facility] [address] [place] [address] * Anaerobic Culture (01/18/2025 3:28 PM EDT) Culture No anaerobes isolated 01/23/2025 7:50 AM EDT [facility] Joint Fluid Topography unknown / Unknown Non-blood Collection / Unknown 01/18/2025 3:28 PM EDT 01/18/2025 3:28 PM EDT us Sachin Garza MD LAB MICROBIOLOGY - GENERAL O RDERABLES Final Result Performing Organization Address City/[facility]/ZIP Co de Phone Number [facility] [address] [place] [address] * (ABNORMAL) Body Fluid Culture and Gram Stain (01/18/2025 3:28 PM EDT) Culture Heavy Growth 01/20/2025 8:34 AM EDT [facility] Culture Methicillin-Resista nt Staphylococcus aureus(AA) 01/20/2025 8:34 AM EDT [facility] Comment: For susceptibility results refer to: - [id number] The organism value for this result has been updated. These results have been appended to the previously preliminary verified report. Edited result: Previously reported as Staphylococcus aureus on 01/19/2025 at 0933 EDT. Staphylococcus aureus has been updated to reportable. Gram Stain Result Numerous Polymorphonuclear leukocytes 01/20/2025 8:34 AM EDT [facility] Gram Stain Result No organisms seen 01/20/2025 8:34 AM EDT [facility] Joint Fluid Topography unknown / Unknown Non-blood Collection / Unknown 01/18/2025 3:28 PM EDT 01/18/2025 3:28 PM EDT us Sachin Garza MD LAB MICROBIOLOGY - GENERAL O RDERABLES Final Result Performing Organization Address City/[facility]/ZIP Co de Phone Number [facility] [address] [place] [address] * Body fluid, cytospin, pathologist interpretation (01/18/2025 3:01 PM EDT) Specimen Type Joint Fluid LAB HEMATOLOGY METHOD 01/20/2025 4:29 PM EDT [facility] Specimen Source, Body Fluid Knee, Left LAB HEMATOLOGY METHOD 01/20/2025 4:29 PM EDT [facility] Clinical Diagnosis, Body Fluid Left lower extremity cellulitis LAB HEMATOLOGY METHOD 01/20/2025 4:29 PM EDT [facility] Interpretation , Body Fluid Bloody specimen Acute and chronic inflammatory cells Correlation with microbiology studies recommended A resident was involved in the service. I attest I examined the relevant preparations for the specimens and confirmed the diagnosis or interpretation. 01/20/2025 4:29 PM EDT [facility] Pathologist Signature, Body Fluid 01/20/2025 4:29 PM EDT [facility] Comment:Reviewed by: Stephanie conti MD LAB CP ASR DISCLAIMER Yes 01/20/2025 4:29 PM EDT [facility] Joint Fluid Structure of left knee region / Unknown 01/18/2025 3:01 PM EDT 01/18/2025 3:28 PM EDT us Sachin Garza MD LAB BODY FLUIDS AND STOOLS O RDERABLES Final Result Performing Organization Address City/[facility]/ZIP Co de Phone Number [facility] [address] [place] [address] * Joint Fluid Crystals (01/18/2025 3:01 PM EDT) Crystals, Joint Fluid No Crystals Seen No Crystals Present 01/18/2025 5:28 PM EDT [facility] Joint Fluid Structure of left knee region / Unknown 01/18/2025 3:01 PM EDT 01/18/2025 3:28 PM EDT us Sachin Garza MD LAB BODY FLUIDS AND STOOLS O RDERABLES Final Result Performing Organization Address City/[facility]/ZIP Co de Phone Number [facility] [address] [place] [address] * (ABNORMAL) Body Fluid Cell Count w/ Diff (01/18/2025 3:01 PM EDT) Color, Body fluid Red LAB HEMATOLOGY METHOD 01/18/2025 11:05 PM EDT [facility] Appearance, Body fluid Cloudy(A) LAB HEMATOLOGY METHOD 01/18/2025 11:05 PM EDT [facility] Volume, Body fluid 3.5 cc LAB HEMATOLOGY METHOD 01/18/2025 11:05 PM EDT [facility] Fluid Container Specimen received in EDTA tube LAB HEMATOLOGY METHOD 01/18/2025 11:05 PM EDT [facility] Red Blood Cell Count, Body fluid 299,000 uL LAB HEMATOLOGY METHOD 01/18/2025 11:05 PM EDT [facility] Total Nucleated Cell Count, Body fluid 873 uL LAB HEMATOLOGY METHOD 01/18/2025 11:05 PM EDT [facility] Neutrophils %, Body fluid 17 % LAB HEMATOLOGY METHOD 01/18/2025 11:05 PM EDT [facility] Lymphocytes %, Body fluid 55 % LAB HEMATOLOGY METHOD 01/18/2025 11:05 PM EDT [facility] Monocytes/Macro phages %, Body fluid 27 % LAB HEMATOLOGY METHOD 01/18/2025 11:05 PM EDT [facility] Eosinophils %, Body fluid 1 % LAB HEMATOLOGY METHOD 01/18/2025 11:05 PM EDT [facility] Lining/Mesothel ial Cells %, Body fluid 0 % LAB HEMATOLOGY METHOD 01/18/2025 11:05 PM EDT [facility] Neutrophils Absolute (PMN), Body fluid 148 uL LAB HEMATOLOGY METHOD 01/18/2025 11:05 PM EDT [facility] Lymphocytes Absolute, Body fluid 480 uL LAB HEMATOLOGY METHOD 01/18/2025 11:05 PM EDT [facility] Monocytes/Macro phages Absolute, Body fluid 236 uL LAB HEMATOLOGY METHOD 01/18/2025 11:05 PM EDT [facility] Eosinophils Absolute, Body fluid 9 uL LAB HEMATOLOGY METHOD 01/18/2025 11:05 PM EDT [facility] Basophils Absolute, Body fluid 0 uL LAB HEMATOLOGY METHOD 01/18/2025 11:05 PM EDT [facility] Lining/Mesothel ial Cells Absolute, Body fluid 0 uL LAB HEMATOLOGY METHOD 01/18/2025 11:05 PM EDT [facility] Comment, Body fluid None LAB HEMATOLOGY METHOD 01/18/2025 11:05 PM EDT [facility] Comment:This is an appended report. These results have been appended to a previously preliminary verified report. Basophils %, Body fluid 0 % LAB HEMATOLOGY METHOD 01/18/2025 11:05 PM EDT [facility] Joint Fluid Structure of left knee region / Unknown 01/18/2025 3:01 PM EDT 01/18/2025 3:28 PM EDT us Sachin Garza MD LAB BODY FLUIDS AND STOOLS ORDERABLES NO SPECIMEN TYPE/SOURCE Final Result Performing Organization Address [facility] Co de Phone Number [facility] [address] [place] [address] * Body Fluid Culture and Gram Stain (01/18/2025 12:17 PM EDT) Culture No growth at day 4 2024 11:06 AM EDT [facility] Gram Stain Result No polymorphonuclear leukocytes seen 01/21/2025 11:06 AM EDT [facility] Gram Stain Result No organisms seen 01/21/2025 11:06 AM EDT [facility] Joint Fluid Synovial fluid specimen / Unknown Non-blood Collection / Unknown 01/18/2025 12:17 PM EDT 01/18/2025 3:24 PM EDT Comment:Pre-op diagnosis: Cellulitis of left lower extremity [L03.116] Dwaine Das DO LAB MICROBIOLOGY - GENERAL ORDERABLES Final Result Performing Organization Address City/[facility]/ZIP Co de Phone Number [facility] [address] [place] [address] * Joint Infection Panel by PCR (01/18/2025 12:17 PM EDT) Anaerococcus prevotii/vaginalis PCR Result Not Detected Not Detected 01/18/2025 5:28 PM EDT [facility] Clostridium perfringens PCR Result Not Detected Not Detected 01/18/2025 5:28 PM EDT [facility] Cutibacterium avidum/granulosum PCR Result Not Detected Not Detected 01/18/2025 5:28 PM EDT [facility] Enterococcus faecalis PCR Result Not Detected Not Detected 01/18/2025 5:28 PM EDT [facility] Enterococcus faecium PCR Result Not Detected Not Detected 01/18/2025 5:28 PM EDT [facility] Finegoldia magna PCR Result Not Detected Not Detected 01/18/2025 5:28 PM EDT [facility] Parvimonas micra PCR Result Not Detected Not Detected 01/18/2025 5:28 PM EDT [facility] Peptoniphilus PCR Result Not Detected Not Detected 01/18/2025 5:28 PM EDT [facility] Peptostreptococcus anaerobius PCR Result Not Detected Not Detected 01/18/2025 5:28 PM EDT [facility] Staphylococcus aureus PCR Result Not Detected Not Detected 01/18/2025 5:28 PM EDT [facility] Staphylococcus lugdunensis PCR Result Not Detected Not Detected 01/18/2025 5:28 PM EDT [facility] Streptococcus spp PCR Result Not Detected Not Detected 01/18/2025 5:28 PM EDT [facility] Streptococcus agalactiae PCR Result Not Detected Not Detected 01/18/2025 5:28 PM EDT [facility] Streptococcus pneumoniae PCR Result Not Detected Not Detected 01/18/2025 5:28 PM EDT [facility] Streptococcus pyogenes PCR Result Not Detected Not Detected 01/18/2025 5:28 PM EDT [facility] Bacteroides fragilis PCR Result Not Detected Not Detected 01/18/2025 5:28 PM EDT [facility] Citrobacter PCR Result Not Detected Not Detected 01/18/2025 5:28 PM EDT [facility] Enterobacter cloacae complex PCR Result Not Detected Not Detected 01/18/2025 5:28 PM EDT [facility] Escherichia coli PCR Result Not Detected Not Detected 01/18/2025 5:28 PM EDT [facility] Haemophilus influenzae PCR Result Not Detected Not Detected 01/18/2025 5:28 PM EDT [facility] Kingella kingae PCR Result Not Detected Not Detected 01/18/2025 5:28 PM EDT [facility] Klebsiella aerogenes PCR Result Not Detected Not Detected 01/18/2025 5:28 PM EDT [facility] Klebsiella pneumoniae group PCR Result Not Detected Not Detected 01/18/2025 5:28 PM EDT [facility] Morganella morganii PCR Result Not Detected Not Detected 01/18/2025 5:28 PM EDT [facility] Neisseria gonorrhoeae PCR Result Not Detected Not Detected 01/18/2025 5:28 PM EDT [facility] Proteus spp PCR Result Not Detected Not Detected 01/18/2025 5:28 PM EDT [facility] Pseudomonas aeruginosa PCR Result Not Detected Not Detected 01/18/2025 5:28 PM EDT [facility] Salmonella spp PCR Result Not Detected Not Detected 01/18/2025 5:28 PM EDT [facility] Serratia marcescens PCR Result Not Detected Not Detected 01/18/2025 5:28 PM EDT [facility] Nelda PCR Result Not Detected Not Detected 01/18/2025 5:28 PM EDT [facility] Nelda albicans PCR Result Not Detected Not Detected 01/18/2025 5:28 PM EDT [facility] CTXM PCR Result Not Detected Not Detected 01/18/2025 5:28 PM EDT [facility] IMP PCR Result Not Detected Not Detected 01/18/2025 5:28 PM EDT [facility] KPC PCR Result Not Detected Not Detected 01/18/2025 5:28 PM EDT [facility] mecA/C and MREJ (MRSA) PCR Result Not Detected Not Detected 01/18/2025 5:28 PM EDT [facility] NDM PCR Result Not Detected Not Detected 01/18/2025 5:28 PM EDT [facility] OXA-48-like PCR Result Not Detected Not Detected 01/18/2025 5:28 PM EDT [facility] Jarret/B PCR Result Not Detected Not Detected 01/18/2025 5:28 PM EDT [facility] VIM PCR Result Not Detected Not Detected 01/18/2025 5:28 PM EDT [facility] Joint Fluid Synovial fluid specimen / Unknown Non-blood Collection / Unknown 01/18/2025 12:17 PM EDT 01/18/2025 3:24 PM EDT Narrative [facility] - 01/18/2025 5:28 PM EDT This specimen was tested for the following analytes: Anaerococcus prevotii/vaginalis, Clostridium perfringens, Cutibacterium avidum/granulosum, Enterococcus faecalis, Enterococcus faecium, Finegoldia magna, Parviomonas micra, Peptoniphilus, Peptostreptococcus anaerobius, Staphylococcus aureus, Staphylococcus lugdunensis, Streptococcus spp., Streptococcus agalactiae, Streptococcus pneumoniae, Streptococcus pyogenes, Bacteroides fragilis, Citrobacter, Enterobacter cloacae complex, Escherichia coli, Haemophilus influenzae, Kingella kingae, Klebsiella aerogenes, Klebsiella pneumoniae group, Morganella morganii, Neisseria gonorrhoeae, Proteus spp. Pseudomonas aeruginosa, Salmonella spp., Serratia marcescens, Nleda, Nelda albicans and CTX-M, IMP, KPC, mecA/C and MREJ (MRSA), NDM, OXA-48-like, Jarret/B and VIM resistance genes. Note: Antimicrobial resistance can occur via multiple mechanisms. A Not Detected result for a genetic marker of antimicrobial resistance does not indicate susceptibility to associated antimicrobial drugs or drug classes. A Detected result for a genetic marker of antimicrobial resistance cannot be definitively linked to the microorganism(s) detected. Culture is required to obtain isolates for antimicrobial susceptibility testing and [employer] Joint Infection Panel results should be used in conjunction with culture results for the determination of susceptibility or resistance. us Sachin Garza MD LAB MICROBIOLOGY - GENERAL O RDERABLES Final Result [facility] [address] [place] [address] * Fungal Culture, Tissue and SYEDA (01/18/2025 10:00 AM EDT) Culture Reading Mycological 4 Weeks No Fungal Growth at 4 Weeks 02/16/2025 8:50 AM EDT [facility] SYEDA No fungal elements seen 02/16/2025 8:50 AM EDT [facility] Tissue Topography unknown / Unknown 01/18/2025 10:00 AM EDT 01/18/2025 3:26 PM EDT Comment:Pre-op diagnosis: Cellulitis of left lower extremity [L03.116] Dwaine Das DO LAB MICROBIOLOGY - GENERAL ORDERABLES Final Result Performing Organization Address [facility] Co de Phone Number [facility] [address] [place] [address] * AFB Culture, Non Respiratory Source and Acid Fast Stain (01/18/2025 10:00 AM EDT) AFB Culture No Mycobacterial Growth at 6 Weeks 03/02/2025 8:38 AM EDT [facility] Acid Fast Stain No acid fast bacilli seen 03/02/2025 8:38 AM EDT [facility] Tissue Topography unknown / Unknown 01/18/2025 10:00 AM EDT 01/18/2025 3:26 PM EDT Comment:Pre-op diagnosis: Cellulitis of left lower extremity [L03.116] Dwaine Das LAB MICROBIOLOGY - GENERAL ORDERABLES Final Result Performing Organization Address [facility] de Phone Number [facility] [address] [place] [address] * (ABNORMAL) Tissue Culture and Gram Stain (01/18/2025 10:00 AM EDT) Culture Heavy Growth 01/20/2025 8:34 AM EDT [facility] Culture Methicillin-Resista nt Staphylococcus aureus(AA) JOVANI 01/20/2025 8:34 AM EDT [facility] Comment: The organism value for this result has been updated. These results have been appended to the previously preliminary verified report. Edited result: Previously reported as Staphylococcus aureus on 01/19/2025 at 0914 EDT. Staphylococcus aureus has been updated to reportable. Gram Stain Result Numerous Polymorphonuclear leukocytes(A) 01/20/2025 8:34 AM EDT [facility] Gram Stain Result Rare Gram positive cocci in clusters(A) 01/20/2025 8:34 AM EDT [facility] Tissue Topography unknown / Unknown 01/18/2025 10:00 AM EDT 01/18/2025 3:26 PM EDT Comment:Pre-op diagnosis: Cellulitis of left lower extremity [L03.116] Narrative Organism Antibiotic Method Susceptibility Methicillin-Resistant Staphylococcus aureus Clindamycin JOVANI <=0.5 ug/ml: Susceptible Methicillin-Resistant Staphylococcus aureus Daptomycin JOVANI <=1 ug/ml: Susceptible Methicillin-Resistant Staphylococcus aureus Erythromycin JOVANI >4 ug/ml: Resistant Methicillin-Resistant Staphylococcus aureus Gentamicin JOVANI <=1 ug/ml: Susceptible Methicillin-Resistant Staphylococcus aureus Linezolid JOVANI 2 ug/ml: Susceptible Methicillin-Resistant Staphylococcus aureus Minocycline JOVANI <=1 ug/ml: Susceptible Methicillin-Resistant Staphylococcus aureus Oxacillin JOVANI >2 ug/ml: Resistant Methicillin-Resistant Staphylococcus aureus Penicillin G JOVANI >1 ug/ml: Resistant Methicillin-Resistant Staphylococcus aureus Tetracycline JOVANI <=0.5 ug/ml: Susceptible Methicillin-Resistant Staphylococcus aureus Trimethoprim/Sulfamethoxa zole JOVANI <=0.5/9.5 ug/ml: Susceptible Methicillin-Resistant Staphylococcus aureus Vancomycin JOVANI 1 ug/ml: [facility] - GENERAL ORDERABLES Final Result Performing Organization Address City/[facility]/ZIP Co de Phone Number [facility] [address] [place] [address] * Anaerobic Culture (01/18/2025 10:00 AM EDT) Culture No anaerobes isolated 01/23/2025 7:50 AM EDT [facility] Tissue Topography unknown / Unknown 01/18/2025 10:00 AM EDT 01/18/2025 3:26 PM EDT Comment:Pre-op diagnosis: Cellulitis of left lower extremity [L03.116] [facility] - GENERAL ORDERABLES Final Result Performing Organization Address City/[facility] Co de Phone Number [facility] [address] [place] [address] * Body fluid, cytospin, pathologist interpretation (01/18/2025 9:57 AM EDT) Specimen Type Cyst Fluid LAB HEMATOLOGY METHOD 01/20/2025 4:28 PM EDT [facility] Specimen Source, Body Fluid Other (specify site) LAB HEMATOLOGY METHOD 01/20/2025 4:28 PM EDT [facility] Clinical Diagnosis, Body Fluid Left lower extremity cyst fluid LAB HEMATOLOGY METHOD 01/20/2025 4:28 PM EDT [facility] Interpretation , Body Fluid No evidence of malignancy Bloody specimen Acute inflammatory cells Correlation with microbiology studies recommended A resident was involved in the service. I attest I examined the relevant preparations for the specimens and confirmed the diagnosis or interpretation. 01/20/2025 4:28 PM EDT [facility] Pathologist Signature, Body Fluid 01/20/2025 4:28 PM EDT [facility] Comment:Reviewed by: Stephanie conti MD LAB CP ASR DISCLAIMER Yes 01/20/2025 4:28 PM EDT [facility] Cyst Fluid Topography unknown / Unknown 01/18/2025 9:57 AM EDT 01/18/2025 3:19 PM EDT Dwaine Das DO LAB BODY FLUIDS AND STOOLS ORDERABLES Final Result [facility] [address] [place] [address] * (ABNORMAL) Body Fluid Cell Count w/ Diff (01/18/2025 9:57 AM EDT) Color, Body fluid Red LAB HEMATOLOGY METHOD 01/18/2025 7:13 PM EDT [facility] Appearance, Body fluid Cloudy(A) LAB HEMATOLOGY METHOD 01/18/2025 7:13 PM EDT [facility] Volume, Body fluid 10.0 cc LAB HEMATOLOGY METHOD 01/18/2025 7:13 PM EDT [facility] Fluid Container Specimen received in miscellaneous container LAB HEMATOLOGY METHOD 01/18/2025 7:13 PM EDT [facility] Red Blood Cell Count, Body fluid 240,000 uL LAB HEMATOLOGY METHOD 01/18/2025 7:13 PM EDT [facility] Comment:Clot present, may af fect results. Test performed by manual method. Total Nucleated Cell Count, Body fluid 83,500 uL LAB HEMATOLOGY METHOD 01/18/2025 7:13 PM EDT [facility] Comment:Clot present, may af fect results. Test performed by manual method. Neutrophils %, Body fluid 98 % LAB HEMATOLOGY METHOD 01/18/2025 7:13 PM EDT [facility] Lymphocytes %, Body fluid 2 % LAB HEMATOLOGY METHOD 01/18/2025 7:13 PM EDT [facility] Monocytes/Macr ophages %, Body fluid 0 % LAB HEMATOLOGY METHOD 01/18/2025 7:13 PM EDT [facility] Eosinophils %, Body fluid 0 % LAB HEMATOLOGY METHOD 01/18/2025 7:13 PM EDT [facility] Lining/Mesothe lial Cells %, Body fluid 0 % LAB HEMATOLOGY METHOD 01/18/2025 7:13 PM EDT [facility] Neutrophils Absolute (PMN), Body fluid 81,830 uL LAB HEMATOLOGY METHOD 01/18/2025 7:13 PM EDT [facility] Lymphocytes Absolute, Body fluid 1,670 uL LAB HEMATOLOGY METHOD 01/18/2025 7:13 PM EDT [facility] Monocytes/Macr ophages Absolute, Body fluid 0 uL LAB HEMATOLOGY METHOD 01/18/2025 7:13 PM EDT [facility] Eosinophils Absolute, Body fluid 0 uL LAB HEMATOLOGY METHOD 01/18/2025 7:13 PM EDT [facility] Basophils Absolute, Body fluid 0 uL LAB HEMATOLOGY METHOD 01/18/2025 7:13 PM EDT [facility] Lining/Mesothe lial Cells Absolute, Body fluid 0 uL LAB HEMATOLOGY METHOD 01/18/2025 7:13 PM EDT [facility] Comment, Body fluid Bacteria seen. LAB HEMATOLOGY METHOD 01/18/2025 7:13 PM EDT [facility] Basophils %, Body fluid 0 % LAB HEMATOLOGY METHOD 01/18/2025 7:13 PM EDT [facility] Cyst Fluid Topography unknown / Unknown 01/18/2025 9:57 AM EDT 01/18/2025 3:19 PM EDT Comment:Pre-op diagnosis: Cellulitis of left lower extremity [L03.116] Dwaine Das DO LAB BODY FLUIDS AND STOOLS ORDERABLES NO SPECIMEN TYPE/SOURCE Final Result [facility] [address] [place] [address] * Fungal Culture, Sterile Body Fluid (NOT CSF) and SYEDA (01/18/2025 9:57 AM EDT) Culture No Fungal Growth at 3 Weeks 02/10/2025 8:37 AM EDT [facility] SYEDA No fungal elements seen 02/10/2025 8:37 AM EDT [facility] Cyst Fluid Topography unknown / Unknown 01/18/2025 9:57 AM EDT 01/18/2025 3:26 PM EDT Comment:Pre-op diagnosis: Cellulitis of left lower extremity [L03.116] [facility] MICROBIOLOGY - GENERAL ORDERABLES Final Result Performing Organization Address [facility]/ZIP Co de Phone Number [facility] [address] [place] [address] * AFB Culture, Non Respiratory Source and Acid Fast Stain (01/18/2025 9:57 AM EDT) AFB Culture No Mycobacterial Growth at 6 Weeks 03/02/2025 8:43 AM EDT [facility] Acid Fast Stain No acid fast bacilli seen 03/02/2025 8:43 AM EDT [facility] Cyst Fluid Topography unknown / Unknown 01/18/2025 9:57 AM EDT 01/18/2025 3:26 PM EDT Comment:Pre-op diagnosis: Cellulitis of left lower extremity [L03.116] Dwaine Crow LAB MICROBIOLOGY - GENERAL ORDERABLES Final Result [facility] [address] [place] [address] * (ABNORMAL) Body Fluid Culture and Gram Stain (01/18/2025 9:57 AM EDT) Culture Heavy Growth 01/20/2025 8:34 AM EDT [facility] Culture Methicillin-Resista nt Staphylococcus aureus(AA) 01/20/2025 8:34 AM EDT [facility] Comment: For susceptibility results refer to: - [id number] The organism value for this result has been updated. These results have been appended to the previously preliminary verified report. Edited result: Previously reported as Staphylococcus aureus on 01/19/2025 at 0916 EDT. Staphylococcus aureus has been updated to reportable. Gram Stain Result Numerous Polymorphonuclear leukocytes(A) 01/20/2025 8:34 AM EDT [facility] Gram Stain Result Moderate Gram positive cocci in clusters(A) 01/20/2025 8:34 AM EDT [facility] Cyst Fluid Topography unknown / Unknown 01/18/2025 9:57 AM EDT 01/18/2025 3:26 PM EDT Comment:Pre-op diagnosis: Cellulitis of left lower extremity [L03.116] Dwaine [facility] LAB MICROBIOLOGY - GENERAL ORDERABLES Final Result Performing Organization Address [facility] de Phone Number [facility] [address] [place] [address] * Anaerobic Culture (01/18/2025 9:57 AM EDT) Culture No anaerobes isolated 01/23/2025 7:50 AM EDT [facility] Cyst Fluid Topography unknown / Unknown 01/18/2025 9:57 AM EDT 01/18/2025 3:26 PM EDT Comment:Pre-op diagnosis: Cellulitis of left lower extremity [L03.116] [facility] LAB MICROBIOLOGY - GENERAL ORDERABLES Final Result Performing Organization Address City/[facility]/ZIP Co de Phone Number [facility] [address] [place] [address] * Methicillin Resistant Staphylococcus aureus (MRSA) by PCR (01/18/2025 7:43 AM EDT) Methicillin Resistant Staphylococcus aureus (MRSA) by PCR Not Detected Not Detected 01/18/2025 9:36 AM EDT [facility] Swab Both anterior nares / Unknown Non-blood Collection / Unknown 01/18/2025 7:43 AM EDT 01/18/2025 8:19 AM EDT Narrative [facility] - 01/18/2025 9:36 AM EDT This test is FDA approved for use with nares swab specimens using the eSwabs. This test is used for clinical purposes. It should not be regarded as investigational or for research. This laboratory is certified under the Clinical Laboratory improvement Amendments of 1988 (CLIA-88 as qualified to perform high complexity clinical laboratory testing. us Sachin Garza MD LAB MICROBIOLOGY - GENERAL O RDERABLES Final Result [facility] [address] [place] [address] * (ABNORMAL) Basic metabolic panel (01/18/2025 12:18 AM EDT) Glucose, Plasma 105(H) 74 - 99 mg/dL 01/18/2025 1:30 AM EDT [facility] BUN, Plasma 14 7 - 21 mg/dL 01/18/2025 1:30 AM EDT [facility] Creatinine, Plasma 0.80 0.70 - 1.20 mg/dL 01/18/2025 1:30 AM EDT [facility] BUN/Creatinine Ratio 18 01/18/2025 1:30 AM EDT [facility] Sodium, Plasma 137 136 - 145 mmol/L 01/18/2025 1:30 AM EDT [facility] Potassium, Plasma 4.3 3.6 - 4.9 mmol/L 01/18/2025 1:30 AM EDT [facility] Chloride, Plasma 100 97 - 107 mmol/L 01/18/2025 1:30 AM EDT [facility] CO2, Plasma 26 22 - 29 mmol/L 01/18/2025 1:30 AM EDT [facility] Anion Gap 11 6 - 16 mmol/L 01/18/2025 1:30 AM EDT [facility] Total Calcium, Plasma 9.0 8.9 - 10.2 mg/dL 01/18/2025 1:30 AM EDT [facility] eGFRcr 118.4 mL/min/1.7 3m*2 01/18/2025 1:30 AM EDT [facility] Comment:Reported eGFRcr in m L/min/1.73m2 is based the CKD-EPI 2020 equation that does not use a race coefficient. Blood Venous blood specimen / Unknown Venipuncture / Unknown 01/18/2025 12:18 AM EDT 01/18/2025 12:27 AM EDT us Sachin Garza MD LAB BLOOD ORDERABLES Final R esult [facility] [address] [place] [address] * (ABNORMAL) CBC W/O Differential (01/18/2025 12:18 AM EDT) WBC Count 8.77 3.70 - 10.30 10*3/uL LAB HEMATOLOGY METHOD 01/18/2025 12:36 AM EDT [facility] RBC Count 3.94(L) 4.60 - 6.10 10*6/uL LAB HEMATOLOGY METHOD 01/18/2025 12:36 AM EDT [facility] HGB 11.7(L) 13.7 - 17.5 g/dL LAB HEMATOLOGY METHOD 01/18/2025 12:36 AM EDT [facility] HCT 37.1(L) 40.0 - 51.0 % LAB HEMATOLOGY METHOD 01/18/2025 12:36 AM EDT [facility] Platelet Count 347 155 - 369 10*3/uL LAB HEMATOLOGY METHOD 01/18/2025 12:36 AM EDT [facility] MCV 94 79 - 98 fL LAB HEMATOLOGY METHOD 01/18/2025 12:36 AM EDT [facility] MCH 29.7 26.0 - 32.0 pg LAB HEMATOLOGY METHOD 01/18/2025 12:36 AM EDT [facility] MCHC 31.5 30.7 - 35.5 g/dL LAB HEMATOLOGY METHOD 01/18/2025 12:36 AM EDT [facility] RDW 13.1 11.5 - 14.5 % LAB HEMATOLOGY METHOD 01/18/2025 12:36 AM EDT [facility] MPV 9.5 8.8 - 12.5 fL LAB HEMATOLOGY METHOD 01/18/2025 12:36 AM EDT [facility] nRBC 0.0 <=0.0 per 100 WBCs LAB HEMATOLOGY METHOD 01/18/2025 12:36 AM EDT [facility] Blood Venous blood specimen / Unknown Venipuncture / Unknown 01/18/2025 12:18 AM EDT 01/18/2025 12:29 AM EDT Sachin Garza MD LAB BLOOD ORDERABLES Final R esult Performing Organization Address [facility] Co de Phone Number [facility] [address] [place] [address] * Vancomycin, Peak, Plasma Please draw ~2 hours after 1000 dose of vancomycin on Monday finishes infusing. Consider obtaining level via peripheral stick. If peripheral stick is not feasible, please ensure that line is flushed well prior to drawing l... (01/17/2025 2:03 PM EDT) Vancomycin, Peak, Plasma 22.0 20.0 - 40.0 ug/mL 01/17/2025 3:01 PM EDT [facility] Blood Venous blood specimen / Unknown Venipuncture / Unknown 01/17/2025 2:03 PM EDT 01/17/2025 2:32 PM EDT Narrative [facility] - 01/17/2025 3:01 PM EDT Therapeutic Peak level: 20-40ug/mL Supra-therapeutic Peak level: >40 ug/mL Sachin Garza MD LAB BLOOD ORDERABLES Final R esult Performing Organization Address [facility] Co de Phone Number [facility] [address] [place] [address] * Vancomycin, Trough, Plasma Please draw ~30 minutes prior to dose due at 1000 on Monday. Please do NOT hold dose awaiting level to return. Consider obtaining level via peripheral stick. If peripheral stick is not feasible, please ensure that line ... (01/17/2025 9:53 AM EDT) Vancomycin, Trough, Plasma 12.5 10.0 - 20.0 ug/mL 01/17/2025 10:24 AM EDT [facility] Blood Venous blood specimen / Unknown Venipuncture / Unknown 01/17/2025 9:53 AM EDT 01/17/2025 9:57 AM EDT Narrative [facility] - 01/17/2025 10:24 AM EDT Therapeutic Trough level: 10-20ug/mL Supra-therapeutic Trough level: >20 ug/mL us Sachin Garza MD LAB BLOOD ORDERABLES Final R esult [facility] [address] [place] [address] * (ABNORMAL) Basic metabolic panel (01/17/2025 4:05 AM EDT) Glucose, Plasma 117(H) 74 - 99 mg/dL 01/17/2025 5:16 AM EDT [facility] BUN, Plasma 13 7 - 21 mg/dL 01/17/2025 5:16 AM EDT [facility] Creatinine, Plasma 0.75 0.70 - 1.20 mg/dL 01/17/2025 5:16 AM EDT [facility] BUN/Creatinine Ratio 17 01/17/2025 5:16 AM EDT [facility] Sodium, Plasma 135(L) 136 - 145 mmol/L 01/17/2025 5:16 AM EDT [facility] Potassium, Plasma 4.5 3.6 - 4.9 mmol/L 01/17/2025 5:16 AM EDT [facility] Chloride, Plasma 100 97 - 107 mmol/L 01/17/2025 5:16 AM EDT [facility] CO2, Plasma 25 22 - 29 mmol/L 01/17/2025 5:16 AM EDT [facility] Anion Gap 10 6 - 16 mmol/L 01/17/2025 5:16 AM EDT [facility] Total Calcium, Plasma 9.1 8.9 - 10.2 mg/dL 01/17/2025 5:16 AM EDT [facility] eGFRcr 120.7 mL/min/1.7 3m*2 01/17/2025 5:16 AM EDT [facility] Comment:Reported eGFRcr in m L/min/1.73m2 is based the CKD-EPI 2020 equation that does not use a race coefficient. Blood Venous blood specimen / Unknown Venipuncture / Unknown 01/17/2025 4:05 AM EDT 01/17/2025 4:35 AM EDT us Sachin Garza MD LAB BLOOD ORDERABLES Final R esult [facility] [address] [place] [address] * US Extremity Limited MSK or Soft Tissue Left; Knee; Anterior, Posterior, Medial (01/16/2025 9:34 AMEDT) Anatomical Region Laterality Modality Upper Extremities, Lower Extremities Ultrasound Impressions 01/16/2025 12:29 PM EDT Fluid collection overlying the area of concern in the left proximal medial foreleg. The sterility of this collection cannot be determined by imaging alone. Adjacent subcutaneous edema, which may represent cellulitis. CRITICAL RESULT: No. COMMUNICATION: Per this written report. By electronically signing this report, I, the attending physician, attest that I have personally reviewed the images/data for the above examination(s) and agree with the final edited report. Drafted by Jonathan Greenberg MD on 01/16/2025 10:24 AM Final report signed by David Jacobs MD on 01/16/2025 12:29 PM Narrative 01/16/2025 12:29 PM EDT CLINICAL INDICATION: US over surgical site to look for abscess TECHNIQUE: Multiplanar morales scale survey sonographic imaging of the left leg was performed. COMPARISON: CT left tib-fib 01/16/2025 FINDINGS: Focused ultrasound was performed for the area of concern at the incision site of the left proximal medial foreleg. There is a fluid collection measuring approximately 13.2 x 2.8 cm. There is also adjacent subcutaneous edema. No significant internal or peripheral rim vascularity. Procedure Note David Jacobs MD - 01/16/2025 CLINICAL INDICATION: US over surgical site to look for abscess TECHNIQUE: Multiplanar morales scale survey sonographic imaging of the left leg wasperformed. COMPARISON: CT left tib-fib 01/16/2025 FINDINGS: Focused ultrasound was performed for the area of concern at the incisionsite of the left proximal medial foreleg. There is a fluid collectionmeasuring approximately 13.2 x 2.8 cm. There is also adjacent subcutaneousedema. No significant internal or peripheral rim vascularity. IMPRESSION: Fluid collection overlying the area of concern in the left proximal medialforeleg. The sterility of this collection cannot be determined by imagingalone. Adjacent subcutaneous edema, which may represent cellulitis. CRITICAL RESULT: No. COMMUNICATION: Per this written report. By electronically signing this report, I, the attending physician, attestthat I have personally reviewed the images/data for the aboveexamination(s) and agree with the final edited report. Drafted by Jonathan Greenberg MD on 01/16/2025 10:24 AM Final report signed by David Jacobs MD on 01/16/2025 12:29 PM us Sachin Garza MD IMG US PROCEDURES Final Resu lt * (ABNORMAL) Basic Metabolic Panel, Plasma (01/16/2025 4:31 AM EDT) Glucose, Plasma 124(H) 74 - 99 mg/dL 01/16/2025 5:15 AM EDT [facility] BUN, Plasma 12 7 - 21 mg/dL 01/16/2025 5:15 AM EDT [facility] Creatinine, Plasma 0.66(L) 0.70 - 1.20 mg/dL 01/16/2025 5:15 AM EDT [facility] BUN/Creatinine Ratio 18 01/16/2025 5:15 AM EDT [facility] Sodium, Plasma 136 136 - 145 mmol/L 01/16/2025 5:15 AM EDT [facility] Potassium, Plasma 4.5 3.6 - 4.9 mmol/L 01/16/2025 5:15 AM EDT [facility] Chloride, Plasma 100 97 - 107 mmol/L 01/16/2025 5:15 AM EDT [facility] CO2, Plasma 26 22 - 29 mmol/L 01/16/2025 5:15 AM EDT [facility] Anion Gap 10 6 - 16 mmol/L 01/16/2025 5:15 AM EDT [facility] Total Calcium, Plasma 8.8(L) 8.9 - 10.2 mg/dL 01/16/2025 5:15 AM EDT [facility] eGFRcr 125.4 mL/min/1.7 3m*2 01/16/2025 5:15 AM EDT [facility] Comment:Reported eGFRcr in m L/min/1.73m2 is based the CKD-EPI 2020 equation that does not use a race coefficient. Blood Venous blood specimen / Unknown Venipuncture / Unknown 01/16/2025 4:31 AM EDT 01/16/2025 4:46 AM EDT us Jeffrey Matute MD LAB BLOOD ORDERABLES Final Re sult [facility] [address] [place] [address] * Prothrombin Time/INR (01/16/2025 4:31 AM EDT) Prothrombin Time 12.9 12.0 - 14.3 sec 01/16/2025 4:46 AM EDT [facility] INR 1.0 0.9 - 1.1 01/16/2025 4:46 AM EDT [facility] Blood Venous blood specimen / Unknown Venipuncture / Unknown 01/16/2025 4:31 AM EDT 01/16/2025 4:33 AM EDT Narrative [facility] - 01/16/2025 4:46 AM EDT OPTIMAL INR RANGES FOR PATIENT ON ORAL ANTICOAGULANT THERAPY Prevention of venous thromboembolism INR 2.0 to 3.0 In patients with heart disease: Atrial fibrillation INR 2.0 to 3.0 Valvular heart disease INR 2.0 to 3.0 Tissue heart valves INR 2.0 to 3.0 Mechanical prosthetic valves INR 2.5 to 3.5 Prevention of recurrent ND INR 2.5 to 3.5 us Jeffrey Matute MD LAB BLOOD ORDERABLES Final Re sult [facility] [address] [place] [address] * (ABNORMAL) CBC W/O Differential (01/16/2025 4:31 AM EDT) WBC Count 17.78(H) 3.70 - 10.30 10*3/uL LAB HEMATOLOGY METHOD 01/16/2025 4:36 AM EDT [facility] RBC Count 4.14(L) 4.60 - 6.10 10*6/uL LAB HEMATOLOGY METHOD 01/16/2025 4:36 AM EDT [facility] HGB 12.4(L) 13.7 - 17.5 g/dL LAB HEMATOLOGY METHOD 01/16/2025 4:36 AM EDT [facility] HCT 37.6(L) 40.0 - 51.0 % LAB HEMATOLOGY METHOD 01/16/2025 4:36 AM EDT [facility] Platelet Count 359 155 - 369 10*3/uL LAB HEMATOLOGY METHOD 01/16/2025 4:36 AM EDT [facility] MCV 91 79 - 98 fL LAB HEMATOLOGY METHOD 01/16/2025 4:36 AM EDT [facility] MCH 30.0 26.0 - 32.0 pg LAB HEMATOLOGY METHOD 01/16/2025 4:36 AM EDT [facility] MCHC 33.0 30.7 - 35.5 g/dL LAB HEMATOLOGY METHOD 01/16/2025 4:36 AM EDT [facility] RDW 13.2 11.5 - 14.5 % LAB HEMATOLOGY METHOD 01/16/2025 4:36 AM EDT [facility] MPV 9.3 8.8 - 12.5 fL LAB HEMATOLOGY METHOD 01/16/2025 4:36 AM EDT [facility] nRBC 0.0 <=0.0 per 100 WBCs LAB HEMATOLOGY METHOD 01/16/2025 4:36 AM EDT [facility] Blood Venous blood specimen / Unknown Venipuncture / Unknown 01/16/2025 4:31 AM EDT 01/16/2025 4:33 AM EDT us Jeffrey Matute MD LAB BLOOD ORDERABLES Final Re sult [facility] [address] [place] [address] * CT Tibia Fibula Left w IV Contrast (01/16/2025 1:09 AM EDT) Anatomical Region Laterality Modality Lower Extremities, Lower Leg Left Com puted Tomography Impressions 01/16/2025 2:31 AM EDT Limited specificity due to marked streak and beam Bertrand artifact. Hardware internal fixation with proximal tibia fractures. Small knee effusion with enhancement of the associated synovial, concerning for septic arthritis. 2.7 x 3.2 x 11.1 cm soft tissue edema along the anterior aspect of the knee without definitive peripheral enhancement, concerning for phlegmon. Additional 2.4 was evidence of new collection with peripheral enhancement along the medial knee is concerning for abscess. Soft tissue stranding adjacent to the knee as described above, concerning for superimposed cellulitis. CRITICAL RESULT: No. COMMUNICATION: Per this written report. By electronically signing this report, I, the attending physician, attest that I have personally reviewed the images/data for the above examination(s) and agree with the final edited report. Drafted by Gustavo Cesar MD on 01/16/2025 1:47 AM Final report signed by Tino Martinez MD on 01/16/2025 2:31 AM Narrative 01/16/2025 2:31 AM EDT CLINICAL INDICATION: Soft tissue infection suspected, knee, xray done TECHNIQUE: Multiple axial CT images were obtained through left lower extremity following administration of IV contrast, Omnipaque 300, [address] data set was used to generate high resolution reformatted images in the coronal and sagittal planes to facilitate diagnostic accuracy and treatment planning. Total DLP (Dose-Length Product): 421.92 mGy.cm. Please note: The reported value represents the total of one or more individual components during the CT acquisition on this date and at this time, and as such, the same value may appear in more than one CT report depending on the interpreting/reporting physicians. COMPARISON: Same-day radiographs, 01/01/2025 CT FINDINGS: Redemonstration of the screw and plate fixation of the tibial plateau fracture. Similar alignment of the tibial plateau fracture. No evidence of hardware complication. Partially visualized intramedullary karmen and screw fixation of the femur. Small knee effusion with enhancement of the associated bursa. Concerning for septic arthritis. Cutaneous thickening and stranding overlying the anterior, posterior, and medial knee. There is a 2.7 x 3.2 x 11.1 cm soft tissue collection along the anteromedial aspect of the knee without definitive peripheral enhancement. Additional 2.4 x 0.9 cm collection with peripheral enhancement is concerning for abscess (series 5 image 58).. Procedure Note Tino Martinez MD - 01/16/2025 CLINICAL INDICATION: Soft tissue infection suspected, knee, xray done TECHNIQUE: Multiple axial CT images were obtained through left lower extremityfollowing administration of IV contrast, Omnipaque 300, 100 mL. The axialCT data set was used to generate high resolution reformatted images in thecoronal and sagittal planes to facilitate diagnostic accuracy andtreatment planning. Total DLP (Dose-Length Product): 421.92 mGy.cm. Please note: The reportedvalue represents the total of one or more individual components during theCT acquisition on this date and at this time, and as such, the same valuemay appear in more than one CT report depending on theinterpreting/reporting physicians. COMPARISON: Same-day radiographs, 01/01/2025 CT FINDINGS: Redemonstration of the screw and plate fixation of the tibial plateaufracture. Similar alignment of the tibial plateau fracture. No evidence ofhardware complication. Partially visualized intramedullary karmen and screwfixation of the femur. Small knee effusion with enhancement of theassociated bursa. Concerning for septic arthritis. Cutaneous thickeningand stranding overlying the anterior, posterior, and medial knee. There alexandra 2.7 x 3.2 x 11.1 cm soft tissue collection along the anteromedial aspectof the knee without definitive peripheral enhancement. Additional 2.4 x0.9 cm collection with peripheral enhancement is concerning for abscess(series 5 image 58).. IMPRESSION: Limited specificity due to marked streak and beam Bertrand artifact. Hardware internal fixation with proximal tibia fractures. Small knee effusion with enhancement of the associated synovial,concerning for septic arthritis. 2.7 x 3.2 x 11.1 cm soft tissue edema along the anterior aspect of theknee without definitive peripheral enhancement, concerning for phlegmon. Additional 2.4 was evidence of new collection with peripheral enhancementalong the medial knee is concerning for abscess. Soft tissue stranding adjacent to the knee as described above, concerningfor superimposed cellulitis. CRITICAL RESULT: No. COMMUNICATION: Per this written report. By electronically signing this report, I, the attending physician, attestthat I have personally reviewed the images/data for the aboveexamination(s) and agree with the final edited report. Drafted by Gustavo Cesar MD on 01/16/2025 1:47 AM Final report signed by Tino Martinez MD on 01/16/2025 2:31 AM Gus Vigil APRN IMG CT PROCEDURES Final Result * Blood Culture (Aerobic/Anaerobet Set) (01/16/2025 12:24 AM EDT) Culture No growth at day 5 01/21/2025 2:02 AM EDT [facility] Blood Venous blood specimen / Unknown Venipuncture / Unknown 01/16/2025 12:24 AM EDT 01/16/2025 1:12 AM EDT Narrative [facility] - 01/21/2025 2:02 AM EDT Low blood volume submitted, results may be compromised Gus Vigil APRN LAB MICROBIOLOGY - GENER AL ORDERABLES Final Result Performing Organization Address City/State/[facility] Co de Phone Number [facility] [address] [place] [address] * XR Chest 1 View (01/15/2025 11:21 PM EDT) Anatomical Region Laterality Modality Chest Computed Radiogr aphy Impressions 01/15/2025 11:40 PM EDT Redemonstration of proximal internal fixation changes of the proximal tibia/tibial plateau. No evidence of acute hardware communication. There is questionable increased displacement of one of the anterior superior fracture fragments of the tibial plateau, this may be secondary to differences in imaging technique to be correlated patient history. Subcutaneous edema extending from the medial aspect of the knee extending to the medial and middle aspect of the calf, nonspecific, recommend clinical correlation to exclude cellulitis. No acute focal airspace consolidation. CRITICAL RESULT: No. COMMUNICATION: Per this written report. Preliminary report signed by Gustavo Cesar MD on 01/15/2025 11:33 PM By electronically signing this report, I, the attending physician, attest that I have personally reviewed the images/data for the above examination(s) and agree with the final edited report. Drafted by Gustavo Cesar MD on 01/15/2025 11:22 PM Final report signed by Dmitriy Rogers MD on 01/15/2025 11:40 PM Narrative 01/15/2025 11:40 PM EDT CLINICAL INDICATION: Eval for infection TECHNIQUE: XR KNEE LEFT 3 VIEWS, XR TIBIA FIBULA LEFT 2+ VIEWS, XR CHEST 1 VIEW COMPARISON: 01/01/[address] CTA chest 09/10/2023. FINDINGS: Chest: Prominent cardiac silhouette, which may be secondary to technique. Unchanged mediastinal contours. Mild asymmetric elevation of the right hemidiaphragm. No pleural effusion. No airspace consolidation. No pneumothorax. No acute osseous abnormality. Left knee/tib-fib: Partially visualized intramedullary karmen and screw fixation of the femur, no evidence of acute hardware communication. Redemonstration open reduction internal fixation changes of the proximal tibia/tibial plateau with medial and lateral plate and screw constructs and orthopedic pins. No evidence of acute hardware complication. On lateral view, there is questionable increased displacement tibial fracture fragment, which may be secondary to differences in imaging technique. Ghost tract within the distal femur. Small suprapatellar joint effusion. Soft tissue swelling about the knee and tib-fib region greatest medially. Ghost track along the diaphysis of the tibia best seen on lateral view. Procedure Note Dmitriy Rogers MD - 01/15/2025 CLINICAL INDICATION: Eval for infection TECHNIQUE: XR KNEE LEFT 3 VIEWS, XR TIBIA FIBULA LEFT 2+ VIEWS, XR CHEST 1 VIEW COMPARISON: 01/01/[address] CTA chest 09/10/2023. FINDINGS: Chest: Prominent cardiac silhouette, which may be secondary to technique.Unchanged mediastinal contours. Mild asymmetric elevation of the righthemidiaphragm. No pleural effusion. No airspace consolidation. Nopneumothorax. No acute osseous abnormality. Left knee/tib-fib: Partially visualized intramedullary karmen and screw fixation of the femur,no evidence of acute hardware communication. Redemonstration open reduction internal fixation changes of the proximaltibia/tibial plateau with medial and lateral plate and screw constructsand orthopedic pins. No evidence of acute hardware complication. Onlateral view, there is questionable increased displacement tibial fracturefragment, which may be secondary to differences in imaging technique.Ghost tract within the distal femur. Small suprapatellar joint effusion.Soft tissue swelling about the knee and tib-fib region greatest medially.Ghost track along the diaphysis of the tibia best seen on lateral view. IMPRESSION: Redemonstration of proximal internal fixation changes of the proximaltibia/tibial plateau. No evidence of acute hardware communication. Thereis questionable increased displacement of one of the anterior superiorfracture fragments of the tibial plateau, this may be secondary todifferences in imaging technique to be correlated patient history. Subcutaneous edema extending from the medial aspect of the knee extendingto the medial and middle aspect of the calf, nonspecific, recommendclinical correlation to exclude cellulitis. No acute focal airspace consolidation. CRITICAL RESULT: No. COMMUNICATION: Per this written report. Preliminary report signed by Gustavo Cesar MD on 01/15/2025 11:33 PM By electronically signing this report, I, the attending physician, attestthat I have personally reviewed the images/data for the aboveexamination(s) and agree with the final edited report. Drafted by Gustavo Cesar MD on 01/15/2025 11:22 PM Final report signed by Dmitriy Rogers MD on 01/15/2025 11:40 PM us Ye Navarro MD IMG XR PROCEDURES Final Re sult * XR Knee Left 3 Views (01/15/2025 11:21 PM EDT) Anatomical Region Laterality Modality Lower Extremities, Knee Left Computed Radiography Impressions 01/15/2025 11:40 PM EDT Redemonstration of proximal internal fixation changes of the proximal tibia/tibial plateau. No evidence of acute hardware communication. There is questionable increased displacement of one of the anterior superior fracture fragments of the tibial plateau, this may be secondary to differences in imaging technique to be correlated patient history. Subcutaneous edema extending from the medial aspect of the knee extending to the medial and middle aspect of the calf, nonspecific, recommend clinical correlation to exclude cellulitis. No acute focal airspace consolidation. CRITICAL RESULT: No. COMMUNICATION: Per this written report. Preliminary report signed by Gustavo Cesar MD on 01/15/2025 11:33 PM By electronically signing this report, I, the attending physician, attest that I have personally reviewed the images/data for the above examination(s) and agree with the final edited report. Drafted by Gustavo Cesar MD on 01/15/2025 11:22 PM Final report signed by Dmitriy Rogers MD on 01/15/2025 11:40 PM Narrative 01/15/2025 11:40 PM EDT CLINICAL INDICATION: Eval for infection TECHNIQUE: XR KNEE LEFT 3 VIEWS, XR TIBIA FIBULA LEFT 2+ VIEWS, XR CHEST 1 VIEW COMPARISON: 01/01/[address] CTA chest 09/10/2023. FINDINGS: Chest: Prominent cardiac silhouette, which may be secondary to technique. Unchanged mediastinal contours. Mild asymmetric elevation of the right hemidiaphragm. No pleural effusion. No airspace consolidation. No pneumothorax. No acute osseous abnormality. Left knee/tib-fib: Partially visualized intramedullary karmen and screw fixation of the femur, no evidence of acute hardware communication. Redemonstration open reduction internal fixation changes of the proximal tibia/tibial plateau with medial and lateral plate and screw constructs and orthopedic pins. No evidence of acute hardware complication. On lateral view, there is questionable increased displacement tibial fracture fragment, which may be secondary to differences in imaging technique. Ghost tract within the distal femur. Small suprapatellar joint effusion. Soft tissue swelling about the knee and tib-fib region greatest medially. Ghost track along the diaphysis of the tibia best seen on lateral view. Procedure Note Dmitriy Rogers MD - 01/15/2025 CLINICAL INDICATION: Eval for infection TECHNIQUE: XR KNEE LEFT 3 VIEWS, XR TIBIA FIBULA LEFT 2+ VIEWS, XR CHEST 1 VIEW COMPARISON: 01/01/[address] CTA chest 09/10/2023. FINDINGS: Chest: Prominent cardiac silhouette, which may be secondary to technique.Unchanged mediastinal contours. Mild asymmetric elevation of the righthemidiaphragm. No pleural effusion. No airspace consolidation. Nopneumothorax. No acute osseous abnormality. Left knee/tib-fib: Partially visualized intramedullary karmen and screw fixation of the femur,no evidence of acute hardware communication. Redemonstration open reduction internal fixation changes of the proximaltibia/tibial plateau with medial and lateral plate and screw constructsand orthopedic pins. No evidence of acute hardware complication. Onlateral view, there is questionable increased displacement tibial fracturefragment, which may be secondary to differences in imaging technique.Ghost tract within the distal femur. Small suprapatellar joint effusion.Soft tissue swelling about the knee and tib-fib region greatest medially.Ghost track along the diaphysis of the tibia best seen on lateral view. IMPRESSION: Redemonstration of proximal internal fixation changes of the proximaltibia/tibial plateau. No evidence of acute hardware communication. Thereis questionable increased displacement of one of the anterior superiorfracture fragments of the tibial plateau, this may be secondary todifferences in imaging technique to be correlated patient history. Subcutaneous edema extending from the medial aspect of the knee extendingto the medial and middle aspect of the calf, nonspecific, recommendclinical correlation to exclude cellulitis. No acute focal airspace consolidation. CRITICAL RESULT: No. COMMUNICATION: Per this written report. Preliminary report signed by Gustavo Cesar MD on 01/15/2025 11:33 PM By electronically signing this report, I, the attending physician, attestthat I have personally reviewed the images/data for the aboveexamination(s) and agree with the final edited report. Drafted by Gustavo Cesar MD on 01/15/2025 11:22 PM Final report signed by Dmitriy Rogers MD on 01/15/2025 11:40 PM Gus Vigil TECHNICAL SUPPORT AGENT IMG XR PROCEDURES Final Result * XR Tibia Fibula Left 2+ Views (01/15/2025 11:21 PM EDT) Anatomical Region Laterality Modality Lower Extremities, Lower Leg Left Com puted Radiography Impressions 01/15/2025 11:40 PM EDT Redemonstration of proximal internal fixation changes of the proximal tibia/tibial plateau. No evidence of acute hardware communication. There is questionable increased displacement of one of the anterior superior fracture fragments of the tibial plateau, this may be secondary to differences in imaging technique to be correlated patient history. Subcutaneous edema extending from the medial aspect of the knee extending to the medial and middle aspect of the calf, nonspecific, recommend clinical correlation to exclude cellulitis. No acute focal airspace consolidation. CRITICAL RESULT: No. COMMUNICATION: Per this written report. Preliminary report signed by Gustavo Cesar MD on 01/15/2025 11:33 PM By electronically signing this report, I, the attending physician, attest that I have personally reviewed the images/data for the above examination(s) and agree with the final edited report. Drafted by Gustavo Cesar MD on 01/15/2025 11:22 PM Final report signed by Dmitriy Rogers MD on 01/15/2025 11:40 PM Narrative 01/15/2025 11:40 PM EDT CLINICAL INDICATION: Eval for infection TECHNIQUE: XR KNEE LEFT 3 VIEWS, XR TIBIA FIBULA LEFT 2+ VIEWS, XR CHEST 1 VIEW COMPARISON: 01/01/[address] CTA chest 09/10/2023. FINDINGS: Chest: Prominent cardiac silhouette, which may be secondary to technique. Unchanged mediastinal contours. Mild asymmetric elevation of the right hemidiaphragm. No pleural effusion. No airspace consolidation. No pneumothorax. No acute osseous abnormality. Left knee/tib-fib: Partially visualized intramedullary karmen and screw fixation of the femur, no evidence of acute hardware communication. Redemonstration open reduction internal fixation changes of the proximal tibia/tibial plateau with medial and lateral plate and screw constructs and orthopedic pins. No evidence of acute hardware complication. On lateral view, there is questionable increased displacement tibial fracture fragment, which may be secondary to differences in imaging technique. Ghost tract within the distal femur. Small suprapatellar joint effusion. Soft tissue swelling about the knee and tib-fib region greatest medially. Ghost track along the diaphysis of the tibia best seen on lateral view. Procedure Note Dmitriy Rogers MD - 01/15/2025 CLINICAL INDICATION: Eval for infection TECHNIQUE: XR KNEE LEFT 3 VIEWS, XR TIBIA FIBULA LEFT 2+ VIEWS, XR CHEST 1 VIEW COMPARISON: 01/01/[address] CTA chest 09/10/2023. FINDINGS: Chest: Prominent cardiac silhouette, which may be secondary to technique.Unchanged mediastinal contours. Mild asymmetric elevation of the righthemidiaphragm. No pleural effusion. No airspace consolidation. Nopneumothorax. No acute osseous abnormality. Left knee/tib-fib: Partially visualized intramedullary karmen and screw fixation of the femur,no evidence of acute hardware communication. Redemonstration open reduction internal fixation changes of the proximaltibia/tibial plateau with medial and lateral plate and screw constructsand orthopedic pins. No evidence of acute hardware complication. Onlateral view, there is questionable increased displacement tibial fracturefragment, which may be secondary to differences in imaging technique.Ghost tract within the distal femur. Small suprapatellar joint effusion.Soft tissue swelling about the knee and tib-fib region greatest medially.Ghost track along the diaphysis of the tibia best seen on lateral view. IMPRESSION: Redemonstration of proximal internal fixation changes of the proximaltibia/tibial plateau. No evidence of acute hardware communication. Thereis questionable increased displacement of one of the anterior superiorfracture fragments of the tibial plateau, this may be secondary todifferences in imaging technique to be correlated patient history. Subcutaneous edema extending from the medial aspect of the knee extendingto the medial and middle aspect of the calf, nonspecific, recommendclinical correlation to exclude cellulitis. No acute focal airspace consolidation. CRITICAL RESULT: No. COMMUNICATION: Per this written report. Preliminary report signed by Gustavo Cesar MD on 01/15/2025 11:33 PM By electronically signing this report, I, the attending physician, attestthat I have personally reviewed the images/data for the aboveexamination(s) and agree with the final edited report. Drafted by Gustavo Cesar MD on 01/15/2025 11:22 PM Final report signed by Dmitriy Rogers MD on 01/15/2025 11:40 PM Gus Vigil TECHNICAL SUPPORT AGENT IMG XR PROCEDURES Final Result * Type and Screen (01/15/2025 10:51 PM EDT) ABO/Rh A Positive 01/15/2025 10:26 PM EDT BLOOD BANK Antibody Screen Negative 01/15/2025 10:26 PM EDT BLOOD BANK Specimen Expiration 01/18/2025 23:59 01/15/2025 10:26 PM EDT BLOOD BANK Blood Venous blood specimen / Unknown Venipuncture / Unknown 01/15/2025 10:51 PM EDT 01/15/2025 10:58 PM EDT Ye Navarro MD LAB BLOOD BANK TEST ORDERA BLES Final Result Performing Organization Address City/[facility]/ZIP Co de Phone Number BLOOD BANK [address] [place] [address], [place] * ECG Adult (01/15/2025 10:46 PM EDT) EKG DIAGNOSIS CLASS Normal MUSE ECG Ventricular Rate 92 BPM MUSE ECG Atrial Rate 92 BPM MUSE ECG IL Interval 122 ms MUSE ECG QRSD Interval 102 ms MUSE ECG QT Interval 350 ms MUSE ECG QTC Interval 432 ms MUSE ECG P Bagley 56 degrees MUSE ECG R Bagley 44 degrees MUSE ECG T Wave Bagley 57 degrees MUSE ECG Diagnosis Normal sinus rhythm MUSE ECG Diagnosis Normal ECG MUSE ECG Diagnosis MUSE ECG Diagnosis Confirmed by Richard Mccracken ([id number]) on 01/16/2025 8:55:10 PM MUSE ECG 01/15/2025 10:4 6 PM EDT 01/16/2025 8:55 PM EDT Ye Navarro MD ECG ORDERABLES Final Resu lt Performing Organization Address City/[facility] Co de Phone Number MUSE ECG * Blood Culture (Aerobic/Anaerobet Set) (01/15/2025 10:11 PM EDT) Culture No growth at day 5 01/20/2025 11:01 PM EDT [facility] Blood Structure of antecubital vein / Unknown Venipuncture / Unknown 01/15/2025 10:11 PM EDT 01/15/2025 10:19 PM EDT Narrative [facility] - 01/20/2025 11:01 PM EDT Low blood volume submitted, results may be compromised Gus Vigil APRN LAB MICROBIOLOGY - GENER AL ORDERABLES Final Result [facility] [address] [place] [address] * (ABNORMAL) Sed rate, automated (01/15/2025 10:11 PM EDT) Sedimentation Rate 46(H) <15 mm/hr 2024 10:34 PM EDT [facility] Blood Venous blood specimen / Unknown Venipuncture / Unknown 01/15/2025 10:11 PM EDT 01/15/2025 10:12 PM EDT [facility] TECHNICAL SUPPORT AGENT LAB BLOOD ORDERABLES Fin al Result Performing Organization Address [facility] Co de Phone Number [facility] [address] [place] [address] * (ABNORMAL) C-Reactive protein (01/15/2025 10:11 PM EDT) Pathologist [facility] CRP, Plasma 91.9(H) <=8.0 mg/L 01/15/2025 10:32 PM EDT [facility] Blood Venous blood specimen / Unknown Venipuncture / Unknown 01/15/2025 10:11 PM EDT 01/15/2025 10:12 PM EDT Narrative [facility] - 01/15/2025 10:32 PM EDT This CRP test is appropriate for assessment of infection, systemic inflammation and/or tissue injury. To assess cardiovascular disease risk order high sensitivity CRP ([facility]). [facility] [facility] TECHNICAL SUPPORT AGENT LAB BLOOD ORDERABLES Fin al Result Performing Organization Address City/[facility]/ZIP Co de Phone Number [facility] [address] [place] [address] * (ABNORMAL) Blood gas panel, venous (01/15/2025 10:11 PM EDT) pH, Venous 7.39 7.32 - 7.43 LAB HEMATOLOGY METHOD 01/15/2025 10:14 PM EDT [facility] pCO2, Venous 47 40 - 55 mmHg LAB HEMATOLOGY METHOD 01/15/2025 10:14 PM EDT [facility] pO2, Venous 34 25 - 40 mmHg LAB HEMATOLOGY METHOD 01/15/2025 10:14 PM EDT [facility] SO2, Measured, Venous 68 65 - 80 % LAB HEMATOLOGY METHOD 01/15/2025 10:14 PM EDT [facility] Base Excess, Venous 2.8 -2.0 - 3.0 mmol/L LAB HEMATOLOGY METHOD 01/15/2025 10:14 PM EDT [facility] Bicarbonate, Calculated, Venous 29(H) 22 - 26 mmol/L LAB HEMATOLOGY METHOD 01/15/2025 10:14 PM EDT [facility] Hematocrit, Whole Blood 40.4 40.0 - 51.0 % LAB HEMATOLOGY METHOD 01/15/2025 10:14 PM EDT [facility] Sodium, Whole Blood 135(L) 136 - 145 mmol/L LAB HEMATOLOGY METHOD 01/15/2025 10:14 PM EDT [facility] Potassium, Whole Blood 4.3 3.6 - 4.9 mmol/L LAB HEMATOLOGY METHOD 01/15/2025 10:14 PM EDT [facility] Chloride, Whole Blood 99 97 - 107 mmol/L LAB HEMATOLOGY METHOD 01/15/2025 10:14 PM EDT [facility] Glucose, Whole Blood 110(H) 74 - 99 mg/dL LAB HEMATOLOGY METHOD 01/15/2025 10:14 PM EDT [facility] Lactate, Venous, Whole Blood 1.1 0.5 - 2.2 mmol/L LAB HEMATOLOGY METHOD 01/15/2025 10:14 PM EDT [facility] Ionized Calcium, Whole Blood 4.6 4.6 - 5.1 mg/dL LAB HEMATOLOGY METHOD 01/15/2025 10:14 PM EDT [facility] Blood Venous blood specimen / Unknown Venipuncture / Unknown 01/15/2025 10:11 PM EDT 01/15/2025 10:12 PM EDT us Gus Vigil TECHNICAL SUPPORT AGENT LAB BLOOD ORDERABLES Fin al Result [facility] [address] [place] [address] * (ABNORMAL) CMP (01/15/2025 10:11 PM EDT) Pathologist [facility] Glucose, Plasma 116(H) 74 - 99 mg/dL 01/15/2025 10:32 PM EDT [facility] BUN, Plasma 14 7 - 21 mg/dL 01/15/2025 10:32 PM EDT [facility] Creatinine, Plasma 0.78 0.70 - 1.20 mg/dL 01/15/2025 10:32 PM EDT [facility] BUN/Creatinine Ratio 18 01/15/2025 10:32 PM EDT [facility] Sodium, Plasma 134(L) 136 - 145 mmol/L 01/15/2025 10:32 PM EDT [facility] Potassium, Plasma 4.6 3.6 - 4.9 mmol/L 01/15/2025 10:32 PM EDT [facility] Chloride, Plasma 97 97 - 107 mmol/L 01/15/2025 10:32 PM EDT [facility] CO2, Plasma 24 22 - 29 mmol/L 01/15/2025 10:32 PM EDT [facility] Anion Gap 13 6 - 16 mmol/L 01/15/2025 10:32 PM EDT [facility] Total Calcium, Plasma 8.7(L) 8.9 - 10.2 mg/dL 01/15/2025 10:32 PM EDT [facility] Total Protein 6.5 6.3 - 7.9 g/dL 01/15/2025 10:32 PM EDT [facility] Albumin, Plasma 3.7 3.5 - 5.2 g/dL 01/15/2025 10:32 PM EDT [facility] AST, Plasma 23 10 - 50 U/L 01/15/2025 10:32 PM EDT [facility] ALT, Plasma 52(H) 10 - 50 U/L 01/15/2025 10:32 PM EDT [facility] Alkaline Phosphatase, Plasma 124(H) 40 - 115 U/L 01/15/2025 10:32 PM EDT [facility] Total Bilirubin, Plasma 0.3 0.2 - 1.1 mg/dL 01/15/2025 10:32 PM EDT [facility] eGFRcr 119.3 mL/min/1.7 3m*2 01/15/2025 10:32 PM EDT [facility] Comment:Reported eGFRcr in m L/min/1.73m2 is based the CKD-EPI 2020 equation that does not use a race coefficient. Blood Venous blood specimen / Unknown Venipuncture / Unknown 01/15/2025 10:11 PM EDT 01/15/2025 10:12 PM EDT [facility] B[facility]OD ORDERABLES Fin al Result Performing Organization Address [facility]/ZIP Co de Phone Number [facility] [address] [place] [address] * PT-INR (01/15/2025 10:11 PM EDT) Prothrombin Time 12.5 12.0 - 14.3 sec 01/15/2025 10:28 PM EDT [facility] INR 1.0 0.9 - 1.1 01/15/2025 10:28 PM EDT [facility] Blood Venous blood specimen / Unknown Venipuncture / Unknown 01/15/2025 10:11 PM EDT 01/15/2025 10:12 PM EDT Narrative [facility] - 01/15/2025 10:28 PM EDT OPTIMAL INR RANGES FOR PATIENT ON ORAL ANTICOAGULANT THERAPY Prevention of venous thromboembolism INR 2.0 to 3.0 In patients with heart disease: Atrial fibrillation INR 2.0 to 3.0 Valvular heart disease INR 2.0 to 3.0 Tissue heart valves INR 2.0 to 3.0 Mechanical prosthetic valves INR 2.5 to 3.5 Prevention of recurrent ND INR 2.5 to 3.5 [facility] Rodger Vigil TECHNICAL SUPPORT AGENT LAB BLOOD ORDERABLES Fin al Result Performing Organization Address City/[facility]/ZIP Co de Phone Number [facility] [address] [place] [address] * (ABNORMAL) CBC w/diff (01/15/2025 10:11 PM EDT) WBC Count 19.24(H) 3.70 - 10.30 10*3/uL LAB HEMATOLOGY METHOD 01/15/2025 10:14 PM EDT [facility] RBC Count 4.33(L) 4.60 - 6.10 10*6/uL LAB HEMATOLOGY METHOD 01/15/2025 10:14 PM EDT [facility] HGB 13.0(L) 13.7 - 17.5 g/dL LAB HEMATOLOGY METHOD 01/15/2025 10:14 PM EDT [facility] HCT 39.3(L) 40.0 - 51.0 % LAB HEMATOLOGY METHOD 01/15/2025 10:14 PM EDT [facility] Platelet Count 383(H) 155 - 369 10*3/uL LAB HEMATOLOGY METHOD 01/15/2025 10:14 PM EDT [facility] MCV 91 79 - 98 fL LAB HEMATOLOGY METHOD 01/15/2025 10:14 PM EDT [facility] MCH 30.0 26.0 - 32.0 pg LAB HEMATOLOGY METHOD 01/15/2025 10:14 PM EDT [facility] MCHC 33.1 30.7 - 35.5 g/dL LAB HEMATOLOGY METHOD 01/15/2025 10:14 PM EDT [facility] RDW 13.2 11.5 - 14.5 % LAB HEMATOLOGY METHOD 01/15/2025 10:14 PM EDT [facility] MPV 9.2 8.8 - 12.5 fL LAB HEMATOLOGY METHOD 01/15/2025 10:14 PM EDT [facility] nRBC 0.0 <=0.0 per 100 WBCs LAB HEMATOLOGY METHOD 01/15/2025 10:14 PM EDT [facility] Differential Type Automated LAB HEMATOLOGY METHOD 01/15/2025 10:14 PM EDT [facility] Neutrophils % 78 % LAB HEMATOLOGY METHOD 01/15/2025 10:14 PM EDT [facility] Lymphocytes % 12 % LAB HEMATOLOGY METHOD 01/15/2025 10:14 PM EDT [facility] Monocytes % 8 % LAB HEMATOLOGY METHOD 01/15/2025 10:14 PM EDT [facility] Eosinophils % 1 % LAB HEMATOLOGY METHOD 01/15/2025 10:14 PM EDT [facility] Basophils % 0 % LAB HEMATOLOGY METHOD 01/15/2025 10:14 PM EDT [facility] Immature Granulocytes % 1 % LAB HEMATOLOGY METHOD 01/15/2025 10:14 PM EDT [facility] Neutrophils Absolute 15.11(H) 1.60 - 6.10 10*3/uL LAB HEMATOLOGY METHOD 01/15/2025 10:14 PM EDT [facility] Lymphocytes Absolute 2.34 1.20 - 3.90 10*3/uL LAB HEMATOLOGY METHOD 01/15/2025 10:14 PM EDT [facility] Monocytes Absolute 1.46(H) 0.30 - 0.90 10*3/uL LAB HEMATOLOGY METHOD 01/15/2025 10:14 PM EDT [facility] Eosinophils Absolute 0.13 0.00 - 0.50 10*3/uL LAB HEMATOLOGY METHOD 01/15/2025 10:14 PM EDT [facility] Basophils Absolute 0.06 0.00 - 0.10 10*3/uL LAB HEMATOLOGY METHOD 01/15/2025 10:14 PM EDT [facility] Immature Granulocytes Absolute 0.14(H) 0.00 - 0.06 10*3/uL LAB HEMATOLOGY METHOD 01/15/2025 10:14 PM EDT [facility] Blood Venous blood specimen / Unknown Venipuncture / Unknown 01/15/2025 10:11 PM EDT 01/15/2025 10:12 PM EDT Narrative [facility] - 01/15/2025 10:14 PM EDT Therapeutic decision making should be based on absolute values, rather than percentages. Gus Vigil APRN LAB BLOOD ORDERABLES Fin al Result [facility] [address] [place] [address] documented in this encounter Visit Diagnoses Diagnosis Cellulitis of leg, left- Primary Sepsis following procedure, initial encounter ([facility]) Cellulitis of left lower extremity Acute postoperative pain Other acute postoperative pain Closed fracture of left tibial plateau with routine healing, subsequent encounter Cellulitis of leg, left Cellulitis of left lower extremity Sepsis following procedure ([facility]) Closed fracture of left tibial plateau documented in this encounter Admitting Diagnoses Diagnosis Cellulitis of leg, left Cellulitis of left lower extremity Sepsis following procedure ([facility]) Closed fracture of left tibial plateau documented in this encounter Administered Medications Inactive Administered Medications - up to 3 most recent administrations Medication Order MAR Action Action Date Dose Rate Site acetaminophen (Tylenol) tablet 1,000 mg 1,000 mg, Oral, Every 6 hours scheduled, First dose on Sneha 01/16/25 at 0755, Until Discontinued, Routine Given 01/22/2025 12:49 PM EDT 1,000 mg Given 01/22/2025 5:01 AM EDT 1,000 mg Given 01/21/2025 11:21 PM EDT 1,000 mg bisacodyl (Dulcolax) suppository 10 mg 10 mg, Rectal, Daily PRN, Starting on Sneha 01/16/25 at 0750, Until Mon01/22/25 at 1922, Routine, constipation, if no bowel movement for 72 hours and no response to magnesium hydroxide ceFAZolin (Ancef) injection 3 g 3 g, Intravenous, Once, 1 dose, On 01/18/25 at 0930, Routine, Anesthesia Intraprocedure Given 01/18/2025 12:01 PM EDT 3 g ceFAZolin (Ancef) injection 3 g 3 g, Intravenous, Every 8 hours, 3 doses, First dose on Mon01/20/25 at 2000, Last dose on Mon01/21/25 at 1200, Routine, Recovery(Phase II-Outpatient)/On Unit(Inpatient) Given 01/21/2025 12:21 PM EDT 3 g Given 01/21/2025 4:32 AM EDT 3 g Given 01/20/2025 8:02 PM EDT 3 g DAPTOmycin (Cubicin) 1,100 mg in sodium chloride 0.9 % 100 mL IVPB 1,100 mg, Intravenous, Every 24 hours, 1 dose, First dose (after last modification) on Mon01/22/25 at 0900, Routine New Bag 01/22/2025 8:47 AM EDT 1,100 mg 264 mL/hr DAPTOmycin (Cubicin) 1,100 mg in sodium chloride 0.9 % 100 mL IVPB 1,100 mg, Intravenous, Every 24 hours, First dose (after last modification) on Mon01/22/25 at 2100, Until Discontinued, Routine DAPTOmycin (Cubicin) 1,150 mg in sodium chloride 0.9 % 100 mL IVPB 1,150 mg (rounded from 1,100 mg = 10 mg/kg 110 kg Adjusted weight), Intravenous, Once, 1 dose, On Mon01/21/25 at 0945, Routine New Bag 01/21/2025 10:11 AM EDT 1,150 mg 266 mL/hr enoxaparin (Lovenox) syringe 60 mg 60 mg, Subcutaneous, 2 times daily, First dose on Mon01/16/25 at 0900, Until Discontinued, Routine Given 01/22/2025 8:48 AM EDT 60 mg Left Upper Abdomen Given 01/21/2025 9:07 PM EDT 60 mg Le ft Lower Abdomen Given 01/21/2025 9:01 AM EDT 60 mg Le ft Lower Abdomen fentaNYL (Sublimaze) injection 25 mcg 25 mcg, Intravenous, Every 5 min PRN, 2 doses, Starting on 01/18/25 at 1103, Until 01/18/25 at 1200, Routine, Recovery (Phase I only), pain score of 3-4 out of 10 Given 01/18/2025 12:00 PM EDT 25 mcg Given 01/18/2025 11:33 AM EDT 25 mcg fentaNYL (Sublimaze) injection 50 mcg 50 mcg, Intravenous, Once, 1 dose, On Mon01/15/25 at 2150, STAT Given 01/15/2025 10:13 PM EDT 50 mcg HYDROmorphone (Dilaudid) injection 0.25 mg 0.25 mg, Intravenous, Once, 1 dose, On Mon01/16/25 at 0445, STAT Given 01/16/2025 4:52 AM EDT 0.25 mg HYDROmorphone (Dilaudid) injection 0.5 mg 0.5 mg, Intravenous, Every 10 min PRN, 2 doses, Starting on 01/18/25 at 1103, Until 01/18/25 at 1318, Routine, Recovery (Phase I only), pain score of 9-10 out of 10 Given 01/18/2025 11:33 AM EDT 0.5 mg HYDROmorphone (Dilaudid) injection 0.5 mg 0.5 mg, Intravenous, Every 10 min PRN, 2 doses, Starting on 01/20/25 at 1047, Until Mon01/20/25 at 1217, Routine, Recovery (Phase I only), pain score of 9-10 out of 10 Given 01/20/2025 11:36 AM EDT 0.5 mg ibuprofen tablet 400 mg 400 mg, Oral, Every 4 hours PRN, Starting on Sneha 01/16/25 at 0753, Until Mon01/22/25 at 1922, Routine, mild pain Given 01/21/2025 9:08 PM EDT 400 mg Given 01/21/2025 4:32 AM EDT 400 mg Given 01/20/2025 8:03 PM EDT 400 mg iohexol (OMNIPaque) 300 MG/ML injection 100 mL 100 mL, Intravenous, Once in imaging, 1 dose, Starting on Mon01/16/25 at 0102, Until Mon01/16/25 at 0103, Routine, Imaging Protocol Orders Given 01/16/2025 1:03 AM EDT 100 mL lactated Ringer's infusion 75 mL/hr, Intravenous, Continuous, Starting on Mon01/16/25 at 0755, Until Mon01/17/25 at 0606, Routine New Bag 01/16/2025 9:57 AM EDT 75 mL/hr 75 mL/h r lactated Ringer's infusion 100 mL/hr, Intravenous, Continuous, Starting on Mon01/19/25 at 0915, Until Mon01/19/25 at 2014, Routine New Bag 01/19/2025 10:15 AM EDT 100 mL/hr 100 mL/hr magnesium hydroxide (Milk of Magnesia) 400 MG/5ML suspension 30 mL 30 mL, Oral, Daily PRN, Starting on Mon01/16/25 at 0750, Until Mon01/22/25 at 1922, Routine, constipation, if no bowel movement for 48 hours mupirocin (Bactroban) 2 % ointment 1 Application Each Nostril, 2 times daily, 10 doses, First dose on Mon01/20/25 at 0945, Last dose on Mon01/24/25 at 2100, Routine Given 01/22/2025 8:47 AM EDT 1 Application Given 01/21/2025 9:08 PM EDT 1 Application Given 01/21/2025 9:01 AM EDT 1 Application naloxone (Narcan) injection 0.08 mg 0.08 mg, Intravenous, As needed, Starting on Mon01/16/25 at 0753, Until Mon01/22/25 at 1922, Routine, respiratory depression, every 2 minutes nicotine (Nicoderm CQ) 21 MG/24HR patch 1 patch 1 patch, Transdermal, Daily, First dose on Mon01/17/25 at 1215, Until Discontinued, Routine Medication Applied 01/22/2025 8:47 AM EDT 1 patch Left Arm Medication Applied 01/21/2025 9:01 AM EDT 1 patch Left Arm Medication Applied 01/20/2025 4:03 PM EDT 1 patch Other ondansetron (Zofran) injection 4 mg 4 mg, Intravenous, Once, 1 dose, On Mon01/15/25 at 2150, STAT Given 01/15/2025 10:13 PM EDT 4 mg ondansetron (Zofran) injection 4 mg 4 mg, Intravenous, Once as needed, 1 dose, Starting on Mon01/20/25 at 1047, Until Mon01/20/25 at 1142, Routine, Recovery (Phase I only), nausea, vomiting Given 01/20/2025 11:42 AM EDT 4 mg ondansetron ODT (Zofran-ODT) disintegrating tablet 4 mg 4 mg, Oral, Every 6 hours PRN, Starting on Mon01/16/25 at 0753, Until Mon01/22/25 at 1922, Routine, nausea, vomiting oxyCODONE (Roxicodone) immediate release tablet 10 mg 10 mg, Oral, Once as needed, 2 doses, Starting on 01/18/25 at 1103, Until 01/18/25 at 1318, Routine, Recovery (Phase I only), pain score of 6-8 out of 10 Given 01/18/2025 11:33 AM EDT 10 mg oxyCODONE (Roxicodone) immediate release tablet 10 mg 10 mg, Oral, Once as needed, 2 doses, Starting on Mon01/20/25 at 1047, Until Mon01/20/25 at 1217, Routine, Recovery (Phase I only), pain score of 6-8 out of 10 Given 01/20/2025 11:36 AM EDT 10 mg oxyCODONE (Roxicodone) immediate release tablet 5 mg 5 mg, Oral, Every 4 hours PRN, Starting on Mon01/16/25 at 0753, Until Mon01/21/25 at 0847, Routine, moderate pain Given 01/21/2025 4:33 AM EDT 5 mg Given 01/21/2025 12:21 AM EDT 5 mg Given 01/20/2025 8:03 PM EDT 5 mg oxyCODONE (Roxicodone) immediate release tablet 5 mg 5 mg, Oral, Every 6 hours PRN, Starting on Mon01/21/25 at 0847, Until Mon01/22/25 at 1922, Routine, severe pain Given 01/22/2025 5:01 AM EDT 5 mg Given 01/21/2025 11:20 PM EDT 5 mg Given 01/21/2025 6:57 PM EDT 5 mg piperacillin-tazobactam (Zosyn) 4.5 g in sodium chloride 0.9% 100 mL IVPB (vial adapter required) 4.5 g, Intravenous, Once, 1 dose, On Mon01/16/25 at 0725, STAT New Bag 01/16/2025 7:40 AM EDT 4.5 g 220 mL/hr piperacillin-tazobactam (Zosyn) 4.5 g in sodium chloride 0.9% 100 mL IVPB (vial adapter required) 4.5 g, Intravenous, Every 6 hours, First dose on Mon01/16/25 at 1300, Until Discontinued, Routine New Bag 01/21/2025 4:32 AM EDT 4.5 g 36. 7 mL/hr New Bag 01/20/2025 10:47 PM EDT 4.5 g 36.7 mL/hr New Bag 01/20/2025 3:56 PM EDT 4.5 g 36.7 mL/hr polyethylene glycol (Miralax) packet 17 g 17 g, Oral, Daily, First dose on Mon01/16/25 at 0900, Until Discontinued, Routine Given 01/17/2025 8:37 AM EDT 17 g senna-docusate (Janeth-Colace) 8.6-50 MG per tablet 1 tablet 1 tablet, Oral, 2 times daily, First dose on Mon01/16/25 at 0900, Until Discontinued, Routine Given 01/18/2025 8:21 PM EDT 1 tablet Given 01/17/2025 8:30 PM EDT 1 tablet Given 01/17/2025 8:37 AM EDT 1 tablet senna-docusate (Janeth-Colace) 8.6-50 MG per tablet 1 tablet 1 tablet, Oral, Nightly, First dose (after last modification) on 01/20/25 at 2100, Until Discontinued, Routine sodium chloride 0.9 % flush 10 mL 10 mL, Intravenous, Every 12 hours, First dose on Sneha 01/16/25 at 0755, Until Discontinued, Routine Given 01/22/2025 6:20 AM EDT 10 mL Given 01/21/2025 9:25 PM EDT 10 mL Given 01/21/2025 6:50 AM EDT 10 mL sodium chloride 0.9 % flush 10 mL 10 mL, Intravenous, As needed, Starting on Sneha 01/16/25 at 0750, Until Mon01/22/25 at 1922, Routine, line care sodium chloride 0.9 % flush 10 mL 10 mL, Intravenous, Every 12 hours, First dose on 01/18/25 at 0930, Until Discontinued, Routine, Holding - Preprocedure Given 01/18/2025 11:34 AM EDT 10 mL sodium chloride 0.9 % infusion 75 mL/hr, Intravenous, Continuous, Starting on Mon01/17/25 at 0700, Until Mon01/17/25 at 0849, Routine New Bag 01/17/2025 6:21 AM EDT 75 mL/hr 75 mL/hr sodium hypochlorite (Dakin's (QUARTER-Strength)) external solution 473 mL Irrigation, Once, 1 dose, On 01/18/25 at 1215, Routine Given 01/18/2025 1:23 PM EDT 473 mL traMADol (Ultram) tablet 50 mg 50 mg, Oral, Every 6 hours PRN, Starting on Sneha 01/16/25 at 0753, Until 01/22/25 at 1922, Routine, severe pain, pain not responsive to non-opioid analgesics Given 01/22/2025 9:26 AM EDT 50 mg Given 01/18/2025 11:33 AM EDT 50 mg Given 01/16/2025 12:26 PM EDT 50 mg vancomycin (Vancocin) 2,500 mg in sodium chloride 0.9 % 500 mL IVPB 2,500 mg, Intravenous, Once, 1 dose, On Sneha 01/16/25 at 0725, at 228 mL/hr, STAT Given 01/16/2025 9:43 AM EDT 2,500 mg 228 mL/hr vancomycin in NS (Vancocin) IVPB 1,500 mg 1,500 mg, Intravenous, Every 8 hours, First dose on Sneha 01/16/25 at 1800, Until Discontinued, at 166.7 mL/hr, Routine New Bag 01/19/2025 12:05 PM EDT 1,500 mg 166.7 mL/hr New Bag 01/19/2025 2:06 AM EDT 1,500 mg 166.7 mL/hr New Bag 01/18/2025 5:00 PM EDT 1,500 mg 166.7 mL/hr vancomycin in NS (Vancocin) IVPB 1,500 mg 1,500 mg, Intravenous, Once, 1 dose, On 01/20/25 at 1200, at 166.7 mL/hr, Routine New Bag 01/20/2025 2:00 PM EDT 1,500 mg 166.7 mL/h r documented in this encounter Active and Recently Administered Medications Times are shown in EDT. Scheduled Medication Order 01/20/2025 01/21/2025 01/22/2025 acetaminophen (Tylenol) tablet 1,000 mg 1,000 mg, Oral, Every 6 hours scheduled, First dose on Sneha 01/16/25 at 0755, Until Discontinued, Routine 0004 (Given - Provider: Taryn Miranda RN)0614 (Given - Provider: Taryn Miranda RN)0924 (MAR Hold - Provider: Automatic Transfer Provider - Reason: Patient in procedure)1200 (Dose Auto Held - Provider: Automatic Transfer Provider)1217 (MAR Unhold - Provider: Automatic Transfer Provider)1853 (Given - Provider: Alem Witt RN) 0021 (Given - Provider: Taryn Miranda RN)0617 (Given - Provider: Taryn Miranda RN)1221 (Given - Provider: Katalina Martinez, SHEREEN)1709 (Not Given - Provider: Katalina Martinez, SHEREEN - Reason: Hold for condition: must add comment - Comment: cummulitative overdose, holding this dose)2321 (Given - Provider: Taryn Miranda RN) 0501 (Given - Provider: Taryn Miranda RN)1249 (Given - Provider: Leigh Rg RN)1800 (Canceled Entry - Provider: Automatic Discharge Provider - Comment: Automatically canceled at discontinue of medication order) ceFAZolin (Ancef) injection 3 g (COMPLETED) 3 g, Intravenous, Every 8 hours, 3 doses, First dose on Mon01/20/25 at 2000, Last dose on Mon01/21/25 at 1200, Routine, Recovery(Phase II-Outpatient)/On Unit(Inpatient) 2001 (Given - Provider: Taryn Miranda RN) 0432 (Given - Provider: Taryn Miranda RN)1221 (Given - Provider: Katalina Martinez, SHEREEN) DAPTOmycin (Cubicin) 1,100 mg in sodium chloride 0.9 % 100 mL IVPB (COMPLETED)(Linked Group 1) 1,100 mg, Intravenous, Every 24 hours, 1 dose, First dose (after last modification) on Mon01/22/25 at 0900, Routine 0847 (New Bag - Provider: Leigh Rg RN) DAPTOmycin (Cubicin) 1,100 mg in sodium chloride 0.9 % 100 mL IVPB(Linked Group 1) 1,100 mg, Intravenous, Every 24 hours, First dose (after last modification) on Mon01/22/25 at 2100, Until Discontinued, Routine DAPTOmycin (Cubicin) 1,150 mg in sodium chloride 0.9 % 100 mL IVPB (COMPLETED) 1,150 mg (rounded from 1,100 mg = 10 mg/kg 110 kg Adjusted weight), Intravenous, Once, 1 dose, On Mon01/21/25 at 0945, Routine 1011 (New Bag - Provider: Katalina Martinez, SHEREEN) enoxaparin (Lovenox) syringe 60 mg 60 mg, Subcutaneous, 2 times daily, First dose on Mon01/16/25 at 0900, Until Discontinued, Routine 0820 (Not Given - Provider: Alem Witt RN - Reason: Hold for condition: must add comment - Comment: patient going to [place] today)0924 (OCT Hold - Provider: Automatic Transfer Provider - Reason: Patient in procedure)1217 (MAR Unhold - Provider: Automatic Transfer Provider)2001 (Given - Provider: Taryn Miranda RN) 09 (Given - Provider: Katalina Martinez, SHEREEN)2106 (Given - Provider: Taryn Miranda RN) 0848 (Given - Provider: Leigh Rg RN) mupirocin (Bactroban) 2 % ointment 1 Application Each Nostril, 2 times daily, 10 doses, First dose on Mon01/20/25 at 0945, Last dose on Mon01/24/25 at 2100, Routine 0924 (OCT Hold - Provider: Automatic Transfer Provider - Reason: Patient in procedure)0945 (Dose Auto Held - Provider: Automatic Transfer Provider)121 (OCT Unhold - Provider: Automatic Transfer Provider)2002 (Given - Provider: Taryn Miranda RN) 09 (Given - Provider: Katalina Martinez, SHEREEN)2107 (Given - Provider: Taryn Miranda RN) 0847 (Given - Provider: Leigh Rg RN) nicotine (Nicoderm CQ) 21 MG/24HR patch 1 patch 1 patch, Transdermal, Daily, First dose on Mon01/17/25 at 1215, Until Discontinued, Routine 0924 (OCT Hold - Provider: Automatic Transfer Provider - Reason: Patient in procedure)121 (OCT Unhold - Provider: Automatic Transfer Provider)1603 (Medication Applied - Provider: Alem Witt RN - Comment: left shoulder) 0901 (Medication Applied - Provider: Katalina Martinez, SHEREEN) 0847 (Medication Applied - Provider: Leigh Rg RN) piperacillin-tazobact am (Zosyn) 4.5 g in sodium chloride 0.9% 100 mL IVPB (vial adapter required) (CANCELED) 4.5 g, Intravenous, Every 6 hours, First dose on Mon01/16/25 at 1300, Until Discontinued, Routine 0004 (New Bag - Provider: Taryn Miranda RN)0613 (New Bag - Provider: Taryn Miranda RN)1556 (New Bag - Provider: Alem Witt RN - Comment: priority conflict)2247 (New Bag - Provider: Taryn Miranda RN) 0432 (New Bag - Provider: Taryn Miranda RN) polyethylene glycol (Miralax) packet 17 g 17 g, Oral, Daily, First dose on Mon01/16/25 at 0900, Until Discontinued, Routine 0819 (Not Given - Provider: Alem Witt RN - Reason: Hold for condition: must add comment - Comment: patient had multiple bowel movements yesterday)0924 (OCT Hold - Provider: Automatic Transfer Provider - Reason: Patient in procedure)1217 (OCT Unhold - Provider: Automatic Transfer Provider) 09 (Not Given - Provider: Katalina Martinez RN - Reason: Patient/family refused) 0847 (Not Given - Provider: Leigh Rg RN - Reason: Patient/family refused) senna-docusate (Janeth-Colace) 8.6-50 MG per tablet 1 tablet 1 tablet, Oral, Nightly, First dose (after last modification) on Mon01/20/25 at 2100, Until Discontinued, Routine 0924 ([facility] Hold - Provider: Automatic Transfer Provider - Reason: Patient in procedure)121 ([facility] Unhold - Provider: Automatic Transfer Provider)2000 (Not Given - Provider: Taryn Miranda RN - Reason: Patient/family refused) 2124 (Not Given - Provider: Taryn Miranda RN - Reason: Patient/family refused) sodium chloride 0.9 % flush 10 mL(Linked Group 2) 10 mL, Intravenous, Every 12 hours, First dose on Mon01/16/25 at 0755, Until Discontinued, Routine 0650 (Given - Provider: Taryn Miranda RN)09 ([facility] Hold - Provider: Automatic Transfer Provider - Reason: Patient in procedure)121 ([facility] Unhold - Provider: Automatic Transfer Provider)1927 (Given - Provider: Taryn Miranda RN) 0650 (Given - Provider: Taryn Miranda RN)2124 (Given - Provider: Taryn Miranda RN) 06 (Given - Provider: Taryn Miranda RN) vancomycin in NS (Vancocin) IVPB 1,500 mg (COMPLETED) 1,500 mg, Intravenous, Once, 1 dose, On Mon01/20/25 at 1200, at 166.7 mL/hr, Routine 1400 (New Bag - Provider: Alem Witt RN) PRN Medication Order 01/20/2025 01/21/202501/22/2025 bisacodyl (Dulcolax) suppository 10 mg 10 mg, Rectal, Daily PRN, Starting on Sneha 01/16/25 at 0750, Until Mon01/22/25 at 1922, Routine, constipation, if no bowel movement for 72 hours and no response to magnesium hydroxide 0924 ([facility] Hold - Provider: Automatic Transfer Provider - Reason: Patient in procedure)121 ([facility] Unhold - Provider: Automatic Transfer Provider) HYDROmorphone (Dilaudid) injection 0.5 mg (CANCELED) 0.5 mg, Intravenous, Every 10 min PRN, 2 doses, Starting on 01/20/25 at 1047, Until 01/20/25 at 1217, Routine, Recovery (Phase I only), pain score of 9-10 out of 10 1136 (Given - Provider: Nanda Salas, RN) ibuprofen tablet 400 mg 400 mg, Oral, Every 4 hours PRN, Starting on Sneha 01/16/25 at 0753, Until Mon01/22/25 at 1922, Routine, mild pain 0411 (Given - Provider: Taryn Miranda, SHEREEN)09 ([facility] Hold - Provider: Automatic Transfer Provider - Reason: Patient in procedure)121 ([facility] Unhold - Provider: Automatic Transfer Provider)163 (Not Given - Provider: Alem Witt RN - Reason: Patient/family refused)2002 (Given - Provider: Taryn Miranda, RN) 043 (Given - Provider: Taryn Miranda, RN)2107 (Given - Provider: Taryn Miranda, RN) magnesium hydroxide (Milk of Magnesia) 400 MG/5ML suspension 30 mL 30 mL, Oral, Daily PRN, Starting on Sneha 01/16/25 at 0750, Until Mon01/22/25 at 1922, Routine, constipation, if no bowel movement for 48 hours 09 ([facility] Hold - Provider: Automatic Transfer Provider - Reason: Patient in procedure)121 ([facility] Unhold - Provider: Automatic Transfer Provider) naloxone (Narcan) injection 0.08 mg 0.08 mg, Intravenous, As needed, Starting on Sneha 01/16/25 at 0753, Until Mon01/22/25 at 1922, Routine, respiratory depression, every 2 minutes 09 ([facility] Hold - Provider: Automatic Transfer Provider - Reason: Patient in procedure)1217 ([facility] Unhold - Provider: Automatic Transfer Provider) ondansetron (Zofran) injection 4 mg (COMPLETED) 4 mg, Intravenous, Once as needed, 1 dose, Starting on Mon01/20/25 at 1047, Until Mon01/20/25 at 1142, Routine, Recovery (Phase I only), nausea, vomiting 1142 (Given - Provider: Nanda Salas RN) ondansetron ODT (Zofran-ODT) disintegrating tablet 4 mg 4 mg, Oral, Every 6 hours PRN, Starting on Sneha 01/16/25 at 0753, Until Mon01/22/25 at 1922, Routine, nausea, vomiting 0924 ([facility] Hold - Provider: Automatic Transfer Provider - Reason: Patient in procedure)121 ([facility] Unhold - Provider: Automatic Transfer Provider) oxyCODONE (Roxicodone) immediate release tablet 10 mg (CANCELED)(Linked Group 3) 10 mg, Oral, Once as needed, 2 doses, Starting on Mon01/20/25 at 1047, Until Mon01/20/25 at 1217, Routine, Recovery (Phase I only), pain score of 6-8 out of 10 1136 (Given - Provider: Nanda Salas, RN) oxyCODONE (Roxicodone) immediate release tablet 5 mg (CANCELED) 5 mg, Oral, Every 4 hours PRN, Starting on Sneha 01/16/25 at 0753, Until Mon01/21/25 at 0847, Routine, moderate pain 0004 (Given - Provider: Taryn Miranda RN)0411 (Given - Provider: Taryn Miranda RN)0924 ([facility] Hold - Provider: Automatic Transfer Provider - Reason: Patient in procedure)1217 ([facility] Unhold - Provider: Automatic Transfer Provider)1556 (Given - Provider: Alem Witt RN)2002 (Given - Provider: Taryn Miranda RN) 0021 (Given - Provider: Taryn Miranda RN)0433 (Given - Provider: Taryn Miranda RN) oxyCODONE (Roxicodone) immediate release tablet 5 mg 5 mg, Oral, Every 6 hours PRN, Starting on Mon01/21/25 at 0847, Until Mon01/22/25 at 1922, Routine, severe pain 0903 (Given - Provider: Katalina Martinez, SHEREEN)1857 (Given - Provider: Katalina Martinez RN)2320 (Given - Provider: Taryn Miranda RN) 0501 (Given - Provider: Taryn Miranda RN)0924 (Not Given - Provider: Leigh Rg RN - Reason: Order parameters not met) sodium chloride 0.9 % flush 10 mL(Linked Group 2) 10 mL, Intravenous, As needed, Starting on Sneha 01/16/25 at 0750, Until Mon01/22/25 at 1922, Routine, line care 0924 ([facility] Hold - Provider: Automatic Transfer Provider - Reason: Patient in procedure)1217 ([facility] Unhold - Provider: Automatic Transfer Provider) traMADol (Ultram) tablet 50 mg 50 mg, Oral, Every 6 hours PRN, Starting on Sneha 01/16/25 at 0753, Until Mon01/22/25 at 1922, Routine, severe pain, pain not responsive to non-opioid analgesics 0924 ([facility] Hold - Provider: Automatic Transfer Provider - Reason: Patient in procedure)121 ([facility] Unhold - Provider: Automatic Transfer Provider) 0926 (Given - Provider: Leigh Rg RN) vancomycin (Vancocin) vial for injection (CANCELED) As needed, Starting on Mon01/20/25 at 1048, Until Mon01/20/25 at 1128, Routine, Intraprocedure 1048 (Given - Provider: Bob Nava MD - Comment: into incision site) Linked Groups Order Group 1: DAPTOmycin (Cubicin) 1,100 mg in sodium chloride 0.9 % 100 mL IVPB (COMPLETED)Jump to med 1,100 mg, Intravenous, Every 24 hours, 1 dose, First dose (after last modification) on Mon01/22/25 at 0900, Routine Followed by DAPTOmycin (Cubicin) 1,100 mg in sodium chloride 0.9 % 100 mL IVPBJump to med 1,100 mg, Intravenous, Every 24 hours, First dose (after last modification) on Mon01/22/25 at 2100, Until Discontinued, Routine Group 2: Insert peripheral IV (CANCELED) Once, On Sneha 01/16/25 at 0751, For 1 occurrence And Saline lock IV (CANCELED) Once, On Sneha 01/16/25 at 0751, For 1 occurrence And sodium chloride 0.9 % flush 10 mLJump to med 10 mL, Intravenous, Every 12 hours, First dose on Sneha 01/16/25 at 0755, Until Discontinued, Routine And sodium chloride 0.9 % flush 10 mLJump to med 10 mL, Intravenous, As needed, Starting on Sneha 01/16/25 at 0750, Until Mon01/22/25 at 1922, Routine, line care Group 3: oxyCODONE (Roxicodone) immediate release tablet 5 mg (CANCELED) 5 mg, Oral, Once as needed, 2 doses, Starting on 01/20/25 at 1047, Until Mon01/20/25 at 1217, Routine, Recovery (Phase I only), pain score of 3-5 out of 10 Or oxyCODONE (Roxicodone) immediate release tablet 10 mg (CANCELED)Jump to med 10 mg, Oral, Once as needed, 2 doses, Starting on Mon01/20/25 at 1047, Until 01/20/25 at 1217, Routine, Recovery (Phase I only), pain score of 6-8 out of 10 documented in this encounter Additional Health Concerns Infection Onset Date Last Indicated Resolved Time 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
--- OUTSIDE RECORDS SUMMARY | 2025-01-18 09:01 | XMS_ITS | Encounter Summary ---
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 spoke with patient to complete this Initial Case Management Assessment. 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 No Secondary Emergency Contact: Jenny Buenrostro Address: [address] [place] [address] Mobile Relation: Mother Insurance: Primary Visit Coverage Payer Plan Sponsor Code Group Number Group Name [employer]ICA[employer] MOLINA [employer]ICAID Primary Visit Coverage Subscriber Subscriber ID Subscriber Name Subscriber N Subscriber Address [id number] RAVIN RIBEIRO [id number] [place] [address] Patient information: Primary Caregiver: Self Support System: Immediate family Daily Living Activities: Functional Status: Independent Living Arrangements: Spouse/Significant other, Family Type of Residence: Private residence, Single Level [address] [place] [address] Current DME: Equipment Currently Used at Home: [...] Outpatient Dialysis Services: Living Will/Advance Directive/Power of Php Software Engineer /Guardian: Have you reviewed your Advance Directive [...] Pt states he lives at home in [place] with his , CONSTANZA, and two small 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 salon coordinator and Interventions: Assessed: Wound 01/01/25 Surgical Open Surgical Incision Pretibial Left;Proximal (Active) Wound Assessment Red 01/15/25 2150 Margins Well-defined edges;Attached edges 01/15/25 2150 Janeth-Wound Assessment Red 01/15/25 2150 Closure Martha 01/15/25 2150 Wound 01/01/25 Face Left;Upper (Active) [...] please contact the Orthopedic Transition Nurse at [phone] Monday through Monday 8:00 am to 2:30 [...] tibial pulse, cap refill <2 sec, digits [facility] Orthopedic Surgery Tertiary Exam Completed 01/16/25 [...] exams. Mitch Giron MD PGY-3, Orthopaedic Surgery [facility] Orthopaedic Trauma Service Pager: [phone] Orthopaedic Recon/Spine/Foot and Ankle Service Pager: [phone] Cosigned by Sachin Garza MD at 01/18/2025 [...] your wound. Based upon recent changes to [place] law related to prescribing opioid pain medications, [...] please contact the Orthopedic Transition Nurse at [phone] Monday through Monday 8:00 am to 2:30 [...] examinations WRadha Howard MD PGY-2, Orthopaedic Surgery [facility] Cosigned by Sachin Garza MD [...] fracture Tabitha Howard MD PGY-2, Orthopaedic Surgery [facility] Orthopaedic Trauma Service Pager: [phone] Orthopaedic Recon/Spine/Foot and Ankle Service Pager: [phone] [1] History reviewed. No pertinent past medical [...] 25 tablet 0 [4] Allergies Allergen Reactions Hardwick Hives Cosigned by Sachin Garza MD at [...] this ED in conjunction with Dr. Mann. -[facility] records were reviewed and used in this [...] Miguel 01/15/252224 STAT Canceled TYRONE HOWARD Miguel 01/15/25 222 STAT Canceled TYRONE HOWARD Miguel 01/15/25 222 STAT Canceled TYRONE HOWARD Miguel 01/15/25 222 NPO diet NPO except: Sips with meds Diet effective midnight Comments: To OR with Ortho Acknowledged TYRONE HOWARD Miguel 01/15/25 222 ECG Adult Once Comments: Preop Clearance Preliminary result LEETYRONE Miguel 01/15/252224 XR Chest 1 View One time imaging Comments: Preop Clearance Final result LEE TYRONE Miguel 01/15/25 222 Type and Screen Once Final result TYRONE [...] CBC w/diff STAT Final result GUS VIGIL 01/15/252133 PT-INR STAT Final result GUS VIGIL 01/15/252133 CMP STAT Final result GUS VIGIL Assessment: Clinical Impressions as of 01/16/25 06 Sepsis following procedure, initial encounter ([facility]) Cellulitis of left lower [...] diagnosis was Sepsis following procedure, initial encounter ([facility]). Diagnoses of Cellulitis of [...] Drug use: Never [5] Allergies Allergen Reactions Hardwick Hives Gus Vigil APRN 01/16/25656 Cosigned by [...] 01/16/25 0733 Sepsis following procedure, initial encounter ([facility]) Cellulitis of left lower extremity Acute postoperative pain Ultimately, this patient Was admitted (Admission) The primary encounter diagnosis was Sepsis following procedure, initial encounter ([facility]). Diagnoses of Cellulitis of [...] Description 03/27/2025 9:30 AM EDT Office Visit [facility] [address] [place] [address] Santiago Collado MD [address] [place] [address] 04/07/2025 10:45 AM EDT Appointment [facility] [address] [place] [address] 04/07/2025 11:20 AM EDT Office Visit [facility] Orthopaedic Surgery & Sports Medicine [address] [place] [address] Lawrence Hayes MD [address] [place] [address] Scheduled Orders Name Type Priority [...] 44.4(H) <=8.0 mg/L 01/22/2025 9:25 AM EDT [facility] Blood Venous blood specimen / Unknown Venipuncture / Unknown 01/22/2025 5:04 AM EDT 01/22/2025 5:31 AM EDT Narrative [facility] - 01/22/2025 9:25 AM EDT This CRP test is appropriate for assessment of infection, systemic inflammation and/or tissue injury. To assess cardiovascular disease risk order high sensitivity CRP (CRPH). us Michelle ZULUAGA LAB BLOOD ORDERABLES Final Res ult [facility] [address] [place] [address] * Lavender Top (01/22/2025 5:04 AM EDT) Extra Hold for add-ons 01/22/2025 8:02 AM EDT [facility] Comment:Auto resulted. Blood Venous blood specimen / Unknown 01/22/2025 5:04 AM EDT 01/22/2025 5:30 AM EDT us Sachin Garza MD LAB BLOOD ORDERABLES Final R esult [facility] [address] [place] [address] * (ABNORMAL) Basic metabolic panel (01/22/2025 5:04 AM EDT) Glucose, Plasma 91 74 - 99 mg/dL 01/22/2025 6:01 AM EDT [facility] BUN, Plasma 33(H) 7 - 21 mg/dL 01/22/2025 6:01 AM EDT [facility] Creatinine, Plasma 1.47(H) 0.70 - 1.20 mg/dL 01/22/2025 6:01 AM EDT [facility] BUN/Creatinine Ratio 22 01/22/2025 6:01 AM EDT [facility] Sodium, Plasma 137 136 - 145 mmol/L 01/22/2025 6:01 AM EDT [facility] Potassium, Plasma 5.3(H) 3.6 - 4.9 mmol/L 01/22/2025 6:01 AM EDT [facility] Chloride, Plasma 100 97 - 107 mmol/L 01/22/2025 6:01 AM EDT [facility] CO2, Plasma 28 22 - 29 mmol/L 01/22/2025 6:01 AM EDT [facility] Anion Gap 9 6 - 16 mmol/L 01/22/2025 6:01 AM EDT [facility] Total Calcium, Plasma 9.6 8.9 - 10.2 mg/dL 01/22/2025 6:01 AM EDT [facility] eGFRcr 63.4 mL/min/1.7 3m*2 01/22/2025 6:01 AM EDT [facility] Comment:Reported eGFRcr in m L/min/1.73m2 is based the CKD-EPI 2020 equation that does not use a race coefficient. Blood Venous blood specimen / Unknown Venipuncture / Unknown 01/22/2025 5:04 AM EDT 01/22/2025 5:31 AM EDT Sachin Garza MD LAB BLOOD ORDERABLES Final R esult [facility] [address] [place] [address] * (ABNORMAL) CBC (01/21/2025 7:29 PM EDT) WBC Count 10.10 3.70 - 10.30 10*3/uL LAB HEMATOLOGY METHOD 01/21/2025 7:42 PM EDT [facility] RBC Count 3.82(L) 4.60 - 6.10 10*6/uL LAB HEMATOLOGY METHOD 01/21/2025 7:42 PM EDT [facility] HGB 11.5(L) 13.7 - 17.5 g/dL LAB HEMATOLOGY METHOD 01/21/2025 7:42 PM EDT [facility] HCT 35.2(L) 40.0 - 51.0 % LAB HEMATOLOGY METHOD 01/21/2025 7:42 PM EDT [facility] Platelet Count 446(H) 155 - 369 10*3/uL LAB HEMATOLOGY METHOD 01/21/2025 7:42 PM EDT [facility] MCV 92 79 - 98 fL LAB HEMATOLOGY METHOD 01/21/2025 7:42 PM EDT [facility] MCH 30.1 26.0 - 32.0 pg LAB HEMATOLOGY METHOD 01/21/2025 7:42 PM EDT [facility] MCHC 32.7 30.7 - 35.5 g/dL LAB HEMATOLOGY METHOD 01/21/2025 7:42 PM EDT [facility] RDW 13.1 11.5 - 14.5 % LAB HEMATOLOGY METHOD 01/21/2025 7:42 PM EDT [facility] MPV 9.1 8.8 - 12.5 fL LAB HEMATOLOGY METHOD 01/21/2025 7:42 PM EDT [facility] nRBC 0.0 <=0.0 per 100 WBCs LAB HEMATOLOGY METHOD 01/21/2025 7:42 PM EDT [facility] Blood Venous blood specimen / Unknown Venipuncture / Unknown 01/21/2025 7:29 PM EDT 01/21/2025 7:35 PM EDT us Sachin Garza MD LAB BLOOD ORDERABLES Final R esult [facility] [address] [place] [address] * (ABNORMAL) Basic metabolic panel (01/21/2025 7:29 PM EDT) Glucose, Plasma 122(H) 74 - 99 mg/dL 01/21/2025 8:03 PM EDT [facility] BUN, Plasma 31(H) 7 - 21 mg/dL 01/21/2025 8:03 PM EDT [facility] Creatinine, Plasma 1.64(H) 0.70 - 1.20 mg/dL 01/21/2025 8:03 PM EDT [facility] BUN/Creatinine Ratio 19 01/21/2025 8:03 PM EDT [facility] Sodium, Plasma 139 136 - 145 mmol/L 01/21/2025 8:03 PM EDT [facility] Potassium, Plasma 4.6 3.6 - 4.9 mmol/L 01/21/2025 8:03 PM EDT [facility] Chloride, Plasma 101 97 - 107 mmol/L 01/21/2025 8:03 PM EDT [facility] CO2, Plasma 26 22 - 29 mmol/L 01/21/2025 8:03 PM EDT [facility] Anion Gap 12 6 - 16 mmol/L 01/21/2025 8:03 PM EDT [facility] Total Calcium, Plasma 9.1 8.9 - 10.2 mg/dL 01/21/2025 8:03 PM EDT [facility] eGFRcr 55.6 mL/min/1.7 3m*2 01/21/2025 8:03 PM EDT [facility] Comment:Reported eGFRcr in m L/min/1.73m2 is based the CKD-EPI 2020 equation that does not use a race coefficient. Blood Venous blood specimen / Unknown Venipuncture / Unknown 01/21/2025 7:29 PM EDT 01/21/2025 7:35 PM EDT Sachin Garza MD LAB BLOOD ORDERABLES Final R esult [facility] [address] [place] [address] * PICC SINGLE LUMEN (SMARTFORM LINK) (01/21/2025 7:01 PM EDT) Narrative Norma Miranda RN - 01/21/2025 7:01 PM EDT Norma Miranda RN 01/21/2025 7:19 PM Insert PICC line Date/Time: 01/21/2025 7:01 PM Performed by: Norma Miranda RN Authorized by: Sachin Garza MD [place] Protocol: Verbal consent obtained?: Yes Written consent [...] preference Patient position: Supine Catheter Lot #: [id number] Catheter horse wrangler: Bard PowerPICC Solo Catheter placed: Single lumen [...] at day 4 2024 7:15 AM EDT [facility] Gram Stain Result No polymorphonuclear leukocytes seen 01/25/2025 7:15 AM EDT [facility] Gram Stain Result No organisms seen 01/25/2025 7:15 AM EDT [facility] Swab Structure of left knee region / Unknown 01/20/2025 10:42 AM EDT 01/20/2025 11:25 AM EDT Comment:Pre-op diagnosis: Closed fracture of left tibial plateau with routine healing, subsequent encounter [S82.142D] us Bob Nava MD LAB MICROBIOLOGY - GENERAL O RDERABLES Final Result Performing Organization Address [facility]/ZIP Co de Phone Number [facility] [address] [place] [address] * Fungal Culture, Routine (01/20/2025 10:42 AM EDT) Culture No Fungal Growth at 1 Week 01/28/2025 7:34 AM EDT [facility] Swab Structure of left knee region / Unknown 01/20/2025 10:42 AM EDT 01/20/2025 11:25 AM EDT Comment:Pre-op diagnosis: Closed fracture of left tibial plateau with routine healing, subsequent encounter [S82.142D] us Bob Nava MD LAB MICROBIOLOGY - GENERAL O RDERABLES Final Result [facility] [address] [place] [address] * Anaerobic Culture (01/20/2025 10:42 AM EDT) Culture No growth at day 4 01/28/2025 7:09 AM EDT [facility] Swab Structure of left knee region / Unknown 01/20/2025 10:42 AM EDT 01/20/2025 11:25 AM EDT Comment:Pre-op diagnosis: Closed fracture of left tibial plateau with routine healing, subsequent encounter [S82.142D] us Bob Nava MD LAB MICROBIOLOGY - GENERAL O RDERABLES Final Result Performing Organization Address [facility]/ZIP Co de Phone Number [facility] [address] [place] [address] * Fungal Culture, Tissue and SYEDA (01/20/2025 10:30 AM EDT) Culture [place] Mycological 4 Weeks No Fungal Growth at 4 Weeks 02/18/2025 6:03 AM EDT [facility] SYEDA No fungal elements seen 02/18/2025 6:03 AM EDT [facility] Tissue Structure of left knee region / Unknown 01/20/2025 10:30 AM EDT 01/20/2025 11:23 AM EDT Comment:Pre-op diagnosis: Closed fracture of left tibial plateau with routine healing, subsequent encounter [S82.142D] us Bob Nava MD LAB MICROBIOLOGY - GENERAL O RDERABLES Final Result Performing Organization Address [facility] [place] [address] * AFB Culture, Non Respiratory Source and Acid Fast Stain (01/20/2025 10:30 AM EDT) AFB Culture No Mycobacterial Growth at 6 Weeks 03/04/2025 4:02 PM EDT [facility] Acid Fast Stain No acid fast bacilli seen 03/04/2025 4:02 PM EDT [facility] Tissue Structure of left knee region / Unknown 01/20/2025 10:30 AM EDT 01/20/2025 11:23 AM EDT Comment:Pre-op diagnosis: Closed fracture of left tibial plateau with routine healing, subsequent encounter [S82.142D] us Bob Nava MD LAB MICROBIOLOGY - GENERAL O RDERABLES Final Result [facility] [address] [place] [address] * Tissue Culture and Gram Stain (01/20/2025 10:30 AM EDT) Culture No growth at day 4 2024 7:15 AM EDT [facility] Gram Stain Result No polymorphonuclear leukocytes seen 01/25/2025 7:15 AM EDT [facility] Gram Stain Result No organisms seen 01/25/2025 7:15 AM EDT [facility] Tissue Structure of left knee region / Unknown 01/20/2025 10:30 AM EDT 01/20/2025 11:23 AM EDT Comment:Pre-op diagnosis: Closed fracture of left tibial plateau with routine healing, subsequent encounter [S82.142D] us Bob Nava MD LAB MICROBIOLOGY - GENERAL O RDERABLES Final Result Performing Organization Address [facility]/ZIP Co de Phone Number [facility] [address] [place] [address] * Anaerobic Culture (01/20/2025 10:30 AM EDT) Culture No growth at day 4 01/28/2025 7:09 AM EDT [facility] Tissue Structure of left knee region / Unknown 01/20/2025 10:30 AM EDT 01/20/2025 11:23 AM EDT Comment:Pre-op diagnosis: Closed fracture of left tibial plateau with routine healing, subsequent encounter [S82.142D] us Bob Nava MD LAB MICROBIOLOGY - GENERAL O RDERABLES Final Result Performing Organization Address [facility]/ZIP Co de Phone Number [facility] [address] [place] [address] * Fungal Culture, Tissue and SYEDA (01/20/2025 10:27 AM EDT) Culture [place] Mycological 4 Weeks No Fungal Growth at 4 Weeks 02/18/2025 6:03 AM EDT [facility] SYEDA No fungal elements seen 02/18/2025 6:03 AM EDT [facility] Tissue Structure of left knee region / Unknown 01/20/2025 10:27 AM EDT 01/20/2025 11:24 AM EDT Comment:Pre-op diagnosis: Closed fracture of left tibial plateau with routine healing, subsequent encounter [S82.142D] us Bob Nava MD LAB MICROBIOLOGY - GENERAL O RDERABLES Final Result Performing Organization Address [facility]/ZIP Co de Phone Number [facility] [address] [place] [address] * AFB Culture, Non Respiratory Source and Acid Fast Stain (01/20/2025 10:27 AM EDT) AFB Culture No Mycobacterial Growth at 6 Weeks 03/04/2025 4:15 PM EDT [facility] Acid Fast Stain No acid fast bacilli seen 03/04/2025 4:15 PM EDT [facility] Tissue Structure of left knee region / Unknown 01/20/2025 10:27 AM EDT 01/20/2025 11:24 AM EDT Comment:Pre-op diagnosis: Closed fracture of left tibial plateau with routine healing, subsequent encounter [S82.142D] us Bob Nava MD LAB MICROBIOLOGY - GENERAL O RDERABLES Final Result Performing Organization Address [facility]/ZIP Co de Phone Number [facility] [address] [place] [address] * Tissue Culture and Gram Stain (01/20/2025 10:27 AM EDT) Culture No growth at day 4 2024 7:15 AM EDT [facility] Gram Stain Result No organisms seen 01/25/2025 7:15 AM EDT [facility] Gram Stain Result No polymorphonuclear leukocytes seen 01/25/2025 7:15 AM EDT [facility] Tissue Structure of left knee region / Unknown 01/20/2025 10:27 AM EDT 01/20/2025 11:24 AM EDT Comment:Pre-op diagnosis: Closed fracture of left tibial plateau with routine healing, subsequent encounter [S82.142D] us Bob Nava MD LAB MICROBIOLOGY - GENERAL O RDERABLES Final Result Performing Organization Address [facility] Co de Phone Number [facility] [address] [place] [address] * Anaerobic Culture (01/20/2025 10:27 AM EDT) Culture No growth at day 4 01/28/2025 7:09 AM EDT [facility] Tissue Structure of left knee region / Unknown 01/20/2025 10:27 AM EDT 01/20/2025 11:24 AM EDT Comment:Pre-op diagnosis: Closed fracture of left tibial plateau with routine healing, subsequent encounter [S82.142D] us Bob Nava MD LAB MICROBIOLOGY - GENERAL O RDERABLES Final Result Performing Organization Address [facility] [place] [address] * (ABNORMAL) Creatine Kinase (CK), Total (01/20/2025 3:40 AM EDT) Creatine Kinase, Plasma 18(L) 49 - 320 U/L 01/21/2025 12:17 PM EDT [facility] Blood Venous blood specimen / Unknown Venipuncture / Unknown 01/20/2025 3:40 AM EDT 01/20/2025 3:57 AM EDT Sachin Garza MD LAB BLOOD ORDERABLES Final R esult Performing Organization Address [facility] [place] [address] * Vancomycin, random (01/20/2025 3:40 AM EDT) Vancomycin, Random, Plasma 20.1 ug/mL 01/20/2025 4:51 AM EDT [facility] Blood Venous blood specimen / Unknown Venipuncture / Unknown 01/20/2025 3:40 AM EDT 01/20/2025 3:57 AM EDT Sachin Garza MD LAB BLOOD ORDERABLES Final R esult Performing Organization Address [facility] de Phone Number [facility] [address] [place] [address] * Protime-INR (01/20/2025 3:40 AM EDT) Prothrombin Time 13.5 12.0 - 14.3 sec LAB COAGULATION METHOD 01/20/2025 4:17 AM EDT [facility] INR 1.0 0.9 - 1.1 LAB COAGULATION METHOD 01/20/2025 4:17 AM EDT [facility] Blood Venous blood specimen / Unknown Venipuncture / Unknown 01/20/2025 3:40 AM EDT 01/20/2025 3:56 AM EDT Narrative [facility] - 01/20/2025 4:17 AM EDT OPTIMAL INR RANGES FOR PATIENT ON ORAL ANTICOAGULANT THERAPY Prevention of venous thromboembolism INR 2.0 to 3.0 In patients with heart disease: Atrial fibrillation INR 2.0 to 3.0 Valvular heart disease INR 2.0 to 3.0 Tissue heart valves INR 2.0 to 3.0 Mechanical prosthetic valves INR 2.5 to 3.5 Prevention of recurrent [place] INR 2.5 to 3.5 Sachin Garza MD LAB BLOOD ORDERABLES Final R esult Performing Organization Address [facility] Co de Phone Number [facility] [address] [place] [address] * (ABNORMAL) Basic metabolic panel (01/20/2025 3:40 AM EDT) Glucose, Plasma 87 74 - 99 mg/dL 01/20/2025 4:51 AM EDT [facility] BUN, Plasma 30(H) 7 - 21 mg/dL 01/20/2025 4:51 AM EDT [facility] Creatinine, Plasma 1.59(H) 0.70 - 1.20 mg/dL 01/20/2025 4:51 AM EDT [facility] BUN/Creatinine Ratio 19 01/20/2025 4:51 AM EDT [facility] Sodium, Plasma 142 136 - 145 mmol/L 01/20/2025 4:51 AM EDT [facility] Potassium, Plasma 4.7 3.6 - 4.9 mmol/L 01/20/2025 4:51 AM EDT [facility] Chloride, Plasma 104 97 - 107 mmol/L 01/20/2025 4:51 AM EDT [facility] CO2, Plasma 26 22 - 29 mmol/L 01/20/2025 4:51 AM EDT [facility] Anion Gap 12 6 - 16 mmol/L 01/20/2025 4:51 AM EDT [facility] Total Calcium, Plasma 8.9 8.9 - 10.2 mg/dL 01/20/2025 4:51 AM EDT [facility] eGFRcr 57.7 mL/min/1.7 3m*2 01/20/2025 4:51 AM EDT [facility] Comment:Reported eGFRcr in m L/min/1.73m2 is based the CKD-EPI 2020 equation that does not use a race coefficient. Blood Venous blood specimen / Unknown Venipuncture / Unknown 01/20/2025 3:40 AM EDT 01/20/2025 3:57 AM EDT us Sachin Garza MD LAB BLOOD ORDERABLES Final R esult [facility] [address] [place] [address] * (ABNORMAL) CBC W/O Differential (01/20/2025 3:40 AM EDT) WBC Count 8.11 3.70 - 10.30 10*3/uL LAB HEMATOLOGY METHOD 01/20/2025 4:04 AM EDT [facility] RBC Count 3.64(L) 4.60 - 6.10 10*6/uL LAB HEMATOLOGY METHOD 01/20/2025 4:04 AM EDT [facility] HGB 10.7(L) 13.7 - 17.5 g/dL LAB HEMATOLOGY METHOD 01/20/2025 4:04 AM EDT [facility] HCT 34.5(L) 40.0 - 51.0 % LAB HEMATOLOGY METHOD 01/20/2025 4:04 AM EDT [facility] Platelet Count 399(H) 155 - 369 10*3/uL LAB HEMATOLOGY METHOD 01/20/2025 4:04 AM EDT [facility] MCV 95 79 - 98 fL LAB HEMATOLOGY METHOD 01/20/2025 4:04 AM EDT [facility] MCH 29.4 26.0 - 32.0 pg LAB HEMATOLOGY METHOD 01/20/2025 4:04 AM EDT [facility] MCHC 31.0 30.7 - 35.5 g/dL LAB HEMATOLOGY METHOD 01/20/2025 4:04 AM EDT [facility] RDW 13.1 11.5 - 14.5 % LAB HEMATOLOGY METHOD 01/20/2025 4:04 AM EDT [facility] MPV 9.5 8.8 - 12.5 fL LAB HEMATOLOGY METHOD 01/20/2025 4:04 AM EDT [facility] nRBC 0.0 <=0.0 per 100 WBCs LAB HEMATOLOGY METHOD 01/20/2025 4:04 AM EDT [facility] Blood Venous blood specimen / Unknown Venipuncture / Unknown 01/20/2025 3:40 AM EDT 01/20/2025 3:56 AM EDT Sachin Garza MD LAB BLOOD ORDERABLES Final R esult [facility] [address] [place] [address] * Vancomycin, random (01/19/2025 11:48 AM EDT) Vancomycin, Random, Plasma 22.9 ug/mL 01/19/2025 1:05 PM EDT [facility] Blood Venous blood specimen / Unknown Venipuncture / Unknown 01/19/2025 11:48 AM EDT 01/19/2025 11:50 AM EDT us Sachin Garza MD LAB BLOOD ORDERABLES Final R esult [facility] [address] [place] [address] * (ABNORMAL) Basic Metabolic Panel, Plasma (01/18/2025 11:54 PM EDT) Glucose, Plasma 134(H) 74 - 99 mg/dL 01/19/2025 12:45 AM EDT [facility] BUN, Plasma 24(H) 7 - 21 mg/dL 01/19/2025 12:45 AM EDT [facility] Creatinine, Plasma 1.34(H) 0.70 - 1.20 mg/dL 01/19/2025 12:45 AM EDT [facility] BUN/Creatinine Ratio 18 01/19/2025 12:45 AM EDT [facility] Sodium, Plasma 137 136 - 145 mmol/L 01/19/2025 12:45 AM EDT [facility] Potassium, Plasma 4.7 3.6 - 4.9 mmol/L 01/19/2025 12:45 AM EDT [facility] Chloride, Plasma 100 97 - 107 mmol/L 01/19/2025 12:45 AM EDT [facility] CO2, Plasma 24 22 - 29 mmol/L 01/19/2025 12:45 AM EDT [facility] Anion Gap 13 6 - 16 mmol/L 01/19/2025 12:45 AM EDT [facility] Total Calcium, Plasma 9.3 8.9 - 10.2 mg/dL 01/19/2025 12:45 AM EDT [facility] eGFRcr 70.8 mL/min/1.7 3m*2 01/19/2025 12:45 AM EDT [facility] Comment:Reported eGFRcr in m L/min/1.73m2 is based the CKD-EPI 2020 equation that does not use a race coefficient. Blood Venous blood specimen / Unknown Venipuncture / Unknown 01/18/2025 11:54 PM EDT 01/19/2025 12:16 AM EDT us Sachin Garza MD LAB BLOOD ORDERABLES Final R esult [facility] [address] [place] [address] * (ABNORMAL) CBC W/O Differential (01/18/2025 11:54 PM EDT) WBC Count 11.85(H) 3.70 - 10.30 10*3/uL LAB HEMATOLOGY METHOD 01/19/2025 12:20 AM EDT [facility] [facility] RBC Count 3.76(L) 4.60 - 6.10 10*6/uL LAB HEMATOLOGY METHOD 01/19/2025 12:20 AM EDT [facility] HGB 11.3(L) 13.7 - 17.5 g/dL LAB HEMATOLOGY METHOD 01/19/2025 12:20 AM EDT [facility] HCT 34.2(L) 40.0 - 51.0 % LAB HEMATOLOGY METHOD 01/19/2025 12:20 AM EDT [facility] Platelet Count 394(H) 155 - 369 10*3/uL LAB HEMATOLOGY METHOD 01/19/2025 12:20 AM EDT [facility] MCV 91 79 - 98 fL LAB HEMATOLOGY METHOD 01/19/2025 12:20 AM EDT [facility] MCH 30.1 26.0 - 32.0 pg LAB HEMATOLOGY METHOD 01/19/2025 12:20 AM EDT [facility] MCHC 33.0 30.7 - 35.5 g/dL LAB HEMATOLOGY METHOD 01/19/2025 12:20 AM EDT [facility] RDW 12.9 11.5 - 14.5 % LAB HEMATOLOGY METHOD 01/19/2025 12:20 AM EDT [facility] MPV 9.5 8.8 - 12.5 fL LAB HEMATOLOGY METHOD 01/19/2025 12:20 AM EDT [facility] nRBC 0.0 <=0.0 per 100 WBCs LAB HEMATOLOGY METHOD 01/19/2025 12:20 AM EDT [facility] Blood Venous blood specimen / Unknown Venipuncture / Unknown 01/18/2025 11:54 PM EDT 01/19/2025 12:13 AM EDT Sachin Garza MD LAB BLOOD ORDERABLES Final R esult Performing Organization Address [facility]/ZIP Co de Phone Number [facility] [address] [place] [address] * AFB Culture, Non Respiratory Source and Acid Fast Stain (01/18/2025 3:28 PM EDT) AFB Culture No Mycobacterial Growth at 6 Weeks 03/02/2025 8:42 AM EDT [facility] Acid Fast Stain No acid fast bacilli seen 03/02/2025 8:42 AM EDT [facility] Joint Fluid Topography unknown / Unknown Non-blood Collection / Unknown 01/18/2025 3:28 PM EDT 01/18/2025 3:28 PM EDT us Sachin Garza MD LAB MICROBIOLOGY - GENERAL O RDERABLES Final Result Performing Organization Address [facility] [place] [address] * Fungal Culture, Sterile Body Fluid (NOT CSF) and SYEDA (01/18/2025 3:28 PM EDT) Culture No Fungal Growth at 3 Weeks 02/10/2025 8:37 AM EDT [facility] SYEDA No fungal elements seen 02/10/2025 8:37 AM EDT [facility] Joint Fluid Topography unknown / Unknown Non-blood Collection / Unknown 01/18/2025 3:28 PM EDT 01/18/2025 3:28 PM EDT Sachin Garza MD LAB MICROBIOLOGY - GENERAL O RDERABLES Final Result Performing Organization Address [facility]/ZIP Co de Phone Number [facility] [address] [place] [address] * Anaerobic Culture (01/18/2025 3:28 PM EDT) Culture No anaerobes isolated 01/23/2025 7:50 AM EDT [facility] Joint Fluid Topography unknown / Unknown Non-blood Collection / Unknown 01/18/2025 3:28 PM EDT 01/18/2025 3:28 PM EDT us Sachin Garza MD LAB MICROBIOLOGY - GENERAL O RDERABLES Final Result Performing Organization Address [facility] Co de Phone Number [facility] [address] [place] [address] * (ABNORMAL) Body Fluid Culture and Gram Stain (01/18/2025 3:28 PM EDT) Culture Heavy Growth 01/20/2025 8:34 AM EDT [facility] Culture Methicillin-Resista nt Staphylococcus aureus(AA) 01/20/2025 8:34 AM EDT [facility] Comment: For susceptibility results refer to: - [id number] The organism value for this result has been updated. These results have been appended to the previously preliminary verified report. Edited result: Previously reported as Staphylococcus aureus on 01/19/2025 at 0933 EDT. Staphylococcus aureus has been updated to reportable. Gram Stain Result Numerous Polymorphonuclear leukocytes 01/20/2025 8:34 AM EDT [facility] Gram Stain Result No organisms seen 01/20/2025 8:34 AM EDT [facility] Joint Fluid Topography unknown / Unknown Non-blood Collection / Unknown 01/18/2025 3:28 PM EDT 01/18/2025 3:28 PM EDT us Sachin Garza MD LAB MICROBIOLOGY - GENERAL O RDERAYASMINE Final Result Performing Organization Address [facility]/ZIP Co de Phone Number [facility] [address] [place] [address] * Body fluid, cytospin, pathologist interpretation (01/18/2025 3:01 PM EDT) Specimen Type Joint Fluid LAB HEMATOLOGY METHOD 01/20/2025 4:29 PM EDT [facility] Specimen Source, Body Fluid Knee, Left LAB HEMATOLOGY METHOD 01/20/2025 4:29 PM EDT [facility] Clinical Diagnosis, Body Fluid Left lower extremity cellulitis LAB HEMATOLOGY METHOD 01/20/2025 4:29 PM EDT [facility] Interpretation , Body Fluid Bloody specimen Acute and chronic inflammatory cells Correlation with microbiology studies recommended A resident was involved in the service. I attest I examined the relevant preparations for the specimens and confirmed the diagnosis or interpretation. 01/20/2025 4:29 PM EDT [facility] Pathologist Signature, Body Fluid 01/20/2025 4:29 PM EDT [facility] Comment:Reviewed by: Stephanie conti MD LAB CP ASR DISCLAIMER Yes 01/20/2025 4:29 PM EDT [facility] Joint Fluid Structure of left knee region / Unknown 01/18/2025 3:01 PM EDT 01/18/2025 3:28 PM EDT us Sachin Garza MD LAB BODY FLUIDS AND STOOLS O RDERABLES Final Result Performing Organization Address [facility]/ZIP Co de Phone Number [facility] [address] [place] [address] * Joint Fluid Crystals (01/18/2025 3:01 PM EDT) Crystals, Joint Fluid No Crystals Seen No Crystals Present 01/18/2025 5:28 PM EDT [facility] Joint Fluid Structure of left knee region / Unknown 01/18/2025 3:01 PM EDT 01/18/2025 3:28 PM EDT us Sachin Garza MD LAB BODY FLUIDS AND STOOLS O RDERABLES Final Result [facility] [address] [place] [address] * (ABNORMAL) Body Fluid Cell Count w/ Diff (01/18/2025 3:01 PM EDT) Color, Body fluid Red LAB HEMATOLOGY METHOD 01/18/2025 11:05 PM EDT [facility] Appearance, Body fluid Cloudy(A) LAB HEMATOLOGY METHOD 01/18/2025 11:05 PM EDT [facility] Volume, Body fluid 3.5 cc LAB HEMATOLOGY METHOD 01/18/2025 11:05 PM EDT [facility] Fluid Container Specimen received in EDTA tube LAB HEMATOLOGY METHOD 01/18/2025 11:05 PM EDT [facility] Red Blood Cell Count, Body fluid 299,000 uL LAB HEMATOLOGY METHOD 01/18/2025 11:05 PM EDT [facility] Total Nucleated Cell Count, Body fluid 873 uL LAB HEMATOLOGY METHOD 01/18/2025 11:05 PM EDT [facility] Neutrophils %, Body fluid 17 % LAB HEMATOLOGY METHOD 01/18/2025 11:05 PM EDT [facility] Lymphocytes %, Body fluid 55 % LAB HEMATOLOGY METHOD 01/18/2025 11:05 PM EDT [facility] Monocytes/Macro phages %, Body fluid 27 % LAB HEMATOLOGY METHOD 01/18/2025 11:05 PM EDT [facility] Eosinophils %, Body fluid 1 % LAB HEMATOLOGY METHOD 01/18/2025 11:05 PM EDT [facility] Lining/Mesothel ial Cells %, Body fluid 0 % LAB HEMATOLOGY METHOD 01/18/2025 11:05 PM EDT [facility] Neutrophils Absolute (PMN), Body fluid 148 uL LAB HEMATOLOGY METHOD 01/18/2025 11:05 PM EDT [facility] Lymphocytes Absolute, Body fluid 480 uL LAB HEMATOLOGY METHOD 01/18/2025 11:05 PM EDT [facility] Monocytes/Macro phages Absolute, Body fluid 236 uL LAB HEMATOLOGY METHOD 01/18/2025 11:05 PM EDT [facility] Eosinophils Absolute, Body fluid 9 uL LAB HEMATOLOGY METHOD 01/18/2025 11:05 PM EDT [facility] Basophils Absolute, Body fluid 0 uL LAB HEMATOLOGY METHOD 01/18/2025 11:05 PM EDT [facility] Lining/Mesothel ial Cells Absolute, Body fluid 0 uL LAB HEMATOLOGY METHOD 01/18/2025 11:05 PM EDT [facility] Comment, Body fluid None LAB HEMATOLOGY METHOD 01/18/2025 11:05 PM EDT [facility] Comment:This is an appended report. These results have been appended to a previously preliminary verified report. Basophils %, Body fluid 0 % LAB HEMATOLOGY METHOD 01/18/2025 11:05 PM EDT [facility] Joint Fluid Structure of left knee region / Unknown 01/18/2025 3:01 PM EDT 01/18/2025 3:28 PM EDT us Sachin Garza MD LAB BODY FLUIDS AND STOOLS ORDERABLES NO SPECIMEN TYPE/SOURCE Final Result Performing Organization Address [facility]/ZIP Co de Phone Number [facility] [address] [place] [address] * Body Fluid Culture and Gram Stain (01/18/2025 12:17 PM EDT) Culture No growth at day 4 2024 11:06 AM EDT [facility] Gram Stain Result No polymorphonuclear leukocytes seen 01/21/2025 11:06 AM EDT [facility] Gram Stain Result No organisms seen 01/21/2025 11:06 AM EDT [facility] Joint Fluid Synovial fluid specimen / Unknown Non-blood Collection / Unknown 01/18/2025 12:17 PM EDT 01/18/2025 3:24 PM EDT Comment:Pre-op diagnosis: Cellulitis of left lower extremity [L03.116] Dwaine Das DO LAB MICROBIOLOGY - GENERAL ORDERABLES Final Result Performing Organization Address [facility]/ZIP Co de Phone Number [facility] [address] [place] [address] * Joint Infection Panel by PCR (01/18/2025 12:17 PM EDT) Anaerococcus prevotii/vaginalis PCR Result Not Detected Not Detected 01/18/2025 5:28 PM EDT [facility] Clostridium perfringens PCR Result Not Detected Not Detected 01/18/2025 5:28 PM EDT [facility] Cutibacterium avidum/granulosum PCR Result Not Detected Not Detected 01/18/2025 5:28 PM EDT [facility] Enterococcus faecalis PCR Result Not Detected Not Detected 01/18/2025 5:28 PM EDT [facility] Enterococcus faecium PCR Result Not Detected Not Detected 01/18/2025 5:28 PM EDT [facility] Finegoldia magna PCR Result Not Detected Not Detected 01/18/2025 5:28 PM EDT [facility] Parvimonas micra PCR Result Not Detected Not Detected 01/18/2025 5:28 PM EDT [facility] Peptoniphilus PCR Result Not Detected Not Detected 01/18/2025 5:28 PM EDT [facility] Peptostreptococcus anaerobius PCR Result Not Detected Not Detected 01/18/2025 5:28 PM EDT [facility] Staphylococcus aureus PCR Result Not Detected Not Detected 01/18/2025 5:28 PM EDT [facility] Staphylococcus lugdunensis PCR Result Not Detected Not Detected 01/18/2025 5:28 PM EDT [facility] Streptococcus spp PCR Result Not Detected Not Detected 01/18/2025 5:28 PM EDT [facility] Streptococcus agalactiae PCR Result Not Detected Not Detected 01/18/2025 5:28 PM EDT [facility] Streptococcus pneumoniae PCR Result Not Detected Not Detected 01/18/2025 5:28 PM EDT [facility] Streptococcus pyogenes PCR Result Not Detected Not Detected 01/18/2025 5:28 PM EDT [facility] Bacteroides fragilis PCR Result Not Detected Not Detected 01/18/2025 5:28 PM EDT [facility] Citrobacter PCR Result Not Detected Not Detected 01/18/2025 5:28 PM EDT [facility] Enterobacter cloacae complex PCR Result Not Detected Not Detected 01/18/2025 5:28 PM EDT [facility] Escherichia coli PCR Result Not Detected Not Detected 01/18/2025 5:28 PM EDT [facility] Haemophilus influenzae PCR Result Not Detected Not Detected 01/18/2025 5:28 PM EDT [facility] Kingella kingae PCR Result Not Detected Not Detected 01/18/2025 5:28 PM EDT [facility] Klebsiella aerogenes PCR Result Not Detected Not Detected 01/18/2025 5:28 PM EDT [facility] Klebsiella pneumoniae group PCR Result Not Detected Not Detected 01/18/2025 5:28 PM EDT [facility] Morganella morganii PCR Result Not Detected Not Detected 01/18/2025 5:28 PM EDT [facility] Neisseria gonorrhoeae PCR Result Not Detected Not Detected 01/18/2025 5:28 PM EDT [facility] Proteus spp PCR Result Not Detected Not Detected 01/18/2025 5:28 PM EDT [facility] Pseudomonas aeruginosa PCR Result Not Detected Not Detected 01/18/2025 5:28 PM EDT [facility] Salmonella spp PCR Result Not Detected Not Detected 01/18/2025 5:28 PM EDT [facility] Serratia marcescens PCR Result Not Detected Not Detected 01/18/2025 5:28 PM EDT [facility] Nelda PCR Result Not Detected Not Detected 01/18/2025 5:28 PM EDT [facility] Nelda albicans PCR Result Not Detected Not Detected 01/18/2025 5:28 PM EDT [facility] CTXM PCR Result Not Detected Not Detected 01/18/2025 5:28 PM EDT [facility] IMP PCR Result Not Detected Not Detected 01/18/2025 5:28 PM EDT [facility] KPC PCR Result Not Detected Not Detected 01/18/2025 5:28 PM EDT [facility] mecA/C and MREJ (MRSA) PCR Result Not Detected Not Detected 01/18/2025 5:28 PM EDT [facility] NDM PCR Result Not Detected Not Detected 01/18/2025 5:28 PM EDT [facility] OXA-48-like PCR Result Not Detected Not Detected 01/18/2025 5:28 PM EDT [facility] Jarret/B PCR Result Not Detected Not Detected 01/18/2025 5:28 PM EDT [facility] VIM PCR Result Not Detected Not Detected 01/18/2025 5:28 PM EDT [facility] Joint Fluid Synovial fluid specimen / Unknown Non-blood Collection / Unknown 01/18/2025 12:17 PM EDT 01/18/2025 3:24 PM EDT [facility] - 01/18/2025 5:28 PM EDT This [...] obtain isolates for antimicrobial susceptibility testing and [employer] Joint Infection Panel results should be used in conjunction with culture results for the determination of susceptibility or resistance. us Sachin Garza MD LAB MICROBIOLOGY - GENERAL O RDERABLES Final Result Performing Organization Address [facility]/ZIP Co de Phone Number [address] [address] * Fungal Culture, Tissue and SYEDA (01/18/2025 10:00 AM EDT) Culture [facility] Mycological 4 Weeks No Fungal Growth at 4 Weeks 02/16/2025 8:50 AM EDT [facility] SYEDA No fungal elements seen 02/16/2025 8:50 AM EDT [facility] Tissue Topography unknown / Unknown 01/18/2025 10:00 AM EDT 01/18/2025 3:26 PM EDT Comment:Pre-op diagnosis: Cellulitis of left lower extremity [L03.116] Dwaine Das DO LAB MICROBIOLOGY - GENERAL ORDERABLES Final Result Performing Organization Address [facility]/ZIP Co de Phone Number [facility] [address] [place] [address] * AFB Culture, Non Respiratory Source and Acid Fast Stain (01/18/2025 10:00 AM EDT) AFB Culture No Mycobacterial Growth at 6 Weeks 03/02/2025 8:38 AM EDT [facility] Acid Fast Stain No acid fast bacilli seen 03/02/2025 8:38 AM EDT [facility] Tissue Topography unknown / Unknown 01/18/2025 10:00 AM EDT 01/18/2025 3:26 PM EDT Comment:Pre-op diagnosis: Cellulitis of left lower extremity [L03.116] Dwaine Das DO LAB MICROBIOLOGY - GENERAL ORDERABLES Final Result [facility] [address] [place] [address] * (ABNORMAL) Tissue Culture and Gram Stain (01/18/2025 10:00 AM EDT) Culture Heavy Growth 01/20/2025 8:34 AM EDT [facility] Culture Methicillin-Resista nt Staphylococcus aureus(AA) JOVANI 01/20/2025 8:34 AM EDT [facility] Comment: The organism value for this result has been updated. These results have been appended to the previously preliminary verified report. Edited result: Previously reported as Staphylococcus aureus on 01/19/2025 at 0914 EDT. Staphylococcus aureus has been updated to reportable. Gram Stain Result Numerous Polymorphonuclear leukocytes(A) 01/20/2025 8:34 AM EDT [facility] Gram Stain Result Rare Gram positive cocci in clusters(A) 01/20/2025 8:34 AM EDT [facility] Tissue Topography unknown / Unknown [...] aureus Vancomycin JOVANI 1 ug/ml: Susceptible [facility] - GENERAL ORDERABLES Final Result Performing Organization Address [facility]/ZIP Co de Phone Number [facility] [address] [place] [address] * Anaerobic Culture (01/18/2025 10:00 AM EDT) Culture No anaerobes isolated 01/23/2025 7:50 AM EDT [facility] Tissue Topography unknown / Unknown 01/18/2025 10:00 AM EDT 01/18/2025 3:26 PM EDT Comment:Pre-op diagnosis: Cellulitis of left lower extremity [L03.116] [facility] MI[facility]OLOGY - GENERAL ORDERABLES Final Result Performing Organization Address [facility]/ZIP Co de Phone Number [facility] [address] [place] [address] * Body fluid, cytospin, pathologist interpretation (01/18/2025 9:57 AM EDT) Specimen Type Cyst Fluid LAB HEMATOLOGY METHOD 01/20/2025 4:28 PM EDT [facility] Specimen Source, Body Fluid Other (specify site) LAB HEMATOLOGY METHOD 01/20/2025 4:28 PM EDT [facility] Clinical Diagnosis, Body Fluid Left lower extremity cyst fluid LAB HEMATOLOGY METHOD 01/20/2025 4:28 PM EDT [facility] Interpretation , Body Fluid No evidence of malignancy Bloody specimen Acute inflammatory cells Correlation with microbiology studies recommended A resident was involved in the service. I attest I examined the relevant preparations for the specimens and confirmed the diagnosis or interpretation. 01/20/2025 4:28 PM EDT [facility] Pathologist Signature, Body Fluid 01/20/2025 4:28 PM EDT [facility] Comment:Reviewed by: Stephanie conti MD LAB CP ASR DISCLAIMER Yes 01/20/2025 4:28 PM EDT [facility] Cyst Fluid Topography unknown / Unknown 01/18/2025 9:57 AM EDT 01/18/2025 3:19 PM EDT Dwaine Das DO LAB BODY FLUIDS AND STOOLS ORDERABLES Final Result [facility] [address] [place] [address] * (ABNORMAL) Body Fluid Cell Count w/ Diff (01/18/2025 9:57 AM EDT) Color, Body fluid Red LAB HEMATOLOGY METHOD 01/18/2025 7:13 PM EDT [facility] Appearance, Body fluid Cloudy(A) LAB HEMATOLOGY METHOD 01/18/2025 7:13 PM EDT [facility] Volume, Body fluid 10.0 cc LAB HEMATOLOGY METHOD 01/18/2025 7:13 PM EDT [facility] Fluid Container Specimen received in miscellaneous container LAB HEMATOLOGY METHOD 01/18/2025 7:13 PM EDT [facility] Red Blood Cell Count, Body fluid 240,000 uL LAB HEMATOLOGY METHOD 01/18/2025 7:13 PM EDT [facility] Comment:Clot present, may af fect results. Test performed by manual method. Total Nucleated Cell Count, Body fluid 83,500 uL LAB HEMATOLOGY METHOD 01/18/2025 7:13 PM EDT [facility] Comment:Clot present, may af fect results. Test performed by manual method. Neutrophils %, Body fluid 98 % LAB HEMATOLOGY METHOD 01/18/2025 7:13 PM EDT [facility] Lymphocytes %, Body fluid 2 % LAB HEMATOLOGY METHOD 01/18/2025 7:13 PM EDT [facility] Monocytes/Macr ophages %, Body fluid 0 % LAB HEMATOLOGY METHOD 01/18/2025 7:13 PM EDT [facility] Eosinophils %, Body fluid 0 % LAB HEMATOLOGY METHOD 01/18/2025 7:13 PM EDT [facility] Lining/Mesothe lial Cells %, Body fluid 0 % LAB HEMATOLOGY METHOD 01/18/2025 7:13 PM EDT [facility] Neutrophils Absolute (PMN), Body fluid 81,830 uL LAB HEMATOLOGY METHOD 01/18/2025 7:13 PM EDT [facility] Lymphocytes Absolute, Body fluid 1,670 uL LAB HEMATOLOGY METHOD 01/18/2025 7:13 PM EDT [facility] Monocytes/Macr ophages Absolute, Body fluid 0 uL LAB HEMATOLOGY METHOD 01/18/2025 7:13 PM EDT [facility] Eosinophils Absolute, Body fluid 0 uL LAB HEMATOLOGY METHOD 01/18/2025 7:13 PM EDT [facility] Basophils Absolute, Body fluid 0 uL LAB HEMATOLOGY METHOD 01/18/2025 7:13 PM EDT [facility] Lining/Mesothe lial Cells Absolute, Body fluid 0 uL LAB HEMATOLOGY METHOD 01/18/2025 7:13 PM EDT [facility] Comment, Body fluid Bacteria seen. LAB HEMATOLOGY METHOD 01/18/2025 7:13 PM EDT [facility] Basophils %, Body fluid 0 % LAB HEMATOLOGY METHOD 01/18/2025 7:13 PM EDT [facility] Cyst Fluid Topography unknown / Unknown 01/18/2025 9:57 AM EDT 01/18/2025 3:19 PM EDT Comment:Pre-op diagnosis: Cellulitis of left lower extremity [L03.116] Dwaine Das DO LAB BODY FLUIDS AND STOOLS ORDERABLES NO SPECIMEN TYPE/SOURCE Final Result [facility] [address] [place] [address] * Fungal Culture, Sterile Body Fluid (NOT CSF) and SYEDA (01/18/2025 9:57 AM EDT) Culture No Fungal Growth at 3 Weeks 02/10/2025 8:37 AM EDT [facility] SYEDA No fungal elements seen 02/10/2025 8:37 AM EDT [facility] Cyst Fluid Topography unknown / Unknown 01/18/2025 9:57 AM EDT 01/18/2025 3:26 PM EDT Comment:Pre-op diagnosis: Cellulitis of left lower extremity [L03.116] [facility] - GENERAL ORDERABLES Final Result Performing Organization Address [facility]/ZIP Co de Phone Number [facility] [address] [place] [address] * AFB Culture, Non Respiratory Source and Acid Fast Stain (01/18/2025 9:57 AM EDT) AFB Culture No Mycobacterial Growth at 6 Weeks 03/02/2025 8:43 AM EDT [facility] Acid Fast Stain No acid fast bacilli seen 03/02/2025 8:43 AM EDT [facility] Cyst Fluid Topography unknown / Unknown 01/18/2025 9:57 AM EDT 01/18/2025 3:26 PM EDT Comment:Pre-op diagnosis: Cellulitis of left lower extremity [L03.116] [facility] MICROBIOLOGY - GENERAL ORDERABLES Final Result Performing Organization Address [facility] Co de Phone Number [facility] [address] [place] [address] * (ABNORMAL) Body Fluid Culture and Gram Stain (01/18/2025 9:57 AM EDT) Culture Heavy Growth 01/20/2025 8:34 AM EDT [facility] Culture Methicillin-Resista nt Staphylococcus aureus(AA) 01/20/2025 8:34 AM EDT [facility] Comment: For susceptibility results refer to: - [id number] The organism value for this result has been updated. These results have been appended to the previously preliminary verified report. Edited result: Previously reported as Staphylococcus aureus on 01/19/2025 at 0916 EDT. Staphylococcus aureus has been updated to reportable. Gram Stain Result Numerous Polymorphonuclear leukocytes(A) 01/20/2025 8:34 AM EDT [facility] Gram Stain Result Moderate Gram positive cocci in clusters(A) 01/20/2025 8:34 AM EDT [facility] Cyst Fluid Topography unknown / Unknown 01/18/2025 9:57 AM EDT 01/18/2025 3:26 PM EDT Comment:Pre-op diagnosis: Cellulitis of left lower extremity [L03.116] [facility] LAB MICROBIOLOGY - GENERAL ORDERABLES Final Result Performing Organization Address [facility]/ZIP Co de Phone Number [facility] [address] [place] [address] * Anaerobic Culture (01/18/2025 9:57 AM EDT) Culture No anaerobes isolated 01/23/2025 7:50 AM EDT [facility] Cyst Fluid Topography unknown / Unknown 01/18/2025 9:57 AM EDT 01/18/2025 3:26 PM EDT Comment:Pre-op diagnosis: Cellulitis of left lower extremity [L03.116] [facility] LAB MICROBIOLOGY - GENERAL ORDERABLES Final Result Performing Organization Address [facility]/ZIP Co de Phone Number [facility] [address] [place] [address] * Methicillin Resistant Staphylococcus aureus (MRSA) by PCR (01/18/2025 7:43 AM EDT) Methicillin Resistant Staphylococcus aureus (MRSA) by PCR Not Detected Not Detected 01/18/2025 9:36 AM EDT [facility] Swab Both anterior nares / Unknown Non-blood Collection / Unknown 01/18/2025 7:43 AM EDT 01/18/2025 8:19 AM EDT Narrative [facility] - 01/18/2025 9:36 AM EDT [...] MICROBIOLOGY - GENERAL O RDERABLES Final Result [facility] [address] [place] [address] * (ABNORMAL) Basic metabolic panel (01/18/2025 12:18 AM EDT) Glucose, Plasma 105(H) 74 - 99 mg/dL 01/18/2025 1:30 AM EDT [facility] BUN, Plasma 14 7 - 21 mg/dL 01/18/2025 1:30 AM EDT [facility] Creatinine, Plasma 0.80 0.70 - 1.20 mg/dL 01/18/2025 1:30 AM EDT [facility] BUN/Creatinine Ratio 18 01/18/2025 1:30 AM EDT [facility] Sodium, Plasma 137 136 - 145 mmol/L 01/18/2025 1:30 AM EDT [facility] Potassium, Plasma 4.3 3.6 - 4.9 mmol/L 01/18/2025 1:30 AM EDT [facility] Chloride, Plasma 100 97 - 107 mmol/L 01/18/2025 1:30 AM EDT [facility] CO2, Plasma 26 22 - 29 mmol/L 01/18/2025 1:30 AM EDT [facility] Anion Gap 11 6 - 16 mmol/L 01/18/2025 1:30 AM EDT [facility] Total Calcium, Plasma 9.0 8.9 - 10.2 mg/dL 01/18/2025 1:30 AM EDT [facility] eGFRcr 118.4 mL/min/1.7 3m*2 01/18/2025 1:30 AM EDT [facility] Comment:Reported eGFRcr in m L/min/1.73m2 is based the CKD-EPI 2020 equation that does not use a race coefficient. Blood Venous blood specimen / Unknown Venipuncture / Unknown 01/18/2025 12:18 AM EDT 01/18/2025 12:27 AM EDT us Sachin Garza MD LAB BLOOD ORDERABLES Final R esult [facility] [address] [place] [address] * (ABNORMAL) CBC W/O Differential (01/18/2025 12:18 AM EDT) WBC Count 8.77 3.70 - 10.30 10*3/uL LAB HEMATOLOGY METHOD 01/18/2025 12:36 AM EDT [facility] LAB RBC Count 3.94(L) 4.60 - 6.10 10*6/uL LAB HEMATOLOGY METHOD 01/18/2025 12:36 AM EDT [facility] HGB 11.7(L) 13.7 - 17.5 g/dL LAB HEMATOLOGY METHOD 01/18/2025 12:36 AM EDT [facility] HCT 37.1(L) 40.0 - 51.0 % LAB HEMATOLOGY METHOD 01/18/2025 12:36 AM EDT [facility] Platelet Count 347 155 - 369 10*3/uL LAB HEMATOLOGY METHOD 01/18/2025 12:36 AM EDT [facility] MCV 94 79 - 98 fL LAB HEMATOLOGY METHOD 01/18/2025 12:36 AM EDT [facility] MCH 29.7 26.0 - 32.0 pg LAB HEMATOLOGY METHOD 01/18/2025 12:36 AM EDT [facility] MCHC 31.5 30.7 - 35.5 g/dL LAB HEMATOLOGY METHOD 01/18/2025 12:36 AM EDT [facility] RDW 13.1 11.5 - 14.5 % LAB HEMATOLOGY METHOD 01/18/2025 12:36 AM EDT [facility] MPV 9.5 8.8 - 12.5 fL LAB HEMATOLOGY METHOD 01/18/2025 12:36 AM EDT [facility] nRBC 0.0 <=0.0 per 100 WBCs LAB HEMATOLOGY METHOD 01/18/2025 12:36 AM EDT [facility] Blood Venous blood specimen / Unknown Venipuncture / Unknown 01/18/2025 12:18 AM EDT 01/18/2025 12:29 AM EDT Sachin Garza MD LAB BLOOD ORDERABLES Final R esult Performing Organization Address [facility] Co de Phone Number [facility] [address] [place] [address] * Vancomycin, Peak, Plasma Please draw ~2 hours after 1000 dose of vancomycin on Monday finishes infusing. Consider obtaining level via peripheral stick. If peripheral stick is not feasible, please ensure that line is flushed well prior to drawing l... (01/17/2025 2:03 PM EDT) Vancomycin, Peak, Plasma 22.0 20.0 - 40.0 ug/mL 01/17/2025 3:01 PM EDT [facility] Blood Venous blood specimen / Unknown Venipuncture / Unknown 01/17/2025 2:03 PM EDT 01/17/2025 2:32 PM EDT Narrative [facility] - 01/17/2025 3:01 PM EDT Therapeutic Peak level: 20-40ug/mL Supra-therapeutic Peak level: >40 ug/mL Sachin Garza MD LAB BLOOD ORDERABLES Final R esult Performing Organization Address [facility] de Phone Number [facility] [address] [place] [address] * Vancomycin, Trough, Plasma Please draw ~30 minutes prior to dose due at 1000 on Monday. Please do NOT hold dose awaiting level to return. Consider obtaining level via peripheral stick. If peripheral stick is not feasible, please ensure that line ... (01/17/2025 9:53 AM EDT) Vancomycin, Trough, Plasma 12.5 10.0 - 20.0 ug/mL 01/17/2025 10:24 AM EDT [facility] Blood Venous blood specimen / Unknown Venipuncture / Unknown 01/17/2025 9:53 AM EDT 01/17/2025 9:57 AM EDT Narrative [facility] - 01/17/2025 10:24 AM EDT Therapeutic Trough level: 10-20ug/mL Supra-therapeutic Trough level: >20 ug/mL us Sachin Garza MD LAB BLOOD ORDERABLES Final R esult [facility] [address] [place] [address] * (ABNORMAL) Basic metabolic panel (01/17/2025 4:05 AM EDT) Glucose, Plasma 117(H) 74 - 99 mg/dL 01/17/2025 5:16 AM EDT [facility] BUN, Plasma 13 7 - 21 mg/dL 01/17/2025 5:16 AM EDT [facility] Creatinine, Plasma 0.75 0.70 - 1.20 mg/dL 01/17/2025 5:16 AM EDT [facility] BUN/Creatinine Ratio 17 01/17/2025 5:16 AM EDT [facility] Sodium, Plasma 135(L) 136 - 145 mmol/L 01/17/2025 5:16 AM EDT [facility] Potassium, Plasma 4.5 3.6 - 4.9 mmol/L 01/17/2025 5:16 AM EDT [facility] Chloride, Plasma 100 97 - 107 mmol/L 01/17/2025 5:16 AM EDT [facility] CO2, Plasma 25 22 - 29 mmol/L 01/17/2025 5:16 AM EDT [facility] Anion Gap 10 6 - 16 mmol/L 01/17/2025 5:16 AM EDT [facility] Total Calcium, Plasma 9.1 8.9 - 10.2 mg/dL 01/17/2025 5:16 AM EDT [facility] eGFRcr 120.7 mL/min/1.7 3m*2 01/17/2025 5:16 AM EDT [facility] Comment:Reported eGFRcr in m L/min/1.73m2 is based the CKD-EPI 2020 equation that does not use a race coefficient. Blood Venous blood specimen / Unknown Venipuncture / Unknown 01/17/2025 4:05 AM EDT 01/17/2025 4:35 AM EDT us Sachin Garza MD LAB BLOOD ORDERABLES Final R esult [facility] [address] [place] [address] * US Extremity Limited MSK or Soft [...] 01/16/2025 12:29 PM us Sachin Garza MD IM US PROCEDURES Final Resu lt * (ABNORMAL) Basic Metabolic Panel, Plasma (01/16/2025 4:31 AM EDT) Glucose, Plasma 124(H) 74 - 99 mg/dL 01/16/2025 5:15 AM EDT [facility] BUN, Plasma 12 7 - 21 mg/dL 01/16/2025 5:15 AM EDT [facility] Creatinine, Plasma 0.66(L) 0.70 - 1.20 mg/dL 01/16/2025 5:15 AM EDT [facility] BUN/Creatinine Ratio 18 01/16/2025 5:15 AM EDT [facility] Sodium, Plasma 136 136 - 145 mmol/L 01/16/2025 5:15 AM EDT [facility] Potassium, Plasma 4.5 3.6 - 4.9 mmol/L 01/16/2025 5:15 AM EDT [facility] Chloride, Plasma 100 97 - 107 mmol/L 01/16/2025 5:15 AM EDT [facility] CO2, Plasma 26 22 - 29 mmol/L 01/16/2025 5:15 AM EDT [facility] Anion Gap 10 6 - 16 mmol/L 01/16/2025 5:15 AM EDT [facility] Total Calcium, Plasma 8.8(L) 8.9 - 10.2 mg/dL 01/16/2025 5:15 AM EDT [facility] eGFRcr 125.4 mL/min/1.7 3m*2 01/16/2025 5:15 AM EDT [facility] Comment:Reported eGFRcr in m L/min/1.73m2 is based the CKD-EPI 2020 equation that does not use a race coefficient. Blood Venous blood specimen / Unknown Venipuncture / Unknown 01/16/2025 4:31 AM EDT 01/16/2025 4:46 AM EDT us Jeffrey Matute MD LAB BLOOD ORDERABLES Final Re sult Performing Organization Address [facility] Co de Phone Number [facility] [address] [place] [address] * Prothrombin Time/INR (01/16/2025 4:31 AM EDT) Prothrombin Time 12.9 12.0 - 14.3 sec 01/16/2025 4:46 AM EDT [facility] INR 1.0 0.9 - 1.1 01/16/2025 4:46 AM EDT [facility] Blood Venous blood specimen / Unknown Venipuncture / Unknown 01/16/2025 4:31 AM EDT 01/16/2025 4:33 AM EDT Narrative [facility] - 01/16/2025 4:46 AM EDT OPTIMAL INR RANGES FOR PATIENT ON ORAL ANTICOAGULANT THERAPY Prevention of venous thromboembolism INR 2.0 to 3.0 In patients with heart disease: Atrial fibrillation INR 2.0 to 3.0 Valvular heart disease INR 2.0 to 3.0 Tissue heart valves INR 2.0 to 3.0 Mechanical prosthetic valves INR 2.5 to 3.5 Prevention of recurrent [place] INR 2.5 to 3.5 us Jeffrey Matute MD LAB BLOOD ORDERABLES Final Re sult Performing Organization Address [facility] Co de Phone Number [facility] [address] [place] [address] * (ABNORMAL) CBC W/O Differential (01/16/2025 4:31 AM EDT) WBC Count 17.78(H) 3.70 - 10.30 10*3/uL LAB HEMATOLOGY METHOD 01/16/2025 4:36 AM EDT [facility] RBC Count 4.14(L) 4.60 - 6.10 10*6/uL LAB HEMATOLOGY METHOD 01/16/2025 4:36 AM EDT [facility] HGB 12.4(L) 13.7 - 17.5 g/dL LAB HEMATOLOGY METHOD 01/16/2025 4:36 AM EDT [facility] HCT 37.6(L) 40.0 - 51.0 % LAB HEMATOLOGY METHOD 01/16/2025 4:36 AM EDT [facility] Platelet Count 359 155 - 369 10*3/uL LAB HEMATOLOGY METHOD 01/16/2025 4:36 AM EDT [facility] MCV 91 79 - 98 fL LAB HEMATOLOGY METHOD 01/16/2025 4:36 AM EDT [facility] MCH 30.0 26.0 - 32.0 pg LAB HEMATOLOGY METHOD 01/16/2025 4:36 AM EDT [facility] MCHC 33.0 30.7 - 35.5 g/dL LAB HEMATOLOGY METHOD 01/16/2025 4:36 AM EDT [facility] RDW 13.2 11.5 - 14.5 % LAB HEMATOLOGY METHOD 01/16/2025 4:36 AM EDT [facility] MPV 9.3 8.8 - 12.5 fL LAB HEMATOLOGY METHOD 01/16/2025 4:36 AM EDT [facility] nRBC 0.0 <=0.0 per 100 WBCs LAB HEMATOLOGY METHOD 01/16/2025 4:36 AM EDT [facility] Blood Venous blood specimen / Unknown Venipuncture / Unknown 01/16/2025 4:31 AM EDT 01/16/2025 4:33 AM EDT us Jeffrey Matute MD LAB BLOOD ORDERABLES Final Re sult [facility] [address] [place] [address] * CT Tibia Fibula Left w IV [...] at day 5 01/21/2025 2:02 AM EDT [facility] Blood Venous blood specimen / Unknown Venipuncture / Unknown 01/16/2025 12:24 AM EDT 01/16/2025 1:12 AM EDT Narrative [facility] - 01/21/2025 2:02 AM EDT Low blood volume submitted, results may be compromised Gus Vigil APRN LAB MICROBIOLOGY - GENER AL ORDERABLES Final Result [facility] [address] [place] [address] * XR Chest 1 View (01/15/2025 11:21 [...] MD on 01/15/2025 11:40 PM Gus Vigil DISPATCH CLERK IMG XR PROCEDURES Final Result * XR [...] MD on 01/15/2025 11:40 PM Gus Vigil DISPATCH CLERK IMG XR PROCEDURES Final Result * Type [...] ORDERA BLES Final Result Performing Organization Address [facility]/ZIP Co de Phone Number [facility] [address] [place] [address], [place] * ECG Adult (01/15/2025 10:46 PM EDT) EKG DIAGNOSIS CLASS Normal MUSE ECG Ventricular Rate 92 BPM MUSE ECG Atrial Rate 92 BPM MUSE ECG FL Interval 122 ms MUSE ECG QRSD Interval 102 ms MUSE ECG QT Interval 350 ms MUSE ECG QTC Interval 432 ms MUSE ECG P Correll 56 degrees MUSE ECG R Correll 44 degrees MUSE ECG T Wave Correll 57 degrees MUSE ECG Diagnosis Normal sinus rhythm MUSE ECG Diagnosis Normal ECG MUSE ECG Diagnosis MUSE ECG Diagnosis Confirmed by Richard Mccracken ([id number]) on 01/16/2025 8:55:10 PM MUSE ECG 01/15/2025 10:4 6 PM EDT 01/16/2025 8:55 PM EDT Ye Navarro MD ECG ORDERABLES Final Resu lt Performing Organization Address [facility]/ZIP Co de Phone Number MUSE ECG * Blood Culture (Aerobic/Anaerobet Set) (01/15/2025 10:11 PM EDT) Culture No growth at day 5 01/20/2025 11:01 PM EDT [facility] Blood Structure of antecubital vein / Unknown Venipuncture / Unknown 01/15/2025 10:11 PM EDT 01/15/2025 10:19 PM EDT Narrative [facility] - 01/20/2025 11:01 PM EDT Low blood volume submitted, results may be compromised Gus Vigil APRN LAB MICROBIOLOGY - GENER AL ORDERABLES Final Result [facility] [address] [place] [address] * (ABNORMAL) Sed rate, automated (01/15/2025 10:11 PM EDT) Sedimentation Rate 46(H) <15 mm/hr 2024 10:34 PM EDT [facility] Blood Venous blood specimen / Unknown Venipuncture / Unknown 01/15/2025 10:11 PM EDT 01/15/2025 10:12 PM EDT [facility] LAB BLOOD ORDERABLES Fin al Result Performing Organization Address [facility] de Phone Number [facility] [address] [place] [address] * (ABNORMAL) C-Reactive protein (01/15/2025 10:11 PM EDT) [facility] CRP, Plasma 91.9(H) <=8.0 mg/L 01/15/2025 10:32 PM EDT [facility] Blood Venous blood specimen / Unknown Venipuncture / Unknown 01/15/2025 10:11 PM EDT 01/15/2025 10:12 PM EDT Narrative [facility] - 01/15/2025 10:32 PM EDT This CRP test is appropriate for assessment of infection, systemic inflammation and/or tissue injury. To assess cardiovascular disease risk order high sensitivity CRP (CRPH). [facility] Vigil [facility] LAB BLOOD ORDERABLES Fin al Result Performing Organization Address [facility] de Phone Number [facility] [address] [place] [address] * (ABNORMAL) Blood gas panel, venous (01/15/2025 10:11 PM EDT) pH, Venous 7.39 7.32 - 7.43 LAB HEMATOLOGY METHOD 01/15/2025 10:14 PM EDT [facility] pCO2, Venous 47 40 - 55 mmHg LAB HEMATOLOGY METHOD 01/15/2025 10:14 PM EDT [facility] pO2, Venous 34 25 - 40 mmHg LAB HEMATOLOGY METHOD 01/15/2025 10:14 PM EDT [facility] SO2, Measured, Venous 68 65 - 80 % LAB HEMATOLOGY METHOD 01/15/2025 10:14 PM EDT [facility] Base Excess, Venous 2.8 -2.0 - 3.0 mmol/L LAB HEMATOLOGY METHOD 01/15/2025 10:14 PM EDT [facility] Bicarbonate, Calculated, Venous 29(H) 22 - 26 mmol/L LAB HEMATOLOGY METHOD 01/15/2025 10:14 PM EDT [facility] Hematocrit, Whole Blood 40.4 40.0 - 51.0 % LAB HEMATOLOGY METHOD 01/15/2025 10:14 PM EDT [facility] Sodium, Whole Blood 135(L) 136 - 145 mmol/L LAB HEMATOLOGY METHOD 01/15/2025 10:14 PM EDT [facility] Potassium, Whole Blood 4.3 3.6 - 4.9 mmol/L LAB HEMATOLOGY METHOD 01/15/2025 10:14 PM EDT [facility] Chloride, Whole Blood 99 97 - 107 mmol/L LAB HEMATOLOGY METHOD 01/15/2025 10:14 PM EDT [facility] Glucose, Whole Blood 110(H) 74 - 99 mg/dL LAB HEMATOLOGY METHOD 01/15/2025 10:14 PM EDT [facility] Lactate, Venous, Whole Blood 1.1 0.5 - 2.2 mmol/L LAB HEMATOLOGY METHOD 01/15/2025 10:14 PM EDT [facility] Ionized Calcium, Whole Blood 4.6 4.6 - 5.1 mg/dL LAB HEMATOLOGY METHOD 01/15/2025 10:14 PM EDT [facility] Blood Venous blood specimen / Unknown Venipuncture / Unknown 01/15/2025 10:11 PM EDT 01/15/2025 10:12 PM EDT us Gus Vigil APRN LAB BLOOD ORDERABLES Fin al Result [facility] [address] [place] [address] * (ABNORMAL) CMP (01/15/2025 10:11 PM EDT) Glucose, Plasma 116(H) 74 - 99 mg/dL 01/15/2025 10:32 PM EDT [facility] BUN, Plasma 14 7 - 21 mg/dL 01/15/2025 10:32 PM EDT [facility] Creatinine, Plasma 0.78 0.70 - 1.20 mg/dL 01/15/2025 10:32 PM EDT [facility] BUN/Creatinine Ratio 18 01/15/2025 10:32 PM EDT [facility] Sodium, Plasma 134(L) 136 - 145 mmol/L 01/15/2025 10:32 PM EDT [facility] Potassium, Plasma 4.6 3.6 - 4.9 mmol/L 01/15/2025 10:32 PM EDT [facility] Chloride, Plasma 97 97 - 107 mmol/L 01/15/2025 10:32 PM EDT [facility] CO2, Plasma 24 22 - 29 mmol/L 01/15/2025 10:32 PM EDT [facility] Anion Gap 13 6 - 16 mmol/L 01/15/2025 10:32 PM EDT [facility] Total Calcium, Plasma 8.7(L) 8.9 - 10.2 mg/dL 01/15/2025 10:32 PM EDT [facility] Total Protein 6.5 6.3 - 7.9 g/dL 01/15/2025 10:32 PM EDT [facility] Albumin, Plasma 3.7 3.5 - 5.2 g/dL 01/15/2025 10:32 PM EDT [facility] AST, Plasma 23 10 - 50 U/L 01/15/2025 10:32 PM EDT [facility] ALT, Plasma 52(H) 10 - 50 U/L 01/15/2025 10:32 PM EDT [facility] Alkaline Phosphatase, Plasma 124(H) 40 - 115 U/L 01/15/2025 10:32 PM EDT [facility] Total Bilirubin, Plasma 0.3 0.2 - 1.1 mg/dL 01/15/2025 10:32 PM EDT [facility] eGFRcr 119.3 mL/min/1.7 3m*2 01/15/2025 10:32 PM EDT [facility] Comment:Reported eGFRcr in m L/min/1.73m2 is based the CKD-EPI 2020 equation that does not use a race coefficient. Blood Venous blood specimen / Unknown Venipuncture / Unknown 01/15/2025 10:11 PM EDT 01/15/2025 10:12 PM EDT [facility] LAB BLOOD ORDERABLES Fin al Result Performing Organization Address [facility] Co de Phone Number [facility] [address] [place] [address] * PT-INR (01/15/2025 10:11 PM EDT) Prothrombin Time 12.5 12.0 - 14.3 sec 01/15/2025 10:28 PM EDT [facility] INR 1.0 0.9 - 1.1 01/15/2025 10:28 PM EDT [facility] Blood Venous blood specimen / Unknown Venipuncture / Unknown 01/15/2025 10:11 PM EDT 01/15/2025 10:12 PM EDT Narrative [facility] - 01/15/2025 10:28 PM EDT OPTIMAL INR RANGES FOR PATIENT ON ORAL ANTICOAGULANT THERAPY Prevention of venous thromboembolism INR 2.0 to 3.0 In patients with heart disease: Atrial fibrillation INR 2.0 to 3.0 Valvular heart disease INR 2.0 to 3.0 Tissue heart valves INR 2.0 to 3.0 Mechanical prosthetic valves INR 2.5 to 3.5 Prevention of recurrent [place] INR 2.5 to 3.5 [facility] Vigil DISPATCH CLERK LAB BLOOD ORDERABLES Fin al Result Performing Organization Address [facility] Co de Phone Number [facility] [address] [place] [address] * (ABNORMAL) CBC w/diff (01/15/2025 10:11 PM EDT) WBC Count 19.24(H) 3.70 - 10.30 10*3/uL LAB HEMATOLOGY METHOD 01/15/2025 10:14 PM EDT [facility] RBC Count 4.33(L) 4.60 - 6.10 10*6/uL LAB HEMATOLOGY METHOD 01/15/2025 10:14 PM EDT [facility] HGB 13.0(L) 13.7 - 17.5 g/dL LAB HEMATOLOGY METHOD 01/15/2025 10:14 PM EDT [facility] HCT 39.3(L) 40.0 - 51.0 % LAB HEMATOLOGY METHOD 01/15/2025 10:14 PM EDT [facility] Platelet Count 383(H) 155 - 369 10*3/uL LAB HEMATOLOGY METHOD 01/15/2025 10:14 PM EDT [facility] MCV 91 79 - 98 fL LAB HEMATOLOGY METHOD 01/15/2025 10:14 PM EDT [facility] MCH 30.0 26.0 - 32.0 pg LAB HEMATOLOGY METHOD 01/15/2025 10:14 PM EDT [facility] MCHC 33.1 30.7 - 35.5 g/dL LAB HEMATOLOGY METHOD 01/15/2025 10:14 PM EDT [facility] RDW 13.2 11.5 - 14.5 % LAB HEMATOLOGY METHOD 01/15/2025 10:14 PM EDT [facility] MPV 9.2 8.8 - 12.5 fL LAB HEMATOLOGY METHOD 01/15/2025 10:14 PM EDT [facility] nRBC 0.0 <=0.0 per 100 WBCs LAB HEMATOLOGY METHOD 01/15/2025 10:14 PM EDT [facility] Differential Type Automated LAB HEMATOLOGY METHOD 01/15/2025 10:14 PM EDT [facility] Neutrophils % 78 % LAB HEMATOLOGY METHOD 01/15/2025 10:14 PM EDT [facility] Lymphocytes % 12 % LAB HEMATOLOGY METHOD 01/15/2025 10:14 PM EDT [facility] Monocytes % 8 % LAB HEMATOLOGY METHOD 01/15/2025 10:14 PM EDT [facility] Eosinophils % 1 % LAB HEMATOLOGY METHOD 01/15/2025 10:14 PM EDT [facility] Basophils % 0 % LAB HEMATOLOGY METHOD 01/15/2025 10:14 PM EDT [facility] Immature Granulocytes % 1 % LAB HEMATOLOGY METHOD 01/15/2025 10:14 PM EDT [facility] Neutrophils Absolute 15.11(H) 1.60 - 6.10 10*3/uL LAB HEMATOLOGY METHOD 01/15/2025 10:14 PM EDT [facility] Lymphocytes Absolute 2.34 1.20 - 3.90 10*3/uL LAB HEMATOLOGY METHOD 01/15/2025 10:14 PM EDT [facility] Monocytes Absolute 1.46(H) 0.30 - 0.90 10*3/uL LAB HEMATOLOGY METHOD 01/15/2025 10:14 PM EDT [facility] Eosinophils Absolute 0.13 0.00 - 0.50 10*3/uL LAB HEMATOLOGY METHOD 01/15/2025 10:14 PM EDT [facility] Basophils Absolute 0.06 0.00 - 0.10 10*3/uL LAB HEMATOLOGY METHOD 01/15/2025 10:14 PM EDT [facility] Immature Granulocytes Absolute 0.14(H) 0.00 - 0.06 10*3/uL LAB HEMATOLOGY METHOD 01/15/2025 10:14 PM EDT [facility] Blood Venous blood specimen / Unknown Venipuncture / Unknown 01/15/2025 10:11 PM EDT 01/15/2025 10:12 PM EDT Narrative [facility] - 01/15/2025 10:14 PM EDT Therapeutic decision making should be based on absolute values, rather than percentages. Gus Vigil APRN LAB BLOOD ORDERABLES Fin al Result [facility] [address] [place] [address] documented in this encounter Visit Diagnoses Diagnosis Cellulitis of leg, left- Primary Sepsis following procedure, initial encounter ([facility]) Cellulitis of left lower extremity Acute postoperative pain Other acute postoperative pain Closed fracture of left tibial plateau with routine healing, subsequent encounter Cellulitis of leg, left Cellulitis of left lower extremity Cellulitis of left lower extremity documented in this encounter Admitting Diagnoses Diagnosis Cellulitis of leg, left Cellulitis of left lower extremity Sepsis following procedure ([facility]) Closed fracture of left [...] at 0750, Until 01/22/25 at 1922, Routine, line care sodium hypochlorite [...] 2001 (Given - Provider: Taryn Miranda RN) 043 (Given - Provider: Taryn Miranda RN)1221 (Given [...] Sneha 01/16/25 at 0900, Until Discontinued, Routine 0820 (Not Given - Provider: Alem Witt RN - Reason: Hold for condition: must add comment - Comment: patient going to OR today)0924 (OCT Hold - Provider: Automatic Transfer Provider - Reason: Patient in procedure)1217 (MAR Unhold - Provider: Automatic Transfer Provider)2001 (Given - Provider: Taryn Miranda RN) 09 (Given - Provider: Katalina Martinez RN)2106 (Given [...] Miranda RN) 09 (Given - Provider: Katalina Martinez RN)210 (Given - Provider: Taryn Miranda RN) 0847 [...] Comment: priority conflict)2247 (New Bag - Provider: Tarny Miranda RN) 0432 (New Bag - Provider: [...] procedure)1216 (OCT Unhold - Provider: Automatic Transfer Provider)192 [...] and no response to magnesium hydroxide 09 ([facility] Hold - Provider: Automatic Transfer Provider - Reason: Patient in procedure)1216 ([facility] Unhold - Provider: Automatic Transfer Provider) [...] pain 0411 (Given - Provider: Taryn Miranda RN)923 ([facility] Hold - Provider: Automatic Transfer Provider - Reason: Patient in procedure)1216 ([facility] Unhold - Provider: Automatic Transfer Provider)1630 (Not Given - Provider: Alem Witt RN - Reason: Patient/family refused)2002 (Given - Provider: Taryn Miranda RN) 043 (Given - Provider: Taryn Miranda, SHEREEN)2107 (Given - Provider: Taryn Miranda RN) magnesium hydroxide (Milk of Magnesia) 400 MG/5ML suspension 30 mL 30 mL, Oral, Daily PRN, Starting on Sneha 01/16/25 at 0750, Until Mon01/22/25 at 1922, Routine, constipation, if no bowel movement for 48 hours 09 ([facility] Hold - Provider: Automatic Transfer Provider - Reason: Patient in procedure)1216 ([facility] Unhold - Provider: Automatic Transfer Provider) naloxone (Narcan) injection 0.08 mg 0.08 mg, Intravenous, As needed, Starting on Sneha 01/16/25 at 0753, Until Mon01/22/25 at 1922, Routine, respiratory depression, every 2 minutes 09 ([facility] Hold - Provider: Automatic Transfer Provider - Reason: Patient in procedure)1216 ([facility] Unhold - Provider: Automatic Transfer Provider) [...] Transfer Provider)1556 (Given - Provider: Alem Witt RN)2003 (Given - Provider: Taryn Miranda RN) 0021 (Given - Provider: Taryn Miranda RN)0433 (Given - Provider: Taryn Miranda RN) oxyCODONE (Roxicodone) immediate release tablet 5 mg 5 mg, Oral, Every 6 hours PRN, Starting on Mon01/21/25 at 0847, Until Mon01/22/25 at 1922, Routine, severe pain 0903 (Given - Provider: Katalina Martinez RN)1857 (Given - Provider: Katalina Martinez, SHEREEN)2320 (Given - Provider: Taryn Miranda, RN) 0501 (Given - Provider: Taryn Miranda [...] at 0750, Until 01/22/25 at 1922, Routine, line care Group 3: [...] documented as of this encounter Care Teams Band Lining Bander Relationship Specialty Start Date End Date Renetta Pardo APRN [address] [place] [address] [place] [address] PCP - General 09/09/23 02/16/25 documented as of this encounter
--- OUTSIDE RECORDS SUMMARY | 2025-01-18 09:04 | XMS_ITS | Encounter Summary ---
Author Organization Healthcare Address [address] [place] [address] Care Team Providers Care Continuity Writer Name Role Phone Renetta Pardo APRN Primary Care Provider [phone] [phone] Reason for Visit * Auth/Cert (Routine) Specialty Diagnoses / Procedures Referred By Adalid t Referred To Contact Diagnoses Acute postoperative pain Cellulitis of leg, left Cellulitis of left lower extremity Sepsis following procedure, initial encounter ([facility]) recent LLE surgery @ now with cellulitis Sachin Garza MD [address] [facility] [address] [place] [address] Phone: tel: fax: PAV H Inpatient [address] [place] [address] Phone: tel: Referral ID Status Reason Start Date Expiration Date Visits Re quested Visits Authorized [id number] 1 1 Encounter Details Date Type Department Care Team (Late st Contact Info) Description 01/18/2025 9:04 AM EDT Anesthesia Event PAV A OPERATING ROOM [address] [place] [address] Mark Little MD [address] [place] [address] [place] Arriaga DO [address] [place] [phone] Anesthesia Record Procedure Summary Procedure Name Responsible [...] place to sleep or slept in a usp (including now)? No 09/12/2023 Humiliation, Afraid, Rape, [...] any time in the past 12 m [facility], were you homeless or living in a usp (including now)? No 01/17/2025 CAGE ASSESSMENT Answer [...] drink first t traci in the morning (EYE-POWER SHEAR OPERATOR) to steady your nerves or to [...] portions of the procedure(s) and immediately available [facility] services the entire duration. See [...] portions of the procedure(s) and immediately available [facility] services the entire duration. See resident note for details. * Anesthesia Preprocedure Evaluation - [place] Arriaga DO - 01/18/2025 8:18 AM EDT Patient: Panda Machado Procedure Information Date/Time: 01/18/25900 Procedure: INCISION AND DRAINAGE, LOWER EXTREMITY (Left: Leg Lower) - supine, berch w/ ext, cystotubing, cx cups, soft tissue set, curettes, 6L NS [facility] [place] OR Surgeons: Ye Navarro MD 35 M [...] Description 03/27/2025 9:30 AM EDT Office Visit [facility] [address] [place] [phone] [place] Collado MD [address] [facility] [address] [place] [address] 04/07/2025 10:45 AM EDT Appointment [facility] Radiology [address], 1[address] [place] [address] 04/07/2025 11:20 AM EDT Office Visit [facility] Orthopaedic Surgery & Sports Medicine [address], [address] [place] [address] [place] Hayes MD [address] [place] [address] documented as of this encounter Procedures Procedure Name Priority Date/Time Associated Diagnosis Comments PB ANESTHESIA PLACEHOLDER Routine 01/18/2025 9:14 AM EDT [place] AN ELECTIVE ENDOTRACHEAL AIRWAY Routine 01/18/2025 9:14 AM EDT ANESTHESIA PERIPHERAL IV PLACEMENT Routine 01/18/2025 9:13 AM EDT documented in this encounter Results * [place] AN ELECTIVE ENDOTRACHEAL AIRWAY, PB ANESTHESIA PLACEHOLDER (01/18/2025 9:14 AM EDT) Mark Perez MD - 01/18/2025 9:14 AM EDT Mark Little MD 01/18/2025 1:31 PM Airway Date/Time: 01/18/2025 9:14 AM Reason: elective Airway not difficult General Information and Staff Patient location during procedure: OR Anesthesiologist: Mark Little MD Resident: Sterilng Arriaga DO Performed: Resident Patient Condition Indications [...] prep: alcohol Technique: anatomical landmarks Attempts: 1 us Mark Little MD ANESTHESIA ORDERABLES Final [...] documented as of this encounter Care Teams Continuity Writer Relationship Specialty Start Date End Date Renetta Pardo APRN [address] [place] [address] [place] [address] PCP - General 09/09/23 02/16/25 documented as of this encounter
--- OUTSIDE RECORDS SUMMARY | 2025-01-20 09:49 | XMS_ITS | Encounter Summary ---
Author Organization Healthcare Address [address] [place] [address] Care Team Providers Care Boat Crew Deck Hand Name Role Phone Renetta Pardo APRN Primary Care Provider [phone] [phone] Reason for Visit * Auth/Cert (Routine) Specialty Diagnoses / Procedures Referred By Adalid t Referred To Contact Diagnoses Acute postoperative pain Cellulitis of leg, left Cellulitis of left lower extremity Sepsis following procedure, initial encounter (CMS/[facility]) recent LLE surgery @ now with cellulitis Sachin Garza MD [address] [place] [address] Phone: tel: fax: P[facility] H Inpatient [address] [place] [address] Phone: tel: Referral ID Status Reason Start Date Expiration Date Visits Re quested Visits Authorized [id number] 1 1 Encounter Details Date Type Department Care Team (Late st Contact Info) Description 01/20/2025 9:49 AM EDT Anesthesia Event [facility] [address] [place] [address] Filemon Matute MD [address] [place] [address] Gladis Tejada APRN [address] [place] [address] [phone] (work) Anesthesia Record Procedure Summary Procedure Name [...] place to sleep or slept in a skilled nursing (including now)? No 09/12/2023 Humiliation, Afraid, Rape, [...] any time in the past 12 m [facility], were you homeless or living in a skilled nursing (including now)? No 01/17/2025 CAGE ASSESSMENT Answer [...] drink first t traci in the morning (EYE-POWDER MILL OPERATOR) to steady your nerves or to get rid of a hangover? 0 09/10/2023 CAGE Questionnaire Score 0 024 Utilities Answer Date Recorded In the past 12 months has th e electric, gas, oil, or water [employer] threatened to shut off services in your [...] portions of the procedure(s) and immediately available [facility] services the entire duration. See [...] portions of the procedure(s) and [facility]. See resident note for details. * Anesthesia Preprocedure Evaluation - Filemon Matute MD - 01/20/2025 7:12 AM EDT Patient: Panda Machado Procedure Information Date/Time: 01/20/25 1020 Procedure: INCISION AND DRAINAGE, LOWER EXTREMITY (Left: Leg Lower) Location: [facility] 1 / [place] Surgeons: Ye Navarro MD HPI Panda [...] Normal Ventricular Rate 92 Atrial Rate 92 NM Interval 122 QRSD Interval 102 QT Interval 350 QTC Interval 432 P [place] 56 R [place] 44 T Wave [place] 57 Diagnosis Normal sinus rhythm Diagnosis Normal [...] LEG SURGERY Left [3] Allergies Allergen Reactions [place] Hives [4] acetaminophen, 1,000 mg, Oral, q6h [...] Description 03/27/2025 9:30 AM EDT Office Visit [facility] [address] [phone] Santiago Collado MD [address] [facility] [address] [place] [address] 04/07/2025 10:[address] [facility] Radiology [address], 1[address] [place] [address] 04/07/2025 11:20 AM EDT Office Visit [facility] Orthopaedic Surgery & Sports Medicine [address], 1[address] [place] [address] Lawrence Hayes MD [address] [place] [address] documented as of this encounter Procedures Procedure Name Priority Date/Time Associated Diagnosis Comments ANESTHESIA PERIPHERAL IV PLACEMENT Routine 01/20/2025 10:10 AM EDT PB ANESTHESIA PLACEHOLDER Routine 01/20/2025 9:56 AM EDT NM AN ELECTIVE ENDOTRACHEAL AIRWAY Routine 01/20/2025 9:56 AM EDT documented in this encounter Results * Peripheral IV (01/20/2025 10:10 AM EDT) Filemon Villareal MD - 01/20/2025 10:10 AM EDT Filemon Matute MD 01/20/2025 10:25 AM Peripheral IV Date/Time: 01/20/2025 10:10 AM Placement Needle size: 18 G Location: hand Site prep: alcohol Technique: anatomical landmarks Attempts: 1 us Filemon Matute MD ANESTHESIA ORDERABLES Final Res ult * [place] AN ELECTIVE ENDOTRACHEAL AIRWAY, PB ANESTHESIA PLACEHOLDER (01/20/2025 9:56 AM EDT) Filemon Villareal MD - 01/20/2025 9:56 AM EDT Filemon [...] documented as of this encounter Care Teams Boat Crew Deck Hand Relationship Specialty Start Date End Date Renetta Pardo APRN [address] [place] [address] [place] [address] PCP - General 09/09/23 02/16/25 documented as of this encounter
--- OUTSIDE RECORDS SUMMARY | 2025-01-20 09:52 | XMS_ITS | Encounter Summary ---
Author Organization Healthcare Address [address] [place] [address] Care Team Providers Care Boiler Repair Supervisor Name Role Phone Renetta Pardo APRN Primary Care Provider [phone] Reason for Visit * Reason Comments Post-op Problem * Auth/Cert (Routine) Specialty Diagnoses / Procedures Referred By Adalid t Referred To Contact Diagnoses Acute postoperative pain Cellulitis of leg, left Cellulitis of left lower extremity Sepsis following procedure, initial encounter ([facility]) recent LLE surgery @ now with cellulitis Sachin Garza MD [address] [address] Phone: tel: fax: PAV H Inpatient [address] [place] [address] Phone: tel: Referral ID Status Reason Start Date Expiration Date Visits Re quested Visits Authorized [id number] 1 1 Encounter Details Date Type Department Care Team (Late st Contact Info) Description 01/20/2025 9:52 AM EDT - 01/20/2025 11:57 AM EDT Surgery PAV A OPERATING ROOM [address] [place] [address] Bob Nava MD [id number] [place] [address] INCISION AND DRAINAGE, LOWER EXTREMITY [...] any time in the past 12 m [facility], were you homeless or living [...] drink first t traci in the morning (EYE-ICU RN) to steady your nerves or to [...] from the original note were not included. [address]01 Flushing Your PICC Line at Home Your [...] soap and water, use an alcohol-based hand nanotechnologist. The gel should have at least 60% [...] PICC. Last Reviewed Date: 2024 00:00:00 ?? [id number] [employer]. All rights reserved. This information is not intended as a substitute for professional medical care. Always follow your healthcare professional's instructions. * [facility] - Leigh Rg RN - 01/22/2025 4:21 PM EDT Images from the original note were not included. 18101 Discharge Instructions: Changing the Dressing on Your [...] damage Last Reviewed Date: 2024 00:00:00 ?? [id number] [employer]. All rights reserved. This information is not [...] the video go to this web address: [email or web address], scan this QR code with your smart phone ?? [facility] * Leigh Muller RN - 01/22/2025 4:20 PM EDT Images from the original note were not included. 50971 Understanding Post Sepsis Syndrome (PSS) Sepsis is [...] infections Last Reviewed Date: 2022 00:00:00 ?? 7382-0774 [employer]. All rights reserved. This information is not intended as a substitute for professional medical care. Always follow your healthcare professional's instructions. * Rosaura [facility] - Leigh Rg RN - 01/22/2025 4:20 PM EDT Images from the original note were not included. [id number] Buckle (Torus) Fracture of a Leg Your [...] wet, you can dry it with a family medicine chair on the cool setting. ? Put [...] doctor Last Reviewed Date: 2024 00:00:00 ?? 4215-9744 [employer]. All rights reserved. This information is not intended as a substitute for professional medical care. Always follow your healthcare professional's instructions. * Rosaura [facility] - Leigh Rg RN - 01/22/2025 4:20 PM EDT Images from the original note were not included. 84957 Discharge Instructions for Cellulitis You have been [...] are in pain. Ask what kind of xsfz-nkc-wkkuqcs medicine you can take for pain. ? [...] Vomiting. Last Reviewed Date: 2024 00:00:00 ?? 0297-7565 [employer]. All rights reserved. This information is not intended as a substitute for professional medical care. Always follow your healthcare professional's instructions. * Discharge Summary - Mauricio Mondragon MD - 01/22/2025 4:16 PM EDT Hospitalization Admit Date/Time: 01/15/2025 9:32 PM Admitting Attending: Sachin Garza Discharge Date: 01/22/25 Discharge Attending Physician: Sachin Garza MD PCP name and Address: Renetta Pardo, CHAIRMAN & CEO [address] [place] [address] Dr Kang B / [facility] [address] Referring provider name and address: Maldonado Luciano PA [address] [place] [address] [place] [address] Chief Concern, Brief History of Present Illness, and Hospital Course Patient arrived to [facility] on 01/15/25 with concern for surgical [...] medications were sent to [facility] - [place], [place] - [address], [facility] [address] DAPTOmycin injection These medications were sent to [facility] - [place], [place] - [address] [facility] [address] oxyCODONE 5 MG immediate release capsule Discharge [...] leg, left Sepsis following procedure ([facility]) Cellulitis of left lower extremity Post [...] AM [facility] ORTHOPAEDICS YARD DRIVER [facility] 02/03/2025 8:10 AM Lawrence Hayes MD [facility] 02/11/2025 1:00 PM Ary Santiago APRN [facility] [place] 03/03/2025 1:00 PM Ary Santiago APRN IDBCCLX [...] General: Spoke with: Patient, Family, and Bedside hot blaster and Interventions: Assessed: Dressing Dressing Interventions: CDI [...] please contact the Orthopedic Transition Nurse at [phone] Monday through Monday 8:00 am to 2:30 pm. If you feel your concern is a medical emergency please call 911 immediately * Progress Notes - Anna Elam RN - 01/22/2025 9:28 AM EDT Case Management Discharge Note Ravin Ribeiro 34 y.o. male CSN: [id number] Admission: 01/15/2025 9:32 PM Primary Problem: Cellulitis of leg, left Primary Conduit Cleaner: Primary Caregiver: Self Assistance Available at Discharge: Current Outpatient/Agency/Support Group: DME Availability of Care Givers (#Hours): 24 hours Family/Conduit Cleaner(s) Willingness Assessed to care for patient at home: Yes Family/Conduit Cleaner(s) Readiness Assessed to care for patient at [...] Community Agency(s): Patient's Choice of Community Agency(s): [facility] Patient/Family Anticipated Services at Transition: Patient/Family Anticipated Services at Transition: outpatient care DME/Equipment Needed after Discharge: Equipment Currently Used at Home: walker, rolling, commode chair, wheelchair, manual Equipment Needed After Discharge: walker, rolling, commode chair Readmission Within the Last 30 Days: Readmission Within the Last 30 Days: other (see comments) (cellulitis) Medicare Documentation: Medicare Second Notice?: No (pt [place]) Follow-up: No follow-up provider specified. Discharge Transportation: Transportation Anticipated: family or friend will provide Transportation Home at Discharge: Family/Friend will Provide Has discharge transport been arranged?: No Follow Up Transport: Transportation Needed to Follow up Appoinments: Family/Friend will Provide Additional Comments: Per primary provider, pt is medically ready to discharge home with standard OPAT. PICC in place. Pt will follow up at [facility] for weekly PICC care and labs. First appointment is scheduled for 01/27 at 11 AM. Pt's family will be able to provide assistance and transportation. [facility] will complete teaching today and deliver IV ABX to bedside around 3 PM. Pt and S/O is aware and agreeable to discharge POC. [facility] [phone] [phone] Anna Elam RN * Progress Notes - [...] [facility] Orthopaedic Trauma Service Pager: [phone] Orthopaedic Recon/Spine/Foot and Ankle Service Pager: [phone] Cosigned by Lawrence Hayes MD at 01/22/2025 [...] [facility] Orthopaedic Trauma Service Pager: [phone] Orthopaedic Recon/Spine/Foot and Ankle Service Pager: [phone] Personal Pager: [phone] Cosigned by Lawrence Hayes MD at 01/22/2025 1:06 PM EDT * Procedures - Norma Miranda RN - 01/21/2025 7:01 PM EDTAssociated Order(s): Insert PICC line Insert PICC line Date/Time: 01/21/2025 7:01 PM Performed by: Norma Miranda RN Authorized by: Sachin Garza MD [place] Protocol: Verbal consent obtained?: Yes Written consent [...] preference Patient position: Supine Catheter Lot #: [id number] Catheter rn call center: [facility] Power[facility]ICC Solo Catheter placed: Single lumen Catheter [...] to either go to his local hospital [facility] or come to [facility] in [place] for his weekly PICC care/labs if needed. * Nursing Note - Camden Vital RN - 01/21/2025 1:45 PM EDT Orthopedic Transition Nurse Note General: Spoke with: Patient, Family, and Bedside hot blaster and Interventions: Assessed: Dressing Dressing Interventions: CDI [...] please contact the Orthopedic Transition Nurse at [phone] Monday through Monday 8:00 am to 2:30 pm. If you feel your concern is a medical emergency please call 911 immediately * Steff Odell RN - 01/21/2025 11:57 AM EDT Images from the original note were not included. [id number] PICC Line Care PICC stands for peripherally [...] arm Last Reviewed Date: 2024 00:00:00 ?? 4546-6681 [employer]. All rights reserved. This information is not intended as a substitute for professional medical care. Always follow your healthcare professional's instructions. * Steff Odell RN - 01/21/2025 11:56 AM EDT Images from the original note were not included. [id number] * Steff Odell RN - 01/21/2025 11:56 AM EDT Images from the original note were not included. [id number] * Steff Odell RN - 01/21/2025 11:56 [...] your house or a medical facility. The social work case manager/social service manager will setthat up based on your [...] or during weekends/[place] holidays, call the paging record press operator at . Ask for the infectious disease fellow asset protection representative. Call the clinic if you have [...] from the original note were not included. 66494 Flushing Your PICC Line at Home Your [...] soap and water, use an alcohol-based hand nanotechnologist. The gel should have at least 60% [...] PICC. Last Reviewed Date: 2024 00:00:00 ?? 8345-5172 [employer]. All rights reserved. This information is not intended as a substitute for professional medical care. Always follow your healthcare professional's instructions. * [facility] - Steff Paz RN - 01/21/2025 11:56 AM EDT Images from the original note were not included. [id number] Daptomycin Injection Brand Name(s): Cubicin??, Cubicin RF??; [...] to the Food and Drug Administration's (FDA) StrikeAdtch Adverse Event Reporting program online (https://www.fda.gov/Safety/MedWatch) or by phone ( ). What should I do in case of OVERDOSE? In case of overdose, call the poison control helpline at . Information is also available online at https://www.poisonhelp.org/help. If the victim has collapsed, had a seizure, has trouble breathing, or can't be awakened, immediately call emergency services at 237. What OTHER INFORMATION should I know? Keep [...] of all of the prescription and nonprescription (xzpi-lrj-gyfolav) medicines you are taking, as well as [...] or pharmacist about specific clinical use. The [place] [employer] represents that the information provided hereunder was formulated with a reasonable standard of care, and in conformity with professional standards in the field. The [place] [employer] makes no representations or warranties, express or implied, including, but not limited to, any implied warranty of merchantability and/or fitness for a particular purpose, with respect to such information and specifically disclaims all such warranties. Users are advised that decisions regarding drug therapy are complex medical decisions requiring the independent, informed decision of an appropriate health primary care sales representative, and the information is provided for informational purposes only. The entire monograph for a drug should be reviewed for a thorough understanding of the drug's actions, uses and side effects. The [employer] does not endorse or recommend the use of any drug.The information is not a substitute for medical care. AHFS?? Patient Medication Information?. ?? Copyright, 2023. The [employer]System Pharmac[employer]??, [address], [address], [place], [place]. All Rights Reserved. Duplication for commercial use must be authorized by [facility]. Selected Revisions: July 28, 2019. AHFS?? Patient Medication Information?. ?? Copyright, 2024 * [facility] Steff P[facility] - 01/21/2025 11:56 AM EDT Images from the original note were not included. 91461 Discharge Instructions: Caring for Your Peripherally Inserted [...] damage. Last Reviewed Date: 2024 00:00:00 ?? 2377-3598 The [employer]. All rights reserved. This information is not intended as a substitute for professional medical care. Always follow your healthcare professional's instructions. * [facility] - Steff Paz RN - 01/21/2025 11:56 AM EDT Images from the original note were not included. 89900 Central Line Infections You need a central [...] water. Or they use an alcohol-based hand nanotechnologist containing at least 60% alcohol. ? Using [...] (warm or cold), and use alcohol-based hand nanotechnologist with at least 60% alcohol as directed. To clean your hands well,follow the guidelines on this sheet. Visitors should wash their hands well when they arrive and when they leave. ? Make sure healthcare staff and your visitors clean their hands. They should use soap and clean, running water or an alcohol-based hand nanotechnologist before and after checking the line. Don?t [...] good choice for cleaning your hands. The nanotechnologist should have at least 60% alcohol. Note that some germs can't be killed by alcohol. Your healthcare team can answer any questions you have about when to use a hand nanotechnologist, or when it?s better to wash with soap and water. Follow these steps: ? Spread the hand nanotechnologist in the palm of one hand. (Check the package for specific guidelines.) ? Rub your hands together briskly. Clean the backs of your hands, the palms, between your fingers, and up your wrists. ? Rub until the nanotechnologist is gone and your hands are completely [...] skin Last Reviewed Date: 2023 00:00:00 ?? 7258-0124 The [employer]. All rights reserved. This information is not [...] Single Lumen PICC Patient Specific Outpatient Circumstances: [address] [place] [address] Family Support: Extended Emergency Contact Information Primary Emergency Contact: Hayley Buenrostro Address: [address] [place] [address] Mobile Relation: Significant Other Preferred language: Surinamese Kiln Maintenance needed? No Secondary Emergency Contact: Jenny Buenrostro Address: [address] [place] [address] Mobile Relation: Mother Contact information: Ravin Ribeiro [phone] (home) Outpatient services (including home infusion, home health, facility referral: See recent [place] case management/social work note for finalization of services ID follow up appointment: Future Appointments Date Time Provider Department Center 02/03/2025 8:10 AM Lawrence Hayes MD [facility] 02/11/2025 1:00 PM Ary Santiago APRN [...] via secure chat or staff messaging in [facility]. Patient and family will need to [...] days prior to presentation. He presented to [facility] wherehe was febrile to 101.3F. Upon [...] PA-C Division of Infectious Diseases Available on [facility] Chat History, assessment, and plan discussed [...] labs to: ID OPAT Team Fax #: [phone] Appointments: Ary Santiago APRN on 02/11 at 1PM and 03/03 at 1PM [facility]: [address] [place] [address] (Select Option 3 for IV Antibiotic / PICC line related issues) For questions regarding OPAT prior to discharge, reach out to the OPAT team via [facility] Secure Chat (Group: OPAT Referral Team). For all questions regarding OPAT after discharge should be directed to the OPAT Team at (Select Option 3 for IV Antibiotics/PICC Issues) between 8am-5pm. After 5 pm, or during weekends/[place] holidays, please call the paging record press operator at to reach the on-call ID [...] mg 400 mg Oral q4h PRN Tyrone Howadr MD 400 mg at 01/21/25 0432 magnesium [...] at 01/18/25 1133 [2] Allergies Allergen Reactions Cost Hives * Consults - Delma Ortiz - 01/21/2025 10:00 AM EDT Pastoral Care Note: Patient was appreciative of makeup artist's visit and expressed gratitude to the care team. he said family is on their way to him. Referral From: Shoe Coverer Initiated Pastoral Care Provided For: Patient Patient Profile: Spiritual Assessment: Support Systems/ Spiritual Resources: Treasure, Sense of Peace, Trust, Gratitude Spiritual Needs: Emotional support, Spiritual ritual Spiritual Issues: Discharge Interventions: Pastoral Care Outcomes: Patient Outcomes: Appreciative of Shoe Coverer Support, Expresses acceptance, Gratitude Cosigned by Macrina Dumont at 01/21/2025 6:24 PM EDT Associated attestation - Macrina Dumont - 01/21/2025 6:24 PM EDT This is to attest makeup artist editing intern chart note has been reviewed and [...] ambulate in room/hallway with family and staff software engineer while remains inpatient. Patient demonstrates no [...] Prevent or Manage Infection Flowsheets (Taken 01/20/2025 0398) Infection Management: aseptic technique maintained Fever Reduction/Comfort Measures: lightweight bedding Problem: Fall Injury Risk Goal: Absence of Fall and Fall-Related Injury Outcome: Ongoing, Progressing * Anesthesia PACU Signout - Kevin Berg DO - 01/20/2025 11:47 AM EDT Patient: Ravni Ribeiro Anesthesia Type: general Vitals Value Taken [...] Agree with above assessment and evaluation from resident/DEALER RELATIONSHIP MANAGER. * Progress Notes - Anna Elam RN - 01/20/2025 10:48 AM EDT Case Management Adult Progress Note Ravin Ribeiro 34 y.o. male CSN: [id number] Admission: 01/15/2025 9:32 PM Primary Problem: Cellulitis of leg, left Anticipated Discharge Date: TBD Pt to OR today for repeat I&D on left knee. Pt has worsening NORMAN and team wants to repeat AM labs. Final ID recs and OPAT eval are pending. [facility] and HH today. Pt's medicaid may be a potential barrier to HH. CM will continue to assist with discharge POC. Anna Elam RN * Op Note - Bob Nava MD - 01/20/2025 10:26 AM EDT Operative Note Date: 01/20/25 Location: [facility] Name: Ravin Ribeiro, : 1990, Diagnoses: Pre-op Diagnosis Closed fracture of left tibial plateau with routine healing, subsequent encounter Left proximal tibia (knee region) deep abscess Post-op Diagnosis Closed fracture of left tibial plateau with routine healing, subsequent encounter Left proximal tibia (knee region) deep abscess Procedure(s): Incision and drainage of left knee deep abscess Attending Surgeon(s): * Bob Nava - Primary Channel Marketing Manager(s): * Emely Giron MD - Resident [...] days prior to presentation. He presented to [facility] wherehe was febrile to 101.3F. Upon [...] PA-C Division of Infectious Diseases Available on [facility] Chat History, assessment, and plan discussed [...] 10 mL 10 mL Intravenous q12h Filemon Mautte MD And sodium chloride 0.9 % flush [...] Gustavo Hightower MD [2] Allergies Allergen Reactions Cost Hives * Consults - Ricco Howard RN [...] [facility] Orthopaedic Trauma Service Pager: [phone] Orthopaedic Recon/Spine/Foot and Ankle Service Pager: [phone] Cosigned by Sachin Garza MD at 01/20/2025 [...] Sepsis following procedure, initial encounter ([facility]) 2. Cellulitis of left lower extremity [...] admission Level of Mobility: Ambulatory- community Mobility [place]: Independent gait without device (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 Patient provided with cuing throughout activity for pain management techniques and provided with repositioning for comfort and pressure relief. Delirium Screening Evra Agitation Sedation Scale (RASS): Alert and calm [...] Mobility Bed Mobility Exam: Scooting/Bridging Level of [place]: Independent Bed Mobility Exam: Supine to Sit Level of [place]: Independent Transfers Transfer Exam: Sit to stand Level of [place]: Stand-by assist Physical/Nonphysical Assist: Verbal Cues Assistive Device: Walker, rolling Transfer Exam: Stand to Sit Level of [place]: Stand-by assist Physical/Nonphysical Assist: Verbal Cues Assistive Device: Walker, rolling Toilet Transfer Level of [place]: Stand-by assist Physical/Nonphysical Assist: Verbal Cues Type of Transfer: Ambulation, To toilet Assistive Device: Walker, rolling, Grab bar Functional Mobility Device: Rolling walker Assistance: Standby assist <Household distance, cuing for safety, pacing activity, RW management, and encouraged L LE WBAT-as permitted per chart (pt reports being 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 NWB 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 management 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) Balance Postural Appearance Posture: Within Functional Limits [...] admission Level of Mobility: Ambulatory- community Mobility [place]: Independent gait without device (intermittne use of [...] Mobility Bed Mobility Exam: Scooting/Bridging Level of [place]: Independent Bed Mobility Exam: Supine to Sit Level of [place]: Independent Transfers Transfer Exam: Sit to stand Level of [place]: Stand-by assist Physical/Nonphysical Assist: Verbal Cues Assistive Device: Walker, rolling Transfer Exam: Stand to Sit Level of [place]: Stand-by assist Physical/Nonphysical Assist: Verbal Cues Assistive [...] Assessments Standardized Assessments: AMPA 6-Clicks Mobility Assessment [facility] 6-Clicks Mobility Assessment Difficulty patient has [...] 3-5 steps with a railing?: A little [facility] 6-Clicks Mobility Assessment Total : 23 [...] [facility] Orthopaedic Trauma Service Pager: [phone] Orthopaedic Recon/Spine/Foot and Ankle Service Pager: [phone] Personal Pager: [phone] Cosigned by Ye Navarro MD at 01/21/2025 [...] Attending Surgeon(s): * Ye Navarro - Primary Channel Marketing Manager(s): * Harvey Swift MD - Resident 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 hot blaster and Interventions: Assessed: Wound 01/01/25 Surgical Open Surgical Incision Pretibial Left;Proximal (Active) Wound Assessment Red 01/15/250 Margins Well-defined edges;Attached edges 01/15/252149 Janeth-Wound Assessment Red 01/15/25 215 Closure [place] 01/15/252149 Wound 01/01/25 Face Left;Upper (Active) Education: Education provided on: Pain protocol/management Plan of Care: Follow up with TBD. Op-Plan: Awaiting to see how patient responds to IV abx. Contact Card Given: no Comments: Team is waiting to see if patient improves on IV abx. Awaiting ID recs. For medical questions or concerns after discharge, please contact the Orthopedic Transition Nurse at [phone] Monday through Monday 8:00 am to 2:30 [...] ] Family [ ] Friend [ ] Kiln Maintenance [X] Medical records HISTORY OF PRESENT ILLNESS: [...] medial pretibial incision so he presented to [facility] for evaluation. He was febrile to101.3F [...] on day of presentation. He lives in [place] with his , CONSTANZA, and 2 young [...] days prior to presentation. He presented to [facility] wherehe was febrile to 101.3F. Upon [...] PA-C Division of Infectious Diseases Available on [facility] Chat History, assessment, and plan discussed with ID attending, Dr. Azucena Collado The following complex inpatient infectious disease services were performed today: Complex antimicrobial therapy counseling and treatment [1] History reviewed. No pertinent past medical history. [2] Past Surgical History: Procedure Laterality Date LEG SURGERY Left [3] Allergies Allergen Reactions Cost Hives [4] Current Facility-Administered Medications Medication Dose Route Frequency Provider Last Rate Last Admin acetaminophen (Tylenol) tablet 1,000 mg 1,000 mg Oral q6h [facility] Tyrone Howard MD 1,000 mg at [...] Note Ravin Ribeiro 34 y.o. male CSN: [id number] Admission: 01/15/2025 9:32 PM Primary Problem: Cellulitis of leg, left [facility] Associate Professor reviewed chart and spoke with patient to complete this Initial Case Management Assessment. PCP: Renetta Pardo APRN Emergency Contact: Extended Emergency Contact Information Primary Emergency Contact: Hayley Buenrostro Address: [address] [place] [address] Mobile Relation: Significant Other Preferred language: Surinamese Kiln Maintenance needed? No Secondary Emergency Contact: Jenny Buenrostro Address: [address] [place] [address] Mobile Relation: Mother Insurance: Primary Visit Coverage Payer Plan Sponsor Code Group Number Group Name [employer] MEDICAID MOLINA PAS[employer]ORT MOLINA MEDICAID Primary Visit Coverage Subscriber Subscriber ID Subscriber Name Subscriber N Subscriber Address [id number] RAVIN RIBEIRO [id number] [place] [address] Patient information: Primary Caregiver: Self Support System: Immediate family Daily Living Activities: Functional Status: Independent Living Arrangements: Spouse/Significant other, Family Type of Residence: Private residence, Single Level [address] [place] [address] Current DME: Equipment Currently Used at Home: [...] Outpatient Dialysis Services: Living Will/Advance Directive/Power of Traveling Clerk /Guardian: Have you reviewed your Advance Directive [...] Pt states he lives at home in [place] with his , MIL, and two small 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 hot blaster and Interventions: Assessed: Wound 01/01/25 Surgical Open Surgical Incision Pretibial Left;Proximal (Active) Wound Assessment Red 01/15/25 2150 Margins Well-defined edges;Attached edges 01/15/25 2150 Janeth-Wound Assessment Red 01/15/25 2150 Closure [place] 01/15/25 2150 Wound 01/01/25 Face Left;Upper (Active) [...] please contact the Orthopedic Transition Nurse at [phone] Monday through Monday 8:00 am to 2:30 [...] cap refill <2 sec, digits [facility] Orthopedic Surgery Tertiary Exam Completed 01/16/25 No [...] [facility] Orthopaedic Trauma Service Pager: [phone] Orthopaedic Recon/Spine/Foot and Ankle Service Pager: [phone] Cosigned by Sachin Garza MD at 01/18/2025 [...] your wound. Based upon recent changes to [place] law related to prescribing opioid pain medications, [...] please contact the Orthopedic Transition Nurse at [phone] Monday through Monday 8:00 am to 2:30 [...] W. Shawn Howard MD PGY-2, Orthopaedic Surgery [facility] Orthopaedic Trauma Service Pager: [phone] Orthopaedic Recon/Spine/Foot and Ankle Service Pager: [phone] [1] History reviewed. No pertinent past medical [...] 25 tablet 0 [4] Allergies Allergen Reactions Cost Hives Cosigned by Sachin Garza MD at [...] 01/16/25 0657 Sepsis following procedure, initial encounter ([facility]) Cellulitis of left lower extremity Acute [...] Sepsis following procedure, initial encounter ([facility]). Diagnoses of Cellulitis of left lower [...] Drug use: Never [5] Allergies Allergen Reactions Cost Hives Gus Vigil APRN 01/16/25 0657 Cosigned [...] Sepsis following procedure, initial encounter ([facility]) Cellulitis of left lower extremity Acute postoperative pain Ultimately, this patient Was admitted (Admission) The primary encounter diagnosis was Sepsis following procedure, initial encounter ([facility]). Diagnoses of Cellulitis of left lower [...] Description 03/27/2025 9:30 AM EDT Office Visit [facility] [address] [place] [address] Santiago Collado MD [address] [phone] 04/07/2025 10:45 AM EDT Appointment [facility] Radiology [address] [place] [address] 04/07/2025 11:20 AM EDT Office Visit [facility] Orthopaedic Surgery & Sports Medicine [address] [place] [address] Lawrence Hayes MD [address] [place] [address] Scheduled Orders Name Type Priority [...] (ABNORMAL) C-reactive protein (01/22/2025 5:04 AM EDT) [facility] CRP, Plasma 44.4(H) <=8.0 mg/L 01/22/2025 [...] ORDERABLES Final Res ult Performing Organization Address City/[facility]/ZIP Co de Phone Number [facility] [address] [place] [address] * Lavender Top (01/22/2025 5:04 AM EDT) [facility] Extra Hold for add-ons 01/22/2025 8:02 AM EDT [facility] Comment:Auto resulted. Blood Venous blood specimen / Unknown 01/22/2025 5:04 AM EDT 01/22/2025 5:30 AM EDT us Sachin Garza MD LAB BLOOD ORDERABLES Final R esult Performing Organization Address City/[facility]/ZIP Co de Phone Number [facility] [address] [place] [address] * (ABNORMAL) Basic metabolic panel (01/22/2025 5:04 [...] R esult [facility] [address] [place] [address] * (ABNORMAL) CBC (01/21/2025 7:29 PM EDT) [...] Final R esult [facility] [address] [place] [address] * (ABNORMAL) Basic metabolic panel (01/21/2025 7:29 [...] R esult [facility] [address] [place] [address] * PICC SINGLE LUMEN (SMARTFORM LINK) (01/21/2025 7:01 PM EDT) Narrative Norma Miranda RN - 01/21/2025 7:01 PM EDT Norma Miranda RN 01/21/2025 7:19 PM Insert PICC line Date/Time: 01/21/2025 7:01 PM Performed by: Norma Miranda RN Authorized by: Sachin Garza MD [place] Protocol: Verbal consent obtained?: Yes Written consent [...] preference Patient position: Supine Catheter Lot #: [id number] Catheter rn call center: [facility]ICC Solo Catheter placed: Single lumen [...] Final Result Performing Organization Address [facility] Co de Phone Number [facility] [address] [place] [address] * Fungal Culture, Routine (01/20/2025 10:42 AM [...] RDERABLES Final Result [facility] [address] [place] [address] * Anaerobic Culture (01/20/2025 10:42 AM EDT) [...] O RDERABLES Final Result Performing Organization Address City/[facility]/ZIP Co de Phone Number [facility] [address] [place] [address] * Fungal Culture, Tissue and SYEDA (01/20/2025 [...] Final Result Performing Organization Address [facility] Co de Phone Number [facility] [address] [place] [address] * AFB Culture, Non Respiratory Source and [...] O RDERABLES Final Result Performing Organization Address City/[facility]/ZIP Co de Phone Number [facility] [address] [place] [address] * Tissue Culture and Gram Stain (01/20/2025 [...] O RDERABLES Final Result Performing Organization Address City/[facility] Co de Phone Number [facility] [address] [place] [address] * Anaerobic Culture (01/20/2025 10:30 AM EDT) [...] RDERABLES Final Result [facility] [address] [place] [address] * Fungal Culture, Tissue and SYEDA (01/20/2025 [...] Final Result Performing Organization Address [facility] [place] [address] * AFB Culture, Non Respiratory Source and Acid Fast Stain (01/20/2025 10:27 AM EDT) AFB Culture No Mycobacterial Growth at 6 Weeks 03/04/2025 4:15 PM EDT [facility] Acid Fast Stain No acid fast bacilli seen 03/04/2025 4:15 PM EDT [facility] Tissue Structure of left knee region / Unknown 01/20/2025 10:27 AM EDT 01/20/2025 11:24 AM EDT Comment:Pre-op diagnosis: Closed fracture of left tibial plateau with routine healing, subsequent encounter [S82.142D] us Bob Nava MD LAB MICROBIOLOGY - GENERAL O RDERABLES Final Result Performing Organization Address [facility] Co de Phone Number [facility] [address] [place] [address] * Tissue Culture and Gram Stain (01/20/2025 [...] Final Result Performing Organization Address [facility] [place] [address] * Anaerobic Culture (01/20/2025 10:27 AM EDT) [...] RDERABLES Final Result Performing Organization Address [facility] [place] [address] * (ABNORMAL) Creatine Kinase (CK), Total (01/20/2025 3:40 AM EDT) Creatine Kinase, Plasma 18(L) 49 - 320 U/L 01/21/2025 12:17 PM EDT [facility] Blood Venous blood specimen / Unknown Venipuncture / Unknown 01/20/2025 3:40 AM EDT 01/20/2025 3:57 AM EDT Sachin Garza MD LAB BLOOD ORDERABLES Final R esult Performing Organization Address City/[facility]/ZIP Co de Phone Number [facility] [address] [place] [address] * Vancomycin, random (01/20/2025 3:40 AM EDT) Vancomycin, Random, Plasma 20.1 ug/mL 01/20/2025 4:51 AM EDT [facility] Blood Venous blood specimen / Unknown Venipuncture / Unknown 01/20/2025 3:40 AM EDT 01/20/2025 3:57 AM EDT us Sachin Garza MD LAB BLOOD ORDERABLES Final R esult Performing Organization Address [facility]/ZIP Co de Phone Number [facility] [address] [place] [address] * Protime-INR (01/20/2025 3:40 AM EDT) Prothrombin [...] INR 2.5 to 3.5 Prevention of recurrent DC INR 2.5 to 3.5 us Sachin Garza MD LAB BLOOD ORDERABLES Final R esult Performing Organization Address City/[facility]/ZIP Co de Phone Number [facility] [address] [place] [address] * (ABNORMAL) Basic metabolic panel (01/20/2025 3:40 [...] Final R esult [facility] [address] [place] [address] * (ABNORMAL) CBC W/O Differential (01/20/2025 3:40 [...] Final R esult [facility] [address] [place] [address] * Vancomycin, random (01/19/2025 11:48 AM EDT) Vancomycin, Random, Plasma 22.9 ug/mL 01/19/2025 1:05 PM EDT [facility] Blood Venous blood specimen / Unknown Venipuncture / Unknown 01/19/2025 11:48 AM EDT 01/19/2025 11:50 AM EDT us Sachin Garza MD LAB BLOOD ORDERABLES Final R esult [facility] [address] [place] [address] * (ABNORMAL) Basic Metabolic Panel, Plasma (01/18/2025 [...] Final R esult [facility] [address] [place] [address] * (ABNORMAL) CBC W/O Differential (01/18/2025 11:54 [...] Final R esult [facility] [address] [place] [address] * AFB Culture, Non Respiratory Source and Acid Fast Stain (01/18/2025 3:28 PM EDT) AFB Culture No Mycobacterial Growth at 6 Weeks 03/02/2025 8:42 AM EDT [facility] Acid Fast Stain No acid fast bacilli seen 03/02/2025 8:42 AM EDT [facility] Joint Fluid Topography unknown / Unknown Non-blood Collection / Unknown 01/18/2025 3:28 PM EDT 01/18/2025 3:28 PM EDT Sachin Garza MD LAB MICROBIOLOGY - GENERAL O RDERABLES Final Result [facility] [address] [place] [address] * Fungal Culture, Sterile Body Fluid (NOT CSF) and SYEDA (01/18/2025 3:28 PM EDT) Culture No Fungal Growth at 3 Weeks 02/10/2025 8:37 AM EDT [facility] SYEDA No fungal elements seen 02/10/2025 8:37 AM EDT [facility] Joint Fluid Topography unknown / Unknown Non-blood Collection / Unknown 01/18/2025 3:28 PM EDT 01/18/2025 3:28 PM EDT us Sachin Garza MD LAB MICROBIOLOGY - GENERAL O RDERABLES Final Result [facility] [address] [place] [address] * Anaerobic Culture (01/18/2025 3:28 PM EDT) Culture No anaerobes isolated 01/23/2025 7:50 AM EDT [facility] Joint Fluid Topography unknown / Unknown Non-blood Collection / Unknown 01/18/2025 3:28 PM EDT 01/18/2025 3:28 PM EDT us Sachin Garza MD LAB MICROBIOLOGY - GENERAL O RDERABLES Final Result Performing Organization Address [facility]/ZIP Co de Phone Number [facility] [address] [place] [address] * (ABNORMAL) Body Fluid Culture and Gram Stain (01/18/2025 3:28 PM EDT) Culture Heavy Growth 01/20/2025 8:34 AM EDT [facility] Culture Methicillin-Resista nt Staphylococcus aureus(AA) 01/20/2025 8:34 AM EDT [facility] Comment: For susceptibility results refer to: - [id number] The organism value for this result has [...] Final Result Performing Organization Address [facility] Co de Phone Number [facility] [address] [place] [address] * Body fluid, cytospin, pathologist interpretation (01/18/2025 [...] Final Result Performing Organization Address [facility]/ZIP Co de Phone Number [facility] [address] [place] [address] * Joint Fluid Crystals (01/18/2025 3:01 PM EDT) Crystals, Joint Fluid No Crystals Seen No Crystals Present 01/18/2025 5:28 PM EDT [facility] Joint Fluid Structure of left knee region / Unknown 01/18/2025 3:01 PM EDT 01/18/2025 3:28 PM EDT us Sachin Garza MD LAB BODY FLUIDS AND STOOLS O RDERABLES Final Result Performing Organization Address [facility]/ZIP Co de Phone Number [facility] [address] [place] [address] * (ABNORMAL) Body Fluid Cell Count w/ [...] TYPE/SOURCE Final Result [facility] [address] [place] [address] * Body Fluid Culture and Gram Stain (01/18/2025 12:17 PM EDT) Culture No growth at day 4 2024 11:06 AM EDT [facility] Gram Stain Result No polymorphonuclear leukocytes seen 01/21/2025 11:06 AM EDT [facility] Gram Stain Result No organisms seen 01/21/2025 11:06 AM EDT [facility] Joint Fluid Synovial fluid specimen / Unknown Non-blood Collection / Unknown 01/18/2025 12:17 PM EDT 01/18/2025 3:24 PM EDT Comment:Pre-op diagnosis: Cellulitis of left lower extremity [L03.116] Dwaine Das DO LAB MICROBIOLOGY - GENERAL ORDERABLES Final Result Performing Organization Address City/[facility]/ZIP Co de Phone Number [facility] [address] [place] [address] * Joint Infection Panel by PCR (01/18/2025 [...] 5:28 PM EDT [facility] Enterococcus faecium PCR Result Not Detected Not Detected 01/18/2025 5:28 PM EDT [facility] Finegoldia magna PCR Result Not Detected Not Detected 01/18/2025 5:28 PM EDT [facility] Parvimonas micra PCR Result Not Detected Not Detected 01/18/2025 5:28 PM EDT [facility] Peptoniphilus PCR Result Not Detected Not Detected 01/18/2025 5:28 PM EDT [facility] Peptostreptococcus anaerobius PCR Result [...] obtain isolates for antimicrobial susceptibility testing and [employer] Joint Infection Panel results should be used in conjunction with culture results for the determination of susceptibility or resistance. us Sachin Garza MD LAB MICROBIOLOGY - GENERAL O RDERABLES Final Result [facility] [address] [place] [address] * Fungal Culture, Tissue and SYEDA (01/18/2025 10:00 AM EDT) Pathologist [facility] Culture Reading Mycological 4 Weeks No Fungal Growth at 4 Weeks 02/16/2025 8:50 AM EDT [facility] SYEDA No fungal elements seen 02/16/2025 8:50 AM EDT [facility] Tissue Topography unknown / Unknown 01/18/2025 10:00 AM EDT 01/18/2025 3:26 PM EDT Comment:Pre-op diagnosis: Cellulitis of left lower extremity [L03.116] us Dwanie Das DO LAB MICROBIOLOGY - GENERAL ORDERABLES Final Result Performing Organization Address City/[facility]/ZIP Co de Phone Number [facility] [address] [place] [address] * AFB Culture, Non Respiratory Source and [...] Cellulitis of left lower extremity [L03.116] Dwaine Yevtukh LAB MICROBIOLOGY - GENERAL ORDERABLES Final Result [facility] [address] [place] [address] * (ABNORMAL) Tissue Culture and Gram Stain [...] aureus Vancomycin JOVANI 1 ug/ml: Susceptible [facility] MICROBIOLOGY - GENERAL ORDERABLES Final Result Performing Organization Address City/[facility]/ZIP Co de Phone Number [facility] [address] [place] [address] * Anaerobic Culture (01/18/2025 10:00 AM EDT) Culture No anaerobes isolated 01/23/2025 7:50 AM EDT [facility] Tissue Topography unknown / Unknown 01/18/2025 10:00 AM EDT 01/18/2025 3:26 PM EDT Comment:Pre-op diagnosis: Cellulitis of left lower extremity [L03.116] [facility] MICRO[facility]OLOGY - GENERAL ORDERABLES Final Result Performing Organization Address [facility] Co de Phone Number [facility] [address] [place] [address] * Body fluid, cytospin, pathologist interpretation (01/18/2025 [...] PM EDT [facility] Comment:Reviewed by: Stpehanie conti MD LAB CP ASR DISCLAIMER Yes 01/20/2025 4:28 PM EDT [facility] Cyst Fluid Topography unknown / Unknown 01/18/2025 9:57 AM EDT 01/18/2025 3:19 PM EDT Dwaine Das DO LAB BODY FLUIDS AND STOOLS ORDERABLES Final Result [facility] [address] [place] [address] * (ABNORMAL) Body Fluid Cell Count w/ [...] TYPE/SOURCE Final Result [facility] [address] [place] [address] * Fungal Culture, Sterile Body Fluid (NOT [...] Final Result Performing Organization Address [facility]/ZIP Co de Phone Number [facility] [address] [place] [address] * AFB Culture, Non Respiratory Source and [...] Cellulitis of left lower extremity [L03.116] [facility] LAB MICROBIOLOGY - GENERAL ORDERABLES Final Result Performing Organization Address [facility] de Phone Number [facility] [address] [place] [address] * (ABNORMAL) Body Fluid Culture and Gram Stain (01/18/2025 9:57 AM EDT) Culture Heavy Growth 01/20/2025 8:34 AM EDT [facility] Culture Methicillin-Resista nt Staphylococcus aureus(AA) 01/20/2025 8:34 AM EDT [facility] Comment: For susceptibility results refer to: - [id number] The organism value for this result has [...] diagnosis: Cellulitis of left lower extremity [L03.116] [facility] MICROBIOLOGY - GENERAL ORDERABLES Final Result Performing Organization Address [facility] Co de Phone Number [facility] [address] [place] [address] * Anaerobic Culture (01/18/2025 9:57 AM EDT) Culture No anaerobes isolated 01/23/2025 7:50 AM EDT [facility] Cyst Fluid Topography unknown / Unknown 01/18/2025 9:57 AM EDT 01/18/2025 3:26 PM EDT Comment:Pre-op diagnosis: Cellulitis of left lower extremity [L03.116] [facility] - GENERAL ORDERABLES Final Result Performing Organization Address [facility] [place] [address] * Methicillin Resistant Staphylococcus aureus (MRSA) by PCR (01/18/2025 7:43 AM EDT) Methicillin Resistant Staphylococcus aureus (MRSA) by PCR Not Detected Not Detected 01/18/2025 9:36 AM EDT [facility] Swab Both anterior nares / Unknown Non-blood [...] RDERABLES Final Result [facility] [address] [place] [address] * (ABNORMAL) Basic metabolic panel (01/18/2025 12:18 [...] R esult [facility] [address] [place] [address] * (ABNORMAL) CBC W/O Differential (01/18/2025 12:18 [...] R esult Performing Organization Address [facility] Co de Phone Number [address] [address] * Vancomycin, Peak, Plasma Please draw ~2 [...] R esult Performing Organization Address [facility] de Phone Number [facility] [address] [place] [address] * Vancomycin, Trough, Plasma Please draw ~30 [...] Final R esult [facility] [address] [place] [address] * (ABNORMAL) Basic metabolic panel (01/17/2025 4:05 [...] Final R esult [facility] [address] [place] [address] * US Extremity Limited MSK or Soft [...] ORDERABLES Final Re sult Performing Organization Address [facility] de Phone Number [facility] [address] [place] [address] * Prothrombin Time/INR (01/16/2025 4:31 AM EDT) Prothrombin Time 12.9 12.0 - 14.3 sec 01/16/2025 4:46 AM EDT [facility] INR 1.0 0.9 - 1.1 01/16/2025 4:46 AM EDT [facility] Blood Venous blood specimen / Unknown Venipuncture [...] INR 2.5 to 3.5 Prevention of recurrent DC INR 2.5 to 3.5 us Jeffrey Matute MD LAB BLOOD ORDERABLES Final Re sult Performing Organization Address [facility] Co de Phone Number [facility] [address] [place] [address] * (ABNORMAL) CBC W/O Differential (01/16/2025 4:31 [...] AM EDT 01/16/2025 4:33 AM EDT us Abhistracie Matute MD LAB BLOOD ORDERABLES Final Re sult [facility] [address] [place] [address] * CT Tibia Fibula Left w IV [...] ORDERABLES Final Result [facility] [address] [place] [address] * XR Chest 1 View (01/15/2025 11:21 [...] ORDERA BLES Final Result [facility] BANK [address] [place] [address], * ECG Adult (01/15/2025 10:46 PM EDT) EKG DIAGNOSIS CLASS Normal MUSE ECG Ventricular Rate 92 BPM MUSE ECG Atrial Rate 92 BPM MUSE ECG GA Interval 122 ms MUSE ECG QRSD Interval 102 ms MUSE ECG QT Interval 350 ms MUSE ECG QTC Interval 432 ms MUSE ECG P [place] 56 degrees MUSE ECG R [place] 44 degrees MUSE ECG T Wave [place] 57 degrees MUSE ECG Diagnosis Normal sinus [...] ORDERABLES Final Result [facility] [address] [place] [address] * (ABNORMAL) Sed rate, automated (01/15/2025 10:11 PM EDT) Sedimentation Rate 46(H) <15 mm/hr 2024 10:34 PM EDT [facility] Blood Venous blood specimen / Unknown Venipuncture / Unknown 01/15/2025 10:11 PM EDT 01/15/2025 10:12 PM EDT [facility] Vig[facility] CHAIRMAN & CEO LAB BLOOD ORDERABLES Fin al Result Performing Organization Address [facility] Co de Phone Number [facility] [address] [place] [address] * (ABNORMAL) C-Reactive protein (01/15/2025 10:11 PM [...] (CRPH). Gus Vigil APRN LAB BLOOD ORDERABLES Buck gutierrez Result Performing Organization Address [facility] de Phone Number [facility] [address] [place] [address] * (ABNORMAL) Blood gas panel, venous (01/15/2025 [...] EDT 01/15/2025 10:12 PM EDT Gus Vigil CHAIRMAN & CEO LAB BLOOD ORDERABLES Fin al Result [facility] [address] [place] [address] * (ABNORMAL) CMP (01/15/2025 10:11 PM EDT) [...] EDT 01/15/2025 10:12 PM EDT [facility] APRN LAB BLOOD ORDERABLES Fin al Result Performing Organization Address City/[facility]/ZIP Co de Phone Number [facility] [address] [place] [address] * PT-INR (01/15/2025 10:11 PM EDT) Prothrombin Time 12.5 12.0 - 14.3 sec 01/15/2025 10:28 PM EDT [facility] INR 1.0 0.9 - 1.1 01/15/2025 10:28 PM EDT [facility] Blood Venous [...] INR 2.5 to 3.5 Prevention of recurrent DC INR 2.5 to 3.5 Gus Vigil APRN LAB BLOOD ORDERABLES Fin al Result Performing Organization Address City/[facility]/ZIP Co de Phone Number [facility] [address] [place] [address] * (ABNORMAL) CBC w/diff (01/15/2025 10:11 PM [...] EDT Narrative [facility] - 01/15/2025 10:14 PM EDT Therapeutic decision making should be based on absolute values, rather than percentages. Gus Vigil APRN LAB BLOOD ORDERABLES Fin al Result [facility] [address] [place] [address] documented in this encounter Visit Diagnoses Diagnosis Cellulitis of leg, left- Primary Sepsis following procedure, initial encounter ([facility]) Cellulitis of left lower extremity Acute postoperative pain Other acute postoperative pain Closed fracture of left tibial plateau with routine healing, subsequent encounter Cellulitis of leg, left Cellulitis of left lower extremity Sepsis following procedure ([facility]) Closed fracture of left tibial plateau Closed fracture of left tibial plateau with routine healing, subsequent encounter documented in this encounter Admitting Diagnoses Diagnosis Cellulitis of leg, left Cellulitis of left lower extremity Sepsis following procedure ([facility]) Closed fracture of left tibial plateau [...] Until 01/22/25 at 1922, Routine, line care traMADol (Ultram) [...] 2001 (Given - Provider: Taryn Miranda RN) 431 (Given - Provider: Taryn Miranda RN)122 (Given - Provider: Katalina Martinez, SHEREEN) DAPTOmycin [...] comment - Comment: patient going to OR today)923 (OCT Hold - Provider: Automatic Transfer Provider - Reason: Patient in procedure)1217 (OCT Unhold - Provider: Automatic Transfer Provider)2001 (Given - Provider: Taryn Miranda RN) 900 (Given - Provider: Katalina Martinez, SHEREEN)2106 (Given - Provider: Taryn Miranda, RN) 0848 (Given - Provider: Leigh Rg [...] RN) 09 (Given - Provider: Katalina Martinez, SHEREEN)2108 (Given - Provider: Taryn Miranda RN) 0847 [...] SHEREEN) 0847 (Medication Applied - Provider: Leigh Rg, SHEREEN) piperacillin-tazobact am (Zosyn) 4.5 g in sodium [...] Transfer Provider) 09 (Not Given - Provider: Katalian Martinez RN - Reason: Patient/family refused) 0847 (Not Given - Provider: Leigh Rg RN - Reason: Patient/family refused) senna-docusate (Janeth-Colace) 8.6-50 MG per tablet 1 tablet 1 tablet, Oral, Nightly, First dose (after last modification) on Mon01/20/25 at 2100, Until Discontinued, Routine 0924 (OCT Hold - Provider: Automatic Transfer Provider - Reason: Patient in procedure)1216 (OCT Unhold - Provider: Automatic Transfer Provider)2000 [...] and no response to magnesium hydroxide 09 ([facility] Hold - Provider: Automatic Transfer Provider - Reason: Patient in procedure)1216 ([facility] Unhold - Provider: Automatic Transfer [...] pain 0411 (Given - Provider: Taryn Miranda, SHEREEN)923 ([facility] Hold - Provider: Automatic Transfer Provider - Reason: Patient in procedure)1216 ([facility] Unhold - Provider: Automatic Transfer Provider)1630 (Not Given - Provider: Alem Witt RN - Reason: Patient/family refused)2002 (Given - Provider: Taryn Miranda, SHEREEN) 043 (Given - Provider: Taryn Miranda, RN)210 (Given - Provider: Taryn Miranda, SHEREEN) magnesium hydroxide (Milk of Magnesia) 400 MG/5ML suspension 30 mL 30 mL, Oral, Daily PRN, Starting on Sneha 01/16/25 at 0750, Until Mon01/22/25 at 1922, Routine, constipation, if no bowel movement for 48 hours 923 ([facility] Hold - Provider: Automatic Transfer Provider - Reason: Patient in procedure)1216 ([facility] Unhold - Provider: Automatic Transfer Provider) naloxone (Narcan) injection 0.08 mg 0.08 mg, Intravenous, As needed, Starting on Sneha 01/16/25 at 0753, Until Mon01/22/25 at 1922, Routine, respiratory depression, every 2 minutes 09 ([facility] Hold - Provider: Automatic Transfer Provider - Reason: Patient in procedure)1216 (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
--- OUTSIDE RECORDS SUMMARY | 2025-02-03 08:10 | XMS_ITS | Encounter Summary ---
Author Organization Healthcare Address [address] [place] [address] Care Team Providers Care Rig Superintendent Name Role Phone Renetta Pardo APRN Primary Care Provider +1 -[phone] Reason for Visit * Reason Comments Post-op Encounter Details Date Type Department Care Team (Late st Contact Info) Description 02/03/2025 8:10 AM EDT Office Visit [facility] Orthopaedic Surgery & Sports Medicine [address], 1[address] [place] [address] Lawrence Hayes MD [address] [place] [address] Closed fracture of left tibial [...] any time in the past 12 m [facility], were you homeless or living in a [...] drink first t traci in the morning (EYE-COLD ROLL PACKER SHEET IRON) to steady your nerves or to get [...] Orthopaedic Surgery and Sports Medicine Consult Pager: [phone] Service Pager: [phone] Cosigned by Lawrence Hayes MD at 02/03/2025 [...] Description 03/27/2025 9:30 AM EDT Office Visit [facility] [address] [facility] [place] [address] Santiago Collado MD [address] [facility] [address] [place] [address] 04/07/2025 10:45 AM EDT Appointment [facility] Radiology [address], 1[address] [place] [address] 04/07/2025 11:20 AM EDT Office Visit [facility] Orthopaedic Surgery & Sports Medicine [address], 1[address] [place] [address] Lawrence Hayes MD [address] [place] [address] documented as of this encounter Results * [...] documented as of this encounter Care Teams Rig Superintendent Relationship Specialty Start Date End Date Renetta Pardo APRN [address] [place] [address] [place] [address] PCP - General 09/09/23 02/16/25 documented as of this encounter
--- OUTSIDE RECORDS SUMMARY | 2025-02-17 08:40 | XMS_ITS | Encounter Summary ---
Author Organization Healthcare Address [address] [place] [address] Care Team Providers Care Property Field Inspector Name Role Phone Blaine Nava MD Primary Care Provider [phone] Encounter Details Date Type Department Care Team (Latest Contact Info) Description 02/17/2025 8:40 AM EDT - 02/17/2025 1:27 PM EDT Hospital Encounter [facility] Rad[facility] [address] [place] [address] Closed fracture of left tibial [...] and Family Not on file 02/24/2025 Attends Confucianist Services Not on file 02/24 Active Member [...] time in the past 12 m [facility], were you homeless or living in a halfway (including now)? No 02/24/2025 CAGE ASSESSMENT Answer [...] drink first t traci in the morning (EYE-SCIENCE EDUCATION PROFESSOR) to steady your nerves or to get [...] specific directions only. Mix and deliver per institution/[facility] ility policy. 1 each 01/22/2025 5 [...] Description 03/27/2025 9:30 AM EDT Office Visit [facility] [address] [facility] [place] [address] Santiago Collado MD [address] [facility] [address] [place] [address] 04/07/2025 10:45 AM EDT Appointment [facility] Radiology [address] [place] [id number] 04/07/2025 11:20 AM EDT Office Visit [facility] Orthopaedic Surgery & Sports Medicine [address] [place] [address] Lawrence Hayes MD [address] [place] [address] documented as of this encounter [...] documented as of this encounter Care Teams Property Field Inspector Relationship Specialty Start Date End Date Blaine Nava MD [address] [place] [address] [address] [place] [address] PCP - General 02/17/25 documented as of this encounter
--- OUTSIDE RECORDS SUMMARY | 2025-02-17 09:20 | XMS_ITS | Encounter Summary ---
Author Organization Healthcare Address [address] [place] [address] Care Team Providers Care Finish Grinder Name Role Phone Blaine Nava MD Primary Care Provider [phone] Reason for Referral * Imaging (Urgent) - Closed Specialty Diagnoses / Procedures Referred By Adalid wills Referred To Contact Radiology Diagnoses Tibial plateau fracture, left, closed, initial encounter Procedures CT Knee Left wo IV Contrast Stella Lobo APRN [address] [facility] [address] [place] [address] Phone: tel: fax: Referral ID Status Reason Start Date Expiration Date Visits Re quested Visits Authorized [id number] Closed 02/17/2025 08/19/2026 1 1 Reason for Visit * Reason Comments Post-op Encounter Details Date Type Department Care Team (Late st Contact Info) Description 02/17/2025 9:20 AM EDT Office Visit [facility] [address] [place] [address] Lawrence Hayes MD [address] [place] [address] Tibial plateau fracture, left, closed, [...] time in the past 12 m [facility], were you homeless or living in [...] drink first t traci in the morning (EYE-PATTERNMAKER GRADER) to steady your nerves or to get [...] Description 03/27/2025 9:30 AM EDT Office Visit [facility] [address] [facility] [place] [phone] Santiago Collado MD [address] [facility] [address] [place] [address] 04/07/2025 10:45 AM EDT Appointment [facility] Radiology [address] [place] [address] 04/07/2025 11:20 AM EDT Office Visit [facility] Orthopaedic Surgery & Sports Medicine [address] [place] [address] Lawrence Hayes MD [address] [facility] [address] [place] [id number] documented as of this encounter Results * [...] Rogers on 02/17/2025 2:39 PM us Stella N Lobo IMAGING NURSE IMG CT PROCEDURES Final Re sult * (ABNORMAL) C-Reactive Protein, Plasma (02/17/2025 11:00 AM EDT) CRP, Plasma 12.7(H) <=8.0 mg/L 02/17/2025 12:40 PM EDT [facility] Blood Venous blood specimen / Unknown Venipuncture / Unknown 02/17/2025 11:00 AM EDT 02/17/2025 11:00 AM EDT Narrative [facility] - 02/17/2025 12:40 PM EDT This CRP test is appropriate for assessment of infection, systemic inflammation and/or tissue injury. To assess cardiovascular disease risk order high sensitivity CRP (CRPH). us Stella Lobo APRN LAB BLOOD ORDERABLES Final Result Performing Organization Address [facility]/ZIP Co de Phone Number [facility] [address] [place] [address] * (ABNORMAL) Sedimentation Rate, Automated (02/17/2025 11:00 AM EDT) Pathologist [facility] Sedimentation Rate 20(H) <15 mm/hr 2024 12:47 PM EDT [facility] Blood Venous blood specimen / Unknown Venipuncture / Unknown 02/17/2025 11:00 AM EDT 02/17/2025 11:00 AM EDT us Stella Lobo APRN LAB BLOOD ORDERABLES Final Result [facility] [address] [place] [address] * (ABNORMAL) Comprehensive metabolic panel (02/17/2025 11:00 AM EDT) Glucose, Plasma 94 74 - 99 mg/dL 02/17/2025 12:40 PM EDT [facility] BUN, Plasma 13 7 - 21 mg/dL 02/17/2025 12:40 PM EDT [facility] Creatinine, Plasma 0.85 0.70 - 1.20 mg/dL 02/17/2025 12:40 PM EDT [facility] BUN/Creatinine Ratio 15 02/17/2025 12:40 PM EDT [facility] Sodium, Plasma 137 136 - 145 mmol/L 02/17/2025 12:40 PM EDT [facility] Potassium, Plasma 4.6 3.6 - 4.9 mmol/L 02/17/2025 12:40 PM EDT [facility] Chloride, Plasma 101 97 - 107 mmol/L 02/17/2025 12:40 PM EDT [facility] CO2, Plasma 25 22 - 29 mmol/L 02/17/2025 12:40 PM EDT [facility] Anion Gap 11 6 - 16 mmol/L 02/17/2025 12:40 PM EDT [facility] Total Calcium, Plasma 9.3 8.9 - 10.2 mg/dL 02/17/2025 12:40 PM EDT [facility] Total Protein 7.1 6.3 - 7.9 g/dL 02/17/2025 12:40 PM EDT [facility] Albumin, Plasma 4.2 3.5 - 5.2 g/dL 02/17/2025 12:40 PM EDT [facility] AST, Plasma 16 10 - 50 U/L 02/17/2025 12:40 PM EDT [facility] ALT, Plasma 28 10 - 50 U/L 02/17/2025 12:40 PM EDT [facility] Alkaline Phosphatase, Plasma 117(H) 40 - 115 U/L 02/17/2025 12:40 PM EDT [facility] Total Bilirubin, Plasma <0.2(L) 0.2 - 1.1 mg/dL 02/17/2025 12:40 PM EDT [facility] eGFRcr 116.2 mL/min/1.7 3m*2 02/17/2025 12:40 PM EDT [facility] Comment:Reported eGFRcr in m L/min/1.73m2 is based the CKD-EPI 2020 equation that does not use a race coefficient. Blood Venous blood specimen / Unknown Venipuncture / Unknown 02/17/2025 11:00 AM EDT 02/17/2025 11:00 AM EDT us Stella Lobo IMAGING NURSE LAB BLOOD ORDERABLES Final Result [facility] [address] [place] [address] * (ABNORMAL) CBC with Differential (02/17/2025 11:00 AM EDT) WBC Count 7.61 3.70 - 10.30 10*3/uL LAB HEMATOLOGY METHOD 02/17/2025 12:23 PM EDT [facility] RBC Count 4.26(L) 4.60 - 6.10 10*6/uL LAB HEMATOLOGY METHOD 02/17/2025 12:23 PM EDT [facility] HGB 12.5(L) 13.7 - 17.5 g/dL LAB HEMATOLOGY METHOD 02/17/2025 12:23 PM EDT [facility] HCT 39.1(L) 40.0 - 51.0 % LAB HEMATOLOGY METHOD 02/17/2025 12:23 PM EDT [facility] Platelet Count 330 155 - 369 10*3/uL LAB HEMATOLOGY METHOD 02/17/2025 12:23 PM EDT [facility] MCV 92 79 - 98 fL LAB HEMATOLOGY METHOD 02/17/2025 12:23 PM EDT [facility] MCH 29.3 26.0 - 32.0 pg LAB HEMATOLOGY METHOD 02/17/2025 12:23 PM EDT [facility] MCHC 32.0 30.7 - 35.5 g/dL LAB HEMATOLOGY METHOD 02/17/2025 12:23 PM EDT [facility] RDW 13.0 11.5 - 14.5 % LAB HEMATOLOGY METHOD 02/17/2025 12:23 PM EDT [facility] MPV 9.7 8.8 - 12.5 fL LAB HEMATOLOGY METHOD 02/17/2025 12:23 PM EDT [facility] nRBC 0.0 <=0.0 per 100 WBCs LAB HEMATOLOGY METHOD 02/17/2025 12:23 PM EDT [facility] Differential Type Automated LAB HEMATOLOGY METHOD 02/17/2025 12:23 PM EDT [facility] Neutrophils % 52 % LAB HEMATOLOGY METHOD 02/17/2025 12:23 PM EDT [facility] Lymphocytes % 33 % LAB HEMATOLOGY METHOD 02/17/2025 12:23 PM EDT [facility] Monocytes % 8 % LAB HEMATOLOGY METHOD 02/17/2025 12:23 PM EDT [facility] Eosinophils % 5 % LAB HEMATOLOGY METHOD 02/17/2025 12:23 PM EDT [facility] Basophils % 1 % LAB HEMATOLOGY METHOD 02/17/2025 12:23 PM EDT [facility] Immature Granulocytes % 1 % LAB HEMATOLOGY METHOD 02/17/2025 12:23 PM EDT [facility] Neutrophils Absolute 4.07 1.60 - 6.10 10*3/uL LAB HEMATOLOGY METHOD 02/17/2025 12:23 PM EDT [facility] Lymphocytes Absolute 2.50 1.20 - 3.90 10*3/uL LAB HEMATOLOGY METHOD 02/17/2025 12:23 PM EDT [facility] Monocytes Absolute 0.59 0.30 - 0.90 10*3/uL LAB HEMATOLOGY METHOD 02/17/2025 12:23 PM EDT [facility] Eosinophils Absolute 0.36 0.00 - 0.50 10*3/uL LAB HEMATOLOGY METHOD 02/17/2025 12:23 PM EDT [facility] Basophils Absolute 0.05 0.00 - 0.10 10*3/uL LAB HEMATOLOGY METHOD 02/17/2025 12:23 PM EDT [facility] Immature Granulocytes Absolute 0.04 0.00 - 0.06 10*3/uL LAB HEMATOLOGY METHOD 02/17/2025 12:23 PM EDT [facility] Blood Venous blood specimen / Unknown Venipuncture / Unknown 02/17/2025 11:00 AM EDT 02/17/2025 11:00 AM EDT Narrative [facility] - 02/17/2025 12:23 PM EDT Therapeutic decision making should be based on absolute values, rather than percentages. us Stella Lobo IMAGING NURSE LAB BLOOD ORDERABLES Final Result [facility] [address] [place] [address] documented in this encounter Visit Diagnoses Diagnosis [...] documented as of this encounter Care Teams Finish Grinder Relationship Specialty Start Date End Date Blaine Nava MD [address] [place] [address] [address] [place] [id number] PCP - General 02/17/25 documented as of this encounter
--- OUTSIDE RECORDS SUMMARY | 2025-02-17 13:28 | XMS_ITS | Encounter Summary ---
Author Organization Healthcare Address [address] [place] [address] Care Team Providers Care Straight Ruling Machine Operator Name Role Phone Blaine Nava MD Primary Care Provider [phone] Reason for Referral * Imaging (Urgent) - Closed Specialty Diagnoses / Procedures Referred By Contac t Referred To Contact Radiology Diagnoses Tibial plateau fracture, left, closed, initial encounter Procedures CT Knee Left wo IV Contrast Stella Brown APRN [address] [place] [address] Phone: tel: fax: Referral ID Status Reason Start Date Expiration Date Visits Re quested Visits Authorized [id number] Closed 02/17/2025 08/19/2026 1 1 Reason for Visit * Imaging (Urgent) - Closed Specialty Diagnoses / Procedures Referred By Contac t Referred To Contact Radiology Diagnoses Tibial plateau fracture, left, closed, initial encounter Procedures CT Knee Left wo IV Contrast Stella Brown APRN [address] [place] [address] Phone: tel: fax: Referral ID Status Reason Start Date Expiration Date Visits Re quested Visits Authorized [id number] Closed 02/17/2025 08/19/2026 1 1 Encounter Details Date Type Department Care Team (Latest Contact Info) Description 02/17/2025 1:28 PM EDT - 02/17/2025 11:59 PM EDT Hospital Encounter [facility] CT [address] [place] [address] Tibial plateau fracture, left, closed, [...] and Family Not on file 02/24/2025 Attends [employer] Not on file 02/24 Active Member [...] any time in the past 12 m [facility], were you homeless or living in a prison (including now)? No 02/24/2025 CAGE ASSESSMENT Answer [...] drink first t traci in the morning (EYE-EDGING MACHINE CATCHER) to steady your nerves or to get rid of a hangover? 0 09/10/2023 CAGE Questionnaire Score 0 024 Utilities Answer Date Recorded In the past 12 months has th [employer], gas, oil, or water company threatened to [...] 9:30 AM EDT Office Visit [facility] [address] [place] [address] Santiago Collado MD [address] [facility] [address] [place] [address] 04/07/2025 10:45 AM EDT Appointment [facility] Radiology [address] [place] [address] 04/07/2025 11:20 AM EDT Office Visit [facility] Orthopa[facility] Medicine [address] [place] [address] Lawrence Hayes MD [address] [place] [address] documented as of this encounter Procedures Procedure [...] on 02/17/2025 2:39 PM us Stella Brown SWITCHBOARD WIRE WORKER HELPER IMG CT PROCEDURES Final Re sult documented [...] documented as of this encounter Care Teams Straight Ruling Machine Operator Relationship Specialty Start Date End Date Blaine Nava MD [address] [place] [address] #1 #1 JOHN Miller [address] PCP - General 02/17/25 documented as of this encounter
--- OUTSIDE RECORDS SUMMARY | 2025-02-21 09:35 | XMS_ITS | Encounter Summary ---
Author Organization Healthcare Address [address] [place] [address] Care Team Providers Care Material Control Clerk Name Role Phone Blaine Nava MD Primary Care Provider [phone] Reason for Visit * Auth/Cert (Routine) Specialty Diagnoses / Procedures Referred By Adalid t Referred To Contact Diagnoses Tibial plateau fracture, left, closed, initial encounter Surgical site infection Tibial plateau fracture, left, closed, initial encounter [S82.142A] Surgical site infection [T81.49XA] Procedures OK DRAIN LOWER LEG DEEP ABSC/HEMATOMA INCISION AND DRAINAGE, LOWER EXTREMITY Lawrence Hayes MD [address] [address] Phone: tel: fax: [facility] OPERATING ROOM [address] [place] [address] Phone: tel: Referral ID Status Reason Start Date Expiration Date Visits Re quested Visits Authorized [id number] 1 1 Encounter Details Date Type Department Care Team (Latest Contact Info) Description 02/21/2025 9:35 AM EDT - 02/24/2025 8:01 PM EDT Hospital Encounter [facility] PAVA 9 T2 UNI [address] [place] [address] Lawrence Hayes MD [id number] [place] [address] Cellulitis of left lower extremity (Primary [...] and Family Not on file 02/24/2025 Attends [employer] Services Not on file 07/14 /2025 Active [...] in the past 12 m the rehabilitation institute, were you homeless or living in a custodial (including now)? No 02/24/2025 CAGE ASSESSMENT Answer [...] drink first t traci in the morning (EYE-ELECTRICIAN BUS) to steady your nerves or to get rid of a hangover? 0 09/10/2023 CAGE Questionnaire Score 0 024 Utilities Answer Date Recorded In the past 12 months has th e [employer], gas, oil, or water company threatened to [...] note were not included. 798 Narcan Nasal [place]: Rescue Guide for Opioid Overdose Step 1 [...] for use in the nose. * [facility] Adrienne Inman - [...] of Drug Diversion Investigators (NADDI): http://rxdrugdropbox.org/ ?? [place] Office of Drug Control Policy: http://odcp.ky.gov/Prescription+Drug+Drop+Box+Sites.htm Are [...] that tracks prescriptions of controlled substances in [place]. The TIFFANY report tells your doctor if [...] or your doctor may then call the [place] Drug Enforcement and Professional Practices Branch at .This will start an investigation of the error. * Rosaura [facility]ON - Adrienne Inman - 02/24/2025 4:03 PM EDT Images from the original note were not included. [id number] * Rosaura RushDILLON - Adrienne Inman - [...] your house or a medical facility. The lead case manager/home health care social worker will setthat up based on [...] or during weekends/ holidays, call the paging cupola hoist operator at . Ask forthe infectious disease fellow sanitation laborer. Call the clinic if you have any [...] of your leg. This is also called ?Diwroe-zd-Zql Weight Bearing,? ?Toe-Touch Weight Bearing,? or ?Foot-Flat [...] heal and have less pain. * Rosaura [facility] - Adrienne Inman - 02/24/2025 4:02 [...] thoroughly. Use soap and water or hand tax manager and wear gloves before touching the PICC [...] them before you flush the line or blind hooker fluids or medicines. Avoid hard physical work. [...] from the original note were not included. 99890 Preventing a Surgical Site Infection A risk [...] of infection. ?? Controlled body temperature. A bsfye-uyhl-ybdsni temperature during or after surgery prevents oxygen [...] and water or with an alcohol-based hand tax manager before and after caring for you. Don?t [...] away. Last Reviewed Date: 2024 00:00:00 ?? 7920-8987 [employer]. All rights reserved. This information is not intended as a substitute for professional medical care. Always follow your healthcare professional's instructions. * Discharge Summary - Sushil Lea MD - 02/24/2025 3:48 PM EDT Hospitalization Admit Date/Time: 02/21/2025 9:35 AM Admitting Attending: Lawrence Hayes Discharge Date: 02/24/2025 Discharge Attending Physician: Lawrence Hayes MD PCP name and Address: Blaine Nava MD [address] [place], [place] [address] [address] [address] Referring provider name and address: No referring [...] medications were sent to [facility] [address] [facility] [[email or web address] [address], [facility] [address] cefTRIAXone 1 g reconstituted solution DAPTOmycin injection [...] Center 2025 7:50 AM Stella Brown APRN [facility] 2025 10:30 AM Santiago Escalante MD IDBCCLX [place] 03/27/2025 9:30 AM Santiago Escalante MD IDBCCLX [place] Test Results Pending At Discharge [...] discharge. Sushil Lea MD Orthopaedic Surgery PGY-1 [facility] Orthopaedic Trauma Service Pager: [phone] Orthopaedic Recon/Spine/Foot and Ankle Service Pager: [phone] Personal Pager: [phone] Cosigned by Lawrence Hayes [...] 1030AM WEEK 5 FOLLOWUP: 03/27/2025, 0930AM at [address] [place] [address] (Select Option 3 for IV Antibiotic / PICC line related issues) All questions regarding outpatient parenteral antimicrobials after discharge should be directed to the OPAT nurse navigator at (Select Option 3 for IV Antibiotics/PICC Issues) between 8am-5pm. After 5 pm, or during weekends/ holidays, please call the paging cupola hoist operator at to reach the on-call ID fellow. PLEASE NOTIFY THE ID CONSULTING SERVICE OF ANY QUESTIONS REGARDING THESE RECOMMENDATIONS OR WITH ANY ANTIMICROBIAL CHANGES THAT OCCUR AFTER THE DATE/TIME OF THIS OPAT INTAKE NOTE. * Progress Notes - Anna Elam RN - 02/24/2025 11:03 AM EDT Case Management Adult Initial Progress Note Panda Machado 34 y.o. male CSN: [id number] Admission: 02/21/2025 9:35 AM Primary Problem: Surgical site infection Incident Response Coordinator reviewed chart and spoke with patient to complete this Initial Case Management Assessment. PCP: Blaine Nava MD Emergency Contact: Extended Emergency Contact Information Primary Emergency Contact: Hayley Buenrostro Address: [address] [place] [address] Mobile Relation: Significant Other Preferred language: Emirati Direct Support Professional Caregiver needed? No Secondary Emergency Contact: Jenny Buenrostro Address: [address] [place] [address] Mobile Relation: Mother Insurance: Primary Visit Coverage Payer Plan Sponsor Code Group Number Group Name PAS[employer]ORT MEDICAID MOLINA PASSPORT MOLINA MEDICAID Primary Visit Coverage Subscriber Subscriber ID Subscriber Name Subscriber N Subscriber Address [id number] PANDA MACHADO [id number] [place] [address] Patient information: Primary Caregiver: Self Support System: Immediate family Daily Living Activities: Functional Status: Independent Living Arrangements: Spouse/Significant other, Children Type of Residence: Private residence, Single Level [address] [place] [address] Smoker in the Home?: Yes Current DME: [...] DME Provider: Rajesh Living Will/Advance Directive/Power of Senior Biostatistician/Group Leader /Guardian: Unable to assess: No Have you [...] Rajesh today. [facility] and labs and was agreeable to continue receiving care there. CM will send orders when they are available. Pt stated he lives with his and two children. His can provide assistance and transportation. Pt is unemployed and meets 300% FPG. CM will continue to assist with discharge POC. [facility] Nhvyv-[phone] [phone] Update: Final ID recs have been placed and standard OPAT approved. Rajesh will complete teaching and deliver ABX to bedside around 5 PM today. Orders were faxed to [facility]. Infusion center will call pt [...] 10 mg/kg (Adjusted), Intravenous, q24h, Stella Brown, PACKAGE CRIMPER, Last Rate: 264 mL/hr at 02/23/252056, 1,100 [...] packet 17 g, 17 g, Oral, Daily, Carolni Payan MD senna-docusate (Janeth-Colace) 8.6-50 MG per [...] FOR ALL STUDIES, SEE EHR 09/09/2023 HIV saadf negative 09/09/2023 HCV sadaf negative 01/01/2025 HIV sadaf negative 01/01/2025 HCV sadaf negative 01/15/2025 BLD - NGTD 01/16/2025 BLD - NGTD 01/18/2025 Other (specify site); Cyst Fluid Left medial tibial plateau fluid (op cx?) - NCC 20252 (PMN 98%); RBC 240K. GS - GPC. [...] surgical site pain/swelling, erythema. Pt seen at [facility] where CT suggested L medial knee [...] Tobacco: Active smoker ETOH: Denies DRUG ALLERGIES: Stephenson RECOMMENDATIONS: Re: chronic LEFT tibial SSI, implant [...] abx therapy. For now, while inpatient at [facility] Daptomycin 8-10mg/kg IV q24h as primary coverage. [...] appointment in order to complete registration paperwork.) [facility] [place] (Infectious Diseases Clinic) [address] [place] [address] INFORMATION SYSTEMS ADMINISTRATOR: . FAX: ID [facility] Consult [...] -- Annamaria Romero MD Orthopaedic Surgery PGY-1 [facility] Orthopaedic Trauma Service Pager: [phone] Orthopaedic Recon/Spine/Foot and Ankle Service Pager: [phone] Cosigned by Lawrence Hayes MD at 02/26/2025 [...] Edited by: García Shepherd MD at 02/21/2025 0269 - Pain control: MMPC - Diet: regular [...] required Carolin Payan MD Orthopedic Surgery PGY-1 [facility] Cosigned by Lawrence Hayes MD at [...] Equipment Recommended: Patient owns appropriate equipment History Padna Machado is 34 y.o. male admitted 02/21/2025 [...] session. 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 Prior Level of Function Receives Help From: No assist required prior to admission Level of Mobility: Ambulatory- community Mobility Hinds: Independent gait without device History of Falls: [...] Mobility Exam: Supine to Sit Level of Hinds: Stand-by assist Physical/Nonphysical Assist: Verbal Cues Bed Mobility Exam: Sit to Supine Level of Hinds: Stand-by assist Physical/Nonphysical Assist: Verbal Cues Transfers Transfer Interventions: Pt completed a sit to stand transfer with SBA and min cues for safety and maintaing NWB of LLE with good carry over. For stand to sit cues provided for reaching back for surface, extending LLE and eccentric control wtih good carry over. Transfer Exam: Sit to stand Level of Hinds: Stand-by assist Physical/Nonphysical Assist: Verbal Cues Assistive Device: Walker, rolling Transfer Exam: Stand to Sit Level of Hinds: Stand-by assist Physical/Nonphysical Assist: Verbal Cues Assistive [...] uses. Standardized Assessments Standardized Assessments Standardized Assessments: [facility] 6-Clicks Mobility Assessment [facility] 6-Clicks Mobility Assessment Difficulty patient has [...] 3-5 steps with a railing?: A little [facility] 6-Clicks Mobility Assessment Total : 18 [...] a.m. 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 Prior Level of Function Receives Help From: No assist required prior to admission Level of Mobility: Ambulatory- community Mobility Hinds: Independent gait without device History of Falls: [...] Mobility Bed Mobility Exam: Scooting/Bridging Level of Hinds: Stand-by assist Physical/Nonphysical Assist: Verbal Cues Bed Mobility Exam: Supine to Sit Level of Hinds: Stand-by assist Physical/Nonphysical Assist: Verbal Cues Bed Mobility Exam: Sit to Supine Level of Hinds: Stand-by assist Physical/Nonphysical Assist: Verbal Cues Transfers Transfer Exam: Sit to stand Level of Hinds: Stand-by assist Physical/Nonphysical Assist: Verbal Cues Assistive Device: Walker, rolling Transfer Exam: Stand to Sit Level of Hinds: Stand-by assist Physical/Nonphysical Assist: Verbal Cues Assistive [...] Edited by: García Shepherd MD at 02/21/2025 0772 - Pain control: MMPC - Diet: regular [...] required Carolin Payan MD Orthopedic Surgery PGY-1 [facility] Cosigned by Lawrence Hayes MD at [...] Escalante MD Consult ordered by: Stella Brown, PACKAGE CRIMPER Reason for consult: L tibial plateau ORIF [...] surgical site pain/swelling, erythema. Pt seen at [facility] where CT suggested L medial knee [...] Tobacco: Active smoker ETOH: Denies DRUG ALLERGIES: Stephenson ALLERGIES: NKDA. MEDS: ABX: Daptomycin 02/21/2025 - [...] PRN, Goran Ty CRNA, 10 mg at [id number] oxyCODONE (Roxicodone) immediate release tablet 5 mg, [...] mL, 10 mL, Intravenous, PRN, Stella Brown, PACKAGE CRIMPER SOCIAL HISTORY: As above. Otherwise reviewed and [...] tibial plateau fluid (op cx?) - NCC 43699 (PMN 98%); RBC 240K. GS - GPC. [...] lower leg. [facility] suffered closed LEFT femoral shaft fracture, [...] surgical site pain/swelling, erythema. Pt seen at [facility] where CT suggested L medial knee [...] Tobacco: Active smoker ETOH: Denies DRUG ALLERGIES: Stephenson RECOMMENDATIONS: Re: chronic LEFT tibial SSI, implant [...] abx therapy. For now, while inpatient at [facility], pending the above: Continue empiric, broad spectrum [...] PM EDT Operative Note Date: 02/21/25 Location: [facility] Name: Panda Machado, : 1990, Diagnoses: [...] available for all parts of the procedure Professor Of Mechanical Engineering(s): * García Shepherd MD - Resident - [...] No. SYNTHECURE SYNTHETIC CALCIUM SULFATE 10CC - [id number] Implanted Specimen: Specimens ID Source Frozen? A [...] also visualized and removed with a needle delivery driver/customer service. Cultures from the lateral wound were also [...] Travel History: none Immunizations Not reviewed Allergies Stephenson Medications Current Medications[1] Objective Review of Systems [...] 98%. Results Review {Vanishing Link Review Results :[id number] I have reviewed the latest lab and [...] Date INCISION AND DRAINAGE, LEG Left 01/20/2025 ([facility]) INCISION AND DRAINAGE, LOWER EXTREMITY (Left: Leg Lower) KNEE SURGERY Left 01/18/2025 ([facility]) INCISION AND DRAINAGE, LOWER EXTREMITY (Left: Leg Lower) LEG SURGERY Left ERIKA NAIL IM RODDING Left 09/10/2024 ([facility]) INSERTION, INTRAMEDULLARY VICK, FEMUR (Left: Leg Upper) ORIF TIBIA FRACTURE Left 09/15/2023 ([facility]) ORIF, FRACTURE, TIBIA, PLATEAU (Left: Leg Lower) ORIF TIBIAL PLATEU FRACTURE Left 01/01/2025 ([facility]) ORIF, FRACTURE, TIBIA, PLATEAU (Left: Knee) ORTHOPEDIC SURGERY 09/06/2022 Had 4 other similar surgeries [1] Allergies Allergen Reactions Stephenson Hives [1] No current facility-administered medications for [...] card, photo ID, along with power of program director/music director, guardianship or advanced directives if applicable Do [...] Description 03/27/2025 9:30 AM EDT Office Visit [address] [place] [address] Santiago Escalante MD [address] [facility] [address] [place] [address] 04/07/2025 10:45 AM EDT Appointment [facility] Radiology [address] [place] [address] 04/07/2025 11:20 AM EDT Office Visit [facility] Orthopaedic Surgery & Sports Medicine [address] [place] [address] Lawrence Hayes MD [address] [place] [address] Pending Results Name Type Priority Associated Diagnoses [...] Surgical site infection ANAEROBIC CULTURE Routine 02/21/2025 3: 00 PM EDT Tibial plateau fracture, left, closed, initial encounter Surgical site infection OK DRAIN LOWER LEG DEEP ABSC/HEMATOMA 02/21/2025 2:09 [...] - 99 mg/dL 02/24/2025 7:37 AM EDT [facility] BUN, Plasma 16 7 - 21 mg/dL 02/24/2025 7:37 AM EDT [facility] Creatinine, Plasma 0.89 0.70 - 1.20 mg/dL 02/24/2025 7:37 AM EDT [facility] BUN/Creatinine Ratio 18 02/24/2025 7:37 AM EDT [facility] Sodium, Plasma 137 136 - 145 mmol/L 02/24/2025 7:37 AM EDT [facility] Potassium, Plasma 4.6 3.6 - 4.9 mmol/L 02/24/2025 7:37 AM EDT [facility] Chloride, Plasma 101 97 - 107 mmol/L 02/24/2025 7:37 AM EDT [facility] CO2, Plasma 26 22 - 29 mmol/L 02/24/2025 7:37 AM EDT [facility] Anion Gap 10 6 - 16 mmol/L 02/24/2025 7:37 AM EDT [facility] Total Calcium, Plasma 9.2 8.9 - 10.2 mg/dL 02/24/2025 7:37 AM EDT [facility] eGFRcr 114.6 mL/min/1.7 3m*2 02/24/2025 7:37 AM EDT [facility] Comment:Reported eGFRcr in m L/min/1.73m2 is based the CKD-EPI 2020 equation that does not use a race coefficient. Blood Venous blood specimen / Unknown Venipuncture / Unknown 02/24/2025 7:04 AM EDT 02/24/2025 7:10 AM EDT us Lawrence Hayes MD LAB BLOOD ORDERABLES Final Re sult [facility] [address] [place] [address] * (ABNORMAL) Basic metabolic panel (02/22/2025 2:24 AM EDT) Glucose, Plasma 150(H) 74 - 99 mg/dL 02/22/2025 2:56 AM EDT [facility] BUN, Plasma 20 7 - 21 mg/dL 02/22/2025 2:56 AM EDT [facility] Creatinine, Plasma 0.98 0.70 - 1.20 mg/dL 02/22/2025 2:56 AM EDT [facility] BUN/Creatinine Ratio 20 02/22/2025 2:56 AM EDT [facility] Sodium, Plasma 138 136 - 145 mmol/L 02/22/2025 2:56 AM EDT [facility] Potassium, Plasma 5.2(H) 3.6 - 4.9 mmol/L 02/22/2025 2:56 AM EDT [facility] Chloride, Plasma 101 97 - 107 mmol/L 02/22/2025 2:56 AM EDT [facility] CO2, Plasma 25 22 - 29 mmol/L 02/22/2025 2:56 AM EDT [facility] Anion Gap 12 6 - 16 mmol/L 02/22/2025 2:56 AM EDT [facility] Total Calcium, Plasma 9.2 8.9 - 10.2 mg/dL 02/22/2025 2:56 AM EDT [facility] eGFRcr 103.1 mL/min/1.7 3m*2 02/22/2025 2:56 AM EDT [facility] Comment:Reported eGFRcr in m L/min/1.73m2 is based the CKD-EPI 2020 equation that does not use a race coefficient. Blood Venous blood specimen / Unknown Venipuncture / Unknown 02/22/2025 2:24 AM EDT 02/22/2025 2:28 AM EDT us Lawrence Hayes MD LAB BLOOD ORDERABLES Final Re sult [facility] [address] [place] [address] * (ABNORMAL) CBC (02/22/2025 2:24 AM EDT) WBC Count 10.82(H) 3.70 - 10.30 10*3/uL LAB HEMATOLOGY METHOD 02/22/2025 2:36 AM EDT [facility] RBC Count 3.92(L) 4.60 - 6.10 10*6/uL LAB HEMATOLOGY METHOD 02/22/2025 2:36 AM EDT [facility] HGB 11.9(L) 13.7 - 17.5 g/dL LAB HEMATOLOGY METHOD 02/22/2025 2:36 AM EDT [facility] HCT 35.5(L) 40.0 - 51.0 % LAB HEMATOLOGY METHOD 02/22/2025 2:36 AM EDT [facility] Platelet Count 296 155 - 369 10*3/uL LAB HEMATOLOGY METHOD 02/22/2025 2:36 AM EDT [facility] MCV 91 79 - 98 fL LAB HEMATOLOGY METHOD 02/22/2025 2:36 AM EDT [facility] MCH 30.4 26.0 - 32.0 pg LAB HEMATOLOGY METHOD 02/22/2025 2:36 AM EDT [facility] MCHC 33.5 30.7 - 35.5 g/dL LAB HEMATOLOGY METHOD 02/22/2025 2:36 AM EDT [facility] RDW 12.9 11.5 - 14.5 % LAB HEMATOLOGY METHOD 02/22/2025 2:36 AM EDT [facility] MPV 9.6 8.8 - 12.5 fL LAB HEMATOLOGY METHOD 02/22/2025 2:36 AM EDT [facility] nRBC 0.0 <=0.0 per 100 WBCs LAB HEMATOLOGY METHOD 02/22/2025 2:36 AM EDT [facility] Blood Venous blood specimen / Unknown Venipuncture / Unknown 02/22/2025 2:24 AM EDT 02/22/2025 2:28 AM EDT us Lawrence Hayes MD LAB BLOOD ORDERABLES Final Re sult [facility] [address] [place] [address] * Multi Drug Resistance Test (02/21/2025 6:24 PM EDT) Culture No growth at day 1 02/22/2025 8:30 PM EDT [facility] Swab (Nares and Janeth Rectal) Non-blood Collection / Unknown 02/21/2025 6:24 PM EDT 02/21/2025 6:56 PM EDT Narrative [facility] - 02/22/2025 8:30 PM EDT This test was developed and its performance characteristics determined by the [facility]. Although the media is FDA-approved, it is not FDA-approved for all specimen types submitted. The FDA has determined that such clearance or approval is not necessary. This test is used for surveillance purposes. It should not be regarded as investigational or for research. The [facility] is certified under the Clinical Laboratory Improvement Amendments of 1988 (CLIA-88) as qualified to perform high complexity clinical laboratory testing. Lawrence Hayes MD LAB MICROBIOLOGY - GENERAL OR DERABLES Final Result Performing Organization Address [facility] [place] [address] * Tissue Culture and Gram Stain (02/21/2025 3:14 PM EDT) Culture No growth at day 4 2024 2:36 PM EDT [facility] Gram Stain Result Rare Polymorphonuclear leukocytes 02/25/2025 2:36 PM EDT [facility] Gram Stain Result No organisms seen 02/25/2025 2:36 PM EDT [facility] Tissue Structure of left knee region / Unknown 02/21/2025 3:14 PM EDT 02/21/2025 4:40 PM EDT Comment:Pre-op diagnosis: Tibial plateau fracture, left, closed, initial encounter [S82.142A] Surgical site infection [T81.49XA] us Lawrence Hayes MD LAB MICROBIOLOGY - GENERAL OR DERABLES Final Result Performing Organization Address [facility] [place] [address] * Anaerobic Culture (02/21/2025 3:14 PM EDT) Culture No growth at day 4 02/28/2025 12:46 PM EDT [facility] Tissue Structure of left knee region / Unknown 02/21/2025 3:14 PM EDT 02/21/2025 4:40 PM EDT Comment:Pre-op diagnosis: Tibial plateau fracture, left, closed, initial encounter [S82.142A] Surgical site infection [T81.49XA] Lawrence Hayes MD LAB MICROBIOLOGY - GENERAL OR DERABLES Final Result Performing Organization Address [facility] Co de Phone Number [facility] [address] [place] [address] * FL Less than 1 Hour Intraoperative (02/21/2025 3:00 PM EDT) Narrative IMAGING - 02/21/2025 5:00 PM EDT Images were obtained for surgical purposes. See Lawrence Hayes's surgical note in the patient's chart for the findings. Lawrence Hayes MD IMG FLUOROSCOPY PROCEDURES Fi nal Result Performing Organization Address [facility] Co de Phone Number IMAGING * (ABNORMAL) Tissue Culture and Gram Stain (02/21/2025 3:00 PM EDT) Culture 2+ Klebsiella pneumoniae(A) JOVANI 02/25/2025 2:52 PM EDT [facility] Comment: This isolate has been identified using the FDA Approved [employer] CA System The organism value for this result has been updated. These results have been appended to the previously preliminary verified report. Edited result: Previously reported as Gram Negative Vick on 02/23/2025 at 0758 EDT. Culture 2+ Corynebacterium amycolatum(A) JOVANI 02/25/2025 2:52 PM EDT [facility] Comment: This isolate has been identified using the FDA Approved [employer] CA System The organism value for this result has been updated. These results have been appended to the previously preliminary verified report. Culture 2+ Eikenella corrodens(A) JOVANI 02/25/2025 2:52 PM EDT [facility] Comment: This isolate has been identified using the FDA Approved [employer] CA System The organism value for this result has been updated. These results have been appended to the previously preliminary verified report. Culture 1+ Haemophilus haemolyticus(A) JOVANI 02/25/2025 2:52 PM EDT [facility] Comment: This isolate has been identified using the FDA Approved [employer] CA System The organism value for this result has been updated. These results have been appended to the previously preliminary verified report. Gram Stain Result Few Polymorphonuclear leukocytes 02/25/2025 2:52 PM EDT [facility] Gram Stain Result No organisms seen 02/25/2025 2:52 PM EDT [facility] Tissue Structure of left [...] Trimethoprim/Sulfa methoxazol e JOVANI <=0.5/9.5 ug/ml: Susceptible us Lawrence Hayes MD LAB MICROBIOLOGY - GENERAL OR DERABLES Final Result [facility] [address] [place] [address] * Anaerobic Culture (02/21/2025 3:00 PM EDT) Pathologist [facility] Culture Mixed aerobic and anaerobic sherley 02/26/2025 8:03 AM EDT [facility] Tissue Structure of left knee region / Unknown 02/21/2025 3:00 PM EDT 02/21/2025 4:41 PM EDT Comment:Pre-op diagnosis: Tibial plateau fracture, left, closed, initial encounter [S82.142A] Surgical site infection [T81.49XA] us Lawrence Hayes MD LAB MICROBIOLOGY - GENERAL OR DERABLES Final Result Performing Organization Address City/[facility]/ZIP Co de Phone Number [address] [address] * (ABNORMAL) POCT glucose meter (02/21/2025 11:50 AM EDT) [facility] POCT Glucose 108(H) 74 - 99 [...] 02/21/2025 11:51 AM EDT [facility] Channel Opener Outsoles ID Harvey Hernandez 02/22/20 11:51 AM EDT HEALTHCARE LAB Device ID [id number] 02/21/2025 11:51 AM EDT [facility] Specimen Type POC Capillary 02/21/2025 11:51 AM EDT [facility]ALTH[facility] Blood Capillary blood specimen / Unknown 02/21/2025 11:50 AM EDT 02/21/2025 11:51 AM EDT us Lawrence Hayes MD LAB POINT OF CARE TE ST DOCKED DEVICE UNSOLICITED RESULTS Final Result Performing Organization Address City/[facility]/ZIP Co de Phone Number HEALTHCARE LAB [address] [place] [address] * Creatine Kinase (CK), Total (02/21/2025 11:43 AM EDT) Pathologist [facility] Creatine Kinase, Plasma 74 49 - 320 U/L 02/21/2025 5:45 PM EDT [facility] Blood Venous blood specimen / Unknown Venipuncture / Unknown 02/21/2025 11:43 AM EDT 02/21/2025 11:57 AM EDT us Stella N Kevin RAMIREZN LAB BLOOD ORDERABLES Final Result [facility] [address] [place] [address] * Type and screen (02/21/2025 11:43 AM EDT) Pathologist [facility] ABO/Rh A Positive 02/21/2025 11:33 AM EDT BLOOD BANK Antibody Screen Negative 02/21/2025 11:33 AM EDT BLOOD BANK Specimen Expiration 02/24/2025 23:59 02/21/2025 11:33 AM EDT BLOOD BANK Blood Venous blood specimen / Unknown Venipuncture / Unknown 02/21/2025 11:43 AM EDT 02/21/2025 11:54 AM EDT us Stella N Kevin RAMIREZN LAB BLOOD BANK TEST ORDERA BLES Final Result Performing Organization Address [facility]/ZIP Co de Phone Number BLOOD BANK [address] [place] [address], * Protime-INR (02/21/2025 11:43 AM EDT) Pathologist [facility] Prothrombin Time 13.6 12.0 - 14.3 sec LAB COAGULATION METHOD 02/21/2025 12:35 PM EDT [facility] INR 1.0 0.9 - 1.1 LAB COAGULATION METHOD 02/21/2025 12:35 PM EDT [facility] Blood Venous blood specimen / Unknown Venipuncture / Unknown 02/21/2025 11:43 AM EDT 02/21/2025 11:57 AM EDT Narrative [facility] - 02/21/2025 12:35 PM [...] recurrent ND INR 2.5 to 3.5 us Stella Aishwarya CarnesBrown [employer] LAB BLOOD ORDERABLES Final Result [facility] [address] [place] [address] * (ABNORMAL) Basic Metabolic Panel, Plasma (02/21/2025 11:43 AM EDT) Glucose, Plasma 101(H) 74 - 99 mg/dL 02/21/2025 12:29 PM EDT [facility] BUN, Plasma 12 7 - 21 mg/dL 02/21/2025 12:29 PM EDT [facility] Creatinine, Plasma 0.79 0.70 - 1.20 mg/dL 02/21/2025 12:29 PM EDT [facility] BUN/Creatinine Ratio 15 02/21/2025 12:29 PM EDT [facility] Sodium, Plasma 138 136 - 145 mmol/L 02/21/2025 12:29 PM EDT [facility] Potassium, Plasma 4.2 3.6 - 4.9 mmol/L 02/21/2025 12:29 PM EDT [facility] Chloride, Plasma 102 97 - 107 mmol/L 02/21/2025 12:29 PM EDT [facility] CO2, Plasma 23 22 - 29 mmol/L 02/21/2025 12:29 PM EDT [facility] Anion Gap 13 6 - 16 mmol/L 02/21/2025 12:29 PM EDT [facility] Total Calcium, Plasma 9.3 8.9 - 10.2 mg/dL 02/21/2025 12:29 PM EDT [facility] eGFRcr 118.8 mL/min/1.7 3m*2 02/21/2025 12:29 PM EDT [facility] Comment:Reported eGFRcr in m L/min/1.73m2 is based the CKD-EPI 2020 equation that does not use a race coefficient. Blood Venous blood specimen / Unknown Venipuncture / Unknown 02/21/2025 11:43 AM EDT 02/21/2025 11:57 AM EDT us Stella N Kevin [employer] LAB BLOOD ORDERABLES Final Result [facility] [address] [place] [address] * (ABNORMAL) CBC and Differential (02/21/2025 11:43 AM EDT) WBC Count 9.14 3.70 - 10.30 10*3/uL LAB HEMATOLOGY METHOD 02/21/2025 12:09 PM EDT [facility] RBC Count 4.18(L) 4.60 - 6.10 10*6/uL LAB HEMATOLOGY METHOD 02/21/2025 12:09 PM EDT [facility] HGB 12.6(L) 13.7 - 17.5 g/dL LAB HEMATOLOGY METHOD 02/21/2025 12:09 PM EDT [facility] HCT 37.8(L) 40.0 - 51.0 % LAB HEMATOLOGY METHOD 02/21/2025 12:09 PM EDT [facility] Platelet Count 298 155 - 369 10*3/uL LAB HEMATOLOGY METHOD 02/21/2025 12:09 PM EDT [facility] MCV 90 79 - 98 fL LAB HEMATOLOGY METHOD 02/21/2025 12:09 PM EDT [facility] MCH 30.1 26.0 - 32.0 pg LAB HEMATOLOGY METHOD 02/21/2025 12:09 PM EDT [facility] MCHC 33.3 30.7 - 35.5 g/dL LAB HEMATOLOGY METHOD 02/21/2025 12:09 PM EDT [facility] RDW 13.2 11.5 - 14.5 % LAB HEMATOLOGY METHOD 02/21/2025 12:09 PM EDT [facility] MPV 9.5 8.8 - 12.5 fL LAB HEMATOLOGY METHOD 02/21/2025 12:09 PM EDT [facility] nRBC 0.0 <=0.0 per 100 WBCs LAB HEMATOLOGY METHOD 02/21/2025 12:09 PM EDT [facility] Differential Type Automated LAB HEMATOLOGY METHOD 02/21/2025 12:09 PM EDT [facility] Neutrophils % 60 % LAB HEMATOLOGY METHOD 02/21/2025 12:09 PM EDT [facility] Lymphocytes % 31 % LAB HEMATOLOGY METHOD 02/21/2025 12:09 PM EDT [facility] Monocytes % 7 % LAB HEMATOLOGY METHOD 02/21/2025 12:09 PM EDT [facility] Eosinophils % 2 % LAB HEMATOLOGY METHOD 02/21/2025 12:09 PM EDT [facility] Basophils % 0 % LAB HEMATOLOGY METHOD 02/21/2025 12:09 PM EDT [facility] Immature Granulocytes % 0 % LAB HEMATOLOGY METHOD 02/21/2025 12:09 PM EDT [facility] Neutrophils Absolute 5.37 1.60 - 6.10 10*3/uL LAB HEMATOLOGY METHOD 02/21/2025 12:09 PM EDT [facility] Lymphocytes Absolute 2.86 1.20 - 3.90 10*3/uL LAB HEMATOLOGY METHOD 02/21/2025 12:09 PM EDT [facility] Monocytes Absolute 0.65 0.30 - 0.90 10*3/uL LAB HEMATOLOGY METHOD 02/21/2025 12:09 PM EDT [facility] Eosinophils Absolute 0.18 0.00 - 0.50 10*3/uL LAB HEMATOLOGY METHOD 02/21/2025 12:09 PM EDT [facility] Basophils Absolute 0.04 0.00 - 0.10 10*3/uL LAB HEMATOLOGY METHOD 02/21/2025 12:09 PM EDT [facility] Immature Granulocytes Absolute 0.04 0.00 - 0.06 10*3/uL LAB HEMATOLOGY METHOD 02/21/2025 12:09 PM EDT [facility] Blood Venous blood specimen / Unknown Venipuncture / Unknown 02/21/2025 11:43 AM EDT 02/21/2025 11:59 AM EDT [facility] - 02/21/2025 12:09 PM EDT Therapeutic decision making should be based on absolute values, rather than percentages. Stella Brown [employer] LAB BLOOD ORDERABLES Final Result [facility] [address] [place] [address] documented in this encounter Visit Diagnoses Diagnosis [...] PRN, Starting on Mon02/21/25 at 1637, Until Mon02/22/25 at 0750, Routine, Recovery(Phase II-Outpatient)/On Unit(Inpatient), muscle [...] (New Bag - Provider: Shelley Rodas RN) 2056 (New Bag - Provider: Shelley Rodas RN) 2100 (Canceled Entry - Provider: Automatic Discharge Provider - Comment: Automatically canceled at discontinue of medication order) enoxaparin (Lovenox) syringe 40 mg 40 mg, Subcutaneous, 2 times daily, First dose on Mon02/22/25 at 1000, Until Discontinued, Routine 1100 (Given - Provider: Radha Corona RN)2029 (Given - Provider: Shelley Rodas RN) 0951 (Given - Provider: Cosmo Traylor RN)2056 (Given - Provider: Shelley Rodas RN) 0829 [...] Rodas RN) 0951 (Given - Provider: Cosmo Traylro RN)2100 (Given - Provider: Shelley Rodas RN) [...] Corona RN)2235 (New Bag - Provider: Shelley Rodas, RN) 0526 (New Bag - Provider: Shelley [...] of medication order) PRN Medication Order 02/22/2025 02/23/202502/24/2025 ondansetron ODT (Zofran-ODT) disintegrating tablet 4 mg 4 mg, Oral, Every 6 hours PRN, Starting on Mon02/21/25 at 1638, Until 02/24/25 at 2202, Routine, Recovery(Phase II-Outpatient)/On Unit(Inpatient), nausea, [...] Radha Corona RN)2127 (Given - Provider: Shelley Rodas RN) oxyCODONE (Roxicodone) immediate release tablet 5 mg(Linked Group 2) 5 mg, Oral, Every 4 hours PRN, Starting on Mon02/23/25 at 0437, Until Mon02/24/25 at 0436, Routine, Recovery(Phase II-Outpatient)/On Unit(Inpatient), moderate pain 0745 (Given - Provider: Cosmo Traylor RN)2057 (Given - Provider: Shelley Rodas RN) oxyCODONE (Roxicodone) [...] Oral, Every 6 hours PRN, Starting on 02/24/25 at 0437, Until 02/24/25 at 2202, Routine, [...] documented as of this encounter Care Teams Material Control Clerk Relationship Specialty Start Date End Date Blaine Nava MD [address] [place] [address] #1 #1 JOHN Miller [id number] PCP - General 02/17/25 documented as of this encounter
--- OUTSIDE RECORDS SUMMARY | 2025-02-21 12:00 | XMS_ITS | Encounter Summary ---
Author Organization Healthcare Address [address] [place] [address] Care Team Providers Care Equipment Service Engineer Name Role Phone Blaine Nava MD Primary Care Provider [phone] Reason for Visit * Auth/Cert (Routine) Specialty Diagnoses / Procedures Referred By Adalid t Referred To Contact Diagnoses Tibial plateau fracture, left, closed, initial encounter Surgical site infection Tibial plateau fracture, left, closed, initial encounter [S82.142A] Surgical site infection [T81.49XA] Procedures ME DRAIN LOWER LEG DEEP ABSC/HEMATOMA INCISION AND DRAINAGE, LOWER EXTREMITY Lawrence Hayes MD [address] [address] Phone: tel: fax: [facility] [address] [place] [address] Phone: tel: Referral ID Status Reason Start Date Expiration Date Visits Re quested Visits Authorized [id number] 1 1 Encounter Details Date Type Department Care Team (Late st Contact Info) Description 02/21/2025 12:00 PM EDT - 02/21/2025 1:30 PM EDT Surgery [facility] [address] [place] [address] Lawrence Hayes MD [address] [address] INCISION AND DRAINAGE, LOWER EXTREMITY & removal of hardware - placement of ABX beads [35995 (CPT )] Surgery Details Date/Time Status Location [...] drink first t traci in the morning (EYE-TENNIS INSTRUCTOR) to steady your nerves or to get [...] note were not included. 798 Narcan Nasal [place]: Rescue Guide for Opioid Overdose Step 1 [...] controlled substances: ?? Drug Enforcement Agency (EDMUNDO): http://www.deadiversion.Filter Foundryoj.gov/drug_disposal/takeback/index.htm ?? National Association of Drug Diversion Investigators (NADDI): http://rxdrugdropbox.org/ ?? [place] Office of Drug Control Policy: http://odcp.ky.gov/Prescription+Drug+Drop+Box+Sites.htm Are [...] that tracks prescriptions of controlled substances in [place]. The TIFFANY report tells your doctor if [...] or your doctor may then call the [place] Drug Enforcement and Professional Practices Branch at .This will start an investigation of the error. * Adrienne Perez - 02/24/2025 4:03 PM EDT Images from the original note were not included. [id number] * Adrienne Perez - 02/24/2025 4:03 PM [...] your house or a medical facility. The patient case coordinator/medical social consultant will setthat up based on your insurance. [...] or during weekends/ holidays, call the paging cement grinding mill operator at . Ask forthe infectious disease fellow trains service conductor. Call the clinic if you have any of these: ?? Fevers greater than 100.5??F ?? An allergic reaction, such as rash ?? Nausea, vomiting, or diarrhea ?? New or returning redness near the IV line ?? Redness, pain, swelling, or pus around the IV line * [facility] Adrienne Inman - 02/24/2025 4:03 PM [...] of your leg. This is also called ?Iouwrq-wa-Dux Weight Bearing,? ?Toe-Touch Weight Bearing,? or ?Foot-Flat [...] thoroughly. Use soap and water or hand foster care therapist and wear gloves before touching the PICC [...] them before you flush the line or machining and assembly supervisor fluids or medicines. Avoid hard physical [...] infection, call your doctor rightaway. * Rosaura [facility] - Adrienne Inman - 02/24/2025 4:02 PM EDT Images from the original note were not included. 79303 Preventing a Surgical Site Infection A risk [...] of infection. ?? Controlled body temperature. A ochmu-pvgt-veloqv temperature during or after surgery prevents oxygen [...] and water or with an alcohol-based hand foster care therapist before and after caring for you. Don?t [...] away. Last Reviewed Date: 2024 00:00:00 ?? [id number] The [employer]. All rights reserved. This information is not intended as a substitute for professional medical care. Always follow your healthcare professional's instructions. * Discharge Summary - Sushil Lea MD - 02/24/2025 3:48 PM EDT Hospitalization Admit Date/Time: 02/21/2025 9:35 AM Admitting Attending: Lawrence Hayes Discharge Date: 02/24/2025 Discharge Attending Physician: Lawrence Hayes MD PCP name and Address: Blaine Nava MD [address] [place], [place] [address] #1 / [facility] [address] Referring provider name and address: No referring [...] medications were sent to [facility] [address], [facility] [address] cefTRIAXone 1 g reconstituted solution DAPTOmycin injection [...] Department Center 2025 7:50 AM Stella Brown, DEVULCANIZER LOADER [facility] 2025 10:30 AM Santiago Escalante MD IDBCCLX Purchase 03/27/2025 9:30 AM Santiago Escalante MD IDBCCLX [...] discharge. Sushil Lea MD Orthopaedic Surgery PGY-1 [facility] Orthopaedic Trauma Service Pager: [phone] Orthopaedic Recon/Spine/Foot and Ankle Service Pager: [phone] Personal Pager: [phone] Cosigned by Lawrence Hayes MD at 02/26/2025 [...] WEEK 5 FOLLOWUP: 03/27/2025, 0930AM at [address] [facility] [address] (Select Option 3 for IV Antibiotic / PICC line related issues) All questions regarding outpatient parenteral antimicrobials after discharge should be directed to the OPAT nurse navigator at (Select Option 3 for IV Antibiotics/PICC Issues) between 8am-5pm. After 5 pm, or during weekends/ holidays, please call the paging cement grinding mill operator at to reach the on-call ID fellow. PLEASE NOTIFY THE ID CONSULTING SERVICE OF ANY QUESTIONS REGARDING THESE RECOMMENDATIONS OR WITH ANY ANTIMICROBIAL CHANGES THAT OCCUR AFTER THE DATE/TIME OF THIS OPAT INTAKE NOTE. * Progress Notes - Anna Elam RN - 02/24/2025 11:03 AM EDT Case Management Adult Initial Progress Note Panda Machado 34 y.o. male CSN: [id number] Admission: 02/21/2025 9:35 AM Primary Problem: Surgical site infection Multi Needle Machine Operator reviewed chart and spoke with patient to complete this Initial Case Management Assessment. PCP: Blaine Nava MD Emergency Contact: Extended Emergency Contact Information Primary Emergency Contact: Hayley Buenrostro Address: [address] [place] [address] Mobile Relation: Significant Other Preferred language: [employer] Supply Specialist needed? No Secondary Emergency Contact: Jenny Buenrostro Address: [address] [place] [address] Mobile Relation: Mother Insurance: Primary Visit Coverage Payer Plan Sponsor Code Group Number Group Name [employer] MEDICAID VELAZQUEZ PAS[employer]ORT VELAZQUEZ MEDICAID Primary Visit Coverage Subscriber Subscriber ID Subscriber Name Subscriber SSN Subscriber Address [id number] PANDA MACHADO [id number] [place] [address] Patient information: Primary Caregiver: Self Support System: Immediate family Daily Living Activities: Functional Status: Independent Living Arrangements: Spouse/Significant other, Children Type of Residence: Private residence, Single Level [address] [place] [address] Angela LOPEZ [id number] Smoker in the Home?: Yes Current DME: [...] DME Provider: Rajesh Living Will/Advance Directive/Power of Tripe Cooker /Guardian: Unable to assess: No Have you [...] today. Pt [facility] dressing [facility] and labs and was agreeable to continue receiving care there. CM will send orders when they are available. Pt stated he lives with his and two children. His can provide assistance and transportation. Pt is unemployed and meets 300% FPG. CM will continue to assist with discharge POC. [facility] Ldzqu-[phone] Update: Final ID recs have been placed and standard OPAT approved. Rajesh will complete teaching and deliver ABX to bedside around 5 PM today. Orders were faxed to [facility]. Infusion center will call pt [...] 10 mg/kg (Adjusted), Intravenous, q24h, Stella Brown, DEVULCANIZER LOADER, Last Rate: 264 mL/hr at 02/23/252056, 1,100 [...] tibial plateau fluid (op cx?) - NCC 40197 (PMN 98%); RBC 240K. GS - GPC. [...] LEFT lower leg. [facility] suffered closed LEFT femoral shaft [...] Tobacco: Active smoker ETOH: Denies DRUG ALLERGIES: [place] RECOMMENDATIONS: Re: chronic LEFT tibial SSI, implant [...] abx therapy. For now, while inpatient at [facility] Daptomycin 8-10mg/kg IV q24h as [...] appointment in order to complete registration paperwork.) [facility] (In[facility]) [address] [place] [address] FOREIGN FOOD COOK SPECIALTY: . FAX: ID Bone and Joint Consult [...] -- Annamaria Romero MD Orthopaedic Surgery PGY-1 [facility] Orthopaedic Trauma Service Pager: [phone] Orthopaedic Recon/Spine/Foot and Ankle Service Pager: [phone] Cosigned by Lawrence Hayes MD at 02/26/2025 [...] required Carolin Payan MD Orthopedic Surgery PGY-1 [facility] Cosigned by Lawrence Hayes MD at [...] session. 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 Prior Level of Function Receives Help From: No assist required prior to admission Level of Mobility: Ambulatory- community Mobility [place]: Independent gait without device History of Falls: [...] Mobility Exam: Supine to Sit Level of [place]: Stand-by assist Physical/Nonphysical Assist: Verbal Cues Bed Mobility Exam: Sit to Supine Level of [place]: Stand-by assist Physical/Nonphysical Assist: Verbal Cues Transfers Transfer Interventions: Pt completed a sit to stand transfer with SBA and min cues for safety and maintaing NWB of LLE with good carry over. For stand to sit cues provided for reaching back for surface, extending LLE and eccentric control wtih good carry over. Transfer Exam: Sit to stand Level of [place]: Stand-by assist Physical/Nonphysical Assist: Verbal Cues Assistive Device: Walker, rolling Transfer Exam: Stand to Sit Level of [place]: Stand-by assist Physical/Nonphysical Assist: Verbal Cues Assistive [...] uses. Standardized Assessments Standardized Assessments Standardized Assessments: [facility] 6-Clicks Mobility Assessment [facility] 6-Clicks Mobility Assessment Difficulty patient has [...] 3-5 steps with a railing?: A little [facility] 6-Clicks Mobility Assessment Total : 18 [...] a.m. 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 Prior Level of Function Receives Help From: No assist required prior to admission Level of Mobility: Ambulatory- community Mobility [place]: Independent gait without device History of Falls: [...] Mobility Bed Mobility Exam: Scooting/Bridging Level of [place]: Stand-by assist Physical/Nonphysical Assist: Verbal Cues Bed Mobility Exam: Supine to Sit Level of [place]: Stand-by assist Physical/Nonphysical Assist: Verbal Cues Bed Mobility Exam: Sit to Supine Level of [place]: Stand-by assist Physical/Nonphysical Assist: Verbal Cues Transfers Transfer Exam: Sit to stand Level of [place]: Stand-by assist Physical/Nonphysical Assist: Verbal Cues Assistive Device: Walker, rolling Transfer Exam: Stand to Sit Level of [place]: Stand-by assist Physical/Nonphysical Assist: Verbal Cues Assistive [...] Edited by: García Shepherd MD at 02/21/2025 4880 - Pain control: MMPC - Diet: regular [...] required Carolin Payan MD Orthopedic Surgery PGY-1 [facility] Cosigned by Lawrence Hayes MD at [...] Escalante MD Consult ordered by: Stella Brown, DEVULCANIZER LOADER Reason for consult: L tibial plateau ORIF [...] Tobacco: Active smoker ETOH: Denies DRUG ALLERGIES: [place] ALLERGIES: NKDA. MEDS: ABX: Daptomycin 02/21/2025 - [...] mL, 10 mL, Intravenous, PRN, Stella Brown, DEVULCANIZER LOADER SOCIAL HISTORY: As above. Otherwise reviewed and [...] tibial plateau fluid (op cx?) - NCC 53280 (PMN 98%); RBC 240K. GS - GPC. [...] I&D of L knee; implants retained; no rodnye purulence; cx NGTD. [facility] ID saw pt [...] Tobacco: Active smoker ETOH: Denies DRUG ALLERGIES: [place] RECOMMENDATIONS: Re: chronic LEFT tibial SSI, implant [...] abx therapy. For now, while inpatient at [facility], pending the above: Continue empiric, [...] PM EDT Operative Note Date: 02/21/25 Location: [facility] OR Name: Panda Machado, : 1990, Diagnoses: [...] for all parts of the procedure Director Of Marketing(s): * García Shepherd MD - Resident - [...] No. SYNTHECURE SYNTHETIC CALCIUM SULFATE 10CC - [id number] Implanted Specimen: Specimens ID Source Frozen? A [...] also visualized and removed with a needle team cdl driver. Cultures from the lateral wound were [...] Travel History: none Immunizations Not reviewed Allergies [place] Medications Current Medications[1] Objective Review of Systems [...] 98%. Results Review {Vanishing Link Review Results :[id number] I have reviewed the latest lab and [...] Date INCISION AND DRAINAGE, LEG Left 01/20/2025 ([facility]) INCISION AND DRAINAGE, LOWER EXTREMITY (Left: Leg Lower) KNEE SURGERY Left 01/18/2025 ([facility]) INCISION AND DRAINAGE, LOWER EXTREMITY (Left: Leg Lower) LEG SURGERY Left ERIKA NAIL IM RODDING Left 09/10/2024 ([facility]) INSERTION, INTRAMEDULLARY VICK, FEMUR (Left: Leg Upper) ORIF TIBIA FRACTURE Left 09/15/2023 ([facility]) ORIF, FRACTURE, TIBIA, PLATEAU (Left: Leg Lower) ORIF TIBIAL PLATEU FRACTURE Left 01/01/2025 ([facility]) ORIF, FRACTURE, TIBIA, PLATEAU (Left: Knee) ORTHOPEDIC SURGERY 09/06/2022 Had 4 other similar surgeries [1] Allergies Allergen Reactions [place] Hives [1] No current facility-administered medications for [...] card, photo ID, along with power of pr specialist, guardianship or advanced directives if applicable Do [...] Description 03/27/2025 9:30 AM EDT Office Visit [facility] [address] [place] [address] Santiago Escalante MD [address] [facility] [address] [place] [address] 04/07/2025 10:45 AM EDT Appointment [facility] Radiology [address] [place] [address] 04/07/2025 11:20 AM EDT Office Visit [facility] Orthopaedic Surgery & Sports Medicine [address] [place] [address] Lawrence Hayes MD [address] [place] [address] Pending Results Name Type Priority [...] left, closed, initial encounter Surgical site infection ME DRAIN LOWER LEG DEEP ABSC/HEMATOMA 02/21/2025 2:09 [...] - 99 mg/dL 02/24/2025 7:37 AM EDT [facility] BUN, Plasma 16 7 - 21 mg/dL 02/24/2025 7:37 AM EDT [facility] Creatinine, Plasma 0.89 0.70 - 1.20 mg/dL 02/24/2025 7:37 AM EDT [facility] BUN/Creatinine Ratio 18 02/24/2025 7:37 AM EDT [facility] Sodium, Plasma 137 136 - 145 mmol/L 02/24/2025 7:37 AM EDT [facility] Potassium, Plasma 4.6 3.6 - 4.9 mmol/L 02/24/2025 7:37 AM EDT [facility] Chloride, Plasma 101 97 - 107 mmol/L 02/24/2025 7:37 AM EDT [facility] CO2, Plasma 26 22 - 29 mmol/L 02/24/2025 7:37 AM EDT [facility] Anion Gap 10 6 - 16 mmol/L 02/24/2025 7:37 AM EDT [facility] Total Calcium, Plasma 9.2 8.9 - 10.2 mg/dL 02/24/2025 7:37 AM EDT [facility] eGFRcr 114.6 mL/min/1.7 3m*2 02/24/2025 7:37 AM EDT [facility] Comment:Reported eGFRcr in m L/min/1.73m2 is based the CKD-EPI 2020 equation that does not use a race coefficient. Blood Venous blood specimen / Unknown Venipuncture / Unknown 02/24/2025 7:04 AM EDT 02/24/2025 7:10 AM EDT us Lawrence Hayes MD LAB BLOOD ORDERABLES Final Re sult [facility] [address] [place] [address] * (ABNORMAL) Basic metabolic panel (02/22/2025 2:24 AM EDT) Glucose, Plasma 150(H) 74 - 99 mg/dL 02/22/2025 2:56 AM EDT [facility] BUN, Plasma 20 7 - 21 mg/dL 02/22/2025 2:56 AM EDT [facility] Creatinine, Plasma 0.98 0.70 - 1.20 mg/dL 02/22/2025 2:56 AM EDT [facility] BUN/Creatinine Ratio 20 02/22/2025 2:56 AM EDT [facility] Sodium, Plasma 138 136 - 145 mmol/L 02/22/2025 2:56 AM EDT [facility] Potassium, Plasma 5.2(H) 3.6 - 4.9 mmol/L 02/22/2025 2:56 AM EDT [facility] Chloride, Plasma 101 97 - 107 mmol/L 02/22/2025 2:56 AM EDT [facility] CO2, Plasma 25 22 - 29 mmol/L 02/22/2025 2:56 AM EDT [facility] Anion Gap 12 6 - 16 mmol/L 02/22/2025 2:56 AM EDT [facility] Total Calcium, Plasma 9.2 8.9 - 10.2 mg/dL 02/22/2025 2:56 AM EDT [facility] eGFRcr 103.1 mL/min/1.7 3m*2 02/22/2025 2:56 AM EDT [facility] Comment:Reported eGFRcr in m L/min/1.73m2 is based the CKD-EPI 2020 equation that does not use a race coefficient. Blood Venous blood specimen / Unknown Venipuncture / Unknown 02/22/2025 2:24 AM EDT 02/22/2025 2:28 AM EDT us Lawrence Hayes MD LAB BLOOD ORDERABLES Final Re sult [facility] [address] [place] [address] * (ABNORMAL) CBC (02/22/2025 2:24 AM EDT) WBC Count 10.82(H) 3.70 - 10.30 10*3/uL LAB HEMATOLOGY METHOD 02/22/2025 2:36 AM EDT [facility] RBC Count 3.92(L) 4.60 - 6.10 10*6/uL LAB HEMATOLOGY METHOD 02/22/2025 2:36 AM EDT [facility] HGB 11.9(L) 13.7 - 17.5 g/dL LAB HEMATOLOGY METHOD 02/22/2025 2:36 AM EDT [facility] HCT 35.5(L) 40.0 - 51.0 % LAB HEMATOLOGY METHOD 02/22/2025 2:36 AM EDT [facility] Platelet Count 296 155 - 369 10*3/uL LAB HEMATOLOGY METHOD 02/22/2025 2:36 AM EDT [facility] MCV 91 79 - 98 fL LAB HEMATOLOGY METHOD 02/22/2025 2:36 AM EDT [facility] MCH 30.4 26.0 - 32.0 pg LAB HEMATOLOGY METHOD 02/22/2025 2:36 AM EDT [facility] MCHC 33.5 30.7 - 35.5 g/dL LAB HEMATOLOGY METHOD 02/22/2025 2:36 AM EDT [facility] RDW 12.9 11.5 - 14.5 % LAB HEMATOLOGY METHOD 02/22/2025 2:36 AM EDT [facility] MPV 9.6 8.8 - 12.5 fL LAB HEMATOLOGY METHOD 02/22/2025 2:36 AM EDT [facility] nRBC 0.0 <=0.0 per 100 WBCs LAB HEMATOLOGY METHOD 02/22/2025 2:36 AM EDT [facility] Blood Venous blood specimen / Unknown Venipuncture / Unknown 02/22/2025 2:24 AM EDT 02/22/2025 2:28 AM EDT us Lawrence Hayes MD LAB BLOOD ORDERABLES Final Re sult [facility] [address] [place] [address] * Multi Drug Resistance Test (02/21/2025 6:24 PM EDT) Culture No growth at day 1 02/22/2025 8:30 PM EDT [facility] Swab (Nares and Janeth Rectal) Non-blood Collection / Unknown 02/21/2025 6:24 PM EDT 02/21/2025 6:56 PM EDT Narrative [facility] - 02/22/2025 8:30 PM EDT This test was developed and its performance characteristics determined by the [facility]. Although the media is FDA-approved, it is not FDA-approved for all specimen types submitted. The FDA has determined that such clearance or approval is not necessary. This test is used for surveillance purposes. It should not be regarded as investigational or for research. The [facility] is certified under the Clinical Laboratory Improvement Amendments of 1988 (CLIA-88) as qualified to perform high complexity clinical laboratory testing. us Lawrence Hayes MD LAB MICROBIOLOGY - GENERAL OR DERABLES Final Result Performing Organization Address [facility] de Phone Number [facility] [address] [place] [address] * Tissue Culture and Gram Stain (02/21/2025 3:14 PM EDT) Culture No growth at day 4 2024 2:36 PM EDT [facility] Gram Stain Result Rare Polymorphonuclear leukocytes 02/25/2025 2:36 PM EDT [facility] Gram Stain Result No organisms seen 02/25/2025 2:36 PM EDT [facility] Tissue Structure of left knee region / Unknown 02/21/2025 3:14 PM EDT 02/21/2025 4:40 PM EDT Comment:Pre-op diagnosis: Tibial plateau fracture, left, closed, initial encounter [S82.142A] Surgical site infection [T81.49XA] us Lawrence Hayes MD LAB MICROBIOLOGY - GENERAL OR DERABLES Final Result Performing Organization Address [facility] de Phone Number [facility] [address] [place] [address] * Anaerobic Culture (02/21/2025 3:14 PM EDT) Culture No growth at day 4 02/28/2025 12:46 PM EDT [facility] Tissue Structure of left knee region / Unknown 02/21/2025 3:14 PM EDT 02/21/2025 4:40 PM EDT Comment:Pre-op diagnosis: Tibial plateau fracture, left, closed, initial encounter [S82.142A] Surgical site infection [T81.49XA] Lawrence Hayes MD LAB MICROBIOLOGY - GENERAL OR DERABLES Final Result Performing Organization Address [facility] de Phone Number [facility] [address] [place] [address] * FL Less than 1 Hour Intraoperative (02/21/2025 3:00 PM EDT) Narrative IMAGING - 02/21/2025 5:00 PM EDT Images were obtained for surgical purposes. See Lawrence Hayes's surgical note in the patient's chart for the findings. us Lawrence Hayes MD IMG FLUOROSCOPY PROCEDURES Fi nal Result Performing Organization Address [facility] de Phone Number IMAGING * (ABNORMAL) Tissue Culture and Gram Stain (02/21/2025 3:00 PM EDT) Culture 2+ Klebsiella pneumoniae(A) JOVANI 02/25/2025 2:52 PM EDT [facility] Comment: This isolate has been identified using the FDA Approved [employer] System The organism value for this result has been updated. These results have been appended to the previously preliminary verified report. Edited result: Previously reported as Gram Negative Vick on 02/23/2025 at 0758 EDT. Culture 2+ Corynebacterium amycolatum(A) JOVANI 02/25/2025 2:52 PM EDT [facility] Comment: This isolate has been identified using the FDA Approved [employer] [place] System The organism value for this result has been updated. These results have been appended to the previously preliminary verified report. Culture 2+ Eikenella corrodens(A) JOVANI 02/25/2025 2:52 PM EDT [facility] Comment: This isolate has been identified using the FDA Approved [employer] System The organism value for this result has been updated. These results have been appended to the previously preliminary verified report. Culture 1+ Haemophilus haemolyticus(A) JOVANI 02/25/2025 2:52 PM EDT [facility] Comment: This isolate has been identified using the FDA Approved [employer] [place] System The organism value for this result has been updated. These results have been appended to the previously preliminary verified report. Gram Stain Result Few Polymorphonuclear leukocytes 02/25/2025 2:52 PM EDT [facility] Gram Stain Result No organisms seen 02/25/2025 2:52 PM EDT [facility] Tissue Structure of left [...] Final Result Performing Organization Address [facility] Co de Phone Number [facility] [address] [place] [address] * Anaerobic Culture (02/21/2025 3:00 PM EDT) [facility] Culture Mixed aerobic and anaerobic sherley 02/26/2025 8:03 AM EDT [facility] Tissue Structure of left knee region / Unknown 02/21/2025 3:00 PM EDT 02/21/2025 4:41 PM EDT Comment:Pre-op diagnosis: Tibial plateau fracture, left, closed, initial encounter [S82.142A] Surgical site infection [T81.49XA] Lawrence Hayes MD LAB MICROBIOLOGY - GENERAL OR DERABLES Final Result Performing Organization Address [facility] de Phone Number [facility] [address] [place] [address] * (ABNORMAL) POCT glucose meter (02/21/2025 11:50 AM EDT) [facility] POCT Glucose 108(H) 74 - 99 [...] 02/21/2025 11:51 AM EDT [facility] Certified Mortician ID Harvey Hernandez 02/22/20 11:51 AM EDT [facility]ALTHCARE LAB Device ID [id number] 02/21/2025 11:51 AM EDT [facility]ALTH[facility] LAB Specimen Type POC Capillary 02/21/2025 11:51 AM EDT [facility] Blood Capillary blood specimen / Unknown 02/21/2025 11:50 AM EDT 02/21/2025 11:51 AM EDT us Lawrence Hayes MD LAB POINT OF CARE TE ST DOCKED DEVICE UNSOLICITED RESULTS Final Result [facility] [address] [place] [address] * Creatine Kinase (CK), Total (02/21/2025 11:43 AM EDT) Creatine Kinase, Plasma 74 49 - 320 U/L 02/21/2025 5:45 PM EDT [facility] Blood Venous blood specimen / Unknown Venipuncture / Unknown 02/21/2025 11:43 AM EDT 02/21/2025 11:57 AM EDT us Stella Brown APRN LAB BLOOD ORDERABLES Final Result Performing Organization Address [facility] Co de Phone Number [facility] [address] [place] [address] * Type and screen (02/21/2025 11:43 AM [...] ORDERA BLES Final Result Performing Organization Address [facility] Co de Phone Number BLOOD BANK [address] [place] [address], * Protime-INR (02/21/2025 11:43 AM EDT) Prothrombin Time 13.6 12.0 - 14.3 sec LAB COAGULATION METHOD 02/21/2025 12:35 PM EDT [facility] INR 1.0 0.9 - 1.1 LAB COAGULATION METHOD 02/21/2025 12:35 PM EDT [facility] Blood Venous blood specimen / Unknown Venipuncture / Unknown 02/21/2025 11:43 AM EDT 02/21/2025 11:57 AM EDT Narrative [facility] - 02/21/2025 12:35 PM EDT [...] recurrent IN INR 2.5 to 3.5 us Stella Brown DEVULCANIZER LOADER LAB BLOOD ORDERABLES Final Result [facility] [address] [place] [address] * (ABNORMAL) Basic Metabolic Panel, Plasma (02/21/2025 11:43 AM EDT) Glucose, Plasma 101(H) 74 - 99 mg/dL 02/21/2025 12:29 PM EDT [facility] BUN, Plasma 12 7 - 21 mg/dL 02/21/2025 12:29 PM EDT [facility] Creatinine, Plasma 0.79 0.70 - 1.20 mg/dL 02/21/2025 12:29 PM EDT [facility] BUN/Creatinine Ratio 15 02/21/2025 12:29 PM EDT [facility] Sodium, Plasma 138 136 - 145 mmol/L 02/21/2025 12:29 PM EDT [facility] Potassium, Plasma 4.2 3.6 - 4.9 mmol/L 02/21/2025 12:29 PM EDT [facility] Chloride, Plasma 102 97 - 107 mmol/L 02/21/2025 12:29 PM EDT [facility] CO2, Plasma 23 22 - 29 mmol/L 02/21/2025 12:29 PM EDT [facility] Anion Gap 13 6 - 16 mmol/L 02/21/2025 12:29 PM EDT [facility] Total Calcium, Plasma 9.3 8.9 - 10.2 mg/dL 02/21/2025 12:29 PM EDT [facility] eGFRcr 118.8 mL/min/1.7 3m*2 02/21/2025 12:29 PM EDT [facility] Comment:Reported eGFRcr in m L/min/1.73m2 is based the CKD-EPI 2020 equation that does not use a race coefficient. Blood Venous blood specimen / Unknown Venipuncture / Unknown 02/21/2025 11:43 AM EDT 02/21/2025 11:57 AM EDT us Stella N Kevin MALCOLM LAB BLOOD ORDERABLES Final Result [facility] [address] [place] [address] * (ABNORMAL) CBC and Differential (02/21/2025 11:43 AM EDT) WBC Count 9.14 3.70 - 10.30 10*3/uL LAB HEMATOLOGY METHOD 02/21/2025 12:09 PM EDT [facility] RBC Count 4.18(L) 4.60 - 6.10 10*6/uL LAB HEMATOLOGY METHOD 02/21/2025 12:09 PM EDT [facility] HGB 12.6(L) 13.7 - 17.5 g/dL LAB HEMATOLOGY METHOD 02/21/2025 12:09 PM EDT [facility] HCT 37.8(L) 40.0 - 51.0 % LAB HEMATOLOGY METHOD 02/21/2025 12:09 PM EDT [facility] Platelet Count 298 155 - 369 10*3/uL LAB HEMATOLOGY METHOD 02/21/2025 12:09 PM EDT [facility] MCV 90 79 - 98 fL LAB HEMATOLOGY METHOD 02/21/2025 12:09 PM EDT [facility] MCH 30.1 26.0 - 32.0 pg LAB HEMATOLOGY METHOD 02/21/2025 12:09 PM EDT [facility] MCHC 33.3 30.7 - 35.5 g/dL LAB HEMATOLOGY METHOD 02/21/2025 12:09 PM EDT [facility] RDW 13.2 11.5 - 14.5 % LAB HEMATOLOGY METHOD 02/21/2025 12:09 PM EDT [facility] MPV 9.5 8.8 - 12.5 fL LAB HEMATOLOGY METHOD 02/21/2025 12:09 PM EDT [facility] nRBC 0.0 <=0.0 per 100 WBCs LAB HEMATOLOGY METHOD 02/21/2025 12:09 PM EDT [facility] Differential Type Automated LAB HEMATOLOGY METHOD 02/21/2025 12:09 PM EDT [facility] Neutrophils % 60 % LAB HEMATOLOGY METHOD 02/21/2025 12:09 PM EDT [facility] Lymphocytes % 31 % LAB HEMATOLOGY METHOD 02/21/2025 12:09 PM EDT [facility] Monocytes % 7 % LAB HEMATOLOGY METHOD 02/21/2025 12:09 PM EDT [facility] Eosinophils % 2 % LAB HEMATOLOGY METHOD 02/21/2025 12:09 PM EDT [facility] Basophils % 0 % LAB HEMATOLOGY METHOD 02/21/2025 12:09 PM EDT [facility] Immature Granulocytes % 0 % LAB HEMATOLOGY METHOD 02/21/2025 12:09 PM EDT [facility] Neutrophils Absolute 5.37 1.60 - 6.10 10*3/uL LAB HEMATOLOGY METHOD 02/21/2025 12:09 PM EDT [facility] Lymphocytes Absolute 2.86 1.20 - 3.90 10*3/uL LAB HEMATOLOGY METHOD 02/21/2025 12:09 PM EDT [facility] Monocytes Absolute 0.65 0.30 - 0.90 10*3/uL LAB HEMATOLOGY METHOD 02/21/2025 12:09 PM EDT [facility] Eosinophils Absolute 0.18 0.00 - 0.50 10*3/uL LAB HEMATOLOGY METHOD 02/21/2025 12:09 PM EDT [facility] Basophils Absolute 0.04 0.00 - 0.10 10*3/uL LAB HEMATOLOGY METHOD 02/21/2025 12:09 PM EDT [facility] Immature Granulocytes Absolute 0.04 0.00 - 0.06 10*3/uL LAB HEMATOLOGY METHOD 02/21/2025 12:09 PM EDT [facility] Blood Venous blood specimen / Unknown Venipuncture / Unknown 02/21/2025 11:43 AM EDT 02/21/2025 11:59 AM EDT Narrative [facility] - 02/21/2025 12:09 PM EDT Therapeutic decision making should be based on absolute values, rather than percentages. us Staffordise Aishwarya Brown DEVULCANIZER LOADER LAB BLOOD ORDERABLES Final Result [facility] [address] [place] [address] documented in this encounter Visit Diagnoses Diagnosis [...] Shelley Rodas RN)1107 (Given - Provider: Radha Corona, SHEREEN)1828 (Given - Provider: Radha Corona, SHEREEN)2328 (Not Given - Provider: Shelley Rodas RN - Reason: Patient/family refused) 0526 (Given - Provider: Shelley Rodas RN)1113 (Given - Provider: Cosmo Traylor, SHEREEN)1740 (Given - Provider: Cosmo Traylor RN)2325 (Given - Provider: Shelley Rodas RN) 0505 (Given - Provider: Shelley Rodas RN)1138 (Given - Provider: Cosmo Traylor, SHEREEN)1816 (Given - Provider: Cosmo Traylor, SHEREEN) cefTRIAXone (Rocephin) 2 g in sodium chloride 0.9% 100 mL IVPB (vial adapter required) 2 g, Intravenous, Every 24 hours, First dose (after last modification) on Mon02/24/25 at 1700, Until Discontinued, Routine 1815 (New Bag - Provider: Cosmo Traylor RN) [...] Shelley Rodas RN - Reason: Patient/family refused) 102 (Not Given - Provider: Cosmo Traylor RN [...] documented as of this encounter Care Teams Equipment Service Engineer Relationship Specialty Start Date End Date Blaine Nava MD [address] [place] [address] #1 #1 JOHN Miller [phone] PCP - General 02/17/25 documented as of this encounter
--- OUTSIDE RECORDS SUMMARY | 2025-02-21 14:18 | XMS_ITS | Encounter Summary ---
Author Organization Healthcare Address [address] [place] [address] Care Team Providers Care High [employer] Science Tutor Name Role Phone Blaine Nava MD Primary Care Provider [phone] Reason for Visit * Auth/Cert (Routine) Specialty Diagnoses / Procedures Referred By Adalid t Referred To Contact Diagnoses Tibial plateau fracture, left, closed, initial encounter Surgical site infection Tibial plateau fracture, left, closed, initial encounter [S82.142A] Surgical site infection [T81.49XA] Procedures ME DRAIN LOWER LEG DEEP ABSC/HEMATOMA INCISION AND DRAINAGE, LOWER EXTREMITY Lawrence Hayes MD [address] [place] [address] Phone: tel: fax: [facility] [address] [place] [address] Phone: tel: Referral ID Status Reason Start Date Expiration Date Visits Re quested Visits Authorized [id number] 1 1 Encounter Details Date Type Department Care Team (Late st Contact Info) Description 02/21/2025 2:18 PM EDT Anesthesia Event [facility] [address] [place] [address] Raheem Subramanian, [address] [place] [phone] Anesthesia Record Procedure Summary Procedure Name Responsible Anesthesiologist Anesthesia Start Time Anesthesia Stop Time INCISION AND DRAINAGE, LOWER EXTREMITY & removal of hardware - placement of ABX beads (Left: Leg Lower) Raheem Subramanian Tiffani, 02/21/25 1418 02/21/25 1631 Events Date Time Event Comment 02/21/2025 1130 1418 An Start The patient was reevaluated immediately before sedation and remains eligible for anesthesia plan. 1419 In Room 1419 An Start Data 1423 An Induction The patient was reevaluated immediately before moderate or deep sedation use and before anesthesia induction. 1426 An Intubation 1426 Anesthesia Ready 1450 An Tourn Inflated 1451 Proc Start 1517 An Tourn Deflated 1618 An Extubation 1623 Proc Fin 1624 an stop data 1626 Out of Room 1631 Handoff to Receiving I compl eted my handoff to the receiving clinician during which we: 1. Identified the patient 2. Identified the responsible provider 3. Reviewed the pertinent medical history 4. Discussed the surgical course 5. Reviewed intra-op anesthesia management and issues during anesthesia 6. Set expectations for post-procedure period 7. Allowed opportunity for questions and acknowledgement of understanding. 1631 An Stop Meds Name Total fentaNYL (Sublimaze) injection 50 mcg/mL 200 mcg midazolam (Versed) injection 1 mg/mL 2 m g propofol (Diprivan) injection 10 mg/mL 2 00 mg rocuronium (ZeMuron) injection 10 mg/mL 80 mg lidocaine PF (Xylocaine-MPF) 2% 100 mg dexamethasone (Decadron) injection 4 mg/ mL 8 mg HYDROmorphone PF (Dilaudid) injection 1 mg/mL 1 mg ondansetron (Zofran) injection 2 mg/mL 4 mg sugammadex (Bridion) injection 100 mg/mL 200 mg ceFAZolin (Ancef) injection 3 g 3 g dexmedetomidine (Precedex) injection 100 mcg/mL 32 mcg lactated Ringer's infusion 0 mL * Agents No agents on file. [...] Proximal 01/20/25 1100 by Shell Barney RN PICC Single Lumen Placement Date: 01/12 ; Placement Time: 1900 (created via procedure documentation); Hand Hygiene Completed: Yes; Cath Time Out Checklist Completed: Yes; Size: 4; Description: Single lumen; Length: 52 cm; Orientation: Left; Location: Basilic vein; Site Prep: Chlorhexidine ; Local Anesth: Injectable; Initial Exposed Catheter: 0 cm; Inserted by: Norma Miranda RN; Insertion Attempts: 1; Patient Tolerance: Tolerated well; Placement Verification: ECG tip confirmation 01/21/251900 by Norma Miranda RN Wound 02/21/25; 1537; N; Y es; Surgical; Closed Surgi; Pretibial; Left (Left lower Leg- bilateral) 02/21/25 153 by Stone Broderick RN ETT Placement Date: 02/11 09/07; Placement Time: 1425 (created via procedure documentation); Mask Ventilation: 2; Technique: Video laryngoscopy; Type: ETT - single; Single Lumen Tube Size: 7.5 mm; Cuffed: Yes; Laryngoscope: Anna; Blade Size: 4; Location: Oral; Grade View: Grade I; Insertion Attempts: 1; Placement Verification: Auscultation, Capnometry; Airway Comments: Atraumatic. No change to dentition. ; Placed by: MANUFACTURING ENGINEERING MANAGER; Removal Date: 02/21/25; Removal Time: 16102/21/25 142 by Goran Ty CRNA 02/21/25 1618 by Lei Emery MD documented in this encounter Social History Tobacco [...] and Family Not on file 02/24/2025 Attends Taoism Services Not on file 02/24 Active Member [...] first t traci in the morning (EYE-SENIOR SUPPLIER QUALITY ENGINEER) to steady your nerves or to [...] Rodas RN documented as of this encounter Miscellaneous Notes * Anesthesia Postprocedure Evaluation - Lei Emery MD - 02/21/2025 4:31 PM EDT Patient: Panda Machado Anesthesia Type: general Vitals Value Taken Time BP 137/82 02/21/25 16:31 Temp 36.5 02/21/25 16:31 Pulse 88 02/21/25 16:30 Resp 17 02/21/25 16:30 SpO2 100 % 02/21/25 16:30 Vitals shown include unfiled device data. Anesthesia Post Evaluation Patient location during evaluation: PACU Patient participation: complete - patient participated Level of consciousness: awake Pain management: adequate (pain score 0-3) Airway patency: natural airway Cardiovascular status: acceptable and hemodynamically stable Respiratory status: acceptable, blow-by oxygen, spontaneous ventilation and nonlabored ventilation Hydration status: acceptable Nausea/Vomiting: No No notable events documented. Cosigned by Raheem Subramanian DO at 02/24/2025 10:57 AM EDT Associated attestation - Raheem Subramanian DO - 02/24/2025 10:57 AM EDT I agree with the findings and care plan documented in the postprocedure evaluation note. * Anesthesia Procedure Notes - Goran Ty CRNA - 02/21/2025 2:34 PM EDT Associated Order(s): Airway Airway Date/Time: 02/21/2025 2:26 PM Reason: elective Airway not difficult General Information and Staff Patient location during procedure: OR MANUFACTURING ENGINEERING MANAGER: Goran Ty CRNA Performed: MANUFACTURING ENGINEERING MANAGER Patient Condition Indications for airway management: anesthesia Patient position: sniffing Final Airway Details Final airway type: endotracheal airway Successful airway: ETT Cuffed: yes Successful intubation technique: video laryngoscopy Adjuncts used in placement: intubating stylet Endotracheal tube insertion site: oral Blade: Anna Blade size: #4 ETT size (mm): 7.5 Cormack-Lehane Classification: grade I - full view of glottis Placement verified by: chest auscultation and capnometry Cuff volume (mL): 6 Measured from: gums ETT to gums (cm): 23 Additional Comments Atraumatic. No change to dentition. * Anesthesia Preprocedure Evaluation - Raheem Subramanian DO - 02/21/2025 11:28 AM EDT No anesthesia staff entered. Patient: Panda Machado is a 34 y.o. male with body mass index is unknown because there is no height or weight on file. who presents with No Principal Problem: There is no principal problem currently onthe Problem List. Please update the Problem List and refresh., now for INCISION AND DRAINAGE, LOWEREXTREMITY (Left) Procedure Information Date/Time: 02/21/25 1200 Procedure: INCISION AND DRAINAGE, LOWER EXTREMITY (Left: Leg Lower) Location: [facility] OR [facility] / [facility] OR Surgeons: Lawrence Hayes MD Relevant Problems GI (+) Hiatal hernia ALLERGIES Allergies[1] NPO STATUS Past Medical History[2] AIRWAY HISTORY Airway Detailed Review Displaying the 20 most recent records Date Difficult Airway Blade Size ETT Size C-L Class Final Type Intubation Method 01/20/25 No 3 7.5 grade IIa - partial view of glottis endotracheal airway direct laryngoscopy 01/18/25 No 3 7.5 grade I - [...] airway, endotracheal airway direct laryngoscopy, direct laryngoscopy MEDICATIONS Outpatient Current Outpatient Medications Medication Instructions acetaminophen (TYLENOL) 1,000 mg, Oral, Every 6 hours PRN DAPTOmycin (CUBICIN) 1,100 mg, Intravenous, Every 24 hours, Inpatient/[place] specific directions only. Mix and deliver per institution/facility policy. ibuprofen 400 mg, Oral, Every 6 hours PRN methocarbamol (ROBAXIN) 750 mg, Oral, Every 6 hours PRN multivitamin (Theragran-M) tablet 1 tablet, Oral, Daily naloxone (NARCAN) 4 mg, Nasal, As needed Nutritional Supplements (Paul) pack 1 packet, Oral, 2 times daily oxyCODONE (OXY-IR) 5 mg, Oral, Every 6 hours PRN senna-docusate (Janeth-Colace) 8.6-50 MG tablet 1 tablet, Oral, 2 times daily VITAMIN D PO 1 tablet, Daily Scheduled Current Scheduled Medications[3] PRNs Current PRN Medications[4] SURGICAL HX: Surgical History[5] SOCIAL HX: Social History[6] OBJECTIVE DATA LABS Lab Results Component Value Date WBC 8.2 02/18/2025 HGB 12.00 02/18/2025 HCT 39.1 (L) 02/17/2025 MCV 92 02/17/2025 PLT 291 02/18/2025 Lab Results Component Value Date CALCIUM 9.3 02/17/2025 BUN 12 02/18/2025 CREATININE 0.9 02/18/2025 BCR 15 02/17/2025 NA 137 02/17/2025 K 4.6 02/17/2025 CL 101 02/17/2025 CO2 25 02/17/2025 Type and Screen No results found for: ABO Lab Results Component Value Date HGBA1C 5.6 01/01/2025 Lab Results Component Value Date GLUCOSE 94 02/17/2025 ABG No results found for: PHART , PRM8LXV , PO2ART , SO2ART , BEART , ECK3YES , HCTART , SODIUMART , POTASSIUMART , POCTCL , POCGLU , IONCALART , LACTATE Lab Results Component Value Date HCTSYR 40.4 01/15/2025 KSYR 4.3 01/15/2025 CLSYR 99 01/15/2025 GLUSYR 110 (H) 01/15/2025 CAION 4.6 01/15/2025 ECHO No echocardiogram results found for the past 12 months PFTs No results found for: VNW9CEG , UIL9JBWL , UWO8OVB , FVCPRED BP Readings from Last 5 Encounters: 02/17/25 125/82 02/03/25 129/88 01/22/25 132/85 01/02/25 135/82 12/31/24 133/74 Physical Exam Airway Mallampati: II Mouth opening: normal Neck ROM: full Cardiovascular Rhythm: regular Rate: normal Dental (+) poor dentition Pulmonary Breath sounds clear to auscultation Neurological Oriented: normal to time, normal to place and normal to person and oriented to person, place and time Skin Musculoskeletal Extremities Other findings: Upper teeth missing Anesthesia Plan ASA 2 Plan was reviewed with: MANUFACTURING ENGINEERING MANAGER and resident Anesthesia technique(s) discussed with the patient/family: general Anesthesia plan agreed upon was: general Anesthetic plan and risks discussed with patient. Use of blood products discussed with patient who consented to blood products. ROS Anesthesia: Date of last anesthetic: Hx of multiple anesthetics wo complications Cardiovascular: Negative cardio ROS. Patient's ECG reviewed. Exercise tolerance is 3 flights of stairs. Respiratory: Negative respiratory ROS. HEENT: missing teeth. Neurological: Negative neuro ROS. Gastrointestinal: Negative GI ROS. [1] Allergies Allergen Reactions [place] Hives [2] Past Medical History: Diagnosis Date Fractures 09/09/2022 [3] [4] [5] Past Surgical History: Procedure Laterality Date INCISION AND DRAINAGE, LEG Left 01/20/2025 ([facility]) INCISION AND DRAINAGE, LOWER EXTREMITY (Left: Leg Lower) KNEE SURGERY Left 01/18/2025 ([facility]) INCISION AND DRAINAGE, LOWER EXTREMITY (Left: Leg Lower) LEG SURGERY Left CHRIS NAIL IM RODDING Left 09/10/2024 ([facility]) INSERTION, INTRAMEDULLARY SHERLY, FEMUR (Left: Leg Upper) ORIF TIBIA FRACTURE Left 09/15/2023 ([facility]) ORIF, FRACTURE, TIBIA, PLATEAU (Left: Leg Lower) ORIF TIBIAL PLATEU FRACTURE Left 01/01/2025 ([facility]) ORIF, FRACTURE, TIBIA, PLATEAU (Left: Knee) ORTHOPEDIC SURGERY 09/06/2022 Had 4 other similar surgeries [6] Social History Tobacco Use Smoking status: Every Day Current packs/day: 1.00 Average packs/day: 1 pack/day for 15.0 years (15.0 ttl pk-yrs) Types: Cigarettes Smokeless tobacco: Never Vaping Use Vaping status: Never Used Substance Use Topics Alcohol use: Never Drug use: Never documented in this encounter Plan of Treatment Upcoming Encounters Date Type Department Care Team (Late st Contact Info) Description 03/27/2025 9:30 AM EDT Office Visit [facility] [address] [place] [address] Santiago Collado MD [address] [facility] [address] [place] [address] 04/07/2025 10:45 AM EDT Appointment [facility] Radiology [address] [place] [phone] 04/07/2025 11:20 AM EDT Office Visit [facility] Orthopaedic Surgery & Sports Medicine [address] [place] [address] Lawrence Hayes MD [address] [place] [address] documented as of this encounter Procedures Procedure Name Priority Date/Time Associated Diagnosis Comments PB ANESTHESIA PLACEHOLDER Routine 02/21/2025 2:26 PM EDT ME AN ELECTIVE ENDOTRACHEAL AIRWAY Routine 02/21/2025 2:26 PM EDT documented in this encounter Results * ME AN ELECTIVE ENDOTRACHEAL AIRWAY, PB ANESTHESIA PLACEHOLDER (02/21/2025 2:26 PM EDT) Narrative Goran Ty CRNA - 02/21/2025 2:26 PM EDT Goran Ty CRNA 02/21/2025 2:35 PM Airway Date/Time: 02/21/2025 2:26 PM Reason: elective Airway not difficult General Information and Staff Patient location during procedure: OR MANUFACTURING ENGINEERING MANAGER: Goran Ty CRNA Performed: MANUFACTURING ENGINEERING MANAGER Patient Condition Indications for airway management: anesthesia Patient position: sniffing Final Airway Details Final airway type: endotracheal airway Successful airway: ETT Cuffed: yes Successful intubation technique: video laryngoscopy Adjuncts used in placement: intubating stylet Endotracheal tube insertion site: oral Blade: Anna Blade size: #4 ETT size (mm): 7.5 Cormack-Lehane Classification: grade I - full view of glottis Placement verified by: chest auscultation and capnometry Cuff volume (mL): 6 Measured from: gums ETT to gums (cm): 23 Additional Comments Atraumatic. No change to dentition. Raheem Subramanian DO ANESTHESIA ORDERABLES Final Re sult documented in this encounter Visit Diagnoses Not on filedocumented in this encounter Administered Medications Inactive Administered Medications - up to 3 most recent administrations Medication Order MAR Action Action Date Dose Rate Site ceFAZolin (Ancef) injection 3 g 3 g, Intravenous, Once, 1 dose, On Mon02/21/25 at 1500, Routine, Anesthesia Intraprocedure Given 02/21/2025 2:34 PM EDT 3 g dexamethasone (Decadron) injection Intravenous, As needed, Starting on Mon02/21/25 at 1428, Until Mon02/21/25 at 1631, Routine, Anesthesia Intraprocedure Given 02/21/2025 2:28 PM EDT 8 mg dexmedetomidine (Precedex) 100 MCG/ML concentrated solution Intravenous, As needed, Starting on Mon02/21/25 at 1453, Until Mon02/21/25 at 1631, Routine, Anesthesia Intraprocedure Given 02/21/2025 3:36 PM EDT 8 mcg Given 02/21/2025 3:30 PM EDT 8 mcg Given 02/21/2025 2:53 PM EDT 16 mcg fentaNYL (Sublimaze) injection Intravenous, As needed, Starting on Mon02/21/25 at 1423, Until Mon02/21/25 at 1631, Routine, Anesthesia Intraprocedure Given 02/21/2025 4:09 PM EDT 50 mcg Given 02/21/2025 3:46 PM EDT 50 mcg Given 02/21/2025 2:23 PM EDT 100 mcg HYDROmorphone PF (Dilaudid) injection Intravenous, As needed, Starting on Mon02/21/25 at 1453, Until Mon02/21/25 at 1631, Routine, Anesthesia Intraprocedure Given 02/21/2025 2:53 PM EDT 1 mg lactated Ringer's infusion Intravenous, Continuous PRN, Starting on Mon02/21/25 at 1418, Until Mon02/21/25 at 1631, Routine New Bag 02/21/2025 2:18 PM EDT lidocaine PF (Xylocaine) 2 % injection Intravenous, As needed, Starting on Mon02/21/25 at 1423, Until Mon02/21/25 at 1631, Routine, Anesthesia Intraprocedure Given 02/21/2025 2:23 PM EDT 100 mg midazolam (Versed) injection Intravenous, As needed, Starting on Mon02/21/25 at 1423, Until Mon02/21/25 at 1631, Routine, Anesthesia Intraprocedure Given 02/21/2025 2:23 PM EDT 2 mg ondansetron (Zofran) injection Intravenous, As needed, Starting on Mon02/21/25 at 1531, Until Mon02/21/25 at 1631, Routine, Anesthesia Intraprocedure Given 02/21/2025 3:31 PM EDT 4 mg propofol (Diprivan) injection Intravenous, As needed, Starting on Mon02/21/25 at 1423, Until Mon02/21/25 at 1631, Routine, Anesthesia Intraprocedure Given 02/21/2025 2:23 PM EDT 200 mg rocuronium (ZeMuron) injection Intravenous, As needed, Starting on Mon02/21/25 at 1423, Until Mon02/21/25 at 1631, Routine, Anesthesia Intraprocedure Given 02/21/2025 2:23 PM EDT 80 mg sugammadex (Bridion) 100 MG/ML injection Intravenous, As needed, Starting on Mon02/21/25 at 1615, Until Mon02/21/25 at 1631, Routine, Anesthesia Intraprocedure Given 02/21/2025 4:15 PM EDT 200 mg documented in this encounter Additional Health Concerns Infection Onset Date Last Indicated Resolved Time 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
--- OUTSIDE RECORDS SUMMARY | 2025-03-11 07:50 | XMS_ITS | Encounter Summary ---
Author Organization Healthcare Address [address] [place] [address] Care Team Providers Care Pallet Repairer Name Role Phone Blaine Nava MD Primary Care Provider [phone] Reason for Visit * Reason Comments Post-op Encounter Details Date Type Department Care Team (Late st Contact Info) Description 2025 7:50 AM EDT Office Visit [facility] Orthopaedic Surgery & Sports Medicine [address], 1[address] [place] [address] Stella Brown, DAIRY FARMWORKER [address] [place] [address] Infection (Primary Dx) Social History [...] and Family Not on file 02/24/2025 Attends [employer] Not on file 02/24 Active Member [...] [place] (including now)? No 02/24/2025 CAGE ASSESSMENT Answer [...] first t traci in the morning (EYE-BUSINESS CONTROLLER) to steady your nerves or to get rid of a hangover? 0 09/10/2023 CAGE Questionnaire Score 0 024 Utilities Answer Date Recorded In the past 12 months has th e [employer], gas, oil, or water company threatened to [...] Notes * Progress Notes - Stella Brown, DAIRY FARMWORKER - 2025 7:50 AM EDT Chief Complaint: [...] Description 03/27/2025 9:30 AM EDT Office Visit [facility] [address] [place] [address] Santiago Collado MD [address] [facility] [address] [place] [address] 04/07/2025 10:45 AM EDT Appointment [facility] Radiology [address], 1st [place] [address] 04/07/2025 11:20 AM EDT Office Visit [facility] Orthopaedic Surgery & Sports Medicine [address], 1st [address] [place] [address] [place] [address] Lawrence Hayes MD [address] [facility] [address] [place] [address] Scheduled Orders Name Type Priority Associated Diagnoses [...] documented as of this encounter Care Teams Pallet Repairer Relationship Specialty Start Date End Date Blaine Nava MD [address] [place] [address] [address]1 [place] [address] PCP - General 02/17/25 documented as of this encounter
[2025-03-17 09:09] VITALS: BMI 42.3
--- OUTSIDE RECORDS SUMMARY | 2025-03-17 09:13 | XMS_ITS | Encounter Summary ---
Author Organization Healthcare Address [address] [place] [address] Care Team Providers Care Director Visual Name Role Phone Blaine Nava MD Primary Care Provider [phone] Encounter Details Date Type Department Care Team (Late st Contact Info) Description 02/25/2025 Clinical Support [facility] [address] [place] [address] Sachin Singh, PharmD [address] [place] [address] [address] [place] [address] Social History Tobacco Use Types [...] and Family Not on file 02/24/2025 Attends [employer] Not on file 02/24 Active Member [...] the past 12 m [facility], were you homeless or living in a [...] drink first t traci in the morning (EYE-NUCLEAR CRITICALITY SAFETY ENGINEER) to steady your nerves or to [...] Description 03/27/2025 9:30 AM EDT Office Visit [facility] [address] [place] [address] Santiago Collado MD [address] [facility] [address] [place] [address] 04/07/2025 10:45 AM EDT Appointment [facility] Radiology [address], 1st [place] [address] 04/07/2025 11:20 AM EDT Office Visit [facility] Orthopaedic Surgery & Sports Medicine [address], [address] [place] [address] Lawrence Hayes MD [address] [place] [address] documented as of this encounter Visit Diagnoses [...] as of this encounter Care Teams Director Visual Relationship Specialty Start Date End Date Blaine Nava MD [address] [place] [address] [address]1 [place] [address] PCP - General 02/17/25 documented as of this encounter
--- OUTSIDE RECORDS SUMMARY | 2025-03-17 09:13 | XMS_ITS | Encounter Summary ---
Author Organization Healthcare Address [address] [place] [address] Care Team Providers Care Parish Visitor Name Role Phone Blaine Nava MD Primary Care Provider [phone] Encounter Details Date Type Department Care Team (Late st Contact Info) Description 02/25/2025 Clinical Support [facility] [address] [place] [address] Sachin Singh, PharmD [address] [place] [address] [address] [place] [address] Social History Tobacco Use Types [...] living in a half-way (including now)? No 02/24/2025 CAGE ASSESSMENT Answer [...] first t traci in the morning (EYE-DIRECTOR REACTOR PROJECTS) to steady your nerves or to get [...] IV every 24 hours Silvia, [facility]; . End date is 04/04/2025. Sachin Singh, Thu, [facility] Clinical Pharmacist, Infectious Diseases & Outpatient Parenteral Antimicrobial Therapy (OPAT) Available via [employer] Secure Neronote documented in this encounter Plan of Treatment Upcoming Encounters Date Type Department Care Team (Late st Contact Info) Description 03/27/2025 9:30 AM EDT Office Visit [facility] [address] [facility] [place] [address] Santiago Collado MD [address] [facility] [address] [place] [address] 04/07/2025 10:45 AM EDT Appointment [facility] Radiology [address], 1st [place] [address] 04/07/2025 11:20 AM EDT Office Visit [facility] Orthopaedic Surgery & Sports Medicine [address], [address] [place] [address] Lawrence Hayes MD [address] [place] [address] documented as of this encounter [...] documented as of this encounter Care Teams Parish Visitor Relationship Specialty Start Date End Date Blaine Nava MD [address] [place] [address] PCP - General 02/17/25 documented as of this encounter
--- OUTSIDE RECORDS SUMMARY | 2025-03-17 09:13 | XMS_ITS | Encounter Summary ---
Author Organization [facility] Address [address] [place] [address] Care Team Providers Care Unionmelt Operator Name Role Phone Blaine Nava MD Primary Care Provider Encounter Details Date Type Department Care Team (Latest Contact Info) Description 03/10/2025 Travel Social History Tobacco Use Types Packs/Day [...] and Family Not on file 02/24/2025 Attends [employer] Not on file 02/24 Active Member [...] living in a [facility] (including now)? No 02/24/2025 CAGE ASSESSMENT Answer [...] drink first t traci in the morning (EYE-PHYSICAL THERAPY ASSISTANT) to steady your nerves or to get rid of a hangover? 0 09/10/2023 CAGE Questionnaire Score 0 024 Utilities Answer Date Recorded In the past 12 months has e [employer], gas, oil, or water [employer] threatened to shut off services in your [...] Visit [facility] [address] [place] [address] Santiago Collado MD [address] [facility] [address] [place] [address] 04/07/2025 10:45 AM EDT Appointment [facility] Radiology [address], 1st [place] [address] 04/07/2025 11:20 AM EDT Office Visit [facility] Orthopaedic Surgery & Sports Medicine [address], [address] [place] [address] Lawrence Hayes MD [address] [place] [address] documented as of this encounter [...] documented as of this encounter Care Teams Unionmelt Operator Relationship Specialty Start Date End Date Blaine Nava MD [address] [place] [address] [address] [place] [address] PCP - General 02/17/25 documented as of this encounter
--- OUTSIDE RECORDS SUMMARY | 2025-03-17 09:14 | XMS_ITS | Encounter Summary ---
Author Organization [facility] Address [address] [place] [address] Care Team Providers Care Ancient Art Curator Name Role Phone Blaine Nava MD Primary Care Provider [phone] Encounter Details Date Type Department Care Team [...] first t traci in the morning (EYE-ROLLER CHECKER) to steady your nerves or to [...] Description 03/27/2025 9:30 AM EDT Office Visit [place] [address] [place] [address] Santiago Collado MD [facility] [address] [place] [address] 04/07/2025 10:45 AM EDT Appointment [facility] Radiology [address], 1st [place] [address] 04/07/2025 11:20 AM EDT Office Visit [facility] Orthopaedic Surgery & Sports Medicine [address], [address] [place] [address] Lawrence Hayes MD [address] [place] [address] documented as of this encounter Visit Diagnoses [...] documented as of this encounter Care Teams Ancient Art Curator Relationship Specialty Start Date End Date Blaine Nava MD [address] [place] [address] [address] [place] [address] PCP - General 02/17/25 documented as of this encounter
--- OUTSIDE RECORDS SUMMARY | 2025-03-17 09:14 | XMS_ITS | Encounter Summary ---
Author Organization [facility] Address [address] [place] [address] Care Team Providers Care Accounting Machine Servicer Name Role Phone Blaine Nava MD Primary Care Provider [phone] Encounter Details Date Type Department Care Team (Latest Contact Info) Description 2025 Travel Social History Tobacco Use Types Packs/Day [...] and Family Not on file 02/24/2025 Attends [employer] Not on file 02/24 Active Member [...] drink first t traci in the morning (EYE-RADAR ENGINEERING TEACHER) to steady your nerves or to get rid of a hangover? 0 09/10/2023 CAGE Questionnaire Score 0 024 Utilities Answer Date Recorded In the past 12 months has e [employer], gas, oil, or water [employer] threatened to shut off services in your [...] Description 03/27/2025 9:30 AM EDT Office Visit [facility] [address] [place] [address] Santiago Collado MD [address] [facility] [address] [place] [address] 04/07/2025 10:45 AM EDT Appointment [facility] Radiology [address], 1st [place] [address] 04/07/2025 11:20 AM EDT Office Visit [facility] Orthopaedic Surgery & Sports Medicine [address], 1[address] [place] [address] Lawrence Hayes MD [address] [place] [address] documented as of this encounter [...] documented as of this encounter Care Teams Accounting Machine Servicer Relationship Specialty Start Date End Date Blaine Nava MD [address] [place] [address] [address] [place] [address] PCP - General 02/17/25 documented as of this encounter
--- OUTSIDE RECORDS SUMMARY | 2025-03-17 09:15 | XMS_ITS | Encounter Summary ---
Author Organization Healthcare Address [address] [place] [address] Care Team Providers Care Ac/Dc Rewinder Name Role Phone Renetta Pardo APRN Primary Care Provider [phone] Encounter Details Date Type Department Care Team [...] first t traci in the morning (EYE-SENIOR SOLUTIONS ARCHITECT) to steady your nerves or to get [...] Description 03/27/2025 9:30 AM EDT Office Visit [facility] [address] [place] [address] Santiago Collado MD [address] [facility] [address] [place] [address] 04/07/2025 10:[address] [facility] Radiology [address], 1st [place] [address] 04/07/2025 11:20 AM EDT Office Visit [facility] Orthopaedic Surgery & Sports Medicine [address], [address] [place] [address] Lawrence Hayes MD [address] [place] [address] documented as of this encounter Visit Diagnoses [...] documented as of this encounter Care Teams Ac/Dc Rewinder Relationship Specialty Start Date End Date Renetta Pardo APRN [address] [place] [address] [address] [place] [address] PCP - General 09/09/23 02/16/25 documented as of this encounter
--- OUTSIDE RECORDS SUMMARY | 2025-03-17 09:16 | XMS_ITS | Encounter Summary ---
Author Organization Healthcare Address [address] [place] [id number] Care Team Providers Care Network Analyst Name Role Phone Renetta Pardo APRN Primary Care Provider [phone] Encounter Details Date Type Department Care Team (Late st Contact Info) Description 01/23/2025 Clinical Support [facility] [address] [place] [address] Gume Ibarra, PharmD [address] [place] [address] Social History Tobacco Use Types Packs/Day Years [...] drink first t traci in the morning (EYE-RADIOLOGIC THERAPIST) to steady your nerves or to get rid of a hangover? 0 09/10/2023 CAGE Questionnaire Score 0 024 Utilities Answer Date Recorded In the past 12 months has th e [employer], gas, oil, or water company threatened to [...] Description 03/27/2025 9:30 AM EDT Office Visit [facility] [address] [facility] [place] [address] Santiago Collado MD [address] [facility] [address] [place] [address] 04/07/2025 10:45 AM EDT Appointment [facility] Radiology [address], 1st [place] [address] 04/07/2025 11:20 AM EDT Office Visit [facility] Orthopaedic Surgery & Sports Medicine [address], [address] [place] [address] Lawrence Hayes MD [address] [place] [address] documented as of this encounter [...] documented as of this encounter Care Teams Network Analyst Relationship Specialty Start Date End Date Renetta Pardo APRN [address] [place] [address] [place] [address] PCP - General 09/09/23 02/16/25 documented as of this encounter
--- OUTSIDE RECORDS SUMMARY | 2025-03-17 09:16 | XMS_ITS | Encounter Summary ---
Author Organization Healthcare Address [address] [place] [address] Care Team Providers Care Cook Station Name Role Phone Renetta Pardo APRN Primary Care Provider [phone] Encounter Details Date Type Department Care Team (Late st Contact Info) Description 01/23/2025 Clinical Support [facility] [address] [place] [address] Sonia Meyer, PharmD Social History Tobacco Use [...] drink first t traci in the morning (EYE-PERFORMANCE IMPROVEMENT MANAGER) to steady your nerves or to get rid of a hangover? 0 09/10/2023 CAGE Questionnaire Score 0 024 Utilities Answer Date Recorded In the past 12 months has th e [employer], gas, oil, or water company threatened to [...] Discharge Communication: Confirmation of IV Antimicrobials Home [facility], [facility]; Comments ID / OPAT pharmacist called and spoke with chon Vega at [facility] to confirm orders for daptomycin 1100 mg IV every 24 hours until 03/03/25. Sonia Meyer PharmD, [facility] Clinical Pharmacist Infectious Diseases, OPAT Available via [employer] Secure Chat documented in this encounter Plan of Treatment Upcoming Encounters Date Type Department Care Team (Late st Contact Info) Description 03/27/2025 9:30 AM EDT Office Visit [facility] [address] [place] [address] Santiago Collado MD [address]01 [facility] [address] [place] [address] 04/07/2025 10:45 AM EDT Appointment [facility] Radiology [address], 1st [place] [address] 04/07/2025 11:20 AM EDT Office Visit [facility] Orthopaedic Surgery & Sports Medicine [address], 1[address] [place] [address] Lawrence Hayes MD [address] [facility] [address] [place] [address] documented as of this encounter [...] documented as of this encounter Care Teams Cook Station Relationship Specialty Start Date End Date Renetta Pardo APRN [address] [place] [address] [address] [place] [address] PCP - General 09/09/23 02/16/25 documented as of this encounter
--- OUTSIDE RECORDS SUMMARY | 2025-03-17 09:16 | XMS_ITS | Encounter Summary ---
Author Organization [facility] Address [address] [place] [address] Care Team Providers Care Accounts Payable Accountant Name Role Phone Renetta Pardo APRN Primary Care Provider [phone] Blaine Nava MD Primary Care Provider [phone] Reason for Visit * Reason Onset Date Comments HCN - Patient Message 01/27/2025 Encounter Details Date Type Department Care Team (Late st Contact Info) Description 01/27/2025 Telephone [facility] Orthopaedic Surgery & Sports Medicine [address], 1[address] [place] [address] Lawrence Hayes MD [address] [place] [address] HCN - Patient Message Social [...] any time in the past 12 m [facility], were you homeless or living in a jail (including now)? No 02/24/2025 CAGE ASSESSMENT Answer [...] first t traci in the morning (EYE-PRINCIPAL CLERK) to steady your nerves or to get rid of a hangover? 0 09/10/2023 CAGE Questionnaire Score 0 024 Utilities Answer Date Recorded In the past 12 months has th e [employer], gas, oil, or water company threatened to [...] Please call to advise Best contact number: [phone] (mobile) Optimal time of day to reach [...] 03/27/2025 9:30 AM EDT Office Visit [facility] [address] [place] [address] Santiago Collado MD [address] [facility] [address] [place] [address] 04/07/2025 10:45 AM EDT Appointment [facility] Radiology [address], 1st [place] [address] 04/07/2025 11:20 AM EDT Office Visit [facility] Orthopaedic Surgery & Sports Medicine [address], [address] [place] [address] Lawrence Hayes MD [address] [facility] [address] [place] [address] documented as of this encounter [...] documented as of this encounter Care Teams Accounts Payable Accountant Relationship Specialty Start Date End Date Renetta Pardo APRN [address] [place] [address] [address] [place] [address] PCP - General 09/09/23 02/16/25 Blaine Nava MD [address] [place] [address] [address] [place] [address] PCP - General 02/17/25 documented as of this encounter
--- OUTSIDE RECORDS SUMMARY | 2025-03-17 09:16 | XMS_ITS | Encounter Summary ---
Author Organization Healthcare Address [address] [place] [address] Care Team Providers Care Podiatrist Orthopedic Name Role Phone Renetta Pardo APRN Primary Care Provider [phone] Encounter Details Date Type Department Care Team [...] in the past 12 m [facility], were you homeless or living in [...] drink first t traci in the morning (EYE-DEFENSIVE FIRE CONTROL SYSTEMS OPERATOR) to steady your nerves or to [...] 03/27/2025 9:30 AM EDT Office Visit [facility] [address] [place] [id number] Santiago Collado MD [address] [facility] [address] [place] [phone] 04/07/2025 10:45 AM EDT Appointment [facility] Radiology [address], [address] [place] [address] 04/07/2025 11:20 AM EDT Office Visit [facility] Orthopaedic Surgery & Sports Medicine [address] [place] [address] Lawrence Hayes MD [address] [place] [address] documented as of this encounter Visit Diagnoses [...] documented as of this encounter Care Teams Podiatrist Orthopedic Relationship Specialty Start Date End Date Renetta Pardo APRN [address] [place] [address] [place] [address] PCP - General 09/09/23 02/16/25 documented as of this encounter
--- OUTSIDE RECORDS SUMMARY | 2025-03-17 09:16 | XMS_ITS | Encounter Summary ---
Author Organization Healthcare Address [address] [place] [address] Care Team Providers Care Suede Brusher Name Role Phone Renetta Pardo APRN Primary Care Provider [phone] Encounter Details Date Type Department Care Team [...] drink first t traci in the morning (EYE-DEPUTY K 9) to steady your nerves or to get [...] 03/27/2025 9:30 AM EDT Office Visit [facility] [address] [place] [id number] Santiago Collado MD [address] [facility] [address] [place] [phone] 04/07/2025 10:45 AM EDT Appointment [facility] Radiology [address], [address] [place] [address] 04/07/2025 11:20 AM EDT Office Visit [facility] Orthopaedic Surgery & Sports Medicine [address] [place] [address] Lawrence Hayes MD [address] [place] [address] documented as of this encounter Visit Diagnoses [...] documented as of this encounter Care Teams Suede Brusher Relationship Specialty Start Date End Date Renetta Pardo APRN [address] [place] [address] [place] [address] PCP - General 09/09/23 02/16/25 documented as of this encounter
--- OUTSIDE RECORDS SUMMARY | 2025-03-17 09:16 | XMS_ITS | Encounter Summary ---
Author Organization Healthcare Address [address] [place] [address] Care Team Providers Care Peoplesoft Programmer Name Role Phone Renetta Pardo APRN Primary Care Provider [phone] Encounter Details Date Type Department Care Team (Late st Contact Info) Description 01/24/2025 Telephone [facility] Orthopaedic Surgery & Sports Medicine [address] [place] [id number] [facility] [facility], [facility] ADMIN Social [...] time in the past 12 m [facility], were you homeless or living [...] drink first t traci in the morning (EYE-LITHOGRAPHIC PHOTOGRAPHER) to steady your nerves or to get rid of a hangover? 0 09/10/2023 CAGE Questionnaire Score 0 024 Utilities Answer Date Recorded In the past 12 months has th e [employer], gas, oil, or water [employer] threatened to shut off services in your [...] AM EDT Office Visit [facility] [address] [place] [address] Santiago Collado MD [address] [facility] [address] [place] [address] 04/07/2025 10:45 AM EDT Appointment [facility] Radiology [address], [address] [place] [address] 04/07/2025 11:20 AM EDT Office Visit [facility] Orthopaedic Surgery & Sports Medicine [address] [place] [address] Lawrence Hayes MD [address] [place] [address] documented as of this encounter [...] documented as of this encounter Care Teams Peoplesoft Programmer Relationship Specialty Start Date End Date Renetta Pardo APRN [address] [place] [address] Dr [address] [place] [address] PCP - General 09/09/23 02/16/25 documented as of this encounter
--- OUTSIDE RECORDS SUMMARY | 2025-03-17 09:16 | XMS_ITS | Clinical Summary ---
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 [address] * (ABNORMAL) Body Fluid Cell Count w/ [...] Final Result Performing Organization Address [facility] Co de Phone Number [facility] [address] [place] [address] * Body fluid, cytospin, pathologist interpretation (01/18/2025 [...] Final Result Performing Organization Address [facility]/ZIP Co de Phone Number [facility] [address] [place] [address] * Joint Fluid Crystals (01/18/2025 3:01 PM EDT) Crystals, Joint Fluid No Crystals Seen No Crystals Present 01/18/2025 5:28 PM EDT [facility] Joint Fluid Structure of left knee region / Unknown 01/18/2025 3:01 PM EDT 01/18/2025 3:28 PM EDT us Sachin Garza MD LAB BODY FLUIDS AND STOOLS O RDERABLES Final Result [facility] [address] [place] [address] * Joint Infection Panel by PCR (01/18/2025 [...] PM EDT [facility] Streptococcus pneumoniae PCR Result Not Detected Not Detected 01/18/2025 5:28 PM EDT [facility] Streptococcus pyogenes PCR Result Not Detected Not Detected 01/18/2025 5:28 PM EDT [facility] Bacteroides fragilis PCR Result Not Detected Not Detected 01/18/2025 5:28 PM EDT [facility] Citrobacter PCR Result Not Detected Not Detected 01/18/2025 5:28 PM EDT [facility] Enterobacter cloacae complex PCR Result Not Detected Not Detected 01/18/2025 5:28 PM EDT [facility] Escherichia coli PCR Result Not Detected [...] 5:28 PM EDT [facility] Neisseria gonorrhoeae PCR Result Not Detected Not Detected 01/18/2025 5:28 PM EDT [facility] Proteus spp PCR Result Not Detected Not Detected 01/18/2025 5:28 PM EDT [facility] Pseudomonas aeruginosa PCR Result Not Detected Not Detected 01/18/2025 5:28 PM EDT [facility] Salmonella spp PCR Result Not Detected Not Detected 01/18/2025 5:28 PM EDT [facility] Serratia marcescens PCR Result Not Detected Not Detected 01/18/2025 5:28 PM EDT [facility] Nelda PCR Result Not Detected Not Detected 01/18/2025 5:28 PM EDT [facility] Nelda albicans PCR Result Not Detected Not Detected 01/18/2025 5:28 PM EDT [facility] CTXM PCR Result Not Detected Not Detected 01/18/2025 5:28 PM EDT [facility] IMP PCR Result Not Detected Not [...] MICROBIOLOGY - GENERAL O RDERABLES Final Result [facility] [address] [place] [address] * PA AN ELECTIVE ENDOTRACHEAL AIRWAY, PB [...] Not Detected 01/18/2025 9:36 AM EDT [facility] Swab Both anterior nares / Unknown Non-blood Collection / Unknown 01/18/2025 7:43 AM EDT 01/18/2025 8:19 AM EDT [facility] - 01/18/2025 9:36 AM EDT This [...] Final Result Performing Organization Address [facility] Co de Phone Number [facility] [address] [place] [address] * Vancomycin, Peak, Plasma Please draw ~2 hours after 1000 dose of vancomycin on Monday finishes infusing. Consider obtaining level via peripheral stick. If peripheral stick is not feasible, please ensure that line is flushed well prior to drawing l... (01/17/2025 2:03 PM EDT) Pathologist [facility] Vancomycin, Peak, Plasma 22.0 20.0 - 40.0 ug/mL 01/17/2025 3:01 PM EDT [facility] Blood Venous blood specimen / Unknown Venipuncture / Unknown 01/17/2025 2:03 PM EDT 01/17/2025 2:32 PM EDT [facility] - 01/17/2025 3:01 PM EDT Therapeutic Peak level: 20-40ug/mL Supra-therapeutic Peak level: >40 ug/mL us Sachin Garza MD LAB BLOOD ORDERABLES Final R esult Performing Organization Address [facility]/ZIP Co de Phone Number [facility] [address] [place] [address] * Vancomycin, Trough, Plasma Please draw ~30 [...] MD LAB BLOOD ORDERABLES Final R esult [facility] [address] [place] [address] * [place] Extremity Limited MSK or Soft [...] MD on 01/16/2025 2:31 AM Gus Tierney RN FAMILY IMG CT PROCEDURES Final Result * Blood [...] [facility] [address] [place] [address] * XR Chest 1 View (01/15/2025 11:21 [...] Dmitriy Rogers MD on 01/15/2025 11:40 PM Ye Navarro MD IMG XR PROCEDURES Final [...] on 01/15/2025 11:40 PM us Gus Tierney RN FAMILY IMG XR PROCEDURES Final Result * ECG Adult (01/15/2025 10:46 PM EDT) Only the most recent of3 resultswithin the time period is included. EKG DIAGNOSIS CLASS Normal MUSE ECG Ventricular Rate 92 BPM MUSE ECG Atrial Rate 92 BPM MUSE ECG PA Interval 122 ms MUSE ECG QRSD Interval 102 ms MUSE ECG QT Interval 350 ms MUSE ECG QTC Interval 432 ms MUSE ECG P [place] 56 degrees MUSE ECG R [place] 44 degrees MUSE ECG T Wave [place] 57 degrees MUSE ECG Diagnosis Normal sinus [...] ORDERABLES Fin al Result Performing Organization Address City/[facility] Co de Phone Number [facility] [address] [place] [address] * Lactate, venous (01/02/2025 2:46 AM EDT) Only the most recent of4 resultswithin the time period is included. Lactate, Venous, Whole Blood 1.8 0.5 - 2.2 mmol/L LAB HEMATOLOGY METHOD 01/02/2025 2:55 AM EDT [facility] Blood Venous blood specimen / Unknown Venipuncture / Unknown 01/02/2025 2:46 AM EDT 01/02/2025 2:53 AM EDT Lawrence Hayes MD LAB BLOOD ORDERABLES Final Re sult Performing Organization Address City/[facility] Co de Phone Number [facility] [address] [place] [address] * PA AN ELECTIVE ENDOTRACHEAL AIRWAY, PB ANESTHESIA PLACEHOLDER (01/01/2025 11:28 AM EDT) Narrative Rubén Millan CRNA - 01/01/2025 11:28 AM EDT Rubén Millan CRNA 01/01/2025 11:31 AM Airway Date/Time: 01/01/2025 11:28 AM Reason: elective Airway not difficult General Information and Staff Patient location during procedure: OR MECHANICAL METER TESTER: Rubén Millan CRNA Performed: MECHANICAL METER TESTER Patient Condition Indications for airway management: anesthesia [...] 5.6 <5.7 % 01/01/2025 8:29 AM EDT [facility] Blood Venous blood specimen / Unknown Venipuncture / Unknown 01/01/2025 7:17 AM EDT 01/01/2025 7:23 AM EDT Narrative [facility] - 01/01/2025 8:29 AM EDT HA1C Interpretive Data: Diagnosis of Diabetes: Diabetic > or = 6.5% Pre-diabetic 5.7 to 6.4% Non-diabetic < or = 5.6% Glycemic Targets for Type I and Type II Diabetics: Non- Adults <7.0% Adults <6.0% Children and Adolescents <7.5% Source: [place] [employer]. Standards of medical care in diabetes,2017. Diabetes Care.2017:40 (suppl 1):S1-S135. us Lawrence Hayes MD LAB BLOOD ORDERABLES Final Re sult [facility] [address] [place] [address] * XR Ankle Left 3+ Views (01/01/2025 [...] Reactive Non Reactive 01/01/2025 1:33 AM EDT [facility] Comment:Screening for HIV 1 & 2 antibodies, and P24 antigen is NONREACTIVE. No confirmatory testing is required. Blood Venous blood specimen / Unknown Venipuncture / Unknown 01/01/2025 12:35 AM EDT 01/01/2025 12:52 AM EDT Kareem Perera MD LAB BLOOD ORDERABLES Final Resu lt Performing Organization Address City/[facility]/[place] [address] * Hepatitis C Antibody - ED (01/01/2025 12:35 AM EDT) Hepatitis C Antibody Negative Negative 01/01/2025 1:33 AM EDT [facility] Blood Venous blood specimen / Unknown Venipuncture / Unknown 01/01/2025 12:35 AM EDT 01/01/2025 12:52 AM EDT Kareem Perera MD LAB BLOOD ORDERABLES Final Resu lt Performing Organization Address [facility] [place] [address] * Light Green Top (01/01/2025 12:27 AM EDT) Extra Hold for add-ons 01/01/2025 3:02 AM EDT [facility] Comment:Auto resulted. Blood Venous blood specimen / Unknown 01/01/2025 12:27 AM EDT 01/01/2025 12:42 AM EDT Kareem Perera MD LAB BLOOD ORDERABLES Final Resu lt Performing Organization Address [facility] [place] [address] * CT OUTSIDE IMAGES (12/31/2024 7:02 PM [...] Patient has decision-making capacity? Yes Care Teams Pack Room Operator Relationship Specialty Start Date End Date Blaine Nava MD [address] [place] [address] [address] [place] [address] PCP - General 02/17/25
--- OUTSIDE RECORDS SUMMARY | 2025-03-17 09:17 | XMS_ITS | Encounter Summary ---
Author Organization [facility] Address [address] [place] [address] Care Team Providers Care Agitator Operator Name Role Phone Blaine Nava MD Primary Care Provider [phone] Encounter Details Date Type Department Care Team [...] any time in the past 12 m [facility], were you homeless or living [...] drink first t traci in the morning (EYE-TIME BUYER) to steady your nerves or to [...] EDT Office Visit [facility] [address] [place] [address] Santiago Collado MD [address] [facility] [address] [place] [address] 04/07/2025 10:45 AM EDT Appointment [facility] Radiology [address], 1st [place] [address] 04/07/2025 11:20 AM EDT Office Visit [facility] Orthopaedic Surgery & Sports Medicine [address], [address] [place] [address] Lawrence Hayes MD [address] [place] [address] documented as of this encounter [...] documented as of this encounter Care Teams Agitator Operator Relationship Specialty Start Date End Date Blaine Nava MD [address] [place] [address] [address] [place] [address] PCP - General 02/17/25 documented as of this encounter
--- OUTSIDE RECORDS SUMMARY | 2025-03-17 09:17 | XMS_ITS | Encounter Summary ---
Author Organization Healthcare Address [address] [place] [address] Care Team Providers Care Director Drug Safety Name Role Phone Renetta Pardo APRN Primary Care Provider [phone] Encounter Details Date Type Department Care Team [...] drink first t traci in the morning (EYE-COAL DIGGER) to steady your nerves or to get [...] 9:30 AM EDT Office Visit [facility] [address] [place] [address] Santiago Collado MD [address] [facility] [address] [place] [address] 04/07/2025 10:[address] [facility] Radiology [address], [address] [place] [address] 04/07/2025 11:20 AM EDT Office Visit [facility] Orthopaedic Surgery & Sports Medicine [address], [address] [place] [address] aLwrence Hayes MD [address] [place] [address] documented as of this encounter Visit Diagnoses Not on filedocumented in this encounter Additional Health Concerns Assessment Noted Time A fall risk assessment has been complete d for the patient 10/04/2023 8:38 AM EST A Body Mass Index follow-up plan has been documented for the patient 01/22/2025 4:22 PM EDT documented as of this encounter Care Teams Director Drug Safety Relationship Specialty Start Date End Date Renetta Pardo APRN [address] [place] [address] [address] [place] [address] PCP - General 09/09/23 02/16/25 documented as of this encounter
[2025-03-17 09:31] LABS: Hematocrit 37.1 % (42.0-52.0); Hemoglobin 11.7 g/dL (14.1-18.0); Immature Granulocytes % 0.4 %; Mean Corpuscular HGB Conc 31.5 g/dL (31.8-35.4); Mean Corpuscular Hemoglobin 28.7 pg (27.0-31.2); Mean Corpuscular Volume 91.2 fl (80-94); Nucleated Red Blood Cells % 0 %; Platelet Count 306 K/mm3 (142-424); Red Blood Count 4.07 M/mm3 (4.60-6.20); Red Cell Distribution Width-SD 44.5 fL; White Blood Count 5.6 K/mm3 (4.8-10.8)
[2025-03-17 09:40] LABS: Albumin Level 3.6 g/dl (3.5-5.0)
[2025-03-17 09:43] LABS: Bilirubin,Unconjugated 0.0 mg/dL (0.0-1.1); Blood Urea Nitrogen 21 mg/dl (9-20); Creatinine Clearance Estimated 170 mL/min (50-200); Creatinine,Serum 0.70 mg/dl (0.66-1.25); Estimated Glomerular Filt Rate 128 ml/min (>60); GFR (African American) 154 ML/MIN (>60); Total Protein,Serum 7.1 g/dl (6.3-8.2)
[2025-03-17 09:44] LABS: Alanine Aminotransferase 30 U/L (12-78); Alkaline Phosphatase 117 U/L (38-126); Aspartate Amino Transferase 32 U/L (17-59); Bilirubin,Direct 0.3 mg/dl (0.0-0.4); Bilirubin,Indirect 0.0 mg/dL (0.0-0.9); Bilirubin,Total 0.3 mg/dl (0.2-1.3); Creatine Kinase 136 U/L (55-170)
[2025-03-17 09:50] LABS: C-Reactive Protein 29.2 mg/L (0-4)
== END 2025-03-17 09:45 | disposition home or self-care (01) ==
LOC: INF 09:09
PROVIDERS: Visit Provider Student in an Organized Health Care Education/Training Program
DX: Z45.2 Encounter for adjustment and management of vascular access device (principal); R79.89 Other specified abnormal findings of blood chemistry
CPT/HCPCS: 36592; 80076; 82550; 82565; 84520; 85025; 86140; 96523

== ENCOUNTER 2025-03-24 12:28 | Outpatient (CLI) | payer MEDICAID, SELFPAY ==
--- OUTSIDE RECORDS SUMMARY | 2025-02-03 08:10 | XMS_ITS | Encounter Summary ---
Author Organization Healthcare Address [address] [place] [address] Care Team Providers Care Oil Well Services Superintendent Name Role Phone Renetta Pardo APRN Primary Care Provider +1 -[phone] Reason for Visit * Reason Comments Post-op Encounter Details Date Type Department Care Team (Late st Contact Info) Description 02/03/2025 8:10 AM EDT Office Visit [facility] Orthopaedic Surgery & Sports Medicine [address], 1st [address] [place] [address] Lawrence Hayes MD [address] [place] [address] Closed fracture of left tibial [...] any time in the past 12 m [facility], were you homeless or living [...] drink first t traci in the morning (EYE-PRINTING SPECIALIST) to steady your nerves or to [...] Orthopaedic Surgery and Sports Medicine Consult Pager: [phone] Service Pager: [phone] Cosigned by Lawrence Hayes MD at 02/03/2025 [...] Description 03/27/2025 9:30 AM EDT Office Visit [facility] [address] [facility] [place] [address] Santiago Collado MD [address] [facility] [address] [place] [address] 04/07/2025 10:45 AM EDT Appointment [facility] Radiology [address], 1st [place] [address] 04/07/2025 11:20 AM EDT Office Visit [facility] Orthopaedic Surgery & Sports Medicine [address], 1[address] [place] [address] Lawrence Hayes MD [address] [place] [address] documented as of this encounter [...] as of this encounter Care Teams Oil Well Services Superintendent Relationship Specialty Start Date End Date Renetta Pardo APRN [address] [place] [address] [place] [address] PCP - General 09/09/23 02/16/25 documented as of this encounter
--- OUTSIDE RECORDS SUMMARY | 2025-02-17 08:40 | XMS_ITS | Encounter Summary ---
Author Organization Healthcare Address [address] [place] [address] Care Team Providers Care Closing Machine Operator Name Role Phone Blaine Nava MD Primary Care Provider [phone] Encounter Details Date Type Department Care Team (Latest Contact Info) Description 02/17/2025 8:40 AM EDT - 02/17/2025 1:27 PM EDT [facility] [address] [place] [address] Closed fracture of left tibial [...] and Family Not on file 02/24/2025 Attends Je[employer] Witness Services Not on file 02/24 Active Member [...] any time in the past 12 m [facility], were you homeless or living in a correction (including now)? No 02/24/2025 CAGE ASSESSMENT Answer [...] drink first t traci in the morning (EYE-BEER BREWER) to steady your nerves or to get [...] specific directions only. Mix and deliver per institution/[facility] ility policy. 1 each 01/22/2025 5 enoxaparin [...] Description 03/27/2025 9:30 AM EDT Office Visit [facility] [address] [facility] [place] [address] Santiago Collado MD [address] [facility] [address] [place] [address] 04/07/2025 10:45 AM EDT Appointment [facility] Radiology [address] [place] [phone] 04/07/2025 11:20 AM EDT Office Visit [facility] Orthopaedic Surgery & Sports Medicine [address] [place] [address] Lawrence Hayes MD [address] [place] [address] documented as of this encounter [...] documented as of this encounter Care Teams Closing Machine Operator Relationship Specialty Start Date End Date Blaine Nava MD [address] [place] [address] [address] [place] [address] PCP - General 02/17/25 documented as of this encounter
--- OUTSIDE RECORDS SUMMARY | 2025-02-17 09:20 | XMS_ITS | Encounter Summary ---
Author Organization Healthcare Address [address] [place] [address] Care Team Providers Care Health Manager Name Role Phone Blaine Nava MD Primary Care Provider Reason for Referral * Imaging (Urgent) - Closed Specialty Diagnoses / Procedures Referred By Adalid wills Referred To Contact Radiology Diagnoses Tibial plateau fracture, left, closed, initial encounter Procedures CT Knee Left wo IV Contrast Stella Lobo APRN [address] [facility] [address] [place] [address] Phone: tel: fax: Referral ID Status Reason Start Date Expiration Date Visits Re quested Visits Authorized [id number] Closed 02/17/2025 08/19/2026 1 1 Reason for Visit * Reason Comments Post-op Encounter Details Date Type Department Care Team (Late st Contact Info) Description 02/17/2025 9:20 AM EDT [facility] [address] [place] [address] Lawrence Hayes MD [address] [place] [address] Tibial plateau fracture, left, closed, [...] any time in the past 12 m [facility], were you homeless or [...] drink first t traci in the morning (EYE-SLITTER CREASER SLOTTER OPERATOR) to steady your nerves or to [...] Description 03/27/2025 9:30 AM EDT Office Visit [facility] [address] [facility] [place] [address] Santiago Collado MD [address] [facility] [address] [place] [address] 04/07/2025 10:45 AM EDT Appointment [facility] Radiology [address] [place] [address] 04/07/2025 11:20 AM EDT Office Visit [facility]opa[facility] Surgery [facility] Medicine [address], [address] [place] [address] Lawrence Hayes MD [address] [facility] [address] [place] [address] documented as of this encounter Results * [...] 02/17/2025 2:39 PM us Stella N Lobo PERINATAL COORDINATOR IMG CT PROCEDURES Final Re sult * (ABNORMAL) C-Reactive Protein, Plasma (02/17/2025 11:00 AM EDT) CRP, Plasma 12.7(H) <=8.0 mg/L 02/17/2025 12:40 PM EDT [facility] Blood Venous blood specimen / Unknown Venipuncture / Unknown 02/17/2025 11:00 AM EDT 02/17/2025 11:00 AM EDT Narrative [facility] - 02/17/2025 12:40 PM EDT This CRP test is appropriate for assessment of infection, systemic inflammation and/or tissue injury. To assess cardiovascular disease risk order high sensitivity CRP (CRPH). us Stella Lobo APRN LAB BLOOD ORDERABLES Final Result Performing Organization Address [facility]/ZIP Co de Phone Number [facility] [address] [place] [address] * (ABNORMAL) Sedimentation Rate, Automated (02/17/2025 11:00 AM EDT) Pathologist [facility] Sedimentation Rate 20(H) <15 mm/hr 2024 12:47 PM EDT [facility] Blood Venous blood specimen / Unknown Venipuncture / Unknown 02/17/2025 11:00 AM EDT 02/17/2025 11:00 AM EDT us Stella Lobo APRN LAB BLOOD ORDERABLES Final Result [facility] [address] [place] [address] * (ABNORMAL) Comprehensive metabolic panel (02/17/2025 11:00 AM EDT) Glucose, Plasma 94 74 - 99 mg/dL 02/17/2025 12:40 PM EDT [facility] BUN, Plasma 13 7 - 21 mg/dL 02/17/2025 12:40 PM EDT [facility] Creatinine, Plasma 0.85 0.70 - 1.20 mg/dL 02/17/2025 12:40 PM EDT [facility] BUN/Creatinine Ratio 15 02/17/2025 12:40 PM EDT [facility] Sodium, Plasma 137 136 - 145 mmol/L 02/17/2025 12:40 PM EDT [facility] Potassium, Plasma 4.6 3.6 - 4.9 mmol/L 02/17/2025 12:40 PM EDT [facility] Chloride, Plasma 101 97 - 107 mmol/L 02/17/2025 12:40 PM EDT [facility] CO2, Plasma 25 22 - 29 mmol/L 02/17/2025 12:40 PM EDT [facility] Anion Gap 11 6 - 16 mmol/L 02/17/2025 12:40 PM EDT [facility] Total Calcium, Plasma 9.3 8.9 - 10.2 mg/dL 02/17/2025 12:40 PM EDT [facility] Total Protein 7.1 6.3 - 7.9 g/dL 02/17/2025 12:40 PM EDT [facility] Albumin, Plasma 4.2 3.5 - 5.2 g/dL 02/17/2025 12:40 PM EDT [facility] AST, Plasma 16 10 - 50 U/L 02/17/2025 12:40 PM EDT [facility] ALT, Plasma 28 10 - 50 U/L 02/17/2025 12:40 PM EDT [facility] Alkaline Phosphatase, Plasma 117(H) 40 - 115 U/L 02/17/2025 12:40 PM EDT [facility] Total Bilirubin, Plasma <0.2(L) 0.2 - 1.1 mg/dL 02/17/2025 12:40 PM EDT [facility] eGFRcr 116.2 mL/min/1.7 3m*2 02/17/2025 12:40 PM EDT [facility] Comment:Reported eGFRcr in m L/min/1.73m2 is based the CKD-EPI 2020 equation that does not use a race coefficient. Blood Venous blood specimen / Unknown Venipuncture / Unknown 02/17/2025 11:00 AM EDT 02/17/2025 11:00 AM EDT us Stella Lobo PERINATAL COORDINATOR LAB BLOOD ORDERABLES Final Result [facility] [address] [place] [address] * (ABNORMAL) CBC with Differential (02/17/2025 11:00 AM EDT) WBC Count 7.61 3.70 - 10.30 10*3/uL LAB HEMATOLOGY METHOD 02/17/2025 12:23 PM EDT [facility] RBC Count 4.26(L) 4.60 - 6.10 10*6/uL LAB HEMATOLOGY METHOD 02/17/2025 12:23 PM EDT [facility] HGB 12.5(L) 13.7 - 17.5 g/dL LAB HEMATOLOGY METHOD 02/17/2025 12:23 PM EDT [facility] HCT 39.1(L) 40.0 - 51.0 % LAB HEMATOLOGY METHOD 02/17/2025 12:23 PM EDT [facility] Platelet Count 330 155 - 369 10*3/uL LAB HEMATOLOGY METHOD 02/17/2025 12:23 PM EDT [facility] MCV 92 79 - 98 fL LAB HEMATOLOGY METHOD 02/17/2025 12:23 PM EDT [facility] MCH 29.3 26.0 - 32.0 pg LAB HEMATOLOGY METHOD 02/17/2025 12:23 PM EDT [facility] MCHC 32.0 30.7 - 35.5 g/dL LAB HEMATOLOGY METHOD 02/17/2025 12:23 PM EDT [facility] RDW 13.0 11.5 - 14.5 % LAB HEMATOLOGY METHOD 02/17/2025 12:23 PM EDT [facility] MPV 9.7 8.8 - 12.5 fL LAB HEMATOLOGY METHOD 02/17/2025 12:23 PM EDT [facility] nRBC 0.0 <=0.0 per 100 WBCs LAB HEMATOLOGY METHOD 02/17/2025 12:23 PM EDT [facility] Differential Type Automated LAB HEMATOLOGY METHOD 02/17/2025 12:23 PM EDT [facility] Neutrophils % 52 % LAB HEMATOLOGY METHOD 02/17/2025 12:23 PM EDT [facility] Lymphocytes % 33 % LAB HEMATOLOGY METHOD 02/17/2025 12:23 PM EDT [facility] Monocytes % 8 % LAB HEMATOLOGY METHOD 02/17/2025 12:23 PM EDT [facility] Eosinophils % 5 % LAB HEMATOLOGY METHOD 02/17/2025 12:23 PM EDT [facility] Basophils % 1 % LAB HEMATOLOGY METHOD 02/17/2025 12:23 PM EDT [facility] Immature Granulocytes % 1 % LAB HEMATOLOGY METHOD 02/17/2025 12:23 PM EDT [facility] Neutrophils Absolute 4.07 1.60 - 6.10 10*3/uL LAB HEMATOLOGY METHOD 02/17/2025 12:23 PM EDT [facility] Lymphocytes Absolute 2.50 1.20 - 3.90 10*3/uL LAB HEMATOLOGY METHOD 02/17/2025 12:23 PM EDT [facility] Monocytes Absolute 0.59 0.30 - 0.90 10*3/uL LAB HEMATOLOGY METHOD 02/17/2025 12:23 PM EDT [facility] Eosinophils Absolute 0.36 0.00 - 0.50 10*3/uL LAB HEMATOLOGY METHOD 02/17/2025 12:23 PM EDT [facility] Basophils Absolute 0.05 0.00 - 0.10 10*3/uL LAB HEMATOLOGY METHOD 02/17/2025 12:23 PM EDT [facility] Immature Granulocytes Absolute 0.04 0.00 - 0.06 10*3/uL LAB HEMATOLOGY METHOD 02/17/2025 12:23 PM EDT [facility] Blood Venous blood specimen / Unknown Venipuncture / Unknown 02/17/2025 11:00 AM EDT 02/17/2025 11:00 AM EDT Narrative [facility] - 02/17/2025 12:23 PM EDT Therapeutic decision making should be based on absolute values, rather than percentages. us Stella Lobo PERINATAL COORDINATOR LAB BLOOD ORDERABLES Final Result [facility] [address] [place] [address] documented in this encounter Visit Diagnoses Diagnosis [...] as of this encounter Care Teams Health Manager Relationship Specialty Start Date End Date Blaine Nava MD [address] [place] [address] #1 [address]1 [place] [id number] PCP - General 02/17/25 documented as of this encounter
--- OUTSIDE RECORDS SUMMARY | 2025-02-17 13:28 | XMS_ITS | Encounter Summary ---
Author Organization Healthcare Address [address] [place] [address] Care Team Providers Care Bulk Sausage Casing Tier Off Name Role Phone Blaine Nava MD Primary Care Provider [phone] Reason for Referral * Imaging (Urgent) - Closed Specialty Diagnoses / Procedures Referred By Contac t Referred To Contact Radiology Diagnoses Tibial plateau fracture, left, closed, initial encounter Procedures CT Knee Left wo IV Contrast Stella Brown APRN [address] [place] [address] Phone: tel: fax: Referral ID Status Reason Start Date Expiration Date Visits Re quested Visits Authorized [id number] Closed 02/17/2025 08/19/2026 1 1 Reason for Visit * Imaging (Urgent) - Closed Specialty Diagnoses / Procedures Referred By Contac t Referred To Contact Radiology Diagnoses Tibial plateau fracture, left, closed, initial encounter Procedures CT Knee Left wo IV Contrast Stella Brown APRN [address] [place] [address] Phone: tel: fax: Referral ID Status Reason Start Date Expiration Date Visits Re quested Visits Authorized [id number] Closed 02/17/2025 08/19/2026 1 1 Encounter Details Date Type Department Care Team (Latest Contact Info) Description 02/17/2025 1:28 PM EDT - 02/17/2025 11:59 PM EDT Hospital Encounter [facility] [address] [place] [address] Tibial plateau fracture, left, closed, initial encounter Discharge Disposition: Home or Self [...] and Family Not on file 02/24/2025 Attends [employer] Not on file 02/24 Active Member [...] any time in the past 12 m [facility], were you homeless or living in a detention (including now)? No 02/24/2025 CAGE ASSESSMENT Answer [...] drink first t traci in the morning (EYE-SPRAY CREW) to steady your nerves or to get rid of a hangover? 0 09/10/2023 CAGE Questionnaire Score 0 024 Utilities Answer Date Recorded In the past 12 months has th [employer], gas, oil, or water company threatened to [...] of Assessment Author 0 02/24/2025 10:59 AM EDT Anna Elam RN * Question Answer Date of Assessment Author Q1: How often do you have a drink containing alcohol? Never 02/24/2025 10:59 AM EDAnna Hdez RN Q2: How many drinks containing alcohol do you have on a typical day when you are drinking? Patient does not drink 02/24/2025 10:59 AM Anna Woodward RN Q3: How often do you have six or more drinks on one occasion? Never 02/24/2025 10:59 AM Anna Woodward RN * Calculated C-SSRS Risk Score (Lifetime/Recent) [...] Rodas RN 6. Suicidal Behavior (Lifetime) No 7:10 PM EDT Shelley Rodas RN documented [...] Mix and deliver per institution/fac ility policy. 1 each 01/22/2025 5 enoxaparin [...] 03/27/2025 9:30 AM EDT Office Visit [facility] [address] [place] [address] Santiago Collado MD [address] [facility] [address] [place] [address] 04/07/2025 10:45 AM EDT Appointment [facility] [address], [address] [place] [address] 04/07/2025 11:20 AM EDT Office Visit [facility] [address], [address] [place] [address] Lawrence Hayes MD [address] [place] [address] documented as of this encounter Procedures Procedure Name Priority Date/Time Associated Diagnosis Comments CT KNEE LEFT WO IV CONTRAST STAT 02/17/2025 1:58 PM EDT Tibial plateau fracture, left, closed, initial encounter documented in this encounter Results * CT Knee Left [...] Rogers on 02/17/2025 2:39 PM us Stella Brown CUSTOMER ADVISOR IMG CT PROCEDURES Final Re sult documented in this encounter Visit Diagnoses Diagnosis Tibial plateau fracture, left, closed, initial encounter [...] documented as of this encounter Care Teams Bulk Sausage Casing Tier Off Relationship Specialty Start Date End Date Blaine Nava MD [address] [place] [address] #1 #1 [place] [id number] PCP - General 02/17/25 documented as of this encounter
--- OUTSIDE RECORDS SUMMARY | 2025-02-21 09:35 | XMS_ITS | Encounter Summary ---
Author Organization Healthcare Address [address] [place] [address] Care Team Providers Care Solderer Electronic Name Role Phone Blaine Nava MD Primary Care Provider [phone] Reason for Visit * Auth/Cert (Routine) Specialty Diagnoses / Procedures Referred By Adalid t Referred To Contact Diagnoses Tibial plateau fracture, left, closed, initial encounter Surgical site infection Tibial plateau fracture, left, closed, initial encounter [S82.142A] Surgical site infection [T81.49XA] Procedures ND DRAIN LOWER LEG DEEP ABSC/HEMATOMA INCISION AND DRAINAGE, LOWER EXTREMITY Lawrence Hayes MD [address] [address] Phone: tel: fax: [facility] [address] [place] [address] Phone: tel: Referral ID Status Reason Start Date Expiration Date Visits Re quested Visits Authorized [id number] 1 1 Encounter Details Date Type Department Care Team (Latest Contact Info) Description 02/21/2025 9:35 AM EDT - 02/24/2025 8:01 PM EDT Hospital Encounter [facility] P[facility] 9 T2 UNI [address] [place] [address] Lawrence Hayes MD [id number] [place] [address] Cellulitis of left lower extremity [...] and Family Not on file 02/24/2025 Attends Scientology Services Not on file 07/14 /2025 Active [...] in the past 12 m [facility], were you homeless or living in a alf (including now)? No 02/24/2025 CAGE ASSESSMENT Answer [...] first t traci in the morning (EYE-SERVICE DELIVERY MANAGER) to steady your nerves or to get rid of a hangover? 0 09/10/2023 CAGE Questionnaire Score 0 024 Utilities Answer Date Recorded In the past 12 months has th e Fluent Home, gas, oil, or water company threatened to [...] note were not included. 798 Narcan Nasal Thomas: Rescue Guide for Opioid Overdose Step 1 [...] for use in the nose. * [facility] Adrienne Inman - 02/24/2025 4:04 PM [...] of Drug Diversion Investigators (NADDI): http://rxdrugdropbox.org/ ?? [place] Office of Drug Control Policy: http://odcp.ky.gov/Prescription+Drug+Drop+Box+Sites.htm Are [...] that tracks prescriptions of controlled substances in [place]. The TIFFANY report tells your doctor if [...] or your doctor may then call the [place] Drug Enforcement and Professional Practices Branch at .This will start an investigation of the error. * Rosaura RushDILLON - Adrienne Inman - 02/24/2025 4:03 PM EDT Images from the original note were not included. [address] * Rosaura RushDILLON - Adrienne Inman - [...] your house or a medical facility. The pillowcase cleaner/social sciences chair will setthat up based on your [...] or during weekends/ holidays, call the paging tin whiz machine operator at . Ask forthe infectious disease fellow regional facilities specialist. Call the clinic if you have [...] of your leg. This is also called ?Lqlwqm-on-Ddm Weight Bearing,? ?Toe-Touch Weight Bearing,? or ?Foot-Flat [...] heal and have less pain. * Ros[facility] - Adrienne Inman - 02/24/2025 4:02 [...] thoroughly. Use soap and water or hand java lead architect and wear gloves before touching the PICC [...] them before you flush the line or supervisor receiving and processing fluids or medicines. Avoid hard physical work. [...] from the original note were not included. [address]65 Preventing a Surgical Site Infection A risk [...] of infection. ?? Controlled body temperature. A tictu-fqmd-ynwxrl temperature during or after surgery prevents oxygen [...] and water or with an alcohol-based hand java lead architect before and after caring for you. Don?t [...] away. Last Reviewed Date: 2024 00:00:00 ?? [id number] The [employer]. All rights reserved. This information is not intended as a substitute for professional medical care. Always follow your healthcare professional's instructions. * Discharge Summary - Sushil Lea MD - 02/24/2025 3:48 PM EDT Hospitalization Admit Date/Time: 02/21/2025 9:35 AM Admitting Attending: Lawrence Hayes Discharge Date: 02/24/2025 Discharge Attending Physician: Lawrence Hayes MD PCP name and Address: Blaine Nava MD [address] [place], [place] [address] [address] [address] Referring provider name and address: No referring [...] medications were sent to [facility] [address] [facility] [address], [facility] [address] cefTRIAXone 1 g reconstituted solution DAPTOmycin injection [...] Center 2025 7:50 AM Stella Brown APRN [facility] 2025 10:30 AM Santiago Escalante MD [id number] [...] discharge. Sushil Lea MD Orthopaedic Surgery PGY-1 [facility] Orthopaedic Trauma Service Pager: [phone] Orthopaedic Recon/Spine/Foot and Ankle Service Pager: [phone] Personal Pager: [phone] Cosigned by Lawrence Hayes [...] 1030AM WEEK 5 FOLLOWUP: 03/27/2025, 0930AM at [address] [place] [address] (Select Option 3 for IV Antibiotic / PICC line related issues) All questions regarding outpatient parenteral antimicrobials after discharge should be directed to the OPAT nurse navigator at (Select Option 3 for IV Antibiotics/PICC Issues) between 8am-5pm. After 5 pm, or during weekends/ holidays, please call the paging tin whiz machine operator at to reach the on-call ID fellow. PLEASE NOTIFY THE ID CONSULTING SERVICE OF ANY QUESTIONS REGARDING THESE RECOMMENDATIONS OR WITH ANY ANTIMICROBIAL CHANGES THAT OCCUR AFTER THE DATE/TIME OF THIS OPAT INTAKE NOTE. * Progress Notes - Anna Elam RN - 02/24/2025 11:03 AM EDT Case Management Adult Initial Progress Note Panda Machado 34 y.o. male CSN: [id number] Admission: 02/21/2025 9:35 AM Primary Problem: Surgical site infection Reconciler reviewed chart and spoke with patient to complete this Initial Case Management Assessment. PCP: Blaine Nava MD Emergency Contact: Extended Emergency Contact Information Primary Emergency Contact: Hayley Buenrostro Address: [address] [place] [address] Mobile Relation: Significant Other Preferred language: [place] Flight Engineer Instructor needed? No Secondary Emergency Contact: Jenny Buenrostro Address: [address] [place] [address] Mobile Relation: Mother Insurance: Primary Visit Coverage Payer Plan Sponsor Code Group Number Group Name PAS[employer]ORT MEDICAID MOLINA PASSPORT MOLINA MEDICAID Primary Visit Coverage Subscriber Subscriber ID Subscriber Name Subscriber N Subscriber Address [id number] PANDA MACHADO [id number] [place] [address] Patient information: Primary Caregiver: Self Support System: Immediate family Daily Living Activities: Functional Status: Independent Living Arrangements: Spouse/Significant other, Children Type of Residence: Private residence, Single Level [address] [place] [address] Smoker in the Home?: Yes Current DME: [...] DME Provider: Rajesh Living Will/Advance Directive/Power of Runner Worker /Guardian: Unable to assess: No Have [...] Rajesh today. [facility] dressing [facility] and labs and was agreeable to continue receiving care there. CM will send orders when they are available. Pt stated he lives with his and two children. His can provide assistance and transportation. Pt is unemployed and meets 300% FPG. CM will continue to assist with discharge POC. [facility] [phone] [phone] Update: Final ID recs have been placed and standard OPAT approved. Rajesh will complete teaching and deliver ABX to bedside around 5 PM today. [facility] Infusion center will call pt [...] 10 mg/kg (Adjusted), Intravenous, q24h, Stella Brown, CLINICAL INFORMATICS PHYSICIAN, Last Rate: 264 mL/hr at 02/23/252056, 1,100 [...] tibial plateau fluid (op cx?) - NCC 59150 (PMN 98%); RBC 240K. GS - GPC. [...] surgical site pain/swelling, erythema. Pt seen at [facility] where CT suggested L medial knee [...] Tobacco: Active smoker ETOH: Denies DRUG ALLERGIES: Gary RECOMMENDATIONS: Re: chronic LEFT tibial SSI, implant [...] abx therapy. For now, while inpatient at [facility] Daptomycin 8-10mg/kg IV q24h as primary [...] in order to complete registration paperwork.) [facility] (Infectious Diseases Clinic) [address] [place] [address] PARALEGAL SPECIALIST: . FAX: ID [facility] and Joint Consult [...] -- Annamaria Romero MD Orthopaedic Surgery PGY-1 [facility] Orthopaedic Trauma Service Pager: [phone] Orthopaedic Recon/Spine/Foot and Ankle Service Pager: [phone] Cosigned by Lawrence Hayes MD at 02/26/2025 [...] television smartphone * Care Plan - Cosmo Tralyor RN - 02/23/2025 7:16 PM EDT Problem: [...] when out of bed 02/23/20251913 by Cosmo Traylro RN Flowsheets (Taken 02/23/20251913) Safety Promotion/Fall Prevention: [...] Edited by: García Shepherd MD at 02/21/2025 4471 - Pain control: MMPC - Diet: regular [...] required Carolin Payan MD Orthopedic Surgery PGY-1 [facility] Cosigned by Lawrence Hayes MD at [...] session. 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 Prior Level of Function Receives Help From: No assist required prior to admission Level of Mobility: Ambulatory- community Mobility [place]: Independent gait without device History of Falls: [...] Mobility Exam: Supine to Sit Level of [place]: Stand-by assist Physical/Nonphysical Assist: Verbal Cues Bed Mobility Exam: Sit to Supine Level of [place]: Stand-by assist Physical/Nonphysical Assist: Verbal Cues Transfers Transfer Interventions: Pt completed a sit to stand transfer with SBA and min cues for safety and maintaing NWB of LLE with good carry over. For stand to sit cues provided for reaching back for surface, extending LLE and eccentric control wtih good carry over. Transfer Exam: Sit to stand Level of [place]: Stand-by assist Physical/Nonphysical Assist: Verbal Cues Assistive Device: Walker, rolling Transfer Exam: Stand to Sit Level of [place]: Stand-by assist Physical/Nonphysical Assist: Verbal Cues Assistive [...] uses. Standardized Assessments Standardized Assessments Standardized Assessments: [facility] 6-Clicks Mobility Assessment [facility] 6-Clicks Mobility Assessment Difficulty patient has turning [...] railing?: A little [facility] 6-Clicks Mobility Assessment Total : 18 Assessment [...] a.m. 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 Prior Level of Function Receives Help From: No assist required prior to admission Level of Mobility: Ambulatory- community Mobility [place]: Independent gait without device History of Falls: [...] Mobility Bed Mobility Exam: Scooting/Bridging Level of [place]: Stand-by assist Physical/Nonphysical Assist: Verbal Cues Bed Mobility Exam: Supine to Sit Level of [place]: Stand-by assist Physical/Nonphysical Assist: Verbal Cues Bed Mobility Exam: Sit to Supine Level of [place]: Stand-by assist Physical/Nonphysical Assist: Verbal Cues Transfers Transfer Exam: Sit to stand Level of [place]: Stand-by assist Physical/Nonphysical Assist: Verbal Cues Assistive Device: Walker, rolling Transfer Exam: Stand to Sit Level of [place]: Stand-by assist Physical/Nonphysical Assist: Verbal Cues Assistive [...] Edited by: García Shepherd MD at 02/21/2025 9687 - Pain control: MMPC - Diet: regular [...] required Carolin Payan MD Orthopedic Surgery PGY-1 [facility] Cosigned by Lawrence Hayes MD at [...] Escalante MD Consult ordered by: Stella Brown, CLINICAL INFORMATICS PHYSICIAN Reason for consult: L tibial plateau ORIF [...] surgical site pain/swelling, erythema. Pt seen at [facility] where CT suggested L medial knee [...] Tobacco: Active smoker ETOH: Denies DRUG ALLERGIES: Gary ALLERGIES: NKDA. MEDS: ABX: Daptomycin 02/21/2025 - [...] PRN, Goran Ty CRNA, 10 mg at 614491 oxyCODONE (Roxicodone) immediate release tablet 5 mg, [...] mL, 10 mL, Intravenous, PRN, Stella Brown, CLINICAL INFORMATICS PHYSICIAN SOCIAL HISTORY: As above. Otherwise reviewed and [...] tibial plateau fluid (op cx?) - NCC 19493 (PMN 98%); RBC 240K. GS - GPC. [...] lower leg. [facility] shaft [...] surgical site pain/swelling, erythema. Pt seen at [facility] where CT suggested L medial knee [...] Tobacco: Active smoker ETOH: Denies DRUG ALLERGIES: Gary RECOMMENDATIONS: Re: chronic LEFT tibial SSI, implant [...] abx therapy. For now, while inpatient at [facility], pending the above: Continue empiric, broad [...] PM EDT Operative Note Date: 02/21/25 Location: [place] OR Name: Panda Machado, : 1990, Diagnoses: [...] available for all parts of the procedure Communication Specialist(s): * García Shepherd MD - Resident - [...] No. SYNTHECURE SYNTHETIC CALCIUM SULFATE 10CC - [id number] Implanted Specimen: Specimens ID Source Frozen? A [...] also visualized and removed with a needle route salesman and driver. Cultures from the lateral wound were [...] Travel History: none Immunizations Not reviewed Allergies Gary Medications Current Medications[1] Objective Review of Systems [...] 98%. Results Review {Vanishing Link Review Results :[id number] I have reviewed the latest lab and [...] Date INCISION AND DRAINAGE, LEG Left 01/20/2025 ([facility]) INCISION AND DRAINAGE, LOWER EXTREMITY (Left: Leg Lower) KNEE SURGERY Left 01/18/2025 ([facility]) INCISION AND DRAINAGE, LOWER EXTREMITY (Left: Leg Lower) LEG SURGERY Left ERIKA NAIL IM RODDING Left 09/10/2024 ([facility]) INSERTION, INTRAMEDULLARY VICK, FEMUR (Left: Leg Upper) ORIF TIBIA FRACTURE Left 09/15/2023 ([facility]) ORIF, FRACTURE, TIBIA, PLATEAU (Left: Leg Lower) ORIF TIBIAL PLATEU FRACTURE Left 01/01/2025 ([facility]) ORIF, FRACTURE, TIBIA, PLATEAU (Left: Knee) ORTHOPEDIC SURGERY 09/06/2022 Had 4 other similar surgeries [1] Allergies Allergen Reactions Gary Hives [1] No current facility-administered medications for [...] card, photo ID, along with power of tube cleaning operator, guardianship or advanced directives if applicable Do [...] Description 03/27/2025 9:30 AM EDT Office Visit [id number] [place] [address] Santiago Escalante MD [address] [facility] [address] [place] [address] 04/07/2025 10:45 AM EDT Appointment [facility] [address] [place] [address] 04/07/2025 11:20 AM EDT Office Visit [facility] Orthopaedic Surgery & Sports Medicine [address] [place] [address] Lawrence Hayes MD [address] [place] [address] Pending Results Name Type Priority Associated Diagnoses [...] left, closed, initial encounter Surgical site infection ND DRAIN LOWER LEG DEEP ABSC/HEMATOMA 02/21/2025 2:09 [...] - 99 mg/dL 02/24/2025 7:37 AM EDT [facility] BUN, Plasma 16 7 - 21 mg/dL 02/24/2025 7:37 AM EDT [facility] Creatinine, Plasma 0.89 0.70 - 1.20 mg/dL 02/24/2025 7:37 AM EDT [facility] BUN/Creatinine Ratio 18 02/24/2025 7:37 AM EDT [facility] Sodium, Plasma 137 136 - 145 mmol/L 02/24/2025 7:37 AM EDT [facility] Potassium, Plasma 4.6 3.6 - 4.9 mmol/L 02/24/2025 7:37 AM EDT [facility] Chloride, Plasma 101 97 - 107 mmol/L 02/24/2025 7:37 AM EDT [facility] CO2, Plasma 26 22 - 29 mmol/L 02/24/2025 7:37 AM EDT [facility] Anion Gap 10 6 - 16 mmol/L 02/24/2025 7:37 AM EDT [facility] Total Calcium, Plasma 9.2 8.9 - 10.2 mg/dL 02/24/2025 7:37 AM EDT [facility] eGFRcr 114.6 mL/min/1.7 3m*2 02/24/2025 7:37 AM EDT [facility] Comment:Reported eGFRcr in m L/min/1.73m2 is based the CKD-EPI 2020 equation that does not use a race coefficient. Blood Venous blood specimen / Unknown Venipuncture / Unknown 02/24/2025 7:04 AM EDT 02/24/2025 7:10 AM EDT us Lawrence Hayes MD LAB BLOOD ORDERABLES Final Re sult [facility] [address] [place] [address] * (ABNORMAL) Basic metabolic panel (02/22/2025 2:24 AM EDT) Glucose, Plasma 150(H) 74 - 99 mg/dL 02/22/2025 2:56 AM EDT [facility] BUN, Plasma 20 7 - 21 mg/dL 02/22/2025 2:56 AM EDT [facility] Creatinine, Plasma 0.98 0.70 - 1.20 mg/dL 02/22/2025 2:56 AM EDT [facility] BUN/Creatinine Ratio 20 02/22/2025 2:56 AM EDT [facility] Sodium, Plasma 138 136 - 145 mmol/L 02/22/2025 2:56 AM EDT [facility] Potassium, Plasma 5.2(H) 3.6 - 4.9 mmol/L 02/22/2025 2:56 AM EDT [facility] Chloride, Plasma 101 97 - 107 mmol/L 02/22/2025 2:56 AM EDT [facility] CO2, Plasma 25 22 - 29 mmol/L 02/22/2025 2:56 AM EDT [facility] Anion Gap 12 6 - 16 mmol/L 02/22/2025 2:56 AM EDT [facility] Total Calcium, Plasma 9.2 8.9 - 10.2 mg/dL 02/22/2025 2:56 AM EDT [facility] eGFRcr 103.1 mL/min/1.7 3m*2 02/22/2025 2:56 AM EDT [facility] Comment:Reported eGFRcr in m L/min/1.73m2 is based the CKD-EPI 2020 equation that does not use a race coefficient. Blood Venous blood specimen / Unknown Venipuncture / Unknown 02/22/2025 2:24 AM EDT 02/22/2025 2:28 AM EDT us Lawrence Hayes MD LAB BLOOD ORDERABLES Final Re sult [facility] [address] [place] [address] * (ABNORMAL) CBC (02/22/2025 2:24 AM EDT) WBC Count 10.82(H) 3.70 - 10.30 10*3/uL LAB HEMATOLOGY METHOD 02/22/2025 2:36 AM EDT [facility] RBC Count 3.92(L) 4.60 - 6.10 10*6/uL LAB HEMATOLOGY METHOD 02/22/2025 2:36 AM EDT [facility] HGB 11.9(L) 13.7 - 17.5 g/dL LAB HEMATOLOGY METHOD 02/22/2025 2:36 AM EDT [facility] HCT 35.5(L) 40.0 - 51.0 % LAB HEMATOLOGY METHOD 02/22/2025 2:36 AM EDT [facility] Platelet Count 296 155 - 369 10*3/uL LAB HEMATOLOGY METHOD 02/22/2025 2:36 AM EDT [facility] MCV 91 79 - 98 fL LAB HEMATOLOGY METHOD 02/22/2025 2:36 AM EDT [facility] MCH 30.4 26.0 - 32.0 pg LAB HEMATOLOGY METHOD 02/22/2025 2:36 AM EDT [facility] MCHC 33.5 30.7 - 35.5 g/dL LAB HEMATOLOGY METHOD 02/22/2025 2:36 AM EDT [facility] RDW 12.9 11.5 - 14.5 % LAB HEMATOLOGY METHOD 02/22/2025 2:36 AM EDT [facility] MPV 9.6 8.8 - 12.5 fL LAB HEMATOLOGY METHOD 02/22/2025 2:36 AM EDT [facility] nRBC 0.0 <=0.0 per 100 WBCs LAB HEMATOLOGY METHOD 02/22/2025 2:36 AM EDT [facility] Blood Venous blood specimen / Unknown Venipuncture / Unknown 02/22/2025 2:24 AM EDT 02/22/2025 2:28 AM EDT us Lawrence Hayes MD LAB BLOOD ORDERABLES Final Re sult [facility] [address] [place] [address] * Multi Drug Resistance Test (02/21/2025 6:24 PM EDT) Culture No growth at day 1 02/22/2025 8:30 PM EDT [facility] Swab (Nares and Janeth Rectal) Non-blood Collection / Unknown 02/21/2025 6:24 PM EDT 02/21/2025 6:56 PM EDT Narrative [facility] - 02/22/2025 8:30 PM EDT This test was developed and its performance characteristics determined by the [facility]. Although the media is FDA-approved, it is not FDA-approved for all specimen types submitted. The FDA has determined that such clearance or approval is not necessary. This test is used for surveillance purposes. It should not be regarded as investigational or for research. The [facility] is certified under the Clinical Laboratory Improvement Amendments of 1988 (CLIA-88) as qualified to perform high complexity clinical laboratory testing. Lawrence Hayes MD LAB MICROBIOLOGY - GENERAL OR DERABLES Final Result Performing Organization Address [facility] de Phone Number [facility] [address] [place] [address] * Fungal Culture, Tissue and SYEDA (02/21/2025 3:14 PM EDT) Culture Reading Mycological 4 Weeks No Fungal Growth at 4 Weeks 03/24/2025 9:41 AM EDT [facility] SYEDA No fungal elements seen 03/24/2025 9:41 AM EDT [facility] Tissue Structure of left knee region / Unknown 02/21/2025 3:14 PM EDT 02/21/2025 4:40 PM EDT Comment:Pre-op diagnosis: Tibial plateau fracture, left, closed, initial encounter [S82.142A] Surgical site infection [T81.49XA] Lawrence Hayes MD LAB MICROBIOLOGY - GENERAL OR DERABLES Final Result Performing Organization Address [facility] Co de Phone Number [facility] [address] [place] [address] * Tissue Culture and Gram Stain (02/21/2025 3:14 PM EDT) Culture No growth at day 4 2024 2:36 PM EDT [facility] Gram Stain Result Rare Polymorphonuclear leukocytes 02/25/2025 2:36 PM EDT [facility] Gram Stain Result No organisms seen 02/25/2025 2:36 PM EDT [facility] Tissue Structure of left knee region / Unknown 02/21/2025 3:14 PM EDT 02/21/2025 4:40 PM EDT Comment:Pre-op diagnosis: Tibial plateau fracture, left, closed, initial encounter [S82.142A] Surgical site infection [T81.49XA] Lawrence Hayes MD LAB MICROBIOLOGY - GENERAL OR DERABLES Final Result Performing Organization Address [facility] de Phone Number [facility] [address] [place] [address] * Anaerobic Culture (02/21/2025 3:14 PM EDT) Culture No growth at day 4 02/28/2025 12:46 PM EDT [facility] Tissue Structure of left knee region / Unknown 02/21/2025 3:14 PM EDT 02/21/2025 4:40 PM EDT Comment:Pre-op diagnosis: Tibial plateau fracture, left, closed, initial encounter [S82.142A] Surgical site infection [T81.49XA] Lawrence Hayes MD LAB MICROBIOLOGY - GENERAL OR DERABLES Final Result Performing Organization Address [facility] [place] [address] * FL Less than 1 Hour Intraoperative (02/21/2025 3:00 PM EDT) Narrative IMAGING - 02/21/2025 5:00 PM EDT Images were obtained for surgical purposes. See Lawrence Hayes's surgical note in the patient's chart for the findings. Lawrence Hayes MD IMG FLUOROSCOPY PROCEDURES Fi nal Result Performing Organization Address [facility] de Phone Number IMAGING * Fungal Culture, Tissue and SYEDA (02/21/2025 3:00 PM EDT) Culture Reading Mycological 4 Weeks No Fungal Growth at 4 Weeks 03/24/2025 9:41 AM EDT [facility] SYEDA No fungal elements seen 03/24/2025 9:41 AM EDT [facility] Tissue Structure of left knee region / Unknown 02/21/2025 3:00 PM EDT 02/21/2025 4:41 PM EDT Comment:Pre-op diagnosis: Tibial plateau fracture, left, closed, initial encounter [S82.142A] Surgical site infection [T81.49XA] us Lawrence Hayes MD LAB MICROBIOLOGY - GENERAL OR DERABLES Final Result [facility] [address] [place] [address] * (ABNORMAL) Tissue Culture and Gram Stain (02/21/2025 3:00 PM EDT) Culture 2+ Klebsiella pneumoniae(A) JOVANI 02/25/2025 2:52 PM EDT [facility] LAB Comment: This isolate has been identified using the FDA Approved [employer] [place] System The organism value for this result has been updated. These results have been appended to the previously preliminary verified report. Edited result: Previously reported as Gram Negative Vick on 02/23/2025 at 0758 EDT. Culture 2+ Corynebacterium amycolatum(A) JOVANI 02/25/2025 2:52 PM EDT [facility] Comment: This isolate has been identified using the FDA Approved [employer] System The organism value for this result has been updated. These results have been appended to the previously preliminary verified report. Culture 2+ Eikenella corrodens(A) JOVANI 02/25/2025 2:52 PM EDT [facility] Comment: This isolate has been identified using the FDA Approved [employer] [place] System The organism value for this result has been updated. These results have been appended to the previously preliminary verified report. Culture 1+ Haemophilus haemolyticus(A) JOVANI 02/25/2025 2:52 PM EDT [facility] Comment: This isolate has been identified using the FDA Approved [employer] [place] System The organism value for this result has been updated. These results have been appended to the previously preliminary verified report. Gram Stain Result Few Polymorphonuclear leukocytes 02/25/2025 2:52 PM EDT [facility] Gram Stain Result No organisms seen 02/25/2025 2:52 PM EDT [facility] Tissue Structure of left [...] MICROBIOLOGY - GENERAL OR DERABLES Final Result [facility] [address] [place] [address] * Anaerobic Culture (02/21/2025 3:00 PM EDT) Culture Mixed aerobic and anaerobic sherley 02/26/2025 8:03 AM EDT [facility] Tissue Structure of left knee region / Unknown 02/21/2025 3:00 PM EDT 02/21/2025 4:41 PM EDT Comment:Pre-op diagnosis: Tibial plateau fracture, left, closed, initial encounter [S82.142A] Surgical site infection [T81.49XA] us Lawrence Hayes MD LAB MICROBIOLOGY - GENERAL OR DERABLES Final Result Performing Organization Address [facility] Co de Phone Number [facility] [address] [place] [address] * (ABNORMAL) POCT glucose meter (02/21/2025 11:50 AM EDT) [facility] POCT Glucose 108(H) 74 - 99 mg/dL 02/21/2025 11:51 AM EDT [facility] Comment:Accuracy of a glucos e [...] for testing. Comment 02/21/2025 11:51 AM EDT [facility] Control Systems Designer ID Harvey Hernandez 02/22/20 11:51 AM EDT [facility] Device ID [id number] 02/21/2025 11:51 AM EDT [facility] Specimen Type POC Capillary 02/21/2025 11:51 AM EDT [facility] Blood Capillary blood specimen / Unknown 02/21/2025 11:50 AM EDT 02/21/2025 11:51 AM EDT us Lawrence Hayes MD LAB POINT OF CARE TE ST DOCKED DEVICE UNSOLICITED RESULTS Final Result Performing Organization Address [facility] Co de Phone Number [facility] [address] [place] [address] * Creatine Kinase (CK), Total (02/21/2025 11:43 AM EDT) [facility] Creatine Kinase, Plasma 74 49 - 320 U/L 02/21/2025 5:45 PM EDT [facility] Blood Venous blood specimen / Unknown Venipuncture / Unknown 02/21/2025 11:43 AM EDT 02/21/2025 11:57 AM EDT us Stellamarie Brown APRN LAB BLOOD ORDERABLES Final Result Performing Organization Address [facility]/ZIP Co de Phone Number [facility] [address] [place] [address] * Type and screen (02/21/2025 11:43 AM EDT) ABO/Rh A Positive 02/21/2025 11:33 AM EDT [facility] Antibody Screen Negative 02/21/2025 11:33 AM EDT [facility] Specimen Expiration 02/24/2025 23:59 02/21/2025 11:33 AM EDT [facility] B[facility] Blood Venous blood specimen / Unknown Venipuncture / Unknown 02/21/2025 11:43 AM EDT 02/21/2025 11:54 AM EDT us Stella Brown APRN LAB BLOOD BANK TEST ORDERA BLES Final Result Performing Organization Address [facility] de Phone Number BLOOD BANK [address] [place] [address] * Protime-INR (02/21/2025 11:43 AM EDT) Prothrombin Time 13.6 12.0 - 14.3 sec LAB COAGULATION METHOD 02/21/2025 12:35 PM EDT [facility] INR 1.0 0.9 - 1.1 LAB COAGULATION METHOD 02/21/2025 12:35 PM EDT [facility] Blood Venous blood specimen / Unknown Venipuncture / Unknown 02/21/2025 11:43 AM EDT 02/21/2025 11:57 AM EDT Narrative [facility] - 02/21/2025 12:35 PM [...] recurrent LA INR 2.5 to 3.5 us Stella N Kevin MALCOLM LAB BLOOD ORDERABLES Final Result [facility] [address] [place] [address] * (ABNORMAL) Basic Metabolic Panel, Plasma (02/21/2025 11:43 AM EDT) Glucose, Plasma 101(H) 74 - 99 mg/dL 02/21/2025 12:29 PM EDT [facility] BUN, Plasma 12 7 - 21 mg/dL 02/21/2025 12:29 PM EDT [facility] Creatinine, Plasma 0.79 0.70 - 1.20 mg/dL 02/21/2025 12:29 PM EDT [facility] BUN/Creatinine Ratio 15 02/21/2025 12:29 PM EDT [facility] Sodium, Plasma 138 136 - 145 mmol/L 02/21/2025 12:29 PM EDT [facility] Potassium, Plasma 4.2 3.6 - 4.9 mmol/L 02/21/2025 12:29 PM EDT [facility] Chloride, Plasma 102 97 - 107 mmol/L 02/21/2025 12:29 PM EDT [facility] CO2, Plasma 23 22 - 29 mmol/L 02/21/2025 12:29 PM EDT [facility] Anion Gap 13 6 - 16 mmol/L 02/21/2025 12:29 PM EDT [facility] Total Calcium, Plasma 9.3 8.9 - 10.2 mg/dL 02/21/2025 12:29 PM EDT [facility] eGFRcr 118.8 mL/min/1.7 3m*2 02/21/2025 12:29 PM EDT [facility] Comment:Reported eGFRcr in m L/min/1.73m2 is based the CKD-EPI 2020 equation that does not use a race coefficient. Blood Venous blood specimen / Unknown Venipuncture / Unknown 02/21/2025 11:43 AM EDT 02/21/2025 11:57 AM EDT us Stella Brown APRN LAB BLOOD ORDERABLES Final Result [facility] [address] [place] [address] * (ABNORMAL) CBC and Differential (02/21/2025 11:43 AM EDT) WBC Count 9.14 3.70 - 10.30 10*3/uL LAB HEMATOLOGY METHOD 02/21/2025 12:09 PM EDT [facility] RBC Count 4.18(L) 4.60 - 6.10 10*6/uL LAB HEMATOLOGY METHOD 02/21/2025 12:09 PM EDT [facility] HGB 12.6(L) 13.7 - 17.5 g/dL LAB HEMATOLOGY METHOD 02/21/2025 12:09 PM EDT [facility] HCT 37.8(L) 40.0 - 51.0 % LAB HEMATOLOGY METHOD 02/21/2025 12:09 PM EDT [facility] Platelet Count 298 155 - 369 10*3/uL LAB HEMATOLOGY METHOD 02/21/2025 12:09 PM EDT [facility] MCV 90 79 - 98 fL LAB HEMATOLOGY METHOD 02/21/2025 12:09 PM EDT [facility] MCH 30.1 26.0 - 32.0 pg LAB HEMATOLOGY METHOD 02/21/2025 12:09 PM EDT [facility] MCHC 33.3 30.7 - 35.5 g/dL LAB HEMATOLOGY METHOD 02/21/2025 12:09 PM EDT [facility] RDW 13.2 11.5 - 14.5 % LAB HEMATOLOGY METHOD 02/21/2025 12:09 PM EDT [facility] MPV 9.5 8.8 - 12.5 fL LAB HEMATOLOGY METHOD 02/21/2025 12:09 PM EDT [facility] nRBC 0.0 <=0.0 per 100 WBCs LAB HEMATOLOGY METHOD 02/21/2025 12:09 PM EDT [facility] Differential Type Automated LAB HEMATOLOGY METHOD 02/21/2025 12:09 PM EDT [facility] Neutrophils % 60 % LAB HEMATOLOGY METHOD 02/21/2025 12:09 PM EDT [facility] Lymphocytes % 31 % LAB HEMATOLOGY METHOD 02/21/2025 12:09 PM EDT [facility] Monocytes % 7 % LAB HEMATOLOGY METHOD 02/21/2025 12:09 PM EDT [facility] Eosinophils % 2 % LAB HEMATOLOGY METHOD 02/21/2025 12:09 PM EDT [facility] Basophils % 0 % LAB HEMATOLOGY METHOD 02/21/2025 12:09 PM EDT [facility] Immature Granulocytes % 0 % LAB HEMATOLOGY METHOD 02/21/2025 12:09 PM EDT [facility] Neutrophils Absolute 5.37 1.60 - 6.10 10*3/uL LAB HEMATOLOGY METHOD 02/21/2025 12:09 PM EDT [facility] Lymphocytes Absolute 2.86 1.20 - 3.90 10*3/uL LAB HEMATOLOGY METHOD 02/21/2025 12:09 PM EDT [facility] Monocytes Absolute 0.65 0.30 - 0.90 10*3/uL LAB HEMATOLOGY METHOD 02/21/2025 12:09 PM EDT [facility] Eosinophils Absolute 0.18 0.00 - 0.50 10*3/uL LAB HEMATOLOGY METHOD 02/21/2025 12:09 PM EDT [facility] Basophils Absolute 0.04 0.00 - 0.10 10*3/uL LAB HEMATOLOGY METHOD 02/21/2025 12:09 PM EDT [facility] Immature Granulocytes Absolute 0.04 0.00 - 0.06 10*3/uL LAB HEMATOLOGY METHOD 02/21/2025 12:09 PM EDT [facility] Blood Venous blood specimen / Unknown Venipuncture / Unknown 02/21/2025 11:43 AM EDT 02/21/2025 11:59 AM EDT [facility] - 02/21/2025 12:09 PM EDT Therapeutic decision making should be based on absolute values, rather than percentages. us Stella Brown CLINICAL INFORMATICS PHYSICIAN LAB BLOOD ORDERABLES Final Result [facility] [address] [place] [address] documented in this encounter Visit Diagnoses Diagnosis [...] on Mon02/22/25 at 1000, Until Discontinued, Routine Given 02/24/2025 [...] PRN, Starting on 02/24/25 at 0437, Until Mon02/24/25 at 2202, Routine, Recovery(Phase II-Outpatient)/On Unit(Inpatient), moderate pain Given 02/24/2025 7:27 AM EDT 5 mg oxyCODONE (Roxicodone) immediate release tablet 5 mg 5 mg, Oral, Every 8 hours PRN, Starting on Sneha 02/27/25 at 0437, Until Mon02/24/25 at 2202, Routine, [...] Rodas RN)1138 (Given - Provider: Cosmo Traylor RN)1816 (Given - Provider: Cosmo Traylor RN) cefTRIAXone [...] on 02/22/25 at 1000, Until Discontinued, Routine 1100 (Given [...] Provider: Cosmo Traylor RN - Reason: Patient/family refused)2058 (Given - Provider: Shelley Rodas RN) 0830 [...] severe pain 0858 (Given - Provider: Radha Cornoa RN)2127 (See Alternative - Provider: Shelley Rodas, RN) oxyCODONE (Roxicodone) immediate release tablet 5 [...] Oral, Every 4 hours PRN, Starting on 02/21/25 at 1637, Until 02/23/25 at 0436, Routine, [...] PRN, Starting on 02/24/25 at 0437, Until Mon02/24/25 at 2202, Routine, [...] documented as of this encounter Care Teams Solderer Electronic Relationship Specialty Start Date End Date Blaine Nava MD [address] [place] [address] #1 #1 JOHN Miller [id number] PCP - General 02/17/25 documented as of this encounter
--- OUTSIDE RECORDS SUMMARY | 2025-02-21 12:00 | XMS_ITS | Encounter Summary ---
Author Organization Healthcare Address [address] [place] [address] Care Team Providers Care Gas Transfer Operator Name Role Phone Blaine Nava MD Primary Care Provider [phone] Reason for Visit * Auth/Cert (Routine) Specialty Diagnoses / Procedures Referred By Adalid t Referred To Contact Diagnoses Tibial plateau fracture, left, closed, initial encounter Surgical site infection Tibial plateau fracture, left, closed, initial encounter [S82.142A] Surgical site infection [T81.49XA] Procedures MT DRAIN LOWER LEG DEEP ABSC/HEMATOMA INCISION AND DRAINAGE, LOWER EXTREMITY Lawrence Hayes MD [address] [address] Phone: tel: fax: [facility] [address] [place] [address] Phone: tel: Referral ID Status Reason Start Date Expiration Date Visits Re quested Visits Authorized [id number] 1 1 Encounter Details Date Type Department Care Team (Late st Contact Info) Description 02/21/2025 12:00 PM EDT - 02/21/2025 1:30 PM EDT Surgery [facility] [address] [place] [address] Lawrence Hayes MD [address] [address] INCISION AND DRAINAGE, LOWER EXTREMITY & removal of hardware - placement of ABX beads [96290 (CPT )] Surgery Details Date/Time Status Location [...] time in the past 12 m [facility], were you homeless or living in [...] drink first t traci in the morning (EYE-PLUMBER ASSISTANT) to steady your nerves or to [...] note were not included. [address] Narcan [address]al [place]: Rescue Guide for Opioid Overdose Step 1 [...] controlled substances: ?? Drug Enforcement Agency (EDMUNDO): http://www.deadiversion.RedHelperoj.gov/drug_disposal/takeback/index.htm ?? National Association of Drug Diversion Investigators (NADDI): http://rxdrugdropbox.org/ ?? [place] Office of Drug Control Policy: http://odcp.ky.gov/Prescription+Drug+Drop+Box+Sites.htm Are [...] that tracks prescriptions of controlled substances in [place]. The TIFFANY report tells your doctor if [...] or your doctor may then call the [place] Drug Enforcement and Professional Practices Branch at .This will start an investigation of the error. * Adrienne Perez - 02/24/2025 4:03 PM EDT Images from the original note were not included. 17709 * Adrienne Perez - 02/24/2025 4:03 PM [...] house or a medical facility. The case aide/social services will setthat up based on your insurance. [...] or during weekends/ holidays, call the paging feed mill operator at . Ask forthe infectious disease fellow waterfront director. Call the clinic if you have any of these: ?? Fevers greater than 100.5??F ?? An allergic reaction, such as rash ?? Nausea, vomiting, or diarrhea ?? New or returning redness near the IV line ?? Redness, pain, swelling, or pus around the IV line * [facility] - Adrienne Inman - 02/24/2025 4:03 PM [...] of your leg. This is also called ?Vevrnt-jl-Ero Weight Bearing,? ?Toe-Touch Weight Bearing,? or ?Foot-Flat [...] thoroughly. Use soap and water or hand plant manager and wear gloves before touching the [...] them before you flush the line or psychiatric social worker supervisor fluids or medicines. Avoid hard physical [...] infection, call your doctor rightaway. * Rosaura [facility] - Adrienne Inman - 02/24/2025 4:02 PM EDT Images from the original note were not included. [address]157 Preventing a Surgical Site Infection A risk [...] of infection. ?? Controlled body temperature. A xarsu-nnix-ylunkc temperature during or after surgery prevents oxygen [...] and water or with an alcohol-based hand plant manager before and after caring for you. [...] away. Last Reviewed Date: 2024 00:00:00 ?? [id number] The [employer]. All rights reserved. This information is not intended as a substitute for professional medical care. Always follow your healthcare professional's instructions. * Discharge Summary - Sushil Lea MD - 02/24/2025 3:48 PM EDT Hospitalization Admit Date/Time: 02/21/2025 9:35 AM Admitting Attending: Lawrence Hayes Discharge Date: 02/24/2025 Discharge Attending Physician: Lawrence Hayes MD PCP name and Address: Blaine Nava MD [address] [place], [place] [address] #1 / [facility] [address] Referring provider name and address: No referring [...] medications were sent to [facility] [address], [facility] [address] cefTRIAXone 1 g reconstituted solution DAPTOmycin injection [...] Department Center 2025 7:50 AM Stella Brown, COLLECTION ADMINISTRATOR [facility] 2025 10:30 AM Santiago Escalante MD IDBCCLX [place] 03/27/2025 9:30 AM Santiago Escalante MD IDBCCLX [place] Test Results Pending At Discharge Pending Labs [...] discharge. Sushil Lea MD Orthopaedic Surgery PGY-1 [facility] Orthopaedic Trauma Service Pager: [phone] Orthopaedic Recon/Spine/Foot and Ankle Service Pager: [phone] Personal Pager: [phone] Cosigned by Lawrence Hayes MD at 02/26/2025 [...] WEEK 5 FOLLOWUP: 03/27/2025, 0930AM at [address] [facility] [place] [address] (Select Option 3 for IV Antibiotic / PICC line related issues) All questions regarding outpatient parenteral antimicrobials after discharge should be directed to the OPAT nurse navigator at (Select Option 3 for IV Antibiotics/PICC Issues) between 8am-5pm. After 5 pm, or during weekends/ holidays, please call the paging feed mill operator at to reach the on-call ID fellow. PLEASE NOTIFY THE ID CONSULTING SERVICE OF ANY QUESTIONS REGARDING THESE RECOMMENDATIONS OR WITH ANY ANTIMICROBIAL CHANGES THAT OCCUR AFTER THE DATE/TIME OF THIS OPAT INTAKE NOTE. * Progress Notes - Anna Elam RN - 02/24/2025 11:03 AM EDT Case Management Adult Initial Progress Note Panda Machado 34 y.o. male CSN: [id number] Admission: 02/21/2025 9:35 AM Primary Problem: Surgical site infection Hvac Estimator reviewed chart and spoke with patient to complete this Initial Case Management Assessment. PCP: Blaine Nava MD Emergency Contact: Extended Emergency Contact Information Primary Emergency Contact: Hayley Buenrostro Address: [address] [place] [address] Mobile Relation: Significant Other Preferred language: Icelandic Welcome Wagon Host/Hostess needed? No Secondary Emergency Contact: Jenny Buenrostro Address: [address] [place] [address] Mobile Relation: Mother Insurance: Primary Visit Coverage Payer Plan Sponsor Code Group Number Group Name [employer] MEDICAID VELAZQUEZ [employer] VELAZ[employer]Z MEDICAID Primary Visit Coverage Subscriber Subscriber ID Subscriber Name Subscriber SSN Subscriber Address [id number] PANDA MACHADO [id number] [place] [address] Patient information: Primary Caregiver: Self Support System: Immediate family Daily Living Activities: Functional Status: Independent Living Arrangements: Spouse/Significant other, Children Type of Residence: Private residence, Single Level [address] [place] [address] Angela LOPEZ [address] Smoker in the Home?: Yes Current DME: Equipment Currently Used at Home: walker, rolling, walker, standard, shower chair Current DME Provider: Rajseh Income Information: Income Source: Unemployed Income/Expense Information: [...] DME Provider: Rajesh Living Will/Advance Directive/Power of Tractor Operator Battery /Guardian: Unable to assess: No Have you [...] Rajesh today. [facility] and labs and was agreeable to continue receiving care there. CM will send orders when they are available. Pt stated he lives with his and two children. His can provide assistance and transportation. Pt is unemployed and meets 300% FPG. CM will continue to assist with discharge POC. [facility] Tpqkn-[phone] Pjl-[phone] Update: Final ID recs have been placed and standard OPAT approved. Rajesh will complete teaching and deliver ABX to bedside around 5 PM today. Orders were faxed to [facility]. Infusion center will call pt to [...] 10 mg/kg (Adjusted), Intravenous, q24h, Stella Brown, COLLECTION ADMINISTRATOR, Last Rate: 264 mL/hr at 02/23/252056, 1,100 [...] tibial plateau fluid (op cx?) - NCC 38769 (PMN 98%); RBC 240K. GS - GPC. [...] LEFT lower leg. [facility] suffered closed LEFT femoral shaft fracture, [...] surgical site pain/swelling, erythema. Pt seen at [facility] where CT suggested L medial [...] Tobacco: Active smoker ETOH: Denies DRUG ALLERGIES: [place] RECOMMENDATIONS: Re: chronic LEFT tibial SSI, implant [...] abx therapy. For now, while inpatient at [facility] Daptomycin 8-10mg/kg IV q24h as [...] appointment in order to complete registration paperwork.) [facility] (Infectious Diseases Clinic) [address] [place] [address] COTTON GRADER: . FAX: ID Bone and Joint Consult [...] -- Annamaria Romero MD Orthopaedic Surgery PGY-1 [facility] Orthopaedic Trauma Service Pager: [phone] Orthopaedic Recon/Spine/Foot and Ankle Service Pager: [phone] Cosigned by Lawrence Hayes MD at 02/26/2025 [...] shifting supine, legs elevated 02/23/20251913 by Cosmo Tarylor RN Flowsheets (Taken 02/23/2025 0700) Body Position: [...] mobility precautions: No other precautions required Carolin Payna MD Orthopedic Surgery PGY-1 [facility] Cosigned by Lawrence Hayes MD at [...] session. 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 Prior Level of Function Receives Help From: No assist required prior to admission Level of Mobility: Ambulatory- community Mobility [place]: Independent gait without device History of Falls: [...] Mobility Exam: Supine to Sit Level of [place]: Stand-by assist Physical/Nonphysical Assist: Verbal Cues Bed Mobility Exam: Sit to Supine Level of [place]: Stand-by assist Physical/Nonphysical Assist: Verbal Cues Transfers Transfer Interventions: Pt completed a sit to stand transfer with SBA and min cues for safety and maintaing NWB of LLE with good carry over. For stand to sit cues provided for reaching back for surface, extending LLE and eccentric control wtih good carry over. Transfer Exam: Sit to stand Level of [place]: Stand-by assist Physical/Nonphysical Assist: Verbal Cues Assistive Device: Walker, rolling Transfer Exam: Stand to Sit Level of [place]: Stand-by assist Physical/Nonphysical Assist: Verbal Cues Assistive [...] uses. Standardized Assessments Standardized Assessments Standardized Assessments: [facility] 6-Clicks Mobility Assessment [facility] 6-Clicks Mobility Assessment Difficulty patient has turning [...] steps with a railing?: A little [facility] 6-Clicks Mobility Assessment Total : 18 Assessment [...] a.m. 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 Prior Level of Function Receives Help From: No assist required prior to admission Level of Mobility: Ambulatory- community Mobility [place]: Independent gait without device History of Falls: [...] Mobility Bed Mobility Exam: Scooting/Bridging Level of [place]: Stand-by assist Physical/Nonphysical Assist: Verbal Cues Bed Mobility Exam: Supine to Sit Level of [place]: Stand-by assist Physical/Nonphysical Assist: Verbal Cues Bed Mobility Exam: Sit to Supine Level of [place]: Stand-by assist Physical/Nonphysical Assist: Verbal Cues Transfers Transfer Exam: Sit to stand Level of [place]: Stand-by assist Physical/Nonphysical Assist: Verbal Cues Assistive Device: Walker, rolling Transfer Exam: Stand to Sit Level of [place]: Stand-by assist Physical/Nonphysical Assist: Verbal Cues Assistive [...] Edited by: García Shepherd MD at 02/21/2025 5042 - Pain control: MMPC - Diet: regular [...] required Carolin Payan MD Orthopedic Surgery PGY-1 [facility] Cosigned by Lawrence Hayes MD at [...] Escalante MD Consult ordered by: Stella Brown, COLLECTION ADMINISTRATOR Reason for consult: L tibial plateau ORIF [...] surgical site pain/swelling, erythema. Pt seen at [facility] where CT suggested L medial [...] Tobacco: Active smoker ETOH: Denies DRUG ALLERGIES: [place] ALLERGIES: NKDA. MEDS: ABX: Daptomycin 02/21/2025 - [...] mL, 10 mL, Intravenous, PRN, Stella Brown, COLLECTION ADMINISTRATOR SOCIAL HISTORY: As above. Otherwise reviewed and [...] tibial plateau fluid (op cx?) - NCC 20174 (PMN 98%); RBC 240K. GS - GPC. [...] surgical site pain/swelling, erythema. Pt seen at [facility] where CT suggested L medial [...] Tobacco: Active smoker ETOH: Denies DRUG ALLERGIES: [place] RECOMMENDATIONS: Re: chronic LEFT tibial SSI, implant [...] abx therapy. For now, while inpatient at [facility], pending the above: Continue empiric, [...] PM EDT Operative Note Date: 02/21/25 Location: [place] Name: Panda Machado, : 1990, Diagnoses: [...] available for all parts of the procedure Hspt Tutor(s): * García Shepherd MD - Resident - [...] No. SYNTHECURE SYNTHETIC CALCIUM SULFATE 10CC - [id number] Implanted Specimen: Specimens ID Source Frozen? A [...] also visualized and removed with a needle box truck driver. Cultures from the lateral wound were [...] Travel History: none Immunizations Not reviewed Allergies [place] Medications Current Medications[1] Objective Review of Systems [...] 98%. Results Review {Vanishing Link Review Results :[id number] I have reviewed the latest lab and [...] Date INCISION AND DRAINAGE, LEG Left 01/20/2025 ([facility]) INCISION AND DRAINAGE, LOWER EXTREMITY (Left: Leg Lower) KNEE SURGERY Left 01/18/2025 ([facility]) INCISION AND DRAINAGE, LOWER EXTREMITY (Left: Leg Lower) LEG SURGERY Left ERIKA NAIL IM RODDING Left 09/10/2024 ([facility]) INSERTION, INTRAMEDULLARY VICK, FEMUR (Left: Leg Upper) ORIF TIBIA FRACTURE Left 09/15/2023 ([facility]) ORIF, FRACTURE, TIBIA, PLATEAU (Left: Leg Lower) ORIF TIBIAL PLATEU FRACTURE Left 01/01/2025 ([facility]) ORIF, FRACTURE, TIBIA, PLATEAU (Left: Knee) ORTHOPEDIC SURGERY 09/06/2022 Had 4 other similar surgeries [1] Allergies Allergen Reactions [place] Hives [1] No current facility-administered medications for [...] card, photo ID, along with power of criminal attorney, guardianship or advanced directives if applicable [...] Visit [facility] [address] [place] [address] Santiago Escalante MD [address] [facility] [address] [place] [address] 04/07/2025 10:45 AM EDT Appointment [facility] [address] [place] [address] 04/07/2025 11:20 AM EDT Office Visit [facility] Orthopaedic Surgery & Sports Medicine [address] [place] [address] Lawrence Hayes MD [address] [place] [address] Pending Results Name Type Priority [...] left, closed, initial encounter Surgical site infection MT DRAIN LOWER LEG DEEP ABSC/HEMATOMA 02/21/2025 2:09 [...] - 99 mg/dL 02/24/2025 7:37 AM EDT [facility] BUN, Plasma 16 7 - 21 mg/dL 02/24/2025 7:37 AM EDT [facility] Creatinine, Plasma 0.89 0.70 - 1.20 mg/dL 02/24/2025 7:37 AM EDT [facility] BUN/Creatinine Ratio 18 02/24/2025 7:37 AM EDT [facility] Sodium, Plasma 137 136 - 145 mmol/L 02/24/2025 7:37 AM EDT [facility] Potassium, Plasma 4.6 3.6 - 4.9 mmol/L 02/24/2025 7:37 AM EDT [facility] Chloride, Plasma 101 97 - 107 mmol/L 02/24/2025 7:37 AM EDT [facility] CO2, Plasma 26 22 - 29 mmol/L 02/24/2025 7:37 AM EDT [facility] Anion Gap 10 6 - 16 mmol/L 02/24/2025 7:37 AM EDT [facility] Total Calcium, Plasma 9.2 8.9 - 10.2 mg/dL 02/24/2025 7:37 AM EDT [facility] eGFRcr 114.6 mL/min/1.7 3m*2 02/24/2025 7:37 AM EDT [facility] Comment:Reported eGFRcr in m L/min/1.73m2 is based the CKD-EPI 2020 equation that does not use a race coefficient. Blood Venous blood specimen / Unknown Venipuncture / Unknown 02/24/2025 7:04 AM EDT 02/24/2025 7:10 AM EDT us Lawrence Hayes MD LAB BLOOD ORDERABLES Final Re sult [facility] [address] [place] [address] * (ABNORMAL) Basic metabolic panel (02/22/2025 2:24 AM EDT) Glucose, Plasma 150(H) 74 - 99 mg/dL 02/22/2025 2:56 AM EDT [facility] BUN, Plasma 20 7 - 21 mg/dL 02/22/2025 2:56 AM EDT [facility] Creatinine, Plasma 0.98 0.70 - 1.20 mg/dL 02/22/2025 2:56 AM EDT [facility] BUN/Creatinine Ratio 20 02/22/2025 2:56 AM EDT [facility] Sodium, Plasma 138 136 - 145 mmol/L 02/22/2025 2:56 AM EDT [facility] Potassium, Plasma 5.2(H) 3.6 - 4.9 mmol/L 02/22/2025 2:56 AM EDT [facility] Chloride, Plasma 101 97 - 107 mmol/L 02/22/2025 2:56 AM EDT [facility] CO2, Plasma 25 22 - 29 mmol/L 02/22/2025 2:56 AM EDT [facility] Anion Gap 12 6 - 16 mmol/L 02/22/2025 2:56 AM EDT [facility] Total Calcium, Plasma 9.2 8.9 - 10.2 mg/dL 02/22/2025 2:56 AM EDT [facility] eGFRcr 103.1 mL/min/1.7 3m*2 02/22/2025 2:56 AM EDT [facility] Comment:Reported eGFRcr in m L/min/1.73m2 is based the CKD-EPI 2020 equation that does not use a race coefficient. Blood Venous blood specimen / Unknown Venipuncture / Unknown 02/22/2025 2:24 AM EDT 02/22/2025 2:28 AM EDT us Lawrence Hayes MD LAB BLOOD ORDERABLES Final Re sult [facility] [address] [place] [address] * (ABNORMAL) CBC (02/22/2025 2:24 AM EDT) WBC Count 10.82(H) 3.70 - 10.30 10*3/uL LAB HEMATOLOGY METHOD 02/22/2025 2:36 AM EDT [facility] RBC Count 3.92(L) 4.60 - 6.10 10*6/uL LAB HEMATOLOGY METHOD 02/22/2025 2:36 AM EDT [facility] HGB 11.9(L) 13.7 - 17.5 g/dL LAB HEMATOLOGY METHOD 02/22/2025 2:36 AM EDT [facility] HCT 35.5(L) 40.0 - 51.0 % LAB HEMATOLOGY METHOD 02/22/2025 2:36 AM EDT [facility] Platelet Count 296 155 - 369 10*3/uL LAB HEMATOLOGY METHOD 02/22/2025 2:36 AM EDT [facility] MCV 91 79 - 98 fL LAB HEMATOLOGY METHOD 02/22/2025 2:36 AM EDT [facility] MCH 30.4 26.0 - 32.0 pg LAB HEMATOLOGY METHOD 02/22/2025 2:36 AM EDT [facility] MCHC 33.5 30.7 - 35.5 g/dL LAB HEMATOLOGY METHOD 02/22/2025 2:36 AM EDT [facility] RDW 12.9 11.5 - 14.5 % LAB HEMATOLOGY METHOD 02/22/2025 2:36 AM EDT [facility] MPV 9.6 8.8 - 12.5 fL LAB HEMATOLOGY METHOD 02/22/2025 2:36 AM EDT [facility] nRBC 0.0 <=0.0 per 100 WBCs LAB HEMATOLOGY METHOD 02/22/2025 2:36 AM EDT [facility] Blood Venous blood specimen / Unknown Venipuncture / Unknown 02/22/2025 2:24 AM EDT 02/22/2025 2:28 AM EDT us Lawrence Hayes MD LAB BLOOD ORDERABLES Final Re sult [facility] [address] [place] [address] * Multi Drug Resistance Test (02/21/2025 6:24 PM EDT) Culture No growth at day 1 02/22/2025 8:30 PM EDT [facility] Swab (Nares and Janeth Rectal) Non-blood Collection / Unknown 02/21/2025 6:24 PM EDT 02/21/2025 6:56 PM EDT Narrative [facility] - 02/22/2025 8:30 PM EDT This test was developed and its performance characteristics determined by the [facility] Clinical Microbiology Laboratory. Although the media is FDA-approved, it is not FDA-approved for all specimen types submitted. The FDA has determined that such clearance or approval is not necessary. This test is used for surveillance purposes. It should not be regarded as investigational or for research. The [facility] Clinical Microbiology Laboratory is certified under the Clinical Laboratory Improvement Amendments of 1988 (CLIA-88) as qualified to perform high complexity clinical laboratory testing. Lawrence Hayes MD LAB MICROBIOLOGY - GENERAL OR DERABLES Final Result Performing Organization Address [facility] Co de Phone Number [facility] [address] [place] [address] * Fungal Culture, Tissue and SYEDA (02/21/2025 3:14 PM EDT) Culture Reading Mycological 4 Weeks No Fungal Growth at 4 Weeks 03/24/2025 9:41 AM EDT [facility] SYEDA No fungal elements seen 03/24/2025 9:41 AM EDT [facility] Tissue Structure of left knee region / Unknown 02/21/2025 3:14 PM EDT 02/21/2025 4:40 PM EDT Comment:Pre-op diagnosis: Tibial plateau fracture, left, closed, initial encounter [S82.142A] Surgical site infection [T81.49XA] Lawrence Hayes MD LAB MICROBIOLOGY - GENERAL OR DERABLES Final Result Performing Organization Address [facility] Co de Phone Number [facility] [address] [place] [address] * Tissue Culture and Gram Stain (02/21/2025 3:14 PM EDT) Culture No growth at day 4 2024 2:36 PM EDT [facility] Gram Stain Result Rare Polymorphonuclear leukocytes 02/25/2025 2:36 PM EDT [facility] Gram Stain Result No organisms seen 02/25/2025 2:36 PM EDT [facility] Tissue Structure of left knee region / Unknown 02/21/2025 3:14 PM EDT 02/21/2025 4:40 PM EDT Comment:Pre-op diagnosis: Tibial plateau fracture, left, closed, initial encounter [S82.142A] Surgical site infection [T81.49XA] Lawrence Hayes MD LAB MICROBIOLOGY - GENERAL OR DERABLES Final Result Performing Organization Address [facility] de Phone Number [facility] [address] [place] [address] * Anaerobic Culture (02/21/2025 3:14 PM EDT) Culture No growth at day 4 02/28/2025 12:46 PM EDT [facility] Tissue Structure of left knee region / Unknown 02/21/2025 3:14 PM EDT 02/21/2025 4:40 PM EDT Comment:Pre-op diagnosis: Tibial plateau fracture, left, closed, initial encounter [S82.142A] Surgical site infection [T81.49XA] Lawrence Hayes MD LAB MICROBIOLOGY - GENERAL OR DERABLES Final Result Performing Organization Address [facility] Co de Phone Number [facility] [address] [place] [address] * FL Less than 1 Hour Intraoperative (02/21/2025 3:00 PM EDT) Narrative IMAGING - 02/21/2025 5:00 PM EDT Images were obtained for surgical purposes. See Lawrence Hayes's surgical note in the patient's chart for the findings. us Lawrence Hayes MD IMG FLUOROSCOPY PROCEDURES Fi nal Result Performing Organization Address City/[facility] Co de Phone Number IMAGING * Fungal Culture, Tissue and SYEDA (02/21/2025 3:00 PM EDT) Culture Reading Mycological 4 Weeks No Fungal Growth at 4 Weeks 03/24/2025 9:41 AM EDT [facility] SYEDA No fungal elements seen 03/24/2025 9:41 AM EDT [facility] Tissue Structure of left knee region / Unknown 02/21/2025 3:00 PM EDT 02/21/2025 4:41 PM EDT Comment:Pre-op diagnosis: Tibial plateau fracture, left, closed, initial encounter [S82.142A] Surgical site infection [T81.49XA] us Lawrence Hayes MD LAB MICROBIOLOGY - GENERAL OR DERABLES Final Result [facility] [address] [place] [address] * (ABNORMAL) Tissue Culture and Gram Stain (02/21/2025 3:00 PM EDT) Culture 2+ Klebsiella pneumoniae(A) JOVANI 02/25/2025 2:52 PM EDT [facility] Comment: This isolate has been identified using the FDA Approved Total Booxyper CA System The organism value for this result has been updated. These results have been appended to the previously preliminary verified report. Edited result: Previously reported as Gram Negative Vick on 02/23/2025 at 0758 EDT. Culture 2+ Corynebacterium amycolatum(A) JOVANI 02/25/2025 2:52 PM EDT [facility] Comment: This isolate has been identified using the FDA Approved MALDI s0cketyper CA System The organism value for this result has been updated. These results have been appended to the previously preliminary verified report. Culture 2+ Eikenella corrodens(A) JOVANI 02/25/2025 2:52 PM EDT [facility] Comment: This isolate has been identified using the FDA Approved MALDI s0cketyper CA System The organism value for this result has been updated. These results have been appended to the previously preliminary verified report. Culture 1+ Haemophilus haemolyticus(A) JOVANI 02/25/2025 2:52 PM EDT [facility] Comment: This isolate has been identified using the FDA Approved MAYKOR CA System The organism value for this result has been updated. These results have been appended to the previously preliminary verified report. Gram Stain Result Few Polymorphonuclear leukocytes 02/25/2025 2:52 PM EDT [facility] Gram Stain Result No organisms seen 02/25/2025 2:52 PM EDT [facility] Tissue Structure of left [...] MICROBIOLOGY - GENERAL OR DERABLES Final Result [facility] [address] [place] [address] * Anaerobic Culture (02/21/2025 3:00 PM EDT) [facility] Culture Mixed aerobic and anaerobic sherley 02/26/2025 8:03 AM EDT [facility] Tissue Structure of left knee region / Unknown 02/21/2025 3:00 PM EDT 02/21/2025 4:41 PM EDT Comment:Pre-op diagnosis: Tibial plateau fracture, left, closed, initial encounter [S82.142A] Surgical site infection [T81.49XA] Lawrence Hayes MD LAB MICROBIOLOGY - GENERAL OR DERABLES Final Result Performing Organization Address City/[facility]/ZIP Co de Phone Number [facility] [address] [place] [address] * (ABNORMAL) POCT glucose meter (02/21/2025 11:50 AM EDT) [facility] POCT Glucose 108(H) 74 - 99 [...] Comment 02/21/2025 11:51 AM EDT [facility] [employer] ID Harvey Hernandez 02/22/20 11:51 AM EDT [facility] Device ID [id number] 02/21/2025 11:51 AM EDT [facility] Specimen Type POC Capillary 02/21/2025 11:51 AM EDT [facility] Blood Capillary blood specimen / Unknown 02/21/2025 11:50 AM EDT 02/21/2025 11:51 AM EDT us Lawrence Hayes MD LAB POINT OF CARE TE ST DOCKED DEVICE UNSOLICITED RESULTS Final Result Performing Organization Address City/[facility]/ZIP Co de Phone Number [facility] [address] [place] [address] * Creatine Kinase (CK), Total (02/21/2025 11:43 AM EDT) [facility] Creatine Kinase, Plasma 74 49 - 320 U/L 02/21/2025 5:45 PM EDT [facility] Blood Venous blood specimen / Unknown Venipuncture / Unknown 02/21/2025 11:43 AM EDT 02/21/2025 11:57 AM EDT us Stellamarie Brown APRN LAB BLOOD ORDERABLES Final Result Performing Organization Address City/[facility]/ZIP Co de Phone Number [facility] [address] [place] [address] * Type and screen (02/21/2025 11:43 AM [...] ORDERA BLES Final Result Performing Organization Address [facility] de Phone Number BLOOD BANK [address] [place] [address], * Protime-INR (02/21/2025 11:43 AM EDT) [facility] Prothrombin Time 13.6 12.0 - 14.3 sec LAB COAGULATION METHOD 02/21/2025 12:35 PM EDT [facility] INR 1.0 0.9 - 1.1 LAB COAGULATION METHOD 02/21/2025 12:35 PM EDT [facility] Blood Venous blood specimen / Unknown Venipuncture / Unknown 02/21/2025 11:43 AM EDT 02/21/2025 11:57 AM EDT Narrative [facility] - 02/21/2025 12:35 PM EDT [...] recurrent NV INR 2.5 to 3.5 us Stella Brown COLLECTION ADMINISTRATOR LAB BLOOD ORDERABLES Final Result [facility] [address] [place] [address] * (ABNORMAL) Basic Metabolic Panel, Plasma (02/21/2025 11:43 AM EDT) Pathologist [facility] Glucose, Plasma 101(H) 74 - 99 mg/dL 02/21/2025 12:29 PM EDT [facility] BUN, Plasma 12 7 - 21 mg/dL 02/21/2025 12:29 PM EDT [facility] Creatinine, Plasma 0.79 0.70 - 1.20 mg/dL 02/21/2025 12:29 PM EDT [facility] BUN/Creatinine Ratio 15 02/21/2025 12:29 PM EDT [facility] Sodium, Plasma 138 136 - 145 mmol/L 02/21/2025 12:29 PM EDT [facility] Potassium, Plasma 4.2 3.6 - 4.9 mmol/L 02/21/2025 12:29 PM EDT [facility] Chloride, Plasma 102 97 - 107 mmol/L 02/21/2025 12:29 PM EDT [facility] CO2, Plasma 23 22 - 29 mmol/L 02/21/2025 12:29 PM EDT [facility] Anion Gap 13 6 - 16 mmol/L 02/21/2025 12:29 PM EDT [facility] Total Calcium, Plasma 9.3 8.9 - 10.2 mg/dL 02/21/2025 12:29 PM EDT [facility] eGFRcr 118.8 mL/min/1.7 3m*2 02/21/2025 12:29 PM EDT [facility] Comment:Reported eGFRcr in m L/min/1.73m2 is based the CKD-EPI 2020 equation that does not use a race coefficient. Blood Venous blood specimen / Unknown Venipuncture / Unknown 02/21/2025 11:43 AM EDT 02/21/2025 11:57 AM EDT us Stella Brown COLLECTION ADMINISTRATOR LAB BLOOD ORDERABLES Final Result [facility] [address] [place] [address] * (ABNORMAL) CBC and Differential (02/21/2025 11:43 AM EDT) WBC Count 9.14 3.70 - 10.30 10*3/uL LAB HEMATOLOGY METHOD 02/21/2025 12:09 PM EDT [facility] RBC Count 4.18(L) 4.60 - 6.10 10*6/uL LAB HEMATOLOGY METHOD 02/21/2025 12:09 PM EDT [facility] HGB 12.6(L) 13.7 - 17.5 g/dL LAB HEMATOLOGY METHOD 02/21/2025 12:09 PM EDT [facility] HCT 37.8(L) 40.0 - 51.0 % LAB HEMATOLOGY METHOD 02/21/2025 12:09 PM EDT [facility] Platelet Count 298 155 - 369 10*3/uL LAB HEMATOLOGY METHOD 02/21/2025 12:09 PM EDT [facility] MCV 90 79 - 98 fL LAB HEMATOLOGY METHOD 02/21/2025 12:09 PM EDT [facility] MCH 30.1 26.0 - 32.0 pg LAB HEMATOLOGY METHOD 02/21/2025 12:09 PM EDT [facility] MCHC 33.3 30.7 - 35.5 g/dL LAB HEMATOLOGY METHOD 02/21/2025 12:09 PM EDT [facility] RDW 13.2 11.5 - 14.5 % LAB HEMATOLOGY METHOD 02/21/2025 12:09 PM EDT [facility] MPV 9.5 8.8 - 12.5 fL LAB HEMATOLOGY METHOD 02/21/2025 12:09 PM EDT [facility] nRBC 0.0 <=0.0 per 100 WBCs LAB HEMATOLOGY METHOD 02/21/2025 12:09 PM EDT [facility] Differential Type Automated LAB HEMATOLOGY METHOD 02/21/2025 12:09 PM EDT [facility] Neutrophils % 60 % LAB HEMATOLOGY METHOD 02/21/2025 12:09 PM EDT [facility] Lymphocytes % 31 % LAB HEMATOLOGY METHOD 02/21/2025 12:09 PM EDT [facility] Monocytes % 7 % LAB HEMATOLOGY METHOD 02/21/2025 12:09 PM EDT [facility] Eosinophils % 2 % LAB HEMATOLOGY METHOD 02/21/2025 12:09 PM EDT [facility] Basophils % 0 % LAB HEMATOLOGY METHOD 02/21/2025 12:09 PM EDT [facility] Immature Granulocytes % 0 % LAB HEMATOLOGY METHOD 02/21/2025 12:09 PM EDT [facility] Neutrophils Absolute 5.37 1.60 - 6.10 10*3/uL LAB HEMATOLOGY METHOD 02/21/2025 12:09 PM EDT [facility] Lymphocytes Absolute 2.86 1.20 - 3.90 10*3/uL LAB HEMATOLOGY METHOD 02/21/2025 12:09 PM EDT [facility] Monocytes Absolute 0.65 0.30 - 0.90 10*3/uL LAB HEMATOLOGY METHOD 02/21/2025 12:09 PM EDT [facility] Eosinophils Absolute 0.18 0.00 - 0.50 10*3/uL LAB HEMATOLOGY METHOD 02/21/2025 12:09 PM EDT [facility] Basophils Absolute 0.04 0.00 - 0.10 10*3/uL LAB HEMATOLOGY METHOD 02/21/2025 12:09 PM EDT [facility] Immature Granulocytes Absolute 0.04 0.00 - 0.06 10*3/uL LAB HEMATOLOGY METHOD 02/21/2025 12:09 PM EDT [facility] Blood Venous blood specimen / Unknown Venipuncture / Unknown 02/21/2025 11:43 AM EDT 02/21/2025 11:[address] [facility] - 02/21/2025 12:09 PM EDT Therapeutic decision making should be based on absolute values, rather than percentages. us Stella N Brown COLLECTION ADMINISTRATOR LAB BLOOD ORDERABLES Final Result [facility] [address] [place] [address] documented in this encounter Visit Diagnoses Diagnosis [...] 17 g, Oral, Daily, First dose on 02/22/25 at 0900, Until Discontinued, Routine senna-docusate (Janeth-Colace) [...] Rodas RN)1107 (Given - Provider: Radha Corona, RN)[id number] (Given - Provider: Radha Corona RN)[id number] [...] Oral, Every 8 hours PRN, Starting on Mon02/27/25 at 0437, Until Mon02/24/25 at 2202, Routine, [...] Oral, Every 8 hours PRN, Starting on 02/27/25 at 0437, Until 02/24/25 at 2202, [...] documented as of this encounter Care Teams Gas Transfer Operator Relationship Specialty Start Date End Date Blaine Nava MD [address] [place] [address] #1 #1 JOHN Miller [id number] PCP - General 02/17/25 documented as of this encounter
--- OUTSIDE RECORDS SUMMARY | 2025-02-21 14:18 | XMS_ITS | Encounter Summary ---
Author Organization Healthcare Address [address] [place] [address] Care Team Providers Care Chief Technologist Name Role Phone Blaine Nava MD Primary Care Provider [phone] Reason for Visit * Auth/Cert (Routine) Specialty Diagnoses / Procedures Referred By Adalid t Referred To Contact Diagnoses Tibial plateau fracture, left, closed, initial encounter Surgical site infection Tibial plateau fracture, left, closed, initial encounter [S82.142A] Surgical site infection [T81.49XA] Procedures AK DRAIN LOWER LEG DEEP ABSC/HEMATOMA INCISION AND DRAINAGE, LOWER EXTREMITY Lawrence Hayes MD [address] [facility] [address] [place] [address] Phone: tel: fax: [facility] [address] [place] [address] Phone: tel: Referral ID Status Reason Start Date Expiration Date Visits Re quested Visits Authorized [id number] 1 1 Encounter Details Date Type Department Care Team (Late st Contact Info) Description 02/21/2025 2:18 PM EDT Anesthesia Event [facility] [address] [place] [address] Raheem Subramanian, [address] [place] [id number] Anesthesia Record Procedure Summary Procedure Name Responsible Anesthesiologist Anesthesia Start Time Anesthesia Stop Time INCISION AND DRAINAGE, LOWER EXTREMITY & removal of hardware - placement of ABX beads (Left: Leg Lower) MarilynnOctavianoRaheem DO Tiffani 02/21/25 1418 02/21/25 1631 Events Date Time [...] No change to dentition. ; Placed by: LEATHER STITCHER; Removal Date: 02/21/25; Removal Time: 16102/21/25 142 [...] and Family Not on file 02/24/2025 Attends Religion Services Not on file 02/24 Active Member [...] any time in the past 12 m [facility], were you homeless or living in a [...] drink first t traci in the morning (EYE-CLINICAL ACCOUNT SPECIALIST) to steady your nerves or to [...] and Staff Patient location during procedure: OR LEATHER STITCHER: Goran Ty CRNA Performed: LEATHER STITCHER Patient Condition Indications for airway management: anesthesia [...] DRAINAGE, LOWER EXTREMITY (Left: Leg Lower) Location: [facility] OR En[facility] / [facility] OR Surgeons: Lawrence [...] ABG No results found for: PHART , ENC4KKU , PO2ART , SO2ART , BEART , CUH8WFO , HCTART , SODIUMART , POTASSIUMART , POCTCL , POCGLU , IONCALART , LACTATE Lab Results Component Value Date HCTSYR 40.4 01/15/2025 KSYR 4.3 01/15/2025 CLSYR 99 01/15/2025 GLUSYR 110 (H) 01/15/2025 CAION 4.6 01/15/2025 ECHO No echocardiogram results found for the past 12 months PFTs No results found for: NLL5VZX , IWI0CAHP , LGY6HVV , FVCPRED BP Readings from Last 5 [...] Plan ASA 2 Plan was reviewed with: LEATHER STITCHER and resident Anesthesia technique(s) discussed with the [...] Negative GI ROS. [1] Allergies Allergen Reactions [place] Hives [2] Past Medical History: Diagnosis Date Fractures 09/09/2022 [3] [4] [5] Past Surgical History: Procedure Laterality Date INCISION AND DRAINAGE, LEG Left 01/20/2025 ([facility]) INCISION AND DRAINAGE, LOWER EXTREMITY (Left: Leg Lower) KNEE SURGERY Left 01/18/2025 ([facility]) INCISION AND DRAINAGE, LOWER EXTREMITY (Left: Leg Lower) LEG SURGERY Left CHRIS NAIL IM RODDING Left 09/10/2024 ([facility]) INSERTION, INTRAMEDULLARY SHERLY, FEMUR (Left: Leg Upper) ORIF TIBIA FRACTURE Left 09/15/2023 ([facility]) ORIF, FRACTURE, TIBIA, PLATEAU (Left: Leg Lower) ORIF TIBIAL PLATEU FRACTURE Left 01/01/2025 ([facility]) ORIF, FRACTURE, TIBIA, PLATEAU (Left: Knee) [...] Description 03/27/2025 9:30 AM EDT Office Visit [facility] [address] [place] [address] Santiago Collado MD [address] [facility] [address] [place] [address] 04/07/2025 10:45 AM EDT Appointment [facility] [address], [address] [place] [address] 04/07/2025 11:20 AM EDT Office Visit [facility] Surgery [facility] [address], [address] [place] [address] Lawrence Hayes MD [address] [place] [address] documented as of this encounter Procedures Procedure Name Priority Date/Time Associated Diagnosis Comments PB ANESTHESIA PLACEHOLDER Routine 02/21/2025 2:26 PM EDT AK AN ELECTIVE ENDOTRACHEAL AIRWAY Routine 02/21/2025 2:26 PM EDT documented in this encounter Results * AK AN ELECTIVE ENDOTRACHEAL AIRWAY, PB ANESTHESIA PLACEHOLDER (02/21/2025 2:26 PM EDT) Narrative Goran Ty CRNA - 02/21/2025 2:26 PM EDT Goran Ty CRNA 02/21/2025 2:35 PM Airway Date/Time: 02/21/2025 2:26 PM Reason: elective Airway not difficult General Information and Staff Patient location during procedure: OR LEATHER STITCHER: Goran Ty CRNA Performed: LEATHER STITCHER Patient Condition Indications for airway management: anesthesia [...] as of this encounter Care Teams Chief Technologist Relationship Specialty Start Date End Date Blaine Nava MD [address] [place] [address] [address] [place] [address] PCP - General 02/17/25 documented as of this encounter
--- OUTSIDE RECORDS SUMMARY | 2025-03-11 07:50 | XMS_ITS | Encounter Summary ---
Author Organization Healthcare Address [address] [place] [address] Care Team Providers Care Marine Consultant Name Role Phone Blaine Nava MD Primary Care Provider [phone] Reason for Visit * Reason Comments Post-op Encounter Details Date Type Department Care Team (Late st Contact Info) Description 2025 7:50 AM EDT Office Visit [facility] Orthopaedic Surgery & Sports Medicine [address], 1[address] [place] [address] Stella Brown, CHANNEL ACCOUNT MANAGER [address] [place] [address] Infection (Primary Dx) Social History Tobacco Use Types [...] time in the past 12 m [facility], were you homeless or living in [...] drink first t traci in the morning (EYE-FORESTRY SCIENTIST) to steady your nerves or to get rid of a hangover? 0 09/10/2023 CAGE Questionnaire Score 0 024 Utilities Answer Date Recorded In the past 12 months has th e [employer], gas, oil, or water company threatened to [...] Sign Reading Time Taken Comments Blood Pressure 117/77 2025 7:58 AM EDT Pulse 86 2025 7:58 AM EDT Temperature 36.8 C (98.3 F) 2025 7:58 AM EDT Respiratory Rate - - Oxygen Saturation 97% 2025 7:58 AM EDT Inhaled Oxygen Concentration - - Weight 150 kg (330 lb) 2025 7:58 AM EDT Height 188 cm (6' 2 ) 2025 7:58 AM EDT Body Mass Index 42.37 2025 7:58 AM EDT documented in this encounter Miscellaneous Notes * Progress Notes - Stella Brown, CHANNEL ACCOUNT MANAGER - 2025 7:50 AM EDT Chief Complaint: s/p I&D, KATHY with synthecure bead placement (BS 02/21), I&D for SSI (01/18 & 01/20) s/p ORIF left medial tibial plateau Freddy, 01/01/25) HPI: Panda Machado is a 35 y.o. male who presents to clinic for a wound check following the above procedure. The patient grew MRSA from first I&D and was on Daptomycin x 6 weeks however heunfortunately presented to clinic with wound dehiscence on 02/17 so returned to the OR as above for removal of hardware. Cultures grew klebsiella pneumo on 02/21. ID added Ceftriaxone at that time. He has continued on both IV abx since discharge via his PICC line and has an appointment with ID later this AM. He has been compliant with his NWB restrictions. Reports pain being controlled. No new fevers, chills, or feeling of malaise. Focused MSK Exam: Left lower extremity: Lateral incision c/d/I well healed with nylon sutures Medial incision well healed to distal and proximal ends, middle portion wound healed, but wound ends not well approximated allowing for serous drainage to seep through Moderate edema from knee to foot Knee ROM 15-90 Motor: Fires KF/KE/HL/FHL/GSC/TA Sensation: SILT arevalo/sa/sp/dp/t Vascular: Digits WWP XRAY: no imaging obtained today Assessment: 35 y.o. male s/p I&D, KATHY with synthecure bead placement to L tibial plateau (BS 02/21) Plan: -sutures removed, steri strips placed over medial incision. I do not feel leaving the 2 nylon sutures in question would add any benefit at this time. Time will have to tell if he is able to heal thisincision this time around or not. Strict return precautions given to patient and . -Compression stockings ordered to further reduce edema -continue IV abx per ID recs -follow up in 4 weeks with imaging with Dr. Hayes -Continue NWB LLE ROMAT -The patient was given an opportunity to ask questions and all their questions were answered to their satisfaction. Stella Brown APRN Department of Orthopedic Surgery and Sports Medicine documented in this encounter Plan of Treatment Upcoming Encounters Date Type Department Care Team (Late st Contact Info) Description 03/27/2025 9:30 AM EDT Office Visit [facility] [address] [place] [address] Santiago Collado MD [address] [facility] [address] [place] [address] 04/07/2025 10:45 AM EDT Appointment [facility] Radiology [address], 1st [place] [address] 04/07/2025 11:20 AM EDT Office Visit [facility] [address], 1[address] [place] [address] [place] [address] Lawrence Hayes MD [address] [facility] [address] [place] [address] Scheduled Orders Name Type Priority Associated Diagnoses Orde r Schedule XR Tibia Fibula Left 2+ Views Imaging Routine Infection 1 Occurrences starting 2025 until 09/12/2026 documented as of this encounter Visit Diagnoses Diagnosis Infection- Primary Unspecified infectious and parasitic diseases documented in this encounter Additional Health Concerns Infection Onset Date Last Indicated Resolved Time MRSA 01/18/2025 01/18/2025 Assessment Noted Time A fall risk assessment has been complete d for the patient 2025 7:59 AM EDT A Body Mass Index follow-up plan has been documented for the patient 2025 8:32 AM EDT documented as of this encounter Care Teams Marine Consultant Relationship Specialty Start Date End Date Blaine Nava MD [address] [place] [address] [address]1 [place] [address] PCP - General 02/17/25 documented as of this encounter
--- OUTSIDE RECORDS SUMMARY | 2025-03-24 12:31 | XMS_ITS | Encounter Summary ---
Author Organization Healthcare Address [address] [place] [address] Care Team Providers Care Broke Beater Operator Name Role Phone Blaine Nava MD Primary Care Provider [phone] Encounter Details Date Type Department Care Team (Late st Contact Info) Description 02/25/2025 Clinical Support [facility] [address] [place] [address] Sachin Singh, PharmD [address] [place] [address] [address] [place] [address] Social History Tobacco Use Types [...] drink first t traci in the morning (EYE-MOVIE STUNT PERFORMER) to steady your nerves or to get [...] Description 03/27/2025 9:30 AM EDT Office Visit [facility] [address] [place] [address] Santiago Collado MD [address] [facility] [address] [place] [address] 04/07/2025 10:45 AM EDT Appointment [facility] Radiology [address], 1[address] [place] [address] 04/07/2025 11:20 AM EDT Office Visit [facility] Orthopaedic Surgery & Sports Medicine [address], [address] [place] [address] Lawrence Hayes MD [address] [place] [address] documented as of this encounter [...] documented as of this encounter Care Teams Broke Beater Operator Relationship Specialty Start Date End Date Blaine Nava MD [address] [place] [address] [address] [place] [address] PCP - General 02/17/25 documented as of this encounter
--- OUTSIDE RECORDS SUMMARY | 2025-03-24 12:31 | XMS_ITS | Encounter Summary ---
Author Organization [facility] Address [address] [place] [address] Care Team Providers Care Striker Off Name Role Phone Blaine Nava MD Primary Care Provider [phone] Encounter Details Date Type Department Care Team [...] and Family Not on file 02/24/2025 Attends [employer] Not on file 02/24 Active Member [...] drink first t traci in the morning (EYE-CERTIFIED CONTROL SYSTEMS TECHNICIAN) to steady your nerves or to get rid of a hangover? 0 09/10/2023 CAGE Questionnaire Score 0 024 Utilities Answer Date Recorded In the past 12 months has e [employer], gas, oil, or water [employer] threatened to shut off services in your [...] Description 03/27/2025 9:30 AM EDT Office Visit [facility] [address] [place] [address] Santiago Collado MD [address] [facility] [address] [place] [address] 04/07/2025 10:45 AM EDT Appointment [facility] Radiology [address], 1st [place] [address] 04/07/2025 11:20 AM EDT Office Visit [facility] Orthopaedic Surgery & Sports Medicine [address], [address] [place] [address] Lawrence Hayes MD [address] [place] [address] documented as of this encounter [...] documented as of this encounter Care Teams Striker Off Relationship Specialty Start Date End Date Blaine Nava MD [address] [place] [address] [address] [place] [address] PCP - General 02/17/25 documented as of this encounter
--- OUTSIDE RECORDS SUMMARY | 2025-03-24 12:31 | XMS_ITS | Encounter Summary ---
Author Organization Healthcare Address [address] [place] [address] Care Team Providers Care Swaging Machine Operator Name Role Phone Blaine Nava MD Primary Care Provider [phone] Encounter Details Date Type Department Care Team (Late st Contact Info) Description 02/25/2025 Clinical Support [facility] [address] [place] [address] Sachin Singh, PharmD [address] [place] [address] [address] [place] [address] Social History Tobacco Use Types [...] Attends Club or Organization Meetings Not on bobyb e 02/24/2025 Are you , , di [...] living in a longterm (including now)? No 02/24/2025 CAGE ASSESSMENT Answer [...] drink first t traci in the morning (EYE-SOAP DRIER TENDER) to steady your nerves or to [...] IV every 24 hours Silvia, pharmacist at [facility] / [facility]; . End date is 04/04/2025. Sachin Singh, Thu, [facility] Clinical Pharmacist, Infectious Diseases & Outpatient Parenteral Antimicrobial Therapy (OPAT) Available via [employer] [facility] documented in this encounter Plan of Treatment Upcoming Encounters Date Type Department Care Team (Late st Contact Info) Description 03/27/2025 9:30 AM EDT Office Visit [facility] [address] [facility] [place] [address] Santiago Collado MD [address] [facility] [address] [place] [address] 04/07/2025 10:45 AM EDT Appointment [facility] Radiology [address], [address] [place] [address] 04/07/2025 11:20 AM EDT Office Visit [facility] Orthopaedic Surgery & Sports Medicine [address], [address] [place] [address] Lawrence Hayes MD [address] [place] [address] documented as of this encounter [...] documented as of this encounter Care Teams Swaging Machine Operator Relationship Specialty Start Date End Date Blaine Nava MD [address] [place] [address] PCP - General 02/17/25 documented as of this encounter
--- OUTSIDE RECORDS SUMMARY | 2025-03-24 12:31 | XMS_ITS | Encounter Summary ---
Author Organization [facility] Address [address] [place] [address] Care Team Providers Care Avionics Systems Repairer Name Role Phone Blaine Nava MD Primary Care Provider [phone] Encounter Details Date Type Department Care Team [...] drink first t traci in the morning (EYE-METAL FORGER'S ASSISTANT) to steady your nerves or to [...] Description 03/27/2025 9:30 AM EDT Office Visit [place] [address] [place] [address] Santiago Collado MD [facility] [address] [place] [address] 04/07/2025 10:45 AM EDT Appointment [facility] Radiology [address], [address] [place] [address] 04/07/2025 11:20 AM EDT Office Visit [facility] Orthopaedic Surgery & Sports Medicine [address], [address] [place] [address] Lawrence Hayes MD [address] [place] [address] documented as of this encounter Visit Diagnoses [...] documented as of this encounter Care Teams Avionics Systems Repairer Relationship Specialty Start Date End Date Blaine Nava MD [address] [place] [address] [address] [place] [address] PCP - General 02/17/25 documented as of this encounter
--- OUTSIDE RECORDS SUMMARY | 2025-03-24 12:31 | XMS_ITS | Encounter Summary ---
Author Organization [facility] Address [address] [place] [address] Care Team Providers Care [place] Manager Name Role Phone Blaine Nava MD Primary Care Provider [phone] Encounter Details Date Type Department Care Team [...] and Family Not on file 02/24/2025 Attends [employer] Not on file 02/24 Active Member of Clubs or Organizations Not on f ile 02/24/2025 Attends Club or Organization Meetings Not on obbby e 02/24/2025 Are you , , di [...] drink first t traci in the morning (EYE-BEE FARMER) to steady your nerves or to get rid of a hangover? 0 09/10/2023 CAGE Questionnaire Score 0 024 Utilities Answer Date Recorded In the past 12 months has e [employer], gas, oil, or water [facility] threatened to shut off services in your [...] Description 03/27/2025 9:30 AM EDT Office Visit [facility] [address] [place] [address] Santiago Collado MD [address] [facility] [address] [place] [address] 04/07/2025 10:[address] [facility] Radiology [address], 1st [place] [address] 04/07/2025 11:20 AM EDT Office Visit [facility] Orthopaedic Surgery & Sports Medicine [address], [address] [place] [address] Lawrence Hayes MD [address] [place] [address] documented as of this encounter [...] documented as of this encounter Care Teams [employer] [place] Manager Relationship Specialty Start Date End Date Blaine Nvaa MD [address] [place] [address] [address] [place] [address] PCP - General 02/17/25 documented as of this encounter
--- OUTSIDE RECORDS SUMMARY | 2025-03-24 12:32 | XMS_ITS | Clinical Summary ---
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 period is included. AFB Culture No Mycobacterial Growth at 6 Weeks 03/04/2025 4:02 PM EDT [facility] Acid Fast Stain No acid fast bacilli seen 03/04/2025 4:02 PM EDT [facility] Tissue Structure of left knee region / Unknown 01/20/2025 10:30 AM EDT 01/20/2025 11:23 AM EDT Comment:Pre-op diagnosis: Closed fracture of left tibial plateau with routine healing, subsequent encounter [S85.531Q] us Bob Nava MD LAB MICROBIOLOGY - GENERAL O RDERABLES Final Result [facility] [address] [place] [address] * Peripheral IV (01/20/2025 10:10 AM EDT) [...] Plasma 20.1 ug/mL 01/20/2025 4:51 AM EDT [facility] Blood Venous blood specimen / Unknown Venipuncture / Unknown 01/20/2025 3:40 AM EDT 01/20/2025 3:57 AM EDT Sachin Garza MD LAB BLOOD ORDERABLES Final R esult Performing Organization Address City/[facility] Co de Phone Number [facility] [address] [place] [address] * Fungal Culture, Sterile Body Fluid (NOT CSF) and SYEDA (01/18/2025 3:28 PM EDT) Only the most recent of2 resultswithin the time period is included. Culture No Fungal Growth at 3 Weeks 02/10/2025 8:37 AM EDT [facility] SYEDA No fungal elements seen 02/10/2025 8:37 AM EDT [facility] Joint Fluid Topography unknown / Unknown Non-blood Collection / Unknown 01/18/2025 3:28 PM EDT 01/18/2025 3:28 PM EDT Sachin Garza MD LAB MICROBIOLOGY - GENERAL O RDERABLES Final Result Performing Organization Address City/[facility]/ZIP Co de Phone Number [facility] [address] [place] [address] * (ABNORMAL) Body Fluid Culture and Gram Stain (01/18/2025 3:28 PM EDT) Only the most recent of3 resultswithin the time period is included. Culture Heavy Growth 01/20/2025 8:34 AM EDT [facility] Culture Methicillin-Resista nt Staphylococcus aureus(AA) 01/20/2025 8:34 AM EDT [facility] Comment: For susceptibility results refer to: - [id number] The organism value for this result has been updated. These results have been appended to the previously preliminary verified report. Edited result: Previously reported as Staphylococcus aureus on 01/19/2025 at 0933 EDT. Staphylococcus aureus has been updated to reportable. Gram Stain Result Numerous Polymorphonuclear leukocytes 01/20/2025 8:34 AM EDT [facility] Gram Stain Result No organisms seen 01/20/2025 8:34 AM EDT [facility] Joint Fluid Topography unknown / Unknown Non-blood Collection / Unknown 01/18/2025 3:28 PM EDT 01/18/2025 3:28 PM EDT us Sachin Garza MD LAB MICROBIOLOGY - GENERAL O RDERABLES Final Result [facility] [address] [place] [address] * (ABNORMAL) Body Fluid Cell Count w/ Diff (01/18/2025 3:01 PM EDT) Only the most recent of2 resultswithin the time period is included. Color, Body fluid Red LAB HEMATOLOGY METHOD 01/18/2025 11:05 PM EDT [facility] Appearance, Body fluid Cloudy(A) LAB HEMATOLOGY METHOD 01/18/2025 11:05 PM EDT [facility] Volume, Body fluid 3.5 cc LAB HEMATOLOGY METHOD 01/18/2025 11:05 PM EDT [facility] Fluid Container Specimen received in EDTA tube LAB HEMATOLOGY METHOD 01/18/2025 11:05 PM EDT [facility] Red Blood Cell Count, Body fluid 299,000 uL LAB HEMATOLOGY METHOD 01/18/2025 11:05 PM EDT [facility] Total Nucleated Cell Count, Body fluid 873 uL LAB HEMATOLOGY METHOD 01/18/2025 11:05 PM EDT [facility] Neutrophils %, Body fluid 17 % LAB HEMATOLOGY METHOD 01/18/2025 11:05 PM EDT [facility] Lymphocytes %, Body fluid 55 % LAB HEMATOLOGY METHOD 01/18/2025 11:05 PM EDT [facility] Monocytes/Macro phages %, Body fluid 27 % LAB HEMATOLOGY METHOD 01/18/2025 11:05 PM EDT [facility] Eosinophils %, Body fluid 1 % LAB HEMATOLOGY METHOD 01/18/2025 11:05 PM EDT [facility] Lining/Mesothel ial Cells %, Body fluid 0 % LAB HEMATOLOGY METHOD 01/18/2025 11:05 PM EDT [facility] Neutrophils Absolute (PMN), Body fluid 148 uL LAB HEMATOLOGY METHOD 01/18/2025 11:05 PM EDT [facility] Lymphocytes Absolute, Body fluid 480 uL LAB HEMATOLOGY METHOD 01/18/2025 11:05 PM EDT [facility] Monocytes/Macro phages Absolute, Body fluid 236 uL LAB HEMATOLOGY METHOD 01/18/2025 11:05 PM EDT [facility] Eosinophils Absolute, Body fluid 9 uL LAB HEMATOLOGY METHOD 01/18/2025 11:05 PM EDT [facility] Basophils Absolute, Body fluid 0 uL LAB HEMATOLOGY METHOD 01/18/2025 11:05 PM EDT [facility] Lining/Mesothel ial Cells Absolute, Body fluid 0 uL LAB HEMATOLOGY METHOD 01/18/2025 11:05 PM EDT [facility] Comment, Body fluid None LAB HEMATOLOGY METHOD 01/18/2025 11:05 PM EDT [facility] Comment:This is an appended report. These results have been appended to a previously preliminary verified report. Basophils %, Body fluid 0 % LAB HEMATOLOGY METHOD 01/18/2025 11:05 PM EDT [facility] Joint Fluid Structure of left knee region / Unknown 01/18/2025 3:01 PM EDT 01/18/2025 3:28 PM EDT us Sachin Garza MD LAB BODY FLUIDS AND STOOLS ORDERABLES NO SPECIMEN TYPE/SOURCE Final Result [facility] [address] [place] [address] * Body fluid, cytospin, pathologist interpretation (01/18/2025 3:01 PM EDT) Only the most recent of2 resultswithin the time period is included. Specimen Type Joint Fluid LAB HEMATOLOGY METHOD 01/20/2025 4:29 PM EDT [facility] Specimen Source, Body Fluid Knee, Left LAB HEMATOLOGY METHOD 01/20/2025 4:29 PM EDT [facility] Clinical Diagnosis, Body Fluid Left lower extremity cellulitis LAB HEMATOLOGY METHOD 01/20/2025 4:29 PM EDT [facility] Interpretation , Body Fluid Bloody specimen Acute and chronic inflammatory cells Correlation with microbiology studies recommended A resident was involved in the service. I attest I examined the relevant preparations for the specimens and confirmed the diagnosis or interpretation. 01/20/2025 4:29 PM EDT [facility] Pathologist Signature, Body Fluid 01/20/2025 4:29 PM EDT [facility] Comment:Reviewed by: Stephanie conti MD LAB CP ASR DISCLAIMER Yes 01/20/2025 4:29 PM EDT [facility] Joint Fluid Structure of left knee region / Unknown 01/18/2025 3:01 PM EDT 01/18/2025 3:28 PM EDT us Sachin Garza MD LAB BODY FLUIDS AND STOOLS O RDERABLES Final Result Performing Organization Address [facility] Co de Phone Number [facility] [address] [place] [address] * Joint Fluid Crystals (01/18/2025 3:01 PM EDT) Crystals, Joint Fluid No Crystals Seen No Crystals Present 01/18/2025 5:28 PM EDT [facility] Joint Fluid Structure of left knee region / Unknown 01/18/2025 3:01 PM EDT 01/18/2025 3:28 PM EDT us Sachin Garza MD LAB BODY FLUIDS AND STOOLS O RDERABLES Final Result Performing Organization Address City/[facility]/ZIP Co de Phone Number [facility] [address] [place] [address] * Joint Infection Panel by PCR (01/18/2025 12:17 PM EDT) Anaerococcus prevotii/vaginalis PCR Result Not Detected Not Detected 01/18/2025 5:28 PM EDT [facility] Clostridium perfringens PCR Result Not Detected Not Detected 01/18/2025 5:28 PM EDT [facility] Cutibacterium avidum/granulosum PCR Result Not Detected Not Detected 01/18/2025 5:28 PM EDT [facility] Enterococcus faecalis PCR Result Not Detected Not Detected 01/18/2025 5:28 PM EDT [facility] Enterococcus faecium PCR Result Not Detected Not Detected 01/18/2025 5:28 PM EDT [facility] Finegoldia magna PCR Result Not Detected Not Detected 01/18/2025 5:28 PM EDT [facility] Parvimonas micra PCR Result Not Detected Not Detected 01/18/2025 5:28 PM EDT [facility] Peptoniphilus PCR Result Not Detected Not Detected 01/18/2025 5:28 PM EDT [facility] Peptostreptococcus anaerobius PCR Result Not Detected Not Detected 01/18/2025 5:28 PM EDT [facility] Staphylococcus aureus PCR Result Not Detected Not Detected 01/18/2025 5:28 PM EDT [facility] Staphylococcus lugdunensis PCR Result Not Detected Not Detected 01/18/2025 5:28 PM EDT [facility] Streptococcus spp PCR Result Not Detected Not Detected 01/18/2025 5:28 PM EDT [facility] Streptococcus agalactiae PCR Result Not Detected Not Detected 01/18/2025 5:28 PM EDT [facility] Streptococcus pneumoniae PCR Result Not Detected Not Detected 01/18/2025 5:28 PM EDT [facility] Streptococcus pyogenes PCR Result Not Detected Not Detected 01/18/2025 5:28 PM EDT [facility] Bacteroides fragilis PCR Result Not Detected Not Detected 01/18/2025 5:28 PM EDT [facility] Citrobacter PCR Result Not Detected Not Detected 01/18/2025 5:28 PM EDT [facility] Enterobacter cloacae complex PCR Result Not Detected Not Detected 01/18/2025 5:28 PM EDT [facility] Escherichia coli PCR Result Not Detected Not Detected 01/18/2025 5:28 PM EDT [facility] Haemophilus influenzae PCR Result Not Detected Not Detected 01/18/2025 5:28 PM EDT [facility] Kingella kingae PCR Result Not Detected Not Detected 01/18/2025 5:28 PM EDT [facility] Klebsiella aerogenes PCR Result Not Detected Not Detected 01/18/2025 5:28 PM EDT [facility] Klebsiella pneumoniae group PCR Result Not Detected Not Detected 01/18/2025 5:28 PM EDT [facility] Morganella morganii PCR Result Not Detected Not Detected 01/18/2025 5:28 PM EDT [facility] Neisseria gonorrhoeae PCR Result Not Detected Not Detected 01/18/2025 5:28 PM EDT [facility] Proteus spp PCR Result Not Detected Not Detected 01/18/2025 5:28 PM EDT [facility] Pseudomonas aeruginosa PCR Result Not Detected Not Detected 01/18/2025 5:28 PM EDT [facility] Salmonella spp PCR Result Not Detected Not Detected 01/18/2025 5:28 PM EDT [facility] Serratia marcescens PCR Result Not Detected Not Detected 01/18/2025 5:28 PM EDT [facility] Nelda PCR Result Not Detected Not Detected 01/18/2025 5:28 PM EDT [facility] Nelda albicans PCR Result Not Detected Not Detected 01/18/2025 5:28 PM EDT [facility] CTXM PCR Result Not Detected Not Detected 01/18/2025 5:28 PM EDT [facility] IMP PCR Result Not Detected Not Detected 01/18/2025 5:28 PM EDT [facility] KPC PCR Result Not Detected Not Detected 01/18/2025 5:28 PM EDT [facility] mecA/C and MREJ (MRSA) PCR Result Not Detected Not Detected 01/18/2025 5:28 PM EDT [facility] NDM PCR Result Not Detected Not Detected 01/18/2025 5:28 PM EDT [facility] OXA-48-like PCR Result Not Detected Not Detected 01/18/2025 5:28 PM EDT [facility] Jarret/B PCR Result Not Detected Not Detected 01/18/2025 5:28 PM EDT [facility] VIM PCR Result Not Detected Not Detected 01/18/2025 5:28 PM EDT [facility] Joint Fluid Synovial fluid specimen / Unknown Non-blood Collection / Unknown 01/18/2025 12:17 PM EDT 01/18/2025 3:24 PM EDT Narrative [facility] - 01/18/2025 5:28 PM [...] MICROBIOLOGY - GENERAL O RDERABLES Final Result [facility] [address] [place] [address] * NV AN ELECTIVE ENDOTRACHEAL AIRWAY, PB [...] Detected Not Detected 01/18/2025 9:36 AM EDT [facility] Swab Both anterior nares / Unknown Non-blood Collection / Unknown 01/18/2025 7:43 AM EDT 01/18/2025 8:19 AM EDT Narrative [facility] - 01/18/2025 9:36 AM [...] O RDERABLES Final Result Performing Organization Address [facility] Co de Phone Number [facility] [address] [place] [address] * Vancomycin, Peak, Plasma Please draw ~2 hours after 1000 dose of vancomycin on Monday finishes infusing. Consider obtaining level via peripheral stick. If peripheral stick is not feasible, please ensure that line is flushed well prior to drawing l... (01/17/2025 2:03 PM EDT) Vancomycin, Peak, Plasma 22.0 20.0 - 40.0 ug/mL 01/17/2025 3:01 PM EDT [facility] Blood Venous blood specimen / Unknown Venipuncture / Unknown 01/17/2025 2:03 PM EDT 01/17/2025 2:32 PM EDT Narrative [facility] - 01/17/2025 3:01 PM EDT Therapeutic Peak level: 20-40ug/mL Supra-therapeutic Peak level: >40 ug/mL Sachin Garza MD LAB BLOOD ORDERABLES Final R esult Performing Organization Address [facility] de Phone Number [facility] [address] [place] [address] * Vancomycin, Trough, Plasma Please draw ~30 minutes prior to dose due at 1000 on Monday. Please do NOT hold dose awaiting level to return. Consider obtaining level via peripheral stick. If peripheral stick is not feasible, please ensure that line ... (01/17/2025 9:53 AM EDT) Vancomycin, Trough, Plasma 12.5 10.0 - 20.0 ug/mL 01/17/2025 10:24 AM EDT [facility] Blood Venous blood specimen / Unknown Venipuncture / Unknown 01/17/2025 9:53 AM EDT 01/17/2025 9:57 AM EDT Narrative [facility] - 01/17/2025 10:24 AM EDT Therapeutic Trough level: 10-20ug/mL Supra-therapeutic Trough level: >20 ug/mL Sachin Garza MD LAB BLOOD ORDERABLES Final R esult [facility] [address] [place] [address] * [place] Extremity Limited MSK or Soft [...] at day 5 01/21/2025 2:02 AM EDT [facility] Blood Venous blood specimen / Unknown Venipuncture / Unknown 01/16/2025 12:24 AM EDT 01/16/2025 1:12 AM EDT Narrative [facility] - 01/21/2025 2:02 AM EDT Low blood volume submitted, results may be compromised Gus iTerney APRN LAB MICROBIOLOGY - GENER AL ORDERABLES Final Result [facility] [address] [place] [address] * XR Chest 1 View (01/15/2025 11:21 [...] on 01/15/2025 11:40 PM us Gus Tierney OVERLOCK ELASTIC ATTACHER IMG XR PROCEDURES Final Result * ECG [...] QTC Interval 432 ms MUSE ECG P [place] 56 degrees MUSE ECG R [place] 44 degrees MUSE ECG T Wave [place] 57 degrees MUSE ECG Diagnosis Normal sinus [...] LAB HEMATOLOGY METHOD 01/15/2025 10:14 PM EDT [facility] pCO2, Venous 47 40 - 55 mmHg LAB HEMATOLOGY METHOD 01/15/2025 10:14 PM EDT [facility] pO2, Venous 34 25 - 40 mmHg LAB HEMATOLOGY METHOD 01/15/2025 10:14 PM EDT [facility] SO2, Measured, Venous 68 65 - 80 % LAB HEMATOLOGY METHOD 01/15/2025 10:14 PM EDT [facility] Base Excess, Venous 2.8 -2.0 - 3.0 mmol/L LAB HEMATOLOGY METHOD 01/15/2025 10:14 PM EDT [facility] Bicarbonate, Calculated, Venous 29(H) 22 - 26 mmol/L LAB HEMATOLOGY METHOD 01/15/2025 10:14 PM EDT [facility] Hematocrit, Whole Blood 40.4 40.0 - 51.0 % LAB HEMATOLOGY METHOD 01/15/2025 10:14 PM EDT [facility] Sodium, Whole Blood 135(L) 136 - 145 mmol/L LAB HEMATOLOGY METHOD 01/15/2025 10:14 PM EDT [facility] Potassium, Whole Blood 4.3 3.6 - 4.9 mmol/L LAB HEMATOLOGY METHOD 01/15/2025 10:14 PM EDT [facility] Chloride, Whole Blood 99 97 - 107 mmol/L LAB HEMATOLOGY METHOD 01/15/2025 10:14 PM EDT [facility] Glucose, Whole Blood 110(H) 74 - 99 mg/dL LAB HEMATOLOGY METHOD 01/15/2025 10:14 PM EDT [facility] Lactate, Venous, Whole Blood 1.1 0.5 - 2.2 mmol/L LAB HEMATOLOGY METHOD 01/15/2025 10:14 PM EDT [facility] Ionized Calcium, Whole Blood 4.6 4.6 - 5.1 mg/dL LAB HEMATOLOGY METHOD 01/15/2025 10:14 PM EDT [facility] Blood Venous blood specimen / Unknown Venipuncture / Unknown 01/15/2025 10:11 PM EDT 01/15/2025 10:12 PM EDT us Gus Tierney OVERLOCK ELASTIC ATTACHER LAB BLOOD ORDERABLES Fin al Result [facility] [address] [place] [address] * Lactate, venous (01/02/2025 2:46 AM EDT) Only the most recent of4 resultswithin the time period is included. Lactate, Venous, Whole Blood 1.8 0.5 - 2.2 mmol/L LAB HEMATOLOGY METHOD 01/02/2025 2:55 AM EDT [facility] Blood Venous blood specimen / Unknown Venipuncture / Unknown 01/02/2025 2:46 AM EDT 01/02/2025 2:53 AM EDT us Lawrence Hayes MD LAB BLOOD ORDERABLES Final Re sult [facility] [address] [place] [address] * NV AN ELECTIVE ENDOTRACHEAL AIRWAY, PB ANESTHESIA PLACEHOLDER (01/01/2025 11:28 AM EDT) Narrative Rubén Millan CRNA - 01/01/2025 11:28 AM EDT Rubén Millan CRNA 01/01/2025 11:31 AM Airway Date/Time: 01/01/2025 11:28 AM Reason: elective Airway not difficult General Information and Staff Patient location during procedure: OR APICULTURIST: Rubén Millan CRNA Performed: APICULTURIST Patient Condition Indications for airway management: anesthesia [...] 5.6 <5.7 % 01/01/2025 8:29 AM EDT [facility] Blood Venous blood specimen / Unknown Venipuncture / Unknown 01/01/2025 7:17 AM EDT 01/01/2025 7:23 AM EDT Narrative [facility] - 01/01/2025 8:29 AM EDT HA1C Interpretive Data: Diagnosis of Diabetes: Diabetic > or = 6.5% Pre-diabetic 5.7 to 6.4% Non-diabetic < or = 5.6% Glycemic Targets for Type I and Type II Diabetics: Non- Adults <7.0% Adults <6.0% Children and Adolescents <7.5% Source: [place] [employer]. Standards of medical care in diabetes,2017. Diabetes Care.2017:40 (suppl 1):S1-S135. us Lawrence Hayes MD LAB BLOOD ORDERABLES Final Re sult [facility] [address] [place] [address] * XR Ankle Left 3+ Views (01/01/2025 [...] Reactive Non Reactive 01/01/2025 1:33 AM EDT [facility] Comment:Screening for HIV 1 & 2 antibodies, and P24 antigen is NONREACTIVE. No confirmatory testing is required. Blood Venous blood specimen / Unknown Venipuncture / Unknown 01/01/2025 12:35 AM EDT 01/01/2025 12:52 AM EDT us Kareem Perera MD LAB BLOOD ORDERABLES Final Resu lt [facility] [address] [place] [address] * Hepatitis C Antibody - ED (01/01/2025 12:35 AM EDT) Hepatitis C Antibody Negative Negative 01/01/2025 1:33 AM EDT [facility] Blood Venous blood specimen / Unknown Venipuncture / Unknown 01/01/2025 12:35 AM EDT 01/01/2025 12:52 AM EDT us Kareem Perera MD LAB BLOOD ORDERABLES Final Resu lt Performing Organization Address City/[facility]/ZIP Co de Phone Number [facility] [address] [place] [address] * Light Green Top (01/01/2025 12:27 AM EDT) Extra Hold for add-ons 01/01/2025 3:02 AM EDT [facility] Comment:Auto resulted. Blood Venous blood specimen / Unknown 01/01/2025 12:27 AM EDT 01/01/2025 12:42 AM EDT us Kareem Perera MD LAB BLOOD ORDERABLES Final Resu lt Performing Organization Address [facility] Co de Phone Number [facility] [address] [place] [address] * CT OUTSIDE IMAGES (12/31/2024 7:02 PM [...] Date Last Indicated MRSA 01/18/2025 01/18/2025 Insurance MEDICAID [id number] Advance Directives * Full Code [...] Patient has decision-making capacity? Yes Care Teams Psych Np Relationship Specialty Start Date End Date Blaine Nava MD [address] [place] [address] #1 #1 JOHN Miller [id number] PCP - General 02/17/25
--- OUTSIDE RECORDS SUMMARY | 2025-03-24 12:32 | XMS_ITS | Encounter Summary ---
Author Organization Healthcare Address [address] [place] [address] Care Team Providers Care 1 Year Olds Preschool Teacher Name Role Phone Renetta Pardo APRN Primary Care Provider [phone] Encounter Details Date Type Department Care Team [...] drink first t traci in the morning (EYE-MINT MACHINE OPERATOR) to steady your nerves or [...] Description 03/27/2025 9:30 AM EDT Office Visit [facility] [address] [place] [id number] Santiago Collado MD [address] [facility] [address] [place] [address] 04/07/2025 10:[address] [facility] Radiology [address], [address] [place] [address] 04/07/2025 11:20 AM EDT Office Visit [facility] Orthopaedic Surgery & Sports Medicine [address], [address] [place] [address] Lawrence Hayes MD [address] [place] [address] documented as of this encounter Visit Diagnoses [...] documented as of this encounter Care Teams 1 Year Olds Preschool Teacher Relationship Specialty Start Date End Date Renetta Pardo APRN [address] [place] [address] [place] [address] PCP - General 09/09/23 02/16/25 documented as of this encounter
--- OUTSIDE RECORDS SUMMARY | 2025-03-24 12:32 | XMS_ITS | Encounter Summary ---
Author Organization Healthcare Address [address] [place] [id number] Care Team Providers Care Insole Department Worker Name Role Phone Renetta Pardo APRN Primary Care Provider [phone] Encounter Details Date Type Department Care Team (Late st Contact Info) Description 01/23/[address] [facility] [address] [place] [address] Gume Ibarra, PharmD [address] [place] [address] Social History Tobacco Use Types Packs/Day Years [...] any time in the past 12 m [facility], were you homeless or living in [...] drink first t traci in the morning (EYE-RECORD FILING CLERK) to steady your nerves or to get rid of a hangover? 0 09/10/2023 CAGE Questionnaire Score 0 024 Utilities Answer Date Recorded In the past 12 months has th e [employer], gas, oil, or water company threatened to [...] EDT Office Visit [facility] [address] [facility] [place] [address] Santiago Collado MD [address] [facility] [address] [place] [address] 04/07/2025 10:45 AM EDT Appointment [facility] Radiology [address], 1[address] [place] [address] 04/07/2025 11:20 AM EDT Office Visit [facility] Orthopaedic Surgery & Sports Medicine [address], [address] [place] [address] Lawrence Hayes MD [address] [place] [address] documented as of this [...] documented as of this encounter Care Teams Insole Department Worker Relationship Specialty Start Date End Date Renetta Pardo APRN [address] [place] [address] [place] [address] PCP - General 09/09/23 02/16/25 documented as of this encounter
--- OUTSIDE RECORDS SUMMARY | 2025-03-24 12:32 | XMS_ITS | Encounter Summary ---
Author Organization Healthcare Address [address] [place] [address] Care Team Providers Care Auto Salvage Worker Name Role Phone Renetta Pardo APRN Primary Care Provider [phone] Encounter Details Date Type Department Care Team (Late st Contact Info) Description 01/24/2025 Telephone [facility] Orthopaedic Surgery & Sports Medicine [address] [place] [phone] [place] [employer], SUPERVISOR CAR INSTALLATIONS & ACUTE CARE SURG SVCS ADMIN Social [...] any time in the past 12 m [facility], were you homeless or [...] first t traci in the morning (EYE-HYPERION ESSBASE DEVELOPER) to steady your nerves or to get rid of a hangover? 0 09/10/2023 CAGE Questionnaire Score 0 024 Utilities Answer Date Recorded In the past 12 months has th e [employer], gas, oil, or water [employer] threatened to shut off services in your [...] Visit [facility] [address] [place] [address] Santiago Collado MD [address] [facility] [address] [place] [address] 04/07/2025 10:45 AM EDT Appointment [facility] Radiology [address] 1[address] [place] [address] 04/07/2025 11:20 AM EDT Office Visit [facility] Orthopaedic Surgery & Sports Medicine [address] [place] [address] Lawrence Hayes MD [address] [place] [address] documented as of this encounter [...] as of this encounter Care Teams Auto Salvage Worker Relationship Specialty Start Date End Date Renetta Pardo APRN [address] [place] [address] [address] [place] [address] PCP - General 09/09/23 02/16/25 documented as of this encounter
--- OUTSIDE RECORDS SUMMARY | 2025-03-24 12:32 | XMS_ITS | Encounter Summary ---
Author Organization [facility] Address [address] [place] [address] Care Team Providers Care Steamtable Attendant Railroad Name Role Phone Renetta Pardo APRN Primary Care Provider [phone] Blaine Nava MD Primary Care Provider [phone] Reason for Visit * Reason Onset Date Comments HCN - Patient Message 01/27/2025 Encounter Details Date Type Department Care Team (Late st Contact Info) Description 01/27/2025 Telephone [facility] Orthopaedic Surgery & Sports Medicine [address], 1[address] [place] [address] Lawrence Hayes MD [address] [place] [address] HCN - Patient Message Social [...] and Family Not on file 02/24/2025 Attends [facility] Not on file 02/24 Active Member [...] drink first t traci in the morning (EYE-DISTRICT SERVICE MANAGER) to steady your nerves or to get rid of a hangover? 0 09/10/2023 CAGE Questionnaire Score 0 024 Utilities Answer Date Recorded In the past 12 months has th e [employer], gas, oil, or water company threatened to [...] Please call to advise Best contact number: [phone] (mobile) Optimal time of day to reach [...] Description 03/27/2025 9:30 AM EDT Office Visit [facility] [address] [place] [address] Santiago Collado MD [address] [facility] [address] [place] [address] 04/07/2025 10:45 AM EDT Appointment [facility] Radiology [address], 1[address] [place] [address] 04/07/2025 11:20 AM EDT Office Visit [facility] Orthopaedic Surgery & Sports Medicine [address], [address] [place] [address] Lawrence Hayes MD [address] [facility] [address] [place] [address] documented as of this encounter [...] documented as of this encounter Care Teams Steamtable Attendant Railroad Relationship Specialty Start Date End Date Renetta Pardo APRN [address] [place] [address] [address] [place] [address] PCP - General 09/09/23 02/16/25 Blaine Nava MD [address] [place] [address] [address] [place] [address] PCP - General 02/17/25 documented as of this encounter
--- OUTSIDE RECORDS SUMMARY | 2025-03-24 12:32 | XMS_ITS | Encounter Summary ---
Author Organization Healthcare Address [address] [place] [address] Care Team Providers Care Mechatronics Technician Name Role Phone Renetta Pardo APRN Primary Care Provider [phone] Encounter Details Date Type Department Care Team (Late st Contact Info) Description 01/23/2025 Clinical Support [facility] [address] [place] [address] Sonia Meyer, PharmD Social History Tobacco Use [...] time in the past 12 m [facility], were you homeless or living in a [...] drink first t traci in the morning (EYE-GOODS LAYER) to steady your nerves or to get rid of a hangover? 0 09/10/2023 CAGE Questionnaire Score 0 024 Utilities Answer Date Recorded In the past 12 months has th e [employer], gas, oil, or water company threatened to [...] Discharge Communication: Confirmation of IV Antimicrobials Home [facility], Infusion Company [facility]; Comments ID / OPAT pharmacist called and spoke with chon Vega at [facility] to confirm orders for daptomycin 1100 mg IV every 24 hours until 03/03/25. Sonia Meyer PharmD, [facility] Clinical Pharmacist Infectious Diseases, OPAT Available via [employer] Secure Chat documented in this encounter Plan of Treatment Upcoming Encounters Date Type Department Care Team (Late st Contact Info) Description 03/27/2025 9:30 AM EDT Office Visit [facility] [address] [place] [address] Santiago Collado MD [address] [facility] [address] [place] [address] 04/07/2025 10:45 AM EDT Appointment [facility] Radiology [address], [address] [place] [address] 04/07/2025 11:20 AM EDT Office Visit [facility] Orthopaedic Surgery & Sports Medicine [address], [address] [place] [address] Lawrence Hayes MD [address] [facility] [address] [place] [address] documented as of this encounter [...] documented as of this encounter Care Teams Mechatronics Technician Relationship Specialty Start Date End Date Renetta Pardo APRN [address] [place] [address] Dr [address] [place] [address] PCP - General 09/09/23 02/16/25 documented as of this encounter
--- OUTSIDE RECORDS SUMMARY | 2025-03-24 12:32 | XMS_ITS | Encounter Summary ---
Author Organization [facility] Address [address] [place] [address] Care Team Providers Care Senior Air Director Name Role Phone Blaine Nava MD Primary Care Provider [phone] Encounter Details Date Type Department Care Team [...] drink first t traci in the morning (EYE-POCKET CREASER) to steady your nerves or to get [...] Description 03/27/2025 9:30 AM EDT Office Visit [facility] [address] [place] [address] Santiago Collado MD [address] [facility] [address] [place] [address] 04/07/2025 10:45 AM EDT Appointment [facility] Radiology [address], 1st [place] [address] 04/07/2025 11:20 AM EDT Office Visit [facility] Orthopaedic Surgery & Sports Medicine [address], [address] [place] [address] Lawrence Hayes MD [address] [place] [address] documented as of this encounter [...] documented as of this encounter Care Teams Senior Air Director Relationship Specialty Start Date End Date Blaine Nava MD [address] [place] [address] [address] [place] [address] PCP - General 02/17/25 documented as of this encounter
--- OUTSIDE RECORDS SUMMARY | 2025-03-24 12:32 | XMS_ITS | Encounter Summary ---
Author Organization Healthcare Address [address] [place] [address] Care Team Providers Care Terrazzo Installer Name Role Phone eRnetta Pardo APRN Primary Care Provider [phone] Encounter Details Date Type Department Care Team [...] time in the past [address] [facility], were you homeless or living [...] drink first t traci in the morning (EYE-ELEMENTARY SECRETARY) to steady your nerves or to get [...] Description 03/27/2025 9:30 AM EDT Office Visit [facility] [address] [place] [address] Santiago Collado MD [address] [facility] [address] [place] [address] 04/07/2025 10:45 AM EDT Appointment [facility] Radiology [address], 1st [place] [address] 04/07/2025 11:20 AM EDT Office Visit [facility] Orthopaedic Surgery & Sports Medicine [address], [address] [place] [address] Lawrence Hayes MD [address] [place] [address] documented as of this encounter Visit Diagnoses [...] documented as of this encounter Care Teams Terrazzo Installer Relationship Specialty Start Date End Date Renetta Pardo APRN [address] [place] [address] [place] [address] PCP - General 09/09/23 02/16/25 documented as of this encounter
[2025-03-24 12:33] VITALS: BMI 42.3
[2025-03-24 12:53] LABS: Hematocrit 37.9 % (42.0-52.0); Hemoglobin 12.1 g/dL (14.1-18.0); Immature Granulocytes % 0.2 %; Mean Corpuscular HGB Conc 31.9 g/dL (31.8-35.4); Mean Corpuscular Hemoglobin 29.0 pg (27.0-31.2); Mean Corpuscular Volume 90.9 fl (80-94); Nucleated Red Blood Cells % 0 %; Platelet Count 281 K/mm3 (142-424); Red Blood Count 4.17 M/mm3 (4.60-6.20); Red Cell Distribution Width-SD 44.2 fL; White Blood Count 5.6 K/mm3 (4.8-10.8)
[2025-03-24 13:24] LABS: Albumin Level 4.0 g/dl (3.5-5.0)
[2025-03-24 13:26] LABS: Bilirubin,Unconjugated 0.0 mg/dL (0.0-1.1); Blood Urea Nitrogen 13 mg/dl (9-20); Creatinine Clearance Estimated 170 mL/min (50-200); Creatinine,Serum 0.70 mg/dl (0.66-1.25); Estimated Glomerular Filt Rate 128 ml/min (>60); GFR (African American) 154 ML/MIN (>60)
[2025-03-24 13:27] LABS: Alanine Aminotransferase 28 U/L (12-78); Alkaline Phosphatase 102 U/L (38-126); Aspartate Amino Transferase 33 U/L (17-59); Bilirubin,Direct 0.2 mg/dl (0.0-0.4); Bilirubin,Indirect 0.0 mg/dL (0.0-0.9); Bilirubin,Total 0.2 mg/dl (0.2-1.3); Creatine Kinase 100 U/L (55-170); Total Protein,Serum 6.7 g/dl (6.3-8.2)
[2025-03-24 13:33] LABS: C-Reactive Protein 14.3 mg/L (0-4)
== END 2025-03-24 13:07 | disposition home or self-care (01) ==
LOC: INF 12:28
PROVIDERS: Visit Provider Orthopaedic Surgery
DX: T81.49XA Infection following a procedure, other surgical site, initial encounter (principal); X58.XXXA Exposure to other specified factors, initial encounter; Y93.9 Activity, unspecified; Y92.9 Unspecified place or not applicable
CPT/HCPCS: 36592; 80076; 82550; 82565; 84520; 85025; 86140; 96523